=== PATIENT | male | born 1955 | race Caucasian/White ===

== ENCOUNTER → 2016-06-07 | Outpatient (CLI) | payer OTHER ==
[~2016-06-07] MED LIST: ADAL40KI SQ; FERR1TAB23 PO; MELO7.5T6 PO; POTA10CA28 PO
[2016-06-07 13:50] LABS: HEMATOCRIT 17.3 % (42-52); MEAN CELL VOLUME 77.9 fL (80-100); MEAN CORPUSCULAR HEMOGLOBIN 23.9 pg (25-34); MEAN CORPUSCULAR HGB CONC 30.6 g/dl (32-36); MEAN PLATELET VOLUME 9.2 fL (7.4-10.4); PLATELET COUNT 78 K/uL (130-400); RED BLOOD COUNT 2.22 M/uL (4.7-6.1); WHITE BLOOD COUNT 3.04 K/uL (4.8-10.8)
[2016-06-07 14:15] LABS: BASO % 0.7 %; BASO ABS # 0.02 K/uL (0-0.2); COMPLETE YES; EOS % 4.3 %; GIANT PLATELETS 1+; HYPOCHROMIA PRESENT; LARGE PLATELETS 2+; LYMPH % 31.3 %; LYMPH ABS # 0.95 K/uL (1.2-3.4); MONO % 19.4 %; NEUT % 44.3 %; PLT ESTIMATE DECREASED; POLYCHROMASIA 1+; TOXIC GRANULATION 1+
== END | disposition home or self-care (01) ==
LOC: C.LABPBG 08:55
PROVIDERS: ATTEND Urology
DX: D64.9 Anemia, unspecified (principal); N20.0 Calculus of kidney; N35.9 Urethral stricture, unspecified; R33.9 Retention of urine, unspecified

== ENCOUNTER → 2016-08-02 | Day surgery (SDC) | payer OTHER ==
[2016-07-26 12:36] VITALS: Ht 175.3 cm; Wt 125.0 kg
[~2016-08-02] VITALS: Ht 175.3 cm; Wt 125.0 kg
[~2016-08-02] MED LIST changes: +ACETAMINOPHEN 325 MG TAB PO PRN; +AMVISC PLUS 0.8ML SYRINGE INT OCU ONE; +ATROPINE SULFATE 0.1 MG/ML 5ML SYR IV PRN; +BSS FLUSH ONE; +EpHEDrine SULFATE INJ 50 MG/ML AMP IV PRN; +EpINEphrine INJ 1MG/ML AMP 1 MG/ML AMP ONE; +LACTATED RINGER'S 1000ML 500 ML IV SCH; +LIDOCAINE 3.5% OPH GEL PER APPLICATION CHARGE ONE; +LIDOCAINE HCL 1% MPF 2 ML VIAL ONE; +MIDAZOLAM HCL 1 MG/ML 2ML VIAL ONE; +PHENYLEPHRINE HCL 10% OP SOLN PER DROP CHARGE OPL SCH; +POVIDONE-IODINE OP SOLN 30 ML BTL ONE; +PROPARACAINE 0.5% OP SOLN PER DROP CHARGE OPL SCH; +TOBRAMYCIN/DEXAMETHASONE OPH OINT PER APPLN CHARGE ONE
[2016-08-02] MEDS: CYCLOPENTOLATE HCL 1% OP SOLN PER DROP CHARGE OPL SCH ×2 (07:20→07:36)
[2016-08-02] MEDS: KETOROLAC 0.5% OP SOLN PER DROP CHARGE OPL SCH ×2 (07:20→07:38)
[2016-08-02] MEDS: GATIFLOXACIN OP SOLN PER DROP CHARGE OPL SCH ×2 (07:20→07:30)
[2016-08-02] MEDS: TROPICAMIDE 1% OP SOLN PER DROP CHARGE OPL SCH ×2 (07:20→07:36)
[2016-08-02] MEDS: PHENYLEPHRINE HCL 2.5% OP SOLN PER DROP CHARGE OPL SCH ×2 (07:20→07:36)
--- NOTE | 2016-08-02 07:44 | History & Physical Bridge - [place] ---
H&P Re-Evaluation Bridge Note: I have examined the patient, reviewed the History & Physical and in the interval since the performance of the History & Physical I have noted the following changes of clinical significance: No changes noted
--- NOTE | 2016-08-02 08:08 | Discharge Instructions-SurgCtr ---
Discharge Instructions Date of Service Aug 02, 2016. Visit Reason for Visit: Left Cataract Discharge Discharge Diagnosis / Problem: cataract Discharge Goals Goal(s): Improve function Activity Recommendations Activity Limitations: per Instructions/Follow-up section Anesthesia . Post Anesthesia Instructions: If you have had General Anesthesia or IV Sedation: * Do not drive today. * Resume driving when surgeon permits. * Do not make important decisions or sign legal documents today. * Call surgeon for: 1. Temperature elevations greater than 101 degrees F. 2. Uncontrollable pain. 3. Excessive bleeding. 4. Persistent nausea and vomiting. 5. Medication intolerance (nausea, vomiting or rash). * For nausea and vomiting use only clear liquids such as: tea, soda, bouillon until nausea subsides, then gradually increase diet as tolerated. * If you have any concerns or questions, call your surgeon's office. If physician is unavailable and it is an emergency, call 911 or go to the nearest emergency room. . Instructions / Follow-Up Instructions / Follow-Up ACTIVITY RECOMMENDATIONS: * No strenuous lifting, jogging or running for 4 days * No swimming or yard work for 1 week. * Limited bending is permitted, such as putting on shoes. RETURN TO SCHOOL/WORK: No work until seen by physician in office. MEDICATIONS: Resume previous medications unless instructed otherwise by your surgeon. This includes eye drops for glaucoma. Zymaxid/Gatifloxacin (de luna cap) - one drop every 2 hours until bedtime Nevanac/Ilevro/Prolensa/Ketorolac (goldberg cap) - one drop every 4 hours until bedtime Prednisolone (white/pink cap, SHAKE WELL) - one drop every 2 hours until bedtime Starting tomorrow - all 3 drops every 4 hours until seen in the office Optive drops - as needed for discomfort SPECIAL CARE INSTRUCTIONS: * Wear eyeshield when sleeping, for four nights. * You may wear your own glasses or sunglasses while awake. * You may read or watch TV * You may shower and wash your face, but be gentle around the eye and pat dry. * Blurry vision and mild irritation are normal. * Call office if pain is more severe or vision becomes dark at . FOLLOW UP VISIT: Follow-up with Dr Guevara tomorrow. Diet Recommendations Home Diet: resume previous diet Procedures Procedures Performed: Left Cataract Phacoemulsification With Intraocular Lens Implant Pending Studies Studies pending at discharge: no Medical Emergencies . Who to Call and When: Medical Emergencies: If at any time you feel your situation is an emergency, please call 911 immediately. . Non-Emergent Contact Non-Emergency issues call your: Graduation Coach . . "Provider Documentation" section prepared by Dirk Guevara. .
--- NOTE | 2016-08-02 08:09 | [facility] Operative Report ---
Operative Report Date of Service Aug 02, 2016. Operative Report 1. PREOPERATIVE DIAGNOSIS: Cataract of the left eye. 2. POSTOPERATIVE DIAGNOSIS: Same. 3. PROCEDURE: Phacoemulsification with intraocular lens implantation of the left eye. SURGEON: Dr. Dirk Guevara. ANESTHESIA: Topical Lidocaine gel, 1% Non- Preserved intracameral Lidocaine, and monitored intravenous sedation. INDICATIONS FOR THE PROCEDURE: The patient is a 61 - year-old male with a history of cataract of the left eye causing significant visual impairment. The details of the proposed procedure were explained to the patient who asked appropriate questions and following discussion of all risks, benefits and alternatives agreed to have the procedure done. 4. OPERATION AND FINDINGS: DESCRIPTION OF PROCEDURE: After informed consent was obtained, the patient was brought to the Operating Room at the [facility]. The patient was placed in a supine position and then the left eye was prepped and draped in the usual sterile fashion for intraocular surgery. A drop of topical Lidocaine gel was placed in the operative eye. A wire lid speculum was then placed in the fornices. A corneal paracentesis was then created temporally. The Non-Preserved Lidocaine was then instilled into the anterior chamber. The anterior chamber was then pressurized with viscoelastic. A 2.0 mm clear corneal incision was then created temporally. A cystotome was inserted into the anterior chamber and used to create a tear in the anterior lens capsule. This capsular tear was then used to create a small flap and the flap was dragged in a counterclockwise direction in order to create a continuous curvilinear capsulorrhexis. Hydrodissection was accomplished with balanced salt solution. Phacoemulsification of the lens nucleus was then performed in a standard [id number] technique. The phaco time was 14 seconds with an average power of 9 %. The remaining cortical material was removed using irrigation aspiration. The capsular bag was then filled with viscoelastic. A Bausch & Lomb MI60L +22.0 diopters lens was then loaded into the injector and injected into the capsular bag. The remaining viscoelastic was removed with the irrigation aspiration handpiece. The wound was hydrated and then checked and found to be watertight. The intraocular pressure was checked and found to be adequate. The wire lid speculum was removed and the patient's face was cleaned and dried. TobraDex ointment was placed in the inferior fornix. The patient was discharged to the Recovery Room having tolerated the procedure well. There were no complications. The patient will be seen tomorrow in the office for follow-up. I attest to the content of the Intraoperative Record and any orders documented therein. Any exceptions are noted below.
[2016-08-02 08:43] VITALS: BP 157/82; PULSE 65; TEMP 36.7; O2SAT 98
--- NOTE | 2016-08-02 09:15 | Anesthesia Progress Nt - [facility] ---
Anesthesia Post Op Note Date & Time Aug 02, 2016 at 09:15 Vital Signs Pain Intensity: 0 Vital Signs Past 12 Hours Date Time Temp Pulse Resp B/P (MAP) Pulse Ox O2 Delivery O2 Flow Rate FiO2 08/02/16 08:43 36.7 65 16 157/82 (107) 98 Room Air 08/02/16 08:12 36.7 75 14 146/79 (101) 99 Room Air 08/02/16 07:02 36.9 79 16 159/92 (114) 98 Room Air Notes Mental Status: alert / awake / arousable, participated in evaluation Pt Amnestic to Procedure: Yes Nausea / Vomiting: adequately controlled Pain: adequately controlled Airway Patency, RR, SpO2: stable & adequate BP & HR: stable & adequate Hydration State: stable & adequate Anesthetic Complications: no major complications apparent
== END | disposition home or self-care (01) ==
LOC: X.SURG 06:31
PROVIDERS: ATTEND Ophthalmology
DX: H26.9 Unspecified cataract (principal); K74.60 Unspecified cirrhosis of liver; M06.9 Rheumatoid arthritis, unspecified; K21.9 Gastro-esophageal reflux disease without esophagitis; D64.9 Anemia, unspecified; M19.90 Unspecified osteoarthritis, unspecified site; Z79.899 Other long term (current) drug therapy

== ENCOUNTER → 2016-08-13 | Outpatient (CLI) | payer OTHER ==
--- NOTE | 2016-08-02 08:12 | Anesthesia Progress Nt - [facility] ---
Anesthesia Post Op Note Date & Time Aug 02, 2016 at 08:12 Notes Mental Status: alert / awake / arousable, participated in evaluation Pt Amnestic to Procedure: Yes Nausea / Vomiting: adequately controlled Pain: adequately controlled Airway Patency, RR, SpO2: stable & adequate BP & HR: stable & adequate Hydration State: stable & adequate Anesthetic Complications: no major complications apparent
[~2016-08-13] MED LIST changes: -ACETAMINOPHEN 325 MG TAB PO PRN; -AMVISC PLUS 0.8ML SYRINGE INT OCU ONE; -ATROPINE SULFATE 0.1 MG/ML 5ML SYR IV PRN; -BSS FLUSH ONE; -EpHEDrine SULFATE INJ 50 MG/ML AMP IV PRN; -EpINEphrine INJ 1MG/ML AMP 1 MG/ML AMP ONE; -LACTATED RINGER'S 1000ML 500 ML IV SCH; -LIDOCAINE 3.5% OPH GEL PER APPLICATION CHARGE ONE; -LIDOCAINE HCL 1% MPF 2 ML VIAL ONE; -MIDAZOLAM HCL 1 MG/ML 2ML VIAL ONE; -PHENYLEPHRINE HCL 10% OP SOLN PER DROP CHARGE OPL SCH; -POVIDONE-IODINE OP SOLN 30 ML BTL ONE; -PROPARACAINE 0.5% OP SOLN PER DROP CHARGE OPL SCH; -TOBRAMYCIN/DEXAMETHASONE OPH OINT PER APPLN CHARGE ONE
--- NOTE | 2016-08-13 14:01 | DIAGNOSTIC IMAGING REPORT ---
VOIDING CYSTOURETHROGRAM CLINICAL HISTORY: R33.9ureteral stricture COMPARISON STUDY: None FLUOROSCOPY TIME: 0.2 minutes. FINDINGS: Patient by history has had prior reconstructive surgery and/or prior urethrograms at outside institution. These are not available for comparison. Study is performed via the patient's suprapubic catheter. There is mild reflux of the right to lesser extent left ureter. The proximal and prosthetic portion of the ureter is unremarkable. The findings of mild irregularity of the bulbous portion of the urethra possibly with a diverticulum as juncture with the patient now component of the regional. The urethral contrast column is small which may be secondary to a low flow state and/or post structural change. IMPRESSION: 1. Small caliber urethra possibly secondary to a mid urethral and/or immediate post bulbar stricture. 2. Possible small diverticulum of the distal bulbar urethra. 3. Mild irregularity of the contrast column of the bulbous portion of the of the urethra. 4. Mild vesicoureteral reflux on the right and to a lesser extent left. Electronically signed by: Rob Hummel M.D. 08/13/2016 1:59 PM Dictated Date/Time: 08/13/2016 1:51 PM
== END | disposition home or self-care (01) ==
LOC: C.RAD 12:21
PROVIDERS: ATTEND Urology
DX: R33.9 Retention of urine, unspecified (principal); N35.9 Urethral stricture, unspecified; N39.0 Urinary tract infection, site not specified

== ENCOUNTER → 2016-09-11 | Day surgery (SDC) | payer OTHER ==
[2016-08-15 11:03] VITALS: Ht 175.3 cm; Wt 125.0 kg
[~2016-09-11] VITALS: Ht 175.3 cm; Wt 125.0 kg
[~2016-09-11] MED LIST changes: +500ML BSS 0.3ML EPI 1:1000PF IRRIG ONE; +ACETAMINOPHEN 325 MG TAB PO PRN; +AMVISC PLUS 0.8ML SYRINGE INT OCU ONE; +ATROPINE SULFATE 0.1 MG/ML 5ML SYR IV PRN; +BSS FLUSH ONE; +EpHEDrine SULFATE INJ 50 MG/ML AMP IV PRN; +EpINEphrine INJ 1MG/ML AMP 1 MG/ML AMP ONE; +LACTATED RINGER'S 1000ML 500 ML IV SCH; +LIDOCAINE 3.5% OPH GEL PER APPLICATION CHARGE ONE; +LIDOCAINE HCL 1% MPF 2 ML VIAL ONE; +MIDAZOLAM HCL 1 MG/ML 2ML VIAL ONE; +MIX: 4ML BSS 1ML EPI 1:1000 PF INSTIL ONE; +OCUCOAT 1 ML SOLN IO ONE; +ONDANSETRON INJ 2 MG/ML 2 ML VIAL IV PRN; +PHENYLEPHRINE HCL 10% OP SOLN PER DROP CHARGE OPR SCH; +POVIDONE-IODINE OP SOLN 30 ML BTL ONE; +PROPARACAINE 0.5% OP SOLN PER DROP CHARGE OPR SCH; +TOBRAMYCIN/DEXAMETHASONE OPH OINT PER APPLN CHARGE ONE
[2016-09-11] MEDS: PHENYLEPHRINE HCL 2.5% OP SOLN PER DROP CHARGE OPR SCH ×2 (12:02→12:08)
[2016-09-11] MEDS: TROPICAMIDE 1% OP SOLN PER DROP CHARGE OPR SCH ×2 (12:03→12:09)
[2016-09-11] MEDS: CYCLOPENTOLATE HCL 1% OP SOLN PER DROP CHARGE OPR SCH ×2 (12:04→12:10)
[2016-09-11] MEDS: KETOROLAC 0.5% OP SOLN PER DROP CHARGE OPR SCH ×2 (12:05→12:11)
[2016-09-11] MEDS: GATIFLOXACIN OP SOLN PER DROP CHARGE OPR SCH ×2 (12:06→12:18)
--- NOTE | 2016-09-11 13:23 | Discharge Instructions-SurgCtr ---
Discharge Instructions Date of Service Sep 11, 2016. Visit Reason for Visit: Cataract Right Eye Discharge Discharge Diagnosis / Problem: cataract Discharge Goals Goal(s): Improve function Activity Recommendations Activity Limitations: per Instructions/Follow-up section Anesthesia . Post Anesthesia Instructions: If you have had General Anesthesia or IV Sedation: * Do not drive today. * Resume driving when surgeon permits. * Do not make important decisions or sign legal documents today. * Call surgeon for: 1. Temperature elevations greater than 101 degrees F. 2. Uncontrollable pain. 3. Excessive bleeding. 4. Persistent nausea and vomiting. 5. Medication intolerance (nausea, vomiting or rash). * For nausea and vomiting use only clear liquids such as: tea, soda, bouillon until nausea subsides, then gradually increase diet as tolerated. * If you have any concerns or questions, call your surgeon's office. If physician is unavailable and it is an emergency, call 911 or go to the nearest emergency room. . Instructions / Follow-Up Instructions / Follow-Up ACTIVITY RECOMMENDATIONS: * No strenuous lifting, jogging or running for 4 days * No swimming or yard work for 1 week. * Limited bending is permitted, such as putting on shoes. RETURN TO SCHOOL/WORK: No work until seen by physician in office. MEDICATIONS: Resume previous medications unless instructed otherwise by your surgeon. This includes eye drops for glaucoma. Zymaxid/Gatifloxacin (de luna cap) - one drop every 2 hours until bedtime Nevanac/Ilevro/Prolensa/Ketorolac (goldberg cap) - one drop every 4 hours until bedtime Prednisolone/Durezol (white/pink cap, SHAKE WELL) - one drop every 2 hours until bedtime Starting tomorrow - all 3 drops every 4 hours until seen in the office Optive drops - as needed for discomfort SPECIAL CARE INSTRUCTIONS: * Wear eyeshield when sleeping, for four nights. * You may wear your own glasses or sunglasses while awake. * You may read or watch TV * You may shower and wash your face, but be gentle around the eye and pat dry. * Blurry vision and mild irritation are normal. * Call office if pain is more severe or vision becomes dark at . FOLLOW UP VISIT: Follow-up with Dr Guevara tomorrow. Diet Recommendations Home Diet: resume previous diet Procedures Procedures Performed: Right Cataract Phacoemulsification With Intraocular Lens Implant Pending Studies Studies pending at discharge: no Medical Emergencies . Who to Call and When: Medical Emergencies: If at any time you feel your situation is an emergency, please call 911 immediately. . Non-Emergent Contact Non-Emergency issues call your: Rack Loader . . "Provider Documentation" section prepared by Dirk Guevara. .
--- NOTE | 2016-09-11 13:24 | [facility] Operative Report ---
Operative Report Date of Service Sep 11, 2016. Operative Report 1. PREOPERATIVE DIAGNOSIS: Cataract of the right eye. 2. POSTOPERATIVE DIAGNOSIS: Same. 3. PROCEDURE: Phacoemulsification with intraocular lens implantation of the right eye. SURGEON: Dr. Dirk Guevara. ANESTHESIA: Topical Lidocaine gel, 1% Non- Preserved intracameral Lidocaine, and monitored intravenous sedation. INDICATIONS FOR THE PROCEDURE: The patient is a 61 - year-old male with a history of cataract of the right eye causing significant visual impairment. The details of the proposed procedure were explained to the patient who asked appropriate questions and following discussion of all risks, benefits and alternatives agreed to have the procedure done. 4. OPERATION AND FINDINGS: DESCRIPTION OF PROCEDURE: After informed consent was obtained, the patient was brought to the Operating Room at the [facility]. The patient was placed in a supine position and then the right eye was prepped and draped in the usual sterile fashion for intraocular surgery. A drop of topical Lidocaine gel was placed in the operative eye. A wire lid speculum was then placed in the fornices. A corneal paracentesis was then created temporally. The Non-Preserved Lidocaine was then instilled into the anterior chamber. The anterior chamber was then pressurized with viscoelastic. A 2.0 mm clear corneal incision was then created temporally. A cystotome was inserted into the anterior chamber and used to create a tear in the anterior lens capsule. This capsular tear was then used to create a small flap and the flap was dragged in a counterclockwise direction in order to create a continuous curvilinear capsulorrhexis. Hydrodissection was accomplished with balanced salt solution. Phacoemulsification of the lens nucleus was then performed in a standard [id number] technique. The phaco time was 13 seconds with an average power of 11 %. The remaining cortical material was removed using irrigation aspiration. The capsular bag was then filled with viscoelastic. A Bausch & Lomb MI60L +22.5 diopters lens was then loaded into the injector and injected into the capsular bag. The remaining viscoelastic was removed with the irrigation aspiration handpiece. The wound was hydrated and then checked and found to be watertight. The intraocular pressure was checked and found to be adequate. The wire lid speculum was removed and the patient's face was cleaned and dried. TobraDex ointment was placed in the inferior fornix. The patient was discharged to the Recovery Room having tolerated the procedure well. There were no complications. The patient will be seen tomorrow in the office for follow-up. I attest to the content of the Intraoperative Record and any orders documented therein. Any exceptions are noted below.
[2016-09-11 13:25] VITALS: TEMP 36.9
--- NOTE | 2016-09-11 13:32 | Anesthesia Progress Nt - [facility] ---
Anesthesia Post Op Note Date & Time Sep 11, 2016 at 13:31 Vital Signs Pain Intensity: 0 Vital Signs Past 12 Hours Date Time Temp Pulse Resp B/P (MAP) Pulse Ox O2 Delivery O2 Flow Rate FiO2 09/11/16 11:56 36.7 70 22 107/63 (78) 97 Room Air Notes Mental Status: alert / awake / arousable, participated in evaluation Pt Amnestic to Procedure: Yes Nausea / Vomiting: adequately controlled Pain: adequately controlled Airway Patency, RR, SpO2: stable & adequate BP & HR: stable & adequate Hydration State: stable & adequate Anesthetic Complications: no major complications apparent
[2016-09-11 13:48] VITALS: BP 127/80; PULSE 65; O2SAT 98
== END | disposition home or self-care (01) ==
LOC: X.SURG 10:33
PROVIDERS: ATTEND Ophthalmology
DX: H26.9 Unspecified cataract (principal); I10 Essential (primary) hypertension; M48.00 Spinal stenosis, site unspecified; Z87.442 Personal history of urinary calculi

== ENCOUNTER → 2016-09-13 | Outpatient (CLI) | payer OTHER ==
[~2016-09-13] MED LIST changes: -500ML BSS 0.3ML EPI 1:1000PF IRRIG ONE; -ACETAMINOPHEN 325 MG TAB PO PRN; -AMVISC PLUS 0.8ML SYRINGE INT OCU ONE; -ATROPINE SULFATE 0.1 MG/ML 5ML SYR IV PRN; -BSS FLUSH ONE; -EpHEDrine SULFATE INJ 50 MG/ML AMP IV PRN; -EpINEphrine INJ 1MG/ML AMP 1 MG/ML AMP ONE; -LACTATED RINGER'S 1000ML 500 ML IV SCH; -LIDOCAINE 3.5% OPH GEL PER APPLICATION CHARGE ONE; -LIDOCAINE HCL 1% MPF 2 ML VIAL ONE; -MIDAZOLAM HCL 1 MG/ML 2ML VIAL ONE; -MIX: 4ML BSS 1ML EPI 1:1000 PF INSTIL ONE; -OCUCOAT 1 ML SOLN IO ONE; -ONDANSETRON INJ 2 MG/ML 2 ML VIAL IV PRN; -PHENYLEPHRINE HCL 10% OP SOLN PER DROP CHARGE OPR SCH; -POVIDONE-IODINE OP SOLN 30 ML BTL ONE; -PROPARACAINE 0.5% OP SOLN PER DROP CHARGE OPR SCH; -TOBRAMYCIN/DEXAMETHASONE OPH OINT PER APPLN CHARGE ONE
== END | disposition home or self-care (01) ==
LOC: C.LABSPEC 14:29
PROVIDERS: ATTEND Urology
DX: N39.0 Urinary tract infection, site not specified (principal)

== ENCOUNTER 2017-03-17 22:44 | Emergency (ER) | payer OTHER ==
[~2017-03-17] VITALS: Ht 172.7 cm; Wt 106.1 kg
[~2017-03-17 22:44] MED LIST changes: +CHLO0.122 PO; +SULF800T23 PO
[2017-03-17 22:48] VITALS: TEMP 36.7; Ht 172.7 cm; Wt 106.1 kg
[2017-03-17] MEDS ORDERED: SODIUM CHLORIDE 0.9% 500ML 500 ML IV STA (23:09)
[2017-03-17] MEDS ORDERED: SENN-65 PO (23:10)
[2017-03-17] MEDS ORDERED: OXYC1TAB3 PO (23:11)
[2017-03-17] MEDS ORDERED: CALC-51 PO (23:13)
[2017-03-17] MEDS ORDERED: ADAL20KI INJ (23:14)
[2017-03-17] MEDS ORDERED: PRLSR20 PO (23:14)
[2017-03-17] MEDS ORDERED: MELO15TA4 PO (23:15)
[2017-03-17] MEDS ORDERED: FRS/40 PO (23:15)
[2017-03-17] MEDS ORDERED: LISI-729 PO (23:15)
[2017-03-17] MEDS ORDERED: TRAM-10 PO (23:16)
[2017-03-17] MEDS ORDERED: POTA10CA28 PO (23:23)
--- NOTE | 2017-03-17 23:46 | EMERGENCY ROOM VISIT NOTE ---
History Report prepared by Kylie: Mary Del Toro Under the Supervision of: Dr. Lili Cruz M.D. First contact with patient: 22:51 Chief Complaint: CATHETER REPLACEMENT Stated Complaint: S/P SURGERY, CATHETER IS BLOCKED History of Present Illness The patient is a 61 year old male who presents to the Emergency Room with complaints of episodic catheter obstruction for seven hours. The patient recently had a urethroplasty March 06, 2017. He had the surgery because he was having difficulty urinating. He stated his urethra was obstructed by scar tissue and needed reconstruction. He has a suprapubic tube and a Madrigal catheter in place and states that he is unable to fully void. He states that it was draining normally 7 hours ago and has not been draining well since then. He feels pressure building up from his catheter. He notes mild abdominal pain. He currently rates his discomfort a 3/10 in severity. He notes that he is expected to have the tubes removed March 27, 2017. He denies any fevers. Source of History: patient Onset: seven hours Position: other (global ) Symptom Intensity: 3/10 Quality: other (catheter obstruction) Timing: other (episodic ) Associated Symptoms: + abdominal pain (mild), No fevers Note: He notes pressure build up due to the catheter. Review of Systems See HPI for pertinent positives & negatives. A total of 10 systems reviewed and were otherwise negative. Past Medical & Surgical Medical Problems: (1) urethroplasty Family History Family history was reviewed; no changes noted. Social History Smoking Status: Current Every Day Smoker Smokeless Tobacco Use: Yes Alcohol Use: occasionally Marital Status: Housing Status: lives with significant other Occupation Status: unemployed Current/Historical Medications Scheduled Adalimumab (Humira), INJ twice monthly Chlorhexidine Gluconate (Mouth (Periogard), 15 ML PO Q4 Ferrous Sulfate (Iron), 1 TAB PO DAILY Furosemide (Lasix), 40 MG PO DAILY Lisinopril (Prinivil), 5 MG PO DAILY Meloxicam (Mobic), 15 MG PO DAILY Omeprazole (Prilosec), 20 MG PO DAILY Potassium Chloride (Micro-K Ext Rel), 10 MEQ PO DAILY Senna/Docusate Sod (Senokot S), 1 TAB PO DAILY Sulfa/Trimethoprim (Bactrim Ds 800MG/160MG), 1 TAB PO DAILY Allergies Coded Allergies: Tamsulosin (Verified Allergy, Mild, HIVES, 03/17/17) Physical Exam Vital Signs Date Time Temp Pulse Resp B/P (MAP) Pulse Ox O2 Delivery O2 Flow Rate FiO2 03/18/17 00:51 85 16 112/59 100 03/17/17 22:48 36.7 112 16 103/70 100 Room Air Physical Exam Vital signs reviewed. General: Elderly-appearing, in no significant distress. Obese. HEENT: No scleral icterus, PERRLA, neck supple. Atraumatic. Cardiovascular: Regular rate and rhythm, no extra sounds. Pulmonary: Clear to auscultation bilaterally, normal work of breathing. Abdomen: Soft, nontender, nondistended, positive bowel sounds. Suprapubic catheter in pannicular fold. Musculoskeletal: Atraumatic, no peripheral edema. Neurologic: Patient awake alert and oriented x 3. Skin: Warm, dry, no rash : Normal external male genitalia. Circumcised. No discharge or lesions appreciated. Testes palpated bilaterally and nontender. No swelling to the scrotum appreciated. Madrigal catheter in place, which is clamped. Medical Decision & Procedures Laboratory Results 03/17/17 23:26 Red Blood Count 2.93, Mean Corpuscular Volume 96.6, Mean Corpuscular Hemoglobin 32.8, Mean Corpuscular Hemoglobin Concent 33.9, Mean Platelet Volume 9.0, Neutrophils (%) (Auto) 51.6, Lymphocytes (%) (Auto) 30.3, Monocytes (%) (Auto) 12.2, Eosinophils (%) (Auto) 5.3, Basophils (%) (Auto) 0.4, Neutrophils # (Auto ) 2.31, Lymphocytes # (Auto) 1.36, Monocytes # (Auto) 0.55, Eosinophils # (Auto ) 0.24, Basophils # (Auto) 0.02 03/17/17 23:26 Test 03/17/17 23:26 03/17/17 23:45 White Blood Count 4.49 K/uL (4.8-10.8) Red Blood Count 2.93 M/uL (4.7-6.1) Hemoglobin 9.6 g/dL (14.0-18.0) Hematocrit 28.3 % (42-52) Mean Corpuscular Volume 96.6 fL (80-100) Mean Corpuscular Hemoglobin 32.8 pg (25-34) Mean Corpuscular Hemoglobin Concent 33.9 g/dl (32-36) Platelet Count 87 K/uL (130-400) Mean Platelet Volume 9.0 fL (7.4-10.4) Neutrophils (%) (Auto) 51.6 % Lymphocytes (%) (Auto) 30.3 % Monocytes (%) (Auto) 12.2 % Eosinophils (%) (Auto) 5.3 % Basophils (%) (Auto) 0.4 % Neutrophils # (Auto) 2.31 K/uL (1.4-6.5) Lymphocytes # (Auto) 1.36 K/uL (1.2-3.4) Monocytes # (Auto) 0.55 K/uL (0.11-0.59) Eosinophils # (Auto) 0.24 K/uL (0-0.5) Basophils # (Auto) 0.02 K/uL (0-0.2) RDW Standard Deviation 51.2 fL (36.4-46.3) RDW Coefficient of Variation 14.4 % (11.5-14.5) Immature Granulocyte % (Auto) 0.2 % Immature Granulocyte # (Auto) 0.01 K/uL (0.00-0.02) Platelet Estimate DECREASED Anion Gap 8.0 mmol/L (3-11) Est Creatinine Clear Calc Drug Dose 54.8 ml/min Estimated GFR () 50.8 Estimated GFR (Non- 43.8 BUN/Creatinine Ratio 11.6 (10-20) Calcium Level 8.9 mg/dl (8.5-10.1) Total Bilirubin 0.5 mg/dl (0.2-1) Direct Bilirubin 0.2 mg/dl (0-0.2) Aspartate Amino Transf (AST/SGOT) 32 U/L (15-37) Alanine Aminotransferase (ALT/SGPT) 31 U/L (12-78) Alkaline Phosphatase 100 U/L (45-117) Total Protein 6.5 gm/dl (6.4-8.2) Albumin 2.5 gm/dl (3.4-5.0) Urine Color DK YELLOW Urine Appearance CLOUDY (CLEAR) Urine pH 6.0 (4.5-7.5) Urine Specific [place] 1.024 (1.000-1.030) Urine Protein TRACE (NEG) Urine Glucose (UA) NEG (NEG) Urine Ketones TRACE (NEG) Urine Occult Blood 1+ (NEG) Urine Nitrite NEG (NEG) Urine Bilirubin NEG (NEG) Urine Urobilinogen NEG (NEG) Urine Leukocyte Esterase LARGE (NEG) Urine WBC (Auto) >30 /hpf (0-5) Urine RBC (Auto) 0-4 /hpf (0-4) Urine Hyaline Casts (Auto) 1-5 /lpf (0-5) Urine Epithelial Cells (Auto) 10-20 /lpf (0-5) Urine Bacteria (Auto) NEG (NEG) Urine Yeast (Auto) BUD W/ HYPHAE (NONE PRSENT) Laboratory results per my review. Medications Administered Medications (Trade) Dose Ordered Sig/Min Route Start Time Stop Time Status Last Admin Dose Admin Sodium Chloride 500 ml @ 999 mls/hr Q31M STAT IV 03/17/17 23:09 03/17/17 23:39 DC 03/17/17 23:39 999 MLS/HR ED Course 2253: Past medical records reviewed. The patient was evaluated in room C8. A complete history and physical examination was performed. 2309: Ordered 500 ml @ 999 mls/hr IV 0025: I reassessed the patient at this time. He is was able to void urine without issue. He is feeling better and resting comfortably. I discussed the results and treatment plan with the patient. I answered all pertaining questions that he had. He expressed understanding and verbalized agreement. The patient will be discharged home. Medical Decision The patient is a 61 year old male who presents to the ED with complaints of catheter obstruction. Differentials include UTI, dehydration, dysfunctional catheter, and renal failure This patient was evaluated and appeared to be in no significant distress. IV access was obtained and laboratory work was drawn. A bladder scan was performed without significant bladder distention. Patient's suprapubic catheter was irrigated and according to nursing staff this was accomplished without difficulty. Laboratory work reveals an acute on chronic renal insufficiency. Patient's medication list reveals a new prescription for Bactrim which she has been taking prophylactically since surgery as well as mobic and Lasix. I suspect the combination of the 3 medications has been hard on his renal function. The patient was advised to stop the mobic. The patient' s UA is questionable for infection. There are greater than 30 WBCs however this is from a suprapubic catheter that has been in for better than 3 years. The patient is afebrile and has a normal white blood cell count. He was hydrated with 500 mL of normal saline solution. As he has been on the Bactrim for 2 weeks, the UA will be sent for culture prior to any change in antibiotic regimen. The patient felt comfortable with this plan. He was feeling somewhat better at the time my reevaluation. He describes a "squishy" sensation near the suprapubic catheter, but this has been ongoing for some time. He does not feel that this is new today. I do not feel that imaging is warranted this evening. He will be discharged to care of his and will continue with catheter care. He will follow-up with urology by phone this week and return to the ER for worsening of symptoms or any medical concerns. Medication Reconcilliation Current Medication List: was personally reviewed by me Blood Pressure Screening Patient's blood pressure: Normal blood pressure Impression Primary Impression: Renal insufficiency Additional Impression: Complication of catheter Scribe Attestation The scribe's documentation has been prepared under my direction and personally reviewed by me in its entirety. I confirm that the note above accurately reflects all work, treatment, procedures, and medical decision making performed by me. Departure Information Dispostion Home / Self-Care Referrals Norris Truong PA-C (PCP) Forms HOME CARE DOCUMENTATION FORM, IMPORTANT VISIT INFORMATION Patient Instructions My [facility] Additional Instructions Diagnosis: Renal insufficiency, catheter complication Please drink plenty of clear fluids. Discontinue Mobic, at least short-term. Continue your medications otherwise as prescribed. Follow-up with urology this week for reevaluation. Return to the ER for worsening of symptoms or any medical concerns. Problem Qualifiers
[2017-03-18] LABS: ALBUMIN 2.5 gm/dl (3.4-5.0); CALCIUM 8.9 mg/dl (8.5-10.1); CREATININE 1.65 mg/dl (0.60-1.40); POTASSIUM 4.4 mmol/L (3.5-5.1)
[2017-03-18 00:03] LABS: TOTAL PROTEIN 6.5 gm/dl (6.4-8.2)
[2017-03-18 00:05] LABS: HEMATOCRIT 28.3 % (42-52); HEMOGLOBIN 9.6 g/dL (14.0-18.0); MEAN CELL VOLUME 96.6 fL (80-100); MEAN CORPUSCULAR HEMOGLOBIN 32.8 pg (25-34); MEAN CORPUSCULAR HGB CONC 33.9 g/dl (32-36); PLATELET COUNT 87 K/uL (130-400); RED CELL DISTRIBUTION WIDTH CV 14.4 % (11.5-14.5); RED CELL DISTRIBUTION WIDTH SD 51.2 fL (36.4-46.3); WHITE BLOOD COUNT 4.49 K/uL (4.8-10.8)
[2017-03-18 00:06] LABS: BASO % 0.4 %; BASO ABS # 0.02 K/uL (0-0.2); EOS % 5.3 %; EOS ABS # 0.24 K/uL (0-0.5); IG# 0.01 K/uL (0.00-0.02); LYMPH % 30.3 %; LYMPH ABS # 1.36 K/uL (1.2-3.4); MONO % 12.2 %; MONO ABS # 0.55 K/uL (0.11-0.59); NEUT % 51.6 %; NEUT ABS # 2.31 K/uL (1.4-6.5)
[2017-03-18 00:51] VITALS: BP 112/59; PULSE 85; O2SAT 100
== END 2017-03-18 01:07 | disposition home or self-care (01) ==
LOC: C.EDB 22:45 → C.EDC 03-18 01:07
DX: N28.9 Disorder of kidney and ureter, unspecified (principal); Z96.0 Presence of urogenital implants; Z79.899 Other long term (current) drug therapy; F17.200 Nicotine dependence, unspecified, uncomplicated

== ENCOUNTER 2017-04-04 15:55 | Inpatient (IN) | payer OTHER ==
[~2017-04-04] VITALS: Ht 172.7 cm; Wt 143.3 kg
[~2017-04-04 15:55] MED LIST changes: +ADAL20KI INJ; -ADAL40KI SQ; +FRS/40 PO; +LISI-729 PO; +MELO-84 PO; -MELO7.5T6 PO; +PRLSR20 PO; +SENN-65 PO
[2017-04-04] MEDS ORDERED: SODIUM CHLORIDE 0.9% 1000ML 1,000 ML IV ONE (16:08)
[2017-04-04] MEDS ORDERED: VANCOMYCIN INJ 2,000 MG in SODIUM CHLORIDE 0.9% 500ML 500 ML IV STA (16:20)
[2017-04-04] MEDS ORDERED: LEVAQUIN 750MG / 150ML D5W IV STA (16:20)
--- NOTE | 2017-04-04 16:24 | EMERGENCY ROOM VISIT NOTE ---
History Report prepared by Kylie: Nico Ham Under the Supervision of: Dr. Dc Foley D.O. First contact with patient: 16:05 Chief Complaint: FEVER Stated Complaint: FEVER AND SICK History of Present Illness The patient is a 61 year old male who presents to the Emergency Room with complaints of constant weakness that began two days ago. He rates his discomfort as an 8/10 in severity. The patient states that two days ago, he started to experience weakness and chest pain. He reports that over the last couple of days he started to develop a fever and experienced diarrhea. The patient states that he has also been experiencing a mild cough. He denies nausea , vomiting, rhinorrhea, leg swelling, and taking blood thinners. The patient states that he has a history of urinary difficulties, which he had reconstructive surgery of the urethra and a bladder stent placement for. He states that he is currently taking Bactrim from his recent surgery. The patient states that he has a suprapubic catheter. Source of History: patient Onset: two days ago Position: other (global) Symptom Intensity: 8/10 Timing: constant Associated Symptoms: + fevers, + cough, + chest pain, + diarrhea, No nausea , No vomiting Review of Systems See HPI for pertinent positives & negatives. A total of 10 systems reviewed and were otherwise negative. Past Medical & Surgical Medical Problems: (1) Sepsis (2) urethroplasty Family History Cancer Diabetes mellitus Heart disease Hypertension Kidney disease Kidney stones Lung disease Social History Smoking Status: Never Smoker Alcohol Use: occasionally Marital Status: Housing Status: lives with significant other Occupation Status: unemployed Current/Historical Medications Scheduled Adalimumab (Humira), 20 MG INJ twice monthly Chlorhexidine Gluconate (Mouth (Periogard), 15 ML PO Q4 Ferrous Sulfate (Iron), 1 TAB PO QAM Furosemide (Lasix), 40 MG PO QAM Lisinopril (Prinivil), 5 MG PO QAM Meloxicam (Mobic), 15 MG PO DAILY Omeprazole (Prilosec), 20 MG PO QAM Potassium Chloride (Micro-K Ext Rel), 10 MEQ PO HS Sulfa/Trimethoprim (Bactrim Ds 800MG/160MG), 1 TAB PO QAM Scheduled PRN Senna/Docusate Sod (Senokot S), 1 TAB PO DAILY PRN for Constipation Allergies Coded Allergies: Tamsulosin (Verified Allergy, Mild, HIVES, 2/8/18) Physical Exam Vital Signs Date Time Temp Pulse Resp B/P (MAP) Pulse Ox O2 Delivery O2 Flow Rate FiO2 04/04/17 18:48 38.2 123 20 74/35 94 Room Air 04/04/17 17:55 129 22 85/40 94 Room Air 04/04/17 17:40 135 22 104/38 93 Room Air 04/04/17 17:25 139 22 92/49 94 Room Air 04/04/17 17:21 104/47 04/04/17 17:10 38.1 140 22 104/47 95 Room Air 04/04/17 16:53 132 20 111/50 04/04/17 16:41 94 Room Air 04/04/17 16:40 131 22 97/45 96 Room Air 04/04/17 16:39 92/39 04/04/17 16:28 120 04/04/17 16:19 96/39 04/04/17 15:59 38.0 124 24 61/33 91 Room Air Physical Exam GENERAL: Patient is awake, alert, and in no acute distress. Patient is resting comfortably and showing no signs of anxiety EYES: The conjunctivae are clear. The pupils are round and reactive. EARS, NOSE, MOUTH AND THROAT: The nose is without any evidence of any deformity. Mucous membranes are moist tongue is midline NECK: The neck is nontender and supple. RESPIRATORY: Normal respiratory effort is noted there is no evidence of wheezing rhonchi or rales CARDIOVASCULAR: Regular rate and rhythm noted there no murmurs rubs or gallops normal S1 normal S2 GASTROINTESTINAL: The abdomen is soft. Bowel sounds are present in all quadrants. Abdomen is nontender PELVIS: The Pelvis is stable. No tenderness to palpation is noted. BACK: No midline tenderness or or step-off noted range of motion in flexion extension as well as rotation no signs of muscle spasm noted MUSCULOSKELETAL/EXTREMITIES: There is no evidence of gross deformity full range of motion is noted in the hips and shoulders SKIN: There is no obvious evidence of any rash. There are no petechiae, pallor or cyanosis noted. NEUROLOGIC: Patient is awake alert and oriented x3 strength is symmetric patellar reflexes are 2+ bilaterally Medical Decision & Procedures ER Provider Diagnostic Interpretation: Radiology results as stated below per my review and radiologist interpretation: CHEST ONE VIEW PORTABLE CLINICAL HISTORY: 61 years-old Male presenting with Sepsis. TECHNIQUE: Portable supine AP view of the chest was obtained. COMPARISON: None. FINDINGS: Atherosclerosis of aortic arch. Cardiac silhouette enlarged. Low lung volumes. Minimal bandlike opacities at the left lung base. Few nodular opacities at the right lung base. Pulmonary vascular prominence. Bronchial wall thickening. No large effusion or pneumothorax. Degenerative changes of the thoracic spine. Cholecystectomy clips noted. IMPRESSION: 1. Mildly low lung volumes with hypoventilatory changes. 2. Findings suggestive of volume overload and congestive change. No santino pulmonary edema. 3. No focal infiltrate to suggest pneumonia. Electronically signed by: Thaddeus Saavedra M.D. 04/04/2017 4:27 PM Dictated Date/Time: 04/04/2017 4:[address] SCAN OF THE ABDOMEN AND PELVIS WITHOUT IV CONTRAST CLINICAL HISTORY: Reported history of recent stents. Fever. COMPARISON STUDY: No priors. TECHNIQUE: CT scan of the abdomen and pelvis is performed from the lung bases to the proximal femora. Images are reviewed in the axial, sagittal, and coronal planes. IV contrast was not administered for this examination as per the referring clinician. Note that the examination was performed in suboptimal fashion without oral and IV contrast. A dose lowering technique was utilized adhering to the principles of ALARA. The examination is compromised by motion artifact. CT DOSE: 1919.98 mGy.cm FINDINGS: Lung bases: The heart is top normal in size and without pericardial effusion. There are trace pleural effusions with dependent atelectasis. There is a tiny hiatal hernia. Liver: The unenhanced liver appears mildly atrophic and heterogeneous in attenuation. Nodularity service contour is questioned. There is no intrahepatic biliary ductal dilatation. Gallbladder: Surgically absent noting clips in the gallbladder fossa. Spleen: The spleen is enlarged, measuring 17 cm in length. 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 Pancreas: The unenhanced pancreas is atrophic and grossly unremarkable. Adrenal glands: Unremarkable. Kidneys: The unenhanced kidneys demonstrate cortical atrophy. There is fullness of the renal collecting system bilaterally without clear evidence of hydronephrosis. There are no renal calculi identified. There is no evidence of contour deforming renal mass lesion. Nonspecific bilateral perinephric stranding is observed. Abdominal vasculature: The abdominal aorta is normal in course and caliber noting mild atherosclerotic calcification. Bowel: The small bowel and colon are normal in course and caliber. The appendix is not identified. Peritoneum: Nonspecific stranding is seen in the paracolic gutters bilaterally. Trace fluid is noted. No intraperitoneal free air is seen. Lymphadenopathy: None. Pelvic viscera: A suprapubic catheter is present within the bladder. The bladder wall is markedly thickened and there is significant pericystic inflammation. The prostate and seminal vesicles are normal as imaged. Skeletal structures: The skeletal structures are osteopenic. Mild to moderate lumbosacral spondylosis is observed. No lytic or blastic lesions are seen. IMPRESSION: 1. A suprapubic bladder catheter is in place. The bladder wall is thickened and there is significant pericystic inflammatory stranding. Correlate clinically and with urinalysis for evidence of cystitis. 2. There is mild fullness of the renal collecting system bilaterally without hydronephrosis. Bilateral perinephric stranding is nonspecific. Correlate clinically and with urinalysis for evidence of pyelonephritis. 3. The appearance of the liver suggests cirrhosis. 4. The spleen is enlarged. 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 5. Trace pleural effusions. 6. Additional findings as above. Electronically signed by: Edward Foreman M.D. 04/04/2017 5:16 PM Dictated Date/Time: 04/04/2017 5:09 PM Laboratory Results Test 04/04/17 16:15 04/04/17 16:38 04/04/17 16:39 04/04/17 18:22 Immature Granulocyte % (Auto) 2.3 % White Blood Count 16.86 K/uL (4.8-10.8) Red Blood Count 3.24 M/uL (4.7-6.1) Hemoglobin 10.3 g/dL (14.0-18.0) Hematocrit 30.5 % (42-52) Mean Corpuscular Volume 94.1 fL (80-100) Mean Corpuscular Hemoglobin 31.8 pg (25-34) Mean Corpuscular Hemoglobin Concent 33.8 g/dl (32-36) Platelet Count 62 K/uL (130-400) Mean Platelet Volume 9.6 fL (7.4-10.4) Neutrophils (%) (Auto) 90.0 % Lymphocytes (%) (Auto) 3.5 % Monocytes (%) (Auto) 4.1 % Eosinophils (%) (Auto) 0.0 % Basophils (%) (Auto) 0.1 % Neutrophils # (Auto) 15.18 K/uL (1.4-6.5) Lymphocytes # (Auto) 0.59 K/uL (1.2-3.4) Monocytes # (Auto) 0.69 K/uL (0.11-0.59) Eosinophils # (Auto) 0.00 K/uL (0-0.5) Basophils # (Auto) 0.02 K/uL (0-0.2) Immature Granulocyte # (Auto) 0.38 K/uL (0.00-0.02) Hyposegmented Neutrophils 1+ Toxic Granulation 1+ Dohle Bodies 1+ Erythrocyte Sedimentation Rate 42 mm/hr (0-14) Activated Partial Thromboplast Time 33.6 SECONDS (21.0-31.0) Partial Thromboplastin Ratio 1.3 Total Creatine Kinase 92 U/L (39-308) Creatine Kinase MB 1.8 ng/ml (0.5-3.6) Creatine Kinase MB Ratio 2.0 (0-3.0) C-Reactive Protein 12.40 mg/dl (0-0.29) Pro-B-Type Natriuretic Peptide 4759 pg/ml (0-900) Venous Blood pH 7.30 (7.36-7.41) Venous Blood Partial Pressure CO2 34 mmHg (38.0-50.0) Venous Blood Partial Pressure O2 32 mmHg Venous Blood HCO3 16 mmol/L Venous Blood Oxygen Saturation < 60.0 % Venous Blood Base Excess -9.4 mEq/L Influenza Type A Antigen Neg for Influ A (NEG) Influenza Type B Antigen Neg for Influ B (NEG) Urine Color DK YELLOW Urine Appearance TURBID (CLEAR) Urine pH 5.0 (4.5-7.5) Urine Specific [place] 1.018 (1.000-1.030) Urine Protein 2+ (NEG) Urine Glucose (UA) NEG (NEG) Urine Ketones NEG (NEG) Urine Occult Blood 3+ (NEG) Urine Nitrite NEG (NEG) Urine Bilirubin NEG (NEG) Urine Urobilinogen NEG (NEG) Urine Leukocyte Esterase LARGE (NEG) Urine WBC (Auto) >30 /hpf (0-5) Urine RBC (Auto) 10-30 /hpf (0-4) Urine Hyaline Casts (Auto) 5-10 /lpf (0-5) Urine Epithelial Cells (Auto) >30 /lpf (0-5) Urine Bacteria (Auto) 3+ (NEG) Urine Yeast (Auto) BUD W/ HYPHAE (NONE PRSENT) Date/Time Source Procedure Growth Status 04/04/17 00:00 Nasal MRSA DNA Surveillance Screen - Final Specimen Negative for MRSA by DNA Probe Complete Laboratory results per my review. Medications Administered Medications (Trade) Dose Ordered Sig/Min Route Start Time Stop Time Status Last Admin Dose Admin Sodium Chloride 1,000 ml @ 999 mls/hr Q1H1M ONCE IV 04/04/17 16:08 04/04/17 17:08 DC 04/04/17 16:08 999 MLS/HR Levofloxacin (Levaquin / D5W) 750 mg NOW STAT IV 04/04/17 16:20 04/04/17 16:21 DC 04/04/17 18:14 750 MG Vancomycin HCl 2000 mg/Sodium Chloride 540 ml @ 200 mls/hr ONE STAT IV 04/04/17 16:20 04/04/17 19:01 DC 04/04/17 16:53 200 MLS/HR Sodium Chloride 1,000 ml @ 999 mls/hr Q1H1M STAT IV 04/04/17 18:08 04/04/17 19:08 DC 04/04/17 18:08 999 MLS/HR Ketorolac Tromethamine (Toradol Inj) 30 mg NOW STAT IV 04/04/17 18:24 04/04/17 18:25 DC 04/04/17 18:29 30 MG Magnesium Sulfate (Magnesium Sulfate) 2 gm NOW STAT IV 04/04/17 18:51 04/04/17 18:52 DC 04/04/17 19:05 2 GM Norepinephrine Bitartrate 8 mg/ Dextrose 508 ml @ 0 mls/hr Q0M STAT IV 04/04/17 18:53 04/05/17 18:50 DC 04/04/17 19:14 10 MLS/HR Procedure Femoral Central Venous Catheter Indication: Sepsis Catheter Type: Triple Lumen Location: Right femoral vein Verbal consent was obtained after the risks and benefits were explained, including but not limited to intra-abdominal injury, vessel injury, bleeding, scarring, infection, pain, and bone/joint/nerve damage. At this time, the risks of the procedure are less than the risks of NOT performing the procedure. A time out was taken and the correct patient and site identified. The patient was placed in the supine position and the skin was prepped in the standard fashion with chlorhexidine and full sterile drapes applied. The proper landmarks were identified with ultrasound, anesthetized with 1% lidocaine without epinephrine, and the needle was inserted through the skin in the standard fashion. The needle was carefully advanced into blood vessel lumen. The guidewire was placed uneventfully. The vessel is dilated and the catheter was placed. It was sutured into position. There was good blood return from all ports. The patient tolerated the procedure well and there were no complications. ECG Indication: weakness Rate (beats per minute): 125 Rhythm: sinus tachycardia Findings: Q waves (Inferior), no ectopy, other (Low voltage throughout) Comparison ECG Date: no prior available Change: Patient's EKG was interpreted by me. ED Course 1607: The patient was evaluated in room B01. A complete history and physical examination were performed. 1608: Ordered Sodium Chloride 1000 ml @ 999 mls/hr IV. 1620: Ordered Vancomycin HCl 2000 mg/ Sodium Chloride 540 ml @ 200 mls/hr IV, Levofloxacin 750 mg IV. 1747: I performed a right femoral central line. 1808: Ordered Sodium Chloride 1000 ml @ 999 mls/hr IV. 1824: Ordered Toradol Injection 30 mg IV. 1838: I discussed the patients case with Dr. Cano, [facility] Hospitalist and Dr. Conroy, [facility] Bill Clerk. They understand the patients case and agree to accept the patient. The patient will be further evaluated. 1851: Ordered Magnesium Sulfate 2 gm IV. 1853: Ordered Norepinephrine Bitartrate 6 mg/ Dextrose 508 ml @ 9 mls/hr IV. Medical Decision Prior records/ancillary studies reviewed and summarized above. Nursing notes reviewed. Additional history obtained from family. Differential diagnosis: Etiologies such as metabolic, infection, hypo/hyperglycemia, electrolyte abnormalities, cardiac sources, intracerebral event, toxicologic, neurologic, sepsis, UTI, pneumonia, metabolic abnormalities, cardiac sources, intracerebral event, toxicologic, neurologic, as well as others were entertained. The patient is a 61-year-old male who presented to emergency department because of generalized illness. The patient had a fever as well as hypotension. He has a history of recent urologic manipulation and stenting because of bladder problems. The patient was treated with IV fluids and IV antibiotics in the emergency department. His blood pressure did not significantly improve. He was started on IV pressors. The patient was reevaluated multiple times. I discussed patient's laboratory and radiographic studies with him. I discussed his case with the on-call [facility] hospitalist group. I also discussed his case with the on-call general labor group. A call was placed to urology but no return call was received at change of shift. I reevaluated the patient and discussed his case with his significant other. The patient was feeling much better on subsequent reevaluation. Medication Reconcilliation Current Medication List: was personally reviewed by me Blood Pressure Screening Patient's blood pressure: Low blood pressure Consults Time Called: 1807 Consulting Physician[facility] Artem Daily Bill Clerk Returned Call: [phone] I discussed the patients case with Artem Murphy [facility] Hospitalist and Artem Daily Bill Clerk. They understand the patients case and agree to accept the patient. The patient will be further evaluated. Impression Primary Impression: Renal failure Additional Impressions: Sepsis Hypotension Pyelonephritis Hypomagnesemia Critical Care I have personally spent greater than 60 minutes of critical care time in the direct management of this patient. This includes bedside care, interpretation of diagnostic studies, and testing, discussion with consultants, patient, and family members, and other required patient management activities. This 60 minutes is in excess of all separately billable procedures. Scribe Attestation The scribe's documentation has been prepared under my direction and personally reviewed by me in its entirety. I confirm that the note above accurately reflects all work, treatment, procedures, and medical decision making performed by me. Departure Information Dispostion Being Evaluated By Hospitalist Referrals Norris Truong PA-C (PCP) Patient Instructions My [facility] Problem Qualifiers Primary Impression: Renal failure Renal failure chronicity: unspecified chronicity Qualified Codes: N19 - Unspecified kidney failure Additional Impressions: Sepsis Sepsis type: sepsis due to unspecified organism Qualified Codes: A41.9 - Sepsis, unspecified organism Hypotension Hypotension type: unspecified hypotension type Qualified Codes: I95.9 - Hypotension, unspecified
[2017-04-04 16:27] LABS: HEMATOCRIT 30.5 % (42-52); HEMOGLOBIN 10.3 g/dL (14.0-18.0); MEAN CELL VOLUME 94.1 fL (80-100); MEAN CORPUSCULAR HEMOGLOBIN 31.8 pg (25-34); MEAN CORPUSCULAR HGB CONC 33.8 g/dl (32-36); RED CELL DISTRIBUTION WIDTH CV 14.6 % (11.5-14.5); RED CELL DISTRIBUTION WIDTH SD 50.2 fL (36.4-46.3); WHITE BLOOD COUNT 16.86 K/uL (4.8-10.8)
--- NOTE | 2017-04-04 16:28 | DIAGNOSTIC IMAGING REPORT ---
CHEST ONE VIEW PORTABLE CLINICAL HISTORY: 61 years-old Male presenting with Sepsis. TECHNIQUE: Portable supine AP view of the chest was obtained. COMPARISON: None. FINDINGS: Atherosclerosis of aortic arch. Cardiac silhouette enlarged. Low lung volumes. Minimal bandlike opacities at the left lung base. Few nodular opacities at the right lung base. Pulmonary vascular prominence. Bronchial wall thickening. No large effusion or pneumothorax. Degenerative changes of the thoracic spine. Cholecystectomy clips noted. IMPRESSION: 1. Mildly low lung volumes with hypoventilatory changes. 2. Findings suggestive of volume overload and congestive change. No santino pulmonary edema. 3. No focal infiltrate to suggest pneumonia. Electronically signed by: Thaddeus Saavedra M.D. 04/04/2017 4:27 PM Dictated Date/Time: 04/04/2017 4:26 PM
[2017-04-04 16:29] LABS: MEAN PLATELET VOLUME 9.6 fL (7.4-10.4); PLATELET COUNT 62 K/uL (130-400)
[2017-04-04] MEDS ORDERED: VANCOMYCIN CONSULT ACTIVE PRN ×2 (16:30→19:15)
[2017-04-04 16:35] LABS: INR 1.4 (0.9-1.1); PTT PATIENT 33.6 SECONDS (21.0-31.0)
[2017-04-04 16:58] LABS: BASO % 0.1 %; BASO ABS # 0.02 K/uL (0-0.2); IG# 0.38 K/uL (0.00-0.02); LYMPH % 3.5 %; LYMPH ABS # 0.59 K/uL (1.2-3.4); MONO % 4.1 %; MONO ABS # 0.69 K/uL (0.11-0.59); NEUT ABS # 15.18 K/uL (1.4-6.5)
[2017-04-04 17:14] LABS: INFLUENZA B ANTIGEN Neg for Influ B (NEG)
--- NOTE | 2017-04-04 17:18 | DIAGNOSTIC IMAGING REPORT ---
CT SCAN OF THE ABDOMEN AND PELVIS WITHOUT IV CONTRAST CLINICAL HISTORY: Reported history of recent stents. Fever. COMPARISON STUDY: No priors. TECHNIQUE: CT scan of the abdomen and pelvis is performed from the lung bases to the proximal femora. Images are reviewed in the axial, sagittal, and coronal planes. IV contrast was not administered for this examination as per the referring clinician. Note that the examination was performed in suboptimal fashion without oral and IV contrast. A dose lowering technique was utilized adhering to the principles of ALARA. The examination is compromised by motion artifact. CT DOSE: 1919.98 mGy.cm FINDINGS: Lung bases: The heart is top normal in size and without pericardial effusion. There are trace pleural effusions with dependent atelectasis. There is a tiny hiatal hernia. Liver: The unenhanced liver appears mildly atrophic and heterogeneous in attenuation. Nodularity service contour is questioned. There is no intrahepatic biliary ductal dilatation. Gallbladder: Surgically absent noting clips in the gallbladder fossa. Spleen: The spleen is enlarged, measuring 17 cm in length. 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 Pancreas: The unenhanced pancreas is atrophic and grossly unremarkable. Adrenal glands: Unremarkable. Kidneys: The unenhanced kidneys demonstrate cortical atrophy. There is fullness of the renal collecting system bilaterally without clear evidence of hydronephrosis. There are no renal calculi identified. There is no evidence of contour deforming renal mass lesion. Nonspecific bilateral perinephric stranding is observed. Abdominal vasculature: The abdominal aorta is normal in course and caliber noting mild atherosclerotic calcification. Bowel: The small bowel and colon are normal in course and caliber. The appendix is not identified. Peritoneum: Nonspecific stranding is seen in the paracolic gutters bilaterally. Trace fluid is noted. No intraperitoneal free air is seen. Lymphadenopathy: None. Pelvic viscera: A suprapubic catheter is present within the bladder. The bladder wall is markedly thickened and there is significant pericystic inflammation. The prostate and seminal vesicles are normal as imaged. Skeletal structures: The skeletal structures are osteopenic. Mild to moderate lumbosacral spondylosis is observed. No lytic or blastic lesions are seen. IMPRESSION: 1. A suprapubic bladder catheter is in place. The bladder wall is thickened and there is significant pericystic inflammatory stranding. Correlate clinically and with urinalysis for evidence of cystitis. 2. There is mild fullness of the renal collecting system bilaterally without hydronephrosis. Bilateral perinephric stranding is nonspecific. Correlate clinically and with urinalysis for evidence of pyelonephritis. 3. The appearance of the liver suggests cirrhosis. 4. The spleen is enlarged. 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 5. Trace pleural effusions. 6. Additional findings as above. Electronically signed by: Edward Foreman M.D. 04/04/2017 5:16 PM Dictated Date/Time: 04/04/2017 5:09 PM
[2017-04-04 17:22] LABS: ALBUMIN 2.3 gm/dl (3.4-5.0); CALCIUM 8.3 mg/dl (8.5-10.1); CKMB 1.8 ng/ml (0.5-3.6); CREATININE 6.52 mg/dl (0.60-1.40); PHOSPHORUS 4.5 mg/dl (2.5-4.9); POTASSIUM 4.9 mmol/L (3.5-5.1); TOTAL PROTEIN 6.7 gm/dl (6.4-8.2)
[2017-04-04] MEDS ORDERED: SODIUM CHLORIDE 0.9% 1000ML 1,000 ML IV STA (18:08)
[2017-04-04] MEDS ORDERED: KETOROLAC TROMETHAMINE 30 MG/ML VIAL IV STA (18:24)
[2017-04-04] MEDS ORDERED: MAGNESIUM SULFATE 1GM / D5W 1 GM BAG IV STA (18:51)
[2017-04-04] MEDS ORDERED: NOREPINEPHRINE BIT INJ 8 MG in DEXTROSE 5% 500ML 500 ML IV STA (18:53)
[2017-04-04] MEDS ORDERED: SODIUM CHLORIDE 0.9% 1000ML 250 ML IV ONE ×2 (19:13)
[2017-04-04] MEDS ORDERED: SODIUM CHLORIDE 0.9% 1000ML 500 ML IV ONE ×2 (19:13)
[2017-04-04] MEDS ORDERED: ICU PROTOCOL FOR HYPERGLYCEMIA PRN (19:15)
--- NOTE | 2017-04-04 19:39 | History and Physical ---
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 -had previous meatotomy with no success,had suprapubic catheter placement ~3 yrs pt recently underwent Urethral reconstruction surgery on 03/07/17 at [facility] by Urology Dr Hernandez pt was discharge after 24 hr hospital stay with Madrigal Catheter and his chronic suprapubic catheter had uneventful post op course , [place] [facility] [place] voiding cystourethrogram shows spontaneous voiding through patent urethra with out any leakage Madrigal was d/popeye pt was schedule for next follow up visit [place] [facility] [place] for removal of suprapubic catheter past 2 days , pt was not feeling well , developed chills/rigor /fever -recorded 104 at home, associated with headache felt discomfort in lower abdomen , suprapubic catheter site Catheter has been draining urine no hematuria or clot noted pt reports of generalized weakness, poor appetite, refused to come to ER Today he felt worse , unable to walk as his legs are giving away- , very dizzy and lightheaded, Nausea /abdominal discomfort significant SHAW, continued to spike temp and Daughter contacted [facility] , due to his concerning symptom and recent urology procedure -Pt was asked to come to [place] [facility] pt and family refused to go to [place] due to distance and lack of transport ( pt does not want ambulance transport ) was advised to go to nearest ER at [facility] on arrival : pt was found have fever > 38/hypotensive /Tachycardic , Lactic acid > 4 , WBC 16 K . COLLIN with Cr > 6 significant elevation form baseline UA grossly positive for occult blood + 3 /large Leukocyte esterase , + bacteria/ Yeast Past Medical/Surgical History Medical Problems: (1) urethroplasty Status: Resolved Family History Cancer Diabetes mellitus Heart disease Hypertension Kidney disease Kidney stones Lung disease Social History Smoking Status: Never Smoker Marital Status: Occupational Status: unemployed Allergies Coded Allergies: Tamsulosin (Verified Allergy, Mild, HIVES, 04/04/17) Home Medications Scheduled Adalimumab (Humira), 20 MG INJ twice monthly Chlorhexidine Gluconate (Mouth (Periogard), 15 ML PO Q4 Ferrous Sulfate (Iron), 1 TAB PO QAM Furosemide (Lasix), 40 MG PO QAM Lisinopril (Prinivil), 5 MG PO QAM Meloxicam (Mobic), 15 MG PO DAILY Omeprazole (Prilosec), 20 MG PO QAM Potassium Chloride (Micro-K Ext Rel), 10 MEQ PO HS Sulfa/Trimethoprim (Bactrim Ds 800MG/160MG), 1 TAB PO QAM Scheduled PRN Senna/Docusate Sod (Senokot S), 1 TAB PO DAILY PRN for Constipation Physical Exam Vital Signs Date Time Temp Pulse Resp B/P (MAP) Pulse Ox O2 Delivery O2 Flow Rate FiO2 04/04/17 19:25 20 70/36 90 Room Air 04/04/17 18:48 38.2 123 20 74/35 94 Room Air 04/04/17 17:55 129 22 85/40 94 Room Air 04/04/17 17:40 135 22 104/38 93 Room Air 04/04/17 17:25 139 22 92/49 94 Room Air 04/04/17 17:21 104/47 04/04/17 17:10 38.1 140 22 104/47 95 Room Air 04/04/17 16:53 132 20 111/50 04/04/17 16:41 94 Room Air 04/04/17 16:40 131 22 97/45 96 Room Air 04/04/17 16:39 92/39 04/04/17 16:28 120 04/04/17 16:19 96/39 04/04/17 15:59 38.0 124 24 61/33 91 Room Air General Appearance: + moderate distress (diaphoretic /short of breath ) Head: normocephalic, atraumatic Eyes: normal inspection, sclerae normal Neck: no JVD, no carotid bruits, trachea midline Respiratory/Chest: chest non-tender, + decreased breath sounds Cardiovascular: no JVD, + bradycardia Abdomen/GI: + abnormal bowel sounds (diminished ), + pertinent finding ( suprapubic tenderness /suprapubic catheter present ) Extremities/Musculoskelatal: no pedal edema Neurologic/Psych: alert, oriented x 3 Diagnostics Laboratory Results Results Past 24 Hours Test 04/04/17 16:15 04/04/17 16:38 04/04/17 16:39 04/04/17 18:22 Range/Units White Blood Count 16.86 4.8-10.8 K/uL Red Blood Count 3.24 4.7-6.1 M/uL Hemoglobin 10.3 14.0-18.0 g/dL Hematocrit 30.5 42-52 % Mean Corpuscular Volume 94.1 80-100 fL Mean Corpuscular Hemoglobin 31.8 25-34 pg Mean Corpuscular Hemoglobin Concent 33.8 32-36 g/dl Platelet Count 62 130-400 K/uL Mean Platelet Volume 9.6 7.4-10.4 fL Neutrophils (%) (Auto) 90.0 % Lymphocytes (%) (Auto) 3.5 % Monocytes (%) (Auto) 4.1 % Eosinophils (%) (Auto) 0.0 % Basophils (%) (Auto) 0.1 % Neutrophils # (Auto) 15.18 1.4-6.5 K/uL Lymphocytes # (Auto) 0.59 1.2-3.4 K/uL Monocytes # (Auto) 0.69 0.11-0.59 K/uL Eosinophils # (Auto) 0.00 0-0.5 K/uL Basophils # (Auto) 0.02 0-0.2 K/uL RDW Standard Deviation 50.2 36.4-46.3 fL RDW Coefficient of Variation 14.6 11.5-14.5 % Immature Granulocyte % (Auto) 2.3 % Immature Granulocyte # (Auto) 0.38 0.00-0.02 K/uL Hyposegmented Neutrophils 1+ Toxic Granulation 1+ Dohle Bodies 1+ Erythrocyte Sedimentation Rate 42 0-14 mm/hr Prothrombin Time 14.5 9.0-12.0 SECONDS Prothromb Time International Ratio 1.4 0.9-1.1 Activated Partial Thromboplast Time 33.6 21.0-31.0 SECONDS Partial Thromboplastin Ratio 1.3 Sodium Level 134 136-145 mmol/L Potassium Level 4.9 3.5-5.1 mmol/L Chloride Level 104 98-107 mmol/L Carbon Dioxide Level 17 21-32 mmol/L Anion Gap 13.0 3-11 mmol/L Blood Urea Nitrogen 65 7-18 mg/dl Creatinine 6.52 0.60-1.40 mg/dl Est Creatinine Clear Calc Drug Dose 15.3 ml/min Estimated GFR () 9.6 Estimated GFR (Non- 8.3 BUN/Creatinine Ratio 10.0 10-20 Random Glucose 156 70-99 mg/dl Calcium Level 8.3 8.5-10.1 mg/dl Phosphorus Level 4.5 2.5-4.9 mg/dl Magnesium Level 1.6 1.8-2.4 mg/dl Total Bilirubin 0.8 0.2-1 mg/dl Aspartate Amino Transf (AST/SGOT) 41 15-37 U/L Alanine Aminotransferase (ALT/SGPT) 30 12-78 U/L Alkaline Phosphatase 38 45-117 U/L Total Creatine Kinase 92 39-308 U/L Creatine Kinase MB 1.8 0.5-3.6 ng/ml Creatine Kinase MB Ratio 2.0 0-3.0 Troponin I 0.332 0-0.045 ng/ml C-Reactive Protein 12.40 0-0.29 mg/dl Pro-B-Type Natriuretic Peptide 4759 0-900 pg/ml Total Protein 6.7 6.4-8.2 gm/dl Albumin 2.3 3.4-5.0 gm/dl Globulin 4.4 2.5-4.0 gm/dl Albumin/Globulin Ratio 0.5 0.9-2 Lipase 30 73-393 U/L Venous Blood pH 7.30 7.36-7.41 Venous Blood Partial Pressure CO2 34 38.0-50.0 mmHg Venous Blood Partial Pressure O2 32 mmHg Venous Blood HCO3 16 mmol/L Venous Blood Oxygen Saturation < 60.0 % Venous Blood Base Excess -9.4 mEq/L Influenza Type A Antigen Neg for Influ A NEG Influenza Type B Antigen Neg for Influ B NEG Urine Color DK YELLOW Urine Appearance TURBID CLEAR Urine pH 5.0 4.5-7.5 Urine Specific [place] 1.018 1.000-1.030 Urine Protein 2+ NEG Urine Glucose (UA) NEG NEG Urine Ketones NEG NEG Urine Occult Blood 3+ NEG Urine Nitrite NEG NEG Urine Bilirubin NEG NEG Urine Urobilinogen NEG NEG Urine Leukocyte Esterase LARGE NEG Urine WBC (Auto) >30 0-5 /hpf Urine RBC (Auto) 10-30 0-4 /hpf Urine Hyaline Casts (Auto) 5-10 0-5 /lpf Urine Epithelial Cells (Auto) >30 0-5 /lpf Urine Bacteria (Auto) 3+ NEG Urine Yeast (Auto) BUD W/ HYPHAE NONE PRSENT Test 04/04/17 19:13 04/04/17 19:20 Range/Units Microbiology Results 04/04/17 Blood Culture, Received Pending 04/04/17 Blood Culture, Received Pending 04/04/17 Urine Culture, Received Pending Diagnostic Radiology Diagnostic Interpretation: Radiology results as stated below per my review and radiologist interpretation: CHEST ONE VIEW PORTABLE CLINICAL HISTORY: 61 years-old Male presenting with Sepsis. TECHNIQUE: Portable supine AP view of the chest was obtained. COMPARISON: None. FINDINGS: Atherosclerosis of aortic arch. Cardiac silhouette enlarged. Low lung volumes. Minimal bandlike opacities at the left lung base. Few nodular opacities at the right lung base. Pulmonary vascular prominence. Bronchial wall thickening. No large effusion or pneumothorax. Degenerative changes of the thoracic spine. Cholecystectomy clips noted. IMPRESSION: 1. Mildly low lung volumes with hypoventilatory changes. 2. Findings suggestive of volume overload and congestive change. No santino pulmonary edema. 3. No focal infiltrate to suggest pneumonia. CT SCAN OF THE ABDOMEN AND PELVIS WITHOUT IV CONTRAST CLINICAL HISTORY: Reported history of recent stents. Fever. COMPARISON STUDY: No priors. TECHNIQUE: CT scan of the abdomen and pelvis is performed from the lung bases to the proximal femora. Images are reviewed in the axial, sagittal, and coronal planes. IV contrast was not administered for this examination as per the referring clinician. Note that the examination was performed in suboptimal fashion without oral and IV contrast. A dose lowering technique was utilized adhering to the principles of ALARA. The examination is compromised by motion artifact. CT DOSE: 1919.98 mGy.cm FINDINGS: Lung bases: The heart is top normal in size and without pericardial effusion. There are trace pleural effusions with dependent atelectasis. There is a tiny hiatal hernia. Liver: The unenhanced liver appears mildly atrophic and heterogeneous in attenuation. Nodularity service contour is questioned. There is no intrahepatic biliary ductal dilatation. Gallbladder: Surgically absent noting clips in the gallbladder fossa. Spleen: The spleen is enlarged, measuring 17 cm in length. 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 Pancreas: The unenhanced pancreas is atrophic and grossly unremarkable. Adrenal glands: Unremarkable. Kidneys: The unenhanced kidneys demonstrate cortical atrophy. There is fullness of the renal collecting system bilaterally without clear evidence of hydronephrosis. There are no renal calculi identified. There is no evidence of contour deforming renal mass lesion. Nonspecific bilateral perinephric stranding is observed. Abdominal vasculature: The abdominal aorta is normal in course and caliber noting mild atherosclerotic calcification. Bowel: The small bowel and colon are normal in course and caliber. The appendix is not identified. Peritoneum: Nonspecific stranding is seen in the paracolic gutters bilaterally. Trace fluid is noted. No intraperitoneal free air is seen. Lymphadenopathy: None. Pelvic viscera: A suprapubic catheter is present within the bladder. The bladder wall is markedly thickened and there is significant pericystic inflammation. The prostate and seminal vesicles are normal as imaged. Skeletal structures: The skeletal structures are osteopenic. Mild to moderate lumbosacral spondylosis is observed. No lytic or blastic lesions are seen. IMPRESSION: 1. A suprapubic bladder catheter is in place. The bladder wall is thickened and there is significant pericystic inflammatory stranding. Correlate clinically and with urinalysis for evidence of cystitis. 2. There is mild fullness of the renal collecting system bilaterally without hydronephrosis. Bilateral perinephric stranding is nonspecific. Correlate clinically and with urinalysis for evidence of pyelonephritis. 3. The appearance of the liver suggests cirrhosis. 4. The spleen is enlarged. 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 5. Trace pleural effusions. 6. Additional findings as above. Electronically signed by: Edward Foreman M.D. 04/04/2017 5:16 PM Dictated Date/Time: 04/04/2017 5:09 PM EKG Vent. rate 125 BPM DC interval 156 ms QRS duration 94 ms QT/QTc 292/421 ms P-R-T axes 47 72 2 Sinus tachycardia Low voltage QRS Borderline ECG No previous ECGs available Impression Assessment and Plan SEVERE SEPSIS WITH SEPTIC SHOCK meets criteria for sepsis with tissue hypoperfusion presents with Fever Temp 38 /HR 120 sinus tach /hypotension BP 61/33 Leukocytosis WBC 16 K , elevated lactic acid level > 4 /Pro Calcitonin > 20 /C- reactive protein > 12 Procalcitonin > 20 source of infection -complicated UTI ( presence of chronic suprapubic catheter , recent urological procedure -Urethral reconstructive surgery on 03/06/17 ) recent Voiding Cystourethrogram 04/02/17 : noted: vesicoureteral reflux noted R> L . Rt vesicoureteral reflux opacifies the rt collecting system CT abdomen /pelvis : 1. A suprapubic bladder catheter is in place. The bladder wall is thickened and there is significant pericystic inflammatory stranding. Correlate clinically and with urinalysis for evidence of cystitis. 2. There is mild fullness of the renal collecting system bilaterally without hydronephrosis. Bilateral perinephric stranding is nonspecific. Correlate clinically and with urinalysis for evidence of pyelonephritis. 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 all diuretics discontinued PRP monitor Q 4hrs per Sepsis protocol Nephrology consulted CHRONIC SUPRAPUBIC CATHETER/RECENT RECONSTRUCTION OF OF URETHRA : : due to urethral stricture /Bladder out let obstruction had Suprapubic catheter > 3 yrs had recent reconstruction surgery for urethra in [facility] on by Urology Dr Hernandez underwent : Single stage urethroplasty, ventral buccal mucosa graft substitution urethroplasty, harvest of buccal mucosa graft 6 cm x 2 cm , Cystoscopy pt had uneventful post op course Discharge home on 03/08/17 Had recent post surgery visit in [place] with Dr Hernandez on 04/02/17 : voiding cystourethrogram on 04/02/17 : Bladder filled normally with out intrinsic or extrinsic defect vesicoureteral reflux noted R> L . Rt vesicoureteral reflux opacifies the rt collecting system Patent Urethra during spontaneous voiding without evidence of leak. Madrigal Catheter was D/popeye was schedule to remove suprapubic catheter tomorrow 04/05/17 by Urology continue suprapubic catheter drainage in setting of COLLIN /Hypotension/severe sepsis monitor I's O's Urology consult requested, pt was seen by Dr Guzman in past CHRONIC THROMBOCYTOPENIA : Platelet 62 on presentation Prior lab work Platelet 71 ( 03/06/17 ) -> 86 ( 03/07/17 ) -89 ( 03/08/17 ) Follows with Heme onc Dr Bowman [facility] avoid antiplatelets , anticoagulation ordered for daily CBC HX OF PSORIATIC ARTHRITIS : was on Humira 20mg/0.4ml twice monthly on hold for severe sepsis HTN : presents with sepsis , vol depletion , hypotension /COLLIN Hold Lasix( was on 40 mg BID ) and ACEI -Lisinopril 5 mg daily cont IV resuscitation , pressor support ICU monitoring GERD: ordered PPI CODE STATUS : FULL CODE D/w PT DVT PROPHYLAXIS : Moderate to high risk pharmacological anticoagulation avoided - thrombocytopenia scd and teds DISPOSITION ; lives at home with independent in ADL;'s will need PT/OT eval when medically stable Social service contused for discharge planning Pt follows with Dr [facility]ong[facility] follow up with [facility] Total critical time spent for the pt ~40 mins Level of Care Critical Care Resuscitation Status FULL RESUSCITATION VTE Prophylaxis VTE Risk Assessment Done? Y/N: Yes Risk Level: Moderate Given or contraindicated: T.E.DJarod Stockings, SCD's Note Total Time: Critical Care 30 - 74 minutes
[2017-04-04 20:18] LABS: HEMATOCRIT 25.8 % (42-52); HEMOGLOBIN 8.9 g/dL (14.0-18.0)
[2017-04-04] MEDS ORDERED: CONSULT PHARMACY STA (20:27)
[2017-04-04] MEDS ORDERED: PIPERACILL/TAZOBAC CONSULT ACTIVE PRN (20:30)
[2017-04-04 20:40] VITALS: BP 68/41; PULSE 117; TEMP 37.9; O2SAT 96; BMI 45.5
[2017-04-04 20:46] LABS: CALCIUM 7.4 mg/dl (8.5-10.1); POTASSIUM 4.8 mmol/L (3.5-5.1)
[2017-04-04 20:54] VITALS: BP 89/45; PULSE 112; TEMP 37.9; O2SAT 95
--- NOTE | 2017-04-04 20:56 | Pharmacy Progress Note ---
Pharmacy Antibiotic Consult Date of Service: Apr 04, 2017. Pharmacy Dosing Scope Pharmacy is consulted by Dr. Cano to initiate Vancomycin and Zosyn IV dosing therapy for sepsis with urinary source, order appropriate labs and adjust drug dose/frequency. Subjective The patient is a 61 year old male admitted on Apr 04, 2017 at 19:09. Objective Height (Feet): 5 Height (Inches): 8.00 Weight (Kilograms): 127.000 Lab Results (24hrs): Test 04/04/17 16:15 04/04/17 16:38 04/04/17 16:39 04/04/17 18:22 White Blood Count 16.86 K/uL (4.8-10.8) Red Blood Count 3.24 M/uL (4.7-6.1) Hemoglobin 10.3 g/dL (14.0-18.0) Hematocrit 30.5 % (42-52) Mean Corpuscular Volume 94.1 fL (80-100) Mean Corpuscular Hemoglobin 31.8 pg (25-34) Mean Corpuscular Hemoglobin Concent 33.8 g/dl (32-36) Platelet Count 62 K/uL (130-400) Mean Platelet Volume 9.6 fL (7.4-10.4) Neutrophils (%) (Auto) 90.0 % Lymphocytes (%) (Auto) 3.5 % Monocytes (%) (Auto) 4.1 % Eosinophils (%) (Auto) 0.0 % Basophils (%) (Auto) 0.1 % Neutrophils # (Auto) 15.18 K/uL (1.4-6.5) Lymphocytes # (Auto) 0.59 K/uL (1.2-3.4) Monocytes # (Auto) 0.69 K/uL (0.11-0.59) Eosinophils # (Auto) 0.00 K/uL (0-0.5) Basophils # (Auto) 0.02 K/uL (0-0.2) RDW Standard Deviation 50.2 fL (36.4-46.3) RDW Coefficient of Variation 14.6 % (11.5-14.5) Immature Granulocyte % (Auto) 2.3 % Immature Granulocyte # (Auto) 0.38 K/uL (0.00-0.02) Hyposegmented Neutrophils 1+ Toxic Granulation 1+ Dohle Bodies 1+ Erythrocyte Sedimentation Rate 42 mm/hr (0-14) Prothrombin Time 14.5 SECONDS (9.0-12.0) Prothromb Time International Ratio 1.4 (0.9-1.1) Activated Partial Thromboplast Time 33.6 SECONDS (21.0-31.0) Partial Thromboplastin Ratio 1.3 Sodium Level 134 mmol/L (136-145) Potassium Level 4.9 mmol/L (3.5-5.1) Chloride Level 104 mmol/L (98-107) Carbon Dioxide Level 17 mmol/L (21-32) Anion Gap 13.0 mmol/L (3-11) Blood Urea Nitrogen 65 mg/dl (7-18) Creatinine 6.52 mg/dl (0.60-1.40) Est Creatinine Clear Calc Drug Dose 15.3 ml/min Estimated GFR () 9.6 Estimated GFR (Non- 8.3 BUN/Creatinine Ratio 10.0 (10-20) Random Glucose 156 mg/dl (70-99) Calcium Level 8.3 mg/dl (8.5-10.1) Phosphorus Level 4.5 mg/dl (2.5-4.9) Magnesium Level 1.6 mg/dl (1.8-2.4) Total Bilirubin 0.8 mg/dl (0.2-1) Aspartate Amino Transf (AST/SGOT) 41 U/L (15-37) Alanine Aminotransferase (ALT/SGPT) 30 U/L (12-78) Alkaline Phosphatase 38 U/L (45-117) Total Creatine Kinase 92 U/L (39-308) Creatine Kinase MB 1.8 ng/ml (0.5-3.6) Creatine Kinase MB Ratio 2.0 (0-3.0) Troponin I 0.332 ng/ml (0-0.045) C-Reactive Protein 12.40 mg/dl (0-0.29) Pro-B-Type Natriuretic Peptide 4759 pg/ml (0-900) Total Protein 6.7 gm/dl (6.4-8.2) Albumin 2.3 gm/dl (3.4-5.0) Globulin 4.4 gm/dl (2.5-4.0) Albumin/Globulin Ratio 0.5 (0.9-2) Lipase 30 U/L (73-393) Venous Blood pH 7.30 (7.36-7.41) Venous Blood Partial Pressure CO2 34 mmHg (38.0-50.0) Venous Blood Partial Pressure O2 32 mmHg Venous Blood HCO3 16 mmol/L Venous Blood Oxygen Saturation < 60.0 % Venous Blood Base Excess -9.4 mEq/L Influenza Type A Antigen Neg for Influ A (NEG) Influenza Type B Antigen Neg for Influ B (NEG) Urine Color DK YELLOW Urine Appearance TURBID (CLEAR) Urine pH 5.0 (4.5-7.5) Urine Specific [place] 1.018 (1.000-1.030) Urine Protein 2+ (NEG) Urine Glucose (UA) NEG (NEG) Urine Ketones NEG (NEG) Urine Occult Blood 3+ (NEG) Urine Nitrite NEG (NEG) Urine Bilirubin NEG (NEG) Urine Urobilinogen NEG (NEG) Urine Leukocyte Esterase LARGE (NEG) Urine WBC (Auto) >30 /hpf (0-5) Urine RBC (Auto) 10-30 /hpf (0-4) Urine Hyaline Casts (Auto) 5-10 /lpf (0-5) Urine Epithelial Cells (Auto) >30 /lpf (0-5) Urine Bacteria (Auto) 3+ (NEG) Urine Yeast (Auto) BUD W/ HYPHAE (NONE PRSENT) Test 04/04/17 20:10 Hemoglobin 8.9 g/dL (14.0-18.0) Hematocrit 25.8 % (42-52) Lactic Acid Level 4.7 mmol/L (0.4-2.0) Assessment & Plan Assessment Pt admitted for sepsis with urinary source. * He is febrile with leukocytosis. * History of recent urethral reconstructive surgery (date unknown at this time) . * Pt has a suprapubic catheter and is on preventative bactrim. * Baseline renal function unclear. * Urine and Blood cultures pending Plan Vancomycin * Pt received 2gm in the ER, an additional 1 gm was ordered * Pt will be dosed per level for now due to poor renal function, estimated crcl <20 * Random vanc level ordered for tomorrow am with labs * Goal trough levels for sepsis: 15-20 mcg/mL Zosyn * 4.5 gm load over 30minutes followed by 4.5 gm q 12 hours * Higher dose selected due to BMI>35 and critical status Pharmacy will continue to follow and will adjust dose/frequency as necessary. Thank you
[2017-04-04 21:00] VITALS: BP 97/46; PULSE 109; O2SAT 96
[2017-04-04] MEDS ORDERED: VANCOMYCIN INJ 1,000 MG in SODIUM CHLORIDE 0.9% 250ML 250 ML IV ONE (21:00)
[2017-04-04] MEDS ORDERED: PIPERACILL/TAZOBAC IV 4.5 GM in DEXTROSE 5% 100ML IV ONE (21:00)
[2017-04-04] MEDS: SODIUM CHLORIDE 0.9% 1000ML 1,000 ML IV SCH ×3 (21:05→23:08)
[2017-04-04 21:45] VITALS: BP 88/41; PULSE 108; O2SAT 98
--- NOTE | 2017-04-04 21:59 | Critical Care Consultation ---
Critical Care Consultation Date of Consultation: Apr 04, 2017. Attending Physician: Gio Ag M.D. Reason for Consultation: 61-year-old male with severe sepsis with septic shock from urinary source with acute renal failure requiring aggressive fluid resuscitation and vasoactive support. History of Present Illness Patient is a 61-year-old male with a long-standing history of urinary issues requiring suprapubic catheter 3 years ago for voiding. In early February, the patient underwent urethroplasty at [facility] in [place] area he had a Madrigal catheter placed immediately after the procedure. After follow-up, the patient did have Madrigal catheter removed and was voiding on his own without issues. On Saturday, the patient reports that he began having decreased urinary output. That evening, he noticed that he felt cold and achy. On Saturday, he had no urine output from his urethra. He had scant urine output from his suprapubic cath. The patient felt very weak and tired yesterday, but would not come to the emergency department per his . Today, his symptoms worsened resulting in visit to the emergency department. The patient described weakness and lightheadedness as well as dizziness with changes in position. He denied any chest pain, shortness of breath, nausea, vomiting, abdominal pain. While in the emergency department, the patient was aggressively resuscitated with IV crystalloid including 2 full liters. He received an additional 2 L in route to the ICU. He was found to have moderate leukocytosis as well as elevated ESR and CRP. He was found to be in acute renal failure with a BUN/ creatinine of 65 and 6.5 to. Addition, he had slight elevation of his troponin at 0.33 to. Lactic acid was moderately elevated at 4.7. RIGHT groin femoral line was placed by ED physician for aggressive fluids as well as vasoactive support. The patient was placed on Levophed in the ED. he received vancomycin as well as Levaquin in the emergency department. He has since been changed to Zosyn and vancomycin. Chest x-ray obtained in the emergency department did show some mild congestive changes. The patient has not required any positive airway pressure and he complains of no shortness of breath. Upon arrival to the ICU, patient is awake, alert, and oriented. He denies any discomfort at this point. He reports feeling much better than his initial presentation to the emergency department. He reports the actually was supposed to see his surgeon in [place] tomorrow, however obviously that is out of the question at this point. The patient currently denies any headaches, dizziness, nausea, vomiting, chest pain, palpitations, short of breath, or any other constitutional symptoms. He does admit to having diarrhea since Saturday. There is been no other recent sick contacts. Patient lives at home with family. He denies any significant history of alcohol or tobacco use. Past Medical/Surgical History Medical Problems: (1) Sepsis (2) urethroplasty Family History Cancer Diabetes mellitus Heart disease Hypertension Kidney disease Kidney stones Lung disease noncontributory Social History Smoking Status: Never Smoker Smokeless Tobacco Use: No Alcohol Use: none Drug Use: none Marital Status: Housing Status: lives with significant other Occupation Status: unemployed Allergies Coded Allergies: Tamsulosin (Verified Allergy, Mild, HIVES, 04/04/17) Home Medications Scheduled Adalimumab (Humira), 20 MG INJ twice monthly Chlorhexidine Gluconate (Mouth (Periogard), 15 ML PO Q4 Ferrous Sulfate (Iron), 1 TAB PO QAM Furosemide (Lasix), 40 MG PO QAM Lisinopril (Prinivil), 5 MG PO QAM Meloxicam (Mobic), 15 MG PO DAILY Omeprazole (Prilosec), 20 MG PO QAM Potassium Chloride (Micro-K Ext Rel), 10 MEQ PO HS Sulfa/Trimethoprim (Bactrim Ds 800MG/160MG), 1 TAB PO QAM Scheduled PRN Senna/Docusate Sod (Senokot S), 1 TAB PO DAILY PRN for Constipation Current Inpatient Medications Current Inpatient Medications Medications (Trade) Dose Ordered Sig/Min Route Start Time Stop Time Status Last Admin Dose Admin Piperacillin Sod/ Tazobactam Sod 4.5 gm/Dextrose 120 ml @ 30 mls/hr Q12H IV 04/05/17 04:00 04/14/17 20:59 Vancomycin HCl 1000 mg/Sodium Chloride 270 ml @ 125 mls/hr ONE ONCE IV 04/04/17 21:00 04/04/17 23:09 04/04/17 21:05 125 MLS/HR Acetaminophen (Tylenol Tab) 650 mg Q4H PRN PO 04/04/17 19:15 05/04/17 19:14 Pantoprazole Sodium 40 mg/ Syringe 10 ml @ 5 mls/min DAILY IV 04/05/17 09:00 05/05/17 08:59 Morphine Sulfate (MoRPHine SULFATE INJ) 2 mg Q2H PRN IV 04/04/17 19:15 04/18/17 19:14 Miscellaneous Information (Icu Protocol For Hyperglycemia) 1 ea PRN PRN N/A 04/04/17 19:15 04/06/17 19:14 Miscellaneous Information (Consult) 1 ea UD PRN N/A 04/04/17 19:15 05/04/17 19:14 Sodium Chloride 1,000 ml @ 999 mls/hr Q1H1M IV 04/04/17 20:15 04/05/17 00:15 04/04/17 21:05 999 MLS/HR Miscellaneous Information (Consult) 1 ea UD PRN N/A 04/04/17 20:30 05/04/17 20:29 Norepinephrine Bitartrate 8 mg/ Dextrose 508 ml @ 0 mls/hr Q0M IV 04/04/17 21:00 05/04/17 20:59 Review of Systems A complete 10-point Review of Systems was discussed with the patient, with pertinent positives and negatives listed in the History of Present Illness. All remaining Review of Systems questions can be considered negative unless otherwise specified. Physical Exam Date Time Temp Pulse Resp B/P (MAP) Pulse Ox O2 Delivery O2 Flow Rate FiO2 04/04/17 21:45 108 20 88/41 (57) 98 Room Air 04/04/17 21:00 109 20 97/46 (56) 04/04/17 21:00 109 20 97/46 (63) 96 Room Air 04/04/17 20:54 37.9 112 18 89/45 (60) 95 Room Air 04/04/17 20:40 37.9 117 24 68/41 96 Nasal Cannula 2.0 04/04/17 20:06 112 22 85/45 95 Nasal Cannula 2.0 04/04/17 19:25 20 70/36 90 Room Air 04/04/17 18:48 38.2 123 20 74/35 94 Room Air 04/04/17 17:55 129 22 85/40 94 Room Air 04/04/17 17:40 135 22 104/38 93 Room Air 04/04/17 17:25 139 22 92/49 94 Room Air 04/04/17 17:21 104/47 04/04/17 17:10 38.1 140 22 104/47 95 Room Air 04/04/17 16:53 132 20 111/50 04/04/17 16:41 94 Room Air 04/04/17 16:40 131 22 97/45 96 Room Air 04/04/17 16:39 92/39 04/04/17 16:28 120 04/04/17 16:19 96/39 04/04/17 15:59 38.0 124 24 61/33 91 Room Air VITAL SIGNS - Vital signs and nursing notes were reviewed. GENERAL - 61-year-old male appearing his stated age who is in no acute distress. Communicates well with provider and answers questions appropriately. SKIN - Without rashes. HEAD - NC/AT. EYES - PERRL with EOMI bilaterally. Sclera anicteric. Palpebral conjunctiva pink and moist with no injection noted. EARS - No deformities of external structures noted on gross examination bilaterally. NOSE - Midline and without cyanosis. MOUTH/OROPHARYNX - Without perioral cyanosis. Buccal mucosa pink and dry. NECK - Neck with FROM. Supple to palpation. No lymphadenopathy noted. No nuchal rigidity. LUNGS - Chest wall symmetric without accessory muscle use, intercostals retractions, or central cyanosis. Normal vesicular breath sounds CTA B/L. No wheezes, rales, or rhonchi appreciated. CARDIAC - RRR with S1/S2. No murmur, rubs, or gallops appreciated. ABDOMEN - Abdominal contour obese without pulsations or visible masses. BS normoactive all four quadrants. No tenderness, palpable masses, hepatosplenomegaly, or ascites noted. Suprapubic catheter present with mild surround erythema. EXTREMITIES - No clubbing or peripheral cyanosis. No pretibial edema present. +3 /5 radial dorsalis pedis pulses palpated throughout. +5/5 strength noted in UE/ LE bilaterally. NEUROLOGIC - Cranial nerves II through XII grossly intact. Sensory intact to light touch throughout. PSYCH - A&Ox3 and cooperates fully with examiner. Pt is very pleasant and interacts well with examiner. Laboratory Results Last 24 Hours Test 04/04/17 16:15 04/04/17 16:38 04/04/17 16:39 04/04/17 18:22 White Blood Count 16.86 K/uL Red Blood Count 3.24 M/uL Hemoglobin 10.3 g/dL Hematocrit 30.5 % Mean Corpuscular Volume 94.1 fL Mean Corpuscular Hemoglobin 31.8 pg Mean Corpuscular Hemoglobin Concent 33.8 g/dl Platelet Count 62 K/uL Mean Platelet Volume 9.6 fL Neutrophils (%) (Auto) 90.0 % Lymphocytes (%) (Auto) 3.5 % Monocytes (%) (Auto) 4.1 % Eosinophils (%) (Auto) 0.0 % Basophils (%) (Auto) 0.1 % Neutrophils # (Auto) 15.18 K/uL Lymphocytes # (Auto) 0.59 K/uL Monocytes # (Auto) 0.69 K/uL Eosinophils # (Auto) 0.00 K/uL Basophils # (Auto) 0.02 K/uL RDW Standard Deviation 50.2 fL RDW Coefficient of Variation 14.6 % Immature Granulocyte % (Auto) 2.3 % Immature Granulocyte # (Auto) 0.38 K/uL Hyposegmented Neutrophils 1+ Toxic Granulation 1+ Dohle Bodies 1+ Erythrocyte Sedimentation Rate 42 mm/hr Prothrombin Time 14.5 SECONDS Prothromb Time International Ratio 1.4 Activated Partial Thromboplast Time 33.6 SECONDS Partial Thromboplastin Ratio 1.3 Sodium Level 134 mmol/L Potassium Level 4.9 mmol/L Chloride Level 104 mmol/L Carbon Dioxide Level 17 mmol/L Anion Gap 13.0 mmol/L Blood Urea Nitrogen 65 mg/dl Creatinine 6.52 mg/dl Est Creatinine Clear Calc Drug Dose 15.3 ml/min Estimated GFR () 9.6 Estimated GFR (Non- 8.3 BUN/Creatinine Ratio 10.0 Random Glucose 156 mg/dl Calcium Level 8.3 mg/dl Phosphorus Level 4.5 mg/dl Magnesium Level 1.6 mg/dl Total Bilirubin 0.8 mg/dl Aspartate Amino Transf (AST/SGOT) 41 U/L Alanine Aminotransferase (ALT/SGPT) 30 U/L Alkaline Phosphatase 38 U/L Total Creatine Kinase 92 U/L Creatine Kinase MB 1.8 ng/ml Creatine Kinase MB Ratio 2.0 Troponin I 0.332 ng/ml C-Reactive Protein 12.40 mg/dl Pro-B-Type Natriuretic Peptide 4759 pg/ml Total Protein 6.7 gm/dl Albumin 2.3 gm/dl Globulin 4.4 gm/dl Albumin/Globulin Ratio 0.5 Lipase 30 U/L Procalcitonin 20.25 ng/ml Venous Blood pH 7.30 Venous Blood Partial Pressure CO2 34 mmHg Venous Blood Partial Pressure O2 32 mmHg Venous Blood HCO3 16 mmol/L Venous Blood Oxygen Saturation < 60.0 % Venous Blood Base Excess -9.4 mEq/L Influenza Type A Antigen Neg for Influ A Influenza Type B Antigen Neg for Influ B Urine Color DK YELLOW Urine Appearance TURBID Urine pH 5.0 Urine Specific Estell[place] 1.018 Urine Protein 2+ Urine Glucose (UA) NEG Urine Ketones NEG Urine Occult Blood 3+ Urine Nitrite NEG Urine Bilirubin NEG Urine Urobilinogen NEG Urine Leukocyte Esterase LARGE Urine WBC (Auto) >30 /hpf Urine RBC (Auto) 10-30 /hpf Urine Hyaline Casts (Auto) 5-10 /lpf Urine Epithelial Cells (Auto) >30 /lpf Urine Bacteria (Auto) 3+ Urine Yeast (Auto) BUD W/ HYPHAE Test 04/04/17 20:10 04/04/17 20:44 04/04/17 20:57 04/04/17 21:11 Hemoglobin 8.9 g/dL Hematocrit 25.8 % Sodium Level 136 mmol/L Potassium Level 4.8 mmol/L Chloride Level 107 mmol/L Carbon Dioxide Level 17 mmol/L Anion Gap 12.0 mmol/L Blood Urea Nitrogen 67 mg/dl Creatinine 6.00 mg/dl Est Creatinine Clear Calc Drug Dose 16.6 ml/min Estimated GFR () 10.7 Estimated GFR (Non- 9.2 BUN/Creatinine Ratio 11.1 Random Glucose 153 mg/dl Lactic Acid Level 4.7 mmol/L Calcium Level 7.4 mg/dl Magnesium Level 1.5 mg/dl Bedside Glucose 217 mg/dl Diagnostic Results Radiological imaging and reports were reviewed by myself. Radiologist's Interpretation as follows: CHEST ONE VIEW PORTABLE CLINICAL HISTORY: 61 years-old Male presenting with Sepsis. TECHNIQUE: Portable supine AP view of the chest was obtained. COMPARISON: None. FINDINGS: Atherosclerosis of aortic arch. Cardiac silhouette enlarged. Low lung volumes. Minimal bandlike opacities at the left lung base. Few nodular opacities at the right lung base. Pulmonary vascular prominence. Bronchial wall thickening. No large effusion or pneumothorax. Degenerative changes of the thoracic spine. Cholecystectomy clips noted. IMPRESSION: 1. Mildly low lung volumes with hypoventilatory changes. 2. Findings suggestive of volume overload and congestive change. No santino pulmonary edema. 3. No focal infiltrate to suggest pneumonia. CT SCAN OF THE ABDOMEN AND PELVIS WITHOUT IV CONTRAST CLINICAL HISTORY: Reported history of recent stents. Fever. COMPARISON STUDY: No priors. TECHNIQUE: CT scan of the abdomen and pelvis is performed from the lung bases to the proximal femora. Images are reviewed in the axial, sagittal, and coronal planes. IV contrast was not administered for this examination as per the referring clinician. Note that the examination was performed in suboptimal fashion without oral and IV contrast. A dose lowering technique was utilized adhering to the principles of ALARA. The examination is compromised by motion artifact. CT DOSE: 1919.98 mGy.cm FINDINGS: Lung bases: The heart is top normal in size and without pericardial effusion. There are trace pleural effusions with dependent atelectasis. There is a tiny hiatal hernia. Liver: The unenhanced liver appears mildly atrophic and heterogeneous in attenuation. Nodularity service contour is questioned. There is no intrahepatic biliary ductal dilatation. Gallbladder: Surgically absent noting clips in the gallbladder fossa. Spleen: The spleen is enlarged, measuring 17 cm in length. 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 Pancreas: The unenhanced pancreas is atrophic and grossly unremarkable. Adrenal glands: Unremarkable. Kidneys: The unenhanced kidneys demonstrate cortical atrophy. There is fullness of the renal collecting system bilaterally without clear evidence of hydronephrosis. There are no renal calculi identified. There is no evidence of contour deforming renal mass lesion. Nonspecific bilateral perinephric stranding is observed. Abdominal vasculature: The abdominal aorta is normal in course and caliber noting mild atherosclerotic calcification. Bowel: The small bowel and colon are normal in course and caliber. The appendix is not identified. Peritoneum: Nonspecific stranding is seen in the paracolic gutters bilaterally. Trace fluid is noted. No intraperitoneal free air is seen. Lymphadenopathy: None. Pelvic viscera: A suprapubic catheter is present within the bladder. The bladder wall is markedly thickened and there is significant pericystic inflammation. The prostate and seminal vesicles are normal as imaged. Skeletal structures: The skeletal structures are osteopenic. Mild to moderate lumbosacral spondylosis is observed. No lytic or blastic lesions are seen. IMPRESSION: 1. A suprapubic bladder catheter is in place. The bladder wall is thickened and there is significant pericystic inflammatory stranding. Correlate clinically and with urinalysis for evidence of cystitis. 2. There is mild fullness of the renal collecting system bilaterally without hydronephrosis. Bilateral perinephric stranding is nonspecific. Correlate clinically and with urinalysis for evidence of pyelonephritis. 3. The appearance of the liver suggests cirrhosis. 4. The spleen is enlarged. 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 5. Trace pleural effusions. 6. Additional findings as above. Assessment & Plan (1) Septic shock (2) Sepsis due to urinary tract infection (3) Cystitis (4) Elevated troponin (5) Acute renal failure Reason Critically Ill: 61-year-old male with severe sepsis with septic shock from urinary source with acute renal failure requiring aggressive fluid resuscitation and vasoactive support. Neuro - * CAM ICU: NEGATIVE Cardiac - * Elevated troponin: * Likely 2/2 demand ischemia in the setting of septic shock. * Will assess cardiac output with AM Echo. * Trend Troponins. * EKGs for CP. * Monitor on telemetry. * h/o HTN: * Will hold home Rx at this point until BP improves,. * Hypotension: * 2/2 septic shock. * Aggressive IVF resuscitation. * Levophed gtt for support. * Consider adding other pressors as needed. Respiratory - * No h/o respiratory disease. * Mild Volume overload on CXR: * Will assess from cardiac standpoint with AM echo. * At this point, patient needs volume. Will add CPAP for positive pressure if his breathing worsens. * AM CXR GI - * Prophylaxis - Protonix. * NPO at this point until off Pressors. RENAL/LYTES - * Acute Renal Failure: * BUN/Cr 65/6.52. * Likely 2/2 hypotension related to sepsis. * Received 4 L crystalloid. * IVF: NSS@100/hr * Will trend PRP. * Replace Lytes as needed. - * Sepsis from Urinary Source: * Consult * Antibiotics. * Continue with Suprapubic Cath for I&Os. * Culture urine. ENDO - * Elevated Blood Glucose: * ISS now. * No h/o Thyroid Disease. HEME - * Stable H&H * History of Thrombocytopenia: * Platelets 62k today. * Will trend. ID - * Septic Shock from Urinary Source: * Trend Lactic. * Add ProCal * Vanc, Zosyn * Blood/urine cultures. * Flu NEGATIVE * Did grow out yeast in his previous urine. Will add Diflucan dosing for coverage in the acute phase of illness. * Will add fungal blood cultures. * Diarrhea the past few days: * Will add stool cultures and c.diff. LINES/IV ACCESS - * PIVs intact. * RIGHT Femoral CVL * Suprapubic Catheter DVT PROPHYLAXIS - * Will hold on Heparin/Lovenox at this point w/ h/o Thrombocytopenia. Will trend platelets. * SCDs I have personally spent 40 minutes of critical care time in the direct management of this patient. This is a life/limb threatening event. This includes time spent evaluating patient, direct bedside care, chart review, placing orders, interpretation of diagnostic studies, discussion with consultants, patient, and family members, as well as other required patient management activities. This time is exclusive of all separately billable procedures, and teaching time and separate from and in addition to any other critical care service time. Thank you for this consultation allow us to be part of this patient's care. Please refer to my attending physician's documentation for any further recommendations.
[2017-04-04 22:00] VITALS: BP 77/40; PULSE 107; O2SAT 97
[2017-04-05] VITALS (50 sets, daily range): BP systolic 74–133; BP diastolic 35–86; PULSE 97–124; TEMP 36.7–38.4; O2SAT 70–99
[2017-04-05 00:12] LABS: HEMATOCRIT 26.8 % (42-52); HEMOGLOBIN 9.1 g/dL (14.0-18.0)
[2017-04-05] MEDS ORDERED: GLUCAGON FOR INJ 1 MG VIAL SQ PRN (00:30)
[2017-04-05] MEDS ORDERED: GLUCOSE 10 TABS/TUBE PO PRN (00:30)
[2017-04-05] MEDS ORDERED: NURSING VERBAL MED ORDER ONE (00:30)
[2017-04-05] MEDS ORDERED: GLUCOSE 40% GEL 15 GM TUBE PO PRN (00:30)
[2017-04-05] MEDS ORDERED: INSULIN GLARGINE SOLOSTAR 100 UNITS/ML 3 ML PEN SC ONE (00:30)
[2017-04-05] MEDS ORDERED: DEXTROSE 50% 50 ML SYR IV PRN (00:30)
[2017-04-05 00:44] LABS: CALCIUM 7.2 mg/dl (8.5-10.1); CREATININE 5.74 mg/dl (0.60-1.40); POTASSIUM 4.8 mmol/L (3.5-5.1)
[2017-04-05] MEDS ORDERED: INSULIN ASPART 100 UNITS/ML 3 ML PEN SC ONE (00:45)
[2017-04-05] MEDS ORDERED: INSULIN GLARGINE SOLOSTAR 100 UNITS/ML 3 ML PEN SC SCH ×2 (00:45→09:00)
[2017-04-05] MEDS: SODIUM CHLORIDE 0.9% 1000ML 1,000 ML IV SCH ×3 (01:11→20:23)
--- NOTE | 2017-04-05 01:41 | Progress Note ---
Progress Note Post Crystalloid Evaluation Date: Apr 05, 2017 Time: 01:40 Subjective pt seen in ICU 109 , awake and alert denies of any pain or discomfort Physical Exam Vital Signs: Vital Signs Date Time Temp Pulse Resp B/P (MAP) Pulse Ox O2 Delivery O2 Flow Rate FiO2 04/04/17 22:00 107 20 77/40 (49) 97 04/04/17 21:45 Room Air 04/04/17 20:54 37.9 04/04/17 20:40 2.0 Lungs: lungs clear, no respiratory distress, + decreased breath sounds Heart: + tachycardia Capillary Refill: Delayed (2 seconds or longer) Assessment & Plan Presence of: Severe Sepsis lab reviewed : Cr improved 5.7 ( improved form > 6) Hco3 -19 ( improved form 17 ) Lactic acid 4.7-> 2.8 Mg level corrected 1.8 SEVERE SEPSIS DUE to complicated UTI cont Abx Zosyn /Vancomycin till culture report available cont Aggressive IV fluid resuscitation per sepsis protocol 30 ml /kg Pressors Levophed to keep MAP > 60 as hypotension refectory to IVF bolus remains critically ill requiring ICU status case D./w ICU team
[2017-04-05] MEDS: NOREPINEPHRINE BIT INJ 8 MG in DEXTROSE 5% 500ML 500 ML IV SCH ×2 (02:22→07:44)
[2017-04-05 04:06] LABS: HEMATOCRIT 26.5 % (42-52); HEMOGLOBIN 9.2 g/dL (14.0-18.0); MEAN CELL VOLUME 93.3 fL (80-100); MEAN CORPUSCULAR HEMOGLOBIN 32.4 pg (25-34); MEAN CORPUSCULAR HGB CONC 34.7 g/dl (32-36); RED CELL DISTRIBUTION WIDTH CV 14.5 % (11.5-14.5); RED CELL DISTRIBUTION WIDTH SD 49.5 fL (36.4-46.3); WHITE BLOOD COUNT 15.69 K/uL (4.8-10.8)
[2017-04-05] MEDS: PIPERACILL/TAZOBAC IV 4.5 GM in DEXTROSE 5% 100ML 100 ML IV SCH ×2 (04:13→15:32)
[2017-04-05 04:24] LABS: INR 1.3 (0.9-1.1)
[2017-04-05 04:27] LABS: MEAN PLATELET VOLUME 9.1 fL (7.4-10.4); PLATELET COUNT 63 K/uL (130-400)
[2017-04-05 04:35] LABS: ALBUMIN 1.9 gm/dl (3.4-5.0); CREATININE 5.49 mg/dl (0.60-1.40); PHOSPHORUS 4.5 mg/dl (2.5-4.9); POTASSIUM 4.6 mmol/L (3.5-5.1); TOTAL PROTEIN 5.9 gm/dl (6.4-8.2)
[2017-04-05] MEDS ORDERED: INSULIN ASPART 100 UNITS/ML 3 ML PEN SC SCH ×2 (06:00→06:45)
[2017-04-05 06:18] LABS: HEMATOCRIT 27.2 % (42-52); HEMOGLOBIN 9.5 g/dL (14.0-18.0)
--- NOTE | 2017-04-05 06:40 | DIAGNOSTIC IMAGING REPORT ---
CHEST ONE VIEW PORTABLE CLINICAL HISTORY: sob COMPARISON STUDY: April 04, 2017 FINDINGS: The heart is enlarged. There is elevation of the interstitium. Mild pulmonary vascular congestion is suspected. There is no lobar consolidation. There are no significant pleural fusions.[ IMPRESSION: Cardiomegaly and suspected mild pulmonary vascular congestion/fluid overload. No evidence of focal pulmonary consolidation Electronically signed by: Joe Israel M.D. 04/05/2017 6:39 AM Dictated Date/Time: 04/05/2017 6:38 AM
[2017-04-05 06:53] LABS: HEMOGLOBIN A1C 5.8 % (4.5-5.6)
[2017-04-05 06:53] LABS: CALCIUM 7.2 mg/dl (8.5-10.1); CREATININE 5.42 mg/dl (0.60-1.40); POTASSIUM 4.6 mmol/L (3.5-5.1)
[2017-04-05] MEDS: MoRPHine SULFATE 2 MG/ML CARP IV PRN (07:44)
[2017-04-05] MEDS ORDERED: PERFLUTREN LIPID MICROSPHERE (DEFINITY) IV ONE (07:52)
[2017-04-05] MEDS: PANTOprazole INJ 40 MG in SYRINGE 0 ML IV SCH (08:46)
[2017-04-05] MEDS ORDERED: CALCIUM GLUCONATE 10% 1,000 MG in SODIUM CHLORIDE 0.9% 50ML 50 ML IV ONE (09:00)
[2017-04-05] MEDS ORDERED: FLUCONAZOLE / NSS 100 MG in PREMIXED NSS 50 ML IV SCH (09:00)
--- NOTE | 2017-04-05 09:16 | Urology Consultation ---
History General Date of Service: Apr 05, 2017. Chief Complaint: fever, feeling unwell Primary Care Physician: Norris Truong PA-C Pt seen a urologist before?: Yes (Dr. Sanchez-[facility]; Dr. Hernandez-[facility] [facility]) If yes, why?: urethral stricture History of Present Illness 61 yo male admitted to [facility] with sepsis and ARF. Noted to be febrile, tachycardic, and hypotensive requiring Levophed. CR >6 on admission. He has a hx of urethral stricture and chronic SPT for which he was seeing Dr. Sanchez. He is s/p buccal urethroplasty with Dr. Hernandez on 03-07-17. He reports he was doing well until 2 days ago after having a TOV with Dr. Hernandez in [place] on 04-02-17. He notes he was able to void from penis without difficulty after stratton was removed, but then developed difficulty voiding over the past 2 days. Voiding cystourethrogram ON 04-02-17 shows spontaneous voiding through patent urethra with out any leakage. Vesicoureteral reflux noted R>L. Stratton was d/popeye Pt was schedule for next follow up visit at [facility] on 04/05/17 for removal of suprapubic catheter SPT remains in place draining clear, yellow urine this morning, but he notes minimal output over the past 2 days as well. His perineal incision is without drainage or redness. CT abdomen /pelvis on admission : 1. A suprapubic bladder catheter is in place. The bladder wall is thickened and there is significant pericystic inflammatory stranding. Correlate clinically and with urinalysis for evidence of cystitis. 2. There is mild fullness of the renal collecting system bilaterally without hydronephrosis. Bilateral perinephric stranding is nonspecific. Correlate clinically and with urinalysis for evidence of pyelonephritis. Imaging Imaging: CT Laboratory Last 24 Hours Test 04/04/17 16:15 04/04/17 16:38 04/04/17 16:39 04/04/17 18:22 White Blood Count 16.86 K/uL Red Blood Count 3.24 M/uL Hemoglobin 10.3 g/dL Hematocrit 30.5 % Mean Corpuscular Volume 94.1 fL Mean Corpuscular Hemoglobin 31.8 pg Mean Corpuscular Hemoglobin Concent 33.8 g/dl Platelet Count 62 K/uL Mean Platelet Volume 9.6 fL Neutrophils (%) (Auto) 90.0 % Lymphocytes (%) (Auto) 3.5 % Monocytes (%) (Auto) 4.1 % Eosinophils (%) (Auto) 0.0 % Basophils (%) (Auto) 0.1 % Neutrophils # (Auto) 15.18 K/uL Lymphocytes # (Auto) 0.59 K/uL Monocytes # (Auto) 0.69 K/uL Eosinophils # (Auto) 0.00 K/uL Basophils # (Auto) 0.02 K/uL RDW Standard Deviation 50.2 fL RDW Coefficient of Variation 14.6 % Immature Granulocyte % (Auto) 2.3 % Immature Granulocyte # (Auto) 0.38 K/uL Hyposegmented Neutrophils 1+ Toxic Granulation 1+ Dohle Bodies 1+ Erythrocyte Sedimentation Rate 42 mm/hr Prothrombin Time 14.5 SECONDS Prothromb Time International Ratio 1.4 Activated Partial Thromboplast Time 33.6 SECONDS Partial Thromboplastin Ratio 1.3 Sodium Level 134 mmol/L Potassium Level 4.9 mmol/L Chloride Level 104 mmol/L Carbon Dioxide Level 17 mmol/L Anion Gap 13.0 mmol/L Blood Urea Nitrogen 65 mg/dl Creatinine 6.52 mg/dl Est Creatinine Clear Calc Drug Dose 15.3 ml/min Estimated GFR () 9.6 Estimated GFR (Non- 8.3 BUN/Creatinine Ratio 10.0 Random Glucose 156 mg/dl Calcium Level 8.3 mg/dl Phosphorus Level 4.5 mg/dl Magnesium Level 1.6 mg/dl Total Bilirubin 0.8 mg/dl Aspartate Amino Transf (AST/SGOT) 41 U/L Alanine Aminotransferase (ALT/SGPT) 30 U/L Alkaline Phosphatase 38 U/L Total Creatine Kinase 92 U/L Creatine Kinase MB 1.8 ng/ml Creatine Kinase MB Ratio 2.0 Troponin I 0.332 ng/ml C-Reactive Protein 12.40 mg/dl Pro-B-Type Natriuretic Peptide 4759 pg/ml Total Protein 6.7 gm/dl Albumin 2.3 gm/dl Globulin 4.4 gm/dl Albumin/Globulin Ratio 0.5 Lipase 30 U/L Procalcitonin 20.25 ng/ml Venous Blood pH 7.30 Venous Blood Partial Pressure CO2 34 mmHg Venous Blood Partial Pressure O2 32 mmHg Venous Blood HCO3 16 mmol/L Venous Blood Oxygen Saturation < 60.0 % Venous Blood Base Excess -9.4 mEq/L Influenza Type A Antigen Neg for Influ A Influenza Type B Antigen Neg for Influ B Urine Color DK YELLOW Urine Appearance TURBID Urine pH 5.0 Urine Specific Lucan 1.018 Urine Protein 2+ Urine Glucose (UA) NEG Urine Ketones NEG Urine Occult Blood 3+ Urine Nitrite NEG Urine Bilirubin NEG Urine Urobilinogen NEG Urine Leukocyte Esterase LARGE Urine WBC (Auto) >30 /hpf Urine RBC (Auto) 10-30 /hpf Urine Hyaline Casts (Auto) 5-10 /lpf Urine Epithelial Cells (Auto) >30 /lpf Urine Bacteria (Auto) 3+ Urine Yeast (Auto) BUD W/ HYPHAE Test 04/04/17 20:10 04/04/17 20:44 04/04/17 20:57 04/04/17 23:57 Hemoglobin 8.9 g/dL 9.1 g/dL Hematocrit 25.8 % 26.8 % Sodium Level 136 mmol/L 134 mmol/L Potassium Level 4.8 mmol/L 4.8 mmol/L Chloride Level 107 mmol/L 106 mmol/L Carbon Dioxide Level 17 mmol/L 19 mmol/L Anion Gap 12.0 mmol/L 9.0 mmol/L Blood Urea Nitrogen 67 mg/dl 67 mg/dl Creatinine 6.00 mg/dl 5.74 mg/dl Est Creatinine Clear Calc Drug Dose 16.6 ml/min 18.0 ml/min Estimated GFR () 10.7 11.3 Estimated GFR (Non- 9.2 9.7 BUN/Creatinine Ratio 11.1 11.4 Random Glucose 153 mg/dl 155 mg/dl Lactic Acid Level 4.7 mmol/L 2.8 mmol/L Calcium Level 7.4 mg/dl 7.2 mg/dl Magnesium Level 1.5 mg/dl 1.8 mg/dl Bedside Glucose 217 mg/dl Troponin I 0.324 ng/ml Hepatitis C Antibody Screen NEG Test 04/05/17 00:03 04/05/17 03:56 04/05/17 06:06 04/05/17 06:12 Bedside Glucose (other) 152 mg/dl 146 mg/dl White Blood Count 15.69 K/uL Red Blood Count 2.84 M/uL Hemoglobin 9.2 g/dL 9.5 g/dL Hematocrit 26.5 % 27.2 % Mean Corpuscular Volume 93.3 fL Mean Corpuscular Hemoglobin 32.4 pg Mean Corpuscular Hemoglobin Concent 34.7 g/dl RDW Standard Deviation 49.5 fL RDW Coefficient of Variation 14.5 % Platelet Count 63 K/uL Mean Platelet Volume 9.1 fL Prothrombin Time 14.0 SECONDS Prothromb Time International Ratio 1.3 Sodium Level 133 mmol/L 135 mmol/L Potassium Level 4.6 mmol/L 4.6 mmol/L Chloride Level 107 mmol/L 107 mmol/L Carbon Dioxide Level 18 mmol/L 18 mmol/L Anion Gap 8.0 mmol/L 10.0 mmol/L Blood Urea Nitrogen 67 mg/dl 66 mg/dl Creatinine 5.49 mg/dl 5.42 mg/dl Est Creatinine Clear Calc Drug Dose 18.8 ml/min 19.4 ml/min Estimated GFR () 11.9 12.1 Estimated GFR (Non- 10.2 10.4 BUN/Creatinine Ratio 12.2 12.2 Random Glucose 141 mg/dl 150 mg/dl Estimated Average Glucose 120 mg/dl Hemoglobin A1c 5.8 % Lactic Acid Level 2.2 mmol/L 2.6 mmol/L Calcium Level 7.0 mg/dl 7.2 mg/dl Phosphorus Level 4.5 mg/dl Magnesium Level 1.8 mg/dl 1.9 mg/dl Total Bilirubin 0.9 mg/dl Direct Bilirubin 0.5 mg/dl Aspartate Amino Transf (AST/SGOT) 52 U/L Alanine Aminotransferase (ALT/SGPT) 31 U/L Alkaline Phosphatase 33 U/L Troponin I 0.330 ng/ml Total Protein 5.9 gm/dl Albumin 1.9 gm/dl Globulin 4.0 gm/dl Albumin/Globulin Ratio 0.5 Lipase 22 U/L Procalcitonin 11.93 ng/ml Random Vancomycin Level 28.7 mcg/ml Problem List Medical Problems: (1) Acute renal failure Status: Acute (2) Complication of catheter Status: Acute (3) Cystitis Status: Acute (4) Elevated troponin Status: Acute (5) Hypomagnesemia Status: Acute (6) Hypotension Status: Acute (7) Pyelonephritis Status: Acute (8) Renal failure Status: Acute (9) Renal insufficiency Status: Acute (10) Sepsis due to urinary tract infection Status: Acute (11) Septic shock Status: Acute Past History other (urethral stricture, lichen sclerosis) Past Surgical History: other (buccal urethroplasty 03-07-17) Family History Cancer Diabetes mellitus Heart disease Hypertension Kidney disease Kidney stones Lung disease Social History Hx Tobacco Use In Past Year?: No Smoking: non-smoker Alcohol: occasional Marital status: Housing status: lives with family Occupation status: unemployed Allergies Coded Allergies: Tamsulosin (Verified Allergy, Mild, HIVES, 04/04/17) Medications Home Medications: Home Meds and Scripts Medications Dose Route/Sig Max Daily Dose Days Date Category Micro-K Ext Rel (Potassium Chloride) 10 Meq Capcr 10 Meq PO HS 03/17/17 Reported Lasix (Furosemide) 40 Mg Tab 40 Mg PO QAM 03/17/17 Reported Prinivil (Lisinopril) 5 Mg Tab 5 Mg PO QAM 03/17/17 Reported Mobic (Meloxicam) 15 Mg Tab 15 Mg PO DAILY 03/17/17 Reported Prilosec (Omeprazole) 20 Mg Capcr 20 Mg PO QAM 03/17/17 Reported Humira (Adalimumab) 20 Mg/0.4 Ml Kit 20 Mg INJ TWICE MONTHLY 03/17/17 Reported Periogard (Chlorhexidine Gluconate (Mouth) 0.12 % Salud 15 Ml PO Q4 03/17/17 Reported Bactrim Ds 800MG/160MG (Trimethoprim/Sulfamethoxazole) Tab 1 Tab PO QAM 03/17/17 Reported Senokot S (Senna/Docusate Sodium) 1 Tab Tab 1 Tab PO DAILY PRN 03/17/17 Reported Iron (Ferrous Sulfate) 325 Mg Tab 1 Tab PO QAM 07/26/16 Reported Inpatient Medications: Current Inpatient Medications Medications (Trade) Dose Ordered Sig/Min Route Start Time Stop Time Status Last Admin Dose Admin Piperacillin Sod/ Tazobactam Sod 4.5 gm/Dextrose 120 ml @ 30 mls/hr Q12H IV 04/05/17 04:00 04/14/17 20:59 04/05/17 04:13 30 MLS/HR Acetaminophen (Tylenol Tab) 650 mg Q4H PRN PO 04/04/17 19:15 05/04/17 19:14 Pantoprazole Sodium 40 mg/ Syringe 10 ml @ 5 mls/min DAILY IV 04/05/17 09:00 05/05/17 08:59 04/05/17 08:46 5 MLS/MIN Morphine Sulfate (MoRPHine SULFATE INJ) 2 mg Q2H PRN IV 04/04/17 19:15 04/18/17 19:14 04/05/17 07:44 2 MG Miscellaneous Information (Icu Protocol For Hyperglycemia) 1 ea PRN PRN N/A 04/04/17 19:15 04/06/17 19:14 Future Hold Miscellaneous Information (Consult) 1 ea UD PRN N/A 04/04/17 19:15 05/04/17 19:14 Miscellaneous Information (Consult) 1 ea UD PRN N/A 04/04/17 20:30 05/04/17 20:29 Norepinephrine Bitartrate 8 mg/ Dextrose 508 ml @ 0 mls/hr Q0M IV 04/04/17 21:00 05/04/17 20:59 04/05/17 07:44 101 MLS/HR Insulin Glargine (Lantus Solostar Pen) 23 units Q12 SC 04/05/17 09:00 05/05/17 08:59 Future Hold Glucose (Glucose 40% Gel) 15-30 GRAMS 15 GRAMS... UD PRN PO 04/05/17 00:30 05/05/17 00:29 Glucose (Glucose Chew Tab) 4-8 Tablets 4 Tabl... UD PRN PO 04/05/17 00:30 05/05/17 00:29 Dextrose (Dextrose 50% 50ML Syringe) 25-50ML OF 50% DW IV FOR... UD PRN IV 04/05/17 00:30 05/05/17 00:29 Glucagon (Glucagon Inj) 1 mg UD PRN SQ 04/05/17 00:30 05/05/17 00:29 Sodium Chloride 1,000 ml @ 100 mls/hr Q10H IV 04/05/17 01:00 05/05/17 00:59 04/05/17 01:11 100 MLS/HR Insulin Aspart (novoLOG ASPART) SLIDING SCALE Q6 SC 04/05/17 06:00 05/05/17 05:59 Fluconazole/ Sodium Chloride 100 mg/Prmx 50 ml @ 100 mls/hr DAILY IV 04/05/17 09:00 04/15/17 08:59 04/05/17 08:46 100 MLS/HR Albumin Human (Albumin 25%) 12.5 gm 0900,1000,2100,2200 IV 04/05/17 09:00 04/08/17 08:59 Calcium Gluconate 1000 mg/Sodium Chloride 60 ml @ 240 mls/hr NOW ONCE IV 04/05/17 09:00 04/05/17 09:14 Review of Systems Review of Systems Constitutional: No fever, No chills Eyes: No double vision Neurological: No dizzy Endocrine: No excessive thirst Gastrointestinal: No abdominal pain, No nausea, No vomiting Cardiovascular: No chest pain Respiratory: No shortness of breath Skin: No rash Musculoskeletal: No back pain Male : No blood in urine Physical Exam Vital Signs: Vital Signs Past 12 Hours Date Time Temp Pulse Resp B/P (MAP) Pulse Ox O2 Delivery O2 Flow Rate FiO2 04/05/17 08:02 110 98 30 04/05/17 06:30 112 22 115/61 (79) 99 04/05/17 06:15 108 18 124/64 (84) 04/05/17 06:05 115 98 30 04/05/17 06:00 36.7 118 37 114/63 (80) 95 BiPAP 30 04/05/17 05:45 117 04/05/17 05:30 115 33 111/51 (71) 96 04/05/17 05:15 111 23 111/56 (74) 96 04/05/17 05:00 109 26 117/61 (79) 96 04/05/17 04:45 116 30 100/58 (72) 94 Nasal Cannula 2.0 04/05/17 04:45 116 30 100/58 (72) 94 04/05/17 04:30 113 26 99/55 (70) 96 04/05/17 04:16 113 42 98/86 (90) 97 04/05/17 04:15 111 37 76 04/05/17 04:00 36.7 111 32 109/49 (69) 97 04/05/17 04:00 95 Nasal Cannula 2.0 04/05/17 03:45 112 26 115/53 (73) 96 04/05/17 03:30 112 26 96/64 (75) 95 04/05/17 03:15 110 25 94/54 (67) 96 04/05/17 03:00 111 29 101/52 (68) 97 04/05/17 02:45 108 25 104/54 (71) 96 2/9/18 02:30 108 27 89/52 (64) 96 04/05/17 02:15 107 20 104/48 (66) 04/05/17 02:12 107 23 100/50 (67) 04/05/17 02:00 36.8 113 31 98/49 (65) 93 04/05/17 01:45 117 26 108/51 (70) 96 04/05/17 01:30 108 4 100/47 (64) 96 04/05/17 01:15 110 11 94/46 (62) 96 04/05/17 01:00 111 24 98/51 (67) 95 04/05/17 00:45 109 20 97/55 (69) 97 04/05/17 00:30 113 27 106/44 (64) 97 04/05/17 00:16 112 25 106/46 (66) 97 04/05/17 00:15 112 39 95 04/05/17 00:01 37.0 113 33 86/35 (52) 97 04/05/17 00:00 98 Room Air 2.0 04/05/17 00:00 103 30 70 04/04/17 22:00 107 20 77/40 (49) 97 04/04/17 21:45 108 20 88/41 (57) 98 Room Air 04/04/17 21:00 109 20 97/46 (56) 04/04/17 21:00 109 20 97/46 (63) 96 Room Air Physical Exam: General Appearance: no apparent distress, + obese Eyes: bilateral eyes normal inspection ENT: hearing grossly normal Neck: no JVD Respiratory/Chest: no respiratory distress, no accessory muscle use Cardiovascular: no JVD Gastrointestinal: Abdomen: pertinent finding (non-tender, soft abdomen on exam with some ecchymosis of the RLQ noted likely from insulin injection ) Extremities: normal inspection Neurologic/Psychiatric: alert, normal mood/affect, oriented x 3 Skin: normal color Additional Comments: Perineal incision noted to be surrounded with a cream, but clean and dry without drainage or redness. Assessment & Plan Assessment & Plan A/P: Sepsis, ARF, urethral stricture Pt with sepsis secondary to severe cystitis and possible pyelonephritis. Continue IV abx coverage pending culture sensitivities. Recommend a minimum of 14 days of therapy. Appreciate any ID recommendations. Recommend washing perineal incision with soap and water and applying Bacitracin ointment to the area twice daily. No evidence of drainage or redness of the incision to indicate infection. Cr slightly improved to 5.42 this morning. Continue SPT for now. DO NOT REMOVE OR CHANGE SPT PER DR. SANCHEZ. Ok for SPT to remain in place for now and have changed or removed as an outpatient by Gissel in the next [address] STRATTON CATHETER. Would not want to disrupt his recent urethroplasty. No evidence for hydronephrosis on CT to require decompression. Manage ARF supportively at this time. Thanks for the consult. Will continue to follow along with primary service. Pt seen and agree with above
--- NOTE | 2017-04-05 09:34 | NEPHROLOGY CONSULTATION ---
DATE OF CONSULTATION: 04/05/2017 ATTENDING OF RECORD: Dr. Ag. REASON FOR CONSULTATION: COLLIN. HISTORY OF PRESENT ILLNESS: This is a 61-year-old male who has a history of chronic urethral stricture, follows with Dr. Hernandez of urology in [place], recently underwent a urethroplasty on 03/07/2017. Has a chronic suprapubic catheter and had chronic Madrigal catheter for over 3 years. Madrigal catheter was discontinued on 04/02/2017 and he was to see [facility] on 04/05/2017 to remove the suprapubic catheter. The patient was doing very well, urinating fine with no complaints; however, 2 days ago, the patient had high-grade fevers, headaches, chills, generalized weakness, decreased appetite. encouraged him to go to the ER 2 days ago, the patient refused. The patient though continued to worsen and was getting more weak and eventually came to the hospital. The patient was in septic shock on admission with high-grade fevers, hypotension, tachycardia, elevated lactic acid, leukocytosis, creatinine greater than 6 with UA concerning for infection. The patient was aggressively hydrated, started on broad-spectrum antibiotics, required BiPAP overnight. CT scan of the abdomen was done which showed no hydronephrosis, however, mild fullness in the renal collecting system with bilateral perinephric stranding with findings suggestive of pyelonephritis with suprapubic bladder catheter in place. The patient did receive 1 dose of Toradol while in-house. 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 The patient was taking NSAIDs and bactrim. The patient's suprapubic catheter was hooked up to a drainage bag and the patient this morning is more alert, feels much better, however, still requiring high dose of pressors, aggressive IV fluid resuscitation, continues to be tachycardic and is still on BiPAP. REVIEW OF SYSTEMS: Decreased appetite. Positive fatigue. Positive headache. No nausea or vomiting. No chest pain. Positive dark urine from suprapubic catheter. Positive generalized weakness. No rash or itching. No dysphagia. No blurry vision. All other review of systems otherwise negative. CURRENT MEDICATIONS: Protonix 40 mg IV daily, Lantus 23 units subcu q. 12, fluconazole 100 mg IV daily, Zosyn 4.5 grams IV q. 12, sliding scale insulin, normal saline at 100 mL an hour, Levophed drip. PAST MEDICAL HISTORY/PAST SURGICAL HISTORY: Chronic urethral stricture with suprapubic catheter, history of chronic Madrigal placement with recent urethroplasty 03/07/2017. HTN. FAMILY HISTORY: Significant for kidney disease. SOCIAL HISTORY: No smoking, no alcohol, no drugs. He is . HOME MEDICATIONS: Significant for Mobic 15 mg daily, lisinopril 5 mg a day, Bactrim daily, potassium 10 mEq at night. PHYSICAL EXAMINATION: VITAL SIGNS: Temperature 36.7, pulse 110, respiratory rate is 22, blood pressure is 115/61, satting 98% on 30% FiO2 with BiPAP. GENERAL: Awake, alert, oriented x3. EYES: No scleral icterus. ENT: Moist mucous membranes. NECK: Supple. PULMONARY: Clear to auscultation. CARDIAC: Tachycardia. ABDOMEN: Positive suprapubic catheter. Bowel sounds positive. Soft, nontender. EXTREMITIES: No clubbing, cyanosis or edema. NEUROLOGIC: Nonfocal. DERMATOLOGIC: No rash or ulcers noted. LABORATORY DATA: White count is 15,000, H&H 9.5 and 27.2, platelet count 63. Sodium level is 135, potassium 4.6, chloride is 107, bicarb is 18, BUN 66, creatinine is 5.42, glucose 150. Lactic acid 2.6, down from 4.7. Calcium is 7.2, mag is 1.9. Albumin is 1.9. UA concerning for infection with specific gravity 1.018, pH of 5, protein 2+, 3+ blood, large leukocyte esterase, greater than 30 WBCs, 10-30 RBCs. Flu is negative. Vancomycin level is good at 28.7. INR is 1.3. Cultures are pending. Chest x-ray shows cardiomegaly, no evidence of focal pulmonary consolidation, mild pulmonary vascular congestion. IMPRESSION AND PLAN: Acute kidney injury, nonoliguric, in the setting of presumed urinary tract infection with pyelonephritis in a patient with suprapubic catheter and a recent urethroplasty with Madrigal recently discontinued, in a patient with chronic NSAIDs as well as Bactrim. Appropriate meds have been stopped. Continue aggressive fluid resuscitation. Would add albumin to help mobilize intravascular space and continue broad-spectrum antibiotics. Urology has been consulted. Perhaps may benefit being transferred to [place] to follow with Dr. Hernandez, although in my clinical opinion, not a surgical candidate at this time. Would continue aggressive IV fluid resuscitation in attempts to hopefully eventually wean down pressors. Hopefully, lactic acidosis improves and infection eventually improves. At this point, no role for dialysis. Hopefully, creatinine continues to improve back down to baseline. So far tolerating aggressive fluid resuscitation and would continue the current fluid rate while adding albumin as well and giving a dose of calcium supplementation in the setting of sepsis to help improve pressor support and blood pressure. I appreciate consultation. KELI
[2017-04-05] MEDS ORDERED: PHARMACY GLYCEMIC MGMT CONSULT PRN (09:45)
[2017-04-05] MEDS: BACITRACIN OINT 15 GM TUBE EXT SCH ×2 (09:56→20:22)
[2017-04-05] MEDS: ALBUMIN HUMAN 25% 12.5 GM/50 ML VIAL IV SCH ×4 (09:57→21:18)
--- NOTE | 2017-04-05 10:24 | Pharmacy Progress Note ---
Pharmacy Abx Dose Short Note Date of Service Apr 05, 2017. Assessment & Plan Pharmacy has been consulted for: * Glycemic Control * Vancomycin IV * Zosyn IV Assessment/Plan Glycemic control: * 61 year old male admitted 04/04 with sepsis from a urinary source. Patient has a h/o reconstructive surgery of urethra + bladder * IV pressor support initiated yesterday and continues this AM, norepi dose being weaned * Patient does not have a prior dx of DM, A1c was in the "pre-diabetic" range however * BSGs have been well controlled so far, BSGs ranging 146-152 * Lantus 46 units SQ x 1 given last PM; this dose is consistent w/ severe stress level * Stressors may be lessening (decreased pressors, NPO) as well as poor renal fxn -- he may become more insulin sensitive over the next 24 hrs * Plan: * Continue Lantus at reduced dose starting this PM: Lantus BID: 0 units if less than 120, 15 units if 120-180; 25 units is > 180 * Novolog SQ Q 4 hrs: * Correction factor: 15mg/dL/unit * Carb ratio: 1 unit per 6 grams CHO * Goal range: 110-180mg/dL Vancomycin * COLLIN present on admission, SCr trending lower today, however U.O. still low * 2000mg x 1 @1700 and [id number] x 1 @2100 given yesterday * Random level checked w/ AM labs today: 28.7 * Estimated half-life ~30-36 hours; patient will not need redosed today * Will recheck random level w/ AM labs tomorrow Zosyn * eCrCl < 20cc/min: BMI 42.6; continue 4.5gm ext-infusion Q 12 hrs Pharmacy will continue to follow and will adjust dose/frequency as necessary. Thank you.
--- NOTE | 2017-04-05 10:39 | Progress Note ---
Progress Note Date of Service Apr 05, 2017. Progress Note ID Consult Dictated #[id number] A/P: 1. Sepsis due to source 2. Fever 3. Leukocytosis -Continue broad spectrum abx for now, will adjust based on culture results -Will follow, thank you
--- NOTE | 2017-04-05 10:55 | ECHOCARDIOGRAM REPORT ---
*NOTICE TO RECEIVING LIBERTARIAN AGENCY This information is strictly Confidential and protected under [place] law. [place] law prohibits you from making any further disclosure of this information unless further disclosure is expressly permitted by the written consent of the person to whom it pertains or is authorized by law. A general authorization for the release of medical or other information is not sufficient for this purpose. Hospital accepts no responsibility if the information is made available to any other person, INCLUDING THE PATIENT. Interpretation Summary * Name: SHMUEL KNOTT Study Date: 04/05/2017 06:58 AM BP: 115/61 mmHg * Patient Location: .MSICU\S\E109\S\1 HR: 100 * : 1955 (M/d/yyy) Gender: Male Height: 68 in * Age: 61 yrs Ethnicity: CA Weight: 279 lb * Ordering Physician: Ju Cano * Referring Physician: Self, Referred * Performed By: Melanie Mcgee RDCS * * Reason For Study: CHEST PAIN * BSA: 2.4 m2 * The study was technically difficult. * The study was technically limited. * There is no comparison study available. * -- Conclusions -- * Ejection Fraction = 55-60%. * There is mild concentric left ventricular hypertrophy. * Regional wall motion abnormalities cannot be excluded due to limited visualization. * RV enlargement noted in limited apical views with IV contrast. * The right ventricular systolic function is qualitatively normal. * There is trace tricuspid regurgitation. * Normal inferior vena cava diameter and respiratory variation suggests normal central venous pressure. * Dilated coronary sinus. Procedure Details * A contrast injection of Definity was performed to improve assessment of LV function. * Contrast was injected into an intravenous site in the right arm. * One vial of Definity ultrasound contrast was diluted in normal saline to a total volume of 10 ml. A total of '1' ml of solution was administered during imaging. * Lot # [id number] of Definity utilized for procedure. * Expiration date 1 APR 15. * The attending nurse who injected the contrast agent was KIMMIE SOTELO RN. * A complete two-dimensional transthoracic echocardiogram was performed (2D, M-mode, Doppler and color flow Doppler). Left Ventricle * The left ventricle is normal in size. * There is mild concentric left ventricular hypertrophy. * Ejection Fraction = 55-60%. * Left ventricular systolic function is normal. * Regional wall motion abnormalities cannot be excluded due to limited visualization. Right Ventricle * The right ventricle is not well visualized. * RV enlargement noted in limited apical views with IV contrast. * The right ventricular systolic function is qualitatively normal. Atria * The left atrium is not well visualized. * The left atrium is mildly dilated. * Right atrial size is normal. * There is no evidence of atrial septal defect, but resolution does not allow assessment for a patent foramen ovale. Mitral Valve * The mitral valve is normal. * There is no mitral valve stenosis. * Significant mitral regurgitation is absent. Tricuspid Valve * The tricuspid valve is not well visualized. * There is no tricuspid stenosis. * There is trace tricuspid regurgitation. Aortic Valve * The aortic valve is trileaflet. * Aortic stenosis is absent. * There is no significant aortic regurgitation. Pulmonic Valve * The pulmonary valve is not well seen, but the Doppler examination is normal without significant regurgitation or stenosis. Great Vessels * The aortic root and proximal ascending aorta are normal sized. Pericardium/Pleural * There is no pericardial effusion. Great Vessels * Dilated coronary sinus. * Normal inferior vena cava diameter and respiratory variation suggests normal central venous pressure. Left Ventricular Diastolic Function * Pulse wave TDI of the anterior and posterior mitral annulas demonstrates normal LV relaxation MMode 2D Measurements and Calculations IVSd 1.3 cm IVSs 2.1 cm LVIDd 5.5 cm LVIDs 3.7 cm LVPWd 1.4 cm LVPWs 2.0 cm IVS/LVPW 0.92 FS 33.6 % EDV(Teich) 148.5 ml ESV(Teich) 56.7 ml EF(Teich) 61.8 % EDV(cubed) 167.9 ml ESV(cubed) 49.1 ml EF(cubed) 70.8 % % IVS thick 60.0 % % LVPW thick 41.6 % LV mass(C)d 326.2 grams LV mass(C)dI 138.6 grams/m\S\2 LV mass(C)s 347.9 grams LV mass(C)sI 147.8 grams/m\S\2 SV(Teich) 91.8 ml SI(Teich) 39.0 ml/m\S\2 SV(cubed) 118.8 ml SI(cubed) 50.5 ml/m\S\2 Ao root diam 3.5 cm Ao root area 9.5 cm\S\2 LA dimension 4.4 cm LA/Ao 1.3 LVAd ap4 39.9 cm\S\2 LVLd ap4 8.7 cm EDV(MOD-sp4) 147.1 ml EDV(sp4-el) 155.4 ml LVAs ap4 25.2 cm\S\2 LVLs ap4 7.8 cm ESV(MOD-sp4) 68.0 ml ESV(sp4-el) 68.8 ml EF(MOD-sp4) 53.8 % EF(sp4-el) 55.7 % SV(MOD-sp4) 79.1 ml SI(MOD-sp4) 33.6 ml/m\S\2 SV(sp4-el) 86.6 ml SI(sp4-el) 36.8 ml/m\S\2 Doppler Measurements and Calculations MV E max guera 117.3 cm/sec MV A max guera 95.9 cm/sec MV E/A 1.2 MV dec time 0.14 sec Ao V2 max 199.5 cm/sec Ao max PG 15.9 mmHg Ao max PG (full) 6.2 mmHg Ao V2 mean 147.9 cm/sec Ao mean PG 9.4 mmHg Ao mean PG (full) 4.0 mmHg Ao V2 VTI 35.4 cm LV V1 max PG 9.7 mmHg LV V1 mean PG 5.4 mmHg LV V1 max 155.6 cm/sec LV V1 mean 109.4 cm/sec LV V1 VTI 27.7 cm SV(Ao) 336.7 ml SI(Ao) 143.0 ml/m\S\2
--- NOTE | 2017-04-05 10:56 | INFECT. DISEASE CONSULTATION ---
DATE OF CONSULTATION: 04/05/2017 HISTORY OF PRESENT ILLNESS: This is a 61-year-old gentleman who was admitted to the hospital after he had worsening fevers and chills at home. Per the H&P, he had a fever as high as 104 degrees at home. He recently had a urologic procedure at [facility] in [place] on the . He had a followup appointment on the which did show spontaneous voiding through a patent urethra without leakage. His Madrigal catheter was removed; however, his suprapubic remained in place. He was due to follow up today for removal of his suprapubic catheter; however, last evening he developed shaking chills, fevers and abdominal pain. When he spoke to his urologist at [facility], it was recommended that he come to the Emergency Room for further treatment. In the ER, he did have a CAT scan of the abdomen and pelvis which showed the suprapubic catheter in place, bladder wall thickening and bilateral perinephric stranding. There was no evidence of collection. He had an elevated CRP of 12 and elevated sed rate of 42 and elevated white blood cell count at 16.8. His creatinine was elevated at 6.5 and his urinalysis showed large leukocyte esterase, greater than 30 WBCs, +3 bacteria and budding yeast. He was placed on Zosyn, vancomycin, fluconazole and norepinephrine for hypertension. His white blood cell count has mildly improved today to 15.6; however, he states he is feeling significantly better. His T-max on arrival was 38.2 but this morning he has been afebrile and he states his shaking chills have resolved completely. He currently denies any abdominal pain. He denies any bleeding, blood clots from the suprapubic catheter but does admit to increasing sediment since his initial procedure on 03/07/2017. His creatinine has improved to 5. His lactic acid was initially 4.7 but has improved to 2.6. Blood, urine and a wound culture of the scrotal area were sent from the ER, results of that are pending. He is tolerating antibiotics well. He denies any shortness of breath, chest pain, cough, nausea, vomiting or diarrhea. His remaining review of systems is unremarkable. MEDICAL HISTORY: Significant for urethral stricture with reconstructive surgery. FAMILY HISTORY: Noncontributory. SOCIAL HISTORY: Negative for alcohol use, drug use or tobacco use. ALLERGIES: HE HAS ALLERGIES TO FLOMAX ONLY. MEDICATIONS: Include Bacitracin ointment, insulin, Protonix, fluconazole, Zosyn, norepinephrine, Tylenol, morphine and a dose of vancomycin in the ER. PHYSICAL EXAMINATION: VITAL SIGNS: He is currently afebrile, T-max is 38.2, pulse 110, respiratory rate 18, blood pressure 114/62, oxygen saturation is 98% on nasal cannula oxygen. GENERAL: He is awake, alert and oriented x3. He is in no acute distress. HEENT: Mucous membranes are moist. Extraocular muscles are intact. HEART: Regular and tachycardic. LUNGS: Clear bilaterally. ABDOMEN: Soft, nontender, nondistended. EXTREMITIES: There is no lower extremity edema. SKIN: Without rash. There is a right femoral triple lumen catheter in place, suprapubic catheter is in place. LABORATORY STUDIES: CBC today reveals white blood cell count of 15.6, hemoglobin 9.5, platelets are 63. His ESR was 42. Chemistry panel this morning reveals sodium of 135, potassium 4.6, chloride 107, bicarbonate 18, BUN 66, creatinine 5.2, glucose 146. Lactic acid this morning is 2.6. Procalcitonin is 11.3, it was 25 on admission. Again, urinalysis had large leukocyte esterase, greater than 30 WBCs, 3+ bacteria and yeast. Vancomycin level this morning is 28.7. Flu swab was negative. Hep C antibody is negative. Blood cultures, urine cultures and wound cultures are all pending. IMAGING: As above. IMPRESSION AND PLAN: Sepsis, likely secondary to urinary source. He will be continued on empiric antibiotics pending the results of cultures. Urology and nephrology are following. Laboratory markers as well as clinical picture is improving since admission to the hospital. Antibiotics will be narrowed based on additional culture results. Thank you for this consultation.
[2017-04-05] MEDS: INSULIN ASPART 100 UNITS/ML 3 ML PEN SC SCH ×4 (11:46→23:54)
--- NOTE | 2017-04-05 13:57 | Progress Note ---
Internal Med Progress Note Date of Service: Apr 05, 2017. Provider Documentation: SUBJECTIVE: The patient was seen and examined Clinically a lot better Denies any symptoms today OBJECTIVE: Vital Signs-as noted below Exam: General-no ACUTE DISTRESS Eyes-NORMAL ENT-NORMAL Neck-SUPPLE Lungs-decreased breath sound bilaterally Heart-Regular,no murmur appreciated Abdomen-Benign,mildly tender ,no guarding and or rigidity Extremities-Trace edema bilaterally Neuro-AAOx3 Generally waek Lab data as noted below. CT of the Abd&Pel:1. A suprapubic bladder catheter is in place. The bladder wall is thickened and there is significant pericystic inflammatory stranding. Correlate clinically and with urinalysis for evidence of cystitis. 2. There is mild fullness of the renal collecting system bilaterally without hydronephrosis. Bilateral perinephric stranding is nonspecific. Correlate clinically and with urinalysis for evidence of pyelonephritis. 3. The appearance of the liver suggests cirrhosis. 4. The spleen is enlarged. 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 5. Trace pleural effusions. 6. Additional findings as above. ASSESSMENT & PLAN: SEVERE SEPSIS WITH SEPTIC SHOCK Met criteria and was admitted ti ICU Presented with Fever Temp 38 /HR 120 sinus tach /hypotension BP 61/33 Leukocytosis WBC 16 K , elevated lactic acid level > 4 /Pro Calcitonin > 20 /C- reactive protein > 12 ,Procalcitonin > 20 Source of infection -complicated UTI ( presence of chronic suprapubic catheter , recent urological procedure -Urethral reconstructive surgery on 03/06/17 ) Recent Voiding Cystourethrogram 04/02/17 : noted: vesicoureteral reflux noted R> L . Rt vesicoureteral reflux opacifies the rt collecting system CT abdomen /pelvis :As Above Started on Broad spectrum ABx Zosyn and Vancomycin Blood and urine culture ordered Appreciate ID and Urology input and recommendation COLLIN /ATN : Baseline cr 1.2 on 03/08/2017 ; GFR > 60 Presents with Cr > 6 Possible due to severe sepsis /hypotension /on ACEI /Lasix ER visit on 03/17/17 for COLLIN Cr was 1.6 Received NSAIDs and Bactrim AN op pt reports of adequate drainage of urine from suprapubic catheter aggressive IV fluid resuscitation 30 ml /KG BW per sepsis protocol avoid NSAID's /Contrast . all diuretics discontinued PRP monitor Q 4hrs per Sepsis protocol Nephrology consulted -appreciate input a LITTLE BETTER CLINICALLY CHRONIC SUPRAPUBIC CATHETER/RECENT RECONSTRUCTION OF OF URETHRA : NO Hydronephrosis in CT of the Abdomen and Pelvis due to urethral stricture /Bladder out let obstruction had Suprapubic catheter > 3 yrs had recent reconstruction surgery for urethra in [facility] on by Urology Dr Hernandez underwent : Single stage urethroplasty, ventral buccal mucosa graft substitution urethroplasty, harvest of buccal mucosa graft 6 cm x 2 cm , Cystoscopy pt had uneventful post op course Discharge home on 03/08/17 Had recent post surgery visit in [place] with Dr Hernandez on 04/02/17 : voiding cystourethrogram on 04/02/17 : Bladder filled normally with out intrinsic or extrinsic defect vesicoureteral reflux noted R> L . Rt vesicoureteral reflux opacifies the rt collecting system Patent Urethra during spontaneous voiding without evidence of leak. Madrigal Catheter was D/popeye and PLEASE DO NOT TRY TO REINSERT Was schedule to remove suprapubic catheter tomorrow 04/05/17 by Urology Continue suprapubic catheter drainage in setting of COLLIN /Hypotension/severe sepsis Urology consult requested, pt was seen by Dr Guzman in past No Madrigal please CHRONIC THROMBOCYTOPENIA : Platelet 62 on presentation Prior lab work Platelet 71 ( 03/06/17 ) -> 86 ( 03/07/17 ) -89 ( 03/08/17 ) Follows with Heme onc Dr Bowman [facility] [place] avoid antiplatelets , anticoagulation ordered for daily CBC HX OF PSORIATIC ARTHRITIS : was on Humira 20mg/0.4ml twice monthly on hold for severe sepsis HTN : presents with sepsis , vol depletion , hypotension /COLLIN Hold Lasix( was on 40 mg BID ) and ACEI -Lisinopril 5 mg daily cont IV resuscitation , pressor support ICU monitoring GERD: ordered PPI CODE STATUS : FULL CODE D/w PT DVT PROPHYLAXIS : Moderate to high risk pharmacological anticoagulation avoided - thrombocytopenia scd and teds DISPOSITION ; lives at home with independent in ADL;'s will need PT/OT eval when medically stable Social service contused for discharge planning Pt follows with Dr [facility] follow up with [facility] Vital Signs: Date Time Temp Pulse Resp B/P (MAP) Pulse Ox O2 Delivery O2 Flow Rate FiO2 04/05/17 12:07 117 18 133/64 (87) 93 Room Air 04/05/17 12:00 Room Air 04/05/17 10:00 105 18 105/63 (77) 95 Room Air 04/05/17 08:02 110 98 30 04/05/17 08:00 BiPAP 30 04/05/17 08:00 37.0 105 18 114/62 (79) 98 BiPAP 30 04/05/17 08:00 BiPAP 04/05/17 06:30 112 22 115/61 (79) 99 04/05/17 06:15 108 18 124/64 (84) 04/05/17 06:05 115 98 30 04/05/17 06:00 36.7 118 37 114/63 (80) 95 BiPAP 30 04/05/17 05:45 117 04/05/17 05:30 115 33 111/51 (71) 96 04/05/17 05:15 111 23 111/56 (74) 96 04/05/17 05:00 109 26 117/61 (79) 96 04/05/17 04:45 116 30 100/58 (72) 94 Nasal Cannula 2.0 04/05/17 04:45 116 30 100/58 (72) 94 04/05/17 04:30 113 26 99/55 (70) 96 04/05/17 04:16 113 42 98/86 (90) 97 04/05/17 04:15 111 37 76 04/05/17 04:00 36.7 111 32 109/49 (69) 97 04/05/17 04:00 95 Nasal Cannula 2.0 04/05/17 03:45 112 26 115/53 (73) 96 04/05/17 03:30 112 26 96/64 (75) 95 04/05/17 03:15 110 25 94/54 (67) 96 04/05/17 03:00 111 29 101/52 (68) 97 04/05/17 02:45 108 25 104/54 (71) 96 04/05/17 02:30 108 27 89/52 (64) 96 04/05/17 02:15 107 20 104/48 (66) 04/05/17 02:12 107 23 100/50 (67) 04/05/17 02:00 36.8 113 31 98/49 (65) 93 04/05/17 01:45 117 26 108/51 (70) 96 04/05/17 01:30 108 4 100/47 (64) 96 04/05/17 01:15 110 11 94/46 (62) 96 04/05/17 01:00 111 24 98/51 (67) 95 04/05/17 00:45 109 20 97/55 (69) 97 04/05/17 00:30 113 27 106/44 (64) 97 04/05/17 00:16 112 25 106/46 (66) 97 04/05/17 00:15 112 39 95 04/05/17 00:01 37.0 113 33 86/35 (52) 97 04/05/17 00:00 98 Room Air 2.0 04/05/17 00:00 103 30 70 04/04/17 22:00 107 20 77/40 (49) 97 04/04/17 21:45 108 20 88/41 (57) 98 Room Air 04/04/17 21:00 109 20 97/46 (56) 04/04/17 21:00 109 20 97/46 (63) 96 Room Air 04/04/17 20:54 37.9 112 18 89/45 (60) 95 Room Air 04/04/17 20:40 37.9 117 24 68/41 96 Nasal Cannula 2.0 04/04/17 20:06 112 22 85/45 95 Nasal Cannula 2.0 04/04/17 19:25 20 70/36 90 Room Air 04/04/17 18:48 38.2 123 20 74/35 94 Room Air 04/04/17 17:55 129 22 85/40 94 Room Air 04/04/17 17:40 135 22 104/38 93 Room Air 04/04/17 17:25 139 22 92/49 94 Room Air 04/04/17 17:21 104/47 04/04/17 17:10 38.1 140 22 104/47 95 Room Air 04/04/17 16:53 132 20 111/50 04/04/17 16:41 94 Room Air 04/04/17 16:40 131 22 97/45 96 Room Air 04/04/17 16:39 92/39 04/04/17 16:28 120 04/04/17 16:19 96/39 04/04/17 15:59 38.0 124 24 61/33 91 Room Air Lab Results: Results Past 24 Hours Test 04/04/17 16:15 04/04/17 16:38 04/04/17 16:39 04/04/17 18:22 Range/Units White Blood Count 16.86 4.8-10.8 K/uL Red Blood Count 3.24 4.7-6.1 M/uL Hemoglobin 10.3 14.0-18.0 g/dL Hematocrit 30.5 42-52 % Mean Corpuscular Volume 94.1 80-100 fL Mean Corpuscular Hemoglobin 31.8 25-34 pg Mean Corpuscular Hemoglobin Concent 33.8 32-36 g/dl Platelet Count 62 130-400 K/uL Mean Platelet Volume 9.6 7.4-10.4 fL Neutrophils (%) (Auto) 90.0 % Lymphocytes (%) (Auto) 3.5 % Monocytes (%) (Auto) 4.1 % Eosinophils (%) (Auto) 0.0 % Basophils (%) (Auto) 0.1 % Neutrophils # (Auto) 15.18 1.4-6.5 K/uL Lymphocytes # (Auto) 0.59 1.2-3.4 K/uL Monocytes # (Auto) 0.69 0.11-0.59 K/uL Eosinophils # (Auto) 0.00 0-0.5 K/uL Basophils # (Auto) 0.02 0-0.2 K/uL RDW Standard Deviation 50.2 36.4-46.3 fL RDW Coefficient of Variation 14.6 11.5-14.5 % Immature Granulocyte % (Auto) 2.3 % Immature Granulocyte # (Auto) 0.38 0.00-0.02 K/uL Hyposegmented Neutrophils 1+ Toxic Granulation 1+ Dohle Bodies 1+ Erythrocyte Sedimentation Rate 42 0-14 mm/hr Prothrombin Time 14.5 9.0-12.0 SECONDS Prothromb Time International Ratio 1.4 0.9-1.1 Activated Partial Thromboplast Time 33.6 21.0-31.0 SECONDS Partial Thromboplastin Ratio 1.3 Sodium Level 134 136-145 mmol/L Potassium Level 4.9 3.5-5.1 mmol/L Chloride Level 104 98-107 mmol/L Carbon Dioxide Level 17 21-32 mmol/L Anion Gap 13.0 3-11 mmol/L Blood Urea Nitrogen 65 7-18 mg/dl Creatinine 6.52 0.60-1.40 mg/dl Est Creatinine Clear Calc Drug Dose 15.3 ml/min Estimated GFR () 9.6 Estimated GFR (Non- 8.3 BUN/Creatinine Ratio 10.0 10-20 Random Glucose 156 70-99 mg/dl Calcium Level 8.3 8.5-10.1 mg/dl Phosphorus Level 4.5 2.5-4.9 mg/dl Magnesium Level 1.6 1.8-2.4 mg/dl Total Bilirubin 0.8 0.2-1 mg/dl Aspartate Amino Transf (AST/SGOT) 41 15-37 U/L Alanine Aminotransferase (ALT/SGPT) 30 12-78 U/L Alkaline Phosphatase 38 45-117 U/L Total Creatine Kinase 92 39-308 U/L Creatine Kinase MB 1.8 0.5-3.6 ng/ml Creatine Kinase MB Ratio 2.0 0-3.0 Troponin I 0.332 0-0.045 ng/ml C-Reactive Protein 12.40 0-0.29 mg/dl Pro-B-Type Natriuretic Peptide 4759 0-900 pg/ml Total Protein 6.7 6.4-8.2 gm/dl Albumin 2.3 3.4-5.0 gm/dl Globulin 4.4 2.5-4.0 gm/dl Albumin/Globulin Ratio 0.5 0.9-2 Lipase 30 73-393 U/L Procalcitonin 20.25 0-0.5 ng/ml Venous Blood pH 7.30 7.36-7.41 Venous Blood Partial Pressure CO2 34 38.0-50.0 mmHg Venous Blood Partial Pressure O2 32 mmHg Venous Blood HCO3 16 mmol/L Venous Blood Oxygen Saturation < 60.0 % Venous Blood Base Excess -9.4 mEq/L Influenza Type A Antigen Neg for Influ A NEG Influenza Type B Antigen Neg for Influ B NEG Urine Color DK YELLOW Urine Appearance TURBID CLEAR Urine pH 5.0 4.5-7.5 Urine Specific [place] 1.018 1.000-1.030 Urine Protein 2+ NEG Urine Glucose (UA) NEG NEG Urine Ketones NEG NEG Urine Occult Blood 3+ NEG Urine Nitrite NEG NEG Urine Bilirubin NEG NEG Urine Urobilinogen NEG NEG Urine Leukocyte Esterase LARGE NEG Urine WBC (Auto) >30 0-5 /hpf Urine RBC (Auto) 10-30 0-4 /hpf Urine Hyaline Casts (Auto) 5-10 0-5 /lpf Urine Epithelial Cells (Auto) >30 0-5 /lpf Urine Bacteria (Auto) 3+ NEG Urine Yeast (Auto) BUD W/ HYPHAE NONE PRSENT Test 04/04/17 20:10 04/04/17 20:44 04/04/17 20:57 04/04/17 23:57 Range/Units Hemoglobin 8.9 9.1 14.0-18.0 g/dL Hematocrit 25.8 26.8 42-52 % Sodium Level 136 134 136-145 mmol/L Potassium Level 4.8 4.8 3.5-5.1 mmol/L Chloride Level 107 106 98-107 mmol/L Carbon Dioxide Level 17 19 21-32 mmol/L Anion Gap 12.0 9.0 3-11 mmol/L Blood Urea Nitrogen 67 67 7-18 mg/dl Creatinine 6.00 5.74 0.60-1.40 mg/dl Est Creatinine Clear Calc Drug Dose 16.6 18.0 ml/min Estimated GFR () 10.7 11.3 Estimated GFR (Non- 9.2 9.7 BUN/Creatinine Ratio 11.1 11.4 10-20 Random Glucose 153 155 70-99 mg/dl Lactic Acid Level 4.7 2.8 0.4-2.0 mmol/L Calcium Level 7.4 7.2 8.5-10.1 mg/dl Magnesium Level 1.5 1.8 1.8-2.4 mg/dl Bedside Glucose 217 70-99 mg/dl Troponin I 0.324 0-0.045 ng/ml Hepatitis C Antibody Screen NEG NEG Test 04/05/17 00:03 04/05/17 03:56 04/05/17 06:06 04/05/17 06:12 Range/Units Bedside Glucose (other) 152 146 70-99 mg/dl White Blood Count 15.69 4.8-10.8 K/uL Red Blood Count 2.84 4.7-6.1 M/uL Hemoglobin 9.2 9.5 14.0-18.0 g/dL Hematocrit 26.5 27.2 42-52 % Mean Corpuscular Volume 93.3 80-100 fL Mean Corpuscular Hemoglobin 32.4 25-34 pg Mean Corpuscular Hemoglobin Concent 34.7 32-36 g/dl RDW Standard Deviation 49.5 36.4-46.3 fL RDW Coefficient of Variation 14.5 11.5-14.5 % Platelet Count 63 130-400 K/uL Mean Platelet Volume 9.1 7.4-10.4 fL Prothrombin Time 14.0 9.0-12.0 SECONDS Prothromb Time International Ratio 1.3 0.9-1.1 Sodium Level 133 135 136-145 mmol/L Potassium Level 4.6 4.6 3.5-5.1 mmol/L Chloride Level 107 107 98-107 mmol/L Carbon Dioxide Level 18 18 21-32 mmol/L Anion Gap 8.0 10.0 3-11 mmol/L Blood Urea Nitrogen 67 66 7-18 mg/dl Creatinine 5.49 5.42 0.60-1.40 mg/dl Est Creatinine Clear Calc Drug Dose 18.8 19.4 ml/min Estimated GFR () 11.9 12.1 Estimated GFR (Non- 10.2 10.4 BUN/Creatinine Ratio 12.2 12.2 10-20 Random Glucose 141 150 70-99 mg/dl Estimated Average Glucose 120 mg/dl Hemoglobin A1c 5.8 4.5-5.6 % Lactic Acid Level 2.2 2.6 0.4-2.0 mmol/L Calcium Level 7.0 7.2 8.5-10.1 mg/dl Phosphorus Level 4.5 2.5-4.9 mg/dl Magnesium Level 1.8 1.9 1.8-2.4 mg/dl Total Bilirubin 0.9 0.2-1 mg/dl Direct Bilirubin 0.5 0-0.2 mg/dl Aspartate Amino Transf (AST/SGOT) 52 15-37 U/L Alanine Aminotransferase (ALT/SGPT) 31 12-78 U/L Alkaline Phosphatase 33 45-117 U/L Troponin I 0.330 0-0.045 ng/ml Total Protein 5.9 6.4-8.2 gm/dl Albumin 1.9 3.4-5.0 gm/dl Globulin 4.0 2.5-4.0 gm/dl Albumin/Globulin Ratio 0.5 0.9-2 Lipase 22 73-393 U/L Procalcitonin 11.93 0-0.5 ng/ml Random Vancomycin Level 28.7 mcg/ml Test 04/05/17 11:40 Range/Units Bedside Glucose 165 70-99 mg/dl Microbiology Results 04/05/17 Fungal Smear, Received Pending 04/05/17 Fungal Culture, Received Pending 04/04/17 Blood Culture, Received Pending 04/04/17 Blood Culture - Preliminary, Resulted Gram Positive Cocci 04/04/17 Urine Culture, Received Pending 04/05/17 Gram Stain, Received Pending 04/05/17 Wound Culture, Received Pending
--- NOTE | 2017-04-05 18:51 | Critical Care Progress Note ---
Critical Care Progress Note Date of Service Apr 05, 2017. Attending Dr. 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 June d/c the fluconazole Trend procalcitonin Platelets chronically low, at baseline Urology and ID consults noted OOB to chair DVT prophylaxis: SCDs Critical care time spent with patient, reviewing the chart, discussing with consultants, more than 30 minutes Data Medications: Current Inpatient Medications Medications (Trade) Dose Ordered Sig/Min Route Start Time Stop Time Status Last Admin Dose Admin Piperacillin Sod/ Tazobactam Sod 4.5 gm/Dextrose 120 ml @ 30 mls/hr Q12H IV 04/05/17 04:00 04/14/17 20:59 04/05/17 15:32 30 MLS/HR Acetaminophen (Tylenol Tab) 650 mg Q4H PRN PO 04/04/17 19:15 05/04/17 19:14 Pantoprazole Sodium 40 mg/ Syringe 10 ml @ 5 mls/min DAILY IV 04/05/17 09:00 05/05/17 08:59 04/05/17 08:46 5 MLS/MIN Morphine Sulfate (MoRPHine SULFATE INJ) 2 mg Q2H PRN IV 04/04/17 19:15 04/18/17 19:14 04/05/17 07:44 2 MG Miscellaneous Information (Consult) 1 ea UD PRN N/A 04/04/17 19:15 05/04/17 19:14 Miscellaneous Information (Consult) 1 ea UD PRN N/A 04/04/17 20:30 05/04/17 20:29 Norepinephrine Bitartrate 8 mg/ Dextrose 508 ml @ 0 mls/hr Q0M IV 04/04/17 21:00 05/04/17 20:59 04/05/17 07:44 101 MLS/HR Glucose (Glucose 40% Gel) 15-30 GRAMS 15 GRAMS... UD PRN PO 04/05/17 00:30 05/05/17 00:29 Glucose (Glucose Chew Tab) 4-8 Tablets 4 Tabl... UD PRN PO 04/05/17 00:30 05/05/17 00:29 Dextrose (Dextrose 50% 50ML Syringe) 25-50ML OF 50% DW IV FOR... UD PRN IV 04/05/17 00:30 05/05/17 00:29 Glucagon (Glucagon Inj) 1 mg UD PRN SQ 04/05/17 00:30 05/05/17 00:29 Sodium Chloride 1,000 ml @ 100 mls/hr Q10H IV 04/05/17 01:00 05/05/17 00:59 04/05/17 09:58 100 MLS/HR Fluconazole/ Sodium Chloride 100 mg/Prmx 50 ml @ 100 mls/hr DAILY IV 04/05/17 09:00 04/15/17 08:59 04/05/17 08:46 100 MLS/HR Albumin Human (Albumin 25%) 12.5 gm 0900,1000,2100,2200 IV 04/05/17 09:00 04/08/17 08:59 04/05/17 10:12 12.5 GM Bacitracin (Bacitracin Oint) 1 appln BID EXT 04/05/17 21:00 05/05/17 20:59 04/05/17 09:56 1 APPLN Miscellaneous Information (Consult Glycemic Management Pharmacy) 1 ea UD PRN N/A 04/05/17 09:45 05/05/17 09:44 Insulin Glargine (Lantus Solostar Pen) See protocol text Q12 SC 04/05/17 21:00 05/05/17 20:59 Insulin Aspart (novoLOG ASPART) SLIDING SCALE Q4 SC 04/05/17 12:00 05/05/17 11:59 I & O: 24-Hour Column 04/06/17 08:00 Intake Total 1950 ml Output Total 950 ml Balance 1000 ml Vital Signs: Date Time Temp Pulse Resp B/P (MAP) Pulse Ox O2 Delivery O2 Flow Rate FiO2 04/05/17 17:00 124 24 110/62 (78) 92 Room Air 04/05/17 16:02 Room Air 04/05/17 16:00 37.6 117 22 120/55 (76) 95 Room Air 04/05/17 14:07 37.1 110 18 116/53 (74) 93 Room Air 04/05/17 12:07 117 18 133/64 (87) 93 Room Air 04/05/17 12:00 Room Air 04/05/17 10:00 105 18 105/63 (77) 95 Room Air 04/05/17 08:02 110 98 30 04/05/17 08:00 BiPAP 30 04/05/17 08:00 37.0 105 18 114/62 (79) 98 BiPAP 30 04/05/17 08:00 BiPAP 04/05/17 06:30 112 22 115/61 (79) 99 04/05/17 06:15 108 18 124/64 (84) 04/05/17 06:05 115 98 30 04/05/17 06:00 36.7 118 37 114/63 (80) 95 BiPAP 30 04/05/17 05:45 117 04/05/17 05:30 115 33 111/51 (71) 96 04/05/17 05:15 111 23 111/56 (74) 96 04/05/17 05:00 109 26 117/61 (79) 96 04/05/17 04:45 116 30 100/58 (72) 94 Nasal Cannula 2.0 04/05/17 04:45 116 30 100/58 (72) 94 04/05/17 04:30 113 26 99/55 (70) 96 04/05/17 04:16 113 42 98/86 (90) 97 04/05/17 04:15 111 37 76 04/05/17 04:00 36.7 111 32 109/49 (69) 97 04/05/17 04:00 95 Nasal Cannula 2.0 04/05/17 03:45 112 26 115/53 (73) 96 04/05/17 03:30 112 26 96/64 (75) 95 04/05/17 03:15 110 25 94/54 (67) 96 04/05/17 03:00 111 29 101/52 (68) 97 04/05/17 02:45 108 25 104/54 (71) 96 04/05/17 02:30 108 27 89/52 (64) 96 04/05/17 02:15 107 20 104/48 (66) 04/05/17 02:12 107 23 100/50 (67) 04/05/17 02:00 36.8 113 31 98/49 (65) 93 04/05/17 01:45 117 26 108/51 (70) 96 04/05/17 01:30 108 4 100/47 (64) 96 04/05/17 01:15 110 11 94/46 (62) 96 04/05/17 01:00 111 24 98/51 (67) 95 04/05/17 00:45 109 20 97/55 (69) 97 04/05/17 00:30 113 27 106/44 (64) 97 04/05/17 00:16 112 25 106/46 (66) 97 04/05/17 00:15 112 39 95 04/05/17 00:01 37.0 113 33 86/35 (52) 97 04/05/17 00:00 98 Room Air 2.0 04/05/17 00:00 103 30 70 04/04/17 22:00 107 20 77/40 (49) 97 04/04/17 21:45 108 20 88/41 (57) 98 Room Air 04/04/17 21:00 109 20 97/46 (56) 04/04/17 21:00 109 20 97/46 (63) 96 Room Air 04/04/17 20:54 37.9 112 18 89/45 (60) 95 Room Air 04/04/17 20:40 37.9 117 24 68/41 96 Nasal Cannula 2.0 04/04/17 20:06 112 22 85/45 95 Nasal Cannula 2.0 04/04/17 19:25 20 70/36 90 Room Air 04/04/17 18:48 38.2 123 20 74/35 94 Room Air Laboratory Results: Last 24 Hours Test 04/04/17 20:10 04/04/17 20:44 04/04/17 20:57 04/04/17 23:57 Hemoglobin 8.9 g/dL 9.1 g/dL Hematocrit 25.8 % 26.8 % Sodium Level 136 mmol/L 134 mmol/L Potassium Level 4.8 mmol/L 4.8 mmol/L Chloride Level 107 mmol/L 106 mmol/L Carbon Dioxide Level 17 mmol/L 19 mmol/L Anion Gap 12.0 mmol/L 9.0 mmol/L Blood Urea Nitrogen 67 mg/dl 67 mg/dl Creatinine 6.00 mg/dl 5.74 mg/dl Est Creatinine Clear Calc Drug Dose 16.6 ml/min 18.0 ml/min Estimated GFR () 10.7 11.3 Estimated GFR (Non- 9.2 9.7 BUN/Creatinine Ratio 11.1 11.4 Random Glucose 153 mg/dl 155 mg/dl Lactic Acid Level 4.7 mmol/L 2.8 mmol/L Calcium Level 7.4 mg/dl 7.2 mg/dl Magnesium Level 1.5 mg/dl 1.8 mg/dl Bedside Glucose 217 mg/dl Troponin I 0.324 ng/ml Hepatitis C Antibody Screen NEG Test 04/05/17 00:03 04/05/17 03:56 04/05/17 06:06 04/05/17 06:12 Bedside Glucose (other) 152 mg/dl 146 mg/dl White Blood Count 15.69 K/uL Red Blood Count 2.84 M/uL Hemoglobin 9.2 g/dL 9.5 g/dL Hematocrit 26.5 % 27.2 % Mean Corpuscular Volume 93.3 fL Mean Corpuscular Hemoglobin 32.4 pg Mean Corpuscular Hemoglobin Concent 34.7 g/dl RDW Standard Deviation 49.5 fL RDW Coefficient of Variation 14.5 % Platelet Count 63 K/uL Mean Platelet Volume 9.1 fL Prothrombin Time 14.0 SECONDS Prothromb Time International Ratio 1.3 Sodium Level 133 mmol/L 135 mmol/L Potassium Level 4.6 mmol/L 4.6 mmol/L Chloride Level 107 mmol/L 107 mmol/L Carbon Dioxide Level 18 mmol/L 18 mmol/L Anion Gap 8.0 mmol/L 10.0 mmol/L Blood Urea Nitrogen 67 mg/dl 66 mg/dl Creatinine 5.49 mg/dl 5.42 mg/dl Est Creatinine Clear Calc Drug Dose 18.8 ml/min 19.4 ml/min Estimated GFR () 11.9 12.1 Estimated GFR (Non- 10.2 10.4 BUN/Creatinine Ratio 12.2 12.2 Random Glucose 141 mg/dl 150 mg/dl Estimated Average Glucose 120 mg/dl Hemoglobin A1c 5.8 % Lactic Acid Level 2.2 mmol/L 2.6 mmol/L Calcium Level 7.0 mg/dl 7.2 mg/dl Phosphorus Level 4.5 mg/dl Magnesium Level 1.8 mg/dl 1.9 mg/dl Total Bilirubin 0.9 mg/dl Direct Bilirubin 0.5 mg/dl Aspartate Amino Transf (AST/SGOT) 52 U/L Alanine Aminotransferase (ALT/SGPT) 31 U/L Alkaline Phosphatase 33 U/L Troponin I 0.330 ng/ml Total Protein 5.9 gm/dl Albumin 1.9 gm/dl Globulin 4.0 gm/dl Albumin/Globulin Ratio 0.5 Lipase 22 U/L Procalcitonin 11.93 ng/ml Random Vancomycin Level 28.7 mcg/ml Test 04/05/17 11:40 04/05/17 16:25 Bedside Glucose 165 mg/dl 129 mg/dl
[2017-04-05] MEDS: ACETAMINOPHEN 325 MG TAB PO PRN (18:59)
[2017-04-05] MEDS: INSULIN GLARGINE SOLOSTAR 100 UNITS/ML 3 ML PEN SC SCH (20:24)
[2017-04-05] MEDS ORDERED: NOREPINEPHRINE BIT INJ 8 MG in DEXTROSE 5% 500ML 500 ML IV PRN (22:30)
[2017-04-06] VITALS (34 sets, daily range): BP systolic 96–130; BP diastolic 53–76; PULSE 92–119; TEMP 36.8–38; O2SAT 89–98
[2017-04-06] MEDS: INSULIN ASPART 100 UNITS/ML 3 ML PEN SC SCH ×5 (04:00→20:36)
[2017-04-06] MEDS: PIPERACILL/TAZOBAC IV 4.5 GM in DEXTROSE 5% 100ML 100 ML IV SCH ×2 (05:28→16:34)
[2017-04-06] MEDS: SODIUM CHLORIDE 0.9% 1000ML 1,000 ML IV SCH ×2 (05:30→16:34)
[2017-04-06 05:52] LABS: HEMATOCRIT 23.4 % (42-52); HEMOGLOBIN 7.9 g/dL (14.0-18.0); MEAN CELL VOLUME 92.1 fL (80-100); MEAN CORPUSCULAR HEMOGLOBIN 31.1 pg (25-34); MEAN CORPUSCULAR HGB CONC 33.8 g/dl (32-36); RED CELL DISTRIBUTION WIDTH CV 14.9 % (11.5-14.5); RED CELL DISTRIBUTION WIDTH SD 50.6 fL (36.4-46.3); WHITE BLOOD COUNT 6.34 K/uL (4.8-10.8)
[2017-04-06 06:12] LABS: INR 1.3 (0.9-1.1)
[2017-04-06 06:13] LABS: MEAN PLATELET VOLUME 9.6 fL (7.4-10.4); PLATELET COUNT 34 K/uL (130-400)
[2017-04-06 06:23] LABS: ALBUMIN 2.2 gm/dl (3.4-5.0); CALCIUM 8.1 mg/dl (8.5-10.1); CREATININE 4.19 mg/dl (0.60-1.40); POTASSIUM 4.5 mmol/L (3.5-5.1)
[2017-04-06 06:31] LABS: PHOSPHORUS 3.4 mg/dl (2.5-4.9); TOTAL PROTEIN 5.6 gm/dl (6.4-8.2)
--- NOTE | 2017-04-06 07:26 | DIAGNOSTIC IMAGING REPORT ---
CHEST ONE VIEW PORTABLE CLINICAL HISTORY: 61 years-old Male presenting with SOB. TECHNIQUE: Portable upright AP view of the chest was obtained. COMPARISON: 04/05/2017. FINDINGS: Atherosclerosis of aortic arch. Cardiac silhouette enlarged. Pulmonary vascular prominence. Minimal left basilar opacity, unchanged. Mildly low lung volumes with hypoventilatory changes. Trace bilateral pleural effusions may be present. No pneumothorax. Degenerative changes of the thoracic spine. Cholecystectomy clips noted. IMPRESSION: 1. Cardiomegaly with persistent volume overload. No santino pulmonary edema. 2. Trace bilateral pleural effusions suspected. 3. No focal infiltrate to suggest pneumonia. Electronically signed by: Thaddeus Saavedra M.D. 04/06/2017 7:25 AM Dictated Date/Time: 04/06/2017 7:23 AM
[2017-04-06] MEDS: INSULIN GLARGINE SOLOSTAR 100 UNITS/ML 3 ML PEN SC SCH ×2 (08:22→20:35)
[2017-04-06] MEDS: PANTOprazole INJ 40 MG in SYRINGE 0 ML IV SCH (08:25)
[2017-04-06] MEDS: ALBUMIN HUMAN 25% 12.5 GM/50 ML VIAL IV SCH ×4 (08:26→22:08)
[2017-04-06] MEDS: BACITRACIN OINT 15 GM TUBE EXT SCH ×2 (08:27→20:34)
--- NOTE | 2017-04-06 10:27 | Pharmacy Progress Note ---
Pharmacy Glycemic Short Note 2 Date of Service Apr 06, 2017. OUTPATIENT ANTIDIABETIC REGIMEN: * N/A ASSESSMENT: * Mr Quiñonez is a 61 y/o M with a PMH of suprapubic catheter who presents with sepsis from a urinary source. He was initially started on norepinephrine but this was discontinued yesterday. He received a total of 15 units of insulin yesterday with BSGs ranging from 87-165 mg/dL. Fasting this morning is 103 mg/ dL. * For Lantus, a scale was established with 10 units of Lantus if blood sugar greater than 140 mg/dL... uncertain if stress from infection will increase blood sugars. For Novolog, since the patient was NPO yesterday, loosened slightly as only required 15 units of Lantus yesterday and 46 units of Lantus the day before (04/04/17). Most likely weight-based stress of 2 will be too aggressive. PLAN FOR INPATIENT GLYCEMIC CONTROL: * Basal insulin * Lantus 0-10 units SQ BID * Bolus insulin * NovoLog per scale ACHS or Q6hrs while NPO * Goal Range: Low 110 mg/dL - High 140 mg/dL * Correction Factor: 20 mg/dL/unit * Nutritional / Prandial insulin per carb ratio of 1 unit per 7 grams CHO consumed PLAN FOR DISCHARGE: * Patient's HbA1C indicates he is a pre-diabetic. Recommend dietary counseling and lifestyle modifications.
--- NOTE | 2017-04-06 13:12 | Progress Note ---
Internal Med Progress Note Date of Service: Apr 06, 2017. Provider Documentation: SUBJECTIVE: The patient was seen and examined Clinically a lot better Denies any symptoms today Even brighter today OBJECTIVE: Vital Signs-as noted below Exam: General-no acute distress Eyes-NORMAL ENT-NORMAL Neck-SUPPLE Lungs-decreased breath sound bilaterally Heart-Regular,no murmur appreciated Abdomen-Benign,mildly tender ,no guarding and or rigidity Extremities-Trace edema bilaterally Neuro-AAOx3 Generally weak Lab data as noted below. CT of the Abd&Pel:1. A suprapubic bladder catheter is in place. The bladder wall is thickened and there is significant pericystic inflammatory stranding. Correlate clinically and with urinalysis for evidence of cystitis. 2. There is mild fullness of the renal collecting system bilaterally without hydronephrosis. Bilateral perinephric stranding is nonspecific. Correlate clinically and with urinalysis for evidence of pyelonephritis. 3. The appearance of the liver suggests cirrhosis. 4. The spleen is enlarged. 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 5. Trace pleural effusions. 6. Additional findings as above. ASSESSMENT & PLAN: SEVERE SEPSIS WITH SEPTIC SHOCK ::Gamma Hemolytic Strepto Bacteremia-NOT ENTEROCOCCI in Urine Met criteria and was admitted ti ICU Presented with Fever Temp 38 /HR 120 sinus tach /hypotension BP 61/33 Leukocytosis WBC 16 K , elevated lactic acid level > 4 /Pro Calcitonin > 20 /C- reactive protein > 12 ,Procalcitonin > 20 Source of infection -complicated UTI ( presence of chronic suprapubic catheter , recent urological procedure -Urethral reconstructive surgery on 03/06/17 ) Recent Voiding Cystourethrogram 04/02/17 : noted: vesicoureteral reflux noted R> L . Rt vesicoureteral reflux opacifies the rt collecting system CT abdomen /pelvis :As Above Started on Broad spectrum ABx Zosyn and Vancomycin Blood and urine culture ordered -Gm Positive Streptococci-not enterococci Appreciate ID and Urology input and recommendation Clinically better Continue current antibiotics COLLIN /ATN : Baseline cr 1.2 on 03/08/2017 ; GFR > 60 Presents with Cr > 6 Possible due to severe sepsis /hypotension /on ACEI /Lasix ER visit on 03/17/17 for COLLIN Cr was 1.6 Received NSAIDs and Bactrim AN op pt reports of adequate drainage of urine from suprapubic catheter aggressive IV fluid resuscitation 30 ml /KG BW per sepsis protocol avoid NSAID's /Contrast . all diuretics discontinued PRP monitor Q 4hrs per Sepsis protocol Nephrology consulted -appreciate input Getting better CHRONIC SUPRAPUBIC CATHETER/RECENT RECONSTRUCTION OF OF URETHRA : NO Hydronephrosis in CT of the Abdomen and Pelvis due to urethral stricture /Bladder out let obstruction had Suprapubic catheter > 3 yrs had recent reconstruction surgery for urethra in [facility] on by Urology Dr Hernandez underwent : Single stage urethroplasty, ventral buccal mucosa graft substitution urethroplasty, harvest of buccal mucosa graft 6 cm x 2 cm , Cystoscopy pt had uneventful post op course Discharge home on 03/08/17 Had recent post surgery visit in [place] with Dr Hernandez on 04/02/17 : voiding cystourethrogram on 04/02/17 : Bladder filled normally with out intrinsic or extrinsic defect vesicoureteral reflux noted R> L . Rt vesicoureteral reflux opacifies the rt collecting system Patent Urethra during spontaneous voiding without evidence of leak. Madrigal Catheter was D/popeye and PLEASE DO NOT TRY TO REINSERT Draining normally Was schedule to remove suprapubic catheter tomorrow 04/05/17 by Urology Continue suprapubic catheter drainage in setting of COLLIN /Hypotension/severe sepsis Urology consult requested, pt was seen by Dr Guzman in past No Madrigal please CHRONIC THROMBOCYTOPENIA : Platelet 62 on presentation Prior lab work Platelet 71 ( 03/06/17 ) -> 86 ( 03/07/17 ) -89 ( 03/08/17 ) Plartelet 34 today 04/06/17 Follows with Heme onc Dr Bowman [facility] avoid antiplatelets , anticoagulation ordered for daily CBC HX OF PSORIATIC ARTHRITIS : was on Humira 20mg/0.4ml twice monthly on hold for severe sepsis HTN : presents with sepsis , vol depletion , hypotension /COLLIN Hold Lasix( was on 40 mg BID ) and ACEI -Lisinopril 5 mg daily cont IV resuscitation , pressor support ICU monitoring GERD: ordered PPI CODE STATUS : FULL CODE D/w PT DVT PROPHYLAXIS : Moderate to high risk pharmacological anticoagulation avoided - thrombocytopenia scd and teds DISPOSITION ; lives at home with independent in ADL;'s will need PT/OT eval when medically stable Social service contused for discharge planning Pt follows with Dr [facility] Urology follow up with [facility] Vital Signs: Date Time Temp Pulse Resp B/P (MAP) Pulse Ox O2 Delivery O2 Flow Rate FiO2 04/06/17 08:00 98 Room Air 04/06/17 08:00 37.1 110 26 114/62 (79) 98 Room Air 04/06/17 07:08 37.1 04/06/17 05:00 103 22 96/59 (71) 97 Nasal Cannula 2.0 04/06/17 04:45 109 21 110/55 (73) 97 Nasal Cannula 2.0 04/06/17 04:30 105 22 106/58 (74) 96 Nasal Cannula 2.0 04/06/17 04:15 110 23 105/58 (74) 98 Nasal Cannula 2.0 04/06/17 04:00 38.0 111 24 109/58 (75) 98 Nasal Cannula 2.0 04/06/17 04:00 Nasal Cannula 2.0 04/06/17 03:45 106 26 100/63 (75) 97 Nasal Cannula 2.0 04/06/17 03:30 109 27 100/61 (74) 98 Nasal Cannula 2.0 04/06/17 03:15 114 24 113/59 (77) 95 Nasal Cannula 2.0 04/06/17 03:00 112 25 117/58 (77) 97 Nasal Cannula 2.0 04/06/17 02:45 113 26 110/66 (81) 97 Nasal Cannula 2.0 04/06/17 02:30 106 24 121/57 (78) 97 Nasal Cannula 2.0 04/06/17 02:15 114 24 117/70 (86) 97 Nasal Cannula 2.0 04/06/17 02:00 114 22 109/53 (71) 96 Nasal Cannula 2.0 04/06/17 01:45 106 21 129/62 (84) 96 Nasal Cannula 2.0 04/06/17 01:30 105 23 105/64 (78) 97 Nasal Cannula 2.0 04/06/17 01:15 110 22 118/68 (85) 97 Nasal Cannula 2.0 04/06/17 01:00 110 26 123/60 (81) 98 Nasal Cannula 2.0 04/06/17 00:45 104 24 111/63 (79) 97 Nasal Cannula 2.0 04/06/17 00:30 100 25 116/60 (78) 98 Nasal Cannula 2.0 04/06/17 00:15 100 25 112/66 (81) 97 Nasal Cannula 2.0 04/06/17 00:01 Nasal Cannula 2.0 04/06/17 00:00 37.0 95 26 125/60 (81) 97 Nasal Cannula 2.0 04/05/17 23:45 106 18 116/60 (78) 97 Nasal Cannula 2.0 04/05/17 23:30 97 15 111/60 (77) 98 Nasal Cannula 2.0 04/05/17 23:15 98 28 97/60 (72) 99 Nasal Cannula 2.0 04/05/17 23:00 97 25 98/49 (65) 98 Nasal Cannula 2.0 04/05/17 22:28 97 23 74/37 (49) 98 Nasal Cannula 2.0 04/05/17 22:23 98 22 74/38 (50) 98 04/05/17 22:22 97 24 77/47 (57) 98 04/05/17 22:00 102 20 80/42 (55) 95 Room Air 04/05/17 21:00 106 22 83/41 (55) 95 Room Air 04/05/17 20:00 37.2 120 24 101/58 (72) 94 Room Air 04/05/17 20:00 Room Air 04/05/17 19:00 38.4 120 20 103/58 (73) 92 Room Air 04/05/17 17:00 124 24 110/62 (78) 92 Room Air 04/05/17 16:02 Room Air 04/05/17 16:00 37.6 117 22 120/55 (76) 95 Room Air 04/05/17 14:07 37.1 110 18 116/53 (74) 93 Room Air Lab Results: Results Past 24 Hours Test 04/05/17 16:25 04/05/17 20:21 04/05/17 23:50 04/06/17 05:06 Range/Units Bedside Glucose 129 124 87 70-99 mg/dl White Blood Count 6.34 4.8-10.8 K/uL Red Blood Count 2.54 4.7-6.1 M/uL Hemoglobin 7.9 14.0-18.0 g/dL Hematocrit 23.4 42-52 % Mean Corpuscular Volume 92.1 80-100 fL Mean Corpuscular Hemoglobin 31.1 25-34 pg Mean Corpuscular Hemoglobin Concent 33.8 32-36 g/dl RDW Standard Deviation 50.6 36.4-46.3 fL RDW Coefficient of Variation 14.9 11.5-14.5 % Platelet Count 34 130-400 K/uL Mean Platelet Volume 9.6 7.4-10.4 fL Prothrombin Time 13.1 9.0-12.0 SECONDS Prothromb Time International Ratio 1.3 0.9-1.1 Sodium Level 137 136-145 mmol/L Potassium Level 4.5 3.5-5.1 mmol/L Chloride Level 112 98-107 mmol/L Carbon Dioxide Level 18 21-32 mmol/L Anion Gap 7.0 3-11 mmol/L Blood Urea Nitrogen 60 7-18 mg/dl Creatinine 4.19 0.60-1.40 mg/dl Est Creatinine Clear Calc Drug Dose 25.1 ml/min Estimated GFR () 16.5 Estimated GFR (Non- 14.2 BUN/Creatinine Ratio 14.3 10-20 Random Glucose 89 70-99 mg/dl Calcium Level 8.1 8.5-10.1 mg/dl Phosphorus Level 3.4 2.5-4.9 mg/dl Magnesium Level 2.0 1.8-2.4 mg/dl Total Bilirubin 1.2 0.2-1 mg/dl Direct Bilirubin 0.7 0-0.2 mg/dl Aspartate Amino Transf (AST/SGOT) 55 15-37 U/L Alanine Aminotransferase (ALT/SGPT) 29 12-78 U/L Alkaline Phosphatase 29 45-117 U/L Total Protein 5.6 6.4-8.2 gm/dl Albumin 2.2 3.4-5.0 gm/dl Globulin 3.4 2.5-4.0 gm/dl Albumin/Globulin Ratio 0.6 0.9-2 Lipase 66 73-393 U/L Procalcitonin 5.91 0-0.5 ng/ml Random Vancomycin Level 23.4 mcg/ml Test 04/06/17 05:29 Range/Units Bedside Glucose 103 70-99 mg/dl Microbiology Results 04/06/17 C.difficile Toxin B Gene (PCR), Received Pending 04/06/17 WBC Smear, Received Pending 04/06/17 Shiga Toxin Test, Received Pending 04/06/17 Stool Culture, Received Pending
[2017-04-06] MEDS: ACETAMINOPHEN 325 MG TAB PO PRN ×2 (13:29→20:34)
--- NOTE | 2017-04-06 14:18 | Progress Note ---
Subjective Date of Service: Apr 06, 2017. Subjective Pt evaluation today including: conversation w/ patient, physical exam, chart review, lab review pt feels well off pressors sitting up Problem List Medical Problems: (1) Acute renal failure Status: Acute (2) Complication of catheter Status: Acute (3) Cystitis Status: Acute (4) Elevated troponin Status: Acute (5) Hypomagnesemia Status: Acute (6) Hypotension Status: Acute (7) Pyelonephritis Status: Acute (8) Renal failure Status: Acute (9) Renal insufficiency Status: Acute (10) Sepsis due to urinary tract infection Status: Acute (11) Septic shock Status: Acute Objective Vital Signs Date Time Temp Pulse Resp B/P (MAP) Pulse Ox O2 Delivery O2 Flow Rate FiO2 04/06/17 12:00 96 Room Air 04/06/17 08:00 98 Room Air 04/06/17 08:00 37.1 110 26 114/62 (79) 98 Room Air 04/06/17 07:08 37.1 04/06/17 05:00 103 22 96/59 (71) 97 Nasal Cannula 2.0 04/06/17 04:45 109 21 110/55 (73) 97 Nasal Cannula 2.0 04/06/17 04:30 105 22 106/58 (74) 96 Nasal Cannula 2.0 04/06/17 04:15 110 23 105/58 (74) 98 Nasal Cannula 2.0 04/06/17 04:00 38.0 111 24 109/58 (75) 98 Nasal Cannula 2.0 04/06/17 04:00 Nasal Cannula 2.0 04/06/17 03:45 106 26 100/63 (75) 97 Nasal Cannula 2.0 04/06/17 03:30 109 27 100/61 (74) 98 Nasal Cannula 2.0 04/06/17 03:15 114 24 113/59 (77) 95 Nasal Cannula 2.0 04/06/17 03:00 112 25 117/58 (77) 97 Nasal Cannula 2.0 04/06/17 02:45 113 26 110/66 (81) 97 Nasal Cannula 2.0 04/06/17 02:30 106 24 121/57 (78) 97 Nasal Cannula 2.0 04/06/17 02:15 114 24 117/70 (86) 97 Nasal Cannula 2.0 04/06/17 02:00 114 22 109/53 (71) 96 Nasal Cannula 2.0 04/06/17 01:45 106 21 129/62 (84) 96 Nasal Cannula 2.0 04/06/17 01:30 105 23 105/64 (78) 97 Nasal Cannula 2.0 04/06/17 01:15 110 22 118/68 (85) 97 Nasal Cannula 2.0 04/06/17 01:00 110 26 123/60 (81) 98 Nasal Cannula 2.0 04/06/17 00:45 104 24 111/63 (79) 97 Nasal Cannula 2.0 04/06/17 00:30 100 25 116/60 (78) 98 Nasal Cannula 2.0 04/06/17 00:15 100 25 112/66 (81) 97 Nasal Cannula 2.0 04/06/17 00:01 Nasal Cannula 2.0 04/06/17 00:00 37.0 95 26 125/60 (81) 97 Nasal Cannula 2.0 04/05/17 23:45 106 18 116/60 (78) 97 Nasal Cannula 2.0 04/05/17 23:30 97 15 111/60 (77) 98 Nasal Cannula 2.0 04/05/17 23:15 98 28 97/60 (72) 99 Nasal Cannula 2.0 04/05/17 23:00 97 25 98/49 (65) 98 Nasal Cannula 2.0 04/05/17 22:28 97 23 74/37 (49) 98 Nasal Cannula 2.0 04/05/17 22:23 98 22 74/38 (50) 98 04/05/17 22:22 97 24 77/47 (57) 98 04/05/17 22:00 102 20 80/42 (55) 95 Room Air 04/05/17 21:00 106 22 83/41 (55) 95 Room Air 04/05/17 20:00 37.2 120 24 101/58 (72) 94 Room Air 04/05/17 20:00 Room Air 04/05/17 19:00 38.4 120 20 103/58 (73) 92 Room Air 04/05/17 17:00 124 24 110/62 (78) 92 Room Air 04/05/17 16:02 Room Air 04/05/17 16:00 37.6 117 22 120/55 (76) 95 Room Air Laboratory Results Last 24 Hours Test 04/05/17 16:25 04/05/17 20:21 04/05/17 23:50 04/06/17 05:06 Bedside Glucose 129 mg/dl 124 mg/dl 87 mg/dl White Blood Count 6.34 K/uL Red Blood Count 2.54 M/uL Hemoglobin 7.9 g/dL Hematocrit 23.4 % Mean Corpuscular Volume 92.1 fL Mean Corpuscular Hemoglobin 31.1 pg Mean Corpuscular Hemoglobin Concent 33.8 g/dl RDW Standard Deviation 50.6 fL RDW Coefficient of Variation 14.9 % Platelet Count 34 K/uL Mean Platelet Volume 9.6 fL Prothrombin Time 13.1 SECONDS Prothromb Time International Ratio 1.3 Sodium Level 137 mmol/L Potassium Level 4.5 mmol/L Chloride Level 112 mmol/L Carbon Dioxide Level 18 mmol/L Anion Gap 7.0 mmol/L Blood Urea Nitrogen 60 mg/dl Creatinine 4.19 mg/dl Est Creatinine Clear Calc Drug Dose 25.1 ml/min Estimated GFR () 16.5 Estimated GFR (Non- 14.2 BUN/Creatinine Ratio 14.3 Random Glucose 89 mg/dl Calcium Level 8.1 mg/dl Phosphorus Level 3.4 mg/dl Magnesium Level 2.0 mg/dl Total Bilirubin 1.2 mg/dl Direct Bilirubin 0.7 mg/dl Aspartate Amino Transf (AST/SGOT) 55 U/L Alanine Aminotransferase (ALT/SGPT) 29 U/L Alkaline Phosphatase 29 U/L Total Protein 5.6 gm/dl Albumin 2.2 gm/dl Globulin 3.4 gm/dl Albumin/Globulin Ratio 0.6 Lipase 66 U/L Procalcitonin 5.91 ng/ml Random Vancomycin Level 23.4 mcg/ml Test 04/06/17 05:29 Bedside Glucose 103 mg/dl Assessment and Plan cont antibiotics cont s/p drainage
[2017-04-06] MEDS ORDERED: VANCOMYCIN INJ 500 MG in SODIUM CHLORIDE 0.9% 100ML 100 ML IV ONE (17:30)
--- NOTE | 2017-04-06 21:05 | Critical Care Progress Note ---
Critical Care Progress Note Date of Service Apr 06, 2017. Attending Dr. Conroy Subjective Doing better Off pressors C/o dry mouth, painful mucosa Objective General: NAD Heent: NC/AT. 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 Procalcitonin trending down Urine output much improved. Renal indices also improving Platelets chronically low, at baseline Urology and ID consults noted OOB to chair DVT prophylaxis: SCDs Critical care time spent with patient, reviewing the chart, discussing with consultants, more than 30 minutes Consults & Procedures Consultants: Urology: Dr Zavala ID: Dr Cruz Data Medications: Current Inpatient Medications Medications (Trade) Dose Ordered Sig/Min Route Start Time Stop Time Status Last Admin Dose Admin Piperacillin Sod/ Tazobactam Sod 4.5 gm/Dextrose 120 ml @ 30 mls/hr Q12H IV 04/05/17 04:00 04/14/17 20:59 04/06/17 16:34 30 MLS/HR Acetaminophen (Tylenol Tab) 650 mg Q4H PRN PO 04/04/17 19:15 05/04/17 19:14 04/06/17 20:34 650 MG Pantoprazole Sodium 40 mg/ Syringe 10 ml @ 5 mls/min DAILY IV 04/05/17 09:00 05/05/17 08:59 04/06/17 08:25 5 MLS/MIN Morphine Sulfate (MoRPHine SULFATE INJ) 2 mg Q2H PRN IV 04/04/17 19:15 04/18/17 19:14 04/05/17 07:44 2 MG Miscellaneous Information (Consult) 1 ea UD PRN N/A 04/04/17 19:15 05/04/17 19:14 Miscellaneous Information (Consult) 1 tom UD PRN N/A 04/04/17 20:30 05/04/17 20:29 Glucose (Glucose 40% Gel) 15-30 GRAMS 15 GRAMS... UD PRN PO 04/05/17 00:30 05/05/17 00:29 Glucose (Glucose Chew Tab) 4-8 Tablets 4 Tabl... UD PRN PO 04/05/17 00:30 05/05/17 00:29 Dextrose (Dextrose 50% 50ML Syringe) 25-50ML OF 50% DW IV FOR... UD PRN IV 04/05/17 00:30 05/05/17 00:29 Glucagon (Glucagon Inj) 1 mg UD PRN SQ 04/05/17 00:30 05/05/17 00:29 Sodium Chloride 1,000 ml @ 100 mls/hr Q10H IV 04/05/17 01:00 05/05/17 00:59 04/06/17 16:34 100 MLS/HR Albumin Human (Albumin 25%) 12.5 gm 0900,1000,2100,2200 IV 04/05/17 09:00 04/08/17 08:59 04/06/17 20:35 12.5 GM Bacitracin (Bacitracin Oint) 1 appln BID EXT 04/05/17 21:00 05/05/17 20:59 04/06/17 20:34 1 APPLN Miscellaneous Information (Consult Glycemic Management Pharmacy) 1 ea UD PRN N/A 04/05/17 09:45 05/05/17 09:44 Insulin Glargine (Lantus Solostar Pen) See protocol text Q12 SC 04/05/17 21:00 05/05/17 20:59 04/05/17 20:24 15 UNITS Norepinephrine Bitartrate 8 mg/ Dextrose 508 ml @ 0 mls/hr Q0M PRN IV 04/05/17 22:30 05/05/17 22:29 04/05/17 22:56 26 MLS/HR Insulin Aspart (novoLOG ASPART) SLIDING SCALE ACHS SC 04/06/17 11:00 05/06/17 10:59 I & O: 24-Hour Column 04/07/17 07:59 Intake Total 1042 ml Output Total 800 ml Balance 242 ml Vital Signs: Date Time Temp Pulse Resp B/P (MAP) Pulse Ox O2 Delivery O2 Flow Rate FiO2 04/06/17 20:00 98 Room Air 04/06/17 18:00 92 32 101/56 (71) 98 Room Air 04/06/17 16:00 36.8 94 21 104/55 (71) 95 Room Air 04/06/17 16:00 Room Air 04/06/17 14:00 104 27 103/64 (77) 95 Room Air 04/06/17 12:00 37.9 109 27 129/76 (93) 93 Room Air 04/06/17 12:00 96 Room Air 04/06/17 10:00 25 104/65 (78) Room Air 04/06/17 08:00 98 Room Air 04/06/17 08:00 37.1 110 26 114/62 (79) 98 Room Air 04/06/17 07:08 37.1 04/06/17 05:00 103 22 96/59 (71) 97 Nasal Cannula 2.0 04/06/17 04:45 109 21 110/55 (73) 97 Nasal Cannula 2.0 04/06/17 04:30 105 22 106/58 (74) 96 Nasal Cannula 2.0 04/06/17 04:15 110 23 105/58 (74) 98 Nasal Cannula 2.0 04/06/17 04:00 38.0 111 24 109/58 (75) 98 Nasal Cannula 2.0 04/06/17 04:00 Nasal Cannula 2.0 04/06/17 03:45 106 26 100/63 (75) 97 Nasal Cannula 2.0 04/06/17 03:30 109 27 100/61 (74) 98 Nasal Cannula 2.0 04/06/17 03:15 114 24 113/59 (77) 95 Nasal Cannula 2.0 04/06/17 03:00 112 25 117/58 (77) 97 Nasal Cannula 2.0 04/06/17 02:45 113 26 110/66 (81) 97 Nasal Cannula 2.0 04/06/17 02:30 106 24 121/57 (78) 97 Nasal Cannula 2.0 04/06/17 02:15 114 24 117/70 (86) 97 Nasal Cannula 2.0 04/06/17 02:00 114 22 109/53 (71) 96 Nasal Cannula 2.0 04/06/17 01:45 106 21 129/62 (84) 96 Nasal Cannula 2.0 04/06/17 01:30 105 23 105/64 (78) 97 Nasal Cannula 2.0 04/06/17 01:15 110 22 118/68 (85) 97 Nasal Cannula 2.0 04/06/17 01:00 110 26 123/60 (81) 98 Nasal Cannula 2.0 04/06/17 00:45 104 24 111/63 (79) 97 Nasal Cannula 2.0 04/06/17 00:30 100 25 116/60 (78) 98 Nasal Cannula 2.0 04/06/17 00:15 100 25 112/66 (81) 97 Nasal Cannula 2.0 04/06/17 00:01 Nasal Cannula 2.0 04/06/17 00:00 37.0 95 26 125/60 (81) 97 Nasal Cannula 2.0 04/05/17 23:45 106 18 116/60 (78) 97 Nasal Cannula 2.0 04/05/17 23:30 97 15 111/60 (77) 98 Nasal Cannula 2.0 04/05/17 23:15 98 28 97/60 (72) 99 Nasal Cannula 2.0 04/05/17 23:00 97 25 98/49 (65) 98 Nasal Cannula 2.0 04/05/17 22:28 97 23 74/37 (49) 98 Nasal Cannula 2.0 04/05/17 22:23 98 22 74/38 (50) 98 04/05/17 22:22 97 24 77/47 (57) 98 04/05/17 22:00 102 20 80/42 (55) 95 Room Air Laboratory Results: Last 24 Hours Test 04/05/17 23:50 04/06/17 05:06 04/06/17 05:29 04/06/17 13:03 Bedside Glucose 87 mg/dl 103 mg/dl 113 mg/dl White Blood Count 6.34 K/uL Red Blood Count 2.54 M/uL Hemoglobin 7.9 g/dL Hematocrit 23.4 % Mean Corpuscular Volume 92.1 fL Mean Corpuscular Hemoglobin 31.1 pg Mean Corpuscular Hemoglobin Concent 33.8 g/dl RDW Standard Deviation 50.6 fL RDW Coefficient of Variation 14.9 % Platelet Count 34 K/uL Mean Platelet Volume 9.6 fL Prothrombin Time 13.1 SECONDS Prothromb Time International Ratio 1.3 Sodium Level 137 mmol/L Potassium Level 4.5 mmol/L Chloride Level 112 mmol/L Carbon Dioxide Level 18 mmol/L Anion Gap 7.0 mmol/L Blood Urea Nitrogen 60 mg/dl Creatinine 4.19 mg/dl Est Creatinine Clear Calc Drug Dose 25.1 ml/min Estimated GFR () 16.5 Estimated GFR (Non- 14.2 BUN/Creatinine Ratio 14.3 Random Glucose 89 mg/dl Calcium Level 8.1 mg/dl Phosphorus Level 3.4 mg/dl Magnesium Level 2.0 mg/dl Total Bilirubin 1.2 mg/dl Direct Bilirubin 0.7 mg/dl Aspartate Amino Transf (AST/SGOT) 55 U/L Alanine Aminotransferase (ALT/SGPT) 29 U/L Alkaline Phosphatase 29 U/L Total Protein 5.6 gm/dl Albumin 2.2 gm/dl Globulin 3.4 gm/dl Albumin/Globulin Ratio 0.6 Lipase 66 U/L Procalcitonin 5.91 ng/ml Random Vancomycin Level 23.4 mcg/ml Test 04/06/17 16:18 04/06/17 20:31 Bedside Glucose 116 mg/dl 97 mg/dl
[2017-04-06] MEDS ORDERED: MAGIC MOUTHWASH PO PRN (21:15)
[2017-04-06] MEDS ORDERED: ZOLPIDEM TARTRATE 5 MG TAB PO PRN (21:15)
[2017-04-07] VITALS (20 sets, daily range): BP systolic 92–148; BP diastolic 51–71; PULSE 81–110; TEMP 36.9–37.8; O2SAT 93–99
[2017-04-07] MEDS: DEXAMETHASONE CONC SOLN 3.75 MG, NYSTATIN SUSP 30 ML, DiphenhydrAMINE HCL SYRUP 300 MG,... PO PRN ×5 (00:14)
[2017-04-07] MEDS: SODIUM CHLORIDE 0.9% 1000ML 1,000 ML IV SCH (04:00)
[2017-04-07] MEDS: PIPERACILL/TAZOBAC IV 4.5 GM in DEXTROSE 5% 100ML 100 ML IV SCH ×3 (04:00→19:35)
[2017-04-07 05:52] LABS: INR 1.3 (0.9-1.1)
[2017-04-07 06:00] LABS: HEMOGLOBIN 8.8 g/dL (14.0-18.0); MEAN CELL VOLUME 92.2 fL (80-100); MEAN CORPUSCULAR HEMOGLOBIN 31.2 pg (25-34); MEAN CORPUSCULAR HGB CONC 33.8 g/dl (32-36); MEAN PLATELET VOLUME 10.4 fL (7.4-10.4); PLATELET COUNT 34 K/uL (130-400); RED CELL DISTRIBUTION WIDTH CV 14.9 % (11.5-14.5); RED CELL DISTRIBUTION WIDTH SD 50.7 fL (36.4-46.3); WHITE BLOOD COUNT 6.01 K/uL (4.8-10.8)
[2017-04-07 06:14] LABS: ALBUMIN 2.7 gm/dl (3.4-5.0); CALCIUM 8.7 mg/dl (8.5-10.1); CREATININE 3.3 mg/dl (0.60-1.40); POTASSIUM 4.4 mmol/L (3.5-5.1)
[2017-04-07] MEDS: ACETAMINOPHEN 325 MG TAB PO PRN ×3 (06:15→19:36)
[2017-04-07 06:20] LABS: PHOSPHORUS 3.1 mg/dl (2.5-4.9); TOTAL PROTEIN 6.4 gm/dl (6.4-8.2)
[2017-04-07] MEDS: INSULIN ASPART 100 UNITS/ML 3 ML PEN SC SCH ×4 (06:45→20:46)
[2017-04-07] MEDS: BACITRACIN OINT 15 GM TUBE EXT SCH ×2 (08:47→19:35)
[2017-04-07] MEDS: ALBUMIN HUMAN 25% 12.5 GM/50 ML VIAL IV SCH ×2 (08:51→10:07)
[2017-04-07] MEDS: PANTOprazole INJ 40 MG in SYRINGE 0 ML IV SCH (08:52)
--- NOTE | 2017-04-07 11:49 | Progress Note ---
Internal Med Progress Note Date of Service: Apr 07, 2017. Provider Documentation: SUBJECTIVE: The patient was seen and examined Clinically a lot better but still requiring Pressors Denies any symptoms OBJECTIVE: Vital Signs-as noted below Exam: General-no acute distress Obese Eyes-NORMAL ENT-NORMAL Neck-SUPPLE Lungs-decreased breath sound bilaterally Minimal basal crackles Heart-Regular,no murmur appreciated Abdomen-Benign,mildly tender ,no guarding and or rigidity Extremities-Trace edema bilaterally Neuro-AAOx3 Generally weak Lab data as noted below. CT of the Abd&Pel:1. A suprapubic bladder catheter is in place. The bladder wall is thickened and there is significant pericystic inflammatory stranding. Correlate clinically and with urinalysis for evidence of cystitis. 2. There is mild fullness of the renal collecting system bilaterally without hydronephrosis. Bilateral perinephric stranding is nonspecific. Correlate clinically and with urinalysis for evidence of pyelonephritis. 3. The appearance of the liver suggests cirrhosis. 4. The spleen is enlarged. 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 5. Trace pleural effusions. 6. Additional findings as above. ASSESSMENT & PLAN: SEVERE SEPSIS WITH SEPTIC SHOCK ::Gamma Hemolytic Strepto Bacteremia-NOT ENTEROCOCCI in Urine Met criteria and was admitted ti ICU Presented with Fever Temp 38 /HR 120 sinus tach /hypotension BP 61/33 Leukocytosis WBC 16 K , elevated lactic acid level > 4 /Pro Calcitonin > 20 /C- reactive protein > 12 ,Procalcitonin > 20 Source of infection -complicated UTI ( presence of chronic suprapubic catheter , recent urological procedure -Urethral reconstructive surgery on 03/06/17 ) Recent Voiding Cystourethrogram 04/02/17 : noted: vesicoureteral reflux noted R> L . Rt vesicoureteral reflux opacifies the rt collecting system CT abdomen /pelvis :As Above Started on Broad spectrum ABx Zosyn and Vancomycin Blood and urine culture ordered -Gm Positive Streptococci-not enterococci Appreciate ID and Urology input and recommendation Clinically better Continue current antibiotics Still requiring pressors COLLIN /ATN : Baseline cr 1.2 on 03/08/2017 ; GFR > 60 Presents with Cr > 6 Possible due to severe sepsis /hypotension /on ACEI /Lasix ER visit on 03/17/17 for COLLIN Cr was 1.6 Received NSAIDs and Bactrim AN op pt reports of adequate drainage of urine from suprapubic catheter aggressive IV fluid resuscitation 30 ml /KG BW per sepsis protocol avoid NSAID's /Contrast . all diuretics discontinued PRP monitor Q 4hrs per Sepsis protocol Nephrology consulted -appreciate input Renal function continues to improve CHRONIC SUPRAPUBIC CATHETER/RECENT RECONSTRUCTION OF OF URETHRA : NO Hydronephrosis in CT of the Abdomen and Pelvis due to urethral stricture /Bladder out let obstruction had Suprapubic catheter > 3 yrs had recent reconstruction surgery for urethra in [facility] on by Urology Dr Hernandez underwent : Single stage urethroplasty, ventral buccal mucosa graft substitution urethroplasty, harvest of buccal mucosa graft 6 cm x 2 cm , Cystoscopy pt had uneventful post op course Discharge home on 03/08/17 Had recent post surgery visit in [place] with Dr Hernandez on 04/02/17 : voiding cystourethrogram on 04/02/17 : Bladder filled normally with out intrinsic or extrinsic defect vesicoureteral reflux noted R> L . Rt vesicoureteral reflux opacifies the rt collecting system Patent Urethra during spontaneous voiding without evidence of leak. Madrigal Catheter was D/popeye and PLEASE DO NOT TRY TO REINSERT Draining normally Was schedule to remove suprapubic catheter tomorrow 04/05/17 by Urology Continue suprapubic catheter drainage in setting of COLLIN /Hypotension/severe sepsis Urology consult requested, pt was seen by Dr Guzman in past No Madrigal please CHRONIC THROMBOCYTOPENIA : Platelet 62 on presentation Prior lab work Platelet 71 ( 03/06/17 ) -> 86 ( 03/07/17 ) -89 ( 03/08/17 ) Plartelet 34 today 04/06/17 and remains at 34 Follows with Heme onc Dr Bowman [facility] avoid antiplatelets , anticoagulation ordered for daily CBC HX OF PSORIATIC ARTHRITIS : was on Humira 20mg/0.4ml twice monthly on hold for severe sepsis HTN : presents with sepsis , vol depletion , hypotension /COLLIN Hold Lasix( was on 40 mg BID ) and ACEI -Lisinopril 5 mg daily cont IV resuscitation , pressor support ICU monitoring GERD: ordered PPI CODE STATUS : FULL CODE D/w PT DVT PROPHYLAXIS : Moderate to high risk pharmacological anticoagulation avoided - thrombocytopenia scd and teds DISPOSITION ; lives at home with independent in ADL;'s will need PT/OT eval when medically stable Social service contused for discharge planning Pt follows with Dr [facility] follow up with [facility] Vital Signs: Date Time Temp Pulse Resp B/P (MAP) Pulse Ox O2 Delivery O2 Flow Rate FiO2 04/07/17 10:05 36.9 94 22 102/51 (68) 95 Room Air 04/07/17 08:00 36.9 91 20 92/60 (71) 98 Nasal Cannula 2.0 04/07/17 08:00 98 Nasal Cannula 2.0 04/07/17 06:01 37.8 105 26 120/71 (87) 96 04/07/17 04:00 98 Nasal Cannula 2.0 04/07/17 04:00 37.2 99 34 125/69 (87) 97 04/07/17 02:00 102 29 95/60 (72) 95 Nasal Cannula 2.0 04/07/17 01:00 105 24 112/58 (76) 93 2.0 04/07/17 00:00 37.0 99 22 125/62 (83) 93 Nasal Cannula 2.0 04/06/17 23:59 98 Room Air 04/06/17 23:00 100 19 110/62 (78) 94 Room Air 04/06/17 22:00 101 27 104/61 (75) 94 Room Air 04/06/17 21:00 37.9 119 28 130/72 (91) 93 Room Air 04/06/17 20:00 36.9 102 25 117/74 (88) 89 Room Air 04/06/17 20:00 98 Room Air 04/06/17 19:00 97 29 112/67 (82) 97 Room Air 04/06/17 18:00 92 32 101/56 (71) 98 Room Air 04/06/17 16:00 36.8 94 21 104/55 (71) 95 Room Air 04/06/17 16:00 Room Air 04/06/17 14:00 104 27 103/64 (77) 95 Room Air 04/06/17 12:00 37.9 109 27 129/76 (93) 93 Room Air 04/06/17 12:00 96 Room Air Lab Results: Results Past 24 Hours Test 04/06/17 13:03 04/06/17 16:18 04/06/17 20:31 04/07/17 05:30 Range/Units Bedside Glucose 113 116 97 70-99 mg/dl White Blood Count 6.01 4.8-10.8 K/uL Red Blood Count 2.82 4.7-6.1 M/uL Hemoglobin 8.8 14.0-18.0 g/dL Hematocrit 26.0 42-52 % Mean Corpuscular Volume 92.2 80-100 fL Mean Corpuscular Hemoglobin 31.2 25-34 pg Mean Corpuscular Hemoglobin Concent 33.8 32-36 g/dl RDW Standard Deviation 50.7 36.4-46.3 fL RDW Coefficient of Variation 14.9 11.5-14.5 % Platelet Count 34 130-400 K/uL Mean Platelet Volume 10.4 7.4-10.4 fL Prothrombin Time 13.1 9.0-12.0 SECONDS Prothromb Time International Ratio 1.3 0.9-1.1 Sodium Level 140 136-145 mmol/L Potassium Level 4.4 3.5-5.1 mmol/L Chloride Level 114 98-107 mmol/L Carbon Dioxide Level 18 21-32 mmol/L Anion Gap 8.0 3-11 mmol/L Blood Urea Nitrogen 52 7-18 mg/dl Creatinine 3.30 0.60-1.40 mg/dl Est Creatinine Clear Calc Drug Dose 31.9 ml/min Estimated GFR () 22.0 Estimated GFR (Non- 19.0 BUN/Creatinine Ratio 15.8 10-20 Random Glucose 94 70-99 mg/dl Calcium Level 8.7 8.5-10.1 mg/dl Phosphorus Level 3.1 2.5-4.9 mg/dl Magnesium Level 2.3 1.8-2.4 mg/dl Total Bilirubin 1.7 0.2-1 mg/dl Direct Bilirubin 0.9 0-0.2 mg/dl Aspartate Amino Transf (AST/SGOT) 51 15-37 U/L Alanine Aminotransferase (ALT/SGPT) 30 12-78 U/L Alkaline Phosphatase 44 45-117 U/L Troponin I 0.113 0-0.045 ng/ml Total Protein 6.4 6.4-8.2 gm/dl Albumin 2.7 3.4-5.0 gm/dl Globulin 3.7 2.5-4.0 gm/dl Albumin/Globulin Ratio 0.7 0.9-2 Lipase 351 73-393 U/L Microbiology Results 04/06/17 C.difficile Toxin B Gene (PCR) - Final, Complete No C. difficile toxin B gene detected 04/06/17 WBC Smear - Final, Resulted 04/06/17 Shiga Toxin Test, Resulted Pending 04/06/17 Stool Culture, Resulted Pending
--- NOTE | 2017-04-07 12:40 | Nephrology Progress Note ---
Nephrology Progress Note Date of Service: Apr 07, 2017. Subjective c/o mouth pain (thrust); minimal dyspnea; no n/v, no other pain Objective Date Time Temp Pulse Resp B/P (MAP) Pulse Ox O2 Delivery O2 Flow Rate FiO2 04/07/17 12:03 97 Nasal Cannula 2.0 04/07/17 12:00 81 22 103/60 (74) 96 Nasal Cannula 2.0 04/07/17 10:05 36.9 94 22 102/51 (68) 95 Room Air 04/07/17 08:00 36.9 91 20 92/60 (71) 98 Nasal Cannula 2.0 04/07/17 08:00 98 Nasal Cannula 2.0 04/07/17 06:01 37.8 105 26 120/71 (87) 96 04/07/17 04:00 98 Nasal Cannula 2.0 04/07/17 04:00 37.2 99 34 125/69 (87) 97 04/07/17 02:00 102 29 95/60 (72) 95 Nasal Cannula 2.0 04/07/17 01:00 105 24 112/58 (76) 93 2.0 04/07/17 00:00 37.0 99 22 125/62 (83) 93 Nasal Cannula 2.0 04/06/17 23:59 98 Room Air 04/06/17 23:00 100 19 110/62 (78) 94 Room Air 04/06/17 22:00 101 27 104/61 (75) 94 Room Air 04/06/17 21:00 37.9 119 28 130/72 (91) 93 Room Air 04/06/17 20:00 36.9 102 25 117/74 (88) 89 Room Air 04/06/17 20:00 98 Room Air 04/06/17 19:00 97 29 112/67 (82) 97 Room Air 04/06/17 18:00 92 32 101/56 (71) 98 Room Air 04/06/17 16:00 36.8 94 21 104/55 (71) 95 Room Air 04/06/17 16:00 Room Air 04/06/17 14:00 104 27 103/64 (77) 95 Room Air Physical Exam: GENERAL: Awake, alert, oriented x3. on 02nc, dyspneic w/ speech EYES: No scleral icterus. ENT: dry mucous membranes. NECK: Supple. PULMONARY: Clear to auscultation. CARDIAC: Tachycardic in 90s, regular ABDOMEN: Positive suprapubic catheter. Bowel sounds positive. Soft, nontender. negron w/ ample urine EXTREMITIES: No clubbing, cyanosis; 2+ dependent edema. NEUROLOGIC: Nonfocal. DERMATOLOGIC: No rash or ulcers noted Current Inpatient Medications Medications (Trade) Dose Ordered Sig/Min Route Start Time Stop Time Status Last Admin Dose Admin Acetaminophen (Tylenol Tab) 650 mg Q4H PRN PO 04/04/17 19:15 05/04/17 19:14 04/07/17 06:15 650 MG Pantoprazole Sodium 40 mg/ Syringe 10 ml @ 5 mls/min DAILY IV 04/05/17 09:00 05/05/17 08:59 04/07/17 08:52 5 MLS/MIN Morphine Sulfate (MoRPHine SULFATE INJ) 2 mg Q2H PRN IV 04/04/17 19:15 04/18/17 19:14 04/05/17 07:44 2 MG Miscellaneous Information (Consult) 1 ea UD PRN N/A 04/04/17 19:15 05/04/17 19:14 Miscellaneous Information (Consult) 1 ea UD PRN N/A 04/04/17 20:30 05/04/17 20:29 Glucose (Glucose 40% Gel) 15-30 GRAMS 15 GRAMS... UD PRN PO 04/05/17 00:30 05/05/17 00:29 Glucose (Glucose Chew Tab) 4-8 Tablets 4 Tabl... UD PRN PO 04/05/17 00:30 05/05/17 00:29 Dextrose (Dextrose 50% 50ML Syringe) 25-50ML OF 50% DW IV FOR... UD PRN IV 04/05/17 00:30 05/05/17 00:29 Glucagon (Glucagon Inj) 1 mg UD PRN SQ 04/05/17 00:30 05/05/17 00:29 Bacitracin (Bacitracin Oint) 1 appln BID EXT 04/05/17 21:00 05/05/17 20:59 04/07/17 08:47 1 APPLN Miscellaneous Information (Consult Glycemic Management Pharmacy) 1 ea UD PRN N/A 04/05/17 09:45 05/05/17 09:44 Norepinephrine Bitartrate 8 mg/ Dextrose 508 ml @ 0 mls/hr Q0M PRN IV 04/05/17 22:30 05/05/17 22:29 04/05/17 22:56 26 MLS/HR Insulin Aspart (novoLOG ASPART) SLIDING SCALE ACHS SC 04/06/17 11:00 05/06/17 10:59 Zolpidem Tartrate (Ambien Tab) 5 mg HS PRN PO 04/06/17 21:15 05/06/17 21:14 04/07/17 00:01 5 MG Dexamethasone/ Nystatin/ Diphenhydramine HCl/Sucrose/ Microcrystalline Cellulose/Barcode Q12H PRN PO 04/06/17 21:15 05/06/17 21:14 04/07/17 00:14 5 ML Piperacillin Sod/ Tazobactam Sod 4.5 gm/Dextrose 120 ml @ 30 mls/hr Q8H IV 04/07/17 12:00 04/13/17 23:59 Sodium Bicarbonate 150 meq/Dextrose 1,150 ml @ 100 mls/hr [id number] IV 04/07/17 12:30 05/07/17 12:29 Last 24 Hours Test 04/06/17 13:03 04/06/17 16:18 04/06/17 20:31 04/07/17 05:30 Bedside Glucose 113 mg/dl 116 mg/dl 97 mg/dl White Blood Count 6.01 K/uL Red Blood Count 2.82 M/uL Hemoglobin 8.8 g/dL Hematocrit 26.0 % Mean Corpuscular Volume 92.2 fL Mean Corpuscular Hemoglobin 31.2 pg Mean Corpuscular Hemoglobin Concent 33.8 g/dl RDW Standard Deviation 50.7 fL RDW Coefficient of Variation 14.9 % Platelet Count 34 K/uL Mean Platelet Volume 10.4 fL Prothrombin Time 13.1 SECONDS Prothromb Time International Ratio 1.3 Sodium Level 140 mmol/L Potassium Level 4.4 mmol/L Chloride Level 114 mmol/L Carbon Dioxide Level 18 mmol/L Anion Gap 8.0 mmol/L Blood Urea Nitrogen 52 mg/dl Creatinine 3.30 mg/dl Est Creatinine Clear Calc Drug Dose 31.9 ml/min Estimated GFR () 22.0 Estimated GFR (Non- 19.0 BUN/Creatinine Ratio 15.8 Random Glucose 94 mg/dl Calcium Level 8.7 mg/dl Phosphorus Level 3.1 mg/dl Magnesium Level 2.3 mg/dl Total Bilirubin 1.7 mg/dl Direct Bilirubin 0.9 mg/dl Aspartate Amino Transf (AST/SGOT) 51 U/L Alanine Aminotransferase (ALT/SGPT) 30 U/L Alkaline Phosphatase 44 U/L Troponin I 0.113 ng/ml Total Protein 6.4 gm/dl Albumin 2.7 gm/dl Globulin 3.7 gm/dl Albumin/Globulin Ratio 0.7 Lipase 351 U/L Test 04/07/17 11:56 Date/Time Source Procedure Growth Status 04/06/17 12:40 Stool C.difficile Toxin B Gene (PCR) - Final No C. difficile toxin B gene detected Complete 04/06/17 12:40 Stool WBC Smear - Final Resulted 04/06/17 12:40 Stool Shiga Toxin Test Pending Resulted 04/06/17 12:40 Stool Stool Culture Pending Resulted Assessment & Plan 61 y/o M w/ recent urethroplasty and complex catheter dependence admitted w/ pyelonephritis and bacteremia; had been on nsaids and bactrim before admission; baseline creatinine 1.2 Prerenal nonoliguric COLLIN apart from hyperchloremic metabolic acidosis addressed below, chemistries acceptable; some thrombocytopenia stable -clinically improving -daily bmp; strict I/O SOB, hypotension w/ transient pressor dependence overnight and hyperchloremic metabolic acidosis -stopped albumin -changed NS to bicarb gtt Bacteremia -ordered repeat cxs to document clearance
--- NOTE | 2017-04-07 12:48 | Progress Note ---
Subjective Date of Service: Apr 07, 2017. Subjective Pt evaluation today including: conversation w/ patient, physical exam, conversation w/ [employer] security consultant overall better still on pressor overnight urine clear no pain Problem List Medical Problems: (1) Acute renal failure Status: Acute (2) Complication of catheter Status: Acute (3) Cystitis Status: Acute (4) Elevated troponin Status: Acute (5) Hypomagnesemia Status: Acute (6) Hypotension Status: Acute (7) Pyelonephritis Status: Acute (8) Renal failure Status: Acute (9) Renal insufficiency Status: Acute (10) Sepsis due to urinary tract infection Status: Acute (11) Septic shock Status: Acute Objective Vital Signs Date Time Temp Pulse Resp B/P (MAP) Pulse Ox O2 Delivery O2 Flow Rate FiO2 04/07/17 12:03 97 Nasal Cannula 2.0 04/07/17 12:00 81 22 103/60 (74) 96 Nasal Cannula 2.0 04/07/17 10:05 36.9 94 22 102/51 (68) 95 Room Air 04/07/17 08:00 36.9 91 20 92/60 (71) 98 Nasal Cannula 2.0 04/07/17 08:00 98 Nasal Cannula 2.0 04/07/17 06:01 37.8 105 26 120/71 (87) 96 04/07/17 04:00 98 Nasal Cannula 2.0 04/07/17 04:00 37.2 99 34 125/69 (87) 97 04/07/17 02:00 102 29 95/60 (72) 95 Nasal Cannula 2.0 04/07/17 01:00 105 24 112/58 (76) 93 2.0 04/07/17 00:00 37.0 99 22 125/62 (83) 93 Nasal Cannula 2.0 04/06/17 23:59 98 Room Air 04/06/17 23:00 100 19 110/62 (78) 94 Room Air 04/06/17 22:00 101 27 104/61 (75) 94 Room Air 04/06/17 21:00 37.9 119 28 130/72 (91) 93 Room Air 04/06/17 20:00 36.9 102 25 117/74 (88) 89 Room Air 04/06/17 20:00 98 Room Air 04/06/17 19:00 97 29 112/67 (82) 97 Room Air 04/06/17 18:00 92 32 101/56 (71) 98 Room Air 04/06/17 16:00 36.8 94 21 104/55 (71) 95 Room Air 04/06/17 16:00 Room Air 04/06/17 14:00 104 27 103/64 (77) 95 Room Air Laboratory Results Last 24 Hours Test 04/06/17 13:03 04/06/17 16:18 04/06/17 20:31 04/07/17 05:30 Bedside Glucose 113 mg/dl 116 mg/dl 97 mg/dl White Blood Count 6.01 K/uL Red Blood Count 2.82 M/uL Hemoglobin 8.8 g/dL Hematocrit 26.0 % Mean Corpuscular Volume 92.2 fL Mean Corpuscular Hemoglobin 31.2 pg Mean Corpuscular Hemoglobin Concent 33.8 g/dl RDW Standard Deviation 50.7 fL RDW Coefficient of Variation 14.9 % Platelet Count 34 K/uL Mean Platelet Volume 10.4 fL Prothrombin Time 13.1 SECONDS Prothromb Time International Ratio 1.3 Sodium Level 140 mmol/L Potassium Level 4.4 mmol/L Chloride Level 114 mmol/L Carbon Dioxide Level 18 mmol/L Anion Gap 8.0 mmol/L Blood Urea Nitrogen 52 mg/dl Creatinine 3.30 mg/dl Est Creatinine Clear Calc Drug Dose 31.9 ml/min Estimated GFR () 22.0 Estimated GFR (Non- 19.0 BUN/Creatinine Ratio 15.8 Random Glucose 94 mg/dl Calcium Level 8.7 mg/dl Phosphorus Level 3.1 mg/dl Magnesium Level 2.3 mg/dl Total Bilirubin 1.7 mg/dl Direct Bilirubin 0.9 mg/dl Aspartate Amino Transf (AST/SGOT) 51 U/L Alanine Aminotransferase (ALT/SGPT) 30 U/L Alkaline Phosphatase 44 U/L Troponin I 0.113 ng/ml Total Protein 6.4 gm/dl Albumin 2.7 gm/dl Globulin 3.7 gm/dl Albumin/Globulin Ratio 0.7 Lipase 351 U/L Test 04/07/17 11:56 Assessment and Plan cont antibiotics cont s/p drainage
[2017-04-07] MEDS: SODIUM BICARBONATE 8.4% INJ 150 MEQ in DEXTROSE 5% 1000ML 1,000 ML IV SCH ×2 (12:55→23:23)
--- NOTE | 2017-04-07 13:50 | Pharmacy Progress Note ---
Pharmacy Glycemic Short Note 2 Date of Service Apr 07, 2017. OUTPATIENT ANTIDIABETIC REGIMEN: * N/A ASSESSMENT: * Mr Quiñonez is a 61 y/o M with a PMH of suprapubic catheter who presents with sepsis from a urinary source. He was initially started on norepinephrine but this was discontinued 04/06/17. He received a total of 1 units of insulin yesterday with BSGs ranging from 89-113 mg/dL. Fasting this morning is 94 mg/dL. * For Lantus, a scale was established with 10 units of Lantus if blood sugar greater than 140 mg/dL... uncertain if stress from infection will increase blood sugars. Also now ordered dextrose with 3 amps of bicarbonate @100 mLs/hr. Will continue scale in case this increases blood sugars. For Novolog, per nurse the patient has a poor appetite. Continue current regimen as untested. This is weight-based stress of 1 which is reasonable in this patient. PLAN FOR INPATIENT GLYCEMIC CONTROL: * Basal insulin * Lantus 0-10 units SQ BID * Bolus insulin * NovoLog per scale ACHS or Q6hrs while NPO * Goal Range: Low 110 mg/dL - High 140 mg/dL * Correction Factor: 30 mg/dL/unit * Nutritional / Prandial insulin per carb ratio of 1 unit per 10 grams CHO consumed PLAN FOR DISCHARGE: * Patient's HbA1C indicates he is a pre-diabetic. Recommend dietary counseling and lifestyle modifications.
--- NOTE | 2017-04-07 14:32 | Pharmacy Progress Note ---
Pharmacy Abx Dose Short Note Date of Service Apr 07, 2017. Assessment & Plan Item Value Date Time Gram Stain - Final Resulted 04/05/17 0540 Incision Site Scrotum Urine Culture - Final Complete 04/04/17 1822 Urine,Catheterized Gamma Strep Not Enterococcus Blood Culture - Preliminary Resulted 04/04/17 1638 Blood Gamma Hemolytic Strep. Species Blood Culture - Preliminary Resulted 04/04/17 1615 Blood Gamma Hemolytic Strep. Species Blood Culture Received 04/07/17 1324 Blood Pending Blood Culture Received 04/07/17 1322 Blood Pending Random Vancomycin Level 11.7 mcg/ml 04/07/17 1156 Assessment 61 year old male receiving VANC/ZOSYN for treatment of SEPSIS--URINARY SOURCE Day # 4 of antimicrobial therapy. Plan Vancomycin * Random Vanc 23.4mcg/mL with AM labs 04/06. Gave supplemental Vanc 500mg 04/06 @ 1730 * Random Vanc @ 1200 today (04/07) = 11.7mcg/mL. Scr continues to improve. * Ordered Vanc 1500mg (~10mg/kg) IV x 1 this afternoon. Will order Random Vanc for AM labs 04/08 to continue to guide doses as indicated. ZOSYN: Increased to 4.5g IV CI every 8 hours for morbid obesity and illness severity. Pharmacy will continue to follow and will adjust dose/frequency as necessary. Thank you.
[2017-04-07] MEDS ORDERED: VANCOMYCIN INJ 1,500 MG in SODIUM CHLORIDE 0.9% 500ML 500 ML IV ONE (16:00)
--- NOTE | 2017-04-07 19:04 | Critical Care Progress Note ---
Critical Care Progress Note Date of Service Apr 07, 2017. Attending Dr. Conroy Subjective Brief pressor requirement overnight Objective General: NAD Heent: NC/AT. 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 Keep Zosyn on the profile, he has other pathogens growing in the scrotal wound and urine Procalcitonin trending down Urine output much improved. Renal indices also improving daily Platelets chronically low, at baseline Urology and ID consults noted OOB to chair DVT prophylaxis: SCDs Critical care time spent with patient, reviewing the chart, discussing with consultants, more than 25 minutes Keep in the ICU tonight, if no further pressor requirement, may transfer to floor tomorrow Consults & Procedures Consultants: Urology: Dr Zavala ID: Dr Cruz Data Medications: Current Inpatient Medications Medications (Trade) Dose Ordered Sig/Min Route Start Time Stop Time Status Last Admin Dose Admin Acetaminophen (Tylenol Tab) 650 mg Q4H PRN PO 04/04/17 19:15 05/04/17 19:14 04/07/17 14:24 650 MG Pantoprazole Sodium 40 mg/ Syringe 10 ml @ 5 mls/min DAILY IV 04/05/17 09:00 05/05/17 08:59 04/07/17 08:52 5 MLS/MIN Morphine Sulfate (MoRPHine SULFATE INJ) 2 mg Q2H PRN IV 04/04/17 19:15 04/18/17 19:14 04/05/17 07:44 2 MG Miscellaneous Information (Consult) 1 ea UD PRN N/A 04/04/17 19:15 05/04/17 19:14 Miscellaneous Information (Consult) 1 ea UD PRN N/A 04/04/17 20:30 05/04/17 20:29 Glucose (Glucose 40% Gel) 15-30 GRAMS 15 GRAMS... UD PRN PO 04/05/17 00:30 05/05/17 00:29 Glucose (Glucose Chew Tab) 4-8 Tablets 4 Tabl... UD PRN PO 04/05/17 00:30 05/05/17 00:29 Dextrose (Dextrose 50% 50ML Syringe) 25-50ML OF 50% DW IV FOR... UD PRN IV 04/05/17 00:30 05/05/17 00:29 Glucagon (Glucagon Inj) 1 mg UD PRN SQ 04/05/17 00:30 05/05/17 00:29 Bacitracin (Bacitracin Oint) 1 appln BID EXT 04/05/17 21:00 05/05/17 20:59 04/07/17 08:47 1 APPLN Miscellaneous Information (Consult Glycemic Management Pharmacy) 1 ea UD PRN N/A 04/05/17 09:45 05/05/17 09:44 Norepinephrine Bitartrate 8 mg/ Dextrose 508 ml @ 0 mls/hr Q0M PRN IV 04/05/17 22:30 05/05/17 22:29 04/05/17 22:56 26 MLS/HR Insulin Aspart (novoLOG ASPART) SLIDING SCALE ACHS SC 04/06/17 11:00 05/06/17 10:59 Zolpidem Tartrate (Ambien Tab) 5 mg HS PRN PO 04/06/17 21:15 05/06/17 21:14 04/07/17 00:01 5 MG Dexamethasone/ Nystatin/ Diphenhydramine HCl/Sucrose/ Microcrystalline Cellulose/Barcode Q12H PRN PO 04/06/17 21:15 05/06/17 21:14 04/07/17 00:14 5 ML Piperacillin Sod/ Tazobactam Sod 4.5 gm/Dextrose 120 ml @ 30 mls/hr Q8H IV 04/07/17 12:00 04/13/17 23:59 04/07/17 13:50 30 MLS/HR Sodium Bicarbonate 150 meq/Dextrose 1,150 ml @ 100 mls/hr [id number] IV 04/07/17 12:30 05/07/17 12:29 04/07/17 12:55 100 MLS/HR Insulin Glargine (Lantus Solostar Pen) SEE PROTOCOL TXT BID SC 04/07/17 21:00 05/07/17 20:59 I & O: 24-Hour Column 04/08/17 08:00 Intake Total 1339 ml Output Total 950 ml Balance 389 ml Vital Signs: Date Time Temp Pulse Resp B/P (MAP) Pulse Ox O2 Delivery O2 Flow Rate FiO2 04/07/17 16:05 98 Nasal Cannula 2.0 04/07/17 16:00 110 30 118/64 (82) 96 2.0 04/07/17 14:22 37.2 04/07/17 14:00 108 30 147/67 (93) 96 04/07/17 12:03 97 Nasal Cannula 2.0 04/07/17 12:00 81 22 103/60 (74) 96 Nasal Cannula 2.0 04/07/17 10:05 36.9 94 22 102/51 (68) 95 Room Air 04/07/17 08:00 36.9 91 20 92/60 (71) 98 Nasal Cannula 2.0 04/07/17 08:00 98 Nasal Cannula 2.0 04/07/17 06:01 37.8 105 26 120/71 (87) 96 04/07/17 04:00 98 Nasal Cannula 2.0 04/07/17 04:00 37.2 99 34 125/69 (87) 97 04/07/17 02:00 102 29 95/60 (72) 95 Nasal Cannula 2.0 04/07/17 01:00 105 24 112/58 (76) 93 2.0 04/07/17 00:00 37.0 99 22 125/62 (83) 93 Nasal Cannula 2.0 04/06/17 23:59 98 Room Air 04/06/17 23:00 100 19 110/62 (78) 94 Room Air 04/06/17 22:00 101 27 104/61 (75) 94 Room Air 04/06/17 21:00 37.9 119 28 130/72 (91) 93 Room Air 04/06/17 20:00 36.9 102 25 117/74 (88) 89 Room Air 04/06/17 20:00 98 Room Air 04/06/17 19:00 97 29 112/67 (82) 97 Room Air Laboratory Results: Last 24 Hours Test 04/06/17 20:31 04/07/17 05:30 04/07/17 11:51 04/07/17 11:56 Bedside Glucose 97 mg/dl 99 mg/dl White Blood Count 6.01 K/uL Red Blood Count 2.82 M/uL Hemoglobin 8.8 g/dL Hematocrit 26.0 % Mean Corpuscular Volume 92.2 fL Mean Corpuscular Hemoglobin 31.2 pg Mean Corpuscular Hemoglobin Concent 33.8 g/dl RDW Standard Deviation 50.7 fL RDW Coefficient of Variation 14.9 % Platelet Count 34 K/uL Mean Platelet Volume 10.4 fL Prothrombin Time 13.1 SECONDS Prothromb Time International Ratio 1.3 Sodium Level 140 mmol/L Potassium Level 4.4 mmol/L Chloride Level 114 mmol/L Carbon Dioxide Level 18 mmol/L Anion Gap 8.0 mmol/L Blood Urea Nitrogen 52 mg/dl Creatinine 3.30 mg/dl Est Creatinine Clear Calc Drug Dose 31.9 ml/min Estimated GFR () 22.0 Estimated GFR (Non- 19.0 BUN/Creatinine Ratio 15.8 Random Glucose 94 mg/dl Calcium Level 8.7 mg/dl Phosphorus Level 3.1 mg/dl Magnesium Level 2.3 mg/dl Total Bilirubin 1.7 mg/dl Direct Bilirubin 0.9 mg/dl Aspartate Amino Transf (AST/SGOT) 51 U/L Alanine Aminotransferase (ALT/SGPT) 30 U/L Alkaline Phosphatase 44 U/L Troponin I 0.113 ng/ml Total Protein 6.4 gm/dl Albumin 2.7 gm/dl Globulin 3.7 gm/dl Albumin/Globulin Ratio 0.7 Lipase 351 U/L Random Vancomycin Level 11.7 mcg/ml Test 04/07/17 16:38 Bedside Glucose 127 mg/dl
[2017-04-07] MEDS: INSULIN GLARGINE SOLOSTAR 100 UNITS/ML 3 ML PEN SC SCH (20:47)
[2017-04-08] VITALS (12 sets, daily range): BP systolic 111–140; BP diastolic 48–93; PULSE 87–107; TEMP 37–37.8; O2SAT 94–100; Ht 172.7 cm; Wt 143.3 kg
[2017-04-08] MEDS: PIPERACILL/TAZOBAC IV 4.5 GM in DEXTROSE 5% 100ML 100 ML IV SCH ×3 (03:52→12:31)
[2017-04-08] MEDS: ACETAMINOPHEN 325 MG TAB PO PRN ×3 (03:54→22:22)
[2017-04-08 05:42] LABS: HEMATOCRIT 24.1 % (42-52); HEMOGLOBIN 8.2 g/dL (14.0-18.0); MEAN CELL VOLUME 91.6 fL (80-100); MEAN CORPUSCULAR HEMOGLOBIN 31.2 pg (25-34); RED CELL DISTRIBUTION WIDTH CV 14.9 % (11.5-14.5); RED CELL DISTRIBUTION WIDTH SD 50.1 fL (36.4-46.3); WHITE BLOOD COUNT 5.03 K/uL (4.8-10.8)
[2017-04-08 05:51] LABS: MEAN PLATELET VOLUME 9.8 fL (7.4-10.4); PLATELET COUNT 32 K/uL (130-400)
[2017-04-08 05:52] LABS: INR 1.3 (0.9-1.1)
[2017-04-08 06:16] LABS: ALBUMIN 2.4 gm/dl (3.4-5.0); CALCIUM 8.6 mg/dl (8.5-10.1); CREATININE 2.73 mg/dl (0.60-1.40)
[2017-04-08 06:20] LABS: PHOSPHORUS 2.7 mg/dl (2.5-4.9); TOTAL PROTEIN 5.8 gm/dl (6.4-8.2)
[2017-04-08] MEDS: INSULIN ASPART 100 UNITS/ML 3 ML PEN SC SCH ×4 (06:45→21:00)
[2017-04-08] MEDS: INSULIN GLARGINE SOLOSTAR 100 UNITS/ML 3 ML PEN SC SCH ×2 (09:00→21:00)
[2017-04-08] MEDS: PANTOprazole INJ 40 MG in SYRINGE 0 ML IV SCH (09:22)
[2017-04-08] MEDS: BACITRACIN OINT 15 GM TUBE EXT SCH ×2 (09:22→21:04)
[2017-04-08] MEDS ORDERED: VANCOMYCIN INJ 1,500 MG in SODIUM CHLORIDE 0.9% 500ML 500 ML IV ONE (10:00)
--- NOTE | 2017-04-08 10:31 | Progress Note ---
Subjective Date of Service: Apr 08, 2017. Subjective Pt evaluation today including: conversation w/ patient, physical exam, chart review, lab review pt improved today, ate breakfast, not hungry. no n/v//abd pain, c diff negative. tolerating abx. remains on broad spectrum abx peening final cultures. Initial blood cultures with e. faecalis, repeat pending, sensitive pcn. wound with gamma strep, no enterococcus, final pending. afebrile. tolerating abx. for potential transfer out of ICU today. no f/c. overall feeling much better. denies abd pain. creat improving, wbc 5 today, vanco level 20. Echo negative for veg .all remaining ros reviewed and are negative. Problem List Medical Problems: (1) Acute renal failure Status: Acute (2) Complication of catheter Status: Acute (3) Cystitis Status: Acute (4) Elevated troponin Status: Acute (5) Hypomagnesemia Status: Acute (6) Hypotension Status: Acute (7) Pyelonephritis Status: Acute (8) Renal failure Status: Acute (9) Renal insufficiency Status: Acute (10) Sepsis due to urinary tract infection Status: Acute (11) Septic shock Status: Acute Objective Vital Signs Date Time Temp Pulse Resp B/P (MAP) Pulse Ox O2 Delivery O2 Flow Rate FiO2 04/08/17 05:01 105 27 112/71 (85) 94 04/08/17 04:00 99 Nasal Cannula 2.0 04/08/17 03:01 37.6 106 27 140/73 (95) 100 Nasal Cannula 2.0 04/08/17 02:01 99 24 133/70 (91) 98 Nasal Cannula 2.0 04/08/17 00:01 96 24 114/69 (84) 97 Nasal Cannula 2.0 04/07/17 23:59 99 Nasal Cannula 2.0 04/07/17 22:01 93 29 110/68 (82) 98 04/07/17 21:00 105 27 148/67 (94) 04/07/17 20:01 37.6 103 22 117/68 (84) 97 Nasal Cannula 2.0 04/07/17 20:00 99 Nasal Cannula 2.0 04/07/17 19:00 93 27 119/71 (87) 99 04/07/17 18:00 95 28 114/59 (77) 96 04/07/17 16:05 98 Nasal Cannula 2.0 04/07/17 16:00 110 30 118/64 (82) 96 2.0 04/07/17 14:22 37.2 04/07/17 14:00 108 30 147/67 (93) 96 04/07/17 12:03 97 Nasal Cannula 2.0 04/07/17 12:00 81 22 103/60 (74) 96 Nasal Cannula 2.0 Physical Exam General Appearance: WD/WN, no apparent distress Eyes: normal inspection, EOMI Neck: supple Respiratory/Chest: lungs clear, normal breath sounds, no respiratory distress Cardiovascular: regular rate, rhythm, no edema Abdomen: non tender, soft Extremities: non-tender Neurologic/Psychiatric: alert, oriented x 3 Skin: normal color Laboratory Results Item Value Date Time Blood Culture - Final Complete 04/04/17 1615 Blood Enterococcus Faecalis Blood Culture - Preliminary Resulted 04/04/17 1638 Blood Enterococcus Faecalis Urine Culture - Final Complete 04/04/17 1822 Urine,Catheterized Gamma Strep Not Enterococcus Gram Stain - Final Complete 04/05/17 0540 Incision Site Scrotum C.difficile Toxin B Gene (PCR) - Final Complete 04/06/17 1240 Stool No C. difficile toxin B gene detected Last 24 Hours Test 04/07/17 11:51 04/07/17 11:56 04/07/17 16:38 04/07/17 20:39 Bedside Glucose 99 mg/dl 127 mg/dl 143 mg/dl Random Vancomycin Level 11.7 mcg/ml Test 04/08/17 05:29 White Blood Count 5.03 K/uL Red Blood Count 2.63 M/uL Hemoglobin 8.2 g/dL Hematocrit 24.1 % Mean Corpuscular Volume 91.6 fL Mean Corpuscular Hemoglobin 31.2 pg Mean Corpuscular Hemoglobin Concent 34.0 g/dl Platelet Count 32 K/uL Mean Platelet Volume 9.8 fL RDW Standard Deviation 50.1 fL RDW Coefficient of Variation 14.9 % Neutrophils % (Manual) 92.1 % Lymphocytes % (Manual) 6.1 % Monocytes % (Manual) 0.9 % Eosinophils % (Manual) 0.9 % Neutrophils # (Manual) 4.63 K/uL Total Absolute Neutrophils 4.63 K/uL Lymphocytes # (Manual) 0.31 K/uL Total Absolute Lymphocytes 0.31 K/uL Monocytes # (Manual) 0.05 K/uL Eosinophils # (Manual) 0.05 K/uL Toxic Granulation 1+ Prothrombin Time 13.7 SECONDS Prothromb Time International Ratio 1.3 Sodium Level 142 mmol/L Potassium Level 4.0 mmol/L Chloride Level 113 mmol/L Carbon Dioxide Level 22 mmol/L Anion Gap 7.0 mmol/L Blood Urea Nitrogen 44 mg/dl Creatinine 2.73 mg/dl Est Creatinine Clear Calc Drug Dose 38.6 ml/min Estimated GFR () 27.6 Estimated GFR (Non- 23.8 BUN/Creatinine Ratio 16.2 Random Glucose 138 mg/dl Lactic Acid Level 1.4 mmol/L Calcium Level 8.6 mg/dl Phosphorus Level 2.7 mg/dl Magnesium Level 2.0 mg/dl Total Bilirubin 1.5 mg/dl Direct Bilirubin 0.9 mg/dl Aspartate Amino Transf (AST/SGOT) 43 U/L Alanine Aminotransferase (ALT/SGPT) 27 U/L Alkaline Phosphatase 61 U/L Total Protein 5.8 gm/dl Albumin 2.4 gm/dl Globulin 3.4 gm/dl Albumin/Globulin Ratio 0.7 Lipase 275 U/L Procalcitonin 2.29 ng/ml Random Vancomycin Level 20.8 mcg/ml Assessment and Plan (1) Septicemia due to enterococcus Assessment & Plan: continue abx for now, await final cultures. will need min 14 days from first negative culture, 04/07 pending. (2) Pyelonephritis
--- NOTE | 2017-04-08 10:53 | Progress Note ---
Internal Med Progress Note Date of Service: Apr 08, 2017. Provider Documentation: SUBJECTIVE: The patient was seen and examined Clinically a lot better but still requiring Pressors Denies any symptoms Can be transferred to Tele when Off pressor agent Clinically a lot better OBJECTIVE: Vital Signs-as noted below Exam: General-no acute distress at rest Obese Eyes-NORMAL ENT-NORMAL Neck-SUPPLE Lungs-decreased breath sound bilaterally Minimal basal crackles Heart-Regular,no murmur appreciated Abdomen-Benign,mildly tender ,no guarding and or rigidity Extremities-Trace edema bilaterally Neuro-AAOx3 Generally weak Lab data as noted below. CT of the Abd&Pel:1. A suprapubic bladder catheter is in place. The bladder wall is thickened and there is significant pericystic inflammatory stranding. Correlate clinically and with urinalysis for evidence of cystitis. 2. There is mild fullness of the renal collecting system bilaterally without hydronephrosis. Bilateral perinephric stranding is nonspecific. Correlate clinically and with urinalysis for evidence of pyelonephritis. 3. The appearance of the liver suggests cirrhosis. 4. The spleen is enlarged. 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 5. Trace pleural effusions. 6. Additional findings as above. ASSESSMENT & PLAN: SEVERE SEPSIS WITH SEPTIC SHOCK ::Gamma Hemolytic Strepto Bacteremia-Enterococci Met criteria and was admitted ti ICU Presented with Fever Temp 38 /HR 120 sinus tach /hypotension BP 61/33 Leukocytosis WBC 16 K , elevated lactic acid level > 4 /Pro Calcitonin > 20 /C- reactive protein > 12 ,Procalcitonin > 20 Source of infection -complicated UTI ( presence of chronic suprapubic catheter , recent urological procedure -Urethral reconstructive surgery on 03/06/17 ) Recent Voiding Cystourethrogram 04/02/17 : noted: vesicoureteral reflux noted R> L . Rt vesicoureteral reflux opacifies the rt collecting system CT abdomen /pelvis :As Above Started on Broad spectrum ABx Zosyn and Vancomycin Blood and urine culture ordered -Gm Positive Streptococci-Enterococci Appreciate ID and Urology input and recommendation Clinically better Continue current antibiotics Still requiring pressors-can be transferred to Tele when Off pressor Continue current antibiotics COLLIN /ATN : Baseline cr 1.2 on 03/08/2017 ; GFR > 60 Presents with Cr > 6 Possible due to severe sepsis /hypotension /on ACEI /Lasix ER visit on 03/17/17 for COLLIN Cr was 1.6 Received NSAIDs and Bactrim AN op pt reports of adequate drainage of urine from suprapubic catheter aggressive IV fluid resuscitation 30 ml /KG BW per sepsis protocol avoid NSAID's /Contrast . all diuretics discontinued PRP monitor Q 4hrs per Sepsis protocol Nephrology consulted -appreciate input Renal function continues to improve -Creatinine 2.73 today 04/08/17 CHRONIC SUPRAPUBIC CATHETER/RECENT RECONSTRUCTION OF OF URETHRA : NO Hydronephrosis in CT of the Abdomen and Pelvis due to urethral stricture /Bladder out let obstruction had Suprapubic catheter > 3 yrs had recent reconstruction surgery for urethra in [facility] on by Urology Dr Hernandez underwent : Single stage urethroplasty, ventral buccal mucosa graft substitution urethroplasty, harvest of buccal mucosa graft 6 cm x 2 cm , Cystoscopy pt had uneventful post op course Discharge home on 03/08/17 Had recent post surgery visit in [place] with Dr Hernandez on 04/02/17 : voiding cystourethrogram on 04/02/17 : Bladder filled normally with out intrinsic or extrinsic defect vesicoureteral reflux noted R> L . Rt vesicoureteral reflux opacifies the rt collecting system Patent Urethra during spontaneous voiding without evidence of leak. Madrigal Catheter was D/popeye and PLEASE DO NOT TRY TO REINSERT Draining normally Was schedule to remove suprapubic catheter tomorrow 04/05/17 by Urology Continue suprapubic catheter drainage in setting of COLLIN /Hypotension/severe sepsis Urology consult requested, pt was seen by Dr Guzman in past No Madrigal please CHRONIC THROMBOCYTOPENIA : Platelet 62 on presentation Prior lab work Platelet 71 ( 03/06/17 ) -> 86 ( 03/07/17 ) -89 ( 03/08/17 ) Plartelet 34 today 04/06/17 and remains at 34 No Pharmacologic anticoagulation Follows with Heme onc Dr Bowman [facility] [place] avoid antiplatelets , anticoagulation ordered for daily CBC HX OF PSORIATIC ARTHRITIS : was on Humira 20mg/0.4ml twice monthly on hold for severe sepsis HTN : presents with sepsis , vol depletion , hypotension /COLLIN Hold Lasix( was on 40 mg BID ) and ACEI -Lisinopril 5 mg daily cont IV resuscitation , pressor support ICU monitoring GERD: ordered PPI CODE STATUS : FULL CODE D/w PT DVT PROPHYLAXIS : Moderate to high risk pharmacological anticoagulation avoided - thrombocytopenia scd and teds DISPOSITION ; lives at home with independent in ADL;'s will need PT/OT eval when medically stable Social service contused for discharge planning Pt follows with Dr [facility] follow up with [facility] Vital Signs: Date Time Temp Pulse Resp B/P (MAP) Pulse Ox O2 Delivery O2 Flow Rate FiO2 04/08/17 05:01 105 27 112/71 (85) 94 04/08/17 04:00 99 Nasal Cannula 2.0 04/08/17 03:01 37.6 106 27 140/73 (95) 100 Nasal Cannula 2.0 04/08/17 02:01 99 24 133/70 (91) 98 Nasal Cannula 2.0 04/08/17 00:01 96 24 114/69 (84) 97 Nasal Cannula 2.0 04/07/17 23:59 99 Nasal Cannula 2.0 04/07/17 22:01 93 29 110/68 (82) 98 04/07/17 21:00 105 27 148/67 (94) 04/07/17 20:01 37.6 103 22 117/68 (84) 97 Nasal Cannula 2.0 04/07/17 20:00 99 Nasal Cannula 2.0 04/07/17 19:00 93 27 119/71 (87) 99 04/07/17 18:00 95 28 114/59 (77) 96 04/07/17 16:05 98 Nasal Cannula 2.0 04/07/17 16:00 110 30 118/64 (82) 96 2.0 04/07/17 14:22 37.2 04/07/17 14:00 108 30 147/67 (93) 96 04/07/17 12:03 97 Nasal Cannula 2.0 04/07/17 12:00 81 22 103/60 (74) 96 Nasal Cannula 2.0 Lab Results: Results Past 24 Hours Test 04/07/17 11:51 04/07/17 11:56 04/07/17 16:38 04/07/17 20:39 Range/Units Bedside Glucose 99 127 143 70-99 mg/dl Random Vancomycin Level 11.7 mcg/ml Test 04/08/17 05:29 Range/Units White Blood Count 5.03 4.8-10.8 K/uL Red Blood Count 2.63 4.7-6.1 M/uL Hemoglobin 8.2 14.0-18.0 g/dL Hematocrit 24.1 42-52 % Mean Corpuscular Volume 91.6 80-100 fL Mean Corpuscular Hemoglobin 31.2 25-34 pg Mean Corpuscular Hemoglobin Concent 34.0 32-36 g/dl Platelet Count 32 130-400 K/uL Mean Platelet Volume 9.8 7.4-10.4 fL RDW Standard Deviation 50.1 36.4-46.3 fL RDW Coefficient of Variation 14.9 11.5-14.5 % Neutrophils % (Manual) 92.1 % Lymphocytes % (Manual) 6.1 % Monocytes % (Manual) 0.9 % Eosinophils % (Manual) 0.9 % Neutrophils # (Manual) 4.63 1.4-6.5 K/uL Total Absolute Neutrophils 4.63 1.4-6.5 K/uL Lymphocytes # (Manual) 0.31 1.2-3.4 K/uL Total Absolute Lymphocytes 0.31 1.2-3.4 K/uL Monocytes # (Manual) 0.05 0.11-0.59 K/uL Eosinophils # (Manual) 0.05 0-0.5 K/uL Toxic Granulation 1+ Prothrombin Time 13.7 9.0-12.0 SECONDS Prothromb Time International Ratio 1.3 0.9-1.1 Sodium Level 142 136-145 mmol/L Potassium Level 4.0 3.5-5.1 mmol/L Chloride Level 113 98-107 mmol/L Carbon Dioxide Level 22 21-32 mmol/L Anion Gap 7.0 3-11 mmol/L Blood Urea Nitrogen 44 7-18 mg/dl Creatinine 2.73 0.60-1.40 mg/dl Est Creatinine Clear Calc Drug Dose 38.6 ml/min Estimated GFR () 27.6 Estimated GFR (Non- 23.8 BUN/Creatinine Ratio 16.2 10-20 Random Glucose 138 70-99 mg/dl Lactic Acid Level 1.4 0.4-2.0 mmol/L Calcium Level 8.6 8.5-10.1 mg/dl Phosphorus Level 2.7 2.5-4.9 mg/dl Magnesium Level 2.0 1.8-2.4 mg/dl Total Bilirubin 1.5 0.2-1 mg/dl Direct Bilirubin 0.9 0-0.2 mg/dl Aspartate Amino Transf (AST/SGOT) 43 15-37 U/L Alanine Aminotransferase (ALT/SGPT) 27 12-78 U/L Alkaline Phosphatase 61 45-117 U/L Total Protein 5.8 6.4-8.2 gm/dl Albumin 2.4 3.4-5.0 gm/dl Globulin 3.4 2.5-4.0 gm/dl Albumin/Globulin Ratio 0.7 0.9-2 Lipase 275 73-393 U/L Procalcitonin 2.29 0-0.5 ng/ml Random Vancomycin Level 20.8 mcg/ml Microbiology Results 04/07/17 Blood Culture, Received Pending 04/07/17 Blood Culture, Received Pending
--- NOTE | 2017-04-08 11:06 | Progress Note ---
Subjective Date of Service: Apr 08, 2017. Subjective Pt evaluation today including: conversation w/ patient, chart review, lab review Voiding: negron catheter in place (SPT patent, draining clear, yellow urine) SPT draining well. Pt denies pain this morning. C/o diarrhea. C-diff culture on 04-06 was negative. Blood cultures growing enterococcus. Pt remains tachycardic, but BP stable. Cr improved to 2.73 this morning. Problem List Medical Problems: (1) Acute renal failure Status: Acute (2) Complication of catheter Status: Acute (3) Cystitis Status: Acute (4) Elevated troponin Status: Acute (5) Hypomagnesemia Status: Acute (6) Hypotension Status: Acute (7) Pyelonephritis Status: Acute (8) Renal failure Status: Acute (9) Renal insufficiency Status: Acute (10) Sepsis due to urinary tract infection Status: Acute (11) Septic shock Status: Acute Review of Systems Constitutional: No fever, No chills Respiratory: No shortness of breath Cardiac: No chest pain Abdomen: + diarrhea, No pain, No nausea, No vomiting Male : No dysuria, No hematuria Heme: No abnormal bleeding/bruising Objective Vital Signs Date Time Temp Pulse Resp B/P (MAP) Pulse Ox O2 Delivery O2 Flow Rate FiO2 04/08/17 05:01 105 27 112/71 (85) 94 04/08/17 04:00 99 Nasal Cannula 2.0 04/08/17 03:01 37.6 106 27 140/73 (95) 100 Nasal Cannula 2.0 04/08/17 02:01 99 24 133/70 (91) 98 Nasal Cannula 2.0 04/08/17 00:01 96 24 114/69 (84) 97 Nasal Cannula 2.0 04/07/17 23:59 99 Nasal Cannula 2.0 04/07/17 22:01 93 29 110/68 (82) 98 04/07/17 21:00 105 27 148/67 (94) 04/07/17 20:01 37.6 103 22 117/68 (84) 97 Nasal Cannula 2.0 04/07/17 20:00 99 Nasal Cannula 2.0 04/07/17 19:00 93 27 119/71 (87) 99 04/07/17 18:00 95 28 114/59 (77) 96 04/07/17 16:05 98 Nasal Cannula 2.0 04/07/17 16:00 110 30 118/64 (82) 96 2.0 04/07/17 14:22 37.2 04/07/17 14:00 108 30 147/67 (93) 96 04/07/17 12:03 97 Nasal Cannula 2.0 04/07/17 12:00 81 22 103/60 (74) 96 Nasal Cannula 2.0 Physical Exam General Appearance: no apparent distress Eyes: normal inspection ENT: hearing grossly normal Neck: no JVD Respiratory/Chest: no respiratory distress, no accessory muscle use Cardiovascular: no JVD Extremities: normal inspection Neurologic/Psychiatric: alert, normal mood/affect, oriented x 3 Skin: normal color Laboratory Results Last 24 Hours Test 04/07/17 11:51 04/07/17 11:56 04/07/17 16:38 04/07/17 20:39 Bedside Glucose 99 mg/dl 127 mg/dl 143 mg/dl Random Vancomycin Level 11.7 mcg/ml Test 04/08/17 05:29 White Blood Count 5.03 K/uL Red Blood Count 2.63 M/uL Hemoglobin 8.2 g/dL Hematocrit 24.1 % Mean Corpuscular Volume 91.6 fL Mean Corpuscular Hemoglobin 31.2 pg Mean Corpuscular Hemoglobin Concent 34.0 g/dl Platelet Count 32 K/uL Mean Platelet Volume 9.8 fL RDW Standard Deviation 50.1 fL RDW Coefficient of Variation 14.9 % Neutrophils % (Manual) 92.1 % Lymphocytes % (Manual) 6.1 % Monocytes % (Manual) 0.9 % Eosinophils % (Manual) 0.9 % Neutrophils # (Manual) 4.63 K/uL Total Absolute Neutrophils 4.63 K/uL Lymphocytes # (Manual) 0.31 K/uL Total Absolute Lymphocytes 0.31 K/uL Monocytes # (Manual) 0.05 K/uL Eosinophils # (Manual) 0.05 K/uL Toxic Granulation 1+ Prothrombin Time 13.7 SECONDS Prothromb Time International Ratio 1.3 Sodium Level 142 mmol/L Potassium Level 4.0 mmol/L Chloride Level 113 mmol/L Carbon Dioxide Level 22 mmol/L Anion Gap 7.0 mmol/L Blood Urea Nitrogen 44 mg/dl Creatinine 2.73 mg/dl Est Creatinine Clear Calc Drug Dose 38.6 ml/min Estimated GFR () 27.6 Estimated GFR (Non- 23.8 BUN/Creatinine Ratio 16.2 Random Glucose 138 mg/dl Lactic Acid Level 1.4 mmol/L Calcium Level 8.6 mg/dl Phosphorus Level 2.7 mg/dl Magnesium Level 2.0 mg/dl Total Bilirubin 1.5 mg/dl Direct Bilirubin 0.9 mg/dl Aspartate Amino Transf (AST/SGOT) 43 U/L Alanine Aminotransferase (ALT/SGPT) 27 U/L Alkaline Phosphatase 61 U/L Total Protein 5.8 gm/dl Albumin 2.4 gm/dl Globulin 3.4 gm/dl Albumin/Globulin Ratio 0.7 Lipase 275 U/L Procalcitonin 2.29 ng/ml Random Vancomycin Level 20.8 mcg/ml Assessment and Plan A/P: Pyelonephritis s/p buccal urethroplasty, ARF Continue abx per Dr. Cruz. Will plan to leave SPT in place for now until infection has been adequately treated. Can be removed as an outpatient at [facility] by Dr. Hernandez at his discretion. Continue to avoid negron catheter. ARF improving. Continue to monitor. No further management at this time. Recall PRN issues. The pt will f/u with Dr. Hernandez at [facility] for SPT management. Will f/u with Dr. Guzman in 3-4 months as scheduled.
[2017-04-08] MEDS: SODIUM BICARBONATE 8.4% INJ 150 MEQ in DEXTROSE 5% 1000ML 1,000 ML IV SCH ×2 (11:20→22:22)
[2017-04-08] MEDS: DEXAMETHASONE CONC SOLN 3.75 MG, NYSTATIN SUSP 30 ML, DiphenhydrAMINE HCL SYRUP 300 MG,... PO PRN ×5 (12:07)
[2017-04-08] MEDS ORDERED: AMPICILLIN PHARMACY CONSULT IN PROGRESS PRN (13:45)
[2017-04-08] MEDS: AMPICILLIN IV 2,000 MG in SODIUM CHLOR 0.9% AD-VAN 100ML 100 ML IV SCH ×2 (14:18→19:19)
--- NOTE | 2017-04-08 21:07 | Critical Care Progress Note ---
Critical Care Progress Note Date of Service Apr 08, 2017. Attending Dr. Curiel Subjective No pressor requirement overnight Objective General: NAD Heent: NC/AT. No oral thrush, red tongue Lungs: clear to auscultation CVS: S1S2 regular, no murmurs Abd: Suprapubic catheter Ext: No edema CALL SPECIALIST: AAO x 3, no deficit Assessment & Plan 61 year old male presents in septic shock secondary to urinary tract infection likely stemming from a bladder infection Problems: Septic shock Enterococcus faecalis bacteremia COLLIN with oliguric ATN H/o suprapubic catheter S/p urethroplasty Thrombocytopenia Plan: Vasopressors discontinued Continue IV fluids No evidence of hydronephrosis Blood cultures growing enterococcus faecalis (VSE), repeat pending at this time De-escalate antibiotics to ampicillin Procalcitonin trending down Urine output much improved. Renal indices also improving daily Platelets chronically low, patient follows with hematology as outpatient Urology and ID consults noted OOB to chair DVT prophylaxis: SCDs Stable for downgrade out of the ICU today Consults & Procedures Consultants: Urology: Dr Zavala ID: Dr Cruz Data Medications: Current Inpatient Medications Medications (Trade) Dose Ordered Sig/Min Route Start Time Stop Time Status Last Admin Dose Admin Acetaminophen (Tylenol Tab) 650 mg Q4H PRN PO 04/04/17 19:15 05/04/17 19:14 04/08/17 14:19 650 MG Morphine Sulfate (MoRPHine SULFATE INJ) 2 mg Q2H PRN IV 04/04/17 19:15 04/18/17 19:14 04/05/17 07:44 2 MG Glucose (Glucose 40% Gel) 15-30 GRAMS 15 GRAMS... UD PRN PO 04/05/17 00:30 05/05/17 00:29 Glucose (Glucose Chew Tab) 4-8 Tablets 4 Tabl... UD PRN PO 04/05/17 00:30 05/05/17 00:29 Dextrose (Dextrose 50% 50ML Syringe) 25-50ML OF 50% DW IV FOR... UD PRN IV 04/05/17 00:30 05/05/17 00:29 Glucagon (Glucagon Inj) 1 mg UD PRN SQ 04/05/17 00:30 05/05/17 00:29 Bacitracin (Bacitracin Oint) 1 appln BID EXT 04/05/17 21:00 05/05/17 20:59 04/08/17 09:22 1 APPLN Miscellaneous Information (Consult Glycemic Management Pharmacy) 1 ea UD PRN N/A 04/05/17 09:45 05/05/17 09:44 Insulin Aspart (novoLOG ASPART) SLIDING SCALE ACHS SC 04/06/17 11:00 05/06/17 10:59 04/08/17 16:52 3 UNITS Zolpidem Tartrate (Ambien Tab) 5 mg HS PRN PO 04/06/17 21:15 05/06/17 21:14 04/07/17 00:01 5 MG Dexamethasone/ Nystatin/ Diphenhydramine HCl/Sucrose/ Microcrystalline Cellulose/Barcode Q12H PRN PO 04/06/17 21:15 05/06/17 21:14 04/08/17 12:07 5 ML Sodium Bicarbonate 150 meq/Dextrose 1,150 ml @ 100 mls/hr [id number] IV 04/07/17 12:30 05/07/17 12:29 04/08/17 11:20 100 MLS/HR Insulin Glargine (Lantus Solostar Pen) SEE PROTOCOL TXT BID SC 04/07/17 21:00 05/07/17 20:59 04/07/17 20:47 10 UNITS Ampicillin Sodium 2000 mg/Sodium Chloride 108 ml @ 216 mls/hr Q6 IV 04/08/17 13:30 04/22/17 13:29 04/08/17 19:19 216 MLS/HR Miscellaneous Information 1 ea UD PRN N/A 04/08/17 13:45 05/08/17 13:44 Pantoprazole Sodium (Protonix Tab) 40 mg QAM PO 04/09/17 09:00 05/09/17 08:59 I & O: 24-Hour Column 04/09/17 08:00 Intake Total 1878 ml Output Total 775 ml Balance 1103 ml Vital Signs: Date Time Temp Pulse Resp B/P (MAP) Pulse Ox O2 Delivery O2 Flow Rate FiO2 04/08/17 16:00 37.4 103 24 114/58 (76) 94 Nasal Cannula 2.0 04/08/17 16:00 Room Air 04/08/17 14:00 37.8 99 14 139/48 (78) 94 Room Air 04/08/17 12:00 95 Room Air 04/08/17 12:00 37.6 107 24 111/93 (99) 95 Room Air 04/08/17 10:00 87 23 117/66 (83) 99 Nasal Cannula 2.0 04/08/17 08:00 99 Nasal Cannula 2.0 04/08/17 08:00 37.0 93 24 127/65 (85) 97 Nasal Cannula 2.0 04/08/17 05:01 105 27 112/71 (85) 94 04/08/17 04:00 99 Nasal Cannula 2.0 04/08/17 03:01 37.6 106 27 140/73 (95) 100 Nasal Cannula 2.0 04/08/17 02:01 99 24 133/70 (91) 98 Nasal Cannula 2.0 04/08/17 00:01 96 24 114/69 (84) 97 Nasal Cannula 2.0 04/07/17 23:59 99 Nasal Cannula 2.0 04/07/17 22:01 93 29 110/68 (82) 98 Laboratory Results: Last 24 Hours Test 04/08/17 05:29 04/08/17 11:25 04/08/17 15:40 White Blood Count 5.03 K/uL Red Blood Count 2.63 M/uL Hemoglobin 8.2 g/dL Hematocrit 24.1 % Mean Corpuscular Volume 91.6 fL Mean Corpuscular Hemoglobin 31.2 pg Mean Corpuscular Hemoglobin Concent 34.0 g/dl Platelet Count 32 K/uL Mean Platelet Volume 9.8 fL RDW Standard Deviation 50.1 fL RDW Coefficient of Variation 14.9 % Neutrophils % (Manual) 92.1 % Lymphocytes % (Manual) 6.1 % Monocytes % (Manual) 0.9 % Eosinophils % (Manual) 0.9 % Neutrophils # (Manual) 4.63 K/uL Total Absolute Neutrophils 4.63 K/uL Lymphocytes # (Manual) 0.31 K/uL Total Absolute Lymphocytes 0.31 K/uL Monocytes # (Manual) 0.05 K/uL Eosinophils # (Manual) 0.05 K/uL Toxic Granulation 1+ Prothrombin Time 13.7 SECONDS Prothromb Time International Ratio 1.3 Sodium Level 142 mmol/L Potassium Level 4.0 mmol/L Chloride Level 113 mmol/L Carbon Dioxide Level 22 mmol/L Anion Gap 7.0 mmol/L Blood Urea Nitrogen 44 mg/dl Creatinine 2.73 mg/dl Est Creatinine Clear Calc Drug Dose 38.6 ml/min Estimated GFR () 27.6 Estimated GFR (Non- 23.8 BUN/Creatinine Ratio 16.2 Random Glucose 138 mg/dl Lactic Acid Level 1.4 mmol/L Calcium Level 8.6 mg/dl Phosphorus Level 2.7 mg/dl Magnesium Level 2.0 mg/dl Total Bilirubin 1.5 mg/dl Direct Bilirubin 0.9 mg/dl Aspartate Amino Transf (AST/SGOT) 43 U/L Alanine Aminotransferase (ALT/SGPT) 27 U/L Alkaline Phosphatase 61 U/L Total Protein 5.8 gm/dl Albumin 2.4 gm/dl Globulin 3.4 gm/dl Albumin/Globulin Ratio 0.7 Lipase 275 U/L Procalcitonin 2.29 ng/ml Random Vancomycin Level 20.8 mcg/ml Bedside Glucose 152 mg/dl 138 mg/dl
[2017-04-09] VITALS (9 sets, daily range): BP systolic 120–155; BP diastolic 59–74; PULSE 90–100; TEMP 36.9–38.3; O2SAT 93–99
[2017-04-09] MEDS: AMPICILLIN IV 2,000 MG in SODIUM CHLOR 0.9% AD-VAN 100ML 100 ML IV SCH ×4 (00:52→18:42)
[2017-04-09 05:55] LABS: INR 1.3 (0.9-1.1)
[2017-04-09 06:18] LABS: ALBUMIN 2.1 gm/dl (3.4-5.0); PHOSPHORUS 2.6 mg/dl (2.5-4.9); TOTAL PROTEIN 5.7 gm/dl (6.4-8.2)
[2017-04-09] MEDS: INSULIN ASPART 100 UNITS/ML 3 ML PEN SC SCH ×4 (06:45→21:00)
[2017-04-09] MEDS: INSULIN GLARGINE SOLOSTAR 100 UNITS/ML 3 ML PEN SC SCH ×2 (08:11→21:00)
[2017-04-09] MEDS: BACITRACIN OINT 15 GM TUBE EXT SCH ×2 (08:13→21:00)
[2017-04-09 09:00] LABS: CREATININE 2.4 mg/dl (0.60-1.40)
[2017-04-09] MEDS: SODIUM BICARBONATE 8.4% INJ 150 MEQ in DEXTROSE 5% 1000ML 1,000 ML IV SCH (09:50)
[2017-04-09] MEDS: PANTOprazole SOD 40 MG TAB PO SCH (09:50)
[2017-04-09] MEDS: ACETAMINOPHEN 325 MG TAB PO PRN ×2 (09:53→18:48)
--- NOTE | 2017-04-09 10:05 | Progress Note ---
Subjective Date of Service: Apr 09, 2017. Subjective Pt evaluation today including: conversation w/ patient, physical exam, chart review, lab review Patient is seen in follow-up evaluation. He is resting comfortably. He denies any chest pain cough for shortness of breath. He states he is having some heartburn is asking for medication for this. His antibiotics were de-escalated to ampicillin yesterday. He is tolerating well. His blood cultures from the 07 of April high remain negative. His echocardiogram was negative for vegetation. His wound culture was positive for gamma strep not Enterococcus. This is finalized. His white blood cell count is 5. His T-max was 37.8. He is currently afebrile. He denies any chest pain cough shortness of breath or abdominal pain. He does have a follow-up plans after discharge from the hospital to have his suprapubic catheter addressed. All remaining review of systems are reviewed and unremarkable. Problem List Medical Problems: (1) Acute renal failure Status: Acute (2) Complication of catheter Status: Acute (3) Cystitis Status: Acute (4) Elevated troponin Status: Acute (5) Hypomagnesemia Status: Acute (6) Hypotension Status: Acute (7) Pyelonephritis Status: Acute (8) Renal failure Status: Acute (9) Renal insufficiency Status: Acute (10) Sepsis due to urinary tract infection Status: Acute (11) Septic shock Status: Acute Objective Vital Signs Date Time Temp Pulse Resp B/P (MAP) Pulse Ox O2 Delivery O2 Flow Rate FiO2 04/09/17 04:00 Nasal Cannula 2.0 04/09/17 03:44 36.9 90 26 120/73 (89) 97 Nasal Cannula 2.0 04/08/17 23:59 Nasal Cannula 2.0 04/08/17 23:50 37.8 99 27 114/50 (71) 97 Nasal Cannula 2.0 04/08/17 21:00 37.0 96 24 124/75 (91) 97 Room Air 04/08/17 20:00 Room Air 04/08/17 16:00 37.4 103 24 114/58 (76) 94 Nasal Cannula 2.0 04/08/17 16:00 Room Air 04/08/17 14:00 37.8 99 14 139/48 (78) 94 Room Air 04/08/17 12:00 95 Room Air 04/08/17 12:00 37.6 107 24 111/93 (99) 95 Room Air Physical Exam General Appearance: WD/WN, no apparent distress Eyes: normal inspection, EOMI Neck: supple Respiratory/Chest: lungs clear, normal breath sounds, no respiratory distress Cardiovascular: regular rate, rhythm, no edema Abdomen: non tender, soft Extremities: non-tender, no pedal edema Neurologic/Psychiatric: alert, oriented x 3 Skin: normal color, no rash Laboratory Results Item Value Date Time Blood Culture - Preliminary Resulted 04/07/17 1324 Blood NO GROWTH TO DATE. Blood Culture - Preliminary Resulted 04/07/17 1322 Blood NO GROWTH TO DATE. C.difficile Toxin B Gene (PCR) - Final Complete 04/06/17 1240 Stool No C. difficile toxin B gene detected Gram Stain - Final Complete 04/05/17 0540 Incision Site Scrotum Blood Culture - Preliminary Resulted 04/04/17 1638 Blood Enterococcus Faecalis Blood Culture - Final Complete 04/04/17 1615 Blood Enterococcus Faecalis Last 24 Hours Test 04/08/17 11:25 04/08/17 15:40 04/08/17 21:01 04/09/17 05:17 Bedside Glucose 152 mg/dl 138 mg/dl 124 mg/dl Prothrombin Time 13.6 SECONDS Prothromb Time International Ratio 1.3 Creatinine 2.40 mg/dl Est Creatinine Clear Calc Drug Dose 44.2 ml/min Estimated GFR () 32.3 Estimated GFR (Non- 27.9 Phosphorus Level 2.6 mg/dl Total Bilirubin 1.2 mg/dl Direct Bilirubin 0.7 mg/dl Aspartate Amino Transf (AST/SGOT) 43 U/L Alanine Aminotransferase (ALT/SGPT) 28 U/L Alkaline Phosphatase 83 U/L Total Protein 5.7 gm/dl Albumin 2.1 gm/dl Lipase 178 U/L Test 04/09/17 06:28 Bedside Glucose 140 mg/dl Assessment and Plan (1) Septicemia due to enterococcus Assessment & Plan: I he has been narrowed to ampicillin. I am in agreement with this. He will need 14 days from his 1st negative culture. His blood cultures from the th are negative and he would be cleared for PICC line placement. He will likely be discharged home on IV ampicillin and will have urologic follow-up post discharge from the hospital. (2) Pyelonephritis
--- NOTE | 2017-04-09 12:10 | Pharmacy Progress Note ---
Pharmacy Glycemic Sign Off Nt Date of Service Apr 09, 2017. Assessment & Plan ASSESSMENT: * Patient not on any outpatient diabetes medications. HbA1c indicates pre- diabetes * Receiving low-dose Lantus BID prn BSG > 140 mg/dL and Novolog ACHS * No changes made to insulin regimen x >= 48 hours * BSG's ranging 124-152 mg/dL over the last 24 hours * Dr. Ag aware pharmacy is signing off today PLAN FOR INPATIENT GLYCEMIC CONTROL: No changes needed to current regimen. * Continue basal insulin with Lantus 0-10 units SQ BID * Continue NovoLog per scale ACHS/Q6hrs while NPO * Goal range = 110-140 mg/dl * CF = 30 mg/dl/unit * CR = 1 unit for ever 10 g CHO consumed * A1c added to discharge instructions to be communicated to PCP. * Pharmacy is signing off of glycemic consult and will no longer be making adjustments to inpatient regimen. Please feel free to re-consult if needed. Thank you. PLAN FOR DISCHARGE: * Patient's HbA1C indicates he is a pre-diabetic. Recommend dietary counseling and lifestyle modifications.
--- NOTE | 2017-04-09 15:29 | Progress Note ---
Internal Med Progress Note Date of Service: Apr 09, 2017. Provider Documentation: SUBJECTIVE: The patient was seen and examined Clinically a lot better but still requiring Pressors Denies any symptoms Clinically a lot better Denies any symptoms OBJECTIVE: Vital Signs-as noted below Exam: General-no acute distress at rest Obese Eyes-NORMAL ENT-NORMAL Neck-SUPPLE Lungs-decreased breath sound bilaterally Minimal basal crackles Heart-Regular,no murmur appreciated Abdomen-Benign,mildly tender ,no guarding and or rigidity Extremities-Trace edema bilaterally Neuro-AAOx3 Generally weak Lab data as noted below. CT of the Abd&Pel:1. A suprapubic bladder catheter is in place. The bladder wall is thickened and there is significant pericystic inflammatory stranding. Correlate clinically and with urinalysis for evidence of cystitis. 2. There is mild fullness of the renal collecting system bilaterally without hydronephrosis. Bilateral perinephric stranding is nonspecific. Correlate clinically and with urinalysis for evidence of pyelonephritis. 3. The appearance of the liver suggests cirrhosis. 4. The spleen is enlarged. 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 5. Trace pleural effusions. 6. Additional findings as above. ASSESSMENT & PLAN: SEVERE SEPSIS WITH SEPTIC SHOCK ::Gamma Hemolytic Strepto Bacteremia-Enterococci :::sensitive to Ampicillin Met criteria and was admitted ti ICU Presented with Fever Temp 38 /HR 120 sinus tach /hypotension BP 61/33 Leukocytosis WBC 16 K , elevated lactic acid level > 4 /Pro Calcitonin > 20 /C- reactive protein > 12 ,Procalcitonin > 20 Source of infection -complicated UTI ( presence of chronic suprapubic catheter , recent urological procedure -Urethral reconstructive surgery on 03/06/17 ) Recent Voiding Cystourethrogram 04/02/17 : noted: vesicoureteral reflux noted R> L . Rt vesicoureteral reflux opacifies the rt collecting system CT abdomen /pelvis :As Above Started on Broad spectrum ABx Zosyn and Vancomycin Blood and urine culture ordered -Gm Positive Streptococci-Enterococci Appreciate ID and Urology input and recommendation Clinically a lot better Antibiotic changed to Ampicillin -to continue for a total of 14 days from Negative culture COLLIN /ATN : Baseline cr 1.2 on 03/08/2017 ; GFR > 60 Presents with Cr > 6 Possible due to severe sepsis /hypotension /on ACEI /Lasix ER visit on 03/17/17 for COLLIN Cr was 1.6 Received NSAIDs and Bactrim AN op pt reports of adequate drainage of urine from suprapubic catheter aggressive IV fluid resuscitation 30 ml /KG BW per sepsis protocol avoid NSAID's /Contrast . all diuretics discontinued PRP monitor Q 4hrs per Sepsis protocol Nephrology consulted -appreciate input Renal function continues to improve -Creatinine 2.73 today 04/08/17 Kidney function is improving CHRONIC SUPRAPUBIC CATHETER/RECENT RECONSTRUCTION OF OF URETHRA : NO Hydronephrosis in CT of the Abdomen and Pelvis due to urethral stricture /Bladder out let obstruction had Suprapubic catheter > 3 yrs had recent reconstruction surgery for urethra in [facility] on by Urology Dr Hernandez underwent : Single stage urethroplasty, ventral buccal mucosa graft substitution urethroplasty, harvest of buccal mucosa graft 6 cm x 2 cm , Cystoscopy pt had uneventful post op course Discharge home on 03/08/17 Had recent post surgery visit in [place] with Dr Hernandez on 04/02/17 : voiding cystourethrogram on 04/02/17 : Bladder filled normally with out intrinsic or extrinsic defect vesicoureteral reflux noted R> L . Rt vesicoureteral reflux opacifies the rt collecting system Patent Urethra during spontaneous voiding without evidence of leak. Madrigal Catheter was D/popeye and PLEASE DO NOT TRY TO REINSERT Draining normally Was schedule to remove suprapubic catheter tomorrow 04/05/17 by Urology Continue suprapubic catheter drainage in setting of COLLIN /Hypotension/severe sepsis Urology consult requested, pt was seen by Dr Guzman in past No Madrigal please CHRONIC THROMBOCYTOPENIA : Platelet 62 on presentation Prior lab work Platelet 71 ( 03/06/17 ) -> 86 ( 03/07/17 ) -89 ( 03/08/17 ) [place] 34 today 04/06/17 and remains at 34 No Pharmacologic anticoagulation Follows with Heme onc Dr Bowman [facility] [place] avoid antiplatelets , anticoagulation ordered for daily CBC HX OF PSORIATIC ARTHRITIS : was on Humira 20mg/0.4ml twice monthly on hold for severe sepsis HTN : presents with sepsis , vol depletion , hypotension /COLLIN Hold Lasix( was on 40 mg BID ) and ACEI -Lisinopril 5 mg daily Resuscitated for low BP BP is maintained now GERD: ordered PPI CODE STATUS : FULL CODE D/w PT DVT PROPHYLAXIS : Moderate to high risk pharmacological anticoagulation avoided - thrombocytopenia scd and teds DISPOSITION ; lives at home with independent in [place]L;'s will need PT/OT eval when medically stable Social service contused for discharge planning Pt follows with Dr [facility] Urology follow up with [facility] Discussed with the Vital Signs: Date Time Temp Pulse Resp B/P (MAP) Pulse Ox O2 Delivery O2 Flow Rate FiO2 04/09/17 12:00 95 Nasal Cannula 2.0 04/09/17 12:00 37.2 90 18 154/74 (100) 95 Room Air 04/09/17 11:34 94 99 04/09/17 08:00 37.2 96 24 131/72 (91) 95 Nasal Cannula 2.0 04/09/17 08:00 95 Nasal Cannula 2.0 04/09/17 04:00 Nasal Cannula 2.0 04/09/17 03:44 36.9 90 26 120/73 (89) 97 Nasal Cannula 2.0 04/08/17 23:59 Nasal Cannula 2.0 04/08/17 23:50 37.8 99 27 114/50 (71) 97 Nasal Cannula 2.0 04/08/17 21:00 37.0 96 24 124/75 (91) 97 Room Air 04/08/17 20:00 Room Air 04/08/17 16:00 37.4 103 24 114/58 (76) 94 Nasal Cannula 2.0 04/08/17 16:00 Room Air Lab Results: Results Past 24 Hours Test 04/08/17 15:40 04/08/17 21:01 04/09/17 05:17 04/09/17 06:28 Range/Units Bedside Glucose 138 124 140 70-99 mg/dl Prothrombin Time 13.6 9.0-12.0 SECONDS Prothromb Time International Ratio 1.3 0.9-1.1 Creatinine 2.40 0.60-1.40 mg/dl Est Creatinine Clear Calc Drug Dose 44.2 ml/min Estimated GFR () 32.3 Estimated GFR (Non- 27.9 Phosphorus Level 2.6 2.5-4.9 mg/dl Total Bilirubin 1.2 0.2-1 mg/dl Direct Bilirubin 0.7 0-0.2 mg/dl Aspartate Amino Transf (AST/SGOT) 43 15-37 U/L Alanine Aminotransferase (ALT/SGPT) 28 12-78 U/L Alkaline Phosphatase 83 45-117 U/L Total Protein 5.7 6.4-8.2 gm/dl Albumin 2.1 3.4-5.0 gm/dl Lipase 178 73-393 U/L
[2017-04-09] MEDS: MoRPHine SULFATE 2 MG/ML CARP IV PRN (21:39)
[2017-04-10] MEDS: SODIUM BICARBONATE 8.4% INJ 150 MEQ in DEXTROSE 5% 1000ML 1,000 ML IV SCH ×2 (00:22→08:32)
[2017-04-10] MEDS: AMPICILLIN IV 2,000 MG in SODIUM CHLOR 0.9% AD-VAN 100ML 100 ML IV SCH ×5 (00:22→23:45)
[2017-04-10 04:12] VITALS: BP 162/73; PULSE 79; O2SAT 95
[2017-04-10 06:01] LABS: NUCLEATED RED BLOOD CELL ABS 0.03 K/uL (0-0)
[2017-04-10 06:22] LABS: HEMATOCRIT 24.5 % (42-52); HEMOGLOBIN 8.2 g/dL (14.0-18.0); MEAN CELL VOLUME 91.8 fL (80-100); MEAN CORPUSCULAR HEMOGLOBIN 30.7 pg (25-34); MEAN CORPUSCULAR HGB CONC 33.5 g/dl (32-36); MEAN PLATELET VOLUME 9.1 fL (7.4-10.4); PLATELET COUNT 60 K/uL (130-400); RED CELL DISTRIBUTION WIDTH CV 15.1 % (11.5-14.5); RED CELL DISTRIBUTION WIDTH SD 50.7 fL (36.4-46.3)
[2017-04-10 06:39] LABS: CALCIUM 8.3 mg/dl (8.5-10.1); CREATININE 2.12 mg/dl (0.60-1.40); PHOSPHORUS 2.6 mg/dl (2.5-4.9); POTASSIUM 3.9 mmol/L (3.5-5.1)
[2017-04-10] MEDS: INSULIN ASPART 100 UNITS/ML 3 ML PEN SC SCH ×4 (06:45→20:38)
[2017-04-10 08:00] VITALS: BP 147/86; PULSE 96; O2SAT 93
[2017-04-10] MEDS: PANTOprazole SOD 40 MG TAB PO SCH (08:29)
[2017-04-10] MEDS: BACITRACIN OINT 15 GM TUBE EXT SCH ×2 (08:29→20:38)
[2017-04-10] MEDS: INSULIN GLARGINE SOLOSTAR 100 UNITS/ML 3 ML PEN SC SCH ×2 (08:30→20:38)
[2017-04-10 12:00] VITALS: BP 165/83; PULSE 86; O2SAT 92
--- NOTE | 2017-04-10 14:06 | Nephrology Progress Note ---
Nephrology Progress Note Date of Service: Apr 10, 2017. Subjective 61 yo male seen for follow up of atn with creatinine that continues to trend down. pt urinating well through the suprapubic catheter. iv fluids stopped today. had picc line placed as well. continues to have nausea to hot foods. able to drink water well. in room. answered questions Objective Date Time Temp Pulse Resp B/P (MAP) Pulse Ox O2 Delivery O2 Flow Rate FiO2 04/10/17 12:00 Room Air 04/10/17 12:00 86 18 165/83 (110) 92 Room Air 04/10/17 08:00 96 18 147/86 (106) 93 Room Air 04/10/17 08:00 Room Air 04/10/17 04:12 79 23 162/73 (102) 95 Nasal Cannula 2.0 04/10/17 04:11 Room Air 04/10/17 00:33 Room Air 04/09/17 23:38 37.1 91 24 141/73 (95) 95 Room Air 04/09/17 21:01 93 22 148/59 (88) 04/09/17 20:01 38.3 100 22 155/67 (96) 04/09/17 20:00 100 27 04/09/17 20:00 93 Nasal Cannula 2.0 04/09/17 16:00 93 Nasal Cannula 2.0 Physical Exam: General-aaox3 Eyes-no scleral icterus ENT-mmm Neck-supple Lungs-cta Heart-rrr Abdomen-bs+ s/nt/+suprapubic catheter Extremities-mild edema Neuro-nonfocal Current Inpatient Medications Medications (Trade) Dose Ordered Sig/Min Route Start Time Stop Time Status Last Admin Dose Admin Acetaminophen (Tylenol Tab) 650 mg Q4H PRN PO 04/04/17 19:15 05/04/17 19:14 04/09/17 18:48 650 MG Morphine Sulfate (MoRPHine SULFATE INJ) 2 mg Q2H PRN IV 04/04/17 19:15 04/18/17 19:14 04/09/17 21:39 2 MG Glucose (Glucose 40% Gel) 15-30 GRAMS 15 GRAMS... UD PRN PO 04/05/17 00:30 05/05/17 00:29 Glucose (Glucose Chew Tab) 4-8 Tablets 4 Tabl... UD PRN PO 04/05/17 00:30 05/05/17 00:29 Dextrose (Dextrose 50% 50ML Syringe) 25-50ML OF 50% DW IV FOR... UD PRN IV 04/05/17 00:30 05/05/17 00:29 Glucagon (Glucagon Inj) 1 mg UD PRN SQ 04/05/17 00:30 05/05/17 00:29 Bacitracin (Bacitracin Oint) 1 appln BID EXT 04/05/17 21:00 05/05/17 20:59 04/10/17 08:29 1 APPLN Insulin Aspart (novoLOG ASPART) SLIDING SCALE ACHS SC 04/06/17 11:00 05/06/17 10:59 04/10/17 13:19 4 UNITS Zolpidem Tartrate (Ambien Tab) 5 mg HS PRN PO 04/06/17 21:15 05/06/17 21:14 04/07/17 00:01 5 MG Dexamethasone/ Nystatin/ Diphenhydramine HCl/Sucrose/ Microcrystalline Cellulose/Barcode Q12H PRN PO 04/06/17 21:15 05/06/17 21:14 04/08/17 12:07 5 ML Insulin Glargine (Lantus Solostar Pen) SEE PROTOCOL TXT BID SC 04/07/17 21:00 05/07/17 20:59 04/09/17 08:11 10 UNITS Ampicillin Sodium 2000 mg/Sodium Chloride 108 ml @ 216 mls/hr Q6 IV 04/08/17 13:30 04/22/17 13:29 04/10/17 13:20 216 MLS/HR Miscellaneous Information 1 ea UD PRN N/A 04/08/17 13:45 05/08/17 13:44 Pantoprazole Sodium (Protonix Tab) 40 mg QAM PO 04/09/17 09:00 05/09/17 08:59 04/10/17 08:29 40 MG Last 24 Hours Test 04/09/17 16:07 04/09/17 21:12 04/10/17 05:44 04/10/17 11:05 Bedside Glucose 125 mg/dl 139 mg/dl 144 mg/dl White Blood Count 7.00 K/uL Red Blood Count 2.67 M/uL Hemoglobin 8.2 g/dL Hematocrit 24.5 % Mean Corpuscular Volume 91.8 fL Mean Corpuscular Hemoglobin 30.7 pg Mean Corpuscular Hemoglobin Concent 33.5 g/dl RDW Standard Deviation 50.7 fL RDW Coefficient of Variation 15.1 % Platelet Count 60 K/uL Mean Platelet Volume 9.1 fL Nucleated RBC Absolute Count (auto) 0.03 K/uL Nucleated Red Blood Cells % 0.4 % Sodium Level 146 mmol/L Potassium Level 3.9 mmol/L Chloride Level 110 mmol/L Carbon Dioxide Level 30 mmol/L Anion Gap 6.0 mmol/L Blood Urea Nitrogen 33 mg/dl Creatinine 2.12 mg/dl Est Creatinine Clear Calc Drug Dose 50.3 ml/min Estimated GFR () 37.5 Estimated GFR (Non- 32.4 BUN/Creatinine Ratio 15.5 Random Glucose 131 mg/dl Calcium Level 8.3 mg/dl Phosphorus Level 2.6 mg/dl Magnesium Level 2.2 mg/dl Assessment & Plan COLLIN wiht baseline creatinine of 1.2 and creatinine improving. stopped iv fluids. encourage oral fluids. would recommend follow up with me as outpt [place]. acidosis corrected. has developed mild hypernatremia which should improve with him off iv fluids.
[2017-04-10 15:41] VITALS: BP 165/83; PULSE 86; TEMP 37.1; O2SAT 92
[2017-04-10 15:44] VITALS: BP 130/75; PULSE 79; TEMP 37.3; O2SAT 96
--- NOTE | 2017-04-10 16:02 | Progress Note ---
Internal Med Progress Note Date of Service: Apr 10, 2017. Provider Documentation: SUBJECTIVE: The patient was seen and examined Clinically a lot better Denies any symptoms Can be transferred to Medical floor OBJECTIVE: Vital Signs-as noted below Exam: General-no acute distress at rest Obese Eyes-NORMAL ENT-NORMAL Neck-SUPPLE Lungs-decreased breath sound bilaterally Minimal basal crackles Heart-Regular,no murmur appreciated Abdomen-Benign,mildly tender ,no guarding and or rigidity Extremities-Trace edema bilaterally Neuro-AAOx3 Generally weak Lab data as noted below. CT of the Abd&Pel:1. A suprapubic bladder catheter is in place. The bladder wall is thickened and there is significant pericystic inflammatory stranding. Correlate clinically and with urinalysis for evidence of cystitis. 2. There is mild fullness of the renal collecting system bilaterally without hydronephrosis. Bilateral perinephric stranding is nonspecific. Correlate clinically and with urinalysis for evidence of pyelonephritis. 3. The appearance of the liver suggests cirrhosis. 4. The spleen is enlarged. 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 5. Trace pleural effusions. 6. Additional findings as above. ASSESSMENT & PLAN: SEVERE SEPSIS WITH SEPTIC SHOCK ::Gamma Hemolytic Strepto Bacteremia-Enterococci :::sensitive to Ampicillin Met criteria and was admitted ti ICU Presented with Fever Temp 38 /HR 120 sinus tach /hypotension BP 61/33 Leukocytosis WBC 16 K , elevated lactic acid level > 4 /Pro Calcitonin > 20 /C- reactive protein > 12 ,Procalcitonin > 20 Source of infection -complicated UTI ( presence of chronic suprapubic catheter , recent urological procedure -Urethral reconstructive surgery on 03/06/17 ) Recent Voiding Cystourethrogram 04/02/17 : noted: vesicoureteral reflux noted R> L . Rt vesicoureteral reflux opacifies the rt collecting system CT abdomen /pelvis :As Above Started on Broad spectrum ABx Zosyn and Vancomycin Blood and urine culture ordered -Gm Positive Streptococci-Enterococci Appreciate ID and Urology input and recommendation Clinically a lot better Antibiotic changed to Ampicillin -to continue for a total of 14 days from Negative culture PICC placed Transferred to Medical PT evaluation and plan for Discharge COLLIN /ATN : Baseline cr 1.2 on 03/08/2017 ; GFR > 60 Presents with Cr > 6 Possible due to severe sepsis /hypotension /on ACEI /Lasix ER visit on 03/17/17 for COLLIN Cr was 1.6 Received NSAIDs and Bactrim AN op pt reports of adequate drainage of urine from suprapubic catheter aggressive IV fluid resuscitation 30 ml /KG BW per sepsis protocol avoid NSAID's /Contrast . all diuretics discontinued PRP monitor Q 4hrs per Sepsis protocol Nephrology consulted -appreciate input Renal function continues to improve -Creatinine 2.73 today 04/08/17 Kidney function is improving-creatinine 2.12 on 04/10/17 Stopped Bicarb CHRONIC SUPRAPUBIC CATHETER/RECENT RECONSTRUCTION OF OF URETHRA : NO Hydronephrosis in CT of the Abdomen and Pelvis due to urethral stricture /Bladder out let obstruction had Suprapubic catheter > 3 yrs had recent reconstruction surgery for urethra in [facility] on by Urology Dr Hernandez underwent : Single stage urethroplasty, ventral buccal mucosa graft substitution urethroplasty, harvest of buccal mucosa graft 6 cm x 2 cm , Cystoscopy pt had uneventful post op course Discharge home on 03/08/17 Had recent post surgery visit in [place] with Dr Hernandez on 04/02/17 : voiding cystourethrogram on 04/02/17 : Bladder filled normally with out intrinsic or extrinsic defect vesicoureteral reflux noted R> L . Rt vesicoureteral reflux opacifies the rt collecting system Patent Urethra during spontaneous voiding without evidence of leak. Madrigal Catheter was D/popeye and PLEASE DO NOT TRY TO REINSERT Draining normally Was schedule to remove suprapubic catheter tomorrow 04/05/17 by Urology Continue suprapubic catheter drainage in setting of COLLIN /Hypotension/severe sepsis Urology consult requested, pt was seen by Dr Guzman in past No Madrigal please CHRONIC THROMBOCYTOPENIA : Platelet 62 on presentation Prior lab work Platelet 71 ( 03/06/17 ) -> 86 ( 03/07/17 ) -89 ( 03/08/17 ) Plartelet 34 today 04/06/17 and remains at 34 No Pharmacologic anticoagulation DO NOT USE ANY PEPARIN/HEPARIN PRODUCTS Follows with Heme onc Dr Bowman [facility] [place] avoid antiplatelets , anticoagulation ordered for daily CBC HX OF PSORIATIC ARTHRITIS : was on Humira 20mg/0.4ml twice monthly on hold for severe sepsis HTN : presents with sepsis , vol depletion , hypotension /COLLIN Hold Lasix( was on 40 mg BID ) and ACEI -Lisinopril 5 mg daily Resuscitated for low BP BP is maintained now GERD: ordered PPI CODE STATUS : FULL CODE D/w PT DVT PROPHYLAXIS : Moderate to high risk pharmacological anticoagulation avoided - thrombocytopenia scd and teds DISPOSITION ; lives at home with independent in [place];'s Social service contused for discharge planning Pt follows with Dr Truong-[facility] Urology follow up with [facility] Discussed with the Vital Signs: Date Time Temp Pulse Resp B/P (MAP) Pulse Ox O2 Delivery O2 Flow Rate FiO2 04/10/17 15:44 37.3 79 18 130/75 (93) 96 Room Air 04/10/17 15:41 37.1 86 18 92 04/10/17 12:00 Room Air 04/10/17 12:00 86 18 165/83 (110) 92 Room Air 04/10/17 08:00 96 18 147/86 (106) 93 Room Air 04/10/17 08:00 Room Air 04/10/17 04:12 79 23 162/73 (102) 95 Nasal Cannula 2.0 04/10/17 04:11 Room Air 04/10/17 00:33 Room Air 04/09/17 23:38 37.1 91 24 141/73 (95) 95 Room Air 04/09/17 21:01 93 22 148/59 (88) 04/09/17 20:01 38.3 100 22 155/67 (96) 04/09/17 20:00 100 27 04/09/17 20:00 93 Nasal Cannula 2.0 04/09/17 16:00 93 Nasal Cannula 2.0 Lab Results: Results Past 24 Hours Test 04/09/17 16:07 04/09/17 21:12 04/10/17 05:44 04/10/17 11:05 Range/Units Bedside Glucose 125 139 144 70-99 mg/dl White Blood Count 7.00 4.8-10.8 K/uL Red Blood Count 2.67 4.7-6.1 M/uL Hemoglobin 8.2 14.0-18.0 g/dL Hematocrit 24.5 42-52 % Mean Corpuscular Volume 91.8 80-100 fL Mean Corpuscular Hemoglobin 30.7 25-34 pg Mean Corpuscular Hemoglobin Concent 33.5 32-36 g/dl RDW Standard Deviation 50.7 36.4-46.3 fL RDW Coefficient of Variation 15.1 11.5-14.5 % Platelet Count 60 130-400 K/uL Mean Platelet Volume 9.1 7.4-10.4 fL Nucleated RBC Absolute Count (auto) 0.03 0-0 K/uL Nucleated Red Blood Cells % 0.4 % Sodium Level 146 136-145 mmol/L Potassium Level 3.9 3.5-5.1 mmol/L Chloride Level 110 98-107 mmol/L Carbon Dioxide Level 30 21-32 mmol/L Anion Gap 6.0 3-11 mmol/L Blood Urea Nitrogen 33 7-18 mg/dl Creatinine 2.12 0.60-1.40 mg/dl Est Creatinine Clear Calc Drug Dose 50.3 ml/min Estimated GFR () 37.5 Estimated GFR (Non- 32.4 BUN/Creatinine Ratio 15.5 10-20 Random Glucose 131 70-99 mg/dl Calcium Level 8.3 8.5-10.1 mg/dl Phosphorus Level 2.6 2.5-4.9 mg/dl Magnesium Level 2.2 1.8-2.4 mg/dl
[2017-04-10] MEDS ORDERED: PROCHLORPERAZINE INJ 5 MG in SYRINGE 4 ML IV PRN (22:30)
[2017-04-10 23:29] VITALS: BP 129/72; PULSE 96; TEMP 37.4; O2SAT 95
[2017-04-11] MEDS: AMPICILLIN IV 2,000 MG in SODIUM CHLOR 0.9% AD-VAN 100ML 100 ML IV SCH ×4 (05:59→20:22)
[2017-04-11 07:12] VITALS: BP 130/76; PULSE 82; TEMP 36.6; O2SAT 92
[2017-04-11] MEDS: PANTOprazole SOD 40 MG TAB PO SCH (08:21)
[2017-04-11] MEDS: INSULIN GLARGINE SOLOSTAR 100 UNITS/ML 3 ML PEN SC SCH ×2 (08:21→20:27)
[2017-04-11] MEDS: BACITRACIN OINT 15 GM TUBE EXT SCH ×2 (08:22→20:28)
[2017-04-11] MEDS: INSULIN ASPART 100 UNITS/ML 3 ML PEN SC SCH ×4 (08:23→20:27)
[2017-04-11 08:32] LABS: HEMATOCRIT 24.8 % (42-52); HEMOGLOBIN 8.3 g/dL (14.0-18.0); MEAN CELL VOLUME 92.5 fL (80-100); MEAN CORPUSCULAR HGB CONC 33.5 g/dl (32-36); RED CELL DISTRIBUTION WIDTH CV 15.2 % (11.5-14.5); RED CELL DISTRIBUTION WIDTH SD 51.6 fL (36.4-46.3); WHITE BLOOD COUNT 7.32 K/uL (4.8-10.8)
[2017-04-11 08:37] LABS: MEAN PLATELET VOLUME 8.9 fL (7.4-10.4); PLATELET COUNT 72 K/uL (130-400)
[2017-04-11 09:03] LABS: CALCIUM 8.7 mg/dl (8.5-10.1); CREATININE 1.99 mg/dl (0.60-1.40); POTASSIUM 3.8 mmol/L (3.5-5.1)
[2017-04-11 09:06] LABS: PHOSPHORUS 3.2 mg/dl (2.5-4.9)
[2017-04-11 15:33] VITALS: BP 146/79; PULSE 81; TEMP 36.7; O2SAT 94
--- NOTE | 2017-04-11 18:59 | Progress Note ---
Internal Med Progress Note Date of Service: Apr 11, 2017. Provider Documentation: SUBJECTIVE: resting comfortably appetite slowly improving no nausea or abdominal pain no cough afebrile no chest pain or sob OBJECTIVE: Vital Signs-as noted below Exam: General-alert and oriented. Not in distress ENT-normal hearing Neck-no neck masses Lungs-cta b/l no wheezing or crackles Heart-s1 and s2 heard regular rate and rhythm no murmurs Abdomen-soft bowel sounds present non tender no distension Extremities-no edema no erythema Neuro-alert and awake moves extremities Lab data as noted below. ASSESSMENT & PLAN: SEVERE SEPSIS WITH SEPTIC SHOCK ::Gamma Hemolytic Strepto Bacteremia-Enterococci :::sensitive to Ampicillin Met criteria and was admitted ti ICU with elevated wbc lactic acid >4 and pro calcitonin >20 Source of infection -complicated UTI ( presence of chronic suprapubic catheter , recent urological procedure -Urethral reconstructive surgery on 03/06/17 ) Recent Voiding Cystourethrogram 04/02/17 : noted: vesicoureteral reflux noted R> L . Rt vesicoureteral reflux opacifies the rt collecting system CT abdomen /pelvis :As Above Initially was on ABx Zosyn and Vancomycin Blood and urine culture ordered -Gm Positive Streptococci-Enterococci seen by urology and ID and appreciate inputs ID recommends 14 days of iv ampicillin currently stable COLLIN /ATN : Baseline cr 1.2 on 03/08/2017 ; GFR > 60 Presents with Cr > 6 Possible due to severe sepsis /hypotension /on ACEI /Lasix Received NSAIDs and Bactrim AN op Nephrology consulted -appreciate input received bi carb today Cr 1.9 will f/u albs CHRONIC SUPRAPUBIC CATHETER/RECENT RECONSTRUCTION OF OF URETHRA : As per " NO Hydronephrosis in CT of the Abdomen and Pelvis due to urethral stricture /Bladder out let obstruction had Suprapubic catheter > 3 yrs had recent reconstruction surgery for urethra in [facility] on by Urology Dr Hernandez underwent : Single stage urethroplasty, ventral buccal mucosa graft substitution urethroplasty, harvest of buccal mucosa graft 6 cm x 2 cm , Cystoscopy pt had uneventful post op course Discharge home on 03/08/17 Had recent post surgery visit in [place] with Dr Hernandez on 04/02/17 : voiding cystourethrogram on 04/02/17 : Bladder filled normally with out intrinsic or extrinsic defect vesicoureteral reflux noted R> L . Rt vesicoureteral reflux opacifies the rt collecting system Patent Urethra during spontaneous voiding without evidence of leak. Madrigal Catheter was D/popeye and PLEASE DO NOT TRY TO REINSERT" Draining normally currently f/u with [facility] CHRONIC THROMBOCYTOPENIA : Platelet 62 on presentation DO NOT USE ANY PEPARIN/HEPARIN PRODUCTS Follows with Heme onc Dr Bowman [facility] [place] avoid antiplatelets , anticoagulation ordered for daily CBC HX OF PSORIATIC ARTHRITIS : was on Humira 20mg/0.4ml twice monthly on hold for severe sepsis HTN : Hold Lasix( was on 40 mg BID ) and ACEI -Lisinopril 5 mg daily Resuscitated for low BP will restart when Bp gets elevated GERD: ordered PPI CODE STATUS : FULL CODE D/w PT DVT PROPHYLAXIS : pharmacological anticoagulation avoided - thrombocytopenia scd and teds DISPOSITION ; pt/ot Social service contused for discharge planning may need placement Pt follows with Dr Truong-[facility] Urology follow up with [facility] Discussed with the Vital Signs: Date Time Temp Pulse Resp B/P (MAP) Pulse Ox O2 Delivery O2 Flow Rate FiO2 04/11/17 15:40 Room Air 04/11/17 15:33 36.7 81 18 146/79 (101) 94 Room Air 04/11/17 08:20 Room Air 04/11/17 07:12 36.6 82 20 130/76 (94) 92 Room Air 04/11/17 00:00 Room Air 04/10/17 23:29 37.4 96 20 129/72 (91) 95 Room Air Lab Results: Results Past 24 Hours Test 04/10/17 19:58 04/11/17 07:32 04/11/17 08:20 04/11/17 11:16 Range/Units Bedside Glucose 117 100 102 70-99 mg/dl White Blood Count 7.32 4.8-10.8 K/uL Red Blood Count 2.68 4.7-6.1 M/uL Hemoglobin 8.3 14.0-18.0 g/dL Hematocrit 24.8 42-52 % Mean Corpuscular Volume 92.5 80-100 fL Mean Corpuscular Hemoglobin 31.0 25-34 pg Mean Corpuscular Hemoglobin Concent 33.5 32-36 g/dl RDW Standard Deviation 51.6 36.4-46.3 fL RDW Coefficient of Variation 15.2 11.5-14.5 % Platelet Count 72 130-400 K/uL Mean Platelet Volume 8.9 7.4-10.4 fL Sodium Level 144 136-145 mmol/L Potassium Level 3.8 3.5-5.1 mmol/L Chloride Level 110 98-107 mmol/L Carbon Dioxide Level 28 21-32 mmol/L Anion Gap 7.0 3-11 mmol/L Blood Urea Nitrogen 29 7-18 mg/dl Creatinine 1.99 0.60-1.40 mg/dl Est Creatinine Clear Calc Drug Dose 53.5 ml/min Estimated GFR () 40.5 Estimated GFR (Non- 34.9 BUN/Creatinine Ratio 14.6 10-20 Random Glucose 120 70-99 mg/dl Calcium Level 8.7 8.5-10.1 mg/dl Phosphorus Level 3.2 2.5-4.9 mg/dl Magnesium Level 2.3 1.8-2.4 mg/dl Test 04/11/17 17:30 Range/Units Bedside Glucose 162 70-99 mg/dl
[2017-04-12 00:30] VITALS: BP 155/80; PULSE 79; TEMP 37; O2SAT 95
[2017-04-12] MEDS: AMPICILLIN IV 2,000 MG in SODIUM CHLOR 0.9% AD-VAN 100ML 100 ML IV SCH ×6 (00:36→19:48)
[2017-04-12] MEDS: BACITRACIN OINT 15 GM TUBE EXT SCH ×2 (07:41→19:48)
[2017-04-12] MEDS: PANTOprazole SOD 40 MG TAB PO SCH (07:41)
[2017-04-12] MEDS: INSULIN ASPART 100 UNITS/ML 3 ML PEN SC SCH ×4 (07:54→20:34)
[2017-04-12] MEDS: INSULIN GLARGINE SOLOSTAR 100 UNITS/ML 3 ML PEN SC SCH ×2 (07:55→20:33)
[2017-04-12 08:32] VITALS: BP 148/73; PULSE 77; TEMP 37.1; O2SAT 95
[2017-04-12 13:04] LABS: CALCIUM 8.3 mg/dl (8.5-10.1); CREATININE 1.91 mg/dl (0.60-1.40); POTASSIUM 3.6 mmol/L (3.5-5.1)
[2017-04-12 15:08] VITALS: BP 135/73; PULSE 78; TEMP 37.1; O2SAT 98
--- NOTE | 2017-04-12 18:53 | Progress Note ---
Internal Med Progress Note Date of Service: Apr 12, 2017. Provider Documentation: SUBJECTIVE: resting comfortably says ambulated well today and likes to go home asks to restart Lasix as his legs are getting swollen afebrile no sob OBJECTIVE: Vital Signs-as noted below Exam: General-alert and oriented. Not in distress ENT-normal hearing Neck-no neck masses Lungs-cta b/l no wheezing or crackles Heart-s1 and s2 heard regular rate and rhythm no murmurs Abdomen-soft bowel sounds present non tender no distension Extremities-lower extremity edema present no erythema Neuro-alert and awake moves extremities Lab data as noted below. ASSESSMENT & PLAN: SEVERE SEPSIS WITH SEPTIC SHOCK ::Gamma Hemolytic Strepto Bacteremia-Enterococci :::sensitive to Ampicillin Met criteria and was admitted ti ICU with elevated wbc lactic acid >4 and pro calcitonin >20 Source of infection -complicated UTI ( presence of chronic suprapubic catheter , recent urological procedure -Urethral reconstructive surgery on 03/06/17 ) Recent Voiding Cystourethrogram 04/02/17 : noted: vesicoureteral reflux noted R> L . Rt vesicoureteral reflux opacifies the rt collecting system CT abdomen /pelvis :As Above Initially was on ABx Zosyn and Vancomycin Blood and urine culture ordered -Gm Positive Streptococci-Enterococci seen by urology and ID and appreciate inputs ID recommends 14 days of iv ampicillin from negative cx currently stable plan for rehab vs home with home health COLLIN /ATN : Baseline cr 1.2 on 03/08/2017 ; GFR > 60 Presents with Cr > 6 Possible due to severe sepsis /hypotension /on ACEI /Lasix Received NSAIDs and Bactrim AN op Nephrology consulted -appreciate input received bi carb today Cr 1.9 will f/u albs CHRONIC SUPRAPUBIC CATHETER/RECENT RECONSTRUCTION OF OF URETHRA : As per " NO Hydronephrosis in CT of the Abdomen and Pelvis due to urethral stricture /Bladder out let obstruction had Suprapubic catheter > 3 yrs had recent reconstruction surgery for urethra in [facility] on by Urology Dr Hernandez underwent : Single stage urethroplasty, ventral buccal mucosa graft substitution urethroplasty, harvest of buccal mucosa graft 6 cm x 2 cm , Cystoscopy pt had uneventful post op course Discharge home on 03/08/17 Had recent post surgery visit in [place] with Dr Hernandez on 04/02/17 : voiding cystourethrogram on 04/02/17 : Bladder filled normally with out intrinsic or extrinsic defect vesicoureteral reflux noted R> L . Rt vesicoureteral reflux opacifies the rt collecting system Patent Urethra during spontaneous voiding without evidence of leak. Madrigal Catheter was D/popeye and PLEASE DO NOT TRY TO REINSERT" Draining normally currently f/u with [facility] CHRONIC THROMBOCYTOPENIA : Platelet 62 on presentation DO NOT USE ANY PEPARIN/HEPARIN PRODUCTS Follows with Heme onc Dr Bowman [facility] [place] avoid antiplatelets , anticoagulation ordered for daily CBC HX OF PSORIATIC ARTHRITIS : was on Humira 20mg/0.4ml twice monthly on hold for severe sepsis HTN : Hold Lasix( was on 40 mg BID ) and ACEI -Lisinopril 5 mg daily Resuscitated for low BP will restart when Bp gets elevated sixto restart Lasix GERD: ordered PPI CODE STATUS : FULL CODE D/w PT DVT PROPHYLAXIS : pharmacological anticoagulation avoided - thrombocytopenia scd and teds DISPOSITION ; pt/ot Social service contused for discharge planning may need placement home with home health vs rehab. Pt follows with Dr Truong-[facility] Urology follow up with [facility] Discussed with the Vital Signs: Date Time Temp Pulse Resp B/P (MAP) Pulse Ox O2 Delivery O2 Flow Rate FiO2 04/12/17 16:00 Room Air 04/12/17 15:08 37.1 78 18 135/73 (93) 98 04/12/17 08:32 37.1 77 18 148/73 (98) 95 Room Air 04/12/17 08:00 Room Air 04/12/17 00:30 37.0 79 20 155/80 (105) 95 Room Air 04/12/17 00:10 Room Air Lab Results: Results Past 24 Hours Test 04/11/17 20:10 04/12/17 07:44 04/12/17 11:10 04/12/17 12:09 Range/Units Bedside Glucose 139 125 141 70-99 mg/dl Sodium Level 144 136-145 mmol/L Potassium Level 3.6 3.5-5.1 mmol/L Chloride Level 110 98-107 mmol/L Carbon Dioxide Level 27 21-32 mmol/L Anion Gap 7.0 3-11 mmol/L Blood Urea Nitrogen 26 7-18 mg/dl Creatinine 1.91 0.60-1.40 mg/dl Est Creatinine Clear Calc Drug Dose 55.8 ml/min Estimated GFR () 42.6 Estimated GFR (Non- 36.7 BUN/Creatinine Ratio 13.6 10-20 Random Glucose 142 70-99 mg/dl Calcium Level 8.3 8.5-10.1 mg/dl Magnesium Level 2.2 1.8-2.4 mg/dl Test 04/12/17 16:20 Range/Units Bedside Glucose 96 70-99 mg/dl
[2017-04-12] MEDS ORDERED: FUROSEMIDE INJ 20 MG in SYRINGE 0 ML IV ONE (19:15)
[2017-04-12] MEDS: ACETAMINOPHEN 325 MG TAB PO PRN (19:51)
[2017-04-13 00:07] VITALS: BP 150/71; PULSE 80; TEMP 37; O2SAT 96
[2017-04-13] MEDS: AMPICILLIN IV 2,000 MG in SODIUM CHLOR 0.9% AD-VAN 100ML 100 ML IV SCH ×6 (00:19→20:55)
[2017-04-13 05:50] LABS: HEMATOCRIT 25.6 % (42-52); HEMOGLOBIN 8.3 g/dL (14.0-18.0); MEAN CELL VOLUME 93.8 fL (80-100); MEAN CORPUSCULAR HEMOGLOBIN 30.4 pg (25-34); MEAN CORPUSCULAR HGB CONC 32.4 g/dl (32-36); MEAN PLATELET VOLUME 9.6 fL (7.4-10.4); PLATELET COUNT 103 K/uL (130-400); RED CELL DISTRIBUTION WIDTH CV 15.3 % (11.5-14.5); RED CELL DISTRIBUTION WIDTH SD 51.8 fL (36.4-46.3)
[2017-04-13 06:19] LABS: BASO % 0.2 %; BASO ABS # 0.01 K/uL (0-0.2); EOS % 2.3 %; EOS ABS # 0.15 K/uL (0-0.5); IG# 0.02 K/uL (0.00-0.02); LYMPH % 14.2 %; LYMPH ABS # 0.92 K/uL (1.2-3.4); MONO % 9.7 %; MONO ABS # 0.63 K/uL (0.11-0.59); NEUT % 73.3 %; NEUT ABS # 4.77 K/uL (1.4-6.5)
[2017-04-13 06:20] LABS: CALCIUM 8.1 mg/dl (8.5-10.1); CREATININE 1.88 mg/dl (0.60-1.40); POTASSIUM 3.4 mmol/L (3.5-5.1)
[2017-04-13 07:55] VITALS: BP 139/73; PULSE 74; TEMP 36.9; O2SAT 96
[2017-04-13 08:00] VITALS: O2SAT 96
[2017-04-13] MEDS: FUROSEMIDE 40 MG TAB PO SCH (08:15)
[2017-04-13] MEDS: PANTOprazole SOD 40 MG TAB PO SCH (08:15)
[2017-04-13] MEDS: BACITRACIN OINT 15 GM TUBE EXT SCH ×2 (08:18→22:12)
[2017-04-13] MEDS: INSULIN GLARGINE SOLOSTAR 100 UNITS/ML 3 ML PEN SC SCH ×2 (08:19→21:00)
[2017-04-13] MEDS: INSULIN ASPART 100 UNITS/ML 3 ML PEN SC SCH ×4 (08:32→21:00)
[2017-04-13] MEDS ORDERED: POTASSIUM CHLORIDE 10 MEQ TABCR PO STA (13:10)
[2017-04-13 15:38] VITALS: BP 136/81; PULSE 70; TEMP 36.8; O2SAT 96
--- NOTE | 2017-04-13 18:26 | Progress Note ---
Internal Med Progress Note Date of Service: Apr 13, 2017. Provider Documentation: SUBJECTIVE: says leg swelling has come down eating fine moving bowels ok no sob afebrile awaiting discharge OBJECTIVE: Vital Signs-as noted below Exam: General-alert and oriented. Not in distress ENT-normal hearing Neck-no neck masses Lungs-cta b/l no wheezing or crackles Heart-s1 and s2 heard regular rate and rhythm no murmurs Abdomen-soft bowel sounds present non tender no distension Extremities-lower extremity edema present no erythema Neuro-alert and awake moves extremities Lab data as noted below. ASSESSMENT & PLAN: SEVERE SEPSIS WITH SEPTIC SHOCK ::Gamma Hemolytic Strepto Bacteremia-Enterococci :::sensitive to Ampicillin Met criteria and was admitted ti ICU with elevated wbc lactic acid >4 and pro calcitonin >20 Source of infection -complicated UTI ( presence of chronic suprapubic catheter , recent urological procedure -Urethral reconstructive surgery on 03/06/17 ) Recent Voiding Cystourethrogram 04/02/17 : noted: vesicoureteral reflux noted R> L . Rt vesicoureteral reflux opacifies the rt collecting system CT abdomen /pelvis :As Above Initially was on ABx Zosyn and Vancomycin Blood and urine culture ordered -Gm Positive Streptococci-Enterococci seen by urology and ID and appreciate inputs ID recommends 14 days of iv ampicillin from negative cx currently stable plan for home with home health possible on Saturday COLLIN /ATN : Baseline cr 1.2 on 03/08/2017 ; GFR > 60 Presents with Cr > 6 Possible due to severe sepsis /hypotension /on ACEI /Lasix Received NSAIDs and Bactrim AN op Nephrology consulted -appreciate input received bi carb today Cr 1.8 will f/u albs CHRONIC SUPRAPUBIC CATHETER/RECENT RECONSTRUCTION OF OF URETHRA : As per " NO Hydronephrosis in CT of the Abdomen and Pelvis due to urethral stricture /Bladder out let obstruction had Suprapubic catheter > 3 yrs had recent reconstruction surgery for urethra in [facility] on by Urology Dr Hernandez underwent : Single stage urethroplasty, ventral buccal mucosa graft substitution urethroplasty, harvest of buccal mucosa graft 6 cm x 2 cm , Cystoscopy pt had uneventful post op course Discharge home on 03/08/17 Had recent post surgery visit in [place] with Dr Hernandez on 04/02/17 : voiding cystourethrogram on 04/02/17 : Bladder filled normally with out intrinsic or extrinsic defect vesicoureteral reflux noted R> L . Rt vesicoureteral reflux opacifies the rt collecting system Patent Urethra during spontaneous voiding without evidence of leak. Madrigal Catheter was D/popeye and PLEASE DO NOT TRY TO REINSERT" Draining normally currently f/u with [facility] CHRONIC THROMBOCYTOPENIA : Platelet 62 on presentation DO NOT USE ANY PEPARIN/HEPARIN PRODUCTS Follows with Heme onc Dr Bowman [facility] avoid antiplatelets , anticoagulation ordered for daily CBC platelets 103 today HX OF PSORIATIC ARTHRITIS : was on Humira 20mg/0.4ml twice monthly on hold for severe sepsis HTN : Hold Lasix( was on 40 mg BID ) and ACEI -Lisinopril 5 mg daily Resuscitated for low BP will restart when Bp gets elevated restarted Lasix GERD: ordered PPI CODE STATUS : FULL CODE D/w PT DVT PROPHYLAXIS : pharmacological anticoagulation avoided - thrombocytopenia scd and teds DISPOSITION ; pt/ot Social service contused for discharge planning home with home health possibly on Saturday Pt follows with Dr Truong-[facility] follow up with [facility] Discussed with the Vital Signs: Date Time Temp Pulse Resp B/P (MAP) Pulse Ox O2 Delivery O2 Flow Rate FiO2 04/13/17 15:38 36.8 70 18 136/81 (99) 96 04/13/17 08:00 96 Room Air 2.0 04/13/17 07:55 36.9 74 18 139/73 (95) 96 Room Air 04/13/17 00:07 37.0 80 20 150/71 (97) 96 Room Air 04/13/17 00:00 Room Air Lab Results: Results Past 24 Hours Test 04/12/17 20:16 04/13/17 04:57 04/13/17 07:25 04/13/17 11:18 Range/Units Bedside Glucose 137 122 124 70-99 mg/dl White Blood Count 6.50 4.8-10.8 K/uL Red Blood Count 2.73 4.7-6.1 M/uL Hemoglobin 8.3 14.0-18.0 g/dL Hematocrit 25.6 42-52 % Mean Corpuscular Volume 93.8 80-100 fL Mean Corpuscular Hemoglobin 30.4 25-34 pg Mean Corpuscular Hemoglobin Concent 32.4 32-36 g/dl Platelet Count 103 130-400 K/uL Mean Platelet Volume 9.6 7.4-10.4 fL Neutrophils (%) (Auto) 73.3 % Lymphocytes (%) (Auto) 14.2 % Monocytes (%) (Auto) 9.7 % Eosinophils (%) (Auto) 2.3 % Basophils (%) (Auto) 0.2 % Neutrophils # (Auto) 4.77 1.4-6.5 K/uL Lymphocytes # (Auto) 0.92 1.2-3.4 K/uL Monocytes # (Auto) 0.63 0.11-0.59 K/uL Eosinophils # (Auto) 0.15 0-0.5 K/uL Basophils # (Auto) 0.01 0-0.2 K/uL RDW Standard Deviation 51.8 36.4-46.3 fL RDW Coefficient of Variation 15.3 11.5-14.5 % Immature Granulocyte % (Auto) 0.3 % Immature Granulocyte # (Auto) 0.02 0.00-0.02 K/uL Toxic Granulation 1+ Large Platelets 1+ Sodium Level 144 136-145 mmol/L Potassium Level 3.4 3.5-5.1 mmol/L Chloride Level 109 98-107 mmol/L Carbon Dioxide Level 29 21-32 mmol/L Anion Gap 6.0 3-11 mmol/L Blood Urea Nitrogen 23 7-18 mg/dl Creatinine 1.88 0.60-1.40 mg/dl Est Creatinine Clear Calc Drug Dose 56.7 ml/min Estimated GFR () 43.4 Estimated GFR (Non- 37.4 BUN/Creatinine Ratio 12.3 10-20 Random Glucose 120 70-99 mg/dl Calcium Level 8.1 8.5-10.1 mg/dl Magnesium Level 1.9 1.8-2.4 mg/dl Test 04/13/17 16:09 Range/Units Bedside Glucose 112 70-99 mg/dl
[2017-04-14] VITALS (15 sets, daily range): BP systolic 121–156; BP diastolic 69–86; PULSE 74–90; TEMP 36.7–37.4; O2SAT 94–97
[2017-04-14] MEDS: AMPICILLIN IV 2,000 MG in SODIUM CHLOR 0.9% AD-VAN 100ML 100 ML IV SCH ×6 (00:14→22:17)
[2017-04-14] MEDS: ACETAMINOPHEN 325 MG TAB PO PRN (00:30)
[2017-04-14 05:36] LABS: HEMATOCRIT 22.6 % (42-52); HEMOGLOBIN 7.6 g/dL (14.0-18.0); MEAN CELL VOLUME 92.6 fL (80-100); MEAN CORPUSCULAR HEMOGLOBIN 31.1 pg (25-34); MEAN CORPUSCULAR HGB CONC 33.6 g/dl (32-36); RED CELL DISTRIBUTION WIDTH CV 15.6 % (11.5-14.5); RED CELL DISTRIBUTION WIDTH SD 52.5 fL (36.4-46.3); WHITE BLOOD COUNT 5.69 K/uL (4.8-10.8)
[2017-04-14 05:39] LABS: MEAN PLATELET VOLUME 9.2 fL (7.4-10.4); PLATELET COUNT 91 K/uL (130-400)
[2017-04-14 05:59] LABS: CALCIUM 7.8 mg/dl (8.5-10.1); CREATININE 1.79 mg/dl (0.60-1.40); POTASSIUM 3.7 mmol/L (3.5-5.1)
[2017-04-14 06:36] LABS: BASO % 0.4 %; BASO ABS # 0.02 K/uL (0-0.2); EOS % 2.5 %; EOS ABS # 0.14 K/uL (0-0.5); IG# 0.02 K/uL (0.00-0.02); LYMPH % 16.9 %; LYMPH ABS # 0.96 K/uL (1.2-3.4); MONO % 8.4 %; MONO ABS # 0.48 K/uL (0.11-0.59); NEUT % 71.4 %; NEUT ABS # 4.07 K/uL (1.4-6.5)
[2017-04-14] MEDS: INSULIN GLARGINE SOLOSTAR 100 UNITS/ML 3 ML PEN SC SCH ×2 (09:00→20:52)
[2017-04-14] MEDS: FUROSEMIDE 40 MG TAB PO SCH (09:08)
[2017-04-14] MEDS: PANTOprazole SOD 40 MG TAB PO SCH (09:08)
[2017-04-14] MEDS: BACITRACIN OINT 15 GM TUBE EXT SCH ×2 (09:10→20:52)
[2017-04-14] MEDS: INSULIN ASPART 100 UNITS/ML 3 ML PEN SC SCH ×4 (09:12→20:52)
[2017-04-14] MEDS ORDERED: ACETAMINOPHEN 325 MG TAB PO SCH (14:45)
[2017-04-14] MEDS ORDERED: FUROSEMIDE INJ 40 MG in SYRINGE 0 ML IV SCH (14:45)
--- NOTE | 2017-04-14 18:08 | Progress Note ---
Internal Med Progress Note Date of Service: Apr 14, 2017. Provider Documentation: SUBJECTIVE: says leg swelling has coming down eating fine thinks there may be red streak in stools no nausea or abdominal pain no sob or chest pain OBJECTIVE: Vital Signs-as noted below Exam: General-alert and oriented. Not in distress ENT-normal hearing Neck-no neck masses Lungs-cta b/l no wheezing or crackles Heart-s1 and s2 heard regular rate and rhythm no murmurs Abdomen-soft bowel sounds present non tender no distension Extremities-lower extremity edema present no erythema Neuro-alert and awake moves extremities Lab data as noted below. ASSESSMENT & PLAN: SEVERE SEPSIS WITH SEPTIC SHOCK ::Gamma Hemolytic Strepto Bacteremia-Enterococci :::sensitive to Ampicillin Met criteria and was admitted ti ICU with elevated wbc lactic acid >4 and pro calcitonin >20 Source of infection -complicated UTI ( presence of chronic suprapubic catheter , recent urological procedure -Urethral reconstructive surgery on 03/06/17 ) Recent Voiding Cystourethrogram 04/02/17 : noted: vesicoureteral reflux noted R> L . Rt vesicoureteral reflux opacifies the rt collecting system CT abdomen /pelvis :As Above Initially was on ABx Zosyn and Vancomycin Blood and urine culture ordered -Gm Positive Streptococci-Enterococci seen by urology and ID and appreciate inputs ID recommends 14 days of iv ampicillin from negative cx-last day of abx on currently stable plan for home with home health possible on Saturday COLLIN /ATN : Baseline cr 1.2 on 03/08/2017 ; GFR > 60 Presents with Cr > 6 Possible due to severe sepsis /hypotension /on ACEI /Lasix Received NSAIDs and Bactrim AN op Nephrology consulted -appreciate input received bi carb today Cr 1.7 will f/u albs CHRONIC SUPRAPUBIC CATHETER/RECENT RECONSTRUCTION OF OF URETHRA : As per " NO Hydronephrosis in CT of the Abdomen and Pelvis due to urethral stricture /Bladder out let obstruction had Suprapubic catheter > 3 yrs had recent reconstruction surgery for urethra in [facility] on by Urology Dr Hernandez underwent : Single stage urethroplasty, ventral buccal mucosa graft substitution urethroplasty, harvest of buccal mucosa graft 6 cm x 2 cm , Cystoscopy pt had uneventful post op course Discharge home on 03/08/17 Had recent post surgery visit in [place] with Dr Hernandez on 04/02/17 : voiding cystourethrogram on 04/02/17 : Bladder filled normally with out intrinsic or extrinsic defect vesicoureteral reflux noted R> L . Rt vesicoureteral reflux opacifies the rt collecting system Patent Urethra during spontaneous voiding without evidence of leak. Madrigal Catheter was D/popeye and PLEASE DO NOT TRY TO REINSERT" Draining normally currently f/u with [facility] CHRONIC THROMBOCYTOPENIA : Platelet 62 on presentation DO NOT USE ANY PEPARIN/HEPARIN PRODUCTS Follows with Heme onc Dr Bowman [facility] avoid antiplatelets , anticoagulation ordered for daily CBC platelets 91 today Anemia from chronic disease? hb 7.6 today will follow stool for Hemoccult iron studies,vt b12 and folate levels will transfuse two units today HX OF PSORIATIC ARTHRITIS : was on Humira 20mg/0.4ml twice monthly on hold for severe sepsis HTN : Hold Lasix( was on 40 mg BID ) and ACEI -Lisinopril 5 mg daily Resuscitated for low BP will restart when Bp gets elevated restarted Lasix GERD: ordered PPI CODE STATUS : FULL CODE D/w PT DVT PROPHYLAXIS : pharmacological anticoagulation avoided - thrombocytopenia scd and teds DISPOSITION ; pt/ot Social service contused for discharge planning home with home health possibly on Saturday Pt follows with Dr Truong-[facility] follow up with [facility] Discussed with the Vital Signs: Date Time Temp Pulse Resp B/P (MAP) Pulse Ox O2 Delivery O2 Flow Rate FiO2 04/14/17 17:45 37.1 89 18 135/80 96 04/14/17 17:15 37.4 77 18 133/83 96 04/14/17 16:56 37.1 77 18 144/86 96 04/14/17 16:36 37.0 75 18 156/85 96 04/14/17 14:48 36.9 78 20 128/78 (95) 95 Room Air 04/14/17 08:00 Room Air 04/14/17 06:59 36.7 74 18 131/70 (90) 96 Room Air 04/14/17 00:39 36.7 81 20 149/75 (99) 94 Room Air 04/14/17 00:00 Room Air Lab Results: Results Past 24 Hours Test 04/13/17 20:12 04/14/17 05:03 04/14/17 07:35 04/14/17 11:31 Range/Units Bedside Glucose 100 101 102 70-99 mg/dl White Blood Count 5.69 4.8-10.8 K/uL Red Blood Count 2.44 4.7-6.1 M/uL Hemoglobin 7.6 14.0-18.0 g/dL Hematocrit 22.6 42-52 % Mean Corpuscular Volume 92.6 80-100 fL Mean Corpuscular Hemoglobin 31.1 25-34 pg Mean Corpuscular Hemoglobin Concent 33.6 32-36 g/dl Platelet Count 91 130-400 K/uL Mean Platelet Volume 9.2 7.4-10.4 fL Neutrophils (%) (Auto) 71.4 % Lymphocytes (%) (Auto) 16.9 % Monocytes (%) (Auto) 8.4 % Eosinophils (%) (Auto) 2.5 % Basophils (%) (Auto) 0.4 % Neutrophils # (Auto) 4.07 1.4-6.5 K/uL Lymphocytes # (Auto) 0.96 1.2-3.4 K/uL Monocytes # (Auto) 0.48 0.11-0.59 K/uL Eosinophils # (Auto) 0.14 0-0.5 K/uL Basophils # (Auto) 0.02 0-0.2 K/uL RDW Standard Deviation 52.5 36.4-46.3 fL RDW Coefficient of Variation 15.6 11.5-14.5 % Immature Granulocyte % (Auto) 0.4 % Immature Granulocyte # (Auto) 0.02 0.00-0.02 K/uL Toxic Granulation 1+ Poikilocytosis PRESENT Anisocytosis PRESENT Sodium Level 142 136-145 mmol/L Potassium Level 3.7 3.5-5.1 mmol/L Chloride Level 109 98-107 mmol/L Carbon Dioxide Level 27 21-32 mmol/L Anion Gap 6.0 3-11 mmol/L Blood Urea Nitrogen 22 7-18 mg/dl Creatinine 1.79 0.60-1.40 mg/dl Est Creatinine Clear Calc Drug Dose 59.5 ml/min Estimated GFR () 46.0 Estimated GFR (Non- 39.7 BUN/Creatinine Ratio 12.4 10-20 Random Glucose 96 70-99 mg/dl Calcium Level 7.8 8.5-10.1 mg/dl Magnesium Level 2.0 1.8-2.4 mg/dl Test 04/14/17 14:49 04/14/17 16:32 Range/Units Iron Level 27 35-175 mcg/dl Total Iron Binding Capacity 200 250-450 mcg/dl Transferrin 163 200-360 mg/dl Transferrin % Saturation 12 20-50 % Ferritin 142.6 8.0-388.0 ng/ml Bedside Glucose 113 70-99 mg/dl
[2017-04-14] MEDS ORDERED: PANTOprazole SOD 40 MG TAB PO ONE (23:01)
[2017-04-15] MEDS: AMPICILLIN IV 2,000 MG in SODIUM CHLOR 0.9% AD-VAN 100ML 100 ML IV SCH ×5 (00:22→15:32)
[2017-04-15] MEDS ORDERED: COUGH DROP (SUGAR FREE) LOZ 24 LOZ/1 BOX LOZ ONE (05:24)
[2017-04-15 06:16] LABS: BASO % 0.5 %; BASO ABS # 0.03 K/uL (0-0.2); EOS % 2.4 %; EOS ABS # 0.14 K/uL (0-0.5); HEMATOCRIT 27.7 % (42-52); HEMOGLOBIN 9.3 g/dL (14.0-18.0); IG# 0.01 K/uL (0.00-0.02); LYMPH % 17.9 %; LYMPH ABS # 1.05 K/uL (1.2-3.4); MEAN CELL VOLUME 91.4 fL (80-100); MEAN CORPUSCULAR HEMOGLOBIN 30.7 pg (25-34); MEAN CORPUSCULAR HGB CONC 33.6 g/dl (32-36); MEAN PLATELET VOLUME 9.8 fL (7.4-10.4); MONO % 8.9 %; MONO ABS # 0.52 K/uL (0.11-0.59); NEUT % 70.1 %; NEUT ABS # 4.12 K/uL (1.4-6.5); PLATELET COUNT 112 K/uL (130-400); RED CELL DISTRIBUTION WIDTH CV 15.4 % (11.5-14.5); RED CELL DISTRIBUTION WIDTH SD 50.3 fL (36.4-46.3); WHITE BLOOD COUNT 5.87 K/uL (4.8-10.8)
[2017-04-15] MEDS: INSULIN ASPART 100 UNITS/ML 3 ML PEN SC SCH ×2 (06:30→12:00)
[2017-04-15 06:49] LABS: CREATININE 1.91 mg/dl (0.60-1.40); POTASSIUM 3.4 mmol/L (3.5-5.1)
[2017-04-15 06:58] VITALS: BP 124/73; PULSE 79; TEMP 36.8; O2SAT 92
[2017-04-15] MEDS ORDERED: POTASSIUM CHLORIDE 20 MEQ TABCR PO STA (07:25)
[2017-04-15] MEDS: PANTOprazole SOD 40 MG TAB PO SCH (07:48)
[2017-04-15] MEDS: FUROSEMIDE 40 MG TAB PO SCH (07:49)
[2017-04-15] MEDS: BACITRACIN OINT 15 GM TUBE EXT SCH (07:58)
[2017-04-15] MEDS: INSULIN GLARGINE SOLOSTAR 100 UNITS/ML 3 ML PEN SC SCH (09:00)
[2017-04-15] MEDS ORDERED: PANTOprazole SOD 40 MG TAB PO SCH (09:00)
--- NOTE | 2017-04-15 09:19 | Gastrointestinal Consultation ---
Gastrointestinal Consultation Date of Consultation: Apr 15, 2017 Attending Physician: Dr. Mera Consulting Physician: Dr. Hyatt Reason for Consultation: Anemia, Hem positive stool . History of Present Illness Patient is a 61 year old male patient of Norris Truong PA-C with a hx of urethral stricture who underwent urethral reconstruction in [place] in 03/07/17 and was admitted here on 04/04/17 with severe UTI sepsis. GI is consulted for anemia, hem positive stool. The pt tells me that he has a hx of NAFLD cirrhosis dx'ed 6-7 yrs ago, was initially managed by Ch[facility] Page and more recently managed by gastro at [facility] ( [facility]) with Dr. Coyle in [place] doing endoscopy. The pt tells me that he never had jaundice, ascites, hepatic encephalopathy or esophageal varices. He does have lower leg edema on furosemide. His most recent EGD and colonoscopy were approx 2 yrs ago. He has been undergoing surveillance imaging of the liver, most recently an MRI through [facility] in [place]. CT was also completed here on arrival w/o IV contrast with cirrhosis, no focal lesion. Recently, his T Bili is 1.2, Na 140, INR 1.3, Cr 1.9. MELD score today is 17, but will likely improve as his renal status improves with tx of the UTI sepsis. The pt tells me that he was previously evaluated for liver transplant at [facility] and told not a candidate due to low MELD score. Regarding his anemia, 12.9 prior to the urethral surgery and 10.0 after surgery. He was admitted with a Hb 10.3 with normalcytic indices. On arrival, Hb was 10.3. During the hospitalization, it decreased to 7.9. He was given 2 units of blood and Hb is now 9.3. He has not had any gross GI bleeding, though he did has a small amt of blood in his urine on a few occasions after surgery. Past Medical/Surgical History Medical Problems: (1) Acute renal failure Status: Acute (2) Complication of catheter Status: Acute (3) Cystitis Status: Acute (4) Elevated troponin Status: Acute (5) Hypomagnesemia Status: Acute (6) Hypotension Status: Acute (7) Pyelonephritis Status: Acute (8) Renal failure Status: Acute (9) Renal insufficiency Status: Acute (10) Sepsis due to urinary tract infection Status: Acute (11) Septic shock Status: Acute Past Medical History: 1. 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 2. NAFLD cirrhosis . 3. Obesity 4. HTN 5. Psoriatic arthritis, on Humira Past Surgical History: 1. Previous meatotomy 2. Recent urethral reconstruction: buccal mucosa graft substitution urethroplasty by Dr. Margarito Hernandez on 03/06/17. 3. Distant lap cholecystectomy 4. Distant appendectomy 5. Bilat orthoscopic shoulder surgeries 6. Bilat Luna's neuroma excisions from both feet. 7. Injections for cervical and lumbar spinal stenosis by Dr. Blunt. 6. Bilat cataract surgeries, both eyes. 7. EGD, Colonoscopy about 2 yrs ago. Family History Cancer Diabetes mellitus Heart disease Hypertension Kidney disease Kidney stones Lung disease Social History Smoking Status: Never Smoker Alcohol Use: occasionally Drug Use: none Marital Status: Housing Status: lives with significant other Occupation Status: unemployed Allergies Coded Allergies: Tamsulosin (Verified Allergy, Mild, HIVES, 04/04/17) Current Medications Home Meds and Scripts Medications Dose Route/Sig Max Daily Dose Days Date Category Micro-K Ext Rel (Potassium Chloride) 10 Meq Capcr 10 Meq PO HS 03/17/17 Reported Lasix (Furosemide) 40 Mg Tab 40 Mg PO QAM 03/17/17 Reported Prinivil (Lisinopril) 5 Mg Tab 5 Mg PO QAM 03/17/17 Reported Mobic (Meloxicam) 15 Mg Tab 15 Mg PO DAILY 03/17/17 Reported Prilosec (Omeprazole) 20 Mg Capcr 20 Mg PO QAM 03/17/17 Reported Humira (Adalimumab) 20 Mg/0.4 Ml Kit 20 Mg INJ TWICE MONTHLY 03/17/17 Reported Periogard (Chlorhexidine Gluconate (Mouth) 0.12 % Salud 15 Ml PO Q4 03/17/17 Reported Bactrim Ds 800MG/160MG (Trimethoprim/Sulfamethoxazole) Tab 1 Tab PO QAM 03/17/17 Reported Senokot S (Senna/Docusate Sodium) 1 Tab Tab 1 Tab PO DAILY PRN 03/17/17 Reported Iron (Ferrous Sulfate) 325 Mg Tab 1 Tab PO QAM 07/26/16 Reported Review of Systems Constitutional: + fever, + chills, + weakness Eyes: No eye pain, No redness ENT: No hearing loss Respiratory: No cough Cardiac: No chest pain Abdomen: + see HPI, + diarrhea, No pain, No nausea, No vomiting, No constipation, No GI bleeding Male : + see HPI (negron cath), No dysuria Neuro: No memory loss Psych: No depression symptoms Heme: No abnormal bleeding/bruising Endo: + fatigue Skin: + rash (mild psoriasis, sides of abdomen, elbows, lower legs), No jaundice Physical Exam Date Time Temp Pulse Resp B/P (MAP) Pulse Ox O2 Delivery O2 Flow Rate FiO2 04/15/17 06:58 36.8 79 18 124/73 (90) 92 Room Air 04/15/17 00:00 Room Air 04/14/17 22:09 36.8 75 18 125/74 95 04/14/17 21:15 36.8 83 18 124/74 97 04/14/17 20:45 36.9 82 18 134/72 97 04/14/17 20:15 36.8 78 18 124/69 96 04/14/17 19:45 36.9 79 18 122/71 96 04/14/17 19:31 37.0 76 16 129/77 95 04/14/17 19:10 37.0 88 18 121/78 95 04/14/17 18:23 37.1 90 18 126/81 95 04/14/17 17:45 37.1 89 18 135/80 96 04/14/17 17:15 37.4 77 18 133/83 96 04/14/17 16:56 37.1 77 18 144/86 96 04/14/17 16:36 37.0 75 18 156/85 96 04/14/17 16:00 Room Air 04/14/17 14:48 36.9 78 20 128/78 (95) 95 Room Air General Appearance: no apparent distress, + obese Eyes: normal inspection, EOMI Neck: supple, no adenopathy, thyroid normal, no JVD Respiratory/Chest: chest non-tender, lungs clear, normal breath sounds, no accessory muscle use Cardiovascular: regular rate, rhythm, no JVD, no murmur Abdomen: normal bowel sounds, non tender, soft, no organomegaly Extremities: normal capillary refill, + pedal edema (1+ bilat lower leg) Neurologic/Psych: alert, normal mood/affect, oriented x 3 Skin: normal color, no jaundice, warm/dry, + pertinent finding (psoriasis on both lower legs) Laboratory Results Last 24 Hours Test 04/14/17 11:31 04/14/17 14:49 04/14/17 16:32 04/14/17 18:00 Bedside Glucose 102 mg/dl 113 mg/dl Iron Level 27 mcg/dl Total Iron Binding Capacity 200 mcg/dl Transferrin 163 mg/dl Transferrin % Saturation 12 % Ferritin 142.6 ng/ml Stool Occult Blood POSITIVE Test 04/14/17 19:54 04/15/17 05:53 04/15/17 07:27 Bedside Glucose 115 mg/dl 100 mg/dl White Blood Count 5.87 K/uL Red Blood Count 3.03 M/uL Hemoglobin 9.3 g/dL Hematocrit 27.7 % Mean Corpuscular Volume 91.4 fL Mean Corpuscular Hemoglobin 30.7 pg Mean Corpuscular Hemoglobin Concent 33.6 g/dl Platelet Count 112 K/uL Mean Platelet Volume 9.8 fL Neutrophils (%) (Auto) 70.1 % Lymphocytes (%) (Auto) 17.9 % Monocytes (%) (Auto) 8.9 % Eosinophils (%) (Auto) 2.4 % Basophils (%) (Auto) 0.5 % Neutrophils # (Auto) 4.12 K/uL Lymphocytes # (Auto) 1.05 K/uL Monocytes # (Auto) 0.52 K/uL Eosinophils # (Auto) 0.14 K/uL Basophils # (Auto) 0.03 K/uL RDW Standard Deviation 50.3 fL RDW Coefficient of Variation 15.4 % Immature Granulocyte % (Auto) 0.2 % Immature Granulocyte # (Auto) 0.01 K/uL Sodium Level 140 mmol/L Potassium Level 3.4 mmol/L Chloride Level 104 mmol/L Carbon Dioxide Level 29 mmol/L Anion Gap 7.0 mmol/L Blood Urea Nitrogen 21 mg/dl Creatinine 1.91 mg/dl Est Creatinine Clear Calc Drug Dose 55.8 ml/min Estimated GFR () 42.6 Estimated GFR (Non- 36.7 BUN/Creatinine Ratio 11.0 Random Glucose 93 mg/dl Calcium Level 8.0 mg/dl Magnesium Level 1.9 mg/dl Vitamin B12 Level > 2000 pg/mL Folate 12.69 ng/mL Impression Patient is a 61 year old male with anemia, occult positive stool with a hx of cirrhosis. He does not have any gross GI bleeding and has had fairly recent EGD , colonoscopy. His chronic anemia is consistent with that expected with NAFLD cirrhosis. Plan 1. Pt would like to change to [facility]. We will provide an OP office visit for f/u anemia and NAFLD cirrhosis. 2. No endoscopy planned during this admission. 3. Would avoid all NSAIDs. 4. Pt maintains a <2gram sodium diet; would continue this here in the hospital and again on discharge. 5. Would maintain pts OP furosemide dose on discharge if not contraindicated with UTI/acute renal failure. I performed a history and physical examination of the patient. I have discussed the patient's case, impression and plan with BRENDA Dowell. Her note reflects my findings and plan. No signs of bleeding that would require endoscopy at this point. Will obtain old records from prior care to determine out patient work up needs. Jeffery Hyatt MD
[2017-04-15] MEDS: ACETAMINOPHEN 325 MG TAB PO PRN (11:07)
[2017-04-15] MEDS ORDERED: DOCUSATE SODIUM/SENNA 50/8.6MG TAB PO PRN (11:15)
[2017-04-15] MEDS ORDERED: LCTX PO (12:29)
[2017-04-15] MEDS ORDERED: AMPICILLIN ×2 (12:29→12:40)
--- NOTE | 2017-04-15 12:33 | Discharge Instructions ---
Discharge Instructions Date of Service Apr 15, 2017. Admission Reason for Admission: Sepsis Discharge Discharge Diagnosis / Problem: sepsis, bacteremia, giuseppe Discharge Goals Goal(s): Decrease discomfort, Improve function Activity Recommendations Activity Limitations: resume your previous activity . Instructions / Follow-Up Instructions / Follow-Up FOLLOWUP WITH FAMILY DOCTOR IN ONE WEEK FOLLOWUP WITH UROLOGY AT [facility] POSSIBLE FOLLOWUP WITH TAHMINA FULLER IN 2-3 WEEKS. LAB: CBC AND BMP IN ONE WEEK AND FOLLOW RESULTS WITH FAMILY DOCTOR FOR ANEMIA AND KIDNEY FUNCTION. PREDIABETES- DIABETIC DIET AND FOLLOW UP WITH FAMILY DOCTOR. IV ANTIBIOTIC UNTIL Mar . FOLLOW UP BLOOD CULTURES WITH FAMILY DOCTOR. HOLD LASIX TOMORROW AND RESUME HOME DOSE FROM Mar. FURTHER ADJUSTMENT OF LASIX BASED ON LABS PER FAMILY DOCTOR. RESTART OF LISINOPRIL PER FAMILY DOCTOR BASED ON REPEAT LABS FOR RENAL FUNCTION. NO MELOXICAM , MORTIN, ALEVE OR IBUPROFEN THEY CAN CAUSE GI BLEED AND RENAL FAILURE. Current Hospital Diet Patient's current hospital diet: Renal Diet, AHA Diet (Heart Healthy) Discharge Diet Recommended Diet: AHA Diet (Heart Healthy), Diabetes Type 2 Diet Pending Studies Studies pending at discharge: no Laboratory Results Hemoglobin A1c Test 04/05/17 03:56 Range/Units Estimated Average Glucose 120 mg/dl Hemoglobin A1c 5.8 H 4.5-5.6 % Medical Emergencies . Who to Call and When: Medical Emergencies: If at any time you feel your situation is an emergency, please call 911 immediately. . Non-Emergent Contact Non-Emergency issues call your: Primary Care Provider . . "Provider Documentation" section prepared by Alec Mera. . VTE Core Measure Inpt VTE Proph given/why not?: Carol Spicer, SCD's
[2017-04-15 14:36] VITALS: BP 124/73; PULSE 79; TEMP 36.8; O2SAT 92
[2017-04-15 16:00] VITALS: BP 99/64; PULSE 95; TEMP 36.6; O2SAT 92; O2SAT 93
--- NOTE | 2017-04-15 18:30 | Progress Note ---
Internal Med Progress Note Date of Service: Apr 15, 2017. Provider Documentation: SUBJECTIVE: says leg swelling is coming down eating fine denies any blood in stool or black stools afebrile no sob or chest pain ok to go home today OBJECTIVE: Vital Signs-as noted below Exam: General-alert and oriented. Not in distress ENT-normal hearing Neck-no neck masses Lungs-cta b/l no wheezing or crackles Heart-s1 and s2 heard regular rate and rhythm no murmurs Abdomen-soft bowel sounds present non tender no distension Extremities-lower extremity edema present no erythema Neuro-alert and awake moves extremities Lab data as noted below. ASSESSMENT & PLAN: SEVERE SEPSIS WITH SEPTIC SHOCK ::Gamma Hemolytic Strepto Bacteremia-Enterococci :::sensitive to Ampicillin Met criteria and was admitted ti ICU with elevated wbc lactic acid >4 and pro calcitonin >20 Source of infection -complicated UTI ( presence of chronic suprapubic catheter , recent urological procedure -Urethral reconstructive surgery on 03/06/17 ) Recent Voiding Cystourethrogram 04/02/17 : noted: vesicoureteral reflux noted R> L . Rt vesicoureteral reflux opacifies the rt collecting system CT abdomen /pelvis :As Above Initially was on ABx Zosyn and Vancomycin Blood and urine culture ordered -Gm Positive Streptococci-Enterococci seen by urology and ID and appreciate inputs ID recommends 14 days of iv ampicillin from negative cx-last day of abx on currently stable plan for home with home health today COLLIN /ATN : Baseline cr 1.2 on 03/08/2017 ; GFR > 60 Presents with Cr > 6 Possible due to severe sepsis /hypotension /on ACEI /Lasix Received NSAIDs and Bactrim AN op Nephrology consulted -appreciate input received bi carb today Cr 1.9 holding lisinopril on discharge. to continue home lasix secondary to lower extremity edema f/u labs with pcp and based on labs to consider restarting lisinopril and or adjusting Lasix dose. CHRONIC SUPRAPUBIC CATHETER/RECENT RECONSTRUCTION OF OF URETHRA : As per " NO Hydronephrosis in CT of the Abdomen and Pelvis due to urethral stricture /Bladder out let obstruction had Suprapubic catheter > 3 yrs had recent reconstruction surgery for urethra in [facility] on by Urology Dr Hernandez underwent : Single stage urethroplasty, ventral buccal mucosa graft substitution urethroplasty, harvest of buccal mucosa graft 6 cm x 2 cm , Cystoscopy pt had uneventful post op course Discharge home on 03/08/17 Had recent post surgery visit in [place] with Dr Hernandez on 04/02/17 : voiding cystourethrogram on 04/02/17 : Bladder filled normally with out intrinsic or extrinsic defect vesicoureteral reflux noted R> L . Rt vesicoureteral reflux opacifies the rt collecting system Patent Urethra during spontaneous voiding without evidence of leak. Madrigal Catheter was D/popeye and PLEASE DO NOT TRY TO REINSERT" Draining normally currently f/u with [place] [facility] as soon as possible CHRONIC THROMBOCYTOPENIA : Platelet 62 on presentation DO NOT USE ANY PEPARIN/HEPARIN PRODUCTS Follows with Heme onc Dr Bowman [facility] avoid antiplatelets , anticoagulation ordered for daily CBC platelets 112 today Anemia from chronic disease? hb 7.6 04/14 17 will follow stool for Hemoccult iron studies,vt b12 and folate levels transfused two units hb 9.3 today consulted GI- as no active bleeding and has recent egd plan to f/u as out patinet f/u labs with pcp continue iron pill HX OF PSORIATIC ARTHRITIS : was on Humira 20mg/0.4ml twice monthly on hold for severe sepsis f/u with rheumatology HTN : Hold Lasix( was on 40 mg daily ) and ACEI -Lisinopril 5 mg daily Resuscitated for low BP will restart when Bp gets elevated restarted Lasix 40mg daily GERD: ordered PPI discharged home with home health Vital Signs: Date Time Temp Pulse Resp B/P (MAP) Pulse Ox O2 Delivery O2 Flow Rate FiO2 04/15/17 16:00 36.6 95 20 99/64 (76) 93 04/15/17 16:00 92 Room Air 04/15/17 14:36 36.8 79 18 92 Room Air 04/15/17 08:00 Room Air 04/15/17 06:58 36.8 79 18 124/73 (90) 92 Room Air 04/15/17 00:00 Room Air 04/14/17 22:09 36.8 75 18 125/74 95 04/14/17 21:15 36.8 83 18 124/74 97 04/14/17 20:45 36.9 82 18 134/72 97 04/14/17 20:15 36.8 78 18 124/69 96 04/14/17 19:45 36.9 79 18 122/71 96 04/14/17 19:31 37.0 76 16 129/77 95 04/14/17 19:10 37.0 88 18 121/78 95 Lab Results: Results Past 24 Hours Test 04/14/17 19:54 04/15/17 05:53 04/15/17 07:27 04/15/17 11:23 Range/Units Bedside Glucose 115 100 110 70-99 mg/dl White Blood Count 5.87 4.8-10.8 K/uL Red Blood Count 3.03 4.7-6.1 M/uL Hemoglobin 9.3 14.0-18.0 g/dL Hematocrit 27.7 42-52 % Mean Corpuscular Volume 91.4 80-100 fL Mean Corpuscular Hemoglobin 30.7 25-34 pg Mean Corpuscular Hemoglobin Concent 33.6 32-36 g/dl Platelet Count 112 130-400 K/uL Mean Platelet Volume 9.8 7.4-10.4 fL Neutrophils (%) (Auto) 70.1 % Lymphocytes (%) (Auto) 17.9 % Monocytes (%) (Auto) 8.9 % Eosinophils (%) (Auto) 2.4 % Basophils (%) (Auto) 0.5 % Neutrophils # (Auto) 4.12 1.4-6.5 K/uL Lymphocytes # (Auto) 1.05 1.2-3.4 K/uL Monocytes # (Auto) 0.52 0.11-0.59 K/uL Eosinophils # (Auto) 0.14 0-0.5 K/uL Basophils # (Auto) 0.03 0-0.2 K/uL RDW Standard Deviation 50.3 36.4-46.3 fL RDW Coefficient of Variation 15.4 11.5-14.5 % Immature Granulocyte % (Auto) 0.2 % Immature Granulocyte # (Auto) 0.01 0.00-0.02 K/uL Sodium Level 140 136-145 mmol/L Potassium Level 3.4 3.5-5.1 mmol/L Chloride Level 104 98-107 mmol/L Carbon Dioxide Level 29 21-32 mmol/L Anion Gap 7.0 3-11 mmol/L Blood Urea Nitrogen 21 7-18 mg/dl Creatinine 1.91 0.60-1.40 mg/dl Est Creatinine Clear Calc Drug Dose 55.8 ml/min Estimated GFR () 42.6 Estimated GFR (Non- 36.7 BUN/Creatinine Ratio 11.0 10-20 Random Glucose 93 70-99 mg/dl Calcium Level 8.0 8.5-10.1 mg/dl Magnesium Level 1.9 1.8-2.4 mg/dl Vitamin B12 Level > 1999 211-911 pg/mL Folate 12.69 >5.38 ng/mL Test 04/15/17 16:48 Range/Units Bedside Glucose 87 70-99 mg/dl
--- NOTE | 2017-04-15 18:57 | Discharge Summary ---
Discharge Summary Date of Service Apr 15, 2017. Discharge Summary Admission Date: Apr 04, 2017 at 19:09 Discharge Date: Apr 15, 2017 Discharge Disposition: Home with services Principal Diagnosis: SEVERE SEPSIS WITH SEPTIC SHOCK BACTEREMIA WITH ENTEROCOCCUS GIUSEPPE ANEMIA Secondary Diagnoses/Problems: hematuria psoriasis hyperlipidemia post traumatic anterior urethral stricture Procedures: ct abd/pelvis: 1. A suprapubic bladder catheter is in place. The bladder wall is thickened and there is significant pericystic inflammatory stranding. Correlate clinically and with urinalysis for evidence of cystitis. 2. There is mild fullness of the renal collecting system bilaterally without hydronephrosis. Bilateral perinephric stranding is nonspecific. Correlate clinically and with urinalysis for evidence of pyelonephritis. 3. The appearance of the liver suggests cirrhosis. 4. The spleen is enlarged. 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 5. Trace pleural effusions. cxr: 1. Cardiomegaly with persistent volume overload. No santino pulmonary edema. 2. Trace bilateral pleural effusions suspected. 3. No focal infiltrate to suggest pneumonia. ECHO: * Ejection Fraction = 55-60%. * There is mild concentric left ventricular hypertrophy. * Regional wall motion abnormalities cannot be excluded due to limited visualization. * RV enlargement noted in limited apical views with IV contrast. * The right ventricular systolic function is qualitatively normal. * There is trace tricuspid regurgitation. * Normal inferior vena cava diameter and respiratory variation suggests normal central venous pressure. * Dilated coronary sinus. Consultations: CRITICAL [facility] ID NEPHROLOGY UROLOGY GI Medication Reconciliation New Medications: Lactobacillus Acidophilus (Lactinex) Tab 2 TAB PO BID for 10 Days, TAB [ampicillin iv] () 2 GM IV Q4 for 7 Days Continued Medications: Adalimumab (Humira) 20 Mg/0.4 Ml Kit 20 MG INJ twice monthly Chlorhexidine Gluconate (Mouth (Periogard) 0.12 % Salud 15 ML PO Q4 Ferrous Sulfate (Iron) 325 Mg Tab 1 TAB PO QAM Furosemide (Lasix) 40 Mg Tab 40 MG PO QAM Omeprazole (Prilosec) 20 Mg Capcr 20 MG PO QAM Potassium Chloride (Micro-K Ext Rel) 10 Meq Capcr 10 MEQ PO HS Senna/Docusate Sod (Senokot S) 1 Tab Tab 1 TAB PO DAILY PRN for Constipation Discontinued Medications: Lisinopril (Prinivil) 5 Mg Tab 5 MG PO QAM Meloxicam (Mobic) 15 Mg Tab 15 MG PO DAILY Sulfa/Trimethoprim (Bactrim Ds 800MG/160MG) Tab 1 TAB PO QAM Admission Information HPI (per Admitting provider): This is 61 yo M with 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 -had previous meatotomy with no success,had suprapubic catheter placement ~3 yrs pt recently underwent Urethral reconstruction surgery on 03/07/17 at [facility] by Urology Dr Hernandez pt was discharge after 24 hr hospital stay with Madrigal Catheter and his chronic suprapubic catheter had uneventful post op course , last post surgical visit at [facility] on 04/02/17 - voiding cystourethrogram shows spontaneous voiding through patent urethra with out any leakage Madrigal was d/popeye pt was schedule for next follow up visit at [facility] on 04/05/17 for removal of suprapubic catheter past 2 days , pt was not feeling well , developed chills/rigor /fever -recorded 104 at home, associated with headache felt discomfort in lower abdomen , suprapubic catheter site Catheter has been draining urine no hematuria or clot noted pt reports of generalized weakness, poor appetite, refused to come to ER Today he felt worse , unable to walk as his legs are giving away- , very dizzy and lightheaded, Nausea /abdominal discomfort significant SHAW, continued to spike temp and Daughter contacted [facility] , due to his concerning symptom and recent urology procedure -Pt was asked to come to [place] [facility] pt and family refused to go to [place] due to distance and lack of transport ( pt does not want ambulance transport ) was advised to go to nearest ER at [facility] on arrival : pt was found have fever > 38/hypotensive /Tachycardic , Lactic acid > 4 , WBC 16 K . GIUSEPPE with Cr > 6 significant elevation form baseline UA grossly positive for occult blood + 3 /large Leukocyte esterase , + bacteria/ Yeast Physical Exam (per Admitting): General Appearance: + moderate distress (diaphoretic /short of breath ) Head: normocephalic, atraumatic Eyes: normal inspection, sclerae normal Neck: no JVD, no carotid bruits, trachea midline Respiratory/Chest: chest non-tender, + decreased breath sounds Cardiovascular: no JVD, + bradycardia Abdomen/GI: + abnormal bowel sounds (diminished ), + pertinent finding ( suprapubic tenderness /suprapubic catheter present ) Extremities/Musculoskelatal: no pedal edema Neurologic/Psych: alert, oriented x 3 Hospital Course SEVERE SEPSIS WITH SEPTIC SHOCK ::Gamma Hemolytic Strepto Bacteremia-Enterococci :::sensitive to Ampicillin Met criteria and was admitted ti ICU with elevated wbc lactic acid >4 and pro calcitonin >20 Source of infection -complicated UTI ( presence of chronic suprapubic catheter , recent urological procedure -Urethral reconstructive surgery on 03/06/17 ) Recent Voiding Cystourethrogram 04/02/17 : noted: vesicoureteral reflux noted R> L . Rt vesicoureteral reflux opacifies the rt collecting system CT abdomen /pelvis :As Above Initially was on ABx Zosyn and Vancomycin Blood and urine culture ordered -Gm Positive Streptococci-Enterococci seen by urology and ID and appreciate inputs ID recommends 14 days of iv ampicillin from negative cx-last day of abx on currently stable plan for home with home health today GIUSEPPE /ATN : Baseline cr 1.2 on 03/08/2017 ; GFR > 60 Presents with Cr > 6 Possible due to severe sepsis /hypotension /on ACEI /Lasix Received NSAIDs and Bactrim AN op Nephrology consulted -appreciate input received bi carb today Cr 1.9 holding lisinopril on discharge. to continue home lasix secondary to lower extremity edema f/u labs with pcp and based on labs to consider restarting lisinopril and or adjusting Lasix dose. CHRONIC SUPRAPUBIC CATHETER/RECENT RECONSTRUCTION OF OF URETHRA : As per " NO Hydronephrosis in CT of the Abdomen and Pelvis due to urethral stricture /Bladder out let obstruction had Suprapubic catheter > 3 yrs had recent reconstruction surgery for urethra in [facility] on by Urology Dr Hernandez underwent : Single stage urethroplasty, ventral buccal mucosa graft substitution urethroplasty, harvest of buccal mucosa graft 6 cm x 2 cm , Cystoscopy pt had uneventful post op course Discharge home on 03/08/17 Had recent post surgery visit in [place] with Dr Hernandez on 04/02/17 : voiding cystourethrogram on 04/02/17 : Bladder filled normally with out intrinsic or extrinsic defect vesicoureteral reflux noted R> L . Rt vesicoureteral reflux opacifies the rt collecting system Patent Urethra during spontaneous voiding without evidence of leak. Madrigal Catheter was D/popeye and PLEASE DO NOT TRY TO REINSERT" Draining normally currently f/u with [facility] as soon as possible CHRONIC THROMBOCYTOPENIA : Platelet 62 on presentation DO NOT USE ANY PEPARIN/HEPARIN PRODUCTS Follows with Heme onc Dr Bowman [facility] avoid antiplatelets , anticoagulation ordered for daily CBC platelets 112 today Anemia from chronic disease? hb 7.6 04/14 18 will follow stool for Hemoccult iron studies,vt b12 and folate levels transfused two units hb 9.3 today consulted GI- as no active bleeding and has recent egd plan to f/u as out patinet f/u labs with pcp continue iron pill HX OF PSORIATIC ARTHRITIS : was on Humira 20mg/0.4ml twice monthly on hold for severe sepsis f/u with rheumatology HTN : Hold Lasix( was on 40 mg daily ) and ACEI -Lisinopril 5 mg daily Resuscitated for low BP will restart when Bp gets elevated restarted Lasix 40mg daily GERD: ordered PPI discharged home with home health Total time spent on discharge = 40MINUTES This includes examination of the patient, discharge planning, medication reconciliation, and communication with other providers. Discharge Instructions Discharge Instructions Date of Service Apr 15, 2017. Admission Reason for Admission: Sepsis Discharge Discharge Diagnosis / Problem: sepsis, bacteremia, giuseppe Discharge Goals Goal(s): Decrease discomfort, Improve function Activity Recommendations Activity Limitations: resume your previous activity . Instructions / Follow-Up Instructions / Follow-Up FOLLOWUP WITH FAMILY DOCTOR IN ONE WEEK FOLLOWUP WITH UROLOGY AT [facility] SOON POSSIBLE FOLLOWUP WITH [facility] IN 2-3 WEEKS. LAB: CBC AND BMP IN ONE WEEK AND FOLLOW RESULTS WITH FAMILY DOCTOR FOR ANEMIA AND KIDNEY FUNCTION. PREDIABETES- DIABETIC DIET AND FOLLOW UP WITH FAMILY DOCTOR. IV ANTIBIOTIC UNTIL Mar . FOLLOW UP BLOOD CULTURES WITH FAMILY DOCTOR. HOLD LASIX TOMORROW AND RESUME HOME DOSE FROM Mar. FURTHER ADJUSTMENT OF LASIX BASED ON LABS PER FAMILY DOCTOR. RESTART OF LISINOPRIL PER FAMILY DOCTOR BASED ON REPEAT LABS FOR RENAL FUNCTION. NO MELOXICAM , MORTIN, ALEVE OR IBUPROFEN THEY CAN CAUSE GI BLEED AND RENAL FAILURE. Current Hospital Diet Patient's current hospital diet: Renal Diet, AHA Diet (Heart Healthy) Discharge Diet Recommended Diet: AHA Diet (Heart Healthy), Diabetes Type 2 Diet Pending Studies Studies pending at discharge: no Laboratory Results Hemoglobin A1c Test 04/05/17 03:56 Range/Units Estimated Average Glucose 120 mg/dl Hemoglobin A1c 5.8 H 4.5-5.6 % Medical Emergencies . Who to Call and When: Medical Emergencies: If at any time you feel your situation is an emergency, please call 911 immediately. . Non-Emergent Contact Non-Emergency issues call your: Primary Care Provider . . "Provider Documentation" section prepared by Alec Mera. . VTE Core Measure Inpt VTE Proph given/why not?: Carol Spicer, SCD's
[2017-04-15] MEDS ORDERED: POTASSIUM CHLORIDE 10 MEQ TABCR PO SCH (21:00)
[2017-04-16] MEDS ORDERED: FERROUS SULFATE 325 MG TAB PO SCH (09:00)
== END 2017-04-15 17:28 | disposition home health service (06) | DRG 871 ==
LOC: C.EDB 15:56 → C.MSICU 19:09 → ENRESERV 19:20 → C.MS2W 04-10 15:40
PROVIDERS: ADMIT Hospitalist; ATTEND Internal Medicine
PROC: 06HM33Z Insertion of Infusion Device into Right Femoral Vein, Percutaneous Approach (ICD-10-PCS; principal; 2017-04-04)
DX: A41.81 Sepsis due to Enterococcus (principal); R65.21 Severe sepsis with septic shock; N17.0 Acute kidney failure with tubular necrosis; N12 Tubulo-interstitial nephritis, not specified as acute or chronic; N30.90 Cystitis, unspecified without hematuria; D69.6 Thrombocytopenia, unspecified; I10 Essential (primary) hypertension; K21.9 Gastro-esophageal reflux disease without esophagitis; D63.8 Anemia in other chronic diseases classified elsewhere; R19.7 Diarrhea, unspecified; Z79.899 Other long term (current) drug therapy; Z98.890 Other specified postprocedural states; Z88.8 Allergy status to other drugs, medicaments and biological substances

== ENCOUNTER 2017-08-28 21:06 | Inpatient (IN) | payer OTHER ==
[~2017-08-28] VITALS: Ht 172.7 cm; Wt 134.7 kg
[~2017-08-28 21:06] MED LIST changes: -ADAL20KI INJ; +AMPICILLIN; -LISI-729 PO; -MELO-84 PO; -PRLSR20 PO; -SULF800T23 PO
--- NOTE | 2017-08-28 22:03 | EMERGENCY ROOM VISIT NOTE ---
History Report prepared by Octavioibjohana: Nico mckeon Under the Supervision of: Dr. Dc Foley D.O. First contact with patient: 21:33 Chief Complaint: SWELLING TO EXTREMITY Stated Complaint: FLUID BUILD UP IN LEGS AND FEET History of Present Illness The patient is a 62 year old male who presents to the Emergency Room with complaints of worsening lower extremity swelling that began a couple of days ago. The patient states that he was recently taken off of his diuretic and Lisinopril. He reports that since, he noticed his lower extremities have been swelling. The patient states he noticed that he has been urinating less. He notes that he has been dizzy and lightheaded with standing up. The patient states he has been short of breath with exertion. He reports that he took two pills of his diuretic today without any relief. He denies chest pain, nausea, and vomiting. Source of History: patient Onset: a couple of days ago Position: leg (bilateral) Quality: other (swelling) Timing: worsening Modifying Factors (Relieving): other (diuretic) Associated Symptoms: + SOB, + urinary symptoms, No chest pain, No nausea, No vomiting Note: Associated symptoms: dizzy, lightheaded Review of Systems See HPI for pertinent positives & negatives. A total of 10 systems reviewed and were otherwise negative. Past Medical & Surgical Medical Problems: (1) COLLIN (acute kidney injury) (2) CKD (chronic kidney disease), stage III (3) 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 (4) Sepsis (5) Septicemia due to enterococcus (6) urethroplasty Family History Cancer Diabetes mellitus Heart disease Hypertension Kidney disease Kidney stones Lung disease Social History Smoking Status: Never Smoker Alcohol Use: occasionally Drug Use: none Marital Status: Housing Status: lives with significant other Occupation Status: unemployed Current/Historical Medications Scheduled Adalimumab (Humira), 20 MG INJ Q2WEEK Ferrous Sulfate (Iron), 325 MG PO QAM Omeprazole (Prilosec), 20 MG PO QAM Allergies Coded Allergies: Tamsulosin (Verified Allergy, Mild, HIVES, 04/04/17) Physical Exam Vital Signs Date Time Temp Pulse Resp B/P (MAP) Pulse Ox O2 Delivery O2 Flow Rate FiO2 08/29/17 01:00 36.6 81 16 115/65 98 08/29/17 00:51 83 14 08/29/17 00:45 36.6 81 16 113/69 98 08/29/17 00:36 83 18 7 00:31 84 15 08/29/17 00:26 91 18 08/29/17 00:16 85 17 08/29/17 00:11 87 15 08/29/17 00:06 87 13 08/29/17 00:01 70 16 08/28/17 23:56 83 17 18 23:51 83 13 08/28/17 23:47 36.6 78 18 113/69 98 Room Air 08/28/17 23:46 84 15 08/28/17 23:41 81 12 08/28/17 23:40 113/69 08/28/17 23:36 83 13 08/28/17 23:31 85 14 08/28/17 23:21 86 18 08/28/17 23:16 85 14 08/28/17 23:11 86 17 08/28/17 23:06 93 19 08/28/17 23:01 85 13 100 08/28/17 22:56 100 27 100 08/28/17 22:51 84 13 100 08/28/17 22:46 83 10 100 08/28/17 22:41 86 11 100 08/28/17 22:36 83 14 100 08/28/17 22:26 87 13 99 08/28/17 22:23 87 08/28/17 22:21 86 14 99 08/28/17 22:16 85 14 08/28/17 21:57 98 Room Air 08/28/17 21:57 98 Room Air 08/28/17 21:12 36.7 83 18 108/69 100 Room Air Physical Exam GENERAL: Patient is awake, alert, and in no acute distress. Patient is resting comfortably and showing no signs of anxiety EYES: The conjunctivae are clear. The pupils are round and reactive. EARS, NOSE, MOUTH AND THROAT: The nose is without any evidence of any deformity. Mucous membranes are moist. Tongue is midline NECK: The neck is nontender and supple. RESPIRATORY: Normal respiratory effort is noted. There is no evidence of wheezing rhonchi or rales to auscultation. CARDIOVASCULAR: Regular rate and rhythm noted. There no murmurs rubs or gallops normal S1 normal S2 GASTROINTESTINAL: The abdomen is soft. Bowel sounds are present in all quadrants. Abdomen is nontender. MUSCULOSKELETAL/EXTREMITIES: There is no evidence of gross deformity. Full range of motion is noted in the hips and shoulders. SKIN: Cool, dry, pale, significant pedal edema noted bilaterally. NEUROLOGIC: Patient is awake alert and oriented x3. Medical Decision & Procedures ER Provider Diagnostic Interpretation: X-ray results as stated below per interpretation by me and the radiologist. CHEST ONE VIEW PORTABLE CLINICAL HISTORY: 62 years-old Male presenting with EVALUATE ALTERED MENTAL STATUS/WEAKNESS. TECHNIQUE: Portable upright AP view of the chest was obtained. COMPARISON: 04/06/2015. FINDINGS: Cardiac silhouette enlarged, unchanged. Decreased pulmonary vascular prominence in comparison to the prior exam lobe pulmonary vasculature is still relatively enlarged bronchial wall cuffing. No focal opacity. No large effusion or pneumothorax. Degenerative changes of the thoracic spine. Upper abdomen normal. IMPRESSION: 1. Cardiomegaly with mild volume overload. No santino pulmonary edema. Electronically signed by: Thaddeus Saavedra M.D. 08/28/2017 10:18 PM Dictated Date/Time: 08/28/2017 10:18 PM Laboratory Results Test 08/28/17 21:50 08/28/17 22:10 Urine Color YELLOW Urine Appearance CLEAR (CLEAR) Urine pH 5.0 (4.5-7.5) Urine Specific [place] 1.010 (1.000-1.030) Urine Protein NEG (NEG) Urine Glucose (UA) NEG (NEG) Urine Ketones NEG (NEG) Urine Occult Blood NEG (NEG) Urine Nitrite NEG (NEG) Urine Bilirubin NEG (NEG) Urine Urobilinogen NEG (NEG) Urine Leukocyte Esterase MODERATE (NEG) Urine WBC (Auto) 10-30 /hpf (0-5) Urine RBC (Auto) 0-4 /hpf (0-4) Urine Hyaline Casts (Auto) 5-10 /lpf (0-5) Urine Epithelial Cells (Auto) >30 /lpf (0-5) Urine Bacteria (Auto) NEG (NEG) Platelet Estimate DECREASED Polychromasia 1+ Prothrombin Time 11.9 SECONDS (9.0-12.0) Prothromb Time International Ratio 1.1 (0.9-1.1) Activated Partial Thromboplast Time 24.4 SECONDS (21.0-31.0) Partial Thromboplastin Ratio 0.9 Total Bilirubin 0.6 mg/dl (0.2-1) Direct Bilirubin 0.3 mg/dl (0-0.2) Aspartate Amino Transf (AST/SGOT) 33 U/L (15-37) Alanine Aminotransferase (ALT/SGPT) 20 U/L (12-78) Alkaline Phosphatase 96 U/L (45-117) Troponin I < 0.015 ng/ml (0-0.045) Pro-B-Type Natriuretic Peptide 407 pg/ml (0-900) Total Protein 6.8 gm/dl (6.4-8.2) Laboratory results per my review. ECG Per My Interpretation Indication: SOB/dyspnea Rate (beats per minute): 85 Rhythm: normal sinus Findings: no ectopy, other (No acute ST segments) Comparison ECG Date: 04/06/17 Change: no significant change ED Course 2147: The patient was evaluated in room C05. A complete history and physical examination were performed. 2: I reevaluated the patient and updated him on his results. I discussed the treatment plan, which he agrees to. The patient will be further evaluated. 2335: I discussed the [facility] the patient's condition and agrees to accept the patient. The patient will be evaluated for further management. Medical Decision Prior records reviewed and summarized above. Triage Nursing notes reviewed. Additional history obtained from the family. The patient's history was concerning for swelling and pain in the leg. Differential diagnosis: Etiologies such as DVT, musculoskeletal, infection, joint effusion, trauma, lymphedema, idiopathic, CHF, as well as others were entertained. The patient is a 62-year-old male who presented to the emergency department for an evaluation of lower extremity edema. The patient has had problems with his kidneys in the past. He had some his fluid medications stopped and he thought this was the cause of his edema. He was found to be in severe anemia. His renal function does not appear to be too far from baseline according to her previous labs. I do feel the patient could be in some degree of high output failure with the significant anemia this could explain the edema in his legs. But his vital signs overall are stable. He was crossmatched for blood. I consented the patient for blood. I [facility] They have agreed to evaluate the patient in the emergency department for further management and disposition. Medication Reconcilliation Current Medication List: was personally reviewed by me Blood Pressure Screening Patient's blood pressure: Normal blood pressure Consults Time Called: 2334 Consulting Physician: Artem Barnes Hospitalist Returned Call: [phone] I discussed the patient's case with Artem Barnes Hospitalist. He understands the patient's condition and agrees to accept the patient. The patient will be evaluated for further management. Impression Primary Impression: Anemia Additional Impressions: Renal failure Peripheral edema Scribe Attestation The scribe's documentation has been prepared under my direction and personally reviewed by me in its entirety. I confirm that the note above accurately reflects all work, treatment, procedures, and medical decision making performed by me. Departure Information Dispostion Being Evaluated By Hospitalist Referrals Norris Truong PA-C (PCP) Patient Instructions My [facility] Problem Qualifiers Primary Impression: Anemia Anemia type: unspecified type Qualified Codes: D64.9 - Anemia, unspecified Additional Impressions: Renal failure Renal failure chronicity: chronic Chronic kidney disease stage: unspecified stage Qualified Codes: N18.9 - Chronic kidney disease, unspecified
--- NOTE | 2017-08-28 22:20 | DIAGNOSTIC IMAGING REPORT ---
CHEST ONE VIEW PORTABLE CLINICAL HISTORY: 62 years-old Male presenting with EVALUATE ALTERED MENTAL STATUS/WEAKNESS. TECHNIQUE: Portable upright AP view of the chest was obtained. COMPARISON: 04/06/2015. FINDINGS: Cardiac silhouette enlarged, unchanged. Decreased pulmonary vascular prominence in comparison to the prior exam lobe pulmonary vasculature is still relatively enlarged bronchial wall cuffing. No focal opacity. No large effusion or pneumothorax. Degenerative changes of the thoracic spine. Upper abdomen normal. IMPRESSION: 1. Cardiomegaly with mild volume overload. No santino pulmonary edema. Electronically signed by: Thaddeus Saavedra M.D. 08/28/2017 10:18 PM Dictated Date/Time: 08/28/2017 10:18 PM
[2017-08-28 22:35] LABS: INR 1.1 (0.9-1.1); PTT PATIENT 24.4 SECONDS (21.0-31.0)
[2017-08-28 22:50] LABS: ALKALINE PHOSPHATASE 96 U/L (45-117); ALT/SGPT 20 U/L (12-78); AST/SGOT 33 U/L (15-37); BLOOD UREA NITROGEN 36 mg/dl (7-18); CALCIUM 8.2 mg/dl (8.5-10.1); CARBON DIOXIDE 23 mmol/L (21-32); CREATININE 2.49 mg/dl (0.60-1.40); GLUCOSE 103 mg/dl (70-99); POTASSIUM 4.1 mmol/L (3.5-5.1); SODIUM 137 mmol/L (136-145); TOTAL PROTEIN 6.8 gm/dl (6.4-8.2)
[2017-08-28 22:53] LABS: HEMATOCRIT 18.6 % (42-52); HEMOGLOBIN 6.4 g/dL (14.0-18.0); MEAN CELL VOLUME 97.9 fL (80-100); MEAN CORPUSCULAR HEMOGLOBIN 33.7 pg (25-34); MEAN CORPUSCULAR HGB CONC 34.4 g/dl (32-36); MEAN PLATELET VOLUME 9.5 fL (7.4-10.4); PLATELET COUNT 79 K/uL (130-400); RED CELL DISTRIBUTION WIDTH CV 15.2 % (11.5-14.5); RED CELL DISTRIBUTION WIDTH SD 53.9 fL (36.4-46.3)
[2017-08-28 22:56] LABS: BASO % 0.3 %; BASO ABS # 0.01 K/uL (0-0.2); EOS % 5.8 %; EOS ABS # 0.22 K/uL (0-0.5); LYMPH ABS # 1.14 K/uL (1.2-3.4); MONO % 9.2 %; MONO ABS # 0.35 K/uL (0.11-0.59); NEUT % 54.7 %; NEUT ABS # 2.08 K/uL (1.4-6.5)
[2017-08-28] MEDS ORDERED: ADAL20KI INJ (23:14)
[2017-08-28] MEDS ORDERED: PRLSR20 PO (23:14)
[2017-08-29] VITALS (23 sets, daily range): BP systolic 98–138; BP diastolic 59–75; PULSE 58–93; TEMP 36.4–36.9; O2SAT 90–100; Ht 172.7 cm; Wt 134.7 kg
[2017-08-29] MEDS ORDERED: ONDANSETRON INJ 2 MG/ML 2 ML VIAL IV PRN (01:15)
[2017-08-29] MEDS ORDERED: NITROGLYCERIN 0.4 MG SL PER TAB CHARGE SL PRN (01:15)
[2017-08-29] MEDS ORDERED: POLYETHYLENE (MIRALAX) 17 GM PACK PO PRN (01:15)
[2017-08-29] MEDS ORDERED: ACETAMINOPHEN 325 MG TAB PO PRN (01:15)
[2017-08-29] MEDS ORDERED: ALUMINUM/MAGNESIUM/SIMETH (MAALOX MAX) 30 ML UDC PO PRN (01:15)
[2017-08-29] MEDS: PANTOprazole INJ 40 MG in SYRINGE 0 ML IV SCH ×3 (03:50→20:08)
--- NOTE | 2017-08-29 06:03 | HISTORY & PHYSICAL EXAMINATION ---
DATE OF ADMISSION: 08/29/2017 CHIEF COMPLAINT: Lower extremity edema. 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 He has a prolonged hospital stay and was discharged with IV ampicillin, completed course of antibiotics, and followed with urology at [facility] and suprapubic catheter is removed. Currently, he is urinating ok from his urethra.. At that time, he was found to have liver cirrhosis mostly from SERRANO and followed with GI and supposed to get EGD in November.During last admission he also presented with a creatinine of 6 and improved with treatment of septic shock and discharge creatinine is 1.9, supposed to follow with labs with PCP. He is also following with nephrology, Dr. Finn Lopez and his last outpatient labs from April showed creatinine of 1.7. The patient presents today because of his worsening lower extremity edema. The patient states he has lower extremity edema since about a year. Over last few days, it is getting worsened . 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 His lisinopril was also stopped . The patient says as he is not making any urine for last 2 days and since lower extremity is getting worse, he took a couple of dose of Lasix but it didnot helped. He is urinating fine since he came to the ER. In the ER, he was found to have hemoglobin of 6.4. Also complains of some dizziness and some headaches. Denies any blurred vision, no earache, no runny nose, no sore throat and difficulty swallowing. No chest pain, no shortness of breath, no cough, no nausea, no abdominal pain. Otherwise, he is feeling fine. No blood in the urine. No blood in the stools. There is some black stool, but he takes iron pills. Currently, resting comfortable and hemodynamically stable. ALLERGIES: FLOMAX. PAST MEDICAL HISTORY: As mentioned above. PAST SURGICAL HISTORY: Colonoscopy with removal of lesions, cystoscopy with urethroplasty, cataract surgery, cholecystectomy, shoulder surgery. MEDICATIONS: Currently, the patient is on ferrous sulfate 325 mg p.o. daily, Humira twice monthly, Lasix 20 mg p.o. daily. FAMILY HISTORY: Significant for grandfather had lung cancer. Grandmother had diabetes. Father has cholecystectomy. Mother has no past history. Maternal grandfather has heart disorder. SOCIAL HISTORY: Never smoked. Used to snuff in . No alcohol use. No drug use. . REVIEW OF SYMPTOMS: As per HPI. Rest of review of systems negative. PHYSICAL EXAMINATION: GENERAL: The patient is obese, not in distress. VITAL SIGNS: Temperature 36.6, pulse 83, respiratory rate 14, blood pressure 113/69, oxygen saturation 98% on room air. HEENT: No pallor, no icterus. Pupils equal, round, and react to light. NECK: No JVD, no neck mass, no carotid bruit. CARDIOVASCULAR: S1, S2 heard, regular rate and rhythm, no murmur, no gallop. RESPIRATORY SYSTEM: Clear to auscultation bilaterally. No wheezing, no crackles. ABDOMEN: Soft, bowel sounds present. Nontender. No distention. CENTRAL NERVOUS SYSTEM: Cranial nerves II-XII grossly intact. Nonfocal. EXTREMITIES: Lower extremity gross edema present. No erythema seen. LABORATORIES: WBC 3.8, hemoglobin 6.4, hematocrit 18.6, platelets 79. Sodium 137, potassium 4.1, chloride 106, bicarbonate 23, BUN 36, creatinine 2.4, serum glucose 103, calcium 8.2, magnesium 1.9, total bilirubin 0.6, direct bilirubin 0.3, AST 33, ALT 20, alkaline phosphatase is 96, troponin I less than 0.015. BNP 407, albumin 3. TSH 10.3. PT 11.9, INR 1.1, APTT 24.4. Urinalysis positive for leukocyte esterase. EKG: Normal sinus rhythm with rate of 85, no acute ST changes seen. ASSESSMENT AND PLAN: This is a 62-year-old male who presents with lower extremity edema and also found to have anemia. 1. Anemia present with hemoglobin 6.4. hemoglobin at discharge last admission was 9.3. No obvious signs of bleeding. The patient has liver cirrhosis . possible from portal gastropathy or varices. Transfusion of 2 units of PRBC.Since there is no obvious signs of bleeding, we will place him on IV Protonix b.i.d. We will consult gastrointestinal for any further recommendation. His anemia could also be from his chronic kidney disease and also his psoriasis. We will check stool for Hemoccult. Follow the labs. 2. Lower extremity edema, mostly secondary to liver cirrhosis and chronic kidney disease . Echo done last admission was okay. His diuretics are at on hold because of renal failure. Consult nephrology for further recommendations. 3. Acute kidney injury. His creatinine was 1 with a GFR of greater than 60 in February but in March he presented with a septic shock with a creatinine of 6.5 and at discharge, his creatinine was 1.9. Currently follow as outpatient with nephrology outpatient and his creatinine was 1.7 in April 2017,Presented with creatinine of 2.4 today. getting PRBCs transfusions. Will follow the labs in the morning. Lasix and lisinopril on hold as outpatient .Consulted nephrology i for further recommendations. 4. History of posttraumatic urethral stricture status post surgery. He is off of suprapubic catheter now. 5. Hypertension. His lisinopril is on hold as outpatient. We will monitor blood pressure in the hospital. 6. History of psoriatic arthropathy, patient is on Humira twice monthly. 7. Deep venous thrombosis prophylaxis, sequential compression devices as patient has anemia. DISPOSITION: Admit to tele floor. Expect discharge home and follow with family doctor. Level 1 full code. MTDD
[2017-08-29 06:36] LABS: HEMATOCRIT 21.6 % (42-52); HEMOGLOBIN 7.4 g/dL (14.0-18.0); MEAN CELL VOLUME 95.2 fL (80-100); MEAN CORPUSCULAR HEMOGLOBIN 32.6 pg (25-34); MEAN CORPUSCULAR HGB CONC 34.3 g/dl (32-36); RED CELL DISTRIBUTION WIDTH CV 16.3 % (11.5-14.5); RED CELL DISTRIBUTION WIDTH SD 56.9 fL (36.4-46.3); WHITE BLOOD COUNT 2.58 K/uL (4.8-10.8)
[2017-08-29 06:53] LABS: MEAN PLATELET VOLUME 8.6 fL (7.4-10.4); PLATELET COUNT 57 K/uL (130-400)
[2017-08-29 06:55] LABS: BASO % 0.4 %; BASO ABS # 0.01 K/uL (0-0.2); EOS % 5.8 %; EOS ABS # 0.15 K/uL (0-0.5); LYMPH % 29.8 %; LYMPH ABS # 0.77 K/uL (1.2-3.4); MONO % 11.6 %; NEUT % 52.4 %; NEUT ABS # 1.35 K/uL (1.4-6.5)
[2017-08-29] MEDS ORDERED: PIPERACILL/TAZOBAC CONSULT ACTIVE PRN (07:00)
[2017-08-29 07:07] LABS: CALCIUM 7.7 mg/dl (8.5-10.1); CREATININE 2.04 mg/dl (0.60-1.40); POTASSIUM 3.7 mmol/L (3.5-5.1)
[2017-08-29] MEDS ORDERED: PIPERACILL/TAZOBAC IV 4.5 GM in DEXTROSE 5% 100ML 100 ML IV ONE (07:15)
--- NOTE | 2017-08-29 09:25 | Gastrointestinal Consultation ---
Gastrointestinal Consultation Date of Consultation: Aug 29, 2017 Attending Physician: Glen Consulting Physician: Jocelyn Reason for Consultation: anemia, cirrhosis History of Present Illness Patient is a 62 year old male w/ history of NAFLD cirrhosis who presented through the ED with lower extremity edema, weakness one week after D/C diuretics per nephrology. GI was asked to evaluate the pt for anemia. Pt was seen and evaluated, chart reviewed. He tells me he has not been evaluated by GI/ Hep in over two years and is planning for OP follow up with Dr. Hyatt. He suggests he has chronic dark stools on iron. These alternate between 1-3 times daily. Sometime coffee ground in appearance. No BRBPR. Denies abd pain, hematemesis, coffee ground emesis. No history of jaundice, ascites, HE, varices. Diagnosis: NAFLD Decompensations Kidney disease: yes Edema: yes Varices: none Ascites: none HE: none Screening HCC: UTD EGD: due Immunizations: unknown Past Medical/Surgical History Medical Problems: (1) Acute renal failure Status: Acute (2) Anemia Status: Acute (3) Complication of catheter Status: Acute (4) Cystitis Status: Acute (5) Elevated troponin Status: Acute (6) Hypomagnesemia Status: Acute (7) Hypotension Status: Acute (8) Peripheral edema Status: Acute (9) Pyelonephritis Status: Acute (10) Renal failure Status: Acute (11) Renal failure Status: Acute (12) Renal insufficiency Status: Acute (13) Sepsis due to urinary tract infection Status: Acute (14) Septic shock Status: Acute Past Medical History: 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 NAFLD cirrhosis .ObesityHTNPsoriatic arthritis, on Humira Past Surgical History: meatotomy urethral reconstruction: buccal mucosa graft substitution urethroplasty lap cholecystectomy appendectomy orthoscopic shoulder surgeries Bilat Luna's neuroma excisions from both feet. Bilat cataract surgeries, both eyes.. EGD, Colonoscopy Family History Cancer Diabetes mellitus Heart disease Hypertension Kidney disease Kidney stones Lung disease Social History Smoking Status: Never Smoker Alcohol Use: occasionally Drug Use: none Marital Status: Housing Status: lives with significant other Occupation Status: unemployed Allergies Coded Allergies: Tamsulosin (Verified Allergy, Mild, HIVES, 04/04/17) Current Medications Home Meds and Scripts Medications Dose Route/Sig Max Daily Dose Days Date Category Prilosec (Omeprazole) 20 Mg Capcr 20 Mg PO QAM 03/17/17 Reported Humira (Adalimumab) 20 Mg/0.4 Ml Kit 20 Mg INJ Q2WEEK 03/17/17 Reported Iron (Ferrous Sulfate) 325 Mg Tab 325 Mg PO QAM 07/26/16 Reported Review of Systems Constitutional: No fever, No chills, No weight loss, No weakness Respiratory: No cough, No shortness of breath Cardiac: + edema, No chest pain Abdomen: No pain, No nausea, No vomiting, No constipation, No GI bleeding, No dysphagia, No odynophagia Physical Exam Date Time Temp Pulse Resp B/P (MAP) Pulse Ox O2 Delivery O2 Flow Rate FiO2 08/29/17 06:59 36.4 58 16 98/59 (72) 100 Room Air 08/29/17 06:11 36.7 65 18 106/72 99 08/29/17 05:45 70 18 107/68 99 08/29/17 04:40 75 18 101/65 98 08/29/17 04:30 36.4 82 17 116/75 (89) 92 Room Air 08/29/17 04:15 85 16 100/64 99 08/29/17 04:00 36.6 78 16 102/66 99 08/29/17 04:00 100 Room Air 08/29/17 03:49 36.5 77 18 102/66 100 08/29/17 03:05 36.6 76 20 110/69 99 08/29/17 02:09 36.6 93 20 104/61 99 08/29/17 01:56 36.6 93 18 104/61 99 Room Air 08/29/17 01:45 36.6 81 18 120/70 100 08/29/17 01:45 36.6 81 18 120/70 100 08/29/17 01:30 82 18 138/63 97 08/29/17 01:15 85 18 125/73 98 08/29/17 01:00 36.6 81 16 115/65 98 08/29/17 00:51 83 14 08/29/17 00:45 36.6 81 16 113/69 98 08/29/17 00:36 83 18 08/29/17 00:31 84 15 08/29/17 00:26 91 18 08/29/17 00:16 85 17 08/29/17 00:11 87 15 08/29/17 00:06 87 13 08/29/17 00:01 70 16 08/28/17 23:56 83 17 08/28/17 23:51 83 13 08/28/17 23:47 36.6 78 18 113/69 98 Room Air 08/28/17 23:46 84 15 08/28/17 23:41 81 12 08/28/17 23:40 113/69 08/28/17 23:36 83 13 08/28/17 23:31 85 14 08/28/17 23:21 86 18 08/28/17 23:16 85 14 08/28/17 23:11 86 17 08/28/17 23:06 93 19 08/28/17 23:01 85 13 100 08/28/17 22:56 100 27 100 08/28/17 22:51 84 13 100 08/28/17 22:46 83 10 100 08/28/17 22:41 86 11 100 08/28/17 22:36 83 14 100 08/28/17 22:26 87 13 99 08/28/17 22:23 87 08/28/17 22:21 86 14 99 08/28/17 22:16 85 14 08/28/17 21:57 98 Room Air 08/28/17 21:57 98 Room Air 08/28/17 21:12 36.7 83 18 108/69 100 Room Air General Appearance: no apparent distress Eyes: PERRL ENT: hearing grossly normal Neck: no JVD Respiratory/Chest: lungs clear, normal breath sounds, no respiratory distress, no accessory muscle use Cardiovascular: regular rate, rhythm, no gallop, no JVD Abdomen: normal bowel sounds, non tender, soft, no organomegaly Extremities: + pedal edema Neurologic/Psych: alert, normal mood/affect, oriented x 3 Skin: normal color, no jaundice, warm/dry, no rash Laboratory Results Last 24 Hours Test 08/28/17 21:50 08/28/17 22:10 08/29/17 06:16 Urine Color YELLOW Urine Appearance CLEAR Urine pH 5.0 Urine Specific [place] 1.010 Urine Protein NEG Urine Glucose (UA) NEG Urine Ketones NEG Urine Occult Blood NEG Urine Nitrite NEG Urine Bilirubin NEG Urine Urobilinogen NEG Urine Leukocyte Esterase MODERATE Urine WBC (Auto) 10-30 /hpf Urine RBC (Auto) 0-4 /hpf Urine Hyaline Casts (Auto) 5-10 /lpf Urine Epithelial Cells (Auto) >30 /lpf Urine Bacteria (Auto) NEG White Blood Count 3.80 K/uL 2.58 K/uL Red Blood Count 1.90 M/uL 2.27 M/uL Hemoglobin 6.4 g/dL 7.4 g/dL Hematocrit 18.6 % 21.6 % Mean Corpuscular Volume 97.9 fL 95.2 fL Mean Corpuscular Hemoglobin 33.7 pg 32.6 pg Mean Corpuscular Hemoglobin Concent 34.4 g/dl 34.3 g/dl Platelet Count 79 K/uL 57 K/uL Mean Platelet Volume 9.5 fL 8.6 fL Neutrophils (%) (Auto) 54.7 % 52.4 % Lymphocytes (%) (Auto) 30.0 % 29.8 % Monocytes (%) (Auto) 9.2 % 11.6 % Eosinophils (%) (Auto) 5.8 % 5.8 % Basophils (%) (Auto) 0.3 % 0.4 % Neutrophils # (Auto) 2.08 K/uL 1.35 K/uL Lymphocytes # (Auto) 1.14 K/uL 0.77 K/uL Monocytes # (Auto) 0.35 K/uL 0.30 K/uL Eosinophils # (Auto) 0.22 K/uL 0.15 K/uL Basophils # (Auto) 0.01 K/uL 0.01 K/uL RDW Standard Deviation 53.9 fL 56.9 fL RDW Coefficient of Variation 15.2 % 16.3 % Immature Granulocyte % (Auto) 0.0 % 0.0 % Immature Granulocyte # (Auto) 0.00 K/uL 0.00 K/uL Platelet Estimate DECREASED Polychromasia 1+ Prothrombin Time 11.9 SECONDS Prothromb Time International Ratio 1.1 Activated Partial Thromboplast Time 24.4 SECONDS Partial Thromboplastin Ratio 0.9 Sodium Level 137 mmol/L 140 mmol/L Potassium Level 4.1 mmol/L 3.7 mmol/L Chloride Level 106 mmol/L 107 mmol/L Carbon Dioxide Level 23 mmol/L 28 mmol/L Anion Gap 9.0 mmol/L 5.0 mmol/L Blood Urea Nitrogen 36 mg/dl 35 mg/dl Creatinine 2.49 mg/dl 2.04 mg/dl Est Creatinine Clear Calc Drug Dose 41.4 ml/min 50.6 ml/min Estimated GFR () 30.7 39.0 Estimated GFR (Non- 26.5 33.7 BUN/Creatinine Ratio 14.4 17.0 Random Glucose 103 mg/dl 103 mg/dl Calcium Level 8.2 mg/dl 7.7 mg/dl Magnesium Level 1.9 mg/dl 2.1 mg/dl Total Bilirubin 0.6 mg/dl Direct Bilirubin 0.3 mg/dl Aspartate Amino Transf (AST/SGOT) 33 U/L Alanine Aminotransferase (ALT/SGPT) 20 U/L Alkaline Phosphatase 96 U/L Troponin I < 0.015 ng/ml Pro-B-Type Natriuretic Peptide 407 pg/ml Total Protein 6.8 gm/dl Albumin 3.0 gm/dl Thyroid Stimulating Hormone (TSH) 9.340 uIu/ml 6.130 uIu/ml Red Blood Cell Morphology Unremarkable Free Thyroxine 0.77 ng/dl Impression Patient is a 62 year old male, with anemia, occult positive stool with a hx of cirrhosis w/ previous similar presentation in April. He does not have any gross GI bleeding but does have dark stools on iron. His chronic anemia is consistent with that expected with NAFLD cirrhosis, perhaps portal hypertensive gastropathy Plan - Appreciate nephrology recommendations - No NSAIDs - Less than 2G tylenol if needed - Low NA diet, <2 gram diet - EGD, Colonoscopy timing to be determined - Please keep on clear liquids today in event of EGD/Colon tomorrow I have seen and examined the patient with BRENDA Redmond whose note reflects our findings and plan. EGD and colonoscopy tomorrow for anemia.
--- NOTE | 2017-08-29 09:35 | Nephrology Consultation ---
Nephrology Consultation Date & Providers Date of Consultation: Aug 29, 2017. Primary Care Provider: Norris Truong PA-C Referring Provider: Reason for Consultation COLLIN History of Present Illness Mr. Sebastian Quiñonez is a 62-year-old male who presented to the nephrology clinic at [facility] on August 22 for evaluation of acute on chronic renal insufficiency. Sebastian had presented to the ER at [facility] the day prior with lightheadedness and dizziness. He was hypotensive on arrival. Heart rate 70 beats per minute and regular. IV fluids were provided for suspected dehydration. Laboratory studies were notable for a creatinine of 4.5 mg/dL. Metabolic profile was otherwise within normal limits with a mildly elevated T bili (1.2) and slightly low serum albumin (3.2). The patient relates that his blood pressure had been low for 2 days prior to presentation. BP on arrival was found to be 83/37 mmHg. It was 123/53 mmHg on discharge. 2L of saline was provided during his time in the ER. Sebastian was afebrile. He did not have a leukocytosis. He has chronic stable anemia. Urine studies demonstrated possible UTI and IV ceftriaxone was given. The patient was discharged on cefdinir. CXR but no additional imaging was obtained. The CXR reported cardiomegaly but was otherwise found to be normal. Sebastian refused to stay in the ED for additional evaluation. He presented to the clinic the following day for assessment. He had not been previously evaluated in the nephrology clinic. On August 22, in the nephrology clinic, repeat laboratory studies documented a creatinine of 2.3 mg/dL. Renal profile was otherwise acceptable. Kidney ultrasound documented atrophic kidneys without evidence of obstruction. Right kidney 8.9 cm and left 11.2 cm. UA was bland with acellular microscopy. Urine sodium was 72. Diuretics were held and follow up was arranged. Unfortunately, Sebastian has been suffering from increasing lower extremity edema since his diuretics were held. He presented to [facility] yesterday for evaluation of lower extremity edema. Laboratory studies noted a creatinine of 2.49 mg/dL on arrival. UA was bland. Microscopy notable for 10-30 WBC and hyaline cast but no RBC's. CXR noted cardiomegaly and mild pulmonary edema. Hemoglobin was 6.4 with a WBC of 3800 and platelets of 80,000. The patient does have chronic anemia and thrombocytopenia. The etiology is unclear. He follows with a merchandise collector (Dr. Bowman [facility]). During hospitalization in March, platelet count had dropped to 30,000. It was 112,000 at the time of discharge. Hemoglobin was 9.4 at that time. 2 units of PRBC were transfused yesterday with an additional unit ordered for today. Medical history is also notable for cirrhosis due to SERRANO (normal LFT's at baseline; no reported history of varices, ascites or encephalopathy), psoriatic arthritis (maintained on Humira), spinal stenosis/OA/DJD including knees and shoulders, hypertension, recurrent nephrolithiasis, Lyme disease, history of urethral reconstruction. Previously, he had undergone meatotomy with no success necessitating suprapubic catheter placement. Urethral reconstruction was performed on 03/07/17 at [facility]. He was discharged with a Madrigal catheter and suprapubic catheter. On March 29 2017, Madrigal was discontinued. Sebastian was admitted to [facility] later in March with severe sepsis due to enterococcus bacteremia and UTI. He had a prolonged hospital stay and was discharged with IV ampicillin. After treatment, suprapubic catheter was removed. Currently, he is urinating from his urethra. He was admitted with a creatinine of 6 which improved to 1.9 mg/dL at the time of discharge. Appropriately 1 month ago, the patient and his report a period of unexplained confusion. He had taken some Motrin at that time but has not taken the medication since. Sebastian was recently started on furosemide for LE edema. TTE in March revealed mild LVH with normal LV size and function and no significant valvular heart disease. Past Medical/Surgical History Medical: CKD III SERRANO cirrhosis Psoriatic arthritis Chronic cytopenias (followed by Dr. Bowman [facility]) Spinal stenosis/OA/DJD including knees and shoulders Hypertension Recurrent nephrolithiasis Recurrent UTI Lyme disease History of urethral reconstruction Surgical: Meatotomy, suprapubic catheter placement, urethral reconstruction, colonoscopy with polypectomy, cholecystectomy, shoulder surgery, liver biopsy (2010) Allergies Coded Allergies: Tamsulosin (Verified Allergy, Mild, HIVES, 04/04/17) Inpatient Medications Current Inpatient Medications Medications (Trade) Dose Ordered Sig/Min Route Start Time Stop Time Status Last Admin Dose Admin Acetaminophen (Tylenol Tab) 650 mg Q4H PRN PO 08/29/17 01:15 8/4/18 01:14 Al Hydrox/Mg Hydrox/Simethicone (Maalox Max Susp) 15 ml Q4H PRN PO 08/29/17 01:15 09/28/17 01:14 Ondansetron HCl (Zofran Inj) 4 mg Q6H PRN IV 08/29/17 01:15 09/28/17 01:14 Nitroglycerin (Nitrostat Tab) 0.4 mg UD PRN SL 08/29/17 01:15 09/28/17 01:14 Polyethylene (Miralax Powder Packet) 17 gm DAILY PRN PO 08/29/17 01:15 09/28/17 01:14 Ferrous Sulfate (Feosol Tab) 325 mg QAM PO 08/29/17 09:00 09/28/17 08:59 Pantoprazole Sodium 40 mg/ Syringe 10 ml @ 5 mls/min DAILY@09,21 IV 08/29/17 02:30 09/01/17 09:01 08/29/17 07:51 5 MLS/MIN Piperacillin Sod/ Tazobactam Sod 4.5 gm/Dextrose 120 ml @ 28.75 mls/ hr Q8H IV 08/29/17 12:00 09/08/17 11:59 Miscellaneous Information (Consult) 1 ea UD PRN N/A 08/29/17 07:00 09/28/17 06:59 Family History Cancer Diabetes mellitus Heart disease Hypertension Kidney disease Kidney stones Lung disease Social History Smoking Status: Never Smoker Drug Use: none Marital Status: Housing Status: lives with family Occupation: unemployed Review of Systems A complete review of systems was performed. Pertinent positives are noted above. All other systems are negative. Physical Exam Date Time Temp Pulse Resp B/P (MAP) Pulse Ox O2 Delivery O2 Flow Rate FiO2 08/29/17 06:59 36.4 58 16 98/59 (72) 100 Room Air 08/29/17 06:11 36.7 65 18 106/72 99 08/29/17 05:45 70 18 107/68 99 08/29/17 04:40 75 18 101/65 98 08/29/17 04:30 36.4 82 17 116/75 (89) 92 Room Air 08/29/17 04:15 85 16 100/64 99 08/29/17 04:00 36.6 78 16 102/66 99 08/29/17 04:00 100 Room Air 08/29/17 03:49 36.5 77 18 102/66 100 08/29/17 03:05 36.6 76 20 110/69 99 08/29/17 02:09 36.6 93 20 104/61 99 08/29/17 01:56 36.6 93 18 104/61 99 Room Air 08/29/17 01:45 36.6 81 18 120/70 100 08/29/17 01:45 36.6 81 18 120/70 100 08/29/17 01:30 82 18 138/63 97 08/29/17 01:15 85 18 125/73 98 08/29/17 01:00 36.6 81 16 115/65 98 08/29/17 00:51 83 14 08/29/17 00:45 36.6 81 16 113/69 98 08/29/17 00:36 83 18 08/29/17 00:31 84 15 08/29/17 00:26 91 18 08/29/17 00:16 85 17 08/29/17 00:11 87 15 08/29/17 00:06 87 13 08/29/17 00:01 70 16 08/28/17 23:56 83 17 08/28/17 23:51 83 13 08/28/17 23:47 36.6 78 18 113/69 98 Room Air 08/28/17 23:46 84 15 08/28/17 23:41 81 12 08/28/17 23:40 113/69 08/28/17 23:36 83 13 08/28/17 23:31 85 14 08/28/17 23:21 86 18 08/28/17 23:16 85 14 08/28/17 23:11 86 17 08/28/17 23:06 93 19 08/28/17 23:01 85 13 100 08/28/17 22:56 100 27 100 08/28/17 22:51 84 13 100 18 22:46 83 10 100 08/28/17 22:41 86 11 100 08/28/17 22:36 83 14 100 08/28/17 22:26 87 13 99 08/28/17 22:23 87 08/28/17 22:21 86 14 99 08/28/17 22:16 85 14 7/4/18 21:57 98 Room Air 08/28/17 21:57 98 Room Air 08/28/17 21:12 36.7 83 18 108/69 100 Room Air General Appearance: WD/WN Head: normocephalic, atraumatic Eyes: normal inspection, sclerae normal ENT: normal ENT inspection, pharynx normal Neck: supple, + JVD Respiratory/Chest: lungs clear, no respiratory distress, no accessory muscle use Cardiovascular: regular rate, rhythm, no gallop, no murmur Abdomen/GI: non tender, soft Extremities/Musculoskelatal: normal inspection, + pedal edema Neurologic/Psych: alert, normal mood/affect Laboratory Results Last 24 Hours Test 08/28/17 21:50 08/28/17 22:10 08/29/17 06:16 Urine Color YELLOW Urine Appearance CLEAR Urine pH 5.0 Urine Specific [place] 1.010 Urine Protein NEG Urine Glucose (UA) NEG Urine Ketones NEG Urine Occult Blood NEG Urine Nitrite NEG Urine Bilirubin NEG Urine Urobilinogen NEG Urine Leukocyte Esterase MODERATE Urine WBC (Auto) 10-30 /hpf Urine RBC (Auto) 0-4 /hpf Urine Hyaline Casts (Auto) 5-10 /lpf Urine Epithelial Cells (Auto) >30 /lpf Urine Bacteria (Auto) NEG White Blood Count 3.80 K/uL 2.58 K/uL Red Blood Count 1.90 M/uL 2.27 M/uL Hemoglobin 6.4 g/dL 7.4 g/dL Hematocrit 18.6 % 21.6 % Mean Corpuscular Volume 97.9 fL 95.2 fL Mean Corpuscular Hemoglobin 33.7 pg 32.6 pg Mean Corpuscular Hemoglobin Concent 34.4 g/dl 34.3 g/dl Platelet Count 79 K/uL 57 K/uL Mean Platelet Volume 9.5 fL 8.6 fL Neutrophils (%) (Auto) 54.7 % 52.4 % Lymphocytes (%) (Auto) 30.0 % 29.8 % Monocytes (%) (Auto) 9.2 % 11.6 % Eosinophils (%) (Auto) 5.8 % 5.8 % Basophils (%) (Auto) 0.3 % 0.4 % Neutrophils # (Auto) 2.08 K/uL 1.35 K/uL Lymphocytes # (Auto) 1.14 K/uL 0.77 K/uL Monocytes # (Auto) 0.35 K/uL 0.30 K/uL Eosinophils # (Auto) 0.22 K/uL 0.15 K/uL Basophils # (Auto) 0.01 K/uL 0.01 K/uL RDW Standard Deviation 53.9 fL 56.9 fL RDW Coefficient of Variation 15.2 % 16.3 % Immature Granulocyte % (Auto) 0.0 % 0.0 % Immature Granulocyte # (Auto) 0.00 K/uL 0.00 K/uL Platelet Estimate DECREASED Polychromasia 1+ Prothrombin Time 11.9 SECONDS Prothromb Time International Ratio 1.1 Activated Partial Thromboplast Time 24.4 SECONDS Partial Thromboplastin Ratio 0.9 Sodium Level 137 mmol/L 140 mmol/L Potassium Level 4.1 mmol/L 3.7 mmol/L Chloride Level 106 mmol/L 107 mmol/L Carbon Dioxide Level 23 mmol/L 28 mmol/L Anion Gap 9.0 mmol/L 5.0 mmol/L Blood Urea Nitrogen 36 mg/dl 35 mg/dl Creatinine 2.49 mg/dl 2.04 mg/dl Est Creatinine Clear Calc Drug Dose 41.4 ml/min 50.6 ml/min Estimated GFR () 30.7 39.0 Estimated GFR (Non- 26.5 33.7 BUN/Creatinine Ratio 14.4 17.0 Random Glucose 103 mg/dl 103 mg/dl Calcium Level 8.2 mg/dl 7.7 mg/dl Magnesium Level 1.9 mg/dl 2.1 mg/dl Total Bilirubin 0.6 mg/dl Direct Bilirubin 0.3 mg/dl Aspartate Amino Transf (AST/SGOT) 33 U/L Alanine Aminotransferase (ALT/SGPT) 20 U/L Alkaline Phosphatase 96 U/L Troponin I < 0.015 ng/ml Pro-B-Type Natriuretic Peptide 407 pg/ml Total Protein 6.8 gm/dl Albumin 3.0 gm/dl Thyroid Stimulating Hormone (TSH) 9.340 uIu/ml 6.130 uIu/ml Red Blood Cell Morphology Unremarkable Free Thyroxine 0.77 ng/dl Impression (1) COLLIN (acute kidney injury) (2) CKD (chronic kidney disease), stage III (3) 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 (4) Anemia (5) Peripheral edema Mr. Sebastian Quiñonez is a 62-year-old male with obesity, SERRANO cirrhosis, hypertension, psoriatic arthritis, recurrent nephrolithiasis, recurrent UTI, spinal stenosis, OA/DJD, history of urethral reconstruction and CKD. Baseline creatinine reported at ~1.9 mg/dL consistent with CKD III. History includes multiple episodes of COLLIN. COLLIN in March attributed to ATN in the setting of enterococcus infection. In July, the patient had COLLIN attributed to prerenal physiology related to diuretic use for lower extremity edema. Edema now worsening after diuretics held. There is renal asymmetry suggestive of possible underlying renovascular disease as well. No evidence of obstruction was appreciated. With PRBC transfusion support there has been early improvement in kidney function. Metabolic profile is otherwise acceptable. Liver enzymes remains stable. UA is bland with a few WBC's and hyaline cast. The patient was recently treated with cefdinir for possible UTI. Blood pressure remains slightly low. There is chronic hypotension per history. Some evidence of pulmonary vascular congestion of exam and chest X-ray additional transfusion support ordered today. Recommendations -- Check urine sodium -- Peripheral smear -- Document I/O's -- Check PVR -- Furosemide 20 mg IV with PRBC transfusion today, goal to maintain slightly negative fluid balance -- Repeat metabolic profile and CBC this afternoon -- Obtain records from merchandise collector regarding cytopenia and consider hematology consult -- GI consult pending -- Check renal duplex -- Hold lisinopril
[2017-08-29] MEDS ORDERED: FUROSEMIDE INJ 20 MG in SYRINGE 0 ML IV ONE (09:45)
--- NOTE | 2017-08-29 11:08 | Progress Note ---
Internal Med Progress Note Date of Service: Aug 29, 2017. Provider Documentation: SUBJECTIVE: Seen and examined at bedside States feeling better Dizziness and SOB resolved Leg swelling improving Improved Urine output Denies chest pain, abdominal pain, dysuria Received 2 units PRBCs overnight OBJECTIVE: Vital Signs-as noted below Physical Exam: General Appearance:Obese, no apparent distress Head: normocephalic, Atraumatic Eyes: normal inspection, EOMI, PERRL Neck: supple, Trachea midline Respiratory/Chest: Normal breath sounds, CTA Cardiovascular: S1, S2, No murmur Abdomen/GI:Soft, Non tender, Bowel sounds present Extremities/Musculoskelatal:normal inspection, 1+ b/l edema Neurologic/Psych:AAOX3, grossly no focal neurological deficits Skin: normal color, warm Lab data as noted below. ASSESSMENT & PLAN: Symptomatic Anemia: Presented with Hb: 6.4 Could be multifactorial: H/O Polyps, CKD, Cirrhosis, Possible portal gastropathy or varices Has dark colored stools; on Iron supplements No obvious source of bleeding S/P 2 units PRBCs Monitor H&H, Transfuse PRBCs PRN Continue IV Protonix Likely needs EGD/Colonoscopy Appreciate GI input Avoid NSAIDs Obtain old records from his [employer] FOBT pending Lower extremity edema: mostly secondary to liver cirrhosis and CKD Last ECHO EF:55-60% His diuretics were held 2/2 renal failure prior to admission Continue Lasix PRN Nephrology on board 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: Baseline creatinine is around 1.9 Urine Sodium, Peripheral smear,PVR, renal duplex Monitor I/OS, Renal function Hold Lisinopril Lasix PRN to maintain negative balance Avoid Nephrotoxic agents as able H/O posttraumatic urethral stricture S/P surgery and currently off suprapubic catheter No voiding issues H/O cirrhosis 2/2 NAFLD Chronic Thrombocytopenia: Monitor Platelets Will obtain old records Abnormal UA: H/O UTI Continue Abx empirically Urine culture pending Elevated TSH and Low Free T4: Will repeat labs Consider starting levothyroxine based on labs Hypertension: BP stable Hold lisinopril H/O psoriatic arthropathy On Humira twice monthly DVT Px: SCDs Re: Anemia, Thrombocytopenia Code Status: Full Code Disposition: Monitor in Tele Vital Signs: Date Time Temp Pulse Resp B/P (MAP) Pulse Ox O2 Delivery O2 Flow Rate FiO2 08/29/17 08:00 100 Room Air 08/29/17 06:59 36.4 58 16 98/59 (72) 100 Room Air 08/29/17 06:11 36.7 65 18 106/72 99 08/29/17 05:45 70 18 107/68 99 08/29/17 04:40 75 18 101/65 98 08/29/17 04:30 36.4 82 17 116/75 (89) 92 Room Air 08/29/17 04:15 85 16 100/64 99 08/29/17 04:00 36.6 78 16 102/66 99 08/29/17 04:00 100 Room Air 08/29/17 03:49 36.5 77 18 102/66 100 08/29/17 03:05 36.6 76 20 110/69 99 08/29/17 02:09 36.6 93 20 104/61 99 08/29/17 01:56 36.6 93 18 104/61 99 Room Air 08/29/17 01:45 36.6 81 18 120/70 100 08/29/17 01:45 36.6 81 18 120/70 100 08/29/17 01:30 82 18 138/63 97 08/29/17 01:15 85 18 125/73 98 08/29/17 01:00 36.6 81 16 115/65 98 08/29/17 00:51 83 14 08/29/17 00:45 36.6 81 16 113/69 98 08/29/17 00:36 83 18 08/29/17 00:31 84 15 08/29/17 00:26 91 18 08/29/17 00:16 85 17 08/29/17 00:11 87 15 08/29/17 00:06 87 13 08/29/17 00:01 70 16 08/28/17 23:56 83 17 08/28/17 23:51 83 13 08/28/17 23:47 36.6 78 18 113/69 98 Room Air 08/28/17 23:46 84 15 08/28/17 23:41 81 12 18 23:40 113/69 08/28/17 23:36 83 13 08/28/17 23:31 85 14 08/28/17 23:21 86 18 08/28/17 23:16 85 14 08/28/17 23:11 86 17 08/28/17 23:06 93 19 7/4/18 23:01 85 13 100 08/28/17 22:56 100 27 100 08/28/17 22:51 84 13 100 08/28/17 22:46 83 10 100 08/28/17 22:41 86 11 100 08/28/17 22:36 83 14 100 08/28/17 22:26 87 13 99 08/28/17 22:23 87 08/28/17 22:21 86 14 99 08/28/17 22:16 85 14 08/28/17 21:57 98 Room Air 08/28/17 21:57 98 Room Air 08/28/17 21:12 36.7 83 18 108/69 100 Room Air Lab Results: Results Past 24 Hours Test 08/28/17 21:50 08/28/17 22:10 08/29/17 06:16 Range/Units Urine Color YELLOW Urine Appearance CLEAR CLEAR Urine pH 5.0 4.5-7.5 Urine Specific [place] 1.010 1.000-1.030 Urine Protein NEG NEG Urine Glucose (UA) NEG NEG Urine Ketones NEG NEG Urine Occult Blood NEG NEG Urine Nitrite NEG NEG Urine Bilirubin NEG NEG Urine Urobilinogen NEG NEG Urine Leukocyte Esterase MODERATE NEG Urine WBC (Auto) 10-30 0-5 /hpf Urine RBC (Auto) 0-4 0-4 /hpf Urine Hyaline Casts (Auto) 5-10 0-5 /lpf Urine Epithelial Cells (Auto) >30 0-5 /lpf Urine Bacteria (Auto) NEG NEG White Blood Count 3.80 2.58 4.8-10.8 K/uL Red Blood Count 1.90 2.27 4.7-6.1 M/uL Hemoglobin 6.4 7.4 14.0-18.0 g/dL Hematocrit 18.6 21.6 42-52 % Mean Corpuscular Volume 97.9 95.2 80-100 fL Mean Corpuscular Hemoglobin 33.7 32.6 25-34 pg Mean Corpuscular Hemoglobin Concent 34.4 34.3 32-36 g/dl Platelet Count 79 57 130-400 K/uL Mean Platelet Volume 9.5 8.6 7.4-10.4 fL Neutrophils (%) (Auto) 54.7 52.4 % Lymphocytes (%) (Auto) 30.0 29.8 % Monocytes (%) (Auto) 9.2 11.6 % Eosinophils (%) (Auto) 5.8 5.8 % Basophils (%) (Auto) 0.3 0.4 % Neutrophils # (Auto) 2.08 1.35 1.4-6.5 K/uL Lymphocytes # (Auto) 1.14 0.77 1.2-3.4 K/uL Monocytes # (Auto) 0.35 0.30 0.11-0.59 K/uL Eosinophils # (Auto) 0.22 0.15 0-0.5 K/uL Basophils # (Auto) 0.01 0.01 0-0.2 K/uL RDW Standard Deviation 53.9 56.9 36.4-46.3 fL RDW Coefficient of Variation 15.2 16.3 11.5-14.5 % Immature Granulocyte % (Auto) 0.0 0.0 % Immature Granulocyte # (Auto) 0.00 0.00 0.00-0.02 K/uL Platelet Estimate DECREASED Polychromasia 1+ Prothrombin Time 11.9 9.0-12.0 SECONDS Prothromb Time International Ratio 1.1 0.9-1.1 Activated Partial Thromboplast Time 24.4 21.0-31.0 SECONDS Partial Thromboplastin Ratio 0.9 Sodium Level 137 140 136-145 mmol/L Potassium Level 4.1 3.7 3.5-5.1 mmol/L Chloride Level 106 107 98-107 mmol/L Carbon Dioxide Level 23 28 21-32 mmol/L Anion Gap 9.0 5.0 3-11 mmol/L Blood Urea Nitrogen 36 35 7-18 mg/dl Creatinine 2.49 2.04 0.60-1.40 mg/dl Est Creatinine Clear Calc Drug Dose 41.4 50.6 ml/min Estimated GFR () 30.7 39.0 Estimated GFR (Non- 26.5 33.7 BUN/Creatinine Ratio 14.4 17.0 10-20 Random Glucose 103 103 70-99 mg/dl Calcium Level 8.2 7.7 8.5-10.1 mg/dl Magnesium Level 1.9 2.1 1.8-2.4 mg/dl Total Bilirubin 0.6 0.2-1 mg/dl Direct Bilirubin 0.3 0-0.2 mg/dl Aspartate Amino Transf (AST/SGOT) 33 15-37 U/L Alanine Aminotransferase (ALT/SGPT) 20 12-78 U/L Alkaline Phosphatase 96 45-117 U/L Troponin I < 0.015 0-0.045 ng/ml Pro-B-Type Natriuretic Peptide 407 0-900 pg/ml Total Protein 6.8 6.4-8.2 gm/dl Albumin 3.0 3.4-5.0 gm/dl Thyroid Stimulating Hormone (TSH) 9.340 6.130 0.300-4.500 uIu/ml Red Blood Cell Morphology Unremarkable Free Thyroxine 0.77 0.80-1.60 ng/dl
[2017-08-29] MEDS: PIPERACILL/TAZOBAC IV 4.5 GM in DEXTROSE 5% 100ML 100 ML IV SCH ×2 (11:52→19:13)
[2017-08-29] MEDS: FERROUS SULFATE 325 MG TAB PO SCH (11:52)
--- NOTE | 2017-08-29 14:11 | DIAGNOSTIC IMAGING REPORT ---
DUPLEX RENAL ARTERY CLINICAL HISTORY: 62 years-old Male presenting with COLLIN, CKD, renal asymmetry. TECHNIQUE: Real-time grayscale and color and spectral Doppler ultrasound imaging of the kidneys was performed. COMPARISON: 08/22/2017. FINDINGS: Right kidney: Grossly normal echogenicity of renal parenchyma. No hydronephrosis. Intrarenal resistive indices range from 0.56 to 0.63. Normal intrarenal arterial waveforms. Renal artery patent with peak systolic velocity 40 cm/s in the midportion and 29 cm/s distally. Renal vein patent. Left kidney: Grossly normal echogenicity of renal parenchyma. No hydronephrosis. Intrarenal resistive index 0.51. Normal intrarenal arterial waveforms within the upper pole. The interpolar region and lower pole are not well evaluated and demonstrate poor intrarenal waveforms. Renal artery poorly visualized. Poor visualization prohibits spectral Doppler interrogation of the renal artery for peak systolic velocity. Renal vein patent. Abdominal aorta: Patent. Peak systolic velocity 121 cm/s. Ratio of right renal artery PSV/aortic PSV: 0.33. Ratio of left renal artery PSV/aortic PSV: Unable to calculate due to poor visualization. Other: None. Reference ranges: Normal main renal artery peak systolic velocity less than 180 cm/s. Ratio of renal artery PSV to aortic PSV less than 3.5 equates to normal or less than 60% stenosis. Only one of the two criteria listed needs to be met for diagnosis. IMPRESSION: 1. Extremely limited exam. No gross evidence of right renal artery stenosis. The left renal artery is poorly visualized and it is difficult to confirm patency. If there is continuing clinical concern, noncontrast MRA could be considered. Electronically signed by: Thaddeus Saavedra M.D. 08/29/2017 2:10 PM Dictated Date/Time: 08/29/2017 2:05 PM
[2017-08-29 14:22] LABS: HEMATOCRIT 23.8 % (42-52)
[2017-08-29 14:44] LABS: ALBUMIN 2.8 gm/dl (3.4-5.0); CALCIUM 8.5 mg/dl (8.5-10.1); CREATININE 1.92 mg/dl (0.60-1.40); PHOSPHORUS 3.2 mg/dl (2.5-4.9); POTASSIUM 4.1 mmol/L (3.5-5.1)
[2017-08-29] MEDS ORDERED: BISACODYL 5 MG TABEC PO ONE (19:00)
[2017-08-29] MEDS ORDERED: LAVAGE SOLUTION 4000ML PO ONE (19:00)
[2017-08-29 22:13] LABS: HEMATOCRIT 24.9 % (42-52); HEMOGLOBIN 8.6 g/dL (14.0-18.0)
[2017-08-30] VITALS (9 sets, daily range): BP systolic 91–123; BP diastolic 44–78; PULSE 66–85; TEMP 36.4–37; O2SAT 95–100
[2017-08-30] MEDS: PIPERACILL/TAZOBAC IV 4.5 GM in DEXTROSE 5% 100ML 100 ML IV SCH ×3 (04:04→21:02)
[2017-08-30 06:39] LABS: HEMATOCRIT 20.8 % (42-52); HEMOGLOBIN 7.2 g/dL (14.0-18.0); MEAN CELL VOLUME 95.9 fL (80-100); MEAN CORPUSCULAR HEMOGLOBIN 33.2 pg (25-34); MEAN CORPUSCULAR HGB CONC 34.6 g/dl (32-36); MEAN PLATELET VOLUME 8.2 fL (7.4-10.4); RED CELL DISTRIBUTION WIDTH CV 16.6 % (11.5-14.5); RED CELL DISTRIBUTION WIDTH SD 56.9 fL (36.4-46.3)
[2017-08-30 06:46] LABS: PLATELET COUNT 51 K/uL (130-400)
[2017-08-30 06:47] LABS: BASO % 0.4 %; BASO ABS # 0.01 K/uL (0-0.2); EOS % 4.8 %; EOS ABS # 0.12 K/uL (0-0.5); LYMPH % 29.2 %; LYMPH ABS # 0.73 K/uL (1.2-3.4); MONO ABS # 0.35 K/uL (0.11-0.59); NEUT % 51.6 %; NEUT ABS # 1.29 K/uL (1.4-6.5)
[2017-08-30 07:12] LABS: CREATININE 1.86 mg/dl (0.60-1.40); POTASSIUM 3.8 mmol/L (3.5-5.1)
[2017-08-30] MEDS: PANTOprazole INJ 40 MG in SYRINGE 0 ML IV SCH ×2 (08:23→21:03)
[2017-08-30] MEDS: FERROUS SULFATE 325 MG TAB PO SCH (08:23)
--- NOTE | 2017-08-30 09:14 | Gastroenterology Progress Note ---
Progress Note Date of Service: Aug 30, 2017 Subjective Pt evaluation today including: conversation w/ patient, physical exam, chart review, lab review Pt seen and evaluated, chart reviewed. NPO for EGD/Colon. Completed nearly 75% of his prep. Is having liquid, clear stools. No black/blood with prep. No fever , chills, CP, SOB. Review of Systems Constitutional: No fever, No chills Respiratory: No cough, No shortness of breath Cardiac: No chest pain, No edema Abdomen: No pain, No nausea, No vomiting, No diarrhea, No GI bleeding Medications Current Inpatient Medications Medications (Trade) Dose Ordered Sig/Min Route Start Time Stop Time Status Last Admin Dose Admin Acetaminophen (Tylenol Tab) 650 mg Q4H PRN PO 08/29/17 01:15 09/28/17 01:14 Al Hydrox/Mg Hydrox/Simethicone (Maalox Max Susp) 15 ml Q4H PRN PO 08/29/17 01:15 09/28/17 01:14 Ondansetron HCl (Zofran Inj) 4 mg Q6H PRN IV 08/29/17 01:15 09/28/17 01:14 Nitroglycerin (Nitrostat Tab) 0.4 mg UD PRN SL 08/29/17 01:15 09/28/17 01:14 Polyethylene (Miralax Powder Packet) 17 gm DAILY PRN PO 08/29/17 01:15 09/28/17 01:14 Ferrous Sulfate (Feosol Tab) 325 mg QAM PO 08/29/17 09:00 09/28/17 08:59 08/29/17 11:52 325 MG Pantoprazole Sodium 40 mg/ Syringe 10 ml @ 5 mls/min DAILY@09,21 IV 08/29/17 02:30 09/01/17 09:01 08/30/17 08:23 5 MLS/MIN Piperacillin Sod/ Tazobactam Sod 4.5 gm/Dextrose 120 ml @ 28.75 mls/ hr Q8H IV 08/29/17 12:00 09/08/17 11:59 08/30/17 04:04 28.75 MLS/HR Miscellaneous Information (Consult) 1 ea UD PRN N/A 08/29/17 07:00 09/28/17 06:59 Objective Vital Signs Date Time Temp Pulse Resp B/P (MAP) Pulse Ox O2 Delivery O2 Flow Rate FiO2 08/30/17 06:48 36.9 68 18 123/69 (87) 95 Room Air 08/30/17 04:20 36.7 85 18 91/53 (66) 96 Room Air 08/30/17 04:00 100 Room Air 08/30/17 00:01 100 Room Air 08/29/17 23:16 36.6 69 17 114/70 (85) 98 Room Air 08/29/17 20:00 100 Room Air 08/29/17 19:20 36.9 80 22 129/67 (87) 100 08/29/17 16:10 36.6 78 20 122/73 (89) 90 08/29/17 16:00 Room Air 08/29/17 12:00 100 Room Air 08/29/17 11:40 36.6 79 16 110/70 (83) 99 Room Air Physical Exam General Appearance: no apparent distress Eyes: PERRL ENT: hearing grossly normal Neck: supple Respiratory/Chest: lungs clear Cardiovascular: regular rate, rhythm Abdomen: normal bowel sounds, non tender, soft Extremities: non-tender Neurologic/Psych: alert, normal mood/affect, oriented x 3 Laboratory Results Last 24 Hours Test 08/29/17 13:57 08/29/17 21:57 08/30/17 06:13 Hemoglobin 8.0 g/dL 8.6 g/dL 7.2 g/dL Hematocrit 23.8 % 24.9 % 20.8 % Sodium Level 140 mmol/L 143 mmol/L Potassium Level 4.1 mmol/L 3.8 mmol/L Chloride Level 107 mmol/L 111 mmol/L Carbon Dioxide Level 25 mmol/L 27 mmol/L Anion Gap 7.0 mmol/L 5.0 mmol/L Blood Urea Nitrogen 30 mg/dl 23 mg/dl Creatinine 1.92 mg/dl 1.86 mg/dl Est Creatinine Clear Calc Drug Dose 53.7 ml/min 54.8 ml/min Estimated GFR () 42.0 43.6 Estimated GFR (Non- 36.2 37.7 BUN/Creatinine Ratio 15.8 12.5 Random Glucose 109 mg/dl 93 mg/dl Calcium Level 8.5 mg/dl 8.0 mg/dl Phosphorus Level 3.2 mg/dl Albumin 2.8 gm/dl White Blood Count 2.50 K/uL Red Blood Count 2.17 M/uL Mean Corpuscular Volume 95.9 fL Mean Corpuscular Hemoglobin 33.2 pg Mean Corpuscular Hemoglobin Concent 34.6 g/dl Platelet Count 51 K/uL Mean Platelet Volume 8.2 fL Neutrophils (%) (Auto) 51.6 % Lymphocytes (%) (Auto) 29.2 % Monocytes (%) (Auto) 14.0 % Eosinophils (%) (Auto) 4.8 % Basophils (%) (Auto) 0.4 % Neutrophils # (Auto) 1.29 K/uL Lymphocytes # (Auto) 0.73 K/uL Monocytes # (Auto) 0.35 K/uL Eosinophils # (Auto) 0.12 K/uL Basophils # (Auto) 0.01 K/uL RDW Standard Deviation 56.9 fL RDW Coefficient of Variation 16.6 % Immature Granulocyte % (Auto) 0.0 % Immature Granulocyte # (Auto) 0.00 K/uL Platelet Estimate DECREASED Red Blood Cell Morphology Unremarkable Magnesium Level 2.0 mg/dl Thyroid Stimulating Hormone (TSH) 4.250 uIu/ml Free Thyroxine 0.77 ng/dl Assessment and Plan Patient is a 62 year old male, with anemia, occult positive stool with a hx of cirrhosis w/ previous similar presentation in April. He does not have any gross GI bleeding but does have dark stools on iron. His chronic anemia is consistent with that expected with NAFLD cirrhosis, perhaps portal hypertensive gastropathy NPO for EGD/Colon I have seen and examined the patient with BRENDA Redmond whose note reflects our findings and plan. EGD and colonoscopy today.
[2017-08-30] MEDS ORDERED: PROPOFOL IV EMULSION 10 MG/ML 20 ML VIAL ONE ×2 (09:31→10:47)
[2017-08-30] MEDS ORDERED: ONDANSETRON INJ 2 MG/ML 2 ML VIAL ONE (10:21)
[2017-08-30] MEDS ORDERED: LIDOCAINE HCL 2% 2 ML VIAL (20MG/ML) ONE (10:21)
--- NOTE | 2017-08-30 10:52 | GI REPORT ---
Patient Name: Sebastian Quiñonez Procedure Date: 08/30/2017 10:00 AM Date of : 1955 Admit Type: Inpatient Age: 62 Gender: Male Attending MD: Virgen Banks DO Procedure: Upper GI endoscopy Providers: Virgen Banks DO Referring MD: Norris Truong Indications: anemia Medicines: Propofol per Anesthesia Complications: No immediate complications. Estimated blood loss: None. Estimated Blood Loss: Estimated blood loss: none. Procedure: Pre-Anesthesia Assessment: - Prior to the procedure, a History and Physical was performed, and patient medications, allergies and sensitivities were reviewed. The patient's tolerance of previous anesthesia was reviewed. - The risks and benefits of the procedure and the sedation options and risks were discussed with the patient. All questions were answered and informed consent was obtained. - Patient identification and proposed procedure were verified prior to the procedure by the physician and the nurse. The procedure was verified in the pre-procedure area in the procedure room. - Mental Status Examination: alert and oriented. Airway Examination: normal oropharyngeal airway and neck mobility. Respiratory Examination: clear to auscultation. CV Examination: normal. Abdominal Examination: bowel sounds present, abdomen soft and non-tender, no masses or organomegaly noted. - ASA Grade Assessment: III - A patient with severe systemic disease. After obtaining informed consent, the endoscope was passed under direct vision. Throughout the procedure, the patient's blood pressure, pulse, and oxygen saturations were monitored continuously. The scope was introduced through the mouth, and advanced to the second part of duodenum. The upper GI endoscopy was accomplished without difficulty. The patient tolerated the procedure well. Findings: The esophagus was normal. Minimal inflammation characterized by erythema was found in the gastric antrum. The examined duodenum was normal. Impression: - Normal esophagus. - Mild gastritis. This is not the source of anemia. - Normal examined duodenum. - No specimens collected. Recommendation: - Perform a colonoscopy tomorrow. Virgen Banks D.O. Virgen Banks DO 08/30/2017 10:51:40 AM This report has been signed electronically. Note Initiated On: 08/30/2017 10:00 AM Number of Addenda: 0 I attest to the content of the Intraoperative Record and orders documented therein, exceptions below {[id number]}
--- NOTE | 2017-08-30 10:57 | GI REPORT ---
Patient Name: Sebastian Quiñonez Procedure Date: 08/30/2017 9:59 AM Date of : 1955 Admit Type: Inpatient Age: 62 Gender: Male Attending MD: Virgen Banks DO Procedure: Colonoscopy Providers: Virgen Banks DO Referring MD: Norris Truong Indications: anemia Medicines: Propofol per Anesthesia Complications: No immediate complications. Estimated blood loss: None. Estimated Blood Loss: Estimated blood loss: none. Procedure: Pre-Anesthesia Assessment: - Prior to the procedure, a History and Physical was performed, and patient medications, allergies and sensitivities were reviewed. The patient's tolerance of previous anesthesia was reviewed. - The risks and benefits of the procedure and the sedation options and risks were discussed with the patient. All questions were answered and informed consent was obtained. - Patient identification and proposed procedure were verified prior to the procedure by the physician and the nurse. The procedure was verified in the pre-procedure area in the procedure room. - Mental Status Examination: alert and oriented. Airway Examination: normal oropharyngeal airway and neck mobility. Respiratory Examination: clear to auscultation. CV Examination: normal. Abdominal Examination: bowel sounds present, abdomen soft and non-tender, no masses or organomegaly noted. - ASA Grade Assessment: III - A patient with severe systemic disease. After I obtained informed consent, the scope was passed under direct vision. Throughout the procedure, the patient's blood pressure, pulse, and oxygen saturations were monitored continuously. The scope was introduced through the anus and advanced to the terminal ileum. The colonoscopy was performed without difficulty. The patient tolerated the procedure well. The quality of the bowel preparation was good. Findings: The perianal and digital rectal examinations were normal. Pertinent negatives include normal sphincter tone and no palpable rectal lesions. The terminal ileum appeared normal. A few medium-sized angioectasias without bleeding were found in the transverse colon and in the ascending colon. Coagulation for tissue destruction using argon plasma was successful. Estimated blood loss: none. A few small and large-mouthed diverticula were found in the sigmoid colon. The retroflexed view of the distal rectum and anal verge was normal and showed no anal or rectal abnormalities. Impression: - The examined portion of the ileum was normal. - A few non-bleeding colonic angioectasias. Treated with argon plasma coagulation (APC). - Diverticulosis in the sigmoid colon. - The distal rectum and anal verge are normal on retroflexion view. - No specimens collected. Recommendation: - Return patient to [facility] for ongoing care. - Resume prior diet per hospitalist service. Virgen Banks D.O. Virgen Banks, 08/30/2017 10:56:41 AM This report has been signed electronically. Note Initiated On: 08/30/2017 9:59 AM Number of Addenda: 0 I attest to the content of the Intraoperative Record and orders documented therein, exceptions below {[id number]}
--- NOTE | 2017-08-30 11:19 | Anesthesiology Progress Note ---
Anesthesia Post Op Note Date & Time Aug 30, 2017 at 11:19 Vital Signs Pain Intensity: 0.0 Vital Signs Past 12 Hours Date Time Temp Pulse Resp B/P (MAP) Pulse Ox O2 Delivery O2 Flow Rate FiO2 08/30/17 11:16 67 18 109/50 (69) 100 Room Air 08/30/17 11:12 70 18 97/57 (70) 99 Room Air 08/30/17 11:02 71 18 88/65 (73) 100 Room Air 08/30/17 10:53 75 18 96/47 (63) 97 Room Air 08/30/17 09:55 36.9 67 18 120/72 (88) 98 Room Air 08/30/17 08:00 100 Room Air 08/30/17 06:48 36.9 68 18 123/69 (87) 95 Room Air 08/30/17 04:20 36.7 85 18 91/53 (66) 96 Room Air 08/30/17 04:00 100 Room Air 08/30/17 00:01 100 Room Air Notes Mental Status: alert / awake / arousable, participated in evaluation Pt Amnestic to Procedure: Yes Nausea / Vomiting: adequately controlled Pain: adequately controlled Airway Patency, RR, SpO2: stable & adequate BP & HR: stable & adequate Hydration State: stable & adequate Anesthetic Complications: no major complications apparent
--- NOTE | 2017-08-30 13:13 | Progress Note ---
Internal Med Progress Note Date of Service: Aug 30, 2017. Provider Documentation: SUBJECTIVE: Seen and examined at bedside Patient and EGD/Colonoscopy today Patient concerned that he might be developing fluid in Extremities again Denies chest pain, SOB, abdominal pain, dysuria OBJECTIVE: Vital Signs-as noted below Physical Exam: General Appearance:Obese, no apparent distress Head: normocephalic, Atraumatic Eyes: normal inspection, EOMI, PERRL Neck: supple, Trachea midline Respiratory/Chest: Normal breath sounds, CTA Cardiovascular: S1, S2, No murmur Abdomen/GI:Soft, Non tender, Bowel sounds present Extremities/Musculoskelatal:normal inspection, 1+ b/l edema Neurologic/Psych:AAOX3, grossly no focal neurological deficits Skin: normal color, warm Lab data as noted below. 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 left renal artery is poorly visualized Peripheral smear:Anemia of uncertain etiology. Possibly multifactorial due to liver and kidney disease. Monitor I/Os, Renal function Hold Lisinopril for now Lasix PRN to maintain negative balance Avoid Nephrotoxic agents as able H/O posttraumatic urethral stricture S/P surgery and currently off suprapubic catheter No voiding issues H/O cirrhosis 2/2 NAFLD Chronic Thrombocytopenia: Monitor Platelets Will obtain old records Abnormal UA: H/O UTI Continue Abx empirically Urine culture pending Elevated TSH and Low Free T4: repeat labs near normal Advise to get repeat blood work as outpatient Hypertension: stable Hold lisinopril H/O psoriatic arthropathy On Humira twice monthly DVT Px: SCDs Re: Anemia, Thrombocytopenia Code Status: Full Code Disposition: Monitor in Tele Vital Signs: Date Time Temp Pulse Resp B/P (MAP) Pulse Ox O2 Delivery O2 Flow Rate FiO2 08/30/17 11:16 67 18 109/50 (69) 100 Room Air 08/30/17 11:12 70 18 97/57 (70) 99 Room Air 08/30/17 11:02 71 18 88/65 (73) 100 Room Air 08/30/17 10:53 75 18 96/47 (63) 97 Room Air 08/30/17 09:55 36.9 67 18 120/72 (88) 98 Room Air 08/30/17 08:00 100 Room Air 08/30/17 06:48 36.9 68 18 123/69 (87) 95 Room Air 08/30/17 04:20 36.7 85 18 91/53 (66) 96 Room Air 08/30/17 04:00 100 Room Air 08/30/17 00:01 100 Room Air 08/29/17 23:16 36.6 69 17 114/70 (85) 98 Room Air 08/29/17 20:00 100 Room Air 08/29/17 19:20 36.9 80 22 129/67 (87) 100 08/29/17 16:10 36.6 78 20 122/73 (89) 90 08/29/17 16:00 Room Air Lab Results: Results Past 24 Hours Test 08/29/17 13:57 08/29/17 21:57 08/30/17 06:13 08/30/17 12:23 Range/Units Hemoglobin 8.0 8.6 7.2 14.0-18.0 g/dL Hematocrit 23.8 24.9 20.8 42-52 % Sodium Level 140 143 136-145 mmol/L Potassium Level 4.1 3.8 3.5-5.1 mmol/L Chloride Level 107 111 98-107 mmol/L Carbon Dioxide Level 25 27 21-32 mmol/L Anion Gap 7.0 5.0 3-11 mmol/L Blood Urea Nitrogen 30 23 7-18 mg/dl Creatinine 1.92 1.86 0.60-1.40 mg/dl Est Creatinine Clear Calc Drug Dose 53.7 54.8 ml/min Estimated GFR () 42.0 43.6 Estimated GFR (Non- 36.2 37.7 BUN/Creatinine Ratio 15.8 12.5 10-20 Random Glucose 109 93 70-99 mg/dl Calcium Level 8.5 8.0 8.5-10.1 mg/dl Phosphorus Level 3.2 2.5-4.9 mg/dl Albumin 2.8 3.4-5.0 gm/dl White Blood Count 2.50 4.8-10.8 K/uL Red Blood Count 2.17 4.7-6.1 M/uL Mean Corpuscular Volume 95.9 80-100 fL Mean Corpuscular Hemoglobin 33.2 25-34 pg Mean Corpuscular Hemoglobin Concent 34.6 32-36 g/dl Platelet Count 51 130-400 K/uL Mean Platelet Volume 8.2 7.4-10.4 fL Neutrophils (%) (Auto) 51.6 % Lymphocytes (%) (Auto) 29.2 % Monocytes (%) (Auto) 14.0 % Eosinophils (%) (Auto) 4.8 % Basophils (%) (Auto) 0.4 % Neutrophils # (Auto) 1.29 1.4-6.5 K/uL Lymphocytes # (Auto) 0.73 1.2-3.4 K/uL Monocytes # (Auto) 0.35 0.11-0.59 K/uL Eosinophils # (Auto) 0.12 0-0.5 K/uL Basophils # (Auto) 0.01 0-0.2 K/uL RDW Standard Deviation 56.9 36.4-46.3 fL RDW Coefficient of Variation 16.6 11.5-14.5 % Immature Granulocyte % (Auto) 0.0 % Immature Granulocyte # (Auto) 0.00 0.00-0.02 K/uL Platelet Estimate DECREASED Red Blood Cell Morphology Unremarkable Magnesium Level 2.0 1.8-2.4 mg/dl Thyroid Stimulating Hormone (TSH) 4.250 0.300-4.500 uIu/ml Free Thyroxine 0.77 0.80-1.60 ng/dl Bedside Glucose 123 70-99 mg/dl
[2017-08-30] MEDS ORDERED: FUROSEMIDE 20 MG TAB PO ONE (13:15)
--- NOTE | 2017-08-30 18:23 | Nephrology Progress Note ---
Nephrology Progress Note Date of Service Aug 30, 2017. Chief Complaint COLLIN Subjective No acute events overnight. Colonoscopy and upper endoscopy completed without complications. Sebastian feels edema is again improving after a dose of furosemide. He overall feels well. He denies any signs of bleeding. Activity tolerance is good. He hopes to be discharged home. Review of Systems A complete review of systems was performed. Pertinent positives are noted above. All other systems are negative. Vital Signs Last 8 Hrs Date Time Temp Pulse Resp B/P (MAP) Pulse Ox O2 Delivery O2 Flow Rate FiO2 08/30/17 16:09 36.4 66 18 118/78 (91) 99 08/30/17 16:00 100 Room Air 08/30/17 11:16 67 18 109/50 (69) 100 Room Air 08/30/17 11:12 70 18 97/57 (70) 99 Room Air 08/30/17 11:02 71 18 88/65 (73) 100 Room Air 08/30/17 10:53 75 18 96/47 (63) 97 Room Air I & O 24-Hour Column 08/31/17 08:00 Intake Total 426 ml Balance 426 ml Last Recorded Weight Weight (Kilograms): 135.900 Physical Exam General Appearance: no apparent distress, + obese Head: normocephalic, atraumatic Eyes: normal inspection, sclerae normal ENT: normal ENT inspection, pharynx normal Neck: supple, no JVD Respiratory/Chest: lungs clear, no respiratory distress, no accessory muscle use Cardiovascular: regular rate, rhythm, no gallop Abdomen/GI: non tender, soft Extremities/Musculoskelatal: normal inspection, + pedal edema, + pertinent finding Neurologic/Psych: alert, normal mood/affect Family History Cancer Diabetes mellitus Heart disease Hypertension Kidney disease Kidney stones Lung disease Social History Drug Use: none Marital Status: Housing Status: lives with family Occupation: unemployed Laboratory Results Past 24 Hours 08/29/17 21:57 08/30/17 06:13 Red Blood Count 2.17, Mean Corpuscular Volume 95.9, Mean Corpuscular Hemoglobin 33.2, Mean Corpuscular Hemoglobin Concent 34.6, Mean Platelet Volume 8.2, Neutrophils (%) (Auto) 51.6, Lymphocytes (%) (Auto) 29.2, Monocytes (%) (Auto) 14.0, Eosinophils (%) (Auto) 4.8, Basophils (%) (Auto) 0.4, Neutrophils # (Auto ) 1.29, Lymphocytes # (Auto) 0.73, Monocytes # (Auto) 0.35, Eosinophils # (Auto ) 0.12, Basophils # (Auto) 0.01 08/30/17 06:13 Test 08/30/17 06:13 08/30/17 12:23 White Blood Count 2.50 K/uL (4.8-10.8) Red Blood Count 2.17 M/uL (4.7-6.1) Hemoglobin 7.2 g/dL (14.0-18.0) Hematocrit 20.8 % (42-52) Mean Corpuscular Volume 95.9 fL (80-100) Mean Corpuscular Hemoglobin 33.2 pg (25-34) Mean Corpuscular Hemoglobin Concent 34.6 g/dl (32-36) Platelet Count 51 K/uL (130-400) Mean Platelet Volume 8.2 fL (7.4-10.4) Neutrophils (%) (Auto) 51.6 % Lymphocytes (%) (Auto) 29.2 % Monocytes (%) (Auto) 14.0 % Eosinophils (%) (Auto) 4.8 % Basophils (%) (Auto) 0.4 % Neutrophils # (Auto) 1.29 K/uL (1.4-6.5) Lymphocytes # (Auto) 0.73 K/uL (1.2-3.4) Monocytes # (Auto) 0.35 K/uL (0.11-0.59) Eosinophils # (Auto) 0.12 K/uL (0-0.5) Basophils # (Auto) 0.01 K/uL (0-0.2) RDW Standard Deviation 56.9 fL (36.4-46.3) RDW Coefficient of Variation 16.6 % (11.5-14.5) Immature Granulocyte % (Auto) 0.0 % Immature Granulocyte # (Auto) 0.00 K/uL (0.00-0.02) Platelet Estimate DECREASED Red Blood Cell Morphology Unremarkable Anion Gap 5.0 mmol/L (3-11) Est Creatinine Clear Calc Drug Dose 54.8 ml/min Estimated GFR () 43.6 Estimated GFR (Non- 37.7 BUN/Creatinine Ratio 12.5 (10-20) Calcium Level 8.0 mg/dl (8.5-10.1) Magnesium Level 2.0 mg/dl (1.8-2.4) Thyroid Stimulating Hormone (TSH) 4.250 uIu/ml (0.300-4.500) Free Thyroxine 0.77 ng/dl (0.80-1.60) Bedside Glucose 123 mg/dl (70-99) Allergies Coded Allergies: Tamsulosin (Verified Allergy, Mild, HIVES, 04/04/17) Medications Current Inpatient Medications Medications (Trade) Dose Ordered Sig/Min Route Start Time Stop Time Status Last Admin Dose Admin Acetaminophen (Tylenol Tab) 650 mg Q4H PRN PO 08/29/17 01:15 09/28/17 01:14 Al Hydrox/Mg Hydrox/Simethicone (Maalox Max Susp) 15 ml Q4H PRN PO 08/29/17 01:15 09/28/17 01:14 Ondansetron HCl (Zofran Inj) 4 mg Q6H PRN IV 08/29/17 01:15 09/28/17 01:14 Nitroglycerin (Nitrostat Tab) 0.4 mg UD PRN SL 08/29/17 01:15 09/28/17 01:14 Polyethylene (Miralax Powder Packet) 17 gm DAILY PRN PO 08/29/17 01:15 09/28/17 01:14 Ferrous Sulfate (Feosol Tab) 325 mg QAM PO 08/29/17 09:00 09/28/17 08:59 08/29/17 11:52 325 MG Pantoprazole Sodium 40 mg/ Syringe 10 ml @ 5 mls/min DAILY@21 IV 08/29/17 02:30 09/01/17 09:01 08/30/17 08:23 5 MLS/MIN Piperacillin Sod/ Tazobactam Sod 4.5 gm/Dextrose 120 ml @ 28.75 mls/ hr Q8H IV 08/29/17 12:00 09/08/17 11:59 08/30/17 13:32 28.75 MLS/HR Miscellaneous Information (Consult) 1 ea UD PRN N/A 08/29/17 07:00 09/28/17 06:59 Impression (1) COLLIN (acute kidney injury) (2) CKD (chronic kidney disease), stage III (3) 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 (4) Anemia (5) Peripheral edema Mr. Sebastian Quiñonez is a 62-year-old male with obesity, SERRANO cirrhosis, hypertension, psoriatic arthritis, recurrent nephrolithiasis, recurrent UTI, spinal stenosis, OA/DJD, history of urethral reconstruction and CKD. Baseline creatinine reported at ~1.9 mg/dL consistent with CKD III. History includes multiple episodes of COLLIN. COLLIN in March attributed to ATN in the setting of enterococcus infection. In July, the patient had COLLIN attributed to prerenal physiology related to diuretic use for lower extremity edema. He has been using furosemide PRN for edema since that time. Renal ultrasound documented asymmetry but there was no evidence of FORTUNATO on duplex. Kidney function has now been stable. Metabolic profile is otherwise acceptable. Liver enzymes remains stable. BP and volume status are currently appropriate. I would suggest furosemide 20 mg Q other day for edema (or PRN). Recommendations -- Continue to hold lisinopril -- Furosemide 20 mg Q other day -- Repeat metabolic profile within 1 week of discharge (results faxed to my office at [phone]) -- Hematology follow up consultation is strongly encouraged -- Nephrology will sign off now, a follow up visit in my office has been requested for 2 weeks -- Please call with any additional questions or concerns
[2017-08-30 20:15] LABS: HEMATOCRIT 22.9 % (42-52); HEMOGLOBIN 7.9 g/dL (14.0-18.0)
[2017-08-31] MEDS: PIPERACILL/TAZOBAC IV 4.5 GM in DEXTROSE 5% 100ML 100 ML IV SCH (03:42)
[2017-08-31 03:48] VITALS: BP 94/53; PULSE 71; TEMP 36.4; O2SAT 98
[2017-08-31 07:20] VITALS: BP 126/64; PULSE 71; TEMP 36.6; O2SAT 98
[2017-08-31 07:22] LABS: CALCIUM 8.3 mg/dl (8.5-10.1); CREATININE 1.9 mg/dl (0.60-1.40); POTASSIUM 3.4 mmol/L (3.5-5.1)
[2017-08-31 07:51] LABS: HEMATOCRIT 21.3 % (42-52); HEMOGLOBIN 7.2 g/dL (14.0-18.0); MEAN CELL VOLUME 96.4 fL (80-100); MEAN CORPUSCULAR HEMOGLOBIN 32.6 pg (25-34); MEAN CORPUSCULAR HGB CONC 33.8 g/dl (32-36); RED CELL DISTRIBUTION WIDTH CV 16.2 % (11.5-14.5); RED CELL DISTRIBUTION WIDTH SD 57.2 fL (36.4-46.3); WHITE BLOOD COUNT 2.55 K/uL (4.8-10.8)
[2017-08-31 07:52] LABS: MEAN PLATELET VOLUME 9.6 fL (7.4-10.4); PLATELET COUNT 54 K/uL (130-400)
[2017-08-31] MEDS: FERROUS SULFATE 325 MG TAB PO SCH (08:09)
[2017-08-31 08:29] LABS: BASO % 0.4 %; BASO ABS # 0.01 K/uL (0-0.2); EOS % 5.9 %; EOS ABS # 0.15 K/uL (0-0.5); LYMPH % 30.6 %; LYMPH ABS # 0.78 K/uL (1.2-3.4); MONO % 12.5 %; MONO ABS # 0.32 K/uL (0.11-0.59); NEUT % 50.6 %; NEUT ABS # 1.29 K/uL (1.4-6.5)
[2017-08-31] MEDS: PANTOprazole INJ 40 MG in SYRINGE 0 ML IV SCH (09:30)
--- NOTE | 2017-08-31 10:25 | Progress Note ---
Internal Med Progress Note Date of Service: Aug 31, 2017. Provider Documentation: SUBJECTIVE: Seen and examined at bedside No bleeding issues Had EGD/Colonoscopy yesterday Discussed with GI today Denies chest pain, SOB, abdominal pain, dysuria Eager to get discharged OBJECTIVE: Vital Signs-as noted below Physical Exam: General Appearance:Obese, no apparent distress Head: normocephalic, Atraumatic Eyes: normal inspection, EOMI, PERRL Neck: supple, Trachea midline Respiratory/Chest: Normal breath sounds, CTA Cardiovascular: S1, S2, No murmur Abdomen/GI:Soft, Non tender, Bowel sounds present Extremities/Musculoskelatal:normal inspection, 1+ b/l edema Neurologic/Psych:AAOX3, grossly no focal neurological deficits Skin: normal color, warm Lab data as noted below. 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 left renal artery is poorly visualized Peripheral smear:Anemia of uncertain etiology. Possibly multifactorial due to liver and kidney disease. Monitor I/Os, Renal function Hold Lisinopril upon discharge until FU with Nephrology as outpatient Avoid Nephrotoxic agents as able H/O posttraumatic urethral stricture S/P surgery and currently off suprapubic catheter No voiding issues H/O cirrhosis 2/2 NAFLD Chronic Thrombocytopenia: Monitor Platelets Will obtain old records Abnormal UA: H/O UTI DC Abx Denies Dysuria Elevated TSH and Low Free T4: repeat labs near normal Advise to get repeat blood work as outpatient Hypertension: stable Hold lisinopril H/O psoriatic arthropathy On Humira twice monthly DVT Px: SCDs Re: Anemia, Thrombocytopenia Code Status: Full Code Disposition: Plan to discharge home today Follow up with your PCP Dionne LEMA in 1 week as advised Follow up with your Cat Cracker Operator in 2 weeks Follow up with your Painting Technician in 1-2 weeks as advised Continue to hold taking Lisinopril until follow up with your Cat Cracker Operator as advised Get Blood test (Basic metabolic Panel) in 1 week and follow up with your Cat Cracker Operator and results faxed to office at [phone] Seek immediate medical attention if your symptoms reoccur or worsen Vital Signs: Date Time Temp Pulse Resp B/P (MAP) Pulse Ox O2 Delivery O2 Flow Rate FiO2 08/31/17 08:00 Room Air 08/31/17 07:20 36.6 71 20 126/64 (84) 98 Room Air 08/31/17 03:48 36.4 71 22 94/53 (67) 98 Room Air 08/30/17 23:52 37.0 67 20 101/44 (63) 98 Room Air 08/30/17 20:00 Room Air 08/30/17 19:25 36.8 70 18 98/63 (75) 95 08/30/17 16:09 36.4 66 18 118/78 (91) 99 08/30/17 16:00 100 Room Air 08/30/17 11:16 67 18 109/50 (69) 100 Room Air 08/30/17 11:12 70 18 97/57 (70) 99 Room Air 08/30/17 11:02 71 18 88/65 (73) 100 Room Air 08/30/17 10:53 75 18 96/47 (63) 97 Room Air Lab Results: Results Past 24 Hours Test 08/30/17 12:23 08/30/17 19:55 08/31/17 06:21 Range/Units Bedside Glucose 123 70-99 mg/dl Hemoglobin 7.9 7.2 14.0-18.0 g/dL Hematocrit 22.9 21.3 42-52 % White Blood Count 2.55 4.8-10.8 K/uL Red Blood Count 2.21 4.7-6.1 M/uL Mean Corpuscular Volume 96.4 80-100 fL Mean Corpuscular Hemoglobin 32.6 25-34 pg Mean Corpuscular Hemoglobin Concent 33.8 32-36 g/dl Platelet Count 54 130-400 K/uL Mean Platelet Volume 9.6 7.4-10.4 fL Neutrophils (%) (Auto) 50.6 % Lymphocytes (%) (Auto) 30.6 % Monocytes (%) (Auto) 12.5 % Eosinophils (%) (Auto) 5.9 % Basophils (%) (Auto) 0.4 % Neutrophils # (Auto) 1.29 1.4-6.5 K/uL Lymphocytes # (Auto) 0.78 1.2-3.4 K/uL Monocytes # (Auto) 0.32 0.11-0.59 K/uL Eosinophils # (Auto) 0.15 0-0.5 K/uL Basophils # (Auto) 0.01 0-0.2 K/uL RDW Standard Deviation 57.2 36.4-46.3 fL RDW Coefficient of Variation 16.2 11.5-14.5 % Immature Granulocyte % (Auto) 0.0 % Immature Granulocyte # (Auto) 0.00 0.00-0.02 K/uL Red Blood Cell Morphology Unremarkable Sodium Level 142 136-145 mmol/L Potassium Level 3.4 3.5-5.1 mmol/L Chloride Level 109 98-107 mmol/L Carbon Dioxide Level 28 21-32 mmol/L Anion Gap 5.0 3-11 mmol/L Blood Urea Nitrogen 19 7-18 mg/dl Creatinine 1.90 0.60-1.40 mg/dl Est Creatinine Clear Calc Drug Dose 53.4 ml/min Estimated GFR () 42.5 Estimated GFR (Non- 36.7 BUN/Creatinine Ratio 9.9 10-20 Random Glucose 93 70-99 mg/dl Calcium Level 8.3 8.5-10.1 mg/dl Magnesium Level 2.0 1.8-2.4 mg/dl
[2017-08-31] MEDS ORDERED: FURO-85 PO (10:30)
--- NOTE | 2017-08-31 10:33 | Discharge Summary ---
Discharge Summary Date of Service Aug 31, 2017. Discharge Summary Admission Date: Aug 29, 2017 at 01:10 Discharge Date: Aug 31, 2017 Discharge Disposition: Home Principal Diagnosis: Symptomatic Anemia, COLLIN Procedures: CXR: Cardiomegaly with mild volume overload. No santino pulmonary edema. Renal Duplex: Extremely limited exam. No gross evidence of right renal artery stenosis. The left renal artery is poorly visualized and it is difficult to confirm patency. If there is continuing clinical concern, noncontrast MRA could be considered. Consultations: GI, Nephrology Pending Studies/Follow-Up: Follow up with your PCP Dionne LEMA in 1 week as advised Follow up with your Air Conditioning Service Technician in 2 weeks Follow up with your Soaking Pit Operator in 1-2 weeks as advised Continue to hold taking Lisinopril until follow up with your Air Conditioning Service Technician as advised Get Blood test (Basic metabolic Panel) in 1 week and follow up with your Air Conditioning Service Technician and results faxed to office at [phone] Get TSH, Free T4 in 4-6 weeks and follow up with your doctor with results Seek immediate medical attention if your symptoms reoccur or worsen Medication Reconciliation New Medications: Furosemide (Lasix) 20 Mg Tab 20 MG PO Q48H for 30 Days, #30 TAB Continued Medications: Adalimumab (Humira) 20 Mg/0.4 Ml Kit 20 MG INJ Q2WEEK Ferrous Sulfate (Iron) 325 Mg Tab 325 MG PO QAM Omeprazole (Prilosec) 20 Mg Capcr 20 MG PO QAM Admission Information HPI (per Admitting provider): CHIEF COMPLAINT: Lower extremity edema. 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 -had previous meatotomy with no success,had suprapubic catheter placement for about 3 yrs and pt recently underwent Urethral reconstruction surgery on 03/07/17 at [facility] by Urology Dr Hernandez and patient was discharged with the Madrigal catheter and suprapubic catheter and postsurgical visit on mar 29 2017, his Madrigal was discontinued and he was supposed to follow again for removal of suprapubic catheter, but he presented to the [facility] on apr 04 with high fevers and chills with lower abdominal pain and found to be in septic shock from UTI with enterococci. He has a prolonged hospital stay and was discharged with IV ampicillin, completed course of antibiotics, and followed with urology at [facility] and suprapubic catheter is removed. Currently, he is urinating ok from his urethra.. At that time, he was found to have liver cirrhosis mostly from SERRANO and followed with GI and supposed to get EGD in November.During last admission he also presented with a creatinine of 6 and improved with treatment of septic shock and discharge creatinine is 1.9, supposed to follow with labs with PCP. He is also following with nephrology, Dr. Finn Lopez and his last outpatient labs from April showed creatinine of 1.7. The patient presents today because of his worsening lower extremity edema. The patient states he has lower extremity edema since about a year. Over last few days, it is getting worsened . As kidney functions are getting worsened and his director global sales advised not to take any Lasix. His lisinopril was also stopped . The patient says as he is not making any urine for last 2 days and since lower extremity is getting worse, he took a couple of dose of Lasix but it didnot helped. He is urinating fine since he came to the ER. In the ER, he was found to have hemoglobin of 6.4. Also complains of some dizziness and some headaches. Denies any blurred vision, no earache, no runny nose, no sore throat and difficulty swallowing. No chest pain, no shortness of breath, no cough, no nausea, no abdominal pain. Otherwise, he is feeling fine. No blood in the urine. No blood in the stools. There is some black stool, but he takes iron pills. Currently, resting comfortable and hemodynamically stable. Physical Exam (per Admitting): PHYSICAL EXAMINATION: GENERAL: The patient is obese, not in distress. VITAL SIGNS: Temperature 36.6, pulse 83, respiratory rate 14, blood pressure 113/69, oxygen saturation 98% on room air. HEENT: No pallor, no icterus. Pupils equal, round, and react to light. NECK: No JVD, no neck mass, no carotid bruit. CARDIOVASCULAR: S1, S2 heard, regular rate and rhythm, no murmur, no gallop. RESPIRATORY SYSTEM: Clear to auscultation bilaterally. No wheezing, no crackles. ABDOMEN: Soft, bowel sounds present. Nontender. No distention. CENTRAL NERVOUS SYSTEM: Cranial nerves II-XII grossly intact. Nonfocal. EXTREMITIES: Lower extremity gross edema present. No erythema seen. Hospital Course Symptomatic Anemia: Presented with Hb: 6.4 Has dark colored stools; on Iron supplements S/P 2 units PRBCs Monitor H&H, Transfuse PRBCs PRN Continue IV Protonix>>>>PO Protonix 40mg daily Colonoscopy:Non bleeding colonic angiectasias (treated), Sigmoid Diverticulosis EGD: Mild gastritis Appreciate GI input Avoid NSAIDs Obtain old records from his Soaking Pit Operator Lower extremity edema: mostly secondary to liver cirrhosis and CKD Last ECHO EF:55-60% His diuretics were held 2/2 renal failure prior to admission Continue Lasix every other day Nephrology on board 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:Resolved Baseline creatinine is around 1.9 Renal Duplex: No gross evidence of right renal artery stenosis. left renal artery is poorly visualized Peripheral smear:Anemia of uncertain etiology. Possibly multifactorial due to liver and kidney disease. Monitor I/Os, Renal function Hold Lisinopril upon discharge until FU with Nephrology as outpatient Avoid Nephrotoxic agents as able H/O posttraumatic urethral stricture S/P surgery and currently off suprapubic catheter No voiding issues H/O cirrhosis 2/2 NAFLD Chronic Thrombocytopenia: Monitor Platelets Will obtain old records Abnormal UA: H/O UTI DC Abx Denies Dysuria Elevated TSH and Low Free T4: repeat labs near normal Advise to get repeat blood work as outpatient Hypertension: stable Hold lisinopril H/O psoriatic arthropathy On Humira twice monthly DVT Px: SCDs Re: Anemia, Thrombocytopenia Code Status: Full Code Disposition: Plan to discharge home today Follow up with your PCP Dionne LEMA in 1 week as advised Follow up with your Air Conditioning Service Technician in 2 weeks Follow up with your Soaking Pit Operator in 1-2 weeks as advised Continue to hold taking Lisinopril until follow up with your Air Conditioning Service Technician as advised Get Blood test (Basic metabolic Panel) in 1 week and follow up with your Air Conditioning Service Technician and results faxed to office at [phone] Seek immediate medical attention if your symptoms reoccur or worsen Total time spent on discharge = 34 minutes This includes examination of the patient, discharge planning, medication reconciliation, and communication with other providers. Discharge Instructions Discharge Instructions Date of Service Aug 31, 2017. Admission Reason for Admission: Anemia, Peripheral Edema Discharge Discharge Diagnosis / Problem: Symptomatic Anemia, COLLIN Discharge Goals Goal(s): Decrease discomfort, Improve function Activity Recommendations Activity Limitations: resume your previous activity Exercise/Sports Limitations: as tolerated . Instructions / Follow-Up Instructions / Follow-Up Follow up with your PCP Dionne LEMA in 1 week as advised Follow up with your Air Conditioning Service Technician in 2 weeks Follow up with your Soaking Pit Operator in 1-2 weeks as advised Continue to hold taking Lisinopril until follow up with your Air Conditioning Service Technician as advised Get Blood test (Basic metabolic Panel) in 1 week and follow up with your Air Conditioning Service Technician and results faxed to office at [phone] Get TSH, Free T4 in 4-6 weeks and follow up with your doctor with results Seek immediate medical attention if your symptoms reoccur or worsen Current Hospital Diet Patient's current hospital diet: Clear Liquid Diet, Low Sodium Diet (2gm Na) Discharge Diet Recommended Diet: Renal Diet Procedures Procedures Performed: EGD/COLONOSCOPY Pending Studies Studies pending at discharge: no Medical Emergencies . Who to Call and When: Medical Emergencies: If at any time you feel your situation is an emergency, please call 911 immediately. . Non-Emergent Contact Non-Emergency issues call your: Primary Care Provider, Air Conditioning Service Technician Call Non-Emergent contact if: you have a fever, your pain is not controlled, your pain is worsening, your pain is unusual for you, your pain is concerning you, you have any medication questions Seek immediate medical attention if your symptoms reoccur or worsen . . "Provider Documentation" section prepared by Mart Carroll. .
[2017-08-31 10:34] VITALS: BP 126/64; PULSE 71; TEMP 36.6; O2SAT 98
== END 2017-08-31 10:43 | disposition home or self-care (01) | DRG 683 ==
LOC: C.EDB 21:07 → C.2T 08-29 01:10 → ENRESERV 08-29 01:31 → C.2T 08-29 17:58
PROVIDERS: ADMIT Internal Medicine; ATTEND Internal Medicine
PROC: 0DJ08ZZ Inspection of Upper Intestinal Tract, Via Natural or Artificial Opening Endoscopic (ICD-10-PCS; principal; 2017-08-30 10:15)
PROC: 0W3P8ZZ Control Bleeding in Gastrointestinal Tract, Via Natural or Artificial Opening Endoscopic (ICD-10-PCS; 2017-08-30 10:15)
DX: N17.9 Acute kidney failure, unspecified (principal); Z68.42 Body mass index [BMI] 45.0-49.9, adult; D64.9 Anemia, unspecified; E78.5 Hyperlipidemia, unspecified; L40.59 Other psoriatic arthropathy; N18.3 Chronic kidney disease, stage 3 (moderate); K75.81 Nonalcoholic steatohepatitis (NASH); K74.60 Unspecified cirrhosis of liver; Z88.8 Allergy status to other drugs, medicaments and biological substances; Z87.891 Personal history of nicotine dependence; R60.0 Localized edema; I10 Essential (primary) hypertension; E66.9 Obesity, unspecified

== ENCOUNTER → 2017-09-05 | Outpatient (CLI) | payer OTHER ==
[~2017-09-05] MED LIST changes: +ADAL20KI INJ; -AMPICILLIN; -CHLO0.122 PO; -FRS/40 PO; +FURO-85 PO; -POTA10CA28 PO; +PRLSR20 PO; -SENN-65 PO
[2017-09-05 13:33] LABS: BLOOD UREA NITROGEN 14 mg/dl (7-18); CALCIUM 8.5 mg/dl (8.5-10.1); CARBON DIOXIDE 30 mmol/L (21-32); CREATININE 1.57 mg/dl (0.60-1.40); GLUCOSE 110 mg/dl (70-99); POTASSIUM 3.6 mmol/L (3.5-5.1); SODIUM 138 mmol/L (136-145)
--- NOTE | 2017-09-13 11:20 | CODING QUERY NO DIAGNOSIS ---
TREATMENT RENDERED WITHOUT A DIAGNOSIS To promote full compliance with coding requirements relating to patient care, physician participation is requested in all cases of fashion show director uncertainty. Please assist us with providing a diagnosis/symptom for the test(s) below: A diagnosis/symptom was not documented on your Order. A valid diagnosis/symptom is required to bill all insurances. Please remember that we are unable to code a diagnosis of rule out, probable, possible, questionable, or suspected. Tests that require a diagnosis: DOS: 09/05/17 * PARTIAL RENAL PROFILE DIAGNOSIS: Provider Signature: Date: Thank you Kellen Weathers [employer] Information Management Once completed, please kindly fax back to [phone] For questions please call [phone]
== END | disposition home or self-care (01) ==
LOC: C.LABPBG 09:02
PROVIDERS: ATTEND Internal Medicine
DX: Z01.89 Encounter for other specified special examinations (principal)

== ENCOUNTER 2018-11-06 14:02 | Inpatient (IN) ==
[2018-11-06] MEDS ORDERED: SODIUM CHLORIDE 0.9% 1000ML 1,000 ML IV STA (14:06)
[2018-11-06] MEDS ORDERED: ONDANSETRON INJ 2 MG/ML 2 ML VIAL IV STA (14:08)
[2018-11-06] MEDS ORDERED: HYDROmorphone INJ 0.5 MG/0.5 ML SYR IV PRN (14:08)
[2018-11-06] MEDS ORDERED: ACETAMINOPHEN 500 MG TAB PO STA (14:08)
[2018-11-06] MEDS ORDERED: PIPERACILL/TAZOBAC CONSULT ACTIVE PRN ×2 (14:10→19:57)
[2018-11-06] MEDS ORDERED: PIPERACILLIN/TAZOBACTAM 4.5 GM/120 ML BAG IV ONE (14:10)
[2018-11-06] MEDS ORDERED: DAPTOmycin 500 MG in SYRINGE 0 ML IV STA (14:10)
[2018-11-06] MEDS ORDERED: SODIUM CHLORIDE 0.9% 500 ML IV SCH (14:15)
--- NOTE | 2018-11-06 14:30 | XRay Report ---
XR chest 1V portable CLINICAL HISTORY: fever COMPARISON STUDY: 08/28/2017 FINDINGS: The heart is at the upper limits of normal in size. There is no failure. There is no focal pulmonary consolidation. There are no pleural effusions.[ IMPRESSION: No active disease in the chest. Electronically signed by: Joe Israel M.D. 11/06/2018 2:28 PM
[2018-11-06 14:37] LABS: Hemoglobin 12.1 g/dL (14.0-18.0); Mean Corpuscular Hgb Conc 34.6 g/dL (32-36); Mean Corpuscular Volume 99.4 fL (80-100); Mean Platelet Volume 9.3 fL (7.4-10.4); Platelet Count 45 K/uL (130-400); RDW Coefficient of Variation 16.2 % (11.5-14.5); RDW Standard Deviation 58.5 fL (36.4-46.3); Red Blood Count 3.52 M/uL (4.7-6.1); White Blood Count 1.65 K/uL (4.8-10.8)
[2018-11-06 14:38] LABS: Alanine Aminotransferase 26 U/L (12-78); Albumin Level 2.8 gm/dl (3.4-5.0); Aspartate Aminotransferase 58 U/L (15-37); BUN Creatinine Ratio 9.4 (10-20); Blood Urea Nitrogen 13 mg/dl (7-18); Carbon Dioxide 25 mmol/L (21-32); Chloride 109 mmol/L (98-107); Creatinine Clr Calc Pharmacy 71.6 ml/min; Est GFR (African American) 62.2; Est GFR (Non-African American) 53.6; Glucose 123 mg/dl (70-99); Potassium 3.8 mmol/L (3.5-5.1); Sodium 141 mmol/L (136-145)
[2018-11-06 14:39] LABS: Basophils # (auto) 0.01 K/uL (0-0.2); Basophils % (auto) 0.6 %; Eosinophils # (auto) 0.05 K/uL (0-0.5); Lymphocytes % (auto) 12.1 %; Monocytes # (auto) 0.01 K/uL (0.11-0.59); Monocytes % (auto) 0.6 %; Neutrophils # (auto) 1.38 K/uL (1.4-6.5); Neutrophils % (auto) 83.7 %; Platelet Estimate Decreased (Normal)
[2018-11-06 14:43] LABS: Albumin Globulin Ratio 0.6 (0.9-2); Alkaline Phosphatase 130 U/L (45-117); Globulin 4.8 gm/dl (2.5-4.0); Total Protein 7.6 gm/dl (6.4-8.2); Troponin I < 0.015 ng/ml (0-0.045)
[2018-11-06 15:09] LABS: Appearance Urine Cloudy (Clear); Bacteria Urine Automated 1+ (Negative); Bilirubin Urine Negative (Negative); Blood Urine 3+ (Negative); Color Urine Orange; Epithelial Cell Urine Auto >30 /lpf (0-5); Glucose Urine UA Negative (Negative); Ketones Urine Negative (Negative); Leukocyte Esterase Urine 1+ (Negative); Nitrite Urine Positive (Negative); RBC Urine Automated >30 /hpf (0-4); Specific Gravity Urine 1.014 (1.000-1.030); Urobilinogen Urine Negative (Negative); pH Urine 7.5 (4.5-7.5)
[2018-11-06 15:15] LABS: Protein Urine 1+ (Negative)
[2018-11-06] MEDS ORDERED: SODIUM CHLORIDE 0.9% 1000ML 1,000 ML IV ONE (16:06)
--- NOTE | 2018-11-06 16:07 | CT Scan Report ---
CT SCAN OF THE ABDOMEN AND PELVIS WITHOUT IV CONTRAST CLINICAL HISTORY: Sepsis. COMPARISON STUDY: Abdominal CT dated 04/04/2017. TECHNIQUE: CT scan of the abdomen and pelvis is performed from the lung bases to the proximal femora. Images are reviewed in the axial, sagittal, and coronal planes. IV contrast was not administered for this examination as per the referring clinician. Note that the examination was performed in suboptim al fashion without IV contrast. A dose lowering technique was utilized adhering to the principles of ALARA. CT DOSE: 1581.72 mGy.cm FINDINGS: Lung bases: The heart is normal in size and without pericardial effusion. The lung bases are clear no ting mild bibasilar atelectasis. Liver: The unenhanced liver is cirrhotic in morphology and heterogeneous in attenuation. There is nod ularity of the hepatic surface contour, as well as hypertrophy of the left lobe and caudate. There is no intrahepatic biliary ductal dilatation. Gallbladder: Surgically absent noting clips in the gallbladder fossa. Spleen: The spleen is enlarged, measuring 17 cm in length. Pancreas: The unenhanced pancreas is atrophic and grossly unremarkable. Adrenal glands: Unremarkable. Kidneys: The unenhanced kidneys demonstrate cortical atrophy and are without hydronephrosis. There ar e least 2 small nonobstructing left renal calculi which measure up to 2 mm. There is no evidence of c ontour deforming renal mass lesion. Abdominal vasculature: The abdominal aorta is normal in course and caliber noting mild atheroscleroti c calcification. Bowel: The small bowel and colon are normal in course and caliber. The appendix is not identified an d reported surgically absent. Peritoneum: There is no intraperitoneal free air. Trace free fluid is noted around the liver and in t he pelvis. Lymphadenopathy: None. Pelvic viscera: The bladder wall appears mildly thickened and there is pericystic inflammation. The p rostate gland is diminutive and heterogeneous. Skeletal structures: The skeletal structures are osteopenic. Mild lumbosacral spondylosis is observed . No lytic or blastic lesions are seen. IMPRESSION: 1. Question cystitis. Correlation with clinical findings and urinalysis will be required. 2. Cirrhotic liver morphology. 3. Splenomegaly and trace abdominopelvic ascites indicate portal hypertension. 4. Left-sided nephrolithiasis. 5. Additional findings as above. Electronically signed by: Edward Foreman M.D. 11/06/2018 4:05 PM
--- NOTE | 2018-11-06 17:24 | History & Physical Report ---
Date of Service November 06, 2018 Assessment & Plan (1) Sepsis: (2) UTI (urinary tract infection): Pt is 63 y/o M with PMH Urethral stricture, h/o reconstructive surgery, CKD, liver cirrhosis secondary to Heaton, psoriatic arthritis, HTN, chronic anemia presented to ER with complaint of fever. Patient states yesterday started with chills and this morning noticed fever. States yesterday noticed dark and foul- smelling urine. Patient with history urinary sepsis 03/2017 requiring ICU admiss ion. Patient with history of reconstructive urethral surgery in 02/2017 at [facility]. Has not had suprapubic catheter since. Patient states since surgery has not had any UTIs and is able to urinate on his own. Follows with Dr Guzman urology. In ER T: 39.6, P: 119, R: 30, BP: 179/76, 97% on RA. WBC: 1.6 (was 3.4 in 04/2018), POC lactic acid: 2.3, UA: +nitrite, 1+ leuk esterase, 10-30 WBC, >30 RBC, 1+bacteria, >30 epithelial Meets SIRS criteria. -In ER given Tylenol 1000mg po, Zofran, Zosyn, Daptomycin, total 1500ml NSS -Blood cultures, urine culture pending -Trend lactate -IVF -Zosyn, Daptomycin -ID consult -Check CK -Consider urology consult if no improvement -Monitor CBC, BMP (3) Pancytopenia: WBC: 1.6 (was 3.4 in 04/2018), H/H: 12/35 (hgb 8.4 in 04/2018), Plt: 45 (was 94) Hx chronic anemia, Pt reports hx IV iron infusion at [facility] - Dr Alas, last being approx 5 months ago. -Monitor CBC (4) CKD (chronic kidney disease), stage III: Follows with Dr Martinez - nephrology Cr: 1.38 (Cr: 1.32 in 04/2018) -Avoid nephrotoxic agents when possible -Monitor renal functions (5) Hypertension: Off BP meds for approx one year -Monitor BP (6) 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: -Monitor LFTs (7) Psoriatic arthritis: Off Humira since 2018 DVT Prophylaxis -SCDs secondary to thrombocytopenia Full Code as per discussion with pt Follows with Todd Truong PA-C in [place] for routine care family contacts [phone] son Renny [phone] daughter Kianna [phone] Pt was seen and care coordinated with Dr Ribeiro. See addendum History of Present Illness Chief Complaint: Fever Primary Care Provider: Norris Truong Pt is 63 y/o M with PMH Urethral stricture, h/o reconstructive surgery, CKD, liver cirrhosis secondary to He[place], psoriatic arthritis, HTN, chronic anemia presented to ER with complaint of fever. Patient states yesterday started with chills and this morning noticed fever. States yesterday noticed dark and foul- smelling urine. Patient with history urinary sepsis 03/2017 requiring ICU admis edilberto. Patient with history of reconstructive urethral surgery in 02/2017 at [facility] [place]. Has not had suprapubic catheter since. Patient states since surgery has not had any UTIs and is able to urinate on his own. States sometimes urine stream is not very strong however is still able to urinate. Patient reports chronic low back pain greater to the left side in past has had injections to back, has not had any for several months. Denies any increased back pain. Also reports chronic intermittent lower abdominal pain occurs with movement x several years. Denies hematuria, urinary retention. Denies diaphoresis, N/V/D/C, HOOK, dizziness, syncope, vision changes, neck pain, CP, SOB, orthopnea, palpitations, cough, sore throat, choking, otalgia, rhinorrhea, paresthesias, weakness, extremity weakness, extremity edema, rashes. Allergies Allergy/AdvReac Type Severity Reaction Status Date / Time tamsulosin Allergy Intermediate HIVES Verified 11/06/18 14:46 Home Medications Home Medications Medication Instructions Recorded Confirmed Type acetaminophen 500 mg tablet 1,000 mg PO DIRECTED PRN tab 10/16/18 11/06/18 History furosemide 20 mg tablet 20 mg PO DIRECTED PRN #30 tab 10/16/18 11/06/18 History Past Med/Surg History Medical History Hypertension (Chronic) HX History of blood clots (Chronic) "BLOOD CLOT GOING INTO LIVER" Hypothyroidism (Chronic) GERD (gastroesophageal reflux disease) (Chronic) Fatty liver (Chronic) Kidney stones (Chronic) Psoriatic arthritis (Chronic) Spinal stenosis (Chronic) EPIDURAL INJECTIONS IN PAST FOR PAIN RELIEF Herniated disc (Chronic) LUMBAR AREA Anemia (Chronic) COLLIN (acute kidney injury) (Resolved) CKD (chronic kidney disease), stage III (Chronic) 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 (Chronic) Septicemia due to enterococcus (Resolved) Surgical History History of cataract surgery (Chronic) RT/LEFT History of tooth extraction (Chronic) History of appendectomy (Chronic) History of cholecystectomy (Chronic) History of herniorrhaphy (Chronic) History of colonoscopy (Chronic) History of esophagogastroduodenoscopy (EGD) (Chronic) History of liver biopsy (Chronic) Suprapubic catheter (Resolved) AND REMOVAL History of lithotripsy (Chronic) Nausea and vomiting after administration of anesthetic agent (Resolved) History of arthroscopy (Chronic) RT KNEE History of repair of rotator cuff (Chronic) RT/LEFT Neuroma (Chronic) REMOVED FROM RT/LEFT FOOT Family History Grandmother (Maternal) Family history of diabetes mellitus Social History Preferred Language: Colombian Communication Ability: Effective Recruiter Required: No Beliefs That Will Affect Care: None Current Living Situation: Spouse Feels Safe at Home: Yes Smoking Status: Never smoker Second Hand Exposure: No ; Hx Alcohol Use: No Hx Substance Use: No Review of Systems Review of Systems: All systems reviewed & are unremarkable except as noted in HPI & below Physical Exam Physical Exam: General: no acute distress, non-toxic appearance, obese Head: normocephalic, atraumatic Eyes: PERRL, EOM's intact, conjunctiva non-injected, anicteric ENT: normal inspection external ears, nose, mucous membranes dry Neck: supple, trachea midline Lungs: clear, no respiratory distress, no wheezing/rhonchi/rales CV: RRR, no murmur, no JVD, no pretibial edema Abd: normal BS, soft, non-tender; no CVA tenderness to percussion Ext: no cyanosis, no calf tenderness Neuro: A&O x 3, no focal deficits noted, normal affect Skin: warm, dry Results & Data Vital Signs (Past 12 Hours) Vital Signs Temp Pulse Resp BP Pulse Ox 11/06/18 16:43 118 H 20 106/57 L 97 11/06/18 16:39 117 H 36 H 99/75 L 96 11/06/18 16:30 116 H 28 H 99/59 L 95 11/06/18 16:00 126 H 31 H 100/71 95 11/06/18 15:36 39.1 C H 11/06/18 15:30 116 H 23 145/75 H 95 11/06/18 14:08 117 H 36 H 179/76 H 95 11/06/18 14:02 39.6 C H 119 H 30 H 179/76 H 97 Laboratory Results Short CBC 11/06/18 Range/Units 13:35 WBC 1.65 L (4.8-10.8) K/uL Hgb 12.1 L (14.0-18.0) g/dL Hct 35.0 L (42-52) % Plt Count 45 L (130-400) K/uL BMP 11/06/18 13:35 Sodium 141 Potassium 3.8 Chloride 109 H Carbon Dioxide 25 BUN 13 Creatinine 1.38 Glucose 123 H Calcium 9.0 Cardiac Enzymes 11/06/18 Range/Units 13:35 Troponin I < 0.015 (0-0.045) ng/ml Liver Function 11/06/18 Range/Units 13:35 Total Bilirubin 2.0 H (0.2-1) mg/dl AST 58 H (15-37) U/L ALT 26 (12-78) U/L Alkaline Phosphatase 130 H (45-117) U/L Albumin 2.8 L (3.4-5.0) gm/dl Urine 11/06/18 Range/Units 14:48 Urine Color [place] Urine Appearance Cloudy A (Clear) Urine pH 7.5 (4.5-7.5) Ur Specific [place] 1.014 (1.000-1.030) Urine Protein 1+ H (Negative) Urine Glucose (UA) Negative (Negative) Diagnostic Findings CT ABD/PELVIS: IMPRESSION: 1. Question cystitis. Correlation with clinical findings and urinalysis will be required. 2. Cirrhotic liver morphology. 3. Splenomegaly and trace abdominopelvic ascites indicate portal hypertension. 4. Left-sided nephrolithiasis. 5. Additional findings as above. CXR: IMPRESSION: No active disease in the chest. Code Status & VTE Plan VTE Prophylaxis Plan VTE Prophylaxis will be ordered: Yes Supervising Physician Co-Signing Physician Notes I have been following the patient in the emergency room with physician social work assistant and agree with the assessment and plan as above and would like to comment that Patient is currently being treated for sepsis. Heart rates were initially as high as 120s. After IV fluids and IV antibiotics, heart rates have trended down to low 100s. patient looking well in appearance despite heart rates and has been mentating at baseline. Lactic acid did trend up from 2.3 to 3.5. When patient moved up to medical [place], will continue with IV antibiotics and IV fluids. Patient is a very large male with weight of 128.1 kg and BMI of 41.7 (OBESITY WITH BMI 47.1 IN AN ADULT) so fluid resuscitation should not be based on total body weight. Given history of liver cirrhosis, will be adjusting IV fluids based on clinical exam to avoid pulmonary edema. otherwise agree with assessment and plan as per documented by physician social work assistant On exam general: no acute distress Lungs: clear to auscultation bilaterally at this time Cardiac: tachycardia to low 100s at this time Abdomen: truncal obesity, abdomen is soft, bowel sounds present Extremities: no gross edema currently On the day of admission, patient admitted by I, Dr. Ribeiro, and then will be further monitored overnight by night time medical Dr. Ling and starting on 11/07/18 will be followed by hospitalist Dr. Fu (1) UTI (urinary tract infection) Hematuria presence: with hematuria Urinary tract infection type: site unspecified Qualified Code(s): N39.0 - Urinary tract infection, site not specified; R31.9 - Hematuria, unspecified (2) Sepsis Sepsis acute organ dysfunction status: unspecified Sepsis type: sepsis due to unspecified organism Qualified Code(s): A41.9 - Sepsis, unspecified organism
[2018-11-06] MEDS ORDERED: SODIUM CHLORIDE 0.9% 1000ML 500 ML IV ONE (18:30)
[2018-11-06] MEDS ORDERED: CONSULT PHARMACY STA (19:40)
[2018-11-06] MEDS ORDERED: ACETAMINOPHEN 325 MG TAB PO PRN ×2 (19:40→20:01)
[2018-11-06] MEDS ORDERED: SODIUM CHLORIDE 0.9% 1000ML 1,000 ML IV SCH ×2 (19:40→22:30)
[2018-11-06] MEDS ORDERED: ONDANSETRON INJ 2 MG/ML 2 ML VIAL IV PRN (19:40)
[2018-11-06] MEDS ORDERED: DAPTOMYCIN CONSULT ACTIVE PRN (19:57)
[2018-11-06] MEDS: PIPERACILLIN/TAZOBACTAM 3.375 GM in DEXTROSE 5% 100 ML IV SCH (21:14)
[2018-11-06] MEDS: PANTOprazole 40 MG TAB PO SCH (23:02)
--- NOTE | 2018-11-06 23:07 | Emergency Department Note ---
Entered by Khari Ferrari acting as a scribe for Bao Evans MD ED Provider Note CHIEF COMPLAINT: Lower back pain HISTORY OF PRESENT ILLNESS: The patient is a 63 year old male who presents to the Emergency Room with complaints of lower back pain and a fever that began last night. The last time the patient was septic was a couple of years ago. The patient does not have a catheter; however, he previosuly had a catheter for three years. He has no urinary symptoms. The patient also complains of lower back pain, he states the pain is similar to his urinary infections in the past. The patient states he took two Tylenol pills 6 hours ago. Per the patient, he has been having some trouble breathing which has since resolved. The patient has spinal stenosis. The patient rates his pain as an 8 out of 10 in severity. Per EMS, his temperature was 103. The patient has not been out of the country in the last 30 days. Pt denies LOC, diaphoresis, visual changes, neck pain, chest pain, vomiting, melena, hematochezia, urinary symptoms, numbness, lymphadenopathy, rash, or other complaints. REVIEW OF SYSTEMS: See HPI for pertinent positives and negatives. A total of ten systems were reviewed and were otherwise negative. PMHx/PSHx: Anemia, COLLIN, CKD, sepsis SOCIAL HISTORY: Patient lives at home. PHYSICAL EXAM: GENERAL: Awake, alert, uncomfortable appearing, in no distress HENT: Normocephalic, atraumatic. Oropharynx unremarkable. EYES: PERRL. Normal conjunctiva. Sclera non-icteric. NECK: Inspection normal. Non-tender. Supple. No nuchal rigidity. FROM. No masses. RESPIRATORY: Clear to auscultation. No wheezes. No rales. Normal respiratory effort. CARDIAC: Tachycardic rate. Normal rhythm. No murmurs. No rubs. Extremities warm and well perfused. Pulses equal. No JVD. GI: Soft, non-distended. No tenderness to palpation. No rebound or guarding. No masses. RECTAL: Deferred. MUSCULOSKELETAL: Atraumatic. Chest examination reveals no tenderness. The back is symmetrical on inspection without obvious abnormality. CVA tenderness to palpation bilaterally. No joint edema. LOWER EXTREMITIES: Calves are equal size bilaterally and non-tender. 1+ edema bilaterally. No discoloration. NEURO: Normal sensorium. No sensory or motor deficits noted. SKIN: No rash or jaundice noted. EMERGENCY DEPARTMENT COURSE: 1403: Past medical records reviewed. The patient was evaluated in room B11B, and a complete history and physical examination were performed. 1550: I updated the patient on his test results as well as the treatment plan. 1407: I spoke to Artem Heller PA-C under Dr. Ribeiro, about the patients case who agreed to accept the patient for further evaluation. 1425: The patient was admitted. MEDICAL DECISION MAKING: B11 Prior records/ancillary studies reviewed. The patient was admitted for sepsis in March of last year. Triage Nursing notes reviewed and agree them. Additional history obtained from the family. The patient's history was concerning for possible infection. Differential diagnosis: Etiologies such as sepsis, UTI, pneumonia, electrolyte abnormalities, cardiac sources, intracerebral event, toxicologic, neurologic, as well as others were entertained. Physical examination: As above. No hypotension. The patient was tachycardic. He had CVA tenderness. ER treatment provided: IV fluid resuscitation 1 l normal saline and 125 mL an hour IV Blood and urine cultures Antibiotics: Zosyn and daptomycin On reassessment the patient felt improved.. Diagnostics interpretation by me: ECG: Sinus tachycardia The labs revealed pancytopenia on CBC. Chemistry panel unremarkable except a renal insufficiency. The patient had a urinalysis very concerning for infection. Blood and urine cultures pending. The patient's lactate was mildly elevated. Imaging studies: CT scan of pelvis was concerning for cystitis. No hydronephrosis noted. Patient is exhibiting signs of sepsis from urinary source. Antibiotics were administered aggressively. The patient was hydrated. He was not hypotensive. No shock present. He will need admission to the hospital. Consultation: A consultation was placed with the hospitalist. The case was discussed and diagnostics were reviewed. The patient was evaluated in the ER for further treatment. IMPRESSION: Sepsis, UTI PLAN: Further management by hospitalist The scribe's documentation has been prepared under my direction and personally reviewed by me in its entirety. I confirm that the note above accurately reflects all work, treatment, procedures, and medical decision making performed by me. CRITICAL CARE: I have personally spent greater than 30 minutes of critical care time in the direct management of this patient. This includes bedside care, interpretation of diagnostic studies, and testing, discussion with consultants, patient, and family members, and other required patient management activities. This 30 minutes is in excess of all separately billable procedures. Impression & Plan Sepsis, UTI (urinary tract infection) Past Med/Surg History Medical History Hypertension (Chronic) HX History of blood clots (Chronic) "BLOOD CLOT GOING INTO LIVER" Hypothyroidism (Chronic) GERD (gastroesophageal reflux disease) (Chronic) Fatty liver (Chronic) Kidney stones (Chronic) Psoriatic arthritis (Chronic) Spinal stenosis (Chronic) EPIDURAL INJECTIONS IN PAST FOR PAIN RELIEF Herniated disc (Chronic) LUMBAR AREA Anemia (Chronic) COLLIN (acute kidney injury) (Resolved) CKD (chronic kidney disease), stage III (Chronic) 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 (Chronic) Septicemia due to enterococcus (Resolved) Surgical History History of cataract surgery (Chronic) RT/LEFT History of tooth extraction (Chronic) History of appendectomy (Chronic) History of cholecystectomy (Chronic) History of herniorrhaphy (Chronic) History of colonoscopy (Chronic) History of esophagogastroduodenoscopy (EGD) (Chronic) History of liver biopsy (Chronic) Suprapubic catheter (Resolved) AND REMOVAL History of lithotripsy (Chronic) Nausea and vomiting after administration of anesthetic agent (Resolved) History of arthroscopy (Chronic) RT KNEE History of repair of rotator cuff (Chronic) RT/LEFT Neuroma (Chronic) REMOVED FROM RT/LEFT FOOT Family History Grandmother (Maternal) Family history of diabetes mellitus Social History Preferred Language: Ukrainian Communication Ability: Effective Instrument Engineer Required: No Beliefs That Will Affect Care: None Current Living Situation: Spouse Other Information That Helps Us Care for You: No Feels Safe at Home: Yes Safety Concerns: Feels Safe At This Time Smoking Status: Never smoker Do You Dip or Chew Tobacco: No (quit 35 years ago) ; Second Hand Exposure: No ; Hx Alcohol Use: No Hx Substance Use: No Results & Data Vital Signs Vital Signs - 24 hr 11/06/18 14:02 11/06/18 14:08 11/06/18 15:30 Temperature 39.6 C H Temperature Source Oral Sepsis Recent Fever Within 48 Hours Yes Sepsis New/Unexplained Change in Mental Status No Sepsis Action Taken by Nursing Physician Notified Pulse Rate 119 H 117 H 116 H Pulse Rate from SpO2 Sensor 117 H 116 H Pulse Rhythm Regular Respiratory Rate 30 H 36 H 23 Respiratory Effort / Characteristics Non-Labored Respiratory Depth Normal Respiratory Pattern Regular Blood Pressure 179/76 H 179/76 H 145/75 H Blood Pressure Mean 110 110 98 Pulse Oximetry 97 95 95 Oxygen Delivery Method Room Air Room Air Room Air 11/06/18 15:36 11/06/18 16:00 11/06/18 16:30 Temperature 39.1 C H Temperature Source Oral Sepsis Recent Fever Within 48 Hours Sepsis New/Unexplained Change in Mental Status Sepsis Action Taken by Nursing Pulse Rate 126 H 116 H Pulse Rate from SpO2 Sensor 126 H 116 H Pulse Rhythm Respiratory Rate 31 H 28 H Respiratory Effort / Characteristics Respiratory Depth Respiratory Pattern Blood Pressure 100/71 99/59 L Blood Pressure Mean 80 72 Pulse Oximetry 95 95 Oxygen Delivery Method Room Air Room Air 11/06/18 16:39 11/06/18 16:43 11/06/18 17:00 Temperature Temperature Source Sepsis Recent Fever Within 48 Hours Sepsis New/Unexplained Change in Mental Status Sepsis Action Taken by Nursing Pulse Rate 117 H 118 H 124 H Pulse Rate from SpO2 Sensor 118 H 118 H 124 H Pulse Rhythm Respiratory Rate 36 H 20 24 Respiratory Effort / Characteristics Respiratory Depth Respiratory Pattern Blood Pressure 99/75 L 106/57 L 107/53 L Blood Pressure Mean 83 73 71 Pulse Oximetry 96 97 96 Oxygen Delivery Method Room Air Room Air Room Air Home Medications Current Medication List: was personally reviewed by nc Laboratory Data Attestation: I reviewed the patient's lab results. Result diagrams: 11/06/18 13:35 11/06/18 13:35 Lab Results 11/06/18 11/06/18 11/06/18 Range/Units 13:35 13:35 13:35 WBC 1.65 L (4.8-10.8) K/uL RBC 3.52 L (4.7-6.1) M/uL Hgb 12.1 L (14.0-18.0) g/dL Hct 35.0 L (42-52) % MCV 99.4 (80-100) fL MCH 34.4 H (25-34) pg MCHC 34.6 (32-36) g/dL RDW Std Deviation 58.5 H (36.4-46.3) fL RDW Coeff of Miguel 16.2 H (11.5-14.5) % Plt Count 45 L (130-400) K/uL MPV 9.3 (7.4-10.4) fL Immature Gran % (Auto) 0.0 % Neut % (Auto) 83.7 % Lymph % (Auto) 12.1 % Alcorn % (Auto) 0.6 % Eos % (Auto) 3.0 % Baso % (Auto) 0.6 % Immature Gran # (Auto) 0.00 (0.00-0.02) K/uL Neut # (Auto) 1.38 L (1.4-6.5) K/uL Lymph # (Auto) 0.20 L (1.2-3.4) K/uL Alcorn # (Auto) 0.01 L (0.11-0.59) K/uL Eos # (Auto) 0.05 (0-0.5) K/uL Baso # (Auto) 0.01 (0-0.2) K/uL Platelet Estimate Decreased L (Normal) ESR 61 H (0-14) mm/hr Sodium 141 (136-145) mmol/L Potassium 3.8 (3.5-5.1) mmol/L Chloride 109 H (98-107) mmol/L Carbon Dioxide 25 (21-32) mmol/L Anion Gap 7.0 (3-11) BUN 13 (7-18) mg/dl Creatinine 1.38 (0.6-1.4) mg/dl Est Cr Clr Drug Dosing 71.6 ml/min Est GFR ( Amer) 62.2 Est GFR (Non-Af Amer) 53.6 BUN/Creatinine Ratio 9.4 L (10-20) Glucose 123 H (70-99) mg/dl POC Lactic Acid Salas (0.90-1.70) mmol/L Calcium 9.0 (8.5-10.1) mg/dl Total Bilirubin 2.0 H (0.2-1) mg/dl AST 58 H (15-37) U/L ALT 26 (12-78) U/L Alkaline Phosphatase 130 H (45-117) U/L Total Creatine Kinase (39-308) U/L Troponin I < 0.015 (0-0.045) ng/ml Total Protein 7.6 (6.4-8.2) gm/dl Albumin 2.8 L (3.4-5.0) gm/dl Globulin 4.8 H (2.5-4.0) gm/dl Albumin/Globulin Ratio 0.6 L (0.9-2) Lipase 95 (73-393) U/L Urine Color Urine Appearance (Clear) Urine pH (4.5-7.5) Ur Specific [place] (1.000-1.030) Urine Protein (Negative) Urine Glucose (UA) (Negative) Urine Ketones (Negative) Urine Blood (Negative) Urine Nitrite (Negative) Urine Bilirubin (Negative) Urine Urobilinogen (Negative) Ur Leukocyte Esterase (Negative) Urine WBC (Auto) (0-5) /hpf Urine RBC (Auto) (0-4) /hpf U Hyaline Cast (Auto) (0-5) /lpf U Epithel Cells (Auto) (0-5) /lpf Urine Bacteria (Auto) (Negative) 11/06/18 11/06/18 11/06/18 Range/Units 13:35 14:38 14:48 WBC (4.8-10.8) K/uL RBC (4.7-6.1) M/uL Hgb (14.0-18.0) g/dL Hct (42-52) % MCV (80-100) fL MCH (25-34) pg MCHC (32-36) g/dL RDW Std Deviation (36.4-46.3) fL RDW Coeff of Miguel (11.5-14.5) % Plt Count (130-400) K/uL MPV (7.4-10.4) fL Immature Gran % (Auto) % Neut % (Auto) % Lymph % (Auto) % Alcorn % (Auto) % Eos % (Auto) % Baso % (Auto) % Immature Gran # (Auto) (0.00-0.02) K/uL Neut # (Auto) (1.4-6.5) K/uL Lymph # (Auto) (1.2-3.4) K/uL Alcorn # (Auto) (0.11-0.59) K/uL Eos # (Auto) (0-0.5) K/uL Baso # (Auto) (0-0.2) K/uL Platelet Estimate (Normal) ESR (0-14) mm/hr Sodium (136-145) mmol/L Potassium (3.5-5.1) mmol/L Chloride (98-107) mmol/L Carbon Dioxide (21-32) mmol/L Anion Gap (3-11) BUN (7-18) mg/dl Creatinine (0.6-1.4) mg/dl Est Cr Clr Drug Dosing ml/min Est GFR ( Amer) Est GFR (Non-Af Amer) BUN/Creatinine Ratio (10-20) Glucose (70-99) mg/dl POC Lactic Acid Salas 2.31 H (0.90-1.70) mmol/L Calcium (8.5-10.1) mg/dl Total Bilirubin (0.2-1) mg/dl AST (15-37) U/L ALT (12-78) U/L Alkaline Phosphatase (45-117) U/L Total Creatine Kinase 67 (39-308) U/L Troponin I (0-0.045) ng/ml Total Protein (6.4-8.2) gm/dl Albumin (3.4-5.0) gm/dl Globulin (2.5-4.0) gm/dl Albumin/Globulin Ratio (0.9-2) Lipase (73-393) U/L Urine Color [place] Urine Appearance Cloudy A (Clear) Urine pH 7.5 (4.5-7.5) Ur Specific [place] 1.014 (1.000-1.030) Urine Protein 1+ H (Negative) Urine Glucose (UA) Negative (Negative) Urine Ketones Negative (Negative) Urine Blood 3+ H (Negative) Urine Nitrite Positive A (Negative) Urine Bilirubin Negative (Negative) Urine Urobilinogen Negative (Negative) Ur Leukocyte Esterase 1+ H (Negative) Urine WBC (Auto) 10-30 H (0-5) /hpf Urine RBC (Auto) >30 H (0-4) /hpf U Hyaline Cast (Auto) 1-5 (0-5) /lpf U Epithel Cells (Auto) >30 H (0-5) /lpf Urine Bacteria (Auto) 1+ H (Negative) Administered Medications Acetaminophen (Tylenol) 325 mg PO Q6H PRN PRN Reason: Pain or Fever Stop: 12/06/18 19:39 Last Admin: 11/06/18 22:33 Dose: 325 mg Documented by: [id number] Piperacillin Sod/Tazobactam (Sod 3.375 gm/ Dextrose) 115 mls @ 28.75 mls/hr IV Q8H LUZ; Protocol Stop: 11/16/18 20:59 Last Admin: 11/06/18 21:14 Dose: 28.8 mls/hr Documented by: [id number] Sodium Chloride (Nss 1000ml) 1,000 mls @ 125 mls/hr IV .Q8H LUZ Stop: 11/07/18 10:00 Last Admin: 11/06/18 22:36 Dose: 125 mls/hr Documented by: [id number] Pantoprazole Sodium (Protonix) 40 mg PO QAM LUZ Stop: 12/06/18 19:44 Last Admin: 11/06/18 23:02 Dose: Not Given Documented by: [id number] Discontinued Medications Acetaminophen (Tylenol) 1,000 mg PO NOW STA Stop: 11/06/18 14:09 Last Admin: 11/06/18 14:37 Dose: 1,000 mg Documented by: [id number] Hydromorphone HCl (Dilaudid) 0.5 mg IV Q15M PRN PRN Reason: Pain Stop: 11/20/18 14:07 Last Admin: 11/06/18 14:38 Dose: 0.5 mg Documented by: [id number] Sodium Chloride (Nss 1000ml) 1,000 mls @ 125 mls/hr IV .Q8H STA Stop: 11/06/18 22:05 Last Infusion: 11/06/18 20:01 Dose: 0 mls/hr Documented by: [id number] Admin: 11/06/18 15:28 Dose: 125 mls/hr Documented by: [id number] Sodium Chloride (Nss) 500 mls @ 999 mls/hr IV .Q31M LUZ Stop: 11/06/18 14:45 Last Infusion: 11/06/18 15:27 Dose: 0 mls/hr Documented by: [id number] Admin: 11/06/18 14:38 Dose: 999 mls/hr Documented by: [id number] Piperacillin Sod/Tazobactam Sod (Zosyn) 4.5 gm in 120 mls @ 240 mls/hr IV NOW ONE Stop: 11/06/18 14:39 Last Infusion: 11/06/18 16:07 Dose: 0 mls/hr Documented by: [id number] Admin: 11/06/18 15:33 Dose: 240 mls/hr Documented by: [id number] Daptomycin 500 mg/ Syringe 10 mls @ 5 mls/min IV NOW STA; Protocol Stop: 11/06/18 14:11 Last Admin: 11/06/18 15:28 Dose: 5 mls/min Documented by: [id number] Sodium Chloride (Nss 1000ml) 1,000 mls @ 999 mls/hr IV .Q1H1M ONE Stop: 11/06/18 17:06 Last Infusion: 11/06/18 17:53 Dose: 0 mls/hr Documented by: [id number] Admin: 11/06/18 16:50 Dose: 999 mls/hr Documented by: [id number] Sodium Chloride (Nss 1000ml) 500 mls @ 999 mls/hr IV .Q31M ONE Stop: 11/06/18 19:00 Last Admin: 11/06/18 19:42 Dose: Not Given Documented by: [id number] Sodium Chloride (Nss 1000ml) 1,000 mls @ 125 mls/hr IV .Q8H LUZ Stop: 12/06/18 19:39 Last Infusion: 11/06/18 22:40 Dose: 0 mls/hr Documented by: [id number] Admin: 11/06/18 20:09 Dose: 100 mls/hr Documented by: [id number] Ondansetron HCl (Zofran) 4 mg IV NOW STA Stop: 11/06/18 14:09 Last Admin: 11/06/18 14:38 Dose: 4 mg Documented by: [id number] Imaging Data Radiologist's Impression: Radiology results as stated below per my review and the radiologist's interpretation: XR chest 1V portable CLINICAL HISTORY: fever COMPARISON STUDY: 08/28/2017 FINDINGS: The heart is at the upper limits of normal in size. There is no failure. There is no focal pulmonary consolidation. There are no pleural effusions.[ IMPRESSION: No active disease in the chest. Electronically signed by: Joe Israel M.D. 11/06/2018 2:28 PM Dictated: 11/06/18 1423 Transcribed: 11/06/[address] SCAN OF THE ABDOMEN AND PELVIS WITHOUT IV CONTRAST CLINICAL HISTORY: Sepsis. COMPARISON STUDY: Abdominal CT dated 04/04/2017. TECHNIQUE: CT scan of the abdomen and pelvis is performed from the lung bases to the proximal femora. Images are reviewed in the axial, sagittal, and coronal planes. IV contrast was not administered for this examination as per the referring clinician. Note that the examination was performed in suboptimal fashion without IV contrast. A dose lowering technique was utilized adhering to the principles of ALARA. CT DOSE: 1581.72 mGy.cm FINDINGS: Lung bases: The heart is normal in size and without pericardial effusion. The lung bases are clear noting mild bibasilar atelectasis. Liver: The unenhanced liver is cirrhotic in morphology and heterogeneous in attenuation. There is nodularity of the hepatic surface contour, as well as hypertrophy of the left lobe and caudate. There is no intrahepatic biliary ductal dilatation. Gallbladder: Surgically absent noting clips in the gallbladder fossa. Spleen: The spleen is enlarged, measuring 17 cm in length. Pancreas: The unenhanced pancreas is atrophic and grossly unremarkable. Adrenal glands: Unremarkable. Kidneys: The unenhanced kidneys demonstrate cortical atrophy and are without hydronephrosis. There are least 2 small nonobstructing left renal calculi which measure up to 2 mm. There is no evidence of contour deforming renal mass lesion. Abdominal vasculature: The abdominal aorta is normal in course and caliber noting mild atherosclerotic calcification. Bowel: The small bowel and colon are normal in course and caliber. The appendix is not identified and reported surgically absent. Peritoneum: There is no intraperitoneal free air. Trace free fluid is noted around the liver and in the pelvis. Lymphadenopathy: None. Pelvic viscera: The bladder wall appears mildly thickened and there is pericystic inflammation. The prostate gland is diminutive and heterogeneous. Skeletal structures: The skeletal structures are osteopenic. Mild lumbosacral spondylosis is observed. No lytic or blastic lesions are seen. IMPRESSION: 1. Question cystitis. Correlation with clinical findings and urinalysis will be required. 2. Cirrhotic liver morphology. 3. Splenomegaly and trace abdominopelvic ascites indicate portal hypertension. 4. Left-sided nephrolithiasis. 5. Additional findings as above. Electronically signed by: Edward Foreman M.D. 11/06/2018 4:05 PM ECG Data Attestation: I personally reviewed and interpreted this ECG as follows: Indication: weakness Rate (beats per minute): 124 Findings: + other (poor r wave progression) and + RBBB (incomplete); no PVC and no ST elevation Blood Pressure Blood Pressure Findings: Normal blood pressure Discharge Plan Visit Data *Final* Discharge Date/Time: 11/06/18 18:43 Chief Complaint: Illness ED Provider: Bao Evans Discharge Problem: Sepsis, UTI (urinary tract infection) Patient Disposition: Admitted As Inpatient Discharge Instructions Interventions: ED Discharge Assessment Last Done: 11/06/18 18:43 Discharge Problem: Sepsis Qualifiers: Sepsis type: sepsis due to unspecified organism Sepsis acute organ dysfunction status: unspecified Qualified Code(s): A41.9 - Sepsis, unspecified organism UTI (urinary tract infection) Qualifiers: Urinary tract infection type: site unspecified Hematuria presence: with hematuria Qualified Code(s): N39.0 - Urinary tract infection, site not specified The scribe's documentation has been prepared under my direction and personally reviewed by me in its entirety. I confirm that the note above accurately r eflects all work, treatment, procedures, and medical decision making performed by me.
[2018-11-06] MEDS ORDERED: LACTATED RINGER'S 1,000 ML IV ONE (23:25)
[2018-11-06] MEDS ORDERED: POTASSIUM CHLORIDE 20 MEQ TABCR PO STA (23:29)
[2018-11-06 23:43] LABS: Magnesium 1.7 mg/dl (1.8-2.4)
[2018-11-07] MEDS ORDERED: LACTATED RINGER'S 1,000 ML IV SCH (01:30)
[2018-11-07 02:13] LABS: Hematocrit (blood only) 30.5 % (42-52); Hemoglobin 10.4 g/dL (14.0-18.0); Mean Corpuscular Hgb Conc 34.1 g/dL (32-36); Mean Corpuscular Volume 100.3 fL (80-100); RDW Coefficient of Variation 16.7 % (11.5-14.5); RDW Standard Deviation 61.6 fL (36.4-46.3); Red Blood Count 3.04 M/uL (4.7-6.1); White Blood Count 6.46 K/uL (4.8-10.8)
[2018-11-07 02:25] LABS: Mean Platelet Volume 9.3 fL (7.4-10.4); Platelet Count 33 K/uL (130-400)
[2018-11-07 02:29] LABS: Calcium 7.7 mg/dl (8.5-10.1); Creatinine Clr Calc Pharmacy 54.6 ml/min; Est GFR (African American) 44.8; Est GFR (Non-African American) 38.6; Potassium 3.5 mmol/L (3.5-5.1)
[2018-11-07 02:45] LABS: Basophils # (auto) 0.01 K/uL (0-0.2); Basophils % (auto) 0.2 %; Eosinophils # (auto) 0.04 K/uL (0-0.5); Eosinophils % (auto) 0.6 %; Immature Granulocytes # (auto) 0.03 K/uL (0.00-0.02); Immature Granulocytes % (auto) 0.5 %; Lymphocytes % (auto) 4.6 %; Monocytes # (auto) 0.49 K/uL (0.11-0.59); Monocytes % (auto) 7.6 %; Neutrophils # (auto) 5.59 K/uL (1.4-6.5); Neutrophils % (auto) 86.5 %; RBC Morphology Unremarkable
[2018-11-07] MEDS ORDERED: LACTATED RINGER'S 1,000 ML IV ONE (02:52)
[2018-11-07] MEDS: PIPERACILLIN/TAZOBACTAM 3.375 GM in DEXTROSE 5% 100 ML IV SCH ×3 (05:05→20:53)
[2018-11-07] MEDS: LACTATED RINGER'S 1,000 ML IV SCH ×2 (05:05→10:34)
[2018-11-07] MEDS: PANTOprazole 40 MG TAB PO SCH (10:08)
--- NOTE | 2018-11-07 10:11 | Infectious Disease Consult ---
Date of Consultation November 07, 2018 Assessment & Plan (1) Sepsis: continue abx and follow cultures, suspect gu source. (2) UTI (urinary tract infection): History of Present Illness Attending Physician: Liliana Fu DO pt admitted with f/c and dysuria at home. has h/o ureteral surgery last year. no recent uti, h/o sp cath. Feeling much better today, states min dysuria, improving. no f/c. temp 39.1 in ER and was having fevers at home as well. Placed on dapto and zosyn, ID consulted for dapto approval. ESR 61. Lactate initially 3.5, 2.5 today. UA 10-30 wbc, +[address] abd ? cystitis, cirrhosis. wbc initially 1.6, now 6.4, creat 1.8. blood and urine cultures pending. he currently denies any abd pain, no n/v/d. no cp, sob, cough, improving gu symptoms but not resolved. Allergies Allergy/AdvReac Type Severity Reaction Status Date / Time tamsulosin Allergy Intermediate HIVES Verified 11/06/18 14:46 Home Medications Home Medications Medication Instructions Recorded Confirmed Type acetaminophen 500 mg tablet 1,000 mg PO DIRECTED PRN tab 10/16/18 11/06/18 H istory furosemide 20 mg tablet 20 mg PO DIRECTED PRN #30 tab 10/16/18 11/06/18 History Patient History Medical History Hypertension (Chronic) HX History of blood clots (Chronic) "BLOOD CLOT GOING INTO LIVER" Hypothyroidism (Chronic) GERD (gastroesophageal reflux disease) (Chronic) Fatty liver (Chronic) Kidney stones (Chronic) Psoriatic arthritis (Chronic) Spinal stenosis (Chronic) EPIDURAL INJECTIONS IN PAST FOR PAIN RELIEF Herniated disc (Chronic) LUMBAR AREA Anemia (Chronic) COLLIN (acute kidney injury) (Resolved) CKD (chronic kidney disease), stage III (Chronic) 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 (Chronic) Septicemia due to enterococcus (Resolved) Surgical History History of cataract surgery (Chronic) RT/LEFT History of tooth extraction (Chronic) History of appendectomy (Chronic) History of cholecystectomy (Chronic) History of herniorrhaphy (Chronic) History of colonoscopy (Chronic) History of esophagogastroduodenoscopy (EGD) (Chronic) History of liver biopsy (Chronic) Suprapubic catheter (Resolved) AND REMOVAL History of lithotripsy (Chronic) Nausea and vomiting after administration of anesthetic agent (Resolved) History of arthroscopy (Chronic) RT KNEE History of repair of rotator cuff (Chronic) RT/LEFT Neuroma (Chronic) REMOVED FROM RT/LEFT FOOT Family History Grandmother (Maternal) Family history of diabetes mellitus Social History Preferred Language: Macedonian Communication Ability: Effective Quenching 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 Required: No Beliefs That Will Affect Care: None Current Living Situation: Spouse Other Information That Helps Us Care for You: No Feels Safe at Home: Yes Safety Concerns: Feels Safe At This Time Smoking Status: Never smoker Do You Dip or Chew Tobacco: No (quit 35 years ago) ; Second Hand Exposure: No ; Hx Alcohol Use: No Hx Substance Use: No Review of Systems Review of Systems: All systems reviewed & are unremarkable except as noted in HPI & below Physical Exam Constitutional: WD/WN, vitals as above Eyes: PERRL, conjunctivae normal, anicteric sclerae ENMT: external ear and nose normal, oropharynx normal Neck: normal visual inspection Respiratory: normal respiratory effort, lungs clear to auscultation Cardiovascular: RRR, no murmur, no edema Gastrointestinal (Abdomen): normal bowel sounds, soft, nontender, no hepatosplenomegaly Musculoskeletal: no cyanosis or clubbing, extremities motor strength 5/5 Skin: no rashes, warm and dry Psychiatric: A+Ox3, euthymic affect Results & Data Vital Signs (Past 12 Hours) Vital Signs Temp Pulse Pulse Resp BP BP Pulse Ox 11/07/18 07:23 36.9 C 89 18 124/69 96 11/07/18 03:37 37.1 C 90 18 100/60 97 11/06/18 23:50 95 H 11/06/18 23:00 36.8 C 70 18 94/58 L 95 PG Care Time/CCT Total # of Minutes Spent Total Time Spent with Patient: Total time spent is greater than 50% in coordination of care (as documented) at patient's floor/unit and/or counseling patient: (1) UTI (urinary tract infection) Hematuria presence: with hematuria Urinary tract infection type: site unspecified Qualified Code(s): N39.0 - Urinary tract infection, site not specified; R31.9 - Hematuria, unspecified (2) Sepsis Sepsis acute organ dysfunction status: unspecified Sepsis type: sepsis due to unspecified organism Qualified Code(s): A41.9 - Sepsis, unspecified organism
[2018-11-07] MEDS: DAPTOmycin 550 MG in SYRINGE 0 ML IV SCH (14:25)
[2018-11-07] MEDS ORDERED: OXYCODONE HCL IR 5 MG TAB (IMMEDIATE RELEASE) PO PRN (17:07)
--- NOTE | 2018-11-07 17:11 | Hospitalist Progress Note ---
Date of Service November 07, 2018 Assessment & Plan (1) Sepsis: Lactate still >2 but trending down. Cont IVF, repeat lactate at 6pm. Cont current abx. Blood cultures now positive for GPC in clusters. (2) UTI (urinary tract infection): Cont Dapto and Zosyn in setting of sepsis. Pt has gross hematuria now, but also has worsening thrombocytopenia in setting of sepsis. Regardless, will ask Urology to see him to ensure no cystoscopy is indicated. Added pyridium for urinary urgency. (3) Pancytopenia: Leukopenia and thrombocytopenia worse in setting of acute infection. Anemia is likely dilutional, however, he also has hematuria now. No indication for platelet or blood transfusion at this time, but if there is continued bleeding and worsening of thrombocytopenia, may consider a platelet transfusion. (4) 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: No evidence of decompensation. Pt mentioned a h/o PVT, and reported no anticoagulation was given 2/2 bleeding issues in the past when he had a suprapubic catheter in place (approx 2 years ago this was removed, and was in for 3 prior to that). No records of this are available to me, and various GI providers have seen him. Will order a hepatic duplex to screen for PVT now. (5) Acute kidney injury superimposed on CKD: Secondary to sepsis. Cont IVF resuscitation and trend BMP. (6) Hypertension: Off BP meds for approx one year. BP has been at goal. (7) Psoriatic arthritis: Off Humira since 2018 with uncontrolled disease present. Recommend rheumatologic follow-up as outpatient. (8) Acute leg pain: Denies cramp but suspect this is the situation in setting of sepsis and relative dehydration. US lower extremity to rule out DVT. (9) DVT prophylaxis: chemoprophylaxis contraindicated Full Code Dispo-cont telemetry monitoring. Liliana Fu DO [facility] Hospitalist Subjective 63 yo M with h/o psoriasis, cirrhosis and PVT not treated with anticoagulation presented with sepsis yesterday. He had fevers and chills as well as incomplete emptying of urine and urinary urgency. He still reports the urgency and some incontinence. He reports an improvement in fevers and chills and feels better since yesterday. Lactate is still >2, continues on broad spectrum abx and IVF at 150cc/hr. Tolerating PO. Denies pain including no suprapubic or flank pain. Reports a h/o humira use for psoriatic arthritis but is off this now. Uses Tylenol to treat his underlying arthritis. Feel Tramadol is unhelpful. Reports acute leg pain on the left but states is is sharp but not a cramp. Review of Systems Review of Systems: All systems reviewed & are unremarkable except as noted in HPI & below Physical Exam Physical Exam: CONSTITUTIONAL: obese, vitals as above, generally well- appearing EYES: normal conjunctivae, no scleral icterus ENT: MMM RESPIRATORY: clear to auscultation bilaterally, no crackles, rales or wheezes, normal respiratory effort CARDIOVASCULAR: regular rate and rhythm, S1 and 2 heard without murmurs, gallops or rubs, no JVD, no peripheral edema GASTROINTESTINAL: normal bowel sounds, soft, nontender, nondistended, old incision site from suprapubic catheter is present. Some erythema in between skin folds. No CVA tenderness. Madrigal is not in place. MUSCULOSKELETAL: strength 5/5 throughout, head is normocephalic and atraumatic SKIN: warm and dry, plaque lesions on arms and extensor surfaces. Multiple seborrheic keratoses. NEUROLOGIC: CN 2-12 grossly intact, no sensory deficit, normal cognition, normal speech, no gross focal deficits. PSYCHIATRIC: alert cooperative and oriented to person, place and time. Results & Data Vital Signs (Past 12 Hours) Vital Signs Temp Pulse Resp BP BP Pulse Ox 11/07/18 15:19 37.0 C 77 18 110/64 97 11/07/18 11:13 36.9 C 96 H 18 120/70 96 11/07/18 07:23 36.9 C 89 18 124/69 96 Laboratory Results Short CBC 11/07/18 Range/Units 02:06 WBC 6.46 (4.8-10.8) K/uL Hgb 10.4 L (14.0-18.0) g/dL Hct 30.5 L (42-52) % Plt Count 33 L (130-400) K/uL BMP 11/07/18 02:06 Sodium 142 Potassium 3.5 Chloride 113 H Carbon Dioxide 23 BUN 18 Creatinine 1.81 H D Glucose 144 H Calcium 7.7 L Cardiac Enzymes 11/06/18 11/07/18 Range/Units 13:35 02:06 Total Creatine Kinase 67 74 (39-308) U/L Liver Function 11/07/18 Range/Units 06:29 Albumin 2.2 L (3.4-5.0) gm/dl Diagnostic Findings CT SCAN OF THE ABDOMEN AND PELVIS WITHOUT IV CONTRAST CLINICAL HISTORY: Sepsis. COMPARISON STUDY: Abdominal CT dated 04/04/2017. TECHNIQUE: CT scan of the abdomen and pelvis is performed from the lung bases to the proximal femora. Images are reviewed in the axial, sagittal, and coronal planes. IV contrast was not administered for this examination as per the referring clinician. Note that the examination was performed in suboptimal fashion without IV contrast. A dose lowering technique was utilized adhering to the principles of ALARA. CT DOSE: 1581.72 mGy.cm FINDINGS: Lung bases: The heart is normal in size and without pericardial effusion. The lung bases are clear noting mild bibasilar atelectasis. Liver: The unenhanced liver is cirrhotic in morphology and heterogeneous in attenuation. There is nodularity of the hepatic surface contour, as well as hypertrophy of the left lobe and caudate. There is no intrahepatic biliary ductal dilatation. Gallbladder: Surgically absent noting clips in the gallbladder fossa. Spleen: The spleen is enlarged, measuring 17 cm in length. Pancreas: The unenhanced pancreas is atrophic and grossly unremarkable. Adrenal glands: Unremarkable. Kidneys: The unenhanced kidneys demonstrate cortical atrophy and are without hydronephrosis. There are least 2 small nonobstructing left renal calculi which measure up to 2 mm. There is no evidence of contour deforming renal mass lesion. Abdominal vasculature: The abdominal aorta is normal in course and caliber noting mild atherosclerotic calcification. Bowel: The small bowel and colon are normal in course and caliber. The appendix is not identified and reported surgically absent. Peritoneum: There is no intraperitoneal free air. Trace free fluid is noted around the liver and in the pelvis. Lymphadenopathy: None. Pelvic viscera: The bladder wall appears mildly thickened and there is pericystic inflammation. The prostate gland is diminutive and heterogeneous. Skeletal structures: The skeletal structures are osteopenic. Mild lumbosacral spondylosis is observed. No lytic or blastic lesions are seen. IMPRESSION: 1. Question cystitis. Correlation with clinical findings and urinalysis will be required. 2. Cirrhotic liver morphology. 3. Splenomegaly and trace abdominopelvic ascites indicate portal hypertension. 4. Left-sided nephrolithiasis. 5. Additional findings as above. XR chest 1V portable CLINICAL HISTORY: fever COMPARISON STUDY: 08/28/2017 FINDINGS: The heart is at the upper limits of normal in size. There is no fail ure. There is no focal pulmonary consolidation. There are no pleural effusions.[ IMPRESSION: No active disease in the chest. ABDOMINAL ULTRASOUND, RIGHT UPPER QUADRANT HISTORY: 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. COMPARISON: Abdomen and pelvis CT 04/04/2017. FINDINGS: Pancreas: Obscured by overlying bowel gas. Liver: Slight nodular appearance with a coarse echotexture. This suggests mild cirrhosis. Gallbladder: The gallbladder is surgically absent. CBD: 5 mm. Right kidney: No hydronephrosis. IMPRESSION: Slight nodular contour to the liver with a coarse echotexture. This is consistent with mild cirrhosis. Medications Administered Current Inpatient Medications Acetaminophen (Tylenol) 500 mg PO QID [facility] Stop: 12/07/18 20:59 Daptomycin 550 mg/ Syringe 11 mls @ 5.5 mls/min IV DAILY@1400 [facility]; Protocol Stop: 11/16/18 13:59 Last Admin: 11/07/18 14:25 Dose: 5.5 mls/min Documented by: Piperacillin Sod/Tazobactam (Sod 3.375 gm/ Dextrose) 115 mls @ 28.75 mls/hr IV Q8H [facility]; Protocol Stop: 11/16/18 20:59 Last Admin: 11/07/18 14:25 Dose: 28.8 mls/hr Documented by: Miscellaneous Information (Consult) 1 ea N/A UD PRN PRN Reason: Consult Stop: 12/06/18 19:56 Miscellaneous Information (Consult) 1 ea N/A UD PRN PRN Reason: Consult Stop: 12/06/18 19:56 Non-Formulary Medication (Omeprazole) 20 mg PO DAILY [facility] Stop: 12/08/18 08:59 Ondansetron HCl (Zofran) 4 mg IV Q6H PRN PRN Reason: Nausea Stop: 12/06/18 19:39 Oxycodone HCl (Roxicodone Immediate Rel) 5 mg PO Q6H PRN PRN Reason: Severe Pain Stop: 11/21/18 17:06 Pantoprazole Sodium (Protonix) 40 mg PO QAM [facility] Stop: 12/06/18 19:44 Last Admin: 11/07/18 10:08 Dose: 40 mg Documented by: Phenazopyridine HCl (Pyridium) 200 mg PO TID [facility] Stop: 11/09/18 14:01 (1) UTI (urinary tract infection) Hematuria presence: with hematuria Urinary tract infection type: site unspecified Qualified Code(s): N39.0 - Urinary tract infection, site not specified; R31.9 - Hematuria, unspecified (2) Sepsis Sepsis acute organ dysfunction status: unspecified Sepsis type: sepsis due to unspecified organism Qualified Code(s): A41.9 - Sepsis, unspecified organism
--- NOTE | 2018-11-07 20:32 | Ultrasound Report ---
BILATERAL LOWER EXTREMITY VENOUS DOPPLER CLINICAL HISTORY: acute leg pain with h/o DVT COMPARISON STUDY: No previous studies for comparison. TECHNIQUE: Sonography of the deep venous system of the bilateral lower extremities was performed. Co mpression and augmentation were evaluated. FINDINGS: The bilateral common femoral, superficial femoral and popliteal veins were compressible. A ugmentation was normal. Flow was shown within the deep calf vessels. IMPRESSION: No evidence of deep venous thrombus within the bilateral lower extremities. Electronically signed by: Russell Cantu M.D. 11/07/2018 8:30 PM
[2018-11-07] MEDS: PHENAZOPYRIDINE HCL 200 MG TAB PO SCH (20:51)
[2018-11-07] MEDS: ACETAMINOPHEN 500 MG TAB PO SCH (20:52)
[2018-11-08] MEDS: PIPERACILLIN/TAZOBACTAM 3.375 GM in DEXTROSE 5% 100 ML IV SCH ×3 (04:16→21:14)
[2018-11-08 07:34] LABS: Mean Corpuscular Hgb Conc 33.6 g/dL (32-36)
[2018-11-08 07:39] LABS: Platelet Count 38 K/uL (130-400)
[2018-11-08 07:43] LABS: INR 1.5 (0.9-1.1); Prothrombin Time 15.3 Seconds (9.0-12.0)
[2018-11-08] MEDS: ACETAMINOPHEN 500 MG TAB PO SCH ×4 (07:53→21:14)
[2018-11-08] MEDS: PANTOprazole 40 MG TAB PO SCH (07:53)
[2018-11-08] MEDS: PHENAZOPYRIDINE HCL 200 MG TAB PO SCH ×3 (07:53→21:15)
[2018-11-08 07:58] LABS: BUN Creatinine Ratio 13.3 (10-20); Calcium 8.7 mg/dl (8.5-10.1); Creatinine Clr Calc Pharmacy 56.7 ml/min; Est GFR (African American) 46.3; Potassium 3.9 mmol/L (3.5-5.1)
[2018-11-08 08:03] LABS: Albumin Globulin Ratio 0.5 (0.9-2); Bilirubin,Total 1.8 mg/dl (0.2-1); Globulin 3.8 gm/dl (2.5-4.0); Total Protein 5.8 gm/dl (6.4-8.2)
[2018-11-08 08:09] LABS: Hematocrit (blood only) 30.4 % (42-52); Hemoglobin 10.2 g/dL (14.0-18.0); Mean Corpuscular Volume 101.7 fL (80-100); Mean Platelet Volume 9.3 fL (7.4-10.4); RDW Coefficient of Variation 17.2 % (11.5-14.5); RDW Standard Deviation 63.7 fL (36.4-46.3); Red Blood Count 2.99 M/uL (4.7-6.1); White Blood Count 8.83 K/uL (4.8-10.8)
[2018-11-08 08:11] LABS: Basophils # (auto) 0.04 K/uL (0-0.2); Basophils % (auto) 0.5 %; Eosinophils # (auto) 0.31 K/uL (0-0.5); Eosinophils % (auto) 3.5 %; Immature Granulocytes # (auto) 0.02 K/uL (0.00-0.02); Immature Granulocytes % (auto) 0.2 %; Lymphocytes # (auto) 1.18 K/uL (1.2-3.4); Lymphocytes % (auto) 13.4 %; Monocytes # (auto) 0.83 K/uL (0.11-0.59); Monocytes % (auto) 9.4 %; Neutrophils # (auto) 6.45 K/uL (1.4-6.5)
[2018-11-08] MEDS ORDERED: NON-FORMULARY MEDICATION (Omeprazole 20 MG) PO SCH (09:00)
--- NOTE | 2018-11-08 10:31 | Ultrasound Report ---
US duplex portal hepatic veins CLINICAL HISTORY: 63 years-old Male presenting with cirrhosis and ascites, concern for portal vein th rombosis. TECHNIQUE: Real-time grayscale and color and spectral Doppler ultrasound imaging of the liver was per formed. COMPARISON: 05/12/2018. FINDINGS: Liver: Hyperechogenic parenchyma with heterogeneous echotexture, likely indicating fibrosis or steato sis. Vasculature: Portal veins: Main portal vein with normal antegrade flow and gentle undulating waveforms. Peak veloc ity 15-20 cm/s. Right and left portal veins with normal directional flow. Hepatic arteries: Proper hepatic artery with normal parenchymal arterial waveforms. Peak systolic guera ocity 41-70 cm/s. Hepatic veins: Right, middle, and left hepatic veins with grossly normal phasicity. Splenic vein: Patent. IVC: Patent. Biliary: No gross intrahepatic biliary ductal dilatation. Gallbladder: Not evaluated. Ascites: None. Other: None. IMPRESSION: 1. Patent hepatic vasculature. 2. Cirrhosis. No significant ascites. Electronically signed by: Thaddeus Saavedra M.D. 11/08/2018 10:30 AM
--- NOTE | 2018-11-08 10:59 | Urology Consultation ---
Date of Consultation November 08, 2018 Assessment & Plan (1) UTI (urinary tract infection): Steadily improving on antibiotics As long as he is emptying his bladder adequately I would avoid Madrigal catheter placement Conservative management History of Present Illness Attending Physician: Liliana Fu, DO History of Present Illness 63-year-old gentleman well-known to our service with a history of urethral stricture disease now status post urethroplasty in [place] Prior to his urethroplasty he had a long history of recurrent urinary tract infections and hematuria He has had substantial improvement since the surgery, however he had symptoms reminiscent of his prior episodes of UTI/sepsis prompting ER visit He is voiding adequately He is gradually improving subjectively He denies any substantial pain Allergies Allergy/AdvReac Type Severity Reaction Status Date / Time tamsulosin Allergy Intermediate HIVES Verified 11/06/18 14:46 Home Medications Home Medications Medication Instructions Recorded Confirmed Type acetaminophen 500 mg tablet 1,000 mg PO DIRECTED PRN tab 10/16/18 11/06/18 History furosemide 20 mg tablet 20 mg PO DIRECTED PRN #30 tab 10/16/18 11/06/18 History omeprazole 20 mg PO DAILY 11/07/18 11/07/18 History Patient History Medical History Hypertension (Chronic) HX History of blood clots (Chronic) "BLOOD CLOT GOING INTO LIVER" Hypothyroidism (Chronic) GERD (gastroesophageal reflux disease) (Chronic) Fatty liver (Chronic) Kidney stones (Chronic) Psoriatic arthritis (Chronic) Spinal stenosis (Chronic) EPIDURAL INJECTIONS IN PAST FOR PAIN RELIEF Herniated disc (Chronic) LUMBAR AREA Anemia (Chronic) COLLIN (acute kidney injury) (Resolved) CKD (chronic kidney disease), stage III (Chronic) 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 (Chronic) Septicemia due to enterococcus (Resolved) Surgical History History of cataract surgery (Chronic) RT/LEFT History of tooth extraction (Chronic) History of appendectomy (Chronic) History of cholecystectomy (Chronic) History of herniorrhaphy (Chronic) History of colonoscopy (Chronic) History of esophagogastroduodenoscopy (EGD) (Chronic) History of liver biopsy (Chronic) Suprapubic catheter (Resolved) AND REMOVAL History of lithotripsy (Chronic) Nausea and vomiting after administration of anesthetic agent (Resolved) History of arthroscopy (Chronic) RT KNEE History of repair of rotator cuff (Chronic) RT/LEFT Neuroma (Chronic) REMOVED FROM RT/LEFT FOOT Family History Grandmother (Maternal) Family history of diabetes mellitus Social History Preferred Language: Korean Communication Ability: Effective International Editorial Producer Required: No Beliefs That Will Affect Care: None marital status: Current Living Situation: Spouse Other Information That Helps Us Care for You: No Feels Safe at Home: Yes Safety Concerns: Feels Safe At This Time Smoking Status: Never smoker Do You Dip or Chew Tobacco: No (quit 35 years ago) ; Second Hand Exposure: No ; Hx Alcohol Use: No Hx Substance Use: No Review of Systems Constitutional: + fever, + chills and + fatigue Eyes: no worsening vision Ear, Nose, Mouth, Throat: no facial pain and no pain with swallowing Respiratory: no cough and no dyspnea Cardiovascular: no chest pain and no palpitations Gastrointestinal: no abdominal pain, no nausea and no vomiting Genitourinary: + dysuria, + difficulty urinating and + urinary incontinence Musculoskeletal: no back pain Integumentary: no rash and no urticaria Neurologic: no gait abnormality and no unsteadiness Psychiatric: no behavioral changes and no depression Endocrine: no fatigue Physical Exam Constitutional: well developed and well nourished Neck: neck nontender Respiratory: normal respiratory effort; no respiratory distress and does not use accessory muscles Cardiovascular: Rate/Rhythm: regular rate Vessels: radial pulses present Extremities: no edema Gastrointestinal (Abdomen): Inspection/Auscultation: abdomen normal to inspection Percussion/Palpation: abdomen soft; abdomen nontender and no guarding Musculoskeletal: Head/Neck/Chest: normocephalic and head atraumatic Extremities: extremities normal to inspection Skin: no rashes and no lesions Trauma: no evidence of skin trauma Neurologic: awake; not obtunded Speech / Cognition: normal speech Motor/Sensory: no tremor Psychiatric: Orientation: alert and oriented x 3 Genitourinary: no CVA tenderness Lymphatic: no lymphadenopathy Results & Data Vital Signs (Past 12 Hours) Vital Signs Temp Pulse Resp BP Pulse Ox 11/08/18 07:48 36.7 C 64 18 96/55 L 96 11/08/18 03:53 36.9 C 71 18 113/63 96 11/07/18 23:00 36.8 C 81 19 122/70 96 PG Care Time/CCT Total # of Minutes Spent Total Time Spent with Patient: Total time spent is greater than 50% in coordination of care (as documented) at patient's floor/unit and/or counseling patient: (1) UTI (urinary tract infection) Hematuria presence: with hematuria Urinary tract infection type: site unspecified Qualified Code(s): N39.0 - Urinary tract infection, site not specified; R31.9 - Hematuria, unspecified
[2018-11-08] MEDS ORDERED: FUROSEMIDE 20 MG in SYRINGE 0 ML IV ONE (12:45)
[2018-11-08] MEDS: DAPTOmycin 550 MG in SYRINGE 0 ML IV SCH (12:51)
--- NOTE | 2018-11-08 16:42 | Hospitalist Progress Note ---
Date of Service November 08, 2018 Assessment & Plan (1) Sepsis: resuscitated. Cont current abx. Blood cultures now positive for alpha strep species. ID following. (2) UTI (urinary tract infection): Cont Dapto and Zosyn. Some dysuria and incomplete voiding present. Pyridium has improved symptoms. Urology following for gross heamturia. No cyto at this time. (3) Gross hematuria: (4) Pancytopenia: Improved with treatment of sepsis. (5) 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: No evidence of decompensation. Pt mentioned a h/o PVT, but that was not present on hepatic doppler performed this morning. (6) Acute kidney injury superimposed on CKD: Secondary to sepsis. Lasix 20IV given for swelling. Monitor BMP in am. (7) Hypertension: Off BP meds for approx one year. BP has been at goal. (8) Psoriatic arthritis: Off Humira since 2018 with uncontrolled disease present. Recommend rheumatologic follow-up as outpatient. (9) Acute leg pain: No DVT on us. Resolved. (10) DVT prophylaxis: chemoprophylaxis contraindicated 2/2 thrombocytopenia. Full Code Dispo-cont hospitalization pending de-escalation of antibiotics per infectious disease. Liliana Fu DO [facility] Hospitalist Subjective feeling good Denies fevers chills, tolerating p.o. Some diarrhea present. Review of Systems Review of Systems: All systems reviewed & are unremarkable except as noted in HPI & below Physical Exam Physical Exam: CONSTITUTIONAL: obese, vitals as above, generally well- appearing EYES: normal conjunctivae, no scleral icterus ENT: MMM RESPIRATORY: clear to auscultation bilaterally, no crackles, rales or wheezes, normal respiratory effort CARDIOVASCULAR: regular rate and rhythm, S1 and 2 heard without murmurs, gallops or rubs, no JVD, no peripheral edema but notable swelling in hands bilaterally GASTROINTESTINAL: normal bowel sounds, soft, nontender, nondistended. No CVA tenderness. Madrigal is not in place. MUSCULOSKELETAL: strength 5/5 throughout, head is normocephalic and atraumatic SKIN: warm and dry, plaque lesions on arms and extensor surfaces. Multiple seborrheic keratoses. NEUROLOGIC: CN 2-12 grossly intact, no sensory deficit, normal cognition, normal speech, no gross focal deficits. PSYCHIATRIC: alert cooperative and oriented to person, place and time. Results & Data Vital Signs (Past 12 Hours) Vital Signs Temp Pulse Resp BP Pulse Ox 11/08/18 16:23 36.7 C 64 18 108/62 96 11/08/18 11:47 36.8 C 60 18 112/67 96 11/08/18 07:48 36.7 C 64 18 96/55 L 96 Laboratory Results Short CBC 11/08/18 Range/Units 07:19 WBC 8.83 (4.8-10.8) K/uL Hgb 10.2 L (14.0-18.0) g/dL Hct 30.4 L (42-52) % Plt Count 38 L (130-400) K/uL BMP 11/08/18 07:19 Sodium 143 Potassium 3.9 Chloride 113 H Carbon Dioxide 26 BUN 23 H Creatinine 1.76 H Glucose 84 Calcium 8.7 Liver Function 11/08/18 Range/Units 07:19 Total Bilirubin 1.8 H (0.2-1) mg/dl AST 37 (15-37) U/L ALT 20 (12-78) U/L Alkaline Phosphatase 44 L (45-117) U/L Albumin 2.0 L (3.4-5.0) gm/dl Medications Administered Current Inpatient Medications Acetaminophen (Tylenol) 500 mg PO QID [facility] Stop: 12/07/18 20:59 Last Admin: 11/08/18 16:39 Dose: 500 mg Documented by: Daptomycin 550 mg/ Syringe 11 mls @ 5.5 mls/min IV DAILY@1400 [facility]; Protocol Stop: 11/16/18 13:59 Last Admin: 11/08/18 12:51 Dose: 5.5 mls/min Documented by: Piperacillin Sod/Tazobactam (Sod 3.375 gm/ Dextrose) 115 mls @ 28.75 mls/hr IV Q8H [facility]; Protocol Stop: 11/16/18 20:59 Last Admin: 11/08/18 12:51 Dose: 28.8 mls/hr Documented by: Miscellaneous Information (Consult) 1 ea N/A UD PRN PRN Reason: Consult Stop: 12/06/18 19:56 Miscellaneous Information (Consult) 1 ea N/A UD PRN PRN Reason: Consult Stop: 12/06/18 19:56 Ondansetron HCl (Zofran) 4 mg IV Q6H PRN PRN Reason: Nausea Stop: 12/06/18 19:39 Oxycodone HCl (Roxicodone Immediate Rel) 5 mg PO Q6H PRN PRN Reason: Severe Pain Stop: 11/21/18 17:06 Last Admin: 11/07/18 23:29 Dose: 5 mg Documented by: Pantoprazole Sodium (Protonix) 40 mg PO QAM [facility] Stop: 12/06/18 19:44 Last Admin: 11/08/18 07:53 Dose: 40 mg Documented by: Phenazopyridine HCl (Pyridium) 200 mg PO TID [facility] Stop: 11/09/18 14:01 Last Admin: 11/08/18 12:51 Dose: 200 mg Documented by: (1) UTI (urinary tract infection) Hematuria presence: with hematuria Urinary tract infection type: site unspecified Qualified Code(s): N39.0 - Urinary tract infection, site not specified; R31.9 - Hematuria, unspecified (2) Sepsis Sepsis acute organ dysfunction status: unspecified Sepsis type: sepsis due to unspecified organism Qualified Code(s): A41.9 - Sepsis, unspecified organism
[2018-11-08] MEDS: SACCHAROMYCES BOULARDII 250 MG CAP PO SCH (21:14)
[2018-11-08] MEDS ORDERED: LORazepam 0.5 MG TAB PO STA (23:57)
[2018-11-09 05:43] LABS: Hematocrit (blood only) 31.1 % (42-52); Hemoglobin 10.8 g/dL (14.0-18.0); Mean Corpuscular Hgb Conc 34.7 g/dL (32-36); RDW Coefficient of Variation 16.7 % (11.5-14.5); Red Blood Count 3.11 M/uL (4.7-6.1); White Blood Count 5.78 K/uL (4.8-10.8)
[2018-11-09 05:45] LABS: Mean Platelet Volume 9.6 fL (7.4-10.4); Platelet Count 46 K/uL (130-400)
[2018-11-09] MEDS: PIPERACILLIN/TAZOBACTAM 3.375 GM in DEXTROSE 5% 100 ML IV SCH ×2 (05:48→13:16)
[2018-11-09 06:03] LABS: BUN Creatinine Ratio 12.6 (10-20); Calcium 8.8 mg/dl (8.5-10.1); Creatinine Clr Calc Pharmacy 54.2 ml/min; Est GFR (African American) 43.9; Est GFR (Non-African American) 37.9; Potassium 3.8 mmol/L (3.5-5.1)
--- NOTE | 2018-11-09 07:23 | Urology Progress Note ---
Date of Service November 09, 2018 Assessment & Plan (1) UTI (urinary tract infection): Sepsis - resolving cultures without definitive bacterial source identified clinically continues to improve no catheters complete abx as per ID/hospitalist team outpt f/u Subjective continues to steadily improve voiding adequately afebrile, normotensive now Physical Exam Constitutional: well developed and well nourished Respiratory: no respiratory distress Cardiovascular: Extremities: no pedal edema Gastrointestinal (Abdomen): Inspection/Auscultation: abdomen normal to inspection Results & Data Vital Signs (Past 12 Hours) Vital Signs Temp Pulse Resp BP Pulse Ox 11/09/18 06:51 36.5 C 72 20 127/68 95 11/08/18 23:41 36.9 C 61 20 121/62 97 PG Care Time/CCT Total # of Minutes Spent Total Time Spent with Patient: Total time spent is greater than 50% in coordination of care (as documented) at patient's floor/unit and/or counseling patient: (1) UTI (urinary tract infection) Hematuria presence: with hematuria Urinary tract infection type: site unspecified Qualified Code(s): N39.0 - Urinary tract infection, site not specified; R31.9 - Hematuria, unspecified
--- NOTE | 2018-11-09 07:28 | Infectious Disease Progress Nt ---
Date of Service November 09, 2018 Assessment & Plan (1) Sepsis: continue abx and follow cultures, suspect gu source. repeat blood cultures (2) UTI (urinary tract infection): Subjective remains on IV abx, tolerating well blood culture from 11/06 growing alpha strep and gnr, final pending, urine cultue > 3 organisms. afebrile. lactate improving urology following. no plans for procedure at this time. Results & Data Vital Signs (Past 12 Hours) Vital Signs Temp Pulse Resp BP Pulse Ox 11/09/18 06:51 36.5 C 72 20 127/68 95 11/08/18 23:41 36.9 C 61 20 121/62 97 Laboratory Results Microbiology 11/06/18 15:13 Blood Aerobic Blood Culture - Preliminary No growth in Aerobic bottle after 48 hours. 11/06/18 15:13 Blood Anaerobic Blood Culture - Preliminary Prob.maya gram negative cocci 11/06/18 14:25 Blood Aerobic Blood Culture - Preliminary No growth in Aerobic bottle after 48 hours. 11/06/18 14:25 Blood Anaerobic Blood Culture - Preliminary Alpha strep not S.pne/enteroco 11/06/18 14:48 Urine,Clean Catch Urine Culture - Final Three types of organisms present, all high counts probable skin jairon. No further identifications or sensitivities to follow. PG Care Time/CCT Total # of Minutes Spent Total Time Spent with Patient: Total time spent is greater than 50% in coordination of care (as documented) at patient's floor/unit and/or counseling patient: (1) UTI (urinary tract infection) Hematuria presence: with hematuria Urinary tract infection type: site unspecified Qualified Code(s): N39.0 - Urinary tract infection, site not specified; R31.9 - Hematuria, unspecified (2) Sepsis Sepsis acute organ dysfunction status: unspecified Sepsis type: sepsis due to unspecified organism Qualified Code(s): A41.9 - Sepsis, unspecified organism
[2018-11-09] MEDS: ACETAMINOPHEN 500 MG TAB PO SCH ×2 (08:14→13:16)
[2018-11-09] MEDS: PHENAZOPYRIDINE HCL 200 MG TAB PO SCH ×2 (08:14→13:16)
[2018-11-09] MEDS: SACCHAROMYCES BOULARDII 250 MG CAP PO SCH (08:14)
[2018-11-09] MEDS: PANTOprazole 40 MG TAB PO SCH (08:14)
--- NOTE | 2018-11-09 12:37 | Hospitalist Progress Note ---
Date of Service November 09, 2018 Assessment & Plan (1) Sepsis: Lactate still >2 but trending down. Cont IVF, repeat lactate at 6pm. Cont current abx. Blood cultures now positive for GPC in clusters. (2) UTI (urinary tract infection): Cont Dapto and Zosyn in setting of sepsis. Pt has gross hematuria now, but also has worsening thrombocytopenia in setting of sepsis. Regardless, will ask Urology to see him to ensure no cystoscopy is indicated. Added pyridium for urinary urgency. (3) Pancytopenia: Leukopenia and thrombocytopenia worse in setting of acute infection. Anemia is likely dilutional, however, he also has hematuria now. No indication for platelet or blood transfusion at this time, but if there is continued bleeding and worsening of thrombocytopenia, may consider a platelet transfusion. (4) 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: No evidence of decompensation. Pt mentioned a h/o PVT, and reported no anticoagulation was given 2/2 bleeding issues in the past when he had a suprapubic catheter in place (approx 2 years ago this was removed, and was in for 3 prior to that). No records of this are available to me, and various GI providers have seen him. Will order a hepatic duplex to screen for PVT now. (5) Acute kidney injury superimposed on CKD: Secondary to sepsis. Cont IVF resuscitation and trend BMP. (6) Hypertension: Off BP meds for approx one year. BP has been at goal. (7) Psoriatic arthritis: Off Humira since 2018 with uncontrolled disease present. Recommend rheumatologic follow-up as outpatient. (8) Acute leg pain: Denies cramp but suspect this is the situation in setting of sepsis and relative dehydration. US lower extremity to rule out DVT. (9) DVT prophylaxis: chemoprophylaxis contraindicated Full Code Dispo-cont telemetry monitoring. DO [facility] Hospital[facility] Results & Data Vital Signs (Past 12 Hours) Vital Signs Temp Pulse Resp BP Pulse Ox 11/09/18 06:51 36.5 C 72 20 127/68 95 Laboratory Results Short CBC 11/09/18 Range/Units 05:23 WBC 5.78 (4.8-10.8) K/uL Hgb 10.8 L (14.0-18.0) g/dL Hct 31.1 L (42-52) % Plt Count 46 L (130-400) K/uL BMP 11/09/18 05:23 Sodium 143 Potassium 3.8 Chloride 111 H Carbon Dioxide 29 BUN 23 H Creatinine 1.84 H Glucose 86 Calcium 8.8 Medications Administered Current Inpatient Medications Acetaminophen (Tylenol) 500 mg PO QID [facility] Stop: 12/07/18 20:59 Last Admin: 11/09/18 08:14 Dose: 500 mg Documented by: Daptomycin 550 mg/ Syringe 11 mls @ 5.5 mls/min IV DAILY@1400 LUZ; Protocol Stop: 11/16/18 13:59 Last Admin: 11/08/18 12:51 Dose: 5.5 mls/min Documented by: Piperacillin Sod/Tazobactam (Sod 3.375 gm/ Dextrose) 115 mls @ 28.75 mls/hr IV Q8H [facility]; Protocol Stop: 11/16/18 20:59 Last Infusion: 11/09/18 09:34 Dose: Infused Documented by: Miscellaneous Information (Consult) 1 ea N/A UD PRN PRN Reason: Consult Stop: 12/06/18 19:56 Miscellaneous Information (Consult) 1 ea N/A UD PRN PRN Reason: Consult Stop: 12/06/18 19:56 Ondansetron HCl (Zofran) 4 mg IV Q6H PRN PRN Reason: Nausea Stop: 12/06/18 19:39 Oxycodone HCl (Roxicodone Immediate Rel) 5 mg PO Q6H PRN PRN Reason: Severe Pain Stop: 11/21/18 17:06 Last Admin: 11/07/18 23:29 Dose: 5 mg Documented by: Pantoprazole Sodium (Protonix) 40 mg PO QAM [facility] Stop: 12/06/18 19:44 Last Admin: 11/09/18 08:14 Dose: 40 mg Documented by: Phenazopyridine HCl (Pyridium) 200 mg PO TID [facility] Stop: 11/09/18 14:01 Last Admin: 11/09/18 08:14 Dose: 200 mg Documented by: Saccharomyces Boulardii (Florastor) 250 mg PO BID [facility] Stop: 12/08/18 20:59 Last Admin: 11/09/18 08:14 Dose: 250 mg Documented by: (1) Sepsis Sepsis acute organ dysfunction status: unspecified Sepsis type: sepsis due to unspecified organism Qualified Code(s): A41.9 - Sepsis, unspecified organism (2) UTI (urinary tract infection) Hematuria presence: with hematuria Urinary tract infection type: site unspecified Qualified Code(s): N39.0 - Urinary tract infection, site not specified; R31.9 - Hematuria, unspecified
[2018-11-09] MEDS: DAPTOmycin 550 MG in SYRINGE 0 ML IV SCH (13:16)
--- NOTE | 2018-11-09 15:55 | Discharge Summary ---
Date of Service November 09, 2018 Admission HPI Per Admitting Provider Pt is 63 y/o M with PMH Urethral stricture, h/o reconstructive surgery, CKD, liver cirrhosis secondary to [place], psoriatic arthritis, HTN, chronic anemia presented to ER with complaint of fever. Patient states yesterday started with chills and this morning noticed fever. States yesterday noticed dark and foul- smelling urine. Patient with history urinary sepsis 03/2017 requiring ICU admission. Patient with history of reconstructive urethral surgery in 02/2017 at [facility] [place]. Has not had suprapubic catheter since. Patient states since surgery has not had any UTIs and is able to urinate on his own. States sometimes urine stream is not very strong however is still able to urinate. Patient reports chronic low back pain greater to the left side in past has had injections to back, has not had any for several months. Denies any increased back pain. Also reports chronic intermittent lower abdominal pain occurs with movement x several years. Denies hematuria, urinary retention. Denies diaphoresis, N/V/D/C, HOOK, di zziness, syncope, vision changes, neck pain, CP, SOB, orthopnea, palpitations, cough, sore throat, choking, otalgia, rhinorrhea, paresthesias, weakness, extremity weakness, extremity edema, rashes. Admission Exam Per Admitting Provider General: no acute distress, non-toxic appearance, obese Head: normocephalic, atraumatic Eyes: PERRL, EOM's intact, conjunctiva non-injected, anicteric ENT: normal inspection external ears, nose, mucous membranes dry Neck: supple, trachea midline Lungs: clear, no respiratory distress, no wheezing/rhonchi/rales CV: RRR, no murmur, no JVD, no pretibial edema Abd: normal BS, soft, non-tender; no CVA tenderness to percussion Ext: no cyanosis, no calf tenderness Neuro: A&O x 3, no focal deficits noted, normal affect Skin: warm, dry Principal Diagnosis Sepsis, POA, resolved Alpha strep bacteremia Acute on chronic kidney disease Cirrhosis Pancytopenia Discharge Data Allergies Allergy/AdvReac Type Severity Reaction Status Date / Time tamsulosin Allergy Intermediate HIVES Verified 11/06/18 14:46 Consultations 11/06/18 16:06 ED Decision to Admit Stat 11/06/18 19:40 Consult Case Management - Discharge Planning Routine Consult Infectious Diseases Routine 11/07/18 17:20 Consult Urology Routine Ordered Studies 11/06/18 14:09 CT abd pelvis wo con Stat 11/07/18 17:23 US venous doppler LE BI Stat 11/08/18 07:09 US duplex portal hepatic veins Urgent Hospital Course (1) Bacteremia: (2) Sepsis: (3) Pancytopenia: (4) 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: (5) Acute kidney injury superimposed on CKD: (6) Psoriatic arthritis: 63-year-old man presented to the ER with sepsis, thought secondary to a urinary source. He was admitted to the Hospitalist service and daptomycin and Zosyn were started in addition to aggressive IV fluid resuscitation. Lactate was elevated with improvement after resuscitation efforts for 24 hours. Lab work revealed pancytopenia in the setting of known cirrhosis with chronic thrombocytopenia. This was secondary to infection and was improving at the time of discharge closer to baseline. The patient subsequently developed gross hematuria. Of note, no Madrigal or urethral manipulation was performed. Urology was consulted and recommended against cystoscopy at this time. The patient has a history of a urethral reconstruction that was a significant event for him, including a suprapubic catheter for 3 years. He ultimately did not have a urinary infection, however, blood cultures revealed evidence of alpha streptococcus. Infectious Disease was consulted and broad-spectrum antibiotics were de-escalated to Levaquin for 14 days going home. Of note, regarding source of infection, the patient reports having significant gum issues with a "blood blister" that erupted in his mouth three days prior to becoming ill. He is edentulous and wears dentures but has had chronic issues with his gums outside of irritation from these. 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 He reports cutting his hands at times and has acquired the goats only recently. No skin wounds were present on examination. Pyridium was started for bladder spasms and was helpful. He also developed diarrhea associated with IV antibiotic administration which improved before any stool specimen could be collected. He was educated on the importance of seeking medical attention if this diarrhea reemerged or persisted. Probiotics were given to assist with this. At time of discharge a [id number] examination was performed revealing hemodynamically stable and afebrile patient for greater than 48 hours who is in no acute distress. He was mentating and ambulating at baseline and tolerating p.o. Physical exam revealed a euvolemic patient with slight swelling in his hands but no santino edema. Cardiac exam revealed normal S1 and S2 heard with no evidence of murmurs, gallops, rubs. Lungs were clear to auscultation. Abdomen was soft and nontender. Of note, on lab work he had evidence of an acute kidney injury with a baseline creatinine around 1.3-1.4 (CKD Stage III). Creatinine increased to 1.7 in the setting of sepsis. He was then given 20 mg of Lasix IV after aggressive fluid resuscitation to help with some peripheral swelling. His creatinine stayed approximately 1.7-1.8 the following day, however, his GFR was greater than 50. This was discussed with his [employer] foreman Dr. Martinez. He was sent home in stable condition with a basic metabolic panel recommended next week. He was given a prescription for this. Results should be sent to his primary care doctor and Dr. Martinez for review. In the meantime he was advised to avoid Lasix. Renally dosed levaquin was given for 14 days based on ID recommendations. Total Time Total Time Spent Total Time Spent (In Minutes): 60 Total Time Includes: Examination of the Patient, Discharge Planning, Medication Reconciliation and Communication With Other Providers Discharge Plan Discharge Items Patient Disposition: Home - Self-Care Reason For Visit: SEPSIS Discharge Diagnosis: Sepsis, POA, resolved Alpha strep bacteremia Acute on chronic kidney disease Cirrhosis Pancytopenia Health Concerns: Please ensure you get repeat bloodwork (nonfasting, BMP) next week some time. Results should be sent to your primary care physician and Dr. Finn Martinez with Nephrology. This is to monitor your kidney function, which was decreased slightly at time of discharge. Activity: Resume your previous activity Non-emergency contact: Primary Care Provider Call non-emergency contact if: you have any medication questions, your symptoms worsen, your pain is not controlled, your pain is worsening, your pain is unu sual for you, your pain is concerning for you and you have a fever Follow-up/Referrals: Norris Truong [Primary Care Provider] - Diet: Low Sodium (2gm) Addtl Attending Provider Instructions: Please take all medications as instructed on discharge list below. You are being put on 14 days of antibiotics to treat a blood infection. Please finish the course, and check with your doctor regarding any new symptoms you are experiencing that are of concern for you including but not limited to fevers, chills, abdominal pain, persistent or increased diarrhea. Please ensure you get repeat bloodwork (nonfasting, BMP) next week some time. Results should be sent to your primary care physician and Dr. Finn Martinez with Nephrology. This is to monitor your kidney function, which was decreased slightly at time of discharge. Please avoid furosemide (Lasix) until this bloodwork is resulted and you have gotten permission to restart it from your physician. It is recommended that you have a one week follow-up post hospital discharge with your primary care physician. Someone will contact you from our staff to set this up Saturday. As discussed please do not cut foods in your hands or let your goats lick any open wounds. It is recommended that you see a dental specialist for evaluation of your gum issues. It is recommended that you see a [employer] to discuss treatment options for your psoriatic arthritis. It was a pleasure taking care of you! Please call if you have any questions or problems. You can reach a [facility] hospitalist on duty at [facility] 24 hours a day by calling [phone]. Take care of yourself. Liliana Fu, DO [facility] Hospitalist Pending Studies at Discharge: Yes Studies:: Blood cultures, preliminarily negative Stand-Alone Forms: My [facility] Medications and DC Order Prescriptions: New Florastor 250 mg Capsule 250 mg PO BID Qty: 14 RF: 0 phenazopyridine [Pyridium] 100 mg tablet 100 mg PO Q8H PRN (Reason: bladder spasms) 7 Days Qty: 21 RF: 0 levofloxacin [Levaquin] 500 mg tablet 500 mg PO DAILY 14 Days Qty: 14 RF: 0 Continued acetaminophen 500 mg tablet 1,000 mg PO DIRECTED PRN (Reason: Pain) RF: 0 omeprazole 20 mg Capsule,Delayed Release(Dr/Ec) 20 mg PO DAILY RF: 0 Discontinued furosemide 20 mg tablet 20 mg PO DIRECTED PRN (Reason: swelling) Qty: 30 RF: 0 Discharge Orders: Discharge Order (Routine); Ordered 11/09/18 Ordered By: Liliana Fu Admission Data Admit Date/Time: 11/06/18 17:09 Attending Provider: Liliana Fu Admit Provider: Leonard Ribeiro Primary Care Provider: Norris Truong Other Providers: Leonard Ribeiro ; Kate Cruz ; Gwyn Guzman
== END 2018-11-09 16:51 | disposition home or self-care (01) | DRG 872 ==
LOC: ED 14:02 → 2W 17:09

== ENCOUNTER 2019-01-12 10:49 | Inpatient (IN) ==
[2019-01-12] MEDS ORDERED: SODIUM CHLORIDE 0.9% 1000ML 1,000 ML IV ONE ×2 (11:02→13:49)
[2019-01-12] MEDS ORDERED: ACETAMINOPHEN 1,000 MG/100 ML VIAL IV STA (11:02)
[2019-01-12 11:14] LABS: Hematocrit (blood only) 32.2 % (42-52); Hemoglobin 11.3 g/dL (14.0-18.0); Mean Corpuscular Hemoglobin 35.1 pg (25-34); Mean Corpuscular Hgb Conc 35.1 g/dL (32-36); RDW Coefficient of Variation 15.1 % (11.5-14.5); RDW Standard Deviation 55.1 fL (36.4-46.3); Red Blood Count 3.22 M/uL (4.7-6.1); White Blood Count 4.26 K/uL (4.8-10.8)
[2019-01-12 11:19] LABS: Mean Platelet Volume 9.2 fL (7.4-10.4); Platelet Count 65 K/uL (130-400)
[2019-01-12 11:30] LABS: Appearance Urine Slightly Cloudy (Clear); Bilirubin Urine Negative (Negative); Blood Urine 3+ (Negative); Color Urine Yellow; Glucose Urine UA Negative (Negative); Ketones Urine Negative (Negative); Leukocyte Esterase Urine 3+ (Negative); Nitrite Urine Positive (Negative); Protein Urine Negative (Negative); Specific Gravity Urine 1.015 (1.000-1.030); Urobilinogen Urine Negative (Negative)
--- NOTE | 2019-01-12 11:30 | XRay Report ---
SINGLE VIEW CHEST CLINICAL HISTORY: Sepsis. FINDINGS: An AP, portable, upright chest radiograph is compared to study dated 11/06/2018. The examina tion is degraded by portable technique and apical lordotic positioning. The heart is top normal for p rojection noting atherosclerotic calcification of the thoracic aorta. The pulmonary vasculature is no ncongested. There is mild bibasilar atelectasis. The lungs and pleural spaces are otherwise clear. No pneumothorax is seen. The skeletal structures appear osteopenic. The bony thorax is grossly intact. IMPRESSION: No acute cardiopulmonary abnormality. Electronically signed by: Edward Foreman M.D. 01/12/2019 11:28 AM
[2019-01-12 11:39] LABS: Albumin Level 2.8 gm/dl (3.4-5.0); BUN Creatinine Ratio 11.1 (10-20); Calcium 9.3 mg/dl (8.5-10.1); Creatinine Clr Calc Pharmacy 66.1 ml/min; Est GFR (African American) 56.7; Est GFR (Non-African American) 48.9; Magnesium 1.7 mg/dl (1.8-2.4); Potassium 3.6 mmol/L (3.5-5.1)
[2019-01-12 11:42] LABS: Albumin Globulin Ratio 0.6 (0.9-2); Bilirubin,Total 1.3 mg/dl (0.2-1); Globulin 4.8 gm/dl (2.5-4.0); Phosphorus 1.7 mg/dl (2.5-4.9); Total Protein 7.6 gm/dl (6.4-8.2)
[2019-01-12 11:43] LABS: Basophils # (auto) 0.01 K/uL (0-0.2); Basophils % (auto) 0.2 %; Eosinophils # (auto) 0.12 K/uL (0-0.5); Eosinophils % (auto) 2.8 %; Immature Granulocytes # (auto) 0.01 K/uL (0.00-0.02); Immature Granulocytes % (auto) 0.2 %; Lymphocytes # (auto) 0.39 K/uL (1.2-3.4); Lymphocytes % (auto) 9.2 %; Monocytes # (auto) 0.13 K/uL (0.11-0.59); Monocytes % (auto) 3.1 %; Neutrophils % (auto) 84.5 %
[2019-01-12 11:51] LABS: Epithelial Cell Urine >30 /lpf (0-5)
[2019-01-12 11:54] LABS: Bacteria Urine 4+ (Negative); RBC Urine >30 /hpf (0-4); WBC Urine >30 /hpf (0-5)
[2019-01-12 12:09] LABS: Base Excess VBG 2.3 mEq/L; HCO3 VBG 26 mmol/L; PCO2 VBG 36 mmHg (38-50); PO2 VBG 24 mmHg; pH VBG 7.48 (7.36-7.41)
[2019-01-12 12:10] LABS: iSTAT Creatinine 1.6 mg/dl (0.6-1.3); iSTAT Hemoglobin 9.9 g/dl (14.0-18.0); iSTAT Ionized Calcium 1.23 mmol/l (1.12-1.32); iSTAT Potassium 3.6 mEq/L (3.3-5.0)
[2019-01-12 12:11] LABS: Oxygen Saturation VBG < 60.0 %
--- NOTE | 2019-01-12 12:31 | CT Scan Report ---
CT SCAN OF THE ABDOMEN AND PELVIS WITHOUT IV CONTRAST CLINICAL HISTORY: Sepsis. COMPARISON STUDY: Abdominal CT dated 11/06/2018. TECHNIQUE: CT scan of the abdomen and pelvis is performed from the lung bases to the proximal femora. Images are reviewed in the axial, sagittal, and coronal planes. IV contrast was not administered for this examination as per the referring clinician. Note that the examination was performed in suboptim al fashion without IV contrast. A dose lowering technique was utilized adhering to the principles of ALARA. CT DOSE: 1528.13 mGy.cm FINDINGS: Lung bases: The heart is normal in size and without pericardial effusion. The lung bases are clear no ting mild bibasilar atelectasis. Liver: The unenhanced liver is cirrhotic in morphology and heterogeneous in attenuation. There is nod ularity of the hepatic surface contour, as well as hypertrophy of the left lobe and caudate. There is no intrahepatic biliary ductal dilatation. Gallbladder: Surgically absent noting clips in the gallbladder fossa. Spleen: The spleen is enlarged, measuring 18 cm in length. There are large perisplenic collaterals. Pancreas: The unenhanced pancreas is atrophic and grossly unremarkable. Adrenal glands: Unremarkable. Kidneys: The unenhanced kidneys demonstrate cortical atrophy and are without hydronephrosis. There is a punctate nonobstructing left renal calculus. There is no evidence of contour deforming renal mass lesion. Abdominal vasculature: The abdominal aorta is normal in course and caliber noting mild atheroscleroti c calcification. Bowel: The small bowel and colon are normal in course and caliber. The appendix is not identified an d reported surgically absent. Peritoneum: There is no intraperitoneal free a or abdominal ascites. Lymphadenopathy: None. Pelvic viscera: The bladder wall appears mildly thickened and there is pericystic inflammation. The p rostate gland is diminutive and heterogeneous. Skeletal structures: The skeletal structures are osteopenic. Mild lumbosacral spondylosis is observed . No lytic or blastic lesions are seen. IMPRESSION: 1. Suboptimal examination without oral and IV contrast. 2. Question cystitis. Correlation with clinical findings and urinalysis will be required. 3. Cirrhotic liver morphology. 4. Splenomegaly indicates portal hypertension. 5. Left-sided nephrolithiasis. 6. Additional findings as above. Electronically signed by: Edward Foreman M.D. 01/12/2019 12:29 PM
[2019-01-12 12:33] LABS: INR 1.2 (0.9-1.1); Partial Thromboplastin Time 27.2 Seconds (21.0-31.0); Prothrombin Time 12.3 Seconds (9.0-12.0)
[2019-01-12] MEDS ORDERED: PIPERACILLIN/TAZOBACTAM 4.5 GM/120 ML BAG IV ONE (13:09)
[2019-01-12] MEDS ORDERED: PIPERACILL/TAZOBAC CONSULT ACTIVE PRN (13:09)
[2019-01-12] MEDS ORDERED: VANCOMYCIN CONSULT ACTIVE PRN (13:09)
[2019-01-12] MEDS ORDERED: VANCOMYCIN HCL 2,500 MG in SODIUM CHLORIDE 0.9% 500 ML IV ONE (13:09)
[2019-01-12] MEDS ORDERED: MAGNESIUM SULFATE / D5W 1 GM/100 ML BAG IV STA (13:26)
[2019-01-12] MEDS ORDERED: POTASSIUM PHOS 3 MMOL/1 ML INFUSION IV STA (13:26)
[2019-01-12] MEDS ORDERED: POTASSIUM PHOSPHATE 6 MMOL in 0.9 % SODIUM CHLORIDE 100 ML IV ONE (13:45)
--- NOTE | 2019-01-12 14:36 | History & Physical Report ---
Date of Service January 12, 2019 Assessment & Plan (1) Sepsis: (2) UTI (urinary tract infection): -Admit to telemetry -Patient presenting from home with reports of chills and generally not feeling well; similar symptoms in the past when he was septic from UTI -On presentation, febrile at 39.6 and tachycardic; BP initially stable however dropped to 88/49, additional 1 L IVF bolus ordered; lactic acid 1.7 -S/P Vanco and Zosyn in the ED, will continue with -Reevaluate BP after IVF bolus -Urine and blood cultures -History of ureteral stricture S/P reconstructive surgery; check bladder scan and if retaining, will obtain urology consult (patient follows with Dr. Guzman) (3) 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: -Appears compensated -Not currently on any routine medications -Follows with Dr. Badillo (4) Pancytopenia: (5) Anemia: -Both chronic due to underlying liver disease -Hgb and platelets at baseline (6) CKD (chronic kidney disease), stage III: -Baseline creatinine mid to high 1's -Noted to be 1.4 today -Monitor renal functions, avoid nephrotoxic agents when able -Follows with Dr. Martinez (7) GERD (gastroesophageal reflux disease): -Continue PPI (8) DVT prophylaxis: -SCDs due to thrombocytopenia History of Present Illness Chief Complaint: Chills, generally not feeling well Primary Care Provider: Norris Truong 63-year-old male who presents the ED for evaluation of chills and generally not feeling well. Patient reports he has history of sepsis secondary to urinary tract infection and reports he feels very similar to how he has in the past with sepsis. Patient reports he woke up around 4:00 in the morning and had shaking chills. He did not take his temperature. Yesterday, he noted his urine to have a foul, strong odor. While in the ED, he developed some mild generalized abdominal pain. Denies nausea and vomiting. No diarrhea. Reports he otherwise has been feeling well recently. No chest pain or shortness of breath. Denies lightheadedness and dizziness. He has chronic back pain which is unchanged from baseline. In the ED, patient is found to be febrile at 39.6 and tachycardic. In itially BP was stable however during my exam, noted to be 88/49. Additional 1 L IVF bolus was ordered. UA suggests UTI. CT ABD/pelvis is negative for acute findings. Patient was given IV Tylenol, IV Zosyn, IV Vanco, IVF, and potassium and magnesium repletion. Allergies Allergy/AdvReac Type Severity Reaction Status Date / Time tamsulosin Allergy Intermediate HIVES Verified 01/12/19 12:40 Home Medications Home Medications Medication Instructions Recorded Confirmed Type omeprazole 20 mg PO DAILY 01/12/19 01/12/19 History Past Med/Surg History Medical History Anemia (Chronic) Bacteremia CKD (chronic kidney disease), stage III (Chronic) GERD (gastroesophageal reflux disease) (Chronic) Herniated disc (Chronic) LUMBAR AREA Hypertension (Chronic) HX Hypothyroidism (Chronic) Kidney stones (Chronic) 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 (Chronic) Pancytopenia Psoriatic arthritis (Chronic) PVT (portal vein thrombosis) Septicemia due to enterococcus (Resolved) Spinal stenosis (Chronic) EPIDURAL INJECTIONS IN PAST FOR PAIN RELIEF Surgical History History of appendectomy (Chronic) History of arthroscopy (Chronic) RT KNEE History of cataract surgery (Chronic) RT/LEFT History of cholecystectomy (Chronic) History of colonoscopy (Chronic) History of esophagogastroduodenoscopy (EGD) (Chronic) History of herniorrhaphy (Chronic) History of lithotripsy (Chronic) History of liver biopsy (Chronic) History of repair of rotator cuff (Chronic) RT/LEFT History of tooth extraction (Chronic) Nausea and vomiting after administration of anesthetic agent (Resolved) Neuroma (Chronic) REMOVED FROM RT/LEFT FOOT Suprapubic catheter (Resolved) AND REMOVAL Family History Grandmother (Maternal) Family history of diabetes mellitus Social History Preferred Language: Portuguese Communication Ability: Effective Medicare Biller Required: No Beliefs That Will Affect Care: None marital status: Current Living Situation: Spouse Other Information That Helps Us Care for You: No Feels Safe at Home: Yes Safety Concerns: Feels Safe At This Time Smoking Status: Never smoker Second Hand Exposure: No ; Hx Alcohol Use: No Hx Substance Use: No Review of Systems Review of Systems: ROS per HPI, all other systems reviewed and negative Physical Exam Constitutional: WD/WN, vitals as above + obese Eyes: PERRL, conjunctivae normal, anicteric sclerae ENMT: external ear and nose normal, oropharynx normal Respiratory: normal respiratory effort, lungs clear to auscultation Cardiovascular: Rate/Rhythm: regular rhythm and + tachycardic Vessels: normal peripheral pulses Extremities: + edema (+2 edema BLE) Gastrointestinal (Abdomen): Inspection/Auscultation: normal bowel sounds Percussion/Palpation: + abdomen tender (mild, generalized) and abdomen soft; no guarding and no hepatosplenomegaly Musculoskeletal: no cyanosis or clubbing, extremities motor strength 5/5 Skin: no rashes, warm and dry Neurologic: PERRL, EOMI, accommodation nl, no face palsy, no dysarthria Psychiatric: A+Ox3, euthymic affect Results & Data Vital Signs (Past 12 Hours) Vital Signs Temp Pulse Pulse Resp BP BP Pulse Ox 01/12/19 14:06 108 H 24 90/47 L 94 01/12/19 13:30 38.4 C H 115 H 24 88/49 L 94 01/12/19 11:30 118 H 20 126/63 94 01/12/19 11:00 112 H 20 115/73 94 01/12/19 10:50 39.6 C H 118 H 20 149/42 H 95 Laboratory Results Short CBC 01/12/19 Range/Units 10:30 WBC 4.26 L (4.8-10.8) K/uL Hgb 11.3 L (14.0-18.0) g/dL Hct 32.2 L (42-52) % Plt Count 65 L (130-400) K/uL BMP 01/12/19 10:30 Sodium 140 Potassium 3.6 Chloride 107 Carbon Dioxide 27 BUN 17 Creatinine 1.49 H Glucose 113 H Calcium 9.3 Liver Function 01/12/19 Range/Units 10:30 Total Bilirubin 1.3 H (0.2-1) mg/dl AST 54 H (15-37) U/L ALT 28 (12-78) U/L Alkaline Phosphatase 157 H (45-117) U/L Albumin 2.8 L (3.4-5.0) gm/dl Urine 01/12/19 Range/Units 10:58 Urine Color Yellow Urine Appearance Slightly Cloudy (Clear) Urine pH 7.0 (4.5-7.5) Ur Specific [place] 1.015 (1.000-1.030) Urine Protein Negative (Negative) Urine Glucose (UA) Negative (Negative) Diagnostic Findings CT ABD/PELVIS IMPRESSION: 1. Suboptimal examination without oral and IV contrast. 2. Question cystitis. Correlation with clinical findings and urinalysis will be required. 3. Cirrhotic liver morphology. 4. Splenomegaly indicates portal hypertension. 5. Left-sided nephrolithiasis. 6. Additional findings as above. CXR IMPRESSION: No acute cardiopulmonary abnormality. Code Status & VTE Plan Code Status Patient is a full code as per my discussion with him. VTE Prophylaxis Plan VTE Prophylaxis will be ordered: Yes Supervising Physician Co-Signing Physician Notes Attending addendum: The patient was seen and examined in emergency room Is a 63-year-old male with past medical history of urethral stricture, history of reconstructive surgery, CKD, liver cirrhosis secondary to [place], psoriatic arthritis, hypertension and chronic anemia presented to ER with complaints of fever since this morning. He noted to have dark urine and foul-smelling urine this morning Complaint to have passing less urine for the last day or 2 On examination No apparent distress at rest Febrile with temperature of 38.0 C and tachycardic with blood pressure on the lower side of systolic 98 Chest-clear to auscultate bilaterally Heart-S1-S2 regular Abdomen-benign, minimal hypogastric tenderness, bowel sounds present Extremities-trace edema bilaterally JEWELRY INSPECTOR-alert, awake and oriented x3 Admission labs and imaging studies reviewed Has UTI with sepsis Getting adequate intravenous fluid and intravenous antibiotics have been started Agree with assessment and plan as outlined above by Sondra Ag (1) UTI (urinary tract infection) Hematuria presence: with hematuria Urinary tract infection type: site unspecified Qualified Code(s): N39.0 - Urinary tract infection, site not specified; R31.9 - Hematuria, unspecified (2) Sepsis Sepsis acute organ dysfunction status: unspecified Sepsis type: sepsis due to unspecified organism Qualified Code(s): A41.9 - Sepsis, unspecified organism
[2019-01-12] MEDS ORDERED: SODIUM CHLORIDE 0.9% 1000ML 1,000 ML IV SCH (16:11)
[2019-01-12] MEDS: PIPERACILLIN/TAZOBACTAM 3.375 GM in DEXTROSE 5% 100 ML IV SCH (17:26)
[2019-01-12] MEDS: SODIUM CHLORIDE 0.9% 1000ML 1,000 ML IV SCH (17:42)
[2019-01-12] MEDS: ACETAMINOPHEN 325 MG TAB PO PRN ×2 (17:42→23:31)
--- NOTE | 2019-01-12 20:01 | Pharmacy Report ---
Pharmacy Abx Initial Consult - Date of Service January 12, 2019 - Pharmacy Dosing Scope Date of Consult: 01/12/19 Consultation requested by: Sondra Rodriguez Pharmacy is consulted to initiate Vancomycin and Zosyn IV dosing therapy, order appropriate labs and adjust drug dose/frequency. - Subjective The patient is a 63 year old M admitted on 01/12/19 13:48. - Objective Height: 5 ft 9 in Weight: 127.2 kg (BMI 41.4) Vital Signs (Past 12hrs): Vital Signs Temp Pulse Pulse Resp BP BP BP 01/12/19 19:48 37.7 C H 110 H 18 98/60 L 01/12/19 19:43 109 H 01/12/19 18:34 39.4 C H 113 H 20 114/70 01/12/19 17:39 37.7 C H 01/12/19 17:31 37.1 C 111 H 22 104/61 01/12/19 16:36 90/58 L 01/12/19 16:07 37.3 C 106 H 20 72/47 L 89/44 L 01/12/19 15:19 38.0 C H 01/12/19 15:16 102 H 20 98/47 L 01/12/19 15:00 102 H 26 H 101/53 L 01/12/19 14:31 102 H 24 133/56 L 01/12/19 14:06 108 H 24 90/47 L 01/12/19 13:30 38.4 C H 115 H 24 88/49 L 01/12/19 11:30 118 H 20 126/63 01/12/19 11:00 112 H 20 115/73 01/12/19 10:50 39.6 C H 118 H 20 149/42 H Pulse Ox 01/12/19 19:48 94 01/12/19 19:43 01/12/19 18:34 96 01/12/19 17:39 01/12/19 17:31 98 01/12/19 16:36 01/12/19 16:07 95 01/12/19 15:19 01/12/19 15:16 95 01/12/19 15:00 94 01/12/19 14:31 102 H 01/12/19 14:06 94 01/12/19 13:30 94 01/12/19 11:30 94 01/12/19 11:00 94 01/12/19 10:50 95 Lab Results (24hrs): Laboratory Tests (24 Hours) 01/12/19 01/12/19 10:30 10:30 WBC 4.26 L Neut # (Auto) 3.60 Creatinine 1.49 H Est Cr Clr Drug Dosing 66.1 Micro Results: 01/12/19 11:55 Aerobic Blood Culture - Pending Blood Anaerobic Blood Culture - Pending 01/12/19 11:52 Aerobic Blood Culture - Pending Blood Anaerobic Blood Culture - Pending 01/12/19 10:58 Urine Culture - Pending Urine,Clean Catch - Risk Factors for Resistance * Antimicrobial use within the last 90 days Levaquin(11/13) - Assessment & Plan Assessment 63 year old M presents with chills and generally not feeling well. Had similar symptoms in past when he was septic from a UTI. Pt was febrile (103) and tachycardic. Patient noted his urine to have a foul, strong odor. While in the ER he developed mild, generalized abdominal pain. He states that he has been passing less urine for the last day or two. Urinalysis positive for blood, nitrite, 3+ leukocyte esterase, and >30 WBC's. Provider wanted to continue with broad coverage until cultures resulted . Plan Vancomycin & Zosyn for treatment of Sepsis/UTI Vancomycin IV * Estimated PK Parameters: Vd 0.61 L/kg, Buck 0.059 hr-1, t1/2 11.7 hr * Loading dose: 2500 mg (~20 mg/kg) * Maintenance dose: 1500 mg IV (~12 mg/kg) every 14 hours * Goal trough level : ~ 15 mcg/mL * Trough level ordered for 01/14/19 @ 0830. * A less than traditional dose and/or extended dosing interval has/have been selected due to likelihood of drug accumulation in obese patient/patient with h/o CKD. Checking trough early due to these risk factors. Piperacillin/tazobactam * 4.5 g bolus administered over 30 minutes, then 3.375 g IV extended infusion every 8 hours for CrCl greater than 20 mL/min OR every 12 hours for CrCl 20 mL/min or less and dialysis. * Aggressive dosing selected due to critically ill status/BMI 35 or more/history of cystic fibrosis. Pharmacy will continue to follow and will adjust dose/frequency as necessary. Thank you.
[2019-01-12] MEDS ORDERED: INFLUENZA ADMINISTRATION CHARGE ONE (21:00)
[2019-01-12] MEDS ORDERED: INFLUENZA VIRUS QUAD VACCINE 0.5 ML SYR IM ONE (21:00)
--- NOTE | 2019-01-12 22:35 | Emergency Department Note ---
Entered by Ольга Muse acting as a scribe for Dusty Ghosh MD History of Present Illness General Chief complaint: Illness Time Seen by Provider: 01/12/19 11:02 Source: patient History of Present Illness Onset (ago): hour(s) 7 Location: upper extremity and lower extremity Pain Consistency: + other (episode) Maximum Pain Intensity: 6 Quality: + other (illness) Relieved By: not by medication (Tylenol) Associated symptoms: + denies other symptoms (congestion, dysuria), + fever/chills, + weakness and + other (body aches, strong smelling urine, leg swelling); no cough The patient is a 63 year old male who presents to the Emergency Room with complaints of an episode of an illness starting 7 hours ago. The patient state that he was in sitting on the couch this morning and started having chills. He states that he has also had body aches, weakness, and a fever of 103. He reports that he has noticed that he has also had a strong smelling urine, similar to the smell of medicine. He reports that he is on Pyridium that was prescribe when he left here. He notes that he feels similar to when he was here in October, but not as bad. He reports that he took 2 Tylenol 3 hours ago with no relief. The patient notes that he has also had issues with not being able to empty his bladder the whole way. He states that he had a urethral reconstruction, but it didnt help. He reports that they have talked about using a straight tube that he would have to sit to urinate, but he cannot have a catheter. The patient complains of increased leg swelling. He notes that they took him off his Lasix as his kidney function hasnt been great. The patient denies cough, congestion, dysuria, and his urine ever smelling like this before. Home Medications Home Medications Medication Instructions Recorded Confirmed Type omeprazole 20 mg PO DAILY 01/12/19 01/12/19 History Allergies Allergy/AdvReac Type Severity Reaction Status Date / Time tamsulosin Allergy Intermediate HIVES Verified 01/12/19 12:40 Past Med/Surg History Medical History Anemia (Chronic) Bacteremia CKD (chronic kidney disease), stage III (Chronic) GERD (gastroesophageal reflux disease) (Chronic) Herniated disc (Chronic) LUMBAR AREA Hypertension (Chronic) HX Hypothyroidism (Chronic) Kidney stones (Chronic) 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 (Chronic) Pancytopenia Psoriatic arthritis (Chronic) PVT (portal vein thrombosis) Septicemia due to enterococcus (Resolved) Spinal stenosis (Chronic) EPIDURAL INJECTIONS IN PAST FOR PAIN RELIEF Surgical History History of appendectomy (Chronic) History of arthroscopy (Chronic) RT KNEE History of cataract surgery (Chronic) RT/LEFT History of cholecystectomy (Chronic) History of colonoscopy (Chronic) History of esophagogastroduodenoscopy (EGD) (Chronic) History of herniorrhaphy (Chronic) History of lithotripsy (Chronic) History of liver biopsy (Chronic) History of repair of rotator cuff (Chronic) RT/LEFT History of tooth extraction (Chronic) Nausea and vomiting after administration of anesthetic agent (Resolved) Neuroma (Chronic) REMOVED FROM RT/LEFT FOOT Suprapubic catheter (Resolved) AND REMOVAL Family History Grandmother (Maternal) Family history of diabetes mellitus Social History Preferred Language: Slovak Communication Ability: Effective Integrated Specialist Required: No Beliefs That Will Affect Care: None marital status: Current Living Situation: Spouse Other Information That Helps Us Care for You: No Feels Safe at Home: Yes Safety Concerns: Feels Safe At This Time Smoking Status: Never smoker Second Hand Exposure: No ; Hx Alcohol Use: No Hx Substance Use: No Review of Systems See HPI for pertinent positives & negatives. and A total of 10 systems reviewed and were otherwise negative Physical Exam Vital Signs Vital Signs - 24 hr 01/12/19 10:50 01/12/19 11:00 01/12/19 11:30 Temperature 39.6 C H Temperature Source Oral Pulse Rate 118 H Pulse Rate [Right] 112 H 118 H Respiratory Rate 20 20 20 Respiratory Effort / Characteristics Non-Labored Non-Labored Respiratory Depth Normal Normal Blood Pressure 149/42 H Blood Pressure [Right Arm] 115/73 126/63 Blood Pressure Mean 77 Blood Pressure Mean [Right Arm] 87 84 Pulse Oximetry 95 94 94 Oxygen Delivery Method Room Air Room Air Room Air Sepsis Recent Fever Within 48 Hours No Sepsis Action Taken by Nursing No Action Required 01/12/19 13:30 Temperature 38.4 C H Temperature Source Oral Pulse Rate Pulse Rate [Right] 115 H Respiratory Rate 24 Respiratory Effort / Characteristics Non-Labored Respiratory Depth Normal Blood Pressure Blood Pressure [Right Arm] 88/49 L Blood Pressure Mean Blood Pressure Mean [Right Arm] 62 Pulse Oximetry 94 Oxygen Delivery Method Room Air Sepsis Recent Fever Within 48 Hours Sepsis Action Taken by Nursing GENERAL: Awake, alert, fatigued-appearing, in no distress HENT: Normocephalic, atraumatic. Oropharynx with dry mucous membranes and otherwise unremarkable. EYES: Normal conjunctiva. Sclera non-icteric. NECK: Supple. No nuchal rigidity. FROM. No JVD. RESPIRATORY: Clear to auscultation bilaterally. CARDIAC: Tachycardic rate, normal rhythm. Extremities warm and well perfused. Pulses equal. ABDOMEN: Soft, non-distended. Lower abdominal discomfort without discrete tenderness. No rebound or guarding. No masses. RECTAL: Deferred. MUSCULOSKELETAL: Chest examination reveals no tenderness. The back is symmetrical on inspection without obvious abnormality. There is no CVA t enderness to palpation. No joint edema. LOWER EXTREMITIES: Calves are equal size bilaterally and non-tender. 1+ lower extremity edema bilaterally. No discoloration. NEURO: Normal sensorium. No sensory or motor deficits noted. SKIN: No rash or jaundice noted. Course Course 1101: The patient was evaluated in room C3. A complete history and physical exam was performed. 1314: I discussed the patient's case with BRENDA Christianson. She will evaluate the patient for further management. Consultations Consultation #1: I discussed the patient's case with BRENDA Christianson. She will evaluate the patient for further management. Time: 13:14 Administered Medications Acetaminophen (Tylenol) 650 mg PO Q4H PRN PRN Reason: Pain or Fever Stop: 02/11/19 16:07 Last Admin: 01/12/19 17:42 Dose: 650 mg Documented by: [id number] Sodium Chloride (Nss 1000ml) 1,000 mls @ 125 mls/hr IV .Q8H LUZ Stop: 02/11/19 16:07 Last Admin: 01/12/19 17:42 Dose: 100 mls/hr Documented by: [id number] Piperacillin Sod/Tazobactam (Sod 3.375 gm/ Dextrose) 115 mls @ 28.75 mls/hr IV Q8H [facility]; Protocol Stop: 01/22/19 17:59 Last Infusion: 01/12/19 21:20 Dose: 0 mls/hr Documented by: [id number] Admin: 01/12/19 17:26 Dose: 28.8 mls/hr Documented by: [id number] Discontinued Medications Acetaminophen (Ofirmev) 1,000 mg in 100 mls @ 400 mls/hr IV NOW STA Stop: 01/12/19 11:16 Last Infusion: 01/12/19 13:43 Dose: 0 mls/hr Documented by: [id number] Admin: 01/12/19 12:14 Dose: 400 mls/hr Documented by: [id number] Sodium Chloride (Nss 1000ml) 1,000 mls @ 999 mls/hr IV .Q1H1M ONE Stop: 01/12/19 12:02 Last Infusion: 01/12/19 14:33 Dose: 0 mls/hr Documented by: [id number] Admin: 01/12/19 12:14 Dose: 999 mls/hr Documented by: [id number] Piperacillin Sod/Tazobactam Sod (Zosyn) 4.5 gm in 120 mls @ 240 mls/hr IV NOW ONE Stop: 01/12/19 13:38 Last Infusion: 01/12/19 16:09 Dose: 0 mls/hr Documented by: [id number] Admin: 01/12/19 13:36 Dose: 240 mls/hr Documented by: [id number] Vancomycin HCl 2,500 mg/ (Sodium Chloride) 550 mls @ 200 mls/hr IV NOW ONE Stop: 01/12/19 15:53 Last Infusion: 01/12/19 17:52 Dose: 0 mls/hr Documented by: [id number] Admin: 01/12/19 14:34 Dose: 200 mls/hr Documented by: [id number] Magnesium Sulfate/Dextrose (Magnesium Sulfate / D5w) 1 gm in 100 mls @ 100 mls/hr IV Q1H STA Stop: 01/12/19 14:25 Last Infusion: 01/12/19 16:09 Dose: 0 mls/hr Documented by: [id number] Admin: 01/12/19 13:43 Dose: 100 mls/hr Documented by: [id number] Potassium Phosphate 6 mmol/ (Sodium Chloride) 102 mls @ 88 mls/hr IV ONE ONE Stop: 01/12/19 14:54 Last Infusion: 01/12/19 16:09 Dose: 0 mls/hr Documented by: [id number] Admin: 01/12/19 14:43 Dose: 88 mls/hr Documented by: [id number] Sodium Chloride (Nss 1000ml) 1,000 mls @ 999 mls/hr IV .Q1H1M ONE Stop: 01/12/19 14:49 Last Infusion: 01/12/19 16:09 Dose: 0 mls/hr Documented by: [id number] Admin: 01/12/19 14:44 Dose: 999 mls/hr Documented by: [id number] Sodium Chloride (Nss 1000ml) 1,000 mls @ 999 mls/hr IV .Q1H1M LUZ Stop: 01/12/19 17:11 Last Infusion: 01/12/19 17:52 Dose: 0 mls/hr Documented by: [id number] Admin: 01/12/19 16:38 Dose: 999 mls/hr Documented by: [id number] Critical Care Time Critical Care Time: Yes Total Critical Care Time: 35 I have personally spent greater than 35 minutes of critical care time in the direct management of this patient. This includes bedside care, interpretation of diagnostic studies, and testing, discussion with consultants, patient, and family members, and other required patient management activities. This 35 minutes is in excess of all separately billable procedures. Medical Decision Making Differential Diagnosis Differential diagnosis: Etiologies such as viral syndrome, otitis, pharyngitis, pneumonia, influenza, meningitis, urinary tract infection, sepsis, bacteremia, as well as others were entertained. Medical Records Attestation: I reviewed the patient's medical records. Home Medications Current Medication List: was personally reviewed by me Laboratory Data Attestation: I reviewed the patient's lab results. Result diagrams: 01/12/19 10:30 01/12/19 10:30 Lab Results 01/12/19 01/12/19 01/12/19 Range/Units 10:30 10:30 10:58 WBC 4.26 L (4.8-10.8) K/uL RBC 3.22 L (4.7-6.1) M/uL Hgb 11.3 L (14.0-18.0) g/dL POC Hgb (14.0-18.0) g/dl Hct 32.2 L (42-52) % POC Hct (42-52) % MCV 100.0 (80-100) fL MCH 35.1 H (25-34) pg MCHC 35.1 (32-36) g/dL RDW Std Deviation 55.1 H (36.4-46.3) fL RDW Coeff of Miguel 15.1 H (11.5-14.5) % Plt Count 65 L (130-400) K/uL MPV 9.2 (7.4-10.4) fL Immature Gran % (Auto) 0.2 % Neut % (Auto) 84.5 % Lymph % (Auto) 9.2 % [place] % (Auto) 3.1 % Eos % (Auto) 2.8 % Baso % (Auto) 0.2 % Immature Gran # (Auto) 0.01 (0.00-0.02) K/uL Neut # (Auto) 3.60 (1.4-6.5) K/uL Lymph # (Auto) 0.39 L (1.2-3.4) K/uL [place] # (Auto) 0.13 (0.11-0.59) K/uL Eos # (Auto) 0.12 (0-0.5) K/uL Baso # (Auto) 0.01 (0-0.2) K/uL PT (9.0-12.0) Seconds INR (0.9-1.1) APTT (21.0-31.0) Seconds PTT Ratio VBG pH (7.36-7.41) VBG pCO2 (38-50) mmHg VBG pO2 mmHg VBG HCO3 mmol/L VBG O2 Saturation % VBG Base Excess mEq/L Barometric Pressure mm/Hg POC Sodium (135-144) mEq/L Sodium 140 (136-145) mmol/L POC Potassium (3.3-5.0) mEq/L Potassium 3.6 (3.5-5.1) mmol/L POC Chloride (101-112) mEq/L Chloride 107 (98-107) mmol/L Carbon Dioxide 27 (21-32) mmol/L POC Total CO2 (24-31) mEq/l Anion Gap 6.0 (3-11) POC Anion Gap (16-25) mmol/L POC BUN (7-18) mg/dl BUN 17 (7-18) mg/dl Creatinine 1.49 H (0.6-1.4) mg/dl POC Creatinine (0.6-1.3) mg/dl Est Cr Clr Drug Dosing 66.1 ml/min Est GFR ( Amer) 56.7 Est GFR (Non-Af Amer) 48.9 BUN/Creatinine Ratio 11.1 (10-20) Glucose 113 H (70-99) mg/dl POC Glucose (other) (70-99) mg/dl Lactate (0.4-2.0) mmol/L Calcium 9.3 (8.5-10.1) mg/dl POC Ioniz Calcium Kojo (1.12-1.32) mmol/l Phosphorus 1.7 L (2.5-4.9) mg/dl Magnesium 1.7 L (1.8-2.4) mg/dl Total Bilirubin 1.3 H (0.2-1) mg/dl AST 54 H (15-37) U/L ALT 28 (12-78) U/L Alkaline Phosphatase 157 H (45-117) U/L Total Protein 7.6 (6.4-8.2) gm/dl Albumin 2.8 L (3.4-5.0) gm/dl Globulin 4.8 H (2.5-4.0) gm/dl Albumin/Globulin Ratio 0.6 L (0.9-2) Urine Color Yellow Urine Appearance Slightly Cloudy (Clear) Urine pH 7.0 (4.5-7.5) Ur Specific [place] 1.015 (1.000-1.030) Urine Protein Negative (Negative) Urine Glucose (UA) Negative (Negative) Urine Ketones Negative (Negative) Urine Blood 3+ H (Negative) Urine Nitrite Positive A (Negative) Urine Bilirubin Negative (Negative) Urine Urobilinogen Negative (Negative) Ur Leukocyte Esterase 3+ H (Negative) Urine RBC >30 H (0-4) /hpf Urine WBC >30 H (0-5) /hpf Ur Epithelial Cells >30 H (0-5) /lpf Urine Bacteria 4+ H (Negative) 01/12/19 01/12/19 01/12/19 Range/Units 11:52 11:52 11:52 WBC (4.8-10.8) K/uL RBC (4.7-6.1) M/uL Hgb (14.0-18.0) g/dL POC Hgb (14.0-18.0) g/dl Hct (42-52) % POC Hct (42-52) % MCV (80-100) fL MCH (25-34) pg MCHC (32-36) g/dL RDW Std Deviation (36.4-46.3) fL RDW Coeff of Miguel (11.5-14.5) % Plt Count (130-400) K/uL MPV (7.4-10.4) fL Immature Gran % (Auto) % Neut % (Auto) % Lymph % (Auto) % [place] % (Auto) % Eos % (Auto) % Baso % (Auto) % Immature Gran # (Auto) (0.00-0.02) K/uL Neut # (Auto) (1.4-6.5) K/uL Lymph # (Auto) (1.2-3.4) K/uL [place] # (Auto) (0.11-0.59) K/uL Eos # (Auto) (0-0.5) K/uL Baso # (Auto) (0-0.2) K/uL PT 12.3 H (9.0-12.0) Seconds INR 1.2 H (0.9-1.1) APTT 27.2 (21.0-31.0) Seconds PTT Ratio 1.0 VBG pH 7.48 H (7.36-7.41) VBG pCO2 36 L (38-50) mmHg VBG pO2 24 mmHg VBG HCO3 26 mmol/L VBG O2 Saturation < 60.0 % VBG Base Excess 2.3 mEq/L Barometric Pressure 726.7 mm/Hg POC Sodium (135-144) mEq/L Sodium (136-145) mmol/L POC Potassium (3.3-5.0) mEq/L Potassium (3.5-5.1) mmol/L POC Chloride (101-112) mEq/L Chloride (98-107) mmol/L Carbon Dioxide (21-32) mmol/L POC Total CO2 (24-31) mEq/l Anion Gap (3-11) POC Anion Gap (16-25) mmol/L POC BUN (7-18) mg/dl BUN (7-18) mg/dl Creatinine (0.6-1.4) mg/dl POC Creatinine (0.6-1.3) mg/dl Est Cr Clr Drug Dosing ml/min Est GFR ( Amer) Est GFR (Non-Af Amer) BUN/Creatinine Ratio (10-20) Glucose (70-99) mg/dl POC Glucose (other) (70-99) mg/dl Lactate 1.7 (0.4-2.0) mmol/L Calcium (8.5-10.1) mg/dl POC Ioniz Calcium Kojo (1.12-1.32) mmol/l Phosphorus (2.5-4.9) mg/dl Magnesium (1.8-2.4) mg/dl Total Bilirubin (0.2-1) mg/dl AST (15-37) U/L ALT (12-78) U/L Alkaline Phosphatase (45-117) U/L Total Protein (6.4-8.2) gm/dl Albumin (3.4-5.0) gm/dl Globulin (2.5-4.0) gm/dl Albumin/Globulin Ratio (0.9-2) Urine Color Urine Appearance (Clear) Urine pH (4.5-7.5) Ur Specific [place] (1.000-1.030) Urine Protein (Negative) Urine Glucose (UA) (Negative) Urine Ketones (Negative) Urine Blood (Negative) Urine Nitrite (Negative) Urine Bilirubin (Negative) Urine Urobilinogen (Negative) Ur Leukocyte Esterase (Negative) Urine RBC (0-4) /hpf Urine WBC (0-5) /hpf Ur Epithelial Cells (0-5) /lpf Urine Bacteria (Negative) 01/12/19 Range/Units 11:57 WBC (4.8-10.8) K/uL RBC (4.7-6.1) M/uL Hgb (14.0-18.0) g/dL POC Hgb 9.9 L (14.0-18.0) g/dl Hct (42-52) % POC Hct 29 L (42-52) % MCV (80-100) fL MCH (25-34) pg MCHC (32-36) g/dL RDW Std Deviation (36.4-46.3) fL RDW Coeff of Miguel (11.5-14.5) % Plt Count (130-400) K/uL MPV (7.4-10.4) fL Immature Gran % (Auto) % Neut % (Auto) % Lymph % (Auto) % [place] % (Auto) % Eos % (Auto) % Baso % (Auto) % Immature Gran # (Auto) (0.00-0.02) K/uL Neut # (Auto) (1.4-6.5) K/uL Lymph # (Auto) (1.2-3.4) K/uL [place] # (Auto) (0.11-0.59) K/uL Eos # (Auto) (0-0.5) K/uL Baso # (Auto) (0-0.2) K/uL PT (9.0-12.0) Seconds INR (0.9-1.1) APTT (21.0-31.0) Seconds PTT Ratio VBG pH (7.36-7.41) VBG pCO2 (38-50) mmHg VBG pO2 mmHg VBG HCO3 mmol/L VBG O2 Saturation % VBG Base Excess mEq/L Barometric Pressure mm/Hg POC Sodium 140 (135-144) mEq/L Sodium (136-145) mmol/L POC Potassium 3.6 (3.3-5.0) mEq/L Potassium (3.5-5.1) mmol/L POC Chloride 106 (101-112) mEq/L Chloride (98-107) mmol/L Carbon Dioxide (21-32) mmol/L POC Total CO2 24 (24-31) mEq/l Anion Gap (3-11) POC Anion Gap 15.0 L (16-25) mmol/L POC BUN 16 (7-18) mg/dl BUN (7-18) mg/dl Creatinine (0.6-1.4) mg/dl POC Creatinine 1.6 H (0.6-1.3) mg/dl Est Cr Clr Drug Dosing ml/min Est GFR ( Amer) Est GFR (Non-Af Amer) BUN/Creatinine Ratio (10-20) Glucose (70-99) mg/dl POC Glucose (other) 142 H (70-99) mg/dl Lactate (0.4-2.0) mmol/L Calcium (8.5-10.1) mg/dl POC Ioniz Calcium [place]jo 1.23 (1.12-1.32) mmol/l Phosphorus (2.5-4.9) mg/dl Magnesium (1.8-2.4) mg/dl Total Bilirubin (0.2-1) mg/dl AST (15-37) U/L ALT (12-78) U/L Alkaline Phosphatase (45-117) U/L Total Protein (6.4-8.2) gm/dl Albumin (3.4-5.0) gm/dl Globulin (2.5-4.0) gm/dl Albumin/Globulin Ratio (0.9-2) Urine Color Urine Appearance (Clear) Urine pH (4.5-7.5) Ur Specific [place] (1.000-1.030) Urine Protein (Negative) Urine Glucose (UA) (Negative) Urine Ketones (Negative) Urine Blood (Negative) Urine Nitrite (Negative) Urine Bilirubin (Negative) Urine Urobilinogen (Negative) Ur Leukocyte Esterase (Negative) Urine RBC (0-4) /hpf Urine WBC (0-5) /hpf Ur Epithelial Cells (0-5) /lpf Urine Bacteria (Negative) Imaging Data Radiologist's Impression: Radiology results as stated below per my review and the radiologist's interpretation: SINGLE VIEW CHEST CLINICAL HISTORY: Sepsis. FINDINGS: An AP, portable, upright chest radiograph is compared to study dated 11/06/2018. The examination is degraded by portable technique and apical lordotic positioning. The heart is top normal for projection noting atherosclerotic calcification of the thoracic aorta. The pulmonary vasculature is noncongested. There is mild bibasilar atelectasis. The lungs and pleural spaces are otherwise clear. No pneumothorax is seen. The skeletal structures appear osteopenic. The bony thorax is grossly intact. IMPRESSION: No acute cardiopulmonary abnormality. Electronically signed by: Edward Foreman M.D. 01/12/2019 11:[address] SCAN OF THE ABDOMEN AND PELVIS WITHOUT IV CONTRAST CLINICAL HISTORY: Sepsis. COMPARISON STUDY: Abdominal CT dated 11/06/2018. TECHNIQUE: CT scan of the abdomen and pelvis is performed from the lung bases to the proximal femora. Images are reviewed in the axial, sagittal, and coronal planes. IV contrast was not administered for this examination as per the referring clinician. Note that the examination was performed in suboptimal fashion without IV contrast. A dose lowering technique was utilized adhering to the principles of ALARA. CT DOSE: 1528.13 mGy.cm FINDINGS: Lung bases: The heart is normal in size and without pericardial effusion. The lung bases are clear noting mild bibasilar atelectasis. Liver: The unenhanced liver is cirrhotic in morphology and heterogeneous in attenuation. There is nodularity of the hepatic surface contour, as well as hypertrophy of the left lobe and caudate. There is no intrahepatic biliary ductal dilatation. Gallbladder: Surgically absent noting clips in the gallbladder fossa. Spleen: The spleen is enlarged, measuring 18 cm in length. There are large perisplenic collaterals. Pancreas: The unenhanced pancreas is atrophic and grossly unremarkable. Adrenal glands: Unremarkable. Kidneys: The unenhanced kidneys demonstrate cortical atrophy and are without hydronephrosis. There is a punctate nonobstructing left renal calculus. There is no evidence of contour deforming renal mass lesion. Abdominal vasculature: The abdominal aorta is normal in course and caliber noting mild atherosclerotic calcification. Bowel: The small bowel and colon are normal in course and caliber. The appendix is not identified and reported surgically absent. Peritoneum: There is no intraperitoneal free a or abdominal ascites. Lymphadenopathy: None. Pelvic viscera: The bladder wall appears mildly thickened and there is pericyst ic inflammation. The prostate gland is diminutive and heterogeneous. Skeletal structures: The skeletal structures are osteopenic. Mild lumbosacral spondylosis is observed. No lytic or blastic lesions are seen. IMPRESSION: 1. Suboptimal examination without oral and IV contrast. 2. Question cystitis. Correlation with clinical findings and urinalysis will be required. 3. Cirrhotic liver morphology. 4. Splenomegaly indicates portal hypertension. 5. Left-sided nephrolithiasis. 6. Additional findings as above. Electronically signed by: Edward Foreman M.D. 01/12/2019 12:29 PM ECG Data Attestation: I personally reviewed and interpreted this ECG as follows: Indication: + weakness Rate (beats per minute): 114 Rhythm: + sinus tachycardia ECG [place]: + Normal ECG ST segments: no ST depression and no ST elevation ECG Findings: + Other (QT-c 454, QRS 94) Blood Pressure Blood Pressure Findings: Elevated blood pressure Blood Pressure Disposition: further management by hospitalist MAL Rosen The patient is a pleasant 63 y/o gentleman with a pmhx of Urethral stricture s/p reconstructive surgery, CKD,SERRANO liver cirrhosis, psoriatic arthritis, HTN, chronic anemia who presents to the emergency department with fatigue, fevers, c hills, and body aches since last night per HPI. On arrival the patient is uncomfortable but in NAD, febrile to 39.6, HR in 110s and otherwise stable vital signs. Patient appears clinically dry. He has mild lower abdominal discomfort without discrete ttp. WBC 4.2, nonspecific and similar to prior. H/H similar to prior. Platelets 65 similar to prior range of values. UA c/w infection with nitrites, WBC, and bacteria. Cr. 1.4 similar to prior range of values. Chemistry without acidosis. Lactate 1.7. Phosphorus and Magnesium 1.[address] abd pelvis with evidence of cystitis. Patient ordered for broad spectrum ABX with vancomycine and Zosyn. Case was discussed with Artem Christianson, who will evaluate the patient for admission. Impression & Plan UTI (urinary tract infection), Hypomagnesemia, Hypophosphatemia, Sepsis, Pancytopenia Discharge Plan Visit Data *Final* Discharge Date/Time: 01/12/19 15:31 Chief Complaint: Illness ED Provider: Dusty Ghosh Discharge Problem: UTI (urinary tract infection), Hypomagnesemia, Hypophosphatemia, Sepsis, Pancytopenia Patient Disposition: Admitted As Inpatient Discharge Instructions Interventions: ED Discharge Assessment Last Done: 01/12/19 15:31 Discharge Problem: UTI (urinary tract infection) Qualifiers: Urinary tract infection type: site unspecified Hematuria presence: with hematuria Qualified Code(s): N39.0 - Urinary tract infection, site not specified The scribe's documentation has been prepared under my direction and personally reviewed by me in its entirety. I confirm that the note above accurately reflects all work, treatment, procedures, and medical decision making performed by me.
[2019-01-13] MEDS: SODIUM CHLORIDE 0.9% 1000ML 1,000 ML IV SCH ×2 (01:42→11:35)
[2019-01-13] MEDS: PIPERACILLIN/TAZOBACTAM 3.375 GM in DEXTROSE 5% 100 ML IV SCH (01:43)
[2019-01-13] MEDS ORDERED: VANCOMYCIN HCL 1,500 MG in SODIUM CHLORIDE 0.9% 500 ML IV SCH (05:00)
[2019-01-13 07:37] LABS: Hematocrit (blood only) 29.8 % (42-52); Hemoglobin 10.2 g/dL (14.0-18.0); Mean Corpuscular Hemoglobin 34.7 pg (25-34); Mean Corpuscular Hgb Conc 34.2 g/dL (32-36); Mean Corpuscular Volume 101.4 fL (80-100); RDW Coefficient of Variation 15.7 % (11.5-14.5); RDW Standard Deviation 58.6 fL (36.4-46.3); Red Blood Count 2.94 M/uL (4.7-6.1); White Blood Count 7.52 K/uL (4.8-10.8)
[2019-01-13 07:56] LABS: Platelet Count 36 K/uL (130-400); Platelet Estimate Decreased (Normal)
[2019-01-13 08:13] LABS: BUN Creatinine Ratio 11.4 (10-20); Creatinine Clr Calc Pharmacy 52.7 ml/min; Est GFR (African American) 42.5; Est GFR (Non-African American) 36.7; Magnesium 1.7 mg/dl (1.8-2.4); Phosphorus 2.9 mg/dl (2.5-4.9); Potassium 4.2 mmol/L (3.5-5.1)
[2019-01-13] MEDS: PANTOprazole 40 MG TAB PO SCH (08:46)
[2019-01-13] MEDS: PIPERACILLIN/TAZOBACTAM 4.5 GM in DEXTROSE 5% 100 ML IV SCH ×2 (08:46→17:53)
--- NOTE | 2019-01-13 09:24 | Hospitalist Progress Note ---
Date of Service January 13, 2019 Assessment & Plan (1) Sepsis: (2) UTI (urinary tract infection): -as per HPI on 01/12/19 "63-year-old male who presents the ED for evaluation of chills and generally not feeling well. Patient reports he has history of sepsis secondary to urinary tract infection and reports he feels very similar to how he has in the past with sepsis. Patient reports he woke up around 4:00 in the morning and had shaking chills." -admission urine analysis witj bacteria -On ED presentation, patient was febrile at 39.6 and tachycardic and hypotensive when BP initially stable and declined to 88/49, additional 1 L IVF bolus ordered; lactic acid 1.7; patient was given on IV Zosyn and IV Vancomycin and given IV fluids -Continue IV Zosyn for now. would not continue Vancomycin given lack of clinical history that would support MRSA infection and also to avoid worsening chronic kidney disease, follow blood and urine cultures History of ureteral stricture S/P reconstructive surgery -patient follows with [facility] Dr. Guzman as outpatient -monitor if any urinary retention (3) CKD (chronic kidney disease), stage III: Acute kidney Injury on Chronic Kidney Disease stage III -Baseline creatinine mid to high 1's; follows as outpatient with [facility] Dr. Martinez -admission creatinine was 1.4 on 01/12/19 -patient received IV fluids but creatinine increased to 1.89 by AM of 01/13/19 labs -stop Vancomycin -because patient already has good amount of fluids, will reduce IV fluid rate Hypomagnesemia -serum magnesium 1.7, give IV and oral magnesium (4) 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: -Appears compensated -Not currently on any routine medications -Follows with Dr. Badillo (5) Anemia: -has anemia and thrombocytopenia -chronic due to underlying liver disease -Hgb remains above 10 (6) Thrombocytopenia: -platelets are chronically under 100,000 -has at times when hospital labs of platelets around 30K -platelets downtrended from 65K on admission on 01/12/19 to 36K 01/13/19, may partly may be from hemodilution because of IV fluids, but these numbers should be watched closely (7) GERD (gastroesophageal reflux disease): -Continue PPI (8) DVT prophylaxis: -SCDs due to thrombocytopenia and anemia Subjective Patient is seen and examined after he ambulated on his own power from bathroom. he reports diarrhea and that stool has been loose since recently started on IV antibiotics on 01/12/19. Patient denies dysuria. He reports since coming to the hospital with treatment (IV fluids, IV antibiotics) that he is feeling better. denies chest pain. denies shortness of breath. breathing on room air. denies abdominal pain. no current dizziness or lightheadedness Review of Systems Review of Systems: All systems reviewed & are unremarkable except as noted in HPI & below Physical Exam Constitutional: comfortable Eyes: PERRL, conjunctivae normal, anicteric sclerae EOM intact bilaterally ENMT: external ear and nose normal, oropharynx normal Neck: normal visual inspection Respiratory: normal respiratory effort, lungs clear to auscultation Cardiovascular: Rate/Rhythm: regular rate Gastrointestinal (Abdomen): normal bowel sounds, soft, nontender, no hepatosplenomegaly Musculoskeletal: Head/Neck/Chest: normocephalic and head atraumatic Neurologic: PERRL, EOMI, accommodation nl, no face palsy, no dysarthria C N's II-XI intact bilaterally Psychiatric: A+Ox3, euthymic affect Results & Data Vital Signs (Past 12 Hours) Vital Signs Temp Pulse Pulse Resp BP Pulse Ox 01/13/19 07:58 36.4 C L 70 19 95/56 L 98 01/13/19 03:41 36.3 C L 63 18 94/57 L 97 01/13/19 00:55 73 01/12/19 23:08 36.5 C 84 19 96/58 L 95 (1) Sepsis Sepsis acute organ dysfunction status: unspecified Sepsis type: sepsis due to unspecified organism Qualified Code(s): A41.9 - Sepsis, unspecified organism (2) UTI (urinary tract infection) Hematuria presence: with hematuria Urinary tract infection type: site unspecified Qualified Code(s): N39.0 - Urinary tract infection, site not specified; R31.9 - Hematuria, unspecified
[2019-01-13] MEDS ORDERED: MAGNESIUM OXIDE 400 MG TAB PO STA (09:38)
--- NOTE | 2019-01-13 10:40 | Urology Consultation ---
Date of Consultation January 13, 2019 Assessment & Plan (1) Sepsis: urosepsis cultures pending cont broad spectrum abx now overall, he is in good spirits and non-ill appearing today ultimately, we will need to plan for intervention to prevent recurrence of symptoms - he has asked about conversion to perineal urethrostomy this is reasonable - but he also may be a candidate for simple dilation at his previous urethroplasty site we will arrange for appropriate w/u and treatment as an outpt after recovery from his current episode History of Present Illness Attending Physician: Leonard Ribeiro MD History of Present Illness 63y/o male well known to service secondary to long standing, severe urethral stricture disease s/p buccal onlay urethroplasty has noticed a gradual decline in strength of stream developed chills and fevers yesterday morning no other symptoms improved now - after 18hrs of abx afebrile slightly hypotensive CT: moderately full bladder low WBC count not severely anemic (has been an issue in the past) Allergies Allergy/AdvReac Type Severity Reaction Status Date / Time tamsulosin Allergy Intermediate HIVES Verified 01/12/19 12:40 Home Medications Home Medications Medication Instructions Recorded Confirmed Type omeprazole 20 mg PO DAILY 01/12/19 01/12/19 History Patient History Medical History Anemia (Chronic) Bacteremia CKD (chronic kidney disease), stage III (Chronic) GERD (gastroesophageal reflux disease) (Chronic) Herniated disc (Chronic) LUMBAR AREA Hypertension (Chronic) HX Hypothyroidism (Chronic) Kidney stones (Chronic) 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 (Chronic) Pancytopenia Psoriatic arthritis (Chronic) PVT (portal vein thrombosis) Septicemia due to enterococcus (Resolved) Spinal stenosis (Chronic) EPIDURAL INJECTIONS IN PAST FOR PAIN RELIEF Surgical History History of appendectomy (Chronic) History of arthroscopy (Chronic) RT KNEE History of cataract surgery (Chronic) RT/LEFT History of cholecystectomy (Chronic) History of colonoscopy (Chronic) History of esophagogastroduodenoscopy (EGD) (Chronic) History of herniorrhaphy (Chronic) History of lithotripsy (Chronic) History of liver biopsy (Chronic) History of repair of rotator cuff (Chronic) RT/LEFT History of tooth extraction (Chronic) Nausea and vomiting after administration of anesthetic agent (Resolved) Neuroma (Chronic) REMOVED FROM RT/LEFT FOOT Suprapubic catheter (Resolved) AND REMOVAL Family History Grandmother (Maternal) Family history of diabetes mellitus Social History Preferred Language: Spanish Communication Ability: Effective Whirley Operator Required: No Beliefs That Will Affect Care: None marital status: Current Living Situation: Spouse Other Information That Helps Us Care for You: No Feels Safe at Home: Yes Safety Concerns: Feels Safe At This Time Smoking Status: Never smoker Second Hand Exposure: No ; Hx Alcohol Use: No Hx Substance Use: No Review of Systems Constitutional: + fever, + chills, + body aches and + fatigue Eyes: no worsening vision Ear, Nose, Mouth, Throat: no facial pain and no pain with swallowing Respiratory: no cough and no dyspnea Cardiovascular: no chest pain and no palpitations Gastrointestinal: no abdominal pain, no nausea and no vomiting Genitourinary: + difficulty urinating, + urinary hesitancy and + nocturia Musculoskeletal: no back pain Integumentary: no rash and no urticaria Neurologic: no gait abnormality and no unsteadiness Psychiatric: no behavioral changes and no depression Endocrine: no fatigue Physical Exam Constitutional: well developed and well nourished Neck: neck nontender Respiratory: normal respiratory effort; no respiratory distress and does not use accessory muscles Cardiovascular: Rate/Rhythm: regular rate Vessels: radial pulses present Extremities: no edema Gastrointestinal (Abdomen): Inspection/Auscultation: abdomen normal to inspection Percussion/Palpation: abdomen soft; abdomen nontender and no guarding Musculoskeletal: Head/Neck/Chest: normocephalic and head atraumatic Extremities: extremities normal to inspection Skin: no rashes and no lesions Trauma: no evidence of skin trauma Neurologic: awake; not obtunded Speech / Cognition: normal speech Mo tor/Sensory: no tremor Psychiatric: Orientation: alert and oriented x 3 Genitourinary: no CVA tenderness Lymphatic: no lymphadenopathy Results & Data Vital Signs (Past 12 Hours) Vital Signs Temp Pulse Pulse Resp BP Pulse Ox 01/13/19 07:58 36.4 C L 70 19 95/56 L 98 01/13/19 03:41 36.3 C L 63 18 94/57 L 97 01/13/19 00:55 73 01/12/19 23:08 36.5 C 84 19 96/58 L 95 PG Care Time/CCT Total # of Minutes Spent Total Time Spent with Patient: Total time spent is greater than 50% in coordination of care (as documented) at patient's floor/unit and/or counseling patient:
[2019-01-13] MEDS: ACETAMINOPHEN 325 MG TAB PO PRN ×2 (14:20→21:06)
[2019-01-13] MEDS ORDERED: DOXYCYCLINE HYCLATE 100 MG in DEXTROSE 5% 100 ML IV STA (15:03)
[2019-01-13 15:53] LABS: Albumin Level 2.3 gm/dl (3.4-5.0); BUN Creatinine Ratio 11.5 (10-20); Calcium 8.3 mg/dl (8.5-10.1); Creatinine Clr Calc Pharmacy 51.4 ml/min; Est GFR (African American) 41.2; Est GFR (Non-African American) 35.5; Magnesium 1.6 mg/dl (1.8-2.4); Potassium 3.7 mmol/L (3.5-5.1)
[2019-01-13 16:50] LABS: Albumin Globulin Ratio 0.5 (0.9-2); Bilirubin,Total 2.1 mg/dl (0.2-1); Globulin 4.3 gm/dl (2.5-4.0); Thyroid Stimulating Hormone 1.83 uIu/ml (0.300-4.500); Total Protein 6.6 gm/dl (6.4-8.2)
[2019-01-13] MEDS: MAGNESIUM SULFATE / D5W 1 GM/100 ML BAG IV SCH ×2 (17:06→17:54)
[2019-01-13] MEDS ORDERED: CALCIUM CARBONATE 500 MG CHEWABLE TAB PO PRN (20:51)
[2019-01-13] MEDS: DOXYCYCLINE HYCLATE 100 MG in DEXTROSE 5% 100 ML IV SCH (22:02)
[2019-01-14] MEDS: SODIUM CHLORIDE 0.9% 1000ML 1,000 ML IV SCH ×2 (01:39→17:12)
[2019-01-14] MEDS: PIPERACILLIN/TAZOBACTAM 4.5 GM in DEXTROSE 5% 100 ML IV SCH ×3 (02:16→18:33)
[2019-01-14] MEDS: MAGNESIUM OXIDE 400 MG TAB PO SCH (07:47)
[2019-01-14] MEDS: PANTOprazole 40 MG TAB PO SCH (07:47)
[2019-01-14] MEDS: DOXYCYCLINE HYCLATE 100 MG in DEXTROSE 5% 100 ML IV SCH ×2 (07:50→20:42)
--- NOTE | 2019-01-14 07:52 | Urology Progress Note ---
Date of Service January 14, 2019 Assessment & Plan (1) Sepsis: recovering appropriately culture growing gr neg cocci await final speciation likely outpt treatment (dilation or perineal urethrostomy) - will arrange Subjective continues to progress and recover no major subjective complaints today Physical Exam Physical Exam: AFVSS NAD Abd soft minimal edema Results & Data Vital Signs (Past 12 Hours) Vital Signs Temp Pulse Pulse Resp BP Pulse Ox 01/14/19 07:30 36.4 C L 58 L 20 111/65 98 01/14/19 04:27 36.4 C L 78 20 112/69 96 01/14/19 00:00 85 01/13/19 23:30 37.0 C 77 18 102/61 96 PG Care Time/CCT Total # of Minutes Spent Total Time Spent with Patient: Total time spent is greater than 50% in coordination of care (as documented) at patient's floor/unit and/or counseling patient:
[2019-01-14] MEDS ORDERED: VANCOMYCIN TROUGH ONE (08:30)
[2019-01-14 09:40] LABS: Hemoglobin 9.8 g/dL (14.0-18.0); Mean Corpuscular Hemoglobin 35.4 pg (25-34); Mean Corpuscular Volume 101.1 fL (80-100); RDW Standard Deviation 59.3 fL (36.4-46.3); Red Blood Count 2.77 M/uL (4.7-6.1); White Blood Count 7.79 K/uL (4.8-10.8)
--- NOTE | 2019-01-14 09:40 | Infectious Disease Consult ---
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 Most likely source is urinary tract infection. For now, Zosyn should provide adequate coverage pending final identification and sensitivities. Would be concerned about possibility of endocarditis as this organism has been associated with this, and would obtain echocardiogram, may need TAWNYA in the future. Will discuss with all involved. Will follow. (2) UTI (urinary tract infection): History of Present Illness Reason for Consultation: Gram-negative bacteremia Attending Physician: Liliana Fu, DO History of Present Illness 63-year-old male with history of hypertension, hypothyroidism,SERRANO, admitted earlier this month with sepsis and urinary tract infection. Urine culture grew corynebacterium, 1 set of blood cultures were positive for streptococcal species, another positive for Veillonella. Patient was eventually discharged on oral Augmentin, with indwelling Madrigal catheter for retention. He is now readmitted after being found confused at the intermediate, covered in feces. He was started on IV Zosyn, and blood cultures now reported positive for gram- negative cocci. Patient currently complains of mild suprapubic pain and weakness, offers no other localizing complaints. Allergies Allergies Allergy/AdvReac Type Severity Reaction Status Date / Time tamsulosin Allergy Intermediate HIVES Verified 01/12/19 12:40 Home Medications Home Medications Medication Instructions Recorded Confirmed Type omeprazole 20 mg PO DAILY 01/12/19 01/12/19 History Patient History Medical History Anemia (Chronic) Bacteremia CKD (chronic kidney disease), stage III (Chronic) GERD (gastroesophageal reflux disease) (Chronic) Herniated disc (Chronic) LUMBAR AREA Hypertension (Chronic) HX Hypothyroidism (Chronic) Kidney stones (Chronic) 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 (Chronic) Pancytopenia Psoriatic arthritis (Chronic) PVT (portal vein thrombosis) Septicemia due to enterococcus (Resolved) Spinal stenosis (Chronic) EPIDURAL INJECTIONS IN PAST FOR PAIN RELIEF Surgical History History of appendectomy (Chronic) History of arthroscopy (Chronic) RT KNEE History of cataract surgery (Chronic) RT/LEFT History of cholecystectomy (Chronic) History of colonoscopy (Chronic) History of esophagogastroduodenoscopy (EGD) (Chronic) History of herniorrhaphy (Chronic) History of lithotripsy (Chronic) History of liver biopsy (Chronic) History of repair of rotator cuff (Chronic) RT/LEFT History of tooth extraction (Chronic) Nausea and vomiting after administration of anesthetic agent (Resolved) Neuroma (Chronic) REMOVED FROM RT/LEFT FOOT Suprapubic catheter (Resolved) AND REMOVAL Family History Grandmother (Maternal) Family history of diabetes mellitus Social History Preferred Language: German Communication Ability: Effective Fire Extinguisher Tester Required: No Beliefs That Will Affect Care: None marital status: Current Living Situation: Spouse Feels Safe at Home: Yes Smoking Status: Never smoker Second Hand Exposure: No ; Hx Alcohol Use: No Hx Substance Use: No Review of Systems Review of Systems: All systems reviewed & are unremarkable except as noted in HPI & below Physical Exam Constitutional: WD/WN, vitals as above comfortable; no acute distress Eyes: PERRL, conjunctivae normal, anicteric sclerae ENMT: external ear and nose normal, oropharynx normal Neck: trachea midline, no thyromegaly neck nontender Respiratory: normal respiratory effort, lungs clear to auscultation normal percussion; does not use accessory muscles Cardiovascular: Rate/Rhythm: regular rate and regular rhythm Heart Sounds: normal S1 and normal S2; no gallop, no murmur and no cardiac rub Vessels: normal peripheral pulses; no JVD Gastrointestinal (Abdomen): normal bowel sounds, soft, nontender, no hepatosplenomegaly Musculoskeletal: no cyanosis or clubbing, extremities motor strength 5/5 Spine: thoracic spine normal to inspection and lumbar spine normal to ins pection; no cervical spinal tenderness Skin: no rashes, warm and dry normal turgor; no lesions Neurologic: patellar DTR's 2+ bilat, sensation intact no focal motor deficits Psychiatric: A+Ox3, euthymic affect Orientation: cooperative Lymphatic: no cervical or axillary lymphadenopathy no inguinal lymphadenopathy Results & Data Vital Signs (Past 12 Hours) Vital Signs Temp Pulse Pulse Resp BP Pulse Ox 01/14/19 07:30 36.4 C L 58 L 20 111/65 98 01/14/19 04:27 36.4 C L 78 20 112/69 96 01/14/19 00:00 85 01/13/19 23:30 37.0 C 77 18 102/61 96 Laboratory Results Short CBC 01/14/19 Range/Units 09:19 WBC 7.79 (4.8-10.8) K/uL Hgb 9.8 L (14.0-18.0) g/dL Hct 28.0 L (42-52) % BMP 01/13/19 15:14 Sodium 142 Potassium 3.7 Chloride 112 H Carbon Dioxide 22 BUN 22 H Creatinine 1.94 H Glucose 72 Calcium 8.3 L Liver Function 01/13/19 Range/Units 15:14 Total Bilirubin 2.1 H D (0.2-1) mg/dl AST 61 H (15-37) U/L ALT 37 (12-78) U/L Alkaline Phosphatase 73 (45-117) U/L Albumin 2.3 L (3.4-5.0) gm/dl Diagnostic Findings Microbiology 01/12/19 11:52 Blood Aerobic Blood Culture - Preliminary No growth in Aerobic bottle after 24 hours. 01/12/19 11:52 Blood Anaerobic Blood Culture - Preliminary Gram negative cocci 01/12/19 11:55 Blood Aerobic Blood Culture - Preliminary No growth in Aerobic bottle after 24 hours. 01/12/19 11:55 Blood Anaerobic Blood Culture - Preliminary Gram negative cocci 01/12/19 10:58 Urine,Clean Catch Urine Culture - Final More than three types of organisms present, all high counts mixed probable skin jairon - No further identifications or sensitivities to follow. CT SCAN OF THE ABDOMEN AND PELVIS WITHOUT IV CONTRAST CLINICAL HISTORY: Sepsis. COMPARISON STUDY: Abdominal CT dated 11/06/2018. TECHNIQUE: CT scan of the abdomen and pelvis is performed from the lung bases to the proximal femora. Images are reviewed in the axial, sagittal, and coronal planes. IV contrast was not administered for this examination as per the referring clinician. Note that the examination was performed in suboptimal fashion without IV contrast. A dose lowering technique was utilized adhering to the principles of ALARA. CT DOSE: 1528.13 mGy.cm FINDINGS: Lung bases: The heart is normal in size and without pericardial effusion. The lung bases are clear noting mild bibasilar atelectasis. Liver: The unenhanced liver is cirrhotic in morphology and heterogeneous in attenuation. There is nodularity of the hepatic surface contour, as well as hypertrophy of the left lobe and caudate. There is no intrahepatic biliary ductal dilatation. Gallbladder: Surgically absent noting clips in the gallbladder fossa. Spleen: The spleen is enlarged, measuring 18 cm in length. There are large perisplenic collaterals. Pancreas: The unenhanced pancreas is atrophic and grossly unremarkable. Adrenal glands: Unremarkable. Kidneys: The unenhanced kidneys demonstrate cortical atrophy and are without hydronephrosis. There is a punctate nonobstructing left renal calculus. There is no evidence of contour deforming renal mass lesion. Abdominal vasculature: The abdominal aorta is normal in course and caliber noting mild atherosclerotic calcification. Bowel: The small bowel and colon are normal in course and caliber. The appendix is not identified and reported surgically absent. Peritoneum: There is no intraperitoneal free a or abdominal ascites. Lymphadenopathy: None. Pelvic viscera: The bladder wall appears mildly thickened and there is pericystic inflammation. The prostate gland is diminutive and heterogeneous. Skeletal structures: The skeletal structures are osteopenic. Mild lumbosacral spondylosis is observed. No lytic or blastic lesions are seen. IMPRESSION: 1. Suboptimal examination without oral and IV contrast. 2. Question cystitis. Correlation with clinical findings and urinalysis will be required. 3. Cirrhotic liver morphology. 4. Splenomegaly indicates portal hypertension. 5. Left-sided nephrolithiasis. 6. Additional findings as above. Electronically signed by: Edward Foreman M.D. 01/12/2019 12:29 PM Dictated: 01/12/19 1223 Transcribed: 01/12/19 1223 PG Care Time/CCT Total # of Minutes Spent Total Time Spent with Patient: Total time spent is greater than 50% in coordination of care (as documented) at patient's floor/unit and/or counseling patient: (1) UTI (urinary tract infection) Hematuria presence: with hematuria Urinary tract infection type: site unspecified Qualified Code(s): N39.0 - Urinary tract infection, site not specified; R31.9 - Hematuria, unspecified
[2019-01-14 09:41] LABS: Basophils # (auto) 0.01 K/uL (0-0.2); Basophils % (auto) 0.1 %; Eosinophils # (auto) 0.23 K/uL (0-0.5); Immature Granulocytes # (auto) 0.01 K/uL (0.00-0.02); Immature Granulocytes % (auto) 0.1 %; Lymphocytes # (auto) 0.69 K/uL (1.2-3.4); Lymphocytes % (auto) 8.9 %; Mean Platelet Volume 9.5 fL (7.4-10.4); Monocytes # (auto) 1.07 K/uL (0.11-0.59); Monocytes % (auto) 13.7 %; Neutrophils # (auto) 5.78 K/uL (1.4-6.5); Neutrophils % (auto) 74.2 %; Platelet Count 35 K/uL (130-400)
[2019-01-14 10:13] LABS: BUN Creatinine Ratio 12.7 (10-20); Calcium 8.2 mg/dl (8.5-10.1); Creatinine Clr Calc Pharmacy 45.5 ml/min; Est GFR (African American) 35.6; Est GFR (Non-African American) 30.7; Potassium 4.1 mmol/L (3.5-5.1)
[2019-01-14 10:20] LABS: Albumin Globulin Ratio 0.5 (0.9-2); Bilirubin,Total 1.5 mg/dl (0.2-1)
--- NOTE | 2019-01-14 14:15 | Hospitalist Progress Note ---
Date of Service January 14, 2019 Assessment & Plan (1) Sepsis: Resuscitated. Clinically improved overall. Potential sources include urine and oral jairon. It was noted that the patient had via melena and alpha Streptococcus on last admission and the blood. He also had some issues with gi ngivitis and gum health. Via Cassi is typically an oral bacteria so would suspect a mouth infection contributing to bacteremia. When he was discharged he left on 14 days of Levaquin and his urine studies at that time were negative. Urine studies again are negative this admission. Strongly suspect oral infection that is ongoing as a source. We will discuss this further with infectious disease and pursue echo as recommended today. (2) UTI (urinary tract infection): History of urethral stricture status post reconstructive surgery. Urine culture is negative to date. Urology has been consulted and recommends outpatient follow-up for further revision of his urethra. Madriagl is contraindicated. Patient with good output and no evidence of urinary retention at this point. Continue to monitor. (3) Acute kidney injury superimposed on CKD: Likely secondary to sepsis. Patient also received combination Zosyn and vancomycin. Continue to monitor and avoid nephrotoxic substances unless necessary. Renally dose meds. (4) 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: -Appears compensated -Not currently on any routine medications -Follows with Dr. Badillo (5) Anemia: Likely related to chronic disease, stable and around baseline. No transfusion indicated at this point. Continue to monitor. 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 Continue to monitor CBC for improvement as infection clears. (7) GERD (gastroesophageal reflux disease): -Continue PPI (8) DVT prophylaxis: -SCDs, chemoprophylaxis contraindicated in setting of thrombocytopenia Full code Disposition-pending infectious disease recommendations and continued clinical improvement. PT/OT to assess patient for safety to return home Liliana [facility] Subjective 63-year-old man presented to the ER after acute onset of chills body aches weakness and a fever of 103. He had no prior onset of dysuria or other urinary symptoms but has noted strong smelling urine recently. Initial urinalysis appeared consistent with infection however this also may be a contaminated with greater than 30 epithelial cells seen per high-power field. CT scan of the abdomen revealed a mildly thickened bladder wall with pericystic inflammation and cystitis is questioned. He is unable to have a Madrigal catheter as a result of urethral cyst reconstruction performed in February of this year. He was admitted to the hospitalist service and placed on vancomycin and Zosyn empirically which was then changed to Zosyn and doxycycline the following day. There is no history of rickettsial illness but this was being considered. Blood cultures are positive for gram-negative cocci however his urine culture is negative to date. He reports no dysuria, hematuria or other UTI symptoms at this time. He denies any flank pain fevers or chills and is much improved since initial sepsis resuscitation on admission. He is tolerating p.o. and is ambulating without lightheadedness. Review of Systems Review of Systems: All systems reviewed & are unremarkable except as noted in HPI & below Physical Exam Physical Exam: CONSTITUTIONAL: obese, vitals as above, generally well- appearing EYES: normal conjunctivae, no scleral icterus ENT: MMM RESPIRATORY: clear to auscultation bilaterally, no crackles, rales or wheezes, normal respiratory effort CARDIOVASCULAR: regular rate and rhythm, 3/6 NARAYAN heard at LUSB, no gallops or rubs, no JVD, no peripheral edema GASTROINTESTINAL: normal bowel sounds, soft, nontender, nondistended, no CVA tenderness. MUSCULOSKELETAL: strength 5/5 throughout, head is normocephalic and atraumatic SKIN: warm and dry NEUROLOGIC: CN 2-12 grossly intact, no sensory deficit, normal cognition, normal speech, no tremor, no gross focal deficits. PSYCHIATRIC: alert cooperative and oriented to person, place and time. Results & Data Vital Signs (Past 12 Hours) Vital Signs Temp Pulse Resp BP Pulse Ox 01/14/19 11:06 36.6 C 65 20 131/78 97 01/14/19 07:30 36.4 C L 58 L 20 111/65 98 01/14/19 04:27 36.4 C L 78 20 112/69 96 Laboratory Results Short CBC 01/14/19 Range/Units 09:19 WBC 7.79 (4.8-10.8) K/uL Hgb 9.8 L (14.0-18.0) g/dL Hct 28.0 L (42-52) % Plt Count 35 L (130-400) K/uL BMP 01/13/19 01/14/19 15:14 09:19 Sodium 142 141 Potassium 3.7 4.1 Chloride 112 H 114 H Carbon Dioxide 22 23 BUN 22 H 28 H Creatinine 1.94 H 2.19 H Glucose 72 100 H Calcium 8.3 L 8.2 L Liver Function 01/13/19 01/14/19 Range/Units 15:14 09:19 Total Bilirubin 2.1 H D 1.5 H (0.2-1) mg/dl AST 61 H 45 H (15-37) U/L ALT 37 28 (12-78) U/L Alkaline Phosphatase 73 51 (45-117) U/L Albumin 2.3 L 2.0 L (3.4-5.0) gm/dl Medications Administered Current Inpatient Medications Acetaminophen (Tylenol) 650 mg PO Q4H PRN PRN Reason: Pain or Fever Stop: 02/11/19 16:07 Last Admin: 01/13/19 21:06 Dose: 650 mg Documented by: Calcium Carbonate (Tums) 500 mg PO TID PRN PRN Reason: Indigestion Stop: 02/12/19 20:50 Last Admin: 01/13/19 21:06 Dose: 500 mg Documented by: Piperacillin Sod/Tazobactam (Sod 4.5 gm/ Dextrose) 120 mls @ 30 mls/hr IV Q8H [facility]; Protocol Stop: 01/22/19 17:59 Last Admin: 01/14/19 11:28 Dose: 30 mls/hr Documented by: Sodium Chloride (Nss 1000ml) 1,000 mls @ 80 mls/hr IV .[id number] [facility] Stop: 02/12/19 10:59 Last Admin: 01/14/19 01:39 Dose: 80 mls/hr Documented by: Doxycycline Hyclate 100 mg/ (Dextrose) 110 mls @ 50 mls/hr IV BID [facility]; Protocol Stop: 01/27/19 20:59 Last Admin: 01/14/19 07:50 Dose: 50 mls/hr Documented by: Magnesium Oxide (Mag-Ox) 400 mg PO QAM [facility] Stop: 02/13/19 08:59 Last Admin: 01/14/19 07:47 Dose: 400 mg Documented by: Miscellaneous Information (Consult) 1 ea N/A UD PRN PRN Reason: Consult Stop: 02/11/19 13:08 Pantoprazole Sodium (Protonix) 40 mg PO DAILY [facility] Stop: 02/12/19 08:59 Last Admin: 01/14/19 07:47 Dose: 40 mg Documented by: (1) UTI (urinary tract infection) Hematuria presence: with hematuria Urinary tract infection type: site unspecified Qualified Code(s): N39.0 - Urinary tract infection, site not specified; R31.9 - Hematuria, unspecified (2) Sepsis Sepsis acute organ dysfunction status: unspecified Sepsis type: sepsis due to unspecified organism Qualified Code(s): A41.9 - Sepsis, unspecified organism
[2019-01-14] MEDS ORDERED: TRAMADOL HCL 50 MG TABLET PO PRN (17:52)
[2019-01-14] MEDS ORDERED: TRAMADOL HCL 50 MG TABLET PO ONE (17:53)
[2019-01-14] MEDS ORDERED: LIDOCAINE 2% JELLY 5 ML TUBE EXT SCH (18:00)
[2019-01-14] MEDS: ACETAMINOPHEN 325 MG TAB PO PRN (20:42)
[2019-01-15] MEDS: PIPERACILLIN/TAZOBACTAM 4.5 GM in DEXTROSE 5% 100 ML IV SCH ×3 (01:05→17:36)
[2019-01-15 07:32] LABS: Hematocrit (blood only) 28.3 % (42-52); Hemoglobin 9.9 g/dL (14.0-18.0); Mean Corpuscular Hemoglobin 35.1 pg (25-34); Mean Corpuscular Volume 100.4 fL (80-100); Red Blood Count 2.82 M/uL (4.7-6.1); White Blood Count 5.31 K/uL (4.8-10.8)
[2019-01-15 07:35] LABS: Mean Platelet Volume 9.8 fL (7.4-10.4); Platelet Count 41 K/uL (130-400)
[2019-01-15 07:52] LABS: BUN Creatinine Ratio 12.5 (10-20); Calcium 8.4 mg/dl (8.5-10.1); Creatinine Clr Calc Pharmacy 43.1 ml/min; Est GFR (African American) 33.2; Est GFR (Non-African American) 28.6; Potassium 3.6 mmol/L (3.5-5.1)
[2019-01-15] MEDS: PANTOprazole 40 MG TAB PO SCH (08:37)
[2019-01-15] MEDS: MAGNESIUM OXIDE 400 MG TAB PO SCH (08:37)
--- NOTE | 2019-01-15 09:25 | Ultrasound Report ---
US renal/blad retro comp CLINICAL HISTORY: 63 years-old Male presenting with worsening COLLIN, suspect post-obstruct etiology per hx. TECHNIQUE: Real-time grayscale and limited color Doppler ultrasound imaging of the kidneys and bladde r was performed. COMPARISON: CT from 01/12/2019 an ultrasound from 01/07/2019. FINDINGS: Sonographic penetration limited by patient body habitus. This mildly to moderately decreases diagnost ic sensitivity the exam. Right kidney: Normal echogenicity with preserved corticomedullary differentiation. Normal cortical th ickness. Right kidney measures 10.5 cm. No hydronephrosis. No convincing evidence of calculus or mass . Left kidney: Normal echogenicity with preserved corticomedullary differentiation. Normal cortical thi ckness. Left kidney measures 11.7 cm. No hydronephrosis. No convincing evidence of calculus or mass. Bladder: A tract is noted extending from the anterior wall of the bladder to the anterior abdominal w all consistent with the prior suprapubic catheter. Bladder otherwise normal. Bilateral ureteral jets not visualized. Other: Mild to moderate splenomegaly, with the spleen measuring 16.2 cm in maximal sagittal dimension IMPRESSION: Sonographic penetration limited by patient body habitus. This mildly to moderately decreases diagnost ic sensitivity the exam. 1. No hydronephrosis. 2. Splenomegaly. Electronically signed by: Thaddeus Saavedra M.D. 01/15/2019 9:24 AM
[2019-01-15] MEDS: DOXYCYCLINE HYCLATE 100 MG in DEXTROSE 5% 100 ML IV SCH (10:01)
[2019-01-15 11:31] LABS: Appearance Urine Cloudy (Clear); Bacteria Urine Automated Negative (Negative); Bilirubin Urine Negative (Negative); Blood Urine 3+ (Negative); Cast Urine Automated 0 /lpf (0-5); Color Urine Yellow; Epithelial Cell Urine Auto 20-30 /lpf (0-5); Glucose Urine UA Negative (Negative); Ketones Urine Negative (Negative); Leukocyte Esterase Urine 1+ (Negative); Nitrite Urine Negative (Negative); Protein Urine 1+ (Negative); RBC Urine Automated >30 /hpf (0-4); Specific Gravity Urine 1.015 (1.000-1.030); Urobilinogen Urine Negative (Negative); pH Urine 5.5 (4.5-7.5)
[2019-01-15 12:11] LABS: Creatinine Urine Random 50.9 mg/dl
[2019-01-15] MEDS ORDERED: LOPERAMIDE HCL 2 MG CAP PO PRN (12:13)
--- NOTE | 2019-01-15 13:28 | Hospitalist Progress Note ---
Date of Service January 15, 2019 Assessment & Plan (1) Acute kidney injury superimposed on CKD: Likely secondary to sepsis. Patient also received combination Zosyn and vancomycin. Continue to monitor and avoid nephrotoxic substances unless necessary. Renally dose meds. Consulting Nephrology for assistance. Urine studies pending. (2) Sepsis: Resuscitated. Clinically improved overall. Potential sources include urine and oral jairon. It was noted that the patient had Veionella and alpha Streptococcus on last admission in the blood. He also had some issues with gingivitis and gum health. Veionella is typically an oral bacteria so would suspect a mouth infection contributing to bacteremia. When he was discharged he left on 14 days of Levaquin and his urine studies at that time were negative. Urine studies again are negative this admission. Strongly suspect oral infection that is ongoing as a source, however, rickettsial illness also possible. TTE pending later today. Will cont doxy empirically in addition to Zosyn pending further recommendations from ID. Anaplasma screen is pending. Screen for Lyme, however, patient has already received multiple doses of doxy so may need to give empiric treatment as test might result in a false negative. Will discuss further with ID. (3) Abnormal urinalysis: History of urethral stricture status post reconstructive surgery. Urine culture is negative to date. Urology has been consulted and recommends outpatient follow-up for further revision of his urethra. Madrigal is contraindicated. Patient with good output and no evidence of santino urinary retention at this point. With worsening COLLIN, renal US was performed and no hydronephrosis was seen. (4) 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: -Appears compensated -Not currently on any routine medications -Follows with Dr. Badillo (5) Anemia: Likely related to chronic disease, stable and around baseline. No transfusion indicated at this point. Continue to monitor. 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 Improved today (7) GERD (gastroesophageal reflux disease): -Continue PPI (8) DVT prophylaxis: -SCDs, chemoprophylaxis contraindicated in setting of thrombocytopenia Full code Disposition-pending infectious disease recommendations and continued clinical improvement. PT/OT to assess patient for safety to return home Liliana Fu DO [facility] Hospitalist Subjective Patient feels improved today, however, reports 3 loose bowel movements this morning. He has had persistent diarrhea for the last couple of days, likely secondary to antibiotic use. See if was screened and was negative. We discu ssed using minimal Imodium for relief. 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 He reports having Lyme disease twice in the past. He denies any redness or rash that was notable after this time. He also reports a persistent mouth ulceration, and is edentulous. He continues to hydrate well orally and is tolerating food. He is stable for transfer to the floor. Review of Systems Review of Systems: All systems reviewed & are unremarkable except as noted in HPI & below Physical Exam Physical Exam: CONSTITUTIONAL: obese, vitals as above, generally well- appearing EYES: normal conjunctivae, no scleral icterus ENT: MMM RESPIRATORY: clear to auscultation bilaterally, no crackles, rales or wheezes, normal respiratory effort CARDIOVASCULAR: regular rate and rhythm, 3/6 NARAYAN heard at LUSB, no gallops or rubs, no JVD, no peripheral edema GASTROINTESTINAL: normal bowel sounds, soft, nontender, nondistended, no CVA tenderness. MUSCULOSKELETAL: strength 5/5 throughout, head is normocephalic and atraumatic SKIN: warm and dry, no rashes noted. NEUROLOGIC: CN 2-12 grossly intact, no sensory deficit, normal cognition, normal speech, no tremor, no gross focal deficits. PSYCHIATRIC: alert cooperative and oriented to person, place and time. Results & Data Vital Signs (Past 12 Hours) Vital Signs Temp Pulse Pulse Resp BP Pulse Ox 01/15/19 07:50 36.9 C 61 18 137/77 97 01/15/19 06:45 88 01/15/19 03:53 36.5 C 64 20 126/69 96 Laboratory Results Short CBC 01/15/19 Range/Units 07:21 WBC 5.31 (4.8-10.8) K/uL Hgb 9.9 L (14.0-18.0) g/dL Hct 28.3 L (42-52) % Plt Count 41 L (130-400) K/uL BMP 01/15/19 07:21 Sodium 142 Potassium 3.6 Chloride 116 H Carbon Dioxide 22 BUN 29 H Creatinine 2.32 H Glucose 82 Calcium 8.4 L Urine 01/15/19 Range/Units 10:55 Urine Color Yellow Urine Appearance Cloudy A (Clear) Urine pH 5.5 (4.5-7.5) Ur Specific [place] 1.015 (1.000-1.030) Urine Protein 1+ H (Negative) Urine Glucose (UA) Negative (Negative) Medications Administered Current Inpatient Medications Acetaminophen (Tylenol) 650 mg PO Q4H PRN PRN Reason: Pain or Fever Stop: 02/11/19 16:07 Last Admin: 01/14/19 20:42 Dose: 650 mg Documented by: Doxycycline Hyclate (Vibramycin) 100 mg PO BID [facility] Stop: 01/29/19 20:59 Piperacillin Sod/Tazobactam (Sod 4.5 gm/ Dextrose) 120 mls @ 30 mls/hr IV Q8H [facility]; Protocol Stop: 01/22/19 17:59 Last Admin: 01/15/19 10:00 Dose: 30 mls/hr Documented by: Loperamide HCl (Imodium) 2 mg PO UD PRN PRN Reason: Diarrhea Stop: 02/14/19 12:12 Last Admin: 01/15/19 12:20 Dose: 2 mg Documented by: Magnesium Oxide (Mag-Ox) 400 mg PO QAM [facility] Stop: 02/13/19 08:59 Last Admin: 01/15/19 08:37 Dose: 400 mg Documented by: Miscellaneous Information (Consult) 1 ea N/A UD PRN PRN Reason: Consult Stop: 02/11/19 13:08 Pantoprazole Sodium (Protonix) 40 mg PO DAILY [facility] Stop: 02/12/19 08:59 Last Admin: 01/15/19 08:37 Dose: 40 mg Documented by: (1) Sepsis Sepsis acute organ dysfunction status: unspecified Sepsis type: sepsis due to unspecified organism Qualified Code(s): A41.9 - Sepsis, unspecified organism
[2019-01-15] MEDS ORDERED: PERFLUTREN LIPID MICROSPHERE (DEFINITY) IV ONE (15:23)
--- NOTE | 2019-01-15 16:52 | Nephrology Consultation ---
Date of Consultation January 15, 2019 Assessment & Plan (1) Acute kidney injury superimposed on CKD: -- Baseline creatinine appears to be ~ 1.8 -- COLLIN likely related to sepsis/hypotension -- Await results of 01/15 urine cx. Patient may require urethral dilation by Urology -- Abdominal CT negative for hydronephrosis. Punctate L kidney stone noted -- Continue supportive care. Monitor PRP (2) Sepsis: -- Recommend pharmacy consultation to assist w/ antibiotic dosing (consider reducing Zosyn dose) History of Present Illness Reason for Consultation: COLLIN/CKD Attending Physician: Liliana Fu, History of Present Illness Mr. Quiñonez is a 63 year old white male who is seen at the request of Dr. Fu for evaluation of COLLIN/CKD. Medical records in the EMR were reviewed today and are summarized as follows: Mr. Quiñonez has stage III CKD w/ baseline Cr 1.8. His Field Producer is Dr. Martinez. PMH is significant for urethral stricture s/p reconstruction, recurrent UTI, kidney stones, cirrhosis due to SERRANO, psoriatic arthritis, spinal stenosis, HTN and Lyme disease. Mr. Quiñonez presented to the ED 01/12 for evaluation of a febrile illness. He was found to have T 103 w/ BP 88/49. He received volume resuscitation and was admitted for IV antibiotic therapy. Blood cultures revealed a gram negative cocci. Patient has been treated w IV Zosyn therapy. TTE was negative for vegetation. Creatinine has risen to 2.3. Urology has assessed the patient and will consider urethral dilation as outpatient once patient has recovered from the current infection. Allergies Allergy/AdvReac Type Severity Reaction Status Date / Time tamsulosin Allergy Intermediate HIVES Verified 01/12/19 12:40 Home Medications Home Medications Medication Instructions Recorded Confirmed Type omeprazole 20 mg PO DAILY 01/12/19 01/12/19 History Patient History Medical History Anemia (Chronic) Bacteremia CKD (chronic kidney disease), stage III (Chronic) GERD (gastroesophageal reflux disease) (Chronic) Herniated disc (Chronic) LUMBAR AREA Hypertension (Chronic) HX Hypothyroidism (Chronic) Kidney stones (Chronic) 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 (Chronic) Pancytopenia Psoriatic arthritis (Chronic) PVT (portal vein thrombosis) Septicemia due to enterococcus (Resolved) Spinal stenosis (Chronic) EPIDURAL INJECTIONS IN PAST FOR PAIN RELIEF Surgical History History of appendectomy (Chronic) History of arthroscopy (Chronic) RT KNEE History of cataract surgery (Chronic) RT/LEFT History of cholecystectomy (Chronic) History of colonoscopy (Chronic) History of esophagogastroduodenoscopy (EGD) (Chronic) History of herniorrhaphy (Chronic) History of lithotripsy (Chronic) History of liver biopsy (Chronic) History of repair of rotator cuff (Chronic) RT/LEFT History of tooth extraction (Chronic) Nausea and vomiting after administration of anesthetic agent (Resolved) Neuroma (Chronic) REMOVED FROM RT/LEFT FOOT Suprapubic catheter (Resolved) AND REMOVAL Family History Grandmother (Maternal) Family history of diabetes mellitus Social History Preferred Language: Uzbek Communication Ability: Effective Mobile Practice Lead Required: No Beliefs That Will Affect Care: None marital status: Current Living Situation: Spouse Feels Safe at Home: Yes Smoking Status: Never smoker Second Hand Exposure: No ; Hx Alcohol Use: No Hx Substance Use: No Review of Systems Constitutional: no fever Eyes: no worsening vision and no problem reported Ear, Nose, Mouth, Throat: no problem reported Respiratory: no cough and no dyspnea Cardiovascular: no chest pain and no palpitations Gastrointestinal: no abdominal pain, no nausea, no vomiting and no diarrhea/loose stools Genitourinary: + urinary hesitancy; no dysuria and no hematuria Musculoskeletal: no back pain Integumentary: no rash Neurologic: no falls, no dizziness and no confusion Physical Exam Constitutional: not in distress Eyes: PERRL, conjunctivae normal, anicteric sclerae ENMT: external ear and nose normal, oropharynx normal Neck: trachea midline, no thyromegaly Respiratory: normal respiratory effort, lungs clear to auscultation Cardiovascular: Rate/Rhythm: regular rate and regular rhythm Gastrointestinal (Abdomen): normal bowel sounds, soft, nontender, no hepatosplenomegaly Musculoskeletal: Extremities: no cyanosis Skin: no rashes, warm and dry Neurologic: awake; not confused Results & Data Vital Signs (Past 12 Hours) Vital Signs Temp Pulse Pulse Resp BP BP Pulse Ox 01/15/19 13:54 36.6 C 70 18 124/72 98 01/15/19 07:50 36.9 C 61 18 137/77 97 01/15/19 06:45 88 Laboratory Results Laboratory Results - last 24 hr 01/15/19 01/15/19 01/15/19 07:21 07:21 10:55 WBC 5.31 RBC 2.82 L Hgb 9.9 L Hct 28.3 L MCV 100.4 H MCH 35.1 H MCHC 35.0 RDW Std Deviation 59.0 H RDW Coeff of Miguel 16.0 H Plt Count 41 L MPV 9.8 Sodium 142 Potassium 3.6 Chloride 116 H Carbon Dioxide 22 Anion Gap 4.0 BUN 29 H Creatinine 2.32 H Est Cr Clr Drug Dosing 43.1 Est GFR ( Amer) 33.2 Est GFR (Non-Af Amer) 28.6 BUN/Creatinine Ratio 12.5 Glucose 82 Calcium 8.4 L Urine Color Urine Appearance Urine pH Ur Specific [place] Urine Protein Urine Glucose (UA) Urine Ketones Urine Blood Urine Nitrite Urine Bilirubin Urine Urobilinogen Ur Leukocyte Esterase Urine WBC (Auto) Urine RBC (Auto) U Hyaline Cast (Auto) U Epithel Cells (Auto) Urine Bacteria (Auto) Ur Random Creatinine 50.9 Ur Random Sodium 111 01/15/19 01/15/19 10:55 10:55 WBC RBC Hgb Hct MCV MCH MCHC RDW Std Deviation RDW Coeff of Miguel Plt Count MPV Sodium Potassium Chloride Carbon Dioxide Anion Gap BUN Creatinine Est Cr Clr Drug Dosing Est GFR ( Amer) Est GFR (Non-Af Amer) BUN/Creatinine Ratio Glucose Calcium Urine Color Yellow Urine Appearance Cloudy A Urine pH 5.5 Ur Specific [place] 1.015 Urine Protein 1+ H Urine Glucose (UA) Negative Urine Ketones Negative Urine Blood 3+ H Urine Nitrite Negative Urine Bilirubin Negative Urine Urobilinogen Negative Ur Leukocyte Esterase 1+ H Urine WBC (Auto) 10-30 H Urine RBC (Auto) >30 H U Hyaline Cast (Auto) 0 U Epithel Cells (Auto) 20-30 H Urine Bacteria (Auto) Negative Ur Random Creatinine Ur Random Sodium Cancelled PG Care Time/CCT Total # of Minutes Spent Total Time Spent with Patient: Total time spent is greater than 50% in coordination of care (as documented) at patient's floor/unit and/or counseling patient: (1) Sepsis Sepsis acute organ dysfunction status: unspecified Sepsis type: sepsis due to unspecified organism Qualified Code(s): A41.9 - Sepsis, unspecified organism
[2019-01-15] MEDS: DOXYCYCLINE HYCLATE 100 MG CAP PO SCH (20:38)
[2019-01-15] MEDS: ACETAMINOPHEN 325 MG TAB PO PRN (20:48)
[2019-01-16] MEDS: PIPERACILLIN/TAZOBACTAM 4.5 GM in DEXTROSE 5% 100 ML IV SCH ×3 (01:25→18:18)
[2019-01-16 06:51] LABS: Hematocrit (blood only) 28.3 % (42-52); Hemoglobin 9.8 g/dL (14.0-18.0); Mean Corpuscular Hemoglobin 34.9 pg (25-34); Mean Corpuscular Hgb Conc 34.6 g/dL (32-36); Mean Corpuscular Volume 100.7 fL (80-100); RDW Coefficient of Variation 15.7 % (11.5-14.5); RDW Standard Deviation 57.6 fL (36.4-46.3); Red Blood Count 2.81 M/uL (4.7-6.1); White Blood Count 3.52 K/uL (4.8-10.8)
[2019-01-16 07:01] LABS: Mean Platelet Volume 8.9 fL (7.4-10.4); Platelet Count 38 K/uL (130-400)
[2019-01-16 07:23] LABS: BUN Creatinine Ratio 11.5 (10-20); Calcium 8.6 mg/dl (8.5-10.1); Creatinine Clr Calc Pharmacy 41.8 ml/min; Est GFR (Non-African American) 27.6; Potassium 3.7 mmol/L (3.5-5.1)
[2019-01-16] MEDS: PANTOprazole 40 MG TAB PO SCH (07:43)
[2019-01-16] MEDS: MAGNESIUM OXIDE 400 MG TAB PO SCH (07:43)
[2019-01-16] MEDS: DOXYCYCLINE HYCLATE 100 MG CAP PO SCH ×2 (07:44→20:15)
--- NOTE | 2019-01-16 12:45 | Nephrology Progress Note ---
Date of Service January 16, 2019 Assessment & Plan (1) Acute kidney injury superimposed on CKD: -- Baseline creatinine appears to be ~ 1.8 -- COLLIN likely related to sepsis/hypotension -- Await results of 01/15 urine cx. Patient may require urethral dilation by Urology -- Abdominal CT negative for hydronephrosis. Punctate L kidney stone noted -- Continue supportive care. Monitor PRP (2) Sepsis: -- G+ rods anaerobic in blood -- TTE negative for vegetation -- ID consult following -- Remains on Zosyn Subjective No acute events overnight. Overall, feels well this AM. No fevers or chills. No dyspnea. Mild discomfort on inside of left cheek. This has been ongoing x several months. Denies significant urinary complaints. Review of Systems Review of Systems: All systems reviewed & are unremarkable except as noted in HPI & below Physical Exam Constitutional: well developed; no acute distress Eyes: no scleral abnormality and no corneal abnormality ENMT: Mouth: no oral mucosal abnormality and oral mucous membranes not dry Neck: normal visual inspection; + trachea not midline Respiratory: normal respiratory effort Auscultation: lungs clear to auscultation bilaterally Cardiovascular: Rate/Rhythm: regular rate Heart Sounds: normal S1 and normal S2 Extremities: no edema Musculoskeletal: Extremities: no cyanosis and no clubbing Skin: normal turgor; no lesions Neurologic: Motor/Sensory: no tremor and no asterixis Psychiatric: Orientation: alert and oriented x 3 Results & Data Vital Signs (Past 12 Hours) Vital Signs Temp Pulse Resp BP Pulse Ox 01/16/19 07:06 36.7 C 67 18 145/74 H 95 Laboratory Results Laboratory Results - last 24 hr 01/16/19 01/16/19 01/16/19 06:30 06:30 06:30 WBC 3.52 L RBC 2.81 L Hgb 9.8 L Hct 28.3 L MCV 100.7 H MCH 34.9 H MCHC 34.6 RDW Std Deviation 57.6 H RDW Coeff of Miguel 15.7 H Plt Count 38 L MPV 8.9 Sodium 142 Potassium 3.7 Chloride 114 H Carbon Dioxide 22 Anion Gap 6.0 BUN 27 H Creatinine 2.39 H Est Cr Clr Drug Dosing 41.8 Est GFR ( Amer) 32.0 Est GFR (Non-Af Amer) 27.6 BUN/Creatinine Ratio 11.5 Glucose 80 Calcium 8.6 Lyme Disease IgG Ab Pending Lyme Disease IgM Ab Pending PG Care Time/CCT Total # of Minutes Spent Total Time Spent with Patient: Total time spent is greater than 50% in coordination of care (as documented) at patient's floor/unit and/or counseling patient: (1) Sepsis Sepsis acute organ dysfunction status: unspecified Sepsis type: sepsis due to unspecified organism Qualified Code(s): A41.9 - Sepsis, unspecified organism
[2019-01-16 12:53] LABS: Lyme Ab IgG w/WB Rflx Negative (Negative); Lyme Ab IgM w/WB Rflx Negative (Negative)
--- NOTE | 2019-01-16 15:54 | Hospitalist Progress Note ---
Date of Service January 16, 2019 Assessment & Plan (1) Acute kidney injury superimposed on CKD: Likely secondary to sepsis. FeNa was 3.4%. Patient also received combination Zosyn and vancomycin. Continue to monitor and avoid nephrotoxic substances unless necessary. Renally dose meds. Nephrology following. Will trend BMP in a.m. (2) Sepsis: Resuscitated. Clinically improved overall. Potential sources include urine and oral jairon. It was noted that the patient had Veionella and alpha Streptococcus on last admission in the blood. He also had some issues with gingivitis and gum health. Veionella is typically an oral bacteria so would suspect a mouth infection contributing to bacteremia. When he was discharged he left on 14 days of Levaquin and his urine studies at that time were negative. Urine studies again are negative this admission. Strongly suspect oral infection that is ongoing as a source, however, rickettsial illness also possible. TTE is clear. Although Lyme screen was negative he was on doxycycline for several days prior to this test. We will continue 7 more days of doxy for empiric treatment with known tick bite recently. Anaplasma screen is pending. Per ID recommendations he will require not only 7 more days of p.o. doxy but also at least 7 days of IV ertapenem as long as repeat blood cultures are clear. We will plan to monitor for this and send home with a midline in place to continue treatment at home if this is negative. (3) Bacteremia: Not speciated yet, pending repeat cultures. If cleared we will plan to send home on 7 days ertapenem as above. 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 Improved today (5) Abnormal urinalysis: History of urethral stricture status post reconstructive surgery. Urine culture is negative to date. Urology has been consulted and recommends outpatient follow-up for further revision of his urethra. Madrigal is contraindicated. Patient with good output and no evidence of santino urinary retention at this point. With worsening COLLIN, renal US was performed and no hydronephrosis was seen. 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 Continue doxycycline for an additional 7 days per ID recommendations. (7) 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: -Appears compensated -Not currently on any routine medications -Follows with Dr. Badillo (8) Anemia: Likely related to chronic disease, stable and around baseline. No transfusion indicated at this point. Continue to monitor. (9) GERD (gastroesophageal reflux disease): -Continue PPI (10) DVT prophylaxis: SCDs, chemoprophylaxis contraindicated in setting of thrombocytopenia Full code Disposition-pending infectious disease recommendations and continued clinical improvement. PT/OT to assess patient for safety to return home Liliana Fu DO [facility] Hospitalist Subjective Patient is feeling well. He is concerned about his will be left alone with no one to care for her tomorrow. He is asking to be discharged as soon as possible. Discussed the case with ID who recommends 7 more days of IV antibiotics as long as the second blood cultures are cleared. Additionally, patient denies any fevers, chills or other symptoms at this time. He has been tolerating p.o. and ambulating at baseline. He is mentating at baseline and has been stable for several days. Review of Systems Review of Systems: All systems reviewed & are unremarkable except as noted in HPI & below Physical Exam Physical Exam: CONSTITUTIONAL: obese, vitals as above, generally well- appearing EYES: normal conjunctivae, no scleral icterus ENT: MMM RESPIRATORY: clear to auscultation bilaterally, no crackles, rales or wheezes, normal respiratory effort CARDIOVASCULAR: regular rate and rhythm, 3/6 NARAYAN heard at LUSB, no gallops or rubs, no JVD, no peripheral edema GASTROINTESTINAL: normal bowel sounds, soft, nontender, nondistended, no CVA tenderness. MUSCULOSKELETAL: strength 5/5 throughout, head is normocephalic and atraumatic SKIN: warm and dry, no rashes noted. NEUROLOGIC: CN 2-12 grossly intact, no sensory deficit, normal cognition, normal speech, no tremor, no gross focal deficits. PSYCHIATRIC: alert cooperative and oriented to person, place and time. Results & Data Vital Signs (Past 12 Hours) Vital Signs Temp Pulse Resp BP BP Pulse Ox 01/16/19 15:12 36.7 C 61 18 135/80 98 01/16/19 07:06 36.7 C 67 18 145/74 H 95 Laboratory Results Short CBC 01/16/19 Range/Units 06:30 WBC 3.52 L (4.8-10.8) K/uL Hgb 9.8 L (14.0-18.0) g/dL Hct 28.3 L (42-52) % Plt Count 38 L (130-400) K/uL BMP 01/16/19 06:30 Sodium 142 Potassium 3.7 Chloride 114 H Carbon Dioxide 22 BUN 27 H Creatinine 2.39 H Glucose 80 Calcium 8.6 Medications Administered Current Inpatient Medications Acetaminophen (Tylenol) 650 mg PO Q4H PRN PRN Reason: Pain or Fever Stop: 02/11/19 16:07 Last Admin: 01/15/19 20:48 Dose: 650 mg Documented by: Doxycycline Hyclate (Vibramycin) 100 mg PO BID [facility] Stop: 01/29/19 20:59 Last Admin: 01/16/19 07:44 Dose: 100 mg Documented by: Piperacillin Sod/Tazobactam (Sod 4.5 gm/ Dextrose) 120 mls @ 30 mls/hr IV Q8H [facility]; Protocol Stop: 01/22/19 17:59 Last Infusion: 01/16/19 13:57 Dose: Infused Documented by: Loperamide HCl (Imodium) 2 mg PO UD PRN PRN Reason: Diarrhea Stop: 02/14/19 12:12 Last Admin: 01/15/19 12:20 Dose: 2 mg Documented by: Magnesium Oxide (Mag-Ox) 400 mg PO QAM [facility] Stop: 02/13/19 08:59 Last Admin: 01/16/19 07:43 Dose: 400 mg Documented by: Miscellaneous Information (Consult) 1 ea N/A UD PRN PRN Reason: Consult Stop: 02/11/19 13:08 Pantoprazole Sodium (Protonix) 40 mg PO DAILY [facility] Stop: 02/12/19 08:59 Last Admin: 01/16/19 07:43 Dose: 40 mg Documented by: (1) Sepsis Sepsis acute organ dysfunction status: unspecified Sepsis type: sepsis due to unspecified organism Qualified Code(s): A41.9 - Sepsis, unspecified organism
--- NOTE | 2019-01-16 18:09 | Infectious Disease Progress Nt ---
Date of Service January 16, 2019 Assessment & Plan (1) Gram negative sepsis: 63-year-old male with recurrent gram-negative sepsis, likely with Veillonella recovered during last admission as well. Potential original source is from severe dental problems. Echocardiogram with no evidence of endocarditis, would give 7 days of IV antibiotics after negative blood cultures. Recommend ertapenem and to allow easier outpatient therapy. Discussed with hospitalist. Will follow. (2) UTI (urinary tract infection): Subjective Patient seen in follow-up for gram-negative sepsis. Isolate still not identified, but likely Veillonella that was seen in prior blood cultures. Patient feeling better, offers no new specific complaints. Cardiogram without any evidence of valvular heart disease or vegetations. Review of Systems Review of Systems: All systems reviewed & are unremarkable except as noted in HPI & below Physical Exam Constitutional: WD/WN, vitals as above comfortable; no acute distress Eyes: PERRL, conjunctivae normal, anicteric sclerae ENMT: external ear and nose normal, oropharynx normal Neck: trachea midline, no thyromegaly neck nontender Respiratory: normal respiratory effort, lungs clear to auscultation normal percussion; does not use accessory muscles Cardiovascular: Rate/Rhythm: regular rate and regular rhythm Heart Sounds: normal S1 and normal S2; no gallop, no murmur and no cardiac rub Vessels: normal peripheral pulses; no JVD Gastrointestinal (Abdomen): normal bowel sounds, soft, nontender, no hepatosplenomegaly Musculoskeletal: no cyanosis or clubbing, extremities motor strength 5/5 Spine: thoracic spine normal to inspection and lumbar spine normal to inspection; no cervical spinal tenderness Skin: no rashes, warm and dry normal turgor; no lesions Neurologic: patellar DTR's 2+ bilat, sensation intact no focal motor deficits Psychiatric: A+Ox3, euthymic affect Orientation: cooperative Lymphatic: no cervical or axillary lymphadenopathy no inguinal lymphadenopathy Results & Data Vital Signs (Past 12 Hours) Vital Signs Temp Pulse Resp BP BP Pulse Ox 01/16/19 15:12 36.7 C 61 18 135/80 98 01/16/19 07:06 36.7 C 67 18 145/74 H 95 Laboratory Results Short CBC 01/16/19 Range/Units 06:30 WBC 3.52 L (4.8-10.8) K/uL Hgb 9.8 L (14.0-18.0) g/dL Hct 28.3 L (42-52) % Plt Count 38 L (130-400) K/uL BMP 01/16/19 06:30 Sodium 142 Potassium 3.7 Chloride 114 H Carbon Dioxide 22 BUN 27 H Creatinine 2.39 H Glucose 80 Calcium 8.6 Diagnostic Findings Microbiology 01/12/19 11:52 Blood Aerobic Blood Culture - Preliminary No growth in Aerobic bottle after 48 hours. 01/12/19 11:52 Blood Anaerobic Blood Culture - Preliminary Veillonella species 01/12/19 11:55 Blood Aerobic Blood Culture - Preliminary No growth in Aerobic bottle after 48 hours. 01/12/19 11:55 Blood Anaerobic Blood Culture - Preliminary Veillonella species 01/15/19 10:55 Urine,Clean Catch Urine Culture - Preliminary No growth - Less than 1,000 colonies/mL, Final report to follow. 01/12/19 10:58 Urine,Clean Catch Urine Culture - Final More than three types of organisms present, all high counts mixed probable skin jairon - No further identifications or sensitivities to follow. PG Care Time/CCT Total # of Minutes Spent Total Time Spent with Patient: Total time spent is greater than 50% in coordination of care (as documented) at patient's floor/unit and/or counseling patient: (1) UTI (urinary tract infection) Hematuria presence: with hematuria Urinary tract infection type: site unspecified Qualified Code(s): N39.0 - Urinary tract infection, site not specified; R31.9 - Hematuria, unspecified
[2019-01-16] MEDS: ACETAMINOPHEN 325 MG TAB PO PRN (22:23)
[2019-01-17] MEDS: PIPERACILLIN/TAZOBACTAM 4.5 GM in DEXTROSE 5% 100 ML IV SCH ×2 (01:59→09:42)
[2019-01-17 06:41] LABS: Hematocrit (blood only) 27.3 % (42-52); Hemoglobin 9.6 g/dL (14.0-18.0); Mean Corpuscular Hemoglobin 34.4 pg (25-34); Mean Corpuscular Hgb Conc 35.2 g/dL (32-36); Mean Corpuscular Volume 97.8 fL (80-100); RDW Standard Deviation 53.5 fL (36.4-46.3); Red Blood Count 2.79 M/uL (4.7-6.1); White Blood Count 3.43 K/uL (4.8-10.8)
[2019-01-17 06:42] LABS: Mean Platelet Volume 9.7 fL (7.4-10.4); Platelet Count 42 K/uL (130-400)
[2019-01-17 07:12] LABS: Albumin Level 2.1 gm/dl (3.4-5.0); Calcium 8.5 mg/dl (8.5-10.1); Creatinine Clr Calc Pharmacy 42.9 ml/min; Est GFR (Non-African American) 28.5; Phosphorus 2.9 mg/dl (2.5-4.9); Potassium 3.6 mmol/L (3.5-5.1)
[2019-01-17] MEDS: PANTOprazole 40 MG TAB PO SCH (07:43)
[2019-01-17] MEDS: MAGNESIUM OXIDE 400 MG TAB PO SCH (07:43)
[2019-01-17] MEDS: DOXYCYCLINE HYCLATE 100 MG CAP PO SCH (07:43)
--- NOTE | 2019-01-17 11:22 | Nephrology Progress Note ---
Date of Service January 17, 2019 Assessment & Plan (1) Acute kidney injury superimposed on CKD: -- Baseline creatinine ~ 1.8 -- COLLIN related to sepsis/hypotension -- Creatinine stable at 2.33 mg/dL -- Outpatient urology follow up scheduled for next week -- Abdominal CT negative for hydronephrosis. Punctate L kidney stone noted -- Stable for discharge. Repeat metabolic profile Saturday or Saturday. Follow up in the nephrology clinic in 2 weeks. (2) Sepsis: -- ID suggested 7 days of IV antibiotics after negative blood cultures (3) Bacteremia: Subjective No acute events overnight. Sebastian feels well today. Plan of care reviewed with Dr. Fu. No fevers or chills. Review of Systems Review of Systems: All systems reviewed & are unremarkable except as noted in HPI & below Physical Exam Constitutional: well developed; no acute distress Eyes: no scleral abnormality and no corneal abnormality ENMT: Mouth: no oral mucosal abnormality and oral mucous membranes not dry Neck: normal visual inspection and trachea midline Respiratory: normal respiratory effort Auscultation: lungs clear to auscultation bilaterally Cardiovascular: Rate/Rhythm: regular rate Heart Sounds: normal S1 and normal S2 Extremities: no edema Musculoskeletal: Extremities: no cyanosis and no clubbing Skin: normal turgor; no lesions Neurologic: Motor/Sensory: no tremor and no asterixis Psychiatric: Orientation: alert and oriented x 3 Results & Data Vital Signs (Past 12 Hours) Vital Signs Temp Pulse Resp BP BP Pulse Ox 01/17/19 07:00 36.7 C 58 L 18 128/79 97 01/16/19 23:45 36.7 C 64 18 119/70 98 Laboratory Results Laboratory Results - last 24 hr 01/13/19 01/16/19 01/17/19 15:14 06:30 06:27 WBC RBC Hgb Hct MCV MCH MCHC RDW Std Deviation RDW Coeff of Miguel Plt Count MPV Sodium 142 Potassium 3.6 Chloride 111 H Carbon Dioxide 23 Anion Gap 7.0 BUN 26 H Creatinine 2.33 H Est Cr Clr Drug Dosing 42.9 Est GFR ( Amer) 33.0 Est GFR (Non-Af Amer) 28.5 BUN/Creatinine Ratio 11.0 Glucose 90 Calcium 8.5 Phosphorus 2.9 Albumin 2.1 L A. phagocytophilum DNA Not Detected Lyme Disease IgG Ab Negative Lyme Disease IgM Ab Negative 01/17/19 06:31 WBC 3.43 L RBC 2.79 L Hgb 9.6 L Hct 27.3 L MCV 97.8 MCH 34.4 H MCHC 35.2 RDW Std Deviation 53.5 H RDW Coeff of Miguel 15.0 H Plt Count 42 L MPV 9.7 Sodium Potassium Chloride Carbon Dioxide Anion Gap BUN Creatinine Est Cr Clr Drug Dosing Est GFR ( Amer) Est GFR (Non-Af Amer) BUN/Creatinine Ratio Glucose Calcium Phosphorus Albumin A. phagocytophilum DNA Lyme Disease IgG Ab Lyme Disease IgM Ab PG Care Time/CCT Total # of Minutes Spent Total Time Spent with Patient: Total time spent is greater than 50% in coordination of care (as documented) at patient's floor/unit and/or counseling patient: (1) Sepsis Sepsis acute organ dysfunction status: unspecified Sepsis type: sepsis due to unspecified organism Qualified Code(s): A41.9 - Sepsis, unspecified organism
[2019-01-17] MEDS ORDERED: ERTAPENEM SODIUM 1,000 MG in SODIUM CHLORIDE 0.9% 50 ML IV SCH (13:00)
--- NOTE | 2019-01-17 14:00 | Discharge Summary ---
Date of Service January 17, 2019 Admission HPI Per Admitting Provider 63-year-old male who presents the ED for evaluation of chills and generally not feeling well. Patient reports he has history of sepsis secondary to urinary tract infection and reports he feels very similar to how he has in the past with sepsis. Patient reports he woke up around 4:00 in the morning and had shaking chills. He did not take his temperature. Yesterday, he noted his urine to have a foul, strong odor. While in the ED, he developed some mild generalized abdominal pain. Denies nausea and vomiting. No diarrhea. Reports he otherwise has been feeling well recently. No chest pain or shortness of breath. Denies lightheadedness and dizziness. He has chronic back pain which is unchanged from baseline. In the ED, patient is found to be febrile at 39.6 and tachycardic. Initially BP was stable however during my exam, noted to be 88/49. Additional 1 L IVF bolus was ordered. UA suggests UTI. CT ABD/pelvis is negative for acute findings. Patient was given IV Tylenol, IV Zosyn, IV Vanco, IVF, and potassium and magnesium repletion. Admission Exam Per Admitting Provider Constitutional: WD/WN, vitals as above + obese Eyes: PERRL, conjunctivae normal, anicteric sclerae ENMT: external ear and nose normal, oropharynx normal Respiratory: normal respiratory effort, lungs clear to auscultation Cardiovascular: Rate/Rhythm: regular rhythm and + tachycardic Vessels: normal peripheral pulses Extremities: + edema (+2 edema BLE) Gastrointestinal (Abdomen): Inspection/Auscultation: normal bowel sounds Percussion/Palpation: + abdomen tender (mild, generalized) and abdomen soft; no guarding and no hepatosplenomegaly Musculoskeletal: no cyanosis or clubbing, extremities motor strength 5/5 Skin: no rashes, warm and dry Neurologic: PERRL, EOMI, accommodation nl, no face palsy, no dysarthria Psychiatric: A+Ox3, euthymic affect Principal Diagnosis Gram negative bacteremia with sepsis Acute on chronic kidney disease Discharge Exam CONSTITUTIONAL: obese, vitals as above, generally well-appearing, ambulatory EYES: normal conjunctivae, no scleral icterus ENT: MMM RESPIRATORY: clear to auscultation bilaterally, no crackles, rales or wheezes, normal respiratory effort CARDIOVASCULAR: regular rate and rhythm, 3/6 NARAAYN heard at LUSB, no gallops or rubs, no JVD, no peripheral edema GASTROINTESTINAL: normal bowel sounds, soft, nontender, nondistended, no CVA tenderness. MUSCULOSKELETAL: strength 5/5 throughout, head is normocephalic and atraumatic SKIN: warm and dry, no rashes noted. NEUROLOGIC: CN 2-12 grossly intact, no sensory deficit, normal cognition, normal speech, no tremor, no gross focal deficits. PSYCHIATRIC: alert cooperative and oriented to person, place and time. Discharge Data Allergies Allergy/AdvReac Type Severity Reaction Status Date / Time tamsulosin Allergy Intermediate HIVES Verified 01/20/19 13:26 Consultations 01/12/19 13:12 ED Decision to Admit Stat 01/12/19 16:27 Consult Urology Routine 01/14/19 08:59 Consult Infectious Diseases Routine 01/15/19 10:35 Consult Nephrology Routine Ordered Studies 01/12/19 11:07 CT abd pelvis wo con Stat 01/15/19 07:10 US renal/blad retro comp Routine Hospital Course (1) Sepsis: (2) Bacteremia: (3) Acute kidney injury superimposed on CKD: (4) Thrombocytopenia: (5) Rickettsial infection: The patient was admitted to the hospitalist service and placed on telemetry. Sepsis treatment included vancomycin and Zosyn in addition to IV fluids. Presumed source was initially a urinary tract infection, however cultures were ultimately negative. He was found to have a gram-negative bacteremia which grew out Veionella species. This is the second time in two months this species has grown in his blood. The last time he was hospitalized he was treated with 14 days of Levaquin on discharge. Infectious disease was consulted and recommended continued treatment with Zosyn and a TTE out of concern this organism was recurring and has been linked to endocarditis. A transthoracic echocardiogram was performed on 01/15 and revealed no evidence of valvular lesions within the scope of imaging modality. Left ventricular systolic function was normal with an EF of 55 to 60% and grade II diastolic dysfunction was present. Aortic valve sclerosis was also seen without significant aortic valve stenosis. Additionally, his kidney function worsened without improvement, so nephrology was consulted. His baseline creatinine was approximately 1.8 and increased with a plateau around 2.3. At the time he was considered for discharge he had been clinically stable for several days despite his continued renal decline. In lieu of continued hospitalization, a close repeat metabolic panel was recommended with a follow-up in the nephrology clinic in two weeks time with Dr. Finn Martinez. Work-up for included a renal ultrasound which was negative for hydronephrosis, a concern after known urethral reconstruction. Urology was also consulted and will see him in close follow-up as outpatient to consider further reconstructive efforts. In the setting of sepsis his thrombocytopenia became worse but then improved with treatment of his infection. Platelet level at time of discharge was 42, which is slightly lower than his baseline. No active bleeding was present and his H&H was remaining stable around his baseline. He does have an ongoing mouth infection that is been present now for several months. As Veionella is an organism that is typically seen in the oral cavity, this should be a consideration for a potential source of persistent bacteremia. The patient is edentulous but may benefit from dental or OMFS evaluation. Additionally, a follow up with an infectious disease specialist will be important to discuss the need for TAWNYA since the same organism has recurred, to completely exclude endocarditis. At time of discharge he was hemodynamically stable and afebrile and tolerating p.o. He was mentating ambulating at baseline and was stable for discharge. A long- term IV was placed and he was continued on IV Ertapenem. Out of initial concern for rickettsial disease he was also continued on an oral course of doxycycline, which had been started on admission. Ultimately Anaplasma PCR and Lyme AB results were negative, however this was not available at time discharge. The patient is frequently exposed to ticks and was recently exposed to ticks within 7 days of arrival to the hospital. He was discharged in stable condition with close primary care follow-up recommended. Total Time Total Time Spent Total Time Spent (In Minutes): 60 Total Time Includes: Examination of the Patient, Discharge Planning, Medication Reconciliation, Communication With Other Providers and Other (arrange follow-up) Discharge Plan Discharge Items Patient Disposition: Home - Home Health Services Reason For Visit: UTI, SEPSIS Discharge Diagnosis: Gram negative bacteremia with sepsis Acute on chronic kidney disease Condition on Discharge: Good Activity: Resume your previous activity Non-emergency contact: Primary Care Provider Call non-emergency contact if: you have any medication questions, your symptoms worsen, your pain is not controlled, your pain is worsening, your pain is unusual for you, your pain is concerning for you and you have a fever Follow-up/Referrals: Finn Martinez DO [Physician] - Norris Truong [Primary Care Provider] - Diet: Regular Addtl Attending Provider Instructions: Please take all medications as instructed on discharge list below. You are being given 7 more days of Doxycycline to empirically treat you for tick-born illness. You are being given 7 more days of intravenous antibiotics to treat the bacteria in your blood. You will need to follow-up with your primary care physician within one week of discharge to ensure you are feeling well, and to look at the blood culture results and determine if further antibiotics are needed. It is recommended that you have nonfasting bloodwork on Saturday with results sent to Dr. Finn Martinez. A prescription is being provided for you at discharge to get this done. He would also like to see you in the clinic within two weeks. It was a pleasure taking care of you! Please call if you have any questions or problems. You can reach a [facility] hospitalist on duty at [facility] 24 hours a day by calling [phone]. Take care of yourself. Liliana Fu DO [facility] Hospitalist Pending Studies at Discharge: Yes Studies:: Blood culture, anaplasma PCR Stand-Alone Forms: My [facility], Smoking Cessation Medications and DC Order Prescriptions: New doxycycline hyclate 100 mg Capsule 100 mg PO BID Qty: 14 RF: 0 Continued omeprazole 20 mg Tablet,Disintegrat, Delay Rel 20 mg PO QAM RF: 0 No Action ertapenem [Invanz] 1 gram recon soln 1 gm IV DAILY RF: 0 Discharge Orders: Discharge Order (Routine); Ordered 01/17/19 Ordered By: Liliana Fu Admission Data Admit Date/Time: 01/12/19 13:48 Attending Provider: Liliana Fu Admit Provider: Gio Ag Primary Care Provider: Norris Truong Other Providers: Alec Mera ; Gwyn Guzman ; Jay Moore ; Finn Martinez Other Interventions: Discharge Summary Assessment (RN) Last Done: 01/17/19 14:14 DC Date/Time DO NOT enter until pt leaves facility: 01/17/19 15:15
== END 2019-01-17 15:15 | disposition home health service (06) | DRG 872 ==
LOC: ED 10:49 → 2S 13:48 → SUATTDRO 13:48 → 2S 15:31 → 4W 01-15 13:44

== ENCOUNTER 2021-05-10 15:46 | Inpatient (IN) ==
[2021-05-10 17:23] LABS: Hematocrit (blood only) 18.9 % (42-52); Hemoglobin 6.1 g/dL (14.0-18.0); Mean Corpuscular Hemoglobin 32.1 pg (25-34); Mean Corpuscular Hgb Conc 32.3 g/dL (32-36); Mean Corpuscular Volume 99.5 fL (80-100); Mean Platelet Volume 9.7 fL (7.4-10.4); Platelet Count 94 K/uL (130-400); RDW Coefficient of Variation 15.1 % (11.5-14.5); RDW Standard Deviation 53.2 fL (36.4-46.3); White Blood Count 5.65 K/uL (4.8-10.8)
[2021-05-10 17:35] LABS: INR 1.2 (0.9-1.1); Partial Thromboplastin Time 26.8 Seconds (21.0-31.0); Prothrombin Time 12.8 Seconds (9.0-12.0)
[2021-05-10 17:38] LABS: Albumin Globulin Ratio 0.7 (0.9-2); Albumin Level 2.5 gm/dl (3.4-5.0); BUN Creatinine Ratio 11.2 (10-20); Bilirubin,Total 1.4 mg/dl (0.2-1.0); Calcium 8.1 mg/dl (8.5-10.1); Creatinine Clr Calc Pharmacy 53.9 ml/min; Est GFR (African American) 44.5 ml/min; Est GFR (Non-African American) 38.4 ml/min; Globulin 3.4 gm/dl (2.5-4.0); Potassium 3.6 mmol/L (3.5-5.1); Total Protein 5.9 gm/dl (6.0-8.3)
[2021-05-10 17:49] LABS: Platelet Estimate Decreased (Normal)
--- NOTE | 2021-05-10 18:09 | CT Scan Report ---
ABDOMEN AND PELVIS CT WITHOUT CONTRAST CT DOSE: 1586.68 mGy.cm HISTORY: Acute abdominal pain with reported nausea and anemia mid abd pain, anemia, hgb 6.5 TECHNIQUE: Multiaxial CT images of the abdomen and pelvis were performed without contrast. A dose lo wering technique was utilized adhering to the principles of ALARA. COMPARISON STUDY: CT abdomen and pelvis 01/12/2019 FINDINGS: The heart is upper limits of normal in size. Decreased attenuation of the cardiac blood pool compatib le with anemia. Clear lung bases. No pneumatosis or pneumoperitoneum. Spleen measures up to 14 cm in length. Mild generalized pancreatic atrophy. Unremarkable adrenal glands. Cholecystectomy. Cirrhotic liver. No hepatic mass identified. There are least 4 nonobstructing calculi of the left kidney measur ing up to 4 mm. 4 mm nonobstructing calculus of the superior pole right kidney. 1.3 cm cyst of the scherer perior pole right kidney. No ureteral calculi or hydronephrosis. Circumferential urinary bladder wall thickening with partial distention. Unremarkable prostate. Atherosclerosis of the aorta without aneu rysm. No adenopathy. Small volume of abdominal pelvic ascites with abdominal varices. No bowel obstruction or bowel wall thickening. There is diffuse wall thickening of the stomach which is likely secondary to partial distention. Curvilinear 2.6 cm metallic radiodensity structure is note d within the cecum. Reported appendectomy. Generalized body wall edema. Degenerative changes of the s pine, pelvis and hips. IMPRESSION: 1. No bowel obstruction or bowel wall thickening. 2. Cirrhosis with stigmata of portal venous hypertension including splenomegaly with small volume of abdominal pelvic ascites. 3. Nonobstructing bilateral nephrolithiasis. No ureteral calculi or hydronephrosis. 4. Gastric wall thickening is likely secondary to partial distention. A nonspecific gastritis could a ppear similarly. 5. Additional findings as above. ACT 112: Negative or not required by law. The above report was generated using voice recognition software. It may contain grammatical, syntax o r spelling errors. Electronically signed by: Alan Espino M.D. 05/10/2021 6:06 PM
[2021-05-10] MEDS ORDERED: PANTOprazole 80 MG in DEXTROSE 5% 100 ML IV ONE (18:35)
[2021-05-10] MEDS ORDERED: FAMOTIDINE 20MG IV PUSH 20 MG/5 ML SYR IV STA (18:35)
[2021-05-10] MEDS ORDERED: PANTOPRAZOLE BOLUS/DRIP 1 EA IV STA (18:35)
[2021-05-10] MEDS ORDERED: SODIUM CHLORIDE 0.9% 250 ML IV PRN ×2 (18:58→22:39)
--- NOTE | 2021-05-10 19:10 | Emergency Department Note ---
Impression & Plan Symptomatic anemia, Gastritis, Ascites, Edema of both lower legs ED Provider Note INFORMANT: Patient ED PROVIDER(S): Bao Evans MD CHIEF COMPLAINT: Abnormal labs, anemia PLAN: Disposition: Admitted Condition: Good Outpatient prescription management: none Referral: None MEDICAL DECISION MAKING: Patient presented to emergency department because of abnormal hemoglobin as an outpatient. He has a history of anemia. Has been followed by hematology. He also noted some epigastric and mid abdominal pain on examination. A work-up was initiated. His CBC did reveal chronic thrombocytopenia as well as significant anemia with a hemoglobin of 6.1. We did discuss transfusion and patient consented. Blood transfusion was ordered. The patient was sent for CT imaging and he was found to have findings that could support a gastritis. He denied having any significant melena or hematochezia as of late. He noted 1 episode of further questioning may be about a month ago. The patient has seen [facility] in the past. He will need further evaluation and management in the hospital. I did treat him with Protonix as well as Pepcid. Consultation was made with the [facility] service. Patient was evaluated in the ER for further management. Triage Nursing notes reviewed and agree them. Vital Signs: reviewed and remarkable for no significant abnormalities Differential diagnosis: Exacerbation of chronic anemia, renal disease, marrow failure, diverticulosis, AVM, coagulopathy, colitis, inflammatory bowel disease, malignancy, Radha- Olivo tear, esophagitis, peptic ulcer disease, variceal bleed, gastritis, as well as other pathologies. Diagnostics interpreted by me: ECG: none Cardiac Monitoring: Cardiac monitoring ordered by me: The patient was placed on continuous cardiac monitoring and observed. It revealed a normal sinus rhythm at 66 beats per minute without ectopy or evidence of dysrhythmia. Imaging studies: CT scan as noted above. Gastritis. HPI: The patient is a 66year old male who presents to the Emergency Room with complaints of anemia. This was found on outpatient labs and noted to be a hemoglobin of 6.1. Patient has a history of anemia and has been transfused in the past. He does see hematology.. The patient also notes the following ass ociated symptoms, fatigue, shortness of breath with exertion, pale, lower extremity edema, midepigastric abdominal pain. The patient has been given no medication for relieving factors. Current pain is rated as 0/10. Pt denies LOC, headache, fevers, chills, diaphoresis, visual changes, neck pain, chest pain, nausea, vomiting, back pain, melena, hematochezia, urinary symptoms, numbness, weakness, lymphadenopathy, rash, or other complaints. ROS: See above HPI for pertinent positives & negatives. A total of 10 systems reviewed and were otherwise negative. PAST MEDICAL HISTORY:See Below , anemia, tachycardia, kidney stone PAST SURGICAL HISTORY:See Below, FAMILY HISTORY:See Below SOCIAL HISTORY:See Below, non-smoker HOME MEDICATIONS:See Below ALLERGIES:See Below VITALS:See Below PHYSICAL EXAMINATION: GENERAL: Awake, alert, pale-appearing, in no distress HENT: Normocephalic, atraumatic. Oropharynx unremarkable. EYES: Pale conjunctiva. Sclera non-icteric. NECK: Inspection normal. Non-tender. Supple. No nuchal rigidity. FROM. No masses. RESPIRATORY: Clear to auscultation. No wheezes. No rales. Normal respiratory effort. CARDIAC: Normal rate. Normal rhythm. No murmurs. No rubs. Extremities warm and well perfused. Pulses equal. No JVD. GI: Soft, non-distended. No tenderness to palpation. No rebound or guarding. No masses. RECTAL: Deferred. MUSCULOSKELETAL: Atraumatic. Chest examination reveals no tenderness. The back is symmetrical on inspection without obvious abnormality. There is no CVA tenderness to palpation. No joint edema. LOWER EXTREMITIES: Calves are equal size bilaterally and non-tender. 3+ edema. No discoloration. NEURO: Normal sensorium. No sensory or motor deficits noted. SKIN: No rash or jaundice noted. CRITICAL CARE: I have personally spent greater than 35 minutes of critical care time in the direct management of this patient. This includes bedside care, interpretation of diagnostic studies, and testing, discussion with consultants, patient, and other required patient management activities. These minutes are in excess of all separately billable procedures. Bao Evans MD Past Med/Surg History Medical History CKD (chronic kidney disease), stage III GAVE (gastric antral vascular ectasia) GERD (gastroesophageal reflux disease) History of SCC (squamous cell carcinoma) of skin Hypertension Hypothyroidism 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 Oral mucositis Pancytopenia Psoriatic arthritis Spinal stenosis Urinary retention Wide-complex tachycardia Surgical History H/O foot surgery History of appendectomy History of arthroscopy History of cataract surgery History of cholecystectomy History of esophagogastroduodenoscopy (EGD) History of herniorrhaphy History of lithotripsy History of liver biopsy History of repair of rotator cuff History of tooth extraction History of urologic surgery Nausea and vomiting after administration of anesthetic agent S/P epidural steroid injection S/P orchiectomy S/P urological surgery (2018) Suprapubic catheter Family History Grandmother (Maternal) Diabetes Father Renal cancer Mother Aortic aneurysm Denies family history of Ovarian cancer Prostate cancer Myocardial infarction Breast cancer Colorectal cancer Social History Smoking Status: Never smoker Second Hand Exposure: No; Hx Alcohol Use: No Hx Substance Use: No Preferred Language: Spanish Communication Ability: Effective Visual Impairment: No Limitations Hearing Ability: Hard of Hearing Street Department Dispatcher Required: No Beliefs That Will Affect Care: None marital status: ( PASSED 02/01/2021 FROM COMPLICATIONS OF COVID) Current Living Situation: Family Current Living Situation Comment: SON LIVING WITH PT CURRENTLY current occupational status: retired How many Children do You have: 2 Feels Safe at Home: Yes caffeine: Yes during the past year weight has: increased > 10 lbs Dental Care, Regularly: No Physical Activity Frequency: Other Physical Activity Frequency Comment: currently can not excercise due to physical condition Seatbelt Use: never Sunscreen Use: No Assistive Devices: Denture - Upper and Denture - Lower Allergies Allergies Allergy/AdvReac Type Severity Reaction Status Date / Time tamsulosin Allergy Intermediate HIVES Verified 05/10/21 17:07 etanercept [From Enbrel] AdvReac Unknown Increased Verified 05/10/21 17:07 infections Home Meds Home Medications Medication Instructions Recorded Confirmed cholecalciferol (vitamin D3) 50 50 mcg PO QAM 02/22/21 05/10/21 mcg (2,000 unit) capsule potassium, sodium phosphates 280 1 packet PO QAM 02/22/21 05/10/21 mg-160 mg-250 mg oral powder packet (Phos-NaK) betamethasone dipropionate 0.05 % 1 applic TOPICAL DIRECTED 05/10/21 05/10/21 topical ointment dexamethasone 0.5 mg/5 mL oral 10 ml PO DIRECTED 05/10/21 05/10/21 elixir Previous Rx's Medication Instructions Recorded furosemide 20 mg tablet 40 mg PO BID #360 tab 06/23/20 chlorhexidine gluconate 0.12 % 15 ml BUCCAL BID #473 ml 09/28/20 mouthwash (Peridex) potassium chloride 20 mEq 40 meq PO BID #360 tab 11/10/20 tablet,extended release omeprazole 20 mg delayed 20 mg PO BID #180 tab 02/09/21 release,disintegrating tablet metoprolol succinate 25 mg 25 mg PO QAM #90 tab 03/23/21 tablet,extended release 24 hr adalimumab 40 mg/0.4 mL 40 mg SUBCUT Q14D #2 ea 04/06/21 subcutaneous pen kit (Humira(CF) Pen) Results & Data (ED) Vital Signs Vital Signs - 24 hr 05/10/21 15:53 05/10/21 17:00 05/10/21 17:22 Temperature 36.7 C Temperature Source Temporal Artery Scan Pulse Rate 91 H 80 Pulse Rate [Apical] 75 Pulse Rate from SpO2 Sensor Pulse Rhythm [Apical] Respiratory Rate 18 16 14 Respiratory Effort / Characteristics Non-Labored Non-Labored Respiratory Depth Normal Normal Blood Pressure 134/78 Blood Pressure [Left Arm] Blood Pressure Mean 96 Blood Pressure Mean [Left Arm] Blood Pressure Position [Left Arm] Pulse Oximetry 99 98 Oxygen Delivery Method Room Air Room Air Sepsis Recent Fever Within 48 Hours No Sepsis New/Unexplained Change in Mental Status No Sepsis Action Taken by Nursing No Action Required 05/10/21 17:30 05/10/21 17:45 05/10/21 17:46 Temperature Temperature Source Pulse Rate 81 68 Pulse Rate [Apical] 78 Pulse Rate from SpO2 Sensor 75 Pulse Rhythm [Apical] Regular Respiratory Rate 12 21 18 Respiratory Effort / Characteristics Respiratory Depth Normal Blood Pressure 135/72 Blood Pressure [Left Arm] 135/72 Blood Pressure Mean 93 Blood Pressure Mean [Left Arm] 93 Blood Pressure Position [Left Arm] Lying Pulse Oximetry 100 100 Oxygen Delivery Method Room Air Sepsis Recent Fever Within 48 Hours Sepsis New/Unexplained Change in Mental Status Sepsis Action Taken by Nursing 05/10/21 18:00 Temperature Temperature Source Pulse Rate 66 Pulse Rate [Apical] Pulse Rate from SpO2 Sensor 65 Pulse Rhythm [Apical] Respiratory Rate 14 Respiratory Effort / Characteristics Respiratory Depth Blood Pressure Blood Pressure [Left Arm] Blood Pressure Mean Blood Pressure Mean [Left Arm] Blood Pressure Position [Left Arm] Pulse Oximetry 100 Oxygen Delivery Method Sepsis Recent Fever Within 48 Hours Sepsis New/Unexplained Change in Mental Status Sepsis Action Taken by Nursing Laboratory Data Result diagrams: 05/10/21 17:06 05/10/21 17:06 Lab Results 05/10/21 05/10/21 05/10/21 Range/Units 17:06 17:06 17:06 WBC 5.65 (4.8-10.8) K/uL RBC 1.90 L (4.7-6.1) M/uL Hgb 6.1 L* (14.0-18.0) g/dL Hct 18.9 L* (42-52) % MCV 99.5 (80-100) fL MCH 32.1 (25-34) pg MCHC 32.3 (32-36) g/dL RDW Std Deviation 53.2 H (36.4-46.3) fL RDW Coeff of Miguel 15.1 H (11.5-14.5) % Plt Count 94 L (130-400) K/uL MPV 9.7 (7.4-10.4) fL Platelet Estimate Decreased L (Normal) PT 12.8 H (9.0-12.0) Seconds INR 1.2 H (0.9-1.1) APTT 26.8 (21.0-31.0) Seconds PTT Ratio 1.0 Sodium (136-145) mmol/L Potassium (3.5-5.1) mmol/L Chloride (98-107) mmol/L Carbon Dioxide (21-32) mmol/L Anion Gap (3-11) BUN (6-23) mg/dl Creatinine (0.6-1.4) mg/dl Est Cr Clr Drug Dosing ml/min Est GFR ( Amer) ml/min Est GFR (Non-Af Amer) ml/min BUN/Creatinine Ratio (10-20) Glucose (70-99(Fasting)) mg/dl Calcium (8.5-10.1) mg/dl Total Bilirubin (0.2-1.0) mg/dl AST (13-39) U/L ALT (7-52) U/L Alkaline Phosphatase (34-104) U/L Total Protein (6.0-8.3) gm/dl Albumin (3.4-5.0) gm/dl Globulin (2.5-4.0) gm/dl Albumin/Globulin Ratio (0.9-2) Blood Type O Positive Antibody Screen NEGATIVE Crossmatch See Detail 05/10/21 Range/Units 17:06 WBC (4.8-10.8) K/uL RBC (4.7-6.1) M/uL Hgb (14.0-18.0) g/dL Hct (42-52) % MCV (80-100) fL MCH (25-34) pg MCHC (32-36) g/dL RDW Std Deviation (36.4-46.3) fL RDW Coeff of Miguel (11.5-14.5) % Plt Count (130-400) K/uL MPV (7.4-10.4) fL Platelet Estimate (Normal) PT (9.0-12.0) Seconds INR (0.9-1.1) APTT (21.0-31.0) Seconds PTT Ratio Sodium 140 (136-145) mmol/L Potassium 3.6 (3.5-5.1) mmol/L Chloride 108 H (98-107) mmol/L Carbon Dioxide 28 (21-32) mmol/L Anion Gap 4 (3-11) BUN 20 (6-23) mg/dl Creatinine 1.79 H (0.6-1.4) mg/dl Est Cr Clr Drug Dosing 53.9 ml/min Est GFR ( Amer) 44.5 ml/min Est GFR (Non-Af Amer) 38.4 ml/min BUN/Creatinine Ratio 11.2 (10-20) Glucose 118 H (70-99(Fasting)) mg/dl Calcium 8.1 L (8.5-10.1) mg/dl Total Bilirubin 1.4 H (0.2-1.0) mg/dl AST 26 (13-39) U/L ALT 11 (7-52) U/L Alkaline Phosphatase 104 (34-104) U/L Total Protein 5.9 L (6.0-8.3) gm/dl Albumin 2.5 L (3.4-5.0) gm/dl Globulin 3.4 (2.5-4.0) gm/dl Albumin/Globulin Ratio 0.7 L (0.9-2) Blood Type Antibody Screen Crossmatch Administered Medications Discontinued Medications Famotidine (Pepcid 20mg Iv Push) 20 mg in 5 mls @ 2.5 mls/min IV NOW STA Stop: 05/10/21 18:36 Last Admin: 05/10/21 18:49 Dose: 2.5 mls/min Documented by: [id number] Imaging Data Radiologist's Impression: Abdomen/Pelvis CT 05/10/21 17:[address] WITHOUT CONTRAST CT DOSE: 1586.68 mGy.cm HISTORY: Acute abdominal pain with reported nausea and anemia mid abd pain, anemia, hgb 6.5 TECHNIQUE: Multiaxial CT images of the abdomen and pelvis were performed without contrast. A dose lowering technique was utilized adhering to the principles of ALARA. COMPARISON STUDY: CT abdomen and pelvis 01/12/2019 FINDINGS: The heart is upper limits of normal in size. Decreased attenuation of the cardiac blood pool compatible with anemia. Clear lung bases. No pneumatosis or pneumoperitoneum. Spleen measures up to 14 cm in length. Mild generalized pancreatic atrophy. Unremarkable adrenal glands. Cholecystectomy. Cirrhotic liver. No hepatic mass identified. There are least 4 nonobstructing calculi of the left kidney measuring up to 4 mm. 4 mm nonobstructing calculus of the superior pole right kidney. 1.3 cm cyst of the superior pole right kidney. No ureteral calculi or hydronephrosis. Circumferential urinary bladder wall thickening with partial distention. Unremarkable prostate. Atherosclerosis of the aorta without aneurysm. No adenopathy. Small volume of abdominal pelvic ascites with abdominal varices. No bowel obstruction or bowel wall thickening. There is diffuse wall thickening of the stomach which is likely secondary to partial distention. Curvilinear 2.6 cm metallic radiodensity structure is noted within the cecum. Reported appendectomy. Generalized body wall edema. Degenerative changes of the spine, pelvis and hips. IMPRESSION: 1. No bowel obstruction or bowel wall thickening. 2. Cirrhosis with stigmata of portal venous hypertension including splenomegaly with small volume of abdominal pelvic ascites. 3. Nonobstructing bilateral nephrolithiasis. No ureteral calculi or hydronephrosis. 4. Gastric wall thickening is likely secondary to partial distention. A nonspecific gastritis could appear similarly. 5. Additional findings as above. ACT 112: Negative or not required by law. The above report was generated using voice recognition software. It may contain grammatical, syntax or spelling errors. Electronically signed by: Alan Espino M.D. 05/10/2021 6:06 PM Discharge Plan Visit Data Chief Complaint: Abnormal Labs/Diagnostic Testing Stated Complaint: BLOOD COUNT LOW, DOC REF ED Provider: Bao Evans Discharge Problem: Symptomatic anemia, Gastritis, Ascites, Edema of both lower legs Forms Stand Alone Forms: [facility] Prescriptions Prescriptions: No Action metoprolol succinate 25 mg tablet extended release 24 hr 25 mg PO QAM Qty: 90 RF: 3 potassium chloride 20 mEq tablet extended release 40 meq PO BID Qty: 360 RF: 2 furosemide 20 mg tablet 40 mg PO BID Qty: 360 RF: 2 chlorhexidine gluconate [Peridex] 0.12 % mouthwash 15 ml buccal BID Qty: 473 RF: 2 Humira(CF) Pen 40 mg/0.4 mL pen injector kit 40 mg subcut Q14D Qty: 2 RF: 2 omeprazole 20 mg tablet,disintegrat, delay rel 20 mg PO BID Qty: 180 RF: 2 potassium, sodium phosphates [Phos-NaK] 280-160-250 mg powder in packet 1 packet PO QAM RF: 0 cholecalciferol (vitamin D3) 50 mcg (2,000 unit) capsule 50 mcg PO QAM RF: 0 dexamethasone 0.5 mg/5 mL elixir 10 ml PO DIRECTED RF: 0 betamethasone dipropionate 0.05 % ointment 1 applic topical DIRECTED RF: 0 Referrals Referrals: Fiorella Castellano DO [Primary Care Provider] -
--- NOTE | 2021-05-10 19:31 | History & Physical Report ---
Date of Service May 10, 2021 Assessment & Plan (1) Symptomatic anemia: (2) Edema of both lower legs: (3) Ascites: (4) Fatty liver: (5) Hypertension: (6) GERD (gastroesophageal reflux disease): (7) CKD (chronic kidney disease), stage III: (8) 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: Plan: Sebastian Quiñonez is a 66-year-old male with past medical history of CKD 3, nonalcoholic fatty liver disease, hypertension, hypothyroidism, GERD with gastritis, squamous cell carcinoma of skin, psoriatic arthritis, spinal stenosis who presented due to abnormal hemoglobin on outpatient labs. Found to be anemic to 6.1, requiring transfusion in the setting of likely GI bleed. Symptomatic anemia - likely GI bleed in the setting of GERD with gastritis Admit to telemetry Received Protonix and famotidine boluses in ED and started on Protonix drip Continue Protonix drip N.p.o., NSS at 125cc/h for 2 bags Bleed more likely related to uncontrolled GERD/reflux possibly causing an ulcer, less likely bleeding esophageal varices in the setting of cirrhotic liver due to SERRANO Received 1 unit PRBCs in ED, additional unit ordered on admission H&H 4 hours after transfusion Continue to monitor Consult gastroenterology GERD Per patient, seem to be uncontrolled since fall 2020, when he had been on oral steroids Protonix drip as above in the setting of likely GI bleed 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 CT abdomen/pelvis showing gastric wall thickening likely secondary to partial distention, a nonspecific gastritis could appear similarly. Also noted to have cirrhosis with stigmata of portal venous hypertension including splenomegaly with small volume of abdominal pelvic ascites. As above, suspect more likely GI bleed from uncontrolled reflux, less likely bleeding varices at this time GI consulted Monitor CMP Pancytopenia Patient follows with Dr. Scales Pancytopenia thought to be secondary to liver disease Continue to monitor CBC Most recent hemoglobin measurements had been around 11 more likely that he has acute GI bleed at this time Platelet count typically fluctuates between 70s to 80s, actually currently higher than what seems to be his baseline Monitor CBC Chronic kidney disease stage III Follows with [facility] Creatinine 1.79 in ED baseline 1.4-2.0 Continue KCl 40 mEq twice daily in the setting of loop diuretic use Continue Phos NaK due to chronic hypophosphatemia Avoid nephrotoxins Monitor CMP, Phos level Hypertension Well controlled per chart review Takes furosemide twice daily and metoprolol Somewhat hypotensive currently, will hold meds at this time Wide-complex tachycardia Had episode of wide-complex tachycardia during stress testing in November 2020 Patient did have some symptoms of palpitations at times Per swatch paster, possible that he may have RVOT tachycardia He was started on metoprolol at that time Monitor on telemetry, if developing tachycardia can restart metoprolol DVT prophylaxis: SCDs, chemoprophylaxis contraindicated in the setting of acute symptomatic anemia FEN: N.p.o., NSS at 125 cc/h for 2 bags Dispo: Admit to telemetry CODE STATUS: Full History of Present Illness Primary Care Provider: DO Sebastian Schneider Khang is a 66-year-old male with past medical history of CKD 3, nonalcoholic fatty liver disease, hypertension, hypothyroidism, GERD with gastritis, squamous cell carcinoma of skin, psoriatic arthritis, spinal stenosis who presented due to abnormal hemoglobin on outpatient labs. Patient does follow with heme-onc due to pancytopenia attributable to chronic liver disease. Today, patient reports some epigastric and mid abdominal pain. He does say he has felt dizzy as of late, about 2 to 3 weeks. Also reported an episode of dark stool about a month ago. He mentions that he has had a cough, which he feels comes about due to esophageal irritation in the setting of reflux since about fall 2020. He says at that time he was on an oral steroid treatment for a lesion on the skin of his left arm. Ever since then he felt that his stomach and esophagus have been very irritated from reflux. Currently denies chest pain, palpitations, shortness of breath, nausea, vomiting, weakness, numbness, neuro deficits, confusion, headache, fever, chills. In ED, patient had CT abdomen/pelvis showing gastric wall thickening likely secondary to partial distention, a nonspecific gastritis could appear similarly. Also noted to have cirrhosis with stigmata of portal venous hypertension including splenomegaly with small volume of abdominal pelvic ascites. Labs showing anemia with hemoglobin of 6.1, white count 5.65, thrombocytopenia with platelet at 94. Creatinine of 1.79. T bili 1.4, AST 26, ALT 11, alk phos 104. Total protein 5.9, albumin 2.5. Due to significant anemia, patient was consented for transfusion in the ED and received transfusion with 1 unit PRBC. He also received pantoprazole 80 mg bolus, followed by pantoprazole drip. Allergies Allergy/AdvReac Type Severity Reaction Status Date / Time tamsulosin Allergy Intermediate HIVES Verified 05/11/21 10:12 etanercept [From Enbrel] AdvReac Unknown Increased Verified 05/11/21 10:12 infections Home Medications Medication Instructions Recorded Confirmed Type furosemide 20 mg tablet 40 mg PO BID #360 tab 06/23/20 05/10/21 Rx chlorhexidine gluconate 0.12 % 15 ml BUCCAL BID #473 ml 09/28/20 05/10/21 Rx mouthwash (Peridex) potassium chloride 20 mEq 40 meq PO BID #360 tab 11/10/20 05/10/21 Rx tablet,extended release omeprazole 20 mg delayed 20 mg PO BID #180 tab 02/09/21 05/10/21 Rx release,disintegrating tablet cholecalciferol (vitamin D3) 50 50 mcg PO QAM 02/22/21 05/10/21 History mcg (2,000 unit) capsule potassium, sodium phosphates 280 1 packet PO QAM 02/22/21 05/10/21 History mg-160 mg-250 mg oral powder packet (Phos-NaK) metoprolol succinate 25 mg 25 mg PO QAM #90 tab 03/23/21 05/10/21 Rx tablet,extended release 24 hr adalimumab 40 mg/0.4 mL 40 mg SUBCUT Q14D #2 ea 04/06/21 05/10/21 Rx subcutaneous pen kit (Humira(CF) Pen) betamethasone dipropionate 0.05 % 1 applic TOPICAL DIRECTED 05/10/21 05/10/21 History topical ointment dexamethasone 0.5 mg/5 mL oral 10 ml PO DIRECTED 05/10/21 05/10/21 History elixir Past Med/Surg History Medical History (Updated 05/11/21 @ 21:19 by Lamine Davis) CKD (chronic kidney disease), stage III F/U [facility], last visit 02/09/2021 Gastritis GAVE (gastric antral vascular ectasia) Per records GERD (gastroesophageal reflux disease) Well controlled and stable History of SCC (squamous cell carcinoma) of skin S/p removal- follows with derm Hypertension Hypothyroidism 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 LFTs stable Oral mucositis On mouthwash daily- no recent issues Pancytopenia F/U DR SCALES Psoriatic arthritis Follows with derm PSVT (paroxysmal supraventricular tachycardia) PVT (portal vein thrombosis) denies Spinal stenosis EPIDURAL INJECTIONS IN PAST FOR PAIN RELIEF Symptomatic anemia TMJ arthralgia Urinary retention Wide-complex tachycardia ON METOPROLOL-F/U DR VANESSA Surgical History H/O foot surgery excision of neuroma b/l feet History of appendectomy History of arthroscopy RT KNEE History of cataract surgery RT/LEFT History of cholecystectomy History of esophagogastroduodenoscopy (EGD) History of herniorrhaphy right inguinal History of lithotripsy History of liver biopsy History of repair of rotator cuff RT/LEFT History of tooth extraction History of urologic surgery Urethral reconstruction 4 [place] at [facility] [place] [facility] [place] Nausea and vomiting after administration of anesthetic agent S/P epidural steroid injection S/P orchiectomy Right age 9 for UDT S/P urological surgery (2018) BM[facility] urethroplasty-[facility] [place] Suprapubic catheter AND REMOVAL Family History Grandmother (Maternal) Diabetes Father Renal cancer Mother Aortic aneurysm Denies family history of Ovarian cancer Prostate cancer Myocardial infarction Breast cancer Colorectal cancer Social History Smoking Status: Never smoker Second Hand Exposure: No; Hx Alcohol Use: No Hx Substance Use: No Preferred Language: Bulgarian Communication Ability: Effective Visual Impairment: No Limitations Hearing Ability: Hard of Hearing Fire Hydrant Mechanic Required: No Beliefs That Will Affect Care: None marital status: / Current Living Situation: Family Current Living Situation Comment: SON LIVING WITH PT CURRENTLY current occupational status: retired How many Children do You have: 1 Other Information That Helps Us Care for You: No Feels Safe at Home: Yes Safety Concerns: Feels Safe At This Time caffeine: Yes during the past year weight has: increased > 10 lbs Dental Care, Regularly: No Physical Activity Frequency: Other Physical Activity Frequency Comment: currently can not excercise due to physical condition Seatbelt Use: never Sunscreen Use: No Assistive Devices: None Review of Systems Review of Systems: All systems reviewed & are unremarkable except as noted in HPI & below Physical Exam Physical Exam: GENERAL: A&Ox3. NAD. HEENT: PERRL, EOMI. Moist mucous membranes. NECK: No JVD. No lymphadenopathy. CHEST/LUNGS: CTAB A/P. No crackles, wheezes, rales, rhonchi. HEART: RRR. No m/g/r. No carotid bruits. ABDOMEN: Mild TTP in epigastric region, nondistended, soft. BS+ x4 EXTREMITIES: No cyanosis, no clubbing, no edema SKIN: Warm and dry. No rashes or lesions. PSYCHIATRIC: Euthymic affect, no SI, no pressured speech, no hallucinations NEUROLOGIC: No FND. CN II-XII grossly intact. Results & Data Results & Data ([facility]) Vital Signs (Past 12 Hours) Vital Signs Temp Pulse Pulse Resp BP BP Pulse Ox 05/10/21 18:00 66 14 100 05/10/21 17:46 78 18 135/72 100 05/10/21 17:45 68 21 135/72 100 05/10/21 17:30 81 12 05/10/21 17:22 80 14 05/10/21 17:00 75 16 98 05/10/21 15:53 36.7 C 91 H 18 134/78 99 Supervising Physician Co-Signing Physician Notes Attending addendum: I have physically seen this patient, have supervised the medical residents activities, and agree with the H&P unless as otherwise noted. Assessment and Plan: Symptomatic anemia/history of gastritis- Hemoglobin 6.1 upon admission To receive 2 units PRBCs with follow-up H&H Continue Protonix drip NSS at 125 mils per hour x2 L H&H every 4 hours Admit to monitored bed Consult gastroenterology 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/GERD/portal hypertension/splenomegaly- No suggestion of varices on imaging, and with no overt bleeding, would not place on octreotide drip Consult gastroenterology CKD stage III- Creatinine 1.79 admission, with range 1.58-1.80 Follow with serial laboratories Remaining orders and notations as noted Resident Activity Tracking Resident Involvement: Resident Care Provided Care Provided: Adult Hospital Medicine
[2021-05-10] MEDS: PANTOprazole 40 MG in DEXTROSE 5% 100 ML IV SCH (21:37)
[2021-05-10] MEDS: SODIUM CHLORIDE 0.9% 1000ML 1,000 ML IV SCH (23:45)
[2021-05-10] MEDS: CHLORHEXIDINE GLUCONATE 0.12% 480 ML MT SCH (23:46)
[2021-05-11] MEDS: PANTOprazole 40 MG in DEXTROSE 5% 100 ML IV SCH ×5 (01:40→20:48)
[2021-05-11] MEDS: SODIUM CHLORIDE 0.9% 1000ML 1,000 ML IV SCH (07:35)
[2021-05-11] MEDS: CHLORHEXIDINE GLUCONATE 0.12% 480 ML MT SCH ×2 (07:36→20:47)
[2021-05-11] MEDS: CHOLECALCIFEROL 1,000 UNITS 25 MCG TAB PO SCH ×2 (07:37→08:02)
[2021-05-11] MEDS: POT PHOSPHATE MONOBASIC W/ SOD TAB PO SCH ×2 (07:37→08:03)
[2021-05-11 08:08] LABS: Hematocrit (blood only) 21.3 % (42-52); Mean Corpuscular Hgb Conc 32.9 g/dL (32-36); Mean Corpuscular Volume 94.2 fL (80-100); Mean Platelet Volume 9.9 fL (7.4-10.4); Platelet Count 60 K/uL (130-400); RDW Coefficient of Variation 17.1 % (11.5-14.5); RDW Standard Deviation 58.5 fL (36.4-46.3); Red Blood Count 2.26 M/uL (4.7-6.1); White Blood Count 2.87 K/uL (4.8-10.8)
[2021-05-11 08:19] LABS: Basophils # (auto) 0.01 K/uL (0-0.2); Basophils % (auto) 0.3 %; Eosinophils # (auto) 0.18 K/uL (0-0.5); Eosinophils % (auto) 6.3 %; Lymphocytes # (auto) 0.86 K/uL (1.2-3.4); Monocytes % (auto) 13.9 %; Neutrophils # (auto) 1.42 K/uL (1.4-6.5); Neutrophils % (auto) 49.5 %; Polychromasia 1+
[2021-05-11 08:38] LABS: Albumin Globulin Ratio 0.8 (0.9-2); Albumin Level 2.1 gm/dl (3.4-5.0); BUN Creatinine Ratio 10.7 (10-20); Bilirubin,Total 2.1 mg/dl (0.2-1.0); Calcium 7.9 mg/dl (8.5-10.1); Creatinine Clr Calc Pharmacy 56.8 ml/min; Est GFR (Non-African American) 41.4 ml/min; Globulin 2.7 gm/dl (2.5-4.0); Magnesium 1.9 mg/dl (1.7-2.4); Potassium 3.7 mmol/L (3.5-5.1); Total Protein 4.8 gm/dl (6.0-8.3)
--- NOTE | 2021-05-11 09:07 | Gastrointestinal Consultation ---
Date of Consultation May 11, 2021 Assessment & Plan (1) Symptomatic anemia: 66 year old male with cirrhosis, admitted with symptomatic anemia who reports black stools x 2 weeks, resolved yesterday. Denies bright red blood, coffee ground emesis, hematemesis NPO Will discuss EGD with attending Continue IV PPI as ordered Trend HGB Transfuse as needed Monitor and document GI output Needs outpatient cirrhosis follow up Thank you for allowing us to participate in the care of this patient. Please call with any acute changes, questions or concerns. Please see addendum below with additional recommendation from my supervising physician. History of Present Illness Reason for Consultation: anemia Requesting Physician: Ryan Attending Physician: Lamine Davis History of Present Illness 66 year old male with cirrhosis, DCC, hypothyroidism, SVT others below admitted through the ED with anemia, hgb 6. GI asked to evaluate. Pt was seen, chart reviewed. He notes for the last 2-3 weeks he has been having dark, black stools. Suggests these spontaneously resolved abot 24 hours ago. Denies any BRBPR. He has had intermittent abd pain, generalized. Cramping. No nausea, vomiting. Denies previous hematemesis or coffee ground emesis. No fever, chills, CP, SOB. Denies ETOH No dedicated cirrhosis care in over 2 years CTAP 2021: . No bowel obstruction or bowel wall thickening. 2. Cirrhosis with stigmata of portal venous hypertension including splenomegaly with small volume of abdominal pelvic ascites. 3. Nonobstructing bilateral nephrolithiasis. No ureteral calculi or hydronephrosis. 4. Gastric wall thickening is likely secondary to partial distention. A nonspecific gastritis could appear similarly. 5. Additional findings as above. EGD 2019: Normal esophagus. - Gastritis. - Normal examined duodenum. - No specimens collected EGD 2018: gastritis Colonoscopy 2018: angiectasias, diverticula Allergies Allergy/AdvReac Type Severity Reaction Status Date / Time tamsulosin Allergy Intermediate HIVES Verified 05/10/21 17:07 etanercept [From Enbrel] AdvReac Unknown Increased Verified 05/10/21 17:07 infections Home Medications Medication Instructions Recorded Confirmed Type furosemide 20 mg tablet 40 mg PO BID #360 tab 06/23/20 05/10/21 Rx chlorhexidine gluconate 0.12 % 15 ml BUCCAL BID #473 ml 09/28/20 05/10/21 Rx mouthwash (Peridex) potassium chloride 20 mEq 40 meq PO BID #360 tab 11/10/20 05/10/21 Rx tablet,extended release omeprazole 20 mg delayed 20 mg PO BID #180 tab 02/09/21 05/10/21 Rx release,disintegrating tablet cholecalciferol (vitamin D3) 50 50 mcg PO QAM 02/22/21 05/10/21 History mcg (2,000 unit) capsule potassium, sodium phosphates 280 1 packet PO QAM 02/22/21 05/10/21 History mg-160 mg-250 mg oral powder packet (Phos-NaK) metoprolol succinate 25 mg 25 mg PO QAM #90 tab 03/23/21 05/10/21 Rx tablet,extended release 24 hr adalimumab 40 mg/0.4 mL 40 mg SUBCUT Q14D #2 ea 04/06/21 05/10/21 Rx subcutaneous pen kit (Humira(CF) Pen) betamethasone dipropionate 0.05 % 1 applic TOPICAL DIRECTED 05/10/21 05/10/21 History topical ointment dexamethasone 0.5 mg/5 mL oral 10 ml PO DIRECTED 05/10/21 05/10/21 History elixir Patient History Medical History CKD (chronic kidney disease), stage III GAVE (gastric antral vascular ectasia) GERD (gastroesophageal reflux disease) History of SCC (squamous cell carcinoma) of skin Hypertension Hypothyroidism 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 Oral mucositis Pancytopenia Psoriatic arthritis Spinal stenosis Urinary retention Wide-complex tachycardia Surgical History H/O foot surgery History of appendectomy History of arthroscopy History of cataract surgery History of cholecystectomy History of esophagogastroduodenoscopy (EGD) History of herniorrhaphy History of lithotripsy History of liver biopsy History of repair of rotator cuff History of tooth extraction History of urologic surgery Nausea and vomiting after administration of anesthetic agent S/P epidural steroid injection S/P orchiectomy S/P urological surgery (2018) Suprapubic catheter Family History Grandmother (Maternal) Diabetes Father Renal cancer Mother Aortic aneurysm Denies family history of Ovarian cancer Prostate cancer Myocardial infarction Breast cancer Colorectal cancer Social History Smoking Status: Never smoker Second Hand Exposure: No; Hx Alcohol Use: No Hx Substance Use: No Preferred Language: Japanese Communication Ability: Effective Visual Impairment: No Limitations Hearing Ability: Hard of Hearing Commercial Parts 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 Required: No Beliefs That Will Affect Care: None marital status: ( PASSED 02/01/2021 FROM COMPLICATIONS OF COVID) Current Living Situation: Family Current Living Situation Comment: SON LIVING WITH PT CURRENTLY current occupational status: retired How many Children do You have: 2 Other Information That Helps Us Care for You: No Feels Safe at Home: Yes Safety Concerns: Feels Safe At This Time caffeine: Yes during the past year weight has: increased > 10 lbs Dental Care, Regularly: No Physical Activity Frequency: Other Physical Activity Frequency Comment: currently can not excercise due to physical condition Seatbelt Use: never Sunscreen Use: No Assistive Devices: Denture - Upper, Denture - Lower and Glasses Review of Systems Review of Systems: All systems reviewed & are unremarkable except as noted in HPI & below Physical Exam Constitutional: WD/WN, vitals as above Eyes: PERRL, conjunctivae normal, anicteric sclerae Neck: normal visual inspection and trachea midline; no tracheal deviation Respiratory: normal respiratory effort, lungs clear to auscultation Cardiovascular: Rate/Rhythm: regular rate and regular rhythm Gastrointestinal (Abdomen): normal bowel sounds, soft, nontender, no hepatosplenomegaly Skin: no rashes, warm and dry Results & Data ([facility]) Vital Signs (Past 12 Hours) Vital Signs Temp Pulse Pulse Resp BP BP Pulse Ox 05/11/21 07:53 36.5 C 74 16 124/56 L 100 05/11/21 06:08 36.6 C 60 17 109/55 L 100 05/11/21 05:45 36.6 C 76 17 110/59 L 100 05/11/21 04:45 36.6 C 66 15 103/53 L 96 05/11/21 03:45 36.6 C 82 19 125/53 L 100 05/11/21 03:15 36.6 C 64 13 113/57 L 100 05/11/21 03:10 69 05/11/21 03:00 36.6 C 68 16 97/68 L 100 05/11/21 02:45 36.7 C 74 16 115/57 L 98 05/11/21 02:39 36.7 C 74 16 115/57 L 98 05/11/21 00:00 36.6 C 78 13 108/58 L 99 05/10/21 23:25 36.6 C 63 10 L 111/59 L 99 05/10/21 23:00 36.6 C 76 12 109/43 L 98 05/10/21 22:00 36.8 C 80 20 119/68 100 Laboratory Results 05/11/21 05/11/21 05/10/21 Range/Units 07:22 07:22 18:54 WBC 2.87 L (4.8-10.8) K/uL RBC 2.26 L (4.7-6.1) M/uL Hgb 7.0 L (14.0-18.0) g/dL Hct 21.3 L (42-52) % MCV 94.2 D (80-100) fL MCH 31.0 (25-34) pg MCHC 32.9 (32-36) g/dL RDW Std Deviation 58.5 H (36.4-46.3) fL RDW Coeff of Miguel 17.1 H (11.5-14.5) % Plt Count 60 L (130-400) K/uL MPV 9.9 (7.4-10.4) fL Immature Gran % (Auto) 0.0 % Neut % (Auto) 49.5 % Lymph % (Auto) 30.0 % Letcher % (Auto) 13.9 % Eos % (Auto) 6.3 % Baso % (Auto) 0.3 % Neut # (Auto) 1.42 (1.4-6.5) K/uL Lymph # (Auto) 0.86 L (1.2-3.4) K/uL Letcher # (Auto) 0.40 (0.11-0.59) K/uL Eos # (Auto) 0.18 (0-0.5) K/uL Baso # (Auto) 0.01 (0-0.2) K/uL Immature Gran # (Auto) 0.00 (0.00-0.02) K/uL Platelet Estimate (Normal) Polychromasia 1+ PT (9.0-12.0) Seconds INR (0.9-1.1) APTT (21.0-31.0) Seconds PTT Ratio Sodium 141 (136-145) mmol/L Potassium 3.7 (3.5-5.1) mmol/L Chloride 110 H (98-107) mmol/L Carbon Dioxide 28 (21-32) mmol/L Anion Gap 3 (3-11) BUN 18 (6-23) mg/dl Creatinine 1.68 H (0.6-1.4) mg/dl Est Cr Clr Drug Dosing 56.8 ml/min Est GFR ( Amer) 48.0 ml/min Est GFR (Non-Af Amer) 41.4 ml/min BUN/Creatinine Ratio 10.7 (10-20) Glucose 104 H (70-99(Fasting)) mg/dl Calcium 7.9 L (8.5-10.1) mg/dl Phosphorus 3.0 (2.5-4.9) mg/dl Magnesium 1.9 (1.7-2.4) mg/dl Total Bilirubin 2.1 H (0.2-1.0) mg/dl AST 22 (13-39) U/L ALT 9 (7-52) U/L Alkaline Phosphatase 79 (34-104) U/L Total Protein 4.8 L D (6.0-8.3) gm/dl Albumin 2.1 L (3.4-5.0) gm/dl Globulin 2.7 (2.5-4.0) gm/dl Albumin/Globulin Ratio 0.8 L (0.9-2) SARS-CoV-2, RNA, NAAT NEGATIVE (NEGATIVE) Blood Type Antibody Screen Crossmatch 05/10/21 05/10/21 05/10/21 Range/Units 17:06 17:06 17:06 WBC 5.65 (4.8-10.8) K/uL RBC 1.90 L (4.7-6.1) M/uL Hgb 6.1 L* (14.0-18.0) g/dL Hct 18.9 L* (42-52) % MCV 99.5 (80-100) fL MCH 32.1 (25-34) pg MCHC 32.3 (32-36) g/dL RDW Std Deviation 53.2 H (36.4-46.3) fL RDW Coeff of Miguel 15.1 H (11.5-14.5) % Plt Count 94 L (130-400) K/uL MPV 9.7 (7.4-10.4) fL Immature Gran % (Auto) % Neut % (Auto) % Lymph % (Auto) % Letcher % (Auto) % Eos % (Auto) % Baso % (Auto) % Neut # (Auto) (1.4-6.5) K/uL Lymph # (Auto) (1.2-3.4) K/uL Letcher # (Auto) (0.11-0.59) K/uL Eos # (Auto) (0-0.5) K/uL Baso # (Auto) (0-0.2) K/uL Immature Gran # (Auto) (0.00-0.02) K/uL Platelet Estimate Decreased L (Normal) Polychromasia PT 12.8 H (9.0-12.0) Seconds INR 1.2 H (0.9-1.1) APTT 26.8 (21.0-31.0) Seconds PTT Ratio 1.0 Sodium 140 (136-145) mmol/L Potassium 3.6 (3.5-5.1) mmol/L Chloride 108 H (98-107) mmol/L Carbon Dioxide 28 (21-32) mmol/L Anion Gap 4 (3-11) BUN 20 (6-23) mg/dl Creatinine 1.79 H (0.6-1.4) mg/dl Est Cr Clr Drug Dosing 53.9 ml/min Est GFR ( Amer) 44.5 ml/min Est GFR (Non-Af Amer) 38.4 ml/min BUN/Creatinine Ratio 11.2 (10-20) Glucose 118 H (70-99(Fasting)) mg/dl Calcium 8.1 L (8.5-10.1) mg/dl Phosphorus (2.5-4.9) mg/dl Magnesium (1.7-2.4) mg/dl Total Bilirubin 1.4 H (0.2-1.0) mg/dl AST 26 (13-39) U/L ALT 11 (7-52) U/L Alkaline Phosphatase 104 (34-104) U/L Total Protein 5.9 L (6.0-8.3) gm/dl Albumin 2.5 L (3.4-5.0) gm/dl Globulin 3.4 (2.5-4.0) gm/dl Albumin/Globulin Ratio 0.7 L (0.9-2) SARS-CoV-2, RNA, NAAT (NEGATIVE) Blood Type Antibody Screen Crossmatch 05/10/21 Range/Units 17:06 WBC (4.8-10.8) K/uL RBC (4.7-6.1) M/uL Hgb (14.0-18.0) g/dL Hct (42-52) % MCV (80-100) fL MCH (25-34) pg MCHC (32-36) g/dL RDW Std Deviation (36.4-46.3) fL RDW Coeff of Miguel (11.5-14.5) % Plt Count (130-400) K/uL MPV (7.4-10.4) fL Immature Gran % (Auto) % Neut % (Auto) % Lymph % (Auto) % Letcher % (Auto) % Eos % (Auto) % Baso % (Auto) % Neut # (Auto) (1.4-6.5) K/uL Lymph # (Auto) (1.2-3.4) K/uL Letcher # (Auto) (0.11-0.59) K/uL Eos # (Auto) (0-0.5) K/uL Baso # (Auto) (0-0.2) K/uL Immature Gran # (Auto) (0.00-0.02) K/uL Platelet Estimate (Normal) Polychromasia PT (9.0-12.0) Seconds INR (0.9-1.1) APTT (21.0-31.0) Seconds PTT Ratio Sodium (136-145) mmol/L Potassium (3.5-5.1) mmol/L Chloride (98-107) mmol/L Carbon Dioxide (21-32) mmol/L Anion Gap (3-11) BUN (6-23) mg/dl Creatinine (0.6-1.4) mg/dl Est Cr Clr Drug Dosing ml/min Est GFR ( Amer) ml/min Est GFR (Non-Af Amer) ml/min BUN/Creatinine Ratio (10-20) Glucose (70-99(Fasting)) mg/dl Calcium (8.5-10.1) mg/dl Phosphorus (2.5-4.9) mg/dl Magnesium (1.7-2.4) mg/dl Total Bilirubin (0.2-1.0) mg/dl AST (13-39) U/L ALT (7-52) U/L Alkaline Phosphatase (34-104) U/L Total Protein (6.0-8.3) gm/dl Albumin (3.4-5.0) gm/dl Globulin (2.5-4.0) gm/dl Albumin/Globulin Ratio (0.9-2) SARS-CoV-2, RNA, NAAT (NEGATIVE) Blood Type O Positive Antibody Screen NEGATIVE Crossmatch See Detail
--- NOTE | 2021-05-11 10:12 | History & Physical Bridge Note ---
Date of Service May 11, 2021 History & Physical Bridge Note I have examined the patient, reviewed the History & Physical and in the interval since the performance of the History & Physical I have noted the following changes of clinical significance: no changes noted
--- NOTE | 2021-05-11 10:19 | Anesthesiology Consultation ---
Date of Service May 11, 2021 Assessment & Plan (1) Encounter for pre-operative examination: History Surgery Operation Date: 05/11/21 16:30 Proposed Procedures p Esophagogastroduodenoscopy Dr. Jim Fernandez MD Height/Weight Height: 5 ft 9 in Weight: 129.274 kg Allergies Allergy/AdvReac Type Severity Reaction Status Date / Time tamsulosin Allergy Intermediate HIVES Verified 05/11/21 10:12 etanercept [From Enbrel] AdvReac Unknown Increased Verified 05/11/21 10:12 infections Medications Home Medications Medication Instructions Recorded Confirmed Last Taken furosemide 20 mg tablet 40 mg PO BID #360 tab 06/23/20 05/10/21 05/10/21 08:00 chlorhexidine gluconate 0.12 % 15 ml BUCCAL BID #473 ml 09/28/20 05/10/21 05/10/21 08:00 mouthwash (Peridex) potassium chloride 20 mEq 40 meq PO BID #360 tab 11/10/20 05/10/21 05/10/21 08:00 tablet,extended release omeprazole 20 mg delayed 20 mg PO BID #180 tab 02/09/21 05/10/21 05/10/21 release,disintegrating tablet cholecalciferol (vitamin D3) 50 50 mcg PO QAM 02/22/21 05/10/21 05/10/21 mcg (2,000 unit) capsule potassium, sodium phosphates 280 1 packet PO QAM 02/22/21 05/10/21 05/10/21 mg-160 mg-250 mg oral powder packet (Phos-NaK) metoprolol succinate 25 mg 25 mg PO QAM #90 tab 03/23/21 05/10/21 05/10/21 tablet,extended release 24 hr adalimumab 40 mg/0.4 mL 40 mg SUBCUT Q14D #2 ea 04/06/21 05/10/21 05/03/21 subcutaneous pen kit (Humira(CF) Pen) betamethasone dipropionate 0.05 % 1 applic TOPICAL DIRECTED 05/10/21 05/10/21 Unknown topical ointment dexamethasone 0.5 mg/5 mL oral 10 ml PO DIRECTED 05/10/21 05/10/21 Unknown elixir Active Medications Generic Name Dose Route Start Last Admin Trade Name Freq PRN Reason Stop Dose Admin Chlorhexidine Gluconate 15 ml 05/10/21 22:39 05/11/21 07:36 Chlorhexidine Gluconate 0.12% 480 Ml MT 06/09/21 22:38 Not Given BID LUZ Pantoprazole Sodium 40 mg/ 100 mls @ 20 mls/hr 05/10/21 19:00 05/11/21 07:35 Dextrose IV 06/09/21 18:59 8 mg/hr Q5H LUZ 20 mls/hr Administration 8 MG/HR Sodium Chloride 1,000 mls @ 125 mls/hr 05/10/21 22:39 05/11/21 07:35 Nss 1000ml IV 05/11/21 14:38 125 mls/hr .Q8H LUZ Administration Potassium Phosphate 1 tab 05/11/21 09:00 05/11/21 08:03 Pot Phosphate Monobasic W/ Sod Tab PO 06/10/21 08:59 Not Given QAM LUZ Vitamin D 2,000 units 05/11/21 09:00 05/11/21 08:02 Cholecalciferol 1,000 Units 25 Mcg Tab PO 06/10/21 08:59 Not Given QAM LUZ Past Medical History Medical History (Updated 05/11/21 @ 10:19 by Pat Patricio MD) CKD (chronic kidney disease), stage III F/U [facility] nephrology, last visit 02/09/2021 Gastritis GAVE (gastric antral vascular ectasia) Per records GERD (gastroesophageal reflux disease) Well controlled and stable History of SCC (squamous cell carcinoma) of skin S/p removal- follows with derm Hypertension Hypothyroidism 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 LFTs stable Oral mucositis On mouthwash daily- no recent issues Pancytopenia F/U DR LIMON Psoriatic arthritis Follows with derm PSVT (paroxysmal supraventricular tachycardia) PVT (portal vein thrombosis) denies Spinal stenosis EPIDURAL INJECTIONS IN PAST FOR PAIN RELIEF Symptomatic anemia TMJ arthralgia Urinary retention Wide-complex tachycardia ON METOPROLOL-F/U DR VANESSA Past Family History Family History Grandmother (Maternal) Diabetes Father Renal cancer Mother Aortic aneurysm Denies family history of Ovarian cancer Prostate cancer Myocardial infarction Breast cancer Colorectal cancer Past Surgical History Surgical History H/O foot surgery excision of neuroma b/l feet History of appendectomy History of arthroscopy RT KNEE History of cataract surgery RT/LEFT History of cholecystectomy History of esophagogastroduodenoscopy (EGD) History of herniorrhaphy right inguinal History of lithotripsy History of liver biopsy History of repair of rotator cuff RT/LEFT History of tooth extraction History of urologic surgery [place] [facility] [place]a and vomiting after administration of anesthetic agent S/P epidural steroid injection S/P orchiectomy Right age 9 for UDT S/P urological surgery (2018) BMG urethro[place] [place] Suprapubic catheter AND REMOVAL Social History Smoking Status: Never smoker Hx Alcohol Use: No Hx Substance Use: No substance use type: does not use Physical Exam Vital Signs Last Vital Signs Temp 36.5 C 05/11/21 07:53 Pulse 74 05/11/21 10:12 Resp 20 05/11/21 10:12 BP 118/54 L 05/11/21 10:12 Pulse Ox 100 05/11/21 10:12 Testing Laboratory Results 05/11/21 07:22 05/11/21 07:22 PT 12.8 Seconds (9.0-12.0) H 05/10/21 17:06 INR 1.2 (0.9-1.1) H 05/10/21 17:06 APTT 26.8 Seconds (21.0-31.0) 05/10/21 17:06 Blood Type O Positive 05/10/21 17:06 Antibody Screen NEGATIVE 05/10/21 17:06
[2021-05-11] MEDS ORDERED: SODIUM CHLORIDE 0.9% 250 ML IV PRN ×2 (10:24→12:16)
[2021-05-11] MEDS ORDERED: PROPOFOL IV EMULSION 10 MG/ML 20 ML VIAL IV ONE (10:49)
[2021-05-11] MEDS ORDERED: LIDOCAINE 2% 2 ML VIAL/AMP(20MG/ML) INFIL ONE (10:49)
--- NOTE | 2021-05-11 11:09 | GI REPORT ---
Patient Name: Sebastian Quiñonez Procedure Date: 05/11/2021 10:50 AM Date of : 1955 Admit Type: Inpatient Age: 66 Gender: Male Attending MD: Harriet Fernandez M.d. Procedure: Upper GI endoscopy Providers: Harriet Fernandez M.d. Referring MD: Lamine Davis M.d. Indications: Iron deficiency anemia Medicines: See anesthesia record Complications: No immediate complications. Estimated Blood Loss: Estimated blood loss: none. Procedure: Pre-Anesthesia Assessment: - Patient identification and proposed procedure were verified prior to the procedure by the physician, the nurse and the anesthesiologist. The procedure was verified in the pre-procedure area. - Prior to the procedure, a History and Physical was performed, and patient medications, allergies and sensitivities were reviewed. The patient's tolerance of previous anesthesia was reviewed. - The risks and benefits of the procedure and the sedation options and risks were discussed with the patient. All questions were answered and informed consent was obtained. After obtaining informed consent, the endoscope was passed under direct vision. Throughout the procedure, the patient's blood pressure, pulse, and oxygen saturations were monitored continuously. The Endoscope was introduced through the mouth, and advanced to the second part of duodenum. The upper GI endoscopy was accomplished without difficulty. The patient tolerated the procedure well. Findings: The examined esophagus appeared normal without evidence of esophgeal varices. The Z-line regular. The examined stomach appeared normal without evidence of gastric varices. Mild portal hypertensive gastropathy was found in the gastric body. Severe portal hypertensive gastropathy was found in the gastric antrum with one small area that appeared to be oozing. For hemostasis, one hemostatic clip was successfully placed (MR conditional). There was no bleeding at the end of the procedure. The duodenal bulb and second portion of the duodenum appeared normal. Impression: - Normal esophagus. - Z-line regular. - Mild proximal body portal hypertensive gastropathy - Severe antral portal hypertensive gastropathy. One clip (MR conditional) was placed on an oozing area within the area noted to have severe antral portal hypertensive gastropathy. - Normal duodenal bulb and second portion of the duodenum. Recommendation: - Return to the floor. - Suspect anemia is from portal hypertensive gastropathy. - Given cirrhosis- baseline hgb should be between 7-8. - Would give an IV PPI for 24 hours and octreotide for 24 hours to help reduce portal pressure. - Thereafter, he should be on a daily beta chinedu or coreg to help reduce portal htn pressures. Harriet Fernandez M.D. Harriet Fernandez M.d. 05/11/2021 11:09:15 AM This report has been signed electronically. Note Initiated On: 05/11/2021 10:50 AM Number of Addenda: 0 I attest to the content of the Intraoperative Record and orders documented therein, exceptions below {[id number]}
--- NOTE | 2021-05-11 11:10 | Communication Note ---
Date of Service: May 11, 2021 EGD complete. No evidence of esophageal varices. He does have severe portal hypertensive gastropathy with oozing, clipped. Continue IV PPI for 24 hours IV Octreotide bolus, drip for 24 hours Can start PO PPI tomorrow Needs to re-establish as OP with GI for liver related care and consideration of beta chinedu GI to sign off. Recall as needed. Thank you for allowing us to participate in the care of this patient. Please call with any acute changes, questions or concerns.
[2021-05-11] MEDS ORDERED: OCTREOTIDE ACETATE 100 MCG in SYRINGE 9 ML IV STA (11:14)
[2021-05-11] MEDS: OCTREOTIDE ACETATE 500 MCG in DEXTROSE 5% 100 ML IV SCH ×2 (11:51→20:47)
--- NOTE | 2021-05-11 12:39 | Anesthesiology Progress Note ---
Date of Service May 11, 2021 Anesthesia Post Procedure Vital Signs Vital Signs: Temp Pulse Pulse Resp BP BP Pulse Ox 05/11/21 11:39 78 18 128/65 99 05/11/21 11:24 67 18 101/41 L 100 05/11/21 11:09 74 16 98/48 L 97 05/11/21 10:12 74 20 118/54 L 100 05/11/21 08:00 64 05/11/21 07:53 36.5 C 74 16 124/56 L 100 05/11/21 06:08 36.6 C 60 17 109/55 L 100 05/11/21 05:45 36.6 C 76 17 110/59 L 100 05/11/21 04:45 36.6 C 66 15 103/53 L 96 05/11/21 03:45 36.6 C 82 19 125/53 L 100 05/11/21 03:15 36.6 C 64 13 113/57 L 100 05/11/21 03:10 69 05/11/21 03:00 36.6 C 68 16 97/68 L 100 05/11/21 02:45 36.7 C 74 16 115/57 L 98 05/11/21 02:39 36.7 C 74 16 115/57 L 98 05/11/21 00:00 36.6 C 78 13 108/58 L 99 05/10/21 23:25 36.6 C 63 10 L 111/59 L 99 05/10/21 23:00 36.6 C 76 12 109/43 L 98 05/10/21 22:00 36.8 C 80 20 119/68 100 05/10/21 20:50 36.4 C L 67 18 111/77 100 05/10/21 20:20 36.5 C 80 18 112/57 L 100 05/10/21 20:05 36.5 C 79 18 106/57 L 100 05/10/21 19:49 36.7 C 100 H 16 135/72 96 05/10/21 18:00 66 14 100 05/10/21 17:46 78 18 135/72 100 05/10/21 17:45 68 21 135/72 100 05/10/21 17:30 81 12 05/10/21 17:22 80 14 05/10/21 17:00 75 16 98 05/10/21 15:53 36.7 C 91 H 18 134/78 99 Transfer of Care Handoff Completed per policy Notes Mental Status: alert / awake / arousable and participated in evaluation Patient Amnestic to Procedure: Yes Nausea / Vomiting: adequately controlled Pain: adequately controlled Airway Patency, RR, SpO2: stable & adequate BP & HR: stable & adequate Hydration State: stable & adequate Anesthetic Complications: no major complications apparent and Pt Satisfied with anesthetic care
--- NOTE | 2021-05-11 20:09 | Hospitalist Progress Note ---
Date of Service May 11, 2021 Assessment & Plan (1) Symptomatic anemia: Plan: ikely GI bleed in the setting of GERD with gastritis Admit to telemetry Received Protonix and famotidine boluses in ED and started on Protonix drip On Protonix drip N.p.o., -S/P EGD:Severe antral portal hypertensive gastropathy. One clip (MR conditional) was placed on an oozing area within the area noted to have severe antral portal hypertensive gastropathy OrderedS/P 3 PRBC H&H 7.0 at time of EGD, will received a third unit after this result. Continue to monitor Consult gastroenterology: Recommendation: - Return to the floor. - Suspect anemia is from portal hypertensive gastropathy. - Given cirrhosis- baseline hgb should be between 7-8. - Would give an IV PPI for 24 hours and octreotide for 24 hours to help reduce portal pressure. - Thereafter, he should be on a daily beta chinedu or coreg to help reduce portal htn pressures. (2) Ascites: Plan: mild amount. noted on imaging. Patient is asymptomatic. (3) Wide-complex tachycardia: Plan: Had episode of wide-complex tachycardia during stress testing in November 2020 Patient did have some symptoms of palpitations at times Per drug safety associate, possible that he may have RVOT tachycardia He was started on metoprolol at that time Monitor on telemetry, if developing tachycardia can restart metoprolol (4) Hypertension: Plan: Well controlled per chart review Takes furosemide twice daily and metoprolol Somewhat hypotensive currently, will hold meds at this time (5) GERD (gastroesophageal reflux disease): Plan: GERD Per patient, seem to be uncontrolled since fall 2020, when he had been on oral steroids Protonix drip as above in the setting of likely GI bleed (6) CKD (chronic kidney disease), stage III: Plan: Follows with [facility] nephrology Creatinine 1.79 in ED baseline 1.4-2.0 Continue KCl 40 mEq twice daily in the setting of loop diuretic use Continue Phos NaK due to chronic hypophosphatemia Avoid nephrotoxins Monitor CMP, Phos level (7) 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: Plan: CT abdomen/pelvis showing gastric wall thickening likely secondary to partial distention, a nonspecific gastritis could appear similarly. Also noted to have cirrhosis with stigmata of portal venous hypertension including splenomegaly with small volume of abdominal pelvic ascites. As above, suspect more likely GI bleed from uncontrolled reflux, less likely bleeding varices at this time GI consulted Monitor CMP (8) Pancytopenia: Plan: Patient follows with Dr. Scales Pancytopenia thought to be secondary to liver disease Continue to monitor CBC Most recent hemoglobin measurements had been around 11 more likely that he has acute GI bleed at this time Platelet count typically fluctuates between 70s to 80s, actually currently higher than what seems to be his baseline Monitor CBC DVT prophylaxis: SCDs, chemoprophylaxis contraindicated in the setting of acute symptomatic anemia FEN: N.p.o., NSS at 125 cc/h for 2 bags Dispo: Admit to telemetry CODE STATUS: Full Admission and Anticipated Discharge Date Admission Date: May 10, 2021 Subjective Patient reports feeling better. He s not feeling fatigued, nor has he noticed any lood in his stools, or abdominal pain today. Review of Systems Review of Systems: All systems reviewed & are unremarkable except as noted in HPI & below Physical Exam Physical Exam: GENERAL: A&Ox3. NAD. HEENT: PERRL, EOMI. Moist mucous membranes. NECK: No JVD. No lymphadenopathy. CHEST/LUNGS: CTAB A/P. No crackles, wheezes, rales, rhonchi. HEART: RRR. No m/g/r. No carotid bruits. ABDOMEN: Mild TTP in epigastric region, nondistended, soft. BS+ x4 EXTREMITIES: No cyanosis, no clubbing, no edema SKIN: Warm and dry. No rashes or lesions. PSYCHIATRIC: Euthymic affect, no SI, no pressured speech, no hallucinations NEUROLOGIC: No FND. CN II-XII grossly intact. Results & Data Results & Data ([facility]) Vital Signs (Past 12 Hours) Vital Signs Temp Pulse Pulse Resp BP BP Pulse Ox 05/11/21 19:17 36.8 C 65 16 102/47 L 97 05/11/21 16:00 71 05/11/21 15:28 36.5 C 73 20 126/69 100 05/11/21 14:56 36.4 C L 90 20 136/74 99 05/11/21 13:56 36.6 C 49 L 20 113/58 L 97 05/11/21 13:26 36.6 C 64 20 111/54 L 99 05/11/21 13:11 36.6 C 57 L 20 124/64 100 05/11/21 12:55 36.7 C 60 20 99/43 L 97 05/11/21 11:39 78 18 128/65 99 05/11/21 11:24 67 18 101/41 L 100 05/11/21 11:09 74 16 98/48 L 97 05/11/21 10:12 74 20 118/54 L 100 PG Care Time/CCT Total # of Minutes Spent Total Time Spent with Patient: Total time spent is greater than 50% in coordination of care (as documented) at patient's floor/unit and/or counseling patient: Coding Level of Care Code 94964 Subseq Hosp Care Lvl 3 Diagnoses Symptomatic anemia D64.9 Ascites R18.8 Wide-complex tachycardia I47.2 Hypertension I10 GERD (gastroesophageal reflux disease) K21.9 CKD (chronic kidney disease), stage III N18.3 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 K75.81; K74.60 Pancytopenia D61.818 Time Spent (min) 35
[2021-05-11 21:48] LABS: Hematocrit (blood only) 24.6 % (42-52)
[2021-05-12] MEDS: PANTOprazole 40 MG in DEXTROSE 5% 100 ML IV SCH ×5 (02:03→21:30)
--- NOTE | 2021-05-12 02:03 | Billing Data ---
Date of Service May 12, 2021 Coding Level of Care Code 55292 Initial Inpt Care Lvl 3
[2021-05-12] MEDS: OCTREOTIDE ACETATE 500 MCG in DEXTROSE 5% 100 ML IV SCH (05:02)
[2021-05-12 06:49] LABS: Hematocrit (blood only) 24.7 % (42-52); Hemoglobin 8.1 g/dL (14.0-18.0); Mean Corpuscular Hemoglobin 31.2 pg (25-34); Mean Corpuscular Hgb Conc 32.8 g/dL (32-36); RDW Coefficient of Variation 17.5 % (11.5-14.5); RDW Standard Deviation 60.1 fL (36.4-46.3); White Blood Count 3.12 K/uL (4.8-10.8)
[2021-05-12 06:51] LABS: Mean Platelet Volume 9.9 fL (7.4-10.4); Platelet Count 57 K/uL (130-400)
[2021-05-12 07:20] LABS: Basophils # (auto) 0.02 K/uL (0-0.2); Basophils % (auto) 0.6 %; Eosinophils # (auto) 0.24 K/uL (0-0.5); Eosinophils % (auto) 7.7 %; Lymphocytes # (auto) 0.92 K/uL (1.2-3.4); Lymphocytes % (auto) 29.5 %; Monocytes # (auto) 0.39 K/uL (0.11-0.59); Monocytes % (auto) 12.5 %; Neutrophils # (auto) 1.55 K/uL (1.4-6.5); Neutrophils % (auto) 49.7 %
[2021-05-12 07:27] LABS: Albumin Globulin Ratio 0.7 (0.9-2); BUN Creatinine Ratio 9.2 (10-20); Bilirubin,Total 2.7 mg/dl (0.2-1.0); Calcium 7.9 mg/dl (8.5-10.1); Creatinine Clr Calc Pharmacy 55.5 ml/min; Est GFR (Non-African American) 39.7 ml/min; Globulin 2.8 gm/dl (2.5-4.0); Phosphorus 3.3 mg/dl (2.5-4.9); Potassium 3.9 mmol/L (3.5-5.1); Total Protein 4.8 gm/dl (6.0-8.3)
[2021-05-12] MEDS: POT PHOSPHATE MONOBASIC W/ SOD TAB PO SCH (08:53)
[2021-05-12] MEDS: CHOLECALCIFEROL 1,000 UNITS 25 MCG TAB PO SCH (08:53)
[2021-05-12] MEDS: CHLORHEXIDINE GLUCONATE 0.12% 480 ML MT SCH ×2 (08:54→21:05)
[2021-05-12] MEDS: METOPROLOL SUCC 25MG EXT REL TAB PO SCH (09:46)
--- NOTE | 2021-05-12 10:20 | Hospitalist Progress Note ---
Date of Service May 12, 2021 Assessment & Plan (1) Symptomatic anemia: Plan: Severe portal hypertensive gastropathy with one small oozing area - Aim Hgb 7-8 per GI recommendations - Stop octreotide today after 24 hours - Will continue pantoprazole IV drip until 9pm and switch to PO 40mg PO BID - advance diet is tolerated - s/p EGD: Severe antral portal hypertensive gastropathy. One clip (MR conditional) was placed on an oozing area within the area noted to have severe antral portal hypertensive gastropathy Hgb stable 8.1 s/p 3 units PRBCs Restart on his usual metoprolol succinate 25mg PO daily (2) Ascites: Plan: mild amount. noted on imaging. Patient is asymptomatic. (3) Wide-complex tachycardia: Plan: Had episode of wide-complex tachycardia during stress testing in November 2020 Patient did have some symptoms of palpitations at times Per bunghole borer, possible that he may have RVOT tachycardia He was started on metoprolol at that time Monitor on telemetry, if developing tachycardia can restart metoprolol (4) Hypertension: Plan: Well controlled per chart review Restart on metoprolol succinate 25mg PO Restart Lasix 40mg IV BID today as appears to be hypervolemic with holding this and blood transfusions (5) GERD (gastroesophageal reflux disease): Plan: Per patient, seem to be uncontrolled since fall 2020, when he had been on oral steroids Protonix as above (6) CKD (chronic kidney disease), stage III: Plan: Follows with [facility] Creatinine 1.79 in ED baseline 1.4-2.0 Continue KCl 40 mEq twice daily in the setting of loop diuretic use Continue Phos NaK due to chronic hypophosphatemia Avoid nephrotoxins Monitor CMP, Phos level (7) 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: Plan: CT abdomen/pelvis showing gastric wall thickening likely secondary to partial distention, a nonspecific gastritis could appear similarly. Also noted to have cirrhosis with stigmata of portal venous hypertension including splenomegaly with small volume of abdominal pelvic ascites. As above, suspect more likely GI bleed from uncontrolled reflux, less likely bleeding varices at this time GI consulted Monitor CMP (8) Pancytopenia: Plan: Patient follows with Dr. Scales Pancytopenia thought to be secondary to liver disease Continue to monitor CBC Most recent hemoglobin measurements had been around 11 more likely that he has acute GI bleed at this time Platelet count typically fluctuates between 70s to 80s, actually currently higher than what seems to be his baseline Monitor CBC Plan: DVT prophylaxis: SCDs, chemoprophylaxis contraindicated in the setting of acute symptomatic anemia FEN: Advance diet as tolerated Dispo: stable for transfer to med/tele CODE STATUS: Full Admission and Anticipated Discharge Date Admission Date: May 10, 2021 Subjective Patient feels mostly back to his baseline although has noticed his hands and feet getting swollen while being off his usual Lasix. Had a dark bowel movement today but much less in quantity and much less black than yesterday. No nausea or vomiting. Review of Systems Review of Systems: All systems reviewed & are unremarkable except as noted in Subjective Physical Exam Constitutional: WD/WN, vitals as above Eyes: + anicteric sclerae; normal pupil size ENMT: external ear and nose normal, oropharynx normal Respiratory: normal respiratory effort, lungs clear to auscultation Cardiovascular: Rate/Rhythm: regular rate and regular rhythm Extremities: + edema (1+ pitting in hands, 2+ in b/l LE equal) Gastrointestinal (Abdomen): Inspection/Auscultation: normal bowel sounds; abdomen not distended Percussion/Palpation: abdomen soft; abdomen nontender, no guarding and abdomen not rigid Psychiatric: A+Ox3, euthymic affect Results & Data Results & Data ([facility]) Vital Signs (Past 12 Hours) Vital Signs Temp Pulse Pulse Resp BP Pulse Ox 05/12/21 07:45 36.5 C 87 16 134/78 96 05/12/21 06:20 66 05/12/21 03:42 36.9 C 78 18 103/49 L 97 05/11/21 23:39 59 L 05/11/21 23:17 36.7 C 94 H 18 110/45 L 97 PG Care Time/CCT Total # of Minutes Spent Total Time Spent with Patient: Total time spent is greater than 50% in coordination of care (as documented) at patient's floor/unit and/or counseling patient: Coding Level of Care Code 85968 Subseq Hosp Care Lvl 2 Diagnoses Symptomatic anemia D64.9 Ascites R18.8 Wide-complex tachycardia I47.2 Hypertension I10 GERD (gastroesophageal reflux disease) K21.9 CKD (chronic kidney disease), stage III N18.3 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 K75.81; K74.60 Pancytopenia D61.818
[2021-05-12] MEDS ORDERED: [UNRECOGNIZED DRUG - REMARK] ONE (11:29)
[2021-05-12] MEDS ORDERED: FUROSEMIDE 40 MG/4 ML VIAL IV ONE ×2 (14:24→18:45)
[2021-05-12] MEDS ORDERED: [UNRECOGNIZED DRUG - REMARK] ONE (21:00)
[2021-05-12] MEDS: PANTOprazole 40 MG TAB PO SCH (21:05)
[2021-05-13 06:34] LABS: Hematocrit (blood only) 24.3 % (42-52); Hemoglobin 7.9 g/dL (14.0-18.0); Mean Corpuscular Hemoglobin 30.5 pg (25-34); Mean Corpuscular Hgb Conc 32.5 g/dL (32-36); Mean Corpuscular Volume 93.8 fL (80-100); RDW Coefficient of Variation 16.8 % (11.5-14.5); RDW Standard Deviation 57.4 fL (36.4-46.3); Red Blood Count 2.59 M/uL (4.7-6.1)
[2021-05-13 06:40] LABS: Mean Platelet Volume 9.6 fL (7.4-10.4); Platelet Count 62 K/uL (130-400)
[2021-05-13 06:55] LABS: Albumin Globulin Ratio 0.7 (0.9-2); Albumin Level 2.1 gm/dl (3.4-5.0); BUN Creatinine Ratio 8.5 (10-20); Bilirubin,Total 1.8 mg/dl (0.2-1.0); Calcium 7.9 mg/dl (8.5-10.1); Creatinine Clr Calc Pharmacy 50.5 ml/min; Est GFR (African American) 41.6 ml/min; Est GFR (Non-African American) 35.9 ml/min; Globulin 3.1 gm/dl (2.5-4.0); Magnesium 1.9 mg/dl (1.7-2.4); Phosphorus 3.7 mg/dl (2.5-4.9); Potassium 3.6 mmol/L (3.5-5.1); Total Protein 5.2 gm/dl (6.0-8.3)
[2021-05-13 07:06] LABS: Basophils # (auto) 0.02 K/uL (0-0.2); Basophils % (auto) 0.6 %; Eosinophils # (auto) 0.25 K/uL (0-0.5); Eosinophils % (auto) 7.6 %; Immature Granulocytes # (auto) 0.01 K/uL (0.00-0.02); Immature Granulocytes % (auto) 0.3 %; Lymphocytes # (auto) 0.97 K/uL (1.2-3.4); Lymphocytes % (auto) 29.4 %; Monocytes % (auto) 9.1 %; Neutrophils # (auto) 1.75 K/uL (1.4-6.5); Polychromasia 1+
[2021-05-13] MEDS: CHLORHEXIDINE GLUCONATE 0.12% 480 ML MT SCH (07:54)
[2021-05-13] MEDS: CHOLECALCIFEROL 1,000 UNITS 25 MCG TAB PO SCH (07:54)
[2021-05-13] MEDS: METOPROLOL SUCC 25MG EXT REL TAB PO SCH (07:54)
[2021-05-13] MEDS: PANTOprazole 40 MG TAB PO SCH (07:55)
[2021-05-13] MEDS: POT PHOSPHATE MONOBASIC W/ SOD TAB PO SCH (07:55)
[2021-05-13] MEDS ORDERED: FUROSEMIDE 40 MG/4 ML VIAL IV SCH (09:00)
--- NOTE | 2021-05-13 11:17 | Discharge Summary ---
Date of Service May 13, 2021 Admission HPI Per Admitting Provider Sebastian Quiñonez is a 66-year-old male with past medical history of CKD 3, nonalcoholic fatty liver disease, hypertension, hypothyroidism, GERD with gastritis, squamous cell carcinoma of skin, psoriatic arthritis, spinal stenosis who presented due to abnormal hemoglobin on outpatient labs. Patient does follow with heme-onc due to pancytopenia attributable to chronic liver disease. Today, patient reports some epigastric and mid abdominal pain. He does say he has felt dizzy as of late, about 2 to 3 weeks. Also reported an episode of dark stool about a month ago. He mentions that he has had a cough, which he feels comes about due to esophageal irritation in the setting of reflux since about fall 2020. He says at that time he was on an oral steroid treatment for a lesion on the skin of his left arm. Ever since then he felt that his stomach and esophagus have been very irritated from reflux. Currently denies chest pain, palpitations, shortness of breath, nausea, vomiting, weakness, numbness, neuro deficits, confusion, headache, fever, chills. In ED, patient had CT abdomen/pelvis showing gastric wall thickening likely secondary to partial distention, a nonspecific gastritis could appear similarly. Also noted to have cirrhosis with stigmata of portal venous hypertension including splenomegaly with small volume of abdominal pelvic ascites. Labs showing anemia with hemoglobin of 6.1, white count 5.65, thrombocytopenia with platelet at 94. Creatinine of 1.79. T bili 1.4, AST 26, ALT 11, alk phos 104. Total protein 5.9, albumin 2.5. Due to significant anemia, patient was consented for transfusion in the ED and received transfusion with 1 unit PRBC. He also received pantoprazole 80 mg bolus, followed by pantoprazole drip. Principal Diagnosis Severe portal hypertensive gastropathy with oozing, clipped. Acute gastrointestinal bleed Discharge Exam Constitutional WD/WN, vitals as above Eyes + anicteric sclerae; normal pupil size ENMT external ear and nose normal, oropharynx normal Respiratory normal respiratory effort, lungs clear to auscultation Cardiovascular Rate/Rhythm: regular rate and regular rhythm Extremities: + edema (1+ pitting in left hand, 1+ in b/l LE equal) Gastrointestinal (Abdomen) Inspection/Auscultation: normal bowel sounds; abdomen not distended Percussion/Palpation: abdomen soft; abdomen nontender, no guarding and abdomen not rigid Psychiatric A+Ox3, euthymic affect Discharge Data Allergies Allergy/AdvReac Type Severity Reaction Status Date / Time tamsulosin Allergy Intermediate HIVES Verified 05/11/21 10:12 etanercept [From Enbrel] AdvReac Unknown Increased Verified 05/11/21 10:12 infections Consultations 05/10/21 19:01 ED Decision to Admit Stat 05/10/21 22:39 Consult Gastroenterology Routine Procedures Performed Operation Date: 05/11/21 16:30 Actual Procedures p EGD Hemostasis - Harriet Fernandez MD Ordered Studies 05/10/21 17:18 CT abd pelvis wo con Stat IMPRESSION: 1. No bowel obstruction or bowel wall thickening. 2. Cirrhosis with stigmata of portal venous hypertension including splenomegaly with small volume of abdominal pelvic ascites. 3. Nonobstructing bilateral nephrolithiasis. No ureteral calculi or hydronephrosis. 4. Gastric wall thickening is likely secondary to partial distention. A nonspecific gastritis could appear similarly. 5. Additional findings as above. Hospital Course (1) Symptomatic anemia: Sebastian Quiñonez is a 66 year old male admitted to [facility] from May 10 - 2021 due to low hemoglobin (6.5 g/dL) on outpatient labs. He was diagnosed with acute upper gastrointestinal bleed which was treated with intravenous octreotide and pantoprazole. He underwent upper endoscopy on May [address] Fernandez which showed severe antral portal hypertensive gastropathy with one area of oozing which required clip. He required a total of 3 units packed red blood cells. Hemoglobin on discharge 7.9 g/dL. He should follow up with his primary care physician for repeat hemoglobin in approximately 1 week (Nb: will defer to PCP to order this). Please also repeat BMP in 1 week as his potassium has been discontinued as he has not required this as an inpatient. However this may be because his Lasix was initially held (restarted intravenously 05/12) and he may need to be restarted as he takes his oral Lasix again. He was restarted on his metoprolol as a beta chinedu to reduce his portal hypertension however his heart rate did not allow for up titration of this. Could consider switching to propranolol as an outpatient if ok from cardiology stand point. He was transitioned to pantoprazole 40mg PO BID, instead of his usual omeprazole. He should follow up with gastroenterology in 4-6 weeks. (2) Ascites: (3) Wide-complex tachycardia: (4) Hypertension: (5) GERD (gastroesophageal reflux disease): (6) CKD (chronic kidney disease), stage III: (7) 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: (8) Pancytopenia: Total Time Total Time Spent Total Time Spent (In Minutes): 35 Discharge Plan Discharge Items Patient Disposition: Home - Self-Care Reason For Visit: ANEMIA Discharge Diagnosis: Severe portal hypertensive gastropathy with oozing, clipped. Acute gastrointestinal bleed Activity: Resume your previous activity Non-emergency contact: Primary Care Provider and Winder Contort Operator Call non-emergency contact if: you have any medication questions and your symptoms worsen Follow-up/Referrals: Fiorella Castellano DO [Primary Care Provider] - (1 week follow up) Harriet Fernandez MD [Hospitalist] - (Follow up GI bleed 4-6 weeks) Diet: Low Sodium (2gm) Addtl Attending Provider Instructions: You were admitted to [facility] from May 10 0 2021 due to low hemoglobin on outpatient labs. You were diagnosed with acute upper gastrointestinal bleed which was treated with intravenous octreotide and pantoprazole. You underwent upper endoscopy on May [address] Fernandez which showed severe antral portal hypertensive gastropathy with one area of oozing which required clip. You required 3 units packed red blood cells. Hemoglobin on discharge 7.9g/dL. Please follow up with your primary care physician for repeat hemoglobin in approximately 1 week. You were started on pantoprazole 40mg PO BID, this is instead of your usual omeprazole. Please follow up with gastroenterology in 4-6 weeks. Kind regards, Dr Jonny Lares Pending Studies at Discharge: No Stand-Alone Forms: My [facility] [employer], Smoking Cessation Medications and DC Order Prescriptions: New pantoprazole 40 mg Tablet,Delayed Release (Dr/Ec) 40 mg PO BID Qty: 60 RF: 0 Continued metoprolol succinate 25 mg tablet extended release 24 hr 25 mg PO QAM Qty: 90 RF: 3 furosemide 20 mg tablet 40 mg PO BID Qty: 360 RF: 2 chlorhexidine gluconate [Peridex] 0.12 % mouthwash 15 ml buccal BID Qty: 473 RF: 2 Humira(CF) Pen 40 mg/0.4 mL pen injector kit 40 mg subcut Q14D Qty: 2 RF: 2 potassium, sodium phosphates [Phos-NaK] 280-160-250 mg powder in packet 1 packet PO QAM RF: 0 cholecalciferol (vitamin D3) 50 mcg (2,000 unit) capsule 50 mcg PO QAM RF: 0 dexamethasone 0.5 mg/5 mL elixir 10 ml PO DIRECTED RF: 0 betamethasone dipropionate 0.05 % ointment 1 applic topical DIRECTED RF: 0 Discontinued potassium chloride 20 mEq tablet extended release 40 meq PO BID Qty: 360 RF: 2 omeprazole 20 mg tablet,disintegrat, delay rel 20 mg PO BID Qty: 180 RF: 2 Discharge Orders: Discharge Order (Routine); Ordered 05/13/21 Ordered By: Jonny Lares Admission Data Admit Date/Time: 05/10/21 19:53 Attending Provider: Jonny Lares Admit Provider: Praveen Lee Primary Care Provider: Fiorella Castellano Other Providers: Gio Bello ; Elvin Carreno Other Interventions: *Hourly Rounding Last Done: 05/13/21 12:00 Discharge Summary Assessment (RN) Last Done: 05/13/21 11:52 Coding Level of Care Code D/C DAY MANAGEMENT >30 MINS Diagnoses Symptomatic anemia D64.9 Ascites R18.8 Wide-complex tachycardia I47.2 Hypertension I10 GERD (gastroesophageal reflux disease) K21.9 CKD (chronic kidney disease), stage III N18.3 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 K75.81; K74.60 Pancytopenia D61.818
== END 2021-05-13 12:54 | disposition home or self-care (01) | DRG 392 ==
LOC: ED 15:46 → SUATTDRO 19:53 → 2E 19:53 → 2N 05-12 17:40

== ENCOUNTER 2021-06-20 15:52 | Inpatient (IN) ==
[2021-06-20 16:37] LABS: Hematocrit (blood only) 18.2 % (42-52); Hemoglobin 5.8 g/dL (14.0-18.0); Mean Corpuscular Hemoglobin 29.6 pg (25-34); Mean Corpuscular Hgb Conc 31.9 g/dL (32-36); Mean Corpuscular Volume 92.9 fL (80-100); Mean Platelet Volume 9.5 fL (7.4-10.4); Platelet Count 86 K/uL (130-400); RDW Standard Deviation 64.7 fL (36.4-46.3); Red Blood Count 1.96 M/uL (4.7-6.1); White Blood Count 4.83 K/uL (4.8-10.8)
[2021-06-20] MEDS ORDERED: SODIUM CHLORIDE 0.9% 250 ML IV PRN ×2 (16:41→18:51)
[2021-06-20] MEDS ORDERED: PANTOPRAZOLE BOLUS/DRIP 1 EA IV STA (16:41)
[2021-06-20] MEDS ORDERED: PANTOprazole 80 MG in DEXTROSE 5% 100 ML IV ONE (16:41)
[2021-06-20 16:48] LABS: INR 1.2 (0.9-1.1); Partial Thromboplastin Ratio 0.8; Partial Thromboplastin Time 22.5 Seconds (21.0-31.0); Prothrombin Time 13.1 Seconds (9.0-12.0)
[2021-06-20 17:01] LABS: Albumin Globulin Ratio 0.7 (0.9-2); Albumin Level 2.4 gm/dl (3.4-5.0); BUN Creatinine Ratio 10.8 (10-20); Bilirubin,Total 1.5 mg/dl (0.2-1.0); Calcium 8.1 mg/dl (8.5-10.1); Creatinine Clr Calc Pharmacy 49.6 ml/min; Est GFR (African American) 40.1 ml/min; Est GFR (Non-African American) 34.6 ml/min; Globulin 3.6 gm/dl (2.5-4.0); Potassium 2.9 mmol/L (3.5-5.1)
--- NOTE | 2021-06-20 17:31 | History & Physical Report ---
Date of Service June 20, 2021 Assessment & Plan (1) Symptomatic anemia: Plan: - VS stable, wnl. Hgb 5.8, no obvious bleeding denies hematemesis/melena/hematochezia. Stool guaiac + in ED. - Very likely due to GI bleed, suspect upper given his history of poorly control led GERD with portal hypertensive gastropathy, gastritis. Also has cirrhosis with portal htn. - Protonix bolus with drip started in ED. - NPO with LRs @ 125 cc/hr. - 1 unit pRBCs started in ED, 2 more ordered for transfusion with 2 units ready if needed. - H/H 4 hour s/p transfusion. - CT A[facility]. [facility], appreciate their recommendations. - CBC in AM. - EGD on 05/11: Severe antral portal hypertensive gastropathy. One clip (MR conditional) was placed on an oozing area within the area noted to have severe antral portal hypertensive gastropathy (2) 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: Plan: - CT A/P on 05/11 noted cirrhosis with stigmata of portal venous hypertension including splenomegaly with small volume of abdominal pelvic ascites. - D/c'd with lactulose BID however stopped taking it after several days as he was already having 3-4 BMs/day before starting it, felt he should not take it. - Had 1 week of waxing/waning confusion after discharge last month, presented to ED on 06/01 for this at that time his ammonia level was wnl. CT without acute findings. Today ammonia is 89, he is AAOx4, no episodes of confusion in weeks. - Was started on metoprolol ER 25mg upon d/c for portal hypertension. Cannot tolerate higher dose. - Lasix 40 mg twice daily with KCl 20 mEq twice daily. - Has gained ~15 lbs despite Lasix and decreased appetite, will start empiric coverage for SBP with Rocephin 1g q12h given ascites and known cirrhosis. - GI consulted. Will need GI/hepatology f/u upon discharge. - CMP daily. (3) GERD (gastroesophageal reflux disease): Plan: - Poorly controlled since 2020 when he was on PO steroids. - Has been on Protonix twice daily since discharge last month. Protonix drip w/ bolus started in ED, will continue unless recommended otherwise by GI. (4) Hypokalemia: Plan: - 2.9, replete with K riders overnnight and recheck in AM. (5) Pancytopenia: Plan: - Secondary to liver disease, he follows with Hematology routinely. - WBC 4.83, RBC 1.96 Hgb 5.8 (~7.9 on d/c 1 months ago), PLT 86 (baseline 70- 80s) - Monitor CBC. (6) CKD (chronic kidney disease), stage III: Plan: - Follows with [facility] nephrology - Creatinine 1.95 in ED baseline 1.5-1.9 - NPO for now, when taking PO intake, can continue KCl 40 mEq twice daily in the setting of loop diuretic use - Replete K with K riders overnight as above. - Continue Phos NaK due to chronic hypophosphatemia - Avoid nephrotoxins, renally dose medications as able. - Monitor CMP, phosphorus level (7) Hypertension: Plan: - Normotensive on admission, takes metoprolol ER 25mg daily for portal htn, cannot tolerate a higher dose due to fatigue, dizziness. - Continue to monitor. (8) Psoriatic arthritis: Plan: - Adalimumab injection every 2 weeks. (9) Hypothyroidism: Plan: - Not currently taking medication for this. (10) Spinal stenosis: Plan: - Chronic, has cervicalgia, with ongoing left arm numbness/tingling for 1-2 months. - No acute needs. (11) Vitamin D deficiency: Plan: - Can continue Vit D supplementation when pt taking PO intake. Plan: - PCU. - SCDs, chemopxx contraindicated in setting of acute bleed. - DNR/DNI. I did discuss this with patient and his son who is at bedside, patient specified he does not wan CPR, standard ACLS protocol, defibrillation, or intubation in the event that he were to cardiac arrest. History of Present Illness Chief Complaint: Hgb 5.8 on outpatient labs Primary Care Provider: DO Sebastian Schneidery is a 66-year-old male with past medical history of CKD3, liver 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, hypertension, hypothyroidism, GERD with gastritis, psoriatic arthritis, spinal stenosis, pancytopenia who presented due to abnormal hemoglobin on outpatient labs. Patient was seen and admitted to the hospital just over a month ago for hemoglobin of 6.1. At that time he was diagnosed with an acute upper GI bleed and was treated with IV octreotide and pantoprazole, underwent upper endoscopy which showed severe antral portal hypertensive gastropathy with 1 area of oozing which required a clip. He required total 3 units RBCs at that time. Hgb discharge 7.9. Today, he has a hemoglobin of 5.8 from outpatient labs ordered by his PCP. He states that after discharge, he had a week of intermittent confusion, occurring about once every other day but completely resolved within a week, evaluated for this once in ED with no acute findings, normal ammonia level and ead CT at that time. He has also had nausea since then, but no vomiting, hematemesis, diarrhea, constipation, melena or hematochezia. He has had ongoing dizziness, shortness of breath with exertion, palpitations with exertion, and fatigue all likely related to his low hemoglobin. He also notes he has gained approximately 20 pounds since last admission despite taking 80 mg of Lasix daily and a very minimal appetite. In ED, he is slightly tachycardic with heart rate of 94, all other vital signs within normal limits and stable. Labs significant for WBC 4.83, RBC 1.96, Hgb 5.8, platelet 86 (known pancytopenia). Potassium 2.9. Cr 1.95, about baseline. Calcium 8.1, T bili 1.5 (baseline). Ammonia level on outpatient labs was 89 earlier today. Albumin 2.4. In ED, patient was started on Protonix bolus with drip, 1 unit PRBCs transfusion begun, as well as LR's at 125 cc/hour. Hospitalist service was consulted for further evaluation and admission. Allergies Allergy/AdvReac Type Severity Reaction Status Date / Time tamsulosin Allergy Intermediate HIVES Verified 06/20/21 17:09 etanercept [From Enbrel] AdvReac Unknown Increased Verified 06/20/21 17:09 infections Home Medications Medication Instructions Recorded Confirmed Type furosemide 20 mg tablet 40 mg PO BID #360 tab 06/23/20 06/20/21 Rx chlorhexidine gluconate 0.12 % 15 ml BUCCAL BID #473 ml 09/28/20 06/20/21 Rx mouthwash (Peridex) metoprolol succinate 25 mg 25 mg PO QAM #90 tab 03/23/21 06/20/21 Rx tablet,extended release 24 hr adalimumab 40 mg/0.4 mL 40 mg SUBCUT Q14D #2 ea 04/06/21 06/20/21 Rx subcutaneous pen kit (Humira(CF) Pen) betamethasone dipropionate 0.05 % 1 applic TOPICAL DIRECTED PRN 05/10/21 06/20/21 History topical ointment pantoprazole 40 mg tablet,delayed 40 mg PO BID #60 tab 05/13/21 06/20/21 Rx release cholecalciferol (vitamin D3) 50 50 mcg PO QAM #90 cap 05/15/21 06/20/21 Rx mcg (2,000 unit) capsule potassium chloride 20 mEq 20 meq PO BID #60 tab 05/30/21 06/20/21 Rx tablet,extended release darbepoetin coretta in polysorbat 60 60 mcg SUBCUT .COMPLEX syr 06/20/21 06/20/21 History mcg/0.3 mL in polysorbate injection syringe (Aranesp) Past Med/Surg History Medical History CKD (chronic kidney disease), stage III Gastritis GAVE (gastric antral vascular ectasia) Per records GERD (gastroesophageal reflux disease) History of SCC (squamous cell carcinoma) of skin S/p removal- follows with derm Hypertension Hypothyroidism 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 Oral mucositis On mouthwash daily- no recent issues Pancytopenia Psoriasis Psoriatic arthritis PSVT (paroxysmal supraventricular tachycardia) PVT (portal vein thrombosis) denies Spinal stenosis EPIDURAL INJECTIONS IN PAST FOR PAIN RELIEF TMJ arthralgia Urinary retention Vitamin D deficiency Wide-complex tachycardia ON METOPROLOL-F/U DR VANESSA Surgical History H/O foot surgery excision of neuroma b/l feet History of appendectomy History of arthroscopy RT KNEE History of cataract surgery RT/LEFT History of cholecystectomy History of esophagogastroduodenoscopy (EGD) History of herniorrhaphy right inguinal History of lithotripsy History of liver biopsy History of repair of rotator cuff RT/LEFT History of tooth extraction History of urologic surgery Urethral reconstruction 4 years ago at [facility] Nausea and vomiting after administration of anesthetic agent S/P epidural steroid injection S/P orchiectomy Right age 9 for UDT S/P urological surgery (2018) [place] [place]rapubic catheter AND REMOVAL Family History Grandmother (Maternal) Diabetes Father Renal cancer Mother Aortic aneurysm Denies family history of Ovarian cancer Prostate cancer Myocardial infarction Breast cancer Colorectal cancer Social History Smoking Status: Unknown if ever smoked Second Hand Exposure: No; Do You Dip or Chew Tobacco: No; Tobacco Cessation Education Requested by Patient: No Hx Alcohol Use: No Hx Substance Use: No Preferred Language: Andorran Communication Ability: Effective Visual Impairment: No Limitations Hearing Ability: Hard of Hearing Membership Sales Advisor Required: No Beliefs That Will Affect Care: None marital status: / Current Living Situation: Spouse Current Living Situation Comment: SON LIVING WITH PT CURRENTLY current occupational status: retired How many Children do You have: 1 Other Information That Helps Us Care for You: No Feels Safe at Home: Yes Safety Concerns: Feels Safe At This Time caffeine: Yes during the past year weight has: increased > 10 lbs Dental Care, Regularly: No Physical Activity Frequency: Other Physical Activity Frequency Comment: currently can not excercise due to physical condition Seatbelt Use: never Sunscreen Use: No Assistive Devices: None Review of Systems Review of Systems: Constitutional: Reports ongoing generalized weakness, dizziness, fatigue, lack of appetite over the past month; no fever/chills, myalgias, night sweats Eyes: No diplopia, no worsening or blurred vision ENT: normal hearing, no trouble swallowing Respiratory: Reports mild dyspnea upon exertion over the past month no cough, sputum, dyspnea at rest Cardiovascular: Reports palpitations associated with activity; no chest pain/tightness/pressure Abdomen: Reports frequent nausea without vomiting, hematemesis; no abdominal pain, vomiting, diarrhea or constipation : Denies dysuria, hematuria, increased urgency/frequency, urinary retention Musculoskeletal: No joint pain, calf pain, swelling Neurologic: No focal weakness/numbness/tingling, or balance problems Psychiatric: No anxiety or depression Skin: No rash or itch Physical Exam Physical Exam: General: awake, alert, no apparent distress Head: Normocephalic, atraumatic ENT: PERRL, EOMI, no pharyngeal exudate, mucous membranes moist Chest: Clear to auscultation, on room air, no adventitious breath sounds Cardiac: Regular rate and rhythm, no murmur, no JVD, normal peripheral pulses, good capillary refill Abdominal: NABS x 4 quadrants, soft, nontender to palpation, no rebound, guarding or tenderness Extremities: Normal inspection, no peripheral edema or erythema, calfs nontender to palpation Psych: Normal mood and affect Neuro: AAO x 3, strength intact bilaterally and rated 5/5, no motor deficits, speech is clear, no peripheral sensory deficits Skin: with pallor; no rash or erythema Results & Data Results & Data ([facility]) Vital Signs (Past 12 Hours) Vital Signs Temp Pulse Resp BP Pulse Ox 06/20/21 16:20 100 06/20/21 15:54 36.7 C 94 H 18 121/72 100 Laboratory Results Abnormal lab results 06/20/21 06/20/21 06/20/21 Range/Units 16:10 16:10 16:10 RBC 1.96 L (4.7-6.1) M/uL Hgb 5.8 L* (14.0-18.0) g/dL Hct 18.2 L* (42-52) % MCHC 31.9 L (32-36) g/dL RDW Std Deviation 64.7 H (36.4-46.3) fL RDW Coeff of Miguel 19.0 H (11.5-14.5) % Plt Count 86 L (130-400) K/uL PT 13.1 H (9.0-12.0) Seconds INR 1.2 H (0.9-1.1) Potassium 2.9 L (3.5-5.1) mmol/L Creatinine 1.95 H (0.6-1.4) mg/dl Glucose 138 H (70-99(Fasting)) mg/dl Calcium 8.1 L (8.5-10.1) mg/dl Total Bilirubin 1.5 H (0.2-1.0) mg/dl Alkaline Phosphatase 106 H (34-104) U/L Albumin 2.4 L (3.4-5.0) gm/dl Albumin/Globulin Ratio 0.7 L (0.9-2) Crossmatch 06/20/21 Range/Units 16:21 RBC (4.7-6.1) M/uL Hgb (14.0-18.0) g/dL Hct (42-52) % MCHC (32-36) g/dL RDW Std Deviation (36.4-46.3) fL RDW Coeff of Miguel (11.5-14.5) % Plt Count (130-400) K/uL PT (9.0-12.0) Seconds INR (0.9-1.1) Potassium (3.5-5.1) mmol/L Creatinine (0.6-1.4) mg/dl Glucose (70-99(Fasting)) mg/dl Calcium (8.5-10.1) mg/dl Total Bilirubin (0.2-1.0) mg/dl Alkaline Phosphatase (34-104) U/L Albumin (3.4-5.0) gm/dl Albumin/Globulin Ratio (0.9-2) Crossmatch See Detail ECG Additional Comments: Normal sinus rhythm Prolonged QT Abnormal ECG When compared with ECG of 01-JUN-2021 19:06, Incomplete right bundle branch block is no longer Present T wave inversion no longer evident in Anterior leads. Upon my review, NSR without St segment or T wave changes. Code Status & VTE Plan Code Status DNR/DNI. Supervising Physician Co-Signing Physician Notes I supervised Bella Emery PA-C on the care of this patient. I interviewed and examined the patient independently of her. The plan is as written in her note except for any following changes/exceptions: None Pleasant 66yo M w/ hx of SERRANO cirrhosis who presents with recurrent likely UGIB. Patient was in the hospital with EGD about 1 month ago requiring clip; now with recurrent hgb down to 5.8 as outpatient with symptoms. Starting transfusion, SBP ppx, GI consulted. PG Care Time/CCT Total # of Minutes Spent Total Time Spent with Patient: Total time spent is greater than 50% in coordination of care (as documented) at patient's floor/unit and/or counseling patient: Coding Level of Care Code 54749 Initial Inpt Care Lvl 3 Diagnoses Symptomatic anemia D64.9 Hypothyroidism E03.9 Pancytopenia D61.818 GERD (gastroesophageal reflux disease) K21.9 Hypertension I10 Psoriatic arthritis L40.50 CKD (chronic kidney disease), stage III N18.3 Spinal stenosis M48.00 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 K75.81; K74.60 Vitamin D deficiency E55.9 Hypokalemia E87.6
[2021-06-20] MEDS: LACTATED RINGER'S 1,000 ML IV SCH (17:59)
--- NOTE | 2021-06-20 18:13 | Emergency Department Note ---
History of Present Illness General Chief Complaint: Weakness Stated Complaint: DR VELÁSQUEZ, LIGHT HEADED, WEAK Time Seen by Provider: 06/20/21 16:30 History of Present Illness Provider Complaint: + abnormal lab Initial visit (ago): day(s) (1) Description of abnormal result: Low hemoglobin Context: + called for abnormal lab result Associated symptoms: + shortness of breath and + other (Ms.); no chills or no chest pain HPI narrative: No melena hematochezia hematuria or hemoptysis. No abdominal pain. Home Medications Medication Instructions Recorded Confirmed Type furosemide 20 mg tablet 40 mg PO BID #360 tab 06/23/20 06/20/21 Rx chlorhexidine gluconate 0.12 % 15 ml BUCCAL BID #473 ml 09/28/20 06/20/21 Rx mouthwash (Peridex) metoprolol succinate 25 mg 25 mg PO QAM #90 tab 03/23/21 06/20/21 Rx tablet,extended release 24 hr adalimumab 40 mg/0.4 mL 40 mg SUBCUT Q14D #2 ea 04/06/21 06/20/21 Rx subcutaneous pen kit (Humira(CF) Pen) betamethasone dipropionate 0.05 % 1 applic TOPICAL DIRECTED PRN 05/10/21 06/20/21 History topical ointment pantoprazole 40 mg tablet,delayed 40 mg PO BID #60 tab 05/13/21 06/20/21 Rx release cholecalciferol (vitamin D3) 50 50 mcg PO QAM #90 cap 05/15/21 06/20/21 Rx mcg (2,000 unit) capsule potassium chloride 20 mEq 20 meq PO BID #60 tab 05/30/21 06/20/21 Rx tablet,extended release darbepoetin coretta in polysorbat 60 60 mcg SUBCUT .COMPLEX syr 06/20/21 06/20/21 History mcg/0.3 mL in polysorbate injection syringe (Aranesp) Allergies Allergy/AdvReac Type Severity Reaction Status Date / Time tamsulosin Allergy Intermediate HIVES Verified 06/20/21 17:09 etanercept [From Enbrel] AdvReac Unknown Increased Verified 06/20/21 17:09 infections Past Med/Surg History Medical History CKD (chronic kidney disease), stage III Gastritis GAVE (gastric antral vascular ectasia) Per records GERD (gastroesophageal reflux disease) History of SCC (squamous cell carcinoma) of skin S/p removal- follows with derm Hypertension Hypothyroidism 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 Oral mucositis On mouthwash daily- no recent issues Pancytopenia Psoriasis Psoriatic arthritis PSVT (paroxysmal supraventricular tachycardia) PVT (portal vein thrombosis) denies Spinal stenosis EPIDURAL INJECTIONS IN PAST FOR PAIN RELIEF TMJ arthralgia Urinary retention Vitamin D deficiency Wide-complex tachycardia ON METOPROLOL-F/U DR VANESSA Surgical History H/O foot surgery excision of neuroma b/l feet History of appendectomy History of arthroscopy RT KNEE History of cataract surgery RT/LEFT History of cholecystectomy History of esophagogastroduodenoscopy (EGD) History of herniorrhaphy right inguinal History of lithotripsy History of liver biopsy History of repair of rotator cuff RT/LEFT History of tooth extraction History of urologic surgery Urethral reconstruction 4 [place] ago [place] [facility] [place] Nausea and vomiting after administration of anesthetic agent S/P epidural steroid injection S/P orchiectomy Right age 9 for UDT S/P urological surgery (2018) [place] [place] Suprapubic catheter AND REMOVAL Family History Grandmother (Maternal) Diabetes Father Renal cancer Mother Aortic aneurysm Denies family history of Ovarian cancer Prostate cancer Myocardial infarction Breast cancer Colorectal cancer Social History Smoking Status: Never smoker Second Hand Exposure: No; Hx Alcohol Use: No Hx Substance Use: No Preferred Language: French Communication Ability: Effective Visual Impairment: No Limitations Hearing Ability: Hard of Hearing 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 Required: No Beliefs That Will Affect Care: None marital status: / Current Living Situation: Family Current Living Situation Comment: SON LIVING WITH PT CURRENTLY current occupational status: retired How many Children do You have: 1 Feels Safe at Home: Yes caffeine: Yes during the past year weight has: increased > 10 lbs Dental Care, Regularly: No Physical Activity Frequency: Other Physical Activity Frequency Comment: currently can not excercise due to physical condition Seatbelt Use: never Sunscreen Use: No Assistive Devices: None Review of Systems A total of 10 systems reviewed and were otherwise negative Physical Exam Vital Signs: Vital Signs - 24 hr 06/20/21 15:54 06/20/21 16:20 06/20/21 18:10 Temperature 36.7 C 36.9 C Temperature Source Temporal Artery Sc an Oral Pulse Rate 94 H 86 Pulse Rhythm Regular Pulse Strength Normal Respiratory Rate 18 20 Blood Pressure 121/72 129/71 Blood Pressure Chrystal n 88 90 Blood Pressure Pos ition Sitting Lying Pulse Oximetry 100 100 100 Oxygen Delivery Me thod Room Air Room Air Sepsis New/Unexpla ined Change in Men eliel Status No Sepsis Action Take n by Nursing No Action Required 06/20/21 18:12 Temperature 36.9 C Temperature Source Oral Pulse Rate 86 Pulse Rhythm Pulse Strength Respiratory Rate 18 Blood Pressure 116/68 Blood Pressure Chrystal n Blood Pressure Pos ition Pulse Oximetry 100 Oxygen Delivery Me thod Room Air Sepsis New/Unexpla ined Change in Men eliel Status Sepsis Action Take n by Nursing Physical Exam: Physical Exam GENERAL: He is oriented to person, place, and time. He appears well-developed and well-nourished. He does not appear distressed. HENT: Exam performed. - Head: Normocephalic and atraumatic. - Right Ear: External ear normal. No mastoid tenderness. - Left Ear: External ear normal. No mastoid tenderness. - Mouth/Throat: The oropharynx is clear and moist. No trismus in the jaw. No dental abscesses or uvula swelling. No oropharyngeal exudate or tonsillar abscesses. EYES: Conjunctivae and EOM are normal. Pupils are equal, round, and reactive to light. Right eye exhibits no discharge. Left eye exhibits no discharge. No scleral icterus. NECK: Normal range of motion. Neck supple. No JVD present. No spinous process tenderness present. No carotid bruit present. No rigidity. No tracheal deviation and normal range of motion present. No Brudzinski's sign and no Kernig's sign noted. CV: Normal rate, regular rhythm, normal heart sounds and intact distal pulses. There is no peripheral edema. Palpable radial pulses bue. PULM/CHEST: Effort normal and breath sounds normal. No respiratory distress. No stridor. He has no wheezes. He has no rales. - Chest Wall: He exhibits no tenderness. ABD: The abdomen is soft. Bowel sounds are normal. He has no distension. No mass is present. There is no tenderness. There is no rebound, no guarding, no Wiggins's sign and no tenderness at McBurney's point. Rovsig negative. Rectal: Hemoccult positive. MUSC/SKEL: Normal range of motion. There is no peripheral edema, tenderness or deformity. LYMPH: No cervical adenopathy. NEURO: He is alert and oriented to person, place, and time. He has normal strength. No cranial nerve deficit or sensory deficit. Coordination and gait normal. GCS eye subscore is 4. GCS verbal subscore is 5. GCS motor subscore is 6. Cerebellar tests wnl. SKIN: Pale PSYCH: He has a normal mood and affect. Behavior is normal. Judgment and thought content normal. Course Course 1630: The patient was evaluated in room A2. A complete history and physical exam was performed Cardiac monitoring: An order was placed for continuous cardiac monitoring. The monitor shows a rate of 80 with sinus rhythm Patient was seen during a time of extreme volume and extreme acuity during the COVID-19 pandemic. Nursing triage protocols were initiated and labs were drawn by protocol in the triage area. EMR reviewed. Patient's hemoglobin was found to be 5.7 earlier today. We will plan on transfusing patient's PURBC and start the patient on Protonix bolus and drip and [facility]. Administered Medications Lactated Ringer's (Lr) 1,000 mls @ 125 mls/hr IV .Q8H LUZ Stop: 07/20/21 17:44 Last Admin: 06/20/21 17:59 Dose: 125 mls/hr Documented by: [id number] Discontinued Medications Pantoprazole Sodium 80 mg/ (Dextrose) 120 mls @ 400 mls/hr IV NOW ONE Stop: 06/20/21 16:58 Last Admin: 06/20/21 17:58 Dose: 400 mls/hr Documented by: [id number] Medical Decision Making Laboratory Data Result diagrams: 06/20/21 16:10 06/20/21 16:10 Lab Results 06/20/21 06/20/21 06/20/21 Range/Units 16:10 16:10 16:10 WBC 4.83 (4.8-10.8) K/uL RBC 1.96 L (4.7-6.1) M/uL Hgb 5.8 L* (14.0-18.0) g/dL Hct 18.2 L* (42-52) % MCV 92.9 (80-100) fL MCH 29.6 (25-34) pg MCHC 31.9 L (32-36) g/dL RDW Std Deviation 64.7 H (36.4-46.3) fL RDW Coeff of Miguel 19.0 H (11.5-14.5) % Plt Count 86 L (130-400) K/uL MPV 9.5 (7.4-10.4) fL PT 13.1 H (9.0-12.0) Seconds INR 1.2 H (0.9-1.1) APTT 22.5 (21.0-31.0) Seconds PTT Ratio 0.8 Sodium 139 (136-145) mmol/L Potassium 2.9 L (3.5-5.1) mmol/L Chloride 105 (98-107) mmol/L Carbon Dioxide 28 (21-32) mmol/L Anion Gap 6 (3-11) BUN 21 (6-23) mg/dl Creatinine 1.95 H (0.6-1.4) mg/dl Est Cr Clr Drug Dosing 49.6 ml/min Est GFR ( Amer) 40.1 ml/min Est GFR (Non-Af Amer) 34.6 ml/min BUN/Creatinine Ratio 10.8 (10-20) Glucose 138 H (70-99(Fasting)) mg/dl Calcium 8.1 L (8.5-10.1) mg/dl Total Bilirubin 1.5 H (0.2-1.0) mg/dl AST 26 (13-39) U/L ALT 12 (7-52) U/L Alkaline Phosphatase 106 H (34-104) U/L Total Protein 6.0 (6.0-8.3) gm/dl Albumin 2.4 L (3.4-5.0) gm/dl Globulin 3.6 (2.5-4.0) gm/dl Albumin/Globulin Ratio 0.7 L (0.9-2) SARS-CoV-2, RNA, NAAT (NEGATIVE) Blood Type Antibody Screen Crossmatch 06/20/21 06/20/21 Range/Units 16:16 16:21 WBC (4.8-10.8) K/uL RBC (4.7-6.1) M/uL Hgb (14.0-18.0) g/dL Hct (42-52) % MCV (80-100) fL MCH (25-34) pg MCHC (32-36) g/dL RDW Std Deviation (36.4-46.3) fL RDW Coeff of Miguel (11.5-14.5) % Plt Count (130-400) K/uL MPV (7.4-10.4) fL PT (9.0-12.0) Seconds INR (0.9-1.1) APTT (21.0-31.0) Seconds PTT Ratio Sodium (136-145) mmol/L Potassium (3.5-5.1) mmol/L Chloride (98-107) mmol/L Carbon Dioxide (21-32) mmol/L Anion Gap (3-11) BUN (6-23) mg/dl Creatinine (0.6-1.4) mg/dl Est Cr Clr Drug Dosing ml/min Est GFR ( Amer) ml/min Est GFR (Non-Af Amer) ml/min BUN/Creatinine Ratio (10-20) Glucose (70-99(Fasting)) mg/dl Calcium (8.5-10.1) mg/dl Total Bilirubin (0.2-1.0) mg/dl AST (13-39) U/L ALT (7-52) U/L Alkaline Phosphatase (34-104) U/L Total Protein (6.0-8.3) gm/dl Albumin (3.4-5.0) gm/dl Globulin (2.5-4.0) gm/dl Albumin/Globulin Ratio (0.9-2) SARS-CoV-2, RNA, NAAT NEGATIVE (NEGATIVE) Blood Type O Positive Antibody Screen NEGATIVE Crossmatch See Detail ECG Data Indication: weakness Rate (beats per minute): 90 Rhythm: normal sinus Findings: + prolonged QT; no ST depression or no ST elevation MDM Narrative Patient was seen during a time of extreme volume and extreme acuity during the COVID-19 pandemic. Nursing triage protocols were initiated and labs were drawn by protocol in the triage area. EMR reviewed. Patient's hemoglobin was found to be 5.7 earlier today. We will plan on transfusing patient's PURBC and start the patient on Protonix bolus and drip and [facility]. Impression & Plan Prolonged QT interval, GI bleed Critical Care Time Critical Care Time: Yes Total Critical Care Time: 43 I have personally spent greater than 43 minutes of critical care time in the direct management of this patient. This includes bedside care, interpretation of diagnostic studies, and testing, discussion with consultants, patient, and family members, and other required patient management activities. This 43 minutes is in excess of all separately billable procedures. Discharge Plan Visit Data Chief Complaint: Weakness Stated Complaint: DR VELÁSQUEZ, LIGHT HEADED, WEAK ED Provider: Parker Cruz Forms Stand Alone Forms: My [facility] Prescriptions Prescriptions: No Action metoprolol succinate 25 mg tablet extended release 24 hr 25 mg PO QAM Qty: 90 RF: 3 cholecalciferol (vitamin D3) 50 mcg (2,000 unit) capsule 50 mcg PO QAM Qty: 90 RF: 3 potassium chloride 20 mEq tablet extended release 20 meq PO BID Qty: 60 RF: 2 furosemide 20 mg tablet 40 mg PO BID Qty: 360 RF: 2 chlorhexidine gluconate [Peridex] 0.12 % mouthwash 15 ml buccal BID Qty: 473 RF: 2 Humira(CF) Pen 40 mg/0.4 mL pen injector kit 40 mg subcut Q14D Qty: 2 RF: 2 Aranesp (in polysorbate) 60 mcg/0.3 mL syringe 60 mcg subcut .COMPLEX RF: 0 betamethasone dipropionate 0.05 % ointment 1 applic topical DIRECTED PRN (Reason: Skin Irritation) RF: 0 pantoprazole 40 mg Tablet,Delayed Release (Dr/Ec) 40 mg PO BID Qty: 60 RF: 0
[2021-06-20] MEDS: PANTOprazole 40 MG in DEXTROSE 5% 100 ML IV SCH ×2 (18:30→22:12)
[2021-06-20] MEDS ORDERED: ONDANSETRON INJ 2 MG/ML 2 ML VIAL IV PRN (18:51)
[2021-06-20] MEDS ORDERED: PROMETHAZINE HCL 12.5 MG in SODIUM CHLORIDE 0.9% 50 ML IV PRN (20:19)
[2021-06-20] MEDS ORDERED: cefTRIAXone SODIUM 2,000 MG in DEXTROSE 5% 50 ML IV SCH (21:00)
[2021-06-20] MEDS: POTASSIUM CHLORIDE / WTR 10 MEQ/100 ML PLCT IV SCH ×2 (22:52→23:55)
[2021-06-20] MEDS: cefTRIAXone SODIUM 2,000 MG in DEXTROSE 5% 50 ML IV SCH (22:52)
[2021-06-20 23:48] LABS: Hematocrit (blood only) 21.3 % (42-52); Hemoglobin 6.7 g/dL (14.0-18.0)
[2021-06-21] MEDS ORDERED: SODIUM CHLORIDE 0.9% 250 ML IV PRN (00:03)
[2021-06-21] MEDS: POTASSIUM CHLORIDE / WTR 10 MEQ/100 ML PLCT IV SCH ×7 (01:00→11:30)
--- NOTE | 2021-06-21 02:11 | Communication Note ---
Date of Service: June 21, 2021 Repeat H&H returned at 6.7. Informed by patient's RN that vitals have remained stable - BP 126/65, HR 75, SpO2 98% on RA. Denying dizziness, SOB even when transferred to wheel chair. Reviewed his chart. Received 2U to date. Transfuse 1U pRBC now. Informed blood bank that it is possible further transfusions may be required. Repeat H&H around 0500. Resident Activity Tracking Resident Involvement: Resident Care Provided Care Provided: Adult Hospital Medicine
[2021-06-21] MEDS: PANTOprazole 40 MG in DEXTROSE 5% 100 ML IV SCH ×5 (03:00→22:06)
[2021-06-21] MEDS: LACTATED RINGER'S 1,000 ML IV SCH ×2 (05:00→11:30)
[2021-06-21 06:50] LABS: Albumin Globulin Ratio 0.7 (0.9-2); Albumin Level 2.1 gm/dl (3.4-5.0); BUN Creatinine Ratio 10.7 (10-20); Bilirubin,Total 2.4 mg/dl (0.2-1.0); Calcium 7.8 mg/dl (8.5-10.1); Est GFR (African American) 47.7 ml/min; Est GFR (Non-African American) 41.1 ml/min; Globulin 3.1 gm/dl (2.5-4.0); Magnesium 1.7 mg/dl (1.7-2.4); Phosphorus 2.6 mg/dl (2.5-4.9); Potassium 3.1 mmol/L (3.5-5.1); Total Protein 5.2 gm/dl (6.0-8.3)
--- NOTE | 2021-06-21 08:11 | CT Scan Report ---
CT abd pelvis wo con CLINICAL HISTORY: nause, LLW pain with Hgb 5.8 TECHNIQUE: Helical axial images of the abdomen and pelvis were obtained. Automated dose lowering tech niques and/or adjustment according to patient size were utilized for this exam. This exam was perfor med without intravenous contrast. CT DOSE: 1755.87 mGy.cm COMPARISON: Comparison is made to CT abdomen pelvis 05/10/2021 FINDINGS: Lower chest: Bibasilar atelectasis versus scarring is seen. Liver: Nodular contour of the liver is seen compatible with cirrhosis. Gallbladder and biliary tree: Patient is status post cholecystectomy. No intra- or extrahepatic bilia ry ductal dilation. Pancreas: Unremarkable, no focal lesions. Spleen: Unremarkable. Adrenals: Unremarkable. Kidneys and ureters: Nonobstructive nephrolithiasis is seen. Bladder: Limited evaluation due to underdistention. Reproductive organs: Unremarkable. Bowel: The stomach is underdistended, apparent wall thickening is likely artifactual. Lymph nodes Retroperitoneal: Subcentimeter lymph nodes are noted. Mesenteric: Subcentimeter lymph nodes are noted. Pelvic: Unremarkable. Peritoneum: A trace amount of ascites is seen. Vessels: Collaterals are seen about the stomach and spleen. There is recanalization of the umbilical artery. Abdominal wall: Mild anasarca is seen. Bones: Degenerative changes in the visualized spine. IMPRESSION: Findings of cirrhosis and portal hypertension are noted. No evidence of acute abnormality is seen. ACT 112: Negative or not required by law. Electronically signed by: Otto Chilel M.D. 06/21/2021 8:10 AM
[2021-06-21] MEDS ORDERED: POTASSIUM CHLORIDE CRTAB 20 MEQ TABCR PO STA (08:39)
[2021-06-21 08:51] LABS: Hematocrit (blood only) 22.4 % (42-52); Hemoglobin 7.2 g/dL (14.0-18.0); Mean Corpuscular Hemoglobin 28.9 pg (25-34); Mean Corpuscular Hgb Conc 32.1 g/dL (32-36); Nucleated RBC # (auto) 0.02 K/uL (0-0); Nucleated RBC % (auto) 0.7 %; RDW Coefficient of Variation 18.4 % (11.5-14.5); RDW Standard Deviation 59.9 fL (36.4-46.3); Red Blood Count 2.49 M/uL (4.7-6.1); White Blood Count 3.12 K/uL (4.8-10.8)
[2021-06-21 09:14] LABS: Basophils # (auto) 0.02 K/uL (0-0.2); Basophils % (auto) 0.6 %; Eosinophils # (auto) 0.17 K/uL (0-0.5); Eosinophils % (auto) 5.4 %; Immature Granulocytes # (auto) 0.01 K/uL (0.00-0.02); Immature Granulocytes % (auto) 0.3 %; Lymphocytes # (auto) 0.88 K/uL (1.2-3.4); Lymphocytes % (auto) 28.2 %; Mean Platelet Volume 9.7 fL (7.4-10.4); Monocytes # (auto) 0.44 K/uL (0.11-0.59); Monocytes % (auto) 14.1 %; Neutrophils % (auto) 51.4 %; Platelet Count 62 K/uL (130-400)
[2021-06-21 09:25] LABS: Platelet Estimate Decreased (Normal); Polychromasia 1+
--- NOTE | 2021-06-21 10:02 | Gastrointestinal Consultation ---
Date of Consultation June 21, 2021 Assessment & Plan (1) Liver cirrhosis secondary to HO: (2) Symptomatic anemia: Pt is a 66 yo male admitted w symptomatic anemia, improved blood ct after 3U PRBC transfusion. Hx of HO cirrhosis (MELD 16), severe portal hypertensive gastropathy found during EGD last month (clip placed on antral oozing area), hx of colonic angioectasia s/p APC treatment in 2018. He denies santino signs of hematemesis, melena though stool was heme positive when checked in ED. - CL diet today - NPO after midnight for EGD eval tomorrow - Continue PPI gtt and Ceftriaxone IV for SBP prophylaxis in setting of GI bleeding. - After his last admission, he was started on Metoprolol. Would recommend switching to non selective beta chinedu (Nadolol, Propranolol, Carvedilol) instead for GI bleeding prevention 2/2 portal HTN - Monitor blood ct and transfuse prn Supervising Physician Co-Signing Physician Notes 66 yo male with a history of ho cirrhosis, meld currently 16, admitted with reports of weakness found to have a drop in hgb, recent egda little over a month ago with severe phg with an oozing area s/p clip, was placed on a beta chinedu post that admission, now admitted as stated. Hgb has improved after blood tranfusion, hgb is over 7 today No overt bleeding noted since admission - no hematemesis, no hematochezia PE - elderly bald male in no acute distress, HEENT - perrla, Resp- normal, abd: obese no palpable ascites CT/labs reviewed Agree with change to a nonselective beta chinedu and EGD tomorrow, continueIV ppi and ceftriaxone for sbp prophylaxis. History of Present Illness Reason for Consultation: Anemia, history of cirrhosis anemia, history of cirrhosis Requesting Physician: Dr. Lamine Davis Attending Physician: Dr. Harriet Fernandez History of Present Illness Pt is a 66 yo male who was referred to the ER yesterday for outpatient hemoglobin of 5. He had symptoms of intermittent confusion, weakness, dizziness and shortness of breath with exertion. History of Ho cirrhosis, was just admitted last month with anemia. At that time EGD was performed. It revealed portal hypertensive gastropathy, 1 clip was placed and oozing area in the antral part of the stomach. Normal exam of the duodenal areas. 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 Work-up during admission showed hemoglobin of 5.8, hematocrit 22. He was given 3 units of PRBC transfusion, with good response on his blood count. Platelet was 62, INR 1.2. BUN normal at 18, creatinine 1.6. LFTs: T bili was 2.4, AST, ALT 24, 9 respectively, alkaline phosphatase 76. Calculated meld score 16. Ammonia level 89. Patient reports that today he feels so much better, not as tired. He denies any chest pain or shortness of breath, abdominal pain, nausea or vomiting. His last bowel movement was yesterday which was brown in color however was heme positive when checked in the ER. CT abd/pelvis wo contrast: Findings of cirrhosis and portal hypertension are noted. No evidence of acute abnormality is seen. Allergies Allergy/AdvReac Type Severity Reaction Status Date / Time tamsulosin Allergy Intermediate HIVES Verified 06/20/21 17:09 etanercept [From Enbrel] AdvReac Unknown Increased Verified 06/20/21 17:09 infections Home Medications Medication Instructions Recorded Confirmed Type furosemide 20 mg tablet 40 mg PO BID #360 tab 06/23/20 06/20/21 Rx chlorhexidine gluconate 0.12 % 15 ml BUCCAL BID #473 ml 09/28/20 06/20/21 Rx mouthwash (Peridex) metoprolol succinate 25 mg 25 mg PO QAM #90 tab 03/23/21 06/20/21 Rx tablet,extended release 24 hr adalimumab 40 mg/0.4 mL 40 mg SUBCUT Q14D #2 ea 04/06/21 06/20/21 Rx subcutaneous pen kit (Humira(CF) Pen) betamethasone dipropionate 0.05 % 1 applic TOPICAL DIRECTED PRN 05/10/21 06/20/21 History topical ointment pantoprazole 40 mg tablet,delayed 40 mg PO BID #60 tab 05/13/21 06/20/21 Rx release cholecalciferol (vitamin D3) 50 50 mcg PO QAM #90 cap 05/15/21 06/20/21 Rx mcg (2,000 unit) capsule potassium chloride 20 mEq 20 meq PO BID #60 tab 05/30/21 06/20/21 Rx tablet,extended release darbepoetin coretta in polysorbat 60 60 mcg SUBCUT .COMPLEX syr 04/26/22 04/26/22 History mcg/0.3 mL in polysorbate injection syringe (Aranesp) Patient History Medical History CKD (chronic kidney disease), stage III Gastritis GAVE (gastric antral vascular ectasia) Per records GERD (gastroesophageal reflux disease) History of SCC (squamous cell carcinoma) of skin S/p removal- follows with derm Hypertension Hypothyroidism Liver cirrhosis secondary to HO Oral mucositis On mouthwash daily- no recent issues Pancytopenia Psoriasis Psoriatic arthritis PSVT (paroxysmal supraventricular tachycardia) PVT (portal vein thrombosis) denies Spinal stenosis EPIDURAL INJECTIONS IN PAST FOR PAIN RELIEF TMJ arthralgia Urinary retention Vitamin D deficiency Wide-complex tachycardia ON METOPROLOL-F/U DR VANESSA Surgical History H/O foot surgery excision of neuroma b/l feet History of appendectomy History of arthroscopy RT KNEE History of cataract surgery RT/LEFT History of cholecystectomy History of esophagogastroduodenoscopy (EGD) History of herniorrhaphy right inguinal History of lithotripsy History of liver biopsy History of repair of rotator cuff RT/LEFT History of tooth extraction History of urologic surgery [place] [facility] [place]a and vomiting after administration of anesthetic agent S/P epidural steroid injection S/P orchiectomy Right age 9 for UDT S/P urological surgery (2018) BMG [facility]throplasty[place] [place] Suprapubic catheter AND REMOVAL Family History Grandmother (Maternal) Diabetes Father Renal cancer Mother Aortic aneurysm Denies family history of Ovarian cancer Prostate cancer Myocardial infarction Breast cancer Colorectal cancer Social History Smoking Status: Unknown if ever smoked Second Hand Exposure: No; Do You Dip or Chew Tobacco: No; Tobacco Cessation Education Requested by Patient: No Hx Alcohol Use: No Hx Substance Use: No Preferred Language: Vietnamese Communication Ability: Effective Visual Impairment: No Limitations Hearing Ability: Hard of Hearing 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 Beliefs That Will Affect Care: None marital status: / Current Living Situation: Spouse Current Living Situation Comment: SON LIVING WITH PT CURRENTLY current occupational status: retired How many Children do You have: 1 Other Information That Helps Us Care for You: No Feels Safe at Home: Yes Safety Concerns: Feels Safe At This Time caffeine: Yes during the past year weight has: increased > 10 lbs Dental Care, Regularly: No Physical Activity Frequency: Other Physical Activity Frequency Comment: currently can not excercise due to physical condition Seatbelt Use: never Sunscreen Use: No Assistive Devices: None Review of Systems Review of Systems: All systems reviewed & are unremarkable except as noted in HPI & below Physical Exam Constitutional: WD/WN, vitals as above well groomed, cooperative and comfortable Eyes: PERRL, conjunctivae normal, anicteric sclerae ENMT: external ear and nose normal, oropharynx normal Respiratory: normal respiratory effort, lungs clear to auscultation Cardiovascular: RRR, no murmur, no edema Gastrointestinal (Abdomen): normal bowel sounds, soft, nontender, no hepatosplenomegaly Skin: no rashes, warm and dry no jaundice Psychiatric: A+Ox3, euthymic affect Lymphatic: no lymphedema Results & Data ([facility]) Vital Signs (Past 12 Hours) Vital Signs Temp Pulse Pulse Resp BP BP Pulse Ox 06/21/21 08:00 63 06/21/21 07:00 37.2 C 74 20 106/62 99 06/21/21 03:07 36.8 C 63 16 124/66 96 06/21/21 02:22 36.6 C 74 16 131/72 98 06/21/21 01:22 36.6 C 75 14 136/57 L 98 06/21/21 00:52 36.7 C 75 16 134/61 99 06/21/21 00:37 36.6 C 75 16 128/67 100 06/21/21 00:20 36.6 C 70 14 134/65 100 06/20/21 22:18 36.6 C 78 18 121/59 L 99
--- NOTE | 2021-06-21 10:12 | Electrocardiogram Report ---
Test Reason : Blood Pressure : / mmHG Vent. Rate : 090 BPM Atrial Rate : 090 BPM P-R Int : 170 ms QRS Dur : 108 ms QT Int : 414 ms P-R-T Axes : 017 -11 021 degrees QTc Int : 506 ms Normal sinus rhythm Low voltage QRS Prolonged QT Abnormal ECG When compared with ECG of 01-JUN-2021 19:06, T wave inversion no longer evident in Anterior leads Confirmed by Dc Phillips ([id number]) on 06/21/2021 10:11:56 AM Referred By: Fiorella Castellano Confirmed By:Dc Phillips
--- NOTE | 2021-06-21 15:22 | XRay Report ---
XR chest 1V portable CLINICAL HISTORY: shortness of breath. TECHNIQUE: Single frontal radiograph of the chest was obtained. Comparison: Comparison is made to chest one view 06/01/2028 2 FINDINGS: No lines and tubes are seen. The cardiomediastinal silhouette is normal. The lungs are clear. No evid ence of pleural effusion or pneumothorax. IMPRESSION: No acute chest disease. ACT 112: Negative or not required by law. Electronically signed by: Otto Chilel M.D. 06/21/2021 3:21 PM
[2021-06-21] MEDS ORDERED: FUROSEMIDE 40 MG/4 ML VIAL IV STA (16:51)
[2021-06-21] MEDS: cefTRIAXone SODIUM 2,000 MG in DEXTROSE 5% 50 ML IV SCH (20:14)
--- NOTE | 2021-06-21 21:45 | Hospitalist Progress Note ---
Date of Service June 21, 2021 Assessment & Plan (1) Symptomatic anemia: Plan: - VS stable, wnl. Hgb 5.8, no obvious bleeding denies hematemesis/melena/hematochezia. Stool guaiac + in ED. - Very likely due to GI bleed, suspect upper given his history of poorly control led GERD with portal hypertensive gastropathy, gastritis. Also has cirrhosis with portal htn. - Protonix bolus with drip started in ED. -IVF stopped given patient has ascitires and is fluid retaining. -will order 40 mg of IV lasix. unsure why patient no longer on spironolactone. -hemoglonbin did improve to 7.2 -plan for scope tomorrow, NPO. -S/P 3 units - CT A/P ordered. - [facility] consulted, appreciate their recommendations. - CBC in AM. - EGD on 05/11: Severe antral portal hypertensive gastropathy. One clip (MR conditional) was placed on an oozing area within the area noted to have severe antral portal hypertensive gastropathy (2) 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: Plan: - CT A/P on 05/11 noted cirrhosis with stigmata of portal venous hypertension including splenomegaly with small volume of abdominal pelvic ascites. - D/c'd with lactulose BID however stopped taking it after several days as he was already having 3-4 BMs/day before starting it, felt he should not take it. - Had 1 week of waxing/waning confusion after discharge last month, presented to ED on 06/01 for this at that time his ammonia level was wnl. CT without acute findings. Today ammonia is 89, he is AAOx4, no episodes of confusion in weeks. - Was started on metoprolol ER 25mg upon d/c for portal hypertension. Cannot tolerate higher dose. - Lasix 40 mg twice daily with KCl 20 mEq twice daily. - Has gained ~15 lbs despite Lasix and decreased appetite, will start empiric coverage for SBP with Rocephin 1g q12h given ascites and known cirrhosis. - GI consulted. Will need GI/hepatology f/u upon discharge. - CMP daily. Possible spontaneous bacterial peritonitis Patient being treated empirically. Started in ED. will continue and complete course of rocephin. (3) GERD (gastroesophageal reflux disease): Plan: - Poorly controlled since 2020 when he was on PO steroids. - Has been on Protonix twice daily since discharge last month. Protonix drip w/ bolus started in ED, will continue unless recommended otherwise by GI. (4) Hypokalemia: Plan: - replenished. will repeat in AM (5) Pancytopenia: Plan: - Secondary to liver disease, he follows with Hematology routinely. - repleated with PRBC. will recheck in AM. (6) CKD (chronic kidney disease), stage III: Plan: - Follows with [facility] nephrology - Creatinine 1.95 in ED baseline 1.5-1.9 - NPO for now, when taking PO intake, can continue KCl 40 mEq twice daily in the setting of loop diuretic use - repleted and will monitor K - Continue Phos NaK due to chronic hypophosphatemia - Avoid nephrotoxins, renally dose medications as able. - Monitor CMP, phosphorus level (7) Hypertension: Plan: - Normotensive on admission, takes metoprolol ER 25mg daily for portal htn, cannot tolerate a higher dose due to fatigue, dizziness. - Continue to monitor. (8) Psoriatic arthritis: Plan: - Adalimumab injection every 2 weeks. (9) Hypothyroidism: Plan: - Not currently taking medication for this. (10) Spinal stenosis: Plan: - Chronic, has cervicalgia, with ongoing left arm numbness/tingling for 1-2 months. - No acute needs. (11) Vitamin D deficiency: Plan: - Can continue Vit D supplementation when pt taking PO intake. Plan: - PCU. - SCDs, chemopxx contraindicated in setting of acute bleed. - DNR/DNI. I did discuss this with patient and his son who is at bedside, patient specified he does not wan CPR, standard ACLS protocol, defibrillation, or intubation in the event that he were to cardiac arrest. Admission and Anticipated Discharge Date Admission Date: June 20, 2021 Subjective 66 yo male reports feeling better. However he is complaining of fluid retaining, with his hands and feet having significant edema. Review of Systems Review of Systems: All systems reviewed & are unremarkable except as noted in HPI & below Physical Exam Physical Exam: General: awake, alert, no apparent distress Head: Normocephalic, atraumatic ENT: PERRL, EOMI, no pharyngeal exudate, mucous membranes moist Chest: wheezing, on room air, Cardiac: Regular rate and rhythm, no murmur, no JVD, normal peripheral pulses, good capillary refill Abdominal: NABS x 4 quadrants, soft, nontender to palpation, no rebound, guarding or tenderness Extremities: Normal inspection, no peripheral edema or erythema, calfs nontender to palpation Psych: Normal mood and affect Neuro: AAO x 3, strength intact bilaterally and rated 5/5, no motor deficits, speech is clear, no peripheral sensory deficits Skin: with pallor; no rash or erythema Results & Data Results & Data ([facility]) Vital Signs (Past 12 Hours) Vital Signs Temp Pulse Pulse Resp BP Pulse Ox 06/21/21 19:00 36.6 C 75 16 132/70 100 06/21/21 16:00 63 06/21/21 15:00 36.6 C 70 20 123/66 98 06/21/21 11:00 36.4 C L 80 20 109/59 L 98 PG Care Time/CCT Total # of Minutes Spent Total Time Spent with Patient: Total time spent is greater than 50% in coordination of care (as documented) at patient's floor/unit and/or counseling patient: Coding Level of Care Code 32413 Subseq Hosp Care Lvl 3 Diagnoses Symptomatic anemia D64.9 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 K75.81; K74.60 GERD (gastroesophageal reflux disease) K21.9 Hypokalemia E87.6 Pancytopenia D61.818 CKD (chronic kidney disease), stage III N18.3 Hypertension I10 Psoriatic arthritis L40.50 Hypothyroidism E03.9 Spinal stenosis M48.00 Vitamin D deficiency E55.9
[2021-06-22] MEDS: PANTOprazole 40 MG in DEXTROSE 5% 100 ML IV SCH ×3 (03:24→14:27)
[2021-06-22 08:04] LABS: Hematocrit (blood only) 22.7 % (42-52); Hemoglobin 7.6 g/dL (14.0-18.0); Mean Corpuscular Hemoglobin 30.3 pg (25-34); Mean Corpuscular Volume 90.4 fL (80-100); RDW Coefficient of Variation 18.5 % (11.5-14.5); RDW Standard Deviation 60.4 fL (36.4-46.3); Red Blood Count 2.51 M/uL (4.7-6.1); White Blood Count 2.96 K/uL (4.8-10.8)
[2021-06-22 08:06] LABS: Mean Corpuscular Hgb Conc 33.5 g/dL (32-36); Platelet Count 64 K/uL (130-400)
[2021-06-22 08:27] LABS: Calcium 8.1 mg/dl (8.5-10.1); Creatinine Clr Calc Pharmacy 60.2 ml/min; Est GFR (African American) 50.9 ml/min; Est GFR (Non-African American) 43.9 ml/min
[2021-06-22 08:35] LABS: Potassium 3.1 mmol/L (3.5-5.1)
--- NOTE | 2021-06-22 08:50 | Gastroenterology Progress Note ---
Date of Service June 22, 2021 Assessment & Plan (1) 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: (2) Symptomatic anemia: Plan: Pt is a 66 yo male admitted w symptomatic anemia, improved blood ct after 3U PRBC transfusion. Hx of SERRANO cirrhosis (MELD 16), severe portal hypertensive gastropathy found during EGD last month (clip placed on antral oozing area), hx of colonic angioectasia s/p APC treatment in 2018. He denies santino signs of hematemesis, melena though stool was heme positive when checked in ED. NPO since midnight for planned EGD today. Black stools overnight but no abd pain, n/v. Blood ct this AM 09/15. - Keep NPO for EGD eval today - Continue PPI gtt and Ceftriaxone IV for SBP prophylaxis in setting of GI bleeding. - After his last admission, he was started on Metoprolol. Would recommend switching to non selective beta chinedu (Nadolol, Propranolol, Carvedilol) instead for GI bleeding prevention 2/2 portal HTN - Monitor blood ct and transfuse prn Admission and Anticipated Discharge Date Admission Date: June 20, 2021 Subjective Pt reports 1 BM last night, black stools. Denies CP, SOB, abd pain, n/v. He is having swelling on his extremities, given Lasix. Review of Systems Review of Systems: All systems reviewed & are unremarkable except as noted in HPI & below Physical Exam Constitutional: WD/WN, vitals as above well groomed, cooperative and comfortable Eyes: PERRL, conjunctivae normal, anicteric sclerae ENMT: external ear and nose normal, oropharynx normal Respiratory: normal respiratory effort, lungs clear to auscultation Cardiovascular: HRR, no murmurs/gallops, + edema on bilateral upper and lower extremities Gastrointestinal (Abdomen): normal bowel sounds, soft, nontender, no hepatosplenomegaly Skin: no rashes, warm and dry no jaundice Psychiatric: A+Ox3, euthymic affect Results & Data ([facility]) Vital Signs (Past 12 Hours) Vital Signs Temp Pulse Pulse Resp BP Pulse Ox 06/22/21 03:00 36.6 C 88 16 112/60 96 06/22/21 00:00 85 06/21/21 23:00 36.7 C 89 16 112/53 L 97
--- NOTE | 2021-06-22 10:40 | Anesthesiology Consultation ---
Date of Service June 22, 2021 Assessment & Plan (1) Encounter for pre-operative examination: Chart Review Chart Review: Acceptable Risk for Surgery, Patient NOT seen in Pre Admission Testing and clerk entry level initiated Consults Requested none ASA ASA3 Proposed Anesthesia Anesthesia Type: MAC Risk / Benefits Reviewed With: PT / POA / Parent / Guardian, Accepts Plan and Informed Consent Obtained History Surgery Operation Date: 06/22/21 16:30 Proposed Procedures p Esophagogastroduodenoscopy Dr. Jim Fernandez MD Height/Weight Height: 5 ft 9 in Weight: 131.3 kg Allergies Allergy/AdvReac Type Severity Reaction Status Date / Time tamsulosin Allergy Intermediate HIVES Verified 06/20/21 17:09 etanercept [From Enbrel] AdvReac Unknown Increased Verified 06/20/21 17:09 infections Medications Home Medications Medication Instructions Recorded Confirmed Last Taken furosemide 20 mg tablet 40 mg PO BID #360 tab 06/23/20 06/20/21 06/20/21 chlorhexidine gluconate 0.12 % 15 ml BUCCAL BID #473 ml 09/28/20 06/20/21 06/20/21 mouthwash (Peridex) metoprolol succinate 25 mg 25 mg PO QAM #90 tab 03/23/21 06/20/21 06/20/21 tablet,extended release 24 hr adalimumab 40 mg/0.4 mL 40 mg SUBCUT Q14D #2 ea 04/06/21 06/20/21 06/08/21 subcutaneous pen kit (Humira(CF) Pen) betamethasone dipropionate 0.05 % 1 applic TOPICAL DIRECTED PRN 05/10/21 06/20/21 Unknown topical ointment pantoprazole 40 mg tablet,delayed 40 mg PO BID #60 tab 05/13/21 06/20/21 06/20/21 release cholecalciferol (vitamin D3) 50 50 mcg PO QAM #90 cap 05/15/21 06/20/21 06/20/21 mcg (2,000 unit) capsule potassium chloride 20 mEq 20 meq PO BID #60 tab 05/30/21 06/20/21 06/20/21 tablet,extended release darbepoetin coretta in polysorbat 60 60 mcg SUBCUT .COMPLEX syr 06/20/21 06/20/21 Unknown mcg/0.3 mL in polysorbate injection syringe (Aranesp) Active Medications Generic Name Dose Route Start Last Admin Trade Name Freq PRN Reason Stop Dose Admin Pantoprazole Sodium 40 mg/ 100 mls @ 20 mls/hr 06/20/21 17:00 06/22/21 07:57 Dextrose IV 07/20/21 16:59 8 mg/hr Q5H LUZ 20 mls/hr Administration 8 MG/HR Ceftriaxone Sodium 2,000 mg/ 70 mls @ 100 mls/hr 06/20/21 20:30 06/21/21 21:33 Dextrose IV 06/30/21 20:29 Infused Q24H LUZ Infusion Protocol NPO Date Last Intake of Fluids: 06/20/21 Date Last Intake of Solids: 06/20/21 Past Medical History Medical History (Updated 06/22/21 @ 10:42 by Gwyn Greco MD) CKD (chronic kidney disease), stage III Encounter for pre-operative examination Gastritis GAVE (gastric antral vascular ectasia) Per records GERD (gastroesophageal reflux disease) History of SCC (squamous cell carcinoma) of skin S/p removal- follows with derm Hypertension Hypothyroidism 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 Oral mucositis On mouthwash daily- no recent issues Pancytopenia Psoriasis Psoriatic arthritis PSVT (paroxysmal supraventricular tachycardia) PVT (portal vein thrombosis) denies Spinal stenosis EPIDURAL INJECTIONS IN PAST FOR PAIN RELIEF TMJ arthralgia Urinary retention Vitamin D deficiency Wide-complex tachycardia ON METOPROLOL-F/U DR VANESSA Past Family History Family History Grandmother (Maternal) Diabetes Father Renal cancer Mother Aortic aneurysm Denies family history of Ovarian cancer Prostate cancer Myocardial infarction Breast cancer Colorectal cancer Past Surgical History Surgical History H/O foot surgery excision of neuroma b/l feet History of appendectomy History of arthroscopy RT KNEE History of cataract surgery RT/LEFT History of cholecystectomy History of esophagogastroduodenoscopy (EGD) History of herniorrhaphy right inguinal History of lithotripsy History of liver biopsy History of repair of rotator cuff RT/LEFT History of tooth extraction History of urologic surgery Urethral reconstruction [place] [facility] Nausea and vomiting after administration of anesthetic agent S/P epidural steroid injection S/P orchiectomy Right age 9 for UDT S/P urological surgery (2018) BMG urethroplasty-[facility] Suprapubic catheter AND REMOVAL Social History Smoking Status: Unknown if ever smoked Do You Dip or Chew Tobacco: No Hx Alcohol Use: No Hx Substance Use: No substance use type: does not use Physical Exam Vital Signs Last Vital Signs Temp 37 C 06/22/21 09:00 Pulse 70 06/22/21 09:00 Resp 18 06/22/21 09:00 BP 131/77 06/22/21 09:00 Pulse Ox 94 06/22/21 09:00 Testing Laboratory Results 06/22/21 07:52 06/22/21 07:17 PT 13.1 Seconds (9.0-12.0) H 06/20/21 16:10 INR 1.2 (0.9-1.1) H 06/20/21 16:10 APTT 22.5 Seconds (21.0-31.0) 06/20/21 16:10 Blood Type O Positive 06/20/21 16:21 Antibody Screen NEGATIVE 06/20/21 16:21 Electrocardiogram Date: 06/20/21 Test Reason : Blood Pressure : / mmHG Vent. Rate : 090 BPM Atrial Rate : 090 BPM P-R Int : 170 ms QRS Dur : 108 ms QT Int : 414 ms P-R-T Axes : 017 -11 021 degrees QTc Int : 506 ms Normal sinus rhythm Low voltage QRS Prolonged QT Abnormal ECG When compared with ECG of 01-JUN-2021 19:06, T wave inversion no longer evident in Anterior leads Confirmed by Dc Phillips ([id number]) on 06/21/2021 10:11:56 AM Chest X-Ray Date: 06/21/21 CLINICAL HISTORY: shortness of breath. TECHNIQUE: Single frontal radiograph of the chest was obtained. Comparison: Comparison is made to chest one view 06/01/2028 2 FINDINGS: No lines and tubes are seen. The cardiomediastinal silhouette is normal. The lungs are clear. No evidence of pleural effusion or pneumothorax. IMPRESSION: No acute chest disease.
[2021-06-22] MEDS ORDERED: KETAMINE 50 MG/5 ML SYRINGE ONE (10:59)
--- NOTE | 2021-06-22 11:03 | History & Physical Bridge Note ---
Date of Service June 22, 2021 History & Physical Bridge Note I have examined the patient, reviewed the History & Physical and in the interval since the performance of the History & Physical I have noted the following changes of clinical significance: no changes noted
--- NOTE | 2021-06-22 11:25 | GI REPORT ---
Patient Name: Sebastian Quiñonez Procedure Date: 06/22/2021 10:48 AM Date of : 1955 Admit Type: Inpatient Age: 66 Gender: Male Attending MD: Harriet Fernandez M.d. Procedure: Upper GI endoscopy Providers: Harriet Fernandez M.d. Referring MD: Fiorella Castellano Indications: Anemia Medicines: See anesthesia record Complications: No immediate complications. Estimated Blood Loss: Estimated blood loss: none. Procedure: Pre-Anesthesia Assessment: - Patient identification and proposed procedure were verified prior to the procedure by the physician, the nurse and the anesthesiologist. The procedure was verified in the pre-procedure area. - Prior to the procedure, a History and Physical was performed, and patient medications, allergies and sensitivities were reviewed. The patient's tolerance of previous anesthesia was reviewed. - The risks and benefits of the procedure and the sedation options and risks were discussed with the patient. All questions were answered and informed consent was obtained. After obtaining informed consent, the endoscope was passed under direct vision. Throughout the procedure, the patient's blood pressure, pulse, and oxygen saturations were monitored continuously. The Endoscope was introduced through the mouth, and advanced to the second part of duodenum. The upper GI endoscopy was accomplished without difficulty. The patient tolerated the procedure well. Findings: The examined esophagus appeared normal. No evidence of esophageal varcies was noted. The Z-line appeared regular. Mild portal hypertensive gastropathy was found in the gastric body. Severe portal hypertensive gastropathy was found in the gastric antrum with mild oozing noted with passage of the endoscope into the stomach but no active bleeding was noted at the end of the procedure. No evidence of gastric varices was noted on today's examination. The duodenal bulb and second portion of the duodenum appeared normal - bile was present. Impression: - Normal esophagus. - Regular Z-line. - Mild portal hypertensive gastropathy in the proximal body of the stomach - Antral portal hypertensive gastropathy - severe. - Normal duodenal bulb and second portion of the duodenum. Recommendation: - No evidence of active gi bleeding. - He may have mild oozing contributing to intermitttent anemia from severe antral phg - this is best treated with a non-selective beta chinedu Tova Fitzgerald M.d. 06/22/2021 11:25:03 AM This report has been signed electronically. Note Initiated On: 06/22/2021 10:48 AM Number of Addenda: 0 I attest to the content of the Intraoperative Record and orders documented therein, exceptions below {[id number]}
[2021-06-22] MEDS ORDERED: LIDOCAINE 2% 2 ML VIAL/AMP(20MG/ML) INFIL ONE (11:35)
[2021-06-22] MEDS ORDERED: PROPOFOL IV EMULSION 10 MG/ML 20 ML VIAL IV ONE (11:35)
--- NOTE | 2021-06-22 13:02 | Anesthesiology Progress Note ---
Date of Service June 22, 2021 Anesthesia Post Procedure Vital Signs Vital Signs: Temp Pulse Pulse Resp BP Pulse Ox Pulse Ox 06/22/21 11:57 79 18 128/56 L 99 06/22/21 11:42 82 18 132/60 99 06/22/21 11:27 86 16 110/59 L 98 06/22/21 10:36 36.9 C 82 18 138/70 98 06/22/21 09:00 37 C 70 18 131/77 94 06/22/21 03:00 36.6 C 88 16 112/60 96 06/22/21 00:00 85 06/21/21 23:00 36.7 C 89 16 112/53 L 97 06/21/21 20:00 74 06/21/21 19:00 36.6 C 75 16 132/70 100 100 06/21/21 16:00 63 06/21/21 15:00 36.6 C 70 20 123/66 98 Transfer of Care Handoff Completed per policy Notes Mental Status: alert / awake / arousable and participated in evaluation Patient Amnestic to Procedure: Yes Nausea / Vomiting: adequately controlled Pain: adequately controlled Airway Patency, RR, SpO2: stable & adequate BP & HR: stable & adequate Hydration State: stable & adequate Anesthetic Complications: no major complications apparent and Pt Satisfied with anesthetic care
[2021-06-22] MEDS: carvediloL 3.125 MG TAB PO SCH ×2 (14:27→20:03)
[2021-06-22] MEDS ORDERED: EPOETIN ALFA 20,000 UNITS/ML VIAL SQ ONE (18:38)
--- NOTE | 2021-06-22 18:48 | Hospitalist Progress Note ---
Date of Service June 22, 2021 Assessment & Plan (1) Symptomatic anemia: Plan: - Slow oozing, but no ulcers or variceal bleeds. Switch beta-chinedu to Coregtitrate up as tolerated. Continue PPI. Continue ceftriaxone. Erythropoietin as he was due as an outpatient. No current indication for transfusion. We will definitely need close and ongoing follow-up with hemoglobin as an outpatient. (2) 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: Plan: - See above as it relates to GI bleeding. Given that there was no clear reason for him to have had spironolactone stoppedresuming it tomorrow and follow cl osely. Work his way back to his home dose of Lasix. Carvedilol as above. Possible spontaneous bacterial peritonitis Patient being treated empirically. Started in ED. will continue and complete course of rocephin. Very unlikely to be able to get paracentesis given his trace ascites on imaginghas already been on antibiotics for several days likely adulterated the resultbut also making it not urgent to try to get it done todaywe will ask radiology tomorrow to review if they feel there might be enough ascites to tap. (3) GERD (gastroesophageal reflux disease): Plan: - Resume Protonix twice daily (4) Hypokalemia: Plan: - Resuming spironolactone should help (5) Pancytopenia: Plan: - Follow CBC periodically (6) CKD (chronic kidney disease), stage III: Plan: - [facility]s [facility]rology - Creatinine 1.95 in ED baseline 1.5-1.9 -Creatinine at baseline range (7) Hypertension: Plan: - Switching from metoprolol to carvedilol per GI recommendationtitrate as tolerated (8) Psoriatic arthritis: Plan: - Adalimumab injection every 2 weeks. (9) Hypothyroidism: Plan: - Not currently taking medication for this. Outpatient follow-up (10) Spinal stenosis: Plan: - Chronic, has cervicalgia, with ongoing left arm numbness/tingling for 1-2 months. - No acute needs. (11) Vitamin D deficiency: Plan: - Chronic supplementation Plan: - Stable for transfer to medical, increase activity. PT/OT eval and treatgoal of going home - DNR/DNI. I did discuss this with patient and his son who is at bedside, patient specified he does not wan CPR, standard ACLS protocol, defibrillation, or intubation in the event that he were to cardiac arrest. Admission and Anticipated Discharge Date Admission Date: June 20, 2021 Subjective Feeling better. EGD noted. No new complaints. Does not feel weak. Feels hungry. Notes that he was on spironolactone beforewas stopped about a year agohe really does not remember why, does not remember any adverse reactionsjust is not sure how much it was or was not helping. Also notes that he gets a shot for bone marrow stimulationerythropoietin type of medicinethat he was actually due for today with Dr. Martinez. Otherwise no new complaints. Nursing notes he is doing well 2. Review of Systems Review of Systems: All systems reviewed & are unremarkable except as noted in HPI & below Physical Exam Physical Exam: In general he is awake and alert pleasant no distress. HEENT normocephalic atraumatic mucous membranes moist. Breathing unlabored no accessory muscle use good effort. Skin shows no rashes no pallor or icterus. Neuro without focal deficits. Results & Data Results & Data ([facility]) Vital Signs (Past 12 Hours) Vital Signs Temp Pulse Resp BP Pulse Ox 06/22/21 15:00 97.9 F 77 16 129/64 98 06/22/21 11:57 79 18 128/56 L 99 06/22/21 11:42 82 18 132/60 99 06/22/21 11:27 86 16 110/59 L 98 06/22/21 10:36 98.4 F 82 18 138/70 98 06/22/21 09:00 98.6 F 70 18 131/77 94 PG Care Time/CCT Total # of Minutes Spent Total Time Spent with Patient: Total time spent is greater than 50% in coordination of care (as documented) at patient's floor/unit and/or counseling patient: Coding Level of Care Code 59199 Subseq Hosp Care Lvl 3 Diagnoses Symptomatic anemia D64.9 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 K75.81; K74.60 GERD (gastroesophageal reflux disease) K21.9 Hypokalemia E87.6 Pancytopenia D61.818 CKD (chronic kidney disease), stage III N18.3 Hypertension I10 Psoriatic arthritis L40.50 Hypothyroidism E03.9 Spinal stenosis M48.00 Vitamin D deficiency E55.9
[2021-06-22] MEDS: PANTOprazole 40 MG TAB PO SCH (20:03)
[2021-06-22] MEDS: cefTRIAXone SODIUM 2,000 MG in DEXTROSE 5% 50 ML IV SCH (20:03)
[2021-06-22] MEDS: POTASSIUM CHLORIDE CRTAB 20 MEQ TABCR PO SCH (21:13)
[2021-06-23 06:49] LABS: Hematocrit (blood only) 25.9 % (42-52); Hemoglobin 8.1 g/dL (14.0-18.0); Mean Corpuscular Hemoglobin 29.2 pg (25-34); Mean Corpuscular Hgb Conc 31.3 g/dL (32-36); Mean Corpuscular Volume 93.5 fL (80-100); RDW Standard Deviation 61.1 fL (36.4-46.3); Red Blood Count 2.77 M/uL (4.7-6.1); White Blood Count 3.48 K/uL (4.8-10.8)
[2021-06-23 06:50] LABS: Mean Platelet Volume 10.1 fL (7.4-10.4); Platelet Count 78 K/uL (130-400)
[2021-06-23 07:13] LABS: Basophils # (auto) 0.03 K/uL (0-0.2); Basophils % (auto) 0.9 %; Eosinophils # (auto) 0.29 K/uL (0-0.5); Eosinophils % (auto) 8.3 %; Lymphocytes # (auto) 0.88 K/uL (1.2-3.4); Lymphocytes % (auto) 25.3 %; Monocytes # (auto) 0.42 K/uL (0.11-0.59); Monocytes % (auto) 12.1 %; Neutrophils # (auto) 1.86 K/uL (1.4-6.5); Neutrophils % (auto) 53.4 %
[2021-06-23 07:17] LABS: Calcium 8.3 mg/dl (8.5-10.1); Creatinine Clr Calc Pharmacy 59.9 ml/min; Est GFR (African American) 50.2 ml/min; Est GFR (Non-African American) 43.3 ml/min; Potassium 3.2 mmol/L (3.5-5.1)
[2021-06-23] MEDS: CHOLECALCIFEROL 1,000 UNITS 25 MCG TAB PO SCH (08:54)
[2021-06-23] MEDS: PANTOprazole 40 MG TAB PO SCH ×2 (08:54→20:30)
[2021-06-23] MEDS: carvediloL 3.125 MG TAB PO SCH (08:54)
[2021-06-23] MEDS: POTASSIUM CHLORIDE CRTAB 20 MEQ TABCR PO SCH ×2 (08:55→20:31)
[2021-06-23] MEDS: SPIRONOLACTONE 25 MG TAB PO SCH (08:56)
[2021-06-23] MEDS ORDERED: FUROSEMIDE 40 MG TAB PO ONE (09:30)
[2021-06-23] MEDS: FUROSEMIDE 40 MG TAB PO SCH (16:21)
--- NOTE | 2021-06-23 17:53 | Hospitalist Progress Note ---
Date of Service June 23, 2021 Assessment & Plan (1) Symptomatic anemia: Plan: 66-year-old male with past medical history of CKD3, liver 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, hypertension, hypothyroidism, GERD with gastritis, psoriatic arthritis, spinal stenosis, pancytopenia who presented due to abnormal hemoglobin on outpatient labs. #Symptomatic anemia: - Slow oozing, but no ulcers or variceal bleeds. - cont. Coregtitrate up as tolerated. Continue PPI. Continue ceftriaxone for ppx. Erythropoietin as he was due as an outpatient. No current indication for transfusion.We will definitely need close and ongoing follow-up with hemoglobin as an outpatient. #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: - See above as it relates to GI bleeding. Given that there was no clear reason for him to have had spironolactone stoppedresuming it and follow closely. Work his way back to his home dose of Lasix. Carvedilol as above. - Some concern for SBP, however, paracentesis unlikely since trace ascites on imaging and has already been on abx for several days. No clinical signs of ascites progression. Being treated with rocephin already for variceal bleed ppx which will continue for 7 days. Will avoid treating for SBP since low liklihood and would mean chronic lifelong abx ppx. -started rifaximin for hepatic encephalopathy ppx -GI following #GERD (gastroesophageal reflux disease): - Resume Protonix twice daily #Hypokalemia: - cont. spironolactone #Pancytopenia: - Follow CBC periodically #CKD (chronic kidney disease), stage III: - Follows with [facility] nephrology - Creatinine 1.95 in ED baseline 1.5-1.9 - Creatinine at baseline range #Hypertension: - Switched from metoprolol to carvedilol per GI recommendationtitrate as tolerated #Psoriatic arthritis: - Adalimumab injection every 2 weeks. #Hypothyroidism: - Not currently taking medication for this. Outpatient follow-up #Spinal stenosis: - Chronic, has cervicalgia, with ongoing left arm numbness/tingling for 1-2 months. - No acute needs. #Vitamin D deficiency: - Chronic supplementation DVT ppx: SCDs FEN/GI: low sodium Code Status: DNI/DNR Dispo: med/surg, PT/OT eval and treatgoal of going home Admission and Anticipated Discharge Date Admission Date: June 20, 2021 Supervising Physician Co-Signing Physician Notes I personally examined the patient and verified all [place] points of history and exam, discussed case, and agree with decision making with Dr Ndiaye feeling better eating well notes that PT/OT felt he did not need more service. vitals noted nad heent nc at mmm breathing unlabored no accessory muscles good effort skin no rashes no pallor or icterus diffuse edema noted portal hypertensive UGI bleed with acute blood loss anemia requiring transfusion of 3 units PRBCs -- now appearing stable. on beta chinedu. Hgb appearing stable. eating well. on rocephin. if Hgb stable tomorrow then hopefully home tomorrow. would finish 7 days abx w cipro. to be clear - SBP proph given portal hypertensive UGI bleed - do not suspect he has SBP SERRANO cirrhosis - lasix, spironolactone, ongoing close f/u as outpt - since newly elevated but no AMS - can consider treatment vs close f/u - particuarlly of mental status. current ammonia with no delirium to show with it is the first and only elevation i can find on record for him --> so possibly treat with low amounts of lactulose vs watchful waiting - will d/w pt hopefully home tomorrow if Hgb remains stable Subjective In good spirits. Feeling good with no pain. Says hands are a little more swollen. Ambulating well to and from bathroom. Review of Systems Review of Systems: All systems reviewed & are unremarkable except as noted in Subjective Physical Exam Physical Exam: Constitutional: awake, alert, in no acute distress, Vitals as above. HEENT: Moist mucous membranes.NCAT. Neck: Supple, Trachea midline. Lungs: Clear to auscultation bilaterally with good effort. Cardiac: Regular rate and rhythm. Abdomen: Soft, nontender, and nondistended. MSK: No cyanosis or clubbing. Extremities motor strength 5/5. UE and LE swelling bilaterally without erythema. Skin: No rashes, warm, dry. Neurologic: without deficit Results & Data Results & Data ([facility]) Vital Signs (Past 12 Hours) Vital Signs Temp Pulse Pulse Resp BP Pulse Ox 06/23/21 16:00 36.9 C 79 18 121/76 98 06/23/21 07:30 36.6 C 77 18 111/68 98 06/23/21 06:46 36.6 C 71 20 126/68 97 Laboratory Results 06/23/21 06/23/21 Range/Units 06:16 06:16 WBC 3.48 L (4.8-10.8) K/uL RBC 2.77 L (4.7-6.1) M/uL Hgb 8.1 L (14.0-18.0) g/dL Hct 25.9 L (42-52) % MCV 93.5 (80-100) fL MCH 29.2 (25-34) pg MCHC 31.3 L (32-36) g/dL RDW Std Deviation 61.1 H (36.4-46.3) fL RDW Coeff of Miguel 18.0 H (11.5-14.5) % Plt Count 78 L (130-400) K/uL MPV 10.1 (7.4-10.4) fL Immature Gran % (Auto) 0.0 % Neut % (Auto) 53.4 % Lymph % (Auto) 25.3 % Bradford % (Auto) 12.1 % Eos % (Auto) 8.3 % Baso % (Auto) 0.9 % Neut # (Auto) 1.86 (1.4-6.5) K/uL Lymph # (Auto) 0.88 L (1.2-3.4) K/uL Bradford # (Auto) 0.42 (0.11-0.59) K/uL Eos # (Auto) 0.29 (0-0.5) K/uL Baso # (Auto) 0.03 (0-0.2) K/uL Immature Gran # (Auto) 0.00 (0.00-0.02) K/uL Sodium 139 (136-145) mmol/L Potassium 3.2 L (3.5-5.1) mmol/L Chloride 108 H (98-107) mmol/L Carbon Dioxide 26 (21-32) mmol/L Anion Gap 5 (3-11) BUN 13 (6-23) mg/dl Creatinine 1.62 H (0.6-1.4) mg/dl Est Cr Clr Drug Dosing 59.9 ml/min Est GFR ( Amer) 50.2 ml/min Est GFR (Non-Af Amer) 43.3 ml/min BUN/Creatinine Ratio 8.0 L (10-20) Glucose 107 H (70-99(Fasting)) mg/dl Calcium 8.3 L (8.5-10.1) mg/dl Resident Activity Tracking Resident Involvement: Resident Care Provided Care Provided: Adult [facility]
--- NOTE | 2021-06-23 18:29 | Billing Data ---
Date of Service June 23, 2021 Coding Level of Care Code 31360 Subseq Hosp Care Lvl 3
[2021-06-23] MEDS: rifAXIMin 550 MG TABLET PO SCH (20:38)
[2021-06-23] MEDS: carvediloL 6.25 MG TAB PO SCH (20:39)
[2021-06-23] MEDS: cefTRIAXone SODIUM 2,000 MG in DEXTROSE 5% 50 ML IV SCH (20:39)
--- NOTE | 2021-06-24 06:59 | Hospitalist Progress Note ---
Date of Service June 24, 2021 Assessment & Plan (1) Symptomatic anemia: Plan: 66-year-old male with past medical history of CKD3, liver 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, hypertension, hypothyroidism, GERD with gastritis, psoriatic arthritis, spinal stenosis, pancytopenia who presented due to abnormal hemoglobin on outpatient labs. #Symptomatic anemia: - Slow oozing, but no ulcers or variceal bleeds. - cont. Coregtitrate up as tolerated. Continue PPI. Continue ceftriaxone for ppx. Erythropoietin as he was due as an outpatient. No current indication for transfusion.We will definitely need close and ongoing follow-up with hemoglobin as an outpatient. #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: - See above as it relates to GI bleeding. Given that there was no clear reason for him to have had spironolactone stoppedresuming it and follow closely. Work his way back to his home dose of Lasix. Carvedilol as above. - Some concern for SBP, however, paracentesis unlikely since trace ascites on imaging and has already been on abx for several days. No clinical signs of ascites progression. Being treated with rocephin already for variceal bleed ppx which will continue for 7 days. Will avoid treating for SBP since low liklihood and would mean chronic lifelong abx ppx. -started rifaximin for hepatic encephalopathy ppx -GI following #GERD (gastroesophageal reflux disease): - Resume Protonix twice daily #Hypokalemia: - cont. spironolactone #Pancytopenia: - Follow CBC periodically #CKD (chronic kidney disease), stage III: - Follows with [facility] nephrology - Creatinine 1.95 in ED baseline 1.5-1.9 - Creatinine at baseline range #Hypertension: - Switched from metoprolol to carvedilol per GI recommendationtitrate as tolerated #Psoriatic arthritis: - Adalimumab injection every 2 weeks. #Hypothyroidism: - Not currently taking medication for this. Outpatient follow-up #Spinal stenosis: - Chronic, has cervicalgia, with ongoing left arm numbness/tingling for 1-2 months. - No acute needs. #Vitamin D deficiency: - Chronic supplementation DVT ppx: SCDs FEN/GI: low sodium Code Status: DNI/DNR Dispo: med/surg, PT/OT eval and treatgoal of going home Admission and Anticipated Discharge Date Admission Date: June 20, 2021 Subjective In good spirits. Feeling good with no pain. Says hands are a little more swollen. Ambulating well to and from bathroom. Review of Systems Review of Systems: All systems reviewed & are unremarkable except as noted in Subjective Physical Exam Physical Exam: Constitutional: awake, alert, in no acute distress, Vitals as above. HEENT: Moist mucous membranes.NCAT. Neck: Supple, Trachea midline. Lungs: Clear to auscultation bilaterally with good effort. Cardiac: Regular rate and rhythm. Abdomen: Soft, nontender, and nondistended. MSK: No cyanosis or clubbing. Extremities motor strength 5/5. UE and LE swelling bilaterally without erythema. Skin: No rashes, warm, dry. Neurologic: without deficit Results & Data Results & Data ([facility]) Vital Signs (Past 12 Hours) Vital Signs Temp Pulse Resp BP Pulse Ox 06/23/21 20:34 36.6 C 80 20 113/78 98
[2021-06-24 07:48] LABS: Hematocrit (blood only) 23.1 % (42-52); Hemoglobin 7.2 g/dL (14.0-18.0); Mean Corpuscular Hemoglobin 28.9 pg (25-34); Mean Corpuscular Hgb Conc 31.2 g/dL (32-36); Mean Corpuscular Volume 92.8 fL (80-100); RDW Coefficient of Variation 17.9 % (11.5-14.5); RDW Standard Deviation 59.7 fL (36.4-46.3); Red Blood Count 2.49 M/uL (4.7-6.1); White Blood Count 2.68 K/uL (4.8-10.8)
[2021-06-24 08:08] LABS: Anisocytosis Present; Basophils # (auto) 0.02 K/uL (0-0.2); Basophils % (auto) 0.7 %; Eosinophils # (auto) 0.21 K/uL (0-0.5); Eosinophils % (auto) 7.8 %; Lymphocytes # (auto) 0.78 K/uL (1.2-3.4); Lymphocytes % (auto) 29.1 %; Mean Platelet Volume 9.6 fL (7.4-10.4); Monocytes # (auto) 0.39 K/uL (0.11-0.59); Monocytes % (auto) 14.6 %; Neutrophils # (auto) 1.28 K/uL (1.4-6.5); Neutrophils % (auto) 47.8 %; Platelet Count 57 K/uL (130-400); Platelet Estimate Decreased (Normal); Polychromasia 1+
[2021-06-24 08:41] LABS: Albumin Globulin Ratio 0.7 (0.9-2); BUN Creatinine Ratio 8.2 (10-20); Calcium 7.9 mg/dl (8.5-10.1); Est GFR (African American) 43.6 ml/min; Est GFR (Non-African American) 37.6 ml/min; Potassium 3.2 mmol/L (3.5-5.1)
[2021-06-24] MEDS: FUROSEMIDE 40 MG TAB PO SCH ×2 (09:00→17:13)
[2021-06-24] MEDS: rifAXIMin 550 MG TABLET PO SCH (09:01)
[2021-06-24] MEDS: POTASSIUM CHLORIDE CRTAB 20 MEQ TABCR PO SCH (09:01)
[2021-06-24] MEDS: carvediloL 6.25 MG TAB PO SCH (09:01)
[2021-06-24] MEDS: CHOLECALCIFEROL 1,000 UNITS 25 MCG TAB PO SCH (09:01)
[2021-06-24] MEDS: SPIRONOLACTONE 25 MG TAB PO SCH (09:02)
[2021-06-24] MEDS: PANTOprazole 40 MG TAB PO SCH (09:02)
[2021-06-24 13:15] LABS: Hematocrit (blood only) 24.9 % (42-52); Hemoglobin 8.1 g/dL (14.0-18.0)
[2021-06-24] MEDS ORDERED: POTASSIUM CHLORIDE CRTAB 20 MEQ TABCR PO ONE (14:00)
[2021-06-24] MEDS ORDERED: cefTRIAXone SODIUM 2,000 MG in DEXTROSE 5% 50 ML IV STA (15:08)
--- NOTE | 2021-06-24 15:28 | Discharge Summary ---
Date of Service June 24, 2021 Admission HPI Per Admitting Provider Sebastian Quiñonez is a 66-year-old male with past medical history of CKD3, liver 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, hypertension, hypothyroidism, GERD with gastritis, psoriatic arthritis, spinal stenosis, pancytopenia who presented due to abnormal hemoglobin on outpatient labs. Patient was seen and admitted to the hospital just over a month ago for hemoglobin of 6.1. At that time he was diagnosed with an acute upper GI bleed and was treated with IV octreotide and pantoprazole, underwent upper endoscopy which showed severe antral portal hypertensive gastropathy with 1 area of oozing which required a clip. He required total 3 units RBCs at that time. Hgb discharge 7.9. Today, he has a hemoglobin of 5.8 from outpatient labs ordered by his PCP. He states that after discharge, he had a week of intermittent confusion, occurring about once every other day but completely resolved within a week, evaluated for this once in ED with no acute findings, normal ammonia level and ead CT at that time. He has also had nausea since then, but no vomiting, hematemesis, diarrhea, constipation, melena or hematochezia. He has had ongoing dizziness, shortness of breath with exertion, palpitations with exertion, and fatigue all likely related to his low hemoglobin. He also notes he has gained approximately 20 pounds since last admission despite taking 80 mg of Lasix daily and a very minimal appetite. In ED, he is slightly tachycardic with heart rate of 94, all other vital signs within normal limits and stable. Labs significant for WBC 4.83, RBC 1.96, Hgb 5.8, platelet 86 (known pancytopenia). Potassium 2.9. Cr 1.95, about baseline. Calcium 8.1, T bili 1.5 (baseline). Ammonia level on outpatient labs was 89 earlier today. Albumin 2.4. In ED, patient was started on Protonix bolus with drip, 1 unit PRBCs transfusion begun, as well as LR's at 125 cc/hour. Hospitalist service was consulted for further evaluation and admission. Principal Diagnosis anemia secondary to upper GI bleed Discharge Exam Constitutional: awake, alert, in no acute distress, Vitals as above. HEENT: Moist mucous membranes.NCAT. Neck: Supple, Trachea midline. Lungs: Clear to auscultation bilaterally with good effort. Cardiac: Regular rate and rhythm. Abdomen: Soft, nontender, and nondistended. MSK: No cyanosis or clubbing. Extremities motor strength 5/5. UE and LE swelling bilaterally without erythema. Skin: No rashes, warm, dry. Neurologic: without deficit, AOx3 Discharge Data Allergies Allergy/AdvReac Type Severity Reaction Status Date / Time tamsulosin Allergy Intermediate HIVES Verified 06/20/21 17:09 etanercept [From Enbrel] AdvReac Unknown Increased Verified 06/20/21 17:09 infections Consultations 06/20/21 16:42 ED Decision to Admit Stat 06/20/21 18:15 Consult Gastroenterology Routine Procedures Performed Operation Date: 06/22/21 16:30 Actual Procedures p Esophagogastroduodenoscopy - Harriet Fernandez MD Ordered Studies Laboratory Results WBC 2.68 K/uL (4.8-10.8) L 06/24/21 07:25 RBC 2.49 M/uL (4.7-6.1) L 06/24/21 07:25 Hgb 8.1 g/dL (14.0-18.0) L 06/24/21 12:56 Hct 24.9 % (42-52) L 06/24/21 12:56 MCV 92.8 fL (80-100) 06/24/21 07:25 MCH 28.9 pg (25-34) 06/24/21 07:25 MCHC 31.2 g/dL (32-36) L 06/24/21 07:25 RDW Std Deviation 59.7 fL (36.4-46.3) H 06/24/21 07:25 RDW Coeff of Miguel 17.9 % (11.5-14.5) H 06/24/21 07:25 Plt Count 57 K/uL (130-400) L 06/24/21 07:25 MPV 9.6 fL (7.4-10.4) 06/24/21 07:25 Immature Gran % (Auto) 0.0 % 06/24/21 07:25 Neut % (Auto) 47.8 % 06/24/21 07:25 Lymph % (Auto) 29.1 % 06/24/21 07:25 [place] % (Auto) 14.6 % 06/24/21 07:25 Eos % (Auto) 7.8 % 06/24/21 07:25 Baso % (Auto) 0.7 % 06/24/21 07:25 Neut # (Auto) 1.28 K/uL (1.4-6.5) L 06/24/21 07:25 Lymph # (Auto) 0.78 K/uL (1.2-3.4) L 06/24/21 07:25 [place] # (Auto) 0.39 K/uL (0.11-0.59) 06/24/21 07:25 Eos # (Auto) 0.21 K/uL (0-0.5) 06/24/21 07:25 Baso # (Auto) 0.02 K/uL (0-0.2) 06/24/21 07:25 Immature Gran # (Auto) 0.00 K/uL (0.00-0.02) 06/24/21 07:25 Absolute Nucleated RBC Cancelled 06/22/21 07:17 Nucleated RBC % (auto) Cancelled 06/22/21 07:17 Platelet Estimate Decreased (Normal) L 06/24/21 07:25 Polychromasia 1+ 06/24/21 07:25 Anisocytosis Present 06/24/21 07:25 PT 13.1 Seconds (9.0-12.0) H 06/20/21 16:10 INR 1.2 (0.9-1.1) H 06/20/21 16:10 APTT 22.5 Seconds (21.0-31.0) 06/20/21 16:10 PTT Ratio 0.8 06/20/21 16:10 Sodium 138 mmol/L (136-145) 06/24/21 07:25 Potassium 3.2 mmol/L (3.5-5.1) L 06/24/21 07:25 Chloride 107 mmol/L (98-107) 06/24/21 07:25 Carbon Dioxide 27 mmol/L (21-32) 06/24/21 07:25 Anion Gap 4 (3-11) 06/24/21 07:25 BUN 15 mg/dl (6-23) 06/24/21 07:25 Creatinine 1.82 mg/dl (0.6-1.4) H 06/24/21 07:25 Est Cr Clr Drug Dosing 53.0 ml/min 06/24/21 07:25 Est GFR ( Amer) 43.6 ml/min 06/24/21 07:25 Est GFR (Non-Af Amer) 37.6 ml/min 06/24/21 07:25 BUN/Creatinine Ratio 8.2 (10-20) L 06/24/21 07:25 Glucose 117 mg/dl (70-99(Fasting)) H 06/24/21 07:25 Calcium 7.9 mg/dl (8.5-10.1) L 06/24/21 07:25 Phosphorus 2.6 mg/dl (2.5-4.9) 06/21/21 05:38 Magnesium 1.7 mg/dl (1.7-2.4) 06/21/21 05:38 Total Bilirubin 1.0 mg/dl (0.2-1.0) 06/24/21 07:25 AST 23 U/L (13-39) 06/24/21 07:25 ALT 8 U/L (7-52) 06/24/21 07:25 Alkaline Phosphatase 78 U/L (34-104) 06/24/21 07:25 Total Protein 5.0 gm/dl (6.0-8.3) L 06/24/21 07:25 Albumin 2.0 gm/dl (3.4-5.0) L 06/24/21 07:25 Globulin 3.0 gm/dl (2.5-4.0) 06/24/21 07:25 Albumin/Globulin Ratio 0.7 (0.9-2) L 06/24/21 07:25 SARS-CoV-2, RNA, NAAT NEGATIVE (NEGATIVE) 06/20/21 16:16 Blood Type O Positive 06/20/21 16:21 Antibody Screen NEGATIVE 06/20/21 16:21 Crossmatch See Detail 06/20/21 16:21 Impressions Abdomen/Pelvis CT 06/20/21 19:20 CT abd pelvis wo con CLINICAL HISTORY: nause, LLW pain with Hgb 5.8 TECHNIQUE: Helical axial images of the abdomen and pelvis were obtained. Automated dose lowering techniques and/or adjustment according to patient size were utilized for this exam. This exam was performed without intravenous contrast. CT DOSE: 1755.87 mGy.cm COMPARISON: Comparison is made to CT abdomen pelvis 05/10/2021 FINDINGS: Lower chest: Bibasilar atelectasis versus scarring is seen. Liver: Nodular contour of the liver is seen compatible with cirrhosis. Gallbladder and biliary tree: Patient is status post cholecystectomy. No intra- or extrahepatic biliary ductal dilation. Pancreas: Unremarkable, no focal lesions. Spleen: Unremarkable. Adrenals: Unremarkable. Kidneys and ureters: Nonobstructive nephrolithiasis is seen. Bladder: Limited evaluation due to underdistention. Reproductive organs: Unremarkable. Bowel: The stomach is underdistended, apparent wall thickening is likely artifactual. Lymph nodes Retroperitoneal: Subcentimeter lymph nodes are noted. Mesenteric: Subcentimeter lymph nodes are noted. Pelvic: Unremarkable. Peritoneum: A trace amount of ascites is seen. Vessels: Collaterals are seen about the stomach and spleen. There is recanalization of the umbilical artery. Abdominal wall: Mild anasarca is seen. Bones: Degenerative changes in the visualized spine. IMPRESSION: Findings of cirrhosis and portal hypertension are noted. No evidence of acute abnormality is seen. ACT 112: Negative or not required by law. Electronically signed by: Otto Chilel M.D. 06/21/2021 8:10 AM Chest X-Ray 06/21/21 15:04 XR chest 1V portable CLINICAL HISTORY: shortness of breath. TECHNIQUE: Single frontal radiograph of the chest was obtained. Comparison: Comparison is made to chest one view 06/01/2028 2 FINDINGS: No lines and tubes are seen. The cardiomediastinal silhouette is normal. The lungs are clear. No evidence of pleural effusion or pneumothorax. IMPRESSION: No acute chest disease. ACT 112: Negative or not required by law. Electronically signed by: Otto Chilel M.D. 06/21/2021 3:21 PM Hospital Course (1) Symptomatic anemia: 66-year-old male with past medical history of CKD3, liver 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, hypertension, hypothyroidism, GERD with gastritis, psoriatic arthritis, spinal stenosis, pancytopenia who presented due to abnormal hemoglobin on outpatient labs. #Symptomatic anemia: - Slow oozing likely secondary to portal hypertension. Hgb now stable following multiple transfusions. - EGD: severe portal hypertension gastropathy with mild oozing, no active bleeding, no signs of varices. - GI consult appreciated - cont. home PPI - discontinue home metoprolol. Continue coreg 6.25mg BID. - treated with 5 days ceftriaxone for infection ppx. Will need to continue oral abx with cipro 500mg BID x2 days. Total 7 days abx. - Continue. erythropoietin as he was as an outpatient. - He will need very close follow up early next week. Repeat CBC, BMP, ammonia levels at that time. These levels should then be checked on a weekly basis until further instructed by healthcare provider. #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: - See above as it relates to GI bleeding. - cont. carvedilol, spironolactone, home dose lasix 40mg bid. - there was some concern for SBP, however, paracentesis unlikely since trace ascites on imaging and has already been on abx for several days. No clinical signs of ascites progression. Being treated with rocephin already for variceal bleed ppx, total abx treatment of 7 days. Will avoid treating for SBP since low liklihood and would mean chronic lifelong abx ppx. -started rifaximin for hepatic encephalopathy ppx, continue #GERD (gastroesophageal reflux disease): - Resume Protonix twice daily #Hypokalemia: - cont. spironolactone - cont. potassium 20meq bid #Pancytopenia: - Follow CBC periodically #CKD (chronic kidney disease), stage III: - Follows with [facility] nephrology - Creatinine 1.95 in ED baseline 1.5-1.9 - Creatinine at baseline range #Hypertension: - Switched from metoprolol to carvedilol per GI recommendation -cont carvedilol 6.25mg bid #Psoriatic arthritis: - Adalimumab injection every 2 weeks. #Hypothyroidism: - Not currently taking medication for this. Outpatient follow-up #Spinal stenosis: - Chronic, has cervicalgia, with ongoing left arm numbness/tingling for 1-2 months. - No acute needs. #Vitamin D deficiency: - Chronic supplementation Total Time Total Time Spent Total Time Spent (In Minutes): <30 Discharge Plan Discharge Items Patient Disposition: Home - Self-Care Reason For Visit: HGB 5.8 Discharge Diagnosis: anemia secondary to upper GI bleed Activity: Per Instructions section Non-emergency contact: Primary Care Provider and Livestock Inspector Call non-emergency contact if: you have any medication questions and your symptoms worsen Follow-up/Referrals: Fiorella Castellano DO [Primary Care Provider] - Harriet Fernandez MD [Hospitalist] - Diet: Low Sodium (2gm) Thanh Attending Provider Instructions: You were admitted to the hospital due to having a low hemoglobin which was likely due to to an upper gastrointestinal bleed secondary to your history of portal hypertension. He received few transfusions to elevate your blood counts. You were also placed on antibiotics to prevent infection. We also changed some your medications for benefit of your current condition. Listed below will be the changes we have made and that he should continue to follow. Following discharge you will need to be followed up closely with your primary care provider as well as your accessibility lift technician. 1. Continue your home dose of Lasix of 40 mg 2 times a day. 2. We started the medication spironolactone 25 mg once a day which you should continue to take daily. 3. You should no longer take your metoprolol. Instead we have prescribed you a medication similar called carvedilol. You will take this medication carvedilol 6.25 mg 2 times a day. 4. You will begin taking rifaximin 550 mg 2 times a day for prevention of hepatic encephalopathy. 5. You have been on antibiotics during your stay here for prevention of bacterial infection. You will need 2 more days of antibiotics starting on Saturday, June 25. The medication is ciprofloxacin 500 mg twice a day. 6. You should schedule a follow-up primary care appointment no later than this upcoming Saturday or Saturday. At this visit they should repeat a CBC to check for blood count, a BMP to monitor your creatinine, and ammonium level. These levels should then be followed on a weekly basis for a while until further instructed by her healthcare providers. Thanh Athletic Coordinator Provider Instructions: Dr. Duncan's office should be in touch with you to get your surgery rescheduled. If you do not hear from their office, please call [phone] to follow up. Pending Studies at Discharge: No Stand-Alone Forms: My [employer], Smoking Cessation Medications and DC Order Prescriptions: New Xifaxan 550 mg Tablet 550 mg PO BID Qty: 60 RF: 0 carvedilol 6.25 mg Tablet 6.25 mg PO BID Qty: 60 RF: 0 spironolactone 25 mg Tablet 25 mg PO QAM Qty: 30 RF: 0 ciprofloxacin HCl [Cipro] 500 mg tablet 500 mg PO BID Qty: 4 RF: 0 Continued cholecalciferol (vitamin D3) 50 mcg (2,000 unit) capsule 50 mcg PO QAM Qty: 90 RF: 3 potassium chloride 20 mEq tablet extended release 20 meq PO BID Qty: 60 RF: 2 furosemide 20 mg tablet 40 mg PO BID Qty: 360 RF: 2 chlorhexidine gluconate [Peridex] 0.12 % mouthwash 15 ml buccal BID Qty: 473 RF: 2 Humira(CF) Pen 40 mg/0.4 mL pen injector kit 40 mg subcut Q14D Qty: 2 RF: 2 Aranesp (in polysorbate) 60 mcg/0.3 mL syringe 60 mcg subcut .COMPLEX RF: 0 betamethasone dipropionate 0.05 % ointment 1 applic topical DIRECTED PRN (Reason: Skin Irritation) RF: 0 pantoprazole 40 mg Tablet,Delayed Release (Dr/Ec) 40 mg PO BID Qty: 60 RF: 0 Discontinued metoprolol succinate 25 mg tablet extended release 24 hr 25 mg PO QAM Qty: 90 RF: 3 Discharge Orders: Discharge Order (Routine); Ordered 06/24/21 Ordered By: Niraj Villarreal/Other Patient Handouts: GI Bleeding Causes and Tests, ED Ascites Admission Data Admit Date/Time: 06/20/21 17:37 Attending Provider: Margarito Zamudio Admit Provider: Joo Deluna Primary Care Provider: Fiorella Castellano Other Providers: Lamine Davis ; Joo Deluna ; Tobi Doty ; Kellen Storey ; Cary Og ; Stephanie Simon ; Rivas Titus ; Sara Cloud ; Kindra Fair ; Jeffery Hyatt ; Chio Murillo ; Virgen Banks ; Trinidad Alcocer ; Harriet Fernandez ; Elvin Santiago Other Interventions: Discharge Summary Assessment (RN) Last Done: 06/24/21 16:45 Supervising Physician Co-Signing Physician Notes I personally examined the patient and verified all [place] points of history and exam, discussed case, and agree with decision making with Dr Ndiaye feels good and up to going home vitals noted nad heent nc at mmm breathing unlabored no accessory muscles good effort skin no rashes no pallor or icterus portal hypertensive UGI bleed with acute blood loss anemia requiring transfusion of 3 units PRBCs -- now appearing stable. on beta chinedu. Hgb stable. eating well. on rocephin. Recheck hemoglobin this afternoon to ensure stabilitywas stablestable for home. Discussed with patient quite frankly that his situation really needs to be viewed more as a chronic potential GI bleed rather than an acute episode totally resolvedhence ongoing close outpatient follow-up and serial CBC. Finish course of antibiotics for 7 daysswitching from ceftriaxone to Cipro for p.o. SERRANO cirrhosis - lasix, spironolactone, ongoing close f/u as outpt.. Rifaximin for elevated ammoniashe may be had some questionable periods of altered mental status in the past, but no clear-cut hepatic encephalopathyalthough likely will need to be on lactulose daily in the near future as well. Stable for home, weekly CBC, BMP, ammonia for the near future. Resident Activity Tracking Resident Involvement: Resident Care Provided Care Provided: Adult Hospital Medicine
--- NOTE | 2021-06-24 18:28 | Billing Data ---
Date of Service June 24, 2021 Coding Level of Care Code D/C DAY MANAGEMENT <30 MINS
== END 2021-06-24 17:32 | disposition home or self-care (01) | DRG 441 ==
LOC: ED 15:52 → SUATTDRO 17:37 → 1E 17:37 → 3W 06-22 20:42

== ENCOUNTER 2021-07-06 20:31 | Inpatient (IN) ==
--- NOTE | 2021-07-06 21:16 | Emergency Department Note ---
History of Present Illness General Chief complaint: Weakness Stated complaint: SOB, WEAK, DIZZY, IRON LEVELS LOW, STOMACH PAIN Time Seen by Provider: 07/06/21 20:46 History of Present Illness Provider complaint: Weakness shortness of breath Onset (ago): day(s) 2 Maximum Pain Intensity: 3 Current Pain Intensity: 0 Associated symptoms: + shortness of breath and + weakness; no chest pain, no cough, no fever/chills, no headaches or no nausea/vomiting 66-year-old male presents emergency department with weakness and shortness of breath. Patient reports symptoms began 2 days ago. Patient reports that he has been having darker stools but he is also on iron supplements. Patient reports history of GI bleeds requiring transfusions. Patient states he was recently admitted to the hospital for anemia and GI bleed. No chest pain. Home Medications Medication Instructions Recorded Confirmed Type furosemide 20 mg tablet 40 mg PO BID #360 tab 06/23/20 07/06/21 Rx chlorhexidine gluconate 0.12 % 15 ml BUCCAL BID #473 ml 09/28/20 07/06/21 Rx mouthwash (Peridex) betamethasone dipropionate 0.05 % 1 applic TOPICAL DIRECTED PRN 05/10/21 07/06/21 History topical ointment cholecalciferol (vitamin D3) 50 50 mcg PO QAM #90 cap 05/15/21 07/06/21 Rx mcg (2,000 unit) capsule potassium chloride 20 mEq 20 meq PO BID #60 tab 05/30/21 07/06/21 Rx tablet,extended release darbepoetin coretta in polysorbat 60 60 mcg SUBCUT .COMPLEX syr 06/20/21 07/06/21 History mcg/0.3 mL in polysorbate injection syringe (Aranesp) carvedilol 6.25 mg tablet 6.25 mg PO BID #60 tab 06/24/21 07/06/21 Rx pantoprazole 40 mg tablet,delayed 40 mg PO BID #60 tab 06/28/21 07/06/21 Rx release rifaximin 550 mg tablet (Xifaxan) 550 mg PO BID #60 tab 06/28/21 07/06/21 Rx spironolactone 100 mg tablet 100 mg PO QAM #90 tab 06/28/21 07/06/21 Rx adalimumab 40 mg/0.4 mL 40 mg SUBCUT Q14D #2 ea 06/29/21 07/06/21 Rx subcutaneous pen kit (Humira(CF) Pen) Allergies Allergy/AdvReac Type Severity Reaction Status Date / Time tamsulosin Allergy Intermediate HIVES Verified 07/06/21 11:55 etanercept [From Enbrel] AdvReac Unknown Increased Verified 07/06/21 11:55 infections Past Med/Surg History Medical History CKD (chronic kidney disease), stage III Encounter for pre-operative examination Gastritis GAVE (gastric antral vascular ectasia) Per records GERD (gastroesophageal reflux disease) History of SCC (squamous cell carcinoma) of skin S/p removal- follows with derm Hypertension Hypothyroidism 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 Oral mucositis On mouthwash daily- no recent issues Pancytopenia Psoriasis Psoriatic arthritis PSVT (paroxysmal supraventricular tachycardia) PVT (portal vein thrombosis) denies Spinal stenosis EPIDURAL INJECTIONS IN PAST FOR PAIN RELIEF TMJ arthralgia Urinary retention Vitamin D deficiency Wide-complex tachycardia ON METOPROLOL-F/U DR VANESSA Surgical History H/O foot surgery excision of neuroma b/l feet History of appendectomy History of arthroscopy RT KNEE History of cataract surgery RT/LEFT History of cholecystectomy History of esophagogastroduodenoscopy (EGD) History of herniorrhaphy right inguinal History of lithotripsy History of liver biopsy History of repair of rotator cuff RT/LEFT History of tooth extraction History of urologic surgery Urethral reconstruction 4 [place] [facility] [place]a and vomiting after administration of anesthetic agent S/P epidural steroid injection S/P orchiectomy Right age 9 for UDT S/P urological surgery (2018) BMG urethroplasty-[facility] [place] Suprapubic catheter AND REMOVAL Family History Grandmother (Maternal) Diabetes Father Renal cancer Mother Aortic aneurysm Denies family history of Ovarian cancer Prostate cancer Myocardial infarction Breast cancer Colorectal cancer Social History Smoking Status: Never smoker Second Hand Exposure: No; Hx Alcohol Use: No Hx Substance Use: No Preferred Language: Romansh Communication Ability: Effective Visual Impairment: No Limitations Hearing Ability: Hard of Hearing 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 Beliefs That Will Affect Care: None marital status: / Current Living Situation: Spouse Current Living Situation Comment: SON LIVING WITH PT CURRENTLY current occupational status: retired How many Children do You have: 1 Feels Safe at Home: Yes caffeine: Yes during the past year weight has: increased > 10 lbs Dental Care, Regularly: No Physical Activity Frequency: Other Physical Activity Frequency Comment: currently can not excercise due to physical condition Seatbelt Use: never Sunscreen Use: No Assistive Devices: None Review of Systems A total of 10 systems reviewed and were otherwise negative Physical Exam Vital Signs Vital Signs - 24 hr 07/06/21 20:34 07/06/21 21:01 07/06/21 21:02 Temperature 36.7 C Temperature Source Temporal Artery Scan Pulse Rate 79 Pulse Rate [Apical] 89 Pulse Rhythm Regular Pulse Rhythm [Apical] Regular Pulse Strength Normal Pulse Strength [Apical] Normal Respiratory Rate 16 16 Respiratory Effort / Characteristics Non-Labored Non-Labored Spontaneous Respiratory Depth Normal Normal Respiratory Pattern Regular Regular Blood Pressure 94/56 L Blood Pressure [Right Arm] 110/58 L Blood Pressure Mean 68 Blood Pressure Mean [Right Arm] 75 Blood Pressure Position Sitting Blood Pressure Position [Right Arm] Semi-fowlers Pulse Oximetry 98 99 99 Oxygen Delivery Method Room Air Room Air Room Air Oxygen Flow Rate 0 Sepsis Recent Fever Within 48 Hours No Sepsis New/Unexplained Change in Mental Status N/A Sepsis Action Taken by Nursing No Action Required 07/06/21 21:03 07/06/21 23:00 07/06/21 23:57 Temperature 36.9 C Temperature Source Oral Pulse Rate 85 83 Pulse Rate [Apical] 73 Pulse Rhythm Regular Regular Pulse Rhythm [Apical] Regular Pulse Strength Normal Pulse Strength [Apical] Normal Respiratory Rate 18 18 18 Respiratory Effort / Characteristics Non-Labored Spontaneous Respiratory Depth Normal Respiratory Pattern Regular Blood Pressure 127/58 L Blood Pressure [Right Arm] 127/58 L Blood Pressure Mean 81 Blood Pressure Mean [Right Arm] 81 Blood Pressure Position Semi-fowlers Blood Pressure Position [Right Arm] Semi-fowlers Pulse Oximetry 99 98 98 Oxygen Delivery Method Room Air Room Air Oxygen Flow Rate Sepsis Recent Fever Within 48 Hours Sepsis New/Unexplained Change in Mental Status Sepsis Action Taken by Nursing Physical Exam GENERAL: He is oriented to person, place, and time. He appears well-developed and well-nourished. He does not appear distressed. HENT: Exam performed. - Head: Normocephalic and atraumatic. - Right Ear: External ear normal. No mastoid tenderness. - Left Ear: External ear normal. No mastoid tenderness. - Mouth/Throat: The oropharynx is clear and moist. No trismus in the jaw. No dental abscesses or uvula swelling. No oropharyngeal exudate or tonsillar abscesses. EYES: Conjunctivae and EOM are normal. Pupils are equal, round, and reactive to light. Right eye exhibits no discharge. Left eye exhibits no discharge. No scleral icterus. NECK: Normal range of motion. Neck supple. No JVD present. No spinous process tenderness present. No carotid bruit present. No rigidity. No tracheal deviation and normal range of motion present. No Brudzinski's sign and no Kernig's sign noted. CV: Normal rate, regular rhythm, normal heart sounds and intact distal pulses. There is no peripheral edema. Palpable radial pulses bue. PULM/CHEST: Effort normal and breath sounds normal. No respiratory distress. No stridor. He has no wheezes. He has no rales. - Chest Wall: He exhibits no tenderness. ABD: The abdomen is soft. Bowel sounds are normal. He has no distension. No mass is present. There is no tenderness. There is no rebound, no guarding, no Wiggins's sign and no tenderness at McBurney's point. Rovsig negative. Rectal: Bright red blood per rectum. MUSC/SKEL: Normal range of motion. There is no peripheral edema, tenderness or deformity. LYMPH: No cervical adenopathy. NEURO: He is alert and oriented to person, place, and time. He has normal strength. No cranial nerve deficit or sensory deficit. Coordination and gait normal. GCS eye subscore is 4. GCS verbal subscore is 5. GCS motor subscore is 6. Cerebellar tests wnl. SKIN: Pale. PSYCH: He has a normal mood and affect. Behavior is normal. Judgment and thought content normal. Course Course 2045: The patient was evaluated in room A2. A complete history and physical exam was performed Cardiac monitoring: An order was placed for continuous cardiac monitoring. The monitor shows a rate of 80 with sinus rhythm 2335: Vital signs stable. Labs show hemoglobin of 6.1. Patient will be transfused 1 blood cells. Patient be admitted to the [facility] hospitalist team Dr. Borges notified. Administered Medications Sodium Chloride (Nss 1000ml) 1,000 mls @ 80 mls/hr IV .[id number] LUZ Stop: 08/05/21 20:59 Last Admin: 07/06/21 21:36 Dose: 80 mls/hr Documented by: [id number] Critical Care Time Critical Care Time: Yes Total Critical Care Time: 67 I have personally spent greater than 67 minutes of critical care time in the direct management of this patient. This includes bedside care, interpretation of diagnostic studies, and testing, discussion with consultants, patient, and family members, and other required patient management activities. This 67 minutes is in excess of all separately billable procedures. Medical Decision Making Laboratory Data Result diagrams: 07/06/21 22:07 07/06/21 22:07 Lab Results 07/06/21 07/06/21 07/06/21 Range/Units 20:55 21:24 21:59 WBC RBC Hgb Hct MCV MCH MCHC RDW Std Deviation RDW Coeff of Miguel Plt Count MPV Immature Gran % (Auto) Neut % (Auto) Lymph % (Auto) Lamb % (Auto) Eos % (Auto) Baso % (Auto) Neut # (Auto) Lymph # (Auto) Lamb # (Auto) Eos # (Auto) Baso # (Auto) Immature Gran # (Auto) Absolute Nucleated RBC Nucleated RBC % (auto) Neutrophils % (Manual) Band Neutrophils % Lymphocytes % (Manual) Prolymphocyte % Reactive Lymphs % (Man) Monocytes % (Manual) Eosinophils % (Manual) Basophils % (Manual) Metamyelocytes % (Man) Myelocytes % (Man) Promyelocytes % (Man) Blast Cells % (Manual) Plasma Cell % (Manual) Other Cells % Nucleated RBC % Neutrophils # (Manual) Band Neutrophils # Total Absolute Neuts Lymphocytes # (Manual) Prolymphocyte # Reactive Lymphs # Total Abs Lymphocytes Monocytes # (Manual) Eosinophils # (Manual) Basophils # (Manual) Metamyelocytes # (Man) Myelocytes # (Manual) Promyelocytes # (Man) Blast Cells # (Man) Plasma Cell # (Manual) Other Cells # Nucleated RBCs # (Man) Hypersegmented Neuts Hyposegmented Neuts Hypogranular Neuts Large Granular Lymphs # Lrg Granular Lymphs Hairy Cells Smudge Cells Toxic Granulation Toxic Vacuolation Dohle Bodies Analia Rods Platelet Estimate Hypogranular Platelets Clumped Platelets Giant Platelets Platelet Satelliting RBC Morphology Polychromasia Hypochromasia Poikilocytosis Basophilic Stippling Anisocytosis Microcytosis Macrocytosis Spherocytes Pappenheimer Bodies Sickle Cells Target Cells Tear Drop Cells Ovalocytes Stomatocytes [place] Bodies Echinocytes Acanthocytes (Spur) Rouleaux RBC Agglutinates Schistocytes RBC Morph Comment Sezary Cell PT 14.1 H (9.0-12.0) Seconds INR 1.3 H (0.9-1.1) APTT 37.1 H (21.0-31.0) Seconds PTT Ratio 1.3 Sodium (136-145) mmol/L Potassium (3.5-5.1) mmol/L Chloride (98-107) mmol/L Carbon Dioxide (21-32) mmol/L Anion Gap (3-11) BUN (6-23) mg/dl Creatinine (0.6-1.4) mg/dl Est Cr Clr Drug Dosing ml/min Est GFR ( Amer) ml/min Est GFR (Non-Af Amer) ml/min BUN/Creatinine Ratio (10-20) Glucose (70-99(Fasting)) mg/dl Calcium (8.5-10.1) mg/dl Magnesium (1.7-2.4) mg/dl Total Bilirubin (0.2-1.0) mg/dl Direct Bilirubin (0-0.2) mg/dl AST (13-39) U/L ALT (7-52) U/L Alkaline Phosphatase (34-104) U/L Troponin I High Sens (0-20) pg/ml Total Protein (6.0-8.3) gm/dl Albumin (3.4-5.0) gm/dl Lipase (11-82) U/L SARS-CoV-2, RNA, NAAT NEGATIVE (NEGATIVE) Blood Type O Positive Antibody Screen NEGATIVE Crossmatch See Detail 07/06/21 07/06/21 07/06/21 Range/Units 22:07 22:07 22:07 WBC Cancelled 5.72 RBC Cancelled 2.16 L Hgb Cancelled 6.4 L* Hct Cancelled 20.7 L* MCV Cancelled 95.8 MCH Cancelled 29.6 MCHC Cancelled 30.9 L RDW Std Deviation Cancelled 65.0 H RDW Coeff of Miguel Cancelled 22.6 H Plt Count Cancelled 79 L MPV Cancelled 10.1 Immature Gran % (Auto) Cancelled Neut % (Auto) Cancelled Lymph % (Auto) Cancelled Lamb % (Auto) Cancelled Eos % (Auto) Cancelled Baso % (Auto) Cancelled Neut # (Auto) Cancelled Lymph # (Auto) Cancelled Lamb # (Auto) Cancelled Eos # (Auto) Cancelled Baso # (Auto) Cancelled Immature Gran # (Auto) Cancelled Absolute Nucleated RBC Cancelled 0.05 H Nucleated RBC % (auto) Cancelled 1.0 Neutrophils % (Manual) Cancelled Band Neutrophils % Cancelled Lymphocytes % (Manual) Cancelled Prolymphocyte % Cancelled Reactive Lymphs % (Man) Cancelled Monocytes % (Manual) Cancelled Eosinophils % (Manual) Cancelled Basophils % (Manual) Cancelled Metamyelocytes % (Man) Cancelled Myelocytes % (Man) Cancelled Promyelocytes % (Man) Cancelled Blast Cells % (Manual) Cancelled Plasma Cell % (Manual) Cancelled Other Cells % Cancelled Nucleated RBC % Cancelled Neutrophils # (Manual) Cancelled Band Neutrophils # Cancelled Total Absolute Neuts Cancelled Lymphocytes # (Manual) Cancelled Prolymphocyte # Cancelled Reactive Lymphs # Cancelled Total Abs Lymphocytes Cancelled Monocytes # (Manual) Cancelled Eosinophils # (Manual) Cancelled Basophils # (Manual) Cancelled Metamyelocytes # (Man) Cancelled Myelocytes # (Manual) Cancelled Promyelocytes # (Man) Cancelled Blast Cells # (Man) Cancelled Plasma Cell # (Manual) Cancelled Other Cells # Cancelled Nucleated RBCs # (Man) Cancelled Hypersegmented Neuts Cancelled Hyposegmented Neuts Cancelled Hypogranular Neuts Cancelled Large Granular Lymphs Cancelled # Lrg Granular Lymphs Cancelled Hairy Cells Cancelled Smudge Cells Cancelled Toxic Granulation Cancelled Toxic Vacuolation Cancelled Dohle Bodies Cancelled Analia Rods Cancelled Platelet Estimate Cancelled Hypogranular Platelets Cancelled Clumped Platelets Cancelled Giant Platelets Cancelled Platelet Satelliting Cancelled RBC Morphology Cancelled Polychromasia Cancelled Hypochromasia Cancelled Poikilocytosis Cancelled Basophilic Stippling Cancelled Anisocytosis Cancelled Microcytosis Cancelled Macrocytosis Cancelled Spherocytes Cancelled Pappenheimer Bodies Cancelled Sickle Cells Cancelled Target Cells Cancelled Tear Drop Cells Cancelled Ovalocytes Cancelled Stomatocytes Cancelled [place] Bodies Cancelled Echinocytes Cancelled Acanthocytes (Spur) Cancelled Rouleaux Cancelled RBC Agglutinates Cancelled Schistocytes Cancelled RBC Morph Comment Cancelled Sezary Cell Cancelled PT (9.0-12.0) Seconds INR (0.9-1.1) APTT (21.0-31.0) Seconds PTT Ratio Sodium 138 (136-145) mmol/L Potassium 3.6 (3.5-5.1) mmol/L Chloride 104 (98-107) mmol/L Carbon Dioxide 27 (21-32) mmol/L Anion Gap 7 (3-11) BUN 22 (6-23) mg/dl Creatinine 2.13 H (0.6-1.4) mg/dl Est Cr Clr Drug Dosing 45.0 ml/min Est GFR ( Amer) 36.0 ml/min Est GFR (Non-Af Amer) 31.1 ml/min BUN/Creatinine Ratio 10.3 (10-20) Glucose 177 H (70-99(Fasting)) mg/dl Calcium 8.6 (8.5-10.1) mg/dl Magnesium 1.8 (1.7-2.4) mg/dl Total Bilirubin 1.3 H (0.2-1.0) mg/dl Direct Bilirubin 0.3 H (0-0.2) mg/dl AST 30 (13-39) U/L ALT 13 (7-52) U/L Alkaline Phosphatase 93 (34-104) U/L Troponin I High Sens 5.5 (0-20) pg/ml Total Protein 5.6 L (6.0-8.3) gm/dl Albumin 2.3 L (3.4-5.0) gm/dl Lipase 23 (11-82) U/L SARS-CoV-2, RNA, NAAT (NEGATIVE) Blood Type Antibody Screen Crossmatch Imaging Data My Impression: Chest x-ray negative. Airway clear. No pneumothorax. No consolidation. No cardiomegaly or cephalization.. No free air under the diaphragm. No fractures of the skeletal structures. ECG Data Indication: + weakness Rate (beats per minute): 74 Rhythm: + normal sinus ECG Intervals/blocks: + Normal QRS, + Normal AK and + Normal QT-c ECG ST segments: + Normal ST segments MDM Narrative Vital signs stable. Labs show hemoglobin of 6.1. Patient will be transfused 1 blood cells. Patient be admitted to the [facility] any hospitalist team Dr. Borges notified. Impression & Plan GI bleed Discharge Plan Visit Data Chief Complaint: Weakness Stated Complaint: SOB, WEAK, DIZZY, IRON LEVELS LOW, STOMACH PAIN ED Provider: Parker Cruz Discharge Problem: GI bleed Patient Disposition: Admitted As Inpatient Forms Stand Alone Forms: [facility] Prescriptions Prescriptions: No Action cholecalciferol (vitamin D3) 50 mcg (2,000 unit) capsule 50 mcg PO QAM Qty: 90 RF: 3 potassium chloride 20 mEq tablet extended release 20 meq PO BID Qty: 60 RF: 2 pantoprazole 40 mg tablet,delayed release (DR/EC) 40 mg PO BID Qty: 60 RF: 5 Xifaxan 550 mg tablet 550 mg PO BID Qty: 60 RF: 5 Humira(CF) Pen 40 mg/0.4 mL pen injector kit 40 mg subcut Q14D Qty: 2 RF: 5 furosemide 20 mg tablet 40 mg PO BID Qty: 360 RF: 2 chlorhexidine gluconate [Peridex] 0.12 % mouthwash 15 ml buccal BID Qty: 473 RF: 2 spironolactone 100 mg tablet 100 mg PO QAM Qty: 90 RF: 2 Aranesp (in polysorbate) 60 mcg/0.3 mL syringe 60 mcg subcut .COMPLEX RF: 0 betamethasone dipropionate 0.05 % ointment 1 applic topical DIRECTED PRN (Reason: Skin Irritation) RF: 0 carvedilol 6.25 mg Tablet 6.25 mg PO BID Qty: 60 RF: 0 Referrals Referrals: Fiorella Castellano DO [Primary Care Provider] -
[2021-07-06] MEDS: SODIUM CHLORIDE 0.9% 1000ML 1,000 ML IV SCH (21:36)
[2021-07-06 22:50] LABS: INR 1.3 (0.9-1.1); Partial Thromboplastin Ratio 1.3; Partial Thromboplastin Time 37.1 Seconds (21.0-31.0); Prothrombin Time 14.1 Seconds (9.0-12.0)
[2021-07-06 23:20] LABS: Albumin Level 2.3 gm/dl (3.4-5.0); BUN Creatinine Ratio 10.3 (10-20); Bilirubin Direct 0.3 mg/dl (0-0.2); Bilirubin,Total 1.3 mg/dl (0.2-1.0); Calcium 8.6 mg/dl (8.5-10.1); Est GFR (Non-African American) 31.1 ml/min; Magnesium 1.8 mg/dl (1.7-2.4); Potassium 3.6 mmol/L (3.5-5.1); Total Protein 5.6 gm/dl (6.0-8.3); Troponin I High Sensitivity 5.5 pg/ml (0-20)
[2021-07-06 23:31] LABS: Hematocrit (blood only) 20.7 % (42-52); Hemoglobin 6.4 g/dL (14.0-18.0); Mean Corpuscular Hemoglobin 29.6 pg (25-34); Mean Corpuscular Hgb Conc 30.9 g/dL (32-36); Mean Corpuscular Volume 95.8 fL (80-100); Mean Platelet Volume 10.1 fL (7.4-10.4); Nucleated RBC # (auto) 0.05 K/uL (0-0); Platelet Count 79 K/uL (130-400); RDW Coefficient of Variation 22.6 % (11.5-14.5); Red Blood Count 2.16 M/uL (4.7-6.1); White Blood Count 5.72 K/uL (4.8-10.8)
[2021-07-06] MEDS ORDERED: SODIUM CHLORIDE 0.9% 250 ML IV PRN (23:34)
[2021-07-07 00:12] LABS: Anisocytosis Present; Basophils # (auto) 0.04 K/uL (0-0.2); Basophils % (auto) 0.7 %; Eosinophils # (auto) 0.34 K/uL (0-0.5); Eosinophils % (auto) 5.9 %; Immature Granulocytes # (auto) 0.04 K/uL (0.00-0.02); Immature Granulocytes % (auto) 0.7 %; Lymphocytes # (auto) 1.15 K/uL (1.2-3.4); Lymphocytes % (auto) 20.1 %; Monocytes # (auto) 0.85 K/uL (0.11-0.59); Monocytes % (auto) 14.9 %; Neutrophils % (auto) 57.7 %; Polychromasia 1+
--- NOTE | 2021-07-07 00:50 | History & Physical Report ---
Date of Service July 07, 2021 Assessment & Plan (1) GI bleed: Plan: GI bleed/symptomatic anemia/portal hypertensive gastropathy/bright red blood per rectum- Hemoglobin 6.4 upon admission 2 units PRBCs written from the ED NPO H&H every 6 hours Protonix 40 mg IV twice daily Previous bleeds have been primarily upper, however, symptoms this time sound there is at least some involvement in lower area as well Consult gastroenterology (2) Portal hypertensive gastropathy: Plan: See above (3) Symptomatic anemia: Plan: See above (4) Hypertension: Plan: Hold oral antihypertensives: Carvedilol, furosemide, spironolactone. (5) CKD (chronic kidney disease), stage III: Plan: Creatinine 2.13 upon admission, with range 1.60-1.97 Will likely improve with transfusion and IV fluids Follow serially (6) 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: (7) Psoriatic arthritis: (8) Psoriasis: History of Present Illness Chief Complaint: The patient presents to the emergency department with progressive weakness, dizziness, shortness of breath, and bright red blood per rectum over the past 24 hours \ Primary Care Provider: Fiorella Castellano DO The patient is a 66-year-old male with a past medical history including PSVT, psoriasis, ascites, fatty liver, wide-complex tachycardia, squamous cell carcinoma of skin, hypothyroidism, hypertension, GERD, psoriatic arthritis, spinal stenosis, CKD, liver 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, and severe portal hypertensive gastropathy causing GI bleed history. Patient had gotten IV iron yesterday, and had noted his stools being dark as usually happens with the IV iron. However, he noted in the commode there was bright red blood and a large blood clot, which is new for him. He also notes lower abdominal and pelvic discomfort, which is new for him as well. He had an EGD done on 05/11, which showed severe portal hypertensive gastropathy that was managed with a single clip. His last colonoscopy was more than 10 years ago, and reports 5 polyps being removed Allergies Allergy/AdvReac Type Severity Reaction Status Date / Time tamsulosin Allergy Intermediate HIVES Verified 07/06/21 11:55 etanercept [From Enbrel] AdvReac Unknown Increased Verified 07/06/21 11:55 infections Home Medications Medication Instructions Recorded Confirmed Type furosemide 20 mg tablet 40 mg PO BID #360 tab 06/23/20 07/06/21 Rx chlorhexidine gluconate 0.12 % 15 ml BUCCAL BID #473 ml 09/28/20 07/06/21 Rx mouthwash (Peridex) betamethasone dipropionate 0.05 % 1 applic TOPICAL DIRECTED PRN 05/10/21 07/06/21 History topical ointment cholecalciferol (vitamin D3) 50 50 mcg PO QAM #90 cap 05/15/21 07/06/21 Rx mcg (2,000 unit) capsule potassium chloride 20 mEq 20 meq PO BID #60 tab 05/30/21 07/06/21 Rx tablet,extended release darbepoetin coretta in polysorbat 60 60 mcg SUBCUT .COMPLEX syr 06/20/21 07/06/21 History mcg/0.3 mL in polysorbate injection syringe (Aranesp) carvedilol 6.25 mg tablet 6.25 mg PO BID #60 tab 06/24/21 07/06/21 Rx pantoprazole 40 mg tablet,delayed 40 mg PO BID #60 tab 06/28/21 07/06/21 Rx release rifaximin 550 mg tablet (Xifaxan) 550 mg PO BID #60 tab 06/28/21 07/06/21 Rx spironolactone 100 mg tablet 100 mg PO QAM #90 tab 06/28/21 07/06/21 Rx adalimumab 40 mg/0.4 mL 40 mg SUBCUT Q14D #2 ea 06/29/21 07/06/21 Rx subcutaneous pen kit (Humira(CF) Pen) Past Med/Surg History Medical History (Updated 07/07/21 @ 02:33 by Gio Bello MD) CKD (chronic kidney disease), stage III Encounter for pre-operative examination Gastritis GAVE (gastric antral vascular ectasia) Per records GERD (gastroesophageal reflux disease) History of SCC (squamous cell carcinoma) of skin S/p removal- follows with derm Hypertension Hypothyroidism 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 Oral mucositis On mouthwash daily- no recent issues Pancytopenia Portal hypertensive gastropathy Psoriasis Psoriatic arthritis PSVT (paroxysmal supraventricular tachycardia) PVT (portal vein thrombosis) denies Spinal stenosis EPIDURAL INJECTIONS IN PAST FOR PAIN RELIEF TMJ arthralgia Urinary retention Vitamin D deficiency Wide-complex tachycardia ON METOPROLOL-F/U DR OTF Surgical History H/O foot surgery excision of neuroma b/l feet History of appendectomy History of arthroscopy RT KNEE History of cataract surgery RT/LEFT History of cholecystectomy History of esophagogastroduodenoscopy (EGD) History of herniorrhaphy right inguinal History of lithotripsy History of liver biopsy History of repair of rotator cuff RT/LEFT History of tooth extraction History of urologic surgery Urethral [place] 4 [place] [facility] [place] Nausea and vomiting after administration of anesthetic agent S/P epidural steroid injection S/P orchiectomy Right age 9 for UDT S/P urological surgery (2018) [facility] urethroplasty-C Suprapubic catheter AND REMOVAL Family History Grandmother (Maternal) Diabetes Father Renal cancer Mother Aortic aneurysm Denies family history of Ovarian cancer Prostate cancer Myocardial infarction Breast cancer Colorectal cancer Social History Smoking Status: Never smoker Second Hand Exposure: No; Hx Alcohol Use: No Hx Substance Use: No Preferred Language: Micronesian Communication Ability: Effective Visual Impairment: No Limitations Hearing Ability: Hard of Hearing Ve Teacher Required: No Beliefs That Will Affect Care: None marital status: / Current Living Situation: Spouse Current Living Situation Comment: SON LIVING WITH PT CURRENTLY current occupational status: retired How many Children do You have: 1 Feels Safe at Home: Yes caffeine: Yes during the past year weight has: increased > 10 lbs Dental Care, Regularly: No Physical Activity Frequency: Other Physical Activity Frequency Comment: currently can not excercise due to physical condition Seatbelt Use: never Sunscreen Use: No Assistive Devices: None Review of Systems Review of Systems: The patient denies chest pain, palpitations, cough, lower extremity swelling, sore throat, fevers, chills, sweats, nausea, vomiting, diarrhea , constipation, blood in urine or stool, dysuria, urinary frequency or urgency, lightheadedness, dizziness, headache, memory loss, loss of consciousness, rash, abnormal bruising or bleeding, imbalance, focal weakness, numbness or tingling in arms or legs, generalized arthralgias or myalgias, back or neck pain, or night sweats. The review of systems is otherwise negative other than for that already noted above, and at least 10 systems have been reviewed. Physical Exam Physical Exam: The patient is awake, alert and oriented 3, well developed and well nourished, normocephalic and atraumatic, lying in bed and in no acute distress. HEENT--PERRL, EOMI, mucous membranes and oropharynx normal. Neck--supple. No JVD. No bruits. Thyroid normal, trachea midline, no adenopathy. Heart--normal S1 and S2. No murmurs, rubs or gallops. Lungs--clear bilaterally, no respiratory distress, no accessory muscle use. Abdomen--normal bowel sounds and soft. Mild left lower quadrant pain on palpation. Nondistended Extremities--no cyanosis or clubbing. No edema. Dermatologic--normal skin turgor, normal color, no abnormal lymph nodes, no rash. Neurologic--cranial nerves II through XII grossly intact. Rheumatologic--normal range of motion. Psychiatric--normal affect. Results & Data Results & Data ([facility]) Vital Signs (Past 12 Hours) Vital Signs Temp Pulse Pulse Resp BP BP Pulse Ox 07/07/21 00:29 36.9 C 72 16 107/47 L 97 07/07/21 00:14 37.0 C 81 16 98/37 L 97 07/06/21 23:57 36.9 C 83 18 127/58 L 98 07/06/21 23:00 73 18 127/58 L 98 07/06/21 21:03 85 18 99 07/06/21 21:02 89 16 110/58 L 99 07/06/21 21:01 99 07/06/21 20:34 36.7 C 79 16 94/56 L 98 Laboratory Results Laboratory Results WBC 5.72 K/uL (4.8-10.8) 07/06/21 22:07 WBC Cancelled 07/06/21 22:07 RBC 2.16 M/uL (4.7-6.1) L 07/06/21 22:07 RBC Cancelled 07/06/21 22:07 Hgb 6.4 g/dL (14.0-18.0) L* 07/06/21 22:07 Hgb Cancelled 07/06/21 22:07 Hct 20.7 % (42-52) L* 07/06/21 22:07 Hct Cancelled 07/06/21 22:07 MCV 95.8 fL (80-100) 07/06/21 22:07 MCV Cancelled 07/06/21 22:07 MCH 29.6 pg (25-34) 07/06/21 22:07 MCH Cancelled 07/06/21 22:07 MCHC 30.9 g/dL (32-36) L 07/06/21 22:07 MCHC Cancelled 07/06/21 22:07 RDW Std Deviation 65.0 fL (36.4-46.3) H 07/06/21 22:07 RDW Std Deviation Cancelled 07/06/21 22:07 RDW Coeff of Miguel 22.6 % (11.5-14.5) H 07/06/21 22:07 RDW Coeff of Miguel Cancelled 07/06/21 22:07 Plt Count 79 K/uL (130-400) L 07/06/21 22:07 Plt Count Cancelled 07/06/21 22:07 MPV 10.1 fL (7.4-10.4) 07/06/21 22:07 MPV Cancelled 07/06/21 22:07 Immature Gran % (Auto) 0.7 % 07/06/21 22:07 Immature Gran % (Auto) Cancelled 07/06/21 22:07 Neut % (Auto) 57.7 % 07/06/21 22:07 Neut % (Auto) Cancelled 07/06/21 22:07 Lymph % (Auto) 20.1 % 07/06/21 22:07 Lymph % (Auto) Cancelled 07/06/21 22:07 [place] % (Auto) 14.9 % 07/06/21 22:07 [place] % (Auto) Cancelled 07/06/21 22:07 Eos % (Auto) 5.9 % 07/06/21 22:07 Eos % (Auto) Cancelled 07/06/21 22:07 Baso % (Auto) 0.7 % 07/06/21 22:07 Baso % (Auto) Cancelled 07/06/21 22:07 Neut # (Auto) 3.30 K/uL (1.4-6.5) 07/06/21 22:07 Neut # (Auto) Cancelled 07/06/21 22:07 Lymph # (Auto) 1.15 K/uL (1.2-3.4) L 07/06/21 22:07 Lymph # (Auto) Cancelled 07/06/21 22:07 [place] # (Auto) 0.85 K/uL (0.11-0.59) H 07/06/21 22:07 [place] # (Auto) Cancelled 07/06/21 22:07 Eos # (Auto) 0.34 K/uL (0-0.5) 07/06/21 22:07 Eos # (Auto) Cancelled 07/06/21 22:07 Baso # (Auto) 0.04 K/uL (0-0.2) 07/06/21 22:07 Baso # (Auto) Cancelled 07/06/21 22:07 Immature Gran # (Auto) 0.04 K/uL (0.00-0.02) H 07/06/21 22:07 Immature Gran # (Auto) Cancelled 07/06/21 22:07 Absolute Nucleated RBC 0.05 K/uL (0-0) H 07/06/21 22:07 Absolute Nucleated RBC Cancelled 07/06/21 22:07 Nucleated RBC % (auto) 1.0 % 07/06/21 22:07 Nucleated RBC % (auto) Cancelled 07/06/21 22:07 Neutrophils % (Manual) Cancelled 07/06/21 22:07 Band Neutrophils % Cancelled 07/06/21 22:07 Lymphocytes % (Manual) Cancelled 07/06/21 22:07 Prolymphocyte % Cancelled 07/06/21 22:07 Reactive Lymphs % (Man) Cancelled 07/06/21 22:07 Monocytes % (Manual) Cancelled 07/06/21 22:07 Eosinophils % (Manual) Cancelled 07/06/21 22:07 Basophils % (Manual) Cancelled 07/06/21 22:07 Metamyelocytes % (Man) Cancelled 07/06/21 22:07 Myelocytes % (Man) Cancelled 07/06/21 22:07 Promyelocytes % (Man) Cancelled 07/06/21 22:07 Blast Cells % (Manual) Cancelled 07/06/21 22:07 Plasma Cell % (Manual) Cancelled 07/06/21 22:07 Other Cells % Cancelled 07/06/21 22:07 Nucleated RBC % Cancelled 07/06/21 22:07 Neutrophils # (Manual) Cancelled 07/06/21 22:07 Band Neutrophils # Cancelled 07/06/21 22:07 Total Absolute Neuts Cancelled 07/06/21 22:07 Lymphocytes # (Manual) Cancelled 07/06/21 22:07 Prolymphocyte # Cancelled 07/06/21 22:07 Reactive Lymphs # Cancelled 07/06/21 22:07 Total Abs Lymphocytes Cancelled 07/06/21 22:07 Monocytes # (Manual) Cancelled 07/06/21 22:07 Eosinophils # (Manual) Cancelled 07/06/21 22:07 Basophils # (Manual) Cancelled 07/06/21 22:07 Metamyelocytes # (Man) Cancelled 07/06/21 22:07 Myelocytes # (Manual) Cancelled 07/06/21 22:07 Promyelocytes # (Man) Cancelled 07/06/21 22:07 Blast Cells # (Man) Cancelled 07/06/21 22:07 Plasma Cell # (Manual) Cancelled 07/06/21 22:07 Other Cells # Cancelled 07/06/21 22:07 Nucleated RBCs # (Man) Cancelled 07/06/21 22:07 Hypersegmented Neuts Cancelled 07/06/21 22:07 Hyposegmented Neuts Cancelled 07/06/21 22:07 Hypogranular Neuts Cancelled 07/06/21 22:07 Large Granular Lymphs Cancelled 07/06/21 22:07 # Lrg Granular Lymphs Cancelled 07/06/21 22:07 Hairy Cells Cancelled 07/06/21 22:07 Smudge Cells Cancelled 07/06/21 22:07 Toxic Granulation Cancelled 07/06/21 22:07 Toxic Vacuolation Cancelled 07/06/21 22:07 Dohle Bodies Cancelled 07/06/21 22:07 Analia Rods Cancelled 07/06/21 22:07 Platelet Estimate Cancelled 07/06/21 22:07 Hypogranular Platelets Cancelled 07/06/21 22:07 Clumped Platelets Cancelled 07/06/21 22:07 Giant Platelets Cancelled 07/06/21 22:07 Platelet Satelliting Cancelled 07/06/21 22:07 RBC Morphology Cancelled 07/06/21 22:07 Polychromasia 1+ 07/06/21 22:07 Polychromasia Cancelled 07/06/21 22:07 Hypochromasia Cancelled 07/06/21 22:07 Poikilocytosis Cancelled 07/06/21 22:07 Basophilic Stippling Cancelled 07/06/21 22:07 Anisocytosis Cancelled 07/06/21 22:07 Anisocytosis Present 07/06/21 22:07 Microcytosis Cancelled 07/06/21 22:07 Macrocytosis Cancelled 07/06/21 22:07 Spherocytes Cancelled 07/06/21 22:07 Pappenheimer Bodies Cancelled 07/06/21 22:07 Sickle Cells Cancelled 07/06/21 22:07 Target Cells Cancelled 07/06/21 22:07 Tear Drop Cells Cancelled 07/06/21 22:07 Ovalocytes Cancelled 07/06/21 22:07 Stomatocytes Cancelled 07/06/21 22:07 [place] Bodies Cancelled 07/06/21 22:07 Echinocytes Cancelled 07/06/21 22:07 Acanthocytes (Spur) Cancelled 07/06/21 22:07 Rouleaux Cancelled 07/06/21 22:07 RBC Agglutinates Cancelled 07/06/21 22:07 Schistocytes Cancelled 07/06/21 22:07 RBC Morph Comment Cancelled 07/06/21 22:07 Sezary Cell Cancelled 07/06/21 22:07 PT 14.1 Seconds (9.0-12.0) H 07/06/21 21:59 INR 1.3 (0.9-1.1) H 07/06/21 21:59 APTT 37.1 Seconds (21.0-31.0) H 07/06/21 21:59 PTT Ratio 1.3 07/06/21 21:59 Sodium 138 mmol/L (136-145) 07/06/21 22:07 Potassium 3.6 mmol/L (3.5-5.1) 07/06/21 22:07 Chloride 104 mmol/L (98-107) 07/06/21 22:07 Carbon Dioxide 27 mmol/L (21-32) 07/06/21 22:07 Anion Gap 7 (3-11) 07/06/21 22:07 BUN 22 mg/dl (6-23) 07/06/21 22:07 Creatinine 2.13 mg/dl (0.6-1.4) H 07/06/21 22:07 Est Cr Clr Drug Dosing 45.0 ml/min 07/06/21 22:07 Est GFR ( Amer) 36.0 ml/min 07/06/21 22:07 Est GFR (Non-Af Amer) 31.1 ml/min 07/06/21 22:07 BUN/Creatinine Ratio 10.3 (10-20) 07/06/21 22:07 Glucose 177 mg/dl (70-99(Fasting)) H 07/06/21 22:07 Calcium 8.6 mg/dl (8.5-10.1) 07/06/21 22:07 Magnesium 1.8 mg/dl (1.7-2.4) 07/06/21 22:07 Total Bilirubin 1.3 mg/dl (0.2-1.0) H 07/06/21 22:07 Direct Bilirubin 0.3 mg/dl (0-0.2) H 07/06/21 22:07 AST 30 U/L (13-39) 07/06/21 22:07 ALT 13 U/L (7-52) 07/06/21 22:07 Alkaline Phosphatase 93 U/L (34-104) 07/06/21 22:07 Troponin I High Sens 5.5 pg/ml (0-20) 07/06/21 22:07 Total Protein 5.6 gm/dl (6.0-8.3) L 07/06/21 22:07 Albumin 2.3 gm/dl (3.4-5.0) L 07/06/21 22:07 Lipase 23 U/L (11-82) 07/06/21 22:07 SARS-CoV-2, RNA, NAAT NEGATIVE (NEGATIVE) 07/06/21 21:24 Blood Type O Positive 07/06/21 20:55 Antibody Screen NEGATIVE 07/06/21 20:55 Crossmatch See Detail 07/06/21 20:55 Code Status & VTE Plan Code Status Full code VTE Prophylaxis Plan VTE Prophylaxis will be ordered: Yes PG Care Time/CCT Total # of Minutes Spent Total Time Spent with Patient: Total time spent is greater than 50% in coordination of care (as documented) at patient's floor/unit and/or counseling patient: Coding Level of Care Code 00817 Initial Inpt Care Lvl 3 Diagnoses Portal hypertensive gastropathy K76.6; K31.89 GI bleed K92.2 GI bleed type/associated pathology: unspecified gastrointestinal hemorr raj type Psoriasis L40.9 Symptomatic anemia D64.9 Hypertension I10 Psoriatic arthritis L40.50 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 K75.81; K74.60 CKD (chronic kidney disease), stage III N18.3 (1) GI bleed GI bleed type/associated pathology: unspecified gastrointestinal hemorrhage type Qualified Code(s): K92.2 - Gastrointestinal hemorrhage, unspecified
[2021-07-07] MEDS ORDERED: ONDANSETRON INJ 2 MG/ML 2 ML VIAL IV PRN (02:31)
[2021-07-07] MEDS ORDERED: diphenhydrAMINE 50 MG/ML VIAL IV ONE (03:01)
[2021-07-07] MEDS: cefTRIAXone SODIUM 2,000 MG in DEXTROSE 5% 50 ML IV SCH (05:30)
--- NOTE | 2021-07-07 07:06 | XRay Report ---
XR chest 1V portable CLINICAL HISTORY: Shortness of breath. COMPARISON STUDY: Chest radiograph June 21, 2021. FINDINGS: Lung volumes are normal. Lungs are clear. There is no pneumothorax or pleural effusion. Car diac size is stable. Mediastinal contours are normal. There is no evidence for pulmonary edema. IMPRESSION: No acute cardiopulmonary findings. ACT 112: Negative or not required by law. Electronically signed by: Russell Cantu M.D. 07/07/2021 7:05 AM
[2021-07-07 07:21] LABS: Hematocrit (blood only) 21.3 % (42-52); Hemoglobin 6.6 g/dL (14.0-18.0)
[2021-07-07] MEDS ORDERED: SODIUM CHLORIDE 0.9% 250 ML IV PRN (07:24)
[2021-07-07] MEDS: PANTOprazole 40 MG in SYRINGE 0 ML IV SCH ×2 (08:17→20:13)
--- NOTE | 2021-07-07 08:57 | Nephrology Consultation ---
Date of Consultation July 07, 2021 History of Present Illness Attending Physician: Margarito Zamudio, History of Present Illness Creatinine fluctuates at baseline appears to be approximately 1.4-2.0 mg/dL. Medical history is notable for cirrhosis due to SERRANO (normal LFT's at baseline; no reported history of varices, ascites or encephalopathy), psoriatic arthritis (maintained on Humira), spinal stenosis/OA/DJD including knees and shoulders, hypertension, recurrent nephrolithiasis, Lyme disease, [place] [facility] [place] Sebastian was admitted to [facility] in March 2017 with severe sepsis with shock due to enterococcus bacteremia and UTI. Allergies Allergy/AdvReac Type Severity Reaction Status Date / Time tamsulosin Allergy Intermediate HIVES Verified 07/06/21 11:55 etanercept [From Enbrel] AdvReac Unknown Increased Verified 07/06/21 11:55 infections Home Medications Medication Instructions Recorded Confirmed Type furosemide 20 mg tablet 40 mg PO BID #360 tab 06/23/20 07/06/21 Rx chlorhexidine gluconate 0.12 % 15 ml BUCCAL BID #473 ml 09/28/20 07/06/21 Rx mouthwash (Peridex) betamethasone dipropionate 0.05 % 1 applic TOPICAL DIRECTED PRN 05/10/21 07/06/21 History topical ointment cholecalciferol (vitamin D3) 50 50 mcg PO QAM #90 cap 05/15/21 07/06/21 Rx mcg (2,000 unit) capsule potassium chloride 20 mEq 20 meq PO BID #60 tab 05/30/21 07/06/21 Rx tablet,extended release darbepoetin coretta in polysorbat 60 60 mcg SUBCUT .COMPLEX syr 06/20/21 07/06/21 History mcg/0.3 mL in polysorbate injection syringe (Aranesp) carvedilol 6.25 mg tablet 6.25 mg PO BID #60 tab 06/24/21 07/06/21 Rx pantoprazole 40 mg tablet,delayed 40 mg PO BID #60 tab 06/28/21 07/06/21 Rx release rifaximin 550 mg tablet (Xifaxan) 550 mg PO BID #60 tab 06/28/21 07/06/21 Rx spironolactone 100 mg tablet 100 mg PO QAM #90 tab 06/28/21 07/06/21 Rx adalimumab 40 mg/0.4 mL 40 mg SUBCUT Q14D #2 ea 06/29/21 07/06/21 Rx subcutaneous pen kit (Humira(CF) Pen) Patient History Medical History (Updated 07/07/21 @ 02:33 by Gio Bello MD) CKD (chronic kidney disease), stage III Encounter for pre-operative examination Gastritis GAVE (gastric antral vascular ectasia) Per records GERD (gastroesophageal reflux disease) History of SCC (squamous cell carcinoma) of skin S/p removal- follows with derm Hypertension Hypothyroidism 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 Oral mucositis On mouthwash daily- no recent issues Pancytopenia Portal hypertensive gastropathy Psoriasis Psoriatic arthritis PSVT (paroxysmal supraventricular tachycardia) PVT (portal vein thrombosis) denies Spinal stenosis EPIDURAL INJECTIONS IN PAST FOR PAIN RELIEF TMJ arthralgia Urinary retention Vitamin D deficiency Wide-complex tachycardia ON METOPROLOL-F/U DR VANESSA Surgical History H/O foot surgery excision of neuroma b/l feet History of appendectomy History of arthroscopy RT KNEE History of cataract surgery RT/LEFT History of cholecystectomy History of esophagogastroduodenoscopy (EGD) History of herniorrhaphy right inguinal History of lithotripsy History of liver biopsy History of repair of rotator cuff RT/LEFT History of tooth extraction History of urologic surgery [place]ral [place] [facility] [place] Nausea and vomiting after administration of anesthetic agent S/P epidural steroid injection S/P orchiectomy Right age 9 for UDT S/P urological surgery (2018) [facility] [place] [place] Suprapubic catheter AND REMOVAL Family History Grandmother (Maternal) Diabetes Father Renal cancer Mother Aortic aneurysm Denies family history of Ovarian cancer Prostate cancer Myocardial infarction Breast cancer Colorectal cancer Social History Smoking Status: Never smoker Second Hand Exposure: No; Hx Alcohol Use: No Hx Substance Use: No Preferred Language: Moldovan Communication Ability: Effective Visual Impairment: No Limitations Hearing Ability: Hard of Hearing Battery Mechanic Required: No Beliefs That Will Affect Care: None marital status: / Current Living Situation: Spouse Current Living Situation Comment: SON LIVING WITH PT CURRENTLY current occupational status: retired How many Children do You have: 1 Feels Safe at Home: Yes caffeine: Yes during the past year weight has: increased > 10 lbs Dental Care, Regularly: No Physical Activity Frequency: Other Physical Activity Frequency Comment: currently can not excercise due to physical condition Seatbelt Use: never Sunscreen Use: No Assistive Devices: None Results & Data ([facility]) Vital Signs (Past 12 Hours) Vital Signs Temp Pulse Pulse Resp BP BP Pulse Ox 07/07/21 07:30 36.7 C 62 18 102/61 96 07/07/21 03:01 71 07/07/21 02:31 36.7 C 71 18 119/69 100 07/07/21 02:05 72 16 114/52 L 97 07/07/21 01:51 36.8 C 73 16 119/50 L 98 07/07/21 01:49 36.8 C 73 16 110/49 L 97 07/07/21 01:00 36.9 C 71 16 110/49 L 96 07/07/21 00:59 36.9 C 74 16 103/44 L 97 07/07/21 00:29 36.9 C 72 16 107/47 L 97 07/07/21 00:14 37.0 C 81 16 98/37 L 97 07/06/21 23:57 36.9 C 83 18 127/58 L 98 07/06/21 23:00 73 18 127/58 L 98 07/06/21 21:03 85 18 99 07/06/21 21:02 89 16 110/58 L 99 07/06/21 21:01 99 Laboratory Results Laboratory Tests 07/06/21 07/07/21 22:07 06:28 Hgb 6.6 L* Hct 21.3 L Sodium 138 Potassium 3.6 Chloride 104 Carbon Dioxide 27 BUN 22 Creatinine 2.13 H Calcium 8.6 Magnesium 1.8 AST 30 ALT 13 Troponin I High Sens 5.5 PG Care Time/CCT Total # of Minutes Spent Total Time Spent with Patient: Total time spent is greater than 50% in coordination of care (as documented) at patient's floor/unit and/or counseling patient: Coding
[2021-07-07] MEDS: SODIUM CHLORIDE 0.9% 1000ML 1,000 ML IV SCH (11:56)
--- NOTE | 2021-07-07 13:25 | Hospitalist Progress Note ---
Date of Service July 07, 2021 Assessment & Plan (1) GI bleed: Plan: -GI bleed/symptomatic anemia/portal hypertensive gastropathy/bright red blood per rectum- -Hemoglobin 6.4 upon admission, 6.6 after 1 unit of blood from the ED. -NPO changed to heart healthy diet as GI did not want to scope at this time -H&H every 6 hours, CBC daily -Protonix 40 mg IV twice daily -Previous bleeds have been primarily upper, however, symptoms this time sound there is at least some involvement in lower area as well, GI ordered CT abdomen pelvis to evaluate for diverticulitis -Patient would benefit with a discussion about goals of care as patient is having frequent readmissions to the hospital for GI bleeds due to chronic medical conditions. (2) Portal hypertensive gastropathy: Plan: See above (3) Symptomatic anemia: Plan: See above (4) Hypertension: Plan: -Hold oral antihypertensives: Carvedilol, furosemide, spironolactone. -Restart carvedilol tomorrow after completion of transfusion and appropriate response from repletion. (5) CKD (chronic kidney disease), stage III: Plan: -Creatinine 2.13 upon admission, with range 1.60-1.97 -Will likely improve with transfusion and IV fluids -Follow serially CODE STATUS: Full code Disposition: MedSurg DVT prophylaxis: SCDs Diet: Heart healthy (6) 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: (7) Psoriatic arthritis: (8) Psoriasis: Admission and Anticipated Discharge Date Admission Date: July 07, 2021 Supervising Physician Co-Signing Physician Notes I personally examined the patient and verified all [place] points of history and exam, discussed case, and agree with decision making with Dr Oh feeling ok. seen at same time as GI vitals noted nad heent nc at mmm breathing unlabored no accessory muscles good effort anemia/GI bleed - again likely portal hypertensive gastropathy - transfuse, follow. GI input appreciated. rocephin otherwise as above Subjective Patient seen at bedside this morning. No acute events reported overnight. Patient has a frequent history of recent hospitalizations due to GI bleeds resulting in transfusions. Patient reports he is feeling well as of now but earlier in the night he was feeling weak and a little dizzy. Seems to be doing well now that he is lying in bed. Reports no bowel movement since being placed on n.p.o. No further complaints at this time. Review of Systems Review of Systems: All systems reviewed & are unremarkable except as noted in HPI & below Physical Exam Constitutional: WD/WN, vitals as above Eyes: PERRL, conjunctivae normal, anicteric sclerae Respiratory: normal respiratory effort, lungs clear to auscultation Cardiovascular: RRR, no murmur, no edema Gastrointestinal (Abdomen): Inspection/Auscultation: abdomen normal to inspection; abdomen not distended and + abnormal bowel sounds Percussion/Palpation: + abdomen tender (LLQ) and abdomen soft Skin: no rashes, warm and dry Psychiatric: A+Ox3, euthymic affect Results & Data Results & Data ([facility]) Vital Signs (Past 12 Hours) Vital Signs Temp Pulse Pulse Resp BP BP Pulse Ox 07/07/21 13:05 36.3 C L 65 18 120/78 100 07/07/21 11:55 36.5 C 61 18 99/62 L 99 07/07/21 11:12 36.7 C 62 18 101/60 97 07/07/21 11:08 36.6 C 59 L 20 109/61 97 07/07/21 10:12 36.5 C 68 18 111/45 L 98 07/07/21 09:42 36.6 C 61 18 96/56 L 96 07/07/21 09:27 36.6 C 63 20 98/56 L 96 07/07/21 09:07 36.6 C 62 20 100/61 96 07/07/21 07:30 36.7 C 62 18 102/61 96 07/07/21 03:01 71 07/07/21 02:31 36.7 C 71 18 119/69 100 07/07/21 02:05 72 16 114/52 L 97 07/07/21 01:51 36.8 C 73 16 119/50 L 98 07/07/21 01:49 36.8 C 73 16 110/49 L 97 (1) GI bleed GI bleed type/associated pathology: unspecified gastrointestinal hemorrhage type Qualified Code(s): K92.2 - Gastrointestinal hemorrhage, unspecified
--- NOTE | 2021-07-07 14:54 | Gastrointestinal Consultation ---
Date of Consultation July 07, 2021 Assessment & Plan (1) Portal hypertensive gastropathy: (2) GI bleed: (3) 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: This is a 66 y/o male w/ SERRANO cirrhosis, with repeated admission for anemia, GIB, severe PHG w/ oozing, PHTN, now admitted for SOB/weakness, anemia, and report of bloody stool. HGB 6.4 (was 7-8). He is being transfused 2 units pRBC. He has intermittent dark stools on iron. He complains of LLQ abd pain, and change in stool caliber. He has h/o colonic AVM. On exam, soft ABD. Given his history wonder about the following diff dx: Infectious/ischemic/diverticular/AVM/malignant etiology for bloody stool. We know he has chronic oozing from PHG. He is appropriately on BB and PPI for this. - Would recommend CTAP to evaluate his lower abd pain, r/o diverticulitis, ischemia - Check stool studies for infectious etiology - Trend HGB, transfuse PRN - Continue carvedilol and PPI for h/o UGIB, severe PHG w/ oozing - Monitor and document GI output - Will arrange OP colonoscopy once his acute issues improve to evaluate his change in stool caliber, abd discomfort, h/o rectal bleeding - F/u with GI/hepatology as OP for his cirrhosis Thank you for allowing us to participate in the care of this patient. Please call with any acute changes, questions or concerns. Please see addendum below with additional recommendation from my supervising physician. Supervising Physician Co-Signing Physician Notes I have personally seen and examined the patient with Kellen Storey PA-C. Her note reflects my exam and findings. I agree with her impression and plan. I do not think the patient would benefit from repeat EGD (had one 06/22 showing portal gastropathy) Follow H/H. Check stools. Jeffery Hyatt M.D. History of Present Illness Reason for Consultation: GI bleed Requesting Physician: Dr. Oh Attending Physician: Margarito Zamudio DO History of Present Illness Pt is a 66 yo male with PMhx including PSVT, liver 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, and severe portal hypertensive gastropathy causing GI bleed history, ascites, SCC, HTN, GERD, psoriatic arthritis, spinal stenosis, CKD, and others with recent EGD x 2 (April and May 2021) with severe PHG with oozing, who presented to the ER yesterday with weakness and shortness of breath starting 2 days prior. He is on IV iron; notes at times has darker stools. On arrival HGB 6.6, ( HGB 7-8), also has COLLIN. BUN is WNL. MELD is 17. INR 1.3. Last BM was yesterday; had 1 episode of large bloody stool w/ clot. Is getting transfused 2 units PRBC right now. Repeat HGB pending. INR at baseline. He complains of several weeks of intermittent sharp LLQ abd pain, comes and goes for several minutes. Typically improve after BM. He notes his stool is narrowed more than it had been. His appetite has been decreased; has some postprandial nausea. He's unsure if he's had weight loss. Typically BMs are 2-3 x a day, [id number]. No melena, no hematemesis, n/v, no fever, chills. At times is SOB, no CP. We are asked to see him for GIB. No AC, NSAIDs, tobacco or ETOH use. EGD x 2 recently as below during previous admissions. No h/o varices. He remains on spironolactone, Lasix, and Carvedilol, PPI. 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 EGD 06/22/21: Impression: - Normal esophagus. - Regular Z-line. - Mild portal hypertensive gastropathy in the proximal body of the stomach - Antral portal hypertensive gastropathy - severe. - Normal duodenal bulb and second portion of the duodenum. Recommendation: - No evidence of active gi bleeding. - He may have mild oozing contributing to intermitttent anemia from severe antral phg - this is best treated with a non-selective beta chinedu EGD 05/16: Impression: - Normal esophagus. - Z-line regular. - Mild proximal body portal hypertensive gastropathy - Severe antral portal hypertensive gastropathy. One clip (MR conditional) was placed on an oozing area within the area noted to have severe antral portal hypertensive gastropathy. - Normal duodenal bulb and second portion of the duodenum. Recommendation: - Return to the floor. - Suspect anemia is from portal hypertensive gastropathy. - Given cirrhosis- baseline hgb should be between 7-8. - Would give an IV PPI for 24 hours and octreotide for 24 hours to help reduce portal pressure. - Thereafter, he should be on a daily beta chinedu or coreg to help reduce portal htn pressures. Allergies Allergy/AdvReac Type Severity Reaction Status Date / Time tamsulosin Allergy Intermediate HIVES Verified 07/06/21 11:55 etanercept [From Enbrel] AdvReac Unknown Increased Verified 07/06/21 11:55 infections Home Medications Medication Instructions Recorded Confirmed Type furosemide 20 mg tablet 40 mg PO BID #360 tab 06/23/20 07/06/21 Rx chlorhexidine gluconate 0.12 % 15 ml BUCCAL BID #473 ml 09/28/20 07/06/21 Rx mouthwash (Peridex) betamethasone dipropionate 0.05 % 1 applic TOPICAL DIRECTED PRN 05/10/21 07/06/21 History topical ointment cholecalciferol (vitamin D3) 50 50 mcg PO QAM #90 cap 05/15/21 07/06/21 Rx mcg (2,000 unit) capsule potassium chloride 20 mEq 20 meq PO BID #60 tab 05/30/21 07/06/21 Rx tablet,extended release darbepoetin coretta in polysorbat 60 60 mcg SUBCUT .COMPLEX syr 06/20/21 07/06/21 History mcg/0.3 mL in polysorbate injection syringe (Aranesp) carvedilol 6.25 mg tablet 6.25 mg PO BID #60 tab 06/24/21 07/06/21 Rx pantoprazole 40 mg tablet,delayed 40 mg PO BID #60 tab 06/28/21 07/06/21 Rx release rifaximin 550 mg tablet (Xifaxan) 550 mg PO BID #60 tab 06/28/21 07/06/21 Rx spironolactone 100 mg tablet 100 mg PO QAM #90 tab 06/28/21 07/06/21 Rx adalimumab 40 mg/0.4 mL 40 mg SUBCUT Q14D #2 ea 06/29/21 07/06/21 Rx subcutaneous pen kit (Humira(CF) Pen) Patient History Medical History (Updated 07/07/21 @ 15:14 by Kellen Storey PA-C) CKD (chronic kidney disease), stage III Encounter for pre-operative examination Gastritis GAVE (gastric antral vascular ectasia) Per records GERD (gastroesophageal reflux disease) History of SCC (squamous cell carcinoma) of skin S/p removal- follows with derm Hypertension Hypothyroidism 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 Oral mucositis On mouthwash daily- no recent issues Pancytopenia Portal hypertensive gastropathy Psoriasis Psoriatic arthritis PSVT (paroxysmal supraventricular tachycardia) PVT (portal vein thrombosis) denies Spinal stenosis EPIDURAL INJECTIONS IN PAST FOR PAIN RELIEF TMJ arthralgia Urinary retention Vitamin D deficiency Wide-complex tachycardia ON METOPROLOL-F/U DR VANESSA Surgical History H/O foot surgery excision of neuroma b/l feet History of appendectomy History of arthroscopy RT KNEE History of cataract surgery RT/LEFT History of cholecystectomy History of esophagogastroduodenoscopy (EGD) History of herniorrhaphy right inguinal History of lithotripsy History of liver biopsy History of repair of rotator cuff RT/LEFT History of tooth extraction History of urologic surgery Urethral reconstruction 4 years ago at [facility] [place] Nausea and vomiting after administration of anesthetic agent S/P epidural steroid injection S/P orchiectomy Right age 9 for UDT S/P urological surgery (2018) BMG urethroplasty-[facility] [place] Suprapubic catheter AND REMOVAL Family History Grandmother (Maternal) Diabetes Father Renal cancer Mother Aortic aneurysm Denies family history of Ovarian cancer Prostate cancer Myocardial infarction Breast cancer Colorectal cancer Social History Smoking Status: Never smoker Second Hand Exposure: No; Hx Alcohol Use: No Hx Substance Use: No Preferred Language: Micronesian Communication Ability: Effective Visual Impairment: No Limitations Hearing Ability: Hard of Hearing Multifocal Button Grinder Required: No Beliefs That Will Affect Care: None marital status: / Current Living Situation: Spouse Current Living Situation Comment: SON LIVING WITH PT CURRENTLY current occupational status: retired How many Children do You have: 1 Feels Safe at Home: Yes caffeine: Yes during the past year weight has: increased > 10 lbs Dental Care, Regularly: No Physical Activity Frequency: Other Physical Activity Frequency Comment: currently can not excercise due to physical condition Seatbelt Use: never Sunscreen Use: No Assistive Devices: Review of Systems Review of Systems: All systems reviewed & are unremarkable except as noted in HPI & below Physical Exam Constitutional: WD/WN, vitals as above Chronically ill, somewhat pale Eyes: PERRL, conjunctivae normal, anicteric sclerae Respiratory: normal respiratory effort, lungs clear to auscultation Cardiovascular: RRR, no murmur, no edema Gastrointestinal (Abdomen): Inspection/Auscultation: abdomen normal to inspection; abdomen not distended and + abnormal bowel sounds Percussion/Palpation: abdomen soft and normal to percussion; no guarding and abdomen not rigid mild LLQ tenderness w/o rebound Skin: no rashes, warm and dry Psychiatric: A+Ox3, euthymic affect Results & Data ([facility]) Vital Signs (Past 12 Hours) Vital Signs Temp Pulse Pulse Resp BP BP Pulse Ox 07/07/21 14:05 36.5 C 62 18 111/66 99 07/07/21 13:35 36.5 C 65 18 99/61 L 97 07/07/21 13:20 36.4 C L 69 18 101/55 L 95 07/07/21 13:05 36.3 C L 65 18 120/78 100 07/07/21 11:55 36.5 C 61 18 99/62 L 99 07/07/21 11:12 36.7 C 62 18 101/60 97 07/07/21 11:08 36.6 C 59 L 20 109/61 97 07/07/21 10:12 36.5 C 68 18 111/45 L 98 07/07/21 09:42 36.6 C 61 18 96/56 L 96 07/07/21 09:27 36.6 C 63 20 98/56 L 96 07/07/21 09:07 36.6 C 62 20 100/61 96 07/07/21 07:30 36.7 C 62 18 102/61 96 07/07/21 03:01 71 Laboratory Results 07/07/21 07/06/21 07/06/21 Range/Units 06:28 22:07 22:07 WBC 5.72 RBC 2.16 L Hgb 6.6 L* 6.4 L* Hct 21.3 L 20.7 L* MCV 95.8 MCH 29.6 MCHC 30.9 L RDW Std Deviation 65.0 H RDW Coeff of Miguel 22.6 H Plt Count 79 L MPV 10.1 Immature Gran % (Auto) 0.7 Neut % (Auto) 57.7 Lymph % (Auto) 20.1 Kane % (Auto) 14.9 Eos % (Auto) 5.9 Baso % (Auto) 0.7 Neut # (Auto) 3.30 Lymph # (Auto) 1.15 L Kane # (Auto) 0.85 H Eos # (Auto) 0.34 Baso # (Auto) 0.04 Immature Gran # (Auto) 0.04 H Absolute Nucleated RBC 0.05 H Nucleated RBC % (auto) 1.0 Neutrophils % (Manual) Band Neutrophils % Lymphocytes % (Manual) Prolymphocyte % Reactive Lymphs % (Man) Monocytes % (Manual) Eosinophils % (Manual) Basophils % (Manual) Metamyelocytes % (Man) Myelocytes % (Man) Promyelocytes % (Man) Blast Cells % (Manual) Plasma Cell % (Manual) Other Cells % Nucleated RBC % Neutrophils # (Manual) Band Neutrophils # Total Absolute Neuts Lymphocytes # (Manual) Prolymphocyte # Reactive Lymphs # Total Abs Lymphocytes Monocytes # (Manual) Eosinophils # (Manual) Basophils # (Manual) Metamyelocytes # (Man) Myelocytes # (Manual) Promyelocytes # (Man) Blast Cells # (Man) Plasma Cell # (Manual) Other Cells # Nucleated RBCs # (Man) Hypersegmented Neuts Hyposegmented Neuts Hypogranular Neuts Large Granular Lymphs # Lrg Granular Lymphs Hairy Cells Smudge Cells Toxic Granulation Toxic Vacuolation Dohle Bodies Analia Rods Platelet Estimate Hypogranular Platelets Clumped Platelets Giant Platelets Platelet Satelliting RBC Morphology Polychromasia 1+ Hypochromasia Poikilocytosis Basophilic Stippling Anisocytosis Present Microcytosis Macrocytosis Spherocytes Pappenheimer Bodies Sickle Cells Target Cells Tear Drop Cells Ovalocytes Stomatocytes [place] Bodies Echinocytes Acanthocytes (Spur) Rouleaux RBC Agglutinates Schistocytes RBC Morph Comment Sezary Cell PT (9.0-12.0) Seconds INR (0.9-1.1) APTT (21.0-31.0) Seconds PTT Ratio Sodium 138 (136-145) mmol/L Potassium 3.6 (3.5-5.1) mmol/L Chloride 104 (98-107) mmol/L Carbon Dioxide 27 (21-32) mmol/L Anion Gap 7 (3-11) BUN 22 (6-23) mg/dl Creatinine 2.13 H (0.6-1.4) mg/dl Est Cr Clr Drug Dosing 45.0 ml/min Est GFR ( Amer) 36.0 ml/min Est GFR (Non-Af Amer) 31.1 ml/min BUN/Creatinine Ratio 10.3 (10-20) Glucose 177 H (70-99(Fasting)) mg/dl Calcium 8.6 (8.5-10.1) mg/dl Magnesium 1.8 (1.7-2.4) mg/dl Total Bilirubin 1.3 H (0.2-1.0) mg/dl Direct Bilirubin 0.3 H (0-0.2) mg/dl AST 30 (13-39) U/L ALT 13 (7-52) U/L Alkaline Phosphatase 93 (34-104) U/L Troponin I High Sens 5.5 (0-20) pg/ml Total Protein 5.6 L (6.0-8.3) gm/dl Albumin 2.3 L (3.4-5.0) gm/dl Lipase 23 (11-82) U/L SARS-CoV-2, RNA, NAAT (NEGATIVE) Blood Type Antibody Screen Crossmatch 07/06/21 07/06/21 07/06/21 Range/Units 22:07 21:59 21:24 WBC Cancelled RBC Cancelled Hgb Cancelled Hct Cancelled MCV Cancelled MCH Cancelled MCHC Cancelled RDW Std Deviation Cancelled RDW Coeff of Miguel Cancelled Plt Count Cancelled MPV Cancelled Immature Gran % (Auto) Cancelled Neut % (Auto) Cancelled Lymph % (Auto) Cancelled Kane % (Auto) Cancelled Eos % (Auto) Cancelled Baso % (Auto) Cancelled Neut # (Auto) Cancelled Lymph # (Auto) Cancelled Kane # (Auto) Cancelled Eos # (Auto) Cancelled Baso # (Auto) Cancelled Immature Gran # (Auto) Cancelled Absolute Nucleated RBC Cancelled Nucleated RBC % (auto) Cancelled Neutrophils % (Manual) Cancelled Band Neutrophils % Cancelled Lymphocytes % (Manual) Cancelled Prolymphocyte % Cancelled Reactive Lymphs % (Man) Cancelled Monocytes % (Manual) Cancelled Eosinophils % (Manual) Cancelled Basophils % (Manual) Cancelled Metamyelocytes % (Man) Cancelled Myelocytes % (Man) Cancelled Promyelocytes % (Man) Cancelled Blast Cells % (Manual) Cancelled Plasma Cell % (Manual) Cancelled Other Cells % Cancelled Nucleated RBC % Cancelled Neutrophils # (Manual) Cancelled Band Neutrophils # Cancelled Total Absolute Neuts Cancelled Lymphocytes # (Manual) Cancelled Prolymphocyte # Cancelled Reactive Lymphs # Cancelled Total Abs Lymphocytes Cancelled Monocytes # (Manual) Cancelled Eosinophils # (Manual) Cancelled Basophils # (Manual) Cancelled Metamyelocytes # (Man) Cancelled Myelocytes # (Manual) Cancelled Promyelocytes # (Man) Cancelled Blast Cells # (Man) Cancelled Plasma Cell # (Manual) Cancelled Other Cells # Cancelled Nucleated RBCs # (Man) Cancelled Hypersegmented Neuts Cancelled Hyposegmented Neuts Cancelled Hypogranular Neuts Cancelled Large Granular Lymphs Cancelled # Lrg Granular Lymphs Cancelled Hairy Cells Cancelled Smudge Cells Cancelled Toxic Granulation Cancelled Toxic Vacuolation Cancelled Dohle Bodies Cancelled Analia Rods Cancelled Platelet Estimate Cancelled Hypogranular Platelets Cancelled Clumped Platelets Cancelled Giant Platelets Cancelled Platelet Satelliting Cancelled RBC Morphology Cancelled Polychromasia Cancelled Hypochromasia Cancelled Poikilocytosis Cancelled Basophilic Stippling Cancelled Anisocytosis Cancelled Microcytosis Cancelled Macrocytosis Cancelled Spherocytes Cancelled Pappenheimer Bodies Cancelled Sickle Cells Cancelled Target Cells Cancelled Tear Drop Cells Cancelled Ovalocytes Cancelled Stomatocytes Cancelled [place] Bodies Cancelled Echinocytes Cancelled Acanthocytes (Spur) Cancelled Rouleaux Cancelled RBC Agglutinates Cancelled Schistocytes Cancelled RBC Morph Comment Cancelled Sezary Cell Cancelled PT 14.1 H (9.0-12.0) Seconds INR 1.3 H (0.9-1.1) APTT 37.1 H (21.0-31.0) Seconds PTT Ratio 1.3 Sodium (136-145) mmol/L Potassium (3.5-5.1) mmol/L Chloride (98-107) mmol/L Carbon Dioxide (21-32) mmol/L Anion Gap (3-11) BUN (6-23) mg/dl Creatinine (0.6-1.4) mg/dl Est Cr Clr Drug Dosing ml/min Est GFR ( Amer) ml/min Est GFR (Non-Af Amer) ml/min BUN/Creatinine Ratio (10-20) Glucose (70-99(Fasting)) mg/dl Calcium (8.5-10.1) mg/dl Magnesium (1.7-2.4) mg/dl Total Bilirubin (0.2-1.0) mg/dl Direct Bilirubin (0-0.2) mg/dl AST (13-39) U/L ALT (7-52) U/L Alkaline Phosphatase (34-104) U/L Troponin I High Sens (0-20) pg/ml Total Protein (6.0-8.3) gm/dl Albumin (3.4-5.0) gm/dl Lipase (11-82) U/L SARS-CoV-2, RNA, NAAT NEGATIVE (NEGATIVE) Blood Type Antibody Screen Crossmatch 07/06/21 Range/Units 20:55 WBC RBC Hgb Hct MCV MCH MCHC RDW Std Deviation RDW Coeff of Miguel Plt Count MPV Immature Gran % (Auto) Neut % (Auto) Lymph % (Auto) Kane % (Auto) Eos % (Auto) Baso % (Auto) Neut # (Auto) Lymph # (Auto) Kane # (Auto) Eos # (Auto) Baso # (Auto) Immature Gran # (Auto) Absolute Nucleated RBC Nucleated RBC % (auto) Neutrophils % (Manual) Band Neutrophils % Lymphocytes % (Manual) Prolymphocyte % Reactive Lymphs % (Man) Monocytes % (Manual) Eosinophils % (Manual) Basophils % (Manual) Metamyelocytes % (Man) Myelocytes % (Man) Promyelocytes % (Man) Blast Cells % (Manual) Plasma Cell % (Manual) Other Cells % Nucleated RBC % Neutrophils # (Manual) Band Neutrophils # Total Absolute Neuts Lymphocytes # (Manual) Prolymphocyte # Reactive Lymphs # Total Abs Lymphocytes Monocytes # (Manual) Eosinophils # (Manual) Basophils # (Manual) Metamyelocytes # (Man) Myelocytes # (Manual) Promyelocytes # (Man) Blast Cells # (Man) Plasma Cell # (Manual) Other Cells # Nucleated RBCs # (Man) Hypersegmented Neuts Hyposegmented Neuts Hypogranular Neuts Large Granular Lymphs # Lrg Granular Lymphs Hairy Cells Smudge Cells Toxic Granulation Toxic Vacuolation Dohle Bodies Analia Rods Platelet Estimate Hypogranular Platelets Clumped Platelets Giant Platelets Platelet Satelliting RBC Morphology Polychromasia Hypochromasia Poikilocytosis Basophilic Stippling Anisocytosis Microcytosis Macrocytosis Spherocytes Pappenheimer Bodies Sickle Cells Target Cells Tear Drop Cells Ovalocytes Stomatocytes [place] Bodies Echinocytes Acanthocytes (Spur) Rouleaux RBC Agglutinates Schistocytes RBC Morph Comment Sezary Cell PT (9.0-12.0) Seconds INR (0.9-1.1) APTT (21.0-31.0) Seconds PTT Ratio Sodium (136-145) mmol/L Potassium (3.5-5.1) mmol/L Chloride (98-107) mmol/L Carbon Dioxide (21-32) mmol/L Anion Gap (3-11) BUN (6-23) mg/dl Creatinine (0.6-1.4) mg/dl Est Cr Clr Drug Dosing ml/min Est GFR ( Amer) ml/min Est GFR (Non-Af Amer) ml/min BUN/Creatinine Ratio (10-20) Glucose (70-99(Fasting)) mg/dl Calcium (8.5-10.1) mg/dl Magnesium (1.7-2.4) mg/dl Total Bilirubin (0.2-1.0) mg/dl Direct Bilirubin (0-0.2) mg/dl AST (13-39) U/L ALT (7-52) U/L Alkaline Phosphatase (34-104) U/L Troponin I High Sens (0-20) pg/ml Total Protein (6.0-8.3) gm/dl Albumin (3.4-5.0) gm/dl Lipase (11-82) U/L SARS-CoV-2, RNA, NAAT (NEGATIVE) Blood Type O Positive Antibody Screen NEGATIVE Crossmatch See Detail (1) GI bleed GI bleed type/associated pathology: unspecified gastrointestinal hemorrhage type Qualified Code(s): K92.2 - Gastrointestinal hemorrhage, unspecified
--- NOTE | 2021-07-07 16:46 | CT Scan Report ---
ABDOMEN AND PELVIS CT WITHOUT CONTRAST CT DOSE: 1502.73 mGy.cm HISTORY: Left lower quadrant pain. TECHNIQUE: Multiaxial CT images of the abdomen and pelvis were performed without contrast. A dose lo wering technique was utilized adhering to the principles of ALARA. COMPARISON STUDY: Abdomen and pelvis CT 06/20/2021. FINDINGS: Trace bilateral pleural effusions. There are mild dependent changes seen within the lung ba ses. No pneumoperitoneum. No pneumatosis. No fractures within the visualized osseous structures. The heart remains mildly enlarged. Mild/moderate body wall edema again noted. Prior cholecystectomy. Nodu lar and atrophic liver consistent with cirrhosis. The spleen remains mildly enlarged measuring 14 cm in length. Normal left adrenal gland. Subcentimeter bilateral pulmonary nodules remain stable. Modera te bilateral cortical renal scarring, unchanged. Bilateral nephrolithiasis. Left splenorenal varicosi ties again noted. No ureteral stones. No hydronephrosis. Normal caliber abdominal aorta. No retroperi toneal lymphadenopathy. There is moderate bladder wall thickening with adjacent fat stranding. This i s similar to the prior study. Trace ascites. Mild thickening of the ascending colon with adjacent per icolonic edema/fat stranding. This could be due to a portal colopathy from the patient's cirrhosis or a nonspecific colitis. No perforation or abscess identified. The appendix is not identified and repo rtedly surgically absent. Questionable thickening within the descending colon is likely due to underd istention. A low-grade colitis could also have a similar appearance. No evidence for bowel obstructio n. Mild gastric wall thickening, unchanged. This could be chronic. Questionable mild peripancreatic e rain is likely due to mesenteric edema from the patient's diffuse edematous state. IMPRESSION: 1. Cirrhotic liver with splenomegaly and trace ascites. 2. Mild gastric wall thickening, unchanged. This could represent a mild chronic gastritis. 3. Moderate bladder wall thickening is also similar to the prior study. This could be chronic or repr esent a cystitis. Recommend correlation with urinalysis. 4. Mild thickening of the ascending colon with adjacent pericolonic edema/fat stranding. This could b e due to a portal colopathy from the patient's cirrhosis or a nonspecific colitis. 5. Questionable thickening within the descending colon is likely due to underdistention. A low-grade colitis could also have a similar appearance. 6. Bilateral nephrolithiasis. No ureteral stones. No hydronephrosis. 7. Additional findings as described above. ACT 112: Negative or not required by law. Electronically signed by: Joaquín Bolden M.D. 07/07/2021 4:43 PM
--- NOTE | 2021-07-07 17:20 | Billing Data ---
Date of Service July 07, 2021 Coding Level of Care Code 67557 Subseq Hosp Care Lvl 3
[2021-07-07 19:38] LABS: Hematocrit (blood only) 29.2 % (42-52); Hemoglobin 9.3 g/dL (14.0-18.0)
--- NOTE | 2021-07-07 21:53 | Electrocardiogram Report ---
Test Reason : Blood Pressure : / mmHG Vent. Rate : 074 BPM Atrial Rate : 074 BPM P-R Int : 160 ms QRS Dur : 096 ms QT Int : 414 ms P-R-T Axes : 008 -11 011 degrees QTc Int : 459 ms Normal sinus rhythm Low voltage QRS Incomplete right bundle branch block Cannot rule out Anterior infarct , age undetermined Abnormal ECG When compared with ECG of 20-JUN-2021 16:22, QT has shortened Confirmed by Pepe Clarke ([id number]) on 07/07/2021 9:53:10 PM Referred By: REFERRED SELF Confirmed By:Pepe Clarke
[2021-07-08 00:33] LABS: Hematocrit (blood only) 26.7 % (42-52); Hemoglobin 8.6 g/dL (14.0-18.0)
[2021-07-08] MEDS: SODIUM CHLORIDE 0.9% 1000ML 1,000 ML IV SCH (02:53)
[2021-07-08] MEDS: cefTRIAXone SODIUM 2,000 MG in DEXTROSE 5% 50 ML IV SCH (05:38)
[2021-07-08 06:29] LABS: Hematocrit (blood only) 27.2 % (42-52); Hemoglobin 8.6 g/dL (14.0-18.0); Mean Corpuscular Hemoglobin 30.4 pg (25-34); Mean Corpuscular Hgb Conc 31.6 g/dL (32-36); Mean Corpuscular Volume 96.1 fL (80-100); RDW Coefficient of Variation 22.6 % (11.5-14.5); RDW Standard Deviation 62.5 fL (36.4-46.3); Red Blood Count 2.83 M/uL (4.7-6.1); White Blood Count 4.26 K/uL (4.8-10.8)
[2021-07-08 06:32] LABS: Mean Platelet Volume 10.1 fL (7.4-10.4); Platelet Count 67 K/uL (130-400)
[2021-07-08 06:47] LABS: BUN Creatinine Ratio 11.6 (10-20); Calcium 8.2 mg/dl (8.5-10.1); Est GFR (African American) 43.9 ml/min; Est GFR (Non-African American) 37.8 ml/min; Magnesium 1.8 mg/dl (1.7-2.4); Phosphorus 2.8 mg/dl (2.5-4.9); Potassium 4.2 mmol/L (3.5-5.1)
[2021-07-08 07:36] LABS: Anisocytosis Present; Basophils # (auto) 0.02 K/uL (0-0.2); Basophils % (auto) 0.5 %; Eosinophils # (auto) 0.26 K/uL (0-0.5); Eosinophils % (auto) 6.1 %; Immature Granulocytes # (auto) 0.02 K/uL (0.00-0.02); Immature Granulocytes % (auto) 0.5 %; Lymphocytes # (auto) 0.96 K/uL (1.2-3.4); Lymphocytes % (auto) 22.5 %; Monocytes # (auto) 0.44 K/uL (0.11-0.59); Monocytes % (auto) 10.3 %; Neutrophils # (auto) 2.56 K/uL (1.4-6.5); Neutrophils % (auto) 60.1 %; Polychromasia 1+
[2021-07-08] MEDS: PANTOprazole 40 MG in SYRINGE 0 ML IV SCH (08:45)
--- NOTE | 2021-07-08 13:17 | Discharge Summary ---
Date of Service July 08, 2021 Admission HPI Per Admitting Provider The patient is a 66-year-old male with a past medical history including PSVT, psoriasis, ascites, fatty liver, wide-complex tachycardia, squamous cell carcinoma of skin, hypothyroidism, hypertension, GERD, psoriatic arthritis, spinal stenosis, CKD, liver 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, and severe portal hypertensive gastropathy causing GI bleed history. Patient had gotten IV iron yesterday, and had noted his stools being dark as usually happens with the IV iron. However, he noted in the commode there was bright red blood and a large blood clot, which is new for him. He also notes lower abdominal and pelvic discomfort, which is new for him as well. He had an EGD done on 05/11, which showed severe portal hypertensive gastropathy that was managed with a single clip. His last colonoscopy was more than 10 years ago, and reports 5 polyps being removed Principal Diagnosis Anemia 2/2 GI Bleed Discharge Exam Constitutional WD/WN, vitals as above Eyes PERRL, conjunctivae normal, anicteric sclerae Respiratory normal respiratory effort, lungs clear to auscultation Cardiovascular Rate/Rhythm: regular rate and regular rhythm Extremities: + edema Gastrointestinal (Abdomen) Inspection/Auscultation: abdomen normal to inspection; abdomen not distended and + abnormal bowel sounds Percussion/Palpation: + abdomen tender (LLQ) and abdomen soft Musculoskeletal Head/Neck/Chest: normocephalic and head atraumatic Skin no rashes, warm and dry Psychiatric A+Ox3, euthymic affect Discharge Data Allergies Allergy/AdvReac Type Severity Reaction Status Date / Time tamsulosin Allergy Intermediate HIVES Verified 07/06/21 11:55 etanercept [From Enbrel] AdvReac Unknown Increased Verified 07/06/21 11:55 infections Consultations 07/06/21 23:36 ED Decision to Admit Stat 07/07/21 10:00 Consult Gastroenterology Routine Ordered Studies 07/07/21 14:22 CT abd pelvis wo con Urgent Hospital Course (1) GI bleed: -GI bleed/symptomatic anemia/portal hypertensive gastropathy/bright red blood per rectum- -Hemoglobin 6.4 upon admission, stabilized at 8.6 after 3 units total -GI recommends outpatien colonoscopy -Protonix 40 mg d/c'd -Previous bleeds have been primarily upper, however, symptoms this time sound there is at least some involvement in lower area as well, CT found no evidence of diverticulitis, but did show evidence of chronic conditions -Patient would benefit with a discussion about goals of care as patient is having frequent readmissions to the hospital for GI bleeds due to chronic medical conditions. (2) Portal hypertensive gastropathy: See above (3) Symptomatic anemia: See above (4) Hypertension: -Restart antihypertensives -Restart carvedilol tomorrow after completion of transfusion and appropriate response from repletion. (5) CKD (chronic kidney disease), stage III: -Creatinine 2.13 upon admission, improved to baseline at 1.8 today CODE STATUS: Conditional Code, DNI Disposition: Home self care Diet: Heart healthy (6) 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: (7) Psoriatic arthritis: (8) Psoriasis: Total Time Total Time Spent Total Time Spent (In Minutes): <30 Discharge Plan Discharge Items Patient Disposition: Home - Self-Care Reason For Visit: GI BLEED, ANEMIA Discharge Diagnosis: Anemia secondary to GI bleed Activity: Per Instructions section Non-emergency contact: Primary Care Provider and Strap Buckler Call non-emergency contact if: you have any medication questions Follow-up/Referrals: Fiorella Castellano DO [Primary Care Provider] - Jeffery Hyatt MD [Physician] - Diet: Low Sodium (2gm) Addtl Attending Provider Instructions: You are seen in the hospital for the concern of weakness and defecating blood clots. While you are here it was found you had a significant anemia secondary to a gastrointestinal bleed. 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 Because of this anemia you were given 3 units of blood total for which you responded appropriately. Your blood levels were monitored overnight and her hemoglobin has maintained stability at what is a chronic normal level for you. Because of UGI bleed, gastroenterology was consulted who recommended having a colonoscopy performed outpatient. I have put Dr. Hyatt on as a follow-up, so an appointment should be set up with him after your discharge to have a routine colonoscopy done. Otherwise follow-up with your primary care provider within 1 week of discharge. Has been a pleasure to be a part of your care and we wish you the best in both your health and your recovery. Pending Studies at Discharge: No Stand-Alone Forms: My [facility], Smoking Cessation Medications and DC Order Prescriptions: Continued cholecalciferol (vitamin D3) 50 mcg (2,000 unit) capsule 50 mcg PO QAM Qty: 90 RF: 3 potassium chloride 20 mEq tablet extended release 20 meq PO BID Qty: 60 RF: 2 pantoprazole 40 mg tablet,delayed release (DR/EC) 40 mg PO BID Qty: 60 RF: 5 Xifaxan 550 mg tablet 550 mg PO BID Qty: 60 RF: 5 Humira(CF) Pen 40 mg/0.4 mL pen injector kit 40 mg subcut Q14D Qty: 2 RF: 5 furosemide 20 mg tablet 40 mg PO BID Qty: 360 RF: 2 chlorhexidine gluconate [Peridex] 0.12 % mouthwash 15 ml buccal BID Qty: 473 RF: 2 spironolactone 100 mg tablet 100 mg PO QAM Qty: 90 RF: 2 Aranesp (in polysorbate) 60 mcg/0.3 mL syringe 60 mcg subcut .COMPLEX RF: 0 betamethasone dipropionate 0.05 % ointment 1 applic topical DIRECTED PRN (Reason: Skin Irritation) RF: 0 carvedilol 6.25 mg Tablet 6.25 mg PO BID Qty: 60 RF: 0 Discharge Orders: Discharge Order (Routine); Ordered 07/08/21 Ordered By: Leonard Oh Admission Data Admit Date/Time: 07/07/21 00:49 Attending Provider: Margarito Zamudio Admit Provider: Gio Bello Primary Care Provider: Fiorella Castellano Other Providers: Gio Bello ; Jeffery Hyatt Other Interventions: Discharge Summary Assessment (RN) Last Done: 07/08/21 14:42 Supervising Physician Co-Signing Physician Notes I personally examined the patient and verified all [place] points of history and exam, discussed case, and agree with decision making with Dr Oh feeling ok. some mild dark stool but no other problems no abdominal pain vitals noted nad heent nc at mmm breathing unlabored no accessory muscles good effort anemia/GI bleed - again likely portal hypertensive gastropathy - transfused, improved. GI input appreciated. rocephin --> cipro. discussed palliative thought process given his recent decline/bleed-rebleed and need for frequent transfusions - but also discussed right now problems have been able to be temporized. he enjoys life -- fornow continue current plan of care/temporizing situations otherwise as above
--- NOTE | 2021-07-08 17:13 | Billing Data ---
Date of Service July 08, 2021 Coding Level of Care Code D/C DAY MANAGEMENT <30 MINS
== END 2021-07-08 15:12 | disposition home or self-care (01) | DRG 378 ==
LOC: ED 20:31 → SUATTDRO 07-07 00:49 → 2S 07-07 00:49 → 3W 07-07 16:10

== ENCOUNTER 2021-11-26 09:29 | Inpatient (IN) ==
--- NOTE | 2021-11-26 09:53 | Emergency Department Note ---
Impression & Plan Acute hepatic encephalopathy, Urinary tract infection, Acute alteration in mental status, Thrombocytopenia ED Provider Note NAME: SHMUEL KNOTT AGE: 66 SEX: M : 1955 ARRIVES VIA: Ambulance INFORMANT: Patient, EMS ED PROVIDER(S): Dc Foley DO CHIEF COMPLAINT: Altered mental status HPI: The patient is a 66-year-old male who presented to the emergency department for an evaluation of altered mental status. The patient's family called 911 this morning. Apparently he was last in his normal neurologic baseline yester day. It is unclear exactly what time. The patient has had no trauma according to the EMS personnel. The patient himself offers no complaints. The family called 911 this morning because his symptoms continued. It sounds that he may have had similar symptoms in the past. He does have a history of cirrhosis secondary to [place]. There is been no reported black or bloody bowel movements. The patient has had no fever. He has had some decreased p.o. intake. He denies having any chest pain or difficulty breathing. The patient presented to the emergency department covered in stool and smelling of urine. No fever was reported. ROS: See above HPI for pertinent positives & negatives. A total of 10 systems reviewed and were otherwise negative. PAST MEDICAL HISTORY: See Below PAST SURGICAL HISTORY: See Below FAMILY HISTORY: See Below SOCIAL HISTORY: See Below HOME MEDICATIONS: See Below ALLERGIES: See Below VITALS: See Below PHYSICAL EXAMINATION: GENERAL: The patient is awake and looking around the room. The patient answers questions slowly. EYES: The conjunctivae are clear. The pupils are round and reactive. EARS, NOSE, MOUTH AND THROAT: The nose is without any evidence of any deformity. Mucous membranes are dry. NECK: The neck is nontender and supple. RESPIRATORY: Shallow respiratory effort was noted. There is no rales rhonchi or wheezing appreciated. CARDIOVASCULAR: Regular rate and rhythm noted there no murmurs rubs or gallops normal S1 normal S2. GASTROINTESTINAL: The abdomen was soft and nondistended. There is no tenderness guarding rigidity. Rectal exam revealed brown stool which was heme positive. MUSCULOSKELETAL/EXTREMITIES: There is no evidence of gross deformity full range of motion is noted in the hips and shoulders. SKIN: Skin is cool and dry. Trace pedal edema was noted bilaterally. NEUROLOGIC: Patient is awake to verbal commands. The patient is oriented to person but not place time or situation. Strength was symmetric but diminished. MEDICAL DECISION MAKING: [Provider summary] Triage Nursing notes reviewed. [Prior medical records reviewed] Vital Signs: reviewed and remarkable for [no significant abnormalities] Differential diagnosis: Infection, hypoglycemia, electrolyte abnormalities, overdose, toxicologic, cardiac sources, intracerebral event, neurologic, trauma, as well as other pathologies. ER treatment provided: See below Diagnostics interpreted by me: ECG: EKG was obtained in the emergency department. My interpretation is normal sinus rhythm at 93 bpm. Low voltage was noted. Poor R wave progression was noted. This was compared to a tracing from July 06, 2021. No changes were noted. Cardiac Monitoring: An order was placed for continuous cardiac monitoring. The monitor shows a rate of [] with [] rhythm. Laboratory studies: [As stated above and show below.] Imaging studies: [See below] Consultation(s): [none] ED COURSE: [] Procedures: [none] [PDMP:reviewed and no issues] [Critical Care:] [None] Past Med/Surg History Medical History Anemia 3 BLOOD TRANSFUSIONS SINCE APRIL- UNSURE WHERE BLOOD LOSS IS COMING FROM [facility] Cervical disc disease CKD (chronic kidney disease), stage III Depression GAVE (gastric antral vascular ectasia) Per records GERD (gastroesophageal reflux disease) History of herniated intervertebral disc lumbar area History of SCC (squamous cell carcinoma) of skin S/p removal- follows with derm Hx of blood clots 06/2021 @ [facility]- pt reports blood clot in left arm around IV site after being discharged from hospital- no meds due to current blood loss issue- warm compresses to site per pt- 2 ultrasounds done - no current issues Hypertension Hypothyroidism 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 Lumbar disc disease Oral mucositis On mouthwash daily- no recent issues Portal hypertensive gastropathy Psoriasis Psoriatic arthritis PVT (portal vein thrombosis) denies Spinal stenosis EPIDURAL INJECTIONS IN PAST FOR PAIN RELIEF TMJ arthralgia Urinary retention Wide-complex tachycardia ON CARDVEDILOL-F/U DR VANESSA LAST VISIT<1 YR AGO Surgical History H/O foot surgery excision of neuroma b/l feet History of appendectomy History of arthroscopy RT KNEE History of cataract surgery RT/LEFT History of cholecystectomy History of esophagogastroduodenoscopy (EGD) History of herniorrhaphy right inguinal History of lithotripsy History of liver biopsy History of repair of rotator cuff RT/LEFT History of tooth extraction History of urologic surgery Urethral reconstruction 4 years ago at [facility] Nausea and vomiting after administration of anesthetic agent S/P colonoscopy S/P epidural steroid injection S/P orchiectomy Right age 9 for UDT S/P urological surgery (2018) BMG urethroplasty-[facility] Suprapubic catheter AND REMOVAL Family History Grandmother (Maternal) Diabetes Father Renal cancer Mother Aortic aneurysm Denies family history of Ovarian cancer Prostate cancer Myocardial infarction Breast cancer Colorectal cancer Social History Smoking Status: Never smoker Second Hand Exposure: No; Hx Alcohol Use: No Hx Substance Use: No Preferred Language: Japanese Communication Ability: Effective Visual Impairment: No Limitations Hearing Ability: Hard of Hearing Surgical Dressing Maker Required: No Beliefs That Will Affect Care: None marital status: / Current Living Situation: Spouse Current Living Situation Comment: SON LIVING WITH PT CURRENTLY current occupational status: retired How many Children do You have: 1 Feels Safe at Home: Yes Diet Comment: regular caffeine: Yes during the past year weight has: decreased > 10 lbs Dental Care, Regularly: No Physical Activity Frequency: Other Physical Activity Frequency Comment: does all housework/outside work and cuts wood Seatbelt Use: never Sunscreen Use: No Assistive Devices: Glasses and Other Allergies Allergies Allergy/AdvReac Type Severity Reaction Status Date / Time tamsulosin Allergy Intermediate HIVES Verified 10/25/21 13:14 etanercept [From Enbrel] AdvReac Unknown Increased Verified 10/25/21 13:14 infections Home Meds Home Medications Medication Instructions Recorded Confirmed betamethasone dipropionate 0.05 % 1 applic topical DIRECTED PRN 05/10/21 10/27/21 topical ointment Skin Irritation vitamin B complex 1 tab PO DAILY 10/23/21 10/27/21 Previous Rx's Medication Instructions Recorded furosemide 20 mg tablet 40 mg PO BID #360 tabs 06/23/20 cholecalciferol (vitamin D3) 50 50 mcg PO QAM #90 caps 05/15/21 mcg (2,000 unit) capsule pantoprazole 40 mg tablet,delayed 40 mg PO BID #60 tabs 06/28/21 release rifaximin 550 mg tablet (Xifaxan) 550 mg PO BID #60 tabs 06/28/21 spironolactone 100 mg tablet 100 mg PO QAM #90 tabs 06/28/21 adalimumab 40 mg/0.4 mL 40 mg (0.4 mL) subcut Q14D #2 ea 06/29/21 subcutaneous pen kit (Humira(CF) Pen) sertraline 25 mg tablet 25 mg PO DAILY #30 tabs 08/23/21 lactulose 10 gram/15 mL oral 20 g (30 mL) PO BID #946 mL 09/19/21 solution darbepoetin coretta in polysorbat 60 60 mcg (0.3 mL) subcut .COMPLEX #2 09/27/21 mcg/0.3 mL in polysorbate SYRINGES injection syringe (Aranesp) carvedilol 6.25 mg tablet 6.25 mg PO BID #180 tabs 10/25/21 potassium chloride 20 mEq 20 meq PO DAILY #90 tabs 10/25/21 tablet,extended release Results & Data (ED) Vital Signs Vital Signs - 24 hr 11/26/21 09:53 11/26/21 09:53 11/26/21 10:00 Temperature 36.7 C Temperature Source Oral Pulse Rate 68 80 Pulse Rate from SpO2 Sensor 75 Respiratory Rate 16 19 Blood Pressure 144/80 H Blood Pressure Mean 101 Pulse Oximetry 100 99 Oxygen Delivery Method Room Air Room Air Room Air Sepsis New/Unexplained Change in Mental Status Yes Sepsis Action Taken by Nursing Physician Notified 11/26/21 10:01 11/26/21 10:01 11/26/21 10:15 Temperature Temperature Source Pulse Rate 103 H 107 H Pulse Rate from SpO2 Sensor 91 H 88 Respiratory Rate 17 15 Blood Pressure 129/77 Blood Pressure Mean 94 Pulse Oximetry 100 99 Oxygen Delivery Method Room Air Room Air Sepsis New/Unexplained Change in Mental Status Sepsis Action Taken by Nursing 11/26/21 10:30 11/26/21 10:30 11/26/21 10:45 Temperature Temperature Source Pulse Rate 110 H 80 Pulse Rate from SpO2 Sensor 88 77 Respiratory Rate 17 19 Blood Pressure 131/76 Blood Pressure Mean 94 Pulse Oximetry 99 99 Oxygen Delivery Method Room Air Room Air Sepsis New/Unexplained Change in Mental Status Sepsis Action Taken by Nursing 11/26/21 11:30 11/26/21 11:30 Temperature Temperature Source Pulse Rate 72 Pulse Rate from SpO2 Sensor 80 Respiratory Rate 16 Blood Pressure 123/64 Blood Pressure Mean 83 Pulse Oximetry 99 Oxygen Delivery Method Room Air Sepsis New/Unexplained Change in Mental Status Sepsis Action Taken by [facility] Medications Current Medication List: was personally reviewed by me Laboratory Data Attestation: I reviewed the patient's lab results. Result diagrams: 11/26/21 09:50 11/26/21 09:50 Lab Results 11/26/21 11/26/21 11/26/21 Range/Units 09:50 09:50 09:50 WBC 5.30 (4.8-10.8) K/ul RBC 3.05 L (4.63-6.08) M/uL Hgb 10.6 L (14.0-18.0) g/dl Hct 31.7 L (40.1-51.0) % MCV 103.9 H (80.0-100.0) fL MCH 34.8 H (25.0-34.0) pg MCHC 33.4 (32.0-36.0) g/dL RDW Std Deviation 68.8 H (36.4-46.3) fL RDW Coeff of Miguel 17.7 H (11.5-14.5) % Plt Count 98 L (130-400) K/uL MPV 9.7 (9.4-12.4) fL Immature Gran % (Auto) 0.2 % Neut % (Auto) 66.7 % Lymph % (Auto) 15.3 % Door % (Auto) 12.6 % Eos % (Auto) 4.3 % Baso % (Auto) 0.9 % Neut # (Auto) 3.53 (1.4-6.5) K/uL Lymph # (Auto) 0.81 L (1.2-3.4) K/uL Door # (Auto) 0.67 (0.24-0.82) K/uL Eos # (Auto) 0.23 (0-0.50) K/uL Baso # (Auto) 0.05 (0-0.2) K/uL Immature Gran # (Auto) 0.01 (0.00-0.02) K/uL PT 12.6 H (9.0-12.0) Seconds INR 1.2 H (0.9-1.1) APTT 27.6 (21.0-31.0) Seconds PTT Ratio 1.0 VBG pH (7.36-7.41) VBG pCO2 (38-50) mmHg VBG pO2 mmHg VBG HCO3 mmol/L VBG O2 Saturation % VBG Base Excess mEq/L Sodium 138 (136-145) mmol/L Potassium 5.0 (3.5-5.1) mmol/L Chloride 110 H (98-107) mmol/L Carbon Dioxide 22 (21-32) mmol/L Anion Gap 6 (3-11) BUN 25 H (6-23) mg/dl Creatinine 1.75 H (0.6-1.4) mg/dl Est Cr Clr Drug Dosing Not Reportable Est GFR ( Amer) 45.7 ml/min Est GFR (Non-Af Amer) 39.4 ml/min BUN/Creatinine Ratio 14.3 (10-20) Glucose 134 H (70-99(Fasting)) mg/dl Lactate (0.4-2.0) mmol/L Calcium 9.9 (8.5-10.1) mg/dl Magnesium 1.8 (1.7-2.4) mg/dl Total Bilirubin 2.7 H (0.2-1.0) mg/dl Direct Bilirubin 0.6 H (0-0.2) mg/dl AST 42 H (13-39) U/L ALT 22 (7-52) U/L Alkaline Phosphatase 106 H (34-104) U/L Ammonia (18-72) umol/L Troponin I High Sens 7.0 (0-20) pg/ml Total Protein 6.0 (6.0-8.3) gm/dl Albumin 2.8 L (3.4-5.0) gm/dl Procalcitonin (0-0.5) ng/ml Urine Color Urine Appearance (Clear) Urine pH (4.5-7.5) Ur Specific [place] (1.000-1.030) Urine Protein (Negative) Urine Glucose (UA) (Negative) Urine Ketones (Negative) Urine Blood (Negative) Urine Nitrite (Negative) Urine Bilirubin (Negative) Urine Urobilinogen (Negative) Ur Leukocyte Esterase (Negative) Urine WBC (Auto) (0-5) /hpf Urine RBC (Auto) (0-4) /hpf U Hyaline Cast (Auto) (0-5) /lpf U Epithel Cells (Auto) (0-5) /lpf Urine Bacteria (Auto) (Negative) SARS-CoV-2, RNA, NAAT (NEGATIVE) 11/26/21 11/26/21 11/26/21 Range/Units 09:50 09:50 09:55 WBC (4.8-10.8) K/ul RBC (4.63-6.08) M/uL Hgb (14.0-18.0) g/dl Hct (40.1-51.0) % MCV (80.0-100.0) fL MCH (25.0-34.0) pg MCHC (32.0-36.0) g/dL RDW Std Deviation (36.4-46.3) fL RDW Coeff of Miguel (11.5-14.5) % Plt Count (130-400) K/uL MPV (9.4-12.4) fL Immature Gran % (Auto) % Neut % (Auto) % Lymph % (Auto) % Door % (Auto) % Eos % (Auto) % Baso % (Auto) % Neut # (Auto) (1.4-6.5) K/uL Lymph # (Auto) (1.2-3.4) K/uL Door # (Auto) (0.24-0.82) K/uL Eos # (Auto) (0-0.50) K/uL Baso # (Auto) (0-0.2) K/uL Immature Gran # (Auto) (0.00-0.02) K/uL PT (9.0-12.0) Seconds INR (0.9-1.1) APTT (21.0-31.0) Seconds PTT Ratio VBG pH (7.36-7.41) VBG pCO2 (38-50) mmHg VBG pO2 mmHg VBG HCO3 mmol/L VBG O2 Saturation % VBG Base Excess mEq/L Sodium (136-145) mmol/L Potassium (3.5-5.1) mmol/L Chloride (98-107) mmol/L Carbon Dioxide (21-32) mmol/L Anion Gap (3-11) BUN (6-23) mg/dl Creatinine (0.6-1.4) mg/dl Est Cr Clr Drug Dosing Est GFR ( Amer) ml/min Est GFR (Non-Af Amer) ml/min BUN/Creatinine Ratio (10-20) Glucose (70-99(Fasting)) mg/dl Lactate 1.7 (0.4-2.0) mmol/L Calcium (8.5-10.1) mg/dl Magnesium (1.7-2.4) mg/dl Total Bilirubin (0.2-1.0) mg/dl Direct Bilirubin (0-0.2) mg/dl AST (13-39) U/L ALT (7-52) U/L Alkaline Phosphatase (34-104) U/L Ammonia (18-72) umol/L Troponin I High Sens (0-20) pg/ml Total Protein (6.0-8.3) gm/dl Albumin (3.4-5.0) gm/dl Procalcitonin < 0.05 (0-0.5) ng/ml Urine Color Urine Appearance (Clear) Urine pH (4.5-7.5) Ur Specific [place] (1.000-1.030) Urine Protein (Negative) Urine Glucose (UA) (Negative) Urine Ketones (Negative) Urine Blood (Negative) Urine Nitrite (Negative) Urine Bilirubin (Negative) Urine Urobilinogen (Negative) Ur Leukocyte Esterase (Negative) Urine WBC (Auto) (0-5) /hpf Urine RBC (Auto) (0-4) /hpf U Hyaline Cast (Auto) (0-5) /lpf U Epithel Cells (Auto) (0-5) /lpf Urine Bacteria (Auto) (Negative) SARS-CoV-2, RNA, NAAT NEGATIVE (NEGATIVE) 11/26/21 11/26/21 11/26/21 Range/Units 10:08 10:11 10:40 WBC (4.8-10.8) K/ul RBC (4.63-6.08) M/uL Hgb (14.0-18.0) g/dl Hct (40.1-51.0) % MCV (80.0-100.0) fL MCH (25.0-34.0) pg MCHC (32.0-36.0) g/dL RDW Std Deviation (36.4-46.3) fL RDW Coeff of Miguel (11.5-14.5) % Plt Count (130-400) K/uL MPV (9.4-12.4) fL Immature Gran % (Auto) % Neut % (Auto) % Lymph % (Auto) % Door % (Auto) % Eos % (Auto) % Baso % (Auto) % Neut # (Auto) (1.4-6.5) K/uL Lymph # (Auto) (1.2-3.4) K/uL Door # (Auto) (0.24-0.82) K/uL Eos # (Auto) (0-0.50) K/uL Baso # (Auto) (0-0.2) K/uL Immature Gran # (Auto) (0.00-0.02) K/uL PT (9.0-12.0) Seconds INR (0.9-1.1) APTT (21.0-31.0) Seconds PTT Ratio VBG pH 7.37 (7.36-7.41) VBG pCO2 39 (38-50) mmHg VBG pO2 28 mmHg VBG HCO3 23 mmol/L VBG O2 Saturation < 60.0 % VBG Base Excess -2.5 mEq/L Sodium (136-145) mmol/L Potassium (3.5-5.1) mmol/L Chloride (98-107) mmol/L Carbon Dioxide (21-32) mmol/L Anion Gap (3-11) BUN (6-23) mg/dl Creatinine (0.6-1.4) mg/dl Est Cr Clr Drug Dosing Est GFR ( Amer) ml/min Est GFR (Non-Af Amer) ml/min BUN/Creatinine Ratio (10-20) Glucose (70-99(Fasting)) mg/dl Lactate (0.4-2.0) mmol/L Calcium (8.5-10.1) mg/dl Magnesium (1.7-2.4) mg/dl Total Bilirubin (0.2-1.0) mg/dl Direct Bilirubin (0-0.2) mg/dl AST (13-39) U/L ALT (7-52) U/L Alkaline Phosphatase (34-104) U/L Ammonia 86.0 H (18-72) umol/L Troponin I High Sens (0-20) pg/ml Total Protein (6.0-8.3) gm/dl Albumin (3.4-5.0) gm/dl Procalcitonin (0-0.5) ng/ml Urine Color Dark Yellow Urine Appearance Cloudy A (Clear) Urine pH 6.5 (4.5-7.5) Ur Specific [place] 1.019 (1.000-1.030) Urine Protein Trace H (Negative) Urine Glucose (UA) Negative (Negative) Urine Ketones Negative (Negative) Urine Blood 3+ H (Negative) Urine Nitrite Negative (Negative) Urine Bilirubin Negative (Negative) Urine Urobilinogen Negative (Negative) Ur Leukocyte Esterase 2+ H (Negative) Urine WBC (Auto) >30 H (0-5) /hpf Urine RBC (Auto) >30 H (0-4) /hpf U Hyaline Cast (Auto) 0 (0-5) /lpf U Epithel Cells (Auto) 20-30 H (0-5) /lpf Urine Bacteria (Auto) 4+ H (Negative) SARS-CoV-2, RNA, NAAT (NEGATIVE) Administered Medications Ceftriaxone Sodium (Rocephin) 2,000 mg in 70 mls @ 140 mls/hr IV NOW STA Stop: 11/26/21 11:52 Last Admin: 11/26/21 11:36 Dose: 140 mls/hr Documented By: EVERT Imaging Data Radiologist's Impression: Chest X-Ray 11/26/21 09:40 XR chest 1V portable HISTORY: 66 years-old Male Sepsis acute sepsis COMPARISON: Chest radiograph 08/15/2021 TECHNIQUE: Portable AP view of the chest FINDINGS: Cardiac silhouette is enlarged. No pneumothorax, pleural effusion, airspace consolidation or overt pulmonary edema. Degenerative changes of the shoulders and spine. Cholecystectomy. IMPRESSION: No acute process. ACT 112: Negative or not required by law. The above report was generated using voice recognition software. It may contain grammatical, syntax or spelling errors. Electronically signed by: Alan Espino M.D. 11/26/2021 10:[address] 11/26/21 09:40 CT head/brain wo con CLINICAL HISTORY: 66 years-old Male with AMS. Acutely altered mental status TECHNIQUE: Multiple axial CT images of the head were obtained without contrast. A dose lowering technique was utilized adhering to the principles of ALARA. COMPARISON: Head CT 06/01/2021 FINDINGS: No acute intracranial hemorrhage, midline shift, intracranial mass, hydrocephalus, territorial ischemia or abnormal extra-axial collection. Mildly motion degraded exam. White matter hypodensities suggest probable chronic hypervascular ischemic disease. The calvarium is intact. Prior bilateral lens repair. The paranasal sinuses, mastoid air cells, and middle ear cavities are clear. IMPRESSION: No acute intracranial abnormality. ACT 112: Negative or not required by law. The above report was generated using voice recognition software. It may contain grammatical, syntax or spelling errors. Electronically signed by: Alan Espino M.D. 11/26/2021 11:20 AM Abdomen/Pelvis CT 11/26/21 10:[address] WITHOUT CONTRAST CT DOSE: 2455.32 mGy.cm HISTORY: Acute lower abdominal pain loer pain TECHNIQUE: Multiaxial CT images of the abdomen and pelvis were performed without contrast. A dose lowering technique was utilized adhering to the principles of ALARA. COMPARISON STUDY: CT abdomen and pelvis 07/07/2021 FINDINGS: Cardiomegaly with coronary artery calcifications. Decreased attenuation of the cardiac blood pool suggests anemia. The lung bases are generally clear. No pneumatosis or pneumoperitoneum. The unenhanced spleen is mildly enlarged, 14 cm. Unremarkable pancreas and adrenal glands. Cholecystec tangela. Cirrhotic atrophic liver. No hepatic mass identified. Trace ascites. Upper to mid abdominal varicosities. Cortical thinning of the kidneys. There are two nonobstructing calculi of the superior pole right kidney measuring up to 4 mm. There are a few punctate calcified left kidney with a 4 mm nonobstructing calculus inferior pole. No ureteral calculi or hydronephrosis. Mild nonspecific urinary bladder wall thickening. Atherosclerosis of the aorta without aneurysm. No lymphadenopathy. Wall thickening of the stomach with partial distention. No bowel obstruction. Mild wall thickening of the cecum and ascending colon has improved from the p rior study. Appendectomy. Unremarkable soft tissues with gynecomastia. Degenerative changes of the spine, pelvis and hips. IMPRESSION: 1. Cirrhosis with stigmata of portal venous hypertension including splenomegaly with abdominal varicosities and trace ascites. 2. Mild wall thickening of the cecum and ascending colon suggestive of portal colopathy. A mild nonspecific colitis considered less likely. 3. No bowel obstruction or pneumoperitoneum. 4. Nonobstructing bilateral nephrolithiasis. 5. Additional findings as above. ACT 112: Negative or not required by law. The above report was generated using voice recognition software. It may contain grammatical, syntax or spelling errors. Electronically signed by: Alan Espino M.D. 11/26/2021 11:39 AM Discharge Plan Visit Data Chief Complaint: Illness Stated Complaint: AMS ED Provider: Dc Foley Discharge Problem: Acute hepatic encephalopathy, Urinary tract infection, Acute alteration in mental status, Thrombocytopenia Patient Disposition: Being Evaluated by Hospitalist Forms Stand Alone Forms: My [facility] Prescriptions Prescriptions: No Action cholecalciferol (vitamin D3) 50 mcg (2,000 unit) capsule 50 mcg PO QAM Qty: 90 3RF pantoprazole 40 mg tablet,delayed release (DR/EC) 40 mg PO BID Qty: 60 5RF Xifaxan 550 mg tablet 550 mg PO BID Qty: 60 5RF Humira(CF) Pen 40 mg/0.4 mL pen injector kit 40 mg subcut Q14D Qty: 2 5RF Rx Instructions: DUE ON 07/11/21 lactulose 10 gram/15 mL solution 20 g PO BID Qty: 946 3RF Aranesp (in polysorbate) 60 mcg/0.3 mL syringe 60 mcg subcut .COMPLEX Qty: 2 3RF Rx Instructions: Q weekly until Hgb >9. Then resume, Q other week. Hold for Hgb >10. potassium chloride 20 mEq tablet extended release 20 meq PO DAILY Qty: 90 3RF carvedilol 6.25 mg tablet 6.25 mg PO BID Qty: 180 5RF furosemide 20 mg tablet 40 mg PO BID Qty: 360 2RF spironolactone 100 mg tablet 100 mg PO QAM Qty: 90 2RF sertraline 25 mg tablet 25 mg PO DAILY Qty: 30 2RF vitamin B complex Tablet 1 tab PO DAILY betamethasone dipropionate 0.05 % ointment 1 applic topical DIRECTED PRN (Reason: Skin Irritation) Rx Instructions: Apply to areas of the trunk and extremities twice daily x 2 weeks as directed. Referrals Referrals: Fiorella Castellano DO [Primary Care Provider] -
[2021-11-26 09:59] LABS: Basophils # (auto) 0.05 K/uL (0-0.2); Basophils % (auto) 0.9 %; Eosinophils # (auto) 0.23 K/uL (0-0.50); Eosinophils % (auto) 4.3 %; Hematocrit (blood only) 31.7 % (40.1-51.0); Hemoglobin 10.6 g/dl (14.0-18.0); Immature Granulocytes # (auto) 0.01 K/uL (0.00-0.02); Immature Granulocytes % (auto) 0.2 %; Lymphocytes # (auto) 0.81 K/uL (1.2-3.4); Lymphocytes % (auto) 15.3 %; Mean Corpuscular Hemoglobin 34.8 pg (25.0-34.0); Mean Corpuscular Hgb Conc 33.4 g/dL (32.0-36.0); Mean Corpuscular Volume 103.9 fL (80.0-100.0); Mean Platelet Volume 9.7 fL (9.4-12.4); Monocytes # (auto) 0.67 K/uL (0.24-0.82); Monocytes % (auto) 12.6 %; Neutrophils # (auto) 3.53 K/uL (1.4-6.5); Neutrophils % (auto) 66.7 %; Platelet Count 98 K/uL (130-400); RDW Coefficient of Variation 17.7 % (11.5-14.5); RDW Standard Deviation 68.8 fL (36.4-46.3); Red Blood Count 3.05 M/uL (4.63-6.08)
--- NOTE | 2021-11-26 10:11 | XRay Report ---
XR chest 1V portable HISTORY: 66 years-old Male Sepsis acute sepsis COMPARISON: Chest radiograph 08/15/2021 TECHNIQUE: Portable AP view of the chest FINDINGS: Cardiac silhouette is enlarged. No pneumothorax, pleural effusion, airspace consolidation or overt pu lmonary edema. Degenerative changes of the shoulders and spine. Cholecystectomy. IMPRESSION: No acute process. ACT 112: Negative or not required by law. The above report was generated using voice recognition software. It may contain grammatical, syntax o r spelling errors. Electronically signed by: Alan Espino M.D. 11/26/2021 10:08 AM
[2021-11-26 10:17] LABS: INR 1.2 (0.9-1.1); Partial Thromboplastin Time 27.6 Seconds (21.0-31.0); Prothrombin Time 12.6 Seconds (9.0-12.0)
[2021-11-26 10:19] LABS: Alanine Aminotransferase 22 U/L (7-52); Albumin Level 2.8 gm/dl (3.4-5.0); Alkaline Phosphatase 106 U/L (34-104); Anion Gap 6 (3-11); Aspartate Aminotransferase 42 U/L (13-39); BUN Creatinine Ratio 14.3 (10-20); Bilirubin Direct 0.6 mg/dl (0-0.2); Bilirubin,Total 2.7 mg/dl (0.2-1.0); Blood Urea Nitrogen 25 mg/dl (6-23); Calcium 9.9 mg/dl (8.5-10.1); Carbon Dioxide 22 mmol/L (21-32); Chloride 110 mmol/L (98-107); Est GFR (African American) 45.7 ml/min; Est GFR (Non-African American) 39.4 ml/min; Glucose 134 mg/dl (70-99(Fasting)); Magnesium 1.8 mg/dl (1.7-2.4); Sodium 138 mmol/L (136-145)
[2021-11-26 10:22] LABS: Base Excess VBG -2.5 mEq/L; HCO3 VBG 23 mmol/L; Oxygen Saturation VBG < 60.0 %; PCO2 VBG 39 mmHg (38-50); PO2 VBG 28 mmHg; pH VBG 7.37 (7.36-7.41)
[2021-11-26 11:09] LABS: Appearance Urine Cloudy (Clear); Bacteria Urine Automated 4+ (Negative); Bilirubin Urine Negative (Negative); Blood Urine 3+ (Negative); Cast Urine Automated 0 /lpf (0-5); Color Urine Dark Yellow; Epithelial Cell Urine Auto 20-30 /lpf (0-5); Glucose Urine UA Negative (Negative); Ketones Urine Negative (Negative); Leukocyte Esterase Urine 2+ (Negative); Nitrite Urine Negative (Negative); Protein Urine Trace (Negative); RBC Urine Automated >30 /hpf (0-4); Specific Gravity Urine 1.019 (1.000-1.030); Urobilinogen Urine Negative (Negative); WBC Urine Automated >30 /hpf (0-5); pH Urine 6.5 (4.5-7.5)
[2021-11-26] MEDS ORDERED: cefTRIAXone SODIUM 2,000 MG/70 ML BAG IV STA (11:23)
--- NOTE | 2021-11-26 11:23 | CT Scan Report ---
CT head/brain wo con CLINICAL HISTORY: 66 years-old Male with AMS. Acutely altered mental status TECHNIQUE: Multiple axial CT images of the head were obtained without contrast. A dose lowering tech nique was utilized adhering to the principles of ALARA. COMPARISON: Head CT 06/01/2021 FINDINGS: No acute intracranial hemorrhage, midline shift, intracranial mass, hydrocephalus, territorial ischem ia or abnormal extra-axial collection. Mildly motion degraded exam. White matter hypodensities sugges t probable chronic hypervascular ischemic disease. The calvarium is intact. Prior bilateral lens repair. The paranasal sinuses, mastoid air cells, and m iddle ear cavities are clear. IMPRESSION: No acute intracranial abnormality. ACT 112: Negative or not required by law. The above report was generated using voice recognition software. It may contain grammatical, syntax o r spelling errors. Electronically signed by: Alan Espino M.D. 11/26/2021 11:20 AM
--- NOTE | 2021-11-26 11:41 | CT Scan Report ---
ABDOMEN AND PELVIS CT WITHOUT CONTRAST CT DOSE: 2455.32 mGy.cm HISTORY: Acute lower abdominal pain loer pain TECHNIQUE: Multiaxial CT images of the abdomen and pelvis were performed without contrast. A dose lo wering technique was utilized adhering to the principles of ALARA. COMPARISON STUDY: CT abdomen and pelvis 07/07/2021 FINDINGS: Cardiomegaly with coronary artery calcifications. Decreased attenuation of the cardiac bloo d pool suggests anemia. The lung bases are generally clear. No pneumatosis or pneumoperitoneum. The u nenhanced spleen is mildly enlarged, 14 cm. Unremarkable pancreas and adrenal glands. Cholecystectomy . Cirrhotic atrophic liver. No hepatic mass identified. Trace ascites. Upper to mid abdominal varicos ities. Cortical thinning of the kidneys. There are two nonobstructing calculi of the superior pole right kid tere measuring up to 4 mm. There are a few punctate calcified left kidney with a 4 mm nonobstructing c alculus inferior pole. No ureteral calculi or hydronephrosis. Mild nonspecific urinary bladder wall t hickening. Atherosclerosis of the aorta without aneurysm. No lymphadenopathy. Wall thickening of the stomach with partial distention. No bowel obstruction. Mild wall thickening of the cecum and ascending colon has improved from the prior study. Appendectomy. Unremarkable soft tis sues with gynecomastia. Degenerative changes of the spine, pelvis and hips. IMPRESSION: 1. Cirrhosis with stigmata of portal venous hypertension including splenomegaly with abdominal varico sities and trace ascites. 2. Mild wall thickening of the cecum and ascending colon suggestive of portal colopathy. A mild nonsp ecific colitis considered less likely. 3. No bowel obstruction or pneumoperitoneum. 4. Nonobstructing bilateral nephrolithiasis. 5. Additional findings as above. ACT 112: Negative or not required by law. The above report was generated using voice recognition software. It may contain grammatical, syntax o r spelling errors. Electronically signed by: Alan Espino M.D. 11/26/2021 11:39 AM
[2021-11-26] MEDS ORDERED: LACTULOSE SYRUP 30 GM/45 ML UDP PO STA (11:51)
[2021-11-26] MEDS ORDERED: LACTULOSE SYRUP 20 GM/30 ML UDC ONE (12:10)
--- NOTE | 2021-11-26 12:40 | Electrocardiogram Report ---
Test Reason : Blood Pressure : / mmHG Vent. Rate : 093 BPM Atrial Rate : 093 BPM P-R Int : 172 ms QRS Dur : 084 ms QT Int : 386 ms P-R-T Axes : 052 -25 022 degrees QTc Int : 479 ms Poor data quality, interpretation may be adversely affected Sinus rhythm Low voltage QRS Borderline ECG Confirmed by Franklyn Hartman ([id number]) on 11/26/2021 12:40:41 PM Referred By: REFERRED SELF Confirmed By:Juan Hartman
--- NOTE | 2021-11-26 12:56 | History & Physical Report ---
Date of Service November 26, 2021 Assessment & Plan (1) Urinary tract infection: Plan: Sebastian Quiñonez is a 66-year-old male with a past medical history of psoriasis, fatty liver disease, squamous cell carcinoma of the skin, hypertension, hypothyroidism, GERD, CKD, liver cirrhosis 2/2 HEATON with severe portal hypertensive gastropathy and recurrent GI bleeding, and PSVT who presents to the emergency department with altered mental status by EMS. Last known normal was day before admission. Altered mental status, suspect metabolic encephalopathy 2/2 UTI +/- multifactorial with elevated ammonia Patient endorses dysuria day of and day prior to presentation. UA contami nated versus grossly infected appearing on admission. UC pending. BC pending. No fever, chills, sweats. No signs of Vinny/hydro on imaging Troponin is normal CThead without acute findings Pro-Nahum negative Patient with pneumonia fluctuating historical values from approximately 40 up to 120. 86 on arrival. Has been taking rifaximin and lactulose and having 4 bowel movements per patient although potassium is high-normal for pt ? Reliability. Rocephin daily for UTI, narrow based on culture as above. No signs of SBP, blood is on Hemoccult in ER so this will cover for prophylaxis as well Patient is with history of SVT and wide-complex tachycardia. We will follow on telemetry for 24 hours given acute presentation/AMS, and downgrade if stable and doing well VBG 7.3 / Sodium, potassium normal. Creatinine at/slightly below normal baseline on admission. Admitting creatinine 1.75. Glucose 134 Chronically elevated mild transaminitis and alk phos in setting of history of cholecystectomy and cirrhosis/HETAON as noted Heaton Continue rifaximin twice daily Continue lactulose, titrate to 34 bowel movements daily Continue carvedilol No acute decompensation at this time Continue PPI Continue Spiriva/Lasix Hemoglobin actually best it has been in some time, 10.6 on admission Occult positive stool in ER, no melena/bright red blood per rectum Last GI 09/13/2021. Colonoscopy 09/07/2021 which showed 2 polyps in the ascending colon, normal rectum/anal Sam. Every 3 year surveillance. Pancytopenia with splenic sequestration, HEATON, anemia of chronic disease As noted w/ Heaton. Follows with hematology oncology as outpatient. No indication for acute management at this time, continue IV iron as outpatient, Procrit as indicated as outpatient, and every 4 month follow-up as outpatient Hypertension Continue carvedilol, Lasix, Spyro CKD Baseline creatinine 1.61.97 Creatinine 1.75 on admission Renally dose medications, avoid nephrotoxins DVT prophylaxis: SCDs, heparin deferred with Hemoccult positive BM and gastropathy CODE STATUS: DNR/DNI Disposition: Medical telemetry, follow for 24 hours for arrhythmia Diet: Heart healthy (2) Acute alteration in mental status: (3) Thrombocytopenia: (4) PSVT (paroxysmal supraventricular tachycardia): (5) GI bleed: (6) Wide-complex tachycardia: (7) History of SCC (squamous cell carcinoma) of skin: (8) GERD (gastroesophageal reflux disease): (9) CKD (chronic kidney disease), stage III: (10) 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: History of Present Illness Primary Care Provider: DO Rhett Schneiderxiomara Quiñonez is a 66-year-old male with a past medical history of psoriasis, fatty liver disease, squamous cell carcinoma of the skin, hypertension, hypothyroidism, GERD, CKD, liver cirrhosis 2/2 HEATON with severe portal hypertensive gastropathy and recurrent GI bleeding, and PSVT who presents to the emergency department with altered mental status by EMS. Last known normal was day before admission. Per report no black or bloody bowel movements, no fever, no trauma. Incontinent of stool/urine. ER metabolic assessment: No leukocytosis, hemoglobin 10.6 from last 9.5, MCV 103.9. VBG normal (7.3 7/39//), sodium normal, potassium 5.0, creatinine baseline 1.82.3, 1.7 on admission. T bili intermittently elevated to baseline, 2.7 on admission. Direct bili 0.6, AST 42, ALT normal, alk phos 106 last 162. per son improving, but still off. Ammonia is acutely elevated to 86. Albumin low at 2.8. Procalcitonin is negative. UA is contaminated appearing with epithelial cells, but 4+ bacteria and leukocyte esterase and blood. COVID-negative. CTA/P: Cirrhosis with stigmata of portal venous hypertension, splenomegaly/abdominal varicosities/trace ascites. Mild wall thickening of the cecum and ascending colon suggestive of portal colopathy. Mild nonspecific colitis cannot be ruled out but considered less likely. No evidence of bowel obstruction or free air. Nonobstructing bilateral nephrolithiasis. CThead: No acute findings Given rocephin for UTI, covers for SBP No fever. Per EMS slightly hypotension. Per patient: +dysuria. Poor memory. Seen with son at bedside. Per son working with PT and had trouble with balance. No fevers, chills, night sweats. No BRBPR, No melena. Has chronically positive Hemoccult positive stools with portal gastropathy, but is actually doing well and had a his outpatient dose of EPO held as his blood levels were greater than 10. Took no medicines today. Prior to today has been taking all medications as directed Patient is a somewhat poor historian but endorses burning with urination today, and thinks in the last day or so. Otherwise 10 point review of systems negative. No fluid retention, feels his legs are actually doing well and better than normal baseline. No chest pain, chest pressure, lightheaded, dizziness, presyncope, syncope Medical History: Reviewed Medications: Reviewed Surgical History: Reviewed Allergies: Reviewed Social History: Reviewed, no recent tobacco/alcohol use Code Status: Renny Quiñonez (son) [phone] surrogate DM. DNR/DNI. Allergies Allergy/AdvReac Type Severity Reaction Status Date / Time tamsulosin Allergy Intermediate HIVES Verified 10/25/21 13:14 etanercept [From Enbrel] AdvReac Unknown Increased Verified 10/25/21 13:14 infections Home Medications Medication Instructions Recorded Confirmed Type furosemide 20 mg tablet 40 mg PO BID #360 tabs 06/23/20 10/27/21 Rx betamethasone dipropionate 0.05 % 1 applic topical DIRECTED PRN 05/10/21 10/27/21 History topical ointment Skin Irritation cholecalciferol (vitamin D3) 50 50 mcg PO QAM #90 caps 05/15/21 10/27/21 Rx mcg (2,000 unit) capsule pantoprazole 40 mg tablet,delayed 40 mg PO BID #60 tabs 06/28/21 10/27/21 Rx release rifaximin 550 mg tablet (Xifaxan) 550 mg PO BID #60 tabs 06/28/21 10/27/21 Rx spironolactone 100 mg tablet 100 mg PO QAM #90 tabs 06/28/21 10/27/21 Rx adalimumab 40 mg/0.4 mL 40 mg (0.4 mL) subcut Q14D #2 ea 06/29/21 10/27/21 Rx subcutaneous pen kit (Humira(CF) Pen) sertraline 25 mg tablet 25 mg PO DAILY #30 tabs 08/23/21 10/27/21 Rx lactulose 10 gram/15 mL oral 20 g (30 mL) PO BID #946 mL 09/19/21 10/27/21 Rx solution darbepoetin coretta in polysorbat 60 60 mcg (0.3 mL) subcut .COMPLEX #2 09/27/21 10/27/21 Rx mcg/0.3 mL in polysorbate SYRINGES injection syringe (Aranesp) vitamin B complex 1 tab PO DAILY 10/23/21 10/27/21 History carvedilol 6.25 mg tablet 6.25 mg PO BID #180 tabs 10/25/21 10/27/21 Rx potassium chloride 20 mEq 20 meq PO DAILY #90 tabs 10/25/21 10/27/21 Rx tablet,extended release Past Med/Surg History Medical History Anemia 3 BLOOD TRANSFUSIONS SINCE APRIL- UNSURE WHERE BLOOD LOSS IS COMING FROM Ascites Cervical disc disease CKD (chronic kidney disease), stage III Depression GAVE (gastric antral vascular ectasia) Per records GERD (gastroesophageal reflux disease) History of herniated intervertebral disc lumbar area History of SCC (squamous cell carcinoma) of skin S/p removal- follows with derm Hx of blood clots 06/2021 @ [facility]- pt reports blood clot in left arm around IV site after being discharged from hospital- no meds due to current blood loss issue- warm compresses to site per pt- 2 ultrasounds done - no current issues Hypertension Hypothyroidism 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 Lumbar disc disease Oral mucositis On mouthwash daily- no recent issues Portal hypertensive gastropathy Psoriasis Psoriatic arthritis PVT (portal vein thrombosis) denies Spinal stenosis EPIDURAL INJECTIONS IN PAST FOR PAIN RELIEF TMJ arthralgia Urinary retention Wide-complex tachycardia ON CARDVEDILOL-F/U DR VANESSA LAST VISIT<1 YR AGO Surgical History H/O foot surgery excision of neuroma b/l feet History of appendectomy History of arthroscopy RT KNEE History of cataract surgery RT/LEFT History of cholecystectomy History of esophagogastroduodenoscopy (EGD) History of herniorrhaphy right inguinal History of lithotripsy History of liver biopsy History of repair of rotator cuff RT/LEFT History of tooth extraction History of urologic surgery Urethral reconstruction [address] [facility] Nausea and vomiting after administration of anesthetic agent S/P colonoscopy S/P epidural steroid injection S/P orchiectomy Right age 9 for UDT S/P urological surgery (2018) BMG urethroplasty-[facility] Suprapubic catheter AND REMOVAL Family History Grandmother (Maternal) Diabetes Father Renal cancer Mother Aortic aneurysm Denies family history of Ovarian cancer Prostate cancer Myocardial infarction Breast cancer Colorectal cancer Social History Smoking Status: Never smoker Second Hand Exposure: No; Hx Alcohol Use: No Hx Substance Use: No Preferred Language: Hong Konger Communication Ability: Effective Visual Impairment: No Limitations Hearing Ability: Hard of Hearing Doors Prefitter Required: No Beliefs That Will Affect Care: None marital status: / Current Living Situation: Spouse Current Living Situation Comment: SON LIVING WITH PT CURRENTLY current occupational status: retired How many Children do You have: 1 Feels Safe at Home: Yes Diet Comment: regular caffeine: Yes during the past year weight has: decreased > 10 lbs Dental Care, Regularly: No Physical Activity Frequency: Other Physical Activity Frequency Comment: does all housework/outside work and cuts wood Seatbelt Use: never Sunscreen Use: No Assistive Devices: Glasses and Other Review of Systems Review of Systems: Unobtainable due to cognitive status (limited by AMS) Physical Exam Physical Exam: General: Oriented to name and building. Not oriented to city or year. Pleasant, cooperative, answers questions mostly appropriately although with poor memory and follows 1 and two-step commands HEENT: Atraumatic, normocephalic. Pupils equal and reactive to light. Skin: No jaundice or scleral icterus. Scattered telangiectasias of the upper chest. No erythema/warmth Pulm: CTAB A&P. -wheezes, -rales, -rhonchi. Symmetrical chest rise. No increase in work of breathing. No respiratory distress. Cardiac: RRR, -mrg. Radial pulses intact and symmetrical. Abdominal: Mildly tender in the infraumbilical region, no focal tenderness or rebound. Abdomen is soft, without rigidity/guarding Extremities: Warm, dry. Moving upper extremities equally with full derrick helper strength/elbow flexion/extension which are symmetrical. Somewhat weak in lower extremities but is able to lift hips off the bed against resistance bilaterally. Pitting edema in the lower extremities bilaterally, better than the normal baseline per patient. Results & Data Results & Data ([facility]) Vital Signs (Past 12 Hours) Vital Signs Temp Pulse Resp BP Pulse Ox O2 Del Method 11/26/21 11:30 72 16 99 Room Air 11/26/21 11:30 123/64 11/26/21 10:45 80 19 99 Room Air 11/26/21 10:30 110 H 17 99 Room Air 11/26/21 10:30 131/76 11/26/21 10:15 107 H 15 99 Room Air 11/26/21 10:01 129/77 11/26/21 10:01 103 H 17 100 Room Air 11/26/21 10:00 80 19 99 Room Air 11/26/21 09:53 Room Air 11/26/21 09:53 36.7 C 68 16 144/80 H 100 Room Air PG Care Time/CCT Total # of Minutes Spent Total Time Spent with Patient: Total time spent is greater than 50% in coordination of care (as documented) at patient's floor/unit and/or counseling patient: Coding Level of Care Code 60070 Initial Inpt Care Lvl 2 Diagnoses Urinary tract infection N39.0; R31.9 Hematuria presence: with hematuria Urinary tract infection type: site unspecified Acute alteration in mental status R41.82 Thrombocytopenia D69.6 PSVT (paroxysmal supraventricular tachycardia) I47.1 GI bleed K92.2 GI bleed type/associated pathology: unspecified gastrointestinal hemorrhage type Wide-complex tachycardia I47.2 History of SCC (squamous cell carcinoma) of skin Z85.828 GERD (gastroesophageal reflux disease) K21.9 CKD (chronic kidney disease), stage III N18.3 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 K75.81; K74.60 (1) Urinary tract infection Hematuria presence: with hematuria Urinary tract infection type: site unspecified Qualified Code(s): N39.0 - Urinary tract infection, site not specified; R31.9 - Hematuria, unspecified (2) GI bleed GI bleed type/associated pathology: unspecified gastrointestinal hemorrhage type Qualified Code(s): K92.2 - Gastrointestinal hemorrhage, unspecified
[2021-11-26] MEDS ORDERED: ACETAMINOPHEN 325 MG TAB PO PRN (17:04)
[2021-11-26] MEDS ORDERED: SODIUM CHLORIDE 0.9% 1000ML 500 ML IV ONE (17:46)
[2021-11-26] MEDS: rifAXIMin 550 MG TABLET PO SCH (20:58)
[2021-11-26] MEDS: LACTULOSE SYRUP 30 GM/45 ML UDP PO SCH ×2 (20:58→22:37)
[2021-11-26] MEDS: PANTOprazole 40 MG TAB PO SCH (20:59)
[2021-11-26] MEDS: carvediloL 6.25 MG TAB PO SCH (20:59)
[2021-11-26] MEDS: FUROSEMIDE 40 MG TAB PO SCH (20:59)
[2021-11-27 08:17] LABS: Anion Gap 6 (3-11); BUN Creatinine Ratio 16.4 (10-20); Blood Urea Nitrogen 28 mg/dl (6-23); Calcium 9.4 mg/dl (8.5-10.1); Carbon Dioxide 21 mmol/L (21-32); Chloride 109 mmol/L (98-107); Creatinine Clr Calc Pharmacy 54.5 ml/min; Est GFR (Non-African American) 40.5 ml/min; Glucose 131 mg/dl (70-99(Fasting)); Magnesium 1.6 mg/dl (1.7-2.4); Sodium 136 mmol/L (136-145)
[2021-11-27] MEDS: PANTOprazole 40 MG TAB PO SCH ×2 (08:56→19:43)
[2021-11-27] MEDS: CHOLECALCIFEROL 1,000 UNITS 25 MCG TAB PO SCH (08:57)
[2021-11-27] MEDS: rifAXIMin 550 MG TABLET PO SCH ×2 (08:57→19:43)
[2021-11-27] MEDS: carvediloL 6.25 MG TAB PO SCH ×2 (08:57→19:43)
[2021-11-27] MEDS: SPIRONOLACTONE 100 MG TAB PO SCH (08:58)
[2021-11-27] MEDS: SERTRALINE HCL 50 MG TABLET PO SCH (08:58)
[2021-11-27] MEDS: LACTULOSE SYRUP 30 GM/45 ML UDP PO SCH ×3 (08:59→19:43)
[2021-11-27 09:03] LABS: Basophils # (auto) 0.06 K/uL (0-0.2); Basophils % (auto) 1.2 %; Eosinophils # (auto) 0.29 K/uL (0-0.50); Eosinophils % (auto) 5.8 %; Hematocrit (blood only) 29.4 % (40.1-51.0); Hemoglobin 9.8 g/dl (14.0-18.0); Immature Granulocytes # (auto) 0.02 K/uL (0.00-0.02); Immature Granulocytes % (auto) 0.4 %; Lymphocytes # (auto) 0.84 K/uL (1.2-3.4); Lymphocytes % (auto) 16.9 %; Mean Platelet Volume 8.3 fL (9.4-12.4); Monocytes # (auto) 0.77 K/uL (0.24-0.82); Monocytes % (auto) 15.5 %; Neutrophils # (auto) 2.99 K/uL (1.4-6.5); Neutrophils % (auto) 60.2 %; Platelet Count 71 K/uL (130-400); White Blood Count 4.97 K/ul (4.8-10.8)
[2021-11-27 09:58] LABS: Mean Corpuscular Hemoglobin 34.9 pg (25.0-34.0); Mean Corpuscular Hgb Conc 33.3 g/dL (32.0-36.0); Mean Corpuscular Volume 104.6 fL (80.0-100.0); Ovalocytes 1+; Polychromasia 1+; RDW Coefficient of Variation 17.5 % (11.5-14.5); RDW Standard Deviation 68.1 fL (36.4-46.3); Red Blood Count 2.81 M/uL (4.63-6.08); Tear Drop Cells 1+
[2021-11-27] MEDS: cefTRIAXone SODIUM 2,000 MG in DEXTROSE 5% 50 ML IV SCH (12:11)
[2021-11-27] MEDS: MAGNESIUM SULFATE / D5W 1 GM/100 ML BAG IV SCH ×2 (18:43→20:52)
--- NOTE | 2021-11-27 20:09 | Hospitalist Progress Note ---
Date of Service November 27, 2021 Assessment & Plan (1) Acute hepatic encephalopathy: Plan: Given rapid resolution in mentation suspect this was responsible mostly for his altered mental state, although his ongoing weakness is more concerning. Continue lactulose and rifaximin - ammonia and cognition improving (2) Urinary tract infection: Plan: Reportedly dysuria presents day prior to presentation - resolved today. Pin point growth on urine culture - follow this up Continue ceftriaxone 1g IV daily PSA, ESR and CRP with am labs to assess for prostatitis (3) Acute alteration in mental status: Plan: Suspect secondary to UTI and hepatic encephalopathy Appears mostly resolved per son and patient however may need rehab on discharge pending PT/OT evals Some generalized abdominal pain on exam but with resolution of symptoms, alternative explanation and only trace ascites on CT A/P suspicion for SBP is low (4) GI bleed: Plan: Continue pantoprazole 40mg PO BID FOB pending Consider GI referral if hemoglobin continues to drop Avoid chemical VTE prophylaxis currently (5) Thrombocytopenia: (6) PSVT (paroxysmal supraventricular tachycardia): (7) Wide-complex tachycardia: (8) History of SCC (squamous cell carcinoma) of skin: (9) GERD (gastroesophageal reflux disease): (10) CKD (chronic kidney disease), stage III: Plan: Baseline creatinine 1.61.97 Creatinine 1.75 on admission Renally dose medications, avoid nephrotoxins (11) 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: Plan: Pancytopenia with splenic sequestration, SERRANO, anemia of chronic disease As noted w/ Serrano. Follows with hematology oncology as outpatient. No indication for acute management at this time, continue IV iron as outpatient, Procrit as indicated as outpatient, and every 4 month follow-up as outpatient Continue rifaximin twice daily Continue lactulose, titrate to 34 bowel movements daily Continue carvedilol No acute decompensation at this time Continue PPI Continue Spiriva/Lasix Hemoglobin actually best it has been in some time, 10.6 on admission Occult positive stool in ER, patient having black stool Last GI 09/13/2021. Colonoscopy 09/07/2021 which showed 2 polyps in the ascending colon, normal rectum/anal Sam. Every 3 year surveillance. (12) Hypertension: Plan: Continue carvedilol, Lasix, spironolactone Plan DVT prophylaxis: SCDs, heparin deferred with Hemoccult positive BM and gastrop athy CODE STATUS: DNR/DNI Disposition: Medical telemetry Diet: Heart healthy, low Na Admission and Anticipated Discharge Date Admission Date: November 26, 2021 Subjective Patient reports cognitively feeling better today but still feeling significantly weak. He denies any specific urinary symptoms. No pain except on palpation but unable to tell me whether this is unusual for his. He reports his leg swelling may be a little worse than normal. Reportedly having black stool throughout today. Discussed with son who was in earlier to see his father an he reports he is much improved but his generalized weakness remains Review of Systems Review of Systems: All systems reviewed & are unremarkable except as noted in Subjective Physical Exam Constitutional: well developed; + not well nourished and no acute distress Eyes: + anicteric sclerae; normal pupil size ENMT: external ear and nose normal, oropharynx normal Neck: trachea midline, no thyromegaly Respiratory: normal respiratory effort, lungs clear to auscultation Cardiovascular: Rate/Rhythm: regular rate and regular rhythm Heart Sounds: no murmur Extremities: normal capillary refill, + calf tenderness (b/l, but also having pain everywhere on palpation) and + pedal edema (2+ pitting edema to mid thighs equal b/l) Gastrointestinal (Abdomen): Inspection/Auscultation: abdomen normal to inspection and normal bowel sounds; abdomen not distended Percussion/Palpation: + abdomen tender (generalized on palpation only) and abdomen soft; no guarding and abdomen not rigid Musculoskeletal: no cyanosis or clubbing, extremities motor strength 5/5 Skin: no rashes, warm and dry Neurologic: moves all extremities and awake; not confused Psychiatric: A+Ox3, euthymic affect Results & Data Results & Data ([facility]) Vital Signs (Past 12 Hours) Vital Signs Temp Pulse Pulse Resp BP Pulse Ox O2 Del Method 11/27/21 19:40 36.4 C L 66 18 110/66 98 Room Air 11/27/21 15:40 36.7 C 84 16 104/66 96 Room Air 11/27/21 14:18 86 11/27/21 12:00 36.6 C 83 20 119/72 98 Room Air PG Care Time/CCT Total # of Minutes Spent Total Time Spent with Patient: Total time spent is greater than 50% in coordination of care (as documented) at patient's floor/unit and/or counseling patient: Coding Level of Care Code 77659 Subseq Hosp Care Lvl 3 Diagnoses Acute hepatic encephalopathy K76.82 Urinary tract infection N39.0; R31.9 Hematuria presence: with hematuria Urinary tract infection type: site unspecified Acute alteration in mental status R41.82 GI bleed K92.2 GI bleed type/associated pathology: unspecified gastrointestinal hemorrhage type Thrombocytopenia D69.6 PSVT (paroxysmal supraventricular tachycardia) I47.1 Wide-complex tachycardia I47.2 History of SCC (squamous cell carcinoma) of skin Z85.828 GERD (gastroesophageal reflux disease) K21.9 CKD (chronic kidney disease), stage III N18.3 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 K75.81; K74.60 Hypertension I10 (1) Urinary tract infection Hematuria presence: with hematuria Urinary tract infection type: site unspecified Qualified Code(s): N39.0 - Urinary tract infection, site not specified; R31.9 - Hematuria, unspecified (2) GI bleed GI bleed type/associated pathology: unspecified gastrointestinal hemorrhage type Qualified Code(s): K92.2 - Gastrointestinal hemorrhage, unspecified
[2021-11-27] MEDS: FUROSEMIDE 40 MG TAB PO SCH (23:19)
[2021-11-28 06:35] LABS: Basophils # (auto) 0.04 K/uL (0-0.2); Eosinophils # (auto) 0.34 K/uL (0-0.50); Eosinophils % (auto) 8.4 %; Hematocrit (blood only) 28.1 % (40.1-51.0); Hemoglobin 9.3 g/dl (14.0-18.0); Immature Granulocytes # (auto) 0.01 K/uL (0.00-0.02); Immature Granulocytes % (auto) 0.2 %; Lymphocytes # (auto) 0.87 K/uL (1.2-3.4); Lymphocytes % (auto) 21.4 %; Mean Platelet Volume 9.4 fL (9.4-12.4); Monocytes # (auto) 0.68 K/uL (0.24-0.82); Monocytes % (auto) 16.7 %; Neutrophils # (auto) 2.13 K/uL (1.4-6.5); Neutrophils % (auto) 52.3 %; Platelet Count 75 K/uL (130-400); White Blood Count 4.07 K/ul (4.8-10.8)
[2021-11-28 06:55] LABS: Albumin Level 2.6 gm/dl (3.4-5.0); BUN Creatinine Ratio 14.9 (10-20); Bilirubin,Total 1.4 mg/dl (0.2-1.0); C Reactive Protein 0.89 mg/dl (0-0.5); Calcium 9.6 mg/dl (8.5-10.1); Creatinine Clr Calc Pharmacy 44.6 ml/min; Est GFR (African American) 38.4 ml/min; Est GFR (Non-African American) 33.1 ml/min; Globulin 2.7 gm/dl (2.5-4.0); Potassium 3.9 mmol/L (3.5-5.1); Total Protein 5.3 gm/dl (6.0-8.3)
[2021-11-28 06:59] LABS: Mean Corpuscular Hemoglobin 34.4 pg (25.0-34.0); Mean Corpuscular Hgb Conc 33.1 g/dL (32.0-36.0); Mean Corpuscular Volume 104.1 fL (80.0-100.0); Polychromasia 1+; RDW Standard Deviation 64.6 fL (36.4-46.3); Tear Drop Cells 1+
[2021-11-28] MEDS: FUROSEMIDE 40 MG TAB PO SCH (08:13)
[2021-11-28] MEDS: LACTULOSE SYRUP 30 GM/45 ML UDP PO SCH ×3 (08:14→21:47)
[2021-11-28] MEDS: PANTOprazole 40 MG TAB PO SCH (08:15)
[2021-11-28] MEDS: SERTRALINE HCL 50 MG TABLET PO SCH (08:15)
[2021-11-28] MEDS: rifAXIMin 550 MG TABLET PO SCH ×2 (08:15→21:48)
[2021-11-28] MEDS: CHOLECALCIFEROL 1,000 UNITS 25 MCG TAB PO SCH (08:16)
[2021-11-28] MEDS: SPIRONOLACTONE 100 MG TAB PO SCH (08:16)
[2021-11-28] MEDS: POTASSIUM CHLORIDE CRTAB 20 MEQ TABCR PO SCH (08:19)
[2021-11-28] MEDS: carvediloL 6.25 MG TAB PO SCH ×2 (08:34→21:46)
[2021-11-28] MEDS ORDERED: SODIUM CHLORIDE 0.9% 1000ML 500 ML IV ONE (08:39)
--- NOTE | 2021-11-28 08:41 | Hospitalist Progress Note ---
Date of Service November 28, 2021 Assessment & Plan (1) Acute hepatic encephalopathy: Plan: Presented with acute altered mental status, and reports that he does not remember being transported by EMS to this location. Ammonia level elevated from baseline on admission, since downtrended. Given rapid resolution in mentation. Continue lactulose and rifaximin - ammonia and cognition back to baseline. (2) Urinary tract infection: Plan: Reportedly dysuria present in the days prior to presentation - resolved today. Pin point growth on urine culture - continue to follow. Continue ceftriaxone 1g IV daily. (3) Acute alteration in mental status: Plan: Suspect secondary to UTI and hepatic encephalopathy. Appears mostly resolved per son and patient. Some generalized abdominal pain on exam but with resolution of symptoms, alternative explanation and only trace ascites on CT A/P, therefore suspicion for SBP is low. PT and OT recommend home health services for patient. (4) GI bleed: Plan: Several days of dark / black stools before admission, with hx GIB. GI consulted and appreciate recommendations: No indication for urgent scope at present. Liquid diet x1 day, and PPI IV BID x2 days. H/H stable, will check in AM as well. (5) Thrombocytopenia: Plan: History of, chronic, secondary to SERRANO cirrhosis. Daily cbc. (6) PSVT (paroxysmal supraventricular tachycardia): Plan: Continue carvedilol; hold if BP soft. (7) GERD (gastroesophageal reflux disease): Plan: Continue PPI. (8) CKD (chronic kidney disease), stage III: Plan: Baseline creatinine 1.61.97. Creatinine 1.75 on admission. Renally dose medications, avoid nephrotoxins. (9) 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: Plan: - Sequelae including pancytopenia with splenic sequestration, SERRANO, anemia of chronic disease. Continue rifaximin twice daily. Continue lactulose, titrate to 34 bowel movements daily. Continue carvedilol. Continue PPI. Continue Lasix as able based on BPs as well as spironolactone. Hemoglobin stable at 10.7. Occult positive stool in ER, patient having black stool a few days ago but has since resolved. Last GI 09/13/2021. Colonoscopy 09/07/2021 which showed 2 polyps in the ascending colon, normal rectum/anal Sam. Every 3 year surveillance. (10) Hypertension: Plan: Continue carvedilol, Lasix, spironolactone. - BP hypotensive this AM with some lightheadedness so did hold Lasix and carvedilol. Plan DVT prophylaxis: SCDs; heparin deferred with Hemoccult positive BM and gastropathy CODE STATUS: DNR/DNI Disposition: Medical telemetry Diet: Heart healthy, low Na liquid diet Admission and Anticipated Discharge Date Admission Date: November 26, 2021 Subjective Overnight patient reports that he had no melanotic stools, and instead his stools were brown. No bright red blood in stools. He does endorse some dizziness this morning when getting up to go to the bathroom. Lasix was held due to soft BPs in the low 100s. His carvedilol was also held due to this. He denies any chest pain, shortness of breath, nausea, vomiting, diarrhea today. Review of Systems Review of Systems: All systems reviewed & are unremarkable except as noted in Subjective Physical Exam Constitutional: WD/WN, vitals as above Neck: trachea midline, no thyromegaly Respiratory: normal respiratory effort, lungs clear to auscultation Cardiovascular: Rate/Rhythm: regular rate and regular rhythm Gastrointestinal (Abdomen): normal bowel sounds, soft, nontender, no hepatosplenomegaly Skin: no rashes, warm and dry Psychiatric: Patient is alert and oriented x3, euthymic affect Results & Data Results & Data ([facility]) Vital Signs (Past 12 Hours) Vital Signs Temp Pulse Pulse Resp BP Pulse Ox O2 Del Method 11/28/21 08:19 60 104/67 11/28/21 06:25 57 L 11/28/21 03:24 36.5 C 61 18 107/65 97 Room Air 11/27/21 23:02 36.8 C 71 20 112/70 97 Room Air 11/27/21 22:18 68 PG Care Time/CCT Total # of Minutes Spent Total Time Spent with Patient: Total time spent is greater than 50% in coordination of care (as documented) at patient's floor/unit and/or counseling patient: Coding Level of Care Code 02958 Subseq Hosp Care Lvl 3 Diagnoses Acute hepatic encephalopathy K76.82 Urinary tract infection N39.0; R31.9 Hematuria presence: with hematuria Urinary tract infection type: site unspecified Acute alteration in mental status R41.82 GI bleed K92.2 GI bleed type/associated pathology: unspecified gastrointestinal hemorrhage type Thrombocytopenia D69.6 PSVT (paroxysmal supraventricular tachycardia) I47.1 GERD (gastroesophageal reflux disease) K21.9 CKD (chronic kidney disease), stage III N18.3 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 K75.81; K74.60 Hypertension I10 (1) Urinary tract infection Hematuria presence: with hematuria Urinary tract infection type: site unspecified Qualified Code(s): N39.0 - Urinary tract infection, site not specified; R31.9 - Hematuria, unspecified (2) GI bleed GI bleed type/associated pathology: unspecified gastrointestinal hemorrhage type Qualified Code(s): K92.2 - Gastrointestinal hemorrhage, unspecified
--- NOTE | 2021-11-28 09:14 | Gastrointestinal Consultation ---
Date of Consultation November 28, 2021 Assessment & Plan (1) Urinary tract infection: 66 year old male w/ SERRANO cirrhosis, with repeated admission for anemia, GIB, severe PHG w/ oozing, PHTN, now admitted w/ UTI, GI asked to evaluate for AMS which has since resolved, and intermittent dark stools which resolved and he notes brown stools this AM - No acute indication for EGD evaluation - Clear liquid diet x 1 day - Would recommend IV PPI BID x 48 hours - Trend HGB, transfuse PRN - Continue carvedilol and PPI for h/o UGIB, severe PHG w/ oozing - Monitor and document GI output - Would continue Lactulose as ordered - Would continue Xifaxan as ordered - F/u with GI/hepatology as OP for his cirrhosis - Will follow. Thank you for allowing us to participate in the care of this patient. Please call with any acute changes, questions or concerns. Please see addendum below with additional recommendation from my supervising physician. (2) Acute hepatic encephalopathy: Supervising Physician Co-Signing Physician Notes I have personally seen and examined the patient with BRENDA Redmond. Her note reflects my exam and findings. I agree with her impression and plan. Follow H/H. No current benefit from endoscopic eval. Jeffery Hyatt M.D. History of Present Illness Reason for Consultation: GI bleed Requesting Physician: Dc Attending Physician: Meg Lopez, DO History of Present Illness 66 year old male with history of PSVT, liver 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, and severe portal hypertensive gastropathy causing GI bleed history, ascites, SCC, HTN, GERD, psoriatic arthritis, spinal stenosis, CKD, and others with recent EGD x 2 (April and May 2021) with severe PHG with oozing admitted w/ UTI and altered mental status. GI asked to evaluate this AM for GIB and AMS. Pt was seen and evaluated, chart reviewd. He is awake, alert and oriented x 3. Able to provide accurate medical history. He notes that yesterday he had some dark stools but this has since resolved this AM. Brown stools reported by patient and nurse. No BRBPR. He has had some mild nausea. Novomiting. Tolerating PO intake well. No fever, chills, CP, SOB. HGB at his baseline BUN and APPLICATION LEAD both elevated INR 1.2 Ammonia yesterday elevated at 86. This AM returned to normal at 58 Allergies Allergy/AdvReac Type Severity Reaction Status Date / Time tamsulosin Allergy Intermediate HIVES Verified 11/26/21 16:05 etanercept [From Enbrel] AdvReac Unknown Increased Verified 11/26/21 16:05 infections Home Medications Medication Instructions Recorded Confirmed Type furosemide 20 mg tablet 40 mg PO BID #360 tabs 06/23/20 11/26/21 Rx betamethasone dipropionate 0.05 % 1 applic topical DIRECTED PRN 05/10/21 11/26/21 History topical ointment Skin Irritation cholecalciferol (vitamin D3) 50 50 mcg PO QAM #90 caps 05/15/21 11/26/21 Rx mcg (2,000 unit) capsule pantoprazole 40 mg tablet,delayed 40 mg PO BID #60 tabs 06/28/21 11/26/21 Rx release rifaximin 550 mg tablet (Xifaxan) 550 mg PO BID #60 tabs 06/28/21 11/26/21 Rx spironolactone 100 mg tablet 100 mg PO QAM #90 tabs 06/28/21 11/26/21 Rx adalimumab 40 mg/0.4 mL 40 mg (0.4 mL) subcut Q14D #2 ea 06/29/21 11/26/21 Rx subcutaneous pen kit (Humira(CF) Pen) sertraline 25 mg tablet 25 mg PO DAILY #30 tabs 08/23/21 11/26/21 Rx lactulose 10 gram/15 mL oral 20 g (30 mL) PO BID #946 mL 09/19/21 11/26/21 Rx solution darbepoetin coretta in polysorbat 60 60 mcg (0.3 mL) subcut .COMPLEX #2 09/27/21 11/26/21 Rx mcg/0.3 mL in polysorbate SYRINGES injection syringe (Aranesp) vitamin B complex 1 tab PO DAILY 10/23/21 11/26/21 History carvedilol 6.25 mg tablet 6.25 mg PO BID #180 tabs 10/25/21 11/26/21 Rx potassium chloride 20 mEq 20 meq PO DAILY #90 tabs 10/25/21 11/26/21 Rx tablet,extended release Patient History Medical History Anemia 3 BLOOD TRANSFUSIONS SINCE APRIL- UNSURE WHERE BLOOD LOSS IS COMING FROM Ascites Cervical disc disease CKD (chronic kidney disease), stage III Depression GAVE (gastric antral vascular ectasia) Per records GERD (gastroesophageal reflux disease) History of herniated intervertebral disc lumbar area History of SCC (squamous cell carcinoma) of skin S/p removal- follows with derm Hx of blood clots 06/2021 @ [facility]- pt reports blood clot in left arm around IV site after being discharged from hospital- no meds due to current blood loss issue- warm compresses to site per pt- 2 ultrasounds done - no current issues Hypertension Hypothyroidism 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 Lumbar disc disease Oral mucositis On mouthwash daily- no recent issues Portal hypertensive gastropathy Psoriasis Psoriatic arthritis PVT (portal vein thrombosis) denies Spinal stenosis EPIDURAL INJECTIONS IN PAST FOR PAIN RELIEF TMJ arthralgia Urinary retention Wide-complex tachycardia ON CARDVEDILOL-F/U DR VANESSA LAST VISIT<1 YR AGO Surgical History H/O foot surgery excision of neuroma b/l feet History of appendectomy History of arthroscopy RT KNEE History of cataract surgery RT/LEFT History of cholecystectomy History of esophagogastroduodenoscopy (EGD) History of herniorrhaphy right inguinal History of lithotripsy History of liver biopsy History of repair of rotator cuff RT/LEFT History of tooth extraction History of urologic surgery Urethral reconstruction 4 years ago at [facility] Nausea and vomiting after administration of anesthetic agent S/P colonoscopy S/P epidural steroid injection S/P orchiectomy Right age 9 for UDT S/P urological surgery (2018) [facility] urethroplasty-[facility] Suprapubic catheter AND REMOVAL Family History Grandmother (Maternal) Diabetes Father Renal cancer Mother Aortic aneurysm Denies family history of Ovarian cancer Prostate cancer Myocardial infarction Breast cancer Colorectal cancer Social History Smoking Status: Never smoker Second Hand Exposure: No; Hx Alcohol Use: No Hx Substance Use: No Preferred Language: Yakut Communication Ability: Effective Visual Impairment: No Limitations Hearing Ability: Hard of Hearing Heating Worker Required: No Beliefs That Will Affect Care: None marital status: / Current Living Situation: Family Current Living Situation Comment: Lives with son current occupational status: retired How many Children do You have: 1 Feels Safe at Home: Yes Safety Concerns: Feels Safe At This Time Diet Comment: regular caffeine: Yes during the past year weight has: decreased > 10 lbs Dental Care, Regularly: No Physical Activity Frequency: Other Physical Activity Frequency Comment: does all housework/outside work and cuts wood Seatbelt Use: never Sunscreen Use: No Assistive Devices: Glasses Assistive Devices Comment: walking stick Review of Systems Review of Systems: All systems reviewed & are unremarkable except as noted in HPI & below Physical Exam Constitutional: WD/WN, vitals as above Neck: trachea midline, no thyromegaly Respiratory: normal respiratory effort, lungs clear to auscultation Cardiovascular: Rate/Rhythm: regular rate and regular rhythm Gastrointestinal (Abdomen): normal bowel sounds, soft, nontender, no hepatosplenomegaly Skin: no rashes, warm and dry Results & Data ([facility]) Vital Signs (Past 12 Hours) Vital Signs Temp Pulse Pulse Resp BP Pulse Ox O2 Del Method 11/28/21 08:19 60 104/67 11/28/21 06:25 57 L 11/28/21 03:24 36.5 C 61 18 107/65 97 Room Air 11/27/21 23:02 36.8 C 71 20 112/70 97 Room Air 11/27/21 22:18 68 Laboratory Results 11/28/21 11/28/21 11/28/21 Range/Units 06:03 05:54 05:54 WBC (4.8-10.8) K/ul RBC (4.63-6.08) M/uL Hgb (14.0-18.0) g/dl Hct (40.1-51.0) % MCV (80.0-100.0) fL MCH (25.0-34.0) pg MCHC (32.0-36.0) g/dL RDW Std Deviation (36.4-46.3) fL RDW Coeff of Miguel (11.5-14.5) % Plt Count (130-400) K/uL MPV (9.4-12.4) fL Immature Gran % (Auto) % Neut % (Auto) % Lymph % (Auto) % [place] % (Auto) % Eos % (Auto) % Baso % (Auto) % Neut # (Auto) (1.4-6.5) K/uL Lymph # (Auto) (1.2-3.4) K/uL [place] # (Auto) (0.24-0.82) K/uL Eos # (Auto) (0-0.50) K/uL Baso # (Auto) (0-0.2) K/uL Immature Gran # (Auto) (0.00-0.02) K/uL Polychromasia Tear Drop Cells Ovalocytes ESR 19 (0-20) mm/hr Sodium 136 (136-145) mmol/L Potassium 3.9 (3.5-5.1) mmol/L Chloride 106 (98-107) mmol/L Carbon Dioxide 25 (21-32) mmol/L Anion Gap 5 (3-11) BUN 30 H (6-23) mg/dl Creatinine 2.02 H D (0.6-1.4) mg/dl Est Cr Clr Drug Dosing 44.6 ml/min Est GFR ( Amer) 38.4 ml/min Est GFR (Non-Af Amer) 33.1 ml/min BUN/Creatinine Ratio 14.9 (10-20) Glucose 201 H (70-99(Fasting)) mg/dl Calcium 9.6 (8.5-10.1) mg/dl Total Bilirubin 1.4 H (0.2-1.0) mg/dl AST 44 H (13-39) U/L ALT 21 (7-52) U/L Alkaline Phosphatase 83 (34-104) U/L Ammonia (18-72) umol/L C-Reactive Protein 0.89 H (0-0.5) mg/dl Total Protein 5.3 L (6.0-8.3) gm/dl Albumin 2.6 L (3.4-5.0) gm/dl Globulin 2.7 (2.5-4.0) gm/dl Albumin/Globulin Ratio 1.0 (0.9-2) Prostate Specific Ag 0.095 (0-4) ng/ml Stool Occult Bld Scrn (Negative) 10/04/22 10/03/22 10/03/22 Range/Units 05:54 22:43 08:39 WBC 4.07 L (4.8-10.8) K/ul RBC 2.70 L (4.63-6.08) M/uL Hgb 9.3 L (14.0-18.0) g/dl Hct 28.1 L (40.1-51.0) % MCV 104.1 H (80.0-100.0) fL MCH 34.4 H (25.0-34.0) pg MCHC 33.1 (32.0-36.0) g/dL RDW Std Deviation 64.6 H (36.4-46.3) fL RDW Coeff of Miguel 17.0 H (11.5-14.5) % Plt Count 75 L (130-400) K/uL MPV 9.4 (9.4-12.4) fL Immature Gran % (Auto) 0.2 % Neut % (Auto) 52.3 % Lymph % (Auto) 21.4 % [place] % (Auto) 16.7 % Eos % (Auto) 8.4 % Baso % (Auto) 1.0 % Neut # (Auto) 2.13 (1.4-6.5) K/uL Lymph # (Auto) 0.87 L (1.2-3.4) K/uL [place] # (Auto) 0.68 (0.24-0.82) K/uL Eos # (Auto) 0.34 (0-0.50) K/uL Baso # (Auto) 0.04 (0-0.2) K/uL Immature Gran # (Auto) 0.01 (0.00-0.02) K/uL Polychromasia 1+ Tear Drop Cells 1+ Ovalocytes ESR (0-20) mm/hr Sodium (136-145) mmol/L Potassium (3.5-5.1) mmol/L Chloride (98-107) mmol/L Carbon Dioxide (21-32) mmol/L Anion Gap (3-11) BUN (6-23) mg/dl Creatinine (0.6-1.4) mg/dl Est Cr Clr Drug Dosing ml/min Est GFR ( Amer) ml/min Est GFR (Non-Af Amer) ml/min BUN/Creatinine Ratio (10-20) Glucose (70-99(Fasting)) mg/dl Calcium (8.5-10.1) mg/dl Total Bilirubin (0.2-1.0) mg/dl AST (13-39) U/L ALT (7-52) U/L Alkaline Phosphatase (34-104) U/L Ammonia 58.0 (18-72) umol/L C-Reactive Protein (0-0.5) mg/dl Total Protein (6.0-8.3) gm/dl Albumin (3.4-5.0) gm/dl Globulin (2.5-4.0) gm/dl Albumin/Globulin Ratio (0.9-2) Prostate Specific Ag (0-4) ng/ml Stool Occult Bld Scrn Positive A (Negative) 11/27/21 11/27/21 Range/Units 08:39 08:39 WBC (4.8-10.8) K/ul RBC 2.81 L (4.63-6.08) M/uL Hgb (14.0-18.0) g/dl Hct (40.1-51.0) % MCV 104.6 H (80.0-100.0) fL MCH 34.9 H (25.0-34.0) pg MCHC 33.3 (32.0-36.0) g/dL RDW Std Deviation 68.1 H (36.4-46.3) fL RDW Coeff of Miguel 17.5 H (11.5-14.5) % Plt Count (130-400) K/uL MPV (9.4-12.4) fL Immature Gran % (Auto) % Neut % (Auto) % Lymph % (Auto) % [place] % (Auto) % Eos % (Auto) % Baso % (Auto) % Neut # (Auto) (1.4-6.5) K/uL Lymph # (Auto) (1.2-3.4) K/uL [place] # (Auto) (0.24-0.82) K/uL Eos # (Auto) (0-0.50) K/uL Baso # (Auto) (0-0.2) K/uL Immature Gran # (Auto) (0.00-0.02) K/uL Polychromasia 1+ Tear Drop Cells 1+ Ovalocytes 1+ ESR (0-20) mm/hr Sodium (136-145) mmol/L Potassium 4.3 (3.5-5.1) mmol/L Chloride (98-107) mmol/L Carbon Dioxide (21-32) mmol/L Anion Gap (3-11) BUN (6-23) mg/dl Creatinine (0.6-1.4) mg/dl Est Cr Clr Drug Dosing ml/min Est GFR ( Amer) ml/min Est GFR (Non-Af Amer) ml/min BUN/Creatinine Ratio (10-20) Glucose (70-99(Fasting)) mg/dl Calcium (8.5-10.1) mg/dl Total Bilirubin (0.2-1.0) mg/dl AST (13-39) U/L ALT (7-52) U/L Alkaline Phosphatase (34-104) U/L Ammonia (18-72) umol/L C-Reactive Protein (0-0.5) mg/dl Total Protein (6.0-8.3) gm/dl Albumin (3.4-5.0) gm/dl Globulin (2.5-4.0) gm/dl Albumin/Globulin Ratio (0.9-2) Prostate Specific Ag (0-4) ng/ml Stool Occult Bld Scrn (Negative) (1) Urinary tract infection Hematuria presence: with hematuria Urinary tract infection type: site unspecified Qualified Code(s): N39.0 - Urinary tract infection, site not specified; R31.9 - Hematuria, unspecified
[2021-11-28] MEDS: cefTRIAXone SODIUM 2,000 MG in DEXTROSE 5% 50 ML IV SCH (10:59)
[2021-11-28 13:27] LABS: Estimated Average Glucose 103 mg/dl; Hemoglobin A1C 5.2 % (4.5-5.6)
[2021-11-28 14:35] LABS: Hematocrit (blood only) 31.7 % (40.1-51.0); Hemoglobin 10.7 g/dl (14.0-18.0)
[2021-11-28] MEDS: PANTOprazole 40 MG in SYRINGE 0 ML IV SCH (21:47)
--- NOTE | 2021-11-29 06:13 | Gastroenterology Progress Note ---
Date of Service November 29, 2021 Assessment & Plan (1) Urinary tract infection: Plan: 66 year old male w/ SERRANO cirrhosis, with repeated admission for anemia, GIB, severe PHG w/ oozing, PHTN, now admitted w/ UTI, GI asked to evaluate for AMS which has since resolved, and intermittent dark stools which resolved and he notes brown stools this AM His vitals and HGB have remained stable overnight, he continues to have brown stools on 11/29 - No acute indication for EGD evaluation - Can advance diet as tolerated - Would recommend IV PPI BID x 48 hours - Trend HGB, transfuse PRN - Continue carvedilol and PPI for h/o UGIB, severe PHG w/ oozing - Monitor and document GI output - Would continue Lactulose as ordered - Would continue Xifaxan as ordered - F/u with GI/hepatology as OP for his cirrhosis - Repeat kidney function, if elevated, evaluate for HRS and nephrology consultation - Please recall as needed. Thank you for allowing us to participate in the care of this patient. Please call with any acute changes, questions or concerns. Please see addendum below with additional recommendation from my supervising physician. (2) Acute hepatic encephalopathy: Admission and Anticipated Discharge Date Admission Date: November 26, 2021 Supervising Physician Co-Signing Physician Notes I have personally seen and examined the patient with BRENDA Redmond. Her note reflects my exam and findings. I agree with her impression and plan. H/H stable. No signs of active GI bleeding. Jeffery Hyatt M.D. Subjective Pt was seen and evaluated, chart reviewed. Feeling well this AM. Denies abd pain, nausea, vomiting. Is hungry, requesting breakfast. Moved his stool this morning, loose/semi-formed, brown. No black or bloody stools. Memory clear, notes he is feeling better. Review of Systems Review of Systems: All systems reviewed & are unremarkable except as noted in HPI & below Physical Exam Constitutional: WD/WN, vitals as above Neck: trachea midline, no thyromegaly Respiratory: normal respiratory effort, lungs clear to auscultation Cardiovascular: Rate/Rhythm: regular rate and regular rhythm Gastrointestinal (Abdomen): normal bowel sounds, soft, nontender, no hepatosplenomegaly Skin: no rashes, warm and dry Results & Data ([facility]) Vital Signs (Past 12 Hours) Vital Signs Temp Pulse Resp BP Pulse Ox O2 Del Method 11/29/21 03:08 36.5 C 64 18 97/61 L 98 Room Air 11/28/21 22:55 36.6 C 71 18 105/67 98 Room Air 11/28/21 19:24 36.6 C 60 18 125/76 99 Room Air Laboratory Results 11/28/21 11/28/21 11/28/21 Range/Units 12:52 06:03 05:54 WBC (4.8-10.8) K/ul RBC (4.63-6.08) M/uL Hgb 10.7 L (14.0-18.0) g/dl Hct 31.7 L (40.1-51.0) % MCV (80.0-100.0) fL MCH (25.0-34.0) pg MCHC (32.0-36.0) g/dL RDW Std Deviation (36.4-46.3) fL RDW Coeff of Miguel (11.5-14.5) % Plt Count (130-400) K/uL MPV (9.4-12.4) fL Immature Gran % (Auto) % Neut % (Auto) % Lymph % (Auto) % [place] % (Auto) % Eos % (Auto) % Baso % (Auto) % Neut # (Auto) (1.4-6.5) K/uL Lymph # (Auto) (1.2-3.4) K/uL [place] # (Auto) (0.24-0.82) K/uL Eos # (Auto) (0-0.50) K/uL Baso # (Auto) (0-0.2) K/uL Immature Gran # (Auto) (0.00-0.02) K/uL Polychromasia Tear Drop Cells ESR (0-20) mm/hr Sodium (136-145) mmol/L Potassium (3.5-5.1) mmol/L Chloride (98-107) mmol/L Carbon Dioxide (21-32) mmol/L Anion Gap (3-11) BUN (6-23) mg/dl Creatinine (0.6-1.4) mg/dl Est Cr Clr Drug Dosing ml/min Est GFR ( Amer) ml/min Est GFR (Non-Af Amer) ml/min BUN/Creatinine Ratio (10-20) Glucose (70-99(Fasting)) mg/dl Estimat Average Glucose 103 mg/dl Hemoglobin A1c 5.2 (4.5-5.6) % Calcium (8.5-10.1) mg/dl Total Bilirubin (0.2-1.0) mg/dl AST (13-39) U/L ALT (7-52) U/L Alkaline Phosphatase (34-104) U/L C-Reactive Protein (0-0.5) mg/dl Total Protein (6.0-8.3) gm/dl Albumin (3.4-5.0) gm/dl Globulin (2.5-4.0) gm/dl Albumin/Globulin Ratio (0.9-2) Prostate Specific Ag 0.095 (0-4) ng/ml 11/28/21 11/28/21 11/28/21 Range/Units 05:54 05:54 05:54 WBC 4.07 L (4.8-10.8) K/ul RBC 2.70 L (4.63-6.08) M/uL Hgb 9.3 L (14.0-18.0) g/dl Hct 28.1 L (40.1-51.0) % MCV 104.1 H (80.0-100.0) fL MCH 34.4 H (25.0-34.0) pg MCHC 33.1 (32.0-36.0) g/dL RDW Std Deviation 64.6 H (36.4-46.3) fL RDW Coeff of Miguel 17.0 H (11.5-14.5) % Plt Count 75 L (130-400) K/uL MPV 9.4 (9.4-12.4) fL Immature Gran % (Auto) 0.2 % Neut % (Auto) 52.3 % Lymph % (Auto) 21.4 % [place] % (Auto) 16.7 % Eos % (Auto) 8.4 % Baso % (Auto) 1.0 % Neut # (Auto) 2.13 (1.4-6.5) K/uL Lymph # (Auto) 0.87 L (1.2-3.4) K/uL [place] # (Auto) 0.68 (0.24-0.82) K/uL Eos # (Auto) 0.34 (0-0.50) K/uL Baso # (Auto) 0.04 (0-0.2) K/uL Immature Gran # (Auto) 0.01 (0.00-0.02) K/uL Polychromasia 1+ Tear Drop Cells 1+ ESR 19 (0-20) mm/hr Sodium 136 (136-145) mmol/L Potassium 3.9 (3.5-5.1) mmol/L Chloride 106 (98-107) mmol/L Carbon Dioxide 25 (21-32) mmol/L Anion Gap 5 (3-11) BUN 30 H (6-23) mg/dl Creatinine 2.02 H D (0.6-1.4) mg/dl Est Cr Clr Drug Dosing 44.6 ml/min Est GFR ( Amer) 38.4 ml/min Est GFR (Non-Af Amer) 33.1 ml/min BUN/Creatinine Ratio 14.9 (10-20) Glucose 201 H (70-99(Fasting)) mg/dl Estimat Average Glucose mg/dl Hemoglobin A1c (4.5-5.6) % Calcium 9.6 (8.5-10.1) mg/dl Total Bilirubin 1.4 H (0.2-1.0) mg/dl AST 44 H (13-39) U/L ALT 21 (7-52) U/L Alkaline Phosphatase 83 (34-104) U/L C-Reactive Protein 0.89 H (0-0.5) mg/dl Total Protein 5.3 L (6.0-8.3) gm/dl Albumin 2.6 L (3.4-5.0) gm/dl Globulin 2.7 (2.5-4.0) gm/dl Albumin/Globulin Ratio 1.0 (0.9-2) Prostate Specific Ag (0-4) ng/ml (1) Urinary tract infection Hematuria presence: with hematuria Urinary tract infection type: site unspecified Qualified Code(s): N39.0 - Urinary tract infection, site not specified; R31.9 - Hematuria, unspecified
[2021-11-29 07:14] LABS: Hematocrit (blood only) 29.3 % (40.1-51.0); Hemoglobin 10.1 g/dl (14.0-18.0); Mean Corpuscular Hemoglobin 34.4 pg (25.0-34.0); Mean Corpuscular Hgb Conc 34.5 g/dL (32.0-36.0); Mean Corpuscular Volume 99.7 fL (80.0-100.0); Mean Platelet Volume 9.6 fL (9.4-12.4); Platelet Count 82 K/uL (130-400); RDW Coefficient of Variation 16.6 % (11.5-14.5); RDW Standard Deviation 60.6 fL (36.4-46.3); Red Blood Count 2.94 M/uL (4.63-6.08); White Blood Count 5.29 K/ul (4.8-10.8)
[2021-11-29 07:25] LABS: Albumin Globulin Ratio 0.9 (0.9-2); Albumin Level 2.6 gm/dl (3.4-5.0); BUN Creatinine Ratio 15.8 (10-20); Bilirubin,Total 1.7 mg/dl (0.2-1.0); Calcium 9.4 mg/dl (8.5-10.1); Creatinine Clr Calc Pharmacy 43.2 ml/min; Est GFR (African American) 36.9 ml/min; Est GFR (Non-African American) 31.8 ml/min; Globulin 2.8 gm/dl (2.5-4.0); Potassium 4.6 mmol/L (3.5-5.1); Total Protein 5.4 gm/dl (6.0-8.3)
[2021-11-29] MEDS: LACTULOSE SYRUP 30 GM/45 ML UDP PO SCH ×3 (07:47→20:29)
[2021-11-29] MEDS: rifAXIMin 550 MG TABLET PO SCH ×2 (07:48→20:30)
[2021-11-29] MEDS: SPIRONOLACTONE 100 MG TAB PO SCH (07:48)
[2021-11-29] MEDS: SERTRALINE HCL 50 MG TABLET PO SCH (07:48)
[2021-11-29] MEDS: PANTOprazole 40 MG in SYRINGE 0 ML IV SCH ×2 (07:48→20:29)
[2021-11-29] MEDS: CHOLECALCIFEROL 1,000 UNITS 25 MCG TAB PO SCH (07:48)
[2021-11-29] MEDS: POTASSIUM CHLORIDE CRTAB 20 MEQ TABCR PO SCH (07:49)
--- NOTE | 2021-11-29 09:06 | Discharge Summary ---
Discharge Summary Date of Service November 29, 2021 Admission HPI Per Admitting Provider Sebastian Quiñonez is a 66-year-old male with a past medical history of psoriasis, fatty liver disease, squamous cell carcinoma of the skin, hypertension, hypothyroidism, GERD, CKD, liver cirrhosis 2/2 SERRANO with severe portal hypertensive gastropathy and recurrent GI bleeding, and PSVT who presents to the emergency department with altered mental status by EMS. Last known normal was day before admission. Per report no black or bloody bowel movements, no fever, no trauma. Incontinent of stool/urine. ER metabolic assessment: No leukocytosis, hemoglobin 10.6 from last 9.5, MCV 103.9. VBG normal (7.3 ///), sodium normal, potassium 5.0, creatinine baseline 1.82.3, 1.7 on admission. T bili intermittently elevated to baseline, 2.7 on admission. Direct bili 0.6, AST 42, ALT normal, alk phos 106 last 162. per son improving, but still off. Ammonia is acutely elevated to 86. Albumin low at 2.8. Procalcitonin is negative. UA is contaminated appearing with epithelial cells, but 4+ bacteria and leukocyte esterase and blood. COVID-negative. CTA/P: Cirrhosis with stigmata of portal venous hypertension, splenomegaly/abdominal varicosities/trace ascites. Mild wall thickening of the cecum and ascending colon suggestive of portal colopathy. Mild nonspecific colitis cannot be ruled out but considered less likely. No evidence of bowel obstruction or free air. Nonobstructing bilateral nephrolithiasis. CThead: No acute findings Given rocephin for UTI, covers for SBP No fever. Per EMS slightly hypotension. Per patient: +dysuria. Poor memory. Seen with son at bedside. Per son working with PT and had trouble with balance. No fevers, chills, night sweats. No BRBPR, No melena. Has chronically positive Hemoccult positive stools with portal gastropathy, but is actually doing well and had a his outpatient dose of EPO held as his blood levels were greater than 10. Took no medicines today. Prior to today has been taking all medications as dire cted Patient is a somewhat poor historian but endorses burning with urination today, and thinks in the last day or so. Otherwise 10 point review of systems negative. No fluid retention, feels his legs are actually doing well and better than normal baseline. No chest pain, chest pressure, lightheaded, dizziness, presyncope, syncope Medical History: Reviewed Medications: Reviewed Surgical History: Reviewed Allergies: Reviewed Social History: Reviewed, no recent tobacco/alcohol use Code Status: Renny Quiñonez (son) [phone] surrogate DM. DNR/DNI. Principal Dx & Hospital Course #1 = Principal Diagnosis (1) Acute hepatic encephalopathy: Presented with acute altered mental status, and reports that he does not r emember being transported by EMS to this location. Ammonia level elevated from baseline on admission, since downtrended. Given rapid resolution in mentation. Continue lactulose and rifaximin - ammonia and cognition back to baseline. (2) Urinary tract infection: Reportedly dysuria present in the days prior to presentation - resolved today. Pin point growth on urine culture - continue to follow. Continue ceftriaxone 1g IV daily. (3) Acute alteration in mental status: Suspect secondary to UTI and hepatic encephalopathy. Appears mostly resolved per son and patient. Some generalized abdominal pain on exam but with resolution of symptoms, alternative explanation and only trace ascites on CT A/P, therefore suspicion for SBP is low. PT and OT recommend home health services for patient. (4) GI bleed: Several days of dark / black stools before admission, with hx GIB. GI consulted and appreciate recommendations: No indication for urgent scope at present. Liquid diet x1 day, and PPI IV BID x2 days. H/H stable, will check in AM as well. (5) Thrombocytopenia: History of, chronic, secondary to SERRANO cirrhosis. Daily cbc. (6) PSVT (paroxysmal supraventricular tachycardia): Continue carvedilol; hold if BP soft. (7) GERD (gastroesophageal reflux disease): Continue PPI. (8) CKD (chronic kidney disease), stage III: Baseline creatinine 1.61.97. Creatinine 1.75 on admission. Renally dose medications, avoid nephrotoxins. (9) 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: - Sequelae including pancytopenia with splenic sequestration, SERRANO, anemia of chronic disease. Continue rifaximin twice daily. Continue lactulose, titrate to 34 bowel movements daily. Continue carvedilol. Continue PPI. Continue Lasix as able based on BPs as well as spironolactone. Hemoglobin stable at 10.7. Occult positive stool in ER, patient having black stool a few days ago but has since resolved. Last GI 09/13/2021. Colonoscopy 09/07/2021 which showed 2 polyps in the ascending colon, normal rectum/anal Sam. Every 3 year surveillance. (10) Hypertension: Continue carvedilol, Lasix, spironolactone. - BP hypotensive this AM with some lightheadedness so did hold Lasix and ca rvedilol. Plan DVT prophylaxis: SCDs; heparin deferred with Hemoccult positive BM and gastropathy CODE STATUS: DNR/DNI Disposition: Medical telemetry Diet: Heart healthy, low Na liquid diet Updated Medication List Medication Instructions Recorded Confirmed Type furosemide 20 mg tablet 40 mg PO BID #360 tabs 06/23/20 11/26/21 Rx betamethasone dipropionate 0.05 % 1 applic topical DIRECTED PRN 05/10/21 11/26/21 History topical ointment Skin Irritation cholecalciferol (vitamin D3) 50 50 mcg PO QAM #90 caps 05/15/21 11/26/21 Rx mcg (2,000 unit) capsule pantoprazole 40 mg tablet,delayed 40 mg PO BID #60 tabs 06/28/21 11/26/21 Rx release rifaximin 550 mg tablet (Xifaxan) 550 mg PO BID #60 tabs 06/28/21 11/26/21 Rx spironolactone 100 mg tablet 100 mg PO QAM #90 tabs 06/28/21 11/26/21 Rx adalimumab 40 mg/0.4 mL 40 mg (0.4 mL) subcut Q14D #2 ea 06/29/21 11/26/21 Rx subcutaneous pen kit (Humira(CF) Pen) sertraline 25 mg tablet 25 mg PO DAILY #30 tabs 08/23/21 11/26/21 Rx lactulose 10 gram/15 mL oral 20 g (30 mL) PO BID #946 mL 09/19/21 11/26/21 Rx solution darbepoetin coretta in polysorbat 60 60 mcg (0.3 mL) subcut .COMPLEX #2 09/27/21 11/26/21 Rx mcg/0.3 mL in polysorbate SYRINGES injection syringe (Aranesp) vitamin B complex 1 tab PO DAILY 10/23/21 11/26/21 History carvedilol 6.25 mg tablet 6.25 mg PO BID #180 tabs 10/25/21 11/26/21 Rx potassium chloride 20 mEq 20 meq PO DAILY #90 tabs 10/25/21 11/26/21 Rx tablet,extended release cephalexin 500 mg capsule 500 mg PO BID 2 days #4 caps 11/29/21 Rx Hospital Stay Data Consultations 11/26/21 13:11 ED Decision to Admit Stat 11/28/21 06:21 Consult Gastroenterology Routine Diagnostic Imagining Performed 11/26/21 09:40 CT head/brain wo con Stat 11/26/21 10:52 CT abd pelvis wo con Stat Pending Results Patient Have Any Pending Studies at Discharge: No Discharge Instructions Given to Patient (Per Discharging Provider) You were admitted to the hospital for evaluation of weakness and altered mental status. You were found to have high ammonia level. You are also found to have evidence of a UTI on your urine studies. You were given medication to help br ing that ammonia level down, as well as antibiotics for the UTI. At home, you should continue your lactulose as you were with a goal of 3-4 bowel movements daily. If you are not having that, please contact your lactulose prescriber to increase your dose. On discharge, you were prescribed cephalexin for 2 more days of antibiotic therapy. You should take this pill once every 12 hours with food and water. You should take this until it is gone even if you are not having any urinary symptoms. This was sent to [facility] pharmacy in [place]. If you have any return of your symptoms, or any chest pain, trouble breathing, or other concerning symptoms, please seek urgent medical evaluation. You should have follow-up with your primary care provider in the next 7 days or so to have a hospital follow-up appointment. You will have labwork on Saturday to check your blood count. This lab was [facility] the [facility] and can be done at any [facility] lab. Coding Diagnoses Acute hepatic encephalopathy K76.82 Urinary tract infection N39.0; R31.9 Hematuria presence: with hematuria Urinary tract infection type: site unspecified Acute alteration in mental status R41.82 GI bleed K92.2 GI bleed type/associated pathology: unspecified gastrointestinal hemor rhage type Thrombocytopenia D69.6 PSVT (paroxysmal supraventricular tachycardia) I47.1 GERD (gastroesophageal reflux disease) K21.9 CKD (chronic kidney disease), stage III N18.3 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 K75.81; K74.60 Hypertension I10
[2021-11-29] MEDS ORDERED: SODIUM CHLORIDE 0.9% 1000ML 500 ML IV ONE ×3 (10:05→19:02)
--- NOTE | 2021-11-29 10:07 | Hospitalist Progress Note ---
Date of Service November 29, 2021 Assessment & Plan (1) Acute hepatic encephalopathy: Plan: Presented with acute altered mental status, and reports that he does not remember being transported by EMS to this location. Ammonia level elevated from baseline on admission, since downtrended. Patient has had rapid improvement in his mentation and is close to his baseline per family members. Continue lactulose and rifaximin - ammonia and cognition back to baseline. Will hold next dose of lactulose because patient is already had 4 BMs today and want to avoid dehydration given his hypotension. (2) Hypotension: Plan: Since admission patient has had some soft blood pressures in the 80s to 100s systolic. Blood pressures are remaining stable in that same zone while holding Coreg and Lasix. Today orthostatics were done which showed systolic of high 60s with symptoms of dizziness per patient. As described above we will be careful with lactulose dosing as patient is having profuse amounts of bowel movements which could be contributing to dehydration. Patient's creatinine elevated mildly from the last 2 days, could suggest element of dehydration as well. NSS 500 cc bolus/reassess x3 today without decompensation in respiratory status. Will repeat orthostatic vitals tomorrow. Encourage p.o. intake of fluids and low-sodium diet. (3) Urinary tract infection: Plan: Reportedly dysuria present in the days prior to presentation - resolved today. Culture was mixed jairon, however given symptoms of dysuria and altered mental status on admission in a male patient will treat as complicated UTI. Continue ceftriaxone 1g IV daily, to complete on 12/03. (4) GI bleed: Plan: Several days of dark / black stools before admission, with hx GIB. GI consulted and appreciate recommendations: No indication for urgent scope at present. Liquid diet x1 day, and PPI IV BID x2 days. H/H stable. (5) Thrombocytopenia: Plan: History of, chronic, secondary to SERRANO cirrhosis. Platelets are at baseline and 80s. (6) PSVT (paroxysmal supraventricular tachycardia): Plan: History of, typically on carvedilol however we are holding this due to hypotension. Telemetry for cardiac monitoring. (7) GERD (gastroesophageal reflux disease): Plan: Continue PPI. (8) CKD (chronic kidney disease), stage III: Plan: Baseline creatinine 1.62.1. Creatinine 2.1 today. Renally dose medications, avoid nephrotoxins. (9) 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: Plan: Sequelae including pancytopenia with splenic sequestration, SERRANO, anemia of chronic disease. Continue rifaximin twice daily. Continue lactulose, titrate to 34 bowel movements daily. Continue carvedilol. Continue PPI. Continue Lasix as able based on BPs as well as spironolactone. Hemoglobin stable at 10.7. Occult positive stool in ER, patient having black stool a few days ago but has since resolved. Last GI 09/13/2021. Colonoscopy 09/07/2021 which showed 2 polyps in the ascending colon, normal rectum/anal Sam. Every 3 year surveillance. Plan DVT prophylaxis: SCDs; heparin deferred with Hemoccult positive BM and gastropathy CODE STATUS: DNR/DNI Disposition: Medical telemetry Diet: Heart healthy, low Na liquid diet Admission and Anticipated Discharge Date Admission Date: November 26, 2021 Subjective Patient without acute events overnight. Patient does feel much better when lying in bed, however did experience dizziness and hypotension with standing up for orthostatic vitals today. He denies chest pain or trouble breathing, shortness of breath, abdominal pain. He did have to use the bathroom several times last night after his evening dose of lactulose, and has had several bowel movements already today and is worried about becoming dehydrated. He asks to hold on lactulose for short period. He denies any more dark black stools. Review of Systems Review of Systems: All systems reviewed & are unremarkable except as noted in Subjective Physical Exam Constitutional: WD/WN, vitals as above Hypotensive on orthostatic vitals Neck: trachea midline, no thyromegaly Respiratory: normal respiratory effort, lungs clear to auscultation Cardiovascular: Rate/Rhythm: regular rate and regular rhythm Gastrointestinal (Abdomen): normal bowel sounds, soft, nontender, no hepatosplenomegaly Skin: no rashes, warm and dry Results & Data Results & Data ([facility]) Vital Signs (Past 12 Hours) Vital Signs Temp Pulse Pulse Resp BP BP Pulse Ox 11/29/21 07:41 36.3 C L 92 H 20 97/64 L 100 11/29/21 07:40 75 11/29/21 03:08 36.5 C 64 18 97/61 L 98 11/28/21 22:55 36.6 C 71 18 105/67 98 O2 Del Method 11/29/21 07:41 Room Air 11/29/21 07:40 11/29/21 03:08 Room Air 11/28/21 22:55 Room Air PG Care Time/CCT Total # of Minutes Spent Total Time Spent with Patient: Total time spent is greater than 50% in coordination of care (as documented) at patient's floor/unit and/or counseling patient: Coding Level of Care Code 69134 Subseq Hosp Care Lvl 3 Diagnoses Acute hepatic encephalopathy K76.82 Hypotension I95.9 Urinary tract infection N39.0; R31.9 Hematuria presence: with hematuria Urinary tract infection type: site unspecified GI bleed K92.2 GI bleed type/associated pathology: unspecified gastrointestinal hemorrhage type Thrombocytopenia D69.6 PSVT (paroxysmal supraventricular tachycardia) I47.1 GERD (gastroesophageal reflux disease) K21.9 CKD (chronic kidney disease), stage III N18.3 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 K75.81; K74.60 (1) Urinary tract infection Hematuria presence: with hematuria Urinary tract infection type: site unspecified Qualified Code(s): N39.0 - Urinary tract infection, site not specified; R31.9 - Hematuria, unspecified (2) GI bleed GI bleed type/associated pathology: unspecified gastrointestinal hemorrhage type Qualified Code(s): K92.2 - Gastrointestinal hemorrhage, unspecified
[2021-11-29] MEDS: cefTRIAXone SODIUM 2,000 MG in DEXTROSE 5% 50 ML IV SCH (10:55)
[2021-11-30 06:48] LABS: Mean Platelet Volume 9.5 fL (9.4-12.4); Platelet Count 74 K/uL (130-400); White Blood Count 4.54 K/ul (4.8-10.8)
[2021-11-30 07:10] LABS: Albumin Globulin Ratio 0.9 (0.9-2); Albumin Level 2.4 gm/dl (3.4-5.0); BUN Creatinine Ratio 15.4 (10-20); Bilirubin,Total 1.1 mg/dl (0.2-1.0); Calcium 8.8 mg/dl (8.5-10.1); Creatinine Clr Calc Pharmacy 50.1 ml/min; Est GFR (African American) 43.6 ml/min; Est GFR (Non-African American) 37.6 ml/min; Globulin 2.6 gm/dl (2.5-4.0); Potassium 4.2 mmol/L (3.5-5.1)
[2021-11-30 07:26] LABS: Mean Corpuscular Hemoglobin 34.2 pg (25.0-34.0); Mean Corpuscular Hgb Conc 33.3 g/dL (32.0-36.0); Mean Corpuscular Volume 102.7 fL (80.0-100.0); RDW Coefficient of Variation 16.5 % (11.5-14.5); RDW Standard Deviation 61.9 fL (36.4-46.3); Red Blood Count 2.63 M/uL (4.63-6.08)
[2021-11-30] MEDS ORDERED: SODIUM CHLORIDE 0.9% 1000ML 500 ML IV ONE (08:11)
[2021-11-30] MEDS: rifAXIMin 550 MG TABLET PO SCH (08:39)
[2021-11-30] MEDS: SPIRONOLACTONE 100 MG TAB PO SCH (08:39)
[2021-11-30] MEDS: POTASSIUM CHLORIDE CRTAB 20 MEQ TABCR PO SCH (08:39)
[2021-11-30] MEDS: CHOLECALCIFEROL 1,000 UNITS 25 MCG TAB PO SCH (08:39)
[2021-11-30] MEDS: SERTRALINE HCL 50 MG TABLET PO SCH (08:40)
[2021-11-30] MEDS: PANTOprazole 40 MG in SYRINGE 0 ML IV SCH (08:41)
[2021-11-30] MEDS: LACTULOSE SYRUP 30 GM/45 ML UDP PO SCH (08:41)
[2021-11-30] MEDS: cefTRIAXone SODIUM 2,000 MG in DEXTROSE 5% 50 ML IV SCH (11:30)
--- NOTE | 2021-11-30 12:27 | Discharge Summary ---
Discharge Summary Date of Service November 30, 2021 Admission Exam Per Admitting Provider General: Oriented to name and building. Not oriented to city or year. Pleasant, cooperative, answers questions mostly appropriately although with poor memory and follows 1 and two-step commands HEENT: Atraumatic, normocephalic. Pupils equal and reactive to light. Skin: No jaundice or scleral icterus. Scattered telangiectasias of the upper chest. No erythema/warmth Pulm: CTAB A&P. -wheezes, -rales, -rhonchi. Symmetrical chest rise. No increase in work of breathing. No respiratory distress. Cardiac: RRR, -mrg. Radial pulses intact and symmetrical. Abdominal: Mildly tender in the infraumbilical region, no focal tenderness or rebound. Abdomen is soft, without rigidity/guarding Extremities: Warm, dry. Moving upper extremities equally with full core analysis operator stren gth/elbow flexion/extension which are symmetrical. Somewhat weak in lower extremities but is able to lift hips off the bed against resistance bilaterally. Pitting edema in the lower extremities bilaterally, better than the normal baseline per patient. Principal Dx & Hospital Course #1 = Principal Diagnosis (1) Acute hepatic encephalopathy: Presented with acute altered mental status, and reports that he does not remember being transported by EMS to this location. Ammonia level elevated from baseline on admission, since downtrended. Continue lactulose and rifaximin - ammonia and cognition back to baseline. Educated patient on titration of lactulose up and down in order to have 3-4 bowel movements daily. (2) Hypotension: Hypotensive for several days, specifically with orthostatic hypotension following treatment for hyperammonemia with lactulose causing many bowel movements. Patient was not orthostatic on day of discharge. Patient is on lactulose 20 mg twice daily and rifaximin twice daily. Continue rifaximin with adjustment of lactulose up and down as needed for 3-4 bowel move ments daily. Encourage p.o. intake of fluids and low-sodium diet. Continue to hold Lasix and Coreg on discharge. Had long discussion about risk versus benefit of holding/resuming these medications. It was decided that we would hold them in the interim until seen by his PCP. This is with the understanding that he needs to adhere very strictly to a low-sodium diet since he will not be taking his twice daily diuretic. If he feels short of breath he has been advised to take a dose of his diuretic and to call his PCP promptly. (3) Urinary tract infection: Reportedly dysuria present in the days prior to presentation - resolved today. Culture was mixed jairon, however given symptoms of dysuria and altered mental status on admission in a male patient will treat as complicated UTI. Was started on ceftriaxone during admission. Will complete antibiotics on 12/03; cephalexin twice daily sent to home pharmacy. (4) GI bleed: Several days of dark / black stools before admission, with hx GIB. GI consulted and appreciate recommendations: No indication for urgent scope at present. H/H stable at 9.0 on day of discharge. CBC ordered for early next week to ensure no further drop. Patient has not had any black stools to indicate further GI bleeding. (5) Thrombocytopenia: History of, chronic, secondary to SERRANO cirrhosis. Platelets are at baseline. (6) PSVT (paroxysmal supraventricular tachycardia): History of, typically on carvedilol however we are holding this due to hypotensive episodes. Will likely resume this following appointment with PCP. Patient was advised that as long as his blood pressure is in the 120s systolic he can take his Coreg as prescribed. (7) GERD (gastroesophageal reflux disease): Continue PPI. (8) CKD (chronic kidney disease), stage III: Baseline creatinine 1.62.1. Creatinine 1.82 today. (9) 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: Sequelae including pancytopenia with splenic sequestration, SERRANO, anemia of chronic disease. Continue rifaximin twice daily. Continue lactulose, titrate to 34 bowel movements daily. Holding carvedilol, with ultimate goal to continue once blood pressures recover. Continue PPI. Continue spironolactone. Hold Lasix for now until resumed by PCP. Hemoglobin 9.0. Occult positive stool in ER, patient having black stool a few days ago but has since resolved. Last GI 09/13/2021. Colonoscopy 09/07/2021 which showed 2 polyps in the ascending colon, normal rectum/anal Sam. Every 3 year surveillance recommended. Plan Disposition: Home with home health services. PT and OT worked with patient and felt that he was stable for home with PT several times a week. Discharge Exam Constitutional WD/WN, vitals as above Respiratory normal respiratory effort, lungs clear to auscultation Cardiovascular RRR, no murmur, no edema Gastrointestinal (Abdomen) Abdomen soft nontender nondistended Skin no rashes, warm and dry Psychiatric A+Ox3, euthymic affect Updated Medication List Medication Instructions Recorded Confirmed Type betamethasone dipropionate 0.05 % 1 applic topical DIRECTED PRN 05/10/21 11/26/21 History topical ointment Skin Irritation cholecalciferol (vitamin D3) 50 50 mcg PO QAM #90 caps 05/15/21 11/26/21 Rx mcg (2,000 unit) capsule pantoprazole 40 mg tablet,delayed 40 mg PO BID #60 tabs 06/28/21 11/26/21 Rx release rifaximin 550 mg tablet (Xifaxan) 550 mg PO BID #60 tabs 06/28/21 11/26/21 Rx spironolactone 100 mg tablet 100 mg PO QAM #90 tabs 06/28/21 11/26/21 Rx adalimumab 40 mg/0.4 mL 40 mg (0.4 mL) subcut Q14D #2 ea 06/29/21 11/26/21 Rx subcutaneous pen kit (Humira(CF) Pen) sertraline 25 mg tablet 25 mg PO DAILY #30 tabs 08/23/21 11/26/21 Rx lactulose 10 gram/15 mL oral 20 g (30 mL) PO BID #946 mL 09/19/21 11/26/21 Rx solution darbepoetin coretta in polysorbat 60 60 mcg (0.3 mL) subcut .COMPLEX #2 09/27/21 11/26/21 Rx mcg/0.3 mL in polysorbate SYRINGES injection syringe (Aranesp) vitamin B complex 1 tab PO DAILY 10/23/21 11/26/21 History potassium chloride 20 mEq 20 meq PO DAILY #90 tabs 10/25/21 11/26/21 Rx tablet,extended release cephalexin 500 mg capsule 500 mg PO BID 2 days #4 caps 11/29/21 Rx Hospital Stay Data Consultations 11/26/21 13:11 ED Decision to Admit Stat 11/28/21 06:21 Consult Gastroenterology Routine Diagnostic Imagining Performed 11/26/21 09:40 CT head/brain wo con Stat 11/26/21 10:52 CT abd pelvis wo con Stat Pending Results Patient Have Any Pending Studies at Discharge: No Discharge Instructions Given to Patient (Per Discharging Provider) You were admitted to the hospital for evaluation of weakness and altered mental status. You were found to have high ammonia level. You are also found to have evidence of a UTI on your urine studies. You were given medication to help bring that ammonia level down, as well as antibiotics for the UTI. At home, you should continue your lactulose with a goal of 3-4 bowel movements daily. If you are not having that, please contact your lactulose prescriber to increase your dose. If you are having more than 5 or 6 bowel movements a day, you should adjust her lactulose accordingly to decrease the amount of bowel movements you are having. When you were in the hospital he had some episodes of lightheadedness with standing up. This was due to the amount of fluid that he lost with the bowel movements that you had. We held your Lasix and your carvedilol for a few days and gave you a little bit of IV fluids and your blood pressures came back up to range that was safe for you to discharge home. You worked with physical and Occupational Therapy and they felt you are safe for home with home health services. I recommend that you continue to hold your Lasix for the next couple of days and to communicate with your primary care provider you should also continue to hold your Coreg unless you start to feel your heart race. If you are starting to have trouble breathing and feeling fluid overloaded please take the Lasix and call your primary care provider right away. On discharge, you were prescribed cephalexin for 2 more days of antibiotic therapy. You should take this pill once every 12 hours with food and water. You should take this until it is gone even if you are not having any urinary symptoms. This was sent to [facility] pharmacy in [place]. If you have any return of your symptoms, or any chest pain, trouble breathing, or other concerning symptoms, please seek urgent medical evaluation. You should have follow-up with your primary care provider in the next 7 days or so to have a hospital follow-up appointment. You should have lab work next week to check your blood count. This lab was ordered in the [facility] system and can be done at any [facility] lab. Total Time Total Time Spent Total Time Spent (In Minutes): 40 minutes Coding Level of Care Code D/C DAY MANAGEMENT >30 MINS Diagnoses Acute hepatic encephalopathy K76.82 Hypotension I95.9 Urinary tract infection N39.0; R31.9 Hematuria presence: with hematuria Urinary tract infection type: site unspecified GI bleed K92.2 GI bleed type/associated pathology: unspecified gastrointestinal hemorrhage type Thrombocytopenia D69.6 PSVT (paroxysmal supraventricular tachycardia) I47.1 GERD (gastroesophageal reflux disease) K21.9 CKD (chronic kidney disease), stage III N18.3 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 K75.81; K74.60
== END 2021-11-30 14:28 | disposition home health service (06) | DRG 689 ==
LOC: ED 09:29 → SUATTDRO 13:28 → EDINP 13:28 → 2N 18:51

== ENCOUNTER 2022-02-07 17:07 | Inpatient (IN) ==
[2022-02-07] MEDS ORDERED: cefTRIAXone SODIUM 2,000 MG/70 ML BAG IV STA (17:57)
[2022-02-07] MEDS ORDERED: PANTOPRAZOLE BOLUS/DRIP 1 EACH IV STA (17:57)
[2022-02-07] MEDS ORDERED: PANTOprazole 80 MG in DEXTROSE 5% 100 ML IV ONE (17:57)
--- NOTE | 2022-02-07 17:58 | Emergency Department Note ---
Impression & Plan GI bleed, 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, Symptomatic anemia, Pancytopenia ED Provider Note NAME: SHMUEL KNOTT AGE: 66 SEX: M : 1955 ARRIVES VIA: Walk-In INFORMANT: Patient ED PROVIDER(S): Margarito Winters DO CHIEF COMPLAINT: BRBPR HPI: Patient is a 66-year-old male with a past medical history of pancytopenia, portal hypertension, 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 that presents to the ER for bright red blood per rectum with clots associated with dark tarry stools which just started today. Denies any blood thinners. No headache or change in vision. He does feel weak and rundown. No chest pain or shortness of breath. He has been having right-sided abdominal pain since a fall about a month ago. No dysuria, urgency, or frequency. No other exacerbating or remitting factors. ROS: See above HPI for pertinent positives & negatives. A total of 10 systems reviewed and were otherwise negative. PAST MEDICAL HISTORY:See Below PAST SURGICAL HISTORY:See Below FAMILY HISTORY:See Below SOCIAL HISTORY:See Below HOME MEDICATIONS:See Below ALLERGIES:See Below VITALS:See Below PHYSICAL EXAMINATION: GENERAL: Sitting up in bed, alert, chronically ill-appearing, disheveled EYE EXAM: normal conjunctiva. PERRL and EOM's grossly intact. OROPHARYNX: no exudate, no erythema, lips, buccal mucosa, and tongue normal and mucous membranes are moist NECK: supple, no nuchal rigidity, no adenopathy, non-tender LUNGS: Clear to auscultation. Normal chest wall mechanics HEART: no murmurs, S1 normal and S2 normal ABDOMEN: abdomen soft, non-tender, normo-active bowel sounds, no masses, no rebound or guarding. RECTAL: Heme positive stool UPPER EXTREMITIES: upper extremities are grossly normal. LOWER EXTREMITIES: No pitting edema. NEURO EXAM: Normal sensorium, cranial nerves II-XII grossly intact, normal speech, no gross weakness of arms, no gross weakness of legs. = MEDICAL DECISION MAKING: Patient is a 66-year-old male who presents ER for dark tarry stools associated with passing blood clots per rectum. History of SERRANO with previous upper GI bleeds. IV was established blood work was obtained. He is placed on Protonix drip and bolus. Rectal heme positive. Pancytopenia with a white count of 1 and hemoglobin 7.5 down from baseline of 8.5. Platelets were low at 57 which is decreased from his baseline previously around 1. Is moderately neutropenic which is new. INR unremarkable. BMP with a creatinine of 2.1 consistent with previous. Bili 1.6. Troponin negative. CT abdomen pelvis showed no acute pathology. Patient was updated bedside. Discussed with the hospitalist admitted for further work-up to Dr. Soren Martinez. Was ordered and given 1 unit PRBCs while in the ER. Triage Nursing notes reviewed. Limited review of prior medical records performed Vital Signs: reviewed and remarkable for tachy Differential diagnosis: Differential diagnoses includes but is not limited to gastritis, peptic ulcer disease, GERD, gallbladder disease, pancreatitis, small bowel obstruction, acute coronary syndrome, pericarditis, ischemic bowel, irritable bowel disease, irritable bowel syndrome, appendicitis, diverticulitis, malignancy, hernia, urinary tract infection, torsion, perforation, trauma, infectious. ER treatment provided: See below Diagnostics interpreted by me: ECG: Sinus rhythm rate 95 Normal axis No PVCs QTC 477 Cardiac Monitoring: An order was placed for continuous cardiac monitoring. The monitor shows a rate of 92 with sinus rhythm. Laboratory studies: As stated above and show below. Imaging studies: CT abdomen pelvis shows cirrhosis. Consultation(s): D?W Dr. Salgado for further eval. Procedures: none Critical Care: I have personally spent 32 minutes of critical care time in the direct management of this patient. This includes bedside care, interpretation of diagnostic studies, and testing, discussion with consultants, patient, and family members, and other required patient management activities. This 32 minutes is in excess of all separately billable procedures. Past Med/Surg History Medical History Acute alteration in mental status Acute hepatic encephalopathy Anemia Ascites Cervical disc disease CKD (chronic kidney disease), stage III Depression GAVE (gastric antral vascular ectasia) GERD (gastroesophageal reflux disease) History of herniated intervertebral disc History of SCC (squamous cell carcinoma) of skin Hx of blood clots Hypertension Hypothyroidism 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 Lumbar disc disease Oral mucositis Portal hypertensive gastropathy Psoriasis Psoriatic arthritis PVT (portal vein thrombosis) Spinal stenosis TMJ arthralgia Urinary retention Urinary tract infection Wide-complex tachycardia Surgical History H/O foot surgery History of appendectomy History of arthroscopy History of cataract surgery History of cholecystectomy History of esophagogastroduodenoscopy (EGD) History of herniorrhaphy History of lithotripsy History of liver biopsy History of repair of rotator cuff History of tooth extraction History of urologic surgery Nausea and vomiting after administration of anesthetic agent S/P colonoscopy S/P epidural steroid injection S/P orchiectomy S/P urological surgery (2018) Suprapubic catheter Family History Grandmother (Maternal) Diabetes Father Renal cancer Mother Aortic aneurysm Denies family history of Ovarian cancer Prostate cancer Myocardial infarction Breast cancer Colorectal cancer Social History Smoking Status: Former smoker Second Hand Exposure: No; Hx Alcohol Use: No Hx Substance Use: No Preferred Language: Thai Communication Ability: Effective Visual Impairment: No Limitations Hearing Ability: Hard of Hearing Director Emergency Services Required: No Beliefs That Will Affect Care: None marital status: / Current Living Situation: Family Current Living Situation Comment: Lives with son current occupational status: retired How many Children do You have: 1 Feels Safe at Home: Yes Diet Comment: regular caffeine: Yes during the past year weight has: decreased > 10 lbs Dental Care, Regularly: No Physical Activity Frequency: Other Physical Activity Frequency Comment: does all housework/outside work and cuts wood Seatbelt Use: never Sunscreen Use: No Assistive Devices: Glasses Allergies Allergies Allergy/AdvReac Type Severity Reaction Status Date / Time tamsulosin Allergy Intermediate HIVES Verified 02/07/22 20:25 etanercept [From Enbrel] AdvReac Intermediate Increased Verified 02/07/22 20:25 infections Home Meds Home Medications Medication Instructions Recorded Confirmed betamethasone dipropionate 0.05 % 1 applic topical DIRECTED PRN 05/10/21 topical ointment Skin Irritation vitamin B complex 1 tab PO DAILY 10/23/21 02/07/22 sertraline 50 mg tablet 50 mg PO HS 02/07/22 02/07/22 Previous Rx's Medication Instructions Recorded cholecalciferol (vitamin D3) 50 50 mcg PO QAM #90 caps 05/15/21 mcg (2,000 unit) capsule lactulose 10 gram/15 mL oral 20 g (30 mL) PO BID #946 mL 09/19/21 solution furosemide 20 mg tablet 20 mg PO DAILY #360 tabs 12/29/21 adalimumab 40 mg/0.4 mL 40 mg (0.4 mL) subcut Q14D #2 ea 01/03/22 subcutaneous pen kit (Humira(CF) Pen) spironolactone 50 mg tablet 50 mg PO QAM #90 tabs 01/04/22 darbepoetin coretta in polysorbat 60 60 mcg (0.3 mL) subcut .COMPLEX #2 01/05/22 mcg/0.3 mL in polysorbate SYRINGES injection syringe (Aranesp) midodrine 5 mg tablet 5 mg PO TID #90 tabs 01/05/22 pantoprazole 40 mg tablet,delayed 40 mg PO BID #60 tabs 01/16/22 release rifaximin 550 mg tablet (Xifaxan) 550 mg PO BID #60 tabs 01/16/22 Results & Data (ED) Vital Signs Vital Signs - 24 hr 02/07/22 17:24 02/07/22 17:27 02/07/22 19:50 Temperature 36.9 C 37 C Temperature Source Temporal Artery Scan Oral Pulse Rate 102 H 83 Pulse Rate [Apical] Pulse Rhythm Regular Regular Pulse Strength Normal Normal Respiratory Rate 20 18 Respiratory Effort / Characteristics Non-Labored Spontaneous Respiratory Depth Normal Respiratory Pattern Regular Blood Pressure 132/74 137/76 Blood Pressure [Right Arm] Blood Pressure Mean 93 96 Blood Pressure Mean [Right Arm] Blood Pressure Position Sitting Pulse Oximetry 100 98 Oxygen Delivery Method Room Air Room Air Sepsis Recent Fever Within 48 Hours No Sepsis New/Unexplained Change in Mental Status N/A Sepsis Action Taken by Nursing No Action Required 02/07/22 20:00 02/07/22 20:15 02/07/22 20:30 Temperature 37 C 37 C 37.2 C Temperature Source Oral Oral Oral Pulse Rate 88 86 86 Pulse Rate [Apical] Pulse Rhythm Pulse Strength Respiratory Rate 20 20 22 Respiratory Effort / Characteristics Respiratory Depth Respiratory Pattern Blood Pressure 121/71 127/75 115/71 Blood Pressure [Right Arm] Blood Pressure Mean 87 92 85 Blood Pressure Mean [Right Arm] Blood Pressure Position Lying Pulse Oximetry 98 98 98 Oxygen Delivery Method Sepsis Recent Fever Within 48 Hours Sepsis New/Unexplained Change in Mental Status Sepsis Action Taken by Nursing 02/07/22 21:00 02/07/22 20:00 02/07/22 21:30 Temperature 38.6 C H 37.0 C Temperature Source Oral Oral Pulse Rate 90 85 Pulse Rate [Apical] 87 Pulse Rhythm Pulse Strength Respiratory Rate 18 18 20 Respiratory Effort / Characteristics Non-Labored Spontaneous Respiratory Depth Normal Respiratory Pattern Regular Blood Pressure 125/75 124/64 Blood Pressure [Right Arm] 121/71 Blood Pressure Mean 91 84 Blood Pressure Mean [Right Arm] 87 Blood Pressure Position Pulse Oximetry 97 98 98 Oxygen Delivery Method Room Air Sepsis Recent Fever Within 48 Hours Sepsis New/Unexplained Change in Mental Status Sepsis Action Taken by Nursing 02/07/22 21:00 02/07/22 22:00 02/07/22 22:38 Temperature 37.2 C 36.8 C 36.9 C Temperature Source Oral Oral Oral Pulse Rate 85 85 Pulse Rate [Apical] Pulse Rhythm Pulse Strength Respiratory Rate 18 20 Respiratory Effort / Characteristics Respiratory Depth Respiratory Pattern Blood Pressure 121/70 134/72 Blood Pressure [Right Arm] Blood Pressure Mean 87 92 Blood Pressure Mean [Right Arm] Blood Pressure Position Pulse Oximetry 97 96 Oxygen Delivery Method Sepsis Recent Fever Within 48 Hours Sepsis New/Unexplained Change in Mental Status Sepsis Action Taken by Nursing Laboratory Data Result diagrams: 02/07/22 Unknown 02/07/22 Unknown Lab Results 02/07/22 02/07/22 02/07/22 Range/Units 17:27 18:33 21:19 WBC (4.8-10.8) K/ul RBC (4.63-6.08) M/uL Hgb (14.0-18.0) g/dl Hct (40.1-51.0) % MCV (80.0-100.0) fL MCH (25.0-34.0) pg MCHC (32.0-36.0) g/dL RDW Std Deviation (36.4-46.3) fL RDW Coeff of Miguel (11.5-14.5) % Plt Count (130-400) K/uL MPV (9.4-12.4) fL Immature Gran % (Auto) % Neut % (Auto) % Lymph % (Auto) % Stanly % (Auto) % Eos % (Auto) % Baso % (Auto) % Neut # (Auto) (1.4-6.5) K/uL Lymph # (Auto) (1.2-3.4) K/uL Stanly # (Auto) (0.24-0.82) K/uL Eos # (Auto) (0-0.50) K/uL Baso # (Auto) (0-0.2) K/uL Immature Gran # (Auto) (0.00-0.02) K/uL Polychromasia Tear Drop Cells Ovalocytes PT (9.0-12.0) Seconds INR (0.9-1.1) APTT (21.0-31.0) Seconds PTT Ratio Sodium (136-145) mmol/L Potassium (3.5-5.1) mmol/L Chloride (98-107) mmol/L Carbon Dioxide (21-32) mmol/L Anion Gap (3-11) BUN (6-23) mg/dl Creatinine (0.6-1.4) mg/dl Est Cr Clr Drug Dosing ml/min Est GFR ( Amer) ml/min Est GFR (Non-Af Amer) ml/min BUN/Creatinine Ratio (10-20) Glucose (70-99(Fasting)) mg/dl Calcium (8.5-10.1) mg/dl Total Bilirubin (0.2-1.0) mg/dl AST (13-39) U/L ALT (7-52) U/L Alkaline Phosphatase (34-104) U/L Troponin I High Sens (0-20) pg/ml Total Protein (6.0-8.3) gm/dl Albumin (3.4-5.0) gm/dl Globulin (2.5-4.0) gm/dl Albumin/Globulin Ratio (0.9-2) POC Stool Occult Blood Positive A (Negative) SARS-CoV-2, RNA, NAAT NEGATIVE (NEGATIVE) Blood Type O Positive Antibody Screen NEGATIVE Crossmatch See Detail 02/07/22 02/07/22 02/07/22 Range/Units Unknown Unknown Unknown WBC 1.46 L (4.8-10.8) K/ul RBC 2.30 L (4.63-6.08) M/uL Hgb 7.5 L (14.0-18.0) g/dl Hct 23.5 L (40.1-51.0) % MCV 102.2 H (80.0-100.0) fL MCH 32.6 (25.0-34.0) pg MCHC 31.9 L (32.0-36.0) g/dL RDW Std Deviation 63.3 H (36.4-46.3) fL RDW Coeff of Miguel 16.9 H (11.5-14.5) % Plt Count 57 L (130-400) K/uL MPV 11.4 (9.4-12.4) fL Immature Gran % (Auto) 0.7 % Neut % (Auto) 34.9 % Lymph % (Auto) 22.6 % Stanly % (Auto) 32.9 % Eos % (Auto) 7.5 % Baso % (Auto) 1.4 % Neut # (Auto) 0.51 L* (1.4-6.5) K/uL Lymph # (Auto) 0.33 L (1.2-3.4) K/uL Stanly # (Auto) 0.48 (0.24-0.82) K/uL Eos # (Auto) 0.11 (0-0.50) K/uL Baso # (Auto) 0.02 (0-0.2) K/uL Immature Gran # (Auto) 0.01 (0.00-0.02) K/uL Polychromasia 1+ Tear Drop Cells 1+ Ovalocytes 1+ PT 14.9 H (9.0-12.0) Seconds INR 1.4 H (0.9-1.1) APTT 34.5 H (21.0-31.0) Seconds PTT Ratio 1.3 Sodium 136 (136-145) mmol/L Potassium 3.2 L (3.5-5.1) mmol/L Chloride 102 (98-107) mmol/L Carbon Dioxide 25 (21-32) mmol/L Anion Gap 9 (3-11) BUN 27 H (6-23) mg/dl Creatinine 2.13 H (0.6-1.4) mg/dl Est Cr Clr Drug Dosing 44.3 ml/min Est GFR ( Amer) 36.0 ml/min Est GFR (Non-Af Amer) 31.1 ml/min BUN/Creatinine Ratio 12.7 (10-20) Glucose 214 H (70-99(Fasting)) mg/dl Calcium 8.0 L (8.5-10.1) mg/dl Total Bilirubin 1.6 H (0.2-1.0) mg/dl AST 58 H (13-39) U/L ALT 21 (7-52) U/L Alkaline Phosphatase 99 (34-104) U/L Troponin I High Sens 11.8 (0-20) pg/ml Total Protein 5.6 L (6.0-8.3) gm/dl Albumin 2.2 L (3.4-5.0) gm/dl Globulin 3.4 (2.5-4.0) gm/dl Albumin/Globulin Ratio 0.6 L (0.9-2) POC Stool Occult Blood (Negative) SARS-CoV-2, RNA, NAAT (NEGATIVE) Blood Type Antibody Screen Crossmatch Administered Medications Pantoprazole Sodium 40 mg/ (Dextrose) 100 mls @ 20 mls/hr IV Q5H LUZ Stop: 03/09/22 18:14 Last Infusion: 02/07/22 20:33 Dose: 20 mg/hr, 50 mls/hr Documented By: Infusion: 02/07/22 19:52 Dose: 0 mg/hr, 0 mls/hr Documented By: Admin: 02/07/22 19:25 Dose: 8 mg/hr, 20 mls/hr Documented By: ORTIZ Discontinued Medications Ceftriaxone Sodium (Rocephin) 2,000 mg in 70 mls @ 140 mls/hr IV NOW STA Stop: 02/07/22 18:26 Last Infusion: 02/07/22 19:26 Dose: 0 mls/hr Documented By: Admin: 02/07/22 19:26 Dose: 140 mls/hr Documented By: GARLAND Pantoprazole Sodium (Protonix Bolus/Drip) 0 mls @ 1 mls/hr IV ONE STA Stop: 02/07/22 17:58 Last Admin: 02/07/22 19:27 Dose: Not Given Documented By: ORTIZ Pantoprazole Sodium 80 mg/ (Dextrose) 120 mls @ 400 mls/hr IV NOW ONE Stop: 02/07/22 18:14 Last Infusion: 02/07/22 19:26 Dose: 0 mls/hr Documented By: Admin: 02/07/22 18:36 Dose: 400 mls/hr Documented By: OL Imaging Data Radiologist's Impression: Abdomen/Pelvis CT 02/07/22 19:[address] WITHOUT CONTRAST CT DOSE: 1876.31 mGy.cm HISTORY: Rectal bleeding. Generalized abdominal pain. TECHNIQUE: Multiaxial CT images of the abdomen and pelvis were performed without contrast. A dose lowering technique was utilized adhering to the principles of ALARA. COMPARISON STUDY: Abdomen and pelvis CT 11/26/2021. FINDINGS: The lung bases are clear. No pneumoperitoneum. No pneumatosis. No fractures within the visualized osseous structures. Decreased attenuation within the blood pool consistent with an anemia. This remains unchanged. Ch olecystectomy. Cirrhotic liver with splenomegaly again noted. A small amount of ascites has developed in the interval. The unenhanced pancreas and adrenal glands are unremarkable. There are are a few punctate bilateral renal calculi. No ureteral calculi. No hydronephrosis. The main portal vein remains small in caliber and demonstrates a linear focus of calcification. This may represent chronic thrombus. Splenorenal varicosities again noted. Moderate diffuse gastric wall thickening with adjacent fat stranding. This is consistent with a nonspecific gastritis. No retroperitoneal lymphadenopathy. Normal caliber abdominal aorta. The bladder is unremarkable. No dilated loops of bowel to suggest an obstruction. Mild wall thickening of the proximal colon again noted suggestive of the portal colopathy. IMPRESSION: 1. Cirrhosis with stigmata of portal hypertension including splenomegaly, abdominal varicosities, and a small amount of ascites which has progressed in the interval. 2. Moderate gastric wall thickening with adjacent fat stranding consistent with a nonspecific gastritis. 3. Mild thickening within the proximal colon remains unchanged and favors a portal colopathy. 4. Bilateral nephrolithiasis. No hydronephrosis. 5. Additional findings as described above. ACT 112: Negative or not required by law. Electronically signed by: Joaquín Bolden M.D. 02/07/2022 8:33 PM Discharge Plan Visit Data Chief Complaint: Rectal Bleed Stated Complaint: BLOOD IN STOOL, BLOATED ABD ED Provider: Margarito Winters Discharge Problem: GI bleed, 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, Symptomatic anemia, Pancytopenia Forms Stand Alone Forms: [employer] Prescriptions Prescriptions: No Action cholecalciferol (vitamin D3) 50 mcg (2,000 unit) capsule 50 mcg PO QAM Qty: 90 3RF lactulose 10 gram/15 mL solution 20 g PO BID Qty: 946 3RF Rx Instructions: ON HOLD DUE TO LOOSE STOOLS Humira(CF) Pen 40 mg/0.4 mL pen injector kit 40 mg subcut Q14D Qty: 2 5RF Rx Instructions: "DUE 02/07/22, ON HOLD DUE TO ISSUES" PER PT. pantoprazole 40 mg tablet,delayed release (DR/EC) 40 mg PO BID Qty: 60 5RF Xifaxan 550 mg tablet 550 mg PO BID Qty: 60 5RF vitamin B complex Tablet 1 tab PO DAILY furosemide 20 mg tablet 20 mg PO DAILY Qty: 360 2RF Hold Instructions: Home Medication placed on hold at Doctor's office Aranesp (in polysorbate) 60 mcg/0.3 mL syringe 60 mcg subcut .COMPLEX Qty: 2 3RF Rx Instructions: Q weekly until Hgb >9. Then resume, Q other week. Hold for Hgb >10. spironolactone 50 mg tablet 50 mg PO QAM Qty: 90 2RF Hold Instructions: Home Medication placed on hold at Doctor's office midodrine 5 mg tablet 5 mg PO TID Qty: 90 0RF Rx Instructions: do not give last dose of day after 8M or within 4 hrs of bedtime betamethasone dipropionate 0.05 % ointment 1 applic topical DIRECTED PRN (Reason: Skin Irritation) Rx Instructions: Apply to areas of the trunk and extremities twice daily x 2 weeks as directed. sertraline 50 mg tablet 50 mg PO HS Referrals Referrals: Fiorella Castellano DO [Primary Care Provider] -
[2022-02-07] MEDS ORDERED: SODIUM CHLORIDE 0.9% 250 ML IV PRN (17:59)
[2022-02-07 18:19] LABS: Hematocrit (blood only) 23.5 % (40.1-51.0); Hemoglobin 7.5 g/dl (14.0-18.0); Mean Platelet Volume 11.4 fL (9.4-12.4); Platelet Count 57 K/uL (130-400); White Blood Count 1.46 K/ul (4.8-10.8)
[2022-02-07 18:45] LABS: INR 1.4 (0.9-1.1); Partial Thromboplastin Ratio 1.3; Partial Thromboplastin Time 34.5 Seconds (21.0-31.0); Prothrombin Time 14.9 Seconds (9.0-12.0)
[2022-02-07 18:50] LABS: Troponin I High Sensitivity 11.8 pg/ml (0-20)
[2022-02-07 18:51] LABS: Albumin Globulin Ratio 0.6 (0.9-2); Albumin Level 2.2 gm/dl (3.4-5.0); BUN Creatinine Ratio 12.7 (10-20); Bilirubin,Total 1.6 mg/dl (0.2-1.0); Creatinine Clr Calc Pharmacy 44.3 ml/min; Est GFR (Non-African American) 31.1 ml/min; Globulin 3.4 gm/dl (2.5-4.0); Potassium 3.2 mmol/L (3.5-5.1); Total Protein 5.6 gm/dl (6.0-8.3)
[2022-02-07] MEDS: PANTOprazole 40 MG in DEXTROSE 5% 100 ML IV SCH ×2 (19:25→23:47)
[2022-02-07 19:38] LABS: Mean Corpuscular Hemoglobin 32.6 pg (25.0-34.0); Mean Corpuscular Hgb Conc 31.9 g/dL (32.0-36.0); Mean Corpuscular Volume 102.2 fL (80.0-100.0); Ovalocytes 1+; Polychromasia 1+; RDW Coefficient of Variation 16.9 % (11.5-14.5); RDW Standard Deviation 63.3 fL (36.4-46.3); Tear Drop Cells 1+
[2022-02-07 19:44] LABS: Basophils # (auto) 0.02 K/uL (0-0.2); Basophils % (auto) 1.4 %; Eosinophils # (auto) 0.11 K/uL (0-0.50); Eosinophils % (auto) 7.5 %; Immature Granulocytes # (auto) 0.01 K/uL (0.00-0.02); Immature Granulocytes % (auto) 0.7 %; Lymphocytes # (auto) 0.33 K/uL (1.2-3.4); Lymphocytes % (auto) 22.6 %; Monocytes # (auto) 0.48 K/uL (0.24-0.82); Monocytes % (auto) 32.9 %; Neutrophils # (auto) 0.51 K/uL (1.4-6.5); Neutrophils % (auto) 34.9 %
--- NOTE | 2022-02-07 20:35 | CT Scan Report ---
ABDOMEN AND PELVIS CT WITHOUT CONTRAST CT DOSE: 1876.31 mGy.cm HISTORY: Rectal bleeding. Generalized abdominal pain. TECHNIQUE: Multiaxial CT images of the abdomen and pelvis were performed without contrast. A dose lo wering technique was utilized adhering to the principles of ALARA. COMPARISON STUDY: Abdomen and pelvis CT 11/26/2021. FINDINGS: The lung bases are clear. No pneumoperitoneum. No pneumatosis. No fractures within the visu alized osseous structures. Decreased attenuation within the blood pool consistent with an anemia. Thi s remains unchanged. Cholecystectomy. Cirrhotic liver with splenomegaly again noted. A small amount o f ascites has developed in the interval. The unenhanced pancreas and adrenal glands are unremarkable. There are are a few punctate bilateral renal calculi. No ureteral calculi. No hydronephrosis. The ma in portal vein remains small in caliber and demonstrates a linear focus of calcification. This may re present chronic thrombus. Splenorenal varicosities again noted. Moderate diffuse gastric wall thicken ing with adjacent fat stranding. This is consistent with a nonspecific gastritis. No retroperitoneal lymphadenopathy. Normal caliber abdominal aorta. The bladder is unremarkable. No dilated loops of bow el to suggest an obstruction. Mild wall thickening of the proximal colon again noted suggestive of th e portal colopathy. IMPRESSION: 1. Cirrhosis with stigmata of portal hypertension including splenomegaly, abdominal varicosities, and a small amount of ascites which has progressed in the interval. 2. Moderate gastric wall thickening with adjacent fat stranding consistent with a nonspecific gastrit is. 3. Mild thickening within the proximal colon remains unchanged and favors a portal colopathy. 4. Bilateral nephrolithiasis. No hydronephrosis. 5. Additional findings as described above. ACT 112: Negative or not required by law. Electronically signed by: Joaquín Bolden M.D. 02/07/2022 8:33 PM
--- NOTE | 2022-02-07 21:48 | History & Physical Report ---
Date of Service February 07, 2022 Assessment & Plan (1) Anemia: Plan: Patient is more appropriately pancytopenic in the past his pancytopenia has been attributed to his chronic liver disease per hematology consult December 2021 [facility] on darbepoetin and has received iron infusions Patient states he is having melena and clots in his bowel movements. Patient has stigmata of portal hypertension including a history of anemia, abdominal varicosities comments on CT scan and portal colopathy. patient patient received 1 unit packed red blood cells in the emergency department with a fever around that time. He had blood cultures obtained and started on Zosyn therapy in case fevers from a GI mucosal breach Last colonoscopy was August 2021 with removal of 2 polyps, last EGD was May 2021 with no signs of esophageal varices or stigmata of bleeding in the stomach Has been on Protonix bolus kept n.p.o. gastroenterology consultation will be undertaken, patient typically follows with [facility] last seen November 29, 2021 in the hospital with a very similar admission with recommendations as follows from that November note Would recommend IV PPI BID x 48 hours - Trend HGB, transfuse PRN -Recommendations for beta-chinedu seems to have to be discontinued due to low blood pressure patient currently on midodrine - Monitor and document GI output - Would continue Lactulose as ordered - Would continue Xifaxan as ordered - F/u with GI/hepatology as OP for his cirrhosis - Repeat kidney function, if elevated, evaluate for HRS and nephrology consultation (2) 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 Desir seems like his carvedilol needed to be discontinued for low blood pressures and currently on midodrine Had a event recorder November 16 last record of loop recorder showed brief episodes of SVT only lasting a few beats with rare ventricular ectopy however most episodes seem consistent with SVT (4) CKD (chronic kidney disease), stage III: Plan: Patient typically follows with Dr. Finn Rodney remains on Lasix and spironolactone for his liver disease with surveillance of his renal function Creatinine admission is slightly higher than his typical baseline but not COLLIN at this point (5) Psoriasis with arthropathy: Plan: Patient sees Dr. Catherine and also documented bullous pemphigoid. Patient is on Humira injections every 2 weeks with fever and pancytopenia we will hold until we can reach Dr. Catherine for further discussion (6) Depression: Plan: Patient remains on sertraline History of Present Illness Primary Care Provider: Fiorella Castellano, 66-year-old male with a past medical history of pancytopenia, portal hypertension, cirrhosis secondary to [place] and presents the ER for bright red blood per rectum with clots associated with dark tarry stools which just started today. Denies any blood thinners. No headache or change in vision. He does feel weak and rundown. No chest pain or shortness of breath. He has been having right-sided abdominal pain since a fall about a month ago. No dysuria urgency or frequency. No other exacerbating or remitting factors. Allergies Allergy/AdvReac Type Severity Reaction Status Date / Time tamsulosin Allergy Intermediate HIVES Verified 02/07/22 20:25 etanercept [From Enbrel] AdvReac Intermediate Increased Verified 02/07/22 20:25 infections Home Medications Medication Instructions Recorded Confirmed Type betamethasone dipropionate 0.05 % 1 applic topical DIRECTED PRN 05/10/21 02/07/22 History topical ointment Skin Irritation cholecalciferol (vitamin D3) 50 50 mcg PO QAM #90 caps 05/15/21 02/07/22 Rx mcg (2,000 unit) capsule lactulose 10 gram/15 mL oral 20 g (30 mL) PO BID #946 mL 09/19/21 02/07/22 Rx solution vitamin B complex 1 tab PO DAILY 10/23/21 02/07/22 History furosemide 20 mg tablet 20 mg PO DAILY #360 tabs 12/29/21 02/07/22 Rx adalimumab 40 mg/0.4 mL 40 mg (0.4 mL) subcut Q14D #2 ea 01/03/22 02/07/22 Rx subcutaneous pen kit (Humira(CF) Pen) spironolactone 50 mg tablet 50 mg PO QAM #90 tabs 01/04/22 02/07/22 Rx darbepoetin coretta in polysorbat 60 60 mcg (0.3 mL) subcut .COMPLEX #2 01/05/22 02/07/22 Rx mcg/0.3 mL in polysorbate SYRINGES injection syringe (Aranesp) midodrine 5 mg tablet 5 mg PO TID #90 tabs 01/05/22 02/07/22 Rx pantoprazole 40 mg tablet,delayed 40 mg PO BID #60 tabs 01/16/22 02/07/22 Rx release rifaximin 550 mg tablet (Xifaxan) 550 mg PO BID #60 tabs 01/16/22 02/07/22 Rx sertraline 50 mg tablet 50 mg PO HS 02/07/22 02/07/22 History Past Med/Surg History Medical History Acute alteration in mental status Acute hepatic encephalopathy Anemia Ascites Cervical disc disease CKD (chronic kidney disease), stage III Depression GAVE (gastric antral vascular ectasia) GERD (gastroesophageal reflux disease) History of herniated intervertebral disc History of SCC (squamous cell carcinoma) of skin Hx of blood clots Hypertension Hypothyroidism 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 Lumbar disc disease Oral mucositis Portal hypertensive gastropathy Psoriasis Psoriatic arthritis PVT (portal vein thrombosis) Spinal stenosis TMJ arthralgia Urinary retention Urinary tract infection Wide-complex tachycardia Surgical History H/O foot surgery History of appendectomy History of arthroscopy History of cataract surgery History of cholecystectomy History of esophagogastroduodenoscopy (EGD) History of herniorrhaphy History of lithotripsy History of liver biopsy History of repair of rotator cuff History of tooth extraction History of urologic surgery Nausea and vomiting after administration of anesthetic agent S/P colonoscopy S/P epidural steroid injection S/P orchiectomy S/P urological surgery (2018) Suprapubic catheter Family History Grandmother (Maternal) Diabetes Father Renal cancer Mother Aortic aneurysm Denies family history of Ovarian cancer Prostate cancer Myocardial infarction Breast cancer Colorectal cancer Social History Smoking Status: Former smoker Second Hand Exposure: No; Hx Alcohol Use: No Hx Substance Use: No Preferred Language: Tajik Communication Ability: Effective Visual Impairment: No Limitations Hearing Ability: Hard of Hearing Relay Associate Required: No Beliefs That Will Affect Care: None marital status: / Current Living Situation: Family Current Living Situation Comment: Lives with son current occupational status: retired How many Children do You have: 1 Feels Safe at Home: Yes Diet Comment: regular caffeine: Yes during the past year weight has: decreased > 10 lbs Dental Care, Regularly: No Physical Activity Frequency: Other Physical Activity Frequency Comment: does all housework/outside work and cuts wood Seatbelt Use: never Sunscreen Use: No Assistive Devices: Glasses Review of Systems Review of Systems: Mild distress and fatigue no headache, no visual changes no speech or swallowing issues no chest pain, pressure or palpitations no shortness of breath, cough or wheezes no abdominal pain, nausea or vomiting, diarrhea or constipation no dysuria, hematuria or frequency no focal joint pain or swelling no back pain, CVA tenderness or radicular pain no bruising, bleeding or rashes no focal signs of weakness or numbness or altered sensation no complaints of anxiety or depression.. Physical Exam Physical Exam: The patient appeared well nourished and normally developed. Vital signs as documented. Head exam is normocephalic atraumatic Neck is without JVD, thyromegaly, or carotid bruits. Lungs are clear to auscultation, no focal loss of breath sounds Cardiac exam, Rhythm is regular.. No murmurs, rubs or gallops. Abdominal exam reveals normal bowel sounds, soft non tender, no masses Extremities are nonedematous and both pedal pulses are present Neurologic exam is alert and oriented, no focal loss of strength or sensation Skin is without bruises or rashes Psychologically is without concerns for anxiety or depression.. Results & Data Results & Data ([facility]) Vital Signs (Past 12 Hours) Vital Signs Temp Pulse Pulse Resp BP BP Pulse Ox 02/07/22 20:00 87 18 121/71 98 02/07/22 21:00 101.5 F H 90 18 125/75 97 02/07/22 20:30 99.0 F 86 22 115/71 98 02/07/22 20:15 98.6 F 86 20 127/75 98 02/07/22 20:00 98.6 F 88 20 121/71 98 02/07/22 19:50 98.6 F 83 18 137/76 98 02/07/22 17:27 02/07/22 17:24 98.4 F 102 H 20 132/74 100 O2 Del Method 02/07/22 20:00 Room Air 02/07/22 21:00 02/07/22 20:30 02/07/22 20:15 02/07/22 20:00 02/07/22 19:50 02/07/22 17:27 Room Air 02/07/22 17:24 Room Air Diagnostic Findings Abdomen/Pelvis CT 02/07/22 19:[address] WITHOUT CONTRAST CT DOSE: 1876.31 mGy.cm HISTORY: Rectal bleeding. Generalized abdominal pain. TECHNIQUE: Multiaxial CT images of the abdomen and pelvis were performed without contrast. A dose lowering technique was utilized adhering to the principles of ALARA. COMPARISON STUDY: Abdomen and pelvis CT 11/26/2021. FINDINGS: The lung bases are clear. No pneumoperitoneum. No pneumatosis. No fractures within the visualized osseous structures. Decreased attenuation within the blood pool consistent with an anemia. This remains unchanged. Cholecystectomy. Cirrhotic liver with splenomegaly again noted. A small amount of ascites has developed in the interval. The unenhanced pancreas and adrenal glands are unremarkable. There are are a few punctate bilateral renal calculi. No ureteral calculi. No hydronephrosis. The main portal vein remains small in caliber and demonstrates a linear focus of calcification. This may represent chronic thrombus. Splenorenal varicosities again noted. Moderate diffuse gastric wall thickening with adjacent fat stranding. This is consistent with a nonspecific gastritis. No retroperitoneal lymphadenopathy. Normal caliber abdominal aorta. The bladder is unremarkable. No dilated loops of bowel to suggest an obstruction. Mild wall thickening of the proximal colon again noted suggestive of the portal colopathy. IMPRESSION: 1. Cirrhosis with stigmata of portal hypertension including splenomegaly, a bdominal varicosities, and a small amount of ascites which has progressed in the interval. 2. Moderate gastric wall thickening with adjacent fat stranding consistent with a nonspecific gastritis. 3. Mild thickening within the proximal colon remains unchanged and favors a portal colopathy. 4. Bilateral nephrolithiasis. No hydronephrosis. 5. Additional findings as described above. ACT 112: Negative or not required by law. Electronically signed by: Joaquín Bolden M.D. 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
[2022-02-08] MEDS ORDERED: MAGNESIUM SULFATE / D5W 1 GM/100 ML BAG IV ONE (01:46)
[2022-02-08] MEDS ORDERED: ALUMINUM/MAGNESIUM SUSP 30 ML UDC PO PRN (01:46)
[2022-02-08] MEDS ORDERED: BETAMETHASONE DIPROPIONATE 0.05% TOP PRN (01:46)
[2022-02-08] MEDS ORDERED: ONDANSETRON INJ 2 MG/ML 2 ML VIAL IV PRN (01:46)
[2022-02-08] MEDS ORDERED: PIPERACILLIN/TAZOBACTAM 4.5 GM/120 ML BAG IV STA (01:59)
[2022-02-08] MEDS ORDERED: PIPERACILLIN/TAZOBACTAM 3.375 GM in DEXTROSE 5% 100 ML IV ONE (02:00)
[2022-02-08] MEDS: POTASSIUM CHLORIDE CRTAB 20 MEQ TABCR PO SCH ×3 (03:08→21:52)
[2022-02-08 06:59] LABS: Hematocrit (blood only) 24.4 % (40.1-51.0); Mean Platelet Volume 9.9 fL (9.4-12.4); Platelet Count 43 K/uL (130-400); White Blood Count 1.19 K/ul (4.8-10.8)
[2022-02-08 07:22] LABS: Mean Corpuscular Hgb Conc 32.8 g/dL (32.0-36.0); Mean Corpuscular Volume 97.6 fL (80.0-100.0); RDW Coefficient of Variation 19.6 % (11.5-14.5); RDW Standard Deviation 69.8 fL (36.4-46.3)
[2022-02-08 07:30] LABS: Albumin Globulin Ratio 0.7 (0.9-2); Albumin Level 2.1 gm/dl (3.4-5.0); BUN Creatinine Ratio 13.5 (10-20); Bilirubin,Total 1.5 mg/dl (0.2-1.0); Creatinine Clr Calc Pharmacy 49.2 ml/min; Est GFR (African American) 40.8 ml/min; Est GFR (Non-African American) 35.2 ml/min; Globulin 3.2 gm/dl (2.5-4.0); Potassium 3.1 mmol/L (3.5-5.1); Total Protein 5.3 gm/dl (6.0-8.3)
[2022-02-08] MEDS ORDERED: POTASSIUM CHLORIDE CRTAB 20 MEQ TABCR PO STA (07:59)
[2022-02-08] MEDS ORDERED: PIPERACILLIN/TAZOBACTAM 4.5 GM in DEXTROSE 5% 100 ML IV SCH (08:00)
--- NOTE | 2022-02-08 08:01 | Hospitalist Progress Note ---
Date of Service February 08, 2022 Assessment & Plan (1) Anemia: Plan: Pancytopenia 2nd to cirrhosis, but presented with melena/bright clots in bowel movements at home. Hx GAVE (admit April for ABLA due to GAVE, CAROLANN w/ clipping and APC completed, 3uPRBC) Follows with Hematology at [facility] on darbepoetin monthly and has received iron infusions in the past CTAP on admit: Cirrhosis with stigmata of portal hypertension including splenomegaly, abdominal varicosities, and a small amount of ascites which has progressed in the interval. Moderate gastric wall thickening with adjacent fat stranding consistent with a nonspecific gastritis. Mild thickening within the proximal colon remains unchanged and favors a portal colopathy. Given 1u PRBC on admission with a fever at that time (T38.6C) for hgb 7.5. Repeat hgb 8.0 on AM labs Blood cultures pending Placed on Zosyn IV in case fever from mucosal breach (d/c given EGD findings) Protonix bolus in ER, I ordered IV BID following GI on consult -- follows with [facility] GI s/p EGD this morning with grade I varices with no bleeding or stigmata of recent bleeding. - Severe portal HTN gastropathy was found in entire examined stomach. Diffuse nature of stomach, no focal area identified to be able to be treated with APC. - Recs for protonix 20mg daily at discharge (ok by GI for 40mg PO while inpatient), carafate 1gm BID. Stop SSRI (on zoloft 50mg daily). Avoid NSAIDs (patient does not take, Dr Martinez told him not to take many years ago) Ordered clear liquid diet --> advance as tolerated. Tolerated clears and to get AHA/low salt diet for dinner Discussed with GI LYNDON, arranging for hepatology follow up for consideration for TIPS as outpatient Monitoring overnight/no ride due to weather, if stable, planning for discharge tomorrow (2) 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: Plan: Patient on lactulose and xifaxan, ammonia last stay was normal, mental status is clear Outpatient hepatology f/u for TIPS eval as above, given portal gastropathy (3) PSVT (paroxysmal supraventricular tachycardia): Plan: Hx SVT, had been on carvedilol 6.125mg BID previously, held at d/c last admis edilberto in November for low BPs. PCP notes to take if SBP 120s. Follows with Dr Hartman, has event recorder, 11/16 showed brief episode SVT only lasting few beats w/ rate ventricular ectopy Had seen Dr Martinez December 21, had rec'd to cut patient lasix back to 20mg daily Has been SR in the 80s on monitor (4) CKD (chronic kidney disease), stage III: Plan: Follows with Dr Martinez, baseline Cr ~2 Continues on midodrine 5mg TID for BP support, lasix reduced to 20mg most recently. Has NOT been on spironolactone for several months per patient. Will adjust med rec Cr 2.13 on admit, 1u PRBC as above Cr 1.92 on AM labs Renal dose meds/avoid nephrotoxins as able (5) Psoriasis with arthropathy: Plan: Follows with Dr Catherine, also w/ hx bullous pemphigoid, on Humira [id number] Initially discussed with Dr Stephenson this morning given concerns for infection/Zosyn/mucosal breach, ok'd to hold as no flare/psoraisis and seen recently Given EGD as above, Zosyn discontinued Can continue Humira outpatient (6) Depression: Plan: Patient remains on sertraline -- discontinuing medication per GI recs/cirrhosis. Of note, patient on 25mg daily, med rec lists 25mg (7) Symptomatic anemia: Plan: as above, patient reports feeling improved (8) Acute blood loss anemia: (9) COLLIN (acute kidney injury): Plan: not quite to level of COLLIN, but elevated compared to baseline slightly Cr at baseline on repeat (10) Leg swelling: Plan: baseline swelling, likely from third spacing/low albumin 2.1 from his cirrhosis reports not as bad as it is at times, but reported calf tenderness bilaterally, hx upper arm DVT (in setting of line) check venous doppler for completeness, although not candidate for AC therapy --. NEGATIVE Diuretics w/ Lasix 20mg daily (Aldactone stopped many months ago per patient) Plan continued inpatient stay, hoping for d/c in AM. advance diet as tolerated GI Hepatology outpatient for eval for TIPS Admission and Anticipated Discharge Date Admission Date: February 07, 2022 Supervising Physician Co-Signing Physician Notes PA Supervision Note: I did not personally see or examine the patient today, but I verified all [place] points of SOFI Betancourt's assessment and plan with the following exceptions/additions: None Subjective eval this afternoon after EGD, resting in bed. Denies further abdominal pain, discussed EGD findings and will work with GI to arrange for outpatient follow up for consideration for TIPS. No further bloody bowel movements. Chronic anemia and gets injections monthly as outpatient. Based on EGD findings, discussed with patient to continue Protonix 20mg daily at d/c, ok by GI for 40mg daily while inpatient. Switched from IV Protonix to PO once daily to start tomorrow. Clear liquid diet ordered, advancing as tolerated. Avoidance of NSAIDs, he states Dr Martinez told him not to take any of those a while ago. He does have hx DVT in his left arm, did have an IV in that site. Does have LE edema, states can get worse than that at time, does have calf tenderness. Will check US for completeness. No fever/chills, chest pain. Does get occasional shortness of breath, worse with exertion but none currently at rest. No nausea/vomiting. Questions/concerns addressed at this time. Review of Systems Review of Systems: All systems reviewed & are unremarkable except as noted in HPI & below Physical Exam Physical Exam: General: chronically ill appearing male sitting up in bed resting after EGD, NAD, general pallor HEENT: head normocephalic, atraumatic, mmm, trachea midline Resp: CTAB, no w/c/r, diminished in bases, 96% on RA CV: RRR, no m/r/g, chronic LE edema (reported less than usual), pulses palpable, cap refill wnl GI: +BS, soft/NT : no negron MSK/Neuro: no focal deficit, no slurred speech/facial droop Psych: AOx3, cooperative Results & Data Results & Data ([facility]) Vital Signs (Past 12 Hours) Vital Signs Temp Pulse Pulse Pulse Resp BP BP 02/08/22 03:00 82 02/08/22 03:00 36.7 C 89 18 124/75 02/08/22 02:41 36.7 C 89 18 124/75 02/08/22 01:00 74 18 02/07/22 23:00 83 18 02/07/22 22:38 36.9 C 85 20 134/72 02/07/22 22:00 36.8 C 85 18 121/70 02/07/22 21:00 37.2 C 02/07/22 21:30 37.0 C 85 20 124/64 02/07/22 21:00 38.6 C H 90 18 125/75 02/07/22 20:30 37.2 C 86 22 115/71 02/07/22 20:15 37 C 86 20 127/75 BP Pulse Ox O2 Del Method 02/08/22 03:00 02/08/22 03:00 100 Room Air 02/08/22 02:41 100 Room Air 02/08/22 01:00 118/67 95 Room Air 02/07/22 23:00 129/70 96 Room Air 02/07/22 22:38 96 02/07/22 22:00 97 02/07/22 21:00 02/07/22 21:30 98 02/07/22 21:00 97 02/07/22 20:30 98 02/07/22 20:15 98 Laboratory Results 02/08/22 02/08/22 02/07/22 Range/Units 06:23 06:23 Unknown WBC 1.19 L (4.8-10.8) K/ul RBC 2.50 L (4.63-6.08) M/uL Hgb 8.0 L (14.0-18.0) g/dl Hct 24.4 L (40.1-51.0) % MCV 97.6 (80.0-100.0) fL MCH 32.0 (25.0-34.0) pg MCHC 32.8 (32.0-36.0) g/dL RDW Std Deviation 69.8 H (36.4-46.3) fL RDW Coeff of Miguel 19.6 H (11.5-14.5) % Plt Count 43 L (130-400) K/uL MPV 9.9 (9.4-12.4) fL Immature Gran % (Auto) % Neut % (Auto) % Lymph % (Auto) % Mcculloch % (Auto) % Eos % (Auto) % Baso % (Auto) % Neut # (Auto) (1.4-6.5) K/uL Lymph # (Auto) (1.2-3.4) K/uL Mcculloch # (Auto) (0.24-0.82) K/uL Eos # (Auto) (0-0.50) K/uL Baso # (Auto) (0-0.2) K/uL Immature Gran # (Auto) (0.00-0.02) K/uL Polychromasia Tear Drop Cells Ovalocytes PT (9.0-12.0) Seconds INR (0.9-1.1) APTT (21.0-31.0) Seconds PTT Ratio Sodium 137 136 (136-145) mmol/L Potassium 3.1 L 3.2 L (3.5-5.1) mmol/L Chloride 103 102 (98-107) mmol/L Carbon Dioxide 31 25 (21-32) mmol/L Anion Gap 3 9 (3-11) BUN 26 H 27 H (6-23) mg/dl Creatinine 1.92 H 2.13 H (0.6-1.4) mg/dl Est Cr Clr Drug Dosing 49.2 44.3 ml/min Est GFR ( Amer) 40.8 36.0 ml/min Est GFR (Non-Af Amer) 35.2 31.1 ml/min BUN/Creatinine Ratio 13.5 12.7 (10-20) Glucose 119 H 214 H (70-99(Fasting)) mg/dl Calcium 8.0 L 8.0 L (8.5-10.1) mg/dl Magnesium 2.0 (1.7-2.4) mg/dl Total Bilirubin 1.5 H 1.6 H (0.2-1.0) mg/dl AST 50 H 58 H (13-39) U/L ALT 19 21 (7-52) U/L Alkaline Phosphatase 89 99 (34-104) U/L Troponin I High Sens 11.8 (0-20) pg/ml Total Protein 5.3 L 5.6 L (6.0-8.3) gm/dl Albumin 2.1 L 2.2 L (3.4-5.0) gm/dl Globulin 3.2 3.4 (2.5-4.0) gm/dl Albumin/Globulin Ratio 0.7 L 0.6 L (0.9-2) POC Stool Occult Blood (Negative) SARS-CoV-2, RNA, NAAT (NEGATIVE) Blood Type Antibody Screen Crossmatch 02/07/22 02/07/22 02/07/22 Range/Units Unknown Unknown 21:19 WBC 1.46 L (4.8-10.8) K/ul RBC 2.30 L (4.63-6.08) M/uL Hgb 7.5 L (14.0-18.0) g/dl Hct 23.5 L (40.1-51.0) % MCV 102.2 H (80.0-100.0) fL MCH 32.6 (25.0-34.0) pg MCHC 31.9 L (32.0-36.0) g/dL RDW Std Deviation 63.3 H (36.4-46.3) fL RDW Coeff of Miguel 16.9 H (11.5-14.5) % Plt Count 57 L (130-400) K/uL MPV 11.4 (9.4-12.4) fL Immature Gran % (Auto) 0.7 % Neut % (Auto) 34.9 % Lymph % (Auto) 22.6 % Mcculloch % (Auto) 32.9 % Eos % (Auto) 7.5 % Baso % (Auto) 1.4 % Neut # (Auto) 0.51 L* (1.4-6.5) K/uL Lymph # (Auto) 0.33 L (1.2-3.4) K/uL Mcculloch # (Auto) 0.48 (0.24-0.82) K/uL Eos # (Auto) 0.11 (0-0.50) K/uL Baso # (Auto) 0.02 (0-0.2) K/uL Immature Gran # (Auto) 0.01 (0.00-0.02) K/uL Polychromasia 1+ Tear Drop Cells 1+ Ovalocytes 1+ PT 14.9 H (9.0-12.0) Seconds INR 1.4 H (0.9-1.1) APTT 34.5 H (21.0-31.0) Seconds PTT Ratio 1.3 Sodium (136-145) mmol/L Potassium (3.5-5.1) mmol/L Chloride (98-107) mmol/L Carbon Dioxide (21-32) mmol/L Anion Gap (3-11) BUN (6-23) mg/dl Creatinine (0.6-1.4) mg/dl Est Cr Clr Drug Dosing ml/min Est GFR ( Amer) ml/min Est GFR (Non-Af Amer) ml/min BUN/Creatinine Ratio (10-20) Glucose (70-99(Fasting)) mg/dl Calcium (8.5-10.1) mg/dl Magnesium (1.7-2.4) mg/dl Total Bilirubin (0.2-1.0) mg/dl AST (13-39) U/L ALT (7-52) U/L Alkaline Phosphatase (34-104) U/L Troponin I High Sens (0-20) pg/ml Total Protein (6.0-8.3) gm/dl Albumin (3.4-5.0) gm/dl Globulin (2.5-4.0) gm/dl Albumin/Globulin Ratio (0.9-2) POC Stool Occult Blood (Negative) SARS-CoV-2, RNA, NAAT NEGATIVE (NEGATIVE) Blood Type Antibody Screen Crossmatch 02/07/22 02/07/22 Range/Units 18:33 17:27 WBC (4.8-10.8) K/ul RBC (4.63-6.08) M/uL Hgb (14.0-18.0) g/dl Hct (40.1-51.0) % MCV (80.0-100.0) fL MCH (25.0-34.0) pg MCHC (32.0-36.0) g/dL RDW Std Deviation (36.4-46.3) fL RDW Coeff of Miguel (11.5-14.5) % Plt Count (130-400) K/uL MPV (9.4-12.4) fL Immature Gran % (Auto) % Neut % (Auto) % Lymph % (Auto) % M[place]ulloch % (Auto) % Eos % (Auto) % Baso % (Auto) % Neut # (Auto) (1.4-6.5) K/uL Lymph # (Auto) (1.2-3.4) K/uL [place]ulloch # (Auto) (0.24-0.82) K/uL Eos # (Auto) (0-0.50) K/uL Baso # (Auto) (0-0.2) K/uL Immature Gran # (Auto) (0.00-0.02) K/uL Polychromasia Tear Drop Cells Ovalocytes PT (9.0-12.0) Seconds INR (0.9-1.1) APTT (21.0-31.0) Seconds PTT Ratio Sodium (136-145) mmol/L Potassium (3.5-5.1) mmol/L Chloride (98-107) mmol/L Carbon Dioxide (21-32) mmol/L Anion Gap (3-11) BUN (6-23) mg/dl Creatinine (0.6-1.4) mg/dl Est Cr Clr Drug Dosing ml/min Est GFR ( Amer) ml/min Est GFR (Non-Af Amer) ml/min BUN/Creatinine Ratio (10-20) Glucose (70-99(Fasting)) mg/dl Calcium (8.5-10.1) mg/dl Magnesium (1.7-2.4) mg/dl Total Bilirubin (0.2-1.0) mg/dl AST (13-39) U/L ALT (7-52) U/L Alkaline Phosphatase (34-104) U/L Troponin I High Sens (0-20) pg/ml Total Protein (6.0-8.3) gm/dl Albumin (3.4-5.0) gm/dl Globulin (2.5-4.0) gm/dl Albumin/Globulin Ratio (0.9-2) POC Stool Occult Blood Positive A (Negative) SARS-CoV-2, RNA, NAAT (NEGATIVE) Blood Type O Positive Antibody Screen NEGATIVE Crossmatch See Detail Diagnostic Findings Abdomen/Pelvis CT 02/07/22 19:[address] WITHOUT CONTRAST CT DOSE: 1876.31 mGy.cm HISTORY: Rectal bleeding. Generalized abdominal pain. TECHNIQUE: Multiaxial CT images of the abdomen and pelvis were performed without contrast. A dose lowering technique was utilized adhering to the principles of ALARA. COMPARISON STUDY: Abdomen and pelvis CT 11/26/2021. FINDINGS: The lung bases are clear. No pneumoperitoneum. No pneumatosis. No fractures within the visualized osseous structures. Decreased attenuation within the blood pool consistent with an anemia. This remains unchanged. Cholecystectomy. Cirrhotic liver with splenomegaly again noted. A small amount of ascites has developed in the interval. The unenhanced pancreas and adrenal glands are unremarkable. There are are a few punctate bilateral renal calculi. No ureteral calculi. No hydronephrosis. The main portal vein remains small in caliber and demonstrates a linear focus of calcification. This may represent chronic thrombus. Splenorenal varicosities again noted. Moderate diffuse gastric wall thickening with adjacent fat stranding. This is consistent with a nonspecific gastritis. No retroperitoneal lymphadenopathy. Normal caliber abdominal aorta. The bladder is unremarkable. No dilated loops of bowel to suggest an obstruction. Mild wall thickening of the proximal colon again noted suggestive of the portal colopathy. IMPRESSION: 1. Cirrhosis with stigmata of portal hypertension including splenomegaly, abdominal varicosities, and a small amount of ascites which has progressed in the interval. 2. Moderate gastric wall thickening with adjacent fat stranding consistent with a nonspecific gastritis. 3. Mild thickening within the proximal colon remains unchanged and favors a portal colopathy. 4. Bilateral nephrolithiasis. No hydronephrosis. 5. Additional findings as described above. ACT 112: Negative or not required by law. Electronically signed by: Joaquín Bolden M.D. 02/07/2022 8:33 PM Venous Doppler Study 02/08/22 13:15 ULTRASOUND BILATERAL LOWER EXTREMITY VENOUS CLINICAL HISTORY: Lower extremity edema. COMPARISON STUDY: Bilateral lower extremity venous ultrasound dated 11/07/2018 TECHNIQUE: Real-time, grayscale, and color Doppler sonography of the deep veins of the right and left lower extremity was performed from the inguinal crease to the calf. Compression and augmentation were utilized. FINDINGS: There is no sonographic evidence of deep venous thrombosis identified in the right or left lower extremity. The common femoral, superficial femoral, and popliteal veins are patent and normally compressible bilaterally. The greater saphenous vein and the profunda femoris vein at the junction with the common femoral vein are clear in both legs. The visualized calf veins are patent bilaterally. IMPRESSION: There is no sonographic evidence of deep venous thrombosis identified in the right or left lower extremity. ACT 112: Negative or not required by law. Electronically signed by: Edward Foreman M.D. 02/08/2022 4:18 PM PG Care Time/CCT Total # of Minutes Spent Total Time Spent with Patient: Total time spent is greater than 50% in coordination of care (as documented) at patient's floor/unit and/or counseling patient: Coding Level of Care Code 85349 Subseq Hosp Care Lvl 3 Diagnoses Anemia D64.9 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 K75.81; K74.60 PSVT (paroxysmal supraventricular tachycardia) I47.1 CKD (chronic kidney disease), stage III N18.3 Psoriasis with arthropathy L40.50 Depression F32.A Symptomatic anemia D64.9 Acute blood loss anemia D62 COLLIN (acute kidney injury) N17.9 Leg swelling M79.89
[2022-02-08] MEDS: LACTULOSE SYRUP 20 GM/30 ML UDC PO SCH ×2 (08:11→21:53)
[2022-02-08] MEDS: MIDODRINE HCL 2.5 MG TAB PO SCH ×3 (08:12→21:52)
[2022-02-08] MEDS: FUROSEMIDE 20 MG TAB PO SCH (08:12)
[2022-02-08] MEDS: SPIRONOLACTONE 25 MG TAB PO SCH ×2 (08:12→09:14)
[2022-02-08] MEDS: rifAXIMin 550 MG TABLET PO SCH ×3 (08:13→21:52)
--- NOTE | 2022-02-08 08:57 | Gastrointestinal Consultation ---
Date of Consultation February 08, 2022 Assessment & Plan (1) Symptomatic anemia: 66 year old male w/ SERRANO cirrhosis, with repeated admission for anemia, GIB, severe PHG w/ oozing, PHTN, now admitted w/ melena (at least 3 episodes yesterday) - NPO for EGD evaluation - Would recommend IV PPI BID x 48 hours - Trend HGB, transfuse PRN - Continue carvedilol and PPI for h/o UGIB, severe PHG w/ oozing - Monitor and document GI output - Would continue Lactulose as ordered - Would continue Xifaxan as ordered - F/u with GI/hepatology as OP for his cirrhosis - Trend kidney function, if elevated, evaluate for HRS and nephrology consultation Thank you for allowing us to participate in the care of this patient. Please call with any acute changes, questions or concerns. Please see addendum below with additional recommendation from my supervising physician. Supervising Physician Co-Signing Physician Notes I saw and evaluated the patient. We were asked to evaluate him with a history of intermittent dark stool in the past. The patient does have a history of liver disease and portal gastropathy. The patient denies having coffee-ground emesis hematemesis or bright red blood per rectum. Did have a prior upper endoscopy performed earlier this year which showed severe portal gastropathy. Physical examination No obvious distress no scleral icterus and no abdominal tenderness Impression patient with a history of portal gastropathy, this is likely the cause of his intermittent dark stool" we can certainly do an upper endoscopy to look for more worrisome pathology such as esophageal varices. Given the patient's stable hemoglobin and hematocrit he likely has chronic blood losses and not likely need an endoscopic intervention today. We discussed risks and benefits of upper endoscopy to include bleeding infection perforation pain. I would recommend further evaluation by nephrology given the patient's worsening renal function. History of Present Illness Reason for Consultation: melena Requesting Physician: Magalis Attending Physician: Alexus Blancas MD History of Present Illness 66 year old male w/ history of liver 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, and severe portal hypertensive gastropathy causing GI bleed history, ascites, SCC, HTN, GERD, psoriatic arthritis, spinal stenosis, CKD, and others with recent EGD x 2 (April and May 2021) with severe PHG with oozing admitted w/ melena and BRBPR. GI asked to evaluate. pt was seen, chart reviewed. Suggests yesterday he felt bloated, followed by large volume BM which was dark and tarry. Suggests he had 1-2 additional BMs which were dark/tarry followed by BRB with clots. Notes that his last BM occurred last evening and no furter movements this AM. Some persistent bloating. No nausea, vomiting. Denies any coffee ground emesis or hematemesis prior to these episodes. CTAP 2021: . Cirrhosis with stigmata of portal hypertension including splenomegaly, abdominal varicosities, and a small amount of ascites which has progressed in the interval.. Moderate gastric wall thickening with adjacent fat stranding consistent with a nonspecific gastritis. Mild thickening within the proximal colon remains unchanged and favors a portal colopathy.Bilateral nephrolithiasis. No hydronephrosis.. Additional findings as described above. EGD 05/2021: - Normal esophagus. - Regular Z-line. - Mild portal hypertensive gastropathy in the proximal body of the stomach - Antral portal hypertensive gastropathy - severe. - Normal duodenal bulb and second portion of the duodenum. Colon 08/2021: Two 4 to 7 mm polyps in the descending colon, removed with a cold snare. Resected and retrieved. - The distal rectum and anal verge are normal on retroflexion view. Allergies Allergy/AdvReac Type Severity Reaction Status Date / Time tamsulosin Allergy Intermediate HIVES Verified 02/07/22 20:25 etanercept [From Enbrel] AdvReac Intermediate Increased Verified 02/07/22 20:25 infections Home Medications Medication Instructions Recorded Confirmed Type betamethasone dipropionate 0.05 % 1 applic topical DIRECTED PRN 05/10/21 02/07/22 History topical ointment Skin Irritation cholecalciferol (vitamin D3) 50 50 mcg PO QAM #90 caps 05/15/21 02/07/22 Rx mcg (2,000 unit) capsule lactulose 10 gram/15 mL oral 20 g (30 mL) PO BID #946 mL 09/19/21 02/07/22 Rx solution vitamin B complex 1 tab PO DAILY 10/23/21 02/07/22 History furosemide 20 mg tablet 20 mg PO DAILY #360 tabs 12/29/21 02/07/22 Rx adalimumab 40 mg/0.4 mL 40 mg (0.4 mL) subcut Q14D #2 ea 01/03/22 02/07/22 Rx subcutaneous pen kit (Humira(CF) Pen) spironolactone 50 mg tablet 50 mg PO QAM #90 tabs 01/04/22 02/07/22 Rx darbepoetin coretta in polysorbat 60 60 mcg (0.3 mL) subcut .COMPLEX #2 01/05/22 02/07/22 Rx mcg/0.3 mL in polysorbate SYRINGES injection syringe (Aranesp) midodrine 5 mg tablet 5 mg PO TID #90 tabs 01/05/22 02/07/22 Rx pantoprazole 40 mg tablet,delayed 40 mg PO BID #60 tabs 01/16/22 02/07/22 Rx release rifaximin 550 mg tablet (Xifaxan) 550 mg PO BID #60 tabs 01/16/22 02/07/22 Rx sertraline 50 mg tablet 50 mg PO HS 02/07/22 02/07/22 History Patient History Medical History Acute alteration in mental status Acute hepatic encephalopathy Anemia Ascites Cervical disc disease CKD (chronic kidney disease), stage III Depression GAVE (gastric antral vascular ectasia) GERD (gastroesophageal reflux disease) History of herniated intervertebral disc History of SCC (squamous cell carcinoma) of skin Hx of blood clots Hypertension Hypothyroidism 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 Lumbar disc disease Oral mucositis Portal hypertensive gastropathy Psoriasis Psoriatic arthritis PVT (portal vein thrombosis) Spinal stenosis TMJ arthralgia Urinary retention Urinary tract infection Wide-complex tachycardia Surgical History H/O foot surgery History of appendectomy History of arthroscopy History of cataract surgery History of cholecystectomy History of esophagogastroduodenoscopy (EGD) History of herniorrhaphy History of lithotripsy History of liver biopsy History of repair of rotator cuff History of tooth extraction History of urologic surgery Nausea and vomiting after administration of anesthetic agent S/P colonoscopy S/P epidural steroid injection S/P orchiectomy S/P urological surgery (2018) Suprapubic catheter Family History Grandmother (Maternal) Diabetes Father Renal cancer Mother Aortic aneurysm Denies family history of Ovarian cancer Prostate cancer Myocardial infarction Breast cancer Colorectal cancer Social History Smoking Status: Never smoker Second Hand Exposure: No; Do You Dip or Chew Tobacco: No; Hx Alcohol Use: No Hx Substance Use: No Preferred Language: Armenian Communication Ability: Effective Visual Impairment: No Limitations Hearing Ability: Hard of Hearing Comprehensive Ophthalmologist Required: No Beliefs That Will Affect Care: None marital status: / Current Living Situation: Family Current Living Situation Comment: Lives with son current occupational status: retired How many Children do You have: 1 Other Information That Helps Us Care for You: No Feels Safe at Home: Yes Safety Concerns: Feels Safe At This Time Diet Comment: regular caffeine: Yes during the past year weight has: decreased > 10 lbs Dental Care, Regularly: No Physical Activity Frequency: Other Physical Activity Frequency Comment: does all housework/outside work and cuts wood Seatbelt Use: never Sunscreen Use: No Assistive Devices: Cane, Glasses and Walker Review of Systems Review of Systems: All systems reviewed & are unremarkable except as noted in HPI & below Physical Exam Constitutional: WD/WN, vitals as above Neck: trachea midline, no thyromegaly Respiratory: normal respiratory effort, lungs clear to auscultation Cardiovascular: RRR, no murmur, no edema Gastrointestinal (Abdomen): normal bowel sounds, soft, nontender, no hepatosplenomegaly Skin: no rashes, warm and dry Results & Data ([facility]) Vital Signs (Past 12 Hours) Vital Signs Temp Pulse Pulse Pulse Resp BP BP 02/08/22 07:56 36.7 C 72 19 90/51 L 02/08/22 03:00 82 02/08/22 03:00 36.7 C 89 18 124/75 02/08/22 02:41 36.7 C 89 18 124/75 02/08/22 01:00 74 18 02/07/22 23:00 83 18 02/07/22 22:38 36.9 C 85 20 134/72 02/07/22 22:00 36.8 C 85 18 121/70 02/07/22 21:00 37.2 C 02/07/22 21:30 37.0 C 85 20 124/64 12/14/22 21:00 38.6 C H 90 18 125/75 BP Pulse Ox O2 Del Method 02/08/22 07:56 96 Room Air 02/08/22 03:00 02/08/22 03:00 100 Room Air 02/08/22 02:41 100 Room Air 02/08/22 01:00 118/67 95 Room Air 02/07/22 23:00 129/70 96 Room Air 02/07/22 22:38 96 02/07/22 22:00 97 02/07/22 21:00 02/07/22 21:30 98 02/07/22 21:00 97 Laboratory Results 02/08/22 02/08/22 02/07/22 Range/Units 06:23 06:23 Unknown WBC 1.19 L (4.8-10.8) K/ul RBC 2.50 L (4.63-6.08) M/uL Hgb 8.0 L (14.0-18.0) g/dl Hct 24.4 L (40.1-51.0) % MCV 97.6 (80.0-100.0) fL MCH 32.0 (25.0-34.0) pg MCHC 32.8 (32.0-36.0) g/dL RDW Std Deviation 69.8 H (36.4-46.3) fL RDW Coeff of Miguel 19.6 H (11.5-14.5) % Plt Count 43 L (130-400) K/uL MPV 9.9 (9.4-12.4) fL Immature Gran % (Auto) % Neut % (Auto) % Lymph % (Auto) % Hawkins % (Auto) % Eos % (Auto) % Baso % (Auto) % Neut # (Auto) (1.4-6.5) K/uL Lymph # (Auto) (1.2-3.4) K/uL Hawkins # (Auto) (0.24-0.82) K/uL Eos # (Auto) (0-0.50) K/uL Baso # (Auto) (0-0.2) K/uL Immature Gran # (Auto) (0.00-0.02) K/uL Polychromasia Tear Drop Cells Ovalocytes PT (9.0-12.0) Seconds INR (0.9-1.1) APTT (21.0-31.0) Seconds PTT Ratio Sodium 137 136 (136-145) mmol/L Potassium 3.1 L 3.2 L (3.5-5.1) mmol/L Chloride 103 102 (98-107) mmol/L Carbon Dioxide 31 25 (21-32) mmol/L Anion Gap 3 9 (3-11) BUN 26 H 27 H (6-23) mg/dl Creatinine 1.92 H 2.13 H (0.6-1.4) mg/dl Est Cr Clr Drug Dosing 49.2 44.3 ml/min Est GFR ( Amer) 40.8 36.0 ml/min Est GFR (Non-Af Amer) 35.2 31.1 ml/min BUN/Creatinine Ratio 13.5 12.7 (10-20) Glucose 119 H 214 H (70-99(Fasting)) mg/dl Calcium 8.0 L 8.0 L (8.5-10.1) mg/dl Magnesium 2.0 (1.7-2.4) mg/dl Total Bilirubin 1.5 H 1.6 H (0.2-1.0) mg/dl AST 50 H 58 H (13-39) U/L ALT 19 21 (7-52) U/L Alkaline Phosphatase 89 99 (34-104) U/L Troponin I High Sens 11.8 (0-20) pg/ml Total Protein 5.3 L 5.6 L (6.0-8.3) gm/dl Albumin 2.1 L 2.2 L (3.4-5.0) gm/dl Globulin 3.2 3.4 (2.5-4.0) gm/dl Albumin/Globulin Ratio 0.7 L 0.6 L (0.9-2) POC Stool Occult Blood (Negative) SARS-CoV-2, RNA, NAAT (NEGATIVE) Blood Type Antibody Screen Crossmatch 02/07/22 02/07/22 02/07/22 Range/Units Unknown Unknown 21:19 WBC 1.46 L (4.8-10.8) K/ul RBC 2.30 L (4.63-6.08) M/uL Hgb 7.5 L (14.0-18.0) g/dl Hct 23.5 L (40.1-51.0) % MCV 102.2 H (80.0-100.0) fL MCH 32.6 (25.0-34.0) pg MCHC 31.9 L (32.0-36.0) g/dL RDW Std Deviation 63.3 H (36.4-46.3) fL RDW Coeff of Miguel 16.9 H (11.5-14.5) % Plt Count 57 L (130-400) K/uL MPV 11.4 (9.4-12.4) fL Immature Gran % (Auto) 0.7 % Neut % (Auto) 34.9 % Lymph % (Auto) 22.6 % Hawkins % (Auto) 32.9 % Eos % (Auto) 7.5 % Baso % (Auto) 1.4 % Neut # (Auto) 0.51 L* (1.4-6.5) K/uL Lymph # (Auto) 0.33 L (1.2-3.4) K/uL Hawkins # (Auto) 0.48 (0.24-0.82) K/uL Eos # (Auto) 0.11 (0-0.50) K/uL Baso # (Auto) 0.02 (0-0.2) K/uL Immature Gran # (Auto) 0.01 (0.00-0.02) K/uL Polychromasia 1+ Tear Drop Cells 1+ Ovalocytes 1+ PT 14.9 H (9.0-12.0) Seconds INR 1.4 H (0.9-1.1) APTT 34.5 H (21.0-31.0) Seconds PTT Ratio 1.3 Sodium (136-145) mmol/L Potassium (3.5-5.1) mmol/L Chloride (98-107) mmol/L Carbon Dioxide (21-32) mmol/L Anion Gap (3-11) BUN (6-23) mg/dl Creatinine (0.6-1.4) mg/dl Est Cr Clr Drug Dosing ml/min Est GFR ( Amer) ml/min Est GFR (Non-Af Amer) ml/min BUN/Creatinine Ratio (10-20) Glucose (70-99(Fasting)) mg/dl Calcium (8.5-10.1) mg/dl Magnesium (1.7-2.4) mg/dl Total Bilirubin (0.2-1.0) mg/dl AST (13-39) U/L ALT (7-52) U/L Alkaline Phosphatase (34-104) U/L Troponin I High Sens (0-20) pg/ml Total Protein (6.0-8.3) gm/dl Albumin (3.4-5.0) gm/dl Globulin (2.5-4.0) gm/dl Albumin/Globulin Ratio (0.9-2) POC Stool Occult Blood (Negative) SARS-CoV-2, RNA, NAAT NEGATIVE (NEGATIVE) Blood Type Antibody Screen Crossmatch 02/07/22 02/07/22 Range/Units 18:33 17:27 WBC (4.8-10.8) K/ul RBC (4.63-6.08) M/uL Hgb (14.0-18.0) g/dl Hct (40.1-51.0) % MCV (80.0-100.0) fL MCH (25.0-34.0) pg MCHC (32.0-36.0) g/dL RDW Std Deviation (36.4-46.3) fL RDW Coeff of Miguel (11.5-14.5) % Plt Count (130-400) K/uL MPV (9.4-12.4) fL Immature Gran % (Auto) % Neut % (Auto) % Lymph % (Auto) % Hawkins % (Auto) % Eos % (Auto) % Baso % (Auto) % Neut # (Auto) (1.4-6.5) K/uL Lymph # (Auto) (1.2-3.4) K/uL Hawkins # (Auto) (0.24-0.82) K/uL Eos # (Auto) (0-0.50) K/uL Baso # (Auto) (0-0.2) K/uL Immature Gran # (Auto) (0.00-0.02) K/uL Polychromasia Tear Drop Cells Ovalocytes PT (9.0-12.0) Seconds INR (0.9-1.1) APTT (21.0-31.0) Seconds PTT Ratio Sodium (136-145) mmol/L Potassium (3.5-5.1) mmol/L Chloride (98-107) mmol/L Carbon Dioxide (21-32) mmol/L Anion Gap (3-11) BUN (6-23) mg/dl Creatinine (0.6-1.4) mg/dl Est Cr Clr Drug Dosing ml/min Est GFR ( Amer) ml/min Est GFR (Non-Af Amer) ml/min BUN/Creatinine Ratio (10-20) Glucose (70-99(Fasting)) mg/dl Calcium (8.5-10.1) mg/dl Magnesium (1.7-2.4) mg/dl Total Bilirubin (0.2-1.0) mg/dl AST (13-39) U/L ALT (7-52) U/L Alkaline Phosphatase (34-104) U/L Troponin I High Sens (0-20) pg/ml Total Protein (6.0-8.3) gm/dl Albumin (3.4-5.0) gm/dl Globulin (2.5-4.0) gm/dl Albumin/Globulin Ratio (0.9-2) POC Stool Occult Blood Positive A (Negative) SARS-CoV-2, RNA, NAAT (NEGATIVE) Blood Type O Positive Antibody Screen NEGATIVE Crossmatch See Detail
[2022-02-08] MEDS ORDERED: PANTOprazole 40 MG in SYRINGE 0 ML IV SCH (09:00)
--- NOTE | 2022-02-08 10:04 | Anesthesiology Consultation ---
Date of Service February 08, 2022 Assessment & Plan Chart Review Chart Review: Acceptable Risk for Surgery and Patient NOT seen in Pre Admission Testing Consults Requested none ASA ASA4 Proposed Anesthesia Anesthesia Type: MAC Risk / Benefits Reviewed With: PT / POA / Parent / Guardian, Accepts Plan and Informed Consent Obtained History Surgery Operation Date: 02/08/22 16:45 Proposed Procedures p Esophagogastroduodenoscopy Dr Pedro Luis Cloud, DO Height/Weight Height: 5 ft 9 in Weight: 126.7 kg Allergies Allergy/AdvReac Type Severity Reaction Status Date / Time tamsulosin Allergy Intermediate HIVES Verified 02/07/22 20:25 etanercept [From Enbrel] AdvReac Intermediate Increased Verified 02/07/22 20:25 infections Medications Home Medications Medication Instructions Recorded Confirmed Last Taken betamethasone dipropionate 0.05 % 1 applic topical DIRECTED PRN 05/10/21 02/07/22 Unknown topical ointment Skin Irritation cholecalciferol (vitamin D3) 50 50 mcg PO QAM #90 caps 05/15/21 02/07/22 02/07/22 mcg (2,000 unit) capsule lactulose 10 gram/15 mL oral 20 g (30 mL) PO BID #946 mL 09/19/21 02/07/22 Unknown solution vitamin B complex 1 tab PO DAILY 10/23/21 02/07/22 02/07/22 furosemide 20 mg tablet 20 mg PO DAILY #360 tabs 12/29/21 02/07/22 02/07/22 adalimumab 40 mg/0.4 mL 40 mg (0.4 mL) subcut Q14D #2 ea 01/03/22 02/07/22 01/24/22 subcutaneous pen kit (Humira(CF) Pen) spironolactone 50 mg tablet 50 mg PO QAM #90 tabs 01/04/22 02/07/22 02/07/22 darbepoetin coretta in polysorbat 60 60 mcg (0.3 mL) subcut .COMPLEX #2 01/05/22 02/07/22 Unknown mcg/0.3 mL in polysorbate SYRINGES injection syringe (Aranesp) midodrine 5 mg tablet 5 mg PO TID #90 tabs 01/05/22 02/07/22 02/07/22 14:00 pantoprazole 40 mg tablet,delayed 40 mg PO BID #60 tabs 01/16/22 02/07/22 08:00 release rifaximin 550 mg tablet (Xifaxan) 550 mg PO BID #60 tabs 01/16/22 02/07/22 02/07/22 08:00 sertraline 50 mg tablet 50 mg PO HS 02/07/22 02/07/22 02/06/22 Active Medications Generic Name Dose Route Start Last Admin Trade Name Freq PRN Reason Stop Dose Admin Furosemide 20 mg 02/08/22 09:00 02/08/22 08:12 Furosemide 20 Mg Tab PO 03/10/22 08:59 20 mg DAILY LUZ Administration Pantoprazole Sodium 40 mg/ 10 mls @ 5 mls/min 02/08/22 09:00 02/08/22 08:40 Syringe IV 03/10/22 08:59 5 mls/min BID LUZ Administration Lactulose 20 gm 02/08/22 09:00 02/08/22 08:11 Lactulose Syrup 20 Gm/30 Ml Udc PO 03/10/22 08:59 20 gm BID LUZ Administration Midodrine 5 mg 02/08/22 09:00 02/08/22 08:12 Midodrine Hcl 2.5 Mg Tab PO 03/10/22 08:59 5 mg TID LUZ Administration Ondansetron HCl 4 mg 02/08/22 01:46 02/08/22 08:40 Ondansetron Inj 2 Mg/Ml 2 Ml Vial IV 03/10/22 01:45 4 mg Q6H PRN Administration Nausea Potassium Chloride 20 meq 02/08/22 02:00 02/08/22 08:40 Potassium Chloride Crtab 20 Meq Tabcr PO 02/08/22 21:01 20 meq BID LUZ Administration Rifaximin 550 mg 02/08/22 09:00 02/08/22 08:42 Rifaximin 550 Mg Tablet PO 03/10/22 08:59 Not Given BID LUZ Spironolactone 50 mg 02/08/22 09:00 02/08/22 09:14 Spironolactone 25 Mg Tab PO 03/10/22 08:59 Not Given QAM LUZ NPO Date Last Intake of Fluids: 02/08/22 Time Last Intake of Fluids: 08:00 Last Intake of Fluids Comment: sip with meds Date Last Intake of Solids: 02/07/22 Time Last Intake of Solids: 12:00 Past Medical History Medical History Acute alteration in mental status Acute hepatic encephalopathy Anemia Ascites Cervical disc disease CKD (chronic kidney disease), stage III Depression GAVE (gastric antral vascular ectasia) GERD (gastroesophageal reflux disease) History of herniated intervertebral disc History of SCC (squamous cell carcinoma) of skin Hx of blood clots Hypertension Hypothyroidism 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 Lumbar disc disease Oral mucositis Portal hypertensive gastropathy Psoriasis Psoriatic arthritis PVT (portal vein thrombosis) Spinal stenosis TMJ arthralgia Urinary retention Urinary tract infection Wide-complex tachycardia Exercise / Class Metabolic Activity II 4-5 Yardwork/Stairs/Walk up hill Past Family History Family History Grandmother (Maternal) Diabetes Father Renal cancer Mother Aortic aneurysm Denies family history of Ovarian cancer Prostate cancer Myocardial infarction Breast cancer Colorectal cancer Past Surgical History Surgical History H/O foot surgery History of appendectomy History of arthroscopy History of cataract surgery History of cholecystectomy History of esophagogastroduodenoscopy (EGD) History of herniorrhaphy History of lithotripsy History of liver biopsy History of repair of rotator cuff History of tooth extraction History of urologic surgery Nausea and vomiting after administration of anesthetic agent S/P colonoscopy S/P epidural steroid injection S/P orchiectomy S/P urological surgery (2018) Suprapubic catheter Past Anesthesia History No Hx of Anesthesia Complications and No Family Hx of Anesthesia Complications History of PONV No Hx of PONV and No Hx of Motion Sickness Social History Smoking Status: Never smoker Do You Dip or Chew Tobacco: No Hx Alcohol Use: No Hx Substance Use: No substance use type: does not use Physical Exam Vital Signs Last Vital Signs Temp 36.2 C L 02/08/22 09:48 Pulse 82 02/08/22 09:48 Resp 16 02/08/22 09:48 BP 122/54 L 02/08/22 09:48 Pulse Ox 97 02/08/22 09:48 O2 Del Method 02/08/22 09:48 Constitutional + morbidly obese ENMT Mouth: no dentition abnormality Thyromental Distance: > or= 3.5 Finger Breadths Mallampati Class: II Neck normal visual inspection Respiratory normal respiratory effort Auscultation: lungs clear to auscultation bilaterally Cardiovascular Rate/Rhythm: regular rate and regular rhythm Psychiatric Orientation: alert Testing Laboratory Results 02/08/22 06:23 02/08/22 06:23 PT 14.9 Seconds (9.0-12.0) H 02/07/22 Unknown INR 1.4 (0.9-1.1) H 02/07/22 Unknown APTT 34.5 Seconds (21.0-31.0) H 02/07/22 Unknown Blood Type O Positive 02/07/22 18:33 Antibody Screen NEGATIVE 02/07/22 18:33
--- NOTE | 2022-02-08 10:16 | Communication Note ---
Date of Service: February 08, 2022 The patient underwent this morning. We found diffuse portal hypertensive gastropathy which is the likely cause of his chronic blood loss anemia. Unfor tunately we have hospital followed by his hepatology provider as an outpatient to determine if a referral for TIPS would be of benefit to him. Recommendations Advance diet as tolerated consider addition of Carafate 1 g twice daily Consider stopping the patient's SSRI Avoid use of nonsteroidals
--- NOTE | 2022-02-08 10:20 | GI REPORT ---
Patient Name: Sebastian Quiñonez Procedure Date: 02/08/2022 10:04 AM Date of : 1955 Admit Type: Inpatient Age: 66 Gender: Male Attending MD: Sara Cloud DO, Procedure: Upper GI endoscopy Providers: Sara Cloud DO Referring MD: Alexus Blancas Md Indications: Iron deficiency anemia secondary to chronic blood loss Medicines: Monitored Anesthesia Care Complications: No immediate complications. Estimated blood loss: Minimal. Estimated Blood Loss: Estimated blood loss was minimal. Procedure: Pre-Anesthesia Assessment: - Prior to the procedure, a History and Physical was performed, and patient medications, allergies and sensitivities were reviewed. The patient's tolerance of previous anesthesia was reviewed. - The risks and benefits of the procedure and the sedation options and risks were discussed with the patient. All questions were answered and informed consent was obtained. - Patient identification and proposed procedure were verified prior to the procedure by the physician, the nurse and the mental health case manager. The procedure was verified in the procedure room. - Pre-procedure physical examination revealed no contraindications to sedation. - ASA Grade Assessment: IV - A patient with severe systemic disease that is a constant threat to life. - After reviewing the risks and benefits, the patient was deemed in satisfactory condition to undergo the procedure. - The anesthesia plan was to use monitored anesthesia care (MAC). - Immediately prior to administration of medications, the patient was re-assessed for adequacy to receive sedatives. - The heart rate, respiratory rate, oxygen saturations, blood pressure, adequacy of pulmonary ventilation, and response to care were monitored throughout the procedure. - The physical status of the patient was re-assessed after the procedure. After obtaining informed consent, the endoscope was passed under direct vision. Throughout the procedure, the patient's blood pressure, pulse, and oxygen saturations were monitored continuously. The Endoscope was introduced through the mouth, and advanced to the third part of duodenum. The upper GI endoscopy was accomplished without difficulty. The patient tolerated the procedure well. Findings: Three columns of grade I varices with no bleeding and no stigmata of recent bleeding were found in the lower third of the esophagus, 30 to 35 cm from the incisors. They were 4 mm in largest diameter. No red cyril signs were present. Severe portal hypertensive gastropathy was found in the entire examined stomach. There is a diffuse nature of the stomach, no focal area was identified that could be treated with APC The examined duodenum was normal. Impression: - Grade I esophageal varices with no bleeding and no stigmata of recent bleeding. - Portal hypertensive gastropathy. - Normal examined duodenum. - No specimens collected. Recommendation: - Return patient to hospital [facility] for ongoing care. - Use Protonix (pantoprazole) 20 mg PO daily. - Use sucralfate tablets 1 gram PO BID. - Consider stopping the SSRI - Repeat upper endoscopy in 1 year for surveillance. Sara Cloud D.O. Sara Cloud, DO 02/08/2022 10:20:03 AM This report has been signed electronically. Note Initiated On: 02/08/2022 10:04 AM Number of Addenda: 0 I attest to the content of the Intraoperative Record and orders documented therein, exceptions below {[id number]}
[2022-02-08] MEDS ORDERED: PROPOFOL IV EMULSION 10 MG/ML 20 ML VIAL IV ONE ×2 (10:23→11:14)
[2022-02-08] MEDS ORDERED: LIDOCAINE 2% MPF LOCAL 5 ML VIAL INFIL ONE (10:23)
[2022-02-08] MEDS ORDERED: PHENYLEPHRINE 100MCG/ML 5ML SYR ONE (11:14)
[2022-02-08] MEDS ORDERED: Nursing to Pharmacy Communication SCH (12:00)
--- NOTE | 2022-02-08 14:59 | Anesthesiology Progress Note ---
Date of Service February 08, 2022 Anesthesia Post Procedure Vital Signs Vital Signs: Temp Pulse Pulse Pulse Resp BP BP 02/08/22 12:54 02/08/22 11:45 36.7 C 90 19 114/65 02/08/22 10:46 75 16 145/85 H 02/08/22 10:34 76 16 144/79 H 02/08/22 10:19 92 H 15 122/78 02/08/22 10:05 75 02/08/22 09:48 36.2 C L 82 16 02/08/22 07:56 36.7 C 72 19 90/51 L 02/08/22 03:00 82 02/08/22 03:00 36.7 C 89 18 124/75 02/08/22 02:41 36.7 C 89 18 124/75 02/08/22 01:00 74 18 02/07/22 23:00 83 18 02/07/22 22:38 36.9 C 85 20 134/72 02/07/22 22:00 36.8 C 85 18 121/70 02/07/22 21:00 37.2 C 02/07/22 21:30 37.0 C 85 20 124/64 02/07/22 20:00 87 18 02/07/22 21:00 38.6 C H 90 18 125/75 02/07/22 20:30 37.2 C 86 22 115/71 02/07/22 20:15 37 C 86 20 127/75 02/07/22 20:00 37 C 88 20 121/71 02/07/22 19:50 37 C 83 18 137/76 02/07/22 17:27 02/07/22 17:24 36.9 C 102 H 20 132/74 BP Pulse Ox O2 Del Method 02/08/22 12:54 Room Air 02/08/22 11:45 97 Room Air 02/08/22 10:46 98 Room Air 02/08/22 10:34 96 Room Air 02/08/22 10:19 96 Room Air 02/08/22 10:05 02/08/22 09:48 122/54 L 97 Room Air 02/08/22 07:56 96 Room Air 02/08/22 03:00 02/08/22 03:00 100 Room Air 02/08/22 02:41 100 Room Air 02/08/22 01:00 118/67 95 Room Air 02/07/22 23:00 129/70 96 Room Air 02/07/22 22:38 96 02/07/22 22:00 97 02/07/22 21:00 02/07/22 21:30 98 02/07/22 20:00 121/71 98 Room Air 02/07/22 21:00 97 02/07/22 20:30 98 02/07/22 20:15 98 02/07/22 20:00 98 02/07/22 19:50 98 02/07/22 17:27 Room Air 02/07/22 17:24 100 Room Air Pain Intensity Abdomen: Pain Intensity: 4 Transfer of Care Handoff Completed per policy Notes Mental Status: alert / awake / arousable Patient Amnestic to Procedure: Yes Nausea / Vomiting: adequately controlled Pain: adequately controlled Airway Patency, RR, SpO2: stable & adequate BP & HR: stable & adequate Hydration State: stable & adequate Anesthetic Complications: no major complications apparent
--- NOTE | 2022-02-08 15:07 | Electrocardiogram Report ---
Test Reason : Blood Pressure : / mmHG Vent. Rate : 095 BPM Atrial Rate : 095 BPM P-R Int : 176 ms QRS Dur : 094 ms QT Int : 380 ms P-R-T Axes : 034 -23 018 degrees QTc Int : 477 ms Normal sinus rhythm Incomplete right bundle branch block Poor R wave progression, consider anterior [place] vs. lead placement vs. LVH Abnormal ECG When compared with ECG of 02-JAN-2022 17:06, Incomplete right bundle branch block is now Present Confirmed by Steven Cao ([id number]) on 02/08/2022 3:07:18 PM Referred By: REFERRED SELF Confirmed By:Steven Cao
--- NOTE | 2022-02-08 16:20 | Ultrasound Report ---
ULTRASOUND BILATERAL LOWER EXTREMITY VENOUS CLINICAL HISTORY: Lower extremity edema. COMPARISON STUDY: Bilateral lower extremity venous ultrasound dated 11/07/2018 TECHNIQUE: Real-time, grayscale, and color Doppler sonography of the deep veins of the right and left lower extremity was performed from the inguinal crease to the calf. Compression and augmentation wer e utilized. FINDINGS: There is no sonographic evidence of deep venous thrombosis identified in the right or left lower extremity. The common femoral, superficial femoral, and popliteal veins are patent and normally compressible bilaterally. The greater saphenous vein and the profunda femoris vein at the junction w ith the common femoral vein are clear in both legs. The visualized calf veins are patent bilaterally. IMPRESSION: There is no sonographic evidence of deep venous thrombosis identified in the right or lef t lower extremity. ACT 112: Negative or not required by law. Electronically signed by: Edward Foreman M.D. 02/08/2022 4:18 PM
[2022-02-08] MEDS ORDERED: SERTRALINE HCL 50 MG TABLET PO SCH (21:00)
[2022-02-08] MEDS: SUCRALFATE 1 GM/10 ML UDC PO SCH (21:52)
[2022-02-09] MEDS ORDERED: ACETAMINOPHEN 325 MG TAB PO PRN (02:42)
[2022-02-09 07:12] LABS: Hematocrit (blood only) 24.2 % (40.1-51.0); Hemoglobin 7.8 g/dl (14.0-18.0); Mean Platelet Volume 9.6 fL (9.4-12.4); Platelet Count 43 K/uL (130-400); White Blood Count 1.54 K/ul (4.8-10.8)
[2022-02-09 07:36] LABS: Mean Corpuscular Hemoglobin 31.5 pg (25.0-34.0); Mean Corpuscular Hgb Conc 32.2 g/dL (32.0-36.0); Mean Corpuscular Volume 97.6 fL (80.0-100.0); RDW Coefficient of Variation 19.7 % (11.5-14.5); Red Blood Count 2.48 M/uL (4.63-6.08)
[2022-02-09 07:45] LABS: Albumin Globulin Ratio 0.7 (0.9-2); BUN Creatinine Ratio 12.4 (10-20); Bilirubin,Total 1.2 mg/dl (0.2-1.0); Calcium 7.5 mg/dl (8.5-10.1); Creatinine Clr Calc Pharmacy 51.5 ml/min; Est GFR (African American) 42.7 ml/min; Est GFR (Non-African American) 36.9 ml/min; Globulin 2.9 gm/dl (2.5-4.0); Magnesium 1.8 mg/dl (1.7-2.4); Potassium 3.3 mmol/L (3.5-5.1); Total Protein 4.9 gm/dl (6.0-8.3)
[2022-02-09] MEDS: LACTULOSE SYRUP 20 GM/30 ML UDC PO SCH (07:45)
[2022-02-09] MEDS: SUCRALFATE 1 GM/10 ML UDC PO SCH (07:45)
[2022-02-09] MEDS: MIDODRINE HCL 2.5 MG TAB PO SCH ×2 (07:46→13:49)
[2022-02-09] MEDS: SPIRONOLACTONE 25 MG TAB PO SCH (07:46)
[2022-02-09] MEDS: rifAXIMin 550 MG TABLET PO SCH (07:46)
[2022-02-09] MEDS: FUROSEMIDE 20 MG TAB PO SCH (07:46)
[2022-02-09] MEDS ORDERED: POTASSIUM CHLORIDE CRTAB 20 MEQ TABCR PO STA ×2 (07:56→07:59)
--- NOTE | 2022-02-09 07:59 | Hospitalist Progress Note ---
Date of Service February 09, 2022 Assessment & Plan (1) Anemia: Plan: Pancytopenia 2nd to cirrhosis, but presented with melena/bright clots in bowel movements at home. Hx GAVE (admit April for ABLA due to GAVE, CAROLANN w/ clipping and APC completed, 3uPRBC) Follows with Hematology at [facility] on darbepoetin monthly and has received iron infusions in the past CTAP on admit: Cirrhosis with stigmata of portal hypertension including splenomegaly, abdominal varicosities, and a small amount of ascites which has progressed in the interval. Moderate gastric wall thickening with adjacent fat stranding consistent with a nonspecific gastritis. Mild thickening within the proximal colon remains unchanged and favors a portal colopathy. Given 1u PRBC on admission with a fever at that time (T38.6C) for hgb 7.5. Repeat hgb 8.0 on AM labs Blood cultures pending Placed on Zosyn IV in case fever from mucosal breach (d/c given EGD findings) Protonix bolus in ER, I ordered IV BID following GI on consult -- follows with [facility] GI s/p EGD this morning with grade I varices with no bleeding or stigmata of recent bleeding. - Severe portal HTN gastropathy was found in entire examined stomach. Diffuse nature of stomach, no focal area identified to be able to be treated with APC. - Recs for protonix 20mg daily at discharge (ok by GI for 40mg PO while inpatient), carafate 1gm BID. Stop SSRI (on zoloft 50mg daily). Avoid NSAIDs (patient does not take, Dr Martinez told him not to take many years ago) Ordered clear liquid diet --> advance as tolerated. Tolerated clears and to get AHA/low salt diet for dinner Discussed with GI LYNDON, arranging for hepatology follow up for consideration for TIPS as outpatient Monitoring overnight/no ride due to weather, if stable, planning for discharge tomorrow (2) 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: Plan: Patient on lactulose and xifaxan, ammonia last stay was normal, mental status is clear Outpatient hepatology f/u for TIPS eval as above, given portal gastropathy (3) PSVT (paroxysmal supraventricular tachycardia): Plan: Hx SVT, had been on carvedilol 6.125mg BID previously, held at d/c last admis edilberto in November for low BPs. PCP notes to take if SBP 120s. Follows with Dr Hartman, has event recorder, 11/16 showed brief episode SVT only lasting few beats w/ rate ventricular ectopy Had seen Dr Martinez December 21, had rec'd to cut patient lasix back to 20mg daily Has been SR in the 80s on monitor (4) CKD (chronic kidney disease), stage III: Plan: Follows with Dr Martinez, baseline Cr ~2 Continues on midodrine 5mg TID for BP support, lasix reduced to 20mg most recently. Has NOT been on spironolactone for several months per patient. Will adjust med rec Cr 2.13 on admit, 1u PRBC as above Cr 1.92 on AM labs Renal dose meds/avoid nephrotoxins as able (5) Psoriasis with arthropathy: Plan: Follows with Dr Catherine, also w/ hx bullous pemphigoid, on Humira [id number] Initially discussed with Dr Stephenson this morning given concerns for infection/Zosyn/mucosal breach, ok'd to hold as no flare/psoraisis and seen recently Given EGD as above, Zosyn discontinued Can continue Humira outpatient (6) Depression: Plan: Patient remains on sertraline -- discontinuing medication per GI recs/cirrhosis. Of note, patient on 25mg daily, med rec lists 25mg (7) Symptomatic anemia: Plan: as above, patient reports feeling improved (8) Acute blood loss anemia: (9) COLLIN (acute kidney injury): Plan: not quite to level of COLLIN, but elevated compared to baseline slightly Cr at baseline on repeat (10) Leg swelling: Plan: baseline swelling, likely from third spacing/low albumin 2.1 from his cirrhosis reports not as bad as it is at times, but reported calf tenderness bilaterally, hx upper arm DVT (in setting of line) check venous doppler for completeness, although not candidate for AC therapy --. NEGATIVE Diuretics w/ Lasix 20mg daily (Aldactone stopped many months ago per patient) Plan continued inpatient stay, hoping for d/c in AM. advance diet as tolerated GI Hepatology outpatient for eval for TIPS Admission and Anticipated Discharge Date Admission Date: February 07, 2022 Results & Data Results & Data ([facility]) Vital Signs (Past 12 Hours) Vital Signs Temp Pulse Pulse Resp BP Pulse Ox O2 Del Method 02/09/22 07:08 74 02/09/22 02:41 36.8 C 78 20 110/58 L 95 Room Air 02/08/22 23:26 77 02/08/22 22:47 36.8 C 80 18 104/64 95 Room Air 02/08/22 21:59 Room Air Laboratory Results 02/09/22 02/09/22 Range/Units 06:28 06:28 WBC 1.54 L (4.8-10.8) K/ul RBC 2.48 L (4.63-6.08) M/uL Hgb 7.8 L (14.0-18.0) g/dl Hct 24.2 L (40.1-51.0) % MCV 97.6 (80.0-100.0) fL MCH 31.5 (25.0-34.0) pg MCHC 32.2 (32.0-36.0) g/dL RDW Std Deviation 70.0 H (36.4-46.3) fL RDW Coeff of Miguel 19.7 H (11.5-14.5) % Plt Count 43 L (130-400) K/uL MPV 9.6 (9.4-12.4) fL Sodium 138 (136-145) mmol/L Potassium 3.3 L (3.5-5.1) mmol/L Chloride 106 (98-107) mmol/L Carbon Dioxide 29 (21-32) mmol/L Anion Gap 3 (3-11) BUN 23 (6-23) mg/dl Creatinine 1.85 H (0.6-1.4) mg/dl Est Cr Clr Drug Dosing 51.5 ml/min Est GFR ( Amer) 42.7 ml/min Est GFR (Non-Af Amer) 36.9 ml/min BUN/Creatinine Ratio 12.4 (10-20) Glucose 94 (70-99(Fasting)) mg/dl Calcium 7.5 L (8.5-10.1) mg/dl Magnesium 1.8 (1.7-2.4) mg/dl Total Bilirubin 1.2 H (0.2-1.0) mg/dl AST 44 H (13-39) U/L ALT 17 (7-52) U/L Alkaline Phosphatase 80 (34-104) U/L Total Protein 4.9 L (6.0-8.3) gm/dl Albumin 2.0 L (3.4-5.0) gm/dl Globulin 2.9 (2.5-4.0) gm/dl Albumin/Globulin Ratio 0.7 L (0.9-2) PG Care Time/CCT Total # of Minutes Spent Total Time Spent with Patient: Total time spent is greater than 50% in coordination of care (as documented) at patient's floor/unit and/or counseling patient: Coding Diagnoses Anemia D64.9 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 K75.81; K74.60 PSVT (paroxysmal supraventricular tachycardia) I47.1 CKD (chronic kidney disease), stage III N18.3 Psoriasis with arthropathy L40.50 Depression F32.A Symptomatic anemia D64.9 Acute blood loss anemia D62 COLLIN (acute kidney injury) N17.9 Leg swelling M79.89
[2022-02-09] MEDS ORDERED: ALBUMIN 25% 12.5 GM/50 ML VIAL IV ONE (09:00)
[2022-02-09] MEDS ORDERED: SPIRONOLACTONE 25 MG TAB PO SCH (09:00)
[2022-02-09] MEDS ORDERED: SPIRONOLACTONE 25 MG TAB PO ONE (09:00)
[2022-02-09] MEDS ORDERED: PANTOprazole 40 MG TAB PO SCH (09:00)
[2022-02-09] MEDS ORDERED: IRON SUCROSE 300 MG in SODIUM CHLORIDE 0.9% 250 ML IV ONE (13:30)
--- NOTE | 2022-02-09 14:33 | Discharge Summary ---
Date of Service February 09, 2022 Admission HPI Per Admitting Provider 66-year-old male with a past medical history of pancytopenia, portal hypertension, cirrhosis secondary to [place] and presents the ER for bright red blood per rectum with clots associated with dark tarry stools which just started today. Denies any blood thinners. No headache or change in vision. He does feel weak and rundown. No chest pain or shortness of breath. He has been having right-sided abdominal pain since a fall about a month ago. No dysuria urgency or frequency. No other exacerbating or remitting factors. Admission Exam Per Admitting Provider The patient appeared well nourished and normally developed. Vital signs as documented. Head exam is normocephalic atraumatic Neck is without JVD, thyromegaly, or carotid bruits. Lungs are clear to auscultation, no focal loss of breath sounds Cardiac exam, Rhythm is regular.. No murmurs, rubs or gallops. Abdominal exam reveals normal bowel sounds, soft non tender, no masses Extremities are nonedematous and both pedal pulses are present Neurologic exam is alert and oriented, no focal loss of strength or sensation Skin is without bruises or rashes Psychologically is without concerns for anxiety or depression.. Principal Diagnosis Anemia, Melena Discharge Exam General: chronically ill appearing male resting comfortably in bed, NAD, general pallor, family at bedside HEENT: head normocephalic, atraumatic, mmm, trachea midline, slightly hard of hearing Resp: CTAB, no w/c/r, diminished in bases, 94% on RA CV: RRR, no m/r/g, chronic LE edema (reported less than usual), pulses palpable, cap refill wnl GI: +BS, soft/NT : no negron MSK/Neuro: no focal deficit, no slurred speech/facial droop Psych: AOx3, cooperative Discharge Data Allergies Allergy/AdvReac Type Severity Reaction Status Date / Time tamsulosin Allergy Intermediate HIVES Verified 02/07/22 20:25 etanercept [From Enbrel] AdvReac Intermediate Increased Verified 02/07/22 20:25 infections Consultations 02/07/22 20:47 ED Decision to Admit Stat 02/08/22 01:46 Consult Gastroenterology Routine Procedures Performed Operation Date: 02/08/22 16:45 Actual Procedures p Esophagogastroduodenoscopy - Sara Cloud DO Ordered Studies Abdomen/Pelvis CT 02/07/22 19:[address] WITHOUT CONTRAST CT DOSE: 1876.31 mGy.cm HISTORY: Rectal bleeding. Generalized abdominal pain. TECHNIQUE: Multiaxial CT images of the abdomen and pelvis were performed without contrast. A dose lowering technique was utilized adhering to the principles of ALARA. COMPARISON STUDY: Abdomen and pelvis CT 11/26/2021. FINDINGS: The lung bases are clear. No pneumoperitoneum. No pneumatosis. No fractures within the visualized osseous structures. Decreased attenuation within the blood pool consistent with an anemia. This remains unchanged. Cholecystectomy. Cirrhotic liver with splenomegaly again noted. A small amount of ascites has developed in the interval. The unenhanced pancreas and adrenal glands are unremarkable. There are are a few punctate bilateral renal calculi. No ureteral calculi. No hydronephrosis. The main portal vein remains small in caliber and demonstrates a linear focus of calcification. This may represent chronic thrombus. Splenorenal varicosities again noted. Moderate diffuse gastric wall thickening with adjacent fat stranding. This is consistent with a nonspecific gastritis. No retroperitoneal lymphadenopathy. Normal caliber abdominal aorta. The bladder is unremarkable. No dilated loops of bowel to suggest an obstruction. Mild wall thickening of the proximal colon again noted suggestive of the portal colopathy. IMPRESSION: 1. Cirrhosis with stigmata of portal hypertension including splenomegaly, abdominal varicosities, and a small amount of ascites which has progressed in the interval. 2. Moderate gastric wall thickening with adjacent fat stranding consistent with a nonspecific gastritis. 3. Mild thickening within the proximal colon remains unchanged and favors a portal colopathy. 4. Bilateral nephrolithiasis. No hydronephrosis. 5. Additional findings as described above. ACT 112: Negative or not required by law. Electronically signed by: Joaquín Bolden M.D. 02/07/2022 8:33 PM Venous Doppler Study 02/08/22 13:15 ULTRASOUND BILATERAL LOWER EXTREMITY VENOUS CLINICAL HISTORY: Lower extremity edema. COMPARISON STUDY: Bilateral lower extremity venous ultrasound dated 11/07/2018 TECHNIQUE: Real-time, grayscale, and color Doppler sonography of the deep veins of the right and left lower extremity was performed from the inguinal crease to the calf. Compression and augmentation were utilized. FINDINGS: There is no sonographic evidence of deep venous thrombosis identified in the right or left lower extremity. The common femoral, superficial femoral, and popliteal veins are patent and normally compressible bilaterally. The greater saphenous vein and the profunda femoris vein at the junction with the common femoral vein are clear in both legs. The visualized calf veins are patent bilaterally. IMPRESSION: There is no sonographic evidence of deep venous thrombosis identified in the right or left lower extremity. ACT 112: Negative or not required by law. Electronically signed by: Edward Foreman M.D. 02/08/2022 4:18 PM Hospital Course (1) Anemia: Pancytopenia 2nd to cirrhosis, but presented with melena/bright clots in bowel movements at home. Hx GAVE (admit April for ABLA due to GAVE, CAROLANN w/ clipping and APC completed, 3uPRBC) Follows with Hematology at [facility] on darbepoetin monthly and has received iron infusions in the past CTAP on admit: Cirrhosis with stigmata of portal hypertension including splenomegaly, abdominal varicosities, and a small amount of ascites which has progressed in the interval. Moderate gastric wall thickening with adjacent fat stranding consistent with a nonspecific gastritis. Mild thickening within the proximal colon remains unchanged and favors a portal colopathy. Given 1u PRBC on admission for hgb 7.5 Blood cultures pending -- ngtd 48 hours, no further fevers (had one on admission) but fever wasn't true as it resolved within a few minutes without intervention Placed on Zosyn IV in case fever from mucosal breach empirically -- d/c given EGD findings Protonix gtt, IV BID ordered GI consulted, follows with [facility] s/p EGD with grade I varices with no bleeding or stigmata of recent bleeding with Dr Cloud - Severe portal HTN gastropathy was found in entire examined stomach. Diffuse nature of stomach, no focal area identified to be able to be treated with APC. - Recs for protonix 20mg daily at discharge, carafate 1gm BID. Stop SSRI (on zoloft 50mg daily). Avoid NSAIDs (patient does not take, Dr Martinez told him not to take many years ago) Diet advanced, hgb stable on repeat at 7.8. Did report some darkened blood, ?if from old blood. No further bright red blood noted. Hgb baseline Had missed his venofer infusion on Wednesday and was to get his darbepoetin coretta AM of discharge at [facility] but was at 10. Calls made and patient given dose IV Venofer prior to d/c and to go to [facility] after discharge and able to get his injection today before family takes him home (2) 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: Patient on lactulose and xifaxan, ammonia normal, mental status is clear Outpatient hepatology f/u for TIPS eval as above, given portal gastropathy Also discussed with patient about resuming his Aldactone at 25mg, as was to be up to 100mg daily. Tolerated 25mg and continued at discharge for volume management w/ cirrhosis. Did also give a dose of albumin for low albumin/third spacing/prior hypotension Lengthy discussion about low salt diet/third spacing/etc with patient and family at bedside prior to discharge. They do cook for him, but occasional meals on wheels/frozen meals and encouraged really watching this to prevent fluid/weight gain GI Hepatology f/u appt for 2/3 to discuss TIPS procedure in future (3) PSVT (paroxysmal supraventricular tachycardia): Hx SVT, had been on carvedilol 6.125mg BID previously, held at d/c last admission in November for low BPs. PCP notes to take if SBP 120s. Follows with Dr Hartman, has event recorder, 11/16 showed brief episode SVT only lasting few beats w/ rate ventricular ectopy Had seen Dr Martinez December 21, had rec'd to cut patient lasix back to 20mg daily and use lasix 20mg prn weight gain Has been SR in the 80s on monitor (4) CKD (chronic kidney disease), stage III: Follows with Dr Martinez, baseline Cr ~2 Continues on midodrine 5mg TID for BP support, lasix reduced to 20mg most recently. Has NOT been on spironolactone for several months per patient. Will adjust med rec Cr 2.13 on admit, 1u PRBC as above --> Cr 1.85 prior to discharge Resumed low dose Aldactone 25mg daily, as K low several times on low dose lasix and to prevent hypokalemia F/u Dr Martinez outpatient (5) Psoriasis with arthropathy: Follows with Dr Stephenson, also w/ hx bullous pemphigoid, on Humira [id number] Initially discussed with Dr Stephenson this morning given concerns for infection/Zosyn/mucosal breach, ok'd to hold as no flare/psoriasis and seen recently Given EGD as above, Zosyn discontinued Can continue Humira outpatient (6) Depression: Patient remains on sertraline -- discontinuing medication per GI recs/cirrhosis, GI bleeding. Of note, patient on 50mg daily with recent increase due to depressive symptoms Advised to f/u with PCP and restart Zoloft if depressive symptoms worsen (7) Symptomatic anemia: as above, patient reports feeling improved (8) Acute blood loss anemia: hgb not significantly worse than prior values, did miss his venofer and was to have his darbepoetin as above -- to get day of discharge as an outpt (9) COLLIN (acute kidney injury): not quite to level of COLLIN, but elevated compared to baseline slightly Cr at baseline on repeat (10) Leg swelling: baseline swelling, likely from third spacing/low albumin 2.1 from his cirrhosis reports not as bad as it is at times, but reported calf tenderness bilaterally, hx upper arm DVT (in setting of line) Venous Doppler checked for completeness - NEGATIVE Diuretics w/ Lasix 20mg daily (Aldactone stopped many months ago per patient) Discussed and placed on Aldactone 25mg daily Plan Discharged home on usual lasix, resumed aldactone 25mg daily Total Time Total Time Spent Total Time Spent (In Minutes): 60 Discharge Plan Discharge Items Patient Disposition: Home - Home Health Services Reason For Visit: ANEMIA, PANCYTOPENIA, HEATON AND CH LIVER DISEASE Discharge Diagnosis: Anemia, diffuse portal hypertensive gastropathy Goals: You have been hospitalized for an acute medical problem. During your stay at [facility], we have made an effort to correct the problem that brought you to the hospital while keeping you as comfortable as possible. Medications were used to bring your condition under control and your discharge instructions will include directions for any medications you should take after leaving the hospital. Please make sure you see your Primary Care Provider as part of your follow up plan. Activity: Resume your previous activity Non-emergency contact: Primary Care Provider, Specialist, [employer] and [employer] Call non-emergency contact if: you have any medication questions, your symptoms worsen and you have a fever Follow-up/Referrals: Fiorella Castellano, [Primary Care Provider] - 02/27/22 9:20 am Finn Martinez DO [Physician] - Harriet Fernandez MD [Hospitalist] - Diet: Heart Healthy and Low Sodium (2gm) Addtl Attending Provider Instructions: You have been hospitalized for blood in your stool/anemia. GI was consulted, you received blood transfusion. You underwent EGD which showed diffuse portal hypertensive gastropathy, from elevated blood pressures due to your underlying cirrhosis. GI has made a referral to your leg man to consider a TIPS procedure to prevent this from happening in the future. This appointment is 03/30/22 and 10:10am arrival time. You should continue Protonix, but this has been decreased to once daily 20mg. You have been sent prescription for Carafate to take 1gm four times a day to help coat the lining of your stomach. As discussed, you should AVOID NSAIDs (ibuprofen/Aleve/etc) as these increase bleeding. Had discussed with GI and notes from your leg man and we have given you spironolactone 25mg daily and you should continue this daily and if not having any orthostatic hypotension, would recommend you continuing this at discharge and increasing in follow up with GI to prevent fluid accumulation from your cirrhosis. Please try and limit your sodium intake. We have STOPPED your sertraline (Zoloft) given cirrhosis and this can make this worse. We have given you a dose of Venofer given your missed dose this week, and you have called office to arrange for your darbepoetin which can be given if you get to the office before 5. You should follow up with primary care provider in the next week to monitor your status after discharge. Please follow up with GI/nephrology to monitor your status/kidney function. Please continue iron injections for your anemia. Please return to the ER with any repeat bleeding, abdominal pain, fever, or for any other symptoms concerning for you. It has been a pleasure being a part of the medical team providing for you while you have been in the hospital. Take care! Pending Studies at Discharge: Yes Studies:: Blood cultures -- no growth to date Stand-Alone Forms: My [employer], Smoking Cessation Medications and DC Order Prescriptions: New sucralfate 100 mg/mL Suspension 1 g PO BID 14 Days Qty: 280 0RF pantoprazole [Protonix] 20 mg tablet,delayed release (DR/EC) 20 mg PO DAILY Qty: 30 0RF Continued cholecalciferol (vitamin D3) 50 mcg (2,000 unit) capsule 50 mcg PO QAM Qty: 90 3RF lactulose 10 gram/15 mL solution 20 g PO BID Qty: 946 3RF Rx Instructions: ON HOLD DUE TO LOOSE STOOLS Humira(CF) Pen 40 mg/0.4 mL pen injector kit 40 mg subcut Q14D Qty: 2 5RF Rx Instructions: "DUE 02/07/22, ON HOLD DUE TO ISSUES" PER PT. Xifaxan 550 mg tablet 550 mg PO BID Qty: 60 5RF vitamin B complex Tablet 1 tab PO DAILY furosemide 20 mg tablet 20 mg PO DAILY Qty: 360 2RF Hold Instructions: Home Medication placed on hold at Doctor's office Aranesp (in polysorbate) 60 mcg/0.3 mL syringe 60 mcg subcut .COMPLEX Qty: 2 3RF Rx Instructions: Q weekly until Hgb >9. Then resume, Q other week. Hold for Hgb >10. midodrine 5 mg tablet 5 mg PO TID Qty: 90 0RF Rx Instructions: do not give last dose of day after 8M or within 4 hrs of bedtime betamethasone dipropionate 0.05 % ointment 1 applic topical DIRECTED PRN (Reason: Skin Irritation) Rx Instructions: Apply to areas of the trunk and extremities twice daily x 2 weeks as directed. Changed spironolactone 50 mg tablet 25 mg PO QAM Qty: 90 2RF Discontinued pantoprazole 40 mg tablet,delayed release (DR/EC) 40 mg PO BID Qty: 60 5RF sertraline 50 mg tablet 50 mg PO HS Discharge Orders: Discharge Order (Routine); Ordered 02/09/22 Ordered By: Sondra Betancourt Admission Data Admit Date/Time: 02/07/22 21:57 Attending Provider: Alexus Blancas Admit Provider: Soren Martinez Primary Care Provider: Fiorella Castellano Other Providers: Soren Martinez ; Elvin Carreno ; Heath Iraheta [facility] Supervising Physician Co-Signing Physician Notes PA Supervision Note: I personally saw and examined the patient. I verified all [place] points and agree with SOFI Betancourt with the following exceptions and/or additions: S-Pt feeling better, only some small amount dark stool today, then brown liquid. No SOB, CP. Legs more swollen than usual but reports he usually takes lasix 40mg alt with 20mg at home O- Vitals reviewed Gen: [AAOx3, NAD] HEENT: [anicteric sclerae, EOMI] CV: [RRR no mgr nl S1S2] Pulm: [CTAB no wcr] Abd: [+BS soft NT mild distension] Ext: [3+ pitting edema legs bilat] Skin: [no rashes, warm/dry] Neuro: [full strength throughout] A/P-66 yo male here with worsening anemia, GI bleed chronic from portal gastropathy. Transfused, had EGD. Needs f/u with hepatology continue once weekly CBC and IV iron, epo shots. Coding Level of Care Code D/C DAY MANAGEMENT >30 MINS Diagnoses Anemia D64.9 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 K75.81; K74.60 PSVT (paroxysmal supraventricular tachycardia) I47.1 CKD (chronic kidney disease), stage III N18.3 Psoriasis with arthropathy L40.50 Depression F32.A Symptomatic anemia D64.9 Acute blood loss anemia D62 COLLIN (acute kidney injury) N17.9 Leg swelling M79.89
== END 2022-02-09 16:19 | disposition home health service (06) | DRG 809 ==
LOC: ED 17:07 → EDINP 21:57 → SUATTDRO 21:57 → 2W 02-08 01:47

== ENCOUNTER 2022-03-20 12:31 | Observation (INO) ==
--- NOTE | 2022-03-20 12:38 | Emergency Department Note ---
Impression & Plan GIB (gastrointestinal bleeding), 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, Portal hypertensive gastropathy ED Provider Note NAME: SHMUEL KNOTT AGE: 66 SEX: M : 1955 ARRIVES VIA: Ambulance INFORMANT: Patient, ED PROVIDER(S): Oswald Cox MD CHIEF COMPLAINT: Dark stools, concern for GI bleeding MEDICAL DECISION MAKING: Patient presents due to concern for dark stools. Patient does have significant history of liver dysfunction. Patient did have blood work completed Hemoccult positive. Patient was ordered PPI bolus and drip as well as octreotide bolus and drip. Patient also did have a CT of the abdomen pelvis Noncon ordered. The patient was immediately consented for 2 units of PRBCs which were ordered. Patient's CT showed cirrhosis with portal hypertension and mild gastric wall thickening. Patient's initial H&H showed hemoglobin of 13. The blood was put on hold and a repeat H&H was ordered. His repeat H&H does show a hemoglobin of 8 which be more consistent with his prior hemoglobins. The patient was ordered to receive 1 unit PRBCs. I did speak with the on-call hospitalist Dr. Taylor and I also did speak with the gastroenterology service BRENDA Mcgraw and the patient would be admitted to the medicine service with a GI consultation. GI is requesting that the patient be made n.p.o. for possible future procedure. Critical Care: I have personally spent 43 minutes of critical care time in direct management of this patient. This includes bedside care, interpretation of diagnostic studies, and testing, discussion with consultants, patient, and family members, and other require inpatient management activities. This 43 minutes is in excess of all separately billable procedures. Prior /Outside records reviewed: None Differential diagnosis: Diverticulosis, AVM, coagulopathy, colitis, inflammatory bowel disease, malignancy, Radha-Olivo tear, esophagitis, peptic ulcer disease, variceal bleed, gastritis, epistaxis, fissure, hemorrhoids, as well as other pathologies. Diagnostics, as interpreted by me: ECG: Sinus tachycardia, rate of 102, normal intervals normal axis no ST brook vations, T wave inversion in lead III. Cardiac monitoring: An order was placed for continuous cardiac monitoring. The monitor shows a rate of 102 with tachycardic and regular rhythm. Patient was placed on pulse oximetry Medical decision rules: None Imaging studies: See below HPI: Patient presents via EMS due to concern for dark stools. The patient states that he noticed them this morning. The patient does complain of some lightheadedness and dizziness. Patient did notice some abdominal pain that was in the upper abdomen last evening does feel improved. Patient denies any vomiting. The patient has not drank alcohol in approximate 40 years and has not smoked cigarettes for approximately 30 years. Patient denies any chest pains or shortness of breath. No nausea. Patient states that he is compliant with his medications. He does follow with Dr. Castellano for PCP and Dr. Fernandez with [facility]. Patient relates that he has had a prior liver stent placed. PAST MEDICAL HISTORY: See Below PAST SURGICAL HISTORY: See Below SOCIAL HISTORY: See Below HOME MEDICATIONS: See Below ALLERGIES: See Below VITALS: See Below PHYSICAL EXAMINATION: GENERAL: NAD, wearing a mask, non-toxic. EYE EXAM: Normal conjunctiva. PERRL, no anisocoria and EOM's grossly intact w/o pain. NECK: Supple, no nuchal rigidity, no adenopathy, non-tender. No signs of meningismus. FROM of the neck with good chin to chest and neck extension. No stridor. LUNGS: Clear to auscultation. Normal chest wall mechanics. HEART: Tachycardic and regular, no MRG. ABDOMEN: Abdomen soft, mild upper abdominal discomfort noted, normo-active bowel sounds, no masses, no rebound or guarding. BACK: No CVA TTP. SKIN: Telangiectasias noted. Rectal exam: No bright red blood, dark stool, heme positive. UPPER EXTREMITIES: Upper extremities are grossly normal. LOWER EXTREMITIES: Grossly normal, no edema. NEURO EXAM: A&O x3, cranial nerves II-XII grossly intact, normal speech, moves all 4 extremities. Past Med/Surg History Medical History Ascites Cervical disc disease CKD (chronic kidney disease), stage III Depression GAVE (gastric antral vascular ectasia) Per records GERD (gastroesophageal reflux disease) History of herniated intervertebral disc lumbar area History of SCC (squamous cell carcinoma) of skin S/p removal- follows with derm Hx of blood clots 06/2021 @ [facility]- pt reports blood clot in left arm around IV site after being discharged from hospital- no meds due to current blood loss issue- warm compresses to site per pt- 2 ultrasounds done - no current issues Hypertension Hypothyroidism 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 Lumbar disc disease Oral mucositis On mouthwash daily- no recent issues Portal hypertensive gastropathy Psoriasis Psoriatic arthritis PVT (portal vein thrombosis) denies Spinal stenosis EPIDURAL INJECTIONS IN PAST FOR PAIN RELIEF TMJ arthralgia Urinary retention Urinary tract infection Wide-complex tachycardia ON CARDVEDILOL-F/U DR VANESSA LAST VISIT<1 YR AGO Surgical History H/O foot surgery excision of neuroma b/l feet History of appendectomy History of arthroscopy RT KNEE History of cataract surgery RT/LEFT History of cholecystectomy History of esophagogastroduodenoscopy (EGD) History of esophagogastroduodenoscopy (EGD) 02/08/22 Dr. Sara Cloud- EGD- Grade I esophageal varices, Portal hypertensive gastropathy History of herniorrhaphy right inguinal History of lithotripsy History of liver biopsy History of repair of rotator cuff RT/LEFT History of tooth extraction History of urologic surgery Urethral reconstruction 4 years ago at [facility] Nausea and vomiting after administration of anesthetic agent S/P colonoscopy S/P epidural steroid injection S/P orchiectomy Right age 9 for UDT S/P urological surgery [place]2018[place] [facility] [place] [place] Suprapubic catheter AND REMOVAL Family History Grandmother (Maternal) Diabetes Father Renal cancer Mother Aortic aneurysm Denies family history of Ovarian cancer Prostate cancer Myocardial infarction Breast cancer Colorectal cancer Social History Smoking Status: Never smoker Second Hand Exposure: No; Hx Alcohol Use: No Hx Substance Use: No Preferred Language: Armenian Communication Ability: Effective Visual Impairment: No Limitations Hearing Ability: Hard of Hearing Double Cut Sawyer Required: No Beliefs That Will Affect Care: None marital status: / Current Living Situation: Family Current Living Situation Comment: Lives with son current occupational status: retired How many Children do You have: 1 Other Information That Helps Us Care for You: No Feels Safe at Home: Yes Safety Concerns: Feels Safe At This Time Diet Comment: regular caffeine: Yes during the past year weight has: decreased > 10 lbs Dental Care, Regularly: No Physical Activity Frequency: Other Physical Activity Frequency Comment: does all housework/outside work and cuts wood Seatbelt Use: never Sunscreen Use: No Assistive Devices: Cane Allergies Allergies Allergy/AdvReac Type Severity Reaction Status Date / Time tamsulosin Allergy Intermediate HIVES Verified 03/21/22 11:40 etanercept [From Enbrel] AdvReac Intermediate Increased Verified 03/21/22 11:40 infections Home Meds Home Medications Medication Instructions Recorded Confirmed betamethasone dipropionate 0.05 % 1 applic topical DIRECTED PRN 05/10/21 03/20/22 topical ointment Skin Irritation vitamin B complex 1 tab PO DAILY 10/23/21 03/20/22 spironolactone 50 mg tablet 25 mg PO DAILY 03/20/22 03/20/22 Previous Rx's Medication Instructions Recorded cholecalciferol (vitamin D3) 50 50 mcg PO QAM #90 caps 05/15/21 mcg (2,000 unit) capsule lactulose 10 gram/15 mL oral 20 g (30 mL) PO BID #946 mL 09/19/21 solution adalimumab 40 mg/0.4 mL 40 mg (0.4 mL) subcut Q14D #2 ea 01/03/22 subcutaneous pen kit (Humira(CF) Pen) rifaximin 550 mg tablet (Xifaxan) 550 mg PO BID #60 tabs 01/16/22 midodrine 5 mg tablet 5 mg PO TID #90 tabs 02/13/22 darbepoetin coretta in polysorbat 60 60 mcg (0.3 mL) subcut .COMPLEX #4 02/22/22 mcg/0.3 mL in polysorbate SYRINGES injection syringe (Aranesp) pantoprazole 20 mg tablet,delayed 20 mg PO DAILY #90 tabs 03/08/22 release (Protonix) furosemide 20 mg tablet 40 mg PO DAILY #360 tabs 03/16/22 potassium chloride 10 mEq 10 meq PO DAILY #90 caps 03/16/22 capsule,extended release carvedilol 3.125 mg tablet 3.125 mg PO BID #60 tabs 03/22/22 pantoprazole 40 mg tablet,delayed 40 mg PO BID #60 tabs 03/22/22 release Results & Data (ED) Vital Signs Vital Signs - 24 hr 03/20/22 12:19 Temperature 36.7 C Temperature Source Oral Pulse Rate 98 H Pulse Rhythm Regular Respiratory Rate 22 Respiratory Effort / Characteristics Non-Labored Spontaneous Respiratory Depth Normal Blood Pressure 122/68 Blood Pressure Mean 86 Pulse Oximetry 97 Oxygen Delivery Method Room Air Sepsis Recent Fever Within 48 Hours No Sepsis New/Unexplained Change in Mental Status N/A Sepsis Action Taken by Nursing No Action Required Home Medications Current Medication List: was personally reviewed by me Laboratory Data Attestation: I reviewed the patient's lab results. 03/21/22 15:36 03/22/22 09:30 Lab Results 03/20/22 03/20/22 03/20/22 Range/Units 12:44 12:47 12:47 WBC 2.12 L (4.8-10.8) K/ul RBC 4.00 L (4.63-6.08) M/uL Hgb 13.8 L (14.0-18.0) g/dl Hct 40.8 (40.1-51.0) % MCV 102.0 H (80.0-100.0) fL MCH 34.5 H (25.0-34.0) pg MCHC 33.8 (32.0-36.0) g/dL RDW Std Deviation 81.8 H (36.4-46.3) fL RDW Coeff of Miguel 21.7 H (11.5-14.5) % Plt Count 54 L (130-400) K/uL MPV 8.6 L (9.4-12.4) fL Immature Gran % (Auto) 0.5 % Neut % (Auto) 70.4 % Lymph % (Auto) 12.7 % [place] % (Auto) 12.7 % Eos % (Auto) 2.8 % Baso % (Auto) 0.9 % Neut # (Auto) 1.49 (1.4-6.5) K/uL Lymph # (Auto) 0.27 L (1.2-3.4) K/uL [place] # (Auto) 0.27 (0.24-0.82) K/uL Eos # (Auto) 0.06 (0-0.50) K/uL Baso # (Auto) 0.02 (0-0.2) K/uL Immature Gran # (Auto) 0.01 (0.00-0.02) K/uL Polychromasia 2+ Anisocytosis Present PT 14.5 H (9.0-12.0) Seconds INR 1.4 H (0.9-1.1) APTT 23.7 (21.0-31.0) Seconds PTT Ratio 0.9 Sodium (136-145) mmol/L Potassium (3.5-5.1) mmol/L Chloride (98-107) mmol/L Carbon Dioxide (21-32) mmol/L Anion Gap (3-11) BUN (6-23) mg/dl Creatinine (0.6-1.4) mg/dl Est Cr Clr Drug Dosing ml/min Est GFR ( Amer) ml/min Est GFR (Non-Af Amer) ml/min BUN/Creatinine Ratio (10-20) Glucose (70-99(Fasting)) mg/dl Calcium (8.5-10.1) mg/dl Total Bilirubin (0.2-1.0) mg/dl AST (13-39) U/L ALT (7-52) U/L Alkaline Phosphatase (34-104) U/L Total Protein (6.0-8.3) gm/dl Albumin (3.4-5.0) gm/dl Globulin (2.5-4.0) gm/dl Albumin/Globulin Ratio (0.9-2) Lipase (11-82) U/L POC Stool Occult Blood (Negative) Blood Type O Positive Antibody Screen NEGATIVE Crossmatch See Detail 03/20/22 03/20/22 03/20/22 Range/Units 12:47 12:58 14:35 WBC (4.8-10.8) K/ul RBC (4.63-6.08) M/uL Hgb 8.0 L D (14.0-18.0) g/dl Hct 24.4 L (40.1-51.0) % MCV (80.0-100.0) fL MCH (25.0-34.0) pg MCHC (32.0-36.0) g/dL RDW Std Deviation (36.4-46.3) fL RDW Coeff of Miguel (11.5-14.5) % Plt Count (130-400) K/uL MPV (9.4-12.4) fL Immature Gran % (Auto) % Neut % (Auto) % Lymph % (Auto) % [place] % (Auto) % Eos % (Auto) % Baso % (Auto) % Neut # (Auto) (1.4-6.5) K/uL Lymph # (Auto) (1.2-3.4) K/uL [place] # (Auto) (0.24-0.82) K/uL Eos # (Auto) (0-0.50) K/uL Baso # (Auto) (0-0.2) K/uL Immature Gran # (Auto) (0.00-0.02) K/uL Polychromasia Anisocytosis PT (9.0-12.0) Seconds INR (0.9-1.1) APTT (21.0-31.0) Seconds PTT Ratio Sodium 135 L (136-145) mmol/L Potassium 5.0 (3.5-5.1) mmol/L Chloride 103 (98-107) mmol/L Carbon Dioxide 26 (21-32) mmol/L Anion Gap 6 (3-11) BUN 27 H (6-23) mg/dl Creatinine 1.95 H (0.6-1.4) mg/dl Est Cr Clr Drug Dosing 49.4 ml/min Est GFR ( Amer) 40.1 ml/min Est GFR (Non-Af Amer) 34.6 ml/min BUN/Creatinine Ratio 13.8 (10-20) Glucose 138 H (70-99(Fasting)) mg/dl Calcium 8.8 (8.5-10.1) mg/dl Total Bilirubin 3.0 H (0.2-1.0) mg/dl AST 30 (13-39) U/L ALT 13 (7-52) U/L Alkaline Phosphatase 119 H (34-104) U/L Total Protein 5.6 L (6.0-8.3) gm/dl Albumin 2.1 L (3.4-5.0) gm/dl Globulin 3.5 (2.5-4.0) gm/dl Albumin/Globulin Ratio 0.6 L (0.9-2) Lipase 17 (11-82) U/L POC Stool Occult Blood Positive A (Negative) Blood Type Antibody Screen Crossmatch Administered Medications Furosemide (Furosemide 40 Mg Tab) 40 mg PO DAILY LUZ Stop: 02/25/23 08:59 Last Admin: 03/22/22 08:54 Dose: 40 mg Documented By: AM Lactulose (Lactulose Syrup 20 Gm/30 Ml Udc) 20 gm PO BID LUZ Stop: 04/20/22 20:59 Last Admin: 03/22/22 10:20 Dose: Not Given Documented By: Admin: 03/21/22 19:49 Dose: Not Given Documented By: ALKristin Ondansetron HCl (Ondansetron Inj 2 Mg/Ml 2 Ml Vial) 4 mg IV Q6H PRN PRN Reason: Nausea And Vomiting Stop: 04/19/22 20:18 Last Admin: 03/21/22 05:08 Dose: 4 mg Documented By: Admin: 03/20/22 20:49 Dose: 4 mg Documented By: ANGELITA Pantoprazole Sodium (Pantoprazole 40 Mg Tab) 40 mg PO BID LUZ Stop: 04/20/22 20:59 Last Admin: 03/22/22 08:54 Dose: 40 mg Documented By: Admin: 03/21/22 19:49 Dose: 40 mg Documented By: ANGELITA Rifaximin (Rifaximin 550 Mg Tablet) 550 mg PO BID LUZ Stop: 04/20/22 20:59 Last Admin: 03/22/22 08:53 Dose: 550 mg Documented By: Admin: 03/21/22 19:49 Dose: 550 mg Documented By: ANGELITA Discontinued Medications Carvedilol (Carvedilol 3.125 Mg Tab) 3.125 mg PO NOW ONE Stop: 03/21/22 13:57 Last Admin: 03/21/22 15:29 Dose: 3.125 mg Documented By: AM Carvedilol (Carvedilol 3.125 Mg Tab) 3.125 mg PO BID LUZ Stop: 04/20/22 20:59 Last Admin: 03/22/22 08:53 Dose: 3.125 mg Documented By: Admin: 03/21/22 19:49 Dose: 3.125 mg Documented By: ANGELITA Furosemide (Furosemide 40 Mg/4 Ml Vial) 40 mg IV ONE ONE Stop: 03/21/22 12:46 Last Admin: 03/21/22 13:44 Dose: 40 mg Documented By: AM Pantoprazole Sodium 80 mg/ (Dextrose) 100 mls @ 400 mls/hr IV NOW ONE Stop: 03/20/22 13:12 Last Infusion: 03/20/22 15:00 Dose: 0 mls/hr Documented By: Admin: 03/20/22 14:43 Dose: 400 mls/hr Documented By: MEGHA Pantoprazole Sodium 40 mg/ (Dextrose) 100 mls @ 20 mls/hr IV Q5H LUZ Stop: 04/19/22 12:59 Last Infusion: 03/21/22 13:17 Dose: 0 mg/hr, 0 mls/hr Documented By: Admin: 03/21/22 07:08 Dose: 8 mg/hr, 20 mls/hr Documented By: Infusion: 03/21/22 07:08 Dose: 8 mg/hr, 20 mls/hr Documented By: [facility] Admin: 03/21/22 02:08 Dose: 8 mg/hr, 20 mls/hr Documented By: [facility] Admin: 03/21/22 02:08 Dose: Not Given Documented By: Infusion: 03/21/22 02:08 Dose: 8 mg/hr, 20 mls/hr Documented By: [facility] Admin: 03/20/22 21:25 Dose: 8 mg/hr, 20 mls/hr Documented By: Infusion: 03/20/22 21:25 Dose: 8 mg/hr, 20 mls/hr Documented By: Infusion: 03/20/22 16:49 Dose: 8 mg/hr, 20 mls/hr Documented By: [id number] Infusion: 03/20/22 14:44 Dose: 0 mg/hr, 0 mls/hr Documented By: Admin: 03/20/22 14:44 Dose: 8 mg/hr, 20 mls/hr Documented By: MEGHA Octreotide Acetate 500 mcg/ (Dextrose) 100.5 mls @ 10.05 mls/hr IV .Q10H LUZ Stop: 04/19/22 12:59 Last Infusion: 03/21/22 13:16 Dose: 0 mcg/hr, 0 mls/hr Documented By: Admin: 03/21/22 05:05 Dose: 50 mcg/hr, 10.1 mls/hr Documented By: Infusion: 03/21/22 05:05 Dose: 50 mcg/hr, 10.1 mls/hr Documented By: Admin: 03/20/22 21:25 Dose: 50 mcg/hr, 10.1 mls/hr Documented By: Infusion: 03/20/22 21:25 Dose: 50 mcg/hr, 10.1 mls/hr Documented By: [facility] Admin: 03/20/22 14:44 Dose: 50 mcg/hr, 10.1 mls/hr Documented By: MEGHA Ceftriaxone Sodium (Rocephin) 2,000 mg in 70 mls @ 140 mls/hr IV NOW STA Stop: 03/20/22 16:31 Last Infusion: 03/20/22 19:24 Dose: 0 mls/hr Documented By: Admin: 03/20/22 18:46 Dose: 140 mls/hr Documented By: WRS Lidocaine HCl (Lidocaine 2% Mpf Local 5 Ml Vial) Confirm Administered Dose 5 ml INFIL .STK-MED ONE Stop: 03/21/22 12:30 Last Admin: 03/21/22 13:36 Dose: Not Given Documented By: AM Miscellaneous (Stat Iv) 1 each N/A NOW STA Stop: 03/20/22 12:59 Last Admin: 03/20/22 15:02 Dose: Not Given Documented By: MEGHA Octreotide Acetate (Octreotide Bolus From Bag) 100 mcg IV TODAY@1300 ONE Stop: 03/20/22 13:01 Last Admin: 03/20/22 15:14 Dose: 100 mcg Documented By: MEGHA Phenylephrine HCl (Phenylephrine 100mcg/Ml 5ml Syr) Confirm Administered Dose 100 mcg .ROUTE .STK-MED ONE Stop: 03/21/22 12:30 Last Admin: 03/21/22 13:36 Dose: Not Given Documented By: AM Propofol (Propofol Iv Emulsion 10 Mg/Ml 20 Ml Vial) Confirm Administered Dose 200 mg IV .STK-MED ONE Stop: 03/21/22 12:30 Last Admin: 03/21/22 13:37 Dose: Not Given Documented By: AM Imaging Data Radiologist's Impression: Abdomen/Pelvis CT 03/20/22 12:[address] WITHOUT CONTRAST CT DOSE: 1561.93 mGy.cm HISTORY: Generalized abdominal pain. GI bleed. TECHNIQUE: Multiaxial CT images of the abdomen and pelvis were performed without contrast. A dose lowering technique was utilized adhering to the principles of ALARA. COMPARISON STUDY: Abdomen and pelvis CT 02/07/2022. FINDINGS: The lung bases are clear. No pneumoperitoneum. No pneumatosis. There are old, healed right posterior rib fractures again noted. Decreased attenuation within the blood pool consistent with anemia. This remains unchanged. Mild gastric wall thickening has improved. Prior cholecystectomy. The main portal vein is small in caliber and demonstrates a small amount of calcification suggestive of chronic thrombus. This remains unchanged. Nodular contour to the liver consistent with cirrhosis. The spleen remains mildly enlarged. The adrenal glands and pancreas unremarkable. Multiple splenorenal varices are again noted. No retroperitoneal lymphadenopathy. Bilateral nephrolithiasis. No ureteral stones. No hydronephrosis. A small to moderate amount of ascites has slightly progressed. No dilated loops of bowel to suggest an obstruction. No significant bladder wall thickening. Mild thickening of the proximal colon remains unchanged. This suggests a portal colopathy. Questionable thickening of the jejunal loops is likely due to underdistention. A low-grade enteritis is considered less likely but not entirely excluded. IMPRESSION: 1. Cirrhosis with stigmata of portal hypertension including splenomegaly, abdominal varicosities, and a small to moderate amount of ascites. This has progressed in the interval. 2. Mild gastric wall thickening which has improved. 3. Mild thickening within the proximal colon, unchanged. This favors portal colopathy. 4. Bilateral nephrolithiasis. No hydronephrosis. 5. Mild thickening within the jejunal loops is likely due to underdistention. A low-grade enteritis is considered less likely but not entirely excluded. 6. Additional findings as described above. ACT 112: Negative or not required by law. Electronically signed by: Joaquín Bolden M.D. 03/20/2022 2:09 PM Discharge Plan Visit Data Chief Complaint: GI Assessment ED Provider: Oswald Cox Discharge Problem: GIB (gastrointestinal bleeding), 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, Portal hypertensive gastropathy Patient Disposition: Admitted As Inpatient Discharge Instructions Interventions: ED Discharge Assessment Last Done: 03/20/22 17:50
[2022-03-20] MEDS ORDERED: STAT IV STA (12:58)
[2022-03-20] MEDS ORDERED: OCTREOTIDE ACETATE 100 MCG in SYRINGE 9 ML IV STA (12:58)
[2022-03-20] MEDS ORDERED: PANTOprazole 80 MG in DEXTROSE 5% 100 ML IV ONE (12:58)
[2022-03-20] MEDS ORDERED: SODIUM CHLORIDE 0.9% 250 ML IV PRN (12:59)
[2022-03-20] MEDS ORDERED: OCTREOTIDE BOLUS FROM BAG IV ONE (13:00)
[2022-03-20 13:57] LABS: Basophils # (auto) 0.02 K/uL (0-0.2); Basophils % (auto) 0.9 %; Eosinophils # (auto) 0.06 K/uL (0-0.50); Eosinophils % (auto) 2.8 %; Hematocrit (blood only) 40.8 % (40.1-51.0); Hemoglobin 13.8 g/dl (14.0-18.0); Immature Granulocytes # (auto) 0.01 K/uL (0.00-0.02); Immature Granulocytes % (auto) 0.5 %; Lymphocytes # (auto) 0.27 K/uL (1.2-3.4); Lymphocytes % (auto) 12.7 %; Mean Corpuscular Hemoglobin 34.5 pg (25.0-34.0); Mean Corpuscular Hgb Conc 33.8 g/dL (32.0-36.0); Mean Platelet Volume 8.6 fL (9.4-12.4); Monocytes # (auto) 0.27 K/uL (0.24-0.82); Monocytes % (auto) 12.7 %; Neutrophils # (auto) 1.49 K/uL (1.4-6.5); Neutrophils % (auto) 70.4 %; Platelet Count 54 K/uL (130-400); RDW Coefficient of Variation 21.7 % (11.5-14.5); RDW Standard Deviation 81.8 fL (36.4-46.3); White Blood Count 2.12 K/ul (4.8-10.8)
[2022-03-20 13:58] LABS: INR 1.4 (0.9-1.1); Partial Thromboplastin Ratio 0.9; Partial Thromboplastin Time 23.7 Seconds (21.0-31.0); Prothrombin Time 14.5 Seconds (9.0-12.0)
--- NOTE | 2022-03-20 14:10 | CT Scan Report ---
ABDOMEN AND PELVIS CT WITHOUT CONTRAST CT DOSE: 1561.93 mGy.cm HISTORY: Generalized abdominal pain. GI bleed. TECHNIQUE: Multiaxial CT images of the abdomen and pelvis were performed without contrast. A dose lo wering technique was utilized adhering to the principles of ALARA. COMPARISON STUDY: Abdomen and pelvis CT 02/07/2022. FINDINGS: The lung bases are clear. No pneumoperitoneum. No pneumatosis. There are old, healed right posterior rib fractures again noted. Decreased attenuation within the blood pool consistent with anem ia. This remains unchanged. Mild gastric wall thickening has improved. Prior cholecystectomy. The meghana n portal vein is small in caliber and demonstrates a small amount of calcification suggestive of rand butter ghada thrombus. This remains unchanged. Nodular contour to the liver consistent with cirrhosis. The spl een remains mildly enlarged. The adrenal glands and pancreas unremarkable. Multiple splenorenal varic es are again noted. No retroperitoneal lymphadenopathy. Bilateral nephrolithiasis. No ureteral stones . No hydronephrosis. A small to moderate amount of ascites has slightly progressed. No dilated loops of bowel to suggest an obstruction. No significant bladder wall thickening. Mild thickening of the pr oximal colon remains unchanged. This suggests a portal colopathy. Questionable thickening of the jeju nal loops is likely due to underdistention. A low-grade enteritis is considered less likely but not e ntirely excluded. IMPRESSION: 1. Cirrhosis with stigmata of portal hypertension including splenomegaly, abdominal varicosities, and a small to moderate amount of ascites. This has progressed in the interval. 2. Mild gastric wall thickening which has improved. 3. Mild thickening within the proximal colon, unchanged. This favors portal colopathy. 4. Bilateral nephrolithiasis. No hydronephrosis. 5. Mild thickening within the jejunal loops is likely due to underdistention. A low-grade enteritis i s considered less likely but not entirely excluded. 6. Additional findings as described above. ACT 112: Negative or not required by law. Electronically signed by: Joaquín Bolden M.D. 03/20/2022 2:09 PM
[2022-03-20 14:16] LABS: Albumin Level 2.1 gm/dl (3.4-5.0); Calcium 8.8 mg/dl (8.5-10.1)
[2022-03-20 14:20] LABS: Anisocytosis Present; Polychromasia 2+
[2022-03-20 14:23] LABS: Albumin Globulin Ratio 0.6 (0.9-2); BUN Creatinine Ratio 13.8 (10-20); Creatinine Clr Calc Pharmacy 49.4 ml/min; Est GFR (African American) 40.1 ml/min; Est GFR (Non-African American) 34.6 ml/min; Globulin 3.5 gm/dl (2.5-4.0); Total Protein 5.6 gm/dl (6.0-8.3)
[2022-03-20] MEDS: OCTREOTIDE ACETATE 500 MCG in DEXTROSE 5% 100 ML IV SCH ×2 (14:44→21:25)
[2022-03-20] MEDS: PANTOprazole 40 MG in DEXTROSE 5% 100 ML IV SCH ×2 (14:44→21:25)
[2022-03-20 14:59] LABS: Hematocrit (blood only) 24.4 % (40.1-51.0)
--- NOTE | 2022-03-20 15:33 | History & Physical Report ---
Date of Service March 20, 2022 Assessment & Plan (1) Acute blood loss anemia: Plan: Acute upper GI bleed With history of [place], portal gastropathy, varices. Patient with epigastric tenderness Hemoglobin on recheck 8 H&H every 6 hours Suspect initial hemoglobin greater than 13 was an error, baseline around 8 and recheck was 8 Patient with 1 day of melena Continue PPI gtt., octreotide gtt. GI consulted, following with medical therapy for upper GI bleed SBP prophylaxis with Rocephin 1 g daily Rifaximin, lactulose held while n.p.o. 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 Has never had therapeutic tap No tap indicated at this time GI consulted for bleed, does not appear acutely decompensated on admission History of hypertension Continue midodrine 5 mg p.o. 3 times daily, otherwise n.p.o. CKD Lasix/spironolactone held while n.p.o. Creatinine baseline 1.82.1, creatinine is 1.95 on admission Trend daily Renally adjust medications for clearance (2) CKD (chronic kidney disease), stage III: (3) GERD (gastroesophageal reflux disease): (4) Hypothyroidism: (5) Portal hypertensive gastropathy: (6) Wide-complex tachycardia: (7) Thrombocytopenia: History of Present Illness Primary Care Provider: Fiorella Castellano DO Sebastian Khang is a 66-year-old male with a past medical history of portal hypertensive gastropathy, varices, CKD, liver cirrhosis 2/2 HEATON, GERD, GI bleed, pancytopenia, SVT, and hypertension who presents with 1 day of lightheadedness and melena. Patient reports he was in his usual state of health yesterday. This morning when going to the bathroom he had a bowel movement that was black sticky and tar-like. He reports he had a similar bowel movement back in November when he was admitted for a GI bleed. Due to his lightheadedness and former experience with this being blood, he immediately presented for evaluation. Patient did have an initial hemoglobin which showed a level of 13 which was inconsistent with prior baseline and with his clinical appearance, this was suspected in error. Recheck was hemoglobin 8.0 He reports that he has not had any hematemesis or vomiting, but does have epigastric tenderness worse over the last day with nausea. He reports he has been doing decently well with outpatient management, he is followed by nephrology on Lasix/spironolactone which is helped with fluid. He has never needed a paracentesis. He denies recent increase in swelling. Patient is followed with Dr. Fernandez without [facility]. He has never had a liver stent placed, this is been discussed as outpatient but has not yet needed this and is pending further outpatient follow-up Medical History: Reviewed Medications: Reviewed Surgical History: Reviewed Allergies: Reviewed Social History: Reviewed Code Status:DNR Allergies Allergy/AdvReac Type Severity Reaction Status Date / Time tamsulosin Allergy Intermediate HIVES Verified 02/27/22 12:37 etanercept [From Enbrel] AdvReac Intermediate Increased Verified 02/27/22 12:37 infections Home Medications Medication Instructions Recorded Confirmed Type betamethasone dipropionate 0.05 % 1 applic topical DIRECTED PRN 05/10/21 02/27/22 History topical ointment Skin Irritation cholecalciferol (vitamin D3) 50 50 mcg PO QAM #90 caps 05/15/21 02/27/22 Rx mcg (2,000 unit) capsule lactulose 10 gram/15 mL oral 20 g (30 mL) PO BID #946 mL 09/19/21 02/27/22 Rx solution vitamin B complex 1 tab PO DAILY 10/23/21 02/27/22 History adalimumab 40 mg/0.4 mL 40 mg (0.4 mL) subcut Q14D #2 ea 01/03/22 02/27/22 Rx subcutaneous pen kit (Humira(CF) Pen) rifaximin 550 mg tablet (Xifaxan) 550 mg PO BID #60 tabs 01/16/22 02/27/22 Rx midodrine 5 mg tablet 5 mg PO TID #90 tabs 02/13/22 02/27/22 Rx darbepoetin coretta in polysorbat 60 60 mcg (0.3 mL) subcut .COMPLEX #4 02/22/22 02/27/22 Rx mcg/0.3 mL in polysorbate SYRINGES injection syringe (Aranesp) spironolactone 50 mg tablet 50 mg PO .COMPLEX #90 tabs 02/27/22 02/27/22 Rx pantoprazole 20 mg tablet,delayed 20 mg PO DAILY #90 tabs 03/08/22 Rx release (Protonix) furosemide 20 mg tablet 40 mg PO DAILY #360 tabs 03/16/22 Rx potassium chloride 10 mEq 10 meq PO DAILY #90 caps 03/16/22 Rx capsule,extended release Past Med/Surg History Medical History Ascites Cervical disc disease CKD (chronic kidney disease), stage III Depression GAVE (gastric antral vascular ectasia) Per records GERD (gastroesophageal reflux disease) History of herniated intervertebral disc lumbar area History of SCC (squamous cell carcinoma) of skin S/p removal- follows with derm Hx of blood clots 06/2021 @ [facility] [place]- pt reports blood clot in left arm around IV site after being discharged from hospital- no meds due to current blood loss issue- warm compresses to site per pt- 2 ultrasounds done - no current issues Hypertension Hypothyroidism 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 Lumbar disc disease Oral mucositis On mouthwash daily- no recent issues Portal hypertensive gastropathy Psoriasis Psoriatic arthritis PVT (portal vein thrombosis) denies Spinal stenosis EPIDURAL INJECTIONS IN PAST FOR PAIN RELIEF TMJ arthralgia Urinary retention Urinary tract infection Wide-complex tachycardia ON CARDVEDILOL-F/U DR VANESSA LAST VISIT<1 YR AGO Surgical History H/O foot surgery excision of neuroma b/l feet History of appendectomy History of arthroscopy RT KNEE History of cataract surgery RT/LEFT History of cholecystectomy History of esophagogastroduodenoscopy (EGD) History of esophagogastroduodenoscopy (EGD) 02/08/22 Dr. Sara Cloud- EGD- Grade I esophageal varices, Portal hypertensive gastropathy History of herniorrhaphy right inguinal History of lithotripsy History of liver biopsy History of repair of rotator cuff RT/LEFT History of tooth extraction History of urologic surgery Urethral reconstruction 4 years ago at [facility] Nausea and vomiting after administration of anesthetic agent S/P colonoscopy S/P epidural steroid injection S/P orchiectomy Right age 9 for UDT S/P urological surgery (2018) BMG urethroplasty-C Suprapubic catheter AND REMOVAL Family History Grandmother (Maternal) Diabetes Father Renal cancer Mother Aortic aneurysm Denies family history of Ovarian cancer Prostate cancer Myocardial infarction Breast cancer Colorectal cancer Social History Smoking Status: Never smoker Second Hand Exposure: No; Hx Alcohol Use: No Hx Substance Use: No Preferred Language: [place] Islander Communication Ability: Effective Visual Impairment: No Limitations Hearing Ability: Hard of Hearing Paraplanner Required: No Beliefs That Will Affect Care: None marital status: / Current Living Situation: Family Current Living Situation Comment: Lives with son current occupational status: retired How many Children do You have: 1 Feels Safe at Home: Yes Diet Comment: regular caffeine: Yes during the past year weight has: decreased > 10 lbs Dental Care, Regularly: No Physical Activity Frequency: Other Physical Activity Frequency Comment: does all housework/outside work and cuts wood Seatbelt Use: never Sunscreen Use: No Assistive Devices: Cane and Walker Review of Systems Review of Systems: All systems reviewed & are unremarkable except as noted in HPI & below Physical Exam Physical Exam: General: A&Ox3. NAD. Cooperative. HEENT: Atraumatic, normocephalic. Vision/hearing intact Pulm: CTAB A&P. -wheezes, -rales, -rhonchi. Symmetrical chest rise. No increased work of breathing. No respiratory distress. Cardiac: tachycardic, -mrg. Radial pulses intact and symmetrical. Abdominal: Distended. +ascites. +epigastric tenderness. +RUQ tenderness. Ext: Bilat LE edema. Results & Data Results & Data ([facility]) Vital Signs (Past 12 Hours) Vital Signs Temp Pulse Resp BP Pulse Ox O2 Del Method 03/20/22 12:58 Room Air 03/20/22 12:19 36.7 C 98 H 22 122/68 97 Room Air PG Care Time/CCT Total # of Minutes Spent Total Time Spent with Patient: Total time spent is greater than 50% in coordination of care (as documented) at patient's floor/unit and/or counseling patient: Coding Level of Care Code 47670 INT INP/OBS CARE 3/75MIN Diagnoses Acute blood loss anemia D62 CKD (chronic kidney disease), stage III N18.3 GERD (gastroesophageal reflux disease) K21.9 Hypothyroidism E03.9 Portal hypertensive gastropathy K76.6; K31.89 Wide-complex tachycardia I47.2 Thrombocytopenia D69.6
[2022-03-20] MEDS ORDERED: cefTRIAXone SODIUM 2,000 MG/70 ML BAG IV STA (16:02)
--- NOTE | 2022-03-20 18:29 | Electrocardiogram Report ---
Test Reason : Blood Pressure : / mmHG Vent. Rate : 102 BPM Atrial Rate : 102 BPM P-R Int : 176 ms QRS Dur : 084 ms QT Int : 360 ms P-R-T Axes : 056 -02 018 degrees QTc Int : 469 ms Sinus tachycardia with Premature ventricular complexes or Fusion complexes Low voltage QRS Abnormal ECG When compared with ECG of 07-FEB-2022 17:32, Fusion complexes are now Present Premature ventricular complexes are now Present Confirmed by Franklyn Hartman ([id number]) on 03/20/2022 6:29:23 PM Referred By: REFERRED SELF Confirmed By:Juan Hartman
[2022-03-20] MEDS: ONDANSETRON INJ 2 MG/ML 2 ML VIAL IV PRN (20:49)
[2022-03-21 01:09] LABS: Hematocrit (blood only) 25.7 % (40.1-51.0); Hemoglobin 8.6 g/dl (14.0-18.0)
[2022-03-21] MEDS: PANTOprazole 40 MG in DEXTROSE 5% 100 ML IV SCH ×3 (02:08→07:08)
[2022-03-21] MEDS: OCTREOTIDE ACETATE 500 MCG in DEXTROSE 5% 100 ML IV SCH (05:05)
[2022-03-21] MEDS: ONDANSETRON INJ 2 MG/ML 2 ML VIAL IV PRN (05:08)
[2022-03-21 06:45] LABS: Basophils # (auto) 0.04 K/uL (0-0.2); Eosinophils # (auto) 0.34 K/uL (0-0.50); Eosinophils % (auto) 8.7 %; Hematocrit (blood only) 25.3 % (40.1-51.0); Hemoglobin 8.5 g/dl (14.0-18.0); Immature Granulocytes # (auto) 0.01 K/uL (0.00-0.02); Immature Granulocytes % (auto) 0.3 %; Lymphocytes # (auto) 0.82 K/uL (1.2-3.4); Mean Corpuscular Hemoglobin 34.3 pg (25.0-34.0); Mean Corpuscular Hgb Conc 33.6 g/dL (32.0-36.0); Mean Platelet Volume 9.3 fL (9.4-12.4); Monocytes # (auto) 0.57 K/uL (0.24-0.82); Monocytes % (auto) 14.6 %; Neutrophils # (auto) 2.12 K/uL (1.4-6.5); Neutrophils % (auto) 54.4 %; Platelet Count 65 K/uL (130-400); RDW Coefficient of Variation 23.1 % (11.5-14.5); RDW Standard Deviation 84.3 fL (36.4-46.3); Red Blood Count 2.48 M/uL (4.63-6.08)
[2022-03-21 06:47] LABS: Calcium 8.9 mg/dl (8.5-10.1); Est GFR (African American) 38.9 ml/min; Est GFR (Non-African American) 33.5 ml/min
[2022-03-21 07:14] LABS: Anisocytosis Present; Polychromasia 1+; Tear Drop Cells 1+
[2022-03-21] MEDS ORDERED: LIDOCAINE 2% MPF LOCAL 5 ML VIAL INFIL ONE (12:29)
[2022-03-21] MEDS ORDERED: PHENYLEPHRINE 100MCG/ML 5ML SYR ONE (12:29)
[2022-03-21] MEDS ORDERED: PROPOFOL IV EMULSION 10 MG/ML 20 ML VIAL IV ONE (12:29)
--- NOTE | 2022-03-21 12:33 | Gastrointestinal Consultation ---
Date of Consultation March 21, 2022 Assessment & Plan (1) 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: (2) Anemia: (3) Melena: Sebastian Quiñonez is a 66-year-old male with a PMHx of SERRANO cirrhosis (MELD 22), complicated by portal hypertensive gastropathy, varices, CKD, GERD, GI bleed, pancytopenia, SVT, and hypertension who presented yesterday w symptomatic anemia and melena. Last EGD done about a month ago showing grade 1 esophageal varices without bleeding and portal hypertensive gastropathy. Suspect he may have oozing from portal hypertensive gastropathy instead of variceal bleeding. - Keep NPO - EGD eval today by Dr. Espitia - PPI gtt, Octreotide gtt, Ceftriaxone IV - Monitor blood ct and transfuse prn - F/U OP Hepatology visit already scheduled with Dr. Fernandez on 03/30/2022 Supervising Physician Co-Signing Physician Notes Sebastian Quiñonez is a 66-year-old male with a PMH of decompensated SERRANO cirrhosis c/b bleeding PHG, HE, ascites, and non-bleeding EV, CKD, GERD, pancytopenia, SVT, and anemia who presented with melena. He has had multiple admission for melena/anemia. last EGD in 01/2022 with small non-bleeding EV that did not require banding and severe PHG felt to be the source of anemia and melena. Hgb on admission 8 which is around baseline but he recieved 2 units PRBC and repeat is only 8.5 so will plan on EGD today for further evaluation. As his varices were small last month and he is hemodynamically stable I suspect he likely has bleeding/oozing PHG causing his melena so will plan for EGD today to see if there are any target lesions for APC or other source of bleeding. Continue IV PPI BID, IV octreotide gtt for now until bleeding varices are ruled out, and IV ceftriaxone for SBP prophylaxis. MELD-Na is 22 today. Obtain daily MELD labs. 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 Fernandez) on discharge. On exam today patient's abdomen is nontender without any appreciable ascites. No asterixis on exam. AAOx3. No LE edema. Luda Espitia, DO Gastroenterology and Hepatology History of Present Illness Reason for Consultation: UGI bleed Requesting Physician: Dr Soren Martinez Attending Physician: Dr Luda Espitia History of Present Illness Sebastian Quiñonez is a 66-year-old male with a PMHx of SERRANO cirrhosis, complicated by portal hypertensive gastropathy, varices, CKD, GERD, GI bleed, pancytopenia, SVT, and hypertension who presented yesterday w weakness, SHAW, light headedness, dark tarry stool x4 episodes. He denies any associated symptoms including fevers, chills, chest pain, abdominal pain, nausea or vomiting. Since has been admitted he had about 2 more tarry bowel movements. None overnight. His blood count upon evaluation was found to have a hemoglobin of 8 which is at his baseline. He was given 2 units of PRBC transfusion, blood count this morning with hemoglobin of 8.5. FOBT was positive. Patient denies taking any blood thinners, aspirin or any [id number] NSAIDs. His last EGD was done about 1 month ago which showed grade 1 varices without any bleeding, and portal hypertensive gastropathy. Last colonoscopy was done in August 2021 showing adenomatous colon polyps. Allergies Allergy/AdvReac Type Severity Reaction Status Date / Time tamsulosin Allergy Intermediate HIVES Verified 03/21/22 11:40 etanercept [From Enbrel] AdvReac Intermediate Increased Verified 03/21/22 11:40 infections Home Medications Medication Instructions Recorded Confirmed Type betamethasone dipropionate 0.05 % 1 applic topical DIRECTED PRN 05/10/21 03/20/22 History topical ointment Skin Irritation cholecalciferol (vitamin D3) 50 50 mcg PO QAM #90 caps 05/15/21 03/20/22 Rx mcg (2,000 unit) capsule lactulose 10 gram/15 mL oral 20 g (30 mL) PO BID #946 mL 09/19/21 03/20/22 Rx solution vitamin B complex 1 tab PO DAILY 10/23/21 03/20/22 History adalimumab 40 mg/0.4 mL 40 mg (0.4 mL) subcut Q14D #2 ea 01/03/22 03/20/22 Rx subcutaneous pen kit (Humira(CF) Pen) rifaximin 550 mg tablet (Xifaxan) 550 mg PO BID #60 tabs 01/16/22 03/20/22 Rx midodrine 5 mg tablet 5 mg PO TID #90 tabs 02/13/22 03/20/22 Rx darbepoetin coretta in polysorbat 60 60 mcg (0.3 mL) subcut .COMPLEX #4 02/22/22 03/20/22 Rx mcg/0.3 mL in polysorbate SYRINGES injection syringe (Aranesp) pantoprazole 20 mg tablet,delayed 20 mg PO DAILY #90 tabs 03/08/22 03/20/22 Rx release (Protonix) furosemide 20 mg tablet 40 mg PO DAILY #360 tabs 03/16/22 03/20/22 Rx potassium chloride 10 mEq 10 meq PO DAILY #90 caps 03/16/22 03/20/22 Rx capsule,extended release spironolactone 50 mg tablet 25 mg PO DAILY 03/20/22 03/20/22 History Patient History Medical History Ascites Cervical disc disease CKD (chronic kidney disease), stage III Depression GAVE (gastric antral vascular ectasia) Per records GERD (gastroesophageal reflux disease) History of herniated intervertebral disc lumbar area History of SCC (squamous cell carcinoma) of skin S/p removal- follows with derm Hx of blood clots 06/2021 @ [facility]- pt reports blood clot in left arm around IV site after being discharged from hospital- no meds due to current blood loss issue- warm compresses to site per pt- 2 ultrasounds done - no current issues Hypertension Hypothyroidism 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 Lumbar disc disease Oral mucositis On mouthwash daily- no recent issues Portal hypertensive gastropathy Psoriasis Psoriatic arthritis PVT (portal vein thrombosis) denies Spinal stenosis EPIDURAL INJECTIONS IN PAST FOR PAIN RELIEF TMJ arthralgia Urinary retention Urinary tract infection Wide-complex tachycardia ON CARDVEDILOL-F/U DR VANESSA LAST VISIT<1 YR AGO Surgical History H/O foot surgery excision of neuroma b/l feet History of appendectomy History of arthroscopy RT KNEE History of cataract surgery RT/LEFT History of cholecystectomy History of esophagogastroduodenoscopy (EGD) History of esophagogastroduodenoscopy (EGD) 02/08/22 Dr. Sara Cloud- EGD- Grade I esophageal varices, Portal hypertensive gastropathy History of herniorrhaphy right inguinal History of lithotripsy History of liver biopsy History of repair of rotator cuff RT/LEFT History of tooth extraction History of urologic surgery Urethral reconstruction 4 years ago at [facility] Nausea and vomiting after administration of anesthetic agent S/P colonoscopy S/P epidural steroid injection S/P orchiectomy Right age 9 for UDT S/P urological surgery (2018) BMG urethroplasty-[facility] Suprapubic catheter AND REMOVAL Family History Grandmother (Maternal) Diabetes Father Renal cancer Mother Aortic aneurysm Denies family history of Ovarian cancer Prostate cancer Myocardial infarction Breast cancer Colorectal cancer Social History Smoking Status: Never smoker Second Hand Exposure: No; Hx Alcohol Use: No Hx Substance Use: No Preferred Language: Chinese Communication Ability: Effective Visual Impairment: No Limitations Hearing Ability: Hard of Hearing Electrical/Instrument Technician Required: No Beliefs That Will Affect Care: None marital status: / Current Living Situation: Family Current Living Situation Comment: Lives with son current occupational status: retired How many Children do You have: 1 Other Information That Helps Us Care for You: No Feels Safe at Home: Yes Safety Concerns: Feels Safe At This Time Diet Comment: regular caffeine: Yes during the past year weight has: decreased > 10 lbs Dental Care, Regularly: No Physical Activity Frequency: Other Physical Activity Frequency Comment: does all housework/outside work and cuts wood Seatbelt Use: never Sunscreen Use: No Assistive Devices: Cane and Walker Review of Systems Review of Systems: All systems reviewed & are unremarkable except as noted in HPI & below Physical Exam Constitutional: WD/WN, vitals as above well groomed, cooperative and comfortable Eyes: PERRL, conjunctivae normal, anicteric sclerae ENMT: external ear and nose normal, oropharynx normal Respiratory: normal respiratory effort, lungs clear to auscultation Cardiovascular: RRR, no murmur, no edema Gastrointestinal (Abdomen): normal bowel sounds, soft, nontender, no hepatosplenomegaly Skin: no rashes, warm and dry no jaundice Neurologic: Motor/Sensory: no asterixis Psychiatric: A+Ox3, euthymic affect Lymphatic: no lymphedema Results & Data ([facility]) Vital Signs (Past 12 Hours) Vital Signs Temp Pulse Pulse Resp BP Pulse Ox O2 Del Method 03/21/22 08:31 84 03/21/22 08:04 36.5 C 91 H 18 98/62 L 97 Room Air 03/21/22 06:59 36.6 C 91 H 20 117/79 97 Room Air 03/21/22 03:34 36.6 C 81 18 123/64 97 Room Air
--- NOTE | 2022-03-21 12:35 | Anesthesiology Consultation ---
Date of Service March 21, 2022 Assessment & Plan (1) Encounter for pre-operative examination: Chart Review Chart Review: Acceptable Risk for Surgery and Patient NOT seen in Pre Admission Testing Consults Requested none History Surgery Operation Date: 03/21/22 17:10 Proposed Procedures p Esophagogastroduodenoscopy Nupur Espitia, Height/Weight Height: 5 ft 9 in Weight: 130.7 kg Allergies Allergy/AdvReac Type Severity Reaction Status Date / Time tamsulosin Allergy Intermediate HIVES Verified 03/20/22 15:47 etanercept [From Enbrel] AdvReac Intermediate Increased Verified 03/20/22 15:47 infections Medications Home Medications Medication Instructions Recorded Confirmed Last Taken betamethasone dipropionate 0.05 % 1 applic topical DIRECTED PRN 05/10/21 03/20/22 Unknown topical ointment Skin Irritation cholecalciferol (vitamin D3) 50 50 mcg PO QAM #90 caps 05/15/21 03/20/22 02/07/22 mcg (2,000 unit) capsule lactulose 10 gram/15 mL oral 20 g (30 mL) PO BID #946 mL 09/19/21 03/20/22 Unkno wn solution vitamin B complex 1 tab PO DAILY 10/23/21 03/20/22 02/07/22 adalimumab 40 mg/0.4 mL 40 mg (0.4 mL) subcut Q14D #2 ea 01/03/22 03/20/22 03/07/22 subcutaneous pen kit (Humira(CF) Pen) rifaximin 550 mg tablet (Xifaxan) 550 mg PO BID #60 tabs 01/16/22 03/20/22 02/07/22 08:00 midodrine 5 mg tablet 5 mg PO TID #90 tabs 02/13/22 03/20/22 Unknown darbepoetin coretta in polysorbat 60 60 mcg (0.3 mL) subcut .COMPLEX #4 02/22/22 03/20/22 Unknown mcg/0.3 mL in polysorbate SYRINGES injection syringe (Aranesp) pantoprazole 20 mg tablet,delayed 20 mg PO DAILY #90 tabs 03/08/22 03/20/22 Unknown release (Protonix) furosemide 20 mg tablet 40 mg PO DAILY #360 tabs 03/16/22 03/20/22 Unknown potassium chloride 10 mEq 10 meq PO DAILY #90 caps 03/16/22 03/20/22 Unknown capsule,extended release spironolactone 50 mg tablet 25 mg PO DAILY 03/20/22 03/20/22 Unknown Active Medications Generic Name Dose Route Start Last Admin Trade Name Freq PRN Reason Stop Dose Admin Pantoprazole Sodium 40 mg/ 100 mls @ 20 mls/hr 03/20/22 13:00 03/21/22 07:08 Dextrose IV 04/19/22 12:59 8 mg/hr Q5H LUZ 20 mls/hr Administration 8 MG/HR Octreotide Acetate 500 mcg/ 100.5 mls @ 10.05 mls/hr 03/20/22 13:00 03/21/22 05:05 Dextrose IV 04/19/22 12:59 50 mcg/hr .Q10H LUZ 10.1 mls/hr Administration 50 MCG/HR Ondansetron HCl 4 mg 03/20/22 20:19 03/21/22 05:08 Ondansetron Inj 2 Mg/Ml 2 Ml Vial IV 04/19/22 20:18 4 mg Q6H PRN Administration Nausea And Vomiting Past Medical History Medical History Ascites Cervical disc disease CKD (chronic kidney disease), stage III Depression GAVE (gastric antral vascular ectasia) Per records GERD (gastroesophageal reflux disease) History of herniated intervertebral disc lumbar area History of SCC (squamous cell carcinoma) of skin S/p removal- follows with derm Hx of blood clots 06/2021 @ [facility] [place]- pt reports blood clot in left arm around IV site after being discharged from hospital- no meds due to current blood loss issue- warm compresses to site per pt- 2 ultrasounds done - no current issues Hypertension Hypothyroidism 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 Lumbar disc disease Oral mucositis On mouthwash daily- no recent issues Portal hypertensive gastropathy Psoriasis Psoriatic arthritis PVT (portal vein thrombosis) denies Spinal stenosis EPIDURAL INJECTIONS IN PAST FOR PAIN RELIEF TMJ arthralgia Urinary retention Urinary tract infection Wide-complex tachycardia ON CARDVEDILOL-F/U DR VANESSA LAST VISIT<1 YR AGO Past Family History Family History Grandmother (Maternal) Diabetes Father Renal cancer Mother Aortic aneurysm Denies family history of Ovarian cancer Prostate cancer Myocardial infarction Breast cancer Colorectal cancer Past Surgical History Surgical History H/O foot surgery excision of neuroma b/l feet History of appendectomy History of arthroscopy RT KNEE History of cataract surgery RT/LEFT History of cholecystectomy History of esophagogastroduodenoscopy (EGD) History of esophagogastroduodenoscopy (EGD) 02/08/22 Dr. Sara Cloud- EGD- Grade I esophageal varices, Portal hypertensive gastropathy History of herniorrhaphy right inguinal History of lithotripsy History of liver biopsy History of repair of rotator cuff RT/LEFT History of tooth extraction History of urologic surgery Urethral reconstruction 4 years ago at [facility] Nausea and vomiting after administration of anesthetic agent S/P colonoscopy S/P epidural steroid injection S/P orchiectomy Right age 9 for UDT S/P urological surgery (2018) BMG urethroplasty-[facility] Suprapubic catheter AND REMOVAL Social History Smoking Status: Never smoker Hx Alcohol Use: No Hx Substance Use: No substance use type: does not use Physical Exam Vital Signs Last Vital Signs Temp 97.7 F 03/21/22 08:04 Pulse 84 03/21/22 08:31 Resp 18 03/21/22 08:04 BP 98/62 L 03/21/22 08:04 Pulse Ox 97 03/21/22 08:04 O2 Del Method 03/21/22 08:04 O2 Flow Rate 20 03/20/22 16:09 Testing Laboratory Results 03/21/22 05:52 03/21/22 05:52 PT 14.5 Seconds (9.0-12.0) H 03/20/22 12:47 INR 1.4 (0.9-1.1) H 03/20/22 12:47 APTT 23.7 Seconds (21.0-31.0) 03/20/22 12:47 Blood Type O Positive 03/20/22 12:44 Antibody Screen NEGATIVE 03/20/22 12:44 Electrocardiogram Date: 03/20/22 Findings: + NSR @ (tachy with PVCs) Echocardiogram Date: 01/15/19 EF: 55-60 LV Function: normal
--- NOTE | 2022-03-21 12:39 | Anesthesiology Consultation ---
Date of Service March 21, 2022 Assessment & Plan (1) Encounter for pre-operative examination: Chart Review Chart Review: Acceptable Risk for Surgery and Patient NOT seen in Pre Admission Testing Consults Requested none History Surgery Operation Date: 03/21/22 17:10 Proposed Procedures p Esophagogastroduodenoscopy Nupur Espitia, Height/Weight Height: 5 ft 9 in Weight: 130.7 kg Allergies Allergy/AdvReac Type Severity Reaction Status Date / Time tamsulosin Allergy Intermediate HIVES Verified 03/21/22 11:40 etanercept [From Enbrel] AdvReac Intermediate Increased Verified 03/21/22 11:40 infections Medications Home Medications Medication Instructions Recorded Confirmed Last Taken betamethasone dipropionate 0.05 % 1 applic topical DIRECTED PRN 05/10/21 03/20/22 Unknown topical ointment Skin Irritation cholecalciferol (vitamin D3) 50 50 mcg PO QAM #90 caps 05/15/21 03/20/22 02/07/22 mcg (2,000 unit) capsule lactulose 10 gram/15 mL oral 20 g (30 mL) PO BID #946 mL 09/19/21 03/20/22 Unkno wn solution vitamin B complex 1 tab PO DAILY 10/23/21 03/20/22 02/07/22 adalimumab 40 mg/0.4 mL 40 mg (0.4 mL) subcut Q14D #2 ea 01/03/22 03/20/22 03/07/22 subcutaneous pen kit (Humira(CF) Pen) rifaximin 550 mg tablet (Xifaxan) 550 mg PO BID #60 tabs 01/16/22 03/20/22 02/07/22 08:00 midodrine 5 mg tablet 5 mg PO TID #90 tabs 02/13/22 03/20/22 Unknown darbepoetin coretta in polysorbat 60 60 mcg (0.3 mL) subcut .COMPLEX #4 02/22/22 03/20/22 Unknown mcg/0.3 mL in polysorbate SYRINGES injection syringe (Aranesp) pantoprazole 20 mg tablet,delayed 20 mg PO DAILY #90 tabs 03/08/22 03/20/22 Unknown release (Protonix) furosemide 20 mg tablet 40 mg PO DAILY #360 tabs 03/16/22 03/20/22 Unknown potassium chloride 10 mEq 10 meq PO DAILY #90 caps 03/16/22 03/20/22 Unknown capsule,extended release spironolactone 50 mg tablet 25 mg PO DAILY 03/20/22 03/20/22 Unknown Active Medications Generic Name Dose Route Start Last Admin Trade Name Freq PRN Reason Stop Dose Admin Pantoprazole Sodium 40 mg/ 100 mls @ 20 mls/hr 03/20/22 13:00 03/21/22 07:08 Dextrose IV 04/19/22 12:59 8 mg/hr Q5H LUZ 20 mls/hr Administration 8 MG/HR Octreotide Acetate 500 mcg/ 100.5 mls @ 10.05 mls/hr 03/20/22 13:00 03/21/22 05:05 Dextrose IV 04/19/22 12:59 50 mcg/hr .Q10H LUZ 10.1 mls/hr Administration 50 MCG/HR Ondansetron HCl 4 mg 03/20/22 20:19 03/21/22 05:08 Ondansetron Inj 2 Mg/Ml 2 Ml Vial IV 04/19/22 20:18 4 mg Q6H PRN Administration Nausea And Vomiting Past Medical History Medical History Ascites Cervical disc disease CKD (chronic kidney disease), stage III Depression GAVE (gastric antral vascular ectasia) Per records GERD (gastroesophageal reflux disease) History of herniated intervertebral disc lumbar area History of SCC (squamous cell carcinoma) of skin S/p removal- follows with derm Hx of blood clots 06/2021 @ [facility]- pt reports blood clot in left arm around IV site after being discharged from hospital- no meds due to current blood loss issue- warm compresses to site per pt- 2 ultrasounds done - no current issues Hypertension Hypothyroidism 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 Lumbar disc disease Oral mucositis On mouthwash daily- no recent issues Portal hypertensive gastropathy Psoriasis Psoriatic arthritis PVT (portal vein thrombosis) denies Spinal stenosis EPIDURAL INJECTIONS IN PAST FOR PAIN RELIEF TMJ arthralgia Urinary retention Urinary tract infection Wide-complex tachycardia ON CARDVEDILOL-F/U DR VANESSA LAST VISIT<1 YR AGO Past Family History Family History Grandmother (Maternal) Diabetes Father Renal cancer Mother Aortic aneurysm Denies family history of Ovarian cancer Prostate cancer Myocardial infarction Breast cancer Colorectal cancer Past Surgical History Surgical History H/O foot surgery excision of neuroma b/l feet History of appendectomy History of arthroscopy RT KNEE History of cataract surgery RT/LEFT History of cholecystectomy History of esophagogastroduodenoscopy (EGD) History of esophagogastroduodenoscopy (EGD) 02/08/22 Dr. Sara Cloud- EGD- Grade I esophageal varices, Portal hypertensive gastropathy History of herniorrhaphy right inguinal History of lithotripsy History of liver biopsy History of repair of rotator cuff RT/LEFT History of tooth extraction History of urologic surgery Urethral reconstruction 4 years ago at [facility] Nausea and vomiting after administration of anesthetic agent S/P colonoscopy S/P epidural steroid injection S/P orchiectomy Right age 9 for UDT S/P urological surgery (2018) [facility] urethroplasty-[facility] Suprapubic catheter AND REMOVAL Social History Smoking Status: Never smoker Hx Alcohol Use: No Hx Substance Use: No substance use type: does not use Physical Exam Vital Signs Last Vital Signs Temp 97.7 F 03/21/22 08:04 Pulse 84 03/21/22 08:31 Resp 18 03/21/22 08:04 BP 98/62 L 03/21/22 08:04 Pulse Ox 97 03/21/22 08:04 O2 Del Method 03/21/22 08:04 O2 Flow Rate 20 03/20/22 16:09 Testing Laboratory Results 03/21/22 05:52 03/21/22 05:52 PT 14.5 Seconds (9.0-12.0) H 03/20/22 12:47 INR 1.4 (0.9-1.1) H 03/20/22 12:47 APTT 23.7 Seconds (21.0-31.0) 03/20/22 12:47 Blood Type O Positive 03/20/22 12:44 Antibody Screen NEGATIVE 03/20/22 12:44 Electrocardiogram Date: 03/20/22 Findings: + NSR @ (tachy with PVCs) Echocardiogram Date: 01/15/19 EF: 55-60 LV Function: normal
--- NOTE | 2022-03-21 12:40 | Anesthesiology Consultation ---
Date of Service March 21, 2022 Assessment & Plan (1) Encounter for pre-operative examination: Chart Review Chart Review: Acceptable Risk for Surgery and Patient NOT seen in Pre Admission Testing Consults Requested none History Surgery Operation Date: 03/21/22 17:10 Proposed Procedures p Esophagogastroduodenoscopy Nupur Espitia, Height/Weight Height: 5 ft 9 in Weight: 130.7 kg Allergies Allergy/AdvReac Type Severity Reaction Status Date / Time tamsulosin Allergy Intermediate HIVES Verified 03/21/22 11:40 etanercept [From Enbrel] AdvReac Intermediate Increased Verified 03/21/22 11:40 infections Medications Home Medications Medication Instructions Recorded Confirmed Last Taken betamethasone dipropionate 0.05 % 1 applic topical DIRECTED PRN 05/10/21 03/20/22 Unknown topical ointment Skin Irritation cholecalciferol (vitamin D3) 50 50 mcg PO QAM #90 caps 05/15/21 03/20/22 02/07/22 mcg (2,000 unit) capsule lactulose 10 gram/15 mL oral 20 g (30 mL) PO BID #946 mL 09/19/21 03/20/22 Unkno wn solution vitamin B complex 1 tab PO DAILY 10/23/21 03/20/22 02/07/22 adalimumab 40 mg/0.4 mL 40 mg (0.4 mL) subcut Q14D #2 ea 01/03/22 03/20/22 03/07/22 subcutaneous pen kit (Humira(CF) Pen) rifaximin 550 mg tablet (Xifaxan) 550 mg PO BID #60 tabs 01/16/22 03/20/22 02/07/22 08:00 midodrine 5 mg tablet 5 mg PO TID #90 tabs 02/13/22 03/20/22 Unknown darbepoetin coretta in polysorbat 60 60 mcg (0.3 mL) subcut .COMPLEX #4 02/22/22 03/20/22 Unknown mcg/0.3 mL in polysorbate SYRINGES injection syringe (Aranesp) pantoprazole 20 mg tablet,delayed 20 mg PO DAILY #90 tabs 03/08/22 03/20/22 Unknown release (Protonix) furosemide 20 mg tablet 40 mg PO DAILY #360 tabs 03/16/22 03/20/22 Unknown potassium chloride 10 mEq 10 meq PO DAILY #90 caps 03/16/22 03/20/22 Unknown capsule,extended release spironolactone 50 mg tablet 25 mg PO DAILY 03/20/22 03/20/22 Unknown Active Medications Generic Name Dose Route Start Last Admin Trade Name Freq PRN Reason Stop Dose Admin Pantoprazole Sodium 40 mg/ 100 mls @ 20 mls/hr 03/20/22 13:00 03/21/22 07:08 Dextrose IV 04/19/22 12:59 8 mg/hr Q5H LUZ 20 mls/hr Administration 8 MG/HR Octreotide Acetate 500 mcg/ 100.5 mls @ 10.05 mls/hr 03/20/22 13:00 03/21/22 05:05 Dextrose IV 04/19/22 12:59 50 mcg/hr .Q10H LUZ 10.1 mls/hr Administration 50 MCG/HR Ondansetron HCl 4 mg 03/20/22 20:19 03/21/22 05:08 Ondansetron Inj 2 Mg/Ml 2 Ml Vial IV 04/19/22 20:18 4 mg Q6H PRN Administration Nausea And Vomiting NPO Date Last Intake of Fluids: 03/20/22 Time Last Intake of Fluids: 11:00 Date Last Intake of Solids: 03/20/22 Time Last Intake of Solids: 11:00 Past Medical History Medical History Ascites Cervical disc disease CKD (chronic kidney disease), stage III Depression GAVE (gastric antral vascular ectasia) Per records GERD (gastroesophageal reflux disease) History of herniated intervertebral disc lumbar area History of SCC (squamous cell carcinoma) of skin S/p removal- follows with derm Hx of blood clots 06/2021 @ [facility]- pt reports blood clot in left arm around IV site after being discharged from hospital- no meds due to current blood loss issue- warm compresses to site per pt- 2 ultrasounds done - no current issues Hypertension Hypothyroidism 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 Lumbar disc disease Oral mucositis On mouthwash daily- no recent issues Portal hypertensive gastropathy Psoriasis Psoriatic arthritis PVT (portal vein thrombosis) denies Spinal stenosis EPIDURAL INJECTIONS IN PAST FOR PAIN RELIEF TMJ arthralgia Urinary retention Urinary tract infection Wide-complex tachycardia ON CARDVEDILOL-F/U DR VANESSA LAST VISIT<1 YR AGO Past Family History Family History Grandmother (Maternal) Diabetes Father Renal cancer Mother Aortic aneurysm Denies family history of Ovarian cancer Prostate cancer Myocardial infarction Breast cancer Colorectal cancer Past Surgical History Surgical History H/O foot surgery excision of neuroma b/l feet History of appendectomy History of arthroscopy RT KNEE History of cataract surgery RT/LEFT History of cholecystectomy History of esophagogastroduodenoscopy (EGD) History of esophagogastroduodenoscopy (EGD) 02/08/22 Dr. Sara Cloud- EGD- Grade I esophageal varices, Portal hypertensive gastropathy History of herniorrhaphy right inguinal History of lithotripsy History of liver biopsy History of repair of rotator cuff RT/LEFT History of tooth extraction History of urologic surgery Urethral reconstruction 4 years ago at [facility] Nausea and vomiting after administration of anesthetic agent S/P colonoscopy S/P epidural steroid injection S/P orchiectomy Right age 9 for UDT S/P urological surgery (2018) [facility] urethroplasty-[facility] Suprapubic catheter AND REMOVAL Social History Smoking Status: Never smoker Hx Alcohol Use: No Hx Substance Use: No substance use type: does not use Physical Exam Vital Signs Last Vital Signs Temp 97.5 F L 03/21/22 11:43 Pulse 94 H 03/21/22 11:43 Resp 16 03/21/22 11:43 BP 116/71 03/21/22 11:43 Pulse Ox 98 03/21/22 11:43 O2 Del Method 03/21/22 11:43 O2 Flow Rate 20 03/20/22 16:09 Testing Laboratory Results 03/21/22 05:52 03/21/22 05:52 PT 14.5 Seconds (9.0-12.0) H 03/20/22 12:47 INR 1.4 (0.9-1.1) H 03/20/22 12:47 APTT 23.7 Seconds (21.0-31.0) 03/20/22 12:47 Blood Type O Positive 03/20/22 12:44 Antibody Screen NEGATIVE 03/20/22 12:44 Electrocardiogram Date: 03/20/22 Findings: + NSR @ (tachy with PVCs) Echocardiogram Date: 01/15/19 EF: 55-60 LV Function: normal
--- NOTE | 2022-03-21 12:40 | GI REPORT ---
Patient Name: Sebastian Quiñonez Procedure Date: 03/21/2022 12:16 PM Date of : 1955 Admit Type: Inpatient Age: 66 Gender: Male Attending MD: Luda Espitia DO, Procedure: Upper GI endoscopy Providers: Luda Espitia DO Referring MD: Harriet Pepper M.d. Indications: Melena Patient Profile: This is a 66 year old male. Refer to note in patient chart for documentation of history and physical. Medicines: Monitored Anesthesia Care Complications: No immediate complications. Estimated Blood Loss: Estimated blood loss: none. Procedure: Pre-Anesthesia Assessment: - Prior to the procedure, a History and Physical was performed, and patient medications and allergies were reviewed. The risks and benefits of the procedure and the sedation options and risks were discussed with the patient. All questions were answered and informed consent was obtained. Patient identification and proposed procedure were verified by the physician, the nurse and the child welfare worker in the procedure room. Mental Status Examination: alert and oriented. Airway Examination: Mallampati Class II (the uvula but not tonsillar pillars visualized). Respiratory Examination: clear to auscultation. CV Examination: RRR, no murmurs, no S3 or S4. Prophylactic Antibiotics: The patient does not require prophylactic antibiotics. Prior Anticoagulants: The patient has taken no anticoagulant or antiplatelet agents. ASA Grade Assessment: III - A patient with severe systemic disease. After reviewing the risks and benefits, the patient was deemed in satisfactory condition to undergo the procedure. The anesthesia plan was to use monitored anesthesia care (MAC). Immediately prior to administration of medications, the patient was re-assessed for adequacy to receive sedatives. The physical status of the patient was re-assessed after the procedure. After obtaining informed consent, the endoscope was passed under direct vision. Throughout the procedure, the patient's blood pressure, pulse, and oxygen saturations were monitored continuously. The Scope was introduced through the mouth, and advanced to the second part of duodenum. The upper GI endoscopy was accomplished without difficulty. The patient tolerated the procedure well. Findings: The Z-line was regular and was found 39 cm from the incisors. Grade I varices with no bleeding and no stigmata of recent bleeding were found in the lower third of the esophagus. No red cyril signs were present. The exam of the esophagus was otherwise normal. Severe portal hypertensive gastropathy was found in the entire examined stomach. There is no endoscopic evidence of varices in the entire examined stomach. The duodenal bulb and second portion of the duodenum were normal. Impression: - Z-line regular, 39 cm from the incisors. - Grade I and small esophageal varices with no bleeding and no stigmata of recent bleeding. - Severe portal hypertensive gastropathy with contact bleeding. No isolated spots to treat with APC. No evidence of old or fresh blood on exam but suspect melena was related to PHG. - Normal duodenal bulb and second portion of the duodenum. - No specimens collected. Recommendation: - Return patient to hospital [facility] for ongoing care. - Resume previous diet. - Continue present medications. - Ok to stop octreotide gtt as no evidenve of variceal bleeding. - His ongoing, intermittent bleeding/melena is related to severe PHG with oozing as seen on multiple prior endoscopies. There were no isolated lesions on endoscopy today to treat with APC and no evidence of old or fresh blood on exam. If he continues to have recurrent readmissions for PHG bleeding would recommend outpatient evaluation for TIPS though certainly risk vs. benefit would need to be discussed as he has a high MELD-Na (22) and hx of HE. Will defer to his outpatient model maker scale. - Continue outpatient PPI 40 mg BID - He is already on NSBB (carvedilol) as outpatient. Would titrate to HR of 55-60 for optimization as patient tolerates which may help with PHG related bleeding. - Continue with IV iron infusions Luda Espitia, 03/21/2022 12:40:44 PM Note Initiated On: 03/21/2022 12:16 PM Number of Addenda: 0 I attest to the content of the Intraoperative Record and orders documented therein, exceptions below {[id number]}
--- NOTE | 2022-03-21 12:41 | History & Physical Report ---
Date of Service March 21, 2022 Assessment & Plan (1) Melena: Plan Will proceed with EGD today. Admission and Anticipated Discharge Date Admission Date: March 20, 2022 History of Present Illness Chief Complaint: here today for EGD for melena. Primary Care Provider: Fiorella Castellano, DO 66 y/o M with decompensated SERRANO cirrhosis c/b ascites, LE edema, PHG, non- bleeding EV, HE here today for EGD with melena. Allergies Allergy/AdvReac Type Severity Reaction Status Date / Time tamsulosin Allergy Intermediate HIVES Verified 03/21/22 11:40 etanercept [From Enbrel] AdvReac Intermediate Increased Verified 03/21/22 11:40 infections Home Medications Medication Instructions Recorded Confirmed Type betamethasone dipropionate 0.05 % 1 applic topical DIRECTED PRN 05/10/21 03/20/22 History topical ointment Skin Irritation cholecalciferol (vitamin D3) 50 50 mcg PO QAM #90 caps 05/15/21 03/20/22 Rx mcg (2,000 unit) capsule lactulose 10 gram/15 mL oral 20 g (30 mL) PO BID #946 mL 09/19/21 03/20/22 Rx solution vitamin B complex 1 tab PO DAILY 10/23/21 03/20/22 History adalimumab 40 mg/0.4 mL 40 mg (0.4 mL) subcut Q14D #2 ea 01/03/22 03/20/22 Rx subcutaneous pen kit (Humira(CF) Pen) rifaximin 550 mg tablet (Xifaxan) 550 mg PO BID #60 tabs 01/16/22 03/20/22 Rx midodrine 5 mg tablet 5 mg PO TID #90 tabs 02/13/22 03/20/22 Rx darbepoetin coretta in polysorbat 60 60 mcg (0.3 mL) subcut .COMPLEX #4 02/22/22 03/20/22 Rx mcg/0.3 mL in polysorbate SYRINGES injection syringe (Aranesp) pantoprazole 20 mg tablet,delayed 20 mg PO DAILY #90 tabs 03/08/22 03/20/22 Rx release (Protonix) furosemide 20 mg tablet 40 mg PO DAILY #360 tabs 03/16/22 03/20/22 Rx potassium chloride 10 mEq 10 meq PO DAILY #90 caps 03/16/22 03/20/22 Rx capsule,extended release spironolactone 50 mg tablet 25 mg PO DAILY 03/20/22 03/20/22 History Past Med/Surg History Medical History Ascites Cervical disc disease CKD (chronic kidney disease), stage III Depression GAVE (gastric antral vascular ectasia) Per records GERD (gastroesophageal reflux disease) History of herniated intervertebral disc lumbar area History of SCC (squamous cell carcinoma) of skin S/p removal- follows with derm Hx of blood clots 06/[address] 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 Lumbar disc disease Oral mucositis On mouthwash daily- no recent issues Portal hypertensive gastropathy Psoriasis Psoriatic arthritis PVT (portal vein thrombosis) denies Spinal stenosis EPIDURAL INJECTIONS IN PAST FOR PAIN RELIEF TMJ arthralgia Urinary retention Urinary tract infection Wide-complex tachycardia ON CARDVEDILOL-F/U DR VANESSA LAST VISIT<1 YR AGO Surgical History H/O foot surgery excision of neuroma b/l feet History of appendectomy History of arthroscopy RT KNEE History of cataract surgery RT/LEFT History of cholecystectomy History of esophagogastroduodenoscopy (EGD) History of esophagogastroduodenoscopy (EGD) 02/08/22 Dr. Sara Cloud- EGD- Grade I esophageal varices, Portal hypertensive gastropathy History of herniorrhaphy right inguinal History of lithotripsy History of liver biopsy History of repair of rotator cuff RT/LEFT History of tooth extraction History of urologic surgery Urethral reconstruction 4 years ago at [facility] Nausea and vomiting after administration of anesthetic agent S/P colonoscopy S/P epidural steroid injection S/P orchiectomy Right age 9 for UDT S/P urological surgery (2018) [facility] [place] urethroplasty-[facility] Suprapubic catheter AND REMOVAL Family History Grandmother (Maternal) Diabetes Father Renal cancer Mother Aortic aneurysm Denies family history of Ovarian cancer Prostate cancer Myocardial infarction Breast cancer Colorectal cancer Social History Smoking Status: Never smoker Second Hand Exposure: No; Hx Alcohol Use: No Hx Substance Use: No Preferred Language: Albanian Communication Ability: Effective Visual Impairment: No Limitations Hearing Ability: Hard of Hearing Dean For [employer] Required: No Beliefs That Will Affect Care: None marital status: / Current Living Situation: Family Current Living Situation Comment: Lives with son current occupational status: retired How many Children do You have: 1 Other Information That Helps Us Care for You: No Feels Safe at Home: Yes Safety Concerns: Feels Safe At This Time Diet Comment: regular caffeine: Yes during the past year weight has: decreased > 10 lbs Dental Care, Regularly: No Physical Activity Frequency: Other Physical Activity Frequency Comment: does all housework/outside work and cuts wood Seatbelt Use: never Sunscreen Use: No Assistive Devices: Cane and Walker Review of Systems All systems reviewed & are unremarkable except as noted in HPI & below Physical Exam Constitutional: WD/WN, vitals as above Eyes: PERRL, conjunctivae normal, anicteric sclerae Respiratory: normal respiratory effort, lungs clear to auscultation Cardiovascular: RRR, no murmur, no edema Gastrointestinal (Abdomen): normal bowel sounds, soft, nontender, no hepatosplenomegaly Skin: 2-3+ LE edema Results & Data ([facility]) Vital Signs (Past 12 Hours) Vital Signs Temp Pulse Pulse Pulse Resp BP Pulse Ox 03/21/22 11:43 36.4 C L 94 H 16 116/71 98 03/21/22 08:31 84 03/21/22 08:04 36.5 C 91 H 18 98/62 L 97 03/21/22 06:59 36.6 C 91 H 20 117/79 97 03/21/22 03:34 36.6 C 81 18 123/64 97 O2 Del Method 03/21/22 11:43 Room Air 03/21/22 08:31 03/21/22 08:04 Room Air 03/21/22 06:59 Room Air 03/21/22 03:34 Room Air Code Status & VTE Plan VTE Prophylaxis Plan VTE Prophylaxis will be ordered: Yes
[2022-03-21] MEDS ORDERED: FUROSEMIDE 40 MG/4 ML VIAL IV ONE (12:45)
--- NOTE | 2022-03-21 13:48 | Anesthesiology Progress Note ---
Date of Service March 21, 2022 Anesthesia Post Procedure Vital Signs Vital Signs: Temp Pulse Pulse Pulse Resp BP BP 03/21/22 13:02 84 16 121/65 03/21/22 12:47 86 16 118/70 03/21/22 12:32 92 H 16 104/63 03/21/22 11:43 97.5 F L 94 H 16 116/71 03/21/22 08:31 84 03/21/22 08:04 97.7 F 91 H 18 98/62 L 03/21/22 06:59 97.9 F 91 H 20 117/79 03/21/22 03:34 97.9 F 81 18 123/64 03/20/22 23:00 98.1 F 84 18 129/73 03/20/22 22:37 97.9 F 87 18 122/76 03/20/22 21:07 97.7 F 84 18 119/74 03/20/22 21:37 97.9 F 91 H 18 112/70 03/20/22 20:52 98.1 F 78 20 105/55 L 03/20/22 20:34 98.2 F 83 20 116/71 03/20/22 18:22 98.1 F 89 18 106/67 03/20/22 18:13 98.1 F 81 18 110/70 03/20/22 17:20 97.9 F 91 H 18 117/71 03/20/22 17:24 03/20/22 17:24 97.9 F 91 H 18 117/71 03/20/22 16:43 97.9 F 100 H 20 92/53 L 03/20/22 16:28 98.2 F 97 H 20 103/59 L 03/20/22 16:09 98.2 F 97 H 20 105/63 Pulse Ox O2 Del Method O2 Flow Rate 03/21/22 13:02 98 Room Air 03/21/22 12:47 95 Room Air 03/21/22 12:32 98 Room Air 03/21/22 11:43 98 Room Air 03/21/22 08:31 03/21/22 08:04 97 Room Air 03/21/22 06:59 97 Room Air 03/21/22 03:34 97 Room Air 03/20/22 23:00 99 03/20/22 22:37 98 03/20/22 21:07 97 03/20/22 21:37 96 03/20/22 20:52 100 03/20/22 20:34 98 03/20/22 18:22 96 03/20/22 18:13 95 03/20/22 17:20 98 03/20/22 17:24 Room Air 03/20/22 17:24 98 Room Air 03/20/22 16:43 99 03/20/22 16:28 97 03/20/22 16:09 99 20 Transfer of Care Handoff Completed per policy Notes Mental Status: alert / awake / arousable and participated in evaluation Patient Amnestic to Procedure: Yes Nausea / Vomiting: adequately controlled Pain: adequately controlled Airway Patency, RR, SpO2: stable & adequate BP & HR: stable & adequate Hydration State: stable & adequate Anesthetic Complications: no major complications apparent and Pt Satisfied with anesthetic care
[2022-03-21] MEDS ORDERED: carvediloL 3.125 MG TAB PO ONE (13:56)
--- NOTE | 2022-03-21 14:04 | Hospitalist Progress Note ---
Date of Service March 21, 2022 Assessment & Plan (1) Acute blood loss anemia: Plan: Acute upper GI bleed severe distress the patient. [place] to be secondary to chronic unstable portal gastropaty Chronic Serrano, S/p transfusion of 2 packed red blood cell units with very little change in hgb Continue PPI bid with no defined culprit lesion, octreotide stopped as no variceal bleeding starting b chinedu for portal hypertension, pt has midodrine on med recc may have had issues with low bp in past. SBP prophylaxis with Rocephin 1 g daily Rifaximin, lactulose restarted Chronic stable cirrhosis 2/2 SERRANO, history of gastropathy LFTs at baseline no score 22 Patient with ascites, nonsevere. History of hypertension chronic stable we will start carvedilol and follow not reinstituting midodrine CKD 3 chronic stable Lasix/spironolactone resume diuretics evening of 03/21 chronic thrombocytopenia, chronic and stable (2) CKD (chronic kidney disease), stage III: (3) GERD (gastroesophageal reflux disease): (4) Hypothyroidism: (5) Portal hypertensive gastropathy: (6) Wide-complex tachycardia: (7) Thrombocytopenia: Admission and Anticipated Discharge Date Admission Date: March 20, 2022 Subjective Patient was seen postprocedure he had no physical complaints. I personally discussed results of the procedure with Dr. Espitia and who has portal gastropathy of his stomach with no culprit lesion of bleeding but diffuse oozing throughout his stomach small esophageal varices were noted also not felt to be bleeding or source of blood loss Physical Exam Physical Exam: In the postanesthesia care unit patient was awake alert appropriate he understood his procedure could tell me the results His cardiac exam was regular his lungs were clear anteriorly and laterally his abdomen was NABS soft nontender nondistended he has some dullness consistent with his mild ascites and he does have hepatomegaly but there is no stigmata of portal hypertension such as caput medusa etc. Results & Data Results & Data ([facility]) Vital Signs (Past 12 Hours) Vital Signs Temp Pulse Pulse Pulse Resp BP Pulse Ox 03/21/22 13:02 84 16 121/65 98 03/21/22 12:47 86 16 118/70 95 03/21/22 12:32 92 H 16 104/63 98 03/21/22 11:43 97.5 F L 94 H 16 116/71 98 03/21/22 08:31 84 03/21/22 08:04 97.7 F 91 H 18 98/62 L 97 03/21/22 06:59 97.9 F 91 H 20 117/79 97 03/21/22 03:34 97.9 F 81 18 123/64 97 O2 Del Method 03/21/22 13:02 Room Air 03/21/22 12:47 Room Air 03/21/22 12:32 Room Air 03/21/22 11:43 Room Air 03/21/22 08:31 03/21/22 08:04 Room Air 03/21/22 06:59 Room Air 03/21/22 03:34 Room Air Diagnostic Findings Reviewed CBC hemoglobin in the 8.5 range after transfusion of 2 units MELD score calculated to 22 Chemistry also reviewed seems to be stable PG Care Time/CCT Total # of Minutes Spent Total Time Spent with Patient: Total time spent is greater than 50% in coordination of care (as documented) at patient's floor/unit and/or counseling patient: Coding Level of Care Code 54191 SUB INP/OBS CARE 3/50MIN Diagnoses Acute blood loss anemia D62 CKD (chronic kidney disease), stage III N18.3 GERD (gastroesophageal reflux disease) K21.9 Hypothyroidism E03.9 Portal hypertensive gastropathy K76.6; K31.89 Wide-complex tachycardia I47.2 Thrombocytopenia D69.6
[2022-03-21] MEDS ORDERED: cefTRIAXone SODIUM 2,000 MG in DEXTROSE 5% 50 ML IV SCH (16:00)
[2022-03-21 16:08] LABS: Hematocrit (blood only) 28.9 % (42.0-52.0); Hemoglobin 9.6 g/dl (14.0-18.0)
[2022-03-21] MEDS: LACTULOSE SYRUP 20 GM/30 ML UDC PO SCH (19:49)
[2022-03-21] MEDS: rifAXIMin 550 MG TABLET PO SCH (19:49)
[2022-03-21] MEDS: PANTOprazole 40 MG TAB PO SCH (19:49)
[2022-03-21] MEDS: carvediloL 3.125 MG TAB PO SCH (19:49)
[2022-03-22] MEDS: carvediloL 3.125 MG TAB PO SCH (08:53)
[2022-03-22] MEDS: rifAXIMin 550 MG TABLET PO SCH (08:53)
[2022-03-22] MEDS: PANTOprazole 40 MG TAB PO SCH (08:54)
[2022-03-22] MEDS ORDERED: FUROSEMIDE 40 MG TAB PO SCH (09:00)
[2022-03-22] MEDS: LACTULOSE SYRUP 20 GM/30 ML UDC PO SCH (10:20)
[2022-03-22] MEDS ORDERED: SPIRONOLACTONE 25 MG TAB PO ONE (11:35)
[2022-03-22] MEDS ORDERED: carvediloL 3.125 MG TAB PO ONE (11:45)
[2022-03-22 11:53] LABS: Albumin Globulin Ratio 0.6 (0.9-2); Albumin Level 1.8 gm/dl (3.4-5.0); BUN Creatinine Ratio 14.3 (10-20); Calcium 8.1 mg/dl (8.5-10.1); Creatinine Clr Calc Pharmacy 47.1 ml/min; Est GFR (African American) 38.2 ml/min; Est GFR (Non-African American) 32.9 ml/min; Potassium 4.5 mmol/L (3.5-5.1); Total Protein 4.8 gm/dl (6.0-8.3)
[2022-03-22 13:13] LABS: Basophils # (auto) 0.05 K/uL (0-0.2); Basophils % (auto) 1.5 %; Eosinophils # (auto) 0.28 K/uL (0-0.50); Eosinophils % (auto) 8.3 %; Hematocrit (blood only) 25.1 % (42.0-52.0); Hemoglobin 8.3 g/dl (14.0-18.0); Immature Granulocytes # (auto) 0.04 K/uL (0.01-0.20); Immature Granulocytes % (auto) 1.2 %; Lymphocytes # (auto) 0.69 K/uL (1.2-3.4); Lymphocytes % (auto) 20.5 %; Mean Corpuscular Hemoglobin 33.5 pg (25.0-34.0); Mean Corpuscular Hgb Conc 33.1 g/dL (32.0-36.0); Mean Corpuscular Volume 101.2 fL (80.0-100.0); Mean Platelet Volume 10.1 fL (9.4-12.4); Monocytes # (auto) 0.62 K/uL (0.11-0.59); Monocytes % (auto) 18.4 %; Neutrophils # (auto) 1.69 K/uL (1.40-6.50); Neutrophils % (auto) 50.1 %; Platelet Count 65 K/uL (130-400); RDW Coefficient of Variation 21.2 % (11.5-14.5); RDW Standard Deviation 78.1 fL (36.4-46.3); Red Blood Count 2.48 M/uL (4.70-6.10); White Blood Count 3.37 K/ul (4.8-10.8)
[2022-03-22 14:22] LABS: Anisocytosis Present; Polychromasia 1+; Tear Drop Cells 1+
[2022-03-22] MEDS ORDERED: carvediloL 6.25 MG TAB PO SCH (21:00)
--- NOTE | 2022-03-23 15:55 | Discharge Summary ---
Date of Service March 22, 2022 Admission HPI Per Admitting Provider 66 y/o M with decompensated HEATON cirrhosis c/b ascites, LE edema, PHG, non- bleeding EV, HE here today for EGD with melena. Principal Diagnosis acute blood loss anemia Discharge Exam atient was awake alert appropriate His cardiac exam was regularRespiratory sounds were clear anteriorly and laterally his abdomen was NABS soft nontender nondistended he has some dullness consistent with his mild ascites and he does have hepatomegaly but there is no stigmata of portal hypertension such as caput medusa etc. Discharge Data Allergies Allergy/AdvReac Type Severity Reaction Status Date / Time tamsulosin Allergy Intermediate HIVES Verified 03/21/22 11:40 etanercept [From Enbrel] AdvReac Intermediate Increased Verified 03/21/22 11:40 infections Consultations 03/20/22 15:22 ED Decision to Admit Stat 03/20/22 17:06 Consult Gastroenterology Routine Procedures Performed Operation Date: 03/21/22 17:10 Actual Procedures p Esophagogastroduodenoscopy - Luda Espitia, Ordered Studies 03/20/22 12:58 CT abd pelvis wo con Stat Hospital Course (1) Acute blood loss anemia: Acute upper GI bleed severe distress the patient. [place] to be secondary to chronic unstable portal gastropaty Chronic [place], S/p transfusion of 2 packed red blood cell units with very little change in hgb Continue PPI bid with no defined culprit lesion, octreotide stopped as no variceal bleeding starting b chinedu for portal hypertension, pt has midodrine on med recc may have had issues with low bp in past. midodrine will be held at discharge. SBP prophylaxis with Rocephin 1 g daily Rifaximin, lactulose restarted Discharge instructions as stated below. Chronic stable cirrhosis 2/2 HEATON, history of gastropathy LFTs at baseline no score 22 Patient with ascites, nonsevere. History of hypertension chronic stable we will start carvedilol and follow not reinstituting midodrine CKD 3 chronic stable Lasix/spironolactone resume diuretics evening of 03/21 chronic thrombocytopenia, chronic and stable (2) CKD (chronic kidney disease), stage III: (3) GERD (gastroesophageal reflux disease): (4) Hypothyroidism: (5) Portal hypertensive gastropathy: (6) Wide-complex tachycardia: (7) Thrombocytopenia: Total Time Total Time Spent Total Time Spent (In Minutes): 32 Discharge Plan Discharge Items Patient Disposition: Home - Self-Care Reason For Visit: UGIB Discharge Diagnosis: Upper GI bleed Activity: Resume your previous activity Non-emergency contact: Primary Care Provider Call non-emergency contact if: you have any medication questions Follow-up/Referrals: Fiorella Castellano DO [Primary Care Provider] - 03/29/22 9:20 am Diet: Low Fat and Low Sodium (2gm) Addtl Attending Provider Instructions: Recommend followup with your PCP in 1-2 weeks. Recommend followup with your liver specialist within 2 weeks. We increased your pantoprazole to 40 mg twice a day We added carvedilol. We stopped midodrine and your Blood pressure has been stable. We cut back on your lasix. If your blood pressure tolerates it, we may consider increasing your spironolactone to 50 mg. Will defer to your PCP Pending Studies at Discharge: No Stand-Alone Forms: [facility] Cess[facility] Medications and DC Order Prescriptions: New pantoprazole 40 mg Tablet,Delayed Release (Dr/Ec) 40 mg PO BID Qty: 60 0RF Continued cholecalciferol (vitamin D3) 50 mcg (2,000 unit) capsule 50 mcg PO QAM Qty: 90 3RF lactulose 10 gram/15 mL solution 20 g PO BID Qty: 946 3RF Rx Instructions: ON HOLD DUE TO LOOSE STOOLS Humira(CF) Pen 40 mg/0.4 mL pen injector kit 40 mg subcut Q14D Qty: 2 5RF Rx Instructions: 03/20/30 THIS MED ON HOLD. Xifaxan 550 mg tablet 550 mg PO BID Qty: 60 5RF potassium chloride 10 mEq capsule, extended release 10 meq PO DAILY Qty: 90 3RF Hold Instructions: Home Medication placed on hold at Doctor's office vitamin B complex Tablet 1 tab PO DAILY Aranesp (in polysorbate) 60 mcg/0.3 mL syringe 60 mcg subcut .COMPLEX Qty: 4 5RF Rx Instructions: Q weekly until Hgb >9. Then resume, Q other week. Hold for Hgb >10. betamethasone dipropionate 0.05 % ointment 1 applic topical DIRECTED PRN (Reason: Skin Irritation) Rx Instructions: Apply to areas of the trunk and extremities twice daily x 2 weeks as directed. spironolactone 50 mg tablet 25 mg PO DAILY Changed furosemide 20 mg tablet 20 mg PO DAILY Qty: 360 2RF Discontinued midodrine 5 mg tablet 5 mg PO TID Qty: 90 0RF Rx Instructions: do not give last dose of day after 8M or within 4 hrs of bedtime pantoprazole [Protonix] 20 mg tablet,delayed release (DR/EC) 20 mg PO DAILY Qty: 90 3RF No Action midodrine 5 mg tablet 5 mg PO TID Qty: 90 0RF Rx Instructions: do not give last dose of day after 8M or within 4 hrs of bedtime Discharge Orders: Discharge Order (Routine); Ordered 03/22/22 Ordered By: Lamine Davis Admission Data Admit Date/Time: 03/20/22 15:33 Attending Provider: Lamine Davis Admit Provider: Thaddeus Taylor Primary Care Provider: Fiorella Castellano Other Providers: Thaddeus Taylor ; Luda Espitia ; Heath Iraheta [facility] Other Interventions: Discharge Summary Assessment (RN) Last Done: 03/22/22 13:17 Coding Level of Care Code HOSP INP/OBS DISCH >30 MIN Diagnoses Acute blood loss anemia D62 CKD (chronic kidney disease), stage III N18.3 GERD (gastroesophageal reflux disease) K21.9 Hypothyroidism E03.9 Portal hypertensive gastropathy K76.6; K31.89 Wide-complex tachycardia I47.2 Thrombocytopenia D69.6
== END 2022-03-22 13:42 | disposition home or self-care (01) ==
LOC: ED 12:31 → 4W 15:33 → INTOOBSV 15:33 → SUATTDRO 15:33 → 4W 17:50

== ENCOUNTER 2022-05-23 11:15 | Inpatient (IN) ==
--- NOTE | 2022-05-23 12:06 | Emergency Department Note ---
History of Present Illness General Chief complaint: Weakness Stated complaint: FALL, HYPOTENSION Time Seen by Provider: 05/23/22 11:40 History of Present Illness Provider complaint: Fall Maximum Pain Intensity: 7 59-year-old male presents emergency department for fall dizziness and weakness. Patient states he was seen in the emergency department last night and he states that they wanted the patient to stay in the hospital but he refused. He states when he got home he got very dizzy and fell backwards. He states he is having pain in his neck and lower back. Patient is not on any blood thinners. Patient states he was on the ground for an extended period of time. Home Medications Medication Instructions Recorded Confirmed Type betamethasone dipropionate 0.05 % 1 applic topical DIRECTED PRN 05/10/21 05/23/22 History topical ointment Skin Irritation cholecalciferol (vitamin D3) 50 50 mcg PO QAM #90 caps 05/15/21 05/23/22 Rx mcg (2,000 unit) capsule lactulose 10 gram/15 mL oral 20 g (30 mL) PO BID #946 mL 09/19/21 05/23/22 Rx solution vitamin B complex 1 tab PO DAILY 10/23/21 05/23/22 History adalimumab 40 mg/0.4 mL 40 mg (0.4 mL) subcut Q14D #2 ea 01/03/22 05/23/22 Rx subcutaneous pen kit (Humira(CF) Pen) rifaximin 550 mg tablet (Xifaxan) 550 mg PO BID #60 tabs 01/16/22 05/23/22 Rx potassium chloride 10 mEq 10 meq PO DAILY #90 caps 03/16/22 05/23/22 Rx capsule,extended release spironolactone 50 mg tablet 25 mg PO DAILY 03/20/22 05/23/22 History furosemide 20 mg tablet 20 mg PO BID 05/03/22 05/23/22 History midodrine 5 mg tablet 5 mg PO TID #180 tabs 05/03/22 05/23/22 Rx pantoprazole 40 mg tablet,delayed 40 mg PO BID #60 tabs 05/16/22 05/23/22 Rx release darbepoetin coretta in polysorbat 100 100 mcg subcut .COMPLEX PRN 05/23/22 05/23/22 History mcg/0.5 mL in polysorbate NEEDED injection syringe Allergies Allergy/AdvReac Type Severity Reaction Status Date / Time tamsulosin Allergy Intermediate HIVES Verified 05/23/22 13:37 etanercept [From Enbrel] AdvReac Intermediate Increased Verified 05/23/22 13:37 infections Past Med/Surg History Medical History Ascites Cervical disc disease CKD (chronic kidney disease), stage III Depression GAVE (gastric antral vascular ectasia) Per records GERD (gastroesophageal reflux disease) History of herniated intervertebral disc lumbar area History of SCC (squamous cell carcinoma) of skin S/p removal- follows with derm Hx of blood clots 06/2021 @ [facility]- pt reports blood clot in left arm around IV site after being discharged from hospital- no meds due to current blood loss issue- warm compresses to site per pt- 2 ultrasounds done - no current issues Hypothyroidism 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 Lumbar disc disease Oral mucositis On mouthwash daily- no recent issues Portal hypertensive gastropathy Psoriasis Psoriatic arthritis PVT (portal vein thrombosis) denies Spinal stenosis EPIDURAL INJECTIONS IN PAST FOR PAIN RELIEF TMJ arthralgia Urinary retention Urinary tract infection Wide-complex tachycardia ON CARDVEDILOL-F/U DR VANESSA LAST VISIT<1 YR AGO Surgical History H/O foot surgery excision of neuroma b/l feet History of appendectomy History of arthroscopy RT KNEE History of cataract surgery RT/LEFT History of cholecystectomy History of esophagogastroduodenoscopy (EGD) History of esophagogastroduodenoscopy (EGD) 02/08/22 Dr. Sara Cloud- EGD- Grade I esophageal varices, Portal hypertensive gastropathy History of herniorrhaphy right inguinal History of lithotripsy History of liver biopsy History of repair of rotator cuff RT/LEFT History of tooth extraction History of urologic surgery Urethral reconstruction 4 years ago at [facility] Nausea and vomiting after administration of anesthetic agent S/P colonoscopy S/P epidural steroid injection S/P orchiectomy Right age 9 for UDT S/P urological surgery (2018) BMG urethroplasty-[facility] Suprapubic catheter AND REMOVAL Family History Grandmother (Maternal) Diabetes Father Renal cancer Mother Aortic aneurysm Denies family history of Ovarian cancer Prostate cancer Myocardial infarction Breast cancer Colorectal cancer Social History Smoking Status: Never smoker Second Hand Exposure: No; Hx Alcohol Use: No Hx Substance Use: No Preferred Language: Danish Communication Ability: Effective Visual Impairment: No Limitations Hearing Ability: Hard of Hearing Welfare Analyst Required: No Beliefs That Will Affect Care: None marital status: / Current Living Situation: Family Current Living Situation Comment: Son current occupational status: retired How many Children do You have: 1 Feels Safe at Home: Yes Diet Comment: regular caffeine: Yes during the past year weight has: decreased > 10 lbs Dental Care, Regularly: No Physical Activity Frequency: Other Physical Activity Frequency Comment: does all housework/outside work and cuts wood Seatbelt Use: never Sunscreen Use: No Assistive Devices: Cane Physical Exam Vital Signs Vital Signs - 24 hr 05/23/22 11:20 05/23/22 11:27 05/23/22 11:27 Temperature 37.3 C Temperature Source Oral Pulse Rate 110 H Pulse Rate [Apical] 112 H Pulse Rhythm [Apical] Regular Pulse Strength [Apical] Normal Respiratory Rate 18 18 Respiratory Effort / Characteristics Non-Labored Non-Labored Respiratory Depth Normal Normal Respiratory Pattern Regular Blood Pressure 142/83 H Blood Pressure [Right Arm] 142/83 H Blood Pressure Mean 102 Blood Pressure Mean [Right Arm] 102 Pulse Oximetry 98 98 Oxygen Delivery Method Room Air Room Air Room Air Sepsis Recent Fever Within 48 Hours Yes Sepsis New/Unexplained Change in Mental Status No Sepsis Action Taken by Nursing No Action Required 05/23/22 11:44 05/23/22 12:17 05/23/22 12:41 Temperature Temperature Source Pulse Rate 109 H Pulse Rate [Apical] 109 H Pulse Rhythm [Apical] Pulse Strength [Apical] Respiratory Rate 18 Respiratory Effort / Characteristics Non-Labored Respiratory Depth Normal Respiratory Pattern Blood Pressure Blood Pressure [Right Arm] 156/84 H Blood Pressure Mean Blood Pressure Mean [Right Arm] 108 Pulse Oximetry 98 97 Oxygen Delivery Method Room Air Room Air Sepsis Recent Fever Within 48 Hours Sepsis New/Unexplained Change in Mental Status Sepsis Action Taken by Nursing 05/23/22 14:12 05/23/22 16:13 Temperature Temperature Source Pulse Rate 102 H Pulse Rate [Apical] 102 H Pulse Rhythm [Apical] Pulse Strength [Apical] Respiratory Rate 18 Respiratory Effort / Characteristics Non-Labored Respiratory Depth Normal Respiratory Pattern Regular Blood Pressure Blood Pressure [Right Arm] 110/79 Blood Pressure Mean Blood Pressure Mean [Right Arm] 89 Pulse Oximetry 97 Oxygen Delivery Method Sepsis Recent Fever Within 48 Hours Sepsis New/Unexplained Change in Mental Status Sepsis Action Taken by Nursing Physical Exam GENERAL: He is oriented to person, place, and time. He appears well-developed and well-nourished. HENT: Exam performed. - Head: Normocephalic and atraumatic. - Right Ear: External ear normal. No mastoid erythema - Left Ear: External ear normal. No mastoid erythema - Mouth/Throat: The oropharynx is clear and moist. No trismus in the jaw. No dental abscesses or uvula swelling. No oropharyngeal exudate or tonsillar abscesses. EYES: Conjunctivae and EOM are normal. Pupils are equal, round, and reactive to light. Right eye exhibits no discharge. Left eye exhibits no discharge. No scleral icterus. NECK: Patient in c-collar. Pain on palpation C-spine. CV: Tachycardic rate, regular rhythm, normal heart sounds and intact distal pulses. Palpable radial pulses bue. PULM/CHEST: Effort normal and breath sounds normal. No respiratory distress. No stridor. He has no wheezes. He has no rales. - Chest Wall: He exhibits no tenderness. ABD: The abdomen is soft. Bowel sounds are normal. He has no distension. No mass is present. There is no tenderness. There is no rebound, no guarding, no Wiggins's sign and no tenderness at McBurney's point. Rovsig negative. No fluid wave. MUSC/SKEL: Pelvis stable. Pain on palpation of the lumbar spine. 1+ pitting edema of the bilateral lower extremities. NEURO: He is alert and oriented to person, place, and time. He has normal strength. No cranial nerve deficit or sensory deficit. GCS eye subscore is 4. GCS verbal subscore is 5. GCS motor subscore is 6. Cerebellar tests wnl. No ast erixis. SKIN: Skin is warm and dry. He is not diaphoretic. PSYCH: He has a normal mood and affect. Behavior is normal. Judgment and thought content normal. Course Course 1140: The patient was evaluated in room C2. A complete history and physical exam was performed Cardiac monitoring: An order was placed for continuous cardiac monitoring. The monitor shows a rate of 100 with sinus rhythm interpreted by vt 1552: Vital signs stable. Labs today show white blood cell count 7.03 hemoglobin 8.3. Coagulation studies within normal limits. Creatinine 2.21 magnesium 1.6 total bilirubin 2.4 direct bilirubin 1. Lactic acid 2.5. Urinalysis does appear to have infected urine. Rocephin ordered for the patient. Discussed with [facility] [address] hospitalist Dr. Taylor about potential admission and he will have resident team evaluate the patient. He he states to give 500 cc bolus normal saline and repeat lactic acid. Administered Medications Discontinued Medications Sodium Chloride (Nss 1000ml) 500 mls @ 999 mls/hr IV .Q31M ONE Stop: 05/23/22 16:21 Last Infusion: 05/23/22 16:47 Dose: 0 mls/hr Documented By: Admin: 05/23/22 16:13 Dose: 999 mls/hr Documented By: CRISTIANA Ceftriaxone Sodium 1,000 mg/ (Dextrose) 50 mls @ 100 mls/hr IV NOW STA Stop: 05/23/22 16:28 Last Infusion: 05/23/22 16:47 Dose: 0 mls/hr Documented By: Admin: 05/23/22 16:13 Dose: 100 mls/hr Documented By: CRISTIANA Sodium Chloride (Nss 1000ml) 500 mls @ 999 mls/hr IV .Q31M STA Stop: 05/23/22 16:49 Last Admin: 05/23/22 16:47 Dose: Not Given Documented By: CRISTIANA Medical Decision Making Medical Records Attestation: I reviewed the patient's medical records. External medical records were reviewed. Patient was seen in the emergency d epartment yesterday. Labs yesterday showed a white blood cell count of 7.1. Hemoglobin 8.7. Platelet count 55. Coagulation studies are within normal limits. Ammonia was within normal limits. Creatinine was mildly elevated 2.24 up from patient's baseline of approximately 1.8. Total bilirubin level is mildly elevated 2.9 up from the patient's baseline of approximately 2.5. Procalcitonin is mildly elevated 0.52. The patient's urine was concerning for infection and the patient was started on cefdinir in the emergency department. Patient was COVID-negative. Yesterday the patient had a CT of the head which was negative. CT of the abdomen pelvis was also read as showing cirrhosis with some splenomegaly and moderate abdominal/pelvic ascites with anasarca. The patient's chest x-ray was read by radiology this morning as showing a faint small density in the right midlung zone which could represent a developing pneumonia. Laboratory Data 05/23/22 11:33 05/23/22 11:33 Lab Results 05/23/22 05/23/22 05/23/22 Range/Units 11:33 11:33 11:33 WBC 7.03 (4.8-10.8) K/ul RBC 2.53 L (4.70-6.10) M/uL Hgb 8.3 L (14.0-18.0) g/dl Hct 25.3 L (42.0-52.0) % MCV 100.0 (80.0-100.0) fL MCH 32.8 (25.0-34.0) pg MCHC 32.8 (32.0-36.0) g/dL RDW Std Deviation 80.7 H (36.4-46.3) fL RDW Coeff of Miguel 21.8 H (11.5-14.5) % Plt Count 56 L (130-400) K/uL MPV 10.5 (9.4-12.4) fL Immature Gran % (Auto) 0.7 % Neut % (Auto) 81.6 % Lymph % (Auto) 4.7 % Garvin % (Auto) 12.9 % Eos % (Auto) 0.0 % Baso % (Auto) 0.1 % Neut # (Auto) 5.73 (1.40-6.50) K/uL Lymph # (Auto) 0.33 L (1.2-3.4) K/uL Garvin # (Auto) 0.91 H (0.11-0.59) K/uL Eos # (Auto) 0.00 (0-0.50) K/uL Baso # (Auto) 0.01 (0-0.2) K/uL Immature Gran # (Auto) 0.05 (0.01-0.20) K/uL Polychromasia 1+ Anisocytosis Present PT 18.8 H (9.0-12.0) Seconds INR 1.8 H (0.9-1.1) APTT 44.4 H (21.0-31.0) Seconds PTT Ratio 1.6 Sodium 131 L (136-145) mmol/L Potassium 3.6 (3.5-5.1) mmol/L Chloride 100 (98-107) mmol/L Carbon Dioxide 23 (21-32) mmol/L Anion Gap 8 (3-11) BUN 22 (6-23) mg/dl Creatinine 2.21 H (0.6-1.4) mg/dl Est Cr Clr Drug Dosing Not Reportable Est GFR ( Amer) 34.2 ml/min Est GFR (Non-Af Amer) 29.5 ml/min BUN/Creatinine Ratio 10.0 (10-20) Glucose 131 H (70-99(Fasting)) mg/dl Lactate (0.4-2.0) mmol/L Calcium 9.3 (8.6-10.3) mg/dl Magnesium 1.6 L (1.7-2.4) mg/dl Total Bilirubin 2.4 H (0.2-1.0) mg/dl Direct Bilirubin 1.0 H (0-0.2) mg/dl AST 39 (13-39) U/L ALT 14 (7-52) U/L Alkaline Phosphatase 81 (34-104) U/L Total Creatine Kinase 151 (30-223) U/L Total Protein 6.0 (6.0-8.3) gm/dl Albumin 2.0 L (3.4-5.0) gm/dl Lipase 13 (11-82) U/L Urine Color Urine Appearance (Clear) Urine pH (4.5-7.5) Ur Specific Ailey (1.000-1.030) Urine Protein (Negative) Urine Glucose (UA) (Negative) Urine Ketones (Negative) Urine Blood (Negative) Urine Nitrite (Negative) Urine Bilirubin (Negative) Urine Urobilinogen (Negative) Ur Leukocyte Esterase (Negative) Urine WBC (Auto) (0-5) /hpf Urine RBC (Auto) (0-4) /hpf U Hyaline Cast (Auto) (0-5) /lpf U Epithel Cells (Auto) (0-5) /lpf Urine Bacteria (Auto) (Negative) 05/23/22 05/23/22 05/23/22 Range/Units 14:27 15:13 16:33 WBC (4.8-10.8) K/ul RBC (4.70-6.10) M/uL Hgb (14.0-18.0) g/dl Hct (42.0-52.0) % MCV (80.0-100.0) fL MCH (25.0-34.0) pg MCHC (32.0-36.0) g/dL RDW Std Deviation (36.4-46.3) fL RDW Coeff of Miguel (11.5-14.5) % Plt Count (130-400) K/uL MPV (9.4-12.4) fL Immature Gran % (Auto) % Neut % (Auto) % Lymph % (Auto) % Garvin % (Auto) % Eos % (Auto) % Baso % (Auto) % Neut # (Auto) (1.40-6.50) K/uL Lymph # (Auto) (1.2-3.4) K/uL Garvin # (Auto) (0.11-0.59) K/uL Eos # (Auto) (0-0.50) K/uL Baso # (Auto) (0-0.2) K/uL Immature Gran # (Auto) (0.01-0.20) K/uL Polychromasia Anisocytosis PT (9.0-12.0) Seconds INR (0.9-1.1) APTT (21.0-31.0) Seconds PTT Ratio Sodium (136-145) mmol/L Potassium (3.5-5.1) mmol/L Chloride (98-107) mmol/L Carbon Dioxide (21-32) mmol/L Anion Gap (3-11) BUN (6-23) mg/dl Creatinine (0.6-1.4) mg/dl Est Cr Clr Drug Dosing Est GFR ( Amer) ml/min Est GFR (Non-Af Amer) ml/min BUN/Creatinine Ratio (10-20) Glucose (70-99(Fasting)) mg/dl Lactate 2.5 H* 2.0 (0.4-2.0) mmol/L Calcium (8.6-10.3) mg/dl Magnesium (1.7-2.4) mg/dl Total Bilirubin (0.2-1.0) mg/dl Direct Bilirubin (0-0.2) mg/dl AST (13-39) U/L ALT (7-52) U/L Alkaline Phosphatase (34-104) U/L Total Creatine Kinase (30-223) U/L Total Protein (6.0-8.3) gm/dl Albumin (3.4-5.0) gm/dl Lipase (11-82) U/L Urine Color Dark Yellow Urine Appearance Cloudy A (Clear) Urine pH 5.5 (4.5-7.5) Ur Specific Ailey 1.017 (1.000-1.030) Urine Protein Trace H (Negative) Urine Glucose (UA) Negative (Negative) Urine Ketones Negative (Negative) Urine Blood 1+ H (Negative) Urine Nitrite Negative (Negative) Urine Bilirubin Negative (Negative) Urine Urobilinogen Negative (Negative) Ur Leukocyte Esterase 2+ H (Negative) Urine WBC (Auto) >30 H (0-5) /hpf Urine RBC (Auto) 5-10 H (0-4) /hpf U Hyaline Cast (Auto) 0 (0-5) /lpf U Epithel Cells (Auto) 0-5 (0-5) /lpf Urine Bacteria (Auto) 1+ H (Negative) Imaging Data Radiologist's Impression: Cervical Spine CT 05/23/22 11:55 CT cervical spine wo con CT DOSE: 1091.21 mGy.cm CLINICAL HISTORY: 67 years-old Male with fall chi neck pain. Acute head and neck pain status post fall COMPARISON: Head CT of same day TECHNIQUE: Multiple axial CT images of the cervical spine were obtained without contrast. A dose lowering technique was utilized adhering to the principles of ALARA. FINDINGS: Straightening of the normal cervical lordosis. Moderate multilevel spondylitic spurring with posterior annular disc bulging. Posterior disc osteophyte complex formations are noted at the C5-C6 and C6-C7 levels. Nuchal ligament calcifications. Mild to moderate facet arthrosis. The cervical soft tissues appear unremarkable. The visualized lung apices appear clear. IMPRESSION: No acute cervical spine fracture or subluxation. ACT 112: Negative or not required by law. The above report was generated using voice recognition software. It may contain grammatical, syntax or spelling errors. Electronically signed by: Alan Espino M.D. 05/23/2022 12:33 PM Chest X-Ray 03/29/23 11:55 XR chest 1V portable HISTORY: Weakness. Follow-up abnormal chest x-ray. polytrauma COMPARISON: Chest 05/22/2022. FINDINGS: No pneumothorax. No pleural effusions. There are surgical clips within the right upper quadrant. The cardiac silhouette is mildly enlarged. This remains unchanged. No focal lung consolidations to suggest a pneumonia. No evidence for pulmonary edema. Specifically, the right midlung zone density seen on the prior study is no longer present and may have been due to overlying artifact. IMPRESSION: Stable mild cardiomegaly. Otherwise, no acute process within the chest. ACT 112: Negative or not required by law. Electronically signed by: Joaquín Bolden M.D. 05/23/2022 1:[address] 05/23/22 11:55 CT SCAN OF THE BRAIN WITHOUT IV CONTRAST CLINICAL HISTORY: Fall. COMPARISON STUDY: CT of the brain dated 05/22/2022. TECHNIQUE: Unenhanced axial CT scan of the brain is performed from the vertex to the skull base. A dose lowering technique was utilized adhering to the principles of ALARA. FINDINGS: Brain parenchyma: There is age-related involutional change noting mild subcortical and periventricular microangiopathic disease. There is no hemorrhage, mass effect, or evidence of acute territorial ischemia by CT criteria. Yarbrough-white matter differentiation is preserved. No extra-axial fluid collection is seen. Ventricles, sulci, cisterns: Prominent secondary to involutional change. Intracranial vasculature: There is atherosclerotic calcification of the cavernous carotid arteries. Calvarium: There is no depressed calvarial fracture. Sinuses and mastoids: The visualized paranasal sinuses are clear. The mastoid air cells are well pneumatized. Orbits: The bony orbits are grossly intact. There are bilateral ocular lens implants. IMPRESSION: There is no hemorrhage, mass effect, or evidence of acute territorial ischemia by CT criteria. No significant change from yesterday. ACT 112: Negative or not required by law. Electronically signed by: Edward Foreman M.D. 05/23/2022 12:29 PM Lumbar Spine X-Ray 05/23/22 11:55 XR lumbar spine min 4V routine HISTORY: 67 years-old Male polytrauma acute low back pain status post trauma COMPARISON: CT pelvis of same day, CT abdomen and pelvis 05/22/2022 TECHNIQUE: 5 views of the lumbar spine FINDINGS: Mild multilevel intervertebral disc space narrowing spondylitic spurring with moderate to severe facet arthrosis. No acute fracture, subluxation, endplate erosion or suspicious bone lesion identified. Atherosclerosis of the aorta. Un changed mild cortical irregularity of the inferior sacrum. Bilateral nephrolithiasis redemonstrated. Air-filled loops of small bowel measuring up to 2.9 cm favored to be physiologic. IMPRESSION: 1. No acute fracture or subluxation. 2. Bilateral nephrolithiasis redemonstrated. ACT 112: Negative or not required by law. The above report was generated using voice recognition software. It may contain grammatical, syntax or spelling errors. Electronically signed by: Alan Espino M.D. 05/23/2022 1:35 PM Pelvis X-Ray 05/23/22 11:55 XR pelvis 1-2V routine CLINICAL HISTORY: polytrauma. Fall. Pelvic pain. COMPARISON STUDY: Left hip 07/27/2020. FINDINGS: No fracture or dislocation within the pelvis or hips. The sacrum is intact. No radiopaque foreign bodies. IMPRESSION: No fracture or dislocation within the pelvis or hips. ACT 112: Negative or not required by law. Electronically signed by: Joaquín Bolden M.D. 05/23/2022 1:59 PM [facility] Narrative 1140: The patient was evaluated in room C2. A complete history and physical exam was performed Cardiac monitoring: An order was placed for continuous cardiac monitoring. The monitor shows a rate of 100 with sinus rhythm interpreted by vt 1552: Vital signs stable. Labs today show white blood cell count 7.03 hemoglobin 8.3. Coagulation studies within normal limits. Creatinine 2.21 magnesium 1.6 total bilirubin 2.4 direct bilirubin 1. Lactic acid 2.5. Urinalysis does appear to have infected urine. Rocephin ordered for the patient. Discussed with [facility] [address] hospitalist Dr. Taylor about potential admission and he will have resident team evaluate the patient. He he states to give 500 cc bolus normal saline and repeat lactic acid. Impression & Plan Acute UTI, 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, Fall Discharge Plan Visit Data Chief Complaint: Weakness Stated Complaint: FALL, HYPOTENSION ED Provider: Parker Cruz Discharge Problem: Acute UTI, 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, Fall Patient Disposition: Being Evaluated by Hospitalist Forms Stand Alone Forms: My [facility] Prescriptions Prescriptions: No Action cholecalciferol (vitamin D3) 50 mcg (2,000 unit) capsule 50 mcg PO QAM Qty: 90 3RF lactulose 10 gram/15 mL solution 20 g PO BID Qty: 946 3RF Rx Instructions: ON HOLD DUE TO LOOSE STOOLS Humira(CF) Pen 40 mg/0.4 mL pen injector kit 40 mg subcut Q14D Qty: 2 5RF Rx Instructions: 03/20/30 THIS MED ON HOLD. Xifaxan 550 mg tablet 550 mg PO BID Qty: 60 5RF potassium chloride 10 mEq capsule, extended release 10 meq PO DAILY Qty: 90 3RF Hold Instructions: Home Medication placed on hold at Doctor's office pantoprazole 40 mg tablet,delayed release (DR/EC) 40 mg PO BID Qty: 60 0RF vitamin B complex Tablet 1 tab PO DAILY furosemide 20 mg tablet 20 mg PO BID midodrine 5 mg tablet 5 mg PO TID Qty: 180 3RF Rx Instructions: do not give last dose of day after 8M or within 4 hrs of bedtime betamethasone dipropionate 0.05 % ointment 1 applic topical DIRECTED PRN (Reason: Skin Irritation) Rx Instructions: Apply to areas of the trunk and extremities twice daily x 2 weeks as directed. darbepoetin coretta in polysorbat 100 mcg/0.5 mL syringe 100 mcg subcut .COMPLEX PRN (Reason: NEEDED) Rx Instructions: 100 mcg subcutaneously Q weekly until Hgb >9. Then resume, Q other week. Hold for Hgb >10.; spironolactone 50 mg tablet 25 mg PO DAILY Referrals Referrals: Fiorella Castellano DO [Primary Care Provider] -
[2022-05-23 12:30] LABS: INR 1.8 (0.9-1.1); Partial Thromboplastin Ratio 1.6; Partial Thromboplastin Time 44.4 Seconds (21.0-31.0); Prothrombin Time 18.8 Seconds (9.0-12.0)
--- NOTE | 2022-05-23 12:30 | CT Scan Report ---
CT SCAN OF THE BRAIN WITHOUT IV CONTRAST CLINICAL HISTORY: Fall. COMPARISON STUDY: CT of the brain dated 05/22/2022. TECHNIQUE: Unenhanced axial CT scan of the brain is performed from the vertex to the skull base. A do se lowering technique was utilized adhering to the principles of ALARA. FINDINGS: Brain parenchyma: There is age-related involutional change noting mild subcortical and periventricula r microangiopathic disease. There is no hemorrhage, mass effect, or evidence of acute territorial isc hemia by CT criteria. Yarbrough-white matter differentiation is preserved. No extra-axial fluid collection is seen. Ventricles, sulci, cisterns: Prominent secondary to involutional change. Intracranial vasculature: There is atherosclerotic calcification of the cavernous carotid arteries. Calvarium: There is no depressed calvarial fracture. Sinuses and mastoids: The visualized paranasal sinuses are clear. The mastoid air cells are well pneu matized. Orbits: The bony orbits are grossly intact. There are bilateral ocular lens implants. IMPRESSION: There is no hemorrhage, mass effect, or evidence of acute territorial ischemia by CT lida freeman. No significant change from yesterday. ACT 112: Negative or not required by law. Electronically signed by: Edward Foreman M.D. 05/23/2022 12:29 PM
--- NOTE | 2022-05-23 12:34 | CT Scan Report ---
CT cervical spine wo con CT DOSE: 1091.21 mGy.cm CLINICAL HISTORY: 67 years-old Male with fall chi neck pain. Acute head and neck pain status post fa ll COMPARISON: Head CT of same day TECHNIQUE: Multiple axial CT images of the cervical spine were obtained without contrast. A dose low ering technique was utilized adhering to the principles of ALARA. FINDINGS: Straightening of the normal cervical lordosis. Moderate multilevel spondylitic spurring wit h posterior annular disc bulging. Posterior disc osteophyte complex formations are noted at the C5-C6 and C6-C7 levels. Nuchal ligament calcifications. Mild to moderate facet arthrosis. The cervical soft tissues appear unremarkable. The visualized lung apices appear clear. IMPRESSION: No acute cervical spine fracture or subluxation. ACT 112: Negative or not required by law. The above report was generated using voice recognition software. It may contain grammatical, syntax o r spelling errors. Electronically signed by: Alan Espino M.D. 05/23/2022 12:33 PM
--- NOTE | 2022-05-23 13:36 | XRay Report ---
XR lumbar spine min 4V routine HISTORY: 67 years-old Male polytrauma acute low back pain status post trauma COMPARISON: CT pelvis of same day, CT abdomen and pelvis 05/22/2022 TECHNIQUE: 5 views of the lumbar spine FINDINGS: Mild multilevel intervertebral disc space narrowing spondylitic spurring with moderate to severe face t arthrosis. No acute fracture, subluxation, endplate erosion or suspicious bone lesion identified. A therosclerosis of the aorta. Unchanged mild cortical irregularity of the inferior sacrum. Bilateral n ephrolithiasis redemonstrated. Air-filled loops of small bowel measuring up to 2.9 cm favored to be p hysiologic. IMPRESSION: 1. No acute fracture or subluxation. 2. Bilateral nephrolithiasis redemonstrated. ACT 112: Negative or not required by law. The above report was generated using voice recognition software. It may contain grammatical, syntax o r spelling errors. Electronically signed by: Alan Espino M.D. 05/23/2022 1:35 PM
[2022-05-23 13:37] LABS: Basophils # (auto) 0.01 K/uL (0-0.2); Basophils % (auto) 0.1 %; Hematocrit (blood only) 25.3 % (42.0-52.0); Hemoglobin 8.3 g/dl (14.0-18.0); Immature Granulocytes # (auto) 0.05 K/uL (0.01-0.20); Immature Granulocytes % (auto) 0.7 %; Lymphocytes # (auto) 0.33 K/uL (1.2-3.4); Lymphocytes % (auto) 4.7 %; Mean Corpuscular Hemoglobin 32.8 pg (25.0-34.0); Mean Corpuscular Hgb Conc 32.8 g/dL (32.0-36.0); Mean Platelet Volume 10.5 fL (9.4-12.4); Monocytes # (auto) 0.91 K/uL (0.11-0.59); Monocytes % (auto) 12.9 %; Neutrophils # (auto) 5.73 K/uL (1.40-6.50); Neutrophils % (auto) 81.6 %; Platelet Count 56 K/uL (130-400); RDW Coefficient of Variation 21.8 % (11.5-14.5); RDW Standard Deviation 80.7 fL (36.4-46.3); Red Blood Count 2.53 M/uL (4.70-6.10); White Blood Count 7.03 K/ul (4.8-10.8)
[2022-05-23 13:47] LABS: Anion Gap 8 (3-11); Bilirubin,Total 2.4 mg/dl (0.2-1.0); Calcium 9.3 mg/dl (8.6-10.3); Carbon Dioxide 23 mmol/L (21-32); Chloride 100 mmol/L (98-107); Magnesium 1.6 mg/dl (1.7-2.4); Potassium 3.6 mmol/L (3.5-5.1); Sodium 131 mmol/L (136-145)
--- NOTE | 2022-05-23 13:51 | Electrocardiogram Report ---
Test Reason : Blood Pressure : / mmHG Vent. Rate : 109 BPM Atrial Rate : 109 BPM P-R Int : 176 ms QRS Dur : 084 ms QT Int : 330 ms P-R-T Axes : 030 -21 024 degrees QTc Int : 444 ms Sinus tachycardia Low voltage QRS Borderline ECG When compared with ECG of 22-MAY-2022 20:04, (unconfirmed) Criteria for Anterior infarct are no longer Present Criteria for Anterolateral infarct are no longer Present Confirmed by Dc Phillips ([id number]) on 05/23/2022 1:51:14 PM Referred By: ED Confirmed By:Dc Phillips
[2022-05-23 13:53] LABS: Alanine Aminotransferase 14 U/L (7-52); Alkaline Phosphatase 81 U/L (34-104); Aspartate Aminotransferase 39 U/L (13-39); Blood Urea Nitrogen 22 mg/dl (6-23); Creatine Kinase 151 U/L (30-223); Est GFR (African American) 34.2 ml/min; Est GFR (Non-African American) 29.5 ml/min; Glucose 131 mg/dl (70-99(Fasting)); Lipase 13 U/L (11-82)
--- NOTE | 2022-05-23 13:59 | XRay Report ---
XR chest 1V portable HISTORY: Weakness. Follow-up abnormal chest x-ray. polytrauma COMPARISON: Chest 05/22/2022. FINDINGS: No pneumothorax. No pleural effusions. There are surgical clips within the right upper quad rant. The cardiac silhouette is mildly enlarged. This remains unchanged. No focal lung consolidations to suggest a pneumonia. No evidence for pulmonary edema. Specifically, the right midlung zone densit y seen on the prior study is no longer present and may have been due to overlying artifact. IMPRESSION: Stable mild cardiomegaly. Otherwise, no acute process within the chest. ACT 112: Negative or not required by law. Electronically signed by: Joaquín Bolden M.D. 05/23/2022 1:57 PM
--- NOTE | 2022-05-23 14:01 | XRay Report ---
XR pelvis 1-2V routine CLINICAL HISTORY: polytrauma. Fall. Pelvic pain. COMPARISON STUDY: Left hip 07/27/2020. FINDINGS: No fracture or dislocation within the pelvis or hips. The sacrum is intact. No radiopaque f oreign bodies. IMPRESSION: No fracture or dislocation within the pelvis or hips. ACT 112: Negative or not required by law. Electronically signed by: Joaquín Bolden M.D. 05/23/2022 1:59 PM
[2022-05-23 14:10] LABS: Anisocytosis Present; Polychromasia 1+
[2022-05-23 15:29] LABS: Appearance Urine Cloudy (Clear); Bilirubin Urine Negative (Negative); Blood Urine 1+ (Negative); Color Urine Dark Yellow; Glucose Urine UA Negative (Negative); Ketones Urine Negative (Negative); Leukocyte Esterase Urine 2+ (Negative); Nitrite Urine Negative (Negative); Protein Urine Trace (Negative); Specific Gravity Urine 1.017 (1.000-1.030); Urobilinogen Urine Negative (Negative); pH Urine 5.5 (4.5-7.5)
--- NOTE | 2022-05-23 15:45 | History & Physical Report ---
Date of Service May 23, 2022 Assessment & Plan (1) Lower extremity weakness: Plan: 67yo male with a history of HEATON (currently trying to get on transplant list) with resultant pancytopenia, history of hepatic encephalopathy, CKD3, spinal stenosis, GERD, nephrolithiasis, and UTI (diagnosed yesterday) presents with acute-onset LE weakness after falling at home yesterday. Acute-onset bilateral lower extremity weakness, fall, history of spinal stenosis Symptoms most concerning for worsening spinal stenosis given the acuity of weakness onset, 4/5 LE strength on exam, and known history of spinal stenosis; luckily patient is without numbness, tingling, saddle anesthesia, or bowel/bladder incontinence Differential also includes acute-onset weakness secondary to known UTI, CVA (though imaging was negative), others Imaging noted in HPI but is without evidence of fracture or other acute process Lactate elevated on admission to 2.5, repeat fell to 2.0 No sign of active bleeding (elevated INR noted) PT/OT ordered Fall precautions HEATON, ascites, hyponatremia, thrombocytopenia, elevated INR Patient has a known history of HEATON with associated thrombocytopenia and hyponatremia; patient is currently trying to get on the transplant list Thrombocytopenia and hyponatremia are equivocal to recent prior values No sign of active bleeding MELD 3.0 score: 28 Low sodium diet; will hold off on ordering fluid restriction unless sodium falls below 131 Continue spironolactone, lactulose, rifaximin, midodrine Will hold today's evening dose of lasix (20mg PO bid) but will order this to restart in the AM Trend CMP Urinary tract infection Diagnosed one day prior to admission; patient received ceftriaxone in ED but had not picked up cefdinir upon discharge Continue ceftriaxone for now Elevated creatinine, history of CKD3, bilateral nephrolithiasis Creatinine on admission elevated to 2.2 (baseline 1.7-2.0), elevation suspecte d secondary to recent poor PO intake in the setting of known CKD3 Bilateral nephrolithiasis is present but without hydronephrosis IVF, avoid nephrotoxins, encourage PO intake GERD: home regimen Psoriatic arthritis: holding home humira FEN: low sodium diet, no scheduled IVF for now Code status: DNI (compressions OK, defibrillation OK) DVT ppx: SCDs PT/OT: ordered Dispo: PCU given frailty/multiple comorbidities (2) Acute UTI: (3) CKD (chronic kidney disease), stage III: (4) GERD (gastroesophageal reflux disease): (5) Hypothyroidism: (6) Lumbar disc disease: (7) Thrombocytopenia: (8) Hyponatremia: History of Present Illness Primary Care Provider: Fiorella Castellano DO 67yo male with a history of HEATON (currently trying to get on transplant list) with resultant pancytopenia, history of hepatic encephalopathy, CKD3, spinal stenosis, GERD, nephrolithiasis, and UTI (diagnosed yesterday) presents with acute-onset LE weakness after falling at home yesterday. Of note, patient was seen in the [facility] ER yesterday (05/22) with headache, abdominal pain, and reduced PO intake; CT head was negative for intracranial bleed; CT abdomen/pelvis showed cirrhosis, splenomegaly, perisplenic varices, and anasarca. Patient was offered admission yesterday but declined. Patient reports that after he returned home yesterday, he bent forward to get laundry out of the dryer when his legs "gave out from under him"; patient denies head trauma or LOC. Patient was unable to get off the ground due to weakness, and was on the floor for approximately four hours before being discovered on the floor by his son. Patient complains of pain in his lower back and in his legs. Patient denies lightheadedness, dizziness, numbness, tingling, saddle anesthesia, or bowel/bladder incontinence. Patient additionally denies fever, chills, vision changes, CP, SOB, abdominal pain, nausea, vomiting, hematochezia, and melena. Patient does report mild burning with urination over the past few days but denies flank tenderness. Denies recent travel. Vitals on arrival were notable for tachycardia (110s), mildly elevated BP (140- 150s/80s); no tachypnea, patient afebrile, oxygen saturation adequate on room air. Initial labs were notable for anemia (Hgb 8.3, down from 8.7 yesterday), thrombocytopenia (56, equivocal to yesterday), hyponatremia (131), elevated creatinine (2.21), elevated lactate (2.5), elevated INR (1.8, not on anticoagulants), elevated Tbili (2.4), and low albumin (2.0). Urinalysis grossly infected. No leukocytosis, no other electrolyte abnormalities, transaminases not elevated, CK not elevated, lipase note elevated. EKG: sinus tachycardia, no overt ischemic change. In the ED, patient received a total of 1L fluid and a dose of ceftriaxone. Imaging results: CXR: stable mild cardiomegaly, no other acute process CT head: no acute process CT c-spine: no acute spinal fracture or subluxation XR lumbar spine: no acute fracture or subluxation; bilateral nephrolithiasis present XR pelvis: no fracture or dislocation within pelvis or hips Surrogate decision-maker in case of an emergency: meri Lawson (cell: ) Allergies Allergy/AdvReac Type Severity Reaction Status Date / Time tamsulosin Allergy Intermediate HIVES Verified 05/23/22 13:37 etanercept [From Enbrel] AdvReac Intermediate Increased Verified 05/23/22 13:37 infections Home Medications Medication Instructions Recorded Confirmed Type betamethasone dipropionate 0.05 % 1 applic topical DIRECTED PRN 05/10/21 05/23/22 History topical ointment Skin Irritation cholecalciferol (vitamin D3) 50 50 mcg PO QAM #90 caps 05/15/21 05/23/22 Rx mcg (2,000 unit) capsule lactulose 10 gram/15 mL oral 20 g (30 mL) PO BID #946 mL 09/19/21 05/23/22 Rx solution vitamin B complex 1 tab PO DAILY 10/23/21 05/23/22 History adalimumab 40 mg/0.4 mL 40 mg (0.4 mL) subcut Q14D #2 ea 01/03/22 05/23/22 Rx subcutaneous pen kit (Humira(CF) Pen) rifaximin 550 mg tablet (Xifaxan) 550 mg PO BID #60 tabs 01/16/22 05/23/22 Rx potassium chloride 10 mEq 10 meq PO DAILY #90 caps 03/16/22 05/23/22 Rx capsule,extended release spironolactone 50 mg tablet 25 mg PO DAILY 03/20/22 05/23/22 History furosemide 20 mg tablet 20 mg PO BID 05/03/22 05/23/22 History midodrine 5 mg tablet 5 mg PO TID #180 tabs 05/03/22 05/23/22 Rx pantoprazole 40 mg tablet,delayed 40 mg PO BID #60 tabs 05/16/22 05/23/22 Rx release darbepoetin coretta in polysorbat 100 100 mcg subcut .COMPLEX PRN 05/23/22 05/23/22 History mcg/0.5 mL in polysorbate NEEDED injection syringe Past Med/Surg History Medical History Ascites Cervical disc disease CKD (chronic kidney disease), stage III Depression GAVE (gastric antral vascular ectasia) Per records GERD (gastroesophageal reflux disease) History of herniated intervertebral disc lumbar area History of SCC (squamous cell carcinoma) of skin S/p removal- follows with derm Hx of blood clots 06/2021 @ [facility]- pt reports blood clot in left arm around IV site after being discharged from hospital- no meds due to current blood loss issue- warm compresses to site per pt- 2 ultrasounds done - no current issues Hypothyroidism 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 Lumbar disc disease Oral mucositis On mouthwash daily- no recent issues Portal hypertensive gastropathy Psoriasis Psoriatic arthritis PVT (portal vein thrombosis) denies Spinal stenosis EPIDURAL INJECTIONS IN PAST FOR PAIN RELIEF TMJ arthralgia Urinary retention Urinary tract infection Wide-complex tachycardia ON CARDVEDILOL-F/U DR VANESSA LAST VISIT<1 YR AGO Surgical History H/O foot surgery excision of neuroma b/l feet History of appendectomy History of arthroscopy RT KNEE History of cataract surgery RT/LEFT History of cholecystectomy History of esophagogastroduodenoscopy (EGD) History of esophagogastroduodenoscopy (EGD) 02/08/22 Dr. Sara Cloud- EGD- Grade I esophageal varices, Portal hypertensive gastropathy History of herniorrhaphy right inguinal History of lithotripsy History of liver biopsy History of repair of rotator cuff RT/LEFT History of tooth extraction History of urologic surgery Urethral reconstruction 4 years ago at [facility] Nausea and vomiting after administration of anesthetic agent S/P colonoscopy S/P epidural steroid injection S/P orchiectomy Right age 9 for UDT S/P urological surgery (2018) BMG urethroplasty-C Suprapubic catheter AND REMOVAL Family History Grandmother (Maternal) Diabetes Father Renal cancer Mother Aortic aneurysm Denies family history of Ovarian cancer Prostate cancer Myocardial infarction Breast cancer Colorectal cancer Social History Smoking Status: Never smoker Second Hand Exposure: No; Hx Alcohol Use: No Hx Substance Use: No Preferred Language: Spanish Communication Ability: Effective Visual Impairment: No Limitations Hearing Ability: Hard of Hearing Aviation Program Manager Required: No Beliefs That Will Affect Care: None marital status: / Current Living Situation: Family Current Living Situation Comment: Son current occupational status: retired How many Children do You have: 1 Feels Safe at Home: Yes Diet Comment: regular caffeine: Yes during the past year weight has: decreased > 10 lbs Dental Care, Regularly: No Physical Activity Frequency: Other Physical Activity Frequency Comment: does all housework/outside work and cuts wood Seatbelt Use: never Sunscreen Use: No Assistive Devices: Cane Review of Systems Review of Systems: See HPI Physical Exam Physical Exam: Constitutional: tired-appearing, no acute distress HEENT: atraumatic, no neck stiffness or tenderness CV: tachycardic, regular rhythm, no murmur appreciated, extremities well- perfused, 2+ LE edema to abdomen Resp: CTABL, no wheezes/rales/rhonchi appreciated, no increased work of breat brionna GI: soft, nondistended, mild tenderness of RUQ > LUQ, minimal lower quadrant tenderness bilaterally, ascites noted MSK: lower extremity strength 4/5 bilaterally with hip flexion, knee flexion, and foot dorsi/plantarflexion; no upper extremity weakness noted; no flank tenderness Neuro: alert, oriented, CN2-12 grossly intact, coordination intact Results & Data Results & Data Vital Signs (Past 12 Hours) Vital Signs Temp Pulse Pulse Resp BP BP Pulse Ox 05/23/22 14:12 102 H 18 110/79 97 05/23/22 12:41 109 H 18 156/84 H 97 05/23/22 12:17 109 H 05/23/22 11:44 98 05/23/22 11:27 112 H 18 142/83 H 98 05/23/22 11:27 05/23/22 11:20 37.3 C 110 H 18 142/83 H 98 O2 Del Method 05/23/22 14:12 05/23/22 12:41 Room Air 05/23/22 12:17 05/23/22 11:44 Room Air 03/29/23 11:27 Room Air 05/23/22 11:27 Room Air 05/23/22 11:20 Room Air Supervising Physician Co-Signing Physician Notes Patient seen and examined, chart reviewed, case discussed with Oswald Le MD and I agree with the assessment and plan as above except as otherwise noted Labs and images reviewed Sebastian is a pleasant 67-year-old male with a past medical history of Heaton, CKD 3, SVT, spinal stenosis, GERD, nephrolithiasis, UTI who presents with sudden onset lower extremity weakness and a fall, and generalized malaise. He reports he was bending over doing laundry yesterday when his strength suddenly gave out in his legs causing him to fall to the floor and he was unable to get back up off the ground due to weakness. He has not had urinary retention or numbness/tingling, does have diminished hip flexion bilaterally laying in bed with 4+/5 ankle dorsiflexion/plantarflexion bilaterally. Sensation is intact to soft touch in the legs bilaterally without asymmetry, and saddle anesthesia is not present. At bedside exam he is not having abdominal tenderness, although abdomen is distended with ascites. Bilateral lower extremity edema is present given reported history of spinal stenosis, and sudden onset of weakness when bending over and diminished strength on physical exam agree with obtaining a lumbar spine MRI. DDx does include UTI with global weakness and deconditioning in the setting of chronic liver disease. Agree with UTI treatment as above with Rocephin, patient clinically improved and lactate normalized with fluids and while he is overall hypervolemic may be intravascularly depleted in the setting of infection.. Will defer dose of Lasix and reassess for fluids versus Lasix based on clinical progression in the morning. Continue spironolactone. Resident Activity Tracking Resident Involvement: Resident Care Provided Care Provided: Adult Hospital Medicine
[2022-05-23 15:50] LABS: Cast Urine Automated 0 /lpf (0-5); Epithelial Cell Urine Auto 0-5 /lpf (0-5); WBC Urine Automated >30 /hpf (0-5)
[2022-05-23 15:51] LABS: Bacteria Urine Automated 1+ (Negative)
[2022-05-23] MEDS ORDERED: SODIUM CHLORIDE 0.9% 1000ML 500 ML IV ONE (15:51)
[2022-05-23] MEDS ORDERED: cefTRIAXone SODIUM 1,000 MG in DEXTROSE 5% AD-VAN 50 ML IV STA (15:59)
[2022-05-23] MEDS ORDERED: SODIUM CHLORIDE 0.9% 1000ML 500 ML IV STA (16:19)
[2022-05-23] MEDS ORDERED: ONDANSETRON INJ 2 MG/ML 2 ML VIAL IV PRN (19:54)
--- NOTE | 2022-05-23 21:02 | Magnetic Resonance Report ---
MR lumbar spine wo con CLINICAL HISTORY: 67 years-old Male with new-onset bilateral leg weakness. Acute low back pain with lower extremity weakness COMPARISON: Lumbar spine radiographs of same day, CT abdomen and pelvis 05/22/2022 TECHNIQUE: Multiplanar, multi sequence MRI of the lumbar spine was performed without intravenous cont rast. FINDINGS: Motion degraded exam. Intra-abdominal structures are better seen on the comparison CT examination. Ab dominal pelvic ascites redemonstrated. Distended urinary bladder. No acute fracture, subluxation or b one marrow replacing process or significant marrow edema identified. Heterogeneous appearance of the bone marrow is visualized terminating at the T12-L1 level. Signal within the imaged thoracic spinal c ord is within normal limits. There is only mild multilevel intervertebral disc space narrowing with s pondylitic spurring. Ligamentum flavum thickening with moderate multilevel facet arthrosis. There is severe facet arthrosis at L4-L5 and L5-S1. T12-L1: No central canal or neural foraminal stenosis. L1-L2: No central canal or neural foraminal stenosis. L2-L3: Tiny posterior annular disc bulge. Ligamentum flavum thickening with moderate facet arthrosis . Flattening of the ventral thecal sac without significant central canal or neural foraminal narrowin g. L3-L4: Tiny posterior annular disc bulge. Ligamentum flavum thickening with moderate facet arthrosis . The central canal is patent. Mild right with mild to moderate left neural foraminal narrowing. L4-L5: Small circumferential annular disc bulge. Mild spondylitic spurring with ligament and thicken ing and severe facet arthrosis. Possible right neural foraminal annular fissure. Central canal is pat ent. Moderate right with mild to moderate left neural foraminal narrowing. L5-S1: Spondylitic spurring with small posterior annular disc bulge and annular fissure. Segmental 7 thickening with severe facet arthrosis. The central canal is patent. Mild bilateral neural foraminal narrowing, left greater than right. IMPRESSION: 1. Motion degraded exam. 2. No high-grade central canal or neural foraminal narrowing. 3. Moderate right-sided neural foraminal stenosis at L4-L5. 4. Ascites. ACT 112: Negative or not required by law. The above report was generated using voice recognition software. It may contain grammatical, syntax o r spelling errors. Electronically signed by: Alan Espino M.D. 05/23/2022 9:00 PM
[2022-05-23] MEDS: SPIRONOLACTONE 25 MG TAB PO SCH (21:11)
[2022-05-23] MEDS: PANTOprazole 40 MG TAB PO SCH (21:11)
[2022-05-23] MEDS: rifAXIMin 550 MG TABLET PO SCH (21:12)
[2022-05-23] MEDS: LACTULOSE SYRUP 20 GM/30 ML UDC PO SCH (21:12)
[2022-05-24] MEDS: MIDODRINE HCL 2.5 MG TAB PO SCH ×3 (05:10→17:46)
[2022-05-24 06:35] LABS: Hematocrit (blood only) 25.3 % (42.0-52.0); Mean Corpuscular Hemoglobin 32.4 pg (25.0-34.0); Mean Corpuscular Hgb Conc 31.6 g/dL (32.0-36.0); Mean Corpuscular Volume 102.4 fL (80.0-100.0); Mean Platelet Volume 9.3 fL (9.4-12.4); Nucleated RBC # (auto) 0.02 K/uL (0-0.12); Nucleated RBC % (auto) 0.4 %; Platelet Count 47 K/uL (130-400); RDW Coefficient of Variation 22.7 % (11.5-14.5); RDW Standard Deviation 85.9 fL (36.4-46.3); Red Blood Count 2.47 M/uL (4.70-6.10); White Blood Count 4.63 K/ul (4.8-10.8)
[2022-05-24 07:01] LABS: Albumin Globulin Ratio 0.5 (0.9-2); Albumin Level 1.8 gm/dl (3.4-5.0); BUN Creatinine Ratio 12.4 (10-20); Calcium 9.2 mg/dl (8.6-10.3); Creatinine Clr Calc Pharmacy 47.1 ml/min; Est GFR (African American) 42.4 ml/min; Est GFR (Non-African American) 36.6 ml/min; Globulin 3.6 gm/dl (2.5-4.0); Magnesium 1.7 mg/dl (1.7-2.4); Potassium 3.9 mmol/L (3.5-5.1); Total Protein 5.4 gm/dl (6.0-8.3)
[2022-05-24 07:03] LABS: INR 1.7 (0.9-1.1)
--- NOTE | 2022-05-24 08:01 | Hospitalist Progress Note ---
Date of Service May 24, 2022 Assessment & Plan (1) Lower extremity weakness: Plan: 67 y/o male with a history of SERRANO (currently trying to get on transplant list) with resultant pancytopenia, history of hepatic encephalopathy, CKD3, spinal stenosis, GERD, nephrolithiasis, and UTI (diagnosed yesterday) presents with acute-onset LE weakness causing him to fall to the ground now s/p negative workup for worsening spinal stenosis and stable. #Acute-onset bilateral lower extremity weakness, fall, history of spinal stenosis Symptoms most concerning for worsening spinal stenosis given the acuity of weakness onset, 4/5 LE strength on exam, and known history of spinal stenosis; luckily patient is without numbness, tingling, saddle anesthesia, or bowel/bladder incontinence. Differential also includes acute-onset weakness secondary to known UTI, CVA (though imaging was negative), others. Imaging without evidence of fracture or other acute process. Likely deconditioning. Patient did not do well with PT today. Would recommend inpatient rehab. [] Lactate elevated on admission to 2.5, repeat fell to 2.0 [] No sign of active bleeding (elevated INR noted) [] PT/OT ordered [] Fall precautions #SERRANO, ascites, hyponatremia, thrombocytopenia, elevated INR Know hx of SERRANO - working to be listed on transplant list. May end up listed for a liver and kidney. Expected lab derangements noted with thrombocytopenia, hyponatremia, bilirubinemia, elevated INR, etc. Meld 28. [] low sodium diet, could fluid restrict if sodium <131 [] MELD labs [] continue midodrine, spironolactone, lactulose, rifaximin, lasix [] CM CMP Urinary tract infection Diagnosed one day prior to admission; patient received ceftriaxone in ED but had not picked up cefdinir upon discharge [] Continue ceftriaxone for now Elevated creatinine, history of CKD3, bilateral nephrolithiasis Creatinine on admission elevated to 2.2 (baseline 1.7-2.0), elevation suspected secondary to recent poor PO intake in the setting of known CKD3. Bilateral nephrolithiasis is present but without hydronephrosis [] IVF, avoid nephrotoxins, encourage PO intake GERD: home regimen Psoriatic arthritis: holding home Humira FEN: low sodium diet, no scheduled IVF for now Code status: DNI (compressions OK, defibrillation OK) DVT ppx: SCDs PT/OT: ordered Dispo: PCU given frailty/multiple comorbidities, may need inpatient rehab (2) Acute UTI: (3) CKD (chronic kidney disease), stage III: (4) GERD (gastroesophageal reflux disease): (5) Hypothyroidism: (6) Lumbar disc disease: (7) Thrombocytopenia: (8) Hyponatremia: Admission and Anticipated Discharge Date Admission Date: May 23, 2022 Supervising Physician Co-Signing Physician Notes I personally examined the patient and verified all [place] points of history and exam, discussed case, and agree with decision making with Dr Frausto Feeling weak. Notes that his legs just do not really have much powerwas folding laundry and they gave out. Also notes that he has a hard time getting his legs back into the bed whenever he sitting up. Vitals noted, in general he is awake and alert pleasant no distress. HEENT normocephalic atraumatic mucous membranes moist. Skin with diffuse edema, as is his prior. Neuro without focal deficits. Weaknesssuspect most of this is deconditioning due to chronic illness and general declinePT/OT eval and treat, rehab placement. Given that his legs are worse than anywhere else, and he does have spinal stenosiswe discussed that it is possible that the spinal stenosis is driving leg weakness more than just the deconditioning, but given that interventions for this would likely be rather significant, we agreed that it made more sense to start with seeing how well he can progress with therapy, and then considering interventions for his spinal stenosis if he is hitting a wall and not able to make progress. (Even then, I would look at nonsurgical interventions first to see if we can get him improvement with traction/decompression, as well as possibly steroid injections). Cirrhosisoverall stableworking to be on transplant list Subjective Patient notes continued weakness and pain in his back and legs. No CP or SOB. No fevers or chills. Patient was folding laundry when his legs felt weak and as if they might give out so he went to the floor. He was unable to get up off the floor on his own at that time. Review of Systems Review of Systems: See HPI Physical Exam Physical Exam: Constitutional: tired-appearing, no acute distress HEENT: atraumatic, no neck stiffness or tenderness CV: tachycardic, regular rhythm, no murmur appreciated, extremities well- perfused, 2+ LE edema to abdomen Resp: CTABL, no wheezes/rales/rhonchi appreciated, no increased work of breathing GI: soft, nondistended, non-tender, ascites noted MSK: no gross deformities Neuro: alert, oriented, CN2-12 grossly intact, coordination intact Results & Data Results & Data Vital Signs (Past 12 Hours) Vital Signs Temp Pulse Resp BP Pulse Ox O2 Del Method 05/24/22 03:23 37.3 C 107 H 18 119/67 97 Room Air 05/23/22 23:22 37.2 C 108 H 18 117/67 96 Room Air Laboratory Results 05/24/22 05/24/22 05/24/22 Range/Units 05:31 05:31 05:30 WBC 4.63 L (4.8-10.8) K/ul RBC 2.47 L (4.70-6.10) M/uL Hgb 8.0 L (14.0-18.0) g/dl Hct 25.3 L (42.0-52.0) % MCV 102.4 H (80.0-100.0) fL MCH 32.4 (25.0-34.0) pg MCHC 31.6 L (32.0-36.0) g/dL RDW Std Deviation 85.9 H (36.4-46.3) fL RDW Coeff of Miguel 22.7 H (11.5-14.5) % Plt Count 47 L (130-400) K/uL MPV 9.3 L (9.4-12.4) fL Immature Gran % (Auto) % Neut % (Auto) % Lymph % (Auto) % Levy % (Auto) % Eos % (Auto) % Baso % (Auto) % Neut # (Auto) (1.40-6.50) K/uL Lymph # (Auto) (1.2-3.4) K/uL Levy # (Auto) (0.11-0.59) K/uL Eos # (Auto) (0-0.50) K/uL Baso # (Auto) (0-0.2) K/uL Immature Gran # (Auto) (0.01-0.20) K/uL Absolute Nucleated RBC 0.02 (0-0.12) K/uL Nucleated RBC % (auto) 0.4 % Polychromasia Anisocytosis PT 18.0 H (9.0-12.0) Seconds INR 1.7 H (0.9-1.1) Sodium 131 L (136-145) mmol/L Potassium 3.9 (3.5-5.1) mmol/L Chloride 102 (98-107) mmol/L Carbon Dioxide 26 (21-32) mmol/L Anion Gap 3 (3-11) BUN 23 (6-23) mg/dl Creatinine 1.85 H D (0.6-1.4) mg/dl Est Cr Clr Drug Dosing 47.1 Est GFR ( Amer) 42.4 ml/min Est GFR (Non-Af Amer) 36.6 ml/min BUN/Creatinine Ratio 12.4 (10-20) Glucose 75 (70-99(Fasting)) mg/dl Lactate (0.4-2.0) mmol/L Calcium 9.2 (8.6-10.3) mg/dl Magnesium 1.7 (1.7-2.4) mg/dl Total Bilirubin 2.0 H (0.2-1.0) mg/dl Direct Bilirubin (0-0.2) mg/dl AST 51 H (13-39) U/L ALT 14 (7-52) U/L Alkaline Phosphatase 70 (34-104) U/L Total Creatine Kinase (30-223) U/L Total Protein 5.4 L (6.0-8.3) gm/dl Albumin 1.8 L (3.4-5.0) gm/dl Globulin 3.6 (2.5-4.0) gm/dl Albumin/Globulin Ratio 0.5 L (0.9-2) Lipase (11-82) U/L Urine Color Urine Appearance (Clear) Urine pH (4.5-7.5) Ur Specific [place] (1.000-1.030) Urine Protein (Negative) Urine Glucose (UA) (Negative) Urine Ketones (Negative) Urine Blood (Negative) Urine Nitrite (Negative) Urine Bilirubin (Negative) Urine Urobilinogen (Negative) Ur Leukocyte Esterase (Negative) Urine WBC (Auto) (0-5) /hpf Urine RBC (Auto) (0-4) /hpf U Hyaline Cast (Auto) (0-5) /lpf U Epithel Cells (Auto) (0-5) /lpf Urine Bacteria (Auto) (Negative) 05/23/22 05/23/22 05/23/22 Range/Units 16:33 15:13 14:27 WBC (4.8-10.8) K/ul RBC (4.70-6.10) M/uL Hgb (14.0-18.0) g/dl Hct (42.0-52.0) % MCV (80.0-100.0) fL MCH (25.0-34.0) pg MCHC (32.0-36.0) g/dL RDW Std Deviation (36.4-46.3) fL RDW Coeff of Miguel (11.5-14.5) % Plt Count (130-400) K/uL MPV (9.4-12.4) fL Immature Gran % (Auto) % Neut % (Auto) % Lymph % (Auto) % Levy % (Auto) % Eos % (Auto) % Baso % (Auto) % Neut # (Auto) (1.40-6.50) K/uL Lymph # (Auto) (1.2-3.4) K/uL Levy # (Auto) (0.11-0.59) K/uL Eos # (Auto) (0-0.50) K/uL Baso # (Auto) (0-0.2) K/uL Immature Gran # (Auto) (0.01-0.20) K/uL Absolute Nucleated RBC (0-0.12) K/uL Nucleated RBC % (auto) % Polychromasia Anisocytosis PT (9.0-12.0) Seconds INR (0.9-1.1) Sodium (136-145) mmol/L Potassium (3.5-5.1) mmol/L Chloride (98-107) mmol/L Carbon Dioxide (21-32) mmol/L Anion Gap (3-11) BUN (6-23) mg/dl Creatinine (0.6-1.4) mg/dl Est Cr Clr Drug Dosing Est GFR ( Amer) ml/min Est GFR (Non-Af Amer) ml/min BUN/Creatinine Ratio (10-20) Glucose (70-99(Fasting)) mg/dl Lactate 2.0 2.5 H* (0.4-2.0) mmol/L Calcium (8.6-10.3) mg/dl Magnesium (1.7-2.4) mg/dl Total Bilirubin (0.2-1.0) mg/dl Direct Bilirubin (0-0.2) mg/dl AST (13-39) U/L ALT (7-52) U/L Alkaline Phosphatase (34-104) U/L Total Creatine Kinase (30-223) U/L Total Protein (6.0-8.3) gm/dl Albumin (3.4-5.0) gm/dl Globulin (2.5-4.0) gm/dl Albumin/Globulin Ratio (0.9-2) Lipase (11-82) U/L Urine Color Dark Yellow Urine Appearance Cloudy A (Clear) Urine pH 5.5 (4.5-7.5) Ur Specific [place] 1.017 (1.000-1.030) Urine Protein Trace H (Negative) Urine Glucose (UA) Negative (Negative) Urine Ketones Negative (Negative) Urine Blood 1+ H (Negative) Urine Nitrite Negative (Negative) Urine Bilirubin Negative (Negative) Urine Urobilinogen Negative (Negative) Ur Leukocyte Esterase 2+ H (Negative) Urine WBC (Auto) >30 H (0-5) /hpf Urine RBC (Auto) 5-10 H (0-4) /hpf U Hyaline Cast (Auto) 0 (0-5) /lpf U Epithel Cells (Auto) 0-5 (0-5) /lpf Urine Bacteria (Auto) 1+ H (Negative) 05/23/22 05/23/22 Range/Units 11:33 11:33 WBC 7.03 (4.8-10.8) K/ul RBC 2.53 L (4.70-6.10) M/uL Hgb 8.3 L (14.0-18.0) g/dl Hct 25.3 L (42.0-52.0) % MCV 100.0 (80.0-100.0) fL MCH 32.8 (25.0-34.0) pg MCHC 32.8 (32.0-36.0) g/dL RDW Std Deviation 80.7 H (36.4-46.3) fL RDW Coeff of Miguel 21.8 H (11.5-14.5) % Plt Count 56 L (130-400) K/uL MPV 10.5 (9.4-12.4) fL Immature Gran % (Auto) 0.7 % Neut % (Auto) 81.6 % Lymph % (Auto) 4.7 % Levy % (Auto) 12.9 % Eos % (Auto) 0.0 % Baso % (Auto) 0.1 % Neut # (Auto) 5.73 (1.40-6.50) K/uL Lymph # (Auto) 0.33 L (1.2-3.4) K/uL Levy # (Auto) 0.91 H (0.11-0.59) K/uL Eos # (Auto) 0.00 (0-0.50) K/uL Baso # (Auto) 0.01 (0-0.2) K/uL Immature Gran # (Auto) 0.05 (0.01-0.20) K/uL Absolute Nucleated RBC (0-0.12) K/uL Nucleated RBC % (auto) % Polychromasia 1+ Anisocytosis Present PT (9.0-12.0) Seconds INR (0.9-1.1) Sodium 131 L (136-145) mmol/L Potassium 3.6 (3.5-5.1) mmol/L Chloride 100 (98-107) mmol/L Carbon Dioxide 23 (21-32) mmol/L Anion Gap 8 (3-11) BUN 22 (6-23) mg/dl Creatinine 2.21 H (0.6-1.4) mg/dl Est Cr Clr Drug Dosing Not Reportable Est GFR ( Amer) 34.2 ml/min Est GFR (Non-Af Amer) 29.5 ml/min BUN/Creatinine Ratio 10.0 (10-20) Glucose 131 H (70-99(Fasting)) mg/dl Lactate (0.4-2.0) mmol/L Calcium 9.3 (8.6-10.3) mg/dl Magnesium 1.6 L (1.7-2.4) mg/dl Total Bilirubin 2.4 H (0.2-1.0) mg/dl Direct Bilirubin 1.0 H (0-0.2) mg/dl AST 39 (13-39) U/L ALT 14 (7-52) U/L Alkaline Phosphatase 81 (34-104) U/L Total Creatine Kinase 151 (30-223) U/L Total Protein 6.0 (6.0-8.3) gm/dl Albumin 2.0 L (3.4-5.0) gm/dl Globulin (2.5-4.0) gm/dl Albumin/Globulin Ratio (0.9-2) Lipase 13 (11-82) U/L Urine Color Urine Appearance (Clear) Urine pH (4.5-7.5) Ur Specific [place] (1.000-1.030) Urine Protein (Negative) Urine Glucose (UA) (Negative) Urine Ketones (Negative) Urine Blood (Negative) Urine Nitrite (Negative) Urine Bilirubin (Negative) Urine Urobilinogen (Negative) Ur Leukocyte Esterase (Negative) Urine WBC (Auto) (0-5) /hpf Urine RBC (Auto) (0-4) /hpf U Hyaline Cast (Auto) (0-5) /lpf U Epithel Cells (Auto) (0-5) /lpf Urine Bacteria (Auto) (Negative) Diagnostic Findings Chest X-Ray 05/23/22 11:55 XR chest 1V portable HISTORY: Weakness. Follow-up abnormal chest x-ray. polytrauma COMPARISON: Chest 05/22/2022. FINDINGS: No pneumothorax. No pleural effusions. There are surgical clips within the right upper quadrant. The cardiac silhouette is mildly enlarged. This remains unchanged. No focal lung consolidations to suggest a pneumonia. No evidence for pulmonary edema. Specifically, the right midlung zone density seen on the prior study is no longer present and may have been due to overlying artifact. IMPRESSION: Stable mild cardiomegaly. Otherwise, no acute process within the chest. Lumbar Spine X-Ray 05/23/22 11:55 XR lumbar spine min 4V routine HISTORY: 67 years-old Male polytrauma acute low back pain status post trauma COMPARISON: CT pelvis of same day, CT abdomen and pelvis 05/22/2022 TECHNIQUE: 5 views of the lumbar spine FINDINGS: Mild multilevel intervertebral disc space narrowing spondylitic spurring with moderate to severe facet arthrosis. No acute fracture, subluxation, endplate ero edilberto or suspicious bone lesion identified. Atherosclerosis of the aorta. Unchanged mild cortical irregularity of the inferior sacrum. Bilateral nephrolithiasis redemonstrated. Air-filled loops of small bowel measuring up to 2.9 cm favored to be physiologic. IMPRESSION: 1. No acute fracture or subluxation. 2. Bilateral nephrolithiasis redemonstrated. Pelvis X-Ray 05/23/22 11:55 XR pelvis 1-2V routine CLINICAL HISTORY: polytrauma. Fall. Pelvic pain. COMPARISON STUDY: Left hip 07/27/2020. FINDINGS: No fracture or dislocation within the pelvis or hips. The sacrum is intact. No radiopaque foreign bodies. IMPRESSION: No fracture or dislocation within the pelvis or hips. Lumbar Spine MRI 05/23/22 16:10 MR lumbar spine wo con CLINICAL HISTORY: 67 years-old Male with new-onset bilateral leg weakness. Acute low back pain with lower extremity weakness COMPARISON: Lumbar spine radiographs of same day, CT abdomen and pelvis TECHNIQUE: Multiplanar, multi sequence MRI of the lumbar spine was performed without intravenous contrast. FINDINGS: Motion degraded exam. Intra-abdominal structures are better seen on the comparison CT examination. Abdominal pelvic ascites redemonstrated. Distended urinary bladder. No acute fracture, subluxation or bone marrow replacing process or significant marrow edema identified. Heterogeneous appearance of the bone marrow is visualized terminating at the T12-L1 level. Signal within the imaged thoracic spinal cord is within normal limits. There is only mild multilevel int ervertebral disc space narrowing with spondylitic spurring. Ligamentum flavum thickening with moderate multilevel facet arthrosis. There is severe facet arthrosis at L4-L5 and L5-S1. T12-L1: No central canal or neural foraminal stenosis. L1-L2: No central canal or neural foraminal stenosis. L2-L3: Tiny posterior annular disc bulge. Ligamentum flavum thickening with moderate facet arthrosis. Flattening of the ventral thecal sac without significant central canal or neural foraminal narrowing. L3-L4: Tiny posterior annular disc bulge. Ligamentum flavum thickening with moderate facet arthrosis. The central canal is patent. Mild right with mild to moderate left neural foraminal narrowing. L4-L5: Small circumferential annular disc bulge. Mild spondylitic spurring with ligament and thickening and severe facet arthrosis. Possible right neural foraminal annular fissure. Central canal is patent. Moderate right with mild to moderate left neural foraminal narrowing. L5-S1: Spondylitic spurring with small posterior annular disc bulge and annular fissure. Segmental 7 thickening with severe facet arthrosis. The central canal is patent. Mild bilateral neural foraminal narrowing, left greater than right. IMPRESSION: 1. Motion degraded exam. 2. No high-grade central canal or neural foraminal narrowing. 3. Moderate right-sided neural foraminal stenosis at L4-L5. 4. Ascites. Resident Activity Tracking Resident Involvement: Resident Care Provided Care Provided: Adult [facility]
[2022-05-24] MEDS: SPIRONOLACTONE 25 MG TAB PO SCH (08:34)
[2022-05-24] MEDS: rifAXIMin 550 MG TABLET PO SCH ×2 (08:34→20:54)
[2022-05-24] MEDS: FUROSEMIDE 20 MG TAB PO SCH ×2 (08:34→20:53)
[2022-05-24] MEDS: LACTULOSE SYRUP 20 GM/30 ML UDC PO SCH ×3 (08:35→20:56)
[2022-05-24] MEDS: POTASSIUM CHLORIDE 10 MEQ TABCR PO SCH (08:37)
[2022-05-24] MEDS: PANTOprazole 40 MG TAB PO SCH ×2 (10:32→20:53)
[2022-05-24] MEDS: cefTRIAXone SODIUM 2,000 MG in DEXTROSE 5% 50 ML IV SCH (17:46)
--- NOTE | 2022-05-24 18:44 | Billing Data ---
Date of Service May 24, 2022 Coding Level of Care Code 39879 SUB INP/OBS CARE MIN
[2022-05-24] MEDS ORDERED: HYDROmorphone INJ 0.5 MG/0.5 ML SYR IV STA (23:09)
[2022-05-25 04:58] LABS: Hematocrit (blood only) 23.6 % (42.0-52.0); Hemoglobin 7.7 g/dl (14.0-18.0); Mean Corpuscular Hemoglobin 33.2 pg (25.0-34.0); Mean Corpuscular Hgb Conc 32.6 g/dL (32.0-36.0); Mean Corpuscular Volume 101.7 fL (80.0-100.0); Mean Platelet Volume 10.4 fL (9.4-12.4); Platelet Count 44 K/uL (130-400); RDW Coefficient of Variation 22.2 % (11.5-14.5); RDW Standard Deviation 82.2 fL (36.4-46.3); Red Blood Count 2.32 M/uL (4.70-6.10); White Blood Count 3.98 K/ul (4.8-10.8)
[2022-05-25 05:14] LABS: Albumin Globulin Ratio 0.5 (0.9-2); Albumin Level 1.6 gm/dl (3.4-5.0); BUN Creatinine Ratio 12.4 (10-20); Bilirubin,Total 1.5 mg/dl (0.2-1.0); Calcium 8.7 mg/dl (8.6-10.3); Creatinine Clr Calc Pharmacy 44.9 ml/min; Est GFR (Non-African American) 34.6 ml/min; Globulin 3.4 gm/dl (2.5-4.0); Potassium 3.6 mmol/L (3.5-5.1)
[2022-05-25] MEDS: MIDODRINE HCL 2.5 MG TAB PO SCH ×3 (05:32→18:46)
[2022-05-25 05:34] LABS: INR 1.6 (0.9-1.1); Prothrombin Time 16.9 Seconds (9.0-12.0)
--- NOTE | 2022-05-25 07:47 | Hospitalist Progress Note ---
Date of Service May 25, 2022 Assessment & Plan (1) Lower extremity weakness: Plan: 67 y/o male with a history of SERRANO (currently trying to get on transplant list) with resultant pancytopenia, history of hepatic encephalopathy, CKD3, spinal stenosis, GERD, nephrolithiasis, and UTI (diagnosed yesterday) presents with acute-onset LE weakness causing him to fall to the ground now s/p negative workup for worsening spinal stenosis and stable. #Acute-onset bilateral lower extremity weakness, fall, history of spinal stenosis Symptoms most concerning for worsening spinal stenosis given the acuity of weakness onset, 4/5 LE strength on exam, and known history of spinal stenosis; luckily patient is without numbness, tingling, saddle anesthesia, or bowel/bladder incontinence. Differential also includes acute-onset weakness secondary to known UTI, CVA (though imaging was negative), others. Imaging without evidence of fracture or other acute process. Likely deconditioning. Patient did not do well with PT today. Would recommend inpatient rehab. [] Lactate elevated on admission to 2.5, repeat fell to 2.0 [] No sign of active bleeding (elevated INR noted) [] PT/OT ordered [] Fall precautions #SERRANO, ascites, hyponatremia, thrombocytopenia, elevated INR Know hx of SERRANO - working to be listed on transplant list. May end up listed for a liver and kidney. Expected lab derangements noted with thrombocytopenia, hyponatremia, bilirubinemia, elevated INR, etc. Meld 28. [] low sodium diet, could fluid restrict if sodium <131 [] MELD labs [] continue midodrine, spironolactone, lactulose, rifaximin, lasix [] CM CMP Urinary tract infection Diagnosed one day prior to admission; patient received ceftriaxone in ED but had not picked up cefdinir upon discharge [] Continue ceftriaxone for now Elevated creatinine, history of CKD3, bilateral nephrolithiasis Creatinine on admission elevated to 2.2 (baseline 1.7-2.0), elevation suspected secondary to recent poor PO intake in the setting of known CKD3. Bilateral nephrolithiasis is present but without hydronephrosis [] IVF, avoid nephrotoxins, encourage PO intake GERD: home regimen Psoriatic arthritis: holding home Humira FEN: low sodium diet, no scheduled IVF for now Code status: DNI (compressions OK, defibrillation OK) DVT ppx: SCDs PT/OT: ordered Dispo: PCU given frailty/multiple comorbidities, needs inpatient rehab (2) Acute UTI: (3) CKD (chronic kidney disease), stage III: (4) GERD (gastroesophageal reflux disease): (5) Hypothyroidism: (6) Lumbar disc disease: (7) Thrombocytopenia: (8) Hyponatremia: Admission and Anticipated Discharge Date Admission Date: May 23, 2022 Supervising Physician Co-Signing Physician Notes I personally examined the patient and verified all [place] points of history and exam, discussed case, and agree with decision making with Dr Frausto went to see multiple times, sleeping every time i went to see him. pending placement. Vitals noted, in general he is awake and alert pleasant no distress. HEENT nor mocephalic atraumatic mucous membranes moist. Skin with diffuse edema, as is his prior. Neuro without focal deficits. Weaknesssuspect most of this is deconditioning due to chronic illness and gene ral declinePT/OT eval and treat, rehab placement. Given that his legs are worse than anywhere else, and he does have spinal stenosiswe discussed that it is possible that the spinal stenosis is driving leg weakness more than just the deconditioning, but given that interventions for this would likely be rather significant, we agreed that it made more sense to start with seeing how well he can progress with therapy, and then considering interventions for his spinal stenosis if he is hitting a wall and not able to make progress. (Even then, I would look at nonsurgical interventions first to see if we can get him improvement with traction/decompression, as well as possibly steroid injections) . stable for rehab when approved///when bed available Cirrhosisoverall stableworking to be on transplant list Subjective Patient notes no new symptoms today. No fevers or chills. Review of Systems Review of Systems: See HPI Physical Exam Physical Exam: Constitutional: tired-appearing, no acute distress HEENT: atraumatic, no neck stiffness or tenderness CV: tachycardic, regular rhythm, no murmur appreciated, extremities well- perfused, 2+ LE edema to abdomen Resp: CTABL, no wheezes/rales/rhonchi appreciated, no increased work of breathing GI: soft, nondistended, non-tender, ascites noted MSK: no gross deformities Neuro: alert, oriented, Results & Data Results & Data Vital Signs (Past 12 Hours) Vital Signs Temp Pulse Pulse Resp BP Pulse Ox O2 Del Method 05/25/22 03:00 36.5 C 97 H 20 104/57 L 95 Room Air 05/25/22 01:37 96 H 05/24/22 22:25 37.5 C 96 H 16 112/58 L 95 Room Air 05/24/22 20:30 Room Air Laboratory Results 05/25/22 04:37 05/25/22 04:37 MELD 24 Resident Activity Tracking Resident Involvement: Resident Care Provided Care Provided: Adult Hospital Medicine
[2022-05-25] MEDS: rifAXIMin 550 MG TABLET PO SCH ×2 (09:44→20:33)
[2022-05-25] MEDS: PANTOprazole 40 MG TAB PO SCH ×2 (09:44→20:34)
[2022-05-25] MEDS: FUROSEMIDE 20 MG TAB PO SCH ×2 (09:44→20:33)
[2022-05-25] MEDS: SPIRONOLACTONE 25 MG TAB PO SCH (09:44)
[2022-05-25] MEDS: LACTULOSE SYRUP 20 GM/30 ML UDC PO SCH ×2 (09:44→20:34)
[2022-05-25] MEDS: POTASSIUM CHLORIDE 10 MEQ TABCR PO SCH (09:47)
[2022-05-25] MEDS: cefTRIAXone SODIUM 2,000 MG in DEXTROSE 5% 50 ML IV SCH (16:46)
--- NOTE | 2022-05-25 18:09 | Billing Data ---
Date of Service May 25, 2022 Coding Level of Care Code 07294 SUB INP/OBS CARE
[2022-05-25] MEDS ORDERED: HYDROmorphone INJ 0.5 MG/0.5 ML SYR IV PRN (22:23)
[2022-05-25] MEDS: MELATONIN 3 MG TAB PO PRN (22:42)
--- NOTE | 2022-05-26 04:11 | Communication Note ---
Date of Service: May 26, 2022 Discussed with nursing, patient has med/tele ordered since admit, currently tolerating well, per case management notes looking into inpatient rehab at this time. It is ok for patient to continue with med/tele level of care at this time, he does not require upgrading care to PCU level.
[2022-05-26 05:06] LABS: Hematocrit (blood only) 23.9 % (42.0-52.0); Hemoglobin 7.8 g/dl (14.0-18.0); Mean Corpuscular Hemoglobin 32.6 pg (25.0-34.0); Mean Corpuscular Hgb Conc 32.6 g/dL (32.0-36.0); Mean Platelet Volume 9.3 fL (9.4-12.4); Platelet Count 46 K/uL (130-400); RDW Coefficient of Variation 21.9 % (11.5-14.5); RDW Standard Deviation 80.5 fL (36.4-46.3); Red Blood Count 2.39 M/uL (4.70-6.10); White Blood Count 4.12 K/ul (4.8-10.8)
[2022-05-26] MEDS: MIDODRINE HCL 2.5 MG TAB PO SCH ×3 (05:07→17:13)
[2022-05-26 05:20] LABS: Albumin Globulin Ratio 0.5 (0.9-2); Albumin Level 1.7 gm/dl (3.4-5.0); BUN Creatinine Ratio 12.2 (10-20); Bilirubin,Total 1.5 mg/dl (0.2-1.0); Calcium 8.6 mg/dl (8.6-10.3); Creatinine Clr Calc Pharmacy 46.1 ml/min; Est GFR (African American) 41.6 ml/min; Est GFR (Non-African American) 35.9 ml/min; Globulin 3.5 gm/dl (2.5-4.0); Potassium 3.1 mmol/L (3.5-5.1); Total Protein 5.2 gm/dl (6.0-8.3)
[2022-05-26 06:01] LABS: INR 1.5 (0.9-1.1); Prothrombin Time 15.3 Seconds (9.0-12.0)
--- NOTE | 2022-05-26 07:16 | Hospitalist Progress Note ---
Date of Service May 26, 2022 Assessment & Plan (1) Lower extremity weakness: Plan: 67 y/o male with a history of SERRANO (currently trying to get on transplant list) with resultant pancytopenia, history of hepatic encephalopathy, CKD3, spinal stenosis, GERD, nephrolithiasis, and UTI (diagnosed yesterday) presents with acute-onset LE weakness causing him to fall to the ground now s/p negative workup for worsening spinal stenosis and stable. Acute-onset bilateral lower extremity weakness, fall, history of spinal stenosis -Lactate elevated on admission to 2.5, repeat fell to 2.0. No sign of active bleeding (elevated INR noted). -Symptoms most concerning for worsening spinal stenosis given the acuity of weakness onset, 4/5 LE strength on exam, and known history of spinal stenosis; luckily patient is without numbness, tingling, saddle anesthesia, or bowel/bladder incontinence. -Differential also includes acute-onset weakness secondary to known UTI, CVA (though imaging was negative), others. -Imaging without evidence of fracture or other acute process. Likely deconditioning. -Patient did not do well with PT today. * Awaiting placement to inpatient rehab. * Fall precautions SERRANO, ascites, hyponatremia, thrombocytopenia, elevated INR -Known hx of SERRANO working to be listed on transplant list. Possibly for liver and kidney. -Expected lab derangements noted with thrombocytopenia, hyponatremia, biliru binemia, elevated INR, etc. MELD score 28. * Low sodium diet. Fluid restrict if sodium <131 * Continue midodrine, spironolactone, lactulose, rifaximin, lasix * Trend CMP, MELD labs Hypokalemia -K+ of 3.1. Repleted with IV potassium chloride per protocol. * Trend CMP. Urinary tract infection -Diagnosed one day prior to admission; patient received ceftriaxone in ED but had not picked up cefdinir upon discharge * Continue ceftriaxone Elevated creatinine, history of CKD3, bilateral nephrolithiasisresolved Creatinine on admission elevated to 2.2 (baseline 1.7-2.0), elevation suspected secondary to recent poor PO intake in the setting of known CKD3. -Bilateral nephrolithiasis is present but without hydronephrosis. * Avoid nephrotoxins, encourage PO intake GERD: Continue home regimen Psoriatic arthritis: holding home Humira FEN: low sodium diet Code status: DNI (compressions OK, defibrillation OK) DVT ppx: SCDs PT/OT: ordered Dispo: MedSurg telemetry (2) Acute UTI: (3) CKD (chronic kidney disease), stage III: (4) GERD (gastroesophageal reflux disease): (5) Hypothyroidism: (6) Lumbar disc disease: (7) Thrombocytopenia: (8) Hyponatremia: Admission and Anticipated Discharge Date Admission Date: May 23, 2022 Supervising Physician Co-Signing Physician Notes I personally examined the patient and verified all [place] points of history and exam, discussed case, and agree with decision making with Dr Lantigua Sleeping first time I went to see him. Awake later. No acute complaints. Mostly frustrated with the insurance companyhe feels okay just weak. Would like to be at rehab. Vitals noted, in general he is awake and alert pleasant no distress. HEENT normocephalic atraumatic mucous membranes moist. Skin with diffuse edema, as is his prior. Neuro without focal deficits. Weaknesssuspect most of this is deconditioning due to chronic illness and general declinePT/OT eval and treat, rehab placement. Given that his legs are worse than anywhere else, and he does have spinal stenosiswe discussed that it is possible that the spinal stenosis is driving leg weakness more than just the deconditioning, but given that interventions for this would likely be rather significant, we agreed that it made more sense to start with seeing how well he can progress with therapy, and then considering interventions for his spinal stenosis if he is hitting a wall and not able to make progress. (Even then, I would look at nonsurgical interventions first to see if we can get him improvement with traction/decompression, as well as possibly steroid injections). stable for rehab when approved///when bed available just awaiting insurance approvalunfortunately not able to be done over the weekend, in spite of the fact that patients are in hospitals 7 days a week. Cirrhosisoverall stableworking to be on transplant list Subjective Patient resting comfortably in bed this morning. He reports improved pain, which he rates currently about 5/10. He reports having a bowel movement and has urinated without difficulty. He has no acute concerns at this time. Review of Systems Review of Systems: All systems reviewed & are unremarkable except as noted in HPI & below Physical Exam Physical Exam: General: No acute distress HEENT: PERRLA. Normal conjunctiva, anicteric sclera. Oropharynx normal. Respiratory: Normal respiratory effort, CTABL. Cardiovascular: RRR without murmurs, gallops, or rubs. No edema. GI: Soft abdomen with normal bowel sounds heard on auscultation. LUQ tenderness to palpation + guarding but no rebound. Neuro: Alert and oriented x3. Results & Data Results & Data Vital Signs (Past 12 Hours) Vital Signs Temp Pulse Pulse Pulse Resp BP Pulse Ox 05/26/22 05:32 36.7 C 96 H 18 104/63 95 05/26/22 05:31 97 H 05/26/22 05:47 05/25/22 22:03 90 05/26/22 03:51 36.8 C 95 H 18 106/62 97 05/25/22 22:45 36.9 C 98 H 18 107/64 94 05/25/22 19:42 36.7 C 89 18 102/62 96 O2 Del Method 05/26/22 05:32 Room Air 05/26/22 05:31 05/26/22 05:47 Room Air 05/25/22 22:03 05/26/22 03:51 Room Air 05/25/22 22:45 Room Air 05/25/22 19:42 Room Air Resident Activity Tracking Resident Involvement: Resident Care Provided Care Provided: Adult Hospital Medicine
[2022-05-26] MEDS: LACTULOSE SYRUP 20 GM/30 ML UDC PO SCH ×2 (09:15→20:17)
[2022-05-26] MEDS: rifAXIMin 550 MG TABLET PO SCH ×2 (09:16→20:12)
[2022-05-26] MEDS: PANTOprazole 40 MG TAB PO SCH ×2 (09:16→20:12)
[2022-05-26] MEDS: FUROSEMIDE 20 MG TAB PO SCH ×2 (09:17→20:24)
[2022-05-26] MEDS: SPIRONOLACTONE 25 MG TAB PO SCH (09:17)
[2022-05-26] MEDS: POTASSIUM CHLORIDE 10 MEQ TABCR PO SCH (09:25)
[2022-05-26] MEDS: POTASSIUM CHLORIDE / WTR 10 MEQ/100 ML PLCT IV SCH ×4 (09:32→12:36)
[2022-05-26] MEDS: cefTRIAXone SODIUM 2,000 MG in DEXTROSE 5% 50 ML IV SCH (16:16)
--- NOTE | 2022-05-26 16:49 | Billing Data ---
Date of Service May 26, 2022 Coding Level of Care Code 45497 SUB INP/OBS CARE
[2022-05-27] MEDS: MIDODRINE HCL 2.5 MG TAB PO SCH ×3 (05:49→17:21)
[2022-05-27] MEDS: FUROSEMIDE 20 MG TAB PO SCH ×2 (07:04→20:26)
[2022-05-27] MEDS: SPIRONOLACTONE 25 MG TAB PO SCH (07:04)
[2022-05-27] MEDS: rifAXIMin 550 MG TABLET PO SCH ×2 (07:04→20:25)
--- NOTE | 2022-05-27 07:04 | Hospitalist Progress Note ---
Date of Service May 27, 2022 Assessment & Plan (1) Lower extremity weakness: Plan: 67 y/o male with a history of SERRANO (currently trying to get on transplant list) with resultant pancytopenia, history of hepatic encephalopathy, CKD3, spinal stenosis, GERD, nephrolithiasis, and UTI (diagnosed yesterday) presents with acute-onset LE weakness causing him to fall to the ground now s/p negative workup for worsening spinal stenosis and stable. Acute-onset bilateral lower extremity weakness, fall, history of spinal stenosis -Lactate elevated on admission to 2.5, repeat fell to 2.0. No sign of active bleeding (elevated INR noted). -Symptoms most concerning for worsening spinal stenosis given the acuity of weakness onset, 4/5 LE strength on exam, and known history of spinal stenosis. -Patient without numbness, tingling, saddle anesthesia, or bowel/bladder incontinence. -Imaging without evidence of fracture or other acute process. Likely deconditioning. -PT evaluation: Recommended rehab (3 hours combined therapy daily). * Awaiting placement to inpatient rehab. * Fall precautions SERRANO, ascites, hyponatremia, thrombocytopenia, elevated INR -Known hx of SERRANO working to be listed on transplant list. Possibly for liver and kidney. -Expected lab derangements noted with thrombocytopenia, hyponatremia, bilirubinemia, elevated INR, etc. MELD score 28. * Low sodium diet. Fluid restrict if sodium <131 * Continue midodrine, spironolactone, lactulose, rifaximin, Lasix * Trend CMP, MELD labs Hypokalemia resolved -K+ of 3.1 on admission. Repleted with IV potassium chloride per protocol. * Trend daily labs. Replete as needed Urinary tract infection -Diagnosed one day prior to admission; patient received ceftriaxone in ED but had not picked up cefdinir upon discharge * Continue ceftriaxone x10 days ending 06/03/2022. Elevated creatinine, history of CKD3, bilateral nephrolithiasisresolved Creatinine on admission elevated to 2.2 (baseline 1.7-2.0), elevation suspected secondary to recent poor PO intake in the setting of known CKD3. -Bilateral nephrolithiasis is present but without hydronephrosis. * Avoid nephrotoxins, encourage PO intake GERD: Continue home regimen Psoriatic arthritis: holding home Humira FEN: low sodium diet Code status: DNI (compressions OK, defibrillation OK) DVT ppx: SCDs PT/OT: ordered Dispo: MedSurg telemetry (2) Acute UTI: (3) CKD (chronic kidney disease), stage III: (4) GERD (gastroesophageal reflux disease): (5) Hypothyroidism: (6) Lumbar disc disease: (7) Thrombocytopenia: (8) Hyponatremia: Admission and Anticipated Discharge Date Admission Date: May 23, 2022 Supervising Physician Co-Signing Physician Notes I personally examined the patient and verified all [place] points of history and exam, discussed case, and agree with decision making with Dr Lantigua No acute complaints. still waiting on placement. Vitals noted, in general he is awake and alert pleasant no distress. HEENT normocephalic atraumatic mucous membranes moist. no pallor or icterus. Neuro without focal deficits. Weaknesssuspect most of this is deconditioning due to chronic illness and general declinePT/OT eval and treat, rehab placement. Given that his legs are worse than anywhere else, and he does have spinal stenosiswe discussed that it is possible that the spinal stenosis is driving leg weakness more than just the deconditioning, but given that interventions for this would likely be rather significant, we agreed that it made more sense to start with seeing how well he can progress with therapy, and then considering interventions for his spinal stenosis if he is hitting a wall and not able to make progress. (Even then, I would look at nonsurgical interventions first to see if we can get him improvement with traction/decompression, as well as possibly steroid injections). no new issues today, stable for rehab when approved///when bed available just awaiting insurance approvalunfortunately not able to be done over the weekend, in spite of the fact that patients are in hospitals 7 days a week. Cirrhosisoverall stableworking to be on transplant list Physical Exam Physical Exam: General: No acute distress HEENT: PERRLA. Normal conjunctiva, anicteric sclera. Oropharynx normal. Respiratory: Normal respiratory effort, CTABL. Cardiovascular: RRR without murmurs, gallops, or rubs. No edema. GI: Soft abdomen with normal bowel sounds heard on auscultation. LUQ tenderness to palpation + guarding but no rebound. Neuro: Alert and oriented x3. Moderate, bilateral touch tenderness at the lower extremity. Results & Data Results & Data Vital Signs (Past 12 Hours) Vital Signs Temp Pulse Resp BP Pulse Ox O2 Del Method 05/27/22 03:42 36.6 C 88 18 102/63 96 Room Air 05/26/22 23:29 36.6 C 89 18 98/61 L 97 Room Air 05/26/22 19:51 36.6 C 86 18 112/73 95 Room Air Resident Activity Tracking Resident Involvement: Resident Care Provided Care Provided: Adult Hospital Medicine
[2022-05-27] MEDS: PANTOprazole 40 MG TAB PO SCH ×2 (07:06→20:25)
[2022-05-27] MEDS: POTASSIUM CHLORIDE 10 MEQ TABCR PO SCH (07:14)
[2022-05-27 07:37] LABS: Albumin Globulin Ratio 0.5 (0.9-2); Albumin Level 1.7 gm/dl (3.4-5.0); BUN Creatinine Ratio 12.3 (10-20); Bilirubin,Total 1.6 mg/dl (0.2-1.0); Calcium 8.5 mg/dl (8.6-10.3); Creatinine Clr Calc Pharmacy 58.7 ml/min; Est GFR (African American) 52.5 ml/min; Est GFR (Non-African American) 45.3 ml/min; Globulin 3.5 gm/dl (2.5-4.0); Potassium 3.6 mmol/L (3.5-5.1); Total Protein 5.2 gm/dl (6.0-8.3)
[2022-05-27 07:42] LABS: Hematocrit (blood only) 24.9 % (42.0-52.0); Mean Corpuscular Hemoglobin 32.8 pg (25.0-34.0); Mean Corpuscular Hgb Conc 32.1 g/dL (32.0-36.0); Mean Platelet Volume 11.1 fL (9.4-12.4); Platelet Count 61 K/uL (130-400); RDW Coefficient of Variation 22.2 % (11.5-14.5); RDW Standard Deviation 81.6 fL (36.4-46.3); Red Blood Count 2.44 M/uL (4.70-6.10); White Blood Count 4.12 K/ul (4.8-10.8)
[2022-05-27 07:46] LABS: INR 1.4 (0.9-1.1); Prothrombin Time 15.1 Seconds (9.0-12.0)
[2022-05-27] MEDS: LACTULOSE SYRUP 20 GM/30 ML UDC PO SCH ×2 (08:15→20:25)
--- NOTE | 2022-05-27 14:55 | Billing Data ---
Date of Service May 27, 2022 Coding Level of Care Code 25152 SUB INP/OBS CARE
[2022-05-27] MEDS: cefTRIAXone SODIUM 2,000 MG in DEXTROSE 5% 50 ML IV SCH (15:46)
[2022-05-28] MEDS: MIDODRINE HCL 2.5 MG TAB PO SCH ×3 (05:20→16:46)
--- NOTE | 2022-05-28 06:31 | Hospitalist Progress Note ---
Date of Service May 28, 2022 Assessment & Plan (1) Lower extremity weakness: Plan: 67 y/o male with a history of SERRANO (currently trying to get on transplant list) with resultant pancytopenia, history of hepatic encephalopathy, CKD3, spinal stenosis, GERD, nephrolithiasis, and UTI presents with acute-onset LE weakness causing him to fall to the ground now s/p negative workup for worsening spinal stenosis and stable. Acute-onset bilateral lower extremity weakness, fall, history of spinal stenosis -Symptoms most concerning for worsening spinal stenosis, 4/5 LE strength on exam, and known history of spinal stenosis. -Patient without numbness, tingling, saddle anesthesia, or bowel/bladder incontinence. -Imaging without evidence of fracture or other acute process. -Deconditioning likely also contributing. -PT evaluation: Recommended rehab (3 hours combined therapy daily). -Awaiting placement to inpatient rehab. -Fall precautions on. -Considering cirrhosis, orthostasis could be contributing. Will check orthostatic vital signs on 05/28. Already on midodrine. SERRANO cirrhosis, ascites, hyponatremia, thrombocytopenia, elevated INR -working to be listed on transplant list. Possibly for liver and kidney. -Expected lab derangements noted with thrombocytopenia, hyponatremia, bilirubinemia, elevated INR, etc. MELD score 28. -Low sodium diet. Fluid restrict if sodium <131 -Continue midodrine, spironolactone, lactulose, rifaximin, Lasix -Trend CMP, MELD labs. MELD score of 19 on 05/28. Urinary tract infection -Diagnosed one day prior to admission; patient received ceftriaxone in ED but had not picked up cefdinir upon discharge -Received 4 doses of ceftriaxone 2000 mg. Last dose given on 05/27. Will d/c now. COLLIN on CKD3, chronic bilateral nephrolithiasis -COLLIN likely from poor PO intake. Now resolved. GERD -Continue home regimen Psoriatic arthritis -holding home Humira FEN: low sodium diet Code status: DNI (compressions OK, defibrillation OK) DVT ppx: SCDs PT/OT: ordered Dispo: MedSurg telemetry (2) Acute UTI: (3) CKD (chronic kidney disease), stage III: (4) GERD (gastroesophageal reflux disease): (5) Hypothyroidism: (6) Lumbar disc disease: (7) Thrombocytopenia: (8) Hyponatremia: Admission and Anticipated Discharge Date Admission Date: May 23, 2022 Supervising Physician Co-Signing Physician Notes Resident Physician Supervision Note: I independently interviewed and examined the patient and verified the [place] history and physical, reviewed labs and image studies and agree with resident findings and care plan. Subjective Patient was seen bedside this morning. States that he is doing good today but has still has some back and leg pain, though much improved from previously. Review of Systems Review of Systems: All systems reviewed & are unremarkable except as noted in Subjective Physical Exam Constitutional: well developed; no acute distress Eyes: PERRL, conjunctivae normal, anicteric sclerae ENMT: external ear and nose normal, oropharynx normal Respiratory: normal respiratory effort, lungs clear to auscultation Cardiovascular: RRR, no murmur, no edema Gastrointestinal (Abdomen): normal bowel sounds, soft, nontender, no hepatosplenomegaly Skin: no rashes, warm and dry Psychiatric: A+Ox3, euthymic affect Results & Data Results & Data Vital Signs (Past 12 Hours) Vital Signs Temp Pulse Pulse Resp BP Pulse Ox Pulse Ox 05/28/22 02:27 36.5 C 88 18 107/71 96 05/27/22 23:00 36.5 C 91 H 18 104/64 98 05/27/22 22:59 83 05/27/22 20:13 36.5 C 87 18 97/63 L 96 05/27/22 19:00 97 O2 Del Method O2 Del Method 05/28/22 02:27 Room Air 05/27/22 23:00 Room Air 05/27/22 22:59 05/27/22 20:13 Room Air 05/27/22 19:00 Room Air Resident Activity Tracking Resident Involvement: Resident Care Provided Care Provided: Adult Hospital Medicine
[2022-05-28] MEDS: LACTULOSE SYRUP 20 GM/30 ML UDC PO SCH ×2 (07:33→20:35)
[2022-05-28] MEDS: FUROSEMIDE 20 MG TAB PO SCH ×2 (07:33→20:36)
[2022-05-28] MEDS: rifAXIMin 550 MG TABLET PO SCH ×2 (07:33→20:36)
[2022-05-28] MEDS: PANTOprazole 40 MG TAB PO SCH ×2 (07:33→20:35)
[2022-05-28] MEDS: POTASSIUM CHLORIDE 10 MEQ TABCR PO SCH (07:36)
[2022-05-28 07:54] LABS: Hematocrit (blood only) 26.5 % (42.0-52.0); Hemoglobin 8.6 g/dl (14.0-18.0); Mean Corpuscular Hemoglobin 32.6 pg (25.0-34.0); Mean Corpuscular Hgb Conc 32.5 g/dL (32.0-36.0); Mean Corpuscular Volume 100.4 fL (80.0-100.0); Mean Platelet Volume 9.4 fL (9.4-12.4); Platelet Count 71 K/uL (130-400); RDW Coefficient of Variation 22.8 % (11.5-14.5); RDW Standard Deviation 81.8 fL (36.4-46.3); Red Blood Count 2.64 M/uL (4.70-6.10); White Blood Count 4.31 K/ul (4.8-10.8)
[2022-05-28] MEDS: SPIRONOLACTONE 25 MG TAB PO SCH (08:30)
[2022-05-28 09:42] LABS: Albumin Level 1.8 gm/dl (3.4-5.0); Bilirubin,Total 1.7 mg/dl (0.2-1.0); Calcium 9.1 mg/dl (8.6-10.3); Potassium 3.9 mmol/L (3.5-5.1)
[2022-05-28 09:48] LABS: Albumin Globulin Ratio 0.5 (0.9-2); BUN Creatinine Ratio 11.5 (10-20); Creatinine Clr Calc Pharmacy 53.8 ml/min; Est GFR (African American) 48.7 ml/min; Globulin 3.7 gm/dl (2.5-4.0); Total Protein 5.5 gm/dl (6.0-8.3)
[2022-05-28] MEDS: MELATONIN 3 MG TAB PO PRN (20:41)
[2022-05-29] MEDS: MIDODRINE HCL 2.5 MG TAB PO SCH ×2 (05:34→12:05)
--- NOTE | 2022-05-29 06:40 | Hospitalist Progress Note ---
Date of Service May 29, 2022 Assessment & Plan (1) Lower extremity weakness: Plan: 67 y/o male with a history of SERRANO (currently trying to get on transplant list) with resultant pancytopenia, history of hepatic encephalopathy, CKD3, spinal stenosis, GERD, nephrolithiasis, and UTI presents with acute-onset LE weakness causing him to fall to the ground now s/p negative workup for worsening spinal stenosis and stable. Acute-onset bilateral lower extremity weakness, fall, history of spinal stenosis -Symptoms most concerning for worsening spinal stenosis, 4/5 LE strength on exam, and known history of spinal stenosis. -Patient without numbness, tingling, saddle anesthesia, or bowel/bladder incontinence. -Imaging without evidence of fracture or other acute process. -Deconditioning likely also contributing. -PT evaluation: Recommended rehab (3 hours combined therapy daily). -Awaiting placement to inpatient rehab. -Fall precautions on. -Considering cirrhosis, orthostasis could be contributing. Will check orthostatic vital signs on 05/28. Already on midodrine. SERRANO cirrhosis, ascites, hyponatremia, thrombocytopenia, elevated INR -working to be listed on transplant list. Possibly for liver and kidney. -Expected lab derangements noted with thrombocytopenia, hyponatremia, bilirubinemia, elevated INR, etc. MELD score 28. -Low sodium diet. Fluid restrict if sodium <131 -Continue midodrine, spironolactone, lactulose, rifaximin, Lasix -Trend CMP, MELD labs. MELD score of 19 on 05/28. Urinary tract infection -Diagnosed one day prior to admission; patient received ceftriaxone in ED but had not picked up cefdinir upon discharge -Received 4 doses of ceftriaxone 2000 mg. Last dose given on 05/27. Will d/c now. COLLIN on CKD3, chronic bilateral nephrolithiasis -COLLIN likely from poor PO intake. Now resolved. GERD -Continue home regimen Psoriatic arthritis -holding home Humira FEN: low sodium diet Code status: DNI (compressions OK, defibrillation OK) DVT ppx: SCDs PT/OT: ordered Dispo: MedSurg telemetry (2) Acute UTI: (3) CKD (chronic kidney disease), stage III: (4) GERD (gastroesophageal reflux disease): (5) Hypothyroidism: (6) Lumbar disc disease: (7) Thrombocytopenia: (8) Hyponatremia: Admission and Anticipated Discharge Date Admission Date: May 23, 2022 Results & Data Results & Data Vital Signs (Past 12 Hours) Vital Signs Temp Pulse Pulse Resp BP Pulse Ox O2 Del Method 05/28/22 21:59 81 05/29/22 00:03 36.6 C 90 20 112/71 94 Room Air 05/28/22 20:33 85 96/57 L 05/28/22 19:45 36.6 C 86 20 93/57 L 95 Room Air
[2022-05-29 07:19] LABS: Basophils # (auto) 0.04 K/uL (0-0.2); Basophils % (auto) 1.1 %; Eosinophils # (auto) 0.39 K/uL (0-0.50); Eosinophils % (auto) 10.8 %; Hematocrit (blood only) 26.6 % (42.0-52.0); Hemoglobin 8.5 g/dl (14.0-18.0); Immature Granulocytes # (auto) 0.03 K/uL (0.01-0.20); Immature Granulocytes % (auto) 0.8 %; Lymphocytes # (auto) 0.77 K/uL (1.2-3.4); Lymphocytes % (auto) 21.4 %; Mean Corpuscular Hemoglobin 32.8 pg (25.0-34.0); Mean Corpuscular Volume 102.7 fL (80.0-100.0); Mean Platelet Volume 9.4 fL (9.4-12.4); Monocytes # (auto) 0.58 K/uL (0.11-0.59); Monocytes % (auto) 16.1 %; Neutrophils # (auto) 1.79 K/uL (1.40-6.50); Neutrophils % (auto) 49.8 %; Platelet Count 74 K/uL (130-400); RDW Standard Deviation 86.3 fL (36.4-46.3); Red Blood Count 2.59 M/uL (4.70-6.10)
[2022-05-29] MEDS: rifAXIMin 550 MG TABLET PO SCH (07:24)
[2022-05-29] MEDS: SPIRONOLACTONE 25 MG TAB PO SCH (07:24)
[2022-05-29] MEDS: FUROSEMIDE 20 MG TAB PO SCH (07:24)
[2022-05-29] MEDS: PANTOprazole 40 MG TAB PO SCH (07:24)
[2022-05-29] MEDS: LACTULOSE SYRUP 20 GM/30 ML UDC PO SCH (07:25)
[2022-05-29] MEDS: POTASSIUM CHLORIDE 10 MEQ TABCR PO SCH (07:27)
[2022-05-29 07:39] LABS: Anisocytosis Present; Polychromasia 1+
[2022-05-29 07:44] LABS: Albumin Globulin Ratio 0.5 (0.9-2); Albumin Level 1.8 gm/dl (3.4-5.0); BUN Creatinine Ratio 10.7 (10-20); Bilirubin,Total 1.7 mg/dl (0.2-1.0); Calcium 8.8 mg/dl (8.6-10.3); Creatinine Clr Calc Pharmacy 52.2 ml/min; Est GFR (African American) 47.3 ml/min; Est GFR (Non-African American) 40.8 ml/min; Globulin 3.8 gm/dl (2.5-4.0); Potassium 3.7 mmol/L (3.5-5.1); Total Protein 5.6 gm/dl (6.0-8.3)
[2022-05-29 07:53] LABS: INR 1.5 (0.9-1.1); Prothrombin Time 15.2 Seconds (9.0-12.0)
--- NOTE | 2022-05-29 11:12 | Discharge Summary ---
Date of Service May 29, 2022 Admission HPI Per Admitting Provider 67yo male with a history of SERRANO (currently trying to get on transplant list) with resultant pancytopenia, history of hepatic encephalopathy, CKD3, spinal stenosis, GERD, nephrolithiasis, and UTI (diagnosed yesterday) presents with acute-onset LE weakness after falling at home yesterday. Of note, patient was seen in the [facility] ER yesterday (05/22) with headache, abdominal pain, and reduced PO intake; CT head was negative for intracranial bleed; CT abdomen/pelvis showed cirrhosis, splenomegaly, perisplenic varices, and anasarca. Patient was offered admission yesterday but declined. Patient reports that after he returned home yesterday, he bent forward to get laundry out of the dryer when his legs "gave out from under him"; patient denies head trauma or LOC. Patient was unable to get off the ground due to weakness, and was on the floor for approximately four hours before being discovered on the floor by his son. Patient complains of pain in his lower back and in his legs. Patient denies lightheadedness, dizziness, numbness, tingling, saddle anesthesia, or bowel/bladder incontinence. Patient additionally denies fever, chills, vision changes, CP, SOB, abdominal pain, nausea, vomiting, hematochezia, and melena. Patient does report mild burning with urination over the past few days but denies flank tenderness. Denies recent travel. Vitals on arrival were notable for tachycardia (110s), mildly elevated BP (140- 150s/80s); no tachypnea, patient afebrile, oxygen saturation adequate on room air. Initial labs were notable for anemia (Hgb 8.3, down from 8.7 yesterday), thrombocytopenia (56, equivocal to yesterday), hyponatremia (131), elevated creatinine (2.21), elevated lactate (2.5), elevated INR (1.8, not on anticoagulants), elevated Tbili (2.4), and low albumin (2.0). Urinalysis grossly infected. No leukocytosis, no other electrolyte abnormalities, transaminases not elevated, CK not elevated, lipase note elevated. EKG: sinus tachycardia, no overt ischemic change. In the ED, patient received a total of 1L fluid and a dose of ceftriaxone. Imaging results: CXR: stable mild cardiomegaly, no other acute process CT head: no acute process CT c-spine: no acute spinal fracture or subluxation XR lumbar spine: no acute fracture or subluxation; bilateral nephrolithiasis present XR pelvis: no fracture or dislocation within pelvis or hips Surrogate decision-maker in case of an emergency: meri Lawson (cell: ) Admission Exam Per Admitting Provider Constitutional: tired-appearing, no acute distress HEENT: atraumatic, no neck stiffness or tenderness CV: tachycardic, regular rhythm, no murmur appreciated, extremities well- perfused, 2+ LE edema to abdomen Resp: CTABL, no wheezes/rales/rhonchi appreciated, no increased work of breathing GI: soft, nondistended, mild tenderness of RUQ > LUQ, minimal lower quadrant tenderness bilaterally, ascites noted MSK: lower extremity strength 4/5 bilaterally with hip flexion, knee flexion, and foot dorsi/plantarflexion; no upper extremity weakness noted; no flank tenderness Neuro: alert, oriented, CN2-12 grossly intact, coordination intact Principal Diagnosis Acute onset bilateral lower extremity weakness with fall Discharge Exam Constitutional: well developed; no acute distress Eyes: PERRL, conjunctivae normal, anicteric sclerae ENMT: external ear and nose normal, oropharynx normal Respiratory: normal respiratory effort, lungs clear to auscultation Cardiovascular: RRR, no murmur, no edema Gastrointestinal (Abdomen): normal bowel sounds, soft, nontender, no hepatosplenomegaly Skin: no rashes, warm and dry Psychiatric: A+Ox3, euthymic affect Discharge Data Allergies Allergy/AdvReac Type Severity Reaction Status Date / Time tamsulosin Allergy Intermediate HIVES Verified 05/23/22 13:37 etanercept [From Enbrel] AdvReac Intermediate Increased Verified 05/23/22 13:37 infections Ordered Studies 05/23/22 11:55 CT cervical spine wo con Stat CT head/brain wo con Stat 05/23/22 16:10 MRI Lumbar Spine [MR lumbar spine wo con] Stat Cervical Spine CT 05/23/22 11:55 CT cervical spine wo con CT DOSE: 1091.21 mGy.cm CLINICAL HISTORY: 67 years-old Male with fall chi neck pain. Acute head and neck pain status post fall COMPARISON: Head CT of same day TECHNIQUE: Multiple axial CT images of the cervical spine were obtained without contrast. A dose lowering technique was utilized adhering to the principles of ALARA. FINDINGS: Straightening of the normal cervical lordosis. Moderate multilevel spondylitic spurring with posterior annular disc bulging. Posterior disc osteophyte complex formations are noted at the C5-C6 and C6-C7 levels. Nuchal ligament calcifications. Mild to moderate facet arthrosis. The cervical soft tissues appear unremarkable. The visualized lung apices appear clear. IMPRESSION: No acute cervical spine fracture or subluxation. ACT 112: Negative or not required by law. The above report was generated using voice recognition software. It may contain grammatical, syntax or spelling errors. Electronically signed by: Alan Espino M.D. 05/23/2022 12:33 PM Chest X-Ray 05/23/22 11:55 XR chest 1V portable HISTORY: Weakness. Follow-up abnormal chest x-ray. polytrauma COMPARISON: Chest 05/22/2022. FINDINGS: No pneumothorax. No pleural effusions. There are surgical clips within the right upper quadrant. The cardiac silhouette is mildly enlarged. This remains unchanged. No focal lung consolidations to suggest a pneumonia. No evidence for pulmonary edema. Specifically, the right midlung zone density seen on the prior study is no longer present and may have been due to overlying artifact. IMPRESSION: Stable mild cardiomegaly. Otherwise, no acute process within the chest. ACT 112: Negative or not required by law. Electronically signed by: Joaquín Bolden M.D. 05/23/2022 1:[address] 05/23/22 11:55 CT SCAN OF THE BRAIN WITHOUT IV CONTRAST CLINICAL HISTORY: Fall. COMPARISON STUDY: CT of the brain dated 05/22/2022. TECHNIQUE: Unenhanced axial CT scan of the brain is performed from the vertex to the skull base. A dose lowering technique was utilized adhering to the principles of ALARA. FINDINGS: Brain parenchyma: There is age-related involutional change noting mild subcortical and periventricular microangiopathic disease. There is no hemorrhage, mass effect, or evidence of acute territorial ischemia by CT criteria. Yarbrough-white matter differentiation is preserved. No extra-axial fluid collection is seen. Ventricles, sulci, cisterns: Prominent secondary to involutional change. Intracranial vasculature: There is atherosclerotic calcification of the cavernous carotid arteries. Calvarium: There is no depressed calvarial fracture. Sinuses and mastoids: The visualized paranasal sinuses are clear. The mastoid air cells are well pneumatized. Orbits: The bony orbits are grossly intact. There are bilateral ocular lens implants. IMPRESSION: There is no hemorrhage, mass effect, or evidence of acute territorial ischemia by CT criteria. No significant change from yesterday. ACT 112: Negative or not required by law. Electronically signed by: Edward Foreman M.D. 05/23/2022 12:29 PM Lumbar Spine X-Ray 05/23/22 11:55 XR lumbar spine min 4V routine HISTORY: 67 years-old Male polytrauma acute low back pain status post trauma COMPARISON: CT pelvis of same day, CT abdomen and pelvis 05/22/2022 TECHNIQUE: 5 views of the lumbar spine FINDINGS: Mild multilevel intervertebral disc space narrowing spondylitic spurring with moderate to severe facet arthrosis. No acute fracture, subluxation, endplate erosion or suspicious bone lesion identified. Atherosclerosis of the aorta. Unchanged mild cortical irregularity of the inferior sacrum. Bilateral nephrolithiasis redemonstrated. Air-filled loops of small bowel measuring up to 2.9 cm favored to be physiologic. IMPRESSION: 1. No acute fracture or subluxation. 2. Bilateral nephrolithiasis redemonstrated. ACT 112: Negative or not required by law. The above report was generated using voice recognition software. It may contain grammatical, syntax or spelling errors. Electronically signed by: Alan Espino M.D. 05/23/2022 1:35 PM Pelvis X-Ray 05/23/22 11:55 XR pelvis 1-2V routine CLINICAL HISTORY: polytrauma. Fall. Pelvic pain. COMPARISON STUDY: Left hip 07/27/2020. FINDINGS: No fracture or dislocation within the pelvis or hips. The sacrum is intact. No radiopaque foreign bodies. IMPRESSION: No fracture or dislocation within the pelvis or hips. ACT 112: Negative or not required by law. Electronically signed by: Joaquín Bolden M.D. 05/23/2022 1:59 PM Lumbar Spine MRI 05/23/22 16:10 MR lumbar spine wo con CLINICAL HISTORY: 67 years-old Male with new-onset bilateral leg weakness. Acute low back pain with lower extremity weakness COMPARISON: Lumbar spine radiographs of same day, CT abdomen and pelvis 05/22/2022 TECHNIQUE: Multiplanar, multi sequence MRI of the lumbar spine was performed without intravenous contrast. FINDINGS: Motion degraded exam. Intra-abdominal structures are better seen on the comparison CT examination. Abdominal pelvic ascites redemonstrated. Distended urinary bladder. No acute fracture, subluxation or bone marrow replacing process or significant marrow edema identified. Heterogeneous appearance of the bone marrow is visualized terminating at the T12-L1 level. Signal within the imaged thoracic spinal cord is within normal limits. There is only mild multilevel intervertebral disc space narrowing with spondylitic spurring. Ligamentum flavum thickening with moderate multilevel facet arthrosis. There is severe facet arthrosis at L4-L5 and L5-S1. T12-L1: No central canal or neural foraminal stenosis. L1-L2: No central canal or neural foraminal stenosis. L2-L3: Tiny posterior annular disc bulge. Ligamentum flavum thickening with moderate facet arthrosis. Flattening of the ventral thecal sac without significant central canal or neural foraminal narrowing. L3-L4: Tiny posterior annular disc bulge. Ligamentum flavum thickening with moderate facet arthrosis. The central canal is patent. Mild right with mild to moderate left neural foraminal narrowing. L4-L5: Small circumferential annular disc bulge. Mild spondylitic spurring with ligament and thickening and severe facet arthrosis. Possible right neural foraminal annular fissure. Central canal is patent. Moderate right with mild to moderate left neural foraminal narrowing. L5-S1: Spondylitic spurring with small posterior annular disc bulge and annular fissure. Segmental 7 thickening with severe facet arthrosis. The central canal is patent. Mild bilateral neural foraminal narrowing, left greater than right. IMPRESSION: 1. Motion degraded exam. 2. No high-grade central canal or neural foraminal narrowing. 3. Moderate right-sided neural foraminal stenosis at L4-L5. 4. Ascites. ACT 112: Negative or not required by law. The above report was generated using voice recognition software. It may contain grammatical, syntax or spelling errors. Electronically signed by: Alan Espino M.D. 05/23/2022 9:00 PM Abnormal lab results 05/29/22 05/29/22 05/29/22 Range/Units 06:52 06:52 06:52 WBC 3.60 L (4.8-10.8) K/ul RBC 2.59 L (4.70-6.10) M/uL Hgb 8.5 L (14.0-18.0) g/dl Hct 26.6 L (42.0-52.0) % MCV 102.7 H (80.0-100.0) fL RDW Std Deviation 86.3 H (36.4-46.3) fL RDW Coeff of Miguel 23.0 H (11.5-14.5) % Plt Count 74 L (130-400) K/uL Lymph # (Auto) 0.77 L (1.2-3.4) K/uL PT 15.2 H (9.0-12.0) Seconds INR 1.5 H (0.9-1.1) Carbon Dioxide 35 H (21-32) mmol/L Anion Gap 0 L (3-11) Creatinine 1.69 H (0.6-1.4) mg/dl Glucose 103 H (70-99(Fasting)) mg/dl Total Bilirubin 1.7 H (0.2-1.0) mg/dl Total Protein 5.6 L (6.0-8.3) gm/dl Albumin 1.8 L (3.4-5.0) gm/dl Albumin/Globulin Ratio 0.5 L (0.9-2) Hospital Course (1) Lower extremity weakness: (2) Acute UTI: (3) CKD (chronic kidney disease), stage III: (4) GERD (gastroesophageal reflux disease): (5) Hypothyroidism: (6) Lumbar disc disease: (7) Thrombocytopenia: (8) Hyponatremia: Plan Acute-onset bilateral lower extremity weakness, fall, history of spinal stenosis -Symptoms most concerning for worsening spinal stenosis, 4/5 LE strength on exam, and known history of spinal stenosis. -Patient without numbness, tingling, saddle anesthesia, or bowel/bladder incontinence. -Imaging without evidence of fracture or other acute process. -Deconditioning likely also contributing. -PT evaluation: Recommended rehab (3 hours combined therapy daily). -Placement to [facility] accepted. -Orthostasis negative on 05/28. Already on midodrine. SERRANO cirrhosis, ascites, hyponatremia, thrombocytopenia, elevated INR -working to be listed on transplant list. Possibly for liver and kidney. -Expected lab derangements noted with thrombocytopenia, hyponatremia, bilirubinemia, elevated INR, etc. MELD score 28 at time of admission. -Continued midodrine, spironolactone, lactulose, rifaximin, Lasix Urinary tract infection -Diagnosed one day prior to admission; patient received ceftriaxone in ED but had not picked up cefdinir upon discharge -Received 4 doses of ceftriaxone 2000 mg. Last dose given on 05/27. Does not need any further abx at this time. COLLIN on CKD3, chronic bilateral nephrolithiasis -COLLIN likely from poor PO intake. Now resolved. GERD -Continue home regimen Psoriatic arthritis -Can continue home Humira at time of discharge. Total Time Total Time Spent Total Time Spent (In Minutes): 20 Discharge Plan Discharge Items Patient Disposition: Transfer [facility] Reason For Visit: ACUTE LE WEAKNESS, FALL, COMPLICATED UTI Discharge Diagnosis: Acute-onset bilateral lower extremity weakness, fall, history of spinal stenosis Activity: Per Instructions section Non-emergency contact: Primary Care Provider Call non-emergency contact if: your pain is worsening, your pain is unusual for you and your temperature is above 101.5 Follow-up/Referrals: Fiorella Castellano DO [Primary Care Provider] - Diet: Low Sodium (2gm) Addtl Attending Provider Instructions: 67 y/o male with a history of SERRANO (currently trying to get on transplant list) with resultant pancytopenia, history of hepatic encephalopathy, CKD3, spinal stenosis, GERD, nephrolithiasis, and UTI presents with acute-onset LE weakness causing him to fall to the ground now s/p negative workup for worsening spinal stenosis and stable. Acute-onset bilateral lower extremity weakness, fall, history of spinal stenosis -Symptoms most concerning for worsening spinal stenosis, 4/5 LE strength on exam, and known history of spinal stenosis. -Patient without numbness, tingling, saddle anesthesia, or bowel/bladder incontinence. -Imaging without evidence of fracture or other acute process. -Deconditioning likely also contributing. -PT evaluation: Recommended rehab (3 hours combined therapy daily). -Placement to [facility] accepted. -Fall precautions on. -Considering cirrhosis, orthostasis could be contributing, othostasis negative on 05/28. Already on midodrine. SERRANO cirrhosis, ascites, hyponatremia, thrombocytopenia, elevated INR -working to be listed on transplant list. Possibly for liver and kidney. -Expected lab derangements noted with thrombocytopenia, hyponatremia, bilirubinemia, elevated INR, etc. MELD score 28 at time of admission. -Low sodium diet. Fluid restrict if sodium <131 -Continue midodrine, spironolactone, lactulose, rifaximin, Lasix -Trend CMP, MELD labs. MELD score of 20 on 05/28. Urinary tract infection -Diagnosed one day prior to admission; patient received ceftriaxone in ED but had not picked up cefdinir upon discharge -Received 4 doses of ceftriaxone 2000 mg. Last dose given on 05/27. Does not need any further abx at this time. COLLIN on CKD3, chronic bilateral nephrolithiasis -COLLIN likely from poor PO intake. Now resolved. GERD -Continue home regimen Psoriatic arthritis -Can continue home Humira at time of discharge. Pending Studies at Discharge: No Stand-Alone Forms: My [facility] [employer] Skilled Items Patient informed of condition?: Yes DNR: No Discharge Level of Care: Skilled Communicable Disease: No Discharge Prognosis: Improving Lines: None Urinary Catheter: No Medications and DC Order Prescriptions: Continued cholecalciferol (vitamin D3) 50 mcg (2,000 unit) capsule 50 mcg PO QAM Qty: 90 3RF lactulose 10 gram/15 mL solution 20 g PO BID Qty: 946 3RF Rx Instructions: ON HOLD DUE TO LOOSE STOOLS Humira(CF) Pen 40 mg/0.4 mL pen injector kit 40 mg subcut Q14D Qty: 2 5RF Rx Instructions: 03/20/30 THIS MED ON HOLD. Xifaxan 550 mg tablet 550 mg PO BID Qty: 60 5RF potassium chloride 10 mEq capsule, extended release 10 meq PO DAILY Qty: 90 3RF Hold Instructions: Home Medication placed on hold at Doctor's office pantoprazole 40 mg tablet,delayed release (DR/EC) 40 mg PO BID Qty: 60 0RF vitamin B complex Tablet 1 tab PO DAILY furosemide 20 mg tablet 20 mg PO BID midodrine 5 mg tablet 5 mg PO TID Qty: 180 3RF Rx Instructions: do not give last dose of day after 8M or within 4 hrs of bedtime betamethasone dipropionate 0.05 % ointment 1 applic topical DIRECTED PRN (Reason: Skin Irritation) Rx Instructions: Apply to areas of the trunk and extremities twice daily x 2 weeks as directed. darbepoetin coretta in polysorbat 100 mcg/0.5 mL syringe 100 mcg subcut .COMPLEX PRN (Reason: NEEDED) Rx Instructions: 100 mcg subcutaneously Q weekly until Hgb >9. Then resume, Q other week. Hold for Hgb >10.; spironolactone 50 mg tablet 25 mg PO DAILY Discharge Orders: Discharge Order (Routine); Ordered 05/29/22 Ordered By: Edward Luna Admission Data Admit Date/Time: 05/23/22 16:25 Attending Provider: Selena Tuttle Admit Provider: Oswald Le Primary Care Provider: Fiorella Castellano Other Providers: [facility] ; [facility] ; Margarito Zamudio Other Interventions: Discharge Summary Assessment (RN) Last Done: 05/29/22 11:22 Supervising Physician Co-Signing Physician Notes Resident Physician Supervision Note: I independently interviewed and examined the patient and verified the [place] history and physical, reviewed labs and image studies and agree with resident findings and care plan. Resident Activity Tracking Resident Involvement: Resident Care Provided Care Provided: Adult Hospital Medicine
[2022-05-29] MEDS ORDERED: EPOETIN ALFA 40,000 UNITS/ML VIAL SQ ONE (12:30)
== END 2022-05-29 13:01 | DRG 552 ==
LOC: ED 11:15 → SUATTDRO 16:25 → 4W 16:25 → 2N 05-26 05:28

== ENCOUNTER 2022-06-07 18:31 | Inpatient (IN) ==
--- NOTE | 2022-06-07 18:58 | Emergency Department Note ---
Impression & Plan Acute GI bleeding, Complaint of melena, Acute kidney injury superimposed on chronic kidney disease ED Provider Note HISTORY OF PRESENT ILLNESS: Patient is a 67-year-old male presenting with melanotic stool. Patient reports that earlier today he had multiple episodes of dark, tarry stool. He denies any anticoagulation use. His stool was reportedly Hemoccult positive at the [facility]. Patient reports some generalized abdominal pain for the last few days. Reports feeling dizzy with standing. Denies any chest pain or shortness of breath. He received an iron transfusion last month. Denies any dysuria or hematuria. Denies any fevers ROS: as above PHYSICAL EXAM: Constitutional: Patient appears in no acute distress. HENT: Head: Normocephalic and atraumatic. Eyes: EOMI, PERRL Mouth/Throat: Mucous membranes moist. Neck: Trachea midline. Neck supple. Cardiovascular: RRR, No murmurs, rubs or gallops. Intact distal pulses. Pulmonary/Chest: No respiratory distress. Breath sounds clear and equal bilaterally. No wheezes or rales. Abdominal: BS +. Abdomen soft, no tenderness, rebound or guarding. Musculoskeletal: No edema, tenderness or deformity noted. Skin: Warm and dry. No rash, erythema, pallor or cyanosis Psychiatric: Appropriate mood and affect for situation. Neurological: Alert and keenly responsive. CN II-XII grossly intact, moving all extremities equally and fully. MDM: - Vitals signs showed tachycardia. - History obtained via patient. Patient presents with dark and tarry stools. Patient reports stool became dark this afternoon. It was Hemoccult tested at his facility and was positive. He is not on any anticoagulation. - Chronic conditions affecting care: CKD; GAVE; GERD; hypothyroidism; SERRANO - Differential diagnoses include, but are not limited to: variceal bleeding; bleeding gastric ulcer - Order placed for continuous cardiac monitoring. At this time, monitor showed rate of 101 bpm with normal sinus rhythm, per my interpretation. - External medical records reviewed. Patient had EGD performed on March 21, 2022 which showed grade 1 varices with no bleeding. Also noted to have severe portal hypertensive gastropathy. - Laboratory workup interpreted by myself showed slight leukopenia (WBC 4.2); chronic anemia (Hgb 8.5); thrombocytopenia (plt 71); elevated INR (1.5); slight hyponatremia (Na 133); COLLIN on CKD (Cr 2.26); elevated bilirubin (3.3); normal liver function tests; normal lipase - Type and cross ordered. - Considered CT abdomen/pelvis, but patient's bleed is likely upper GI in nature and he has no reproducible abdominal pain. - IV octreotide ordered. - Patient is not on any anticoagulation for reversal and he is hemodynamically stable at this point - Discussion was had with social services designee about patient's case and need for admission. - Hospitalist, Dr. Bello, consulted for admission - Patient admitted to [facility] Hospitalist service for further evaluation and management. I provided 36 minutes of critical care time to this patient's care outside of billable procedures. ASSESSMENT AND PLAN: Diagnosis: melanotic stool; GI bleed; COLLIN on CKD Plan: admit Past Med/Surg History Medical History Ascites Cervical disc disease CKD (chronic kidney disease), stage III Depression GAVE (gastric antral vascular ectasia) Per records GERD (gastroesophageal reflux disease) History of herniated intervertebral disc lumbar area History of SCC (squamous cell carcinoma) of skin S/p removal- follows with derm Hx of blood clots 06/2021 @ [facility]- pt reports blood clot in left arm around IV site after being discharged from hospital- no meds due to current blood loss issue- warm compresses to site per pt- 2 ultrasounds done - no current issues Hypothyroidism 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 Lumbar disc disease Oral mucositis On mouthwash daily- no recent issues Portal hypertensive gastropathy Psoriasis Psoriatic arthritis PVT (portal vein thrombosis) denies Spinal stenosis EPIDURAL INJECTIONS IN PAST FOR PAIN RELIEF TMJ arthralgia Urinary retention Urinary tract infection Wide-complex tachycardia ON CARDVEDILOL-F/U DR VANESSA LAST VISIT<1 YR AGO Surgical History H/O foot surgery excision of neuroma b/l feet History of appendectomy History of arthroscopy RT KNEE History of cataract surgery RT/LEFT History of cholecystectomy History of esophagogastroduodenoscopy (EGD) History of esophagogastroduodenoscopy (EGD) 02/08/22 Dr. Sara Cloud- EGD- Grade I esophageal varices, Portal hypertensive gastropathy History of herniorrhaphy right inguinal History of lithotripsy History of liver biopsy History of repair of rotator cuff RT/LEFT History of tooth extraction History of urologic surgery Urethral reconstruction 4 years ago at [facility] Nausea and vomiting after administration of anesthetic agent S/P colonoscopy S/P epidural steroid injection S/P orchiectomy Right age 9 for UDT S/P urological surgery (2018) BMG urethroplasty-[facility] Suprapubic catheter AND REMOVAL Family History Grandmother (Maternal) Diabetes Father Renal cancer Mother Aortic aneurysm Denies family history of Ovarian cancer Prostate cancer Myocardial infarction Breast cancer Colorectal cancer Social History Smoking Status: Never smoker Second Hand Exposure: No; Hx Alcohol Use: No Hx Substance Use: No Preferred Language: [place]ib[place]ian Communication Ability: Effective Visual Impairment: No Limitations Hearing Ability: Hard of Hearing Huller Operator Required: No Beliefs That Will Affect Care: None marital status: / Current Living Situation: Family Current Living Situation Comment: Son current occupational status: retired How many Children do You have: 1 Feels Safe at Home: Yes Diet Comment: regular caffeine: Yes during the past year weight has: decreased > 10 lbs Dental Care, Regularly: No Physical Activity Frequency: Other Physical Activity Frequency Comment: does all housework/outside work and cuts wood Seatbelt Use: never Sunscreen Use: No Assistive Devices: Cane Allergies Allergies Allergy/AdvReac Type Severity Reaction Status Date / Time tamsulosin Allergy Intermediate HIVES Verified 06/07/22 21:14 etanercept [From Enbrel] AdvReac Intermediate Increased Verified 06/07/22 21:14 infections Home Meds Home Medications Medication Instructions Recorded Confirmed vitamin B complex 1 tab PO DAILY 10/23/21 06/07/22 furosemide 20 mg tablet 20 mg PO BID 05/03/22 06/07/22 darbepoetin coretta in polysorbat 100 100 mcg subcut .COMPLEX PRN 05/23/22 06/07/22 mcg/0.5 mL in polysorbate NEEDED injection syringe acetaminophen 325 mg tablet 650 mg PO Q6 PRN pain or fever >100 06/07/22 06/07/22 diphenhydramine HCl 25 mg tablet 25 mg PO Q8 PRN Itching 06/07/22 06/07/22 (Benadryl Allergy) ondansetron HCl 4 mg tablet 4 mg PO UD PRN Nausea And Vomiting 06/07/22 06/07/22 potassium chloride 10 mEq 10 meq PO QAM 06/07/22 06/07/22 capsule,extended release spironolactone 25 mg tablet 25 mg PO QAM 06/07/22 06/07/22 Previous Rx's Medication Instructions Recorded cholecalciferol (vitamin D3) 50 50 mcg PO QAM #90 caps 05/15/21 mcg (2,000 unit) capsule lactulose 10 gram/15 mL oral 20 g (30 mL) PO BID #946 mL 09/19/21 solution adalimumab 40 mg/0.4 mL 40 mg (0.4 mL) subcut Q14D #2 ea 01/03/22 subcutaneous pen kit (Humira(CF) Pen) rifaximin 550 mg tablet (Xifaxan) 550 mg PO BID #60 tabs 01/16/22 midodrine 5 mg tablet 5 mg PO TID #180 tabs 05/03/22 pantoprazole 40 mg tablet,delayed 40 mg PO BID #60 tabs 05/16/22 release Results & Data (ED) Vital Signs Vital Signs - 24 hr 06/07/22 18:38 06/07/22 18:38 06/07/22 18:38 Temperature 36.8 C 36.8 C Temperature Source Oral Pulse Rate 107 H 108 H Pulse Rhythm Regular Pulse Strength Normal Respiratory Rate 18 18 18 Respiratory Effort / Characteristics Non-Labored Spontaneous Non-Labored Spontaneous Respiratory Depth Normal Normal Respiratory Pattern Regular Regular Blood Pressure 126/57 L 126/57 L Blood Pressure Mean 80 80 Pulse Oximetry 100 100 99 Oxygen Delivery Method Room Air Room Air Room Air Sepsis Recent Fever Within 48 Hours No Sepsis New/Unexplained Change in Mental Status No Sepsis Action Taken by Nursing No Action Required 06/07/22 18:48 06/07/22 19:29 06/07/22 19:00 Temperature Temperature Source Pulse Rate 107 H 106 H Pulse Rhythm Pulse Strength Respiratory Rate 17 Respiratory Effort / Characteristics Respiratory Depth Respiratory Pattern Blood Pressure 107/61 Blood Pressure Mean 76 Pulse Oximetry 100 100 Oxygen Delivery Method Room Air Room Air Sepsis Recent Fever Within 48 Hours Sepsis New/Unexplained Change in Mental Status Sepsis Action Taken by Nursing 06/07/22 19:43 06/07/22 21:36 Temperature Temperature Source Pulse Rate 105 H 107 H Pulse Rhythm Pulse Strength Respiratory Rate 20 19 Respiratory Effort / Characteristics Respiratory Depth Respiratory Pattern Blood Pressure 119/85 125/55 L Blood Pressure Mean 96 78 Pulse Oximetry 100 99 Oxygen Delivery Method Room Air Room Air Sepsis Recent Fever Within 48 Hours Sepsis New/Unexplained Change in Mental Status Sepsis Action Taken by Nursing Laboratory Data 06/07/22 19:07 06/07/22 19:07 Lab Results 06/07/22 06/07/22 06/07/22 Range/Units 19:07 19:07 19:07 WBC 4.20 L (4.8-10.8) K/ul RBC 2.46 L (4.70-6.10) M/uL Hgb 8.5 L (14.0-18.0) g/dl Hct 25.7 L (42.0-52.0) % MCV 104.5 H (80.0-100.0) fL MCH 34.6 H (25.0-34.0) pg MCHC 33.1 (32.0-36.0) g/dL RDW Std Deviation 91.7 H (36.4-46.3) fL RDW Coeff of Miguel 23.9 H (11.5-14.5) % Plt Count 71 L (130-400) K/uL MPV 10.3 (9.4-12.4) fL Immature Gran % (Auto) 0.2 % Neut % (Auto) 66.7 % Lymph % (Auto) 13.8 % [place] % (Auto) 15.2 % Eos % (Auto) 3.1 % Baso % (Auto) 1.0 % Neut # (Auto) 2.80 (1.40-6.50) K/uL Lymph # (Auto) 0.58 L (1.2-3.4) K/uL [place] # (Auto) 0.64 H (0.11-0.59) K/uL Eos # (Auto) 0.13 (0-0.50) K/uL Baso # (Auto) 0.04 (0-0.2) K/uL Immature Gran # (Auto) 0.01 (0.01-0.20) K/uL Polychromasia 1+ Anisocytosis Present Tear Drop Cells 1+ PT 15.9 H (9.0-12.0) Seconds INR 1.5 H (0.9-1.1) APTT 32.7 H (21.0-31.0) Seconds PTT Ratio 1.2 Sodium 133 L (136-145) mmol/L Potassium 4.2 (3.5-5.1) mmol/L Chloride 99 (98-107) mmol/L Carbon Dioxide 27 (21-32) mmol/L Anion Gap 7 (3-11) BUN 30 H (6-23) mg/dl Creatinine 2.26 H (0.6-1.4) mg/dl Est Cr Clr Drug Dosing 39.8 ml/min Est GFR ( Amer) 33.3 ml/min Est GFR (Non-Af Amer) 28.7 ml/min BUN/Creatinine Ratio 13.3 (10-20) Glucose 166 H (70-99(Fasting)) mg/dl Calcium 9.1 (8.6-10.3) mg/dl Total Bilirubin 3.3 H (0.2-1.0) mg/dl AST 37 (13-39) U/L ALT 18 (7-52) U/L Alkaline Phosphatase 121 H (34-104) U/L Total Protein 5.7 L (6.0-8.3) gm/dl Albumin 2.0 L (3.4-5.0) gm/dl Globulin 3.7 (2.5-4.0) gm/dl Albumin/Globulin Ratio 0.5 L (0.9-2) Lipase 24 (11-82) U/L SARS-CoV-2, RNA, NAAT (NEGATIVE) Blood Type Antibody Screen 06/07/22 06/07/22 Range/Units 19:16 19:39 WBC (4.8-10.8) K/ul RBC (4.70-6.10) M/uL Hgb (14.0-18.0) g/dl Hct (42.0-52.0) % MCV (80.0-100.0) fL MCH (25.0-34.0) pg MCHC (32.0-36.0) g/dL RDW Std Deviation (36.4-46.3) fL RDW Coeff of Miguel (11.5-14.5) % Plt Count (130-400) K/uL MPV (9.4-12.4) fL Immature Gran % (Auto) % Neut % (Auto) % Lymph % (Auto) % [place] % (Auto) % Eos % (Auto) % Baso % (Auto) % Neut # (Auto) (1.40-6.50) K/uL Lymph # (Auto) (1.2-3.4) K/uL [place] # (Auto) (0.11-0.59) K/uL Eos # (Auto) (0-0.50) K/uL Baso # (Auto) (0-0.2) K/uL Immature Gran # (Auto) (0.01-0.20) K/uL Polychromasia Anisocytosis Tear Drop Cells PT (9.0-12.0) Seconds INR (0.9-1.1) APTT (21.0-31.0) Seconds PTT Ratio Sodium (136-145) mmol/L Potassium (3.5-5.1) mmol/L Chloride (98-107) mmol/L Carbon Dioxide (21-32) mmol/L Anion Gap (3-11) BUN (6-23) mg/dl Creatinine (0.6-1.4) mg/dl Est Cr Clr Drug Dosing ml/min Est GFR ( Amer) ml/min Est GFR (Non-Af Amer) ml/min BUN/Creatinine Ratio (10-20) Glucose (70-99(Fasting)) mg/dl Calcium (8.6-10.3) mg/dl Total Bilirubin (0.2-1.0) mg/dl AST (13-39) U/L ALT (7-52) U/L Alkaline Phosphatase (34-104) U/L Total Protein (6.0-8.3) gm/dl Albumin (3.4-5.0) gm/dl Globulin (2.5-4.0) gm/dl Albumin/Globulin Ratio (0.9-2) Lipase (11-82) U/L SARS-CoV-2, RNA, NAAT NEGATIVE (NEGATIVE) Blood Type O Positive Antibody Screen NEGATIVE Discharge Plan Visit Data Chief Complaint: Abdominal Pain Stated Complaint: ABDOMINAL PAIN, TARRY STOOLS ED Provider: Anne Marie Arnett Discharge Problem: Acute GI bleeding, Complaint of melena, Acute kidney injury superimposed on chronic kidney disease Forms Stand Alone Forms: My [facility] Prescriptions Prescriptions: No Action cholecalciferol (vitamin D3) 50 mcg (2,000 unit) capsule 50 mcg PO QAM Qty: 90 3RF lactulose 10 gram/15 mL solution 20 g PO BID Qty: 946 3RF Humira(CF) Pen 40 mg/0.4 mL pen injector kit 40 mg subcut Q14D Qty: 2 5RF Rx Instructions: take in the morning every 14 days Xifaxan 550 mg tablet 550 mg PO BID Qty: 60 5RF pantoprazole 40 mg tablet,delayed release (DR/EC) 40 mg PO BID Qty: 60 0RF vitamin B complex Tablet 1 tab PO DAILY furosemide 20 mg tablet 20 mg PO BID midodrine 5 mg tablet 5 mg PO TID Qty: 180 3RF Rx Instructions: do not give last dose of day after 8M or within 4 hrs of bedtime darbepoetin coretta in polysorbat 100 mcg/0.5 mL syringe 100 mcg subcut .COMPLEX PRN (Reason: NEEDED) Rx Instructions: 100 mcg subcutaneously Q weekly until Hgb >9. Then resume, Q other week. Hold for Hgb >10.; ondansetron HCl 4 mg tablet 4 mg PO UD PRN (Reason: Nausea And Vomiting) acetaminophen 325 mg Tablet 650 mg PO Q6 PRN (Reason: pain or fever >100) potassium chloride 10 mEq capsule, extended release 10 meq PO QAM spironolactone 25 mg tablet 25 mg PO QAM diphenhydramine HCl [Benadryl Allergy] 25 mg Tablet 25 mg PO Q8 PRN (Reason: Itching) Rx Instructions: start 06/01/22 take for 2 weeks Referrals Referrals: Fiorella Castellano DO [Primary Care Provider] -
[2022-06-07 19:40] LABS: Basophils # (auto) 0.04 K/uL (0-0.2); Eosinophils # (auto) 0.13 K/uL (0-0.50); Eosinophils % (auto) 3.1 %; Hematocrit (blood only) 25.7 % (42.0-52.0); Hemoglobin 8.5 g/dl (14.0-18.0); Immature Granulocytes # (auto) 0.01 K/uL (0.01-0.20); Immature Granulocytes % (auto) 0.2 %; Lymphocytes # (auto) 0.58 K/uL (1.2-3.4); Lymphocytes % (auto) 13.8 %; Mean Corpuscular Hemoglobin 34.6 pg (25.0-34.0); Mean Corpuscular Hgb Conc 33.1 g/dL (32.0-36.0); Mean Corpuscular Volume 104.5 fL (80.0-100.0); Mean Platelet Volume 10.3 fL (9.4-12.4); Monocytes # (auto) 0.64 K/uL (0.11-0.59); Monocytes % (auto) 15.2 %; Neutrophils % (auto) 66.7 %; Platelet Count 71 K/uL (130-400); RDW Coefficient of Variation 23.9 % (11.5-14.5); RDW Standard Deviation 91.7 fL (36.4-46.3); Red Blood Count 2.46 M/uL (4.70-6.10)
[2022-06-07 19:56] LABS: Albumin Globulin Ratio 0.5 (0.9-2); BUN Creatinine Ratio 13.3 (10-20); Bilirubin,Total 3.3 mg/dl (0.2-1.0); Calcium 9.1 mg/dl (8.6-10.3); Creatinine Clr Calc Pharmacy 39.8 ml/min; Est GFR (African American) 33.3 ml/min; Est GFR (Non-African American) 28.7 ml/min; Globulin 3.7 gm/dl (2.5-4.0); Potassium 4.2 mmol/L (3.5-5.1); Total Protein 5.7 gm/dl (6.0-8.3)
[2022-06-07 19:58] LABS: Anisocytosis Present; Polychromasia 1+; Tear Drop Cells 1+
[2022-06-07 20:11] LABS: INR 1.5 (0.9-1.1); Partial Thromboplastin Ratio 1.2; Partial Thromboplastin Time 32.7 Seconds (21.0-31.0); Prothrombin Time 15.9 Seconds (9.0-12.0)
[2022-06-07] MEDS ORDERED: OCTREOTIDE ACETATE 50 MCG in SYRINGE 9.5 ML IV STA (22:08)
[2022-06-07] MEDS ORDERED: STAT IV STA (22:08)
[2022-06-08] MEDS ORDERED: ONDANSETRON INJ 2 MG/ML 2 ML VIAL IV PRN (00:55)
[2022-06-08] MEDS ORDERED: STAT IV STA (00:55)
[2022-06-08] MEDS: SODIUM CHLORIDE 0.9% 1000ML 1,000 ML IV SCH ×2 (01:00→18:49)
[2022-06-08] MEDS: PANTOprazole 40 MG in SYRINGE 0 ML IV SCH ×3 (01:27→21:01)
[2022-06-08 01:28] LABS: Hematocrit (blood only) 25.7 % (42.0-52.0); Hemoglobin 8.6 g/dl (14.0-18.0)
[2022-06-08] MEDS ORDERED: HYDROmorphone INJ 0.5 MG/0.5 ML SYR IV STA (01:42)
--- NOTE | 2022-06-08 01:43 | Communication Note ---
Date of Service: June 08, 2022 Was notified about patient's severe abdominal pain. Patient has history of CKD 3, SERRANO, and with strict NPO. Give 0.25 mg IV Dilaudid. Resident Activity Tracking Resident Involvement: Corporate Representative Coverage Note Care Provided: Adult Hospital Medicine
--- NOTE | 2022-06-08 05:23 | History & Physical Report ---
Date of Service June 08, 2022 The patient was seen and examined on June 07, 2022 Assessment & Plan (1) CKD (chronic kidney disease), stage III: (2) 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: (3) Hypothyroidism: (4) GERD (gastroesophageal reflux disease): (5) Psoriatic arthritis: (6) Spinal stenosis: (7) Lumbar disc disease: (8) PSVT (paroxysmal supraventricular tachycardia): (9) Portal hypertensive gastropathy: (10) Depression: (11) GAVE (gastric antral vascular ectasia): (12) Esophageal varices determined by endoscopy: Plan Upper GI bleed/GAVE/severe portal hypertensive gastropathy/grade 1 esophageal varices/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- NPO Pantoprazole 40 mg IV every 12 hours Octreotide 50 mcg IV push daily IV fluids H&H every 6 hours Serial CBC with differential, chemistry profile and magnesium levels Bleeding in the past has been thought due to the severe portal hypertensive gastropathy, as it was noted during EGD on 03/21/2022 that there was bleeding by contact Until able to take p.o., hold spironolactone, rifaximin, potassium chloride, lactulose, furosemide Consult gastroenterology, follows with Dr. Espitia, performed last EGD on 03/21/2022 Anemia- Hemoglobin 8.5 on admission with range 7.7-8.7 Follow serially above is noted Patient will accept transfusion if indicated CKD stage III- Creatinine 2.26, with range 1.55-2.24 Follow daily after hydration and/or transfusion Thrombocytopenia- Platelets 71 admission with range 44-85 Follow serially Admission and Anticipated Discharge Date Admission Date: June 07, 2022 History of Present Illness Chief Complaint: The patient presents to the emergency department with complaint of dark tarry stools, similar to episodes of GI bleed in the past. Primary Care Provider: Fiorella Castellano DO The patient is a 67-year-old male with past medical history including CKD stage III, liver 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, hypothyroidism, GERD, psoriatic arthritis, spinal stenosis, pancytopenia, psoriasis, squamous cell carcinoma of the skin, PSVT, wide-complex tachycardia, portal hypertensive gastropathy, grade 1 esophageal varices, thrombocytopenia, SNHL bilaterally, balance disorder, GI bleed, anxiety, hyponatremia and COLLIN on CKD. The patient presents to the emergency department with dark tarry stools, similar to previous symptoms of GI bleeding. Laboratories on admission: Hemoglobin 8.5, with range 7.7-8.7, thrombocytopenia with platelets 71, with range 44-85, creatinine 2.26, with range 1.55-2.24, and glucose 166 Allergies Allergy/AdvReac Type Severity Reaction Status Date / Time tamsulosin Allergy Intermediate HIVES Verified 06/07/22 21:14 etanercept [From Enbrel] AdvReac Intermediate Increased Verified 06/07/22 21:14 infections Home Medications Medication Instructions Recorded Confirmed Type cholecalciferol (vitamin D3) 50 50 mcg PO QAM #90 caps 05/15/21 06/07/22 Rx mcg (2,000 unit) capsule lactulose 10 gram/15 mL oral 20 g (30 mL) PO BID #946 mL 09/19/21 06/07/22 Rx solution vitamin B complex 1 tab PO DAILY 10/23/21 06/07/22 History adalimumab 40 mg/0.4 mL 40 mg (0.4 mL) subcut Q14D #2 ea 01/03/22 06/07/22 Rx subcutaneous pen kit (Humira(CF) Pen) rifaximin 550 mg tablet (Xifaxan) 550 mg PO BID #60 tabs 01/16/22 06/07/22 Rx furosemide 20 mg tablet 20 mg PO BID 05/03/22 06/07/22 History midodrine 5 mg tablet 5 mg PO TID #180 tabs 05/03/22 06/07/22 Rx pantoprazole 40 mg tablet,delayed 40 mg PO BID #60 tabs 05/16/22 06/07/22 Rx release darbepoetin coretta in polysorbat 100 100 mcg subcut .COMPLEX PRN 05/23/22 06/07/22 History mcg/0.5 mL in polysorbate NEEDED injection syringe acetaminophen 325 mg tablet 650 mg PO Q6 PRN pain or fever >100 06/07/22 06/07/22 History diphenhydramine HCl 25 mg tablet 25 mg PO Q8 PRN Itching 06/07/22 06/07/22 History (Benadryl Allergy) ondansetron HCl 4 mg tablet 4 mg PO UD PRN Nausea And Vomiting 06/07/22 06/07/22 History potassium chloride 10 mEq 10 meq PO QAM 06/07/22 06/07/22 History capsule,extended release spironolactone 25 mg tablet 25 mg PO QAM 06/07/22 06/07/22 History Past Med/Surg History Medical History (Updated 06/08/22 @ 05:19 by Gio Bello MD) Ascites Cervical disc disease CKD (chronic kidney disease), stage III Depression Esophageal varices determined by endoscopy GAVE (gastric antral vascular ectasia) Per records GERD (gastroesophageal reflux disease) History of herniated intervertebral disc lumbar area History of SCC (squamous cell carcinoma) of skin S/p removal- follows with derm Hx of blood clots 06/2021 @ [facility]- pt reports blood clot in left arm around IV site after being discharged from hospital- no meds due to current blood loss issue- warm compresses to site per pt- 2 ultrasounds done - no current issues Hypothyroidism 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 Lumbar disc disease Oral mucositis On mouthwash daily- no recent issues Portal hypertensive gastropathy Psoriasis Psoriatic arthritis PVT (portal vein thrombosis) denies Spinal stenosis EPIDURAL INJECTIONS IN PAST FOR PAIN RELIEF TMJ arthralgia Urinary retention Urinary tract infection Wide-complex tachycardia ON CARDVEDILOL-F/U DR VANESSA LAST VISIT<1 YR AGO Surgical History H/O foot surgery excision of neuroma b/l feet History of appendectomy History of arthroscopy RT KNEE History of cataract surgery RT/LEFT History of cholecystectomy History of esophagogastroduodenoscopy (EGD) History of esophagogastroduodenoscopy (EGD) 02/08/22 Dr. Sara Cloud- EGD- Grade I esophageal varices, Portal hypertensive gastropathy History of herniorrhaphy right inguinal History of lithotripsy History of liver biopsy History of repair of rotator cuff RT/LEFT History of tooth extraction History of urologic surgery Urethral reconstruction 4 years ago at [facility] Nausea and vomiting after administration of anesthetic agent S/P colonoscopy S/P epidural steroid injection S/P orchiectomy Right age 9 for UDT S/P urological surgery (2018) [facility] urethroplasty[place] [place] Suprapubic catheter AND REMOVAL Family History Grandmother (Maternal) Diabetes Father Renal cancer Mother Aortic aneurysm Denies family history of Ovarian cancer Prostate cancer Myocardial infarction Breast cancer Colorectal cancer Social History Smoking Status: Never smoker Second Hand Exposure: No; Hx Alcohol Use: No Hx Substance Use: No Preferred Language: Korean Communication Ability: Effective Visual Impairment: No Limitations Hearing Ability: Hard of Hearing Mortgage Processing Clerk Required: No Beliefs That Will Affect Care: None marital status: / Current Living Situation: Detention Current Living Situation Comment: Son current occupational status: retired How many Children do You have: 1 Other Information That Helps Us Care for You: No Feels Safe at Home: Yes Safety Concerns: Feels Safe At This Time Diet Comment: regular caffeine: Yes during the past year weight has: decreased > 10 lbs Dental Care, Regularly: No Physical Activity Frequency: Other Physical Activity Frequency Comment: does all housework/outside work and cuts wood Seatbelt Use: never Sunscreen Use: No Assistive Devices: Cane and Walker Review of Systems Review of Systems: The patient denies chest pain, palpitations, shortness of breath, dyspnea on exertion, cough, lower extremity swelling, sore throat, fevers, chills, sweats, weight change, fatigue, nausea, vomiting, blood in urine, dysuria, urinary frequency or urgency, lightheadedness, dizziness, headache, memory loss, loss of consciousness, imbalance, focal or generalized weakness, numbness or tingling in arms or legs, generalized arthralgias or myalgias, back or neck pain, or night sweats. The review of systems is otherwise negative other than for that already noted above, and at least 10 systems have been reviewed. Physical Exam Physical Exam: The patient is awake, alert and oriented 3, well developed and well nourished, normocephalic and atraumatic, lying in bed and in no acute distress. HEENT--PERRL, EOMI, mucous membranes and oropharynx dry. Neck--supple. No JVD. No bruits. Thyroid normal, trachea midline, no adenopathy. Heart--normal S1 and S2. No murmurs, rubs or gallops. Lungs--clear bilaterally, no respiratory distress, no accessory muscle use. Abdomen--normal bowel sounds and soft. Nontender. Nondistended, no hernias or masses, no organomegaly. Extremities--no cyanosis or clubbing. No edema. Dermatologic--normal skin turgor, normal color, no abnormal lymph nodes, no rash. Neurologic--cranial nerves II through XII grossly intact. Rheumatologic--normal range of motion. Psychiatric--normal affect. Results & Data Results & Data Vital Signs (Past 12 Hours) Vital Signs Temp Pulse Pulse Resp BP BP Pulse Ox 06/08/22 04:07 36.4 C L 95 H 16 118/77 98 06/08/22 00:51 36.6 C 100 H 22 124/70 100 06/08/22 00:30 104 H 16 95 06/08/22 00:30 99/60 L 06/08/22 00:00 103 H 17 96 06/08/22 00:00 97/59 L 06/07/22 23:30 96 H 13 98 06/07/22 23:30 104/62 06/07/22 23:00 106 H 06/07/22 21:36 107 H 19 125/55 L 99 06/07/22 19:43 105 H 20 119/85 100 06/07/22 19:00 106 H 17 107/61 100 06/07/22 19:29 100 06/07/22 18:48 107 H 06/07/22 18:38 18 99 06/07/22 18:38 36.8 C 108 H 18 126/57 L 100 06/07/22 18:38 36.8 C 107 H 18 126/57 L 100 O2 Del Method 06/08/22 04:07 Room Air 06/08/22 00:51 Room Air 06/08/22 00:30 06/08/22 00:30 06/08/22 00:00 06/08/22 00:00 06/07/22 23:30 06/07/22 23:30 06/07/22 23:00 06/07/22 21:36 Room Air 06/07/22 19:43 Room Air 06/07/22 19:00 Room Air 06/07/22 19:29 Room Air 06/07/22 18:48 06/07/22 18:38 Room Air 06/07/22 18:38 Room Air 06/07/22 18:38 Room Air Laboratory Results Laboratory Results WBC 4.20 K/ul (4.8-10.8) L 06/07/22 19:07 RBC 2.46 M/uL (4.70-6.10) L 06/07/22 19:07 Hgb 8.6 g/dl (14.0-18.0) L 06/08/22 01:10 Hct 25.7 % (42.0-52.0) L 06/08/22 01:10 MCV 104.5 fL (80.0-100.0) H 06/07/22 19:07 MCH 34.6 pg (25.0-34.0) H 06/07/22 19:07 MCHC 33.1 g/dL (32.0-36.0) 06/07/22 19:07 RDW Std Deviation 91.7 fL (36.4-46.3) H 06/07/22 19:07 RDW Coeff of Miguel 23.9 % (11.5-14.5) H 06/07/22 19:07 Plt Count 71 K/uL (130-400) L 06/07/22 19:07 MPV 10.3 fL (9.4-12.4) 06/07/22 19:07 Immature Gran % (Auto) 0.2 % 06/07/22 19:07 Neut % (Auto) 66.7 % 06/07/22 19:07 Lymph % (Auto) 13.8 % 06/07/22 19:07 [place] % (Auto) 15.2 % 06/07/22 19:07 Eos % (Auto) 3.1 % 06/07/22 19:07 Baso % (Auto) 1.0 % 06/07/22 19:07 Neut # (Auto) 2.80 K/uL (1.40-6.50) 06/07/22 19:07 Lymph # (Auto) 0.58 K/uL (1.2-3.4) L 06/07/22 19:07 [place] # (Auto) 0.64 K/uL (0.11-0.59) H 06/07/22 19:07 Eos # (Auto) 0.13 K/uL (0-0.50) 06/07/22 19:07 Baso # (Auto) 0.04 K/uL (0-0.2) 06/07/22 19:07 Immature Gran # (Auto) 0.01 K/uL (0.01-0.20) 06/07/22 19:07 Polychromasia 1+ 06/07/22 19:07 Anisocytosis Present 06/07/22 19:07 Tear Drop Cells 1+ 06/07/22 19:07 PT 15.9 Seconds (9.0-12.0) H 06/07/22 19:07 INR 1.5 (0.9-1.1) H 06/07/22 19:07 APTT 32.7 Seconds (21.0-31.0) H 06/07/22 19:07 PTT Ratio 1.2 06/07/22 19:07 Sodium 133 mmol/L (136-145) L 06/07/22 19:07 Potassium 4.2 mmol/L (3.5-5.1) 06/07/22 19:07 Chloride 99 mmol/L (98-107) 06/07/22 19:07 Carbon Dioxide 27 mmol/L (21-32) 06/07/22 19:07 Anion Gap 7 (3-11) 06/07/22 19:07 BUN 30 mg/dl (6-23) H 06/07/22 19:07 Creatinine 2.26 mg/dl (0.6-1.4) H 06/07/22 19:07 Est Cr Clr Drug Dosing 39.8 ml/min 06/07/22 19:07 Est GFR ( Amer) 33.3 ml/min 06/07/22 19:07 Est GFR (Non-Af Amer) 28.7 ml/min 06/07/22 19:07 BUN/Creatinine Ratio 13.3 (10-20) 06/07/22 19:07 Glucose 166 mg/dl (70-99(Fasting)) H 06/07/22 19:07 Calcium 9.1 mg/dl (8.6-10.3) 06/07/22 19:07 Total Bilirubin 3.3 mg/dl (0.2-1.0) H 06/07/22 19:07 AST 37 U/L (13-39) 06/07/22 19:07 ALT 18 U/L (7-52) 06/07/22 19:07 Alkaline Phosphatase 121 U/L (34-104) H 06/07/22 19:07 Total Protein 5.7 gm/dl (6.0-8.3) L 06/07/22 19:07 Albumin 2.0 gm/dl (3.4-5.0) L 06/07/22 19:07 Globulin 3.7 gm/dl (2.5-4.0) 06/07/22 19:07 Albumin/Globulin Ratio 0.5 (0.9-2) L 06/07/22 19:07 Lipase 24 U/L (11-82) 06/07/22 19:07 SARS-CoV-2, RNA, NAAT NEGATIVE (NEGATIVE) 06/07/22 19:39 Blood Type O Positive 06/07/22 19:16 Antibody Screen NEGATIVE 06/07/22 19:16 Code Status & VTE Plan Code Status Full code VTE Prophylaxis Plan VTE Prophylaxis will be ordered: Yes PG Care Time/CCT Total # of Minutes Spent Total Time Spent with Patient: Total time spent is greater than 50% in coordination of care (as documented) at patient's floor/unit and/or counseling patient: Coding Level of Care Code 40688 INT INP/OBS CARE 3/75MIN Diagnoses CKD (chronic kidney disease), stage III N18.3 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 K75.81; K74.60 Hypothyroidism E03.9 GERD (gastroesophageal reflux disease) K21.9 Psoriatic arthritis L40.50 Spinal stenosis M48.00 Lumbar disc disease M51.9 PSVT (paroxysmal supraventricular tachycardia) I47.1 Portal hypertensive gastropathy K76.6; K31.89 Depression F32.A GAVE (gastric antral vascular ectasia) K31.819 Esophageal varices determined by endoscopy I85.00
[2022-06-08 06:41] LABS: Basophils # (auto) 0.05 K/uL (0-0.2); Basophils % (auto) 1.4 %; Eosinophils # (auto) 0.22 K/uL (0-0.50); Eosinophils % (auto) 6.1 %; Hematocrit (blood only) 23.7 % (42.0-52.0); Hemoglobin 7.8 g/dl (14.0-18.0); Immature Granulocytes # (auto) 0.01 K/uL (0.01-0.20); Immature Granulocytes % (auto) 0.3 %; Lymphocytes # (auto) 0.83 K/uL (1.2-3.4); Lymphocytes % (auto) 22.9 %; Mean Corpuscular Hemoglobin 34.1 pg (25.0-34.0); Mean Corpuscular Hgb Conc 32.9 g/dL (32.0-36.0); Mean Corpuscular Volume 103.5 fL (80.0-100.0); Mean Platelet Volume 10.3 fL (9.4-12.4); Monocytes # (auto) 0.51 K/uL (0.11-0.59); Monocytes % (auto) 14.1 %; Neutrophils % (auto) 55.2 %; Platelet Count 59 K/uL (130-400); RDW Coefficient of Variation 24.5 % (11.5-14.5); RDW Standard Deviation 91.8 fL (36.4-46.3); Red Blood Count 2.29 M/uL (4.70-6.10); White Blood Count 3.62 K/ul (4.8-10.8)
[2022-06-08 07:01] LABS: Albumin Globulin Ratio 0.6 (0.9-2); Albumin Level 1.9 gm/dl (3.4-5.0); BUN Creatinine Ratio 14.8 (10-20); Calcium 9.1 mg/dl (8.6-10.3); Creatinine Clr Calc Pharmacy 41.8 ml/min; Est GFR (African American) 36.4 ml/min; Est GFR (Non-African American) 31.4 ml/min; Globulin 3.3 gm/dl (2.5-4.0); Magnesium 1.9 mg/dl (1.7-2.4); Potassium 4.8 mmol/L (3.5-5.1); Total Protein 5.2 gm/dl (6.0-8.3)
[2022-06-08 07:10] LABS: INR 1.5 (0.9-1.1); Partial Thromboplastin Ratio 1.2; Partial Thromboplastin Time 32.2 Seconds (21.0-31.0); Prothrombin Time 15.8 Seconds (9.0-12.0)
[2022-06-08 07:42] LABS: Anisocytosis Present; Polychromasia 1+; Tear Drop Cells 1+
[2022-06-08] MEDS: OCTREOTIDE ACETATE 50 MCG in SYRINGE 9.5 ML IV SCH (07:52)
[2022-06-08] MEDS ORDERED: SODIUM CHLORIDE 0.9% 250 ML IV PRN ×2 (08:50→12:22)
[2022-06-08 13:01] LABS: Hematocrit (blood only) 23.8 % (42.0-52.0); Hemoglobin 7.9 g/dl (14.0-18.0)
--- NOTE | 2022-06-08 18:11 | Communication Note ---
Date of Service: June 08, 2022 Seen in follow-up from early a.m. admission. He is feeling remarkably okay. Is not lightheaded whenever I see himalthough he has not really been up much. Later in discussion with nursing, whenever he stood up he became quite orthostatic. His stomach also hurtsepigastric pain that radiates down periumbilically. Vitals noted, in general he is surprisingly in no distress and actually looks better overall just at the bedside than whenever I was taking care of him a few weeks ago simply for deconditioning. Normocephalic atraumatic mucous membranes moist. Abdomen is soft but he does have epigastric tenderness more than but along with diffuse abdominal tenderness, no guarding rebound or rigidity. Acute blood loss anemia with borderline hemorrhagic shock/soft blood pressuresin the context of what appears to be upper GI bleeding related most likely to GAVE, less likely varicealresulting in acute kidney failure superimposed on CKD3. Anemia worse, but pancytopenia in the context of his He[place] cirrhosis. Acute blood loss anemia with blood pressures being low and orthostatics markedly positivetransfuse 1 unit, 2 more on hold, 2 IVs. Await GI input, anticipate EGD. Continue Protonix and octreotide. Continue close monitoring and serial hemoglobins. Blood still on hold. Weakness/deconditioningfortunately was progressing at rehab prior to this bleed. DVT prophylaxispharmacologic contraindicated due to GI bleeding/acute blood loss anemia. Does have SCDs ordered
[2022-06-08 19:42] LABS: Hematocrit (blood only) 28.2 % (42.0-52.0); Hemoglobin 9.4 g/dl (14.0-18.0)
--- NOTE | 2022-06-09 05:25 | Electrocardiogram Report ---
Test Reason : Blood Pressure : / mmHG Vent. Rate : 111 BPM Atrial Rate : 111 BPM P-R Int : 180 ms QRS Dur : 080 ms QT Int : 332 ms P-R-T Axes : 036 -22 007 degrees QTc Int : 451 ms Sinus tachycardia Anterior infarct , age undetermined Abnormal ECG When compared with ECG of 23-MAY-2022 11:21, No significant change was found Confirmed by Pepe Clarke ([id number]) on 06/09/2022 5:25:24 AM Referred By: REFERRED SELF Confirmed By:Pepe Clarke
--- NOTE | 2022-06-09 05:46 | Electrocardiogram Report ---
Test Reason : Blood Pressure : / mmHG Vent. Rate : 082 BPM Atrial Rate : 082 BPM P-R Int : 170 ms QRS Dur : 092 ms QT Int : 382 ms P-R-T Axes : 030 -13 025 degrees QTc Int : 446 ms Poor data quality, interpretation may be adversely affected Sinus rhythm with Premature atrial complexes Low voltage QRS Borderline ECG When compared with ECG of 07-JUN-2022 19:36, Premature atrial complexes are now Present Criteria for Anterior infarct are no longer Present Confirmed by Pepe Clarke ([id number]) on 06/09/2022 5:46:33 AM Referred By: REFERRED SELF Confirmed By:Pepe Clarke
[2022-06-09 06:40] LABS: Basophils # (auto) 0.05 K/uL (0-0.2); Basophils % (auto) 1.5 %; Eosinophils # (auto) 0.15 K/uL (0-0.50); Eosinophils % (auto) 4.5 %; Hematocrit (blood only) 25.5 % (42.0-52.0); Hemoglobin 8.5 g/dl (14.0-18.0); Immature Granulocytes # (auto) 0.02 K/uL (0.01-0.20); Immature Granulocytes % (auto) 0.6 %; Lymphocytes # (auto) 0.65 K/uL (1.2-3.4); Lymphocytes % (auto) 19.3 %; Mean Corpuscular Hemoglobin 34.1 pg (25.0-34.0); Mean Corpuscular Hgb Conc 33.3 g/dL (32.0-36.0); Mean Corpuscular Volume 102.4 fL (80.0-100.0); Mean Platelet Volume 8.6 fL (9.4-12.4); Monocytes # (auto) 0.44 K/uL (0.11-0.59); Monocytes % (auto) 13.1 %; Neutrophils # (auto) 2.06 K/uL (1.40-6.50); Platelet Count 49 K/uL (130-400); RDW Coefficient of Variation 24.5 % (11.5-14.5); RDW Standard Deviation 90.5 fL (36.4-46.3); Red Blood Count 2.49 M/uL (4.70-6.10); White Blood Count 3.37 K/ul (4.8-10.8)
[2022-06-09 07:03] LABS: Anisocytosis Present
[2022-06-09 07:12] LABS: Albumin Globulin Ratio 0.5 (0.9-2); Albumin Level 1.8 gm/dl (3.4-5.0); Bilirubin,Total 5.7 mg/dl (0.2-1.0); Calcium 8.9 mg/dl (8.6-10.3); Creatinine Clr Calc Pharmacy 45.4 ml/min; Est GFR (Non-African American) 34.6 ml/min; Globulin 3.5 gm/dl (2.5-4.0); Magnesium 1.8 mg/dl (1.7-2.4); Potassium 4.2 mmol/L (3.5-5.1); Total Protein 5.3 gm/dl (6.0-8.3)
[2022-06-09 07:29] LABS: INR 1.5 (0.9-1.1); Partial Thromboplastin Ratio 1.2; Partial Thromboplastin Time 33.9 Seconds (21.0-31.0); Prothrombin Time 15.8 Seconds (9.0-12.0)
[2022-06-09] MEDS: PANTOprazole 40 MG in SYRINGE 0 ML IV SCH ×2 (08:13→21:49)
[2022-06-09] MEDS: OCTREOTIDE ACETATE 50 MCG in SYRINGE 9.5 ML IV SCH (08:14)
[2022-06-09] MEDS: SODIUM CHLORIDE 0.9% 1000ML 1,000 ML IV SCH (11:15)
--- NOTE | 2022-06-09 13:47 | Hospitalist Progress Note ---
Date of Service June 09, 2022 Assessment & Plan (1) GIB (gastrointestinal bleeding): Plan: Acute blood loss anemia secondary to likely GI bleed - Borderline hemorrhagic shock/soft blood pressures on admission - Appears to have been upper GI bleed, most likely related to GAVE - On admission, Hgb 8.5 (baseline range 7.7-8.7). He did receive 1 unit PRBC transfusion on 06/08 due to symptomatic anemia. Hgb today, 06/09, stable at 8.5 - Patient has been type and screened. Blood products on hold - Continue protonix and octreotide - Zofran prn nausea - Continue gentle hydration with IVF NSS at 60 cc/hr - Recheck CBC in AM COLLIN on CKD Stage 3 - Cr on admission 2.26 (baseline range 1.55-2.24) - Improving after hydration and transfusion. - Continue to trend Thrombocytopenia - Platelets 71 on admission (baseline range 44-85) - Continue to trend Weakness/Deconditioning - Fortunately was progressing at rehab prior to this bleed - Patient attempting to stay active w/ ad yobani activity as tolerated FENGI: clear liquid diet DVT ppx: pharmacologic dvt ppx contraindicated due to GI bleed/acute blood loss anemia; SCDs ordered Dispo: continue admission on PCU, anticipate discharge when stable/hopeful for discharge tomorrow Code status: FULL CODE (2) Acute blood loss anemia: (3) Thrombocytopenia: (4) Dizziness: (5) CKD (chronic kidney disease), stage III: (6) GERD (gastroesophageal reflux disease): (7) Depression: (8) GAVE (gastric antral vascular ectasia): Admission and Anticipated Discharge Date Admission Date: June 07, 2022 Supervising Physician Co-Signing Physician Notes I personally examined the patient and verified all [place] points of history and exam, discussed case, and agree with decision making with Dr Oglesby Feeling much better. Walking the halls. Apparently still somewhat tachycardic with exertion but not really feeling it. Still black stools, but much more formed. Eating and abdominal pain has resolved. After discussion with gastroenterologyEGD would be of no benefitgiven that he is not an extremis, it is obviously not variceal bleeding. APC apparently does not really play much of any meaningful role in portal hypertensive gastropathy, and the discussion of TIPS procedure really only becomes risk/benefit relevant if he is essentially crashing from hemorrhage. Vitals noted, in general he is awake and alert pleasant no distress. HEENT normocephalic atraumatic mucous membranes moist. Breathing unlabored no accessory muscle use good effort. Skin shows no rashes no pallor or icterus. CBC and basic metabolic panel noted. Acute blood loss anemia with borderline hemorrhagic shock/soft blood pressuresin the context of what appears to be upper GI bleeding related most likely to GAVE, less likely varicealresulting in acute kidney failure superimposed on CKD3. Anemia worse, but pancytopenia in the context of his [place] cirrhosis. Acute blood loss anemia with blood pressures previously being low and orthostatics markedly positivetransfused 1 unit, 2 more on hold, but appears that he will not need further. Bleeding appears to be stopping. Advance diet. Stop octreotide. Weakness/deconditioningfortunately was progressing at rehab prior to this b ezio. DVT prophylaxispharmacologic contraindicated due to GI bleeding/acute blood loss anemia. Does have SCDs ordered Subjective Patient seen and evaluated at bedside this morning. No acute events reported overnight. States that he overall "feels much better." Had a bowel movement this morning which he reports was still black but not tarry and more formed. Patient has been ambulating through the unit without dizziness or lightheadedness; nursing does note that he becomes tachycardic (up to HR 140s) with ambulation. Patient denies palpitations. No lightheadedness or dizziness at rest or with exertion. No SOB or CP at rest or with exertion. Has tolerated clear liquid diet this AM w/o nausea. Review of Systems Review of Systems: See HPI Physical Exam Physical Exam: GENERAL: Sitting in bed in no acute distress. Pleasant. WD/WN. Vital signs reviewed as above. EYES: EOMI. + scleral icterus. HENT: Moist mucous membranes. RESPIRATORY: Clear to auscultation bilaterally. No wheezing, rales, or rhonchi. CARDIOVASCULAR: Regular rate and rhythm. ABDOMEN: Soft. No specific tenderness to palpation. Normal bowel sounds. EXTREMITIES: No gross deformities. Non-tender. SKIN: Warm, dry. NEUROLOGIC: A/O x3. Normal speech. No focal neurological deficits. PSYCHIATRIC: Cooperative. Appropriate mood and affect. Results & Data Results & Data Vital Signs (Past 12 Hours) Vital Signs Temp Pulse Pulse Resp BP Pulse Ox O2 Del Method 06/09/22 11:19 36.7 C 102 H 17 105/67 100 Room Air 06/09/22 11:19 105 H 06/09/22 07:45 36.7 C 108 H 18 97/54 L 97 Room Air 06/09/22 03:41 36.8 C 111 H 17 92/57 L 97 Room Air Laboratory Results 06/09/22 06/09/22 06/09/22 Range/Units 06:03 06:03 06:03 WBC 3.37 L (4.8-10.8) K/ul RBC 2.49 L (4.70-6.10) M/uL Hgb 8.5 L (14.0-18.0) g/dl Hct 25.5 L (42.0-52.0) % MCV 102.4 H (80.0-100.0) fL MCH 34.1 H (25.0-34.0) pg MCHC 33.3 (32.0-36.0) g/dL RDW Std Deviation 90.5 H (36.4-46.3) fL RDW Coeff of Miguel 24.5 H (11.5-14.5) % Plt Count 49 L (130-400) K/uL MPV 8.6 L (9.4-12.4) fL Immature Gran % (Auto) 0.6 % Neut % (Auto) 61.0 % Lymph % (Auto) 19.3 % [place] % (Auto) 13.1 % Eos % (Auto) 4.5 % Baso % (Auto) 1.5 % Neut # (Auto) 2.06 (1.40-6.50) K/uL Lymph # (Auto) 0.65 L (1.2-3.4) K/uL [place] # (Auto) 0.44 (0.11-0.59) K/uL Eos # (Auto) 0.15 (0-0.50) K/uL Baso # (Auto) 0.05 (0-0.2) K/uL Immature Gran # (Auto) 0.02 (0.01-0.20) K/uL Anisocytosis Present PT 15.8 H (9.0-12.0) Seconds INR 1.5 H (0.9-1.1) APTT 33.9 H (21.0-31.0) Seconds PTT Ratio 1.2 Sodium 138 (136-145) mmol/L Potassium 4.2 (3.5-5.1) mmol/L Chloride 106 (98-107) mmol/L Carbon Dioxide 27 (21-32) mmol/L Anion Gap 5 (3-11) BUN 35 H (6-23) mg/dl Creatinine 1.94 H (0.6-1.4) mg/dl Est Cr Clr Drug Dosing 45.4 ml/min Est GFR ( Amer) 40.0 ml/min Est GFR (Non-Af Amer) 34.6 ml/min BUN/Creatinine Ratio 18.0 (10-20) Glucose 91 (70-99(Fasting)) mg/dl Calcium 8.9 (8.6-10.3) mg/dl Magnesium 1.8 (1.7-2.4) mg/dl Total Bilirubin 5.7 H (0.2-1.0) mg/dl AST 36 (13-39) U/L ALT 16 (7-52) U/L Alkaline Phosphatase 76 (34-104) U/L Total Protein 5.3 L (6.0-8.3) gm/dl Albumin 1.8 L (3.4-5.0) gm/dl Globulin 3.5 (2.5-4.0) gm/dl Albumin/Globulin Ratio 0.5 L (0.9-2) 06/08/22 Range/Units 19:08 WBC (4.8-10.8) K/ul RBC (4.70-6.10) M/uL Hgb 9.4 L (14.0-18.0) g/dl Hct 28.2 L (42.0-52.0) % MCV (80.0-100.0) fL MCH (25.0-34.0) pg MCHC (32.0-36.0) g/dL RDW Std Deviation (36.4-46.3) fL RDW Coeff of Miguel (11.5-14.5) % Plt Count (130-400) K/uL MPV (9.4-12.4) fL Immature Gran % (Auto) % Neut % (Auto) % Lymph % (Auto) % [place] % (Auto) % Eos % (Auto) % Baso % (Auto) % Neut # (Auto) (1.40-6.50) K/uL Lymph # (Auto) (1.2-3.4) K/uL [place] # (Auto) (0.11-0.59) K/uL Eos # (Auto) (0-0.50) K/uL Baso # (Auto) (0-0.2) K/uL Immature Gran # (Auto) (0.01-0.20) K/uL Anisocytosis PT (9.0-12.0) Seconds INR (0.9-1.1) APTT (21.0-31.0) Seconds PTT Ratio Sodium (136-145) mmol/L Potassium (3.5-5.1) mmol/L Chloride (98-107) mmol/L Carbon Dioxide (21-32) mmol/L Anion Gap (3-11) BUN (6-23) mg/dl Creatinine (0.6-1.4) mg/dl Est Cr Clr Drug Dosing ml/min Est GFR ( Amer) ml/min Est GFR (Non-Af Amer) ml/min BUN/Creatinine Ratio (10-20) Glucose (70-99(Fasting)) mg/dl Calcium (8.6-10.3) mg/dl Magnesium (1.7-2.4) mg/dl Total Bilirubin (0.2-1.0) mg/dl AST (13-39) U/L ALT (7-52) U/L Alkaline Phosphatase (34-104) U/L Total Protein (6.0-8.3) gm/dl Albumin (3.4-5.0) gm/dl Globulin (2.5-4.0) gm/dl Albumin/Globulin Ratio (0.9-2) Resident Activity Tracking Resident Involvement: Resident Care Provided Care Provided: Adult Hospital Medicine (1) GIB (gastrointestinal bleeding) GI bleed type/associated pathology: melena Qualified Code(s): K92.1 - Melena
--- NOTE | 2022-06-09 19:15 | Billing Data ---
Date of Service June 09, 2022 Coding Level of Care Code 97617 SUB INP/OBS CARE MIN
[2022-06-10] MEDS: SODIUM CHLORIDE 0.9% 1000ML 1,000 ML IV SCH (02:50)
[2022-06-10 06:28] LABS: Basophils # (auto) 0.03 K/uL (0-0.2); Eosinophils # (auto) 0.25 K/uL (0-0.50); Eosinophils % (auto) 8.4 %; Hematocrit (blood only) 23.3 % (42.0-52.0); Hemoglobin 7.6 g/dl (14.0-18.0); Immature Granulocytes # (auto) 0.01 K/uL (0.01-0.20); Immature Granulocytes % (auto) 0.3 %; Lymphocytes # (auto) 0.65 K/uL (1.2-3.4); Lymphocytes % (auto) 21.7 %; Mean Corpuscular Hemoglobin 34.1 pg (25.0-34.0); Mean Corpuscular Hgb Conc 32.6 g/dL (32.0-36.0); Mean Corpuscular Volume 104.5 fL (80.0-100.0); Mean Platelet Volume 10.4 fL (9.4-12.4); Monocytes # (auto) 0.43 K/uL (0.11-0.59); Monocytes % (auto) 14.4 %; Neutrophils # (auto) 1.62 K/uL (1.40-6.50); Neutrophils % (auto) 54.2 %; Platelet Count 47 K/uL (130-400); RDW Coefficient of Variation 23.9 % (11.5-14.5); RDW Standard Deviation 90.8 fL (36.4-46.3); Red Blood Count 2.23 M/uL (4.70-6.10); White Blood Count 2.99 K/ul (4.8-10.8)
[2022-06-10 06:49] LABS: Albumin Globulin Ratio 0.5 (0.9-2); Albumin Level 1.8 gm/dl (3.4-5.0); BUN Creatinine Ratio 17.3 (10-20); Bilirubin,Total 3.2 mg/dl (0.2-1.0); Calcium 8.7 mg/dl (8.6-10.3); Creatinine Clr Calc Pharmacy 50.1 ml/min; Est GFR (African American) 44.1 ml/min; Est GFR (Non-African American) 38.1 ml/min; Globulin 3.4 gm/dl (2.5-4.0); Magnesium 1.8 mg/dl (1.7-2.4); Potassium 4.1 mmol/L (3.5-5.1); Total Protein 5.2 gm/dl (6.0-8.3)
[2022-06-10 07:09] LABS: INR 1.5 (0.9-1.1); Partial Thromboplastin Ratio 1.2; Partial Thromboplastin Time 33.4 Seconds (21.0-31.0); Prothrombin Time 15.7 Seconds (9.0-12.0)
[2022-06-10 07:12] LABS: Anisocytosis Present; Echinocytes 2+
[2022-06-10] MEDS: PANTOprazole 40 MG in SYRINGE 0 ML IV SCH (08:20)
[2022-06-10 13:08] LABS: Hematocrit (blood only) 24.5 % (42.0-52.0); Hemoglobin 8.1 g/dl (14.0-18.0)
--- NOTE | 2022-06-10 14:03 | Discharge Summary ---
Date of Service June 10, 2022 Admission HPI Per Admitting Provider The patient is a 67-year-old male with past medical history including CKD stage III, liver 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, hypothyroidism, GERD, psoriatic arthritis, spinal stenosis, pancytopenia, psoriasis, squamous cell carcinoma of the skin, PSVT, wide-complex tachycardia, portal hypertensive gastropathy, grade 1 esophageal varices, thrombocytopenia, SNHL bilaterally, balance disorder, GI bleed, anxiety, hyponatremia and COLLIN on CKD. The patient presents to the emergency department with dark tarry stools, similar to previous symptoms of GI bleeding. Laboratories on admission: Hemoglobin 8.5, with range 7.7-8.7, thrombocytopenia with platelets 71, with range 44-85, creatinine 2.26, with range 1.55-2.24, and glucose 166 Admission Exam Per Admitting Provider The patient is awake, alert and oriented 3, well developed and well nourished, normocephalic and atraumatic, lying in bed and in no acute distress. HEENT--PERRL, EOMI, mucous membranes and oropharynx dry. Neck--supple. No JVD. No bruits. Thyroid normal, trachea midline, no adenopathy. Heart--normal S1 and S2. No murmurs, rubs or gallops. Lungs--clear bilaterally, no respiratory distress, no accessory muscle use. Abdomen--normal bowel sounds and soft. Nontender. Nondistended, no hernias or masses, no organomegaly. Extremities--no cyanosis or clubbing. No edema. Dermatologic--normal skin turgor, normal color, no abnormal lymph nodes, no rash. Neurologic--cranial nerves II through XII grossly intact. Rheumatologic--normal range of motion. Psychiatric--normal affect. Principal Diagnosis acute blood loss anemia secondary to likely upper GI bleed Discharge Exam GENERAL: Sitting in bed in no acute distress. Pleasant. WD/WN. Vital signs reviewed as above. EYES: EOMI. + scleral icterus. HENT: Moist mucous membranes. RESPIRATORY: Clear to auscultation bilaterally. No wheezing, rales, or rhonchi. CARDIOVASCULAR: Regular rate and rhythm. ABDOMEN: Soft. Non-tender to palpation. Normal bowel sounds. EXTREMITIES: No gross deformities. Non-tender. BLE non-pitting edema. SKIN: Warm, dry. NEUROLOGIC: A/O x3. Normal speech. No focal neurological deficits. PSYCHIATRIC: Cooperative. Appropriate mood and affect. Discharge Data Allergies Allergy/AdvReac Type Severity Reaction Status Date / Time tamsulosin Allergy Intermediate HIVES Verified 06/08/22 09:08 etanercept [From Enbrel] AdvReac Intermediate Increased Verified 06/08/22 09:08 infections Consultations 06/07/22 20:37 ED Decision to Admit Stat Ordered Studies Labs 06/07/22 06/07/22 06/07/22 19:07 19:07 19:07 WBC 4.20 L RBC 2.46 L Hgb 8.5 L Hct 25.7 L MCV 104.5 H MCH 34.6 H MCHC 33.1 RDW Std Deviation 91.7 H RDW Coeff of Miguel 23.9 H Plt Count 71 L MPV 10.3 Immature Gran % (Auto) 0.2 Neut % (Auto) 66.7 Lymph % (Auto) 13.8 Russell % (Auto) 15.2 Eos % (Auto) 3.1 Baso % (Auto) 1.0 Neut # (Auto) 2.80 Lymph # (Auto) 0.58 L Russell # (Auto) 0.64 H Eos # (Auto) 0.13 Baso # (Auto) 0.04 Immature Gran # (Auto) 0.01 Polychromasia 1+ Anisocytosis Present Tear Drop Cells 1+ Echinocytes PT 15.9 H INR 1.5 H APTT 32.7 H PTT Ratio 1.2 Sodium 133 L Potassium 4.2 Chloride 99 Carbon Dioxide 27 Anion Gap 7 BUN 30 H Creatinine 2.26 H Est Cr Clr Drug Dosing 39.8 Est GFR ( Amer) 33.3 Est GFR (Non-Af Amer) 28.7 BUN/Creatinine Ratio 13.3 Glucose 166 H Calcium 9.1 Magnesium Total Bilirubin 3.3 H AST 37 ALT 18 Alkaline Phosphatase 121 H Total Protein 5.7 L Albumin 2.0 L Globulin 3.7 Albumin/Globulin Ratio 0.5 L Lipase 24 SARS-CoV-2, RNA, NAAT Blood Type Antibody Screen Crossmatch 06/07/22 06/07/22 06/08/22 19:16 19:39 01:10 WBC RBC Hgb 8.6 L Hct 25.7 L MCV MCH MCHC RDW Std Deviation RDW Coeff of Miguel Plt Count MPV Immature Gran % (Auto) Neut % (Auto) Lymph % (Auto) Russell % (Auto) Eos % (Auto) Baso % (Auto) Neut # (Auto) Lymph # (Auto) Russell # (Auto) Eos # (Auto) Baso # (Auto) Immature Gran # (Auto) Polychromasia Anisocytosis Tear Drop Cells Echinocytes PT INR APTT PTT Ratio Sodium Potassium Chloride Carbon Dioxide Anion Gap BUN Creatinine Est Cr Clr Drug Dosing Est GFR ( Amer) Est GFR (Non-Af Amer) BUN/Creatinine Ratio Glucose Calcium Magnesium Total Bilirubin AST ALT Alkaline Phosphatase Total Protein Albumin Globulin Albumin/Globulin Ratio Lipase SARS-CoV-2, RNA, NAAT NEGATIVE Blood Type O Positive Antibody Screen NEGATIVE Crossmatch See Detail 06/08/22 06/08/22 06/08/22 05:42 05:42 05:42 WBC 3.62 L RBC 2.29 L Hgb 7.8 L Hct 23.7 L MCV 103.5 H MCH 34.1 H MCHC 32.9 RDW Std Deviation 91.8 H RDW Coeff of Miguel 24.5 H Plt Count 59 L MPV 10.3 Immature Gran % (Auto) 0.3 Neut % (Auto) 55.2 Lymph % (Auto) 22.9 Russell % (Auto) 14.1 Eos % (Auto) 6.1 Baso % (Auto) 1.4 Neut # (Auto) 2.00 Lymph # (Auto) 0.83 L Russell # (Auto) 0.51 Eos # (Auto) 0.22 Baso # (Auto) 0.05 Immature Gran # (Auto) 0.01 Polychromasia 1+ Anisocytosis Present Tear Drop Cells 1+ Echinocytes PT 15.8 H INR 1.5 H APTT 32.2 H PTT Ratio 1.2 Sodium 136 Potassium 4.8 Chloride 103 Carbon Dioxide 30 Anion Gap 3 BUN 31 H Creatinine 2.10 H Est Cr Clr Drug Dosing 41.8 Est GFR ( Amer) 36.4 Est GFR (Non-Af Amer) 31.4 BUN/Creatinine Ratio 14.8 Glucose 110 H Calcium 9.1 Magnesium 1.9 Total Bilirubin 4.0 H AST 31 ALT 17 Alkaline Phosphatase 101 Total Protein 5.2 L Albumin 1.9 L Globulin 3.3 Albumin/Globulin Ratio 0.6 L Lipase SARS-CoV-2, RNA, NAAT Blood Type Antibody Screen Crossmatch 06/08/22 06/08/22 06/09/22 12:38 19:08 06:03 WBC 3.37 L RBC 2.49 L Hgb 7.9 L 9.4 L 8.5 L Hct 23.8 L 28.2 L 25.5 L MCV 102.4 H MCH 34.1 H MCHC 33.3 RDW Std Deviation 90.5 H RDW Coeff of Miguel 24.5 H Plt Count 49 L MPV 8.6 L Immature Gran % (Auto) 0.6 Neut % (Auto) 61.0 Lymph % (Auto) 19.3 Russell % (Auto) 13.1 Eos % (Auto) 4.5 Baso % (Auto) 1.5 Neut # (Auto) 2.06 Lymph # (Auto) 0.65 L Russell # (Auto) 0.44 Eos # (Auto) 0.15 Baso # (Auto) 0.05 Immature Gran # (Auto) 0.02 Polychromasia Anisocytosis Present Tear Drop Cells Echinocytes PT INR APTT PTT Ratio Sodium Potassium Chloride Carbon Dioxide Anion Gap BUN Creatinine Est Cr Clr Drug Dosing Est GFR ( Amer) Est GFR (Non-Af Amer) BUN/Creatinine Ratio Glucose Calcium Magnesium Total Bilirubin AST ALT Alkaline Phosphatase Total Protein Albumin Globulin Albumin/Globulin Ratio Lipase SARS-CoV-2, RNA, NAAT Blood Type Antibody Screen Crossmatch 06/09/22 06/09/22 06/10/22 06:03 06:03 05:25 WBC 2.99 L RBC 2.23 L Hgb 7.6 L Hct 23.3 L MCV 104.5 H MCH 34.1 H MCHC 32.6 RDW Std Deviation 90.8 H RDW Coeff of Miguel 23.9 H Plt Count 47 L MPV 10.4 Immature Gran % (Auto) 0.3 Neut % (Auto) 54.2 Lymph % (Auto) 21.7 Russell % (Auto) 14.4 Eos % (Auto) 8.4 Baso % (Auto) 1.0 Neut # (Auto) 1.62 Lymph # (Auto) 0.65 L Russell # (Auto) 0.43 Eos # (Auto) 0.25 Baso # (Auto) 0.03 Immature Gran # (Auto) 0.01 Polychromasia Anisocytosis Present Tear Drop Cells Echinocytes 2+ PT 15.8 H INR 1.5 H APTT 33.9 H PTT Ratio 1.2 Sodium 138 Potassium 4.2 Chloride 106 Carbon Dioxide 27 Anion Gap 5 BUN 35 H Creatinine 1.94 H Est Cr Clr Drug Dosing 45.4 Est GFR ( Amer) 40.0 Est GFR (Non-Af Amer) 34.6 BUN/Creatinine Ratio 18.0 Glucose 91 Calcium 8.9 Magnesium 1.8 Total Bilirubin 5.7 H AST 36 ALT 16 Alkaline Phosphatase 76 Total Protein 5.3 L Albumin 1.8 L Globulin 3.5 Albumin/Globulin Ratio 0.5 L Lipase SARS-CoV-2, RNA, NAAT Blood Type Antibody Screen Crossmatch 06/10/22 06/10/22 06/10/22 05:25 05:25 12:55 WBC RBC Hgb 8.1 L Hct 24.5 L MCV MCH MCHC RDW Std Deviation RDW Coeff of Miguel Plt Count MPV Immature Gran % (Auto) Neut % (Auto) Lymph % (Auto) Russell % (Auto) Eos % (Auto) Baso % (Auto) Neut # (Auto) Lymph # (Auto) Russell # (Auto) Eos # (Auto) Baso # (Auto) Immature Gran # (Auto) Polychromasia Anisocytosis Tear Drop Cells Echinocytes PT 15.7 H INR 1.5 H APTT 33.4 H PTT Ratio 1.2 Sodium 134 L Potassium 4.1 Chloride 104 Carbon Dioxide 27 Anion Gap 3 BUN 31 H Creatinine 1.79 H Est Cr Clr Drug Dosing 50.1 Est GFR ( Amer) 44.1 Est GFR (Non-Af Amer) 38.1 BUN/Creatinine Ratio 17.3 Glucose 107 H Calcium 8.7 Magnesium 1.8 Total Bilirubin 3.2 H AST 36 ALT 16 Alkaline Phosphatase 76 Total Protein 5.2 L Albumin 1.8 L Globulin 3.4 Albumin/Globulin Ratio 0.5 L Lipase SARS-CoV-2, RNA, NAAT Blood Type Antibody Screen Crossmatch Hospital Course (1) GIB (gastrointestinal bleeding): Acute blood loss anemia secondary to likely GI bleed - Borderline hemorrhagic shock/soft blood pressures on admission - Appears to have been upper GI bleed, most likely related to GAVE - On admission, Hgb 8.5 (baseline range 7.7-8.7). He did receive 1 unit PRBC transfusion on 06/08 due to symptomatic anemia. Hgb on day of discharge is stable at 8.1 - Patient to continue protonix 40mg po BID for a total of 14 days, then return to baseline regimen with protonix 40mg po daily - Rx given for Zofran prn nausea COLLIN on CKD Stage 3 - Cr on admission 2.26 (baseline range 1.55-2.24) - Improved after hydration and transfusion. Thrombocytopenia - Platelets 71,000 on admission (baseline range 44-85); 47,000 on discharge Weakness/Deconditioning - Fortunately was progressing at rehab prior to this bleed - Patient plans to engage in home health / PT on discharge (2) Acute blood loss anemia: (3) Thrombocytopenia: (4) Dizziness: (5) CKD (chronic kidney disease), stage III: (6) GERD (gastroesophageal reflux disease): (7) Depression: (8) GAVE (gastric antral vascular ectasia): Total Time Total Time Spent Total Time Spent (In Minutes): < 30 min Discharge Plan Discharge Items Patient Disposition: Home - Self-Care Reason For Visit: UGI BLEED Discharge Diagnosis: UGI Bleed Activity: Per Instructions section Non-emergency contact: Primary Care Provider Call non-emergency contact if: you have any medication questions and your symptoms worsen Follow-up/Referrals: Fiorella Castellano DO [Primary Care Provider] - Diet: Low Sodium (2gm) Addtl Attending Provider Instructions: It was our pleasure to care for you at [facility] from 06/08/22 to 06/10/22. You initially presented to the emergency room with dark tarry stools, with what appears to have been an upper GI bleed. Thankfully, you were fairly asymptomatic and did not have any significant lightheadedness, dizziness, or SOB. You did receive 1 unit of blood via transfusion due to acute worsening of your anemia due to the GI bleed. You have done well and at this time we feel that it is safe for you to be discharged home.You should follow up with home health as previously recommended/scheduled. A discharge summary will be sent to your primary care physician to ensure continuity of care. Please bring this discharge summary with you to your next office appointment so that your provider can review it at that time. Follow-up appointments: Make a follow-up appointment with your PCP within the next week. It is very important that you follow up with them shortly after discharge from the hospital. Keep all your follow-up appointments as already scheduled. If you cannot make an appointment, notify your provider. Medications: Your medication list has been reviewed and reconciled upon discharge to ensure accuracy and continuity of care. An updated list of all your medications is included with your hospital discharge paperwork. Please review this list closel y, and make note of any changes. You should take your pantoprazole 40mg tablet TWICE a day until 06/22 (for a total of 2 weeks) and then return to your normal dose of pa ntoprazole 40mg once daily thereafter. You should follow up with your primary care doctor within the next week. If you have any issues filling these prescriptions, please call [phone] and ask to leave a message for Dr. Oglesby. Take your medications as instructed; do not skip a dose of your medicines. Make sure all of your doctors know every medicine you are taking (including [id number] medicines, vitamins, and supplements). Call your primary care provider before taking any new medicines (including over- the- counter medicines, vitamins, and supplements), because some of these may interact with your current medications, or may make your symptoms worse. Tell your primary care provider if you cannot afford your medications. CONTACT YOUR PRIMARY CARE PROVIDER if you experience any of the following: Worsening of symptoms Fever, chills, or fatigue Difficulty following your treatment plan, or difficulty taking medications CALL 911 OR GO TO THE EMERGENCY DEPARTMENT if you experience any of the following: Sudden, severe abdominal pain or nausea/vomiting Severe chest pain, or chest pain that radiates (moves) to your jaw or arm Sudden, severe shortness of breath or difficulty breathing Thank you for allowing us to participate in your care. Pending Studies at Discharge: No Stand-Alone Forms: My [facility] [employer], Smoking Cessation Medications and DC Order Prescriptions: Continued cholecalciferol (vitamin D3) 50 mcg (2,000 unit) capsule 50 mcg PO QAM Qty: 90 3RF lactulose 10 gram/15 mL solution 20 g PO BID Qty: 946 3RF Humira(CF) Pen 40 mg/0.4 mL pen injector kit 40 mg subcut Q14D Qty: 2 5RF Rx Instructions: take in the morning every 14 days Xifaxan 550 mg tablet 550 mg PO BID Qty: 60 5RF pantoprazole 40 mg tablet,delayed release (DR/EC) 40 mg PO BID Qty: 60 0RF vitamin B complex Tablet 1 tab PO DAILY furosemide 20 mg tablet 20 mg PO BID midodrine 5 mg tablet 5 mg PO TID Qty: 180 3RF Rx Instructions: do not give last dose of day after 8M or within 4 hrs of bedtime darbepoetin coretta in polysorbat 100 mcg/0.5 mL syringe 100 mcg subcut .COMPLEX PRN (Reason: NEEDED) Rx Instructions: 100 mcg subcutaneously Q weekly until Hgb >9. Then resume, Q other week. Hold for Hgb >10.; ondansetron HCl 4 mg tablet 4 mg PO UD PRN (Reason: Nausea And Vomiting) acetaminophen 325 mg Tablet 650 mg PO Q6 PRN (Reason: pain or fever >100) potassium chloride 10 mEq capsule, extended release 10 meq PO QAM spironolactone 25 mg tablet 25 mg PO QAM diphenhydramine HCl [Benadryl Allergy] 25 mg Tablet 25 mg PO Q8 PRN (Reason: Itching) Rx Instructions: start 06/01/22 take for 2 weeks Discharge Orders: Discharge Order (Routine); Ordered 06/10/22 Ordered By: Lucila Oglesby Admission Data Admit Date/Time: 06/07/22 22:27 Attending Provider: Margarito Zamudio Admit Provider: Gio Bello Primary Care Provider: Fiorella Castellano Other Providers: [place],[facility] ; Gio Bello ; [facility] Other Interventions: Discharge Summary Assessment (RN) Last Done: 06/10/22 15:37 Supervising Physician Co-Signing Physician Notes I personally examined the patient and verified all [place] points of history and exam, discussed case, and agree with decision making with Dr Oglesby feeling better feels up to going home walking the halls. Vitals noted, in general he is awake and alert pleasant no distress. HEENT normocephalic atraumatic mucous membranes moist. Breathing unlabored no accessory muscle use good effort. Skin shows no rashes no pallor or icterus. CBC and basic metabolic panel noted. f/u Hgb noted Acute blood loss anemia with borderline hemorrhagic shock/soft blood pressuresin the context of what appears to be upper GI bleeding related most likely to GAVE, less likely varicealresulting in acute kidney failure superimposed on CKD3.was transfused 1 unit PRBC. now has been stable. safe for home (discussed back to rehab vs home - he notes he was probably walking 3.5miles a day at rehab and was ready to go home) Weakness/deconditioningfortunately was progressing at rehab prior to this bleed. see above DVT prophylaxispharmacologic contraindicated due to GI bleeding/acute blood loss anemia. Did have SCDs ordered Resident Activity Tracking Resident Involvement: Resident Care Provided Care Provided: Adult Hospital Medicine
--- NOTE | 2022-06-10 17:19 | Billing Data ---
Date of Service June 10, 2022 Coding Level of Care Code 94998 IN/OBS DISCH 30 MIN/LESS
== END 2022-06-10 16:51 | disposition home health service (06) | DRG 377 ==
LOC: ED 18:31 → 2E 22:27 → SUATTDRO 22:27 → 2E 06-08 00:33
DX: K75.81 Nonalcoholic steatohepatitis (NASH); Z20.822 Contact with and (suspected) exposure to COVID-19; K74.60 Unspecified cirrhosis of liver; K31.89 Other diseases of stomach and duodenum; N18.30 Chronic kidney disease, stage 3 unspecified; K21.9 Gastro-esophageal reflux disease without esophagitis; N17.9 Acute kidney failure, unspecified; Z88.8 Allergy status to other drugs, medicaments and biological substances; F41.9 Anxiety disorder, unspecified; Z86.718 Personal history of other venous thrombosis and embolism; Z79.899 Other long term (current) drug therapy; K76.6 Portal hypertension; Z79.620 Long term (current) use of immunosuppressive biologic; I85.11 Secondary esophageal varices with bleeding; R53.81 Other malaise; R57.8 Other shock; D61.818 Other pancytopenia; D69.6 Thrombocytopenia, unspecified; I95.1 Orthostatic hypotension; D62 Acute posthemorrhagic anemia; K31.811 Angiodysplasia of stomach and duodenum with bleeding

== ENCOUNTER 2022-07-13 10:30 | Inpatient (IN) ==
--- NOTE | 2022-07-13 11:35 | Emergency Department Note ---
Impression & Plan [facility] ED Provider Note INFORMANT: Patient ED PROVIDER(S): Finn Naylor DO CHIEF COMPLAINT: Increasing edema, abdominal pain, shortness of breath PLAN: Disposition: Admission Outpatient prescription management: none Discussion with: I spoke with the hospitalist, who will see the patient for a dmission/observation and further evaluation and consultation. MEDICAL DECISION MAKING: This is a 67-year-old male who has a history of [place] and CKD presents to the ED with a chief complaint of increasing edema over the past 5 days. He also reports increased shortness of breath over the past 5 days. He is currently on Lasix 80 mg daily as well as spironolactone and he states this is not helping. He states that his leg edema has been present for the past 3 weeks off-and-on but worse the last week. He reports edema everywhere over the past week. No fevers. A little nausea but no vomiting. Saw Dr. Martini yesterday and was sent here for fluid retention. He was supposed to come last night but could not, so he came this day. Physical exam reveals pitting edema in the legs as well as abdomen and back. Mildly dyspneic but in no distress. Lungs revealed minimal basilar crackles otherwise clear. Heart is regular rate and rhythm. Abdomen is soft and mildly tender diffusely. No rebound. Vital signs are stable. Afebrile. Sats are 99% on room air. Twelve-lead EKG shows A-fib at a rate of 93. No ST elevation. Chest x-ray: No acute disease. No pneumonia. Hemoglobin is 8.8. This is slightly lower than his baseline and 9.3. The BUN and creatinine are around baseline with a creatinine of 2.3. Total bilirubin is 2.3. Again at baseline. Procalcitonin was negative. Doubt SBP. The lipase was negative for pancreatitis. Troponin is negative for myocardial infarction. The patient was treated with Lasix 80 mg IV. He will be seen by the hospitalist for further inpatient evaluation and care. Triage Nursing notes reviewed. Vital Signs: reviewed Prior /Outside records reviewed: none Differential diagnosis: Differential includes acute coronary syndrome, myocardial infarction, anemia, infection, pneumonia, UTI, pyelonephritis, poor nutrition, dehydration, electrolyte disturbance,hypoglycemia. Diagnostics, as interpreted by me: 12 lead ECG: Atrial fibrillation rate 93. No ST elevation. No PVCs. Normal QTc. Cardiac Monitoring ordered: A-fib in the 80s and 90s Medical decision rules: [none] Imaging studies: Chest x-ray: No acute disease. No pneumonia. Procedures: none. Critical care: none. HPI: See MDM above. PAST MEDICAL HISTORY: See Below PAST SURGICAL HISTORY: See Below SOCIAL HISTORY: See Below HOME MEDICATIONS:See Below ALLERGIES: See Below VITALS: See Below PHYSICAL EXAMINATION: See MDM for positive findings otherwise unremarkable. CONSTITUTIONAL/VITAL SIGNS: Reviewed GENERAL:done as appropriate INTEGUMENTARY: done as appropriate HEAD: done as appropriate EYES: done as appropriate RESPIRATORY: done as appropriate CARDIOVASCULAR:done as appropriate GI/ABDOMEN:done as appropriate EXTREMITIES: done as appropriate NEUROLOGICAL: done as appropriate PSYCHIATRIC:done as appropriate MUSCULOSKELETAL:done as appropriate TRIAGE NURSING DOCUMENTATION REVIEWED. Past Med/Surg History Medical History Anemia Ascites Cervical disc disease CKD (chronic kidney disease), stage III Depression Esophageal varices determined by endoscopy GAVE (gastric antral vascular ectasia) Per records GERD (gastroesophageal reflux disease) History of GI bleed discharged from [facility] 06/10/22: borderline hemorrhagic shock-upper GI bleed suspected to be d/t GAVE-received 1 unit of PRBC History of herniated intervertebral disc lumbar area History of SCC (squamous cell carcinoma) of skin S/p removal- follows with derm Hx of blood clots 06/2021 @ [facility]- pt reports blood clot in left arm around IV site after being discharged from hospital- no meds due to current blood loss issue- warm compresses to site per pt- 2 ultrasounds done - no current issues Hx of upper gastrointestinal hemorrhage recent hospitalization at [facility] 06/07/2022 Hypothyroidism 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 current work-up for planned liver transplant per [facility] transplant clinic records Lumbar disc disease Oral mucositis On mouthwash daily- no recent issues Pancytopenia Portal hypertensive gastropathy Post-traumatic urethral stricture Psoriasis Psoriatic arthritis PVT (portal vein thrombosis) denies Spinal stenosis EPIDURAL INJECTIONS IN PAST FOR PAIN RELIEF TMJ arthralgia Urinary retention Urinary tract infection Wide-complex tachycardia ON CARDVEDILOL-F/U DR VANESSA LAST VISIT<1 YR AGO Surgical History H/O foot surgery excision of neuroma b/l feet History of appendectomy History of arthroscopy RT KNEE History of cataract surgery RT/LEFT History of cholecystectomy History of esophagogastroduodenoscopy (EGD) last 03/21/22 @ [facility] 02/08/22 Dr. Sara Cloud- EGD- Grade I esophageal varices, Portal hypertensive gastropathy History of herniorrhaphy right inguinal History of lithotripsy History of liver biopsy History of repair of rotator cuff RT/LEFT History of tooth extraction History of urologic surgery Urethral reconstruction 4 years ago at [facility] Nausea and vomiting after administration of anesthetic agent S/P colonoscopy S/P epidural steroid injection S/P orchiectomy Right age 9 for UDT S/P urological surgery (2018) [facility] urethroplasty-[facility] Suprapubic catheter AND REMOVAL Family History Grandmother (Maternal) Diabetes Father Renal cancer Mother Aortic aneurysm Denies family history of Ovarian cancer Prostate cancer Myocardial infarction Breast cancer Colorectal cancer Social History Smoking Status: Never smoker Second Hand Exposure: No; Do You Dip or Chew Tobacco: No; Hx Alcohol Use: No Hx Substance Use: No Preferred Language: Latvian Communication Ability: Effective Visual Impairment: No Limitations Hearing Ability: Hard of Hearing Kitchen Lead Required: No Beliefs That Will Affect Care: None marital status: / Current Living Situation: Care Home Current Living Situation Comment: Son current occupational status: retired How many Children do You have: 1 Feels Safe at Home: Yes Diet: regular Diet Comment: regular caffeine: Yes during the past year weight has: decreased > 10 lbs Dental Care, Regularly: No Physical Activity Frequency: Other Physical Activity Frequency Comment: does all housework/outside work and cuts wood Seatbelt Use: never Sunscreen Use: No Assistive Devices: Glasses Allergies Allergies Allergy/AdvReac Type Severity Reaction Status Date / Time tamsulosin Allergy Intermediate HIVES Verified 07/12/22 10:29 etanercept [From Enbrel] AdvReac Intermediate Increased Verified 07/12/22 10:29 infections Home Meds Home Medications Medication Instructions Recorded Confirmed vitamin B complex 1 tab PO DAILY 10/23/21 07/12/22 darbepoetin coretta in polysorbat 100 100 mcg subcut .COMPLEX PRN 05/23/22 07/12/22 mcg/0.5 mL in polysorbate NEEDED injection syringe acetaminophen 325 mg tablet 650 mg PO Q6 PRN pain or fever >100 06/07/22 07/12/22 paroxetine HCl 10 mg tablet 10 mg PO QPM 06/21/22 07/12/22 Previous Rx's Medication Instructions Recorded cholecalciferol (vitamin D3) 50 50 mcg PO QAM #90 caps 05/15/21 mcg (2,000 unit) capsule lactulose 10 gram/15 mL oral 20 g (30 mL) PO BID #946 mL 09/19/21 solution adalimumab 40 mg/0.4 mL 40 mg (0.4 mL) subcut Q14D #2 ea 01/03/22 subcutaneous pen kit (Humira(CF) Pen) rifaximin 550 mg tablet (Xifaxan) 550 mg PO BID #60 tabs 01/16/22 midodrine 5 mg tablet 5 mg PO TID #180 tabs 05/03/22 pantoprazole 40 mg tablet,delayed 40 mg PO BID #60 tabs 05/16/22 release ondansetron HCl 4 mg tablet 4 mg PO Q8H PRN Nausea And 06/21/22 Vomiting #30 tabs furosemide 40 mg tablet 40 mg PO BID #180 tabs 07/02/22 spironolactone 25 mg tablet 50 mg PO QAM #180 tabs 07/02/22 Results & Data (ED) Vital Signs Vital Signs - 24 hr 07/13/22 10:46 07/13/22 11:58 07/13/22 11:58 Temperature 36.9 C Temperature Source Temporal Artery Scan Pulse Rate 100 H Pulse Rate [Apical] 96 H Pulse Rhythm Regular Pulse Strength Normal Respiratory Rate 20 20 Respiratory Effort / Characteristics Non-Labored Spontaneous Non-Labored Spontaneous Respiratory Depth Normal Normal Respiratory Pattern Regular Blood Pressure 111/66 Blood Pressure [Left Arm] 121/72 Blood Pressure Mean 81 Blood Pressure Mean [Left Arm] 88 Blood Pressure Position Sitting Pulse Oximetry 99 100 100 Oxygen Delivery Method Room Air Room Air Room Air Sepsis Recent Fever Within 48 Hours No Sepsis New/Unexplained Change in Mental Status No Sepsis Action Taken by Nursing No Action Required Laboratory Data 07/13/22 11:26 07/13/22 11:26 Lab Results 07/13/22 07/13/22 07/13/22 Range/Units 11:15 11:26 11:26 WBC 5.81 (4.8-10.8) K/ul RBC 2.48 L (4.70-6.10) M/uL Hgb 8.8 L (14.0-18.0) g/dl Hct 26.9 L (42.0-52.0) % MCV 108.5 H (80.0-100.0) fL MCH 35.5 H (25.0-34.0) pg MCHC 32.7 (32.0-36.0) g/dL RDW Std Deviation 78.7 H (36.4-46.3) fL RDW Coeff of Miguel 19.8 H (11.5-14.5) % Plt Count 94 L (130-400) K/uL MPV 9.6 (9.4-12.4) fL Immature Gran % (Auto) 1.4 % Neut % (Auto) 69.3 % Lymph % (Auto) 12.6 % Person % (Auto) 12.9 % Eos % (Auto) 2.9 % Baso % (Auto) 0.9 % Neut # (Auto) 4.03 (1.40-6.50) K/uL Lymph # (Auto) 0.73 L (1.2-3.4) K/uL Person # (Auto) 0.75 H (0.11-0.59) K/uL Eos # (Auto) 0.17 (0-0.50) K/uL Baso # (Auto) 0.05 (0-0.2) K/uL Immature Gran # (Auto) 0.08 (0.01-0.20) K/uL PT (9.0-12.0) Seconds INR (0.9-1.1) APTT (21.0-31.0) Seconds PTT Ratio Sodium 133 L (136-145) mmol/L Potassium 3.4 L (3.5-5.1) mmol/L Chloride 100 (98-107) mmol/L Carbon Dioxide 29 (21-32) mmol/L Anion Gap 4 (3-11) BUN 25 H (6-23) mg/dl Creatinine 2.38 H (0.6-1.4) mg/dl Est Cr Clr Drug Dosing 38.6 ml/min Est GFR ( Amer) 31.3 ml/min Est GFR (Non-Af Amer) 27.0 ml/min BUN/Creatinine Ratio 10.5 (10-20) Glucose 142 H (70-99(Fasting)) mg/dl Calcium 9.0 (8.6-10.3) mg/dl Total Bilirubin 2.3 H (0.2-1.0) mg/dl AST 30 (13-39) U/L ALT 13 (7-52) U/L Alkaline Phosphatase 146 H (34-104) U/L Troponin I High Sens 8.2 (0-20) pg/ml Total Protein 6.0 (6.0-8.3) gm/dl Albumin 2.0 L (3.4-5.0) gm/dl Globulin 4.0 (2.5-4.0) gm/dl Albumin/Globulin Ratio 0.5 L (0.9-2) Lipase 19 (11-82) U/L Procalcitonin (0-0.5) ng/ml SARS-CoV-2, RNA, NAAT NEGATIVE (NEGATIVE) 07/13/22 07/13/22 Range/Units 11:26 11:26 WBC (4.8-10.8) K/ul RBC (4.70-6.10) M/uL Hgb (14.0-18.0) g/dl Hct (42.0-52.0) % MCV (80.0-100.0) fL MCH (25.0-34.0) pg MCHC (32.0-36.0) g/dL RDW Std Deviation (36.4-46.3) fL RDW Coeff of Miguel (11.5-14.5) % Plt Count (130-400) K/uL MPV (9.4-12.4) fL Immature Gran % (Auto) % Neut % (Auto) % Lymph % (Auto) % Person % (Auto) % Eos % (Auto) % Baso % (Auto) % Neut # (Auto) (1.40-6.50) K/uL Lymph # (Auto) (1.2-3.4) K/uL Person # (Auto) (0.11-0.59) K/uL Eos # (Auto) (0-0.50) K/uL Baso # (Auto) (0-0.2) K/uL Immature Gran # (Auto) (0.01-0.20) K/uL PT 14.8 H (9.0-12.0) Seconds INR 1.4 H (0.9-1.1) APTT 31.6 H (21.0-31.0) Seconds PTT Ratio 1.1 Sodium (136-145) mmol/L Potassium (3.5-5.1) mmol/L Chloride (98-107) mmol/L Carbon Dioxide (21-32) mmol/L Anion Gap (3-11) BUN (6-23) mg/dl Creatinine (0.6-1.4) mg/dl Est Cr Clr Drug Dosing ml/min Est GFR ( Amer) ml/min Est GFR (Non-Af Amer) ml/min BUN/Creatinine Ratio (10-20) Glucose (70-99(Fasting)) mg/dl Calcium (8.6-10.3) mg/dl Total Bilirubin (0.2-1.0) mg/dl AST (13-39) U/L ALT (7-52) U/L Alkaline Phosphatase (34-104) U/L Troponin I High Sens (0-20) pg/ml Total Protein (6.0-8.3) gm/dl Albumin (3.4-5.0) gm/dl Globulin (2.5-4.0) gm/dl Albumin/Globulin Ratio (0.9-2) Lipase (11-82) U/L Procalcitonin 0.20 (0-0.5) ng/ml SARS-CoV-2, RNA, NAAT (NEGATIVE) Administered Medications Discontinued Medications Furosemide (Furosemide 40 Mg/4 Ml Vial) 80 mg IV ONE ONE Stop: 07/13/22 13:05 Last Admin: 07/13/22 13:12 Dose: 80 mg Documented By: MNE Imaging Data Radiologist's Impression: Abdomen/Pelvis CT 07/13/22 11:[address] WITHOUT CONTRAST CT DOSE: 1141.25 mGy.cm HISTORY: Acute generalized abdominal pain abd pain TECHNIQUE: Multiaxial CT images of the abdomen and pelvis were performed without contrast. A dose lowering technique was utilized adhering to the principles of ALARA. COMPARISON STUDY: 05/22/2022 FINDINGS: Cardia mainly with coronary artery calcifications. Mild subsegmental bibasilar atelectasis. No pneumatosis or pneumoperitoneum. The unenhanced spleen is mildly enlarged, 13.5 cm. Moderately atrophic pancreas. Adrenal glands are within normal limits. Cholecystectomy. Cirrhotic atrophic liver. No hepatic mass identified. Moderate abdominal pelvic ascites. Abdominal varicosities again noted. There are a few punctate nonobstructing calculi noted within the bilateral kidneys. 6 no immediate or nonobstructing calculus of the inferior pole left kidney. 4 mm calculus in the inferior pole right kidney. Cortical thinning of the kidneys. Urinary bladder wall thickening with partial distention and perivesicular stranding. Atherosclerosis of the aorta. No lymphadenopathy. Wall thickening of the stomach with partial distention. No bowel obstruction. No skin thickening bowel wall thickening. Mild anasarca. Degenerative changes of the spine, pelvis and hips. IMPRESSION: 1. Cirrhosis with stigmata of portal venous hypertension including splenomegaly with abdominal varicosities and abdominal pelvic ascites. 2. No bowel obstruction or pneumoperitoneum. 3. Nonobstructing bilateral nephrolithiasis. 4. Urinary bladder wall thickening with partial distention. Correlate with urinalysis to exclude cystitis. 5. Additional findings as above. ACT 112: Negative or not required by law. The above report was generated using voice recognition software. It may contain grammatical, syntax or spelling errors. Electronically signed by: Alan Espino M.D. 07/13/2022 11:57 AM Chest X-Ray 07/13/22 11:05 XR chest 1V portable HISTORY: 67 years-old Male abd pain acute chest and abdominal pain COMPARISON: CT abdomen and pelvis of same day, Chest radiograph 05/23/2022 TECHNIQUE: AP view the chest FINDINGS: Cardiomediastinal and hilar silhouettes are within normal limits. Atherosclerosis of the aorta. No pneumothorax, pleural effusion, airspace consolidation or overt pulmonary edema. Degenerative changes of the shoulders and spine. IMPRESSION: No acute process. ACT 112: Negative or not required by law. The above report was generated using voice recognition software. It may contain grammatical, syntax or spelling errors. Electronically signed by: Alan Espino M.D. 07/13/2022 11:41 AM Discharge Plan Visit Data Chief Complaint: Abdominal Pain Stated Complaint: FLUID IN ABDOMEN ED Provider: Finn Naylor Discharge Problem: Anasarca Patient Disposition: Being Evaluated by Hospitalist Forms Stand Alone Forms: My [facility] Prescriptions Prescriptions: No Action cholecalciferol (vitamin D3) 50 mcg (2,000 unit) capsule 50 mcg PO QAM Qty: 90 3RF lactulose 10 gram/15 mL solution 20 g PO BID Qty: 946 3RF Humira(CF) Pen 40 mg/0.4 mL pen injector kit 40 mg subcut Q14D Qty: 2 5RF Rx Instructions: take in the morning every 14 days Xifaxan 550 mg tablet 550 mg PO BID Qty: 60 5RF pantoprazole 40 mg tablet,delayed release (DR/EC) 40 mg PO BID Qty: 60 0RF spironolactone 25 mg tablet 50 mg PO QAM Qty: 180 3RF furosemide 40 mg tablet 40 mg PO BID Qty: 180 3RF vitamin B complex Tablet 1 tab PO DAILY midodrine 5 mg tablet 5 mg PO TID Qty: 180 3RF Rx Instructions: do not give last dose of day after 8M or within 4 hrs of bedtime paroxetine HCl 10 mg tablet 10 mg PO QPM ondansetron HCl 4 mg tablet 4 mg PO Q8H PRN (Reason: Nausea And Vomiting) Qty: 30 1RF darbepoetin coretta in polysorbat 100 mcg/0.5 mL syringe 100 mcg subcut .COMPLEX PRN (Reason: NEEDED) Rx Instructions: 100 mcg subcutaneously Q weekly until Hgb >9. Then resume, Q other week. Hold for Hgb >10.; acetaminophen 325 mg Tablet 650 mg PO Q6 PRN (Reason: pain or fever >100) Referrals Referrals: Fiorella Castellano DO [Primary Care Provider] -
--- NOTE | 2022-07-13 11:42 | XRay Report ---
XR chest 1V portable HISTORY: 67 years-old Male abd pain acute chest and abdominal pain COMPARISON: CT abdomen and pelvis of same day, Chest radiograph 05/23/2022 TECHNIQUE: AP view the chest FINDINGS: Cardiomediastinal and hilar silhouettes are within normal limits. Atherosclerosis of the aorta. No pn eumothorax, pleural effusion, airspace consolidation or overt pulmonary edema. Degenerative changes o f the shoulders and spine. IMPRESSION: No acute process. ACT 112: Negative or not required by law. The above report was generated using voice recognition software. It may contain grammatical, syntax o r spelling errors. Electronically signed by: Alan Espino M.D. 07/13/2022 11:41 AM
--- NOTE | 2022-07-13 11:59 | CT Scan Report ---
ABDOMEN AND PELVIS CT WITHOUT CONTRAST CT DOSE: 1141.25 mGy.cm HISTORY: Acute generalized abdominal pain abd pain TECHNIQUE: Multiaxial CT images of the abdomen and pelvis were performed without contrast. A dose lo wering technique was utilized adhering to the principles of ALARA. COMPARISON STUDY: 05/22/2022 FINDINGS: Cardia mainly with coronary artery calcifications. Mild subsegmental bibasilar atelectasis. No pneumatosis or pneumoperitoneum. The unenhanced spleen is mildly enlarged, 13.5 cm. Moderately at rophic pancreas. Adrenal glands are within normal limits. Cholecystectomy. Cirrhotic atrophic liver. No hepatic mass identified. Moderate abdominal pelvic ascites. Abdominal varicosities again noted. There are a few punctate nonobstructing calculi noted within the bilateral kidneys. 6 no immediate or nonobstructing calculus of the inferior pole left kidney. 4 mm calculus in the inferior pole right k [place]ney. Cortical thinning of the kidneys. Urinary bladder wall thickening with partial distention and perivesicular stranding. Atherosclerosis of the aorta. No lymphadenopathy. Wall thickening of the stomach with partial distention. No bowel obstruction. No skin thickening terrance l wall thickening. Mild anasarca. Degenerative changes of the spine, pelvis and hips. IMPRESSION: 1. Cirrhosis with stigmata of portal venous hypertension including splenomegaly with abdominal varico sities and abdominal pelvic ascites. 2. No bowel obstruction or pneumoperitoneum. 3. Nonobstructing bilateral nephrolithiasis. 4. Urinary bladder wall thickening with partial distention. Correlate with urinalysis to exclude cyst itis. 5. Additional findings as above. ACT 112: Negative or not required by law. The above report was generated using voice recognition software. It may contain grammatical, syntax o r spelling errors. Electronically signed by: Alan Espino M.D. 07/13/2022 11:57 AM
[2022-07-13 12:01] LABS: Basophils # (auto) 0.05 K/uL (0-0.2); Basophils % (auto) 0.9 %; Eosinophils # (auto) 0.17 K/uL (0-0.50); Eosinophils % (auto) 2.9 %; Hematocrit (blood only) 26.9 % (42.0-52.0); Hemoglobin 8.8 g/dl (14.0-18.0); Immature Granulocytes # (auto) 0.08 K/uL (0.01-0.20); Immature Granulocytes % (auto) 1.4 %; Lymphocytes # (auto) 0.73 K/uL (1.2-3.4); Lymphocytes % (auto) 12.6 %; Mean Corpuscular Hemoglobin 35.5 pg (25.0-34.0); Mean Corpuscular Hgb Conc 32.7 g/dL (32.0-36.0); Mean Corpuscular Volume 108.5 fL (80.0-100.0); Mean Platelet Volume 9.6 fL (9.4-12.4); Monocytes # (auto) 0.75 K/uL (0.11-0.59); Monocytes % (auto) 12.9 %; Neutrophils # (auto) 4.03 K/uL (1.40-6.50); Neutrophils % (auto) 69.3 %; Platelet Count 94 K/uL (130-400); RDW Coefficient of Variation 19.8 % (11.5-14.5); RDW Standard Deviation 78.7 fL (36.4-46.3); Red Blood Count 2.48 M/uL (4.70-6.10); White Blood Count 5.81 K/ul (4.8-10.8)
[2022-07-13 12:06] LABS: Albumin Globulin Ratio 0.5 (0.9-2); BUN Creatinine Ratio 10.5 (10-20); Bilirubin,Total 2.3 mg/dl (0.2-1.0); Creatinine Clr Calc Pharmacy 38.6 ml/min; Est GFR (African American) 31.3 ml/min; Potassium 3.4 mmol/L (3.5-5.1)
[2022-07-13 12:13] LABS: Troponin I High Sensitivity 8.2 pg/ml (0-20)
[2022-07-13 12:36] LABS: INR 1.4 (0.9-1.1); Partial Thromboplastin Ratio 1.1; Partial Thromboplastin Time 31.6 Seconds (21.0-31.0); Prothrombin Time 14.8 Seconds (9.0-12.0)
[2022-07-13] MEDS ORDERED: FUROSEMIDE 40 MG/4 ML VIAL IV ONE (13:04)
--- NOTE | 2022-07-13 13:43 | History & Physical Report ---
Date of Service July 13, 2022 Assessment & Plan (1) Anasarca: Plan: -Admit to med/tele -Currently stable -Patient has significant abdominal ascites and LE edema, likely a combination of his SERRANO cirrhosis and CKD -Albumin is 2.0 today, he is likely continuing to 3rd space due to low intravascular oncotic pressure -Will consult [facility] as he see's Dr. Espitia and will consult Dr. Martinez as he follows him outpatient -MELD-Na score today is 25, giving him a 14-15% 90-day mortality risk -Will give 50 mg 25% albumin on admission now -S/P 80 mg IV lasix in the ED, will hold additional lasix and spironolactone for now and will repeat another CMP tonight to monitor for improvement -Will have to consult EVELINA Drew PA-C for diagnostic/therapeutic paracentesis, unfortunately he is off until Saturday, will need to manage medically for now -BL SCD's for DVT PPX, hold chemical PPX for now with thrombocytopenia and COLLIN -AM CBC, CMP, Mag, PT/INR (2) Abdominal pain: Plan: -Patient has been having progressive generalized abd pain over the past week -The pain is sharp/constant with intermittent exacerbations -Differential is broad at this time including SBP, UTI/cystitis, gastro enteritis, musculoskeletal pain -CT of the abd/pelvis today shows portal venous hypertension, splenomegaly, abd varicosities, and abdominal pelvic ascites, as well as a distended and partially thickened bladder -Has been having non-bloody, foul-smelling, and watery diarrhea, 5-6 episodes daily even while off lactulose since Saturday -Will start empiric 2gm ceftriaxone daily to cover SBP, UTI, and will add q8h flagyl for now to cover anaerobes -Will consult EVELINA davis for therapeutic paracentesis on Saturday, GI and Nephrology -Will continue to monitor closely -Will obtain STAT blood cultures (3) Acute kidney injury superimposed on chronic kidney disease: Plan: -Cr at 2.38 today, baseline appears to be close to 1.9-2.0 -Likely due to being intravascularly depleted with recent increased in diuretic dosing and low albumin, could also be a component of obstruction with his hx of ureteral stricture and possible acute UTI -Giving 50 mg IV albumin on admission, hold additional diuretics for now and will monitor evening CMP to see how he responds -Dr. Martinez consulted, agrees with albumin today, he will follow, appreciate his help -Continue to monitor renal function and electrolytes closely -Avoid nephrotoxic agents (4) Hypokalemia: Plan: -Noted to be 3.4 today -Likely due to increased lasix dosing and decreased oral intake this week -Will give one dose of 40 meq PO KCL now as he had 80 mg IV lasix in the ED -Continue to monitor daily electrolytes -Will obtain mag level on admission (5) 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: Plan: -See anasarca -Continue to hold Lactulose for now with diarrhea, no signs of encephalopathy -Continue rifaximin -[facility] consulted (6) Hyponatremia: Plan: -Noted to be 133 today -Likely due to his liver and kidney disease -Continue to monitor for now (7) PSVT (paroxysmal supraventricular tachycardia): Plan: -Currently rate controlled -Continue to monitor on tele (8) Hypothyroidism: Plan: -Continue levothyroxine (9) GERD (gastroesophageal reflux disease): Plan: -Continue protonix and carafate (10) Pancytopenia: Plan: -Currently stable (11) Depression: Plan: -Continue paroxetine Plan The patient was discussed with Dr. Taylor at the time of the admission History of Present Illness Chief Complaint: Abdominal distention/discomfort Primary Care Provider: DO Sebastian Schneider (Spike) is a 67 year old male with a PMH significant for CKD stage III, liver 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, hypothyroidism, GERD, psoriatic arthritis (on Humira), pancytopenia, PSVT, wide-complex tachycardia, portal hypertensive ga stropathy, grade 1 esophageal varices, GI bleed, anxiety who presented to the [facility] ED on 07/13/22 for ongoing abdominal distention/discomfort and LE swelling. In the Ed he was noted to be tachycardic at 110 but otherwise stable. Labs were significant for a stable pancytopenia with Hgb of 8.8 and platelets of 94, INR of 1.4, cr of 2.38 (baseline appears near 1.9-2.0), potassium of 3.4, sodium of 133, stable total bili of 2.3, and covid 19 negative. Chest xray was read as "No acute process.". CT of the abd/pelvis wo con was read as "1. Cirrhosis with stigmata of portal venous hypertension including splenomegaly with abdominal varicosities and abdominal pelvic ascites. 2. No bowel obstruction or pneumoperitoneum. v3. Nonobstructing bilateral nephrolithiasis. 4. Urinary bladder wall thickening with partial distention. Correlate with urinalysis to exclude cystitis. 5. Additional findings as above.". Prior to admission the patient was given 40 80 mg IV lasix. At the time of the exam the patient was lying in bed in no acute distress. He states that over the past week he has developed progressive abdominal and LE swelling, as well as generalized abdominal pain. He denies recent fever or c hills, chest pain, cough, vomiting, dysuria, hematuria, melena, and recent trauma. He has felt SOB as he is unable to take deep breaths due to his abdominal distention. He has been having the sensation of become full quickly over the past week. He has been having multiple episodes of watery diarrhea daily, up to 6-7. This has continued since stopping his lactulose on Saturday. He denies any bloody stool or melena. He recently had his doses of lasix and spironolactone increased but is still having swelling despite this. He has not recently been treated with antibiotics. We discussed code status, he wishes to be a conditional code with no CPR or defibrillation in the event of cardiac arrest but would want a short trial of intubation in the setting of acute respiratory failure. Please refer to Dr. Taylor's attestation for any changes to the treatment plan Allergies Allergy/AdvReac Type Severity Reaction Status Date / Time tamsulosin Allergy Intermediate HIVES Verified 07/12/22 10:29 etanercept [From Enbrel] AdvReac Intermediate Increased Verified 07/12/22 10:29 infections Home Medications Medication Instructions Recorded Confirmed Type cholecalciferol (vitamin D3) 50 50 mcg PO QAM #90 caps 05/15/21 07/13/22 Rx mcg (2,000 unit) capsule lactulose 10 gram/15 mL oral 20 g (30 mL) PO BID #946 mL 09/19/21 07/13/22 Rx solution vitamin B complex 1 tab PO DAILY 10/23/21 07/13/22 History adalimumab 40 mg/0.4 mL 40 mg (0.4 mL) subcut Q14D #2 ea 01/03/22 07/13/22 Rx subcutaneous pen kit (Humira(CF) Pen) rifaximin 550 mg tablet (Xifaxan) 550 mg PO BID #60 tabs 01/16/22 07/13/22 Rx midodrine 5 mg tablet 5 mg PO TID #180 tabs 05/03/22 07/13/22 Rx pantoprazole 40 mg tablet,delayed 40 mg PO BID #60 tabs 05/16/22 07/13/22 Rx release darbepoetin coretta in polysorbat 100 100 mcg subcut .COMPLEX PRN 05/23/22 07/13/22 History mcg/0.5 mL in polysorbate NEEDED injection syringe ondansetron HCl 4 mg tablet 4 mg PO Q8H PRN Nausea And 06/21/22 07/13/22 Rx Vomiting #30 tabs paroxetine HCl 10 mg tablet 10 mg PO QPM 06/21/22 07/13/22 History furosemide 40 mg tablet 40 mg PO BID #180 tabs 07/02/22 07/13/22 Rx spironolactone 25 mg tablet 50 mg PO QAM #180 tabs 07/02/22 07/13/22 Rx sucralfate 100 mg/mL oral 10 ml PO BID 07/13/22 07/13/22 History suspension Past Med/Surg History Medical History Anemia Ascites Cervical disc disease CKD (chronic kidney disease), stage III Depression Esophageal varices determined by endoscopy GAVE (gastric antral vascular ectasia) Per records GERD (gastroesophageal reflux disease) History of GI bleed discharged from [facility] 06/10/22: borderline hemorrhagic shock-upper GI bleed suspected to be d/t GAVE-received 1 unit of PRBC History of herniated intervertebral disc lumbar area History of SCC (squamous cell carcinoma) of skin S/p removal- follows with derm Hx of blood clots 06/2021 @ [facility]- pt reports blood clot in left arm around IV site after being discharged from hospital- no meds due to current blood loss issue- warm compresses to site per pt- 2 ultrasounds done - no current issues Hx of upper gastrointestinal hemorrhage recent hospitalization at [facility] 06/07/2022 Hypothyroidism 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 current work-up for planned liver transplant per [facility] transplant clinic records Lumbar disc disease Oral mucositis On mouthwash daily- no recent issues Pancytopenia Portal hypertensive gastropathy Post-traumatic urethral stricture Psoriasis Psoriatic arthritis PVT (portal vein thrombosis) denies Spinal stenosis EPIDURAL INJECTIONS IN PAST FOR PAIN RELIEF TMJ arthralgia Urinary retention Urinary tract infection Wide-complex tachycardia ON CARDVEDILOL-F/U DR VANESSA LAST VISIT<1 YR AGO Surgical History H/O foot surgery excision of neuroma b/l feet History of appendectomy History of arthroscopy RT KNEE History of cataract surgery RT/LEFT History of cholecystectomy History of esophagogastroduodenoscopy (EGD) last 03/21/22 @ [facility] 02/08/22 Dr. Sara Cloud- EGD- Grade I esophageal varices, Portal hypertensive gastropathy History of herniorrhaphy right inguinal History of lithotripsy History of liver biopsy History of repair of rotator cuff RT/LEFT History of tooth extraction History of urologic surgery Urethral reconstruction 4 years ago at [facility] Nausea and vomiting after administration of anesthetic agent S/P colonoscopy S/P epidural steroid injection S/P orchiectomy Right age 9 for UDT S/P urological surgery (2018) [facility] [place]thro[place] Suprapubic catheter AND REMOVAL Family History Grandmother (Maternal) Diabetes Father Renal cancer Mother Aortic aneurysm Denies family history of Ovarian cancer Prostate cancer Myocardial infarction Breast cancer Colorectal cancer Social History Smoking Status: Never smoker Second Hand Exposure: No; Do You Dip or Chew Tobacco: No; Hx Alcohol Use: No Hx Substance Use: No Preferred Language: Amharic Communication Ability: Effective Visual Impairment: No Limitations Hearing Ability: Hard of Hearing Gravel Hauler Required: No Beliefs That Will Affect Care: None marital status: / Current Living Situation: Family Current Living Situation Comment: lives home with son and daughter in law current occupational status: retired How many Children do You have: 1 Other Information That Helps Us Care for You: No Feels Safe at Home: Yes Safety Concerns: Feels Safe At This Time Diet: regular Diet Comment: regular caffeine: Yes during the past year weight has: decreased > 10 lbs Dental Care, Regularly: No Physical Activity Frequency: Other Physical Activity Frequency Comment: does all housework/outside work and cuts wood Seatbelt Use: never Sunscreen Use: No Assistive Devices: Cane Physical Exam Physical Exam: Physical Exam: General: In no acute distress, stated age, chronically ill appearing but non- toxic HEENT: Normocephalic, atraumatic, no scleral icterus, pupils around round, symmetrical, and reactive to light, moist mucus membranes, trachea midline, no thyromegaly Chest/Pulm: No respiratory distress, symmetrical chest expansion, clear breath sounds throughout Cardiac: RRR, no murmurs noted Abdomen: Significant abdominal ascites noted, normoactive bowel sounds, soft but tender to palpation throughout with peritoneal pain Musculoskeletal: Symmetrical and without signs of acute trauma, upper and lower extremities with full ROM, no atrophy, spasticity, or flaccidity Extremities: Radial, dorsalis pedis, and posterior tibial pulses are intact and symmetrical, 3+ edema noted in the BL LE's Skin: Warm, dry, no rashes , lesions, or scars noted Neuro: Alert and oriented to person, place, month, year, and president, no focal defects, CN II-XII tested and intact, finger to nose test negative, no tremors noted Psych: No acute distress, calm and cooperative during the exam Results & Data Results & Data Vital Signs (Past 12 Hours) Vital Signs Temp Pulse Pulse Resp BP BP Pulse Ox 07/13/22 13:28 100 H 20 111/79 96 07/13/22 11:58 100 07/13/22 11:58 96 H 20 121/72 100 07/13/22 10:46 36.9 C 100 H 20 111/66 99 O2 Del Method 07/13/22 13:28 Room Air 07/13/22 11:58 Room Air 07/13/22 11:58 Room Air 07/13/22 10:46 Room Air Laboratory Results Abnormal lab results 07/13/22 07/13/22 07/13/22 Range/Units 11:26 11:26 11:26 RBC 2.48 L (4.70-6.10) M/uL Hgb 8.8 L (14.0-18.0) g/dl Hct 26.9 L (42.0-52.0) % MCV 108.5 H (80.0-100.0) fL MCH 35.5 H (25.0-34.0) pg RDW Std Deviation 78.7 H (36.4-46.3) fL RDW Coeff of Miguel 19.8 H (11.5-14.5) % Plt Count 94 L (130-400) K/uL Lymph # (Auto) 0.73 L (1.2-3.4) K/uL Republic # (Auto) 0.75 H (0.11-0.59) K/uL PT 14.8 H (9.0-12.0) Seconds INR 1.4 H (0.9-1.1) APTT 31.6 H (21.0-31.0) Seconds Sodium 133 L (136-145) mmol/L Potassium 3.4 L (3.5-5.1) mmol/L BUN 25 H (6-23) mg/dl Creatinine 2.38 H (0.6-1.4) mg/dl Glucose 142 H (70-99(Fasting)) mg/dl Total Bilirubin 2.3 H (0.2-1.0) mg/dl Alkaline Phosphatase 146 H (34-104) U/L Albumin 2.0 L (3.4-5.0) gm/dl Albumin/Globulin Ratio 0.5 L (0.9-2) Urine Appearance (Clear) Urine Blood (Negative) Ur Leukocyte Esterase (Negative) Urine WBC (Auto) (0-5) /hpf Urine RBC (Auto) (0-4) /hpf U Epithel Cells (Auto) (0-5) /lpf 07/13/22 Range/Units 13:34 RBC (4.70-6.10) M/uL Hgb (14.0-18.0) g/dl Hct (42.0-52.0) % MCV (80.0-100.0) fL MCH (25.0-34.0) pg RDW Std Deviation (36.4-46.3) fL RDW Coeff of Miguel (11.5-14.5) % Plt Count (130-400) K/uL Lymph # (Auto) (1.2-3.4) K/uL Republic # (Auto) (0.11-0.59) K/uL PT (9.0-12.0) Seconds INR (0.9-1.1) APTT (21.0-31.0) Seconds Sodium (136-145) mmol/L Potassium (3.5-5.1) mmol/L BUN (6-23) mg/dl Creatinine (0.6-1.4) mg/dl Glucose (70-99(Fasting)) mg/dl Total Bilirubin (0.2-1.0) mg/dl Alkaline Phosphatase (34-104) U/L Albumin (3.4-5.0) gm/dl Albumin/Globulin Ratio (0.9-2) Urine Appearance Cloudy A (Clear) Urine Blood 2+ H (Negative) Ur Leukocyte Esterase 2+ H (Negative) Urine WBC (Auto) >30 H (0-5) /hpf Urine RBC (Auto) 10-30 H (0-4) /hpf U Epithel Cells (Auto) 10-20 H (0-5) /lpf Diagnostic Findings Abdomen/Pelvis CT 07/13/22 11:[address] WITHOUT CONTRAST CT DOSE: 1141.25 mGy.cm HISTORY: Acute generalized abdominal pain abd pain TECHNIQUE: Multiaxial CT images of the abdomen and pelvis were performed without contrast. A dose lowering technique was utilized adhering to the principles of ALARA. COMPARISON STUDY: 05/22/2022 FINDINGS: Cardia mainly with coronary artery calcifications. Mild subsegmental bibasilar atelectasis. No pneumatosis or pneumoperitoneum. The unenhanced spleen is mildly enlarged, 13.5 cm. Moderately atrophic pancreas. Adrenal glands are within normal limits. Cholecystectomy. Cirrhotic atrophic liver. No hepatic mass identified. Moderate abdominal pelvic ascites. Abdominal varicosities again noted. There are a few punctate nonobstructing calculi noted within the bilateral kidneys. 6 no immediate or nonobstructing calculus of the inferior pole left kidney. 4 mm calculus in the inferior pole right kidney. Cortical thinning of the kidneys. Urinary bladder wall thickening with partial distention and perivesicular stranding. Atherosclerosis of the aorta. No lymphadenopathy. Wall thickening of the stomach with partial distention. No bowel obstruction. No skin thickening bowel wall thickening. Mild anasarca. Degenerative changes of the spine, pelvis and hips. IMPRESSION: 1. Cirrhosis with stigmata of portal venous hypertension including splenomegaly with abdominal varicosities and abdominal pelvic ascites. 2. No bowel obstruction or pneumoperitoneum. 3. Nonobstructing bilateral nephrolithiasis. 4. Urinary bladder wall thickening with partial distention. Correlate with urinalysis to exclude cystitis. 5. Additional findings as above. ACT 112: Negative or not required by law. The above report was generated using voice recognition software. It may contain grammatical, syntax or spelling errors. Electronically signed by: Alan Espino M.D. 07/13/2022 11:57 AM Chest X-Ray 07/13/22 11:05 XR chest 1V portable HISTORY: 67 years-old Male abd pain acute chest and abdominal pain COMPARISON: CT abdomen and pelvis of same day, Chest radiograph 05/23/2022 TECHNIQUE: AP view the chest FINDINGS: Cardiomediastinal and hilar silhouettes are within normal limits. Atherosclerosis of the aorta. No pneumothorax, pleural effusion, airspace consolidation or overt pulmonary edema. Degenerative changes of the shoulders and spine. IMPRESSION: No acute process. ACT 112: Negative or not required by law. The above report was generated using voice recognition software. It may contain grammatical, syntax or spelling errors. Electronically signed by: Alan Espino M.D. 07/13/2022 11:41 AM ECG Additional Comments: Sinus rhythm with premature supraventricular complexes Code Status & VTE Plan Code Status Conditional; no cpr or defibrillation in the event of cardiac arrest, would want a trial of intubation VTE Prophylaxis Plan VTE Prophylaxis will be ordered: Yes Supervising Physician Co-Signing Physician Notes Patient seen and examined, chart reviewed, case discussed with Finn Ventura PA-C and I agree with the assessment and plan as above except as otherwise noted Labs and images reviewed "Bill "is a 67-year-old male with past medical history of CKD 3, SERRANO cirrhosis, hypothyroidism, GERD, psoriatic arthritis, portal hypertensive gastropathy, grade 1 esophageal varices, GI bleed presents with ongoing abdominal swelling and discomfort. Tachycardic and afebrile in the ER. Due to his significant tenderness on the abdomen on outpatient exam there was concern for SBP and he was recommended for hospital admission. At bedside evaluation he is overtly fluid overloaded with ascites, anasarca, and diffuse lower extremity leg swelling. He is severely hypoalbuminemic. He has received Lasix while in the ED for fluid overload, diuresis limited by poor oncotic pressure with hypoalbuminemia. Patient is continued on midodrine and given albumin with his diuresis to help facilitate fluid mobilization. Patient would benefit from therapeutic paracentesis, this cannot be done today and discussion with IR/radiology. Given abdominal tenderness on exam which remains present on prov ider reassessment we will continue empiric SBP prophylaxis with Rocephin. Lungs are grossly clear, heart rate is regular with intermittent mild tachycardia. Agree with assessment and management as above PG Care Time/CCT Total # of Minutes Spent Total Time Spent with Patient: Total time spent is greater than 50% in coordination of care (as documented) at patient's floor/unit and/or counseling patient: Coding [place] [address] INT INP/OBS CARE 3/75MIN Patient Type Established Medical Decision Making High Complexity Diagnoses Anasarca R60.1 Abdominal pain R10.9 Acute kidney injury superimposed on chronic kidney disease N17.9; N18.9 Hypokalemia E87.6 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 K75.81; K74.60 Hyponatremia E87.1 PSVT (paroxysmal supraventricular tachycardia) I47.1 Hypothyroidism E03.9 GERD (gastroesophageal reflux disease) K21.9 Pancytopenia D61.818 Depression F32.A
[2022-07-13] MEDS ORDERED: cefTRIAXone SODIUM 2,000 MG in DEXTROSE 5% AD-VAN 50 ML IV STA (14:13)
[2022-07-13] MEDS ORDERED: cefTRIAXone SODIUM 2,000 MG/70 ML BAG IV STA (14:27)
[2022-07-13 14:30] LABS: Appearance Urine Cloudy (Clear); Bacteria Urine Automated Negative (Negative); Bilirubin Urine Negative (Negative); Blood Urine 2+ (Negative); Color Urine Yellow; Glucose Urine UA Negative (Negative); Ketones Urine Negative (Negative); Leukocyte Esterase Urine 2+ (Negative); Nitrite Urine Negative (Negative); Protein Urine Negative (Negative); Specific Gravity Urine 1.011 (1.000-1.030); Urobilinogen Urine Negative (Negative); WBC Urine Automated >30 /hpf (0-5)
[2022-07-13] MEDS ORDERED: POTASSIUM CHLORIDE CRTAB 20 MEQ TABCR PO STA (15:05)
--- NOTE | 2022-07-13 15:42 | Electrocardiogram Report ---
Test Reason : Blood Pressure : / mmHG Vent. Rate : 093 BPM Atrial Rate : 000 BPM P-R Int : 000 ms QRS Dur : 088 ms QT Int : 378 ms P-R-T Axes : 000 -24 003 degrees QTc Int : 469 ms Normal sinus rhythm Poor R wave progression, consider anterior NC vs. lead placement vs. LVH Abnormal ECG When compared with ECG of 08-JUN-2022 06:25, Nonspecific T wave abnormality now evident in Anterior leads Confirmed by Franklyn Hartman ([id number]) on 07/13/2022 3:42:07 PM Referred By: REFERRED SELF Confirmed By:Juan Hartman
[2022-07-13 15:53] LABS: Magnesium 1.7 mg/dl (1.7-2.4)
[2022-07-13] MEDS: ALBUMIN 25% 25 GM/100 ML VIAL IV SCH ×2 (15:57→17:47)
--- NOTE | 2022-07-13 16:15 | Nephrology Consultation ---
Date of Consultation July 13, 2022 Assessment & Plan (1) Acute kidney injury superimposed on chronic kidney disease: Non-oliguric. Electrolytes acceptable. Hypervolemic. COLLIN likely related to intravascular volume depletion from diuretics. Urine studies pending. CT without obstruction. There is no emergent indication for dialysis. Baseline creatinine 1.5-2.0 mg/dL. Agree with IV albumin and monitored diuresis. Document strict I/Os. Repeat metabolic profile tomorrow AM. Medications are currently appropriately dosed for kidney function. (2) Abdominal pain: Etiology unclear. Stool studies have been ordered. Lactulose held due to diarrhea. Diagnostic and therapeutic paracentesis arranged. (3) Decompensated hepatic cirrhosis: MELD 24. [place] [facility] History of HE, EV, and ascites. No history of SBP. Albumin to be provided with any large volume paracentesis. (4) Anasarca: Continued diuresis with furosemide and spironolactone. Low sodium diet. PRN IV albumin. Midodrine for BP support. Document I/O's. (5) Anemia: Anemia of CKD and history of GAVE/portal gastropathy. No signs of active GI bleeding reported. Denies symptoms. Aranesp provided in clinic yesterday. Iron profile to be updated with next blood work. History of Present Illness Reason for Consultation: COLLIN on CKD, SERRANO cirrhosis, volume overload Requesting Physician: Thaddeus Taylor MD Attending Physician: Thaddeus Taylor MD History of Present Illness Spike is well known to me from the outpatient nephrology clinic. I saw Spike in the clinic yesterday for follow up regarding COLLIN and CKD. CKD IIIb-IV A1 attributed to microvascular disease and multiple episodes of ATN. Baseline creatinine ~1.5-2.0 mg/dL. Spike was referred to the ER with diffuse abdominal pain and progressive fluid retention with concern for possible SBP. He presented to the ER today and has been admitted to the hospitalist service for inpatient medical management. I reviewed the plan of care with Dr. Ventura. Medical history is notable for cirrhosis due to SERRANO (child page C with MELD 24), psoriatic arthritis (maintained on Humira), spinal stenosis/OA/DJD including knees and shoulders, hypertension, recurrent nephrolithiasis,history of urethral reconstruction (4 years ago at [facility] [place]) and recent cystoscopy with urethral dilation by Dr. Guzman on June 12. He has struggle with chronic hypotension and is maintained on midodrine. He has not been able to tolerate beta blockers due to orthostasis and presyncope. Spkie follows with Dr. Espitia in the hepatology clinic. He recently completed pretransplant evaluation for listing for liver transplant but is not yet active on the list. Complications of cirrhosis include a history of hepatic encephalopathy, esophageal varices wit hout bleed, and ascites. Spike has a notable chronic anemia requiring PRBC transfusions several times due to portal gastropathy and GAVE. He is maintained on Aranesp for anemia of CKD through my clinic and follows with Dr. Pool in the hematology clinic where IV iron is provided PRN. He had been taking furosemide 40 mg BID and spironolactone 50 mg daily. He reports good urine output. Appetite has been poor and he is not drinking an excessive amount of fluid. He denies edema. Furosemide 80 mg I was provided in the ER prior to admission. IV albumin 50 gm being provided now. Diagnostic and therapeutic paracentesis scheduled for tomorrow. Empiric ceftriaxone and metronidazole has been provided. Laboratory studies notable for a creatinine slightly elevated at 2.3 mg/dL. Allergies Allergy/AdvReac Type Severity Reaction Status Date / Time tamsulosin Allergy Intermediate HIVES Verified 07/12/22 10:29 etanercept [From Enbrel] AdvReac Intermediate Increased Verified 07/12/22 10:29 infections Home Medications Medication Instructions Recorded Confirmed Type cholecalciferol (vitamin D3) 50 50 mcg PO QAM #90 caps 05/15/21 07/13/22 Rx mcg (2,000 unit) capsule lactulose 10 gram/15 mL oral 20 g (30 mL) PO BID #946 mL 09/19/21 07/13/22 Rx solution vitamin B complex 1 tab PO DAILY 10/23/21 07/13/22 History adalimumab 40 mg/0.4 mL 40 mg (0.4 mL) subcut Q14D #2 ea 01/03/22 07/13/22 Rx subcutaneous pen kit (Humira(CF) Pen) rifaximin 550 mg tablet (Xifaxan) 550 mg PO BID #60 tabs 01/16/22 07/13/22 Rx midodrine 5 mg tablet 5 mg PO TID #180 tabs 05/03/22 07/13/22 Rx pantoprazole 40 mg tablet,delayed 40 mg PO BID #60 tabs 05/16/22 07/13/22 Rx release darbepoetin coretta in polysorbat 100 100 mcg subcut .COMPLEX PRN 05/23/22 07/13/22 History mcg/0.5 mL in polysorbate NEEDED injection syringe ondansetron HCl 4 mg tablet 4 mg PO Q8H PRN Nausea And 06/21/22 07/13/22 Rx Vomiting #30 tabs paroxetine HCl 10 mg tablet 10 mg PO QPM 06/21/22 07/13/22 History furosemide 40 mg tablet 40 mg PO BID #180 tabs 07/02/22 07/13/22 Rx spironolactone 25 mg tablet 50 mg PO QAM #180 tabs 07/02/22 07/13/22 Rx sucralfate 100 mg/mL oral 10 ml PO BID 07/13/22 07/13/22 History suspension Patient History Medical History Anemia Ascites Cervical disc disease CKD (chronic kidney disease), stage III Depression Esophageal varices determined by endoscopy GAVE (gastric antral vascular ectasia) Per records GERD (gastroesophageal reflux disease) History of GI bleed discharged from [facility] 06/10/22: borderline hemorrhagic shock-upper GI bleed suspected to be d/t GAVE-received 1 unit of PRBC History of herniated intervertebral disc lumbar area History of SCC (squamous cell carcinoma) of skin S/p removal- follows with derm Hx of blood clots 06/2021 @ [facility]- pt reports blood clot in left arm around IV site after being discharged from hospital- no meds due to current blood loss issue- warm compresses to site per pt- 2 ultrasounds done - no current issues Hx of upper gastrointestinal hemorrhage recent hospitalization at [facility] 06/07/2022 Hypothyroidism 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 current work-up for planned liver transplant per [facility] transplant clinic records Lumbar disc disease Oral mucositis On mouthwash daily- no recent issues Pancytopenia Portal hypertensive gastropathy Post-traumatic urethral stricture Psoriasis Psoriatic arthritis PVT (portal vein thrombosis) denies Spinal stenosis EPIDURAL INJECTIONS IN PAST FOR PAIN RELIEF TMJ arthralgia Urinary retention Urinary tract infection Wide-complex tachycardia ON CARDVEDILOL-F/U DR VANESSA LAST VISIT<1 YR AGO Surgical History H/O foot surgery excision of neuroma b/l feet History of appendectomy History of arthroscopy RT KNEE History of cataract surgery RT/LEFT History of cholecystectomy History of esophagogastroduodenoscopy (EGD) last 03/21/22 @ [facility] 02/08/22 Dr. Sara Cloud- EGD- Grade I esophageal varices, Portal hypertensive gastropathy History of herniorrhaphy right inguinal History of lithotripsy History of liver biopsy History of repair of rotator cuff RT/LEFT History of tooth extraction History of urologic surgery Urethral reconstruction 4 years ago at [facility] Nausea and vomiting after administration of anesthetic agent S/P colonoscopy S/P epidural steroid injection S/P orchiectomy Right age 9 for UDT S/P urological surgery (2018) [facility] [place] Suprapubic catheter AND REMOVAL Family History Grandmother (Maternal) Diabetes Father Renal cancer Mother Aortic aneurysm Denies family history of Ovarian cancer Prostate cancer Myocardial infarction Breast cancer Colorectal cancer Social History Smoking Status: Never smoker Second Hand Exposure: No; Do You Dip or Chew Tobacco: No; Hx Alcohol Use: No Hx Substance Use: No Preferred Language: Tamazight Communication Ability: Effective Visual Impairment: No Limitations Hearing Ability: Hard of Hearing Day Care Home Provider Required: No Beliefs That Will Affect Care: None marital status: / Current Living Situation: Family Current Living Situation Comment: lives home with son and daughter in law current occupational status: retired How many Children do You have: 1 Other Information That Helps Us Care for You: No Feels Safe at Home: Yes Safety Concerns: Feels Safe At This Time Diet: regular Diet Comment: regular caffeine: Yes during the past year weight has: decreased > 10 lbs Dental Care, Regularly: No Physical Activity Frequency: Other Physical Activity Frequency Comment: does all housework/outside work and cuts wood Seatbelt Use: never Sunscreen Use: No Assistive Devices: Cane Review of Systems Review of Systems: All systems reviewed & are unremarkable except as noted in HPI & below Physical Exam Constitutional: well developed, + obese and comfortable; no acute distress Eyes: + anicteric sclerae Neck: normal visual inspection and trachea midline Respiratory: normal respiratory effort Auscultation: lungs clear to auscultation bilaterally Cardiovascular: Rate/Rhythm: regular rate Heart Sounds: normal S1 and normal S2 Extremities: + edema Gastrointestinal (Abdomen): Inspection/Auscultation: + abdomen distended Percussion/Palpation: + abdomen tender, abdomen soft and + ascites; no guarding and abdomen not rigid Musculoskeletal: Extremities: no cyanosis and no clubbing Skin: normal turgor; no lesions Neurologic: Motor/Sensory: no tremor and no asterixis Psychiatric: Orientation: alert and oriented x 3 Results & Data Vital Signs (Past 12 Hours) Vital Signs Temp Pulse Pulse Resp BP BP Pulse Ox 07/13/22 16:13 94 H 07/13/22 15:39 07/13/22 15:39 36.4 C L 110 H 18 110/71 97 07/13/22 14:38 100 H 18 111/52 L 98 07/13/22 13:28 100 H 20 111/79 96 07/13/22 11:58 100 07/13/22 11:58 96 H 20 121/72 100 07/13/22 10:46 36.9 C 100 H 20 111/66 99 O2 Del Method 07/13/22 16:13 07/13/22 15:39 Room Air 07/13/22 15:39 Room Air 07/13/22 14:38 Room Air 07/13/22 13:28 Room Air 07/13/22 11:58 Room Air 07/13/22 11:58 Room Air 07/13/22 10:46 Room Air Laboratory Results Laboratory Results - last 24 hr 07/13/22 07/13/22 07/13/22 11:15 11:26 11:26 WBC 5.81 RBC 2.48 L Hgb 8.8 L Hct 26.9 L MCV 108.5 H MCH 35.5 H MCHC 32.7 RDW Std Deviation 78.7 H RDW Coeff of Miguel 19.8 H Plt Count 94 L MPV 9.6 Immature Gran % (Auto) 1.4 Neut % (Auto) 69.3 Lymph % (Auto) 12.6 [place] % (Auto) 12.9 Eos % (Auto) 2.9 Baso % (Auto) 0.9 Neut # (Auto) 4.03 Lymph # (Auto) 0.73 L [place] # (Auto) 0.75 H Eos # (Auto) 0.17 Baso # (Auto) 0.05 Immature Gran # (Auto) 0.08 PT INR APTT PTT Ratio Sodium 133 L Potassium 3.4 L Chloride 100 Carbon Dioxide 29 Anion Gap 4 BUN 25 H Creatinine 2.38 H Est Cr Clr Drug Dosing 38.6 Est GFR ( Amer) 31.3 Est GFR (Non-Af Amer) 27.0 BUN/Creatinine Ratio 10.5 Glucose 142 H Calcium 9.0 Magnesium 1.7 Total Bilirubin 2.3 H AST 30 ALT 13 Alkaline Phosphatase 146 H Troponin I High Sens 8.2 Total Protein 6.0 Albumin 2.0 L Globulin 4.0 Albumin/Globulin Ratio 0.5 L Lipase 19 Procalcitonin Urine Color Urine Appearance Urine pH Ur Specific [place] Urine Protein Urine Glucose (UA) Urine Ketones Urine Blood Urine Nitrite Urine Bilirubin Urine Urobilinogen Ur Leukocyte Esterase Urine WBC (Auto) Urine RBC (Auto) U Hyaline Cast (Auto) U Epithel Cells (Auto) Urine Bacteria (Auto) SARS-CoV-2, RNA, NAAT NEGATIVE 07/13/22 07/13/22 07/13/22 11:26 11:26 13:34 WBC RBC Hgb Hct MCV MCH MCHC RDW Std Deviation RDW Coeff of Miguel Plt Count MPV Immature Gran % (Auto) Neut % (Auto) Lymph % (Auto) [place] % (Auto) Eos % (Auto) Baso % (Auto) Neut # (Auto) Lymph # (Auto) [place] # (Auto) Eos # (Auto) Baso # (Auto) Immature Gran # (Auto) PT 14.8 H INR 1.4 H APTT 31.6 H PTT Ratio 1.1 Sodium Potassium Chloride Carbon Dioxide Anion Gap BUN Creatinine Est Cr Clr Drug Dosing Est GFR ( Amer) Est GFR (Non-Af Amer) BUN/Creatinine Ratio Glucose Calcium Magnesium Total Bilirubin AST ALT Alkaline Phosphatase Troponin I High Sens Total Protein Albumin Globulin Albumin/Globulin Ratio Lipase Procalcitonin 0.20 Urine Color Yellow Urine Appearance Cloudy A Urine pH 6.0 Ur Specific [place] 1.011 Urine Protein Negative Urine Glucose (UA) Negative Urine Ketones Negative Urine Blood 2+ H Urine Nitrite Negative Urine Bilirubin Negative Urine Urobilinogen Negative Ur Leukocyte Esterase 2+ H Urine WBC (Auto) >30 H Urine RBC (Auto) 10-30 H U Hyaline Cast (Auto) 1-5 U Epithel Cells (Auto) 10-20 H Urine Bacteria (Auto) Negative SARS-CoV-2, RNA, NAAT Diagnostic Findings ABDOMEN AND PELVIS CT WITHOUT CONTRAST FINDINGS: Cardia mainly with coronary artery calcifications. Mild subsegmental bibasilar atelectasis. No pneumatosis or pneumoperitoneum. The unenhanced spleen is mildly enlarged, 13.5 cm. Moderately atrophic pancreas. Adrenal glands are within normal limits. Cholecystectomy. Cirrhotic atrophic liver. No hepatic mass identified. Moderate abdominal pelvic ascites. Abdominal varicosities again noted. There are a few punctate nonobstructing calculi noted within the bilateral kidneys. 6 no immediate or nonobstructing calculus of the inferior pole left kidney. 4 mm calculus in the inferior pole right kidney. Cortical thinning of the kidneys. Urinary bladder wall thickening with partial distention and perivesicular stranding. Atherosclerosis of the aorta. No lymphadenopathy. Wall thickening of the stomach with partial distention. No bowel obstruction. No skin thickening bowel wall thickening. Mild anasarca. Degenerative changes of the spine, pelvis and hips. IMPRESSION: 1. Cirrhosis with stigmata of portal venous hypertension including splenomegaly with abdominal varicosities and abdominal pelvic ascites. 2. No bowel obstruction or pneumoperitoneum. 3. Nonobstructing bilateral nephrolithiasis. 4. Urinary bladder wall thickening with partial distention. Correlate with urinalysis to exclude cystitis. 5. Additional findings as above. XR chest 1V portable FINDINGS: Cardiomediastinal and hilar silhouettes are within normal limits. Atherosclerosis of the aorta. No pneumothorax, pleural effusion, airspace consolidation or overt pulmonary edema. Degenerative changes of the shoulders and spine. IMPRESSION: No acute process. PG Care Time/CCT Total # of Minutes Spent Total Time Spent with Patient: Total time spent is greater than 50% in coordination of care (as documented) at patient's floor/unit and/or counseling patient: Coding Level of Care Code 02514 IN/OBS CONSULT LVL 4,60M Diagnoses Acute kidney injury superimposed on chronic kidney disease N17.9; N18.9 Abdominal pain R10.9 Decompensated hepatic cirrhosis K72.90; K74.60 Anasarca R60.1 Anemia D64.9
[2022-07-13] MEDS: MIDODRINE HCL 2.5 MG TAB PO SCH (16:31)
[2022-07-13] MEDS: metroNIDAZOLE 500 MG/100 ML BAG IV SCH ×2 (16:34→23:59)
--- NOTE | 2022-07-13 16:43 | Electrocardiogram Report ---
Test Reason : Blood Pressure : / mmHG Vent. Rate : 097 BPM Atrial Rate : 097 BPM P-R Int : 176 ms QRS Dur : 078 ms QT Int : 344 ms P-R-T Axes : 042 -22 003 degrees QTc Int : 436 ms Sinus rhythm with Premature supraventricular complexes Low voltage QRS Possible Anterolateral infarct (cited on or before 13-JUL-2022) Abnormal ECG When compared with ECG of 13-JUL-2022 11:23, Premature supraventricular complexes are now Present Confirmed by Franklyn Hartman [id number]) on 07/13/2022 4:43:38 PM Referred By: REFERRED SELF Confirmed By:Juan Hartman
[2022-07-13 20:23] LABS: Albumin Globulin Ratio 0.8 (0.9-2); Albumin Level 2.7 gm/dl (3.4-5.0); Bilirubin,Total 2.7 mg/dl (0.2-1.0); Calcium 9.3 mg/dl (8.6-10.3); Est GFR (African American) 32.6 ml/min; Est GFR (Non-African American) 28.1 ml/min; Globulin 3.4 gm/dl (2.5-4.0); Potassium 3.9 mmol/L (3.5-5.1); Total Protein 6.1 gm/dl (6.0-8.3)
[2022-07-13] MEDS: PANTOprazole 40 MG TAB PO SCH (20:46)
[2022-07-13] MEDS: SUCRALFATE 1 GM/10 ML UDC PO SCH (20:47)
[2022-07-13] MEDS: PARoxetine HCL 10 MG TAB PO SCH (20:47)
[2022-07-13] MEDS: rifAXIMin 550 MG TABLET PO SCH (20:47)
[2022-07-14 07:37] LABS: Basophils # (auto) 0.02 K/uL (0-0.2); Basophils % (auto) 0.6 %; Eosinophils % (auto) 3.2 %; Hematocrit (blood only) 23.6 % (42.0-52.0); Hemoglobin 7.8 g/dl (14.0-18.0); Immature Granulocytes # (auto) 0.01 K/uL (0.01-0.20); Immature Granulocytes % (auto) 0.3 %; Lymphocytes # (auto) 0.44 K/uL (1.2-3.4); Lymphocytes % (auto) 14.1 %; Mean Corpuscular Hemoglobin 35.5 pg (25.0-34.0); Mean Corpuscular Hgb Conc 33.1 g/dL (32.0-36.0); Mean Corpuscular Volume 107.3 fL (80.0-100.0); Mean Platelet Volume 9.1 fL (9.4-12.4); Monocytes # (auto) 0.42 K/uL (0.11-0.59); Monocytes % (auto) 13.5 %; Neutrophils # (auto) 2.12 K/uL (1.40-6.50); Neutrophils % (auto) 68.3 %; Platelet Count 58 K/uL (130-400); RDW Coefficient of Variation 19.8 % (11.5-14.5); RDW Standard Deviation 77.8 fL (36.4-46.3); White Blood Count 3.11 K/ul (4.8-10.8)
[2022-07-14 07:57] LABS: Albumin Globulin Ratio 0.7 (0.9-2); Albumin Level 2.3 gm/dl (3.4-5.0); BUN Creatinine Ratio 11.9 (10-20); Bilirubin,Total 2.8 mg/dl (0.2-1.0); Calcium 9.4 mg/dl (8.6-10.3); Creatinine Clr Calc Pharmacy 45.5 ml/min; Est GFR (African American) 38.1 ml/min; Est GFR (Non-African American) 32.9 ml/min; Globulin 3.2 gm/dl (2.5-4.0); Magnesium 1.7 mg/dl (1.7-2.4); Potassium 4.3 mmol/L (3.5-5.1); Total Protein 5.5 gm/dl (6.0-8.3)
[2022-07-14 08:02] LABS: Anisocytosis Present
[2022-07-14 08:04] LABS: INR 1.5 (0.9-1.1)
[2022-07-14] MEDS: MIDODRINE HCL 2.5 MG TAB PO SCH ×3 (08:16→17:44)
[2022-07-14] MEDS: rifAXIMin 550 MG TABLET PO SCH ×2 (08:16→20:53)
[2022-07-14] MEDS: PANTOprazole 40 MG TAB PO SCH ×2 (08:16→20:53)
[2022-07-14] MEDS: CHOLECALCIFEROL 1,000 UNITS 25 MCG TAB PO SCH (08:16)
[2022-07-14] MEDS: SUCRALFATE 1 GM/10 ML UDC PO SCH ×2 (08:17→20:54)
[2022-07-14] MEDS: VITAMIN B COMPLEX TAB PO SCH (08:17)
[2022-07-14] MEDS: metroNIDAZOLE 500 MG/100 ML BAG IV SCH (08:20)
--- NOTE | 2022-07-14 08:43 | Nephrology Progress Note ---
Date of Service July 14, 2022 Assessment & Plan (1) Acute kidney injury superimposed on chronic kidney disease: Plan: * COLLIN due to 3rd spacing of volume and poor renal perfusion * Patient is nonoliguric. Electrolyte balance is acceptable * Net 1 L diuresis overnight * Will provide IV albumin today * Increase Spironolactone to 50 mg po BID * Will provide Furosemide 20 mg IV BID * Monitor UO, volume status and kidney function (2) CKD (chronic kidney disease), stage III: Plan: * Baseline creatinine 1.5-2.0 mg/dL (3) Anemia: Plan: * Anemia of CKD and history of GAVE/portal gastropathy. No signs of active GI bleeding reported * Aranesp provided in office 07/13/22 * Iron saturation, ferritin w/ am lab draw (4) Abdominal pain: Plan: * Etiology unclear. Stool studies have been ordered. Lactulose held due to diarrhea. Diagnostic and therapeutic paracentesis has been ordered by primary service (5) Decompensated hepatic cirrhosis: Plan: * MELD 24. Transplant evaluation has been initiated through [facility]. History of HE, EV, and ascites. No history of SBP. Admission and Anticipated Discharge Date Admission Date: July 13, 2022 Subjective Mr. Quiñonez was evaluated in his hospital room this morning. He reports continued abdominal tenderness, diarrhea and LE swelling but notes that his UO has improved Review of Systems Constitutional: no fever Eyes: no problem reported Ear, Nose, Mouth, Throat: no problem reported Respiratory: no cough and no dyspnea Cardiovascular: no chest pain Gastrointestinal: no abdominal pain, no nausea, no vomiting and no diarrhea/loose stools Genitourinary: no hematuria Physical Exam Constitutional: not in distress Eyes: PERRL, conjunctivae normal, anicteric sclerae ENMT: external ear and nose normal, oropharynx normal Neck: trachea midline, no thyromegaly Respiratory: normal respiratory effort, lungs clear to auscultation Cardiovascular: Rate/Rhythm: regular rate and regular rhythm Extremities: + edema (3+ LE swelling) Gastrointestinal (Abdomen): Inspection/Auscultation: + abdomen distended Percussion/Palpation: + abdomen tender and abdomen soft; no guarding Neurologic: Speech / Cognition: normal speech and normal cognition Results & Data Vital Signs (Past 12 Hours) Vital Signs Temp Pulse Pulse Resp BP Pulse Ox O2 Del Method 07/14/22 07:39 36.6 C 94 H 18 94/58 L 98 Room Air 07/14/22 07:39 94 H 07/14/22 03:00 36.5 C 96 H 18 95/56 L 96 Room Air 07/13/22 22:00 36.6 C 94 H 18 121/76 96 Room Air 07/13/22 22:00 96 H 07/13/22 22:22 Room Air Laboratory Results Laboratory Tests 06/13/22 07/09/22 07/13/22 11:55 13:46 13:34 WBC Hgb Hct Plt Count Sodium Potassium Chloride Carbon Dioxide BUN Creatinine Est GFR (Non-Af Amer) Glucose Calcium Magnesium Ferritin 255.7 Total Bilirubin AST ALT Alkaline Phosphatase Albumin Urine Color Yellow Urine Appearance Cloudy A Urine pH 6.0 Ur Specific [place] 1.011 Urine Protein Negative Urine Glucose (UA) Negative Urine Blood 2+ H Urine RBC (Auto) 10-30 H Microalb/Creat Ratio 24.2 07/14/22 07/14/22 07:14 07:14 WBC 3.11 L Hgb 7.8 L Hct 23.6 L Plt Count 58 L Sodium 139 Potassium 4.3 Chloride 103 Carbon Dioxide 33 H BUN 24 H Creatinine 2.02 H Est GFR (Non-Af Amer) 32.9 Glucose 100 H Calcium 9.4 Magnesium 1.7 Ferritin Total Bilirubin 2.8 H AST 27 ALT 11 Alkaline Phosphatase 93 Albumin 2.3 L Urine Color Urine Appearance Urine pH Ur Specific [place] Urine Protein Urine Glucose (UA) Urine Blood Urine RBC (Auto) Microalb/Creat Ratio Diagnostic Findings 07/13/22 CXR: Cardiomediastinal and hilar silhouettes are within normal limits. Atherosclerosis of the aorta. No pneumothorax, pleural effusion, airspace consolidation or overt pulmonary edema. Degenerative changes of the shoulders and spine. 07/13/[address]: 1. Cirrhosis with stigmata of portal venous hypertension including splenomegaly with abdominal varicosities and abdominal pelvic ascites. 2. No bowel obstruction or pneumoperitoneum. 3. Nonobstructing bilateral nephrolithiasis. 4. Urinary bladder wall thickening with partial distention. Correlate with urinalysis to exclude cystitis. 5. Additional findings as above. 07/10/22 Renal US: The right kidney measures 9.1 cm in length, and the left kidney measures 8.1 cm in length. The right kidney is normal in size, contour, cortical thickness, and echogenicity. No hydronephrosis is identified. Cysts are seen. An upper pole echogenic focus may represent a nonobstructive stone. The left kidney is normal in size, contour, cortical thickness and echogenicity. No hydronephrosis is identified. Nonobstructive stone is noted. The bladder is underdistended limiting visualization. Incidental note is made of ascites. PG Care Time/CCT Total # of Minutes Spent Total Time Spent with Patient: Total time spent is greater than 50% in coordination of care (as documented) at patient's floor/unit and/or counseling patient: Coding Level of Care Code 54512 SUB INP/OBS CARE 3/50MIN Diagnoses Acute kidney injury superimposed on chronic kidney disease N17.9; N18.9 CKD (chronic kidney disease), stage III N18.3 Anemia D64.9 Abdominal pain R10.9 Decompensated hepatic cirrhosis K72.90; K74.60
[2022-07-14] MEDS ORDERED: SPIRONOLACTONE 25 MG TAB PO SCH (09:00)
[2022-07-14 11:34] LABS: Adenovirus F 40/41 PCR Not Detected (NotDetected); Astrovirus PCR Not Detected (NotDetected); Campylobacter PCR Not Detected (NotDetected); Cryptosporidium PCR Not Detected (NotDetected); Cyclospora cayetanensis PCR Not Detected (NotDetected); Entamoeba histolytica PCR Not Detected (NotDetected); Enteroaggregative E.coli(EAEC) Not Detected (NotDetected); Enteropathogenic E.coli (EPEC) Not Detected (NotDetected); Enterotoxigenic E.coli (ETEC) Not Detected (NotDetected); Giardia lamblia PCR Not Detected (NotDetected); Norovirus GI/GII PCR Not Detected (NotDetected); Plesiomonas shigelloides PCR Not Detected (NotDetected); Rotavirus A PCR Not Detected (NotDetected); Salmonella PCR Not Detected (NotDetected); Sapovirus PCR Not Detected (NotDetected); Shiga-like Toxin E.coli (STEC) Not Detected (NotDetected); Shigella/Enteroinvasive E.coli Not Detected (NotDetected); Vibrio cholerae PCR Not Detected (NotDetected); Vibrio species PCR Not Detected (NotDetected); Yersinia enterocolitica PCR Not Detected (NotDetected)
[2022-07-14] MEDS: FUROSEMIDE INJ 20 MG/2 ML VIAL IV SCH ×2 (11:45→17:47)
[2022-07-14] MEDS: ALBUMIN 25% 25 GM/100 ML VIAL IV SCH ×2 (11:47→20:53)
[2022-07-14] MEDS: cefTRIAXone SODIUM 2,000 MG in DEXTROSE 5% 50 ML IV SCH (13:44)
--- NOTE | 2022-07-14 14:03 | Gastrointestinal Consultation ---
Date of Consultation July 14, 2022 History of Present Illness Reason for Consultation: cirrhosis Attending Physician: Alexus Blancas MD History of Present Illness 67 yo M with SERRANO cirrhosis with h/o hypervolemia + renal insuff with baseline creat 1.7 on lasix/aldactone + midodrine as outpt; maintained on lactulose/xifaxan; MARIBEL thought to be secondary to severe PHG; undergoing LT eval; now admit with worsening abd distention and pain. Fair compliance with diet, unsure of how compliant he is with meds. He denies diarrhea to me, although admit notes list this as part of presenting complaint. Admit w/u sig for stable hgb; BUN 24, Creat 2.4 from last 1.7-2; bili 3; U na 95; albumin 2 which is close to baseline; non con abd CT with mod ascites. Since admit, he has had nephro consult, recommended Lasix 20 IV BID and albumin 25 BID with diuresis of 1 liter and improved creat. He is also empirically on Rocephin/Flagyl, awaiting tap on Saturday to r/o SBP. PE: appears comfortable. His mobility is limited - requires assistance to sit up. Bp 130/72, P 93 HEENT: Bitemp wasting, mild scleral icterus, no thrush, no increased JVP or HJR Resp: Decr BS bases bilat Abd: Large pannus and moderate flank edema, mod distended although pannus makes exam difficult : minimal scrotal edema Extrem: Marked pedal edema to thigh, + jaundice, no bruising, has difficulty lifting leg when lying down Neuro/psych: no asterixis, conversant and pleasant although speech mildly slow. Labs reviewed: A/P: Cirrhosis with volume overload, renal insuff, marked hypoalbuminemia, ? SBP - Regarding vol overload, COLLIN - Nephro managing diuresis. Would consider increasing albumin infusions to 75 gms daily to assist with diuresis, but will defer to nephro. Agree with midodrine, but can hold for MAP > 65. 2 gm Na diet; although no hyponatremia, would consider gentle fluid restriction. - ? SBP - Agree with empiric Rocephin, will need empiric 7 day course . No clear indication for Flagyl, consider dc. Allergies Allergy/AdvReac Type Severity Reaction Status Date / Time tamsulosin Allergy Intermediate HIVES Verified 07/12/22 10:29 etanercept [From Enbrel] AdvReac Intermediate Increased Verified 07/12/22 10:29 infections Home Medications Medication Instructions Recorded Confirmed Type cholecalciferol (vitamin D3) 50 50 mcg PO QAM #90 caps 05/15/21 07/13/22 Rx mcg (2,000 unit) capsule lactulose 10 gram/15 mL oral 20 g (30 mL) PO BID #946 mL 09/19/21 07/13/22 Rx solution vitamin B complex 1 tab PO DAILY 10/23/21 07/13/22 History adalimumab 40 mg/0.4 mL 40 mg (0.4 mL) subcut Q14D #2 ea 01/03/22 07/13/22 Rx subcutaneous pen kit (Humira(CF) Pen) rifaximin 550 mg tablet (Xifaxan) 550 mg PO BID #60 tabs 01/16/22 07/13/22 Rx midodrine 5 mg tablet 5 mg PO TID #180 tabs 05/03/22 07/13/22 Rx pantoprazole 40 mg tablet,delayed 40 mg PO BID #60 tabs 05/16/22 07/13/22 Rx release darbepoetin coretta in polysorbat 100 100 mcg subcut .COMPLEX PRN 05/23/22 07/13/22 History mcg/0.5 mL in polysorbate NEEDED injection syringe ondansetron HCl 4 mg tablet 4 mg PO Q8H PRN Nausea And 06/21/22 07/13/22 Rx Vomiting #30 tabs paroxetine HCl 10 mg tablet 10 mg PO QPM 06/21/22 07/13/22 History furosemide 40 mg tablet 40 mg PO BID #180 tabs 07/02/22 07/13/22 Rx spironolactone 25 mg tablet 50 mg PO QAM #180 tabs 07/02/22 07/13/22 Rx sucralfate 100 mg/mL oral 10 ml PO BID 07/13/22 07/13/22 History suspension Patient History Medical History Anemia Ascites Cervical disc disease CKD (chronic kidney disease), stage III Depression Esophageal varices determined by endoscopy GAVE (gastric antral vascular ectasia) Per records GERD (gastroesophageal reflux disease) History of GI bleed discharged from [facility] 06/10/22: borderline hemorrhagic shock-upper GI bleed suspected to be d/t GAVE-received 1 unit of PRBC History of herniated intervertebral disc lumbar area History of SCC (squamous cell carcinoma) of skin S/p removal- follows with derm Hx of blood clots 06/2021 @ [facility]- pt reports blood clot in left arm around IV site after being discharged from hospital- no meds due to current blood loss issue- warm compresses to site per pt- 2 ultrasounds done - no current issues Hx of upper gastrointestinal hemorrhage recent hospitalization at [facility] 06/07/2022 Hypothyroidism 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 current work-up for planned liver transplant per [facility] transplant clinic records Lumbar disc disease Oral mucositis On mouthwash daily- no recent issues Pancytopenia Portal hypertensive gastropathy Post-traumatic urethral stricture Psoriasis Psoriatic arthritis PVT (portal vein thrombosis) denies Spinal stenosis EPIDURAL INJECTIONS IN PAST FOR PAIN RELIEF TMJ arthralgia Urinary retention Urinary tract infection Wide-complex tachycardia ON CARDVEDILOL-F/U DR VANESSA LAST VISIT<1 YR AGO Surgical History H/O foot surgery excision of neuroma b/l feet History of appendectomy History of arthroscopy RT KNEE History of cataract surgery RT/LEFT History of cholecystectomy History of esophagogastroduodenoscopy (EGD) last 03/21/22 @ [facility] 02/08/22 Dr. Sara Cloud- EGD- Grade I esophageal varices, Portal hypertensive gastropathy History of herniorrhaphy right inguinal History of lithotripsy History of liver biopsy History of repair of rotator cuff RT/LEFT History of tooth extraction History of urologic surgery Urethral reconstruction 4 years ago at [facility] Nausea and vomiting after administration of anesthetic agent S/P colonoscopy S/P epidural steroid injection S/P orchiectomy Right age 9 for UDT S/P urological surgery (2018) BMG urethroplasty-C Suprapubic catheter AND REMOVAL Family History Grandmother (Maternal) Diabetes Father Renal cancer Mother Aortic aneurysm Denies family history of Ovarian cancer Prostate cancer Myocardial infarction Breast cancer Colorectal cancer Social History Smoking Status: Never smoker Second Hand Exposure: No; Do You Dip or Chew Tobacco: No; Hx Alcohol Use: No Hx Substance Use: No Preferred Language: Ukrainian Communication Ability: Effective Visual Impairment: No Limitations Hearing Ability: Hard of Hearing Mainframe Analyst Required: No Beliefs That Will Affect Care: None marital status: / Current Living Situation: Family Current Living Situation Comment: lives home with son and daughter in law current occupational status: retired How many Children do You have: 1 Other Information That Helps Us Care for You: No Feels Safe at Home: Yes Safety Concerns: Feels Safe At This Time Diet: regular Diet Comment: regular caffeine: Yes during the past year weight has: decreased > 10 lbs Dental Care, Regularly: No Physical Activity Frequency: Other Physical Activity Frequency Comment: does all housework/outside work and cuts wood Seatbelt Use: never Sunscreen Use: No Assistive Devices: Cane Results & Data Vital Signs (Past 12 Hours) Vital Signs Temp Pulse Pulse Resp BP Pulse Ox O2 Del Method 07/14/22 11:26 36.8 C 93 H 20 129/72 97 Room Air 07/14/22 07:39 36.6 C 94 H 18 94/58 L 98 Room Air 07/14/22 07:39 94 H 07/14/22 03:00 36.5 C 96 H 18 95/56 L 96 Room Air
--- NOTE | 2022-07-14 15:00 | Hospitalist Progress Note ---
Date of Service July 14, 2022 Assessment & Plan (1) Anasarca: Plan: Secondary to decompensated liver cirrhosis -Patient has significant abdominal ascites and LE edema, likely a combination of his SERRANO cirrhosis and CKD Appreciate GI and nephrology consultations -MELD-Na score today is 25, giving him a 14-15% 90-day mortality risk -Continue IV albumin, added IV Lasix, and increased spironolactone to twice daily -Follow daily weights, strict I's and O's -Plan for paracentesis on Saturday with IR -Follow CMP, magnesium (2) Abdominal pain: Plan: -Patient has been having progressive generalized abd pain over the past week, with tenderness on examination. No fevers or leukocytosis -Treating empirically for SBP while awaiting paracentesis on Saturday -CT of the abd/pelvis shows portal venous hypertension, splenomegaly, abd varicosities, and abdominal pelvic ascites, as well as a distended and partially thickened bladder -Has been having non-bloody, foul-smelling, and watery diarrhea, 5-6 episodes daily even while off lactulose since Saturday-none since coming into the hospital- collect stool PCR and C. difficile if has further diarrhea -Continue empiric ceftriaxone daily to cover SBP, UTI, no need for Flagyl- discontinue -Will consult IR pa for therapeutic paracentesis on Saturday, GI and Nephrology -Will continue to monitor closely -Follow blood cultures and urine culture (3) 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: Plan: -See anasarca-Lasix, Aldactone, albumin -Continue to hold Lactulose for now with diarrhea, no signs of encephalopathy -Continue rifaximin -[facility] GI consulted -Continue midodrine -He is being evaluated for liver transplant at [facility] in [place], follows with hepatology locally with Dr. Espitia at [facility] GI -With portal hypertensive gastropathy and history of GAVE, esophageal varices, anemia, thrombocytopenia and leukopenia all related to liver cirrhosis MELD score 24 Follow CBC, CMP, INR in the morning (4) Acute kidney injury superimposed on chronic kidney disease: Plan: -Cr at 2.38 on admission, baseline appears to be close to 1.9-2.0 -Given albumin on admission and creatinine down to 2.0 today -Likely due to being intravascularly depleted with recent increased in diuretic dosing and low albumin, could also be a component of obstruction with his hx of ureteral stricture and possible acute UTI -Appreciate nephrology consultation-continuing with IV albumin along with Lasix and Aldactone -Continue to monitor renal function and electrolytes closely -Avoid nephrotoxic agents (5) Pancytopenia: Plan: Secondary to liver cirrhosis, platelets lower than previous likely due to some hemodilution from IV albumin, similar reduction with WBC and hemoglobin Follow CBC (6) Hyponatremia: Plan: -Noted to be 133 on admission, secondary to cirrhosis and volume overload -Improved up to 139 -Follow BMP Continued efforts at diuresis and with IV albumin infusions (7) PSVT (paroxysmal supraventricular tachycardia): Plan: -None noted on telemetry -Continue to monitor on tele -Blood pressure is too low for beta-blockers (8) Hypothyroidism: Plan: -Continue levothyroxine TSH was normal in 03/2022 (9) GERD (gastroesophageal reflux disease): Plan: -Continue protonix and carafate (10) Depression: Plan: -Continue paroxetine (11) Diarrhea: Plan: As above, seems to be if related to lactulose and has resolved with stopping lactulose Check stool studies and PCR if returns (12) Urinary tract infection: Plan: Abnormal urinalysis as above, urine culture pending Continue ceftriaxone Plan Disposition-continued stay medical floor with telemetry Admission and Anticipated Discharge Date Admission Date: July 13, 2022 Subjective Patient reports ongoing abdominal pain and early satiety, not able to eat much. He has gained a lot of fluid weight over the last couple of weeks. No diarrhea since admission. Telemetry with sinus tachycardia normal sinus rhythm with rates in the 90s to 100s. I discussed his care with gastroenterology. Physical Exam Constitutional: WD/WN, vitals as above Neck: trachea midline, no thyromegaly Respiratory: normal respiratory effort; no cough Auscultation: + diminished lung sounds (At the bases bilaterally); no crackles and no wheezes Cardiovascular: Rate/Rhythm: regular rate and regular rhythm Heart Sounds: no murmur Extremities: + edema (4+ pitting edema to the thighs bilaterally) Gastrointestinal (Abdomen): Inspection/Auscultation: + abdomen distended and normal bowel sounds Percussion/Palpation: + abdomen tender (Diffusely without guarding or rebound tenderness) and abdomen soft Neurologic: moves all extremities and awake; no focal motor deficits Psychiatric: A+Ox3, euthymic affect Results & Data Results & Data Vital Signs (Past 12 Hours) Vital Signs Temp Pulse Pulse Resp BP Pulse Ox O2 Del Method 07/14/22 11:26 36.8 C 93 H 20 129/72 97 Room Air 07/14/22 07:39 36.6 C 94 H 18 94/58 L 98 Room Air 07/14/22 07:39 94 H Laboratory Results CBC, CMP, procalcitonin, urine culture and blood cultures reviewed PG Care Time/CCT Total # of Minutes Spent Total Time Spent with Patient: Total time spent is greater than 50% in coordination of care (as documented) at patient's floor/unit and/or counseling patient: Coding Level of Care Code 38131 SUB INP/OBS CARE 3/50MIN Diagnoses Anasarca R60.1 Abdominal pain R10.9 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 K75.81; K74.60 Acute kidney injury superimposed on chronic kidney disease N17.9; N18.9 Pancytopenia D61.818 Hyponatremia E87.1 PSVT (paroxysmal supraventricular tachycardia) I47.1 Hypothyroidism E03.9 GERD (gastroesophageal reflux disease) K21.9 Depression F32.A Diarrhea R19.7 Urinary tract infection N39.0; R31.9 Hematuria presence: with hematuria Urinary tract infection type: site unspecified (12) Urinary tract infection Hematuria presence: with hematuria Urinary tract infection type: site unspecified Qualified Code(s): N39.0 - Urinary tract infection, site not specified; R31.9 - Hematuria, unspecified
[2022-07-14] MEDS: SPIRONOLACTONE 25 MG TAB PO SCH (17:43)
[2022-07-14] MEDS: PARoxetine HCL 10 MG TAB PO SCH (20:54)
[2022-07-15 07:44] LABS: Basophils # (auto) 0.02 K/uL (0-0.2); Basophils % (auto) 0.5 %; Eosinophils # (auto) 0.15 K/uL (0-0.50); Eosinophils % (auto) 3.6 %; Hematocrit (blood only) 23.3 % (42.0-52.0); Hemoglobin 7.9 g/dl (14.0-18.0); Immature Granulocytes # (auto) 0.02 K/uL (0.01-0.20); Immature Granulocytes % (auto) 0.5 %; Lymphocytes # (auto) 0.76 K/uL (1.2-3.4); Lymphocytes % (auto) 18.4 %; Mean Corpuscular Hemoglobin 36.2 pg (25.0-34.0); Mean Corpuscular Hgb Conc 33.9 g/dL (32.0-36.0); Mean Corpuscular Volume 106.9 fL (80.0-100.0); Mean Platelet Volume 9.7 fL (9.4-12.4); Monocytes # (auto) 0.56 K/uL (0.11-0.59); Monocytes % (auto) 13.6 %; Neutrophils # (auto) 2.62 K/uL (1.40-6.50); Neutrophils % (auto) 63.4 %; Platelet Count 70 K/uL (130-400); RDW Coefficient of Variation 19.9 % (11.5-14.5); Red Blood Count 2.18 M/uL (4.70-6.10); White Blood Count 4.13 K/ul (4.8-10.8)
[2022-07-15] MEDS: FUROSEMIDE INJ 20 MG/2 ML VIAL IV SCH ×2 (07:59→17:25)
[2022-07-15] MEDS: SUCRALFATE 1 GM/10 ML UDC PO SCH ×2 (07:59→21:20)
[2022-07-15] MEDS: PANTOprazole 40 MG TAB PO SCH ×2 (07:59→21:20)
[2022-07-15] MEDS: MIDODRINE HCL 2.5 MG TAB PO SCH ×3 (07:59→17:24)
[2022-07-15] MEDS: VITAMIN B COMPLEX TAB PO SCH (07:59)
[2022-07-15] MEDS: rifAXIMin 550 MG TABLET PO SCH ×2 (07:59→21:20)
[2022-07-15] MEDS: SPIRONOLACTONE 25 MG TAB PO SCH ×2 (07:59→17:24)
[2022-07-15 08:00] LABS: Albumin Globulin Ratio 0.9 (0.9-2); Albumin Level 2.6 gm/dl (3.4-5.0); BUN Creatinine Ratio 11.2 (10-20); Bilirubin,Total 1.9 mg/dl (0.2-1.0); Calcium 9.4 mg/dl (8.6-10.3); Creatinine Clr Calc Pharmacy 45.5 ml/min; Est GFR (African American) 39.3 ml/min; Est GFR (Non-African American) 33.9 ml/min; Globulin 2.9 gm/dl (2.5-4.0); Magnesium 1.7 mg/dl (1.7-2.4); Potassium 4.1 mmol/L (3.5-5.1); Total Protein 5.5 gm/dl (6.0-8.3)
[2022-07-15] MEDS: CHOLECALCIFEROL 1,000 UNITS 25 MCG TAB PO SCH (08:00)
[2022-07-15 08:05] LABS: Anisocytosis Present
[2022-07-15 08:14] LABS: INR 1.6 (0.9-1.1); Prothrombin Time 16.7 Seconds (9.0-12.0)
[2022-07-15 08:20] LABS: Ferritin 144.5 ng/ml (8-388)
--- NOTE | 2022-07-15 08:47 | Nephrology Progress Note ---
Date of Service July 15, 2022 Assessment & Plan (1) Acute kidney injury superimposed on chronic kidney disease: Plan: * COLLIN due to 3rd spacing of volume and poor renal perfusion - resolved. Renal function is back to baseline * Patient is nonoliguric. Electrolyte balance is acceptable * Net 1100 cc diuresis overnight, net -2 L since admission. Weight reportedly down 6 kg overnight? * Will increase albumin to 25g IV q8 hr as per GI recommendations * Continue Spironolactone 50 mg po BID * Continue Furosemide 20 mg IV BID * Monitor UO, volume status and kidney function (2) CKD (chronic kidney disease), stage III: Plan: * Baseline creatinine 1.5-2.0 mg/dL (3) Anemia: Plan: * Anemia of CKD and history of GAVE/portal gastropathy. No signs of active GI bleeding reported * Aranesp provided in office 07/13/22 * Iron saturation 40%, ferritin 144. No acute indication for IV iron therapy at this time (4) Abdominal pain: Plan: * Etiology unclear. Stool studies have been ordered. Lactulose held due to diarrhea. Diagnostic and therapeutic paracentesis has been ordered by primary service (5) Decompensated hepatic cirrhosis: Plan: * MELD 24. Transplant evaluation has been initiated through [facility]. History of HE, EV, and ascites. No history of SBP. Admission and Anticipated Discharge Date Admission Date: July 13, 2022 Subjective Mr. Quiñonez was evaluated in his hospital room this morning. He reports continued abdominal tenderness, diarrhea and LE swelling. Mr. Quiñonez does report brisk UO and notes that his abdominal distention is mildly improved. Review of Systems Constitutional: no fever Eyes: no problem reported Ear, Nose, Mouth, Throat: no problem reported Respiratory: no cough and no dyspnea Cardiovascular: no chest pain Gastrointestinal: no abdominal pain, no nausea, no vomiting and no diarrhea/loose stools Genitourinary: no hematuria Physical Exam Constitutional: not in distress Eyes: PERRL, conjunctivae normal, anicteric sclerae ENMT: external ear and nose normal, oropharynx normal Neck: trachea midline, no thyromegaly Respiratory: normal respiratory effort, lungs clear to auscultation Cardiovascular: Rate/Rhythm: regular rate and regular rhythm Extremities: + edema (3+ LE swelling) Gastrointestinal (Abdomen): Inspection/Auscultation: + abdomen distended Percussion/Palpation: + abdomen tender and abdomen soft; no guarding Neurologic: Speech / Cognition: normal speech and normal cognition Results & Data Vital Signs (Past 12 Hours) Vital Signs Temp Pulse Pulse Resp BP Pulse Ox O2 Del Method 07/15/22 07:46 36.9 C 96 H 20 94/58 L 97 Room Air 07/15/22 07:01 94 H 07/15/22 04:00 36.7 C 91 H 20 94/55 L 97 Room Air 07/14/22 23:49 96 Room Air 07/14/22 22:00 36.8 C 96 H 18 94/55 L 92 Room Air 07/14/22 22:00 95 H 07/14/22 21:36 Room Air Laboratory Results Laboratory Tests 07/15/22 07/15/22 07:10 07:10 WBC 4.13 L Hgb 7.9 L Hct 23.3 L Plt Count 70 L Sodium 138 Potassium 4.1 Chloride 102 Carbon Dioxide 32 BUN 22 Creatinine 1.97 H Glucose 105 H Calcium 9.4 Magnesium 1.7 Transferrin % Sat 40 Ferritin 144.5 Total Bilirubin 1.9 H AST 29 ALT 10 Alkaline Phosphatase 89 Albumin 2.6 L PG Care Time/CCT Total # of Minutes Spent Total Time Spent with Patient: Total time spent is greater than 50% in coordination of care (as documented) at patient's floor/unit and/or counseling patient: Coding Level of Care Code 83283 SUB INP/OBS CARE 3/50MIN Diagnoses Acute kidney injury superimposed on chronic kidney disease N17.9; N18.9 CKD (chronic kidney disease), stage III N18.3 Anemia D64.9 Abdominal pain R10.9 Decompensated hepatic cirrhosis K72.90; K74.60
[2022-07-15] MEDS: ALBUMIN 25% 25 GM/100 ML VIAL IV SCH ×2 (09:21→17:25)
--- NOTE | 2022-07-15 14:18 | Communication Note ---
Date of Service: July 15, 2022 Continues to diurese, with -1L fluid balance since yest. Sodium remains stable, creat improving. Albumin increased, serum albumin remains in 2s. On abx, a waiting dx tap tomorrow. Nursing notes document 1 loose stool/day No new recs -- cont current care. If diarrhea recurs, I would presume this is from portal colopathy -- can use low doses of cholestyramine if needed, but will need caution to avoid precipitating constipation and HE.
[2022-07-15] MEDS: cefTRIAXone SODIUM 2,000 MG in DEXTROSE 5% 50 ML IV SCH (14:41)
--- NOTE | 2022-07-15 14:53 | Hospitalist Progress Note ---
Date of Service July 15, 2022 Assessment & Plan (1) Anasarca: Plan: Secondary to decompensated liver cirrhosis -Patient has significant abdominal ascites and LE edema, likely a combination of his SERRANO cirrhosis and CKD Appreciate GI and nephrology consultations -MELD-Na score today is down to 21 from 25, giving him a 19.6% 30-day mortality risk -Continue IV albumin, IV Lasix, and increased spironolactone to twice daily -Follow daily weights, strict I's and O's -Plan for paracentesis on Saturday with IR-labs ordered for this -Follow CMP, magnesium, INR (2) Abdominal pain: Plan: -Patient has been having progressive generalized abd pain over the past week, with tenderness on examination. No fevers or leukocytosis -Treating empirically for SBP while awaiting paracentesis on Saturday -CT of the abd/pelvis shows portal venous hypertension, splenomegaly, abd varicosities, and abdominal pelvic ascites, as well as a distended and partially thickened bladder -Has been having non-bloody, foul-smelling, and watery diarrhea, 5-6 episodes daily even while off lactulose since Saturday-none since coming into the hospital- collect stool PCR and C. difficile if has further diarrhea -Continue empiric ceftriaxone daily to cover SBP, UTI -Will consult IR for therapeutic paracentesis on Saturday -Will continue to monitor closely -Follow blood cultures-NGTD (3) 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: Plan: -See anasarca-Lasix, Aldactone, albumin -Continue to hold Lactulose for now with diarrhea, no signs of encephalopathy -Continue rifaximin -[facility] GI consulted -Continue midodrine -He is being evaluated for liver transplant at [facility] in [place], follows with hepatology locally with Dr. Espitia at [facility] GI -With portal hypertensive gastropathy and history of GAVE, esophageal varices, anemia, thrombocytopenia and leukopenia all related to liver cirrhosis MELD score 21 Follow CBC, CMP, INR in the morning -can add cholestyramine for diarrhea which GI reports can be related to portal colopathy, but watch for constipation and HE (4) Acute kidney injury superimposed on chronic kidney disease: Plan: -Cr at 2.38 on admission, baseline appears to be close to 1.9-2.0 -Given albumin on admission and creatinine down to 1.9 -Likely due to being intravascularly depleted with recent increased in diuretic dosing and low albumin, could also be a component of obstruction with his hx of ureteral stricture and possible acute UTI -Appreciate nephrology consultation-continuing with IV albumin along with Lasix and Aldactone -Continue to monitor renal function and electrolytes closely -Avoid nephrotoxic agents (5) Pancytopenia: Plan: Secondary to liver cirrhosis, platelets lower than previous likely due to some hemodilution from IV albumin, similar reduction with WBC and hemoglobin Follow CBC (6) Hyponatremia: Plan: -Noted to be 133 on admission, secondary to cirrhosis and volume overload -Improved up to normal with diuresis -Follow BMP Continued efforts at diuresis and with IV albumin infusions (7) PSVT (paroxysmal supraventricular tachycardia): Plan: -None noted on telemetry -Continue to monitor on tele -Blood pressure is too low for beta-blockers (8) Hypothyroidism: Plan: -Continue levothyroxine TSH was normal in 03/2022 (9) GERD (gastroesophageal reflux disease): Plan: -Continue protonix and carafate (10) Depression: Plan: -Continue paroxetine (11) Diarrhea: Plan: As above, seems to be if related to lactulose but also could be portal colopathy Stool studies and C. diff negative may start cholestyramine if continues (12) Urinary tract infection: Plan: Abnormal urinalysis as above, urine culture mixed organisms Continue ceftriaxone Plan Disposition-continued stay medical floor with telemetry, PT/OT consulted Admission and Anticipated Discharge Date Admission Date: July 15, 2022 Subjective Still having abd pains, 3 loose stools so far today.Appetite is ok but has early satiety. Is ambulating in halls today. Physical Exam Constitutional: WD/WN, vitals as above Neck: trachea midline, no thyromegaly Respiratory: normal respiratory effort; no cough Auscultation: + diminished lung sounds (At the bases bilaterally); no crackles and no wheezes Cardiovascular: Rate/Rhythm: regular rate and regular rhythm Heart Sounds: no murmur Extremities: + edema (4+ pitting edema to the thighs bilaterally) Gastrointestinal (Abdomen): Inspection/Auscultation: + abdomen distended and normal bowel sounds Percussion/Palpation: + abdomen tender (Diffusely without guarding or rebound tenderness) and abdomen soft Neurologic: moves all extremities and awake; no focal motor deficits Psychiatric: A+Ox3, euthymic affect Results & Data Results & Data Vital Signs (Past 12 Hours) Vital Signs Temp Pulse Pulse Resp BP Pulse Ox O2 Del Method 07/15/22 11:31 36.8 C 90 18 118/65 94 Room Air 07/15/22 07:46 36.9 C 96 H 20 94/58 L 97 Room Air 07/15/22 07:01 94 H 07/15/22 04:00 36.7 C 91 H 20 94/55 L 97 Room Air PG Care Time/CCT Total # of Minutes Spent Total Time Spent with Patient: Total time spent is greater than 50% in coordination of care (as documented) at patient's floor/unit and/or counseling patient: Coding Level of Care Code 96459 SUB INP/OBS CARE 2/35MIN Diagnoses Anasarca R60.1 Abdominal pain R10.9 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 K75.81; K74.60 Acute kidney injury superimposed on chronic kidney disease N17.9; N18.9 Pancytopenia D61.818 Hyponatremia E87.1 PSVT (paroxysmal supraventricular tachycardia) I47.1 Hypothyroidism E03.9 GERD (gastroesophageal reflux disease) K21.9 Depression F32.A Diarrhea R19.7 Urinary tract infection N39.0; R31.9 Hematuria presence: with hematuria Urinary tract infection type: site unspecified (12) Urinary tract infection Hematuria presence: with hematuria Urinary tract infection type: site unspecified Qualified Code(s): N39.0 - Urinary tract infection, site not specified; R31.9 - Hematuria, unspecified
[2022-07-15] MEDS: PARoxetine HCL 10 MG TAB PO SCH (21:20)
[2022-07-16] MEDS: ALBUMIN 25% 25 GM/100 ML VIAL IV SCH ×3 (01:41→17:51)
[2022-07-16] MEDS ORDERED: ACETAMINOPHEN 325 MG TAB PO PRN (01:47)
[2022-07-16 07:22] LABS: INR 1.7 (0.9-1.1); Prothrombin Time 18.3 Seconds (9.0-12.0)
[2022-07-16 07:25] LABS: Hematocrit (blood only) 20.3 % (42.0-52.0); Hemoglobin 6.7 g/dl (14.0-18.0); Mean Corpuscular Hemoglobin 35.6 pg (25.0-34.0); Mean Platelet Volume 9.7 fL (9.4-12.4); Platelet Count 47 K/uL (130-400); RDW Coefficient of Variation 19.9 % (11.5-14.5); RDW Standard Deviation 78.3 fL (36.4-46.3); Red Blood Count 1.88 M/uL (4.70-6.10)
[2022-07-16 07:27] LABS: Basophils # (auto) 0.01 K/uL (0-0.2); Basophils % (auto) 0.5 %; Eosinophils % (auto) 4.5 %; Immature Granulocytes # (auto) 0.01 K/uL (0.01-0.20); Immature Granulocytes % (auto) 0.5 %; Lymphocytes # (auto) 0.44 K/uL (1.2-3.4); Macrocytosis Present; Monocytes # (auto) 0.39 K/uL (0.11-0.59); Monocytes % (auto) 17.7 %; Neutrophils # (auto) 1.25 K/uL (1.40-6.50); Neutrophils % (auto) 56.8 %; Ovalocytes 1+; Platelet Estimate Decreased (Normal); Polychromasia 1+
[2022-07-16] MEDS ORDERED: SODIUM CHLORIDE 0.9% 250 ML IV PRN (07:33)
[2022-07-16 07:42] LABS: Albumin Level 2.9 gm/dl (3.4-5.0); Bilirubin,Total 1.6 mg/dl (0.2-1.0); Calcium 9.4 mg/dl (8.6-10.3); Magnesium 1.6 mg/dl (1.7-2.4); Potassium 3.6 mmol/L (3.5-5.1)
[2022-07-16 07:48] LABS: Albumin Globulin Ratio 1.3 (0.9-2); BUN Creatinine Ratio 10.1 (10-20); Creatinine Clr Calc Pharmacy 47.8 ml/min; Est GFR (African American) 41.3 ml/min; Est GFR (Non-African American) 35.7 ml/min; Globulin 2.3 gm/dl (2.5-4.0); Total Protein 5.2 gm/dl (6.0-8.3)
--- NOTE | 2022-07-16 08:34 | Nephrology Progress Note ---
Date of Service July 16, 2022 Assessment & Plan (1) Acute kidney injury superimposed on chronic kidney disease: Plan: * COLLIN due to 3rd spacing of volume and poor renal perfusion - resolved. Renal function is back to baseline * Patient is nonoliguric. Electrolyte balance is acceptable * Net 600 cc diuresis overnight, net -2.6 L since admission * Continue albumin 25g IV q8 hr as per GI recommendations * Continue Spironolactone 50 mg po BID * Will increase Furosemide to 40 mg IV BID to promote 1-2 L diuresis/day * Monitor UO, volume status and kidney function (2) CKD (chronic kidney disease), stage III: Plan: * Baseline creatinine 1.5-2.0 mg/dL (3) Anemia: Plan: * Anemia of CKD and history of GAVE/portal gastropathy. No signs of active GI bleeding reported * Aranesp provided in office 07/13/22 * Iron saturation 40%, ferritin 144. No acute indication for IV iron therapy at this time * Hgb dropped from 7.9 to 6.7 overnight. Patient denies overt blood loss. Recommend blood transfusion to maintain Hgb ~ 8.0 (4) Abdominal pain: Plan: * Etiology unclear. Stool PCR panel is negative. Lactulose held due to diarrhea. Diagnostic and therapeutic paracentesis has been ordered by primary service (5) Decompensated hepatic cirrhosis: Plan: * MELD 24. Transplant evaluation has been initiated through [facility]. History of HE, EV, and ascites. No history of SBP. Admission and Anticipated Discharge Date Admission Date: July 15, 2022 Subjective Mr. Quiñonez was evaluated in his hospital room this morning. He reports continued abdominal tenderness and LE swelling. He denies overt blood loss. Mr. Quiñonez reports brisk UO in response to IV Furosemide therapy Review of Systems Constitutional: no fever Eyes: no problem reported Ear, Nose, Mouth, Throat: no problem reported Respiratory: no cough and no dyspnea Cardiovascular: no chest pain Gastrointestinal: no abdominal pain, no nausea, no vomiting and no diarrhea/loose stools Genitourinary: no hematuria Physical Exam Constitutional: not in distress Eyes: PERRL, conjunctivae normal, anicteric sclerae ENMT: external ear and nose normal, oropharynx normal Neck: trachea midline, no thyromegaly Respiratory: normal respiratory effort, lungs clear to auscultation Cardiovascular: Rate/Rhythm: regular rate and regular rhythm Extremities: + edema (3+ LE swelling) Gastrointestinal (Abdomen): Inspection/Auscultation: + abdomen distended Percussion/Palpation: + abdomen tender and abdomen soft; no guarding Neurologic: Speech / Cognition: normal speech and normal cognition Results & Data Vital Signs (Past 12 Hours) Vital Signs Temp Pulse Pulse Resp BP Pulse Ox O2 Del Method 07/16/22 07:00 85 07/16/22 04:14 37.1 C 86 16 102/57 L 95 Room Air 07/15/22 23:09 37.2 C 86 18 96/55 L 94 Room Air 07/15/22 22:03 90 07/15/22 22:37 Room Air Laboratory Results Laboratory Tests 07/15/22 07/16/22 07/16/22 07:10 06:30 06:30 WBC 2.20 L Hgb 6.7 L* Hct 20.3 L* Plt Count 47 L Sodium 139 Potassium 3.6 Chloride 102 Carbon Dioxide 32 BUN 19 Creatinine 1.89 H Calcium 9.4 Magnesium 1.6 L Transferrin % Sat 40 Ferritin 144.5 Total Bilirubin 1.6 H AST 24 ALT 8 Albumin 2.9 L PG Care Time/CCT Total # of Minutes Spent Total Time Spent with Patient: Total time spent is greater than 50% in coordination of care (as documented) at patient's floor/unit and/or counseling patient: Coding Level of Care Code 08765 SUB INP/OBS CARE 3/50MIN Diagnoses Acute kidney injury superimposed on chronic kidney disease N17.9; N18.9 CKD (chronic kidney disease), stage III N18.3 Anemia D64.9 Abdominal pain R10.9 Decompensated hepatic cirrhosis K72.90; K74.60
[2022-07-16] MEDS: MIDODRINE HCL 2.5 MG TAB PO SCH ×3 (09:01→17:39)
[2022-07-16] MEDS: FUROSEMIDE INJ 20 MG/2 ML VIAL IV SCH ×2 (09:01→17:40)
[2022-07-16] MEDS: SPIRONOLACTONE 25 MG TAB PO SCH ×2 (09:01→17:39)
[2022-07-16] MEDS: VITAMIN B COMPLEX TAB PO SCH (09:02)
[2022-07-16] MEDS: CHOLECALCIFEROL 1,000 UNITS 25 MCG TAB PO SCH (09:02)
[2022-07-16] MEDS: rifAXIMin 550 MG TABLET PO SCH ×2 (09:02→20:01)
[2022-07-16] MEDS: PANTOprazole 40 MG TAB PO SCH ×2 (09:02→20:00)
[2022-07-16] MEDS: SUCRALFATE 1 GM/10 ML UDC PO SCH ×2 (09:03→20:00)
--- NOTE | 2022-07-16 09:25 | Gastroenterology Progress Note ---
Date of Service July 16, 2022 Assessment & Plan (1) Decompensated hepatic cirrhosis: (2) 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: Plan: With fluid overload. (3) Anemia: Plan: Pancytopenia secondary to SERRANO cirrhosis, severe PHG. No gross GI bleeding. Had recent EGD. Plan Appreciate primary hospitalists management of blood transfusion. At this time, no indication for urgent EGD. Will continue to follow EGD, stool outputs. Will watch for paracentesis/fluid analysis results. Appreciate nephrologists management of albumin, diuretics. Admission and Anticipated Discharge Date Admission Date: July 15, 2022 Supervising Physician Co-Signing Physician Notes I performed a history and physical examination of the patient today, including specifically on physical exam - soft abdomen. I have discussed the patient's management with the advanced practitioner. Please refer to the nurse practitioner's note for the documented findings and plan of care. Awaiting Tap today. Subjective 67 yr old male, PMH CKD 3, hypothyroid, psoriatic arthritis. SERRANO cirrhosis (followed by Dr. Espitia in clinic - seen most recent a few wks ago) - admitted for fluid overload w hypotension COLLIN. Also w hx of PHG and Grade I EV, prior hepatic encephalopathy. Awaiting paracentesis this morning. Hb on arrival 8.8, 7.9 yesterday ->6.7 today. Receiving 1 u pRBCs. Most recent EGD Feb 2022 Grade I EV, Severe PHG (not treated). No gross GI bleeding, passing brown loose BMs and BUN normal at 19. Awake, alert, hemodynamically stable. Ascites/edema improved. Diuretics just increased to furosemide 40BID and Spironolactone 50 BID (managed by nephrology, spoke w Dr. Herrera this morning). MELD 20. Review of Systems Review of Systems: ROS: Gen: + weakness - improved; no fevers. No confusion. Eyes: No eye redness, or pain, no recent vision changes Resp: No SOB, no cough Cardio: No palpitations/irregular beats, no chest pain GI: Abd discomfort from fullness of ascites, otherwise no abd pain, no nausea/vomiting, denies blood in BMs. : Denies pain on urination Skin: No jaundice, itching or new rashes Ext: Bilat lower leg edema improving, less painful (fullness/pressure from edema). Physical Exam Constitutional: WD/WN, vitals as above Eyes: PERRL, conjunctivae normal, anicteric sclerae ENMT: external ear and nose normal, oropharynx normal Neck: trachea midline, no thyromegaly Respiratory: normal respiratory effort, lungs clear to auscultation Cardiovascular: Rate/Rhythm: regular rate and regular rhythm Heart Sounds: no murmur Extremities: + edema (2+ lower leg edema) Gastrointestinal (Abdomen): Inspection/Auscultation: + abdomen distended (moderate/non tense ascites, mild diffuse tenderness on palpation) Percussion/Palpation: abdomen soft Skin: slight redness of anterior lower leg skin. Neurologic: PERRL, EOMI, accommodation nl, no face palsy, no dysarthria Psychiatric: A+Ox3, euthymic affect (no asterixes) Results & Data Vital Signs (Past 12 Hours) Vital Signs Temp Pulse Pulse Resp BP Pulse Ox O2 Del Method 07/16/22 08:37 36.7 C 88 18 150/81 H 94 Room Air 07/16/22 07:00 85 07/16/22 04:14 37.1 C 86 16 102/57 L 95 Room Air 07/15/22 23:09 37.2 C 86 18 96/55 L 94 Room Air 07/15/22 22:03 90 07/15/22 22:37 Room Air Laboratory Results WBC 2.2, Hb 6.7, Hct 20.3, Plts 47, PT 18, INR 1.7, Cr 1.97 Diagnostic Findings non contrast CTAP 07/13/22: 1. Cirrhosis with stigmata of portal venous hypertension including splenomegaly with abdominal varicosities and abdominal pelvic ascites. 2. No bowel obstruction or pneumoperitoneum. 3. Nonobstructing bilateral nephrolithiasis. 4. Urinary bladder wall thickening with partial distention. Correlate with urin alysis to exclude cystitis. 5. Additional findings as above. CXR 07/13/22: No pleural effusions. No acute process.
--- NOTE | 2022-07-16 11:11 | Hospitalist Progress Note ---
Date of Service July 16, 2022 Assessment & Plan (1) Anasarca: Plan: Secondary to decompensated liver cirrhosis -Patient has significant abdominal ascites and LE edema, likely a combination of his SERRANO cirrhosis and CKD Appreciate GI and nephrology consultations -MELD-Na score now down to 21 from 25, giving him a 19.6% 30-day mortality risk -Continue IV albumin, IV Lasix, and increased spironolactone to twice daily -Follow daily weights, strict I's and O's-weight down 4kg and I/O net -2.4L thus far -Plan for paracentesis with IR-labs ordered for this--> delay till Saturday now due to need for PRBC transfusion on Saturday and risk of bleeding -Follow CBC, CMP, magnesium, INR in AM (2) Abdominal pain: Plan: -Patient has been having progressive generalized abd pain over the past week, with tenderness on examination. No fevers or leukocytosis -Treating empirically for SBP while awaiting paracentesis -now delayed till Saturday -CT of the abd/pelvis shows portal venous hypertension, splenomegaly, abd varicosities, and abdominal pelvic ascites, as well as a distended and partially thickened bladder -Has been having non-bloody, foul-smelling, and watery diarrhea, 5-6 episodes daily even while off lactulose since Saturday-none since coming into the hospital- stool PCR and C. difficile both NEGATIVE -Continue empiric ceftriaxone daily to cover SBP, UTI -consult IR for therapeutic paracentesis -now planned for Saturday -Will continue to monitor closely -Follow blood cultures-NGTD, Ur cx negative (3) 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: Plan: -See anasarca-continue Lasix, Aldactone, albumin -Continue to hold Lactulose for now with diarrhea, no signs of encephalopathy -Continue rifaximin -[facility] consulted -Continue midodrine -He is being evaluated for liver transplant at [facility] in [place], follows with hepatology locally with Dr. Espitia at [facility] -With portal hypertensive gastropathy and history of GAVE, esophageal varices, anemia, thrombocytopenia and leukopenia all related to liver cirrhosis MELD score 21 Follow CBC, CMP, INR in the morning -will now add cholestyramine 4 gm once daily for diarrhea as per GI recommendation as GI reports can be related to portal colopathy, but watch for constipation and HE if reduction in BMs (4) Acute kidney injury superimposed on chronic kidney disease: Plan: -Cr at 2.38 on admission, baseline appears to be close to 1.9-2.0 -Given albumin on admission and creatinine down to 1.8-1.9 -Likely due to being intravascularly depleted with recent increased in diuretic dosing and low albumin, could also be a component of obstruction with his hx of ureteral stricture and possible acute UTI although he is voiding without difficulty -Appreciate nephrology consultation-continuing with IV albumin along with Lasix and Aldactone -Continue to monitor renal function and electrolytes closely -Avoid nephrotoxic agents (5) Pancytopenia: Plan: Secondary to liver cirrhosis, platelets lower than previous likely due to some hemodilution from IV albumin, similar reduction with WBC and hemoglobin Anemia--> hgb worsening today down to 6.7. Transferrin sat here is normal at 40%. Recent B12 and folate normal in 05/2022 TSH normal at 4.1 in 03/2022 Likely due to ongoing slow occult GI bleeding from known GAVE and portal gastropathy -transfuse 1 unit PRBCs on 07/16-consent obtained Follow CBC (6) Hyponatremia: Plan: -Noted to be 133 on admission, secondary to cirrhosis and volume overload -Improved up to normal with diuresis -Follow BMP -Continued efforts at diuresis and with IV albumin infusions (7) PSVT (paroxysmal supraventricular tachycardia): Plan: -None noted on telemetry, having some frequent PVCs -Continue to monitor on tele -Blood pressure is too low for beta-blockers historically (8) Hypothyroidism: Plan: -Continue levothyroxine TSH was normal in 03/2022 (9) GERD (gastroesophageal reflux disease): Plan: -Continue protonix and carafate (10) Depression: Plan: no acute issues -Continue paroxetine (11) Diarrhea: Plan: As above, seems to be if related to lactulose but also could be portal colopathy Stool studies and C. diff negative - start cholestyramine once daily (12) Urinary tract infection: Plan: Abnormal urinalysis as above, urine culture mixed organisms Continue ceftriaxone empirically anyway for SBP and UTI Plan Disposition-continued stay medical floor with telemetry, PT/OT consulted. 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 No nausea but low appetite. Abd pain hurts with eating and palpation. No fevers. Tele with NSR, PVCs, rates 80s Physical Exam Constitutional: WD/WN, vitals as above Neck: trachea midline, no thyromegaly Respiratory: normal respiratory effort; no cough Auscultation: + diminished lung sounds (At the bases bilaterally); no crackles and no wheezes Cardiovascular: Rate/Rhythm: regular rate and regular rhythm Heart Sounds: no murmur Extremities: + edema (4+ pitting edema to the thighs bilaterally) Gastrointestinal (Abdomen): Inspection/Auscultation: + abdomen distended and normal bowel sounds Percussion/Palpation: + abdomen tender (Diffusely without guarding or rebound tenderness) and abdomen soft Neurologic: moves all extremities and awake; no focal motor deficits Psychiatric: A+Ox3, euthymic affect Results & Data Results & Data Vital Signs (Past 12 Hours) Vital Signs Temp Pulse Pulse Resp BP Pulse Ox O2 Del Method 07/16/22 09:18 Room Air 07/16/22 08:37 36.7 C 88 18 150/81 H 94 Room Air 07/16/22 07:00 85 07/16/22 04:14 37.1 C 86 16 102/57 L 95 Room Air Laboratory Results CBC, CMP, magnesium reviewed PG Care Time/CCT Total # of Minutes Spent Total Time Spent with Patient: Total time spent is greater than 50% in coordination of care (as documented) at patient's floor/unit and/or counseling patient: Coding Level of Care Code 45255 SUB INP/OBS CARE 3/50MIN Diagnoses Anasarca R60.1 Abdominal pain R10.9 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 K75.81; K74.60 Acute kidney injury superimposed on chronic kidney disease N17.9; N18.9 Pancytopenia D61.818 Hyponatremia E87.1 PSVT (paroxysmal supraventricular tachycardia) I47.1 Hypothyroidism E03.9 GERD (gastroesophageal reflux disease) K21.9 Depression F32.A Diarrhea R19.7 Urinary tract infection N39.0; R31.9 Hematuria presence: with hematuria Urinary tract infection type: site unspecified (12) Urinary tract infection Hematuria presence: with hematuria Urinary tract infection type: site unspecified Qualified Code(s): N39.0 - Urinary tract infection, site not spec ified; R31.9 - Hematuria, unspecified
[2022-07-16] MEDS: MAGNESIUM SULFATE / D5W 1 GM/100 ML BAG IV SCH ×2 (11:23→13:05)
[2022-07-16] MEDS: CHOLESTYRAMINE LIGHT 4 GM PKT PO SCH (12:12)
[2022-07-16] MEDS: cefTRIAXone SODIUM 2,000 MG in DEXTROSE 5% 50 ML IV SCH (15:08)
[2022-07-16 17:22] LABS: Hematocrit (blood only) 25.3 % (42.0-52.0); Hemoglobin 8.3 g/dl (14.0-18.0); Mean Corpuscular Hemoglobin 35.8 pg (25.0-34.0); Mean Corpuscular Hgb Conc 32.8 g/dL (32.0-36.0); Mean Corpuscular Volume 109.1 fL (80.0-100.0); Mean Platelet Volume 8.7 fL (9.4-12.4); Platelet Count 64 K/uL (130-400); RDW Standard Deviation 79.9 fL (36.4-46.3); Red Blood Count 2.32 M/uL (4.70-6.10); White Blood Count 3.72 K/ul (4.8-10.8)
[2022-07-16] MEDS: PARoxetine HCL 10 MG TAB PO SCH (20:01)
[2022-07-17] MEDS: ALBUMIN 25% 25 GM/100 ML VIAL IV SCH ×3 (00:43→17:11)
[2022-07-17] MEDS ORDERED: ONDANSETRON INJ 2 MG/ML 2 ML VIAL IV PRN (02:37)
[2022-07-17] MEDS ORDERED: ONDANSETRON INJ 2 MG/ML 2 ML VIAL ONE (03:12)
[2022-07-17 07:03] LABS: Hematocrit (blood only) 22.4 % (42.0-52.0); Hemoglobin 7.4 g/dl (14.0-18.0); Mean Corpuscular Hemoglobin 36.1 pg (25.0-34.0); Mean Corpuscular Volume 109.3 fL (80.0-100.0); Mean Platelet Volume 9.8 fL (9.4-12.4); Platelet Count 49 K/uL (130-400); RDW Coefficient of Variation 20.2 % (11.5-14.5); RDW Standard Deviation 81.1 fL (36.4-46.3); Red Blood Count 2.05 M/uL (4.70-6.10); White Blood Count 2.74 K/ul (4.8-10.8)
[2022-07-17 07:39] LABS: INR 1.8 (0.9-1.1); Prothrombin Time 19.2 Seconds (9.0-12.0)
[2022-07-17 07:47] LABS: Albumin Level 3.3 gm/dl (3.4-5.0); BUN Creatinine Ratio 9.9 (10-20); Bilirubin,Total 2.4 mg/dl (0.2-1.0); Calcium 9.6 mg/dl (8.6-10.3); Creatinine Clr Calc Pharmacy 48.8 ml/min; Est GFR (African American) 43.3 ml/min; Est GFR (Non-African American) 37.3 ml/min; Magnesium 1.9 mg/dl (1.7-2.4); Potassium 3.5 mmol/L (3.5-5.1); Total Protein 5.5 gm/dl (6.0-8.3)
--- NOTE | 2022-07-17 08:29 | Nephrology Progress Note ---
Date of Service July 17, 2022 Assessment & Plan (1) Acute kidney injury superimposed on chronic kidney disease: Plan: * COLLIN due to 3rd spacing of volume and poor renal perfusion - resolved. Renal function is back to baseline * Patient is nonoliguric. Electrolyte balance is acceptable * Net 413 cc diuresis overnight, net -2.6 L since admission * Continue albumin 25g IV q8 hr as per GI recommendations * Continue Spironolactone 50 mg po BID * Will increase Furosemide to 40 mg IV TID to promote 1-2 L diuresis/day * Monitor UO, volume status and kidney function (2) CKD (chronic kidney disease), stage III: Plan: * Baseline creatinine 1.5-2.0 mg/dL (3) Anemia: Plan: * Anemia of CKD and history of GAVE/portal gastropathy. No signs of active GI bleeding reported * Aranesp provided in office 07/13/22 * Iron saturation 40%, ferritin 144. No acute indication for IV iron therapy at this time * Hgb dropped from 8.3 to 7.4 overnight. Patient denies overt blood loss. Primary service has ordered 1 unit PRBC this am (4) Abdominal pain: Plan: * Etiology unclear. Stool PCR panel is negative. Lactulose held due to diarrhea * Patient reports diagnostic/therapeutic paracentesis completed this am * Peritoneal fluid culture is pending (5) Decompensated hepatic cirrhosis: Plan: * Transplant evaluation has been initiated through [facility]. History of HE, EV, and ascites. No prior history of SBP. Admission and Anticipated Discharge Date Admission Date: July 15, 2022 Subjective Mr. Quiñonez was evaluated in his hospital room this morning. He reports continued abdominal tenderness and LE swelling. He denies overt blood loss. Mr. Quiñonez reports brisk UO in response to IV Furosemide therapy Review of Systems Constitutional: no fever Eyes: no problem reported Ear, Nose, Mouth, Throat: no problem reported Respiratory: no cough and no dyspnea Cardiovascular: no chest pain Gastrointestinal: no abdominal pain, no nausea, no vomiting and no diarrhea/loose stools Genitourinary: no hematuria Physical Exam Constitutional: not in distress Eyes: PERRL, conjunctivae normal, anicteric sclerae ENMT: external ear and nose normal, oropharynx normal Neck: trachea midline, no thyromegaly Respiratory: normal respiratory effort, lungs clear to auscultation Cardiovascular: Rate/Rhythm: regular rate and regular rhythm Extremities: + edema (3+ LE swelling) Gastrointestinal (Abdomen): Inspection/Auscultation: + abdomen distended Percussion/Palpation: + abdomen tender and abdomen soft; no guarding Neurologic: Speech / Cognition: normal speech and normal cognition Results & Data Vital Signs (Past 12 Hours) Vital Signs Temp Pulse Pulse Resp BP Pulse Ox O2 Del Method 07/17/22 07:39 36.7 C 95 H 20 92/56 L 95 Room Air 07/17/22 07:00 90 07/17/22 04:26 36.6 C 90 18 92/54 L 96 Room Air 07/16/22 22:00 96 H 07/16/22 23:34 36.9 C 100 H 18 98/52 L 95 Room Air 07/16/22 21:32 Room Air Laboratory Results Laboratory Tests 07/17/22 07/17/22 05:59 05:59 WBC 2.74 L Hgb 7.4 L Hct 22.4 L Plt Count 49 L Sodium 139 Potassium 3.5 Chloride 101 Carbon Dioxide 32 BUN 18 Creatinine 1.82 H Glucose 122 H Total Bilirubin 2.4 H AST 20 ALT 7 Albumin 3.3 L PG Care Time/CCT Total # of Minutes Spent Total Time Spent with Patient: Total time spent is greater than 50% in coordination of care (as documented) at patient's floor/unit and/or counseling patient: Coding Level of Care Code 50589 SUB INP/OBS CARE 3/50MIN Diagnoses Acute kidney injury superimposed on chronic kidney disease N17.9; N18.9 CKD (chronic kidney disease), stage III N18.3 Anemia D64.9 Abdominal pain R10.9 Decompensated hepatic cirrhosis K72.90; K74.60
[2022-07-17] MEDS: SUCRALFATE 1 GM/10 ML UDC PO SCH ×3 (08:44→21:05)
[2022-07-17] MEDS: MIDODRINE HCL 2.5 MG TAB PO SCH ×3 (08:46→16:58)
[2022-07-17] MEDS: PANTOprazole 40 MG TAB PO SCH (08:47)
[2022-07-17] MEDS: SPIRONOLACTONE 25 MG TAB PO SCH ×2 (08:47→18:21)
[2022-07-17] MEDS: rifAXIMin 550 MG TABLET PO SCH ×2 (08:47→21:05)
[2022-07-17] MEDS: VITAMIN B COMPLEX TAB PO SCH (08:48)
[2022-07-17] MEDS: CHOLECALCIFEROL 1,000 UNITS 25 MCG TAB PO SCH (08:48)
[2022-07-17] MEDS: CHOLESTYRAMINE LIGHT 4 GM PKT PO SCH (08:48)
[2022-07-17] MEDS ORDERED: SODIUM CHLORIDE 0.9% 250 ML IV PRN (09:23)
[2022-07-17] MEDS: FUROSEMIDE INJ 20 MG/2 ML VIAL IV SCH ×3 (10:20→20:32)
[2022-07-17 11:13] LABS: Appearance Peritoneal Fluid Hazy; Color Peritoneal Fluid Yellow; RBC Peritoneal Fluid Auto 2000 /uL; WBC Peritoneal Fluid Auto 331 /ul (0-300)
[2022-07-17 12:05] LABS: Albumin Peritoneal Fluid < 1.5 gm/dl
[2022-07-17 12:11] LABS: Glucose Peritoneal Fluid 142 mg/dl; LDH Peritoneal Fluid 52 U/L; Total Protein Peritoneal Fluid < 3.0 gm/dl
[2022-07-17 12:27] LABS: Eosinophils, Fluid 1 %; Lymphocytes, Fluid 30 %; Mono,Macrophage,Mesothelial 63 %; Neutrophils, Fluid 6 %
--- NOTE | 2022-07-17 12:52 | Ultrasound Report ---
Ultrasound guided paracentesis INDICATION: Ascites PROCEDURE: Procedure and risks were explained. Informed consent was obtained. A final timeout was com pleted. The left lower quadrant was prepped and draped in sterile fashion. 1% buffered lidocaine was utilized for skin anesthesia. Utilizing ultrasound guidance, a 5 [place] safety centesis catheter was advanced into the pocket of jaskaran fuentes. Ultrasound images were obtained. 2700 mL of yellow fluid was removed with 1 L sent to lab for analysis. The catheter was removed and Band-Aid applied. The patient tolerated the procedure well. Vi eliel signs will be monitored postprocedure. IMPRESSION: Paracentesis as above. Performed, dictated, and signed by Jose Elias Roemro PA-C; to be co-signed by Dr. Joaquín Bolden. Electronically signed by: Joaquín Bolden M.D. 07/17/2022 2:27 PM
[2022-07-17] MEDS: cefTRIAXone SODIUM 2,000 MG in DEXTROSE 5% 50 ML IV SCH (14:31)
--- NOTE | 2022-07-17 14:49 | Hospitalist Progress Note ---
Date of Service July 17, 2022 Assessment & Plan (1) Upper GI bleeding: Plan: Suspected - he is passing melena stools. Multiple potential causes - esophagitis, varices, gastritis, portal gastropathy, PUD, etc. Cont transfusional support - give another unit of PRBCs today. [facility] have seen - plan for EGD tomorrow. Placed on PPI drip and Octreotide drip (latter in the event this is variceal). NPO after MN tonight. Serial CBCs. (2) Acute blood loss anemia: Plan: 2nd to #1. Tx 1 unit PRBCs this am for Hb <7.5. Repeat H/H this afternoon with nice response to the blood (Hb 8.5). CBC in am. (3) Anasarca: Plan: Secondary to decompensated liver cirrhosis Cirrhosis is 2nd to SERRANO He is followed by Dr Espitia - Hepatology - at [facility] in [place] Appreciate [facility] consultation here as well as [facility] [place] Nephrology assistance for diuretic management Current MELD is 22 today remains on IV albumin TID, IV lasix TID, aldactone BID paracentesis today - 2.7 liters of fluid obtained - cell counts not c/w SBP remains on midodrine if BPs remain low increase to 10mg TID see below re: bleeding, etc (4) Abdominal pain: Plan: cell counts from paracentesis today not c/w SBP his pain is mainly epigastric -- due to portal gastropathy? previous EGDs with such PUD? other? recent lipase wnl plan - * due to likely upper GI bleeding octreotide drip and PPI drip started by [facility] this afternoon * increase carafate to QID dosing * NPO after MN tonight for EGD tomorrow * serial CBCs and transfuse if needed diarrhea - stool BioFire negative (5) 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: Plan: advanced liver disease MELD 22 Decompensation/volume overload -- continue Lasix, Aldactone, albumin IV Continue to hold Lactulose 2nd diarrhea but continue rifaximin BID Fortunately no signs of hepatic encephalopathy If BPs cont to remain low or low normal increase midodrine to 10mg TID Again follows with [facility] in [place] - Dr. Espitia Previous EGDs with portal hypertensive gastropathy, esophageal varices, etc. NPO after MN tonight for EGD tomorrow (6) Acute kidney injury superimposed on chronic kidney disease: Plan: Cr at 2.38 on admission, baseline appears to be close to 1.9-2.0 CrCl at baseline 40s Cr 1.8 today appreciate nephrology assistance with diuretics, etc BMP am (7) Pancytopenia: Plan: Secondary to liver cirrhosis Acute on chronic anemia - acute component is due to blood loss, likely upper GI bleeding (see below) Follow CBC daily (8) Hyponatremia: Plan: Normal at 139 today was 133 at admission 2nd to volume overload from decompensated cirrhosis (9) PSVT (paroxysmal supraventricular tachycardia): Plan: h/o tele overnight wnl (10) Hypothyroidism: Plan: Continue levothyroxine TSH was normal in 03/2022 (11) GERD (gastroesophageal reflux disease): Plan: Continue protonix (changed to drip) and carafate (increased to QID dosing) (12) Depression: Plan: Continue paroxetine (13) Diarrhea: Plan: Stool studies and C. diff negative Started cholestyramine once daily by [facility] etiology? portal colopathy? pancreatic insufficiency? (pancreatic atrophy noted on CT) other? (14) Urinary tract infection: Plan: suspected, but urine cx negative will be on rocephin for prophylaxis in the midst of GI bleeding so urinary tract will be covered regardless Plan son updated at bedside care d/w [facility] Ms Tobi Doty appreciate their assistance complex care coordination Admission and Anticipated Discharge Date Admission Date: July 15, 2022 Subjective saw patient following his paracentesis his abd distension and breathing are improved following such he continues to have epigastric abd pain, however additionally he had dark, melena stools all day yesterday and again this am now the stools are "green" in color denies vomiting but did have nausea early in the day son at bedside updated extensively patient tolerated the PRBCs given this am denies any orthopnea or dyspnea tele overnight - wnl Review of Systems Review of Systems: gen - fatigued, appetite is poor cv - no orthopnea, no chest pain; continues with edema of legs GI - ongoing pain; no hematemesis pulm - no cough Physical Exam Physical Exam: gen - NAD, lying comfortably in bed skin - pallor, no rash mouth - MMM neck - no JVD heart - RRR, s1 s2 lungs - CTA b/l abd - soft, tender epigastric region, BS+, no hepatomegaly, likely palpable spleen; paracentesis site covered with band-aid - no leakage of ascitic fluid ext - severe edema of legs from feet to thighs, 2-3+ b/l; pulses 2+ b/l psych - a/o x 3 Results & Data Results & Data Vital Signs (Past 12 Hours) Vital Signs Temp Pulse Pulse Resp BP BP Pulse Ox 07/17/22 13:12 36.5 C 87 19 119/76 97 07/17/22 12:12 36.6 C 87 20 103/63 97 07/17/22 11:12 36.6 C 92 H 18 127/70 98 07/17/22 10:42 36.7 C 86 19 110/70 97 07/17/22 10:27 36.7 C 87 18 132/73 98 07/17/22 11:02 36.5 C 90 20 110/70 97 07/17/22 10:12 36.7 C 87 18 132/73 98 07/17/22 08:55 07/17/22 07:39 36.7 C 95 H 20 92/56 L 95 07/17/22 07:00 90 07/17/22 04:26 36.6 C 90 18 92/54 L 96 O2 Del Method 07/17/22 13:12 07/17/22 12:12 07/17/22 11:12 07/17/22 10:42 07/17/22 10:27 07/17/22 11:02 Room Air 07/17/22 10:12 07/17/22 08:55 Room Air 07/17/22 07:39 Room Air 07/17/22 07:00 07/17/22 04:26 Room Air Laboratory Results Laboratory Results - last 24 hr 07/16/22 07/17/22 07/17/22 07:56 05:59 05:59 WBC 2.74 L RBC 2.05 L Hgb 7.4 L Hct 22.4 L MCV 109.3 H MCH 36.1 H MCHC 33.0 RDW Std Deviation 81.1 H RDW Coeff of Miguel 20.2 H Plt Count 49 L MPV 9.8 PT INR Sodium 139 Potassium 3.5 Chloride 101 Carbon Dioxide 32 Anion Gap 6 BUN 18 Creatinine 1.82 H Est Cr Clr Drug Dosing 48.8 Est GFR ( Amer) 43.3 Est GFR (Non-Af Amer) 37.3 BUN/Creatinine Ratio 9.9 L Glucose 122 H Calcium 9.6 Magnesium 1.9 Total Bilirubin 2.4 H Direct Bilirubin 1.0 H AST 20 ALT 7 Alkaline Phosphatase 63 Total Protein 5.5 L Albumin 3.3 L Fluid Neutrophils % Fluid Lymphocytes % Fluid Eosinophils % Fluid Meso/Macro/Stone % Fluid Comment Peritoneal Color Peritoneal Appearance Peritoneal WBC (Auto) Peritoneal RBC (Auto) Peritoneal Tot Protein Peritoneal Albumin Peritoneal LDH Peritoneal Glucose Blood Type O Positive Antibody Screen NEGATIVE Crossmatch See Detail 07/17/22 07/17/22 07/17/22 05:59 15:12 Unknown WBC RBC Hgb 8.5 L Hct 25.6 L MCV MCH MCHC RDW Std Deviation RDW Coeff of Miguel Plt Count MPV PT 19.2 H INR 1.8 H Sodium Potassium Chloride Carbon Dioxide Anion Gap BUN Creatinine Est Cr Clr Drug Dosing Est GFR ( Amer) Est GFR (Non-Af Amer) BUN/Creatinine Ratio Glucose Calcium Magnesium Total Bilirubin Direct Bilirubin AST ALT Alkaline Phosphatase Total Protein Albumin Fluid Neutrophils % 6 Fluid Lymphocytes % 30 Fluid Eosinophils % 1 Fluid Meso/Macro/Stone % 63 Fluid Comment Peritoneal Color Yellow Peritoneal Appearance Hazy Peritoneal WBC (Auto) 331 H Peritoneal RBC (Auto) 2000 Peritoneal Tot Protein Peritoneal Albumin Peritoneal LDH Peritoneal Glucose Blood Type Antibody Screen Crossmatch 07/17/22 Unknown WBC RBC Hgb Hct MCV MCH MCHC RDW Std Deviation RDW Coeff of Miguel Plt Count MPV PT INR Sodium Potassium Chloride Carbon Dioxide Anion Gap BUN Creatinine Est Cr Clr Drug Dosing Est GFR ( Amer) Est GFR (Non-Af Amer) BUN/Creatinine Ratio Glucose Calcium Magnesium Total Bilirubin Direct Bilirubin AST ALT Alkaline Phosphatase Total Protein Albumin Fluid Neutrophils % Fluid Lymphocytes % Fluid Eosinophils % Fluid Meso/Macro/Stone % Fluid Comment Peritoneal Color Peritoneal Appearance Peritoneal WBC (Auto) Peritoneal RBC (Auto) Peritoneal Tot Protein < 3.0 Peritoneal Albumin < 1.5 Peritoneal LDH 52 Peritoneal Glucose 142 Blood Type Antibody Screen Crossmatch PG Care Time/CCT Total # of Minutes Spent Total Time Spent with Patient: Total time spent is greater than 50% in coordination of care (as documented) at patient's floor/unit and/or counseling patient: Coding Level of Care Code 93051 SUB INP/OBS CARE 3/50MIN Diagnoses Upper GI bleeding K92.2 Acute blood loss anemia D62 Anasarca R60.1 Abdominal pain R10.9 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 K75.81; K74.60 Acute kidney injury superimposed on chronic kidney disease N17.9; N18.9 Pancytopenia D61.818 Hyponatremia E87.1 PSVT (paroxysmal supraventricular tachycardia) I47.1 Hypothyroidism E03.9 GERD (gastroesophageal reflux disease) K21.9 Depression F32.A Diarrhea R19.7 Urinary tract infection N39.0; R31.9 Hematuria presence: with hematuria Urinary tract infection type: site unspecified (14) Urinary tract infection Hematuria presence: with hematuria Urinary tract infection type: site unspecified Qualified Code(s): N39.0 - Urinary tract infection, site not specified; R31.9 - Hematuria, unspecified
[2022-07-17 15:31] LABS: Hematocrit (blood only) 25.6 % (42.0-52.0); Hemoglobin 8.5 g/dl (14.0-18.0)
[2022-07-17] MEDS ORDERED: STAT IV STA (15:54)
[2022-07-17] MEDS ORDERED: OCTREOTIDE ACETATE 50 MCG in SYRINGE 9.5 ML IV STA (15:59)
[2022-07-17] MEDS ORDERED: PANTOprazole 40 MG in SYRINGE 0 ML IV ONE (16:00)
[2022-07-17] MEDS: OCTREOTIDE ACETATE 500 MCG in DEXTROSE 5% 100 ML IV SCH (16:58)
[2022-07-17] MEDS: PANTOprazole 40 MG in DEXTROSE 5% 100 ML IV SCH ×2 (17:00→22:39)
--- NOTE | 2022-07-17 19:23 | Gastroenterology Progress Note ---
Date of Service July 17, 2022 Assessment & Plan (1) Decompensated hepatic cirrhosis: (2) GAVE (gastric antral vascular ectasia): (3) 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: (4) Portal hypertensive gastropathy: (5) Anemia: (6) Melena: Plan 1. PPI and Octreotide boluses and drips. 2. Continue antibiotics. 3. Monitor outputs. 4. No evidence of SBP. 5. Plan for EGD tomorrow. Admission and Anticipated Discharge Date Admission Date: July 15, 2022 Supervising Physician Co-Signing Physician Notes I performed a history and physical examination of the patient today, including specifically on physical exam - soft abdomen. I have discussed the patient's management with the advanced practitioner. Please refer to the nurse practit judson's note for the documented findings and plan of care. EGD Patient was explained in detail regarding risks, benefits, limitations and alternatives of the above endoscopic procedure. Risks of intravenous sedation used for procedure were also explained. Risks include, but not limited to perforation, bleeding, infection, respiratory distress, cardiac arrest and . Patient is also aware about the possibility of missed lesion. Patient's questions were answered. The patient verbalized understanding the information and agreed to undergo the procedure. Subjective Black loose/liquid BMs since yesterday morning. Received a unit of RBCs yesterday and Hb responded but back down today and given another unit. Has remained otherwise hemodynamically stable. Tap today w removal of 2.7L, 331 WBCs, 2000RBC, 6% neutrophils - not suggestive of SBP. Cr 1.8 today. BUN normal at 18. Review of Systems Review of Systems: ROS: Gen: + weakness - improved; no fevers. No confusion. Eyes: No eye redness, or pain, no recent vision changes Resp: No SOB, no cough Cardio: No palpitations/irregular beats, no chest pain GI: Abd discomfort from fullness of ascites, otherwise no abd pain, no nausea/vomiting, denies blood in BMs. : Denies pain on urination Skin: + mild jaunce, No itching or new rashes Ext: Bilat lower leg edema improving, less painful (fullness/pressure from edema). Physical Exam Constitutional: WD/WN, vitals as above Eyes: PERRL, conjunctivae normal, anicteric sclerae ENMT: external ear and nose normal, oropharynx normal Neck: trachea midline, no thyromegaly Respiratory: normal respiratory effort, lungs clear to auscultation Cardiovascular: Rate/Rhythm: regular rate and regular rhythm Heart Sounds: no murmur Extremities: + edema (2+ lower leg edema) Gastrointestinal (Abdomen): Inspection/Auscultation: + abdomen distended (mild/non tense ascites, mild diffuse tenderness on palpation - improved) Percussion/Palpation: abdomen soft Neurologic: PERRL, EOMI, accommodation nl, no face palsy, no dysarthria Psychiatric: A+Ox3, euthymic affect (no asterixes) Results & Data Vital Signs (Past 12 Hours) Vital Signs Temp Pulse Pulse Resp BP BP Pulse Ox 07/17/22 14:14 93 H 07/17/22 15:18 36.7 C 88 16 121/65 97 07/17/22 13:12 36.5 C 87 19 119/76 97 07/17/22 12:12 36.6 C 87 20 103/63 97 07/17/22 11:12 36.6 C 92 H 18 127/70 98 07/17/22 10:42 36.7 C 86 19 110/70 97 07/17/22 10:27 36.7 C 87 18 132/73 98 07/17/22 11:02 36.5 C 90 20 110/70 97 07/17/22 10:12 36.7 C 87 18 132/73 98 07/17/22 08:55 07/17/22 07:39 36.7 C 95 H 20 92/56 L 95 O2 Del Method 07/17/22 14:14 07/17/22 15:18 Room Air 07/17/22 13:12 07/17/22 12:12 07/17/22 11:12 07/17/22 10:42 07/17/22 10:27 07/17/22 11:02 Room Air 07/17/22 10:12 07/17/22 08:55 Room Air 07/17/22 07:39 Room Air Laboratory Results WBC 2.72, Hb 8.5, Hct 25.6, Plts 49, PT 19, INR 1.8, Na 139, K 3.5, Cl 101, Co2 32, BUN 18, Cr 1.82, Diagnostic Findings US today: 1. Interval development of interstitial thickening and mild right lung airspace opacities. This favors pulmonary edema. An infectious process could appear similar. 2. Tip of nasogastric tube projects over the body of the stomach. The tube could be advanced before obtaining a KUB.
[2022-07-17] MEDS: PARoxetine HCL 10 MG TAB PO SCH (21:05)
[2022-07-18] MEDS: OCTREOTIDE ACETATE 500 MCG in DEXTROSE 5% 100 ML IV SCH ×2 (01:10→13:24)
[2022-07-18] MEDS: ALBUMIN 25% 25 GM/100 ML VIAL IV SCH ×3 (01:44→16:28)
[2022-07-18] MEDS: PANTOprazole 40 MG in DEXTROSE 5% 100 ML IV SCH ×2 (06:19→13:24)
[2022-07-18 08:00] LABS: Hematocrit (blood only) 24.1 % (42.0-52.0); Mean Corpuscular Hemoglobin 35.6 pg (25.0-34.0); Mean Corpuscular Hgb Conc 33.2 g/dL (32.0-36.0); Mean Corpuscular Volume 107.1 fL (80.0-100.0); Mean Platelet Volume 9.7 fL (9.4-12.4); Platelet Count 42 K/uL (130-400); RDW Coefficient of Variation 21.2 % (11.5-14.5); RDW Standard Deviation 81.9 fL (36.4-46.3); Red Blood Count 2.25 M/uL (4.70-6.10); White Blood Count 2.83 K/ul (4.8-10.8)
[2022-07-18] MEDS: SPIRONOLACTONE 25 MG TAB PO SCH ×3 (08:06→17:08)
[2022-07-18] MEDS: SUCRALFATE 1 GM/10 ML UDC PO SCH ×4 (08:07→19:41)
[2022-07-18] MEDS: FUROSEMIDE INJ 20 MG/2 ML VIAL IV SCH ×3 (08:08→19:42)
[2022-07-18] MEDS ORDERED: Nursing to Pharmacy Communication SCH (08:15)
[2022-07-18 08:22] LABS: Prothrombin Time 20.9 Seconds (9.0-12.0)
--- NOTE | 2022-07-18 08:26 | Nephrology Progress Note ---
Date of Service July 18, 2022 Assessment & Plan (1) Acute kidney injury superimposed on chronic kidney disease: Plan: * COLLIN due to 3rd spacing of volume and poor renal perfusion - resolved. Renal function is back to baseline * Patient is nonoliguric. Electrolyte balance is acceptable * Net 569 cc diuresis overnight, net -3 L since admission * s/p 2.7 L paracentesis 07/17/22 * Albumin has corrected. Will stop albumin infusions today * Continue Spironolactone 50 mg po BID * Continue Furosemide 40 mg IV TID to promote 1-2 L diuresis/day * GI has started IV Octreotide * Monitor UO, volume status and kidney function (2) CKD (chronic kidney disease), stage III: Plan: * Baseline creatinine 1.5-2.0 mg/dL (3) Anemia: Plan: * Anemia of CKD and history of GAVE/portal gastropathy. No signs of active GI bleeding reported * Aranesp provided in office 07/13/22 * Iron saturation 40%, ferritin 144. No acute indication for IV iron therapy at this time * Hgb improved to 8.5 yesterday following 1 unit PRBC (4) Abdominal pain: Plan: * Etiology unclear. Stool PCR panel is negative. Lactulose held due to diarrhea * Peritoneal fluid culture is pending * Discomfort improved following 07/17/22 paracentesis * GI plans EGD today (5) Decompensated hepatic cirrhosis: Plan: * Transplant evaluation has been initiated through [facility] [place]. History of HE, EV, and ascites. No prior history of SBP. Admission and Anticipated Discharge Date Admission Date: July 15, 2022 Subjective Mr. Quiñonez was evaluated in his hospital room this morning. He reports less abdominal distention and tenderness following his 2.7 L paracentesis yesterday. Mr. Quiñonez reports brisk UO in response to IV Furosemide therapy Review of Systems Constitutional: no fever Eyes: no problem reported Ear, Nose, Mouth, Throat: no problem reported Respiratory: no cough and no dyspnea Cardiovascular: no chest pain Gastrointestinal: no abdominal pain, no nausea, no vomiting and no diarrhea/loose stools Genitourinary: no hematuria Physical Exam Constitutional: not in distress Eyes: PERRL, conjunctivae normal, anicteric sclerae ENMT: external ear and nose normal, oropharynx normal Neck: trachea midline, no thyromegaly Respiratory: normal respiratory effort, lungs clear to auscultation Cardiovascular: Rate/Rhythm: regular rate and regular rhythm Extremities: + edema (2+ LE swelling) Gastrointestinal (Abdomen): Inspection/Auscultation: + abdomen distended Percussion/Palpation: + abdomen tender and abdomen soft; no guarding Neurologic: Speech / Cognition: normal speech and normal cognition Results & Data Vital Signs (Past 12 Hours) Vital Signs Temp Pulse Pulse Resp BP Pulse Ox O2 Del Method 07/18/22 07:49 36.5 C 89 19 100/53 L 97 Room Air 07/18/22 07:22 81 07/18/22 02:32 37 C 82 18 96/54 L 93 Room Air 07/17/22 22:02 89 07/17/22 23:16 Room Air 07/17/22 22:28 36.9 C 88 18 100/57 L 97 Room Air Laboratory Results Laboratory Tests 07/18/22 07/18/22 07:31 07:32 WBC 2.83 L Hgb 8.0 L Hct 24.1 L Plt Count 42 L Sodium 140 Potassium 3.4 L Chloride 100 Carbon Dioxide 34 H BUN 19 Creatinine 1.90 H Glucose 128 H Total Bilirubin 3.8 H D AST 19 ALT 6 L Alkaline Phosphatase 48 Albumin 3.5 PG Care Time/CCT Total # of Minutes Spent Total Time Spent with Patient: Total time spent is greater than 50% in coordination of care (as documented) at patient's floor/unit and/or counseling patient: Coding Level of Care Code 89255 SUB INP/OBS CARE 3/50MIN Diagnoses Acute kidney injury superimposed on chronic kidney disease N17.9; N18.9 CKD (chronic kidney disease), stage III N18.3 Anemia D64.9 Abdominal pain R10.9 Decompensated hepatic cirrhosis K72.90; K74.60
[2022-07-18 08:36] LABS: Albumin Level 3.5 gm/dl (3.4-5.0); Bilirubin Direct 1.3 mg/dl (0-0.2); Bilirubin,Total 3.8 mg/dl (0.2-1.0); Calcium 9.8 mg/dl (8.6-10.3); Creatinine Clr Calc Pharmacy 46.7 ml/min; Est GFR (African American) 41.1 ml/min; Est GFR (Non-African American) 35.4 ml/min; Potassium 3.4 mmol/L (3.5-5.1); Total Protein 5.6 gm/dl (6.0-8.3)
[2022-07-18] MEDS: CHOLESTYRAMINE LIGHT 4 GM PKT PO SCH (09:00)
[2022-07-18] MEDS: MIDODRINE HCL 10 MG TAB PO SCH ×3 (09:00→16:23)
[2022-07-18] MEDS: CHOLECALCIFEROL 1,000 UNITS 25 MCG TAB PO SCH (10:10)
--- NOTE | 2022-07-18 10:20 | Anesthesiology Consultation ---
Date of Service July 18, 2022 Assessment & Plan Chart Review Chart Review: Acceptable Risk for Surgery and Patient NOT seen in Pre Admission Testing History Surgery Operation Date: 07/18/22 16:30 Proposed Procedures p Esophagogastroduodenoscopy Dr Carreno - Elvin Carreno MD Height/Weight Height: 5 ft 9 in Weight: 115.9 kg Allergies Allergy/AdvReac Type Severity Reaction Status Date / Time tamsulosin Allergy Intermediate HIVES Verified 07/12/22 10:29 etanercept [From Enbrel] AdvReac Intermediate Increased Verified 07/12/22 10:29 infections Medications Home Medications Medication Instructions Recorded Confirmed Last Taken cholecalciferol (vitamin D3) 50 50 mcg PO QAM #90 caps 05/15/21 07/13/22 06/07/22 mcg (2,000 unit) capsule lactulose 10 gram/15 mL oral 20 g (30 mL) PO BID #946 mL 09/19/21 07/13/22 07/09/22 solution vitamin B complex 1 tab PO DAILY 10/23/21 07/13/22 06/07/22 am adalimumab 40 mg/0.4 mL 40 mg (0.4 mL) subcut Q14D #2 ea 01/03/22 07/13/22 06/03/22 subcutaneous pen kit (Humira(CF) Pen) rifaximin 550 mg tablet (Xifaxan) 550 mg PO BID #60 tabs 01/16/22 07/13/22 06/07/22 08:30 midodrine 5 mg tablet 5 mg PO TID #180 tabs 05/03/22 07/13/22 06/11/22 18:30 pantoprazole 40 mg tablet,delayed 40 mg PO BID #60 tabs 05/16/22 07/13/22 06/11/22 08:00 release darbepoetin coretta in polysorbat 100 100 mcg subcut .COMPLEX PRN 05/23/22 07/13/22 05/22/22 11:00 mcg/0.5 mL in polysorbate NEEDED injection syringe ondansetron HCl 4 mg tablet 4 mg PO Q8H PRN Nausea And 06/21/22 07/13/22 Unknown Vomiting #30 tabs paroxetine HCl 10 mg tablet 10 mg PO QPM 06/21/22 07/13/22 Unknown furosemide 40 mg tablet 40 mg PO BID #180 tabs 07/02/22 07/13/22 Unknown spironolactone 25 mg tablet 50 mg PO QAM #180 tabs 07/02/22 07/13/22 Unknown sucralfate 100 mg/mL oral 10 ml PO BID 07/13/22 07/13/22 Unknown suspension Active Medications Generic Name Dose Route Start Last Admin Trade Name Freq PRN Reason Stop Dose Admin Acetaminophen 650 mg 07/16/22 01:47 07/16/22 01:57 Acetaminophen 325 Mg Tab PO 08/15/22 01:46 650 mg Q6H PRN Administration pain Cholestyramine Resin 4 gm 07/16/22 11:15 07/18/22 09:00 Cholestyramine Light 4 Gm Pkt PO 08/15/22 11:14 4 gm QAM LUZ Administration Furosemide 40 mg 07/17/22 09:00 07/18/22 08:08 Furosemide Inj 20 Mg/2 Ml Vial IV 08/16/22 08:59 40 mg TID LUZ Administration Ceftriaxone Sodium 2,000 mg/ 70 mls @ 100 mls/hr 07/14/22 14:00 07/17/22 1 5:23 Dextrose IV 07/24/22 13:59 Infused Q24H LUZ Infusion Protocol Albumin Human 25 gm in 100 mls @ 50 mls/hr 07/15/22 09:00 07/18/22 10:18 Albumin 25% IV 07/19/22 02:59 Infused Q8H LUZ Infusion Pantoprazole Sodium 40 mg/ 100 mls @ 20 mls/hr 07/17/22 16:15 07/18/22 10:18 Dextrose IV 08/16/22 16:14 0 mg/hr Q5H LUZ 0 mls/hr Infusion 8 MG/HR Octreotide Acetate 500 mcg/ 100.5 mls @ 10.05 mls/hr 07/17/22 16:00 07/18/22 10:18 Dextrose IV 08/16/22 15:59 0 mcg/hr .Q10H LUZ 0 mls/hr Infusion 50 MCG/HR Midodrine 10 mg 07/18/22 08:00 07/18/22 09:00 Midodrine Hcl 10 Mg Tab PO 08/17/22 07:59 10 mg TID@0800,1200,1600 LUZ Administration Ondansetron HCl 4 mg 07/17/22 02:37 07/17/22 11:17 Ondansetron Inj 2 Mg/Ml 2 Ml Vial IV 08/16/22 02:36 4 mg Q6H PRN Administration Nausea And Vomiting Paroxetine HCl 10 mg 07/13/22 21:00 07/17/22 21:05 Paroxetine Hcl 10 Mg Tab PO 08/12/22 20:59 10 mg QPM LUZ Administration Rifaximin 550 mg 07/13/22 21:00 07/17/22 21:05 Rifaximin 550 Mg Tablet PO 08/12/22 20:59 550 mg BID LUZ Administration Spironolactone 50 mg 07/14/22 17:00 07/18/22 09:21 Spironolactone 25 Mg Tab PO 08/13/22 16:59 Not Given BID17 LUZ Sucralfate 1 gm 07/17/22 17:00 07/18/22 08:07 Sucralfate 1 Gm/10 Ml Udc PO 08/16/22 16:59 1 gm QID LUZ Administration Vitamin B Complex 1 tab 07/14/22 09:00 07/17/22 08:48 Vitamin B Complex Tab PO 08/13/22 08:59 1 tab DAILY LUZ Administration Vitamin D 2,000 units 07/14/22 09:00 07/18/22 10:10 Cholecalciferol 1,000 Units 25 Mcg Tab PO 08/13/22 08:59 2,000 units QAM LUZ Administration Past Medical History Medical History Anemia Ascites Calculus of kidney Cervical disc disease CKD (chronic kidney disease), stage III Depression Esophageal varices determined by endoscopy GAVE (gastric antral vascular ectasia) Per records GERD (gastroesophageal reflux disease) History of GI bleed discharged from [facility] 06/10/22: borderline hemorrhagic shock-upper GI bleed suspected to be d/t GAVE-received 1 unit of PRBC History of herniated intervertebral disc lumbar area History of SCC (squamous cell carcinoma) of skin S/p removal- follows with derm Hx of blood clots 06/2021 @ [facility]- pt reports blood clot in left arm around IV site after being discharged from hospital- no meds due to current blood loss issue- warm compresses to site per pt- 2 ultrasounds done - no current issues Hx of upper gastrointestinal hemorrhage recent hospitalization at [facility] 06/07/2022 Hypothyroidism 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 current work-up for planned liver transplant per [facility] transplant clinic records Lumbar disc disease Oral mucositis On mouthwash daily- no recent issues Pancytopenia Portal hypertensive gastropathy Post-traumatic urethral stricture Psoriasis Psoriatic arthritis PVT (portal vein thrombosis) denies Spinal stenosis EPIDURAL INJECTIONS IN PAST FOR PAIN RELIEF TMJ arthralgia Urinary retention Urinary tract infection Wide-complex tachycardia ON CARDVEDILOL-F/U DR HARTMAN LAST VISIT<1 YR AGO Past Family History Family History Grandmother (Maternal) Diabetes Father Renal cancer Mother Aortic aneurysm Denies family history of Ovarian cancer Prostate cancer Myocardial infarction Breast cancer Colorectal cancer Past Surgical History Surgical History H/O foot surgery excision of neuroma b/l feet History of appendectomy History of arthroscopy RT KNEE History of cataract surgery RT/LEFT History of cholecystectomy History of esophagogastroduodenoscopy (EGD) last 03/21/22 @ [facility] 02/08/22 Dr. Sara Cloud- EGD- Grade I esophageal varices, Portal hypertensive gastropathy History of herniorrhaphy right inguinal History of lithotripsy History of liver biopsy History of repair of rotator cuff RT/LEFT History of tooth extraction History of urologic surgery Urethral reconstruction 4 years ago at [facility] Nausea and vomiting after administration of anesthetic agent S/P colonoscopy S/P epidural steroid injection S/P orchiectomy Right age 9 for UDT S/P urological surgery (2018) BMG urethroplasty-[facility] [place] Suprapubic catheter AND REMOVAL Social History Smoking Status: Never smoker Do You Dip or Chew Tobacco: No Hx Alcohol Use: No Hx Substance Use: No substance use type: does not use Physical Exam Vital Signs Last Vital Signs Temp 36.5 C 07/18/22 07:49 Pulse 89 07/18/22 07:49 Resp 19 07/18/22 07:49 BP 100/53 L 07/18/22 07:49 Pulse Ox 97 07/18/22 07:49 O2 Del Method Room Air 07/18/22 08:00 Testing Laboratory Results 07/18/22 07:31 07/18/22 07:32 PT 20.9 Seconds (9.0-12.0) H 07/18/22 07:32 INR 2.0 (0.9-1.1) H 07/18/22 07:32 APTT 31.6 Seconds (21.0-31.0) H 07/13/22 11:26 Urine Color Yellow 07/13/22 13:34 Urine Appearance Cloudy (Clear) A 07/13/22 13:34 Urine pH 6.0 (4.5-7.5) 07/13/22 13:34 Ur Specific [place] 1.011 (1.000-1.030) 07/13/22 13:34 Urine Protein Negative (Negative) 07/13/22 13:34 Urine Glucose (UA) Negative (Negative) 07/13/22 13:34 Urine Ketones Negative (Negative) 07/13/22 13:34 Urine Nitrite Negative (Negative) 07/13/22 13:34 Ur Leukocyte Esterase 2+ (Negative) H 07/13/22 13:34 Urine WBC (Auto) >30 /hpf (0-5) H 07/13/22 13:34 Urine RBC (Auto) 10-30 /hpf (0-4) H 07/13/22 13:34 U Hyaline Cast (Auto) 1-5 /lpf (0-5) 07/13/22 13:34 U Epithel Cells (Auto) 10-20 /lpf (0-5) H 07/13/22 13:34 Urine Bacteria (Auto) Negative (Negative) 07/13/22 13:34 Blood Type O Positive 07/16/22 07:56 Antibody Screen NEGATIVE 07/16/22 07:56 07/17/22 Unknown Gram Stain - Final Peritoneal Fluid 07/13/22 16:43 Aerobic Blood Culture - Preliminary Blood No growth in Aerobic bottle after 48 hours. Anaerobic Blood Culture - Final 07/13/22 16:58 Aerobic Blood Culture - Preliminary Blood No growth in Aerobic bottle after 48 hours. Anaerobic Blood Culture - Preliminary No growth in Anaerobic bottle after 48 hours. 07/13/22 13:34 Urine Culture - Final Urine,Clean Catch Three types of organisms present, all high counts. Repeat collection recommended. No further identifications or sensitivities to follow. Electrocardiogram Date: 07/13/22 Sinus rhythm with Premature supraventricular complexes Low voltage QRS Possible Anterolateral infarct (cited on or before 13-JUL-2022) Abnormal ECG When compared with ECG of 13-JUL-2022 11:23, Premature supraventricular complexes are now Present Confirmed by Franklyn Hartman ([id number]) on 07/13/2022 4:43:38 PM
--- NOTE | 2022-07-18 10:41 | History & Physical Bridge Note ---
Date of Service July 18, 2022 History & Physical Bridge Note I have examined the patient, reviewed the History & Physical and in the interval since the performance of the History & Physical I have noted the following changes of clinical significance: no changes noted
[2022-07-18] MEDS ORDERED: PROPOFOL IV EMULSION 10 MG/ML 20 ML VIAL IV ONE (10:54)
[2022-07-18] MEDS ORDERED: LIDOCAINE 2% 2 ML VIAL/AMP(20MG/ML) INFIL ONE (10:54)
[2022-07-18] MEDS ORDERED: KETAMINE 50 MG/5 ML SYRINGE ONE (10:55)
--- NOTE | 2022-07-18 11:27 | GI REPORT ---
Patient Name: Sebastian Quiñonez Procedure Date: 07/18/2022 11:13 AM Date of : 1955 Admit Type: Inpatient Age: 67 Gender: Male Attending MD: Elvin Carreno MD, Procedure: Upper GI endoscopy Providers: Elvin Carreno MD Referring MD: Jonny Briscoe Indications: Melena Medicines: Propofol per Anesthesia Complications: No immediate complications. Estimated Blood Loss: Estimated blood loss: none. Procedure: Pre-Anesthesia Assessment: - Prior to the procedure, a History and Physical was performed, and patient medications, allergies and sensitivities were reviewed. The patient's tolerance of previous anesthesia was reviewed. - The risks and benefits of the procedure and the sedation options and risks were discussed with the patient. All questions were answered and informed consent was obtained. - Patient identification and proposed procedure were verified prior to the procedure by the physician and the nurse. The procedure was verified in the procedure room. - Pre-procedure physical examination revealed no contraindications to sedation. After obtaining informed consent, the endoscope was passed under direct vision. Throughout the procedure, the patient's blood pressure, pulse, and oxygen saturations were monitored continuously. The Endoscope was introduced through the mouth, and advanced to the second part of duodenum. The upper GI endoscopy was accomplished without difficulty. The patient tolerated the procedure well. Findings: Grade I varices were found in the lower third of the esophagus. Severe portal hypertensive gastropathy was found in the stomach. The duodenal bulb and second portion of the duodenum were normal. Impression: - Grade I esophageal varices. - Portal hypertensive gastropathy. - Normal duodenal bulb and second portion of the duodenum. - No specimens collected. Recommendation: - Return patient to hospital [facility] for ongoing care. - Iron supplementation therapy. - PO PPI BID. - PO Carafate. Elvin Carreno MD 07/18/2022 11:27:15 AM This report has been signed electronically. Note Initiated On: 07/18/2022 11:13 AM Number of Addenda: 0 I attest to the content of the Intraoperative Record and orders documented therein, exceptions below {[id number]}
[2022-07-18] MEDS: VITAMIN B COMPLEX TAB PO SCH (12:15)
[2022-07-18] MEDS: rifAXIMin 550 MG TABLET PO SCH ×2 (12:16→19:41)
--- NOTE | 2022-07-18 13:29 | Anesthesiology Progress Note ---
Date of Service July 18, 2022 Anesthesia Post Procedure Vital Signs Vital Signs: Temp Pulse Pulse Resp BP BP Pulse Ox 07/18/22 12:29 36.5 C 77 22 106/68 95 07/18/22 11:55 75 16 136/72 96 07/18/22 11:40 85 16 123/80 96 07/18/22 11:25 86 16 107/72 98 07/18/22 10:27 36.4 C L 80 16 106/53 L 95 07/18/22 08:00 07/18/22 07:49 36.5 C 89 19 100/53 L 97 07/18/22 07:22 81 07/18/22 02:32 37 C 82 18 96/54 L 93 07/17/22 22:02 89 07/17/22 23:16 07/17/22 22:28 36.9 C 88 18 100/57 L 97 07/17/22 19:13 36.8 C 96 H 18 99/58 L 98 07/17/22 14:14 93 H 07/17/22 15:18 36.7 C 88 16 121/65 97 O2 Del Method 07/18/22 12:29 Room Air 07/18/22 11:55 Room Air 07/18/22 11:40 Room Air 07/18/22 11:25 Room Air 07/18/22 10:27 Room Air 07/18/22 08:00 Room Air 07/18/22 07:49 Room Air 07/18/22 07:22 07/18/22 02:32 Room Air 07/17/22 22:02 07/17/22 23:16 Room Air 07/17/22 22:28 Room Air 07/17/22 19:13 Room Air 07/17/22 14:14 07/17/22 15:18 Room Air Pain Intensity Abdomen: Pain Intensity: 2 Transfer of Care Handoff Completed per policy Notes Mental Status: alert / awake / arousable and participated in evaluation Patient Amnestic to Procedure: Yes Nausea / Vomiting: adequately controlled Pain: adequately controlled Airway Patency, RR, SpO2: stable & adequate BP & HR: stable & adequate Hydration State: stable & adequate Anesthetic Complications: no major complications apparent and Pt Satisfied with anesthetic care
[2022-07-18] MEDS: cefTRIAXone SODIUM 2,000 MG in DEXTROSE 5% 50 ML IV SCH (14:04)
--- NOTE | 2022-07-18 16:25 | History & Physical Report ---
Date of Service July 18, 2022 Assessment & Plan Admission and Anticipated Discharge Date Admission Date: July 15, 2022 History of Present Illness Primary Care Provider: Fiorella Castellano DO EGD showed portal HTN gastropathy as the likely source of his anemia and intermittent black stools. Management is PPI, Carafate and Iron therapy. Follow up as OP with Hepatology clinic. Management of his diuresis per Nephrology. Recall GI if needed. Allergies Allergy/AdvReac Type Severity Reaction Status Date / Time tamsulosin Allergy Intermediate HIVES Verified 07/12/22 10:29 etanercept [From Enbrel] AdvReac Intermediate Increased Verified 07/12/22 10:29 infections Home Medications Medication Instructions Recorded Confirmed Type cholecalciferol (vitamin D3) 50 50 mcg PO QAM #90 caps 05/15/21 07/13/22 Rx mcg (2,000 unit) capsule lactulose 10 gram/15 mL oral 20 g (30 mL) PO BID #946 mL 09/19/21 07/13/22 Rx solution vitamin B complex 1 tab PO DAILY 10/23/21 07/13/22 History adalimumab 40 mg/0.4 mL 40 mg (0.4 mL) subcut Q14D #2 ea 01/03/22 07/13/22 Rx subcutaneous pen kit (Humira(CF) Pen) rifaximin 550 mg tablet (Xifaxan) 550 mg PO BID #60 tabs 01/16/22 07/13/22 Rx midodrine 5 mg tablet 5 mg PO TID #180 tabs 05/03/22 07/13/22 Rx pantoprazole 40 mg tablet,delayed 40 mg PO BID #60 tabs 05/16/22 07/13/22 Rx release darbepoetin coretta in polysorbat 100 100 mcg subcut .COMPLEX PRN 05/23/22 07/13/22 History mcg/0.5 mL in polysorbate NEEDED injection syringe ondansetron HCl 4 mg tablet 4 mg PO Q8H PRN Nausea And 06/21/22 07/13/22 Rx Vomiting #30 tabs paroxetine HCl 10 mg tablet 10 mg PO QPM 06/21/22 07/13/22 History furosemide 40 mg tablet 40 mg PO BID #180 tabs 07/02/22 07/13/22 Rx spironolactone 25 mg tablet 50 mg PO QAM #180 tabs 07/02/22 07/13/22 Rx sucralfate 100 mg/mL oral 10 ml PO BID 07/13/22 07/13/22 History suspension Past Med/Surg History Medical History Anemia Ascites Calculus of kidney Cervical disc disease CKD (chronic kidney disease), stage III Depression Esophageal varices determined by endoscopy GAVE (gastric antral vascular ectasia) Per records GERD (gastroesophageal reflux disease) History of GI bleed discharged from [facility] 06/10/22: borderline hemorrhagic shock-upper GI bleed suspected to be d/t GAVE-received 1 unit of PRBC History of herniated intervertebral disc lumbar area History of SCC (squamous cell carcinoma) of skin S/p removal- follows with derm Hx of blood clots 06/2021 @ [facility]- pt reports blood clot in left arm around IV site after being discharged from hospital- no meds due to current blood loss issue- warm compresses to site per pt- 2 ultrasounds done - no current issues Hx of upper gastrointestinal hemorrhage recent hospitalization at [facility] 06/07/2022 Hypothyroidism 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 current work-up for planned liver transplant per [facility] transplant clinic r ecords Lumbar disc disease Oral mucositis On mouthwash daily- no recent issues Pancytopenia Portal hypertensive gastropathy Post-traumatic urethral stricture Psoriasis Psoriatic arthritis PVT (portal vein thrombosis) denies Spinal stenosis EPIDURAL INJECTIONS IN PAST FOR PAIN RELIEF TMJ arthralgia Urinary retention Urinary tract infection Wide-complex tachycardia ON CARDVEDILOL-F/U DR VANESSA LAST VISIT<1 YR AGO Surgical History H/O foot surgery excision of neuroma b/l feet History of appendectomy History of arthroscopy RT KNEE History of cataract surgery RT/LEFT History of cholecystectomy History of esophagogastroduodenoscopy (EGD) last 03/21/22 @ [facility] 02/08/22 Dr. Sara Cloud- EGD- Grade I esophageal varices, Portal hypertensive gastropathy History of herniorrhaphy right inguinal History of lithotripsy History of liver biopsy History of repair of rotator cuff RT/LEFT History of tooth extraction History of urologic surgery Urethral reconstruction 4 years ago at [facility] Nausea and vomiting after administration of anesthetic agent S/P colonoscopy S/P epidural steroid injection S/P orchiectomy Right age 9 for UDT S/P urological surgery (2018) BMG urethroplasty-[facility] Suprapubic catheter AND REMOVAL Family History Grandmother (Maternal) Diabetes Father Renal cancer Mother Aortic aneurysm Denies family history of Ovarian cancer Prostate cancer Myocardial infarction Breast cancer Colorectal cancer Social History Smoking Status: Never smoker Second Hand Exposure: No; Do You Dip or Chew Tobacco: No; Hx Alcohol Use: No Hx Substance Use: No Preferred Language: Niuean Communication Ability: Effective Visual Impairment: No Limitations Hearing Ability: Hard of Hearing Finishing Room Operator Required: No Beliefs That Will Affect Care: None marital status: / Current Living Situation: Family Current Living Situation Comment: lives home with son and daughter in law current occupational status: retired How many Children do You have: 1 Other Information That Helps Us Care for You: No Feels Safe at Home: Yes Safety Concerns: Feels Safe At This Time Diet: regular Diet Comment: regular caffeine: Yes during the past year weight has: decreased > 10 lbs Dental Care, Regularly: No Physical Activity Frequency: Other Physical Activity Frequency Comment: does all housework/outside work and cuts wood Seatbelt Use: never Sunscreen Use: No Assistive Devices: Cane and Walker Results & Data Vital Signs (Past 12 Hours) Vital Signs Temp Pulse Pulse Resp BP BP Pulse Ox 07/18/22 16:10 36.6 C 74 19 96/49 L 94 07/18/22 12:29 36.5 C 77 22 106/68 95 07/18/22 11:55 75 16 136/72 96 07/18/22 11:40 85 16 123/80 96 07/18/22 11:25 86 16 107/72 98 07/18/22 10:27 36.4 C L 80 16 106/53 L 95 07/18/22 08:00 07/18/22 07:49 36.5 C 89 19 100/53 L 97 07/18/22 07:22 81 O2 Del Method 07/18/22 16:10 Room Air 07/18/22 12:29 Room Air 05/24/23 11:55 Room Air 07/18/22 11:40 Room Air 07/18/22 11:25 Room Air 07/18/22 10:27 Room Air 07/18/22 08:00 Room Air 07/18/22 07:49 Room Air 07/18/22 07:22 Code Status & VTE Plan VTE Prophylaxis Plan VTE Prophylaxis will be ordered: Yes
[2022-07-18] MEDS: PARoxetine HCL 10 MG TAB PO SCH (19:41)
--- NOTE | 2022-07-18 21:31 | Hospitalist Progress Note ---
Date of Service July 18, 2022 Assessment & Plan (1) Upper GI bleeding: Plan: s/p EGD today by [facility] - no active bleeding seen. Stable esophageal varices and stable portal gastropathy. No new areas of bleeding. Can stop PPI drip and Octreotide drip. Resume diet (liquids for now). CBC am. Resume PO PPI in am. Continue carafate. Cont IV rocephin prophylaxis. (2) Acute blood loss anemia: Plan: 2nd to #1. s/p 2 units of PRBCs this admission. Hb 8 today - repeat cbc am. (3) Anasarca: Plan: Secondary to decompensated liver cirrhosis Cirrhosis is 2nd to SERRANO He is followed by Dr Espitia - Hepatology - at [facility] in [place] Appreciate [facility] GI consultation here as well as [facility] Nephrology assistance for diuretic management remains on IV albumin TID, IV lasix TID, aldactone BID albumin to be d/c today by nephrology 07/17 -- paracentesis - 2.7 liters of fluid obtained - cell counts not c/w SBP; cultures remain negative remains on midodrine - increased such to 10mg TID due to low or low-normal BPs (4) Abdominal pain: Plan: suspect 2nd to portal gastropathy pain resolved today with IV PPI cont PPI bid cont carafate qid liquid diet as tolerated today (5) 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: Plan: advanced liver disease MELD today is 25 (zo due to additional elevations in total bili and INR this am) Decompensation/volume overload -- continue Lasix, Aldactone, albumin IV although latter being discontinued Continue to hold Lactulose 2nd diarrhea but continue rifaximin BID Fortunately no signs of hepatic encephalopathy Cont midodrine -- increased to 10mg TID Again follows with [facility] in [place] - Dr. Espitia Previous EGDs with portal hypertensive gastropathy, esophageal varices, etc. EGD today with stable esophageal varices & portal gastropathy -- no new findings (6) Acute kidney injury superimposed on chronic kidney disease: Plan: Cr at 2.38 on admission, baseline appears to be close to 1.9-2.0 CrCl at baseline 40s Cr 1.9 today appreciate nephrology assistance with diuretics, etc BMP am (7) Pancytopenia: Plan: Secondary to liver cirrhosis Acute on chronic anemia - acute component is due to blood loss, likely upper GI bleeding (see below) Follow CBC daily (8) Hyponatremia: Plan: Normal at 140 today was 133 at admission 2nd to volume overload from decompensated cirrhosis BMP AM (9) PSVT (paroxysmal supraventricular tachycardia): Plan: h/o tele overnight again wnl (10) Hypothyroidism: Plan: Continue levothyroxine TSH was normal in 03/2022 (11) GERD (gastroesophageal reflux disease): Plan: Continue protonix and carafate (12) Depression: Plan: Continue paroxetine (13) Diarrhea: Plan: Stool studies and C. diff negative Started cholestyramine once daily by [facility] Diarrhea improved (14) Urinary tract infection: Plan: suspected, but urine cx negative will be on rocephin for prophylaxis in the midst of GI bleeding so urinary tract will be covered regardless Plan son updated at bedside yesterday care d/w [facility] Ms Tobi Doty appreciate their assistance Admission and Anticipated Discharge Date Admission Date: July 15, 2022 Subjective tele stable overnight patient walking the hallways without dyspnea denies orthopnea LE edema modestly improved abd distension unchanged underwent EGD today -- no active bleeding varices stable portal gastropathy stable no interventions taken during the EGD resumed on diet - no pain with eating in fact his epigastric pain is fully resolved today I corresponded with [facility] - can stop PPI & Octreotide drips Review of Systems Review of Systems: gen - no fever; overall feels better today cv - no cp, no orthopnea pulm - no dyspnea, no cough GI - no hematemesis; no stools today; no diarrhea today Physical Exam Physical Exam: gen - NAD, lying comfortably in bed, pleasant skin - pallor, no rash; raygoza angiomas present on chest, etc mouth - MMM neck - no JVD heart - RRR, s1 s2 lungs - CTA b/l abd - soft, NT, BS+, no hepatomegaly, likely palpable spleen; paracentesis site covered with band-aid - no leakage of ascitic fluid; mild distension only ext - severe edema of legs from feet to thighs, 2+ b/l; pulses 2+ b/l psych - a/o x 3 neuro - no asterixis Results & Data Results & Data Vital Signs (Past 12 Hours) Vital Signs Temp Pulse Pulse Resp BP BP Pulse Ox 07/18/22 19:00 36.8 C 77 18 104/62 96 07/18/22 15:30 67 07/18/22 16:10 36.6 C 74 19 96/49 L 94 07/18/22 12:29 36.5 C 77 22 106/68 95 07/18/22 11:55 75 16 136/72 96 07/18/22 11:40 85 16 123/80 96 07/18/22 11:25 86 16 107/72 98 07/18/22 10:27 36.4 C L 80 16 106/53 L 95 O2 Del Method 07/18/22 19:00 Room Air 07/18/22 15:30 07/18/22 16:10 Room Air 07/18/22 12:29 Room Air 07/18/22 11:55 Room Air 07/18/22 11:40 Room Air 07/18/22 11:25 Room Air 07/18/22 10:27 Room Air Laboratory Results Laboratory Results - last 24 hr 07/18/22 07/18/22 07/18/22 07:31 07:32 07:32 WBC 2.83 L RBC 2.25 L Hgb 8.0 L Hct 24.1 L MCV 107.1 H MCH 35.6 H MCHC 33.2 RDW Std Deviation 81.9 H RDW Coeff of Miguel 21.2 H Plt Count 42 L MPV 9.7 PT 20.9 H INR 2.0 H Sodium 140 Potassium 3.4 L Chloride 100 Carbon Dioxide 34 H Anion Gap 6 BUN 19 Creatinine 1.90 H Est Cr Clr Drug Dosing 46.7 Est GFR ( Amer) 41.1 Est GFR (Non-Af Amer) 35.4 BUN/Creatinine Ratio 10.0 Glucose 128 H Calcium 9.8 Total Bilirubin 3.8 H D Direct Bilirubin 1.3 H AST 19 ALT 6 L Alkaline Phosphatase 48 Total Protein 5.6 L Albumin 3.5 PG Care Time/CCT Total # of Minutes Spent Total Time Spent with Patient: Total time spent is greater than 50% in coordination of care (as documented) at patient's floor/unit and/or counseling patient: Coding Level of Care Code 15939 SUB INP/OBS CARE 2/35MIN Diagnoses Upper GI bleeding K92.2 Acute blood loss anemia D62 Anasarca R60.1 Abdominal pain R10.9 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 K75.81; K74.60 Acute kidney injury superimposed on chronic kidney disease N17.9; N18.9 Pancytopenia D61.818 Hyponatremia E87.1 PSVT (paroxysmal supraventricular tachycardia) I47.1 Hypothyroidism E03.9 GERD (gastroesophageal reflux disease) K21.9 Depression F32.A Diarrhea R19.7 Urinary tract infection N39.0; R31.9 Hematuria presence: with hematuria Urinary tract infection type: site unspecified (14) Urinary tract infection Hematuria presence: with hematuria Urinary tract infection type: site unspecified Qualified Code(s): N39.0 - Urinary tract infection, site not specified; R31.9 - Hematuria, unspecified
[2022-07-19] MEDS: ALBUMIN 25% 25 GM/100 ML VIAL IV SCH (02:55)
[2022-07-19 06:56] LABS: Hematocrit (blood only) 23.6 % (42.0-52.0); Hemoglobin 7.9 g/dl (14.0-18.0); Mean Corpuscular Hemoglobin 35.9 pg (25.0-34.0); Mean Corpuscular Hgb Conc 33.5 g/dL (32.0-36.0); Mean Corpuscular Volume 107.3 fL (80.0-100.0); Mean Platelet Volume 9.8 fL (9.4-12.4); Platelet Count 46 K/uL (130-400); RDW Coefficient of Variation 20.4 % (11.5-14.5); RDW Standard Deviation 79.6 fL (36.4-46.3)
[2022-07-19 07:23] LABS: INR 2.1 (0.9-1.1)
[2022-07-19 07:27] LABS: Albumin Level 3.8 gm/dl (3.4-5.0); BUN Creatinine Ratio 9.9 (10-20); Calcium 9.7 mg/dl (8.6-10.3); Creatinine Clr Calc Pharmacy 48.8 ml/min; Est GFR (African American) 43.3 ml/min; Est GFR (Non-African American) 37.3 ml/min; Globulin 1.9 gm/dl (2.5-4.0); Potassium 3.3 mmol/L (3.5-5.1); Total Protein 5.7 gm/dl (6.0-8.3)
--- NOTE | 2022-07-19 08:33 | Nephrology Progress Note ---
Date of Service July 19, 2022 Assessment & Plan (1) Acute kidney injury superimposed on chronic kidney disease: Plan: * COLLIN due to 3rd spacing of volume and poor renal perfusion - resolved. Renal function is back to baseline * Patient is nonoliguric. Electrolyte balance is acceptable * Net 1907 cc diuresis overnight, net -4.6 L since admission * s/p 2.7 L paracentesis 07/17/22 * Serum albumin has corrected following SPA infusion * Continue Spironolactone 50 mg po BID * Continue Furosemide 40 mg IV TID to promote 1-2 L diuresis/day * Continue IV Octreotide as per GI * Monitor UO, volume status and kidney function (2) CKD (chronic kidney disease), stage III: Plan: * Baseline creatinine 1.5-2.0 mg/dL (3) Anemia: Plan: * Anemia of CKD and history of GAVE/portal gastropathy. No signs of active GI bleeding reported * Aranesp provided in office 07/13/22 * Iron saturation 40%, ferritin 144. No acute indication for IV iron therapy at this time * Hgb 7.9 today - continue to monitor * EGD 07/18/22 revealed congestive gastropathy. No active bleeding (4) Abdominal pain: Plan: * Etiology unclear. Stool PCR panel is negative. Lactulose held due to diarrhea * 07/17/22 Peritoneal fluid culture was negative * Discomfort improved following 07/17/22 paracentesis (5) Decompensated hepatic cirrhosis: Plan: * Transplant evaluation has been initiated through [facility]. History of HE, EV, and ascites. No prior history of SBP. Admission and Anticipated Discharge Date Admission Date: July 15, 2022 Subjective Mr. Quiñonez was evaluated in his hospital room this morning. He reports that his abdominal discomfort/distention and LE swelling are markedly improved. He has been ambulating in the hallway Review of Systems Constitutional: no fever Eyes: no problem reported Ear, Nose, Mouth, Throat: no problem reported Respiratory: no cough and no dyspnea Cardiovascular: no chest pain Gastrointestinal: no abdominal pain, no nausea, no vomiting and no diarrhea/loose stools Genitourinary: no hematuria Physical Exam Constitutional: not in distress Eyes: PERRL, conjunctivae normal, anicteric sclerae ENMT: external ear and nose normal, oropharynx normal Neck: trachea midline, no thyromegaly Respiratory: normal respiratory effort, lungs clear to auscultation Cardiovascular: Rate/Rhythm: regular rate and regular rhythm Extremities: + edema (2+ LE swelling) Gastrointestinal (Abdomen): Inspection/Auscultation: + abdomen distended Percussion/Palpation: + abdomen tender and abdomen soft; no guarding Neurologic: Speech / Cognition: normal speech and normal cognition Results & Data Vital Signs (Past 12 Hours) Vital Signs Temp Pulse Pulse Resp BP BP Pulse Ox 07/19/22 07:57 36.8 C 83 20 110/62 91 07/19/22 07:47 07/19/22 07:20 82 07/19/22 03:00 36.8 C 82 20 110/66 94 07/18/22 23:00 84 07/18/22 22:00 37 C 65 18 100/51 L 93 07/18/22 21:26 O2 Del Method 07/19/22 07:57 Room Air 07/19/22 07:47 Room Air 07/19/22 07:20 07/19/22 03:00 Room Air 07/18/22 23:00 07/18/22 22:00 Room Air 07/18/22 21:26 Room Air Laboratory Results Laboratory Tests 07/18/22 07/19/22 07/19/22 07:32 05:50 05:50 WBC 3.00 L Hgb 7.9 L Hct 23.6 L Plt Count 46 L Sodium 140 Potassium 3.3 L Chloride 99 Carbon Dioxide 35 H BUN 18 Creatinine 1.82 H Glucose 107 H Calcium 9.7 Total Bilirubin 3.0 H Albumin 3.5 PG Care Time/CCT Total # of Minutes Spent Total Time Spent with Patient: Total time spent is greater than 50% in coordination of care (as documented) at patient's floor/unit and/or counseling patient: Coding Level of Care Code 55288 SUB INP/OBS CARE 3/50MIN Diagnoses Acute kidney injury superimposed on chronic kidney disease N17.9; N18.9 CKD (chronic kidney disease), stage III N18.3 Anemia D64.9 Abdominal pain R10.9 Decompensated hepatic cirrhosis K72.90; K74.60
[2022-07-19] MEDS: SUCRALFATE 1 GM/10 ML UDC PO SCH ×4 (08:47→20:32)
[2022-07-19] MEDS: rifAXIMin 550 MG TABLET PO SCH ×2 (08:47→20:32)
[2022-07-19] MEDS: PANTOprazole 40 MG TAB PO SCH ×2 (08:47→20:32)
[2022-07-19] MEDS: CHOLECALCIFEROL 1,000 UNITS 25 MCG TAB PO SCH (08:47)
[2022-07-19] MEDS: SPIRONOLACTONE 25 MG TAB PO SCH ×2 (08:47→16:20)
[2022-07-19] MEDS: VITAMIN B COMPLEX TAB PO SCH (08:48)
[2022-07-19] MEDS: CHOLESTYRAMINE LIGHT 4 GM PKT PO SCH ×2 (08:48→09:47)
[2022-07-19] MEDS: FUROSEMIDE INJ 20 MG/2 ML VIAL IV SCH ×3 (08:48→20:39)
[2022-07-19] MEDS: MIDODRINE HCL 10 MG TAB PO SCH ×3 (08:48→16:20)
[2022-07-19] MEDS ORDERED: POTASSIUM CHLORIDE CRTAB 20 MEQ TABCR PO STA ×2 (08:52→20:43)
[2022-07-19] MEDS: cefTRIAXone SODIUM 2,000 MG in DEXTROSE 5% 50 ML IV SCH (14:01)
[2022-07-19] MEDS ORDERED: PHYTONADIONE 5 MG TAB PO STA (18:28)
--- NOTE | 2022-07-19 18:29 | Hospitalist Progress Note ---
Date of Service July 19, 2022 Assessment & Plan (1) Upper GI bleeding: Plan: s/p EGD 07/18 by [facility] GI - no active bleeding seen. Stable esophageal varices and stable portal gastropathy. No new areas of bleeding. PPI drip and Octreotide drip stopped. Tolerating full liquids; likely can resume low salt diet tomorrow. CBC am. Cont BID PPI. Continue carafate qid. Cont IV rocephin prophylaxis for now. (2) Acute blood loss anemia: Plan: 2nd to #1. s/p 2 units of PRBCs this admission. Hb about 8 again today -- cbc in am for stability. (3) Anasarca: Plan: Secondary to decompensated liver cirrhosis Cirrhosis is 2nd to SERRANO He is followed by Dr Espitia - Hepatology - at [facility] in [place] Appreciate [facility] GI consultation here as well as [facility] Nephrology assistance for diuretic management remains on IV lasix TID + aldactone BID albumin was previously d/c by nephrology 07/17 -- paracentesis - 2.7 liters of fluid obtained - cell counts not c/w SBP; cultures remain negative remains on midodrine - increased such to 10mg TID due to low or low-normal BPs BPs improved INR today 2.1 -- was 1.4 at admission likely all cirrhosis related but trial of vit K 5mg x 1 repeat INR and LFTs am (4) Abdominal pain: Plan: suspect 2nd to portal gastropathy pain resolved tolerating diet cont PPI bid cont carafate qid (5) 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: Plan: advanced liver disease MELD ranging 20 to 25 this admission Decompensation/volume overload -- continue Lasix, Aldactone Continue to hold Lactulose 2nd diarrhea but continue rifaximin BID Fortunately no signs of hepatic encephalopathy Cont midodrine 10mg TID Again follows with [facility] in [place] - Dr. Espitia Previous EGDs with portal hypertensive gastropathy, esophageal varices, etc. EGD yesterday with stable esophageal varices & portal gastropathy -- no new findings (6) Acute kidney injury superimposed on chronic kidney disease: Plan: Cr at 2.38 on admission, baseline appears to be close to 1.9-2.0 CrCl at baseline 40s Cr 1.8 today appreciate nephrology assistance with diuretics, etc BMP am (7) Pancytopenia: Plan: Secondary to liver cirrhosis Acute on chronic anemia - acute component is due to blood loss, likely upper GI bleeding (see below) Follow CBC daily (8) Hyponatremia: Plan: Normal at 140 today was 133 at admission 2nd to volume overload from decompensated cirrhosis BMP AM (9) PSVT (paroxysmal supraventricular tachycardia): Plan: h/o tele overnight again wnl (10) Hypothyroidism: Plan: Continue levothyroxine TSH was normal in 03/2022 (11) GERD (gastroesophageal reflux disease): Plan: Continue protonix and carafate (12) Depression: Plan: Continue paroxetine (13) Diarrhea: Plan: Stool studies and C. diff negative Started cholestyramine once daily by [facility] Diarrhea improved with the questran (14) Urinary tract infection: Plan: suspected, but urine cx negative will be on rocephin for prophylaxis in the midst of GI bleeding so urinary tract will be covered regardless Plan care d/w [facility] Ms Tobi Doty appreciate their assistance progressing very nicely Admission and Anticipated Discharge Date Admission Date: July 15, 2022 Subjective patient feeling well tolerating full liquids NO ABDOMINAL PAIN no N/V diarrhea resolved stool was formed today no melena walking the hallways w/o dizziness or SHAW Review of Systems Review of Systems: gen - no fevers cv - no chest pain or orthopnea pulm - no cough GI - no hematemesis, no BRBPR Physical Exam Physical Exam: gen - NAD, lying comfortably in bed, looks good skin - pallor, no rash; raygoza angiomas present on chest, etc mouth - MMM neck - no JVD heart - RRR, s1 s2 lungs - CTA b/l abd - soft, NT, BS+, no hepatomegaly; paracentesis site covered with band-aid - still no leakage of ascitic fluid; no distension ext - <1+ edema b/l - much improved; pulses 2+ b/l psych - a/o x 3 neuro - no asterixis Results & Data Results & Data Vital Signs (Past 12 Hours) Vital Signs Temp Pulse Pulse Resp BP Pulse Ox O2 Del Method 07/19/22 16:59 107 H 07/19/22 16:21 109/68 07/19/22 14:37 36.9 C 81 16 120/70 96 Room Air 07/19/22 11:58 37 C 78 20 119/65 95 Room Air 07/19/22 07:57 36.8 C 83 20 110/62 91 Room Air 07/19/22 07:47 Room Air 07/19/22 07:20 82 Laboratory Results Laboratory Results - last 24 hr 07/19/22 07/19/22 07/19/22 05:50 05:50 05:50 WBC 3.00 L RBC 2.20 L Hgb 7.9 L Hct 23.6 L MCV 107.3 H MCH 35.9 H MCHC 33.5 RDW Std Deviation 79.6 H RDW Coeff of Miguel 20.4 H Plt Count 46 L MPV 9.8 PT 22.0 H INR 2.1 H Sodium 140 Potassium 3.3 L Chloride 99 Carbon Dioxide 35 H Anion Gap 6 BUN 18 Creatinine 1.82 H Est Cr Clr Drug Dosing 48.8 Est GFR ( Amer) 43.3 Est GFR (Non-Af Amer) 37.3 BUN/Creatinine Ratio 9.9 L Glucose 107 H Calcium 9.7 Total Bilirubin 3.0 H AST 18 ALT 6 L Alkaline Phosphatase 40 Total Protein 5.7 L Albumin 3.8 Globulin 1.9 L Albumin/Globulin Ratio 2.0 PG Care Time/CCT Total # of Minutes Spent Total Time Spent with Patient: Total time spent is greater than 50% in coordination of care (as documented) at patient's floor/unit and/or counseling patient: Coding Level of Care Code 87886 SUB INP/OBS CARE 2/35MIN Diagnoses Upper GI bleeding K92.2 Acute blood loss anemia D62 Anasarca R60.1 Abdominal pain R10.9 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 K75.81; K74.60 Acute kidney injury superimposed on chronic kidney disease N17.9; N18.9 Pancytopenia D61.818 Hyponatremia E87.1 PSVT (paroxysmal supraventricular tachycardia) I47.1 Hypothyroidism E03.9 GERD (gastroesophageal reflux disease) K21.9 Depression F32.A Diarrhea R19.7 Urinary tract infection N39.0; R31.9 Hematuria presence: with hematuria Urinary tract infection type: site unspecified (14) Urinary tract infection Hematuria presence: with hematuria Urinary tract infection type: site unspecified Qualified Code(s): N39.0 - Urinary tract infection, site not specified; R31.9 - Hematuria, unspecified
[2022-07-19] MEDS: PARoxetine HCL 10 MG TAB PO SCH (20:32)
[2022-07-20 06:22] LABS: Hematocrit (blood only) 26.1 % (42.0-52.0); Hemoglobin 8.6 g/dl (14.0-18.0); Mean Corpuscular Hemoglobin 35.1 pg (25.0-34.0); Mean Corpuscular Volume 106.5 fL (80.0-100.0); Mean Platelet Volume 9.2 fL (9.4-12.4); Platelet Count 51 K/uL (130-400); RDW Coefficient of Variation 19.8 % (11.5-14.5); RDW Standard Deviation 77.3 fL (36.4-46.3); Red Blood Count 2.45 M/uL (4.70-6.10); White Blood Count 4.09 K/ul (4.8-10.8)
[2022-07-20 06:38] LABS: Albumin Globulin Ratio 1.7 (0.9-2); Albumin Level 3.7 gm/dl (3.4-5.0); BUN Creatinine Ratio 10.6 (10-20); Bilirubin,Total 3.2 mg/dl (0.2-1.0); Calcium 9.7 mg/dl (8.6-10.3); Creatinine Clr Calc Pharmacy 43.2 ml/min; Est GFR (African American) 41.3 ml/min; Est GFR (Non-African American) 35.7 ml/min; Globulin 2.2 gm/dl (2.5-4.0); Magnesium 1.6 mg/dl (1.7-2.4); Potassium 3.7 mmol/L (3.5-5.1); Total Protein 5.9 gm/dl (6.0-8.3)
[2022-07-20 06:51] LABS: INR 2.1 (0.9-1.1); Prothrombin Time 21.9 Seconds (9.0-12.0)
[2022-07-20] MEDS: MAGNESIUM SULFATE / D5W 1 GM/100 ML BAG IV SCH ×2 (07:54→09:48)
[2022-07-20] MEDS: MIDODRINE HCL 10 MG TAB PO SCH ×3 (07:55→16:10)
[2022-07-20] MEDS: VITAMIN B COMPLEX TAB PO SCH (07:55)
[2022-07-20] MEDS: SPIRONOLACTONE 25 MG TAB PO SCH ×2 (07:55→16:11)
[2022-07-20] MEDS: PANTOprazole 40 MG TAB PO SCH ×2 (07:55→20:42)
[2022-07-20] MEDS: FUROSEMIDE INJ 20 MG/2 ML VIAL IV SCH (07:55)
[2022-07-20] MEDS: rifAXIMin 550 MG TABLET PO SCH ×2 (07:55→20:42)
[2022-07-20] MEDS: CHOLECALCIFEROL 1,000 UNITS 25 MCG TAB PO SCH (07:56)
[2022-07-20] MEDS: CHOLESTYRAMINE LIGHT 4 GM PKT PO SCH (07:56)
[2022-07-20] MEDS: SUCRALFATE 1 GM/10 ML UDC PO SCH ×4 (07:56→20:42)
--- NOTE | 2022-07-20 08:41 | Nephrology Progress Note ---
Date of Service July 20, 2022 Assessment & Plan (1) Acute kidney injury superimposed on chronic kidney disease: Plan: * COLLIN due to 3rd spacing of volume and poor renal perfusion - resolved. Renal function is back to baseline * Patient is nonoliguric. Electrolyte balance is acceptable * Net -1600 cc diuresis overnight, net -6.2 L since admission * s/p 2.7 L paracentesis 07/17/22 * Serum albumin has corrected following SPA infusion * Continue Spironolactone 50 mg po BID * LE swelling has resolved * Will convert from Furosemide to Bumex 1 mg po BID * Monitor UO, volume status and kidney function (2) CKD (chronic kidney disease), stage III: Plan: * Baseline creatinine 1.5-2.0 mg/dL (3) Anemia: Plan: * Anemia of CKD and history of GAVE/portal gastropathy. No signs of active GI bleeding reported * Iron saturation 40%, ferritin 144. No acute indication for IV iron therapy at this time * Hgb 8.6 today. Will provide Epogen 10,000 units SQ x1 today * EGD 07/18/22 revealed congestive gastropathy. No active bleeding (4) Abdominal pain: Plan: * Stool PCR panel was negative * 07/17/22 Peritoneal fluid culture was negative * Discomfort improved following 07/17/22 paracentesis (5) Decompensated hepatic cirrhosis: Plan: * Transplant evaluation has been initiated through [facility] [facility]. History of HE, EV, and ascites. No prior history of SBP. Admission and Anticipated Discharge Date Admission Date: July 15, 2022 Subjective Mr. Quiñonez was evaluated in his hospital room this morning. He reports that his abdominal discomfort/distention and LE swelling are markedly improved. He has been ambulating in the hallway Review of Systems Constitutional: no fever Eyes: no problem reported Ear, Nose, Mouth, Throat: no problem reported Respiratory: no cough and no dyspnea Cardiovascular: no chest pain Gastrointestinal: no abdominal pain, no nausea, no vomiting and no diarrhea/loose stools Genitourinary: no hematuria Physical Exam Constitutional: not in distress Eyes: PERRL, conjunctivae normal, anicteric sclerae ENMT: external ear and nose normal, oropharynx normal Neck: trachea midline, no thyromegaly Respiratory: normal respiratory effort, lungs clear to auscultation Cardiovascular: Rate/Rhythm: regular rate and regular rhythm Extremities: no edema Gastrointestinal (Abdomen): Inspection/Auscultation: abdomen not distended Percussion/Palpation: abdomen soft; abdomen nontender Neurologic: Speech / Cognition: normal speech and normal cognition Results & Data Vital Signs (Past 12 Hours) Vital Signs Temp Pulse Pulse Resp BP BP Pulse Ox 07/20/22 08:20 36.5 C 79 18 118/67 96 07/20/22 03:01 36.6 C 80 18 118/66 98 07/19/22 22:18 71 07/19/22 23:12 36.6 C 78 18 104/56 L 96 O2 Del Method 07/20/22 08:20 Room Air 07/20/22 03:01 Room Air 07/19/22 22:18 07/19/22 23:12 Room Air Laboratory Results Laboratory Tests 07/20/22 07/20/22 05:42 05:42 WBC 4.09 L Hgb 8.6 L Hct 26.1 L Plt Count 51 L Sodium 139 Potassium 3.7 Chloride 99 Carbon Dioxide 35 H BUN 20 Creatinine 1.89 H Glucose 105 H Total Bilirubin 3.2 H AST 20 ALT 6 L Alkaline Phosphatase 45 Albumin 3.7 PG Care Time/CCT Total # of Minutes Spent Total Time Spent with Patient: Total time spent is greater than 50% in coordination of care (as documented) at patient's floor/unit and/or counseling patient: Coding Level of Care Code 80061 SUB INP/OBS CARE 3/50MIN Diagnoses Acute kidney injury superimposed on chronic kidney disease N17.9; N18.9 CKD (chronic kidney disease), stage III N18.3 Anemia D64.9 Abdominal pain R10.9 Decompensated hepatic cirrhosis K72.90; K74.60
[2022-07-20] MEDS ORDERED: EPOETIN ALFA 10,000 UNITS/ML VIAL SQ ONE (09:38)
[2022-07-20] MEDS: cefTRIAXone SODIUM 2,000 MG in DEXTROSE 5% 50 ML IV SCH (12:10)
[2022-07-20] MEDS: BUMETANIDE 1 MG TAB PO SCH (16:10)
--- NOTE | 2022-07-20 19:07 | Hospitalist Progress Note ---
Date of Service July 20, 2022 Assessment & Plan (1) Upper GI bleeding: Plan: resolved has not recurred H/H stable once again today s/p EGD 07/18 by [facility] - no active bleeding seen. Stable esophageal varices and stable portal gastropathy. No new areas of bleeding. resumed low salt diet today and tolerated such w/o difficulty CBC am for stability. Cont BID PPI. Continue carafate qid. Cont IV rocephin prophylaxis but stop tomorrow am. (2) Acute blood loss anemia: Plan: 2nd to #1. s/p 2 units of PRBCs this admission. Hb stable today. repeat cbc am. (3) Anasarca: Plan: MUCH IMPROVED s/p IV lasix while here. Lasix stopped --> transitioned to PO bumex 1mg BID per nephrology. Cont aldactone BID. Anasarca secondary to decompensated liver cirrhosis Cirrhosis is 2nd to SERRANO He is followed by Dr Espitia - Hepatology - at [facility] in [place] Appreciate [facility] GI consultation here as well as [facility] [place]ph[place] assistance for diuretic management 07/17/22 -- s/p paracentesis - 2.7 liters of fluid obtained - cell counts not c/w SBP; cultures negative remains on midodrine - increased such to 10mg TID due to low or low-normal BPs BPs improved INR again today 2.1 -- was 1.4 at admission; no response to vitamin K overnight repeat INR and LFTs am for stability (4) Abdominal pain: Plan: resolved suspect it was 2nd to portal gastropathy tolerating diet cont PPI bid cont carafate qid (had been BID) (5) 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: Plan: advanced liver disease MELD ranging 20 to 25 this admission Decompensation/volume overload -- continue Lasix, Aldactone Continue rifaximin BID Resume lactulose in am tomorrow Fortunately no signs of hepatic encephalopathy Cont midodrine 10mg TID Again follows with [facility] GI in [place] - Dr. Espitia Previous EGDs with portal hypertensive gastropathy, esophageal varices, etc. EGD this week with stable esophageal varices & portal gastropathy -- no new findings (6) Acute kidney injury superimposed on chronic kidney disease: Plan: Cr at 2.38 on admission, baseline appears to be close to 1.9-2.0 CrCl at baseline 40s Cr 1.89 today appreciate nephrology assistance with diuretics, etc BMP am (7) Pancytopenia: Plan: Secondary to liver cirrhosis Acute on chronic anemia - acute component was due to blood loss, likely upper GI bleeding as he had seen melena stools early in admission CBC again in am (8) Hyponatremia: Plan: Normal at 139 today was 133 at admission 2nd to volume overload from decompensated cirrhosis BMP AM (9) PSVT (paroxysmal supraventricular tachycardia): Plan: h/o tele with episodes of sinus tach only with activity; no SVT or other dysrhythmia was on coreg up until 12/2021 but d/c due to hypotension consider repeat beta chinedu but watch for now (10) Hypothyroidism: Plan: Continue levothyroxine TSH was normal in 03/2022 (11) GERD (gastroesophageal reflux disease): Plan: Continue protonix and carafate (12) Depression: Plan: Continue paroxetine (13) Diarrhea: Plan: Stool studies and C. diff negative Started cholestyramine once daily by [facility] Diarrhea improved with the questran Would not continue at discharge (14) Urinary tract infection: Plan: suspected, but urine cx negative completed course IV rocephin Plan son updated by phone this evening likely d/c home tomorrow if all labs stable Admission and Anticipated Discharge Date Admission Date: July 15, 2022 Subjective patient feels "great" he has been walking the hallways independently without limitation, dizziness, or dyspnea on monitor he has sinus tachy with HR 140-150 with walking, but the HR quickly drops to <100 with rest he has no chest pain with walking eating well no abd pain had 3 stools today -- brown, no melena, no BRBPR hoping for d/c tomorrow he is pleased with how he is doing Review of Systems Review of Systems: gen - no fevers, no chills, good appetite cv - no orthopnea; edema improved pulm - no dyspnea or SHAW or cough GI - no N/V Physical Exam Physical Exam: gen - NAD, looks great skin - pallor, no rash mouth - MMM neck - no JVD heart - RRR, s1 s2 lungs - CTA b/l abd - soft, NT, BS+, no hepatomegaly, ND; prior paracentesis site healed ext - trace edema b/l; pulses 2+ b/l psych - a/o x 3 Results & Data Results & Data Vital Signs (Past 12 Hours) Vital Signs Temp Pulse Pulse Resp BP Pulse Ox O2 Del Method 07/20/22 16:00 80 07/20/22 11:52 36.8 C 73 18 107/62 96 Room Air 07/20/22 09:16 79 07/20/22 08:20 36.5 C 79 18 118/67 96 Room Air Laboratory Results Laboratory Results - last 24 hr 07/20/22 07/20/22 07/20/22 05:42 05:42 06:04 WBC 4.09 L RBC 2.45 L Hgb 8.6 L Hct 26.1 L MCV 106.5 H MCH 35.1 H MCHC 33.0 RDW Std Deviation 77.3 H RDW Coeff of Miguel 19.8 H Plt Count 51 L MPV 9.2 L PT 21.9 H INR 2.1 H Sodium 139 Potassium 3.7 Chloride 99 Carbon Dioxide 35 H Anion Gap 5 BUN 20 Creatinine 1.89 H Est Cr Clr Drug Dosing 43.2 Est GFR ( Amer) 41.3 Est GFR (Non-Af Amer) 35.7 BUN/Creatinine Ratio 10.6 Glucose 105 H Calcium 9.7 Magnesium 1.6 L Total Bilirubin 3.2 H AST 20 ALT 6 L Alkaline Phosphatase 45 Total Protein 5.9 L Albumin 3.7 Globulin 2.2 L Albumin/Globulin Ratio 1.7 PG Care Time/CCT Total # of Minutes Spent Total Time Spent with Patient: Total time spent is greater than 50% in coordination of care (as documented) at patient's floor/unit and/or counseling patient: Coding Level of Care Code 03795 SUB INP/OBS CARE 2/35MIN Diagnoses Upper GI bleeding K92.2 Acute blood loss anemia D62 Anasarca R60.1 Abdominal pain R10.9 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 K75.81; K74.60 Acute kidney injury superimposed on chronic kidney disease N17.9; N18.9 Pancytopenia D61.818 Hyponatremia E87.1 PSVT (paroxysmal supraventricular tachycardia) I47.1 Hypothyroidism E03.9 GERD (gastroesophageal reflux disease) K21.9 Depression F32.A Diarrhea R19.7 Urinary tract infection N39.0; R31.9 Hematuria presence: with hematuria Urinary tract infection type: site unspecified (14) Urinary tract infection Hematuria presence: with hematuria Urinary tract infection type: site unspecified Qualified Code(s): N39.0 - Urinary tract infection, site not specified; R31.9 - Hematuria, unspecified
[2022-07-20] MEDS: PARoxetine HCL 10 MG TAB PO SCH (20:43)
[2022-07-21 06:17] LABS: Hematocrit (blood only) 25.5 % (42.0-52.0); Hemoglobin 8.5 g/dl (14.0-18.0); Mean Corpuscular Hemoglobin 35.7 pg (25.0-34.0); Mean Corpuscular Hgb Conc 33.3 g/dL (32.0-36.0); Mean Corpuscular Volume 107.1 fL (80.0-100.0); Mean Platelet Volume 9.5 fL (9.4-12.4); Platelet Count 52 K/uL (130-400); RDW Coefficient of Variation 19.6 % (11.5-14.5); RDW Standard Deviation 76.5 fL (36.4-46.3); Red Blood Count 2.38 M/uL (4.70-6.10)
[2022-07-21 06:34] LABS: INR 1.9 (0.9-1.1); Prothrombin Time 20.2 Seconds (9.0-12.0)
[2022-07-21 06:48] LABS: Albumin Level 3.6 gm/dl (3.4-5.0); Bilirubin,Total 2.7 mg/dl (0.2-1.0)
[2022-07-21 06:55] LABS: Albumin Globulin Ratio 1.6 (0.9-2); BUN Creatinine Ratio 12.7 (10-20); Est GFR (African American) 39.3 ml/min; Est GFR (Non-African American) 33.9 ml/min; Globulin 2.3 gm/dl (2.5-4.0); Total Protein 5.9 gm/dl (6.0-8.3)
[2022-07-21] MEDS: SPIRONOLACTONE 25 MG TAB PO SCH (07:50)
[2022-07-21] MEDS: VITAMIN B COMPLEX TAB PO SCH (07:52)
[2022-07-21] MEDS: PANTOprazole 40 MG TAB PO SCH (07:53)
[2022-07-21] MEDS: BUMETANIDE 1 MG TAB PO SCH (07:54)
[2022-07-21] MEDS: MIDODRINE HCL 10 MG TAB PO SCH ×2 (07:56→12:18)
[2022-07-21] MEDS: CHOLECALCIFEROL 1,000 UNITS 25 MCG TAB PO SCH (07:57)
[2022-07-21] MEDS: SUCRALFATE 1 GM/10 ML UDC PO SCH ×2 (07:58→12:19)
[2022-07-21] MEDS: rifAXIMin 550 MG TABLET PO SCH (07:58)
--- NOTE | 2022-07-21 11:24 | Discharge Summary ---
Date of Service July 21, 2022 Admission HPI Per Admitting Provider EGD showed portal HTN gastropathy as the likely source of his anemia and intermittent black stools. Management is PPI, Carafate and Iron therapy. Follow up as OP with Hepatology clinic. Management of his diuresis per Nephrology. Recall GI if needed. Discharge Exam gen - NAD, looks great skin - pallor, no rash mouth - MMM neck - no JVD heart - RRR, s1 s2 lungs - CTA b/l abd - soft, NT, BS+, no hepatomegaly, ND; prior paracentesis site healed ext - trace edema b/l; pulses 2+ b/l psych - a/o x 3 Discharge Data Allergies Allergy/AdvReac Type Severity Reaction Status Date / Time tamsulosin Allergy Intermediate HIVES Verified 07/12/22 10:29 etanercept [From Enbrel] AdvReac Intermediate Increased Verified 07/12/22 10:29 infections Consultations 07/13/22 13:20 ED Decision to Admit Stat 07/13/22 14:17 Consult Gastroenterology Routine 07/13/22 14:19 Consult Nephrology Routine Procedures Performed Operation Date: 07/18/22 16:30 Actual Procedures p Esophagogastroduodenoscopy - Elvin Carreno MD Ordered Studies 07/13/22 11:04 CT abd pelvis wo con Stat 07/17/22 14:53 IR paracentesis abd w/img US Routine Hospital Course (1) Upper GI bleeding: resolved has not recurred H/H stable once again today s/p EGD 07/18 by [facility] - no active bleeding seen. Stable esophageal varices and stable portal gastropathy. No new areas of bleeding. resumed low salt diet today and tolerated such w/o difficulty CBC am for stability. Cont BID PPI. Continue carafate qid. Cont IV rocephin prophylaxis but stop tomorrow am. (2) Acute blood loss anemia: 2nd to #1. s/p 2 units of PRBCs this admission. Hb stable today. repeat cbc am. (3) Anasarca: MUCH IMPROVED s/p IV lasix while here. Lasix stopped --> transitioned to PO bumex 1mg BID per nephrology. Cont aldactone BID. Anasarca secondary to decompensated liver cirrhosis Cirrhosis is 2nd to SERRANO He is followed by Dr Espitia - Hepatology - at [facility] in [place] Appreciate [facility] GI consultation here as well as [facility] Nephrology assistance for diuretic management 07/17/22 -- s/p paracentesis - 2.7 liters of fluid obtained - cell counts not c/w SBP; cultures negative remains on midodrine - increased such to 10mg TID due to low or low-normal BPs BPs improved INR again today 2.1 -- was 1.4 at admission; no response to vitamin K overnight repeat INR and LFTs am for stability (4) Abdominal pain: resolved suspect it was 2nd to portal gastropathy tolerating diet cont PPI bid cont carafate qid (had been BID) (5) 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: advanced liver disease MELD ranging 20 to 25 this admission Decompensation/volume overload -- continue Lasix, Aldactone Continue rifaximin BID Resume lactulose in am tomorrow Fortunately no signs of hepatic encephalopathy Cont midodrine 10mg TID Again follows with [facility] in [place] - Dr. Espitia Previous EGDs with portal hypertensive gastropathy, esophageal varices, etc. EGD this week with stable esophageal varices & portal gastropathy -- no new findings (6) Acute kidney injury superimposed on chronic kidney disease: Cr at 2.38 on admission, baseline appears to be close to 1.9-2.0 CrCl at baseline 40s Cr 1.89 today appreciate nephrology assistance with diuretics, etc BMP am (7) Pancytopenia: Secondary to liver cirrhosis Acute on chronic anemia - acute component was due to blood loss, likely upper GI bleeding as he had seen melena stools early in admission CBC again in am (8) Hyponatremia: Normal at 139 today was 133 at admission 2nd to volume overload from decompensated cirrhosis BMP AM (9) PSVT (paroxysmal supraventricular tachycardia): h/o tele with episodes of sinus tach only with activity; no SVT or other dysrhythmia was on coreg up until 12/2021 but d/c due to hypotension consider repeat beta chinedu but watch for now (10) Hypothyroidism: Continue levothyroxine TSH was normal in 03/2022 (11) GERD (gastroesophageal reflux disease): Continue protonix and carafate (12) Depression: Continue paroxetine (13) Diarrhea: Stool studies and C. diff negative Started cholestyramine once daily by [facility] Diarrhea improved with the questran Would not continue at discharge (14) Urinary tract infection: suspected, but urine cx negative completed course IV rocephin Plan son updated by phone this evening likely d/c home tomorrow if all labs stable Discharge Plan Discharge Items Patient Disposition: Home - Self-Care Reason For Visit: SWELLING, ABDOMINAL DISCOMFORT Discharge Diagnosis: 1. swelling/fluid overload - due to cirrhosis - MUCH improved 2. abdominal discomfort - resolved, likely due to stomach irritation from your cirrhosis 3. ascites - paracentesis performed - no evidence of infection in the abdominal fluid 4. anemia Follow-up/Referrals: Fiorella Castellano DO [Primary Care Provider] - Stand-Alone Forms: My [facility] [employer], Smoking Cessation Medications and DC Order Prescriptions: No Action cholecalciferol (vitamin D3) 50 mcg (2,000 unit) capsule 50 mcg PO QAM Qty: 90 3RF lactulose 10 gram/15 mL solution 20 g PO BID Qty: 946 3RF Humira(CF) Pen 40 mg/0.4 mL pen injector kit 40 mg subcut Q14D Qty: 2 5RF Rx Instructions: take in the morning every 14 days Xifaxan 550 mg tablet 550 mg PO BID Qty: 60 5RF pantoprazole 40 mg tablet,delayed release (DR/EC) 40 mg PO BID Qty: 60 0RF spironolactone 25 mg tablet 50 mg PO QAM Qty: 180 3RF furosemide 40 mg tablet 40 mg PO BID Qty: 180 3RF vitamin B complex Tablet 1 tab PO DAILY midodrine 5 mg tablet 5 mg PO TID Qty: 180 3RF Rx Instructions: do not give last dose of day after 8M or within 4 hrs of bedtime paroxetine HCl 10 mg tablet 10 mg PO QPM ondansetron HCl 4 mg tablet 4 mg PO Q8H PRN (Reason: Nausea And Vomiting) Qty: 30 1RF darbepoetin coretta in polysorbat 100 mcg/0.5 mL syringe 100 mcg subcut .COMPLEX PRN (Reason: NEEDED) Rx Instructions: 100 mcg subcutaneously Q weekly until Hgb >9. Then resume, Q other week. Hold for Hgb >10.; sucralfate 100 mg/mL suspension 10 ml PO BID Admission Data Admit Date/Time: 07/15/22 09:20 Attending Provider: Jonny Briscoe Admit Provider: Thaddeus Taylor Primary Care Provider: Fiorella Castellano Other Providers: Thaddeus Taylor ; Finn Martinez ; Sara Cloud ; Heath rIaheta [facility] Other Interventions: Discharge Summary Assessment (RN) Last Done: 07/18/22 11:34 Coding Diagnoses Upper GI bleeding K92.2 Acute blood loss anemia D62 Anasarca R60.1 Abdominal pain R10.9 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 K75.81; K74.60 Acute kidney injury superimposed on chronic kidney disease N17.9; N18.9 Pancytopenia D61.818 Hyponatremia E87.1 PSVT (paroxysmal supraventricular tachycardia) I47.1 Hypothyroidism E03.9 GERD (gastroesophageal reflux disease) K21.9 Depression F32.A Diarrhea R19.7 Urinary tract infection N39.0; R31.9 Hematuria presence: with hematuria Urinary tract infection type: site unspecified
--- NOTE | 2022-07-21 11:43 | Nephrology Progress Note ---
Date of Service July 21, 2022 Assessment & Plan (1) Acute kidney injury superimposed on chronic kidney disease: Plan: * COLLIN due to 3rd spacing of volume and poor renal perfusion - resolved. Renal function is back to baseline * Patient is nonoliguric. Electrolyte balance is acceptable * Weight 105.6 kg on standing scale this AM * s/p 2.7 L paracentesis 07/17/22 * Serum albumin has corrected following SPA infusion * Continue Spironolactone 50 mg po BID * Resume Furosemide 40 mg PO BID at discharge * Follow up in with me in the nephrology clinic next week as scheduled (2) CKD (chronic kidney disease), stage III: Plan: * Baseline creatinine 1.5-2.0 mg/dL (3) Anemia: Plan: * Anemia of CKD and history of GAVE/portal gastropathy. No signs of active GI bleeding reported * Iron saturation 40%, ferritin 144. No acute indication for IV iron therapy at this time * Hgb 8.6 today. Epogen 10,000 units SQ x1 provided yesterday * EGD 07/18/22 revealed congestive gastropathy. No active bleeding (4) Abdominal pain: Plan: * Stool PCR panel was negative * 07/17/22 Peritoneal fluid culture was negative * Discomfort improved following 07/17/22 paracentesis (5) Decompensated hepatic cirrhosis: Plan: * MELD 24. Transplant evaluation has been initiated through [facility]. History of HE, EV, and ascites. No prior history of SBP. * Midodrine 10 mg TID Admission and Anticipated Discharge Date Admission Date: July 15, 2022 Subjective No acute events overnight. Spike feels well this morning. Fluid retention markedly improved. Ambulating in hallways. Noted sinus tachycardia with exertion. Spike denies chest pain, palpitations, dyspnea, lightheadedness, dizziness, syncope, or presyncope. His strength has improved. He plans to return home today. I reviewed the discharge plan with Dr. Briscoe this morning. Review of Systems Review of Systems: All systems reviewed & are unremarkable except as noted in HPI & below Physical Exam Constitutional: well developed, + obese and comfortable; no acute distress Eyes: + anicteric sclerae Neck: normal visual inspection and trachea midline Respiratory: normal respiratory effort Auscultation: lungs clear to auscultation bilaterally Cardiovascular: Rate/Rhythm: regular rate Heart Sounds: normal S1 and normal S2 Extremities: + edema (markedly improved) Gastrointestinal (Abdomen): Inspection/Auscultation: + abdomen distended Percussion/Palpation: abdomen soft and + ascites; abdomen nontender, no guarding and abdomen not rigid Musculoskeletal: Extremities: no cyanosis and no clubbing Skin: normal turgor; no jaundice Neurologic: Motor/Sensory: no tremor and no asterixis Psychiatric: Orientation: alert and oriented x 3 Results & Data Vital Signs (Past 12 Hours) Vital Signs Temp Pulse Pulse Pulse Resp BP Pulse Ox 07/21/22 10:48 118 H 07/21/22 08:00 62 07/21/22 08:42 36.6 C 87 18 100/60 97 07/21/22 07:32 36.5 C 82 18 109/68 96 07/21/22 03:48 36.9 C 81 18 112/66 96 O2 Del Method 07/21/22 10:48 07/21/22 08:00 07/21/22 08:42 Room Air 07/21/22 07:32 Room Air 07/21/22 03:48 Room Air Laboratory Results Laboratory Results - last 24 hr 07/21/22 07/21/22 07/21/22 05:37 05:37 05:37 WBC 4.70 L RBC 2.38 L Hgb 8.5 L Hct 25.5 L MCV 107.1 H MCH 35.7 H MCHC 33.3 RDW Std Deviation 76.5 H RDW Coeff of Miguel 19.6 H Plt Count 52 L MPV 9.5 PT 20.2 H INR 1.9 H Sodium 137 Potassium 4.0 Chloride 98 Carbon Dioxide 34 H Anion Gap 5 BUN 25 H Creatinine 1.97 H Est Cr Clr Drug Dosing 43.0 Est GFR ( Amer) 39.3 Est GFR (Non-Af Amer) 33.9 BUN/Creatinine Ratio 12.7 Glucose 119 H Calcium 10.0 Magnesium Total Bilirubin 2.7 H AST 20 ALT 6 L Alkaline Phosphatase 45 Total Protein 5.9 L Albumin 3.6 Globulin 2.3 L Albumin/Globulin Ratio 1.6 07/21/22 05:37 WBC RBC Hgb Hct MCV MCH MCHC RDW Std Deviation RDW Coeff of Miguel Plt Count MPV PT INR Sodium Potassium Chloride Carbon Dioxide Anion Gap BUN Creatinine Est Cr Clr Drug Dosing Est GFR ( Amer) Est GFR (Non-Af Amer) BUN/Creatinine Ratio Glucose Calcium Magnesium 1.9 Total Bilirubin AST ALT Alkaline Phosphatase Total Protein Albumin Globulin Albumin/Globulin Ratio PG Care Time/CCT Total # of Minutes Spent Total Time Spent with Patient: Total time spent is greater than 50% in coordination of care (as documented) at patient's floor/unit and/or counseling patient: Coding Level of Care Code 59316 SUB INP/OBS CARE 3/50MIN Diagnoses Acute kidney injury superimposed on chronic kidney disease N17.9; N18.9 CKD (chronic kidney disease), stage III N18.3 Anemia D64.9 Abdominal pain R10.9 Decompensated hepatic cirrhosis K72.90; K74.60
== END 2022-07-21 14:00 | disposition home health service (06) | DRG 433 ==
LOC: 2N 10:30 → ED 10:30 → SUATTDRO 13:43 → 2N 15:01 → SUATTDRO 07-15 09:20

== ENCOUNTER 2022-08-13 12:08 | Inpatient (IN) ==
[2022-08-13] MEDS ORDERED: SODIUM CHLORIDE 0.9% 1000ML 500 ML IV ONE ×2 (12:36→13:55)
--- NOTE | 2022-08-13 12:40 | Emergency Department Note ---
Impression & Plan Acute UTI (urinary tract infection), Sepsis ED Provider Note Name: SHMUEL KNOTT Age: 67 Sex: M Arrives Via: Ambulance Informant: Patient, [facility] ED Provider: Anish Carreon MD Chief Complaint: Illness Impression: As per Impression Medical Decision Makin-year-old gentleman with CKD, cirrhosis, multiple other past medical history arrives for evaluation of worsening fatigue, chills and body aches. Patient does note a mild cough and some shortness of breath along with an episode of chest pain this morning. He was seen by his home health nurse who noted a mildly low blood pressure and he was given Tylenol. On examination patient is tachycardic, afebrile. He does have some mild lower back tenderness palpation as well as abdominal tenderness palpation which he states is chronic. He does not have peritonitis by examination at this time. Laboratory evaluation does reveal elevated LFTs mildly above his baseline but not overtly concerning at this time. He has chronic renal disease and creatinine is at its baseline. His initial lactic acid is mildly elevated which is consistent with his illness as well as his liver dysfunction. Urinalysis did return with bacteria and white blood cell count without any significant amount of epithelials. I think it is reasonable to treat this as UTI sepsis. He did initially been given Zosyn for empiric treatment. He was given 2 boluses of 500 mL IV fluids normal saline. We will hold off on a 30/kg bolus as he is not hypotensive his lactate is not greater than 4 and he has a history of CKD and fluid overload. Hospitalist consulted for further management. Patient has no neurologic deficits do not feel he needs emergent imaging of the low back as he makes it very clear that his low back pain is chronic and on examination it is really just tenderness palpation over the lumbar paraspinal muscles. I feel epidural abscess is unlikely given his history. Similar for his abdominal pain he has no true peritonitis and he makes it clear that his abdominal pain is chronic. In the setting of likely UTI as cause we will hold off on imaging at this time. Prior Medical Record and Triage/Nursing Notes reviewed by Me External chart reviewed by me including previous hospitalization record Differentials:Viral syndrome, covid/flu, pneumonia, intraabdominal infection, meningitis, urinary tract infection, sepsis, bacteremia, as well as other pathologies. Vital Signs: reviewed and remarkable for fever, tachy Interventions: Normal saline bolus 500 mL IV x 2, Zosyn 4.5 g IV, morphine IV, Zofran IV Patient was not given 30 mg/kg IV fluids as he has history of CKD and significant concerns for fluid overload thus was rather given a normal saline 500 mL bolus initially and on repeat evaluation tolerated that thus the second 500 mL normal saline bolus Labs:Reviewed and remarkable for mildly elevated lactic acid, low magnesium Imagin view chest x-ray as per my interpretation reveals no evidence of pneumonia, pneumothorax, effusion EKG:As per my interpretation. Indication infectious etiology. Sinus tach at 117 bpm no ectopy no ischemia. When compared to EKG of July 13, 2022 there is no significant change. Other than rate Cardiac/Tele Monitoring: Cardiac Monitoring: An Order was placed for continuous cardiac monitoring. The monitor shows a rate of 117 with a sinus tachycardic rhythm. Consults:Hospitalist Plan: Disposition:Hospitalization. Condition: Good History of Present Illness:67-year-old gentleman arrives for evaluation of illness. Patient notes that for the last 6 to 12 hours he just has not been feeling well. Associated with cough and mild shortness of breath. This morning he noted some substernal chest pressure. His home health nurse checked his blood pressure and it was 100/60 which is a bit low for him and also gave him some Tylenol. Patient notes this has been associated with exacerbation of his chronic low back pain and abdominal pains. He states that they are not specifically changed other than just a bit worse than typical. He denies any nausea, vomiting, weakness, urinary/bowel symptoms. He notes chronic swelling in his legs and issues with his albumin. No recent antibiotics. Patient is currently on a liver transplant list due to SERRANO. Past History:See Below Home Medications:See Below Allergies:Flomax and Enbrel Vitals:Blood Pressure: 115/72, Pulse 116, RR 22, T 38.1C, O2 97% on RA Physical Exam: GENERAL: Patient is unwell appearing and in mild distress. EYES: No scleral icterus, unremarkable pupils. ENT: Mucous membranes dry, no nasal congestion. NECK: No masses appreciated, nomeningismus, trachea is midline. RESPIRATORY: Moderate dyspnea with mild crackles throughout. CARDIOVASCULAR: Tachycardia.No murmurs, rubs, gallops appreciated. GASTROINTESTINAL: Abdomen soft, non-tender, no peritonitis.Bowel sounds positive.No masses appreciated. BACK: No midline tenderness, no CVA tenderness, TTP bilateral lumbar paraspinal muscles EXTREMITIES: Normal motion all extremities, no cyanosis, ++edema. NEUROLOGIC: Alert and oriented, PSYCH: Appropriate GCS: 15 ED Course: Times/Reassessments: Patient tolerated initial 500 mL bolus fluids thus a second bolus was given still a bit tachycardic. He is comfortable plan for hospitalization. He was given a small dose of IV pain medications for his chronic pain as well as some nausea medications Anish Carreon MD Past Med/Surg History Medical History Anemia Ascites Calculus of kidney Cervical disc disease CKD (chronic kidney disease), stage III Depression Esophageal varices determined by endoscopy GAVE (gastric antral vascular ectasia) Per records GERD (gastroesophageal reflux disease) History of GI bleed discharged from [facility] 06/10/22: borderline hemorrhagic shock-upper GI bleed suspected to be d/t GAVE-received 1 unit of PRBC History of herniated intervertebral disc lumbar area History of SCC (squamous cell carcinoma) of skin S/p removal- follows with derm Hx of blood clots 06/2021 @ [facility]- pt reports blood clot in left arm around IV site after being discharged from hospital- no meds due to current blood loss issue- warm compresses to site per pt- 2 ultrasounds done - no current issues Hx of upper gastrointestinal hemorrhage recent hospitalization at [facility] 06/07/2022 Hypothyroidism 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 current work-up for planned liver transplant per [facility] transplant clinic records Lumbar disc disease Oral mucositis On mouthwash daily- no recent issues Pancytopenia Portal hypertensive gastropathy Post-traumatic urethral stricture Psoriasis Psoriatic arthritis PVT (portal vein thrombosis) denies Spinal stenosis EPIDURAL INJECTIONS IN PAST FOR PAIN RELIEF TMJ arthralgia Urinary retention Urinary tract infection Wide-complex tachycardia ON CARDVEDILOL-F/U DR VANESSA LAST VISIT<1 YR AGO Surgical History H/O foot surgery excision of neuroma b/l feet History of appendectomy History of arthroscopy RT KNEE History of cataract surgery RT/LEFT History of cholecystectomy History of esophagogastroduodenoscopy (EGD) last 03/21/22 @ [facility] 02/08/22 Dr. Sara Cloud- EGD- Grade I esophageal varices, Portal hypertensive gastropathy History of herniorrhaphy right inguinal History of lithotripsy History of liver biopsy History of repair of rotator cuff RT/LEFT History of tooth extraction History of urologic surgery Urethral reconstruction 4 years ago at [facility] Nausea and vomiting after administration of anesthetic agent S/P colonoscopy S/P epidural steroid injection S/P orchiectomy Right age 9 for UDT S/P urological surgery (2018) BMG urethroplasty-[facility] Suprapubic catheter AND REMOVAL Family History Grandmother (Maternal) Diabetes Father Renal cancer Mother Aortic aneurysm Denies family history of Ovarian cancer Prostate cancer Myocardial infarction Breast cancer Colorectal cancer Social History Smoking Status: Never smoker Second Hand Exposure: No; Do You Dip or Chew Tobacco: No; Hx Alcohol Use: No Hx Substance Use: No Preferred Language: Azeri Communication Ability: Effective Visual Impairment: No Limitations Hearing Ability: Hard of Hearing Hardwood Floor Installer Required: No Beliefs That Will Affect Care: None marital status: / Current Living Situation: Family Current Living Situation Comment: Lives with son and [id number] current occupational status: retired How many Children do You have: 1 Feels Safe at Home: Yes Safety Concerns: Feels Safe At This Time Diet: low salt Diet Comment: LOW SALT caffeine: Yes during the past year weight has: remained stable Dental Care, Regularly: No Physical Activity Frequency: Other Physical Activity Frequency Comment: does all housework/outside work and cuts wood Seatbelt Use: never Sunscreen Use: No Assistive Devices: Cane and Walker Allergies Allergies Allergy/AdvReac Type Severity Reaction Status Date / Time tamsulosin Allergy Intermediate HIVES Verified 08/13/22 16:20 etanercept [From Enbrel] AdvReac Intermediate Increased Verified 08/13/22 16:20 infections Home Meds Home Medications Medication Instructions Recorded Confirmed vitamin B complex 1 tab PO DAILY 10/23/21 08/13/22 darbepoetin coretta in polysorbat 100 100 mcg subcut .COMPLEX PRN 05/23/22 08/13/22 mcg/0.5 mL in polysorbate NEEDED injection syringe paroxetine HCl 10 mg tablet 10 mg PO QPM 06/21/22 08/13/22 Previous Rx's Medication Instructions Recorded cholecalciferol (vitamin D3) 50 50 mcg PO QAM #90 caps 05/15/21 mcg (2,000 unit) capsule rifaximin 550 mg tablet (Xifaxan) 550 mg PO BID #60 tabs 01/16/22 midodrine 10 mg tablet 10 mg PO TID #90 tabs 07/21/22 spironolactone 50 mg tablet 50 mg PO BID #60 tabs 07/21/22 sucralfate 100 mg/mL oral 10 ml PO ACHS #1,000 mL 07/21/22 suspension ondansetron HCl 4 mg tablet 4 mg PO Q8H PRN Nausea And 08/08/22 Vomiting #30 tabs pantoprazole 40 mg tablet,delayed 40 mg PO BID #60 tabs 08/08/22 release lactulose 10 gram/15 mL oral 20 g (30 mL) PO DAILY #946 mL 08/10/22 solution Results & Data (ED) Vital Signs Vital Signs - 24 hr 08/13/22 12:21 08/13/22 12:57 08/13/22 13:00 Temperature 38.1 C H Temperature Source Oral Pulse Rate 116 H Pulse Rate [Apical] 127 H Pulse Rate from SpO2 Sensor Respiratory Rate 22 24 Respiratory Effort / Characteristics Non-Labored Spontaneous Respiratory Depth Normal Blood Pressure 115/72 Blood Pressure [Left Arm] 112/62 Blood Pressure Mean 86 Blood Pressure Mean [Left Arm] 78 Pulse Oximetry 97 96 96 Oxygen Delivery Method Room Air Room Air Room Air Sepsis Recent Fever Within 48 Hours No Sepsis New/Unexplained Change in Mental Status N/A Sepsis Action Taken by Nursing No Action Required 08/13/22 13:21 08/13/22 13:45 08/13/22 13:52 Temperature Temperature Source Pulse Rate 116 H 113 H 110 H Pulse Rate [Apical] Pulse Rate from SpO2 Sensor 113 H 111 H Respiratory Rate 23 22 Respiratory Effort / Characteristics Respiratory Depth Blood Pressure 111/76 Blood Pressure [Left Arm] Blood Pressure Mean 87 Blood Pressure Mean [Left Arm] Pulse Oximetry 98 93 Oxygen Delivery Method Room Air Room Air Sepsis Recent Fever Within 48 Hours Sepsis New/Unexplained Change in Mental Status Sepsis Action Taken by Nursing 08/13/22 14:07 08/13/22 13:54 08/13/22 15:09 Temperature 37.6 C H Temperature Source Oral Pulse Rate 112 H 110 H Pulse Rate [Apical] Pulse Rate from SpO2 Sensor 113 H 110 H Respiratory Rate 24 21 Respiratory Effort / Characteristics Respiratory Depth Blood Pressure 115/67 130/54 L Blood Pressure [Left Arm] Blood Pressure Mean 83 79 Blood Pressure Mean [Left Arm] Pulse Oximetry 96 97 Oxygen Delivery Method Room Air Room Air Sepsis Recent Fever Within 48 Hours Sepsis New/Unexplained Change in Mental Status Sepsis Action Taken by Nursing 08/13/22 15:31 08/13/22 15:45 08/13/22 16:00 Temperature Temperature Source Pulse Rate 116 H 118 H 118 H Pulse Rate [Apical] Pulse Rate from SpO2 Sensor Respiratory Rate 19 23 23 Respiratory Effort / Characteristics Respiratory Depth Blood Pressure 118/64 129/79 133/83 Blood Pressure [Left Arm] Blood Pressure Mean 82 95 99 Blood Pressure Mean [Left Arm] Pulse Oximetry Oxygen Delivery Method Sepsis Recent Fever Within 48 Hours Sepsis New/Unexplained Change in Mental Status Sepsis Action Taken by Nursing 08/13/22 16:15 08/13/22 16:30 08/13/22 16:45 Temperature Temperature Source Pulse Rate 123 H 124 H 128 H Pulse Rate [Apical] Pulse Rate from SpO2 Sensor Respiratory Rate 25 H 23 23 Respiratory Effort / Characteristics Respiratory Depth Blood Pressure 150/93 H 162/89 H 151/80 H Blood Pressure [Left Arm] Blood Pressure Mean 112 113 103 Blood Pressure Mean [Left Arm] Pulse Oximetry 96 Oxygen Delivery Method Room Air Sepsis Recent Fever Within 48 Hours Sepsis New/Unexplained Change in Mental Status Sepsis Action Taken by Nursing 08/13/22 17:00 Temperature Temperature Source Pulse Rate 128 H Pulse Rate [Apical] Pulse Rate from SpO2 Sensor Respiratory Rate 21 Respiratory Effort / Characteristics Respiratory Depth Blood Pressure 147/85 H Blood Pressure [Left Arm] Blood Pressure Mean 105 Blood Pressure Mean [Left Arm] Pulse Oximetry 95 Oxygen Delivery Method Room Air Sepsis Recent Fever Within 48 Hours Sepsis New/Unexplained Change in Mental Status Sepsis Action Taken by Nursing Laboratory Data 08/13/22 12:43 08/13/22 12:43 Lab Results 08/13/22 08/13/22 08/13/22 Range/Units 12:37 12:43 12:43 WBC 8.17 (4.8-10.8) K/ul RBC 2.13 L (4.70-6.10) M/uL Hgb 8.0 L (14.0-18.0) g/dl Hct 23.6 L (42.0-52.0) % MCV 110.8 H (80.0-100.0) fL MCH 37.6 H (25.0-34.0) pg MCHC 33.9 (32.0-36.0) g/dL RDW Std Deviation 78.5 H (36.4-46.3) fL RDW Coeff of Miguel 19.4 H (11.5-14.5) % Plt Count 70 L (130-400) K/uL MPV 10.2 (9.4-12.4) fL Immature Gran % (Auto) 0.7 % Neut % (Auto) 81.4 % Lymph % (Auto) 4.3 % Reynolds % (Auto) 11.5 % Eos % (Auto) 1.6 % Baso % (Auto) 0.5 % Neut # (Auto) 6.65 H (1.40-6.50) K/uL Lymph # (Auto) 0.35 L (1.2-3.4) K/uL Reynolds # (Auto) 0.94 H (0.11-0.59) K/uL Eos # (Auto) 0.13 (0-0.50) K/uL Baso # (Auto) 0.04 (0-0.2) K/uL Immature Gran # (Auto) 0.06 (0.01-0.20) K/uL Polychromasia 1+ Macrocytosis Present PT 14.7 H (9.0-12.0) Seconds INR 1.4 H (0.9-1.1) APTT 29.4 (21.0-31.0) Seconds PTT Ratio 1.0 Sodium (136-145) mmol/L Potassium (3.5-5.1) mmol/L Chloride (98-107) mmol/L Carbon Dioxide (21-32) mmol/L Anion Gap (3-11) BUN (6-23) mg/dl Creatinine (0.6-1.4) mg/dl Est Cr Clr Drug Dosing ml/min Est GFR ( Amer) ml/min Est GFR (Non-Af Amer) ml/min BUN/Creatinine Ratio (10-20) Glucose (70-99(Fasting)) mg/dl Lactate (0.4-2.0) mmol/L Calcium (8.6-10.3) mg/dl Magnesium (1.7-2.4) mg/dl Total Bilirubin (0.2-1.0) mg/dl Direct Bilirubin (0-0.2) mg/dl AST (13-39) U/L ALT (7-52) U/L Alkaline Phosphatase (34-104) U/L Ammonia (18-72) umol/L Troponin I High Sens (0-20) pg/ml Total Protein (6.0-8.3) gm/dl Albumin (3.4-5.0) gm/dl Procalcitonin (0-0.5) ng/ml Urine Color Urine Appearance (Clear) Urine pH (4.5-7.5) Ur Specific E[place] (1.000-1.030) Urine Protein (Negative) Urine Glucose (UA) (Negative) Urine Ketones (Negative) Urine Blood (Negative) Urine Nitrite (Negative) Urine Bilirubin (Negative) Urine Urobilinogen (Negative) Ur Leukocyte Esterase (Negative) Urine WBC (Auto) (0-5) /hpf Urine RBC (Auto) (0-4) /hpf U Hyaline Cast (Auto) (0-5) /lpf U Epithel Cells (Auto) (0-5) /lpf Urine Bacteria (Auto) (Negative) SARS-CoV-2 (PCR) (Negative) Enterococc faecium PCR DETECTED A (NotDetected) Influenza Type A (PCR) (Neg) Influenza Type B (PCR) (Neg) RSV (RT-PCR) (Neg) Maurice/B-Vanco Res Genes VRE DETECTED A* (NotDetected) Bld Cult ID Panel PCR See PCR Comment (NotDetected) 08/13/22 08/13/22 08/13/22 Range/Units 12:43 12:43 12:43 WBC (4.8-10.8) K/ul RBC (4.70-6.10) M/uL Hgb (14.0-18.0) g/dl Hct (42.0-52.0) % MCV (80.0-100.0) fL MCH (25.0-34.0) pg MCHC (32.0-36.0) g/dL RDW Std Deviation (36.4-46.3) fL RDW Coeff of Miguel (11.5-14.5) % Plt Count (130-400) K/uL MPV (9.4-12.4) fL Immature Gran % (Auto) % Neut % (Auto) % Lymph % (Auto) % Reynolds % (Auto) % Eos % (Auto) % Baso % (Auto) % Neut # (Auto) (1.40-6.50) K/uL Lymph # (Auto) (1.2-3.4) K/uL Reynolds # (Auto) (0.11-0.59) K/uL Eos # (Auto) (0-0.50) K/uL Baso # (Auto) (0-0.2) K/uL Immature Gran # (Auto) (0.01-0.20) K/uL Polychromasia Macrocytosis PT (9.0-12.0) Seconds INR (0.9-1.1) APTT (21.0-31.0) Seconds PTT Ratio Sodium 132 L (136-145) mmol/L Potassium 4.9 (3.5-5.1) mmol/L Chloride 103 (98-107) mmol/L Carbon Dioxide 26 (21-32) mmol/L Anion Gap 3 (3-11) BUN 27 H (6-23) mg/dl Creatinine 2.10 H (0.6-1.4) mg/dl Est Cr Clr Drug Dosing 40.2 ml/min Est GFR ( Amer) 36.4 ml/min Est GFR (Non-Af Amer) 31.4 ml/min BUN/Creatinine Ratio 12.9 (10-20) Glucose 146 H (70-99(Fasting)) mg/dl Lactate 2.2 H* (0.4-2.0) mmol/L Calcium 10.7 H (8.6-10.3) mg/dl Magnesium 1.4 L (1.7-2.4) mg/dl Total Bilirubin 3.6 H (0.2-1.0) mg/dl Direct Bilirubin 1.3 H (0-0.2) mg/dl AST 36 (13-39) U/L ALT 20 (7-52) U/L Alkaline Phosphatase 167 H (34-104) U/L Ammonia (18-72) umol/L Troponin I High Sens 7.8 (0-20) pg/ml Total Protein 6.0 (6.0-8.3) gm/dl Albumin 2.8 L (3.4-5.0) gm/dl Procalcitonin 0.12 (0-0.5) ng/ml Urine Color Urine Appearance (Clear) Urine pH (4.5-7.5) Ur Specific [place] (1.000-1.030) Urine Protein (Negative) Urine Glucose (UA) (Negative) Urine Ketones (Negative) Urine Blood (Negative) Urine Nitrite (Negative) Urine Bilirubin (Negative) Urine Urobilinogen (Negative) Ur Leukocyte Esterase (Negative) Urine WBC (Auto) (0-5) /hpf Urine RBC (Auto) (0-4) /hpf U Hyaline Cast (Auto) (0-5) /lpf U Epithel Cells (Auto) (0-5) /lpf Urine Bacteria (Auto) (Negative) SARS-CoV-2 (PCR) (Negative) Enterococc faecium PCR (NotDetected) Influenza Type A (PCR) (Neg) Influenza Type B (PCR) (Neg) RSV (RT-PCR) (Neg) Maurice/B-Vanco Res Genes (NotDetected) Bld Cult ID Panel PCR (NotDetected) 08/13/22 08/13/22 08/13/22 Range/Units 12:43 14:05 15:01 WBC (4.8-10.8) K/ul RBC (4.70-6.10) M/uL Hgb (14.0-18.0) g/dl Hct (42.0-52.0) % MCV (80.0-100.0) fL MCH (25.0-34.0) pg MCHC (32.0-36.0) g/dL RDW Std Deviation (36.4-46.3) fL RDW Coeff of Miguel (11.5-14.5) % Plt Count (130-400) K/uL MPV (9.4-12.4) fL Immature Gran % (Auto) % Neut % (Auto) % Lymph % (Auto) % Reynolds % (Auto) % Eos % (Auto) % Baso % (Auto) % Neut # (Auto) (1.40-6.50) K/uL Lymph # (Auto) (1.2-3.4) K/uL Reynolds # (Auto) (0.11-0.59) K/uL Eos # (Auto) (0-0.50) K/uL Baso # (Auto) (0-0.2) K/uL Immature Gran # (Auto) (0.01-0.20) K/uL Polychromasia Macrocytosis PT (9.0-12.0) Seconds INR (0.9-1.1) APTT (21.0-31.0) Seconds PTT Ratio Sodium (136-145) mmol/L Potassium (3.5-5.1) mmol/L Chloride (98-107) mmol/L Carbon Dioxide (21-32) mmol/L Anion Gap (3-11) BUN (6-23) mg/dl Creatinine (0.6-1.4) mg/dl Est Cr Clr Drug Dosing ml/min Est GFR ( Amer) ml/min Est GFR (Non-Af Amer) ml/min BUN/Creatinine Ratio (10-20) Glucose (70-99(Fasting)) mg/dl Lactate 2.0 (0.4-2.0) mmol/L Calcium (8.6-10.3) mg/dl Magnesium (1.7-2.4) mg/dl Total Bilirubin (0.2-1.0) mg/dl Direct Bilirubin (0-0.2) mg/dl AST (13-39) U/L ALT (7-52) U/L Alkaline Phosphatase (34-104) U/L Ammonia (18-72) umol/L Troponin I High Sens (0-20) pg/ml Total Protein (6.0-8.3) gm/dl Albumin (3.4-5.0) gm/dl Procalcitonin (0-0.5) ng/ml Urine Color Yellow Urine Appearance Clear (Clear) Urine pH 6.0 (4.5-7.5) Ur Specific [place] 1.014 (1.000-1.030) Urine Protein Negative (Negative) Urine Glucose (UA) Negative (Negative) Urine Ketones Negative (Negative) Urine Blood Negative (Negative) Urine Nitrite Negative (Negative) Urine Bilirubin Negative (Negative) Urine Urobilinogen Negative (Negative) Ur Leukocyte Esterase 1+ H (Negative) Urine WBC (Auto) >30 H (0-5) /hpf Urine RBC (Auto) 0-4 (0-4) /hpf U Hyaline Cast (Auto) 1-5 (0-5) /lpf U Epithel Cells (Auto) 10-20 H (0-5) /lpf Urine Bacteria (Auto) 2+ H (Negative) SARS-CoV-2 (PCR) NEGATIVE (Negative) Enterococc faecium PCR (NotDetected) Influenza Type A (PCR) Negative (Neg) Influenza Type B (PCR) Negative (Neg) RSV (RT-PCR) Negative (Neg) Maurice/B-Vanco Res Genes (NotDetected) Bld Cult ID Panel PCR (NotDetected) 08/13/22 Range/Units 16:11 WBC (4.8-10.8) K/ul RBC (4.70-6.10) M/uL Hgb (14.0-18.0) g/dl Hct (42.0-52.0) % MCV (80.0-100.0) fL MCH (25.0-34.0) pg MCHC (32.0-36.0) g/dL RDW Std Deviation (36.4-46.3) fL RDW Coeff of Miguel (11.5-14.5) % Plt Count (130-400) K/uL MPV (9.4-12.4) fL Immature Gran % (Auto) % Neut % (Auto) % Lymph % (Auto) % Reynolds % (Auto) % Eos % (Auto) % Baso % (Auto) % Neut # (Auto) (1.40-6.50) K/uL Lymph # (Auto) (1.2-3.4) K/uL Reynolds # (Auto) (0.11-0.59) K/uL Eos # (Auto) (0-0.50) K/uL Baso # (Auto) (0-0.2) K/uL Immature Gran # (Auto) (0.01-0.20) K/uL Polychromasia Macrocytosis PT (9.0-12.0) Seconds INR (0.9-1.1) APTT (21.0-31.0) Seconds PTT Ratio Sodium (136-145) mmol/L Potassium (3.5-5.1) mmol/L Chloride (98-107) mmol/L Carbon Dioxide (21-32) mmol/L Anion Gap (3-11) BUN (6-23) mg/dl Creatinine (0.6-1.4) mg/dl Est Cr Clr Drug Dosing ml/min Est GFR ( Amer) ml/min Est GFR (Non-Af Amer) ml/min BUN/Creatinine Ratio (10-20) Glucose (70-99(Fasting)) mg/dl Lactate (0.4-2.0) mmol/L Calcium (8.6-10.3) mg/dl Magnesium (1.7-2.4) mg/dl Total Bilirubin (0.2-1.0) mg/dl Direct Bilirubin (0-0.2) mg/dl AST (13-39) U/L ALT (7-52) U/L Alkaline Phosphatase (34-104) U/L Ammonia 36.0 (18-72) umol/L Troponin I High Sens (0-20) pg/ml Total Protein (6.0-8.3) gm/dl Albumin (3.4-5.0) gm/dl Procalcitonin (0-0.5) ng/ml Urine Color Urine Appearance (Clear) Urine pH (4.5-7.5) Ur Specific [place] (1.000-1.030) Urine Protein (Negative) Urine Glucose (UA) (Negative) Urine Ketones (Negative) Urine Blood (Negative) Urine Nitrite (Negative) Urine Bilirubin (Negative) Urine Urobilinogen (Negative) Ur Leukocyte Esterase (Negative) Urine WBC (Auto) (0-5) /hpf Urine RBC (Auto) (0-4) /hpf U Hyaline Cast (Auto) (0-5) /lpf U Epithel Cells (Auto) (0-5) /lpf Urine Bacteria (Auto) (Negative) SARS-CoV-2 (PCR) (Negative) Enterococc faecium PCR (NotDetected) Influenza Type A (PCR) (Neg) Influenza Type B (PCR) (Neg) RSV (RT-PCR) (Neg) aMurice/B-Vanco Res Genes (NotDetected) Bld Cult ID Panel PCR (NotDetected) Administered Medications Piperacillin Sod/Tazobactam (Sod 4.5 gm/ Dextrose) 120 mls @ 30 mls/hr IV Q8H LUZ; Protocol Stop: 08/15/22 19:14 Last Infusion: 08/14/22 06:04 Dose: 0 mls/hr Documented By: Admin: 08/14/22 02:30 Dose: 30 mls/hr Documented By: Infusion: 08/14/22 01:38 Dose: 0 mls/hr Documented By: Admin: 08/13/22 21:00 Dose: 30 mls/hr Documented By: NEYDA Daptomycin 500 mg/ Syringe 10 mls @ 5 mls/min IV Q24H LUZ; Protocol Stop: 08/15/22 20:59 Last Admin: 08/13/22 21:34 Dose: 5 mls/min Documented By: NEYDA Lactulose (Lactulose Syrup 20 Gm/30 Ml Udc) 20 gm PO DAILY LUZ Stop: 09/13/22 08:59 Last Admin: 08/14/22 08:08 Dose: 20 gm Documented By: FRANK Midodrine (Midodrine Hcl 10 Mg Tab) 10 mg PO TIDM LUZ Stop: 09/13/22 07:59 Last Admin: 08/14/22 12:04 Dose: 10 mg Documented By: Admin: 08/14/22 08:08 Dose: 10 mg Documented By: FRANK Pantoprazole Sodium (Pantoprazole 40 Mg Tab) 40 mg PO BID LUZ Stop: 09/12/22 20:59 Last Admin: 08/14/22 08:08 Dose: 40 mg Documented By: Admin: 08/13/22 21:34 Dose: 40 mg Documented By: NEYDA Paroxetine HCl (Paroxetine Hcl 10 Mg Tab) 10 mg PO QPM LUZ Stop: 09/12/22 20:59 Last Admin: 08/13/22 21:34 Dose: 10 mg Documented By: NEYDA Rifaximin (Rifaximin 550 Mg Tablet) 550 mg PO BID LUZ Stop: 09/12/22 20:59 Last Admin: 08/14/22 08:08 Dose: 550 mg Documented By: Admin: 08/13/22 21:35 Dose: 550 mg Documented By: NEYDA Sucralfate (Sucralfate 1 Gm/10 Ml Udc) 1 gm PO ACHS LUZ Stop: 09/12/22 20:59 Last Admin: 08/14/22 12:03 Dose: 1 gm Documented By: Admin: 08/14/22 08:08 Dose: 1 gm Documented By: Admin: 08/13/22 21:35 Dose: 1 gm Documented By: NEYDA Vitamin B Complex (Vitamin B Complex Tab) 1 tab PO DAILY LUZ Stop: 09/13/22 08:59 Last Admin: 08/14/22 08:08 Dose: 1 tab Documented By: FRANK Vitamin D (Cholecalciferol 1,000 Units 25 Mcg Tab) 2,000 units PO QAM LUZ Stop: 09/13/22 08:59 Last Admin: 08/14/22 08:08 Dose: 2,000 units Documented By: FRANK Discontinued Medications Acetaminophen (Acetaminophen 325 Mg Tab) 650 mg PO NOW STA Stop: 08/13/22 17:40 Last Admin: 08/13/22 17:49 Dose: 650 mg Documented By: NATALIE Sodium Chloride (Nss 1000ml) 500 mls @ 999 mls/hr IV .Q31M ONE Stop: 08/13/22 13:06 Last Infusion: 08/13/22 13:55 Dose: 0 mls/hr Documented By: Admin: 08/13/22 12:53 Dose: 999 mls/hr Documented By: RACHNA Piperacillin Sod/Tazobactam Sod (Zosyn) 4.5 gm in 120 mls @ 240 mls/hr IV NOW ONE Stop: 08/13/22 13:51 Last Infusion: 08/13/22 15:29 Dose: 0 mls/hr Documented By: Admin: 08/13/22 13:55 Dose: 240 mls/hr Documented By: SEKOU Sodium Chloride (Nss 1000ml) 500 mls @ 999 mls/hr IV .Q31M ONE Stop: 08/13/22 14:25 Last Infusion: 08/13/22 15:29 Dose: 0 mls/hr Documented By: Admin: 08/13/22 14:02 Dose: 999 mls/hr Documented By: SEKOU Lactated Ringer's (Lr) 1,000 mls @ 999 mls/hr IV .Q1H1M ONE Stop: 08/13/22 19:52 Last Infusion: 08/13/22 21:10 Dose: 0 mls/hr Documented By: Admin: 08/13/22 19:56 Dose: 999 mls/hr Documented By: NEYDA Magnesium Sulfate/Dextrose (Magnesium Sulfate / D5w) 1 gm in 100 mls @ 50 mls/hr IV Q2H LUZ Stop: 08/13/22 23:14 Last Infusion: 08/14/22 00:45 Dose: 0 mls/hr Documented By: Admin: 08/13/22 22:36 Dose: 50 mls/hr Documented By: Infusion: 08/13/22 22:36 Dose: 0 mls/hr Documented By: Admin: 08/13/22 20:26 Dose: 50 mls/hr Documented By: NEYDA Ioversol (Optiray 320 100ml) 85 ml IV ONCE ONE Stop: 08/13/22 19:41 Last Admin: 08/13/22 19:40 Dose: 85 ml Documented By: TIMMY Morphine Sulfate (Morphine Sulfate 4 Mg/Ml 1 Ml Carp\Vial) 4 mg IV NOW STA Stop: 08/13/22 15:05 Last Admin: 08/13/22 15:11 Dose: 4 mg Documented By: SEKOU Ondansetron HCl (Ondansetron Inj 2 Mg/Ml 2 Ml Vial) 4 mg IV NOW STA Stop: 08/13/22 15:05 Last Admin: 08/13/22 15:08 Dose: 4 mg Documented By: SEKOU Imaging Data Radiologist's Impression: Chest X-Ray 08/13/22 12:37 XR chest 1V portable HISTORY: 67 years-old Male Sepsis acute sepsis COMPARISON: 07/13/2022 TECHNIQUE: AP view of the chest FINDINGS: Cardiomediastinal and hilar silhouettes are unchanged. No pneumothorax, pleural effusion, airspace consolidation or pulmonary edema. Degenerative changes of the shoulders and spine. IMPRESSION: No acute process. ACT 112: Negative or not required by law. The above report was generated using voice recognition software. It may contain grammatical, syntax or spelling errors. Electronically signed by: Alan Espino M.D. 08/13/2022 1:24 PM Discharge Plan Visit Data Chief Complaint: Cardiac Assessment ED Provider: Anish Carreon Discharge Problem: Acute UTI (urinary tract infection), Sepsis Patient Disposition: Admitted As Inpatient Condition: Good Discharge Instructions Interventions: ED Discharge Assessment Last Done: 08/13/22 18:20 Sepsis Qualifiers: Sepsis type: sepsis due to unspecified organism Sepsis acute organ dysfunction status: without acute organ dysfunction Qualified Code(s): A41.9 - Sepsis, unspecified organism
[2022-08-13 13:12] LABS: Basophils # (auto) 0.04 K/uL (0-0.2); Basophils % (auto) 0.5 %; Eosinophils # (auto) 0.13 K/uL (0-0.50); Eosinophils % (auto) 1.6 %; Hematocrit (blood only) 23.6 % (42.0-52.0); Immature Granulocytes # (auto) 0.06 K/uL (0.01-0.20); Immature Granulocytes % (auto) 0.7 %; Lymphocytes # (auto) 0.35 K/uL (1.2-3.4); Lymphocytes % (auto) 4.3 %; Mean Corpuscular Hemoglobin 37.6 pg (25.0-34.0); Mean Corpuscular Hgb Conc 33.9 g/dL (32.0-36.0); Mean Corpuscular Volume 110.8 fL (80.0-100.0); Mean Platelet Volume 10.2 fL (9.4-12.4); Monocytes # (auto) 0.94 K/uL (0.11-0.59); Monocytes % (auto) 11.5 %; Neutrophils # (auto) 6.65 K/uL (1.40-6.50); Neutrophils % (auto) 81.4 %; Platelet Count 70 K/uL (130-400); RDW Coefficient of Variation 19.4 % (11.5-14.5); RDW Standard Deviation 78.5 fL (36.4-46.3); Red Blood Count 2.13 M/uL (4.70-6.10); White Blood Count 8.17 K/ul (4.8-10.8)
[2022-08-13] MEDS ORDERED: PIPERACILLIN/TAZOBACTAM 4.5 GM/120 ML BAG IV ONE (13:22)
--- NOTE | 2022-08-13 13:26 | XRay Report ---
XR chest 1V portable HISTORY: 67 years-old Male Sepsis acute sepsis COMPARISON: 07/13/2022 TECHNIQUE: AP view of the chest FINDINGS: Cardiomediastinal and hilar silhouettes are unchanged. No pneumothorax, pleural effusion, airspace co nsolidation or pulmonary edema. Degenerative changes of the shoulders and spine. IMPRESSION: No acute process. ACT 112: Negative or not required by law. The above report was generated using voice recognition software. It may contain grammatical, syntax o r spelling errors. Electronically signed by: Alan Espino M.D. 08/13/2022 1:24 PM
[2022-08-13 13:29] LABS: Albumin Level 2.8 gm/dl (3.4-5.0); BUN Creatinine Ratio 12.9 (10-20); Bilirubin Direct 1.3 mg/dl (0-0.2); Bilirubin,Total 3.6 mg/dl (0.2-1.0); Calcium 10.7 mg/dl (8.6-10.3); Creatinine Clr Calc Pharmacy 40.2 ml/min; Est GFR (African American) 36.4 ml/min; Est GFR (Non-African American) 31.4 ml/min; Magnesium 1.4 mg/dl (1.7-2.4); Potassium 4.9 mmol/L (3.5-5.1)
[2022-08-13 13:33] LABS: Macrocytosis Present; Polychromasia 1+
[2022-08-13 13:34] LABS: Troponin I High Sensitivity 7.8 pg/ml (0-20)
[2022-08-13 13:36] LABS: INR 1.4 (0.9-1.1); Partial Thromboplastin Time 29.4 Seconds (21.0-31.0); Prothrombin Time 14.7 Seconds (9.0-12.0)
[2022-08-13 13:45] LABS: Influenza A virus by PCR Negative (Neg); Influenza B virus by PCR Negative (Neg); RSV by PCR Negative (Neg); SARS CoV2 RNA(COVID-19) Ceph NEGATIVE (Negative)
--- NOTE | 2022-08-13 14:06 | Electrocardiogram Report ---
Test Reason : Blood Pressure : / mmHG Vent. Rate : 117 BPM Atrial Rate : 117 BPM P-R Int : 168 ms QRS Dur : 080 ms QT Int : 316 ms P-R-T Axes : 036 -24 040 degrees QTc Int : 440 ms Poor data quality, interpretation may be adversely affected Sinus tachycardia Low voltage QRS Borderline ECG When compared with ECG of 13-JUL-2022 13:54, Premature supraventricular complexes are no longer Present Borderline criteria for Anterior infarct are no longer Present Borderline criteria for Anterolateral infarct are no longer Present Nonspecific T wave abnormality, improved in Anterior leads Confirmed by Dc Phillips ([id number]) on 08/13/2022 2:06:12 PM Referred By: Confirmed By:Dc Phillips
[2022-08-13 14:45] LABS: Appearance Urine Clear (Clear); Bacteria Urine Automated 2+ (Negative); Bilirubin Urine Negative (Negative); Blood Urine Negative (Negative); Color Urine Yellow; Glucose Urine UA Negative (Negative); Ketones Urine Negative (Negative); Leukocyte Esterase Urine 1+ (Negative); Nitrite Urine Negative (Negative); Protein Urine Negative (Negative); RBC Urine Automated 0-4 /hpf (0-4); Specific Gravity Urine 1.014 (1.000-1.030); Urobilinogen Urine Negative (Negative); WBC Urine Automated >30 /hpf (0-5)
[2022-08-13] MEDS ORDERED: MoRPHine SULFATE 4 MG/ML 1 ML CARP\\VIAL IV STA (15:04)
[2022-08-13] MEDS ORDERED: ONDANSETRON INJ 2 MG/ML 2 ML VIAL IV STA (15:04)
--- NOTE | 2022-08-13 15:22 | History & Physical Report ---
Date of Service August 13, 2022 Assessment & Plan (1) Sepsis: Plan: Lactate 2.2 -> 2.0 with NSS given in the ER Unclear definitive source on admission ? UTI vs. SBP US paracentesis in AM Follow up blood and urine cultures Broad spectrum antibiotics with daptomycin and Zosyn pending results (2) Urinary tract infection: Plan: Possible diagnosis. No specific symptoms however. Follow up urine culture. (3) Anemia: Plan: At baseline. Continue to monitor. Known history of GAVE. Required 2 units of blood last admission in June. 19 units since April 2021. (4) Urethral stricture: Plan: No urine retention on CT. Monitor for worsening urine output. Urethral dilation performed June 12. (5) 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: Plan: Reportedly now on transplant list MELD 26, 85.4% 90 day survival Hold spironolactone due to hypotension and tachycardia in setting of suspected infection Continue midodrine (6) Spinal stenosis: Plan: Suspect cause of his back pain (7) Abdominal pain: Plan: Chronic. Repordly always has this - suspect from ascites but unable to rule out SBP because of this. (8) CKD (chronic kidney disease), stage III: Plan: At baseline continue to monitor (9) GAVE (gastric antral vascular ectasia): Plan: Multiple blood transfusions as above. Continue pantoprazole and carafate - possibly not taking this correctly per son as he mentioned this was discontinued. Plan VTE Prophylaxis - deferred due to repeated need for blood transfusions and GAVE Diet - low Na Disposition - admit to med/tele Admission and Anticipated Discharge Date Admission Date: August 13, 2022 History of Present Illness Chief Complaint: Midsternal chest pain Primary Care Provider: DO Sebastian Schneider (Bill) Khang is a 67 year old male who presents to the ER on advice of his home health nurse. Difficulty getting a good history from the patient as he appears confused. Initially tells me he is here for abdominal pain for the last 2 days but then when I mention he had this during his last admission he reports it has been ongoing since then. History obtained from his son over the phone. Reportedly he was complaining of chest pain to the nurse this morning. On checking his vital signs his blood pressure was low with systolic 80 and heart rate of 139 with more confusion therefore he was sent to the ER. His son saw him yesterday and with hindsight thinks he has been getting worse with dizzy spells and generalized lethargy during that time. He confirms the patient always complains of abdominal pain and this has been long standing. He reports his dad may not be taking Carafate as he was under the impression it was discontinued last admission - on review of discharge it was actually increased from BID to QID. He notes the patient is now on the transplant list with his consumer education specialist. 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 He currently denies any melena or bright red blood in stool. Allergies Allergy/AdvReac Type Severity Reaction Status Date / Time tamsulosin Allergy Intermediate HIVES Verified 08/13/22 16:20 etanercept [From Enbrel] AdvReac Intermediate Increased Verified 08/13/22 16:20 infections Home Medications Medication Instructions Recorded Confirmed Type cholecalciferol (vitamin D3) 50 50 mcg PO QAM #90 caps 05/15/21 08/13/22 Rx mcg (2,000 unit) capsule vitamin B complex 1 tab PO DAILY 10/23/21 08/13/22 History rifaximin 550 mg tablet (Xifaxan) 550 mg PO BID #60 tabs 01/16/22 08/13/22 Rx darbepoetin coretta in polysorbat 100 100 mcg subcut .COMPLEX PRN 05/23/22 08/13/22 History mcg/0.5 mL in polysorbate NEEDED injection syringe paroxetine HCl 10 mg tablet 10 mg PO QPM 06/21/22 08/13/22 History midodrine 10 mg tablet 10 mg PO TID #90 tabs 07/21/22 08/13/22 Rx spironolactone 50 mg tablet 50 mg PO BID #60 tabs 07/21/22 08/13/22 Rx sucralfate 100 mg/mL oral 10 ml PO ACHS #1,000 mL 07/21/22 08/13/22 Rx suspension ondansetron HCl 4 mg tablet 4 mg PO Q8H PRN Nausea And 08/08/22 08/13/22 Rx Vomiting #30 tabs pantoprazole 40 mg tablet,delayed 40 mg PO BID #60 tabs 08/08/22 08/13/22 Rx release lactulose 10 gram/15 mL oral 20 g (30 mL) PO DAILY #946 mL 08/10/22 08/13/22 Rx solution Past Med/Surg History Medical History Anemia Ascites Calculus of kidney Cervical disc disease CKD (chronic kidney disease), stage III Depression Esophageal varices determined by endoscopy GAVE (gastric antral vascular ectasia) GERD (gastroesophageal reflux disease) History of GI bleed History of herniated intervertebral disc History of SCC (squamous cell carcinoma) of skin Hx of blood clots Hx of upper gastrointestinal hemorrhage Hypothyroidism 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 Lumbar disc disease Oral mucositis Pancytopenia Portal hypertensive gastropathy Post-traumatic urethral stricture Psoriasis Psoriatic arthritis PVT (portal vein thrombosis) Spinal stenosis TMJ arthralgia Urinary retention Urinary tract infection Wide-complex tachycardia Surgical History H/O foot surgery History of appendectomy History of arthroscopy History of cataract surgery History of cholecystectomy History of esophagogastroduodenoscopy (EGD) History of herniorrhaphy History of lithotripsy History of liver biopsy History of repair of rotator cuff History of tooth extraction History of urologic surgery Nausea and vomiting after administration of anesthetic agent S/P colonoscopy S/P epidural steroid injection S/P orchiectomy S/P urological surgery (2018) Suprapubic catheter Family History Grandmother (Maternal) Diabetes Father Renal cancer Mother Aortic aneurysm Denies family history of Ovarian cancer Prostate cancer Myocardial infarction Breast cancer Colorectal cancer Social History Smoking Status: Never smoker Second Hand Exposure: No; Do You Dip or Chew Tobacco: No; Hx Alcohol Use: No Hx Substance Use: No Preferred Language: Maltese Communication Ability: Effective Visual Impairment: No Limitations Hearing Ability: Hard of Hearing Health Sanitarian Required: No Beliefs That Will Affect Care: None marital status: / Current Living Situation: Family Current Living Situation Comment: Lives with son and [id number] current occupational status: retired How many Children do You have: 1 Feels Safe at Home: Yes Safety Concerns: Feels Safe At This Time Diet: low salt Diet Comment: LOW SALT caffeine: Yes during the past year weight has: remained stable Dental Care, Regularly: No Physical Activity Frequency: Other Physical Activity Frequency Comment: does all housework/outside work and cuts wood Seatbelt Use: never Sunscreen Use: No Assistive Devices: Cane and Walker Review of Systems Review of Systems: All systems reviewed & are unremarkable except as noted in HPI & below Physical Exam Constitutional: well developed; + not well nourished and no acute distress Eyes: PERRL, conjunctivae normal, anicteric sclerae ENMT: Mouth: oral mucous membranes not dry Neck: trachea midline, no thyromegaly Respiratory: normal respiratory effort, lungs clear to auscultation Cardiovascular: Rate/Rhythm: regular rhythm and + tachycardic Heart Sounds: no murmur Extremities: normal capillary refill and + pedal edema (pitting 2+ to thigh equal b/l); no calf tenderness Gastrointestinal (Abdomen): Inspection/Auscultation: abdomen normal to inspection and + abdomen distended Percussion/Palpation: + abdomen tender (generalized) and abdomen soft; no guarding and abdomen not rigid Musculoskeletal: no cyanosis or clubbing, extremities motor strength 5/5 Skin: no rashes, warm and dry Neurologic: moves all extremities, awake and + confused; no focal motor deficits (no unilateral weakness) Speech / Cognition: normal speech Cranial Nerves: PERRL, EOM intact bilaterally, normal facial strength, tongue midline, able to rotate head bilaterally, able to elevate shoulders bilaterally, no nystagmus and symmetric palate elevation Psychiatric: Orientation: alert, oriented to person and oriented to place; + not oriented to time Genitourinary: no CVA tenderness Results & Data Results & Data Vital Signs (Past 12 Hours) Vital Signs Temp Pulse Pulse Resp BP BP Pulse Ox 08/13/22 13:54 112 H 24 115/67 96 08/13/22 14:07 37.6 C H 08/13/22 13:52 110 H 22 111/76 93 08/13/22 13:45 113 H 23 98 08/13/22 13:21 116 H 08/13/22 13:00 127 H 24 112/62 96 08/13/22 12:57 96 08/13/22 12:21 38.1 C H 116 H 22 115/72 97 O2 Del Method 08/13/22 13:54 Room Air 08/13/22 14:07 08/13/22 13:52 Room Air 08/13/22 13:45 Room Air 08/13/22 13:21 08/13/22 13:00 Room Air 08/13/22 12:57 Room Air 08/13/22 12:21 Room Air Laboratory Results Abnormal lab results 08/13/22 08/13/22 08/13/22 Range/Units 12:43 12:43 12:43 RBC 2.13 L (4.70-6.10) M/uL Hgb 8.0 L (14.0-18.0) g/dl Hct 23.6 L (42.0-52.0) % MCV 110.8 H (80.0-100.0) fL MCH 37.6 H (25.0-34.0) pg RDW Std Deviation 78.5 H (36.4-46.3) fL RDW Coeff of Miguel 19.4 H (11.5-14.5) % Plt Count 70 L (130-400) K/uL Neut # (Auto) 6.65 H (1.40-6.50) K/uL Lymph # (Auto) 0.35 L (1.2-3.4) K/uL [place] # (Auto) 0.94 H (0.11-0.59) K/uL PT 14.7 H (9.0-12.0) Seconds INR 1.4 H (0.9-1.1) Sodium 132 L (136-145) mmol/L BUN 27 H (6-23) mg/dl Creatinine 2.10 H (0.6-1.4) mg/dl Glucose 146 H (70-99(Fasting)) mg/dl Lactate (0.4-2.0) mmol/L Calcium 10.7 H (8.6-10.3) mg/dl Magnesium 1.4 L (1.7-2.4) mg/dl Total Bilirubin 3.6 H (0.2-1.0) mg/dl Direct Bilirubin 1.3 H (0-0.2) mg/dl Alkaline Phosphatase 167 H (34-104) U/L Albumin 2.8 L (3.4-5.0) gm/dl Ur Leukocyte Esterase (Negative) Urine WBC (Auto) (0-5) /hpf U Epithel Cells (Auto) (0-5) /lpf Urine Bacteria (Auto) (Negative) 08/13/22 08/13/22 Range/Units 12:43 14:05 RBC (4.70-6.10) M/uL Hgb (14.0-18.0) g/dl Hct (42.0-52.0) % MCV (80.0-100.0) fL MCH (25.0-34.0) pg RDW Std Deviation (36.4-46.3) fL RDW Coeff of Miguel (11.5-14.5) % Plt Count (130-400) K/uL Neut # (Auto) (1.40-6.50) K/uL Lymph # (Auto) (1.2-3.4) K/uL [place] # (Auto) (0.11-0.59) K/uL PT (9.0-12.0) Seconds INR (0.9-1.1) Sodium (136-145) mmol/L BUN (6-23) mg/dl Creatinine (0.6-1.4) mg/dl Glucose (70-99(Fasting)) mg/dl Lactate 2.2 H* (0.4-2.0) mmol/L Calcium (8.6-10.3) mg/dl Magnesium (1.7-2.4) mg/dl Total Bilirubin (0.2-1.0) mg/dl Direct Bilirubin (0-0.2) mg/dl Alkaline Phosphatase (34-104) U/L Albumin (3.4-5.0) gm/dl Ur Leukocyte Esterase 1+ H (Negative) Urine WBC (Auto) >30 H (0-5) /hpf U Epithel Cells (Auto) 10-20 H (0-5) /lpf Urine Bacteria (Auto) 2+ H (Negative) Diagnostic Findings XR chest 1V portable HISTORY: 67 years-old Male Sepsis acute sepsis COMPARISON: 07/13/2022 TECHNIQUE: AP view of the chest FINDINGS: Cardiomediastinal and hilar silhouettes are unchanged. No pneumothorax, pleural effusion, airspace consolidation or pulmonary edema. Degenerative changes of the shoulders and spine. IMPRESSION: No acute process. Medications Administered ER Medications Given: NSS 500 ml bolus Zosyn 4.5g IV NSS 500 ml bolus Morphine 4mg IV Ondansetron 4m IV ECG Rate (beats per minute): 117 Rhythm: sinus tachycardia Findings: no acute ischemic change Comparison ECG Date: from (July 13, 2022) Change: the following changes noted (premature SVTs no longer present) Code Status & VTE Plan Code Status DNR/DNI - as discussed with patient VTE Prophylaxis Plan VTE Prophylaxis will be ordered: No PG Care Time/CCT Total # of Minutes Spent Total Time Spent with Patient: Total time spent is greater than 50% in coordination of care (as documented) at patient's floor/unit and/or counseling patient: Coding Level of Care Code 23042 INT INP/OBS CARE 3/75MIN Diagnoses Sepsis A41.9 Sepsis acute organ dysfunction status: without acute organ dysfunction Sepsis type: sepsis due to unspecified organism Urinary tract infection N39.0; R31.9 Hematuria presence: with hematuria Urinary tract infection type: site unspecified Anemia D64.9 Urethral stricture N35.919 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 K75.81; K74.60 Spinal stenosis M48.00 Abdominal pain R10.9 CKD (chronic kidney disease), stage III N18.3 GAVE (gastric antral vascular ectasia) K31.819 (1) Sepsis Sepsis acute organ dysfunction status: without acute organ dysfunction Sepsis type: sepsis due to unspecified organism Qualified Code(s): A41.9 - Sepsis, unspecified organism (2) Urinary tract infection Hematuria presence: with hematuria Urinary tract infection type: site unspecified Qualified Code(s): N39.0 - Urinary tract infection, site not specified; R31.9 - Hematuria, unspecified
[2022-08-13] MEDS ORDERED: ACETAMINOPHEN 325 MG TAB PO STA (17:39)
[2022-08-13] MEDS ORDERED: LACTATED RINGER'S 1,000 ML IV ONE (18:52)
[2022-08-13] MEDS ORDERED: OPTIRAY 320 100ml IV ONE (19:40)
--- NOTE | 2022-08-13 20:18 | CT Scan Report ---
Exam(s): CT ABDOMEN + PELVIS With Contrast IV Amt: 85ml EXAM: CT Abdomen and Pelvis With Intravenous Contrast CLINICAL HISTORY: Reason for exam: abdominal pain, sepsis. TECHNIQUE: Axial computed tomography images of the abdomen and pelvis with intravenous contrast. CTDI is 27.95 mGy and DLP is 1657.57 mGy-cm. Automated exposure control was utilized for the study. A dose lowering technique was utilized adhering to the principles of ALARA. CONTRAST: Patient received 85ml of IV contrast COMPARISON: CT abdomen pelvis July 13, 2022. FINDINGS: Lung bases: Unremarkable. No mass. No consolidation. Heart: Cardiomegaly. ABDOMEN: Liver: Hepatic cirrhosis. Cholecystectomy. Mild splenomegaly. Multiple didier-splenic varices. Abdominal and pelvic ascites. Gallbladder and bile ducts: See above. Pancreas: Unremarkable. No mass. No ductal dilation. Spleen: See above. Adrenals: Unremarkable. No mass. Kidneys and ureters: Bilateral nonobstructing renal calculi, measuring up to 3 mm in the LEFT lower pole. Stomach and bowel: Unremarkable. No acute diverticulitis. No small bowel obstruction. No free air. PELVIS: Appendix: No findings to suggest acute appendicitis. Bladder: Unremarkable. No mass. Reproductive: Unremarkable as visualized. ABDOMEN and PELVIS: Intraperitoneal space: See above. Bones/joints: Degenerative changes of the spine. No acute fracture. No dislocation. Soft tissues: Mild anasarca. Vasculature: Atherosclerotic changes of the aorta. Lymph nodes: Unremarkable. No enlarged lymph nodes. IMPRESSION: 1. No acute diverticulitis. No small bowel obstruction. No free air. 2. Hepatic cirrhosis. Cholecystectomy. Mild splenomegaly. Multiple didier-splenic varices. Abdominal and pelvic ascites. 3. Bilateral nonobstructing renal calculi, measuring up to 3 mm in the LEFT lower pole. Electronically signed by: Bruce Dennis MD 08/13/22 20:17 PM
[2022-08-13] MEDS: MAGNESIUM SULFATE / D5W 1 GM/100 ML BAG IV SCH ×2 (20:26→22:36)
[2022-08-13] MEDS ORDERED: DAPTOmycin 500 MG in SYRINGE 0 ML IV SCH (21:00)
[2022-08-13] MEDS: PIPERACILLIN/TAZOBACTAM 4.5 GM in DEXTROSE 5% 100 ML IV SCH (21:00)
[2022-08-13] MEDS ORDERED: SPIRONOLACTONE 25 MG TAB PO SCH (21:00)
[2022-08-13] MEDS: PANTOprazole 40 MG TAB PO SCH (21:34)
[2022-08-13] MEDS: PARoxetine HCL 10 MG TAB PO SCH (21:34)
[2022-08-13] MEDS: rifAXIMin 550 MG TABLET PO SCH (21:35)
[2022-08-13] MEDS: SUCRALFATE 1 GM/10 ML UDC PO SCH (21:35)
[2022-08-14 00:36] LABS: Adenovirus PCR Not Detected (NotDetected); Bordetella parapertussis PCR Not Detected (NotDetected); Bordetella pertussis PCR Not Detected (NotDetected); Chlamydia pneumoniae PCR Not Detected (NotDetected); Coronavirus 229E PCR Not Detected (NotDetected); Coronavirus CoV-2 (COVID19)PCR Not Detected (NotDetected); Coronavirus HKU1 PCR Not Detected (NotDetected); Coronavirus NL63 PCR Not Detected (NotDetected); Coronavirus OC43PCR Not Detected (NotDetected); Human Metapneumovirus PCR Not Detected (NotDetected); Influenza A PCR Not Detected (NotDetected); Influenza B PCR Not Detected (NotDetected); Mycoplasma pneumoniae PCR Not Detected (NotDetected); Parainfluenza Virus 1 PCR Not Detected (NotDetected); Parainfluenza Virus 2 PCR Not Detected (NotDetected); Parainfluenza Virus 3 PCR Not Detected (NotDetected); Parainfluenza Virus 4 PCR Not Detected (NotDetected); Respiratory Syncytial VirusPCR Not Detected (NotDetected); Rhinovirus/Enterovirus PCR Not Detected (NotDetected)
[2022-08-14] MEDS: PIPERACILLIN/TAZOBACTAM 4.5 GM in DEXTROSE 5% 100 ML IV SCH ×3 (02:30→19:55)
--- NOTE | 2022-08-14 07:02 | Hospitalist Progress Note ---
Date of Service August 14, 2022 Assessment & Plan (1) Acute UTI (urinary tract infection): (2) Sepsis: (3) Upper GI bleeding: (4) Calculus of kidney: (5) Urinary tract infection: (6) Diarrhea: (7) Decompensated hepatic cirrhosis: (8) Abdominal pain: Admission and Anticipated Discharge Date Admission Date: August 13, 2022 Subjective 08/14: Review of Systems Review of Systems: As per above Results & Data Results & Data Vital Signs (Past 12 Hours) Vital Signs Temp Pulse Pulse Resp BP BP Pulse Ox 08/14/22 03:00 37.6 C H 116 H 18 103/63 97 08/14/22 00:06 113 H 08/13/22 22:15 38.2 C H 104 H 16 91/56 L 95 08/13/22 19:56 08/13/22 19:56 38.0 C H 119 H 20 101/52 L 94 O2 Del Method O2 Flow Rate 08/14/22 03:00 Room Air 1 08/14/22 00:06 08/13/22 22:15 Nasal Cannula 2 08/13/22 19:56 Room Air 08/13/22 19:56 Room Air Resident Activity Tracking Resident Involvement: Resident Care Provided Care Provided: Adult Hospital Medicine (2) Sepsis Sepsis acute organ dysfunction status: without acute organ dysfunction Sepsis type: sepsis due to unspecified organism Qualified Code(s): A41.9 - Sepsis, unspecified organism (5) Urinary tract infection Hematuria presence: with hematuria Urinary tract infection type: site unspecified Qualified Code(s): N39.0 - Urinary tract infection, site not specified; R31.9 - Hematuria, unspecified
[2022-08-14 07:21] LABS: Hematocrit (blood only) 20.5 % (42.0-52.0); Hemoglobin 6.8 g/dl (14.0-18.0); Mean Corpuscular Hemoglobin 37.8 pg (25.0-34.0); Mean Corpuscular Hgb Conc 33.2 g/dL (32.0-36.0); Mean Corpuscular Volume 113.9 fL (80.0-100.0); Mean Platelet Volume 9.9 fL (9.4-12.4); Platelet Count 45 K/uL (130-400); RDW Coefficient of Variation 19.8 % (11.5-14.5); RDW Standard Deviation 84.1 fL (36.4-46.3); White Blood Count 11.59 K/ul (4.8-10.8)
[2022-08-14 07:33] LABS: Albumin Globulin Ratio 0.8 (0.9-2); Albumin Level 2.3 gm/dl (3.4-5.0); BUN Creatinine Ratio 14.4 (10-20); Bilirubin,Total 4.1 mg/dl (0.2-1.0); Calcium 10.1 mg/dl (8.6-10.3); Creatinine Clr Calc Pharmacy 36.2 ml/min; Est GFR (African American) 31.6 ml/min; Est GFR (Non-African American) 27.3 ml/min; Globulin 2.9 gm/dl (2.5-4.0); Magnesium 1.7 mg/dl (1.7-2.4); Potassium 5.7 mmol/L (3.5-5.1); Total Protein 5.2 gm/dl (6.0-8.3)
[2022-08-14 07:40] LABS: Basophils # (auto) 0.02 K/uL (0-0.2); Basophils % (auto) 0.2 %; Immature Granulocytes # (auto) 0.18 K/uL (0.01-0.20); Immature Granulocytes % (auto) 1.6 %; Lymphocytes # (auto) 0.23 K/uL (1.2-3.4); Macrocytosis Present; Monocytes # (auto) 0.78 K/uL (0.11-0.59); Monocytes % (auto) 6.7 %; Neutrophils # (auto) 10.38 K/uL (1.40-6.50); Neutrophils % (auto) 89.5 %; Polychromasia 1+
[2022-08-14] MEDS ORDERED: SODIUM CHLORIDE 0.9% 250 ML IV PRN ×2 (07:52→08:39)
[2022-08-14 07:53] LABS: INR 1.6 (0.9-1.1); Prothrombin Time 17.1 Seconds (9.0-12.0)
[2022-08-14] MEDS: MIDODRINE HCL 10 MG TAB PO SCH ×3 (08:08→17:53)
[2022-08-14] MEDS: PANTOprazole 40 MG TAB PO SCH ×2 (08:08→19:56)
[2022-08-14] MEDS: SUCRALFATE 1 GM/10 ML UDC PO SCH ×4 (08:08→19:56)
[2022-08-14] MEDS: LACTULOSE SYRUP 20 GM/30 ML UDC PO SCH (08:08)
[2022-08-14] MEDS: rifAXIMin 550 MG TABLET PO SCH ×2 (08:08→19:57)
[2022-08-14] MEDS: CHOLECALCIFEROL 1,000 UNITS 25 MCG TAB PO SCH (08:08)
[2022-08-14] MEDS: VITAMIN B COMPLEX TAB PO SCH (08:08)
--- NOTE | 2022-08-14 10:55 | Gastrointestinal Consultation ---
Date of Consultation August 14, 2022 Assessment & Plan (1) Sepsis: Pt is a 67 yo male w hx of SERRANO cirrhosis (MELD 28), complicated by varices, phg, GAVE, CKD, chronic anemia who is currently admitted with sepsis (urosepsis vs sbp). Blood ct lower than baseline but no gross GI bleeding noted. - Protonix 40mg BID, Carafate 1g QID - PRBC transfusion for goal Hgb >7. Monitor blood ct closely - Electrolyte correction per primary team - Continue Lactulose (titrate for goal bm 3-5 a day); Xifaxan 550mg BID - US paracentesis w fluid analysis to r/o SBP - Empiric coverage w Zosyn IV - Gentle albumin Supervising Physician Co-Signing Physician Notes Attg add: I interviewed and examined pt, reviewed chart and labs. Pt with SERRANO cirrhosis, admit with sepsis, blood cx growing GPC 2/2. CT shows ascites, o/w no acute changes. Labs also show increased creat from baseline, s/p IV contrast in ER, bili 4 from baseline 3. On exam, he appears comfortable; possible fluid wave in abdomen; mild pitting edema calves, bilat asterixis but lucid and convesant. Abx coverage per primary; r/p SBP and cont empiric coverage for this until tap; gentle albumin for creat, check Urine Na, consider renal consult. Hgb mildly lower from baseline, possibly dillutional given absence of gross GIB and fall in plts/wbc - no need scope, cont PPI BID. Laculose/xifaxan, titrate lactulose for 3-5 BM's daily. History of Present Illness Reason for Consultation: Anemia, hx of GAVE Requesting Physician: Dr. Margarito Zamudio Attending Physician: Dr. Kindra Fair History of Present Illness Pt is a 67 yo male male w PMHx of UTI, SCC, PSVT, CKD, SERRANO cirrhosis w GAVE,portal hypertensive gastropathy, depression, spinal stenosis, chronic anemia, who presented to ED w confusion, generalized lethargy, associated w dizziness. He was also c/o abd pain for the last 2 days wo associated nausea, vomiting, or changes in bowel habits including no rectal bleeding or dark tarry stools. On evaluation, pt is febrile w leukocytosis. H/H 6/20 (baseline Hgb 8), INR 1.6. Na 130, K 5.7, Lactate 2.2, LFTs: Tbili 4.1, AST 32, ALT 17, Alk phos 109. UA + for leukocyte esterase, and WBC. Pt suspected to have urosepsis and was started on Zosyn IV. His infectious workup just came back positive for Enterococcuse faecium and VRE. GPC on blood ct, urine culture pending. CT abd/pelvis w contrast: 1. No acute diverticulitis. No small bowel obstruction. No free air 2. Hepatic cirrhosis. Cholecystectomy. Mild splenomegaly. Multiple didier- splenic varices. Abdominal and pelvic ascites. Pt w hx of GAVE and portal hypertensive gastropathy, needed PRBC transfusions.. Last EGD 06/2022 w grade I varices and PHG noted. Recommended PPI and Carafate for management. Allergies Allergy/AdvReac Type Severity Reaction Status Date / Time tamsulosin Allergy Intermediate HIVES Verified 08/13/22 16:20 etanercept [From Enbrel] AdvReac Intermediate Increased Verified 08/13/22 16:20 infections Home Medications Medication Instructions Recorded Confirmed Type cholecalciferol (vitamin D3) 50 50 mcg PO QAM #90 caps 05/15/21 08/13/22 Rx mcg (2,000 unit) capsule vitamin B complex 1 tab PO DAILY 10/23/21 08/13/22 History rifaximin 550 mg tablet (Xifaxan) 550 mg PO BID #60 tabs 01/16/22 08/13/22 Rx darbepoetin coretta in polysorbat 100 100 mcg subcut .COMPLEX PRN 05/23/22 08/13/22 History mcg/0.5 mL in polysorbate NEEDED injection syringe paroxetine HCl 10 mg tablet 10 mg PO QPM 06/21/22 08/13/22 History midodrine 10 mg tablet 10 mg PO TID #90 tabs 07/21/22 08/13/22 Rx spironolactone 50 mg tablet 50 mg PO BID #60 tabs 07/21/22 08/13/22 Rx sucralfate 100 mg/mL oral 10 ml PO ACHS #1,000 mL 07/21/22 08/13/22 Rx suspension ondansetron HCl 4 mg tablet 4 mg PO Q8H PRN Nausea And 08/08/22 08/13/22 Rx Vomiting #30 tabs pantoprazole 40 mg tablet,delayed 40 mg PO BID #60 tabs 08/08/22 08/13/22 Rx release lactulose 10 gram/15 mL oral 20 g (30 mL) PO DAILY #946 mL 08/10/22 08/13/22 Rx solution Patient History Medical History Anemia Ascites Calculus of kidney Cervical disc disease CKD (chronic kidney disease), stage III Depression Esophageal varices determined by endoscopy GAVE (gastric antral vascular ectasia) Per records GERD (gastroesophageal reflux disease) History of GI bleed discharged from [facility] 06/10/22: borderline hemorrhagic shock-upper GI bleed suspected to be d/t GAVE-received 1 unit of PRBC History of herniated intervertebral disc lumbar area History of SCC (squamous cell carcinoma) of skin S/p removal- follows with derm Hx of blood clots 06/2021 @ [facility]- pt reports blood clot in left arm around IV site after being discharged from hospital- no meds due to current blood loss issue- warm c ompresses to site per pt- 2 ultrasounds done - no current issues Hx of upper gastrointestinal hemorrhage recent hospitalization at [facility] 06/07/2022 Hypothyroidism 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 current work-up for planned liver transplant per [facility] transplant clinic records Lumbar disc disease Oral mucositis On mouthwash daily- no recent issues Pancytopenia Portal hypertensive gastropathy Post-traumatic urethral stricture Psoriasis Psoriatic arthritis PVT (portal vein thrombosis) denies Spinal stenosis EPIDURAL INJECTIONS IN PAST FOR PAIN RELIEF TMJ arthralgia Urinary retention Urinary tract infection Wide-complex tachycardia ON CARDVEDILOL-F/U DR VANESSA LAST VISIT<1 YR AGO Surgical History H/O foot surgery excision of neuroma b/l feet History of appendectomy History of arthroscopy RT KNEE History of cataract surgery RT/LEFT History of cholecystectomy History of esophagogastroduodenoscopy (EGD) last 03/21/22 @ [facility] 02/08/22 Dr. Sara Cloud- EGD- Grade I esophageal varices, Portal hypertensive gastropathy History of herniorrhaphy right inguinal History of lithotripsy History of liver biopsy History of repair of rotator cuff RT/LEFT History of tooth extraction History of urologic surgery Urethral reconstruction 4 years ago at [facility] Nausea and vomiting after administration of anesthetic agent S/P colonoscopy S/P epidural steroid injection S/P orchiectomy Right age 9 for UDT S/P urological surgery (2018) BMG urethroplasty-[facility] Suprapubic catheter AND REMOVAL Family History Grandmother (Maternal) Diabetes Father Renal cancer Mother Aortic aneurysm Denies family history of Ovarian cancer Prostate cancer Myocardial infarction Breast cancer Colorectal cancer Social History Smoking Status: Never smoker Second Hand Exposure: No; Do You Dip or Chew Tobacco: No; Hx Alcohol Use: No Hx Substance Use: No Preferred Language: Moldovan Communication Ability: Effective Visual Impairment: No Limitations Hearing Ability: Hard of Hearing Lead Material Handler Required: No Beliefs That Will Affect Care: None marital status: / Current Living Situation: Family Current Living Situation Comment: Lives with son and [id number] current occupational status: retired How many Children do You have: 1 Feels Safe at Home: Yes Safety Concerns: Feels Safe At This Time Diet: low salt Diet Comment: LOW SALT caffeine: Yes during the past year weight has: remained stable Dental Care, Regularly: No Physical Activity Frequency: Other Physical Activity Frequency Comment: does all housework/outside work and cuts wood Seatbelt Use: never Sunscreen Use: No Assistive Devices: Cane and Walker Review of Systems Review of Systems: All systems reviewed & are unremarkable except as noted in HPI & below Physical Exam Constitutional: WD/WN, vitals as above well groomed, cooperative and comfortable Eyes: Icteric sclera, PERRLA ENMT: external ear and nose normal, oropharynx normal Respiratory: normal respiratory effort, lungs clear to auscultation Cardiovascular: RRR, no murmur, no edema Gastrointestinal (Abdomen): Diffusely tender to palpation, soft, BS hypoactive Skin: no rashes, warm and dry + jaundice Neurologic: Motor/Sensory: + asterixis Psychiatric: A+Ox3, euthymic affect Lymphatic: + lymphedema (bilateral LE, non pitting ) Results & Data Vital Signs (Past 12 Hours) Vital Signs Temp Pulse Pulse Pulse Resp BP Pulse Ox 06/20/23 07:55 36.8 C 112 H 18 109/61 96 08/14/22 07:46 113 H 08/14/22 03:00 37.6 C H 116 H 18 103/63 97 08/14/22 00:06 113 H O2 Del Method O2 Flow Rate 08/14/22 07:55 Nasal Cannula 1 08/14/22 07:46 08/14/22 03:00 Room Air 1 08/14/22 00:06 (1) Sepsis Sepsis acute organ dysfunction status: without acute organ dysfunction Sepsis type: sepsis due to unspecified organism Qualified Code(s): A41.9 - Sepsis, unspecified organism
[2022-08-14 11:20] LABS: A calco-baum cmplx NotReported Not Detected (NotDetected); Bact fragilis Not Reported Not Detected (NotDetected); C auris Not Reported Not Detected (NotDetected); Calbicans Not Reported Not Detected (NotDetected); Candida glabrata Not Reported Not Detected (NotDetected); Candida krusei Not Reported Not Detected (NotDetected); Cneoformans/gatti Not Reported Not Detected (NotDetected); Cparapsilosis Not Reported Not Detected (NotDetected); Ctropicalis Not Reported Not Detected (NotDetected); E cloacae compx Not Reported Not Detected (NotDetected); Efaecalis Not Reported Not Detected (NotDetected); Efaecium Not Reported DETECTED (NotDetected); Enterobacterales Not Reported Not Detected (NotDetected); Escherichia coli Not Reported Not Detected (NotDetected); H influenzae Not Reported Not Detected (NotDetected); K aerogenes Not Reported Not Detected (NotDetected); Koxytoca Not Reported Not Detected (NotDetected); Kpneumoniae grp Not Reported Not Detected (NotDetected); Lmonocyt Not Reported Not Detected (NotDetected); N meningitidis Not Reported Not Detected (NotDetected); P aeruginosa Not Reported Not Detected (NotDetected); Proteus spp Not Reported Not Detected (NotDetected); Salmonella spp Not Reported Not Detected (NotDetected); Smarcescens Not Reported Not Detected (NotDetected); Staph lugdunensis Not Reported Not Detected (NotDetected); Staph spp. Not Reported Not Detected (NotDetected); Staphaureus Not Reported Not Detected (NotDetected); Staphepi Not Reported Not Detected (NotDetected); Stenmaltophilia Not Reported Not Detected (NotDetected); Strep agal(GrpB) Not Reported Not Detected (NotDetected); Strep pneum Not Reported Not Detected (NotDetected); Strep pyog (GrpA) Not Reported Not Detected (NotDetected); Strep spp Not Reported Not Detected (NotDetected); VanAB Resistant Gene VRE DETECTED (NotDetected)
[2022-08-14 11:31] LABS: Enterococcus faecium DETECTED (NotDetected)
[2022-08-14] MEDS: ALBUMIN 25% 25 GM/100 ML VIAL IV SCH ×4 (13:13→20:23)
--- NOTE | 2022-08-14 13:45 | Hospitalist Progress Note ---
Date of Service August 14, 2022 Assessment & Plan (1) Sepsis: Plan: Lactate 2.2 -> 2.0 with NSS given in the ER US paracentesis later today. Blood culture: enterococcus, bateremia likely secondary to SBP. Urine culture: asymptomatic bacteruria * Continue broad spectrum antibiotics with daptomycin and Zosyn until paracentesis results return. (2) Urinary tract infection: Plan: Asymptomatic, bacteruria. (3) Anemia: Plan: Hgb: 6.8 from 8.0 on admission Known history of GAVE. Potentially additional change secondary to dilution. * Consent for blood * 1 unit of blood (4) Urethral stricture: Plan: No urine retention on CT. Monitor for worsening urine output. Urethral dilation performed June 12. (5) 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: Plan: Questioning if he is on the transplant list MELD 26, 85.4% 90 day survival *Hold spironolactone due to hypotension and tachycardia in setting of suspected infection *Continue midodrine (6) Spinal stenosis: Plan: Suspect cause of his back pain (7) Abdominal pain: Plan: Chronic. Reportedly always has this - suspect from ascites but unable to rule out SBP because of this. (8) CKD (chronic kidney disease), stage III: Plan: Cre 2.3 At baseline, continue to monitor (9) GAVE (gastric antral vascular ectasia): Plan: Multiple blood transfusions as above. * Continue pantoprazole and carafate - possibly not taking this correctly per son as he mentioned this was discontinued. (10) Bacteremia: Plan: Blood cultures postitive for enterococcus. Plan VTE Prophylaxis - deferred due to repeated need for blood transfusions and GAVE Diet - low Na Disposition - admit to med/tele Admission and Anticipated Discharge Date Admission Date: August 13, 2022 Supervising Physician Co-Signing Physician Notes I personally examined the patient and verified all [place] points of history and exam, discussed case, and agree with decision making with Mikki Kaur MS4 and Dr. Leonard Feeling better than yesterday. No acute complaints. No fevers chills or sweats that he knows of at home. Notes that abdominal pain started about 3 to 4 days prior to admission, then whenever he came to the ER as whenever he found he was febrilehe did not feel it, would not of known if somebody had not taken his temperature. No dysuria/frequency/urgency, no other focal symptoms. No hematemesis no change in his stools. Vitals noted, in general he is fatigued somewhat pale no distress, blood is infusing as we speak. HEENT normocephalic atraumatic mucous membranes moist. Abdomen is soft mildly distended with possible fluid wave diffuse tenderness but no guarding rebound or rigidity. Extremities are without cyanosis or clubbing. Neuro without focal deficits. Sepsisblood cultures showing bacteremiaSBP also on differentialalthough after paracentesis, this seems less likely. Despite urinalysis, once he was able to give symptomsgiven that he has no urinary symptoms I do not believe he has a urinary tract infection. Continue daptomycin and Zosyn pending further sensitivities, and another day to follow for any other source of infection. AKIon CKDsuspect from dehydration/prerenal/septic physiologycannot rule out an element of ATN at this time, cannot rule out an element of poor forward flow from his anemiahopefully will respond with transfusion. Initially also was concerned about worsening liver failure/possible hepatorenal syndromebut he looks very stable. Anemiaacute on chronicprobably heavily delusional, no obvious bleeding going on at this timetransfuse, follow DVT prophylaxispharmacologic contraindicated due to GAVE syndrome, SCDs have been ordered Otherwise as above Subjective Today, Spike is conversant and attentive and reports feeling better than yesterday. He endorses pain in his belly and back. He also reports feeling tired, but not as tired as yesterday. He denies chest pain, or shortness of breath. He also did not endorse any urinary frequency, pain with urination, or urinary urgency. Daughter and in the room verified history. Review of Systems Constitutional: Denied fever, night sweats, weakness, dizziness Eyes: Denied blurry vision Respiratory: Denied cough or shortness of breath. Cardiovascular: Additional Comments: Denied chest pain, palpitations Gastrointestinal: Denied nausea, vomiting, diarrhea. Genitourinary: no dysuria, no difficulty urinating or no urinary frequency Neurologic: Denied weaknesss, numbness, or tingling. Physical Exam Constitutional: Alert and oriented x3 in hopsital bed, appears pallor Eyes: Pupils were equal, normal shape, and reactive. Neck: Respiratory: CTA, no increased work of breathing Cardiovascular: Normal rate and regular rhythmn. No heart sounds ausculated. Radial pulses equal b/l. Capillary refill less than 2 sec. Gastrointestinal (Abdomen): mildly distended, no gross ascites, tender, normoactive bowel sounds. Skin: Warm dry, no apparent rashed. Psychiatric: Appropriate mood and affect. Lymphatic: No lymphadenopathy in the neck and cervical region. Results & Data Results & Data Vital Signs (Past 12 Hours) Vital Signs Temp Pulse Pulse Pulse Resp BP Pulse Ox 08/14/22 07:55 36.8 C 112 H 18 109/61 96 08/14/22 07:46 113 H 08/14/22 03:00 37.6 C H 116 H 18 103/63 97 08/14/22 00:06 113 H 08/13/22 22:15 38.2 C H 104 H 16 91/56 L 95 O2 Del Method O2 Flow Rate 08/14/22 07:55 Nasal Cannula 1 08/14/22 07:46 08/14/22 03:00 Room Air 1 08/14/22 00:06 08/13/22 22:15 Nasal Cannula 2 (1) Sepsis Sepsis acute organ dysfunction status: without acute organ dysfunction Sepsis type: sepsis due to unspecified organism Qualified Code(s): A41.9 - Sepsis, unspecified organism (2) Urinary tract infection Hematuria presence: with hematuria Urinary tract infection type: site unspecified Qualified Code(s): N39.0 - Urinary tract infection, site not specified; R31.9 - Hematuria, unspecified
--- NOTE | 2022-08-14 15:05 | Ultrasound Report ---
ULTRASOUND-GUIDED DIAGNOSTIC PARACENTESIS CLINICAL HISTORY: Ascites fluid; evaluate for SBP PROCEDURE: Procedure and risks were explained. Informed consent was obtained. A final timeout was com pleted. The right upper quadrant was prepped and draped in sterile fashion. 1% buffered lidocaine was utilized for skin anesthesia. Utilizing ultrasound guidance, a 5 Syrian safety centesis catheter was advanced into the right upper quadrant pocket of ascites. Ultrasound images were obtained. Approximately 400 mL of yellow ascites f luid was removed and sent to lab for analysis. The catheter was removed and Band-Aid applied. The pat ient tolerated the procedure well. Vital signs will be monitored postprocedure. IMPRESSION: Paracentesis as above. Performed, dictated, and signed by Jose Elias Romero PA-C; to be co-signed by Dr. Edward Foreman. Electronically signed by: Edward Foreman M.D. 08/14/2022 3:22 PM
[2022-08-14 15:21] LABS: Albumin Peritoneal Fluid < 1.5 gm/dl
[2022-08-14 15:26] LABS: Glucose Peritoneal Fluid 156 mg/dl; Total Protein Peritoneal Fluid < 3.0 gm/dl
[2022-08-14] MEDS: ACETAMINOPHEN 325 MG TAB PO PRN ×2 (16:01→23:08)
[2022-08-14 16:28] LABS: BUN Creatinine Ratio 14.6 (10-20); Calcium 9.8 mg/dl (8.6-10.3); Creatinine Clr Calc Pharmacy 34.7 ml/min; Est GFR (African American) 30.1 ml/min; Est GFR (Non-African American) 25.9 ml/min; Hematocrit (blood only) 23.4 % (42.0-52.0); Hemoglobin 7.9 g/dl (14.0-18.0); Potassium 5.4 mmol/L (3.5-5.1)
[2022-08-14 16:36] LABS: Appearance Peritoneal Fluid Slightly Hazy; Color Peritoneal Fluid Yellow; Lymphocytes, Fluid 44 %; Mono,Macrophage,Mesothelial 29 %; Neutrophils, Fluid 27 %; RBC Peritoneal Fluid Auto < 2000 /uL; WBC Peritoneal Fluid Auto 73 /ul (0-300)
[2022-08-14 16:53] LABS: Vitamin B12 562 pg/ml (180-914)
--- NOTE | 2022-08-14 18:37 | Billing Data ---
Date of Service August 14, 2022 Coding Level of Care Code 62651 SUB INP/OBS CARE MIN
[2022-08-14] MEDS: PARoxetine HCL 10 MG TAB PO SCH (19:56)
[2022-08-14] MEDS: ONDANSETRON 4 MG OD TAB PO PRN (20:20)
[2022-08-14] MEDS: DAPTOmycin 850 MG in SYRINGE 0 ML IV SCH (21:14)
[2022-08-15 01:08] LABS: Hematocrit (blood only) 19.3 % (42.0-52.0); Hemoglobin 6.6 g/dl (14.0-18.0)
[2022-08-15 01:18] LABS: BUN Creatinine Ratio 15.5 (10-20); Calcium 9.9 mg/dl (8.6-10.3); Creatinine Clr Calc Pharmacy 33.1 ml/min; Est GFR (African American) 28.4 ml/min; Est GFR (Non-African American) 24.5 ml/min
[2022-08-15] MEDS ORDERED: SODIUM CHLORIDE 0.9% 250 ML IV PRN ×2 (01:43→15:37)
[2022-08-15] MEDS ORDERED: ALBUMIN 5% 250 ML IV SCH (01:45)
[2022-08-15] MEDS: PIPERACILLIN/TAZOBACTAM 4.5 GM in DEXTROSE 5% 100 ML IV SCH ×3 (03:23→20:21)
[2022-08-15] MEDS: ALBUMIN 25% 25 GM/100 ML VIAL IV SCH ×5 (05:50→21:00)
[2022-08-15 06:37] LABS: Basophils # (auto) 0.01 K/uL (0-0.2); Basophils % (auto) 0.1 %; Eosinophils # (auto) 0.02 K/uL (0-0.50); Eosinophils % (auto) 0.2 %; Hematocrit (blood only) 23.5 % (42.0-52.0); Hemoglobin 8.1 g/dl (14.0-18.0); Immature Granulocytes # (auto) 0.09 K/uL (0.01-0.20); Immature Granulocytes % (auto) 1.1 %; Lymphocytes # (auto) 0.31 K/uL (1.2-3.4); Lymphocytes % (auto) 3.7 %; Mean Corpuscular Hemoglobin 34.9 pg (25.0-34.0); Mean Corpuscular Hgb Conc 34.5 g/dL (32.0-36.0); Mean Corpuscular Volume 101.3 fL (80.0-100.0); Mean Platelet Volume 11.1 fL (9.4-12.4); Monocytes # (auto) 0.96 K/uL (0.11-0.59); Monocytes % (auto) 11.3 %; Neutrophils # (auto) 7.08 K/uL (1.40-6.50); Neutrophils % (auto) 83.6 %; Platelet Count 44 K/uL (130-400); Red Blood Count 2.32 M/uL (4.70-6.10); White Blood Count 8.47 K/ul (4.8-10.8)
[2022-08-15 07:09] LABS: Anisocytosis Present; Echinocytes 1+; Ovalocytes 1+; Polychromasia 1+
[2022-08-15 07:11] LABS: Albumin Globulin Ratio 1.1 (0.9-2); Albumin Level 2.7 gm/dl (3.4-5.0); BUN Creatinine Ratio 16.2 (10-20); Bilirubin,Total 6.9 mg/dl (0.2-1.0); Calcium 10.3 mg/dl (8.6-10.3); Est GFR (African American) 27.5 ml/min; Est GFR (Non-African American) 23.7 ml/min; Globulin 2.5 gm/dl (2.5-4.0); Magnesium 1.9 mg/dl (1.7-2.4); Potassium 5.8 mmol/L (3.5-5.1); Total Protein 5.2 gm/dl (6.0-8.3)
[2022-08-15] MEDS: PANTOprazole 40 MG TAB PO SCH (07:40)
[2022-08-15] MEDS: rifAXIMin 550 MG TABLET PO SCH ×2 (07:40→20:30)
[2022-08-15] MEDS: MIDODRINE HCL 10 MG TAB PO SCH (07:40)
[2022-08-15] MEDS: VITAMIN B COMPLEX TAB PO SCH (07:40)
[2022-08-15] MEDS: SUCRALFATE 1 GM/10 ML UDC PO SCH ×4 (07:41→20:29)
[2022-08-15] MEDS: LACTULOSE SYRUP 20 GM/30 ML UDC PO SCH (07:41)
[2022-08-15] MEDS: CHOLECALCIFEROL 1,000 UNITS 25 MCG TAB PO SCH (07:41)
[2022-08-15] MEDS ORDERED: PATIROMER CALCIUM SORBITEX 8.4 GM PACK PO ONE (08:39)
--- NOTE | 2022-08-15 10:29 | Nephrology Consultation ---
Date of Consultation August 15, 2022 Assessment & Plan (1) COLLIN (acute kidney injury): (2) Hyperkalemia: (3) Hyponatremia: (4) Hypotension: (5) 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: (6) Macrocytic anemia: (7) Septicemia due to enterococcus: (8) Sepsis due to urinary tract infection: Plan 67-year-old gentleman with past medical history significant for stage IIIB CKD baseline creatinine 1.5-2 0, cirrhosis with SERRANO, admitted with generalized weakness and sepsis with enterococcal UTI and bacteremia. Noted to have COLLIN and multiple electrolyte abnormality including hyponatremia as well as hyperkalemia. Creatinine on admission was 2.1 which slightly worsened over last 2 days to 2.7 with multiple electrolyte abnormality possibly secondary to hemodynamic effect from hypotension and decreased intravascular volume in the setting of cirrhosis, hypoalbuminemia. -- Already received a dose of Veltassa this morning and follow-up lab is currently pending. -- continue hemodynamic support, avoid hypotension, continue midodrine and albumin. if renal function continues to worsen, octreotide can be considered -- as weight is down would continue to hold Lasix for now, monitor intake and output, if remains significantly positive would resume Lasix Thank you for allowing me to participate in your patient's care. It was a pleasure to see Spike. History of Present Illness Reason for Consultation: COLLIN, electrolyte abnormality. Attending Physician: Margarito Zamudio DO History of Present Illness Mr. Sebastian Quiñonez is a 67 year old male Past medical history significant for stage IIIB CKD, cirrhosis with portal hypertension, GAVE, admitted to the hospital with generalized weakness, abdominal pain and found to have UTI and bacteremia. Nephrology consult was requested to manage COLLIN with advanced CKD. EMR records are reviewed in detail during patient's visit. Spike was admitted on 08/13/2028 after he presented to ER on advise of his home health nurse for generalized weakness, CP, abdominal pain for 2 days. at home his blood pressure was noted to be low with systolic blood pressure around 80s, heart rate was in 130s and was having lethargy and occasional dizzy spells. In ER he was noted to have anemia with hemoglobin of 6.6 requiring 2 units of blood transfusion and hemoglobin improved to 8.1. He usually gets some Procrit, follows with Hematology. Has a longstanding history of GAVE with 19 units of blood transfusion since April 2021. No h/o melena or bright red blood in stool. Also recently admitted from July 14- with fluid retention, ascites and abdominal discomfort and had a paracentesis with 2.7 L fluid removed. During the hospital he had ED and had 2 units of blood transfusion. since discharge from hospitalization he did have an episode of COLLIN on outpatient lab, creatinine was 3.2 and his diuretics was on hold for few days. Lab on admission showed creatinine 2.1 which worsened over last 2 days to creatinine of 2.7 this morning with multiple electrolyte abnormality including sodium 128, potassium 5.8. he was started on IV albumin and continued on midodrine as he remained hypotensive. He has been off of Lasix and spironolactone on hold but his weight is down to 106 kg from admission weight of 108.6 kg. so also found to have UTI and bacteremia with Enterococcus currently on daptomycin. Has stage IIIB CKD with quite variable creatinine around 1.5-2.0 secondary to microvascular disease. Urinalysis with no proteinuria. Renal imaging showed asymmetric kidney suggesting some component of renovascular disease. Past medical history significant for cirrhosis with SERRANO, last meld score was 28, follows with recordak operator at [facility] for liver transplant. Other comorbidities include psoriatic arthritis, spinal stenosis, DJD of knee and shoulder, hypertension, recurrent nephrolithiasis, prior history of Lyme disease, history of [place]ral [place] [facility] [place] Overall he feels well, denies any significant shortness of breath, no fever or chills. urine output is relatively low around 500 mL and net positive. blood pressure low, has been on midodrine. Allergies Allergy/AdvReac Type Severity Reaction Status Date / Time tamsulosin Allergy Intermediate HIVES Verified 08/13/22 16:20 etanercept [From Enbrel] AdvReac Intermediate Increased Verified 08/13/22 16:20 infections Home Medications Medication Instructions Recorded Confirmed Type cholecalciferol (vitamin D3) 50 50 mcg PO QAM #90 caps 05/15/21 08/13/22 Rx mcg (2,000 unit) capsule vitamin B complex 1 tab PO DAILY 10/23/21 08/13/22 History rifaximin 550 mg tablet (Xifaxan) 550 mg PO BID #60 tabs 01/16/22 08/13/22 Rx darbepoetin coretta in polysorbat 100 100 mcg subcut .COMPLEX PRN 05/23/22 08/13/22 History mcg/0.5 mL in polysorbate NEEDED injection syringe paroxetine HCl 10 mg tablet 10 mg PO QPM 06/21/22 08/13/22 History midodrine 10 mg tablet 10 mg PO TID #90 tabs 07/21/22 08/13/22 Rx spironolactone 50 mg tablet 50 mg PO BID #60 tabs 07/21/22 08/13/22 Rx sucralfate 100 mg/mL oral 10 ml PO ACHS #1,000 mL 07/21/22 08/13/22 Rx suspension ondansetron HCl 4 mg tablet 4 mg PO Q8H PRN Nausea And 08/08/22 08/13/22 Rx Vomiting #30 tabs pantoprazole 40 mg tablet,delayed 40 mg PO BID #60 tabs 08/08/22 08/13/22 Rx release lactulose 10 gram/15 mL oral 20 g (30 mL) PO DAILY #946 mL 08/10/22 08/13/22 Rx solution Patient History Medical History (Updated 08/15/22 @ 12:03 by Debra Vargas MD) Anemia Ascites Calculus of kidney Cervical disc disease CKD (chronic kidney disease), stage III Depression Esophageal varices determined by endoscopy GAVE (gastric antral vascular ectasia) Per records GERD (gastroesophageal reflux disease) History of GI bleed discharged from [facility] 06/10/22: borderline hemorrhagic shock-upper GI bleed suspected to be d/t GAVE-received 1 unit of PRBC History of herniated intervertebral disc lumbar area History of SCC (squamous cell carcinoma) of skin S/p removal- follows with derm Hx of blood clots 06/2021 @ [facility]- pt reports blood clot in left arm around IV site after being discharged from hospital- no meds due to current blood loss issue- warm compresses to site per pt- 2 ultrasounds done - no current issues Hx of upper gastrointestinal hemorrhage recent hospitalization at [facility] 06/07/2022 Hyperkalemia Hypothyroidism 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 current work-up for planned liver transplant per [facility] transplant clinic records Lumbar disc disease Oral mucositis On mouthwash daily- no recent issues Pancytopenia Portal hypertensive gastropathy Post-traumatic urethral stricture Psoriasis Psoriatic arthritis PVT (portal vein thrombosis) denies Spinal stenosis EPIDURAL INJECTIONS IN PAST FOR PAIN RELIEF TMJ arthralgia Urinary retention Urinary tract infection Wide-complex tachycardia ON CARDVEDILOL-F/U DR VANESSA LAST VISIT<1 YR AGO Surgical History H/O foot surgery excision of neuroma b/l feet History of appendectomy History of arthroscopy RT KNEE History of cataract surgery RT/LEFT History of cholecystectomy History of esophagogastroduodenoscopy (EGD) last 03/21/22 @ [facility] 02/08/22 Dr. Sara Cloud- EGD- Grade I esophageal varices, Portal hypertensive gastropathy History of herniorrhaphy right inguinal History of lithotripsy History of liver biopsy History of repair of rotator cuff RT/LEFT History of tooth extraction History of urologic surgery Urethral reconstruction 4 years ago at [facility] Nausea and vomiting after administration of anesthetic agent S/P colonoscopy S/P epidural steroid injection S/P orchiectomy Right age 9 for UDT S/P urological surgery (2018) [facility] [place] [place] Suprapubic catheter AND REMOVAL Family History Grandmother (Maternal) Diabetes Father Renal cancer Mother Aortic aneurysm Denies family history of Ovarian cancer Prostate cancer Myocardial infarction Breast cancer Colorectal cancer Social History Smoking Status: Never smoker Second Hand Exposure: No; Do You Dip or Chew Tobacco: No; Hx Alcohol Use: No Hx Substance Use: No Preferred Language: Barbadian Communication Ability: Effective Visual Impairment: No Limitations Hearing Ability: Hard of Hearing Director Athletic Required: No Beliefs That Will Affect Care: None marital status: / Current Living Situation: Family Current Living Situation Comment: Lives with son and [id number] current occupational status: retired How many Children do You have: 1 Feels Safe at Home: Yes Safety Concerns: Feels Safe At This Time Diet: low salt Diet Comment: LOW SALT caffeine: Yes during the past year weight has: remained stable Dental Care, Regularly: No Physical Activity Frequency: Other Physical Activity Frequency Comment: does all housework/outside work and cuts wood Seatbelt Use: never Sunscreen Use: No Assistive Devices: Cane Review of Systems Review of Systems: ROS was otherwise unremarkable. Physical Exam Constitutional: WD/WN, vitals as above no acute distress Eyes: + anicteric sclerae Neck: normal visual inspection Respiratory: no respiratory distress Auscultation: lungs clear to auscultation bilaterally Cardiovascular: Rate/Rhythm: regular rate and regular rhythm Heart Sounds: normal S1 and normal S2 Extremities: + edema Gastrointestinal (Abdomen): Inspection/Auscultation: abdomen normal to inspection and normal bowel sounds Percussion/Palpation: abdomen soft; abdomen nontender Musculoskeletal: Mildly edematous bilateral upper and lower extremity. Skin: Few bruises Neurologic: no focal motor deficits and not confused Motor/Sensory: + asterixis Psychiatric: Orientation: alert and oriented x 3 Affect: euthymic affect Results & Data Vital Signs (Past 12 Hours) Vital Signs Temp Pulse Pulse Resp BP BP Pulse Ox 08/15/22 07:22 36.5 C 64 18 94/58 L 97 08/15/22 04:08 36.8 C 70 16 99/63 L 96 08/15/22 03:08 37.3 C 85 18 91/54 L 95 08/15/22 02:38 37.4 C 87 20 96/60 L 95 08/15/22 02:23 37.1 C 91 H 18 98/59 L 94 08/15/22 02:07 37.9 C H 96 H 16 88/52 L 94 08/14/22 23:08 38.8 C H 125 H 20 93 08/14/22 22:30 37.5 C 109 H 22 108/63 94 O2 Del Method O2 Flow Rate 08/15/22 07:22 Room Air 08/15/22 04:08 08/15/22 03:08 08/15/22 02:38 08/15/22 02:23 08/15/22 02:07 08/14/22 23:08 Room Air 08/14/22 22:30 Nasal Cannula 2 PG Care Time/CCT Total # of Minutes Spent Total Time Spent with Patient: Total time spent is greater than 50% in coordination of care (as documented) at patient's floor/unit and/or counseling patient: Coding Level of Care Code 46031 IN/OBS CONSULT LVL 5,80M Diagnoses COLLIN (acute kidney injury) N17.9 Hyperkalemia E87.5 Hyponatremia E87.1 Hypotension I95.9 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 K75.81; K74.60 Macrocytic anemia D53.9 Septicemia due to enterococcus A41.81 Sepsis due to urinary tract infection A41.9; N39.0
--- NOTE | 2022-08-15 10:31 | Gastroenterology Progress Note ---
Date of Service August 15, 2022 Assessment & Plan (1) Sepsis: Plan: Pt is a 67 yo male w hx of SERRANO cirrhosis (MELD 32), complicated by varices, phg, GAVE, CKD, chronic anemia who is currently admitted with suspected urosepsis (blood and urine cx growing GPC; + VRE and E. faecium). Blood ct lower than baseline but no gross GI bleeding noted, improved w 2U PRBC transfusion. Diagnostic paracentesis done 08/14 wo signs of SBP. - Protonix 40mg BID, Carafate 1g QID - PRBC transfusion for goal Hgb >7. Monitor blood ct closely - Electrolyte correction per primary team - Continue Lactulose (titrate for goal bm 3-5 a day); Xifaxan 550mg BID - Empiric coverage w Zosyn IV + Daptomycin IV - Increase Midodrine to 15mg TID, add Octreotide 50mcg IV gtt - Gentle albumin 25% 25g TID ADDENDUM: During afternoon rounds, pt reports 6 BMs w black and red blood. BP 106/62. Will restart PPI gtt, continue Octreotide gtt. Obtain CBC. Will have him at diet for the rest of the day and make him NPO after MN for EGD 08/16 Admission and Anticipated Discharge Date Admission Date: August 13, 2022 Supervising Physician Co-Signing Physician Notes Attg add: Pt with hypotension, darkblack red stool, creat persistently above baseline. Suspect bleeding related to portal HTN. Plan as above. Subjective Pt has more energy. Sitting up in chair. Denies HAs but still having light headedness. Denies CP, SOB, abd pain, n/v. Low appetite. No BMs yet Review of Systems Review of Systems: All systems reviewed & are unremarkable except as noted in HPI & below Physical Exam Constitutional: WD/WN, vitals as above well groomed, cooperative and comfortable Eyes: Icteric sclera, PERRLA, EOMs intact ENMT: external ear and nose normal, oropharynx normal Respiratory: Diminished bases, no respiratory distress noted Cardiovascular: RRR, no murmur, no edema Gastrointestinal (Abdomen): normal bowel sounds, soft, nontender, no hepa tosplenomegaly Skin: no rashes, warm and dry + jaundice Neurologic: Motor/Sensory: + asterixis Psychiatric: A+Ox3, euthymic affect Lymphatic: + lymphedema (bilateral LE, non pitting ) Results & Data Vital Signs (Past 12 Hours) Vital Signs Temp Pulse Pulse Resp BP BP Pulse Ox 08/15/22 07:22 36.5 C 64 18 94/58 L 97 08/15/22 04:08 36.8 C 70 16 99/63 L 96 08/15/22 03:08 37.3 C 85 18 91/54 L 95 08/15/22 02:38 37.4 C 87 20 96/60 L 95 08/15/22 02:23 37.1 C 91 H 18 98/59 L 94 08/15/22 02:07 37.9 C H 96 H 16 88/52 L 94 08/14/22 23:08 38.8 C H 125 H 20 93 08/14/22 22:30 37.5 C 109 H 22 108/63 94 O2 Del Method O2 Flow Rate 08/15/22 07:22 Room Air 08/15/22 04:08 08/15/22 03:08 08/15/22 02:38 08/15/22 02:23 08/15/22 02:07 08/14/22 23:08 Room Air 08/14/22 22:30 Nasal Cannula 2 (1) Sepsis Sepsis acute organ dysfunction status: without acute organ dysfunction Sepsis type: sepsis due to unspecified organism Qualified Code(s): A41.9 - Sepsis, unspecified organism
--- NOTE | 2022-08-15 10:41 | Hospitalist Progress Note ---
Date of Service August 15, 2022 Assessment & Plan (1) Sepsis: Plan: Spike is a 67 yo male with a pmh of cirrhosis, GAVE, CHF who presents with bacteremia, anemia and Acute on chronic kidney disease. Today he is hemodynamically stable. #Sepsis Lactate 2.2 -> 2.0 with NSS given in the ER. Blood culture showed enterococcus. Bacteruria without urinary symptoms. Paracentesis was negative for WBC or bacteria. Hemodynamically stable * Narrowed to only Daptomycin 850 mg q24 #Hyperkalemia K: 5.8 * Patiromer ordered. #Anemia Hgb: admission: 8.0 > 6.8 > RBC given> 7.9 > 6.6 > RBC given > 8.1 today. Likely GAVE bleed. Potential additional dilutionary effect. * Given an additional unit last night. 2 so far. #Gastric Antral Vascular Ectasia Multiple blood transfusions as above. Following with GI. Likely GAVE bleed. * Pantoprazole 40 mg q5 hours IV * Octreotide 500 m * Albumin 25gm in 100mls @ q8h IV #RUQ Abdominal Pain Chronic. Reportedly always has this - suspect from ascites. #Chronic Kidney Disease, stage III, Cre 2.3 > 2.6, trending up. At baseline, continue to monitor. #Liver Cirrhosis secondary to SERRANO, chronic stable Pt is questioning if he is on the transplant list, MELD 26, 85.4% 90 day survival * Hold spironolactone due to hypotension and tachycardia in setting of suspected infection * Continue midodrine #UTI Denies urinary symptoms. Bacteruria on UA. #Urethral stricture No urine retention on CT. Monitor for worsening urine output. Urethral dilation performed June 12. #Spinal Stenosis Suspect cause of his back pain #Bacteremia See Sepsis VTE Prophylaxis - deferred due to repeated need for blood transfusions and GAVE Diet - low Na Disposition - admit to med/tele DNR/DNI (2) Urinary tract infection: Plan: Asymptomatic, bacteruria. (3) Anemia: (4) Urethral stricture: (5) 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: (6) Spinal stenosis: (7) Abdominal pain: (8) CKD (chronic kidney disease), stage III: (9) GAVE (gastric antral vascular ectasia): (10) Bacteremia: Plan: Blood cultures postitive for enterococcus. Admission and Anticipated Discharge Date Admission Date: August 13, 2022 Supervising Physician Co-Signing Physician Notes I personally examined the patient and verified all [place] points of history and exam, discussed case, and agree with decision making with Mikki Kaur MS4 and Dr. Leonard Feels weak. Stomach hurting some. Bloody bowel movements. Vitals noted, in general he is fatigued but fortunately no distress. HEENT normocephalic atraumatic mucous membranes moist. Breathing unlabored no accessory muscle use. Neuro shows cranial nerves II through XII to be grossly intact gross motor and sensory intact. Skin with diffuse bruising, he has some scleral icterus Sepsisblood cultures showing bacteremiadespite lack of urinary symptoms, his urine and blood matchprobably UTI leading to sepsis/bacteremiano need to continue Zosyn since no other infections have manifest, peritoneal fluid looked reassuring. Continue daptomycin for bacteremia/sepsis. AKIon CKDsuspect from dehydration/prerenal/septic physiologycannot rule out an element of ATN at this time, cannot rule out an element of poor forward flow from his anemiaand given that he is bleeding and newly anemic, his worsening creatinine likely is all of the above with an acute on acute pattern. Continue to follow closely. Transfuse as needed. Gave material more for hyperkalemiarepeat in the afternoon showed improvement Anemianow "acute on acute"yesterday acute on chronic seem to be dilutional given that he was not showing any bleeding, but after transfusion his hemoglobin came up, then dropped again, now he has upper GI symptoms and bloody bowel movementsagree with acid suppression, octreotide, EGD tomorrow. Has been transfused a second unit, asking blood bank to make sure that we have 2 units on hold at all times. Serial vitals, serial exams, serial hemoglobins. DVT prophylaxispharmacologic contraindicated due to GAVE syndrome, SCDs have been ordered Otherwise as above Review of Systems Constitutional: Denied fever, night sweats, dizziness Endorses fatigue, weakness, Eyes: Endorses blurry and double vision. (chronic) Respiratory: Denied cough or shortness of breath. Cardiovascular: Additional Comments: Denied chest pain, palpitations Gastrointestinal: Denied vomiting. Endorses nausea, dirrhea, dark stools, abdominal pain. Genitourinary: no dysuria, no difficulty urinating or no urinary frequency Neurologic: Denied numbness, or tingling. Endorses weaknesss, Physical Exam Constitutional: Alert and oriented x3 in hopsital bed Eyes: Pupils were equal, normal shape. Neck: Respiratory: CTA, no increased work of breathing Cardiovascular: Normal rate and regular rhythmn. Radial pulses equal b/l. Capillary refill less than 2 sec. Gastrointestinal (Abdomen): Mildly distended, tender, normoactive bowel sounds. Musculoskeletal: Upper extremity 4/5 strength Lower extremity 4/5 strength Skin: Warm dry, no apparent rashed. Psychiatric: Appropriate mood and affect. Results & Data Results & Data Vital Signs (Past 12 Hours) Vital Signs Temp Pulse Pulse Resp BP BP Pulse Ox 08/15/22 07:22 36.5 C 64 18 94/58 L 97 08/15/22 04:08 36.8 C 70 16 99/63 L 96 08/15/22 03:08 37.3 C 85 18 91/54 L 95 08/15/22 02:38 37.4 C 87 20 96/60 L 95 08/15/22 02:23 37.1 C 91 H 18 98/59 L 94 08/15/22 02:07 37.9 C H 96 H 16 88/52 L 94 08/14/22 22:01 102 H 08/14/22 23:08 38.8 C H 125 H 20 93 08/14/22 22:30 37.5 C 109 H 22 108/63 94 O2 Del Method O2 Flow Rate 08/15/22 07:22 Room Air 08/15/22 04:08 08/15/22 03:08 08/15/22 02:38 08/15/22 02:23 08/15/22 02:07 08/14/22 22:01 08/14/22 23:08 Room Air 08/14/22 22:30 Nasal Cannula 2 (1) Sepsis Sepsis acute organ dysfunction status: without acute organ dysfunction Sepsis type: sepsis due to unspecified organism Qualified Code(s): A41.9 - Sepsis, unspecified organism (2) Urinary tract infection Hematuria presence: with hematuria Urinary tract infection type: site unspecified Qualified Code(s): N39.0 - Urinary tract infection, site not specified; R31.9 - Hematuria, unspecified
[2022-08-15] MEDS ORDERED: STAT IV STA (11:58)
[2022-08-15] MEDS: MIDODRINE HCL 2.5 MG TAB PO SCH ×2 (12:16→17:18)
[2022-08-15] MEDS: OCTREOTIDE ACETATE 500 MCG in DEXTROSE 5% 100 ML IV SCH ×2 (13:01→20:42)
[2022-08-15] MEDS: PANTOprazole 40 MG in DEXTROSE 5% 100 ML IV SCH ×3 (13:02→22:30)
--- NOTE | 2022-08-15 13:10 | XCELERA ---
[id number]
[2022-08-15 13:23] LABS: Basophils # (auto) 0.01 K/uL (0-0.2); Basophils % (auto) 0.2 %; Eosinophils # (auto) 0.05 K/uL (0-0.50); Eosinophils % (auto) 0.8 %; Hematocrit (blood only) 22.4 % (42.0-52.0); Hemoglobin 7.5 g/dl (14.0-18.0); Immature Granulocytes # (auto) 0.03 K/uL (0.01-0.20); Immature Granulocytes % (auto) 0.5 %; Lymphocytes # (auto) 0.35 K/uL (1.2-3.4); Lymphocytes % (auto) 5.3 %; Mean Corpuscular Hemoglobin 34.9 pg (25.0-34.0); Mean Corpuscular Hgb Conc 33.5 g/dL (32.0-36.0); Mean Corpuscular Volume 104.2 fL (80.0-100.0); Mean Platelet Volume 9.8 fL (9.4-12.4); Monocytes # (auto) 0.66 K/uL (0.11-0.59); Neutrophils # (auto) 5.47 K/uL (1.40-6.50); Neutrophils % (auto) 83.2 %; Platelet Count 34 K/uL (130-400); RDW Coefficient of Variation 25.3 % (11.5-14.5); RDW Standard Deviation 93.7 fL (36.4-46.3); Red Blood Count 2.15 M/uL (4.70-6.10); White Blood Count 6.57 K/ul (4.8-10.8)
[2022-08-15 13:39] LABS: BUN Creatinine Ratio 16.7 (10-20); Calcium 10.6 mg/dl (8.6-10.3); Creatinine Clr Calc Pharmacy 32.3 ml/min; Est GFR (African American) 27.7 ml/min; Est GFR (Non-African American) 23.9 ml/min; Potassium 5.1 mmol/L (3.5-5.1)
[2022-08-15 13:57] LABS: Anisocytosis Present; Polychromasia 1+
[2022-08-15] MEDS ORDERED: FAMOTIDINE 20 MG in SYRINGE 3 ML IV STA (14:29)
[2022-08-15 14:52] LABS: Appearance Urine Clear (Clear); Bacteria Urine Automated Negative (Negative); Bilirubin Urine Negative (Negative); Blood Urine 2+ (Negative); Color Urine Yellow; Epithelial Cell Urine Auto >30 /lpf (0-5); Glucose Urine UA Negative (Negative); Ketones Urine Negative (Negative); Leukocyte Esterase Urine 2+ (Negative); Nitrite Urine Negative (Negative); Protein Urine Trace (Negative); Specific Gravity Urine 1.019 (1.000-1.030); Urobilinogen Urine Negative (Negative); pH Urine 5.5 (4.5-7.5)
--- NOTE | 2022-08-15 18:29 | Billing Data ---
Date of Service August 15, 2022 Coding Level of Care Code 86620 SUB INP/OBS CARE MIN
[2022-08-15] MEDS ORDERED: PIPERACILLIN/TAZOBACTAM 4.5 GM (over 30 mins) IV ONE (18:45)
[2022-08-15] MEDS: DAPTOmycin 850 MG in SYRINGE 0 ML IV SCH (19:59)
[2022-08-15 20:26] LABS: Hematocrit (blood only) 21.8 % (42.0-52.0); Hemoglobin 7.3 g/dl (14.0-18.0)
[2022-08-15] MEDS: PARoxetine HCL 10 MG TAB PO SCH (20:30)
[2022-08-16 02:31] LABS: Basophils # (auto) 0.02 K/uL (0-0.2); Basophils % (auto) 0.3 %; Eosinophils # (auto) 0.17 K/uL (0-0.50); Eosinophils % (auto) 2.9 %; Hematocrit (blood only) 21.1 % (42.0-52.0); Hemoglobin 7.2 g/dl (14.0-18.0); Immature Granulocytes # (auto) 0.02 K/uL (0.01-0.20); Immature Granulocytes % (auto) 0.3 %; Lymphocytes # (auto) 0.24 K/uL (1.2-3.4); Lymphocytes % (auto) 4.1 %; Mean Corpuscular Hemoglobin 35.1 pg (25.0-34.0); Mean Corpuscular Hgb Conc 34.1 g/dL (32.0-36.0); Mean Corpuscular Volume 102.9 fL (80.0-100.0); Mean Platelet Volume 9.8 fL (9.4-12.4); Monocytes # (auto) 0.59 K/uL (0.11-0.59); Monocytes % (auto) 10.1 %; Neutrophils # (auto) 4.83 K/uL (1.40-6.50); Neutrophils % (auto) 82.3 %; Platelet Count 35 K/uL (130-400); Red Blood Count 2.05 M/uL (4.70-6.10); White Blood Count 5.87 K/ul (4.8-10.8)
[2022-08-16 02:45] LABS: BUN Creatinine Ratio 17.3 (10-20); Calcium 10.1 mg/dl (8.6-10.3); Creatinine Clr Calc Pharmacy 33.3 ml/min; Est GFR (African American) 28.8 ml/min; Est GFR (Non-African American) 24.8 ml/min; Phosphorus 2.8 mg/dl (2.5-4.9); Potassium 5.1 mmol/L (3.5-5.1)
[2022-08-16 02:53] LABS: Echinocytes 1+; Polychromasia 1+
[2022-08-16] MEDS: PANTOprazole 40 MG in DEXTROSE 5% 100 ML IV SCH ×3 (03:54→14:09)
[2022-08-16] MEDS: PIPERACILLIN/TAZOBACTAM 4.5 GM in DEXTROSE 5% 100 ML IV SCH (03:58)
[2022-08-16] MEDS: OCTREOTIDE ACETATE 500 MCG in DEXTROSE 5% 100 ML IV SCH ×2 (06:19→17:42)
--- NOTE | 2022-08-16 07:29 | Hospitalist Progress Note ---
Date of Service August 16, 2022 Assessment & Plan (1) Sepsis: Plan: Spike is a 67 yo male with a pmh of cirrhosis, GAVE, CHF who presents with bacteremia, anemia and Acute on chronic kidney disease. Today he is hemodynamically stable. #Sepsis Lactate 2.2 -> 2.0 with NSS given in the ER. Blood culture showed enterococcus. Bacteruria without urinary symptoms. Paracentesis was negative for WBC or bacteria. Hemodynamically stable. WBC in normal range. * Continue Daptomycin 850 mg q24 * Continue Zosyn while awaiting EGD #Back Pain See HPI. Likely MSK due to tenderness with palpation, on the left side. Will continue to monitor. #Hyperkalemia K: 5.8 >> 5.1 * No additional Patiromer today. #Anemia Hgb: admission: 8.0 > 6.8 > RBC given> 7.9 > 6.6 > RBC given > 8.1 > 7.5 today. Likely GAVE bleed. Potential additional dilutionary effect. * 2 units of blood so far. #Gastric Antral Vascular Ectasia Multiple blood transfusions as above. Likely GAVE bleed. * GI following. EGD attempted today, too much food residue, will attempt tomorrow. * Pantoprazole 40 mg q5 hours IV * Octreotide 500 m * Albumin 25gm in 100mls @ q8h IV #RUQ Abdominal Pain Chronic. Reportedly always has this - suspect from ascites. #Chronic Kidney Disease, stage III, Cre 2.3 > 2.6 > 2.55. At baseline, continue to monitor. #Liver Cirrhosis secondary to SERRANO, chronic stable Pt is questioning if he is on the transplant list, MELD 26, 85.4% 90 day survival * Hold spironolactone due to hypotension and tachycardia in setting of suspected infection * Continue midodrine #UTI Denies urinary symptoms. Bacteruria on UA. #Urethral stricture No urine retention on CT. Monitor for worsening urine output. Urethral dilation performed June 12. #Spinal Stenosis Suspect cause of his back pain #Bacteremia See Sepsis VTE Prophylaxis - deferred due to repeated need for blood transfusions and GAVE Diet - low Na Disposition - admit to med/tele DNR/DNI (2) Urinary tract infection: Plan: Asymptomatic, bacteruria. (3) Anemia: (4) Urethral stricture: (5) 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: (6) Spinal stenosis: (7) Abdominal pain: (8) CKD (chronic kidney disease), stage III: (9) GAVE (gastric antral vascular ectasia): (10) Bacteremia: Plan: Blood cultures postitive for enterococcus. Admission and Anticipated Discharge Date Admission Date: August 13, 2022 Supervising Physician Co-Signing Physician Notes I personally examined the patient and verified all [place] points of history and exam, discussed case, and agree with decision making with Mikki Kaur MS4 and Dr. Leonard Seen/attempted to see multiple times today. An EGD earlier, then after EGD was sleeping, on return visit in the bathroom, and another return visit sleeping again. In discussion with medical student and resident physician, overall much more stable today, seen by multiple consultants as wellin the end allowed to rest. Vitals noted, in general resting comfortably multiple times and in no distress. HEENT normocephalic atraumatic mucous membranes moist. Breathing unlabored no accessory muscle use. Neuro shows cranial nerves II through XII to be grossly i ntact gross motor and sensory intact. Skin with diffuse bruising, he has some scleral icterus Sepsisblood cultures showing bacteremiadespite lack of urinary symptoms, his urine and blood matchprobably UTI leading to sepsis/bacteremiaecho reassuring, follow-up blood cultures negative thus farcontinue daptomycin AKIon CKDsuspect from dehydration/prerenal/septic physiologycannot rule out a n element of ATN at this time, cannot rule out an element of poor forward flow from his anemiaand given that he is bleeding and newly anemic, creatinine improved a little with further transfusions and stable hemoglobin. Continue to follow closely. Anemianow "acute on acute"previously acute on chronic seem to be dilutional given that he was not showing any bleeding, but after transfusion his hemoglobin came up, then dropped again, and subsequently developed upper GI symptoms and bloody bowel movementsappreciate GI assistancerepeat EGD tomorrow. Acid suppression and octreotide. DVT prophylaxispharmacologic contraindicated due to GAVE syndrome, SCDs have been ordered Otherwise as above Subjective Today, Spike is feeling about the same. He had 2 bowel movements with BRB last night. He does report a new back pain that stretches to the front. Describes it as "crampy". It increases in pain with palpation. He ranks it a 8/10. He denies shortness of breath, burning, pressure on chest. Review of Systems Constitutional: Denied fever, night sweats, fatigue, weakness, dizziness Eyes: Denied blurry vision Respiratory: Denied cough or shortness of breath. Cardiovascular: Additional Comments: Denied chest pain, palpitations Gastrointestinal: Denied nausea, vomiting, diarrhea Endorses abdominal pain and blood in his stool. Genitourinary: no dysuria, no difficulty urinating or no urinary frequency Physical Exam Constitutional: Alert and oriented x3 in hopsital bed, less pale than yesterday. Eyes: Pupils were equal, normal shape, and reactive. Neck: Pain on with pressure in cervical spine region. Respiratory: CTA, no increased work of breathing Cardiovascular: Normal rate and regular rhythmn. No heart sounds ausculated. Radial pulses equal b/l. Capillary refill less than 2 sec. Gastrointestinal (Abdomen): Nondistended, tender, normoactive bowel sounds. Musculoskeletal: pain on palpation approx T8 region. Skin: Warm dry, no apparent rashed. Psychiatric: Appropriate mood and affect. Lymphatic: No lymphadenopathy in the neck and cervical region. Results & Data Results & Data Vital Signs (Past 12 Hours) Vital Signs Temp Pulse Pulse Resp BP Pulse Ox O2 Del Method 08/16/22 07:22 36.8 C 79 18 96/60 L 98 Room Air 08/15/22 22:45 37.1 C 84 18 94/56 L 95 Room Air 08/16/22 04:00 36.6 C 78 18 93/60 L 96 Room Air 08/15/22 22:00 69 08/15/22 20:00 Room Air (1) Sepsis Sepsis acute organ dysfunction status: without acute organ dysfunction Sepsis type: sepsis due to unspecified organism Qualified Code(s): A41.9 - Sepsis, unspecified organism (2) Urinary tract infection Hematuria presence: with hematuria Urinary tract infection type: site unspecified Qualified Code(s): N39.0 - Urinary tract infection, site not specified; R31.9 - Hematuria, unspecified
[2022-08-16] MEDS: rifAXIMin 550 MG TABLET PO SCH ×2 (08:13→20:07)
[2022-08-16] MEDS: MIDODRINE HCL 2.5 MG TAB PO SCH ×3 (08:13→17:42)
[2022-08-16] MEDS: LACTULOSE SYRUP 20 GM/30 ML UDC PO SCH (08:14)
[2022-08-16] MEDS: SUCRALFATE 1 GM/10 ML UDC PO SCH ×4 (08:14→20:07)
[2022-08-16] MEDS: VITAMIN B COMPLEX TAB PO SCH (08:14)
[2022-08-16] MEDS: CHOLECALCIFEROL 1,000 UNITS 25 MCG TAB PO SCH (08:15)
[2022-08-16] MEDS: ACETAMINOPHEN 325 MG TAB PO PRN (08:25)
[2022-08-16 08:59] LABS: Hematocrit (blood only) 21.7 % (42.0-52.0); Hemoglobin 7.5 g/dl (14.0-18.0)
--- NOTE | 2022-08-16 09:17 | Gastroenterology Progress Note ---
Date of Service August 16, 2022 Assessment & Plan (1) Sepsis: Plan: Pt is a 67 yo male w hx of SERRANO cirrhosis (MELD 32), complicated by varices, phg, GAVE, CKD, chronic anemia who is currently admitted with suspected urosepsis (blood and urine cx growing GPC; + VRE and E. faecium). Diagnostic paracentesis done 08/14 wo signs of SBP. He started having dark red blood per rectum w coffee ground stools yesterday afternoon. BP soft but stable, renal function and electrolytes abnormalities improving, blood ct dropped <1g since yesterday. - Protonix gtt, Carafate 1g QID - PRBC transfusion for goal Hgb >7. Monitor blood ct closely - Electrolyte correction per primary team - Continue Lactulose (titrate for goal bm 3-5 a day); Xifaxan 550mg BID - Daptomycin IV - Midodrine 15mg TID, add Octreotide 50mcg IV gtt - Keep NPO, plan for EGD today. Admission and Anticipated Discharge Date Admission Date: August 13, 2022 Supervising Physician Co-Signing Physician Notes Attg add" Pt with 2 episodes of dark red blood last night, no further today. Hgb mildly downtrending, no x fusion. BP 90-100 on midodrine 15 TID. EGD shows GAVE, flex sig with portal colopathy. Afebrile. Pt with tap - PMN count 73, alhtough done after 2 days of Zosyn. Zosyn has been discontinued, on dapto. Creat stable in mid 2's, U na 38, followed by nephro, off diuretics. On exam, he is lucid, pleasant. Exam remarkable for worsening volume overload. RECS: EGD tomorrow for APC of GAVE Abx per primary Cont octreotide for hemodynamic/renal support. Can d/c PPI gtt, switch to oral BID. Consider resuming diuretics, possibly with albumin -- will defer to nephro. Subjective Pt had 2 more episodes of rectal bleeding in the evening. Currently denies CP, SOB. + nausea (chronic per his report), and still w generalized abd pain. Review of Systems Review of Systems: All systems reviewed & are unremarkable except as noted in HPI & below Physical Exam Constitutional: WD/WN, vitals as above well groomed, cooperative and comfortable Eyes: EOMs intact, PERRLA, icteric sclera ENMT: external ear and nose normal, oropharynx normal Respiratory: normal respiratory effort, lungs clear to auscultation Cardiovascular: RRR, no murmur, no edema Gastrointestinal (Abdomen): TTP generalized, BS hypoactive, soft Skin: no rashes, warm and dry + jaundice Neurologic: Motor/Sensory: + asterixis Psychiatric: A+Ox3, euthymic affect Lymphatic: + lymphedema (+1 pitting edema bilateral LE ) Results & Data Vital Signs (Past 12 Hours) Vital Signs Temp Pulse Pulse Resp BP Pulse Ox O2 Del Method 08/16/22 07:22 36.8 C 79 18 96/60 L 98 Room Air 08/15/22 22:45 37.1 C 84 18 94/56 L 95 Room Air 08/16/22 04:00 36.6 C 78 18 93/60 L 96 Room Air 08/15/22 22:00 69 (1) Sepsis Sepsis acute organ dysfunction status: without acute organ dysfunction Sepsis type: sepsis due to unspecified organism Qualified Code(s): A41.9 - Sepsis, unspecified organism
--- NOTE | 2022-08-16 11:00 | Nephrology Progress Note ---
Date of Service August 16, 2022 Assessment & Plan (1) COLLIN (acute kidney injury): (2) Hyperkalemia: (3) Bacteremia: (4) Sepsis: (5) Upper GI bleeding: (6) Urinary tract infection: Plan 67-year-old gentleman with past medical history significant for stage IIIB CKD b/l cr 1.5-2 0, cirrhosis with SERRANO, admitted with generalized weakness and sepsis with enterococcal UTI and bacteremia. Noted to have COLLIN and multiple electrolyte abnormality including hyponatremia as well as hyperkalemia. Creatinine on admission was 2.1 which slightly worsened over last 2 days to 2.7 with multiple electrolyte abnormality possibly secondary to hemodynamic effect from hypotension and decreased intravascular volume in the setting of cirrhosis, hypoalbuminemia. Creatinine staying relatively stable, electrolyte abnormality slightly improved, sodium 130 and potassium 5.1. Hemoglobin dropped again to 7.2, GI started on octreotide GTT and plan for EGD today. -- continue hemodynamic support, monitor renal function and electrolyte -- continue to hold diuretics for now Admission and Anticipated Discharge Date Admission Date: August 13, 2022 Cruzito Lala was seen and evaluated this morning. He had several bloody bowel movement yesterday and has been having some abdominal pain, hemoglobin again dropped to 7.2. Renal function staying relatively stable. Blood pressure remains low. Has decent urine output, net positive. Review of Systems Review of Systems: ROS was otherwise unremarkable. Physical Exam Constitutional: WD/WN, vitals as above + ill appearing; no acute distress Eyes: + anicteric sclerae Neck: normal visual inspection Respiratory: no respiratory distress Auscultation: lungs clear to auscultation bilaterally Cardiovascular: Rate/Rhythm: regular rate and regular rhythm Heart Sounds: normal S1 and normal S2 Extremities: + edema Musculoskeletal: Mildly edematous bilateral upper and lower extremity. Skin: Few bruises Neurologic: no focal motor deficits and not confused Motor/Sensory: + asterixis Psychiatric: Orientation: alert and oriented x 3 Affect: euthymic affect Results & Data Vital Signs (Past 12 Hours) Vital Signs Temp Pulse Resp BP Pulse Ox O2 Del Method 08/16/22 07:22 36.8 C 79 18 96/60 L 98 Room Air 08/16/22 04:00 36.6 C 78 18 93/60 L 96 Room Air PG Care Time/CCT Total # of Minutes Spent Total Time Spent with Patient: Total time spent is greater than 50% in coordination of care (as documented) at patient's floor/unit and/or counseling patient: Coding Level of Care Code 50162 SUB INP/OBS CARE 235MIN Diagnoses COLLIN (acute kidney injury) N17.9 Hyperkalemia E87.5 Bacteremia R78.81 Sepsis A41.9 Sepsis acute organ dysfunction status: without acute organ dysfunction Sepsis type: sepsis due to unspecified organism Upper GI bleeding K92.2 Urinary tract infection N39.0; R31.9 Hematuria presence: with hematuria Urinary tract infection type: site unspecified (4) Sepsis Sepsis acute organ dysfunction status: without acute organ dysfunction Sepsis type: sepsis due to unspecified organism Qualified Code(s): A41.9 - Sepsis, unspecified organism (6) Urinary tract infection Hematuria presence: with hematuria Urinary tract infection type: site unspecified Qualified Code(s): N39.0 - Urinary tract infection, site not specified; R31.9 - Hematuria, unspecified
[2022-08-16] MEDS ORDERED: ATROPINE SULFATE 0.1 MG/ML 10ML SYR IV PRN (11:24)
[2022-08-16] MEDS ORDERED: ePHEDrine sulfate 50 MG/ML AMP IV PRN (11:24)
--- NOTE | 2022-08-16 11:24 | Anesthesiology Consultation ---
Date of Service August 16, 2022 Assessment & Plan Chart Review Chart Review: Acceptable Risk for Surgery and Patient NOT seen in Pre Admission Testing Consults Requested none ASA ASA4 Proposed Anesthesia Anesthesia Type: MAC History Surgery Operation Date: 08/16/22 17:30 Proposed Procedures p Esophagogastroduodenoscopy Dr Monsivais - Kindra Fair MD Height/Weight Height: 5 ft 9 in Weight: 112.4 kg Allergies Allergy/AdvReac Type Severity Reaction Status Date / Time tamsulosin Allergy Intermediate HIVES Verified 08/13/22 16:20 etanercept [From Enbrel] AdvReac Intermediate Increased Verified 08/13/22 16:20 infections Medications Home Medications Medication Instructions Recorded Confirmed Last Taken cholecalciferol (vitamin D3) 50 50 mcg PO QAM #90 caps 05/15/21 08/13/22 06/07/22 mcg (2,000 unit) capsule vitamin B complex 1 tab PO DAILY 10/23/21 08/13/22 06/07/22 am rifaximin 550 mg tablet (Xifaxan) 550 mg PO BID #60 tabs 01/16/22 08/13/22 06/07/22 08:30 darbepoetin coretta in polysorbat 100 100 mcg subcut .COMPLEX PRN 05/23/22 08/13/22 05/22/22 11:00 mcg/0.5 mL in polysorbate NEEDED injection syringe paroxetine HCl 10 mg tablet 10 mg PO QPM 06/21/22 08/13/22 Unknown midodrine 10 mg tablet 10 mg PO TID #90 tabs 07/21/22 08/13/22 Unknown spironolactone 50 mg tablet 50 mg PO BID #60 tabs 07/21/22 08/13/22 Unknown sucralfate 100 mg/mL oral 10 ml PO ACHS #1,000 mL 07/21/22 08/13/22 Unknown suspension ondansetron HCl 4 mg tablet 4 mg PO Q8H PRN Nausea And 08/08/22 08/13/22 Unknown Vomiting #30 tabs pantoprazole 40 mg tablet,delayed 40 mg PO BID #60 tabs 08/08/22 08/13/22 Unknown release lactulose 10 gram/15 mL oral 20 g (30 mL) PO DAILY #946 mL 08/10/22 08/13/22 Unknown solution Active Medications Generic Name Dose Route Start Last Admin Trade Name Freq PRN Reason Stop Dose Admin Acetaminophen 650 mg 08/13/22 22:56 08/16/22 08:25 Acetaminophen 325 Mg Tab PO 09/12/22 22:55 650 mg Q6H PRN Administration Pain or Fever Daptomycin 850 mg/ Syringe 17 mls @ 8.5 mls/min 08/14/22 20:00 08/15/22 19:59 IV 08/28/22 19:59 8.5 mls/min Q24H LUZ Administration Protocol Octreotide Acetate 500 mcg/ 100.5 mls @ 10.05 mls/hr 08/15/22 12:00 08/16/22 06:19 Dextrose IV 09/14/22 11:59 50 mcg/hr .Q10H LUZ 10.1 mls/hr Administration 50 MCG/HR Pantoprazole Sodium 40 mg/ 100 mls @ 20 mls/hr 08/15/22 13:00 08/16/22 08:25 Dextrose IV 09/14/22 12:59 8 mg/hr Q5H LUZ 20 mls/hr Administration 8 MG/HR Lactulose 20 gm 08/14/22 09:00 08/16/22 08:14 Lactulose Syrup 20 Gm/30 Ml Udc PO 09/13/22 08:59 20 gm DAILY LUZ Administration Midodrine 15 mg 08/15/22 12:00 08/16/22 08:13 Midodrine Hcl 2.5 Mg Tab PO 09/14/22 11:59 15 mg TIDM LUZ Administration Ondansetron HCl 4 mg 08/13/22 19:00 08/14/22 20:20 Ondansetron 4 Mg Od Tab PO 09/12/22 18:59 4 mg Q8H PRN Administration Nausea And Vomiting Paroxetine HCl 10 mg 08/13/22 21:00 08/15/22 20:30 Paroxetine Hcl 10 Mg Tab PO 09/12/22 20:59 10 mg QPM LUZ Administration Rifaximin 550 mg 08/13/22 21:00 08/16/22 08:13 Rifaximin 550 Mg Tablet PO 09/12/22 20:59 550 mg BID LUZ Administration Sucralfate 1 gm 08/13/22 21:00 08/16/22 08:14 Sucralfate 1 Gm/10 Ml Udc PO 09/12/22 20:59 1 gm ACHS LUZ Administration Vitamin B Complex 1 tab 08/14/22 09:00 08/16/22 08:14 Vitamin B Complex Tab PO 09/13/22 08:59 1 tab DAILY LUZ Administration Vitamin D 2,000 units 08/14/22 09:00 08/16/22 08:15 Cholecalciferol 1,000 Units 25 Mcg Tab PO 09/13/22 08:59 2,000 units QAM LUZ Administration Past Medical History Medical History Anemia Ascites Calculus of kidney Cervical disc disease CKD (chronic kidney disease), stage III Depression Esophageal varices determined by endoscopy GAVE (gastric antral vascular ectasia) Per records GERD (gastroesophageal reflux disease) History of GI bleed discharged from [facility] 06/10/22: borderline hemorrhagic shock-upper GI bleed suspected to be d/t GAVE-received 1 unit of PRBC History of herniated intervertebral disc lumbar area History of SCC (squamous cell carcinoma) of skin S/p removal- follows with derm Hx of blood clots 06/2021 @ [facility]- pt reports blood clot in left arm around IV site after being discharged from hospital- no meds due to current blood loss issue- warm compresses to site per pt- 2 ultrasounds done - no current issues Hx of upper gastrointestinal hemorrhage recent hospitalization at [facility] 06/07/2022 Hyperkalemia Hypothyroidism 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 current work-up for planned liver transplant per [facility] transplant clinic records Lumbar disc disease Oral mucositis On mouthwash daily- no recent issues Pancytopenia Portal hypertensive gastropathy Post-traumatic urethral stricture Psoriasis Psoriatic arthritis PVT (portal vein thrombosis) denies Spinal stenosis EPIDURAL INJECTIONS IN PAST FOR PAIN RELIEF TMJ arthralgia Urinary retention Urinary tract infection Wide-complex tachycardia ON CARDVEDILOL-F/U DR VANESSA LAST VISIT<1 YR AGO Exercise / Class Metabolic Activity III < 4 Walking/Shop/Light housework Past Family History Family History Grandmother (Maternal) Diabetes Father Renal cancer Mother Aortic aneurysm Denies family history of Ovarian cancer Prostate cancer Myocardial infarction Breast cancer Colorectal cancer Past Surgical History Surgical History H/O foot surgery excision of neuroma b/l feet History of appendectomy History of arthroscopy RT KNEE History of cataract surgery RT/LEFT History of cholecystectomy History of esophagogastroduodenoscopy (EGD) last 03/21/[address] [facility] 02/08/22 Dr. Sara Cloud- EGD- Grade I esophageal varices, Portal hypertensive gastropathy History of herniorrhaphy right inguinal History of lithotripsy History of liver biopsy History of repair of rotator cuff RT/LEFT History of tooth extraction History of urologic surgery Urethral reconstruction [address] [facility] Nausea and vomiting after administration of anesthetic agent S/P colonoscopy S/P epidural steroid injection S/P orchiectomy Right age 9 for UDT S/P urological surgery (2018) BMG urethroplasty-C Suprapubic catheter AND REMOVAL Past Anesthesia History No Hx of Anesthesia Complications and No Family Hx of Anesthesia Complications History of PONV No Hx of PONV and No Hx of Motion Sickness Social History Smoking Status: Never smoker Do You Dip or Chew Tobacco: No Hx Alcohol Use: No Hx Substance Use: No substance use type: does not use Physical Exam Vital Signs Last Vital Signs Temp 36.6 C 08/16/22 11:08 Pulse 79 08/16/22 11:08 Resp 18 08/16/22 11:08 BP 97/60 L 08/16/22 11:08 Pulse Ox 97 08/16/22 11:08 O2 Del Method Room Air 08/16/22 11:08 O2 Flow Rate 2 08/14/22 22:30 Testing Laboratory Results 08/16/22 08:43 08/16/22 02:14 PT 17.1 Seconds (9.0-12.0) H 08/14/22 06:48 INR 1.6 (0.9-1.1) H 08/14/22 06:48 APTT 29.4 Seconds (21.0-31.0) 08/13/22 12:43 Urine Color Yellow 08/15/22 14:30 Urine Appearance Clear (Clear) 08/15/22 14:30 Urine pH 5.5 (4.5-7.5) 08/15/22 14:30 Ur Specific [place] 1.019 (1.000-1.030) 08/15/22 14:30 Urine Protein Trace (Negative) H 08/15/22 14:30 Urine Glucose (UA) Negative (Negative) 08/15/22 14:30 Urine Ketones Negative (Negative) 08/15/22 14:30 Urine Nitrite Negative (Negative) 08/15/22 14:30 Ur Leukocyte Esterase 2+ (Negative) H 08/15/22 14:30 Urine WBC (Auto) 10-30 /hpf (0-5) H 08/15/22 14:30 Urine RBC (Auto) 5-10 /hpf (0-4) H 08/15/22 14:30 U Hyaline Cast (Auto) 1-5 /lpf (0-5) 08/15/22 14:30 U Epithel Cells (Auto) >30 /lpf (0-5) H 08/15/22 14:30 Urine Bacteria (Auto) Negative (Negative) 08/15/22 14:30 Blood Type O Positive 08/14/22 08:25 Antibody Screen NEGATIVE 08/14/22 08:25 08/13/22 13:48 Aerobic Blood Culture - Final Blood Enterococcus faecium VRE Anaerobic Blood Culture - Final Enterococcus faecium VRE 08/13/22 12:43 Aerobic Blood Culture - Final Blood Enterococcus faecium VRE Anaerobic Blood Culture - Final Enterococcus faecium VRE 08/13/22 14:05 Urine Culture - Final Urine,Clean Catch Enterococcus faecium VRE 08/14/22 Unknown Gram Stain - Final Peritoneal Fluid Aerobic and Anaerobic Culture - Preliminary No growth to date. Electrocardiogram Date: 08/13/22 Findings: + ST @ (@ 117;low voltage QRS) Chest X-Ray Date: 08/13/22 Findings: + NAD Echocardiogram Date: 08/15/22 EF: 65% LV Function: normal RWMA: + none Other Findings: + LVH (mild) Valvular Disease: + no significant valvular disease Stress Test Date: 06/11/22 Type: nuclear Findings: + WNL
[2022-08-16] MEDS ORDERED: PROPOFOL IV EMULSION 10 MG/ML 20 ML VIAL IV ONE (12:09)
[2022-08-16] MEDS ORDERED: LIDOCAINE 2% 2 ML VIAL/AMP(20MG/ML) INFIL ONE (12:09)
--- NOTE | 2022-08-16 12:15 | Anesthesiology Progress Note ---
Date of Service August 16, 2022 Anesthesia Post Procedure Vital Signs Vital Signs: Temp Pulse Pulse Resp BP Pulse Ox O2 Del Method 08/16/22 11:39 36.6 C 83 16 95 Room Air 08/16/22 11:08 36.6 C 79 18 97/60 L 97 Room Air 08/16/22 07:22 36.8 C 79 18 96/60 L 98 Room Air 08/15/22 22:45 37.1 C 84 18 94/56 L 95 Room Air 08/16/22 04:00 36.6 C 78 18 93/60 L 96 Room Air 08/15/22 22:00 69 08/15/22 20:00 Room Air 08/15/22 19:12 36.5 C 71 18 96/58 L 97 Room Air 08/15/22 15:36 36.4 C L 56 L 18 93/54 L 97 Room Air 08/15/22 12:43 102/66 Transfer of Care Handoff Completed per policy Notes Mental Status: alert / awake / arousable Patient Amnestic to Procedure: Yes Nausea / Vomiting: adequately controlled Pain: adequately controlled Airway Patency, RR, SpO2: stable & adequate BP & HR: stable & adequate Hydration State: stable & adequate Anesthetic Complications: no major complications apparent
--- NOTE | 2022-08-16 12:26 | GI REPORT ---
Patient Name: Sebastian Quiñonez Procedure Date: 08/16/2022 11:53 AM Date of : 1955 Admit Type: Inpatient Age: 67 Gender: Male Attending MD: Kindra Fair MD, Procedure: Upper GI endoscopy Providers: Kindra Fair MD Referring MD: Margarito Zamudio Indications: Melena Medicines: See the Anesthesia note for documentation of the administered medications Complications: No immediate complications. Estimated Blood Loss: Estimated blood loss: none. Procedure: Pre-Anesthesia Assessment: - ASA Grade Assessment: IV - A patient with severe systemic disease that is a constant threat to life. After obtaining informed consent, the endoscope was passed under direct vision. Throughout the procedure, the patient's blood pressure, pulse, and oxygen saturations were monitored continuously. The Scope was introduced through the mouth, and advanced to the second part of duodenum. The upper GI endoscopy was accomplished without difficulty. The patient tolerated the procedure well. Findings: There were small esophageal varices without high risk stigmata. There were no gastric varices. There was snaksekin appearance of the body and cardia suggestive of portal gastropathy. There were stripes of erythema with mild active oozing in the antrum. Because of the location in the antrum, this is more likely related to GAVE than portal gastropathy. There was a large amount of food in the stomach, and therapy was not done. Patchy erythema in the bulb and second portion of the duodenum, suggestive of duodenal vascular ectasia. Recommendation: - Discharge patient to floor. Consider repeat exam after clear liquid fast. Kindra Fair M.D. Kindra Fair MD 08/16/2022 12:25:43 PM This report has been signed electronically. Note Initiated On: 08/16/2022 11:53 AM Number of Addenda: 0 I attest to the content of the Intraoperative Record and orders documented therein, exceptions below {[id number]}
--- NOTE | 2022-08-16 12:29 | GI REPORT ---
Patient Name: Sebastian Quiñonez Procedure Date: 08/16/2022 11:54 AM Date of : 1955 Admit Type: Inpatient Age: 67 Gender: Male Attending MD: Kindra Fair MD, Procedure: Colonoscopy Providers: Kindra Fair MD Referring MD: Margarito Zamudio Indications: Melena Medicines: See the Anesthesia note for documentation of the administered medications Complications: No immediate complications. Estimated Blood Loss: Estimated blood loss: none. Procedure: Pre-Anesthesia Assessment: - ASA Grade Assessment: IV - A patient with severe systemic disease that is a constant threat to life. - After reviewing the risks and benefits, the patient was deemed in satisfactory condition to undergo the procedure. After I obtained informed consent, the scope was passed under direct vision. Throughout the procedure, the patient's blood pressure, pulse, and oxygen saturations were monitored continuously. The Scope was introduced through the anus and advanced to the splenic flexure for evaluation. This was the intended extent. The colonoscopy was performed without difficulty. The patient tolerated the procedure well. The quality of the bowel preparation was adequate. Findings: There was no evidence of ischemic colitis. No rectal varices were seen. There was mild snakeskin appearance to mucosa of the rectum, and scant blood in the rectum. There was a mildly oozing point of bleeding that was clipped x 1 in the rectum. There were diverticula in the sigmoid colon. There was brown/green stool in the descending colon. Hemorrhoids The perianal and digital rectal examinations were normal. Impression: Portal colopathy. Recommendation: - Discharge patient to floor. Tova Hutchinson MD 08/16/2022 12:29:15 PM This report has been signed electronically. Note Initiated On: 08/16/2022 11:54 AM Number of Addenda: 0 I attest to the content of the Intraoperative Record and orders documented therein, exceptions below {[id number]}
--- NOTE | 2022-08-16 17:49 | Infectious Disease Consult ---
Date of Consultation August 16, 2022 Assessment & Plan (1) Bacteremia: (2) Sepsis: (3) Acute UTI (urinary tract infection): Plan This is a 67 year old male with pmh of CKD, SERRANO cirrhosis w GAVE, portal hypertensive gastropathy, spinal stenosis, chronic anemia who presents with lethargy, weakness, dizziness, abdominal pain with some nausea and increased back pain and body aches. He denies fever, cough, chills, vomiting, change in bowel or urine habits, dysuria, hematuria or blood in stool. He reports falling about 3 weeks ago, but did not let his home nurse of family know. Since than he has had increased back pain. Vitals on admission: Fever with T 38.1C, 115/72, Pulse 116, RR 22, O2 97% on RA. Labs noted for a WBc 8.17 -->11.59, hgb 8--> 6.5, hct 23--->20.5, plts 70--->44, Bun 36, cr 2.46.UA 1 + leuk est, > 30 WBc , 0-4 RBC, 2+ bacteria. Sars cov 2, influenza, rsv pcr panel negative. Respiratory pcr panel negative. CXR clear for acute process. CTAB showed no acute diverticulitis, + hepatic cirrhosis with perisplenic varices, abdominal and pelvic ascites. Admission BC + in 05/29 bottles for VRE. UC grew > 100,000 cfu VRE. He underwent a paracentesis w/ removal of 400 ml of yellow ascites fluid, 70 WBC, cx sterile to date. A TTE was done that showed no valvulopathy or vegetations. His course was complicated by downtrending H/H requiring PRBC transfusion. He reported red and black loose stool on lactulose . He was evaluated by GI and underwent EGD and Colonoscopy pending final report. ID consulted for bacteremia. MICRO BC 08/13 05/29 bottles VRE BC 08/13 >100,000 VRE Ascites CX 08/14 NGTD BC 08/15- NGTD ABX zosyn 08/13-08/15 Dapto 08/13-ongoing 1.VRE bacteremia 2.Sepsis on admission 3.VRE UTI 4.COLLIN on CKD 5..Anemia /Thrombocytopenia 6. Acute on chronic back pain The etiology of the VRE bacteremia is unclear. It could be urinary or GI. He r eport abdominal pain with distention, nausea. He underwent paracentesis with fluid cultures sterile far. There is no evidence of SBP. He is pending EGD and colonoscopy. He has VRE in urine cx. He denies urine changes or dysuria but has suprapubic abdominal tenderness on exam and lower back pain and tenderness. He denies prosthetics or hardware. A TTE shows no significant valvulopathy or vegetations. On exam he, has acute on chronic back pain from cervical to lumbar spine. Repeat BC on 08/15 with no growth to date. He has chronic anemia which has worsened and progressive thrombocyopenia. These are likely secondary to liver disease. He denies tick exposures recently. Recommendations -Continue Daptomycin -Cpk ordered for am -Follow up repeat BC -Follow up colonoscopy and EGD report -Consider MRI spine in setting of acute on chronic back pain and bacteremia of unclear etiology and fall 3 weeks ago - Ordered Ehrlichia, Babesia PCR in setting of thrombocytopenia,anemia, slight elev of lft although likely secondary to Liver dz - Ordered Lyme screen in setting of joint pain Thank you for this consultation. ID will continue to follow. Reji Murray MD, MPH Infectious Disease [facility], [facility] Call [phone] with questions Consultation Information Consultation was provided via telemedicine using two-way real-time interactive telecommunication between the patient and the telemedicine provider. For the duration of the visit, the provider was performing the assessment from a different facility than the patient. This includesuse of bluetooth stethoscope forauscultationperformed by the telepresenter that the telemedicine provider can hear if described in the physical exam. Maintenance Planning Clerk contact information: Please call [facility] Call Center . (Phone Number For Physician Use Only) After establishing a telemedicine visit, patient was: Patient was verified with two unique identifiers and Gave permission to continue telehealth session Time Spent with Patient: Initial => 75 min History of Present Illness Reason for Consultation: Enterococcus Bacteremia Requesting Physician: Margarito Zamudio DO Attending Physician: Margarito Zamudio DO History of Present Illness This is a 67 year old male with pmh of CKD, SERRANO cirrhosis w GAVE, portal hypertensive gastropathy, spinal stenosis, chronic anemia who presents with lethargy, weakness, dizziness, abdominal pain with some nausea and increased back pain and body aches. He denies fever, cough, chills, vomiting, change in bowel or urine habits, dysuria, hematuria or blood in stool. He reports falling about 3 weeks ago, but did not let his home nurse of family know. Since than he has had increased back pain. Vitals on admission: Fever with T 38.1C, 115/72, Pulse 116, RR 22, O2 97% on RA. Labs noted for a WBc 8.17 -->11.59, hgb 8--> 6.5, hct 23--->20.5, plts 70--->44, Bun 36, cr 2.46.UA 1 + leuk est, > 30 WBc , 0-4 RBC, 2+ bacteria. Sars cov 2, influenza, rsv pcr panel negative. Respiratory pcr panel negative. CXR clear for acute process. CTAB showed no acute diverticulitis, + hepatic cirrhosis with perisplenic varices, abdominal and pelvic ascites. Admission BC + in 4/4 bottles for VRE. UC grew > 100,000 cfu VRE. He underwent a paracentesis w/ removal of 400 ml of yellow ascites fluid, 70 WBC, cx sterile to date. A TTE was done that showed no valvulopathy or vegetations. His course was complicated by downtrending H/H requiring PRBC transfusion. He reported red and black loose stool on lactulose . He was evaluated by GI and underwent EGD and Colonoscopy pending final report. ID consulted for bacteremia. Allergies Allergy/AdvReac Type Severity Reaction Status Date / Time tamsulosin Allergy Intermediate HIVES Verified 08/13/22 16:20 etanercept [From Enbrel] AdvReac Intermediate Increased Verified 08/13/22 16:20 infections Home Medications Medication Instructions Recorded Confirmed Type cholecalciferol (vitamin D3) 50 50 mcg PO QAM #90 caps 05/15/21 08/13/22 Rx mcg (2,000 unit) capsule vitamin B complex 1 tab PO DAILY 10/23/21 08/13/22 History rifaximin 550 mg tablet (Xifaxan) 550 mg PO BID #60 tabs 01/16/22 08/13/22 Rx darbepoetin coretta in polysorbat 100 100 mcg subcut .COMPLEX PRN 05/23/22 08/13/22 History mcg/0.5 mL in polysorbate NEEDED injection syringe paroxetine HCl 10 mg tablet 10 mg PO QPM 06/21/22 08/13/22 History midodrine 10 mg tablet 10 mg PO TID #90 tabs 07/21/22 08/13/22 Rx spironolactone 50 mg tablet 50 mg PO BID #60 tabs 07/21/22 08/13/22 Rx sucralfate 100 mg/mL oral 10 ml PO ACHS #1,000 mL 07/21/22 08/13/22 Rx suspension ondansetron HCl 4 mg tablet 4 mg PO Q8H PRN Nausea And 08/08/22 08/13/22 Rx Vomiting #30 tabs pantoprazole 40 mg tablet,delayed 40 mg PO BID #60 tabs 08/08/22 08/13/22 Rx release lactulose 10 gram/15 mL oral 20 g (30 mL) PO DAILY #946 mL 08/10/22 08/13/22 Rx solution Patient History Medical History Anemia Ascites Calculus of kidney Cervical disc disease CKD (chronic kidney disease), stage III Depression Esophageal varices determined by endoscopy GAVE (gastric antral vascular ectasia) Per records GERD (gastroesophageal reflux disease) History of GI bleed discharged from [facility] 06/10/22: borderline hemorrhagic shock-upper GI bleed suspected to be d/t GAVE-received 1 unit of PRBC History of herniated intervertebral disc lumbar area History of SCC (squamous cell carcinoma) of skin S/p removal- follows with derm Hx of blood clots 06/2021 @ [facility]- pt reports blood clot in left arm around IV site after being discharged from hospital- no meds due to current blood loss issue- warm compresses to site per pt- 2 ultrasounds done - no current issues Hx of upper gastrointestinal hemorrhage recent hospitalization at [facility] 06/07/2022 Hyperkalemia Hypothyroidism 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 current work-up for planned liver transplant per [facility] transplant clinic records Lumbar disc disease Oral mucositis On mouthwash daily- no recent issues Pancytopenia Portal hypertensive gastropathy Post-traumatic urethral stricture Psoriasis Psoriatic arthritis PVT (portal vein thrombosis) denies Spinal stenosis EPIDURAL INJECTIONS IN PAST FOR PAIN RELIEF TMJ arthralgia Urinary retention Urinary tract infection Wide-complex tachycardia ON CARDVEDILOL-F/U DR VANESSA LAST VISIT<1 YR AGO Surgical History H/O foot surgery excision of neuroma b/l feet History of appendectomy History of arthroscopy RT KNEE History of cataract surgery RT/LEFT History of cholecystectomy History of esophagogastroduodenoscopy (EGD) last 03/21/22 @ [facility] 02/08/22 Dr. Sara Cloud- EGD- Grade I esophageal varices, Portal hypertensive gastropathy History of herniorrhaphy right inguinal History of lithotripsy History of liver biopsy History of repair of rotator cuff RT/LEFT History of tooth extraction History of urologic surgery Urethral reconstruction 4 years ago at [facility] Nausea and vomiting after administration of anesthetic agent S/P colonoscopy S/P epidural steroid injection S/P orchiectomy Right age 9 for UDT S/P urological surgery (2018) BMG urethroplasty-C Suprapubic catheter AND REMOVAL Family History Grandmother (Maternal) Diabetes Father Renal cancer Mother Aortic aneurysm Denies family history of Ovarian cancer Prostate cancer Myocardial infarction Breast cancer Colorectal cancer Social History Smoking Status: Never smoker Second Hand Exposure: No; Do You Dip or Chew Tobacco: No; Hx Alcohol Use: No Hx Substance Use: No Preferred Language: Swedish Communication Ability: Effective Visual Impairment: No Limitations Hearing Ability: Hard of Hearing Mid Level Practitioner Required: No Beliefs That Will Affect Care: None marital status: / Current Living Situation: Family Current Living Situation Comment: Lives with son and [id number] current occupational status: retired How many Children do You have: 1 Feels Safe at Home: Yes Diet: low salt Diet Comment: LOW SALT caffeine: Yes during the past year weight has: remained stable Dental Care, Regularly: No Physical Activity Frequency: Other Physical Activity Frequency Comment: does all housework/outside work and cuts wood Seatbelt Use: never Sunscreen Use: No Assistive Devices: Cane Review of System A 10 point ROS obtaine. Pertinent positives as per HPI Physical Exam Constitutional: Nad Eyes: Non icteric, EOMI ENMT: Dry lips Neck: Supple Respiratory: No increased work of breathing Chest (Breasts): Additional Comments: Left upper chest sore to palpation Gastrointestinal (Abdomen): Soft, distended RUQ tender, lower abdomen tender , bruising at recent paracentesis site Musculoskeletal: para spinal tenderness ( cervical--> lumbar) Skin: BL upper extremity bruising 3 PIv at LUE Neurologic: AAO*3 Psychiatric: Cooperative Genitourinary: No negron. + suprapubic tenderness Results & Data Vital Signs (Past 12 Hours) Vital Signs Temp Pulse Resp BP Pulse Ox O2 Del Method 08/16/22 15:57 36.5 C 77 18 101/64 97 Room Air 08/16/22 12:57 36.6 C 69 20 93/57 L 94 Room Air 08/16/22 11:39 103/42 L 08/16/22 12:32 71 16 89/42 L 96 Room Air 08/16/22 12:20 69 16 96/43 L 96 Room Air 08/16/22 12:05 70 16 95/41 L 96 Room Air 08/16/22 11:39 36.6 C 83 16 95 Room Air 08/16/22 11:08 36.6 C 79 18 97/60 L 97 Room Air 08/16/22 07:22 36.8 C 79 18 96/60 L 98 Room Air Laboratory Results Laboratory Results - last 48 hr 08/14/22 08/15/22 08/15/22 08:25 00:40 00:40 WBC RBC Hgb 6.6 L* Hct 19.3 L* MCV MCH MCHC RDW Std Deviation RDW Coeff of Miguel Plt Count MPV Immature Gran % (Auto) Neut % (Auto) Lymph % (Auto) [place] % (Auto) Eos % (Auto) Baso % (Auto) Neut # (Auto) Lymph # (Auto) [place] # (Auto) Eos # (Auto) Baso # (Auto) Immature Gran # (Auto) Polychromasia Anisocytosis Ovalocytes Echinocytes Sodium 127 L Potassium 5.0 Chloride 100 Carbon Dioxide 22 Anion Gap 5 BUN 40 H Creatinine 2.58 H Est Cr Clr Drug Dosing 33.1 Est GFR ( Amer) 28.4 Est GFR (Non-Af Amer) 24.5 BUN/Creatinine Ratio 15.5 Glucose 109 H Calcium 9.9 Phosphorus Magnesium Total Bilirubin AST ALT Alkaline Phosphatase Total Protein Albumin Globulin Albumin/Globulin Ratio Urine Color Urine Appearance Urine pH Ur Specific [place] Urine Protein Urine Glucose (UA) Urine Ketones Urine Blood Urine Nitrite Urine Bilirubin Urine Urobilinogen Ur Leukocyte Esterase Urine WBC (Auto) Urine RBC (Auto) U Hyaline Cast (Auto) U Epithel Cells (Auto) Urine Bacteria (Auto) Ur Random Creatinine Ur Random Sodium Stool Occult Bld Scrn Blood Type O Positive Antibody Screen NEGATIVE Crossmatch See Detail 08/15/22 08/15/22 08/15/22 06:06 06:06 08:16 WBC 8.47 RBC 2.32 L Hgb 8.1 L Hct 23.5 L MCV 101.3 H D MCH 34.9 H MCHC 34.5 RDW Std Deviation RDW Coeff of Miguel Plt Count 44 L MPV 11.1 Immature Gran % (Auto) 1.1 Neut % (Auto) 83.6 Lymph % (Auto) 3.7 [place] % (Auto) 11.3 Eos % (Auto) 0.2 Baso % (Auto) 0.1 Neut # (Auto) 7.08 H Lymph # (Auto) 0.31 L [place] # (Auto) 0.96 H Eos # (Auto) 0.02 Baso # (Auto) 0.01 Immature Gran # (Auto) 0.09 Polychromasia 1+ Anisocytosis Present Ovalocytes 1+ Echinocytes 1+ Sodium 128 L Potassium 5.8 H Chloride 100 Carbon Dioxide 24 Anion Gap 4 BUN 43 H Creatinine 2.65 H Est Cr Clr Drug Dosing 32.0 Est GFR ( Amer) 27.5 Est GFR (Non-Af Amer) 23.7 BUN/Creatinine Ratio 16.2 Glucose 116 H Calcium 10.3 Phosphorus Magnesium 1.9 Total Bilirubin 6.9 H D AST 41 H ALT 15 Alkaline Phosphatase 83 Total Protein 5.2 L Albumin 2.7 L Globulin 2.5 Albumin/Globulin Ratio 1.1 Urine Color Urine Appearance Urine pH Ur Specific [place] Urine Protein Urine Glucose (UA) Urine Ketones Urine Blood Urine Nitrite Urine Bilirubin Urine Urobilinogen Ur Leukocyte Esterase Urine WBC (Auto) Urine RBC (Auto) U Hyaline Cast (Auto) U Epithel Cells (Auto) Urine Bacteria (Auto) Ur Random Creatinine Ur Random Sodium Stool Occult Bld Scrn Positive A Blood Type Antibody Screen Crossmatch 08/15/22 08/15/22 08/15/22 13:02 13:02 14:30 WBC 6.57 RBC 2.15 L Hgb 7.5 L Hct 22.4 L MCV 104.2 H MCH 34.9 H MCHC 33.5 RDW Std Deviation 93.7 H RDW Coeff of Miguel 25.3 H Plt Count 34 L MPV 9.8 Immature Gran % (Auto) 0.5 Neut % (Auto) 83.2 Lymph % (Auto) 5.3 [place] % (Auto) 10.0 Eos % (Auto) 0.8 Baso % (Auto) 0.2 Neut # (Auto) 5.47 Lymph # (Auto) 0.35 L [place] # (Auto) 0.66 H Eos # (Auto) 0.05 Baso # (Auto) 0.01 Immature Gran # (Auto) 0.03 Polychromasia 1+ Anisocytosis Present Ovalocytes Echinocytes Sodium 129 L Potassium 5.1 Chloride 101 Carbon Dioxide 23 Anion Gap 5 BUN 44 H Creatinine 2.63 H Est Cr Clr Drug Dosing 32.3 Est GFR ( Amer) 27.7 Est GFR (Non-Af Amer) 23.9 BUN/Creatinine Ratio 16.7 Glucose 181 H Calcium 10.6 H Phosphorus Magnesium Total Bilirubin AST ALT Alkaline Phosphatase Total Protein Albumin Globulin Albumin/Globulin Ratio Urine Color Yellow Urine Appearance Clear Urine pH 5.5 Ur Specific [place] 1.019 Urine Protein Trace H Urine Glucose (UA) Negative Urine Ketones Negative Urine Blood 2+ H Urine Nitrite Negative Urine Bilirubin Negative Urine Urobilinogen Negative Ur Leukocyte Esterase 2+ H Urine WBC (Auto) 10-30 H Urine RBC (Auto) 5-10 H U Hyaline Cast (Auto) 1-5 U Epithel Cells (Auto) >30 H Urine Bacteria (Auto) Negative Ur Random Creatinine Ur Random Sodium Stool Occult Bld Scrn Blood Type Antibody Screen Crossmatch 08/15/22 08/15/22 08/16/22 14:30 20:02 02:14 WBC RBC Hgb 7.3 L Hct 21.8 L MCV MCH MCHC RDW Std Deviation RDW Coeff of Miguel Plt Count MPV Immature Gran % (Auto) Neut % (Auto) Lymph % (Auto) [place] % (Auto) Eos % (Auto) Baso % (Auto) Neut # (Auto) Lymph # (Auto) [place] # (Auto) Eos # (Auto) Baso # (Auto) Immature Gran # (Auto) Polychromasia Anisocytosis Ovalocytes Echinocytes Sodium 130 L Potassium 5.1 Chloride 102 Carbon Dioxide 23 Anion Gap 5 BUN 44 H Creatinine 2.55 H Est Cr Clr Drug Dosing 33.3 Est GFR ( Amer) 28.8 Est GFR (Non-Af Amer) 24.8 BUN/Creatinine Ratio 17.3 Glucose 126 H Calcium 10.1 Phosphorus 2.8 Magnesium Total Bilirubin AST ALT Alkaline Phosphatase Total Protein Albumin 3.0 L Globulin Albumin/Globulin Ratio Urine Color Urine Appearance Urine pH Ur Specific [place] Urine Protein Urine Glucose (UA) Urine Ketones Urine Blood Urine Nitrite Urine Bilirubin Urine Urobilinogen Ur Leukocyte Esterase Urine WBC (Auto) Urine RBC (Auto) U Hyaline Cast (Auto) U Epithel Cells (Auto) Urine Bacteria (Auto) Ur Random Creatinine 60.0 Ur Random Sodium 38 Stool Occult Bld Scrn Blood Type Antibody Screen Crossmatch 08/16/22 08/16/22 02:14 08:43 WBC 5.87 RBC 2.05 L Hgb 7.2 L 7.5 L Hct 21.1 L 21.7 L MCV 102.9 H MCH 35.1 H MCHC 34.1 RDW Std Deviation RDW Coeff of Miguel Plt Count 35 L MPV 9.8 Immature Gran % (Auto) 0.3 Neut % (Auto) 82.3 Lymph % (Auto) 4.1 [place] % (Auto) 10.1 Eos % (Auto) 2.9 Baso % (Auto) 0.3 Neut # (Auto) 4.83 Lymph # (Auto) 0.24 L [place] # (Auto) 0.59 Eos # (Auto) 0.17 Baso # (Auto) 0.02 Immature Gran # (Auto) 0.02 Polychromasia 1+ Anisocytosis Ovalocytes Echinocytes 1+ Sodium Potassium Chloride Carbon Dioxide Anion Gap BUN Creatinine Est Cr Clr Drug Dosing Est GFR ( Amer) Est GFR (Non-Af Amer) BUN/Creatinine Ratio Glucose Calcium Phosphorus Magnesium Total Bilirubin AST ALT Alkaline Phosphatase Total Protein Albumin Globulin Albumin/Globulin Ratio Urine Color Urine Appearance Urine pH Ur Specific [place] Urine Protein Urine Glucose (UA) Urine Ketones Urine Blood Urine Nitrite Urine Bilirubin Urine Urobilinogen Ur Leukocyte Esterase Urine WBC (Auto) Urine RBC (Auto) U Hyaline Cast (Auto) U Epithel Cells (Auto) Urine Bacteria (Auto) Ur Random Creatinine Ur Random Sodium Stool Occult Bld Scrn Blood Type Antibody Screen Crossmatch Diagnostic Findings Microbiology 08/15/22 10:08 Blood Aerobic Blood Culture - Preliminary No growth in Aerobic bottle after 24 hours. 08/15/22 10:08 Blood Anaerobic Blood Culture - Preliminary No growth in Anaerobic bottle after 24 hours. 08/15/22 10:24 Blood Aerobic Blood Culture - Preliminary No growth in Aerobic bottle after 24 hours. 08/15/22 10:24 Blood Anaerobic Blood Culture - Preliminary No growth in Anaerobic bottle after 24 hours. 08/13/22 13:48 Blood Aerobic Blood Culture - Final Enterococcus faecium VRE 08/13/22 13:48 Blood Anaerobic Blood Culture - Final Enterococcus faecium VRE 08/13/22 12:43 Blood Aerobic Blood Culture - Final Enterococcus faecium VRE 08/13/22 12:43 Blood Anaerobic Blood Culture - Final Enterococcus faecium VRE 08/13/22 14:05 Urine,Clean Catch Urine Culture - Final Enterococcus faecium VRE 08/14/22 Unknown Peritoneal Fluid Gram Stain - Final 08/14/22 Unknown Peritoneal Fluid Aerobic and Anaerobic Culture - Preliminary No growth to date. Abdomen/Pelvis CT 08/13/22 19:12 Exam(s): CT ABDOMEN + PELVIS With Contrast IV Amt: 85ml EXAM: CT Abdomen and Pelvis With Intravenous Contrast CLINICAL HISTORY: Reason for exam: abdominal pain, sepsis. TECHNIQUE: Axial computed tomography images of the abdomen and pelvis with intravenous contrast. CTDI is 27.95 mGy and DLP is 1657.57 mGy-cm. Automated exposure control was utilized for the study. A dose lowering technique was utilized adhering to the principles of ALARA. CONTRAST: Patient received 85ml of IV contrast COMPARISON: CT abdomen pelvis July 13, 2022. FINDINGS: Lung bases: Unremarkable. No mass. No consolidation. Heart: Cardiomegaly. ABDOMEN: Liver: Hepatic cirrhosis. Cholecystectomy. Mild splenomegaly. Multiple didier-splenic varices. Abdominal and pelvic ascites. Gallbladder and bile ducts: See above. Pancreas: Unremarkable. No mass. No ductal dilation. Spleen: See above. Adrenals: Unremarkable. No mass. Kidneys and ureters: Bilateral nonobstructing renal calculi, measuring up to 3 mm in the LEFT lower pole. Stomach and bowel: Unremarkable. No acute diverticulitis. No small bowel obstruction. No free air. PELVIS: Appendix: No findings to suggest acute appendicitis. Bladder: Unremarkable. No mass. Reproductive: Unremarkable as visualized. ABDOMEN and PELVIS: Intraperitoneal space: See above. Bones/joints: Degenerative changes of the spine. No acute fracture. No dislocation. Soft tissues: Mild anasarca. Vasculature: Atherosclerotic changes of the aorta. Lymph nodes: Unremarkable. No enlarged lymph nodes. IMPRESSION: 1. No acute diverticulitis. No small bowel obstruction. No free air. 2. Hepatic cirrhosis. Cholecystectomy. Mild splenomegaly. Multiple didier-splenic varices. Abdominal and pelvic ascites. 3. Bilateral nonobstructing renal calculi, measuring up to 3 mm in the LEFT lower pole. Electronically signed by: Bruce Dennis MD 08/13/22 20:17 PM Paracentesis Ultrasound 08/14/22 10:34 ULTRASOUND-GUIDED DIAGNOSTIC PARACENTESIS CLINICAL HISTORY: Ascites fluid; evaluate for SBP PROCEDURE: Procedure and risks were explained. Informed consent was obtained. A final timeout was completed. The right upper quadrant was prepped and draped in sterile fashion. 1% buffered lidocaine was utilized for skin anesthesia. Utilizing ultrasound guidance, a 5 [place] safety centesis catheter was advanced into the right upper quadrant pocket of ascites. Ultrasound images were obtained. Approximately 400 mL of yellow ascites fluid was removed and sent to lab for analysis. The catheter was removed and Band-Aid applied. The patient tolerated the procedure well. Vital signs will be monitored postprocedure. IMPRESSION: Paracentesis as above. Performed, dictated, and signed by Jose Elias Romero PA-C; to be co-signed by Dr. Edward Foreman. Electronically signed by: Edward Foreman M.D. 08/14/2022 3:22 PM Medications Administered Home Medications Medication Instructions Recorded Confirmed Last Taken cholecalciferol (vitamin D3) 50 50 mcg PO QAM #90 caps 05/15/21 08/13/22 06/07/22 mcg (2,000 unit) capsule vitamin B complex 1 tab PO DAILY 10/23/21 08/13/22 06/07/22 am rifaximin 550 mg tablet (Xifaxan) 550 mg PO BID #60 tabs 01/16/22 08/13/22 06/07/22 08:30 darbepoetin coretta in polysorbat 100 100 mcg subcut .COMPLEX PRN 05/23/22 08/13/22 05/22/22 11:00 mcg/0.5 mL in polysorbate NEEDED injection syringe paroxetine HCl 10 mg tablet 10 mg PO QPM 06/21/22 08/13/22 Unknown midodrine 10 mg tablet 10 mg PO TID #90 tabs 07/21/22 08/13/22 Unknown spironolactone 50 mg tablet 50 mg PO BID #60 tabs 07/21/22 08/13/22 Unknown sucralfate 100 mg/mL oral 10 ml PO ACHS #1,000 mL 07/21/22 08/13/22 Unknown suspension ondansetron HCl 4 mg tablet 4 mg PO Q8H PRN Nausea And 08/08/22 08/13/22 Unknown Vomiting #30 tabs pantoprazole 40 mg tablet,delayed 40 mg PO BID #60 tabs 08/08/22 08/13/22 Unknown release lactulose 10 gram/15 mL oral 20 g (30 mL) PO DAILY #946 mL 08/10/22 08/13/22 Unknown solution Active Medications Generic Name Dose Route Start Last Admin [facility] Reason Stop Dose Admin Acetaminophen 650 mg 08/13/22 22:56 08/16/22 08:25 Acetaminophen 325 Mg Tab PO 09/12/22 22:55 650 mg Q6H PRN Administration Pain or Fever Daptomycin 850 mg/ Syringe 17 mls @ 8.5 mls/min 08/14/22 20:00 08/15/22 19:59 IV 08/28/22 19:59 8.5 mls/min Q24H LUZ Administration Protocol Octreotide Acetate 500 mcg/ 100.5 mls @ 10.05 mls/hr 08/15/22 12:00 08/16/22 17:42 Dextrose IV 09/14/22 11:59 50 mcg/hr .Q10H LUZ 10.1 mls/hr Administration 50 MCG/HR Erythromycin Lactobionate 250 255 mls @ 250 mls/hr 08/16/22 18:00 08/16/22 17:42 mg/ Sodium Chloride IV 08/16/22 19:01 250 mls/hr ONE ONE Administration Lactulose 20 gm 08/14/22 09:00 08/16/22 08:14 Lactulose Syrup 20 Gm/30 Ml Udc PO 09/13/22 08:59 20 gm DAILY LUZ Administration Midodrine 15 mg 08/15/22 12:00 08/16/22 17:42 Midodrine Hcl 2.5 Mg Tab PO 09/14/22 11:59 15 mg TIDM LUZ Administration Ondansetron HCl 4 mg 08/13/22 19:00 08/14/22 20:20 Ondansetron 4 Mg Od Tab PO 09/12/22 18:59 4 mg Q8H PRN Administration Nausea And Vomiting Paroxetine HCl 10 mg 08/13/22 21:00 08/15/22 20:30 Paroxetine Hcl 10 Mg Tab PO 09/12/22 20:59 10 mg QPM LUZ Administration Rifaximin 550 mg 08/13/22 21:00 08/16/22 08:13 Rifaximin 550 Mg Tablet PO 09/12/22 20:59 550 mg BID LUZ Administration Sucralfate 1 gm 08/13/22 21:00 08/16/22 17:42 Sucralfate 1 Gm/10 Ml Udc PO 09/12/22 20:59 1 gm ACHS LUZ Administration Vitamin B Complex 1 tab 08/14/22 09:00 08/16/22 08:14 Vitamin B Complex Tab PO 09/13/22 08:59 1 tab DAILY LUZ Administration Vitamin D 2,000 units 08/14/22 09:00 08/16/22 08:15 Cholecalciferol 1,000 Units 25 Mcg Tab PO 09/13/22 08:59 2,000 units QAM LUZ Administration (2) Sepsis Sepsis acute organ dysfunction status: without acute organ dysfunction Sepsis type: sepsis due to unspecified organism Qualified Code(s): A41.9 - Sepsis, unspecified organism
[2022-08-16] MEDS ORDERED: ERYTHROMYCIN 250 MG in SODIUM CHLORIDE 0.9% 250 ML IV ONE (18:00)
--- NOTE | 2022-08-16 18:36 | Billing Data ---
Date of Service August 16, 2022 Coding Level of Care Code 23000 SUB INP/OBS CARE MIN
[2022-08-16] MEDS: PANTOprazole 40 MG TAB PO SCH (20:07)
[2022-08-16] MEDS: PARoxetine HCL 10 MG TAB PO SCH (20:07)
[2022-08-16] MEDS: DAPTOmycin 850 MG in SYRINGE 0 ML IV SCH (20:12)
[2022-08-17] MEDS: OCTREOTIDE ACETATE 500 MCG in DEXTROSE 5% 100 ML IV SCH ×3 (02:30→23:46)
[2022-08-17] MEDS: ONDANSETRON 4 MG OD TAB PO PRN ×2 (02:32→08:30)
[2022-08-17] MEDS: rifAXIMin 550 MG TABLET PO SCH ×2 (08:25→19:57)
[2022-08-17] MEDS: LACTULOSE SYRUP 20 GM/30 ML UDC PO SCH (08:25)
[2022-08-17] MEDS: CHOLECALCIFEROL 1,000 UNITS 25 MCG TAB PO SCH (08:26)
[2022-08-17] MEDS: MIDODRINE HCL 2.5 MG TAB PO SCH ×3 (08:26→17:22)
[2022-08-17] MEDS: VITAMIN B COMPLEX TAB PO SCH (08:26)
[2022-08-17] MEDS: PANTOprazole 40 MG TAB PO SCH ×2 (08:26→19:57)
[2022-08-17] MEDS: SUCRALFATE 1 GM/10 ML UDC PO SCH ×4 (08:26→19:56)
--- NOTE | 2022-08-17 08:37 | Gastroenterology Progress Note ---
Date of Service August 17, 2022 Assessment & Plan (1) Sepsis: Plan: Pt is a 67 yo male w hx of SERRANO cirrhosis (MELD 32), complicated by varices, phg, GAVE, CKD, chronic anemia who is currently admitted with suspected urosepsis (blood and urine cx growing GPC; + VRE and E. faecium) currently on Daptomycin. Diagnostic paracentesis done 08/14 wo signs of SBP. ID following. He's started having melena 2 days ago and now rectal bleeding. Last received 2U PRBC 08/14/2022. EGD/Sigmoidscopy 08/16 - GAVE oozing but no therapy done given food in stomach, + portal colopathy - NPO - Protonix 40mg IV BID, Carafate 1g QID - PRBC transfusion for goal Hgb >7. Monitor blood ct closely - Electrolyte correction per primary team - Continue Lactulose (titrate for goal bm 3-5 a day); Xifaxan 550mg BID - Daptomycin IV - Midodrine 15mg TID, add Octreotide 50mcg IV gtt - Repeat EGD and sigmoidscopy today Admission and Anticipated Discharge Date Admission Date: August 13, 2022 Subjective Pt passing several bouts of red blood per rectum overnight and this AM. He is having epigastric pain and also nauseated wo vomiting Review of Systems Review of Systems: All systems reviewed & are unremarkable except as noted in HPI & below Physical Exam Constitutional: + ill appearing, well groomed and cooperative Eyes: icteric sclera, PERRLA, EOMs intact ENMT: external ear and nose normal, oropharynx normal Respiratory: normal respiratory effort, lungs clear to auscultation Cardiovascular: RRR, no murmur, no edema Gastrointestinal (Abdomen): epigastric pain, BS hypoactive, soft Skin: no rashes, warm and dry + jaundice Psychiatric: A+Ox3, euthymic affect Lymphatic: + lymphedema (+1 pitting edema bilateral LE ) Results & Data Vital Signs (Past 12 Hours) Vital Signs Temp Pulse Pulse Resp BP Pulse Ox O2 Del Method 08/17/22 07:39 36.6 C 76 18 94/59 L 97 Room Air 08/17/22 04:24 36.6 C 71 18 117/64 97 Room Air 08/17/22 00:09 74 08/16/22 23:36 36.6 C 77 18 101/64 96 Room Air (1) Sepsis Sepsis acute organ dysfunction status: without acute organ dysfunction Sepsis type: sepsis due to unspecified organism Qualified Code(s): A41.9 - Sepsis, unspecified organism
[2022-08-17] MEDS ORDERED: PANTOprazole 40 MG in SYRINGE 0 ML IV SCH (09:00)
[2022-08-17 09:23] LABS: Basophils # (auto) 0.04 K/uL (0-0.2); Basophils % (auto) 0.6 %; Eosinophils # (auto) 0.31 K/uL (0-0.50); Eosinophils % (auto) 4.8 %; Hematocrit (blood only) 25.3 % (42.0-52.0); Hemoglobin 8.6 g/dl (14.0-18.0); Immature Granulocytes # (auto) 0.02 K/uL (0.01-0.20); Immature Granulocytes % (auto) 0.3 %; Lymphocytes # (auto) 0.42 K/uL (1.2-3.4); Lymphocytes % (auto) 6.5 %; Mean Corpuscular Hemoglobin 34.5 pg (25.0-34.0); Mean Corpuscular Volume 101.6 fL (80.0-100.0); Mean Platelet Volume 9.6 fL (9.4-12.4); Monocytes # (auto) 0.71 K/uL (0.11-0.59); Neutrophils # (auto) 4.93 K/uL (1.40-6.50); Neutrophils % (auto) 76.8 %; Platelet Count 45 K/uL (130-400); RDW Coefficient of Variation 23.9 % (11.5-14.5); RDW Standard Deviation 87.7 fL (36.4-46.3); Red Blood Count 2.49 M/uL (4.70-6.10); White Blood Count 6.43 K/ul (4.8-10.8)
[2022-08-17 09:28] LABS: Albumin Globulin Ratio 1.2 (0.9-2); BUN Creatinine Ratio 15.6 (10-20); Bilirubin,Total 4.5 mg/dl (0.2-1.0); Calcium 10.1 mg/dl (8.6-10.3); Est GFR (African American) 31.4 ml/min; Est GFR (Non-African American) 27.1 ml/min; Globulin 2.5 gm/dl (2.5-4.0); Total Protein 5.5 gm/dl (6.0-8.3)
[2022-08-17 09:29] LABS: Albumin Level 3.1 gm/dl (3.4-5.0); BUN Creatinine Ratio 15.8 (10-20); Calcium 10.1 mg/dl (8.6-10.3); Creatinine Clr Calc Pharmacy 35.6 ml/min; Est GFR (Non-African American) 26.7 ml/min; Phosphorus 2.2 mg/dl (2.5-4.9)
[2022-08-17 09:38] LABS: Potassium 4.3 mmol/L (3.5-5.1)
[2022-08-17 09:39] LABS: Potassium 4.3 mmol/L (3.5-5.1)
--- NOTE | 2022-08-17 09:41 | Hospitalist Progress Note ---
Date of Service August 17, 2022 Assessment & Plan (1) Sepsis: Plan: Spike is a 67 yo male with a pmh of cirrhosis, GAVE, CHF who presents with bacteremia, anemia and Acute on chronic kidney disease. Today he is hemodynamically stable. #Sepsis Lactate 2.2 -> 2.0 with NSS given in the ER. Blood culture showed enterococcus. Bacteruria without urinary symptoms. Paracentesis was negative for WBC or bacteria. Hemodynamically stable. WBC in normal range. * Continue Daptomycin 850 mg q24 * Continue Zosyn while awaiting EGD #Back Pain See HPI. Likely MSK due to tenderness with palpation. Will continue to monitor. * Lidocaine patch, 12 hr * Tylenol PRN #Hyperkalemia K: 5.8 >> 5.1 * No additional Patiromer today. #Anemia Hgb: admission: 8.0 > 6.8 > RBC given> 7.9 > 6.6 > RBC given > 8.1 > 7.5 > 8.6 today. Likely GAVE bleed. Potential additional dilutionary effect. * See GAVE * 2 units of blood so far. #Gastric Antral Vascular Ectasia Multiple blood transfusions as above. Likely GAVE bleed. * GI following. EGD scheduled for today. * Pantoprazole was put to PO and is going to be changed back to IV. * Octreotide 500 m * Albumin #RUQ Abdominal Pain Chronic. Reportedly always has this - suspect from ascites. #Chronic Kidney Disease, stage III, Cre 2.3 > 2.6 > 2.55. At baseline, continue to monitor. #Liver Cirrhosis secondary to SERRANO, chronic stable Pt is questioning if he is on the transplant list, MELD 26, 85.4% 90 day survival * Hold spironolactone due to hypotension and tachycardia in setting of suspected infection * Continue midodrine #UTI Denies urinary symptoms. Bacteruria on UA. See Sepsis #Urethral stricture No urine retention on CT. Monitor for worsening urine output. Urethral dilation performed June 12. #Spinal Stenosis Suspect cause of his back pain #Bacteremia See Sepsis VTE Prophylaxis - deferred due to repeated need for blood transfusions and GAVE Diet - low Na Disposition - admit to med/tele DNR/DNI (2) Urinary tract infection: Plan: Asymptomatic, bacteruria. (3) Anemia: (4) Urethral stricture: (5) 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: (6) Spinal stenosis: (7) Abdominal pain: (8) CKD (chronic kidney disease), stage III: (9) GAVE (gastric antral vascular ectasia): (10) Bacteremia: Plan: Blood cultures postitive for enterococcus. Admission and Anticipated Discharge Date Admission Date: August 13, 2022 Supervising Physician Co-Signing Physician Notes I personally examined the patient and verified all [place] points of history and exam, discussed case, and agree with decision making with Mikki Kaur MS4 and Dr. Leonard Ongoing back paingetting worse.. Vitals noted, in general resting comfortably but then appears in pain whenever having rollover. HEENT normocephalic atraumatic mucous membranes moist. Breathing unlabored no accessory muscle use. Neuro shows cranial nerves II through XII to be grossly intact gross motor and sensory intact. Skin with diffuse bruising, he has some scleral icterus. Bony tenderness along mid Thoracics Sepsisblood cultures showing bacteremiadespite lack of urinary symptoms, his urine and blood matchprobably UTI leading to sepsis/bacteremiaecho reassuring, follow-up blood cultures negative thus farcontinue daptomycinprobably 14 days, but await ID input for full duration AKIon CKDsuspect from dehydration/prerenal/septic physiologycannot rule out an element of ATN at this time, improving Anemiaacute on chronicand also "acute on acute"with probably delusional initially, and now upper GI bleeding from portal hypertensive gastropathytransfused 2 units of packed red cells thus far, appears to be stabilizing, input from GI appreciated DVT prophylaxispharmacologic contraindicated due to GAVE syndrome and portal hypertensive gastropathy, SCDs have been ordered Otherwise as above Subjective Had two episodes of bloody BM overnight. Today was feeling particularly nauseous and with increased back pain tender with even light touch. Denies abdominal pain, chest pain, sob. Review of Systems Constitutional: Denied fever, night sweats, fatigue, weakness, dizziness Eyes: Blurry vision (chronic) Respiratory: Denied cough or shortness of breath. Cardiovascular: Additional Comments: Denied chest pain, palpitations Gastrointestinal: Denied vomiting, diarrhea, abdominal pain. Endorsed nausea. Genitourinary: no dysuria, no difficulty urinating or no urinary frequency Musculoskeletal: Back pain generalized down the whole back. Neurologic: Denied weaknesss, numbness, or tingling. Physical Exam Constitutional: Alert and oriented x3 in hopsital bed Eyes: Pupils were equal, normal shape, and reactive. Neck: Respiratory: CTA, no increased work of breathing Cardiovascular: Normal rate and regular rhythmn. S1S2, no additional heart sounds auscultated. Radial pulses equal b/l. Capillary refill less than 2 sec. Gastrointestinal (Abdomen): Nondistended, nontender, normoactive bowel sounds. Skin: Warm dry, no apparent rashed. Psychiatric: Appropriate mood and affect. Lymphatic: No lymphadenopathy in the neck and cervical region. Results & Data Results & Data Vital Signs (Past 12 Hours) Vital Signs Temp Pulse Pulse Resp BP Pulse Ox O2 Del Method 08/17/22 07:39 36.6 C 76 18 94/59 L 97 Room Air 08/17/22 04:24 36.6 C 71 18 117/64 97 Room Air 08/17/22 00:09 74 08/16/22 23:36 36.6 C 77 18 101/64 96 Room Air Laboratory Results 08/17/22 08:38 08/17/22 08:38 (1) Sepsis Sepsis acute organ dysfunction status: without acute organ dysfunction Sepsis type: sepsis due to unspecified organism Qualified Code(s): A41.9 - Sepsis, unspecified organism (2) Urinary tract infection Hematuria presence: with hematuria Urinary tract infection type: site unspecified Qualified Code(s): N39.0 - Urinary tract infection, site not specified; R31.9 - Hematuria, unspecified
[2022-08-17] MEDS ORDERED: ACETAMINOPHEN 325 MG TAB PO SCH (09:45)
[2022-08-17 09:51] LABS: Lyme Ab IgG w/WB Rflx Negative (Negative); Lyme Ab IgM w/WB Rflx Negative (Negative)
[2022-08-17 10:00] LABS: Acanthocytes 1+; Anisocytosis Present; Echinocytes 1+
--- NOTE | 2022-08-17 11:23 | Anesthesiology Consultation ---
Date of Service August 17, 2022 Assessment & Plan Chart Review Chart Review: Acceptable Risk for Surgery and Patient NOT seen in Pre Admission Testing Consults Requested none ASA ASA4 Proposed Anesthesia Anesthesia Type: MAC Risk / Benefits Reviewed With: PT / POA / Parent / Guardian, Accepts Plan and Informed Consent Obtained History Surgery Operation Date: 08/16/22 17:30 Proposed Procedures p Esophagogastroduodenoscopy Dr Loi Fair MD Operation Date: 08/17/22 17:30 Proposed Procedures p Esophagogastroduodenoscopy Dr Loi Fair MD Height/Weight Height: 5 ft 9 in Weight: 107.5 kg Allergies Allergy/AdvReac Type Severity Reaction Status Date / Time tamsulosin Allergy Intermediate HIVES Verified 08/13/22 16:20 etanercept [From Enbrel] AdvReac Intermediate Increased Verified 08/13/22 16:20 infections Medications Home Medications Medication Instructions Recorded Confirmed Last Taken cholecalciferol (vitamin D3) 50 50 mcg PO QAM #90 caps 05/15/21 08/13/22 06/07/22 mcg (2,000 unit) capsule vitamin B complex 1 tab PO DAILY 10/23/21 08/13/22 06/07/22 am rifaximin 550 mg tablet (Xifaxan) 550 mg PO BID #60 tabs 01/16/22 08/13/22 06/07/22 08:30 darbepoetin coretta in polysorbat 100 100 mcg subcut .COMPLEX PRN 05/23/2205/22/22 11:00 mcg/0.5 mL in polysorbate NEEDED injection syringe paroxetine HCl 10 mg tablet 10 mg PO QPM 06/21/22 08/13/22 Unknown midodrine 10 mg tablet 10 mg PO TID #90 tabs 07/21/22 08/13/22 Unknown spironolactone 50 mg tablet 50 mg PO BID #60 tabs 07/21/22 08/13/22 Unknown sucralfate 100 mg/mL oral 10 ml PO ACHS #1,000 mL 07/21/22 08/13/22 Unknown suspension ondansetron HCl 4 mg tablet 4 mg PO Q8H PRN Nausea And 08/08/22 08/13/22 Unknown Vomiting #30 tabs pantoprazole 40 mg tablet,delayed 40 mg PO BID #60 tabs 08/08/22 08/13/22 Unknown release lactulose 10 gram/15 mL oral 20 g (30 mL) PO DAILY #946 mL 08/10/22 08/13/22 Unknown solution Active Medications Generic Name Dose Route Start Last Admin Trade Name Freq PRN Reason Stop Dose Admin Daptomycin 850 mg/ Syringe 17 mls @ 8.5 mls/min 08/14/22 20:00 08/16/22 20:12 IV 08/28/22 19:59 8.5 mls/min Q24H LUZ Administration Protocol Octreotide Acetate 500 mcg/ 100.5 mls @ 10.05 mls/hr 08/15/22 12:00 08/17/22 02:30 Dextrose IV 09/14/22 11:59 50 mcg/hr .Q10H LUZ 10.1 mls/hr Administration 50 MCG/HR Pantoprazole Sodium 40 mg/ 10 mls @ 5 mls/min 08/17/22 09:00 08/17/22 09:50 Syringe IV 09/16/22 08:59 5 mls/min BID LUZ Administration Lactulose 20 gm 08/14/22 09:00 08/17/22 08:25 Lactulose Syrup 20 Gm/30 Ml Udc PO 09/13/22 08:59 20 gm DAILY LUZ Administration Midodrine 15 mg 08/15/22 12:00 08/17/22 08:26 Midodrine Hcl 2.5 Mg Tab PO 09/14/22 11:59 15 mg TIDM LUZ Administration Ondansetron HCl 4 mg 08/13/22 19:00 08/17/22 08:30 Ondansetron 4 Mg Od Tab PO 09/12/22 18:59 4 mg Q8H PRN Administration Nausea And Vomiting Paroxetine HCl 10 mg 08/13/22 21:00 08/16/22 20:07 Paroxetine Hcl 10 Mg Tab PO 09/12/22 20:59 10 mg QPM LUZ Administration Rifaximin 550 mg 08/13/22 21:00 08/17/22 08:25 Rifaximin 550 Mg Tablet PO 09/12/22 20:59 550 mg BID LUZ Administration Sucralfate 1 gm 08/13/22 21:00 08/17/22 08:26 Sucralfate 1 Gm/10 Ml Udc PO 09/12/22 20:59 1 gm ACHS LUZ Administration Vitamin B Complex 1 tab 08/14/22 09:00 08/17/22 08:26 Vitamin B Complex Tab PO 09/13/22 08:59 1 tab DAILY LUZ Administration Vitamin D 2,000 units 08/14/22 09:00 08/17/22 08:26 Cholecalciferol 1,000 Units 25 Mcg Tab PO 09/13/22 08:59 2,000 units QAM LUZ Administration NPO Date Last Intake of Fluids: 08/15/22 Time Last Intake of Fluids: 18:00 Last Intake of Fluids Comment: sip with meds Date Last Intake of Solids: 08/15/22 Time Last Intake of Solids: 18:00 Past Medical History Medical History Anemia Ascites Calculus of kidney Cervical disc disease CKD (chronic kidney disease), stage III Depression Esophageal varices determined by endoscopy GAVE (gastric antral vascular ectasia) Per records GERD (gastroesophageal reflux disease) History of GI bleed discharged from [facility] 06/10/22: borderline hemorrhagic shock-upper GI bleed suspected to be d/t GAVE-received 1 unit of PRBC History of herniated intervertebral disc lumbar area History of SCC (squamous cell carcinoma) of skin S/p removal- follows with derm Hx of blood clots 06/2021 @ [facility]- pt reports blood clot in left arm around IV site after being discharged from hospital- no meds due to current blood loss issue- warm compresses to site per pt- 2 ultrasounds done - no current issues Hx of upper gastrointestinal hemorrhage recent hospitalization at [facility] 06/07/2022 Hyperkalemia Hypothyroidism 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 current work-up for planned liver transplant per [facility] transplant clinic records Lumbar disc disease Oral mucositis On mouthwash daily- no recent issues Pancytopenia Portal hypertensive gastropathy Post-traumatic urethral stricture Psoriasis Psoriatic arthritis PVT (portal vein thrombosis) denies Spinal stenosis EPIDURAL INJECTIONS IN PAST FOR PAIN RELIEF TMJ arthralgia Urinary retention Urinary tract infection Wide-complex tachycardia ON CARDVEDILOL-F/U DR VANESSA LAST VISIT<1 YR AGO Exercise / Class Metabolic Activity II 4-5 Yardwork/Stairs/Walk up hill Past Family History Family History Grandmother (Maternal) Diabetes Father Renal cancer Mother Aortic aneurysm Denies family history of Ovarian cancer Prostate cancer Myocardial infarction Breast cancer Colorectal cancer Past Surgical History Surgical History H/O foot surgery excision of neuroma b/l feet History of appendectomy History of arthroscopy RT KNEE History of cataract surgery RT/LEFT History of cholecystectomy History of esophagogastroduodenoscopy (EGD) last 03/21/22 @ [facility] 02/08/22 Dr. Sara Cloud- EGD- Grade I esophageal varices, Portal hypertensive gastropathy History of herniorrhaphy right inguinal History of lithotripsy History of liver biopsy History of repair of rotator cuff RT/LEFT History of tooth extraction History of urologic surgery Urethral reconstruction 4 years ago at [facility] Nausea and vomiting after administration of anesthetic agent S/P colonoscopy S/P epidural steroid injection S/P orchiectomy Right age 9 for UDT S/P urological surgery (2018) [facility] [place] Suprapubic catheter AND REMOVAL Past Anesthesia History No Hx of Anesthesia Complications and No Family Hx of Anesthesia Complications History of PONV No Hx of PONV and No Hx of Motion Sickness Social History Smoking Status: Never smoker Do You Dip or Chew Tobacco: No Hx Alcohol Use: No Hx Substance Use: No substance use type: does not use Physical Exam Vital Signs Last Vital Signs Temp 36.4 C L 08/17/22 10:56 Pulse 68 08/17/22 10:56 Resp 19 08/17/22 10:56 BP 104/67 08/17/22 10:56 Pulse Ox 98 08/17/22 10:56 O2 Del Method Room Air 08/17/22 10:56 O2 Flow Rate 2 08/14/22 22:30 ENMT Mouth: + edentulous Thyromental Distance: > or= 3.5 Finger Breadths Mallampati Class: II Neck normal visual inspection Respiratory normal respiratory effort Auscultation: lungs clear to auscultation bilaterally Cardiovascular Rate/Rhythm: regular rate and regular rhythm Psychiatric Orientation: alert Testing Laboratory Results 08/17/22 08:38 08/17/22 08:38 PT 17.1 Seconds (9.0-12.0) H 08/14/22 06:48 INR 1.6 (0.9-1.1) H 08/14/22 06:48 APTT 29.4 Seconds (21.0-31.0) 08/13/22 12:43 Urine Color Yellow 08/15/22 14:30 Urine Appearance Clear (Clear) 08/15/22 14:30 Urine pH 5.5 (4.5-7.5) 08/15/22 14:30 Ur Specific Cyril 1.019 (1.000-1.030) 08/15/22 14:30 Urine Protein Trace (Negative) H 08/15/22 14:30 Urine Glucose (UA) Negative (Negative) 08/15/22 14:30 Urine Ketones Negative (Negative) 08/15/22 14:30 Urine Nitrite Negative (Negative) 08/15/22 14:30 Ur Leukocyte Esterase 2+ (Negative) H 08/15/22 14:30 Urine WBC (Auto) 10-30 /hpf (0-5) H 08/15/22 14:30 Urine RBC (Auto) 5-10 /hpf (0-4) H 08/15/22 14:30 U Hyaline Cast (Auto) 1-5 /lpf (0-5) 08/15/22 14:30 U Epithel Cells (Auto) >30 /lpf (0-5) H 08/15/22 14:30 Urine Bacteria (Auto) Negative (Negative) 08/15/22 14:30 Blood Type O Positive 08/14/22 08:25 Antibody Screen NEGATIVE 08/14/22 08:25 08/15/22 10:08 Aerobic Blood Culture - Preliminary Blood No growth in Aerobic bottle after 24 hours. Anaerobic Blood Culture - Preliminary No growth in Anaerobic bottle after 24 hours. 08/15/22 10:24 Aerobic Blood Culture - Preliminary Blood No growth in Aerobic bottle after 24 hours. Anaerobic Blood Culture - Preliminary No growth in Anaerobic bottle after 24 hours. 08/13/22 13:48 Aerobic Blood Culture - Final Blood Enterococcus faecium VRE Anaerobic Blood Culture - Final Enterococcus faecium VRE 08/13/22 12:43 Aerobic Blood Culture - Final Blood Enterococcus faecium VRE Anaerobic Blood Culture - Final Enterococcus faecium VRE 08/13/22 14:05 Urine Culture - Final Urine,Clean Catch Enterococcus faecium VRE 08/14/22 Unknown Gram Stain - Final Peritoneal Fluid Aerobic and Anaerobic Culture - Preliminary No growth to date. Electrocardiogram Date: 08/13/22 Findings: + ST @ (@ 117;low voltage QRS) Chest X-Ray Date: 08/13/22 Findings: + NAD Echocardiogram Date: 08/15/22 EF: 65% LV Function: normal RWMA: + none Other Findings: + LVH (mild) Valvular Disease: + no significant valvular disease Stress Test Date: 06/11/22 Type: nuclear Findings: + WNL
[2022-08-17] MEDS: ACETAMINOPHEN 325 MG TAB PO SCH ×2 (11:26→17:22)
--- NOTE | 2022-08-17 11:27 | History & Physical Bridge Note ---
Date of Service August 17, 2022 History & Physical Bridge Note I have examined the patient, reviewed the History & Physical and in the interval since the performance of the History & Physical I have noted the following changes of clinical significance: no changes noted
--- NOTE | 2022-08-17 12:21 | Nephrology Progress Note ---
Date of Service August 17, 2022 Assessment & Plan (1) COLLIN (acute kidney injury): (2) Hyperkalemia: (3) Bacteremia: (4) Sepsis: (5) Upper GI bleeding: (6) Urinary tract infection: Plan 67-year-old gentleman with past medical history significant for stage IIIB CKD b/l cr 1.5-2 0, cirrhosis with SERRANO, admitted with generalized weakness and sepsis with enterococcal UTI and bacteremia. Noted to have COLLIN and multiple electrolyte abnormality including hyponatremia as well as hyperkalemia. Creatinine on admission was 2.1 which slightly worsened over last 2 days to 2.7 with multiple electrolyte abnormality possibly secondary to hemodynamic effect from hypotension and decreased intravascular volume in the setting of cirrhosis, hypoalbuminemia. Renal function continues to improve slowly, electrolyte reasonable. Blood pressure relatively low and continues to have ongoing GI bleeding. -- continue hemodynamic support, monitor renal function and electrolyte and hold diuretics for now Will sign off, thank you for the consult, please contact if any further assistance needed. Admission and Anticipated Discharge Date Admission Date: August 13, 2022 Cruzito Lala was seen this morning. He has not been feeling well, complaining of abdominal pain and discomfort. He has been having bloody bowel movement overnight, hemoglobin up yesterday to 7.3 which slightly improved this morning. Renal function staying relatively stable with slight improvement in creatinine. Review of Systems Review of Systems: ROS was otherwise unremarkable. Physical Exam Constitutional: WD/WN, vitals as above + ill appearing; no acute distress Eyes: + anicteric sclerae Neck: normal visual inspection Respiratory: no respiratory distress Auscultation: lungs clear to auscultation bilaterally Cardiovascular: Rate/Rhythm: regular rate and regular rhythm Heart Sounds: normal S1 and normal S2 Extremities: + edema Musculoskeletal: Mildly edematous bilateral upper and lower extremity. Skin: Few bruises Neurologic: no focal motor deficits and not confused Motor/Sensory: + asterixis Psychiatric: Orientation: alert and oriented x 3 Affect: euthymic affect Results & Data Vital Signs (Past 12 Hours) Vital Signs Temp Pulse Resp BP Pulse Ox O2 Del Method 08/17/22 12:08 65 16 101/50 L 99 Room Air 08/17/22 11:52 65 16 99/46 L 98 Room Air 08/17/22 11:11 36.5 C 64 20 110/70 95 Room Air 08/17/22 10:56 36.4 C L 68 19 104/67 98 Room Air 08/17/22 07:39 36.6 C 76 18 94/59 L 97 Room Air 08/17/22 04:24 36.6 C 71 18 117/64 97 Room Air PG Care Time/CCT Total # of Minutes Spent Total Time Spent with Patient: Total time spent is greater than 50% in coordination of care (as documented) at patient's floor/unit and/or counseling patient: Coding Level of Care Code 49101 SUB INP/OBS CARE 235MIN Diagnoses COLLIN (acute kidney injury) N17.9 Hyperkalemia E87.5 Bacteremia R78.81 Sepsis A41.9 Sepsis acute organ dysfunction status: without acute organ dysfunction Sepsis type: sepsis due to unspecified organism Upper GI bleeding K92.2 Urinary tract infection N39.0; R31.9 Hematuria presence: with hematuria Urinary tract infection type: site unspecified (4) Sepsis Sepsis acute organ dysfunction status: without acute organ dysfunction Sepsis type: sepsis due to unspecified organism Qualified Code(s): A41.9 - Sepsis, unspecified organism (6) Urinary tract infection Hematuria presence: with hematuria Urinary tract infection type: site unspecified Qualified Code(s): N39.0 - Urinary tract infection, site not specified; R31.9 - Hematuria, unspecified
--- NOTE | 2022-08-17 12:54 | Anesthesiology Progress Note ---
Date of Service August 17, 2022 Anesthesia Post Procedure Vital Signs Vital Signs: Temp Pulse Pulse Resp BP Pulse Ox O2 Del Method 08/17/22 12:23 64 20 104/50 L 100 Room Air 08/17/22 12:08 65 16 101/50 L 99 Room Air 08/17/22 11:52 65 16 99/46 L 98 Room Air 08/17/22 11:11 36.5 C 64 20 110/70 95 Room Air 08/17/22 10:56 36.4 C L 68 19 104/67 98 Room Air 08/17/22 07:39 36.6 C 76 18 94/59 L 97 Room Air 08/17/22 04:24 36.6 C 71 18 117/64 97 Room Air 08/17/22 00:09 74 08/16/22 23:36 36.6 C 77 18 101/64 96 Room Air 08/16/22 19:53 36.4 C L 70 18 104/62 97 Room Air 08/16/22 15:57 36.5 C 77 18 101/64 97 Room Air 08/16/22 12:57 36.6 C 69 20 93/57 L 94 Room Air Transfer of Care Handoff Completed per policy Notes Mental Status: alert / awake / arousable Patient Amnestic to Procedure: Yes Nausea / Vomiting: adequately controlled Pain: adequately controlled Airway Patency, RR, SpO2: stable & adequate BP & HR: stable & adequate Hydration State: stable & adequate Anesthetic Complications: no major complications apparent
--- NOTE | 2022-08-17 13:22 | GI REPORT ---
Patient Name: Sebastian Quiñonez Procedure Date: 08/17/2022 11:09 AM Date of : 1955 Admit Type: Inpatient Age: 67 Gender: Male Attending MD: Kindra Fair MD, Procedure: Upper GI endoscopy Providers: Kindra Fair MD Referring MD: Margarito Zamudio Indications: Acute post hemorrhagic anemia Medicines: See the Anesthesia note for documentation of the administered medications Complications: No immediate complications. Estimated Blood Loss: Estimated blood loss: none. Procedure: Pre-Anesthesia Assessment: - ASA Grade Assessment: III - A patient with severe systemic disease. After obtaining informed consent, the endoscope was passed under direct vision. Throughout the procedure, the patient's blood pressure, pulse, and oxygen saturations were monitored continuously. The Endoscope was introduced through the mouth, and advanced to the second part of duodenum. The upper GI endoscopy was accomplished without difficulty. The patient tolerated the procedure well. Findings: One grade 1 varix without high risk stigmata found in the distal esophagus. There was diffuse snakeskin appearance and petechiae throughout the entire stomach, involving the fundus, cardia, body, and antrum. Although yesterday the antral findings were thought to more likely to be GAVE, exam today was more consistent with severe portal gastropathy involving the entire stomach, although . There was an inflammatory polyp in the cardia that was oozing; this was treated with APC and clipped x 1. There were a few oozing spots that were treated with APC at standard settings. There was diffuse petechiae and snakeskin appearance of the duodenum, suggestive of portal enteropathy or duodenal vascular ectasia. Recommendation: - Discharge patient to floor. Kindra Fair M.D. Kindra Fair MD 08/17/2022 1:21:30 PM This report has been signed electronically. Note Initiated On: 08/17/2022 11:09 AM Number of Addenda: 0 I attest to the content of the Intraoperative Record and orders documented therein, exceptions below {[id number]}
--- NOTE | 2022-08-17 13:24 | GI REPORT ---
Patient Name: Sebastian Quiñonez Procedure Date: 08/17/2022 11:10 AM Date of : 1955 Admit Type: Inpatient Age: 67 Gender: Male Attending MD: Kindra Fair MD, Procedure: Flexible Sigmoidoscopy Providers: Kindra Fair MD Referring MD: Margarito Zamudio Indications: Rectal hemorrhage Medicines: See the Anesthesia note for documentation of the administered medications Complications: No immediate complications. Procedure: Pre-Anesthesia Assessment: - ASA Grade Assessment: III - A patient with severe systemic disease. After obtaining informed consent, the endoscope was passed under direct vision. Throughout the procedure, the patient's blood pressure, pulse, and oxygen saturations were monitored continuously. The Endoscope was introduced through the anus and advanced to the splenic flexure. The flexible sigmoidoscopy was accomplished without difficulty. The patient tolerated the procedure well. The quality of the bowel preparation was good. Findings: The perianal and digital rectal examinations were normal. There was brown stool throughout the entire examined colon. There was mild portal colopathy in the rectum. There were sigmoid diverticula. Small hemorrhoids. Otherwise unremarkable exam. Recommendation: - Discharge patient to floor. - Diet as tolerated. Kindra Fair M.D. Kindra Fair MD 08/17/2022 1:23:42 PM This report has been signed electronically. Note Initiated On: 08/17/2022 11:10 AM Number of Addenda: 0 I attest to the content of the Intraoperative Record and orders documented therein, exceptions below {[id number]}
--- NOTE | 2022-08-17 16:30 | Billing Data ---
Date of Service August 17, 2022 Coding Level of Care Code 62038 SUB INP/OBS CARE MIN
--- NOTE | 2022-08-17 16:48 | Infectious Disease Progress Nt ---
Date of Service August 17, 2022 Assessment & Plan (1) Bacteremia: (2) Sepsis: (3) Acute UTI (urinary tract infection): Plan This is a 67 year old male with pmh of CKD, SERRANO cirrhosis w GAVE, portal hypertensive gastropathy, spinal stenosis, chronic anemia who presents with lethargy, weakness, dizziness, abdominal pain with some nausea and increased back pain and body aches. He denies fever, cough, chills, vomiting, change in bowel or urine habits, dysuria, hematuria or blood in stool. He reports falling about 3 weeks ago, but did not let his home nurse of family know. Since than he has had increased back pain. Vitals on admission: Fever with T 38.1C, 115/72, Pulse 116, RR 22, O2 97% on RA. Labs noted for a WBc 8.17 -->11.59, hgb 8--> 6.5, hct 23--->20.5, plts 70--->44, Bun 36, cr 2.46.UA 1 + leuk est, > 30 WBc , 0-4 RBC, 2+ bacteria. Sars cov 2, influenza, rsv pcr panel negative. Respiratory pcr panel negative. CXR clear for acute process. CTAB showed no acute diverticulitis, + hepatic cirrhosis with perisplenic varices, abdominal and pelvic ascites. Admission BC + in 05/29 bottles for VRE. UC grew > 100,000 cfu VRE. He underwent a paracentesis w/ removal of 400 ml of yellow ascites fluid, 70 WBC, cx sterile to date. A TTE was done that showed no valvulopathy or vegetations. His course was complicated by downtrending H/H requiring PRBC transfusion. He reported red and black loose stool on lactulose . He was evaluated by GI and underwent EGD and Colonoscopy . ID consulted for bacteremia. MICRO BC 08/13 05/29 bottles VRE BC 08/13 >100,000 VRE Ascites CX 08/14 NGTD BC 08/15- NGTD ABX zosyn 08/13-08/15 Dapto 08/13-ongoing 1.VRE bacteremia 2.Sepsis on admission 3.VRE UTI 4.COLLIN on CKD 5.Anemia /Thrombocytopenia 6. Acute on chronic back pain The etiology of the VRE bacteremia is unclear. It could be urinary or GI. He report abdominal pain with distention, nausea. He underwent paracentesis with fluid cultures sterile far. There is no evidence of SBP. He as had melena these last few days with drop in H.H and underwent EGD *2 and colonoscopy and sigmoidosccopy. EGd with severe gastropathy with an oozing polyp. Sigmoidoscopy + mild portal colopathy. He has VRE in urine cx. He denies urine changes or dysuria but has suprapubic abdominal tenderness on exam and lower back pain and tenderness. He denies prosthetics or hardware. A TTE shows no significant valvulopathy or vegetations. On exam he, has acute on chronic back pain from cervical to lumbar spine. Repeat BC on 08/15 with no growth to date. He has chronic anemia which has worsened and progressive thrombocytopenia. These are likely secondary to liver disease. He denies tick exposures recently.Lyme negative. Recommendations -Continue Daptomycin 8mg/kg ( 850 mg) iv daily for vre bacteremia cr cr > 30 , CPK 22 -Consider MRI spine in setting of acute on chronic back pain and bacteremia of unclear etiology and fall 3 weeks ago - Follow up Ehrlichia, Babesia PCR in setting of thrombocytopenia,anemia, slight elev of lft although likely secondary to Liver dz Plan to treat VRE bacteremia for 14 days total from sterile cx. EOT 08/29/22 On therapy, obtain weekly cbc with diff, lft , bmp, CPK ID will continue to follow. Reji Murray MD, MPH Infectious Disease [facility], ID Division Call [phone] with questions Admission and Anticipated Discharge Date Admission Date: August 13, 2022 Subjective This patient recommendation is based on a telemedicine consult request which was completed asynchronously through chart review and information provided by the primary physician. The patient was not seen or examined today. The evaluation is consultative in nature and all patient care and treatment decisions can either be accepted or rejected by the patient's primary hospital-based treating physician using their own independent medical judgment for their patient. Time Spent Reviewing Chart: 21 - 30 minutes had many episode of BPR O/N with epigastric pain. He underwent repeat EGD and sigmoidoscopy. EGd with severe gastropathy with an oozing polyp Sigmoidoscopy + mild portal colopathy. l Results & Data Vital Signs (Past 12 Hours) Vital Signs Temp Pulse Resp BP Pulse Ox O2 Del Method 08/17/22 15:47 36.4 C L 71 18 108/65 98 Room Air 08/17/22 12:23 64 20 104/50 L 100 Room Air 08/17/22 12:08 65 16 101/50 L 99 Room Air 08/17/22 11:52 65 16 99/46 L 98 Room Air 08/17/22 11:11 36.5 C 64 20 110/70 95 Room Air 08/17/22 10:56 36.4 C L 68 19 104/67 98 Room Air 08/17/22 07:39 36.6 C 76 18 94/59 L 97 Room Air Laboratory Results Laboratory Results - last 48 hr 08/15/22 08/16/22 08/16/22 20:02 02:14 02:14 WBC 5.87 RBC 2.05 L Hgb 7.3 L 7.2 L Hct 21.8 L 21.1 L MCV 102.9 H MCH 35.1 H MCHC 34.1 RDW Std Deviation RDW Coeff of Miguel Plt Count 35 L MPV 9.8 Immature Gran % (Auto) 0.3 Neut % (Auto) 82.3 Lymph % (Auto) 4.1 Estill % (Auto) 10.1 Eos % (Auto) 2.9 Baso % (Auto) 0.3 Neut # (Auto) 4.83 Lymph # (Auto) 0.24 L Estill # (Auto) 0.59 Eos # (Auto) 0.17 Baso # (Auto) 0.02 Immature Gran # (Auto) 0.02 Absolute Nucleated RBC Nucleated RBC % (auto) Neutrophils % (Manual) Band Neutrophils % Lymphocytes % (Manual) Prolymphocyte % Reactive Lymphs % (Man) Monocytes % (Manual) Eosinophils % (Manual) Basophils % (Manual) Metamyelocytes % (Man) Myelocytes % (Man) Promyelocytes % (Man) Blast Cells % (Manual) Plasma Cell % (Manual) Other Cells % Nucleated RBC % Neutrophils # (Manual) Band Neutrophils # Total Absolute Neuts Lymphocytes # (Manual) Prolymphocyte # Reactive Lymphs # Total Abs Lymphocytes Monocytes # (Manual) Eosinophils # (Manual) Basophils # (Manual) Metamyelocytes # (Man) Myelocytes # (Manual) Promyelocytes # (Man) Blast Cells # (Man) Plasma Cell # (Manual) Other Cells # Nucleated RBCs # (Man) Hypersegmented Neuts Hyposegmented Neuts Hypogranular Neuts Large Granular Lymphs # Lrg Granular Lymphs Hairy Cells Smudge Cells Toxic Granulation Toxic Vacuolation Dohle Bodies Analia Rods Platelet Estimate Hypogranular Platelets Giant Platelets Platelet Satelliting RBC Morphology Polychromasia 1+ Hypochromasia Poikilocytosis Basophilic Stippling Anisocytosis Microcytosis Macrocytosis Spherocytes Pappenheimer Bodies Sickle Cells Target Cells Tear Drop Cells Ovalocytes Stomatocytes [place]-Dragoon Bodies Echinocytes 1+ Acanthocytes (Spur) Rouleaux RBC Agglutinates Schistocytes Sezary Cell Sodium 130 L Potassium 5.1 Chloride 102 Carbon Dioxide 23 Anion Gap 5 BUN 44 H Creatinine 2.55 H Est Cr Clr Drug Dosing 33.3 Est GFR ( Amer) 28.8 Est GFR (Non-Af Amer) 24.8 BUN/Creatinine Ratio 17.3 Glucose 126 H Calcium 10.1 Phosphorus 2.8 Total Bilirubin AST ALT Alkaline Phosphatase Total Creatine Kinase Total Protein Albumin 3.0 L Globulin Albumin/Globulin Ratio Lyme Disease IgG Ab Lyme Disease IgM Ab Blood Parasites ID 08/16/22 08/17/22 08/17/22 08:43 08:38 08:38 WBC 6.43 RBC 2.49 L Hgb 7.5 L 8.6 L Hct 21.7 L 25.3 L MCV 101.6 H MCH 34.5 H MCHC 34.0 RDW Std Deviation 87.7 H RDW Coeff of Miguel 23.9 H Plt Count 45 L MPV 9.6 Immature Gran % (Auto) 0.3 Neut % (Auto) 76.8 Lymph % (Auto) 6.5 Estill % (Auto) 11.0 Eos % (Auto) 4.8 Baso % (Auto) 0.6 Neut # (Auto) 4.93 Lymph # (Auto) 0.42 L Estill # (Auto) 0.71 H Eos # (Auto) 0.31 Baso # (Auto) 0.04 Immature Gran # (Auto) 0.02 Absolute Nucleated RBC Nucleated RBC % (auto) Neutrophils % (Manual) Band Neutrophils % Lymphocytes % (Manual) Prolymphocyte % Reactive Lymphs % (Man) Monocytes % (Manual) Eosinophils % (Manual) Basophils % (Manual) Metamyelocytes % (Man) Myelocytes % (Man) Promyelocytes % (Man) Blast Cells % (Manual) Plasma Cell % (Manual) Other Cells % Nucleated RBC % Neutrophils # (Manual) Band Neutrophils # Total Absolute Neuts Lymphocytes # (Manual) Prolymphocyte # Reactive Lymphs # Total Abs Lymphocytes Monocytes # (Manual) Eosinophils # (Manual) Basophils # (Manual) Metamyelocytes # (Man) Myelocytes # (Manual) Promyelocytes # (Man) Blast Cells # (Man) Plasma Cell # (Manual) Other Cells # Nucleated RBCs # (Man) Hypersegmented Neuts Hyposegmented Neuts Hypogranular Neuts Large Granular Lymphs # Lrg Granular Lymphs Hairy Cells Smudge Cells Toxic Granulation Toxic Vacuolation Dohle Bodies Analia Rods Platelet Estimate Hypogranular Platelets Giant Platelets Platelet Satelliting RBC Morphology Polychromasia Hypochromasia Poikilocytosis Basophilic Stippling Anisocytosis Present Microcytosis Macrocytosis Spherocytes Pappenheimer Bodies Sickle Cells Target Cells Tear Drop Cells Ovalocytes Stomatocytes [place]-Dragoon Bodies Echinocytes 1+ Acanthocytes (Spur) 1+ Rouleaux RBC Agglutinates Schistocytes Sezary Cell Sodium 134 L Potassium 4.3 Chloride 105 Carbon Dioxide 24 Anion Gap 5 BUN 38 H Creatinine 2.40 H Est Cr Clr Drug Dosing 35.6 Est GFR ( Amer) 31.0 Est GFR (Non-Af Amer) 26.7 BUN/Creatinine Ratio 15.8 Glucose 128 H Calcium 10.1 Phosphorus 2.2 L Total Bilirubin AST ALT Alkaline Phosphatase Total Creatine Kinase Total Protein Albumin 3.1 L Globulin Albumin/Globulin Ratio Lyme Disease IgG Ab Lyme Disease IgM Ab Blood Parasites ID 08/17/22 08/17/22 08/17/22 08:38 08:38 08:38 WBC Cancelled RBC Cancelled Hgb Cancelled Hct Cancelled MCV Cancelled MCH Cancelled MCHC Cancelled RDW Std Deviation Cancelled RDW Coeff of Miguel Cancelled Plt Count Cancelled MPV Cancelled Immature Gran % (Auto) Cancelled Neut % (Auto) Cancelled Lymph % (Auto) Cancelled Estill % (Auto) Cancelled Eos % (Auto) Cancelled Baso % (Auto) Cancelled Neut # (Auto) Cancelled Lymph # (Auto) Cancelled Estill # (Auto) Cancelled Eos # (Auto) Cancelled Baso # (Auto) Cancelled Immature Gran # (Auto) Cancelled Absolute Nucleated RBC Cancelled Nucleated RBC % (auto) Cancelled Neutrophils % (Manual) Cancelled Band Neutrophils % Cancelled Lymphocytes % (Manual) Cancelled Prolymphocyte % Cancelled Reactive Lymphs % (Man) Cancelled Monocytes % (Manual) Cancelled Eosinophils % (Manual) Cancelled Basophils % (Manual) Cancelled Metamyelocytes % (Man) Cancelled Myelocytes % (Man) Cancelled Promyelocytes % (Man) Cancelled Blast Cells % (Manual) Cancelled Plasma Cell % (Manual) Cancelled Other Cells % Cancelled Nucleated RBC % Cancelled Neutrophils # (Manual) Cancelled Band Neutrophils # Cancelled Total Absolute Neuts Cancelled Lymphocytes # (Manual) Cancelled Prolymphocyte # Cancelled Reactive Lymphs # Cancelled Total Abs Lymphocytes Cancelled Monocytes # (Manual) Cancelled Eosinophils # (Manual) Cancelled Basophils # (Manual) Cancelled Metamyelocytes # (Man) Cancelled Myelocytes # (Manual) Cancelled Promyelocytes # (Man) Cancelled Blast Cells # (Man) Cancelled Plasma Cell # (Manual) Cancelled Other Cells # Cancelled Nucleated RBCs # (Man) Cancelled Hypersegmented Neuts Cancelled Hyposegmented Neuts Cancelled Hypogranular Neuts Cancelled Large Granular Lymphs Cancelled # Lrg Granular Lymphs Cancelled Hairy Cells Cancelled Smudge Cells Cancelled Toxic Granulation Cancelled Toxic Vacuolation Cancelled Dohle Bodies Cancelled Analia Rods Cancelled Platelet Estimate Cancelled Hypogranular Platelets Cancelled Giant Platelets Cancelled Platelet Satelliting Cancelled RBC Morphology Cancelled Polychromasia Cancelled Hypochromasia Cancelled Poikilocytosis Cancelled Basophilic Stippling Cancelled Anisocytosis Cancelled Microcytosis Cancelled Macrocytosis Cancelled Spherocytes Cancelled Pappenheimer Bodies Cancelled Sickle Cells Cancelled Target Cells Cancelled Tear Drop Cells Cancelled Ovalocytes Cancelled Stomatocytes Cancelled [place]-Dragoon Bodies Cancelled Echinocytes Cancelled Acanthocytes (Spur) Cancelled Rouleaux Cancelled RBC Agglutinates Cancelled Schistocytes Cancelled Sezary Cell Cancelled Sodium Potassium Chloride Carbon Dioxide Anion Gap BUN Creatinine Est Cr Clr Drug Dosing Est GFR ( Amer) Est GFR (Non-Af Amer) BUN/Creatinine Ratio Glucose Calcium Phosphorus Total Bilirubin AST ALT Alkaline Phosphatase Total Creatine Kinase 22 L Total Protein Albumin Globulin Albumin/Globulin Ratio Lyme Disease IgG Ab Negative Lyme Disease IgM Ab Negative Blood Parasites ID Cancelled 08/17/22 08:38 WBC RBC Hgb Hct MCV MCH MCHC RDW Std Deviation RDW Coeff of Miguel Plt Count MPV Immature Gran % (Auto) Neut % (Auto) Lymph % (Auto) Estill % (Auto) Eos % (Auto) Baso % (Auto) Neut # (Auto) Lymph # (Auto) Estill # (Auto) Eos # (Auto) Baso # (Auto) Immature Gran # (Auto) Absolute Nucleated RBC Nucleated RBC % (auto) Neutrophils % (Manual) Band Neutrophils % Lymphocytes % (Manual) Prolymphocyte % Reactive Lymphs % (Man) Monocytes % (Manual) Eosinophils % (Manual) Basophils % (Manual) Metamyelocytes % (Man) Myelocytes % (Man) Promyelocytes % (Man) Blast Cells % (Manual) Plasma Cell % (Manual) Other Cells % Nucleated RBC % Neutrophils # (Manual) Band Neutrophils # Total Absolute Neuts Lymphocytes # (Manual) Prolymphocyte # Reactive Lymphs # Total Abs Lymphocytes Monocytes # (Manual) Eosinophils # (Manual) Basophils # (Manual) Metamyelocytes # (Man) Myelocytes # (Manual) Promyelocytes # (Man) Blast Cells # (Man) Plasma Cell # (Manual) Other Cells # Nucleated RBCs # (Man) Hypersegmented Neuts Hyposegmented Neuts Hypogranular Neuts Large Granular Lymphs # Lrg Granular Lymphs Hairy Cells Smudge Cells Toxic Granulation Toxic Vacuolation Dohle Bodies Analia Rods Platelet Estimate Hypogranular Platelets Giant Platelets Platelet Satelliting RBC Morphology Polychromasia Hypochromasia Poikilocytosis Basophilic Stippling Anisocytosis Microcytosis Macrocytosis Spherocytes Pappenheimer Bodies Sickle Cells Target Cells Tear Drop Cells Ovalocytes Stomatocytes [place]-Dragoon Bodies Echinocytes Acanthocytes (Spur) Rouleaux RBC Agglutinates Schistocytes Sezary Cell Sodium 134 L Potassium 4.3 Chloride 105 Carbon Dioxide 24 Anion Gap 5 BUN 37 H Creatinine 2.37 H Est Cr Clr Drug Dosing 36.0 Est GFR ( Amer) 31.4 Est GFR (Non-Af Amer) 27.1 BUN/Creatinine Ratio 15.6 Glucose 129 H Calcium 10.1 Phosphorus Total Bilirubin 4.5 H AST 41 H ALT 16 Alkaline Phosphatase 84 Total Creatine Kinase Total Protein 5.5 L Albumin 3.0 L Globulin 2.5 Albumin/Globulin Ratio 1.2 Lyme Disease IgG Ab Lyme Disease IgM Ab Blood Parasites ID Diagnostic Findings Microbiology 08/14/22 Unknown Peritoneal Fluid Gram Stain - Final 08/14/22 Unknown Peritoneal Fluid Aerobic and Anaerobic Culture - Preliminary No growth to date. 08/15/22 10:08 Blood Aerobic Blood Culture - Preliminary No growth in Aerobic bottle after 48 hours. 08/15/22 10:08 Blood Anaerobic Blood Culture - Preliminary No growth in Anaerobic bottle after 48 hours. 08/15/22 10:24 Blood Aerobic Blood Culture - Preliminary No growth in Aerobic bottle after 48 hours. 08/15/22 10:24 Blood Anaerobic Blood Culture - Preliminary No growth in Anaerobic bottle after 48 hours. 08/13/22 13:48 Blood Aerobic Blood Culture - Final Enterococcus faecium VRE 08/13/22 13:48 Blood Anaerobic Blood Culture - Final Enterococcus faecium VRE 08/13/22 12:43 Blood Aerobic Blood Culture - Final Enterococcus faecium VRE 08/13/22 12:43 Blood Anaerobic Blood Culture - Final Enterococcus faecium VRE 08/13/22 14:05 Urine,Clean Catch Urine Culture - Final Enterococcus faecium VRE (2) Sepsis Sepsis acute organ dysfunction status: without acute organ dysfunction Sepsis type: sepsis due to unspecified organism Qualified Code(s): A41.9 - Sepsis, unspecified organism
[2022-08-17] MEDS ORDERED: EPOETIN ALFA 40,000 UNITS/ML VIAL SQ STA (16:49)
--- NOTE | 2022-08-17 19:32 | Magnetic Resonance Report ---
MRI OF THE THORACIC SPINE WITHOUT IV CONTRAST CLINICAL HISTORY: Bacteremia. Thoracic back pain. COMPARISON STUDY: CT of the cervical spine dated 05/23/2022. Abdominal CT dated 08/13/2022. TECHNIQUE: MRI of the thoracic spine is performed utilizing various T1 and T2-weighted sequences in t he axial and sagittal planes. IV contrast was not administered for this examination. The examination is compromised by motion artifact. FINDINGS: Vertebral body height and alignment are maintained throughout the thoracic spine. Marrow si gnal intensity is heterogeneous. There is hyperkyphosis. Small anterior osteophytes are seen througho ut. The spinous processes appear intact. No destructive bony lesion or marrow changes is identified. Chronic degenerative endplate change is seen at most of the thoracic levels. Disc desiccation and los s of height is seen throughout the thoracic spine. A tiny posterior disc bulge is noted at T6-T7. The re is no large disc herniation or central canal stenosis. The thoracic spinal cord is normal in morph ology and signal intensity. The conus medullaris terminates at the level of L1. There is no evidence of epidural fluid collection on this unenhanced examination. There is no MRI evidence of high-grade n euroforaminal narrowing throughout the thoracic region. The paraspinous soft tissues are normal as vi sualized. Bilateral pleural effusions are noted. A subcentimeter cyst is incidentally noted in the ri ght kidney. IMPRESSION: 1. No acute bony abnormality is identified. 2. The thoracic cord is normal in morphology and signal intensity. 3. No central canal stenosis is seen throughout the thoracic region. 4. Small pleural effusions. Dictated: 08/17/2022 6:27 PM Transcribed: 08/17/2022 7:01 PM Evans [id number] [email or web address] Electronically signed by: Edward Foreman M.D. 08/17/2022 7:31 PM
[2022-08-17] MEDS: PARoxetine HCL 10 MG TAB PO SCH (19:56)
[2022-08-17] MEDS: DAPTOmycin 850 MG in SYRINGE 0 ML IV SCH (20:01)
[2022-08-18] MEDS: ACETAMINOPHEN 325 MG TAB PO SCH ×3 (02:15→19:18)
[2022-08-18 06:49] LABS: Basophils # (auto) 0.05 K/uL (0-0.2); Eosinophils # (auto) 0.32 K/uL (0-0.50); Eosinophils % (auto) 6.4 %; Hematocrit (blood only) 22.2 % (42.0-52.0); Hemoglobin 7.6 g/dl (14.0-18.0); Immature Granulocytes # (auto) 0.03 K/uL (0.01-0.20); Immature Granulocytes % (auto) 0.6 %; Lymphocytes # (auto) 0.61 K/uL (1.2-3.4); Lymphocytes % (auto) 12.3 %; Mean Corpuscular Hemoglobin 35.5 pg (25.0-34.0); Mean Corpuscular Hgb Conc 34.2 g/dL (32.0-36.0); Mean Corpuscular Volume 103.7 fL (80.0-100.0); Mean Platelet Volume 9.4 fL (9.4-12.4); Monocytes # (auto) 0.66 K/uL (0.11-0.59); Monocytes % (auto) 13.3 %; Neutrophils % (auto) 66.4 %; Platelet Count 41 K/uL (130-400); RDW Coefficient of Variation 23.5 % (11.5-14.5); RDW Standard Deviation 87.6 fL (36.4-46.3); Red Blood Count 2.14 M/uL (4.70-6.10); White Blood Count 4.97 K/ul (4.8-10.8)
[2022-08-18 07:15] LABS: Albumin Level 2.7 gm/dl (3.4-5.0); BUN Creatinine Ratio 16.2 (10-20); Calcium 9.9 mg/dl (8.6-10.3); Creatinine Clr Calc Pharmacy 38.4 ml/min; Est GFR (Non-African American) 29.4 ml/min; Phosphorus 2.1 mg/dl (2.5-4.9); Potassium 4.4 mmol/L (3.5-5.1)
--- NOTE | 2022-08-18 07:16 | Hospitalist Progress Note ---
Date of Service August 18, 2022 Assessment & Plan (1) Sepsis: Plan: Spike is a 67 y/o male with a PMHx of cirrhosis, GAVE, CHF who presents with bacteremia, anemia and acute on chronic kidney disease clinically improving at this time and hemodynamically stable. #Sepsis Lactate 2.2 -> 2.0 with NSS given in the ER. Blood culture showed enterococcus. Bacteruria without urinary symptoms. Paracentesis was negative for WBC or bacteria. Hemodynamically stable. WBC in normal range. * Continue Daptomycin 850 mg q24, treated with Zosyn prior to EGD #Back Pain Likely MSK in nature as patient with tenderness with palpation over the paraspinal muscles. No point tenderness over any of the spinous processes. Will order imaging to r/o malignant fracture. Pain control with lidocaine patch and scheduled tylenol. Will continue to monitor. #Hyperkalemia K: 5.8 --> 5.1 --> 4.4 * No additional Patiromer today. #Anemia Hgb: admission: 8.0 > 6.8 > RBC given> 7.9 > 6.6 > RBC given > 8.1 > 7.5 > 8.6 > 7.6. Likely GAVE bleed. Potential additional dilutional effect. * See GAVE * PM H&H * 2 units of blood so far. #Gastric Antral Vascular Ectasia Multiple blood transfusions as above. Likely GAVE bleed. * GI following. EGD scheduled for today. * Pantoprazole was put to PO and is going to be changed back to IV. * Octreotide 500 m * Albumin #RUQ Abdominal Pain Chronic. Reportedly always has this - suspect from ascites. #Chronic Kidney Disease, stage III, Near baseline range (1.5-2.0), continue to monitor. 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 Bacteruria on UA. See Sepsis #Urethral stricture No urine retention on CT. Monitor for worsening urine output. Urethral dilation performed June 12. #Spinal Stenosis Suspect cause of his back pain #Bacteremia See Sepsis VTE Prophylaxis - deferred due to repeated need for blood transfusions and GAVE Diet - low Na Disposition - med/tele Code status: DNR/DNI (2) Urinary tract infection: (3) Anemia: (4) Urethral stricture: (5) 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: (6) Spinal stenosis: (7) Abdominal pain: (8) CKD (chronic kidney disease), stage III: (9) GAVE (gastric antral vascular ectasia): (10) Bacteremia: Plan: Blood cultures postitive for enterococcus. Admission and Anticipated Discharge Date Admission Date: August 13, 2022 Supervising Physician Co-Signing Physician Notes I personally examined the patient and verified all [place] points of history and exam, discussed case, and agree with decision making with Dr Frausto MRI negative, and back pain seems to not be quite as bad. Vitals noted, in general resting comfortably but then appears in pain whenever having rollover. HEENT normocephalic atraumatic mucous membranes moist. Breathing unlabored no accessory muscle use. Neuro shows cranial nerves II through XII to be grossly intact gross motor and sensory intact. Skin with diffuse bruising, he has some scleral icterus. Sepsisblood cultures showing bacteremiadespite lack of urinary symptoms, his urine and blood matchprobably UTI leading to sepsis/bacteremiaecho reassuring, follow-up blood cultures negative thus farcontinue daptomycinprobably 14 days, but await ID input for full durationdoing well in this regard AKIon CKDsuspect from dehydration/prerenal/septic physiologycannot rule out an element of ATN at this time, showing ongoing improvement Anemiaacute on chronicand also "acute on acute"with probably delusional initially, and now upper GI bleeding from portal hypertensive gastropathytransfused 2 units of packed red cells thus far, appears to be stabilizing, input from GI appreciatedhemoglobin still a little bit lower than before, but suspect this is more baseline/"lab wobble" and ongoing blood lossbut obviously since he just bled a few days ago, close vigilance DVT prophylaxispharmacologic contraindicated due to GAVE syndrome and portal hypertensive gastropathy, SCDs have been ordered Otherwise as above Subjective No complaints this morning. No CP or SOB. No blood in stool. Hemoglobin did drop. Patient was given a unit earlier this hospital stay. Physical Exam Physical Exam: Gen: chronically ill appearing male in NAD HEENT: AT NC Resp: CTAB no increased work of breathing no wheezing CV: RRR no m/r/g clinically well perfused Abd: soft, non-tender non-distended Psych: appropriate mood and affect Neuro: alert and oriented MSK: no gross deformities Results & Data Results & Data Vital Signs (Past 12 Hours) Vital Signs Temp Pulse Pulse Resp BP Pulse Ox O2 Del Method 08/18/22 03:47 36.5 C 69 18 93/52 L 97 Room Air 08/17/22 23:36 36.4 C L 71 18 104/53 L 97 Room Air 08/17/22 23:19 66 08/17/22 19:26 36.6 C 67 18 97/61 L 98 Room Air Laboratory Results 08/18/22 06:03 08/18/22 06:03 Resident Activity Tracking Resident Involvement: Resident Care Provided Care Provided: Adult Hospital Medicine (1) Sepsis Sepsis acute organ dysfunction status: without acute organ dysfunction Sepsis type: sepsis due to unspecified organism Qualified Code(s): A41.9 - Sepsis, unspecified organism (2) Urinary tract infection Hematuria presence: with hematuria Urinary tract infection type: site u nspecified Qualified Code(s): N39.0 - Urinary tract infection, site not specified; R31.9 - Hematuria, unspecified
[2022-08-18 07:25] LABS: Anisocytosis Present; Polychromasia 1+
[2022-08-18] MEDS: SUCRALFATE 1 GM/10 ML UDC PO SCH ×4 (08:08→19:29)
[2022-08-18] MEDS: PANTOprazole 40 MG TAB PO SCH ×2 (08:09→19:30)
[2022-08-18] MEDS: CHOLECALCIFEROL 1,000 UNITS 25 MCG TAB PO SCH (08:10)
[2022-08-18] MEDS: rifAXIMin 550 MG TABLET PO SCH ×2 (08:10→19:29)
[2022-08-18] MEDS: MIDODRINE HCL 2.5 MG TAB PO SCH ×3 (08:10→16:57)
[2022-08-18] MEDS: LIDOCAINE 5% 1 PATCH TD SCH (08:11)
[2022-08-18] MEDS: VITAMIN B COMPLEX TAB PO SCH (08:11)
[2022-08-18] MEDS: LACTULOSE SYRUP 20 GM/30 ML UDC PO SCH (08:12)
[2022-08-18] MEDS: OCTREOTIDE ACETATE 500 MCG in DEXTROSE 5% 100 ML IV SCH ×2 (09:24→20:13)
--- NOTE | 2022-08-18 09:59 | Gastroenterology Progress Note ---
Date of Service August 18, 2022 Assessment & Plan (1) Upper GI bleeding: Plan: Seems to be doing okay. Hgb could still be equilabration/fluids. Will need to follow for further signs of bleeding. Admission and Anticipated Discharge Date Admission Date: August 13, 2022 Subjective He tells me he is doing well. He tells me he is not having diarrhea and his stools are "dark brown". Nurses note says diarrhea at 6am but no mention of color. Hgb down from 8.6-7.6. Physical Exam Physical Exam: Icteric but looks well otherwise Results & Data Vital Signs (Past 12 Hours) Vital Signs Temp Pulse Pulse Resp BP Pulse Ox O2 Del Method 08/18/22 07:27 36.7 C 80 20 98/59 L 97 Room Air 08/18/22 03:47 36.5 C 69 18 93/52 L 97 Room Air 08/17/22 23:36 36.4 C L 71 18 104/53 L 97 Room Air 08/17/22 23:19 66 Laboratory Results 08/18/22 08/18/22 08/17/22 Range/Units 06:03 06:03 08:38 WBC 4.97 (4.8-10.8) K/ul RBC 2.14 L (4.70-6.10) M/uL Hgb 7.6 L (14.0-18.0) g/dl Hct 22.2 L (42.0-52.0) % MCV 103.7 H (80.0-100.0) fL MCH 35.5 H (25.0-34.0) pg MCHC 34.2 (32.0-36.0) g/dL RDW Std Deviation 87.6 H (36.4-46.3) fL RDW Coeff of Miguel 23.5 H (11.5-14.5) % Plt Count 41 L (130-400) K/uL MPV 9.4 (9.4-12.4) fL Immature Gran % (Auto) 0.6 % Neut % (Auto) 66.4 % Lymph % (Auto) 12.3 % [place] % (Auto) 13.3 % Eos % (Auto) 6.4 % Baso % (Auto) 1.0 % Neut # (Auto) 3.30 (1.40-6.50) K/uL Lymph # (Auto) 0.61 L (1.2-3.4) K/uL [place] # (Auto) 0.66 H (0.11-0.59) K/uL Eos # (Auto) 0.32 (0-0.50) K/uL Baso # (Auto) 0.05 (0-0.2) K/uL Immature Gran # (Auto) 0.03 (0.01-0.20) K/uL Polychromasia 1+ Anisocytosis Present Present Echinocytes 1+ Acanthocytes (Spur) 1+ Sodium 136 (136-145) mmol/L Potassium 4.4 (3.5-5.1) mmol/L Chloride 109 H (98-107) mmol/L Carbon Dioxide 24 (21-32) mmol/L Anion Gap 3 (3-11) BUN 36 H (6-23) mg/dl Creatinine 2.22 H (0.6-1.4) mg/dl Est Cr Clr Drug Dosing 38.4 ml/min Est GFR ( Amer) 34.0 ml/min Est GFR (Non-Af Amer) 29.4 ml/min BUN/Creatinine Ratio 16.2 (10-20) Glucose 111 H (70-99(Fasting)) mg/dl Calcium 9.9 (8.6-10.3) mg/dl Phosphorus 2.1 L (2.5-4.9) mg/dl Albumin 2.7 L (3.4-5.0) gm/dl
[2022-08-18 15:29] LABS: Hematocrit (blood only) 23.2 % (42.0-52.0); Hemoglobin 7.8 g/dl (14.0-18.0); Mean Corpuscular Hgb Conc 33.6 g/dL (32.0-36.0); Mean Platelet Volume 9.6 fL (9.4-12.4); Platelet Count 47 K/uL (130-400); RDW Coefficient of Variation 23.4 % (11.5-14.5); RDW Standard Deviation 88.5 fL (36.4-46.3); Red Blood Count 2.23 M/uL (4.70-6.10); White Blood Count 5.45 K/ul (4.8-10.8)
--- NOTE | 2022-08-18 18:32 | Billing Data ---
Date of Service August 18, 2022 Coding Level of Care Code 39706 SUB INP/OBS CARE MIN
[2022-08-18] MEDS: DAPTOmycin 850 MG in SYRINGE 0 ML IV SCH (19:29)
[2022-08-18] MEDS: PARoxetine HCL 10 MG TAB PO SCH (19:30)
[2022-08-19] MEDS: ACETAMINOPHEN 325 MG TAB PO SCH ×3 (02:44→17:17)
[2022-08-19] MEDS: OCTREOTIDE ACETATE 500 MCG in DEXTROSE 5% 100 ML IV SCH ×2 (05:50→15:27)
[2022-08-19 07:38] LABS: Albumin Level 2.7 gm/dl (3.4-5.0); BUN Creatinine Ratio 14.7 (10-20); Bilirubin,Total 3.8 mg/dl (0.2-1.0); Calcium 9.7 mg/dl (8.6-10.3); Creatinine Clr Calc Pharmacy 45.1 ml/min; Est GFR (African American) 41.1 ml/min; Est GFR (Non-African American) 35.4 ml/min; Globulin 2.6 gm/dl (2.5-4.0); Magnesium 1.5 mg/dl (1.7-2.4); Phosphorus 1.9 mg/dl (2.5-4.9); Potassium 4.7 mmol/L (3.5-5.1); Total Protein 5.3 gm/dl (6.0-8.3)
[2022-08-19] MEDS: MIDODRINE HCL 2.5 MG TAB PO SCH ×3 (07:38→16:30)
[2022-08-19] MEDS: SUCRALFATE 1 GM/10 ML UDC PO SCH ×4 (07:38→19:57)
--- NOTE | 2022-08-19 07:53 | Hospitalist Progress Note ---
Date of Service August 19, 2022 Assessment & Plan (1) Sepsis: Plan: Spike is a 67 y/o male with a PMHx of cirrhosis, GAVE, CHF who presents with bacteremia, anemia and acute on chronic kidney disease clinically improving at this time and hemodynamically stable. #Sepsis Lactate 2.2 -> 2.0 with NSS given in the ER. Blood culture showed enterococcus. Bacteruria without urinary symptoms. Paracentesis was negative for WBC or bacteria. Hemodynamically stable. WBC in normal range. * Continue Daptomycin 850 mg q24, treated with Zosyn prior to EGD #Back Pain Likely MSK in nature as patient with tenderness with palpation over the paraspinal muscles. No point tenderness over any of the spinous processes. Will order imaging to r/o malignant fracture. Pain control with lidocaine patch and scheduled tylenol. Will continue to monitor. #Hyperkalemia K: 5.8 --> 5.1 --> 4.4 --> 4.7 * No additional Patiromer today. #Anemia Hgb: admission: 8.0 > 6.8 > RBC given> 7.9 > 6.6 > RBC given > 8.1 > 7.5 > 8.6 > 7.6. Likely GAVE bleed. Potential additional dilutional effect. * See GAVE * PM H&H * 2 units of blood so far. #Gastric Antral Vascular Ectasia Multiple blood transfusions as above. Likely GAVE bleed. * GI following. EGD scheduled for today. * Pantoprazole was put to PO and is going to be changed back to IV. * Octreotide 500 m * Albumin #RUQ Abdominal Pain Chronic. Reportedly always has this - suspect from ascites. #Chronic Kidney Disease, stage III, Near baseline range (1.5-2.0), continue to monitor. 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 Bacteruria on UA. See Sepsis #Urethral stricture No urine retention on CT. Monitor for worsening urine output. Urethral dilation performed June 12. #Spinal Stenosis Suspect cause of his back pain #Bacteremia See Sepsis VTE Prophylaxis - deferred due to repeated need for blood transfusions and GAVE Diet - low Na Disposition - med/tele Code status: DNR/DNI (2) Urinary tract infection: (3) Anemia: (4) Urethral stricture: (5) 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: (6) Spinal stenosis: (7) Abdominal pain: (8) CKD (chronic kidney disease), stage III: (9) GAVE (gastric antral vascular ectasia): (10) Bacteremia: Plan: Blood cultures postitive for enterococcus. Admission and Anticipated Discharge Date Admission Date: August 13, 2022 Supervising Physician Co-Signing Physician Notes I personally examined the patient and verified all [place] points of history and exam, discussed case, and agree with decision making with Dr Frausto sleeping on first two attempts to see him today; third time on the phone. no new problems noted, doing well per discussion w resident physician. Vitals noted, in general resting comfortably but then appears in pain whenever having rollover. HEENT normocephalic atraumatic mucous membranes moist. Breathing unlabored no accessory muscle use. Neuro shows cranial nerves II through XII to be grossly intact gross motor and sensory intact. Skin with diffuse bruising, he has some scleral icterus. Sepsisblood cultures showing bacteremiadespite lack of urinary symptoms, his urine and blood matchprobably UTI leading to sepsis/bacteremiaecho reassuring, follow-up blood cultures negative thus farcontinue daptomycinprobably 14 days from negative blood cultures per ID recommendations AKIon CKDsuspect from dehydration/prerenal/septic physiologycannot rule out an element of ATN at this time, showing ongoing improvement Anemiaacute on chronicand also "acute on acute"with probably delusional init ially, and now upper GI bleeding from portal hypertensive gastropathytransfused 2 units of packed red cells thus far, appears to be stabilizing, input from GI appreciatedhemoglobin still a little bit lower than before, but suspect this is more baseline/"lab wobble" and ongoing blood lossbut obviously since he just bled a few days ago, close vigilance - but overall stable DVT prophylaxispharmacologic contraindicated due to GAVE syndrome and portal hypertensive gastropathy, SCDs have been ordered Otherwise as above Subjective No complaints this morning. No CP or SOB. Awaiting placement. Physical Exam Physical Exam: Gen: chronically ill appearing male in NAD HEENT: AT NC Resp: CTAB no increased work of breathing no wheezing CV: RRR no m/r/g clinically well perfused Abd: soft, non-tender non-distended Psych: appropriate mood and affect Neuro: alert and oriented MSK: no gross deformities Results & Data Results & Data Vital Signs (Past 12 Hours) Vital Signs Temp Pulse Pulse Resp BP BP Pulse Ox 08/19/22 07:23 36.6 C 67 19 92/54 L 98 08/19/22 03:51 36.9 C 69 18 100/61 98 08/19/22 00:02 81 08/18/22 22:50 36.9 C 79 18 104/58 L 97 08/18/22 19:56 37.0 C 70 20 119/76 97 O2 Del Method 08/19/22 07:23 Room Air 08/19/22 03:51 Room Air 08/19/22 00:02 08/18/22 22:50 Room Air 08/18/22 19:56 Room Air Laboratory Results 08/19/22 06:12 08/19/22 06:12 Resident Activity Tracking Resident Involvement: Resident Care Provided Care Provided: Adult Hospital Medicine (1) Sepsis Sepsis acute organ dysfunction status: without acute organ dysfunction Sepsis type: sepsis due to unspecified organism Qualified Code(s): A41.9 - Sepsis, unspecified organism (2) Urinary tract infection Hematuria presence: with hematuria Urinary tract infection type: site unspecified Qualified Code(s): N39.0 - Urinary tract infection, site not specified; R31.9 - Hematuria, unspecified
[2022-08-19 07:56] LABS: Hematocrit (blood only) 22.6 % (42.0-52.0); Hemoglobin 7.7 g/dl (14.0-18.0); Mean Corpuscular Hemoglobin 34.8 pg (25.0-34.0); Mean Corpuscular Hgb Conc 34.1 g/dL (32.0-36.0); Mean Corpuscular Volume 102.3 fL (80.0-100.0); Mean Platelet Volume 9.9 fL (9.4-12.4); Platelet Count 51 K/uL (130-400); RDW Coefficient of Variation 22.7 % (11.5-14.5); RDW Standard Deviation 83.9 fL (36.4-46.3); Red Blood Count 2.21 M/uL (4.70-6.10); White Blood Count 5.11 K/ul (4.8-10.8)
[2022-08-19] MEDS: LIDOCAINE 5% 1 PATCH TD SCH (08:36)
[2022-08-19] MEDS: rifAXIMin 550 MG TABLET PO SCH ×2 (08:36→19:57)
[2022-08-19] MEDS: CHOLECALCIFEROL 1,000 UNITS 25 MCG TAB PO SCH (08:36)
[2022-08-19] MEDS: VITAMIN B COMPLEX TAB PO SCH (08:37)
[2022-08-19] MEDS: PANTOprazole 40 MG TAB PO SCH ×2 (08:37→19:57)
[2022-08-19] MEDS: LACTULOSE SYRUP 20 GM/30 ML UDC PO SCH (08:38)
[2022-08-19] MEDS: MAGNESIUM SULFATE / D5W 1 GM/100 ML BAG IV SCH ×2 (08:51→10:58)
--- NOTE | 2022-08-19 17:48 | Billing Data ---
Date of Service August 19, 2022 Coding Level of Care Code 66965 SUB INP/OBS CARE
[2022-08-19] MEDS: DAPTOmycin 850 MG in SYRINGE 0 ML IV SCH (19:56)
[2022-08-19] MEDS: PARoxetine HCL 10 MG TAB PO SCH (19:58)
[2022-08-20] MEDS: OCTREOTIDE ACETATE 500 MCG in DEXTROSE 5% 100 ML IV SCH ×2 (03:21→11:41)
[2022-08-20] MEDS: ACETAMINOPHEN 325 MG TAB PO SCH ×3 (03:21→18:32)
[2022-08-20 06:46] LABS: Hemoglobin 7.4 g/dl (14.0-18.0); Mean Corpuscular Hemoglobin 34.7 pg (25.0-34.0); Mean Corpuscular Hgb Conc 33.6 g/dL (32.0-36.0); Mean Corpuscular Volume 103.3 fL (80.0-100.0); Platelet Count 53 K/uL (130-400); RDW Coefficient of Variation 22.6 % (11.5-14.5); RDW Standard Deviation 84.3 fL (36.4-46.3); Red Blood Count 2.13 M/uL (4.70-6.10); White Blood Count 4.21 K/ul (4.8-10.8)
[2022-08-20 06:54] LABS: BUN Creatinine Ratio 12.6 (10-20); Calcium 9.9 mg/dl (8.6-10.3); Est GFR (African American) 38.8 ml/min; Est GFR (Non-African American) 33.5 ml/min; Potassium 5.3 mmol/L (3.5-5.1)
[2022-08-20] MEDS: MIDODRINE HCL 2.5 MG TAB PO SCH ×3 (07:43→16:35)
[2022-08-20] MEDS: SUCRALFATE 1 GM/10 ML UDC PO SCH ×4 (07:43→20:03)
[2022-08-20] MEDS: LACTULOSE SYRUP 20 GM/30 ML UDC PO SCH (07:45)
[2022-08-20] MEDS: CHOLECALCIFEROL 1,000 UNITS 25 MCG TAB PO SCH (07:45)
[2022-08-20] MEDS: PANTOprazole 40 MG TAB PO SCH ×2 (07:46→20:02)
[2022-08-20] MEDS: rifAXIMin 550 MG TABLET PO SCH ×2 (07:46→20:03)
[2022-08-20] MEDS: LIDOCAINE 5% 1 PATCH TD SCH (07:47)
[2022-08-20] MEDS: VITAMIN B COMPLEX TAB PO SCH (07:47)
--- NOTE | 2022-08-20 09:11 | Gastroenterology Progress Note ---
Date of Service August 20, 2022 Assessment & Plan (1) Bacteremia: Plan: 67 year old male w/ SERRANO cirrhosis (MELD 24), complicated by varices, phg, GAVE, CKD, chronic anemia admitted with suspected urosepsis (blood and urine cx growing GPC; + VRE and E. faecium) dark stools s/p EGD/Sigmoidscopy 08/16 and 08/17 w/ grade 1 varices, GAVE, inflammatory polyp treated w/ APC and clipped - Low NA diet as tolerated - Protonix 40mg PO BID - Carafate 1g QID x 10 days - PRBC transfusion for goal Hgb >7. Monitor blood ct closely - Electrolyte correction per primary team - Continue Lactulose (titrate for goal bm 3-5 a day) - Continue Xifaxan 550mg BID - Midodrine 15mg TID Will sign off. Actively following with Dr. Espitia and undergoing transplant evaluation. Will need hepatolgoy follow up. Thank you for allowing us to participate in the care of this patient. Please call with any acute changes, questions or concerns. Please see addendum below with additional recommendation from my supervising physician. Admission and Anticipated Discharge Date Admission Date: August 13, 2022 Supervising Physician Co-Signing Physician Notes I saw and evaluated the patient. We are following the patient after presenting for hematochezia, this is thought to be related to changes in the anorectal there appears to be no recurrent bleeding over the weekend and no further drop in his hemoglobin or hematocrit. Would recommend the patient have the octreotide discontinued, he can continue midodrine as previously prescribed by my partner and follow-up with our office again in [address] Espitia. Please call with any additional questions or concern, GI to sign off. Subjective Pt was seen and evaluated, chart reviewed. No concerns this AM, just finished breakfast. Feeling okay. No abd pain. He does report intermittent nausea post- prandially. No vomiting. No GERD. No dysphagia. Moving bowels well. Reports brown stools now. No black or bloody BMs. Review of Systems Review of Systems: All systems reviewed & are unremarkable except as noted in HPI & below Physical Exam Constitutional: WD/WN, vitals as above Respiratory: normal respiratory effort; no respiratory distress Cardiovascular: Rate/Rhythm: regular rate Gastrointestinal (Abdomen): normal bowel sounds, soft, nontender, no hepatosplenomegaly Skin: no rashes, warm and dry Results & Data Vital Signs (Past 12 Hours) Vital Signs Temp Pulse Pulse Resp BP Pulse Ox O2 Del Method 08/20/22 08:00 Room Air 08/20/22 07:14 36.6 C 77 18 103/63 97 Room Air 08/20/22 03:29 36.5 C 74 18 107/68 99 Room Air 08/19/22 23:38 67 08/19/22 23:25 36.5 C 72 18 103/64 97 Room Air Laboratory Results 08/20/22 08/20/22 Range/Units 06:06 06:06 WBC 4.21 L (4.8-10.8) K/ul RBC 2.13 L (4.70-6.10) M/uL Hgb 7.4 L (14.0-18.0) g/dl Hct 22.0 L (42.0-52.0) % MCV 103.3 H (80.0-100.0) fL MCH 34.7 H (25.0-34.0) pg MCHC 33.6 (32.0-36.0) g/dL RDW Std Deviation 84.3 H (36.4-46.3) fL RDW Coeff of Miguel 22.6 H (11.5-14.5) % Plt Count 53 L (130-400) K/uL MPV 9.0 L (9.4-12.4) fL Sodium 135 L (136-145) mmol/L Potassium 5.3 H (3.5-5.1) mmol/L Chloride 107 (98-107) mmol/L Carbon Dioxide 26 (21-32) mmol/L Anion Gap 2 L (3-11) BUN 25 H (6-23) mg/dl Creatinine 1.99 H (0.6-1.4) mg/dl Est Cr Clr Drug Dosing 43.0 ml/min Est GFR ( Amer) 38.8 ml/min Est GFR (Non-Af Amer) 33.5 ml/min BUN/Creatinine Ratio 12.6 (10-20) Glucose 134 H (70-99(Fasting)) mg/dl Calcium 9.9 (8.6-10.3) mg/dl
--- NOTE | 2022-08-20 11:44 | Infectious Disease Progress Nt ---
Date of Service August 20, 2022 Assessment & Plan (1) VRE bacteremia: (2) Sepsis: Plan 67 yo male with pmh of CKD, SERRANO cirrhosis w GAVE, portal hypertensive gastropathy,spinal stenosis, chronic anemia who presented on 08/13 with weakness, dizziness, abdominal pain, nausea, increased back pain and body aches, admitted with sepsis, VRE bacteremia and UTI. On presentation, pt was febrile to 38.1 with initial labs showing WBC 8.17, Hb 8, plt 70, Cr 2.1. UA > 30 WBCs. COVID-19/Flu/RSV negative. RVP negative. CXR without acute process. CTAP showed no acute diverticulitis, + hepatic cirrhosis with perisplenic varices, abd and pelvic ascites. Pt was started on empiric dapto and pip-tazo for sepsis of unclear source, UTI vs SBP. Repeat labs on 08/14 showed WBC 11.59, Hb drop to 6.8, downtrending plts. GI was consulted. Diagnostic paracentesis on 08/14 without signs of SBP. Pt was given blood transfusion. Underwent EGD/colonoscopy on 08/16 due to report of blood in stools, which showed GAVE oozing but no therapy done given food in stomach, and + portal colopathy. Repeat EGD on 08/17 showed some oozing spots s/p APC and clip. Admission blood cultures grew VRE in 4/4 bottles. UCx also grew VRE. TTE on 08/15 showed no vegetation. An MRI thoracic spine was performed on 08/17 to evaluate for osteomyelitis/discitis/abscess due to back pain and bacteremia, but showed no acute bony abnormalities, normal thoracic cord. Pt continues on daptomycin alone currently. The etiology of VRE bacteremia is unclearcould be GI source in the setting of GIB, vs urinary source given UCx +VRE (although bladder could have been seeded by bacteremia, rather than the other way around). Paracentesis without evidence of SBP. Pt denies urinary symptoms but has suprapubic tenderness on exam. Has back pain, but MRI thoracic spine did not show osteomyelitis/discitis/epidural abscess. Pt denies having hardware. TTE without vegetations. Reassuringly, repeat BCx from 08/15 are NGTD. Pt clinically improving and last febrile on 08/14. MICRO 08/17 Ehrlichia PCR: pending 08/17 Anaplasma PCR: pending 08/17 Babesia PCR: pending 08/17 Lyme screen: negative 08/15 BCx x2: NGTD 08/14 Peritoneal fluid: NG. GS--neg 08/13 UCx: >100K VRE (S dapto, nitrofurantoin) 08/13 BCx x2: VRE in 4/ bottles (S dapto) ABX zosyn 08/13-08/16 Dapto 08/13-ongoing Problems: 1.VRE bacteremia 2.Sepsis on admission 3.VRE UTI 4.COLLIN on CKD 5.Anemia /Thrombocytopenia 6. Acute on chronic back pain: MRI thoracic spine negative for osteom yelitis/discitis/epidural abscess Recommendations: -Continue Daptomycin 850 mg IV daily (9-10 mg/kg dosed by ABW given BMI>30) for VRE bacteremia. Check at least weekly CK to monitor for toxicity. Last CK 14 on 08/19. -Plan to treat VRE bacteremia for 14 days total from sterile cultures (08/15/). Will need PICC/midline. Check weekly CBC with diff, CMP, CK to monitor for toxicity. -Follow up Anaplasma, Ehrlichia, Babesia PCR in setting of thrombocytopenia, anemia, slight elev of lft although likely secondary to Liver dz Will sign off. Please page [facility] with further questions. Admission and Anticipated Discharge Date Admission Date: August 13, 2022 Subjective This patient recommendation is based on a telemedicine consult request which was completed asynchronously through chart review and information provided by the primary physician. The patient was not seen or examined today. The evaluation is consultative in nature and all patient care and treatment decisions can either be accepted or rejected by the patient's primary hospital-based treating physician using their own independent medical judgment for their patient. Time Spent Reviewing Chart: 31+ minutes 08/15 BCx NGTD Continues on dapto MRI thoracic spine without evidence of infection Afebrile No concerns for recurrent bleeding over the weekend Review of System pt not seen Physical Exam Physical Exam: pt not seen Results & Data Vital Signs (Past 12 Hours) Vital Signs Temp Pulse Resp BP Pulse Ox O2 Del Method 08/20/22 11:00 36.5 C 69 19 147/61 H 99 Room Air 08/20/22 08:00 Room Air 06/26/23 07:14 36.6 C 77 18 103/63 97 Room Air 08/20/22 03:29 36.5 C 74 18 107/68 99 Room Air Laboratory Results Short CBC 08/20/22 Range/Units 06:06 WBC 4.21 L (4.8-10.8) K/ul Hgb 7.4 L (14.0-18.0) g/dl Hct 22.0 L (42.0-52.0) % Plt Count 53 L (130-400) K/uL BMP 08/20/22 06:06 Sodium 135 L Potassium 5.3 H Chloride 107 Carbon Dioxide 26 BUN 25 H Creatinine 1.99 H Glucose 134 H Calcium 9.9 Diagnostic Findings Thoracic Spine MRI 08/17/22 15:00 MRI OF THE THORACIC SPINE WITHOUT IV CONTRAST CLINICAL HISTORY: Bacteremia. Thoracic back pain. COMPARISON STUDY: CT of the cervical spine dated 05/23/2022. Abdominal CT dated 08/13/2022. TECHNIQUE: MRI of the thoracic spine is performed utilizing various T1 and T2- weighted sequences in the axial and sagittal planes. IV contrast was not administered for this examination. The examination is compromised by motion artifact. FINDINGS: Vertebral body height and alignment are maintained throughout the thoracic spine. Marrow signal intensity is heterogeneous. There is hyperkyphosis. Small anterior osteophytes are seen throughout. The spinous processes appear intact. No destructive bony lesion or marrow changes is identified. Chronic degenerative endplate change is seen at most of the thoracic levels. Disc desiccation and loss of height is seen throughout the thoracic spine. A tiny posterior disc bulge is noted at T6-T7. There is no large disc herniation or central canal stenosis. The thoracic spinal cord is normal in morphology and signal intensity. The conus medullaris terminates at the level of L1. There is no evidence of epidural fluid collection on this unenhanced examination. There is no MRI evidence of high-grade neuroforaminal narrowing throughout the thoracic region. The paraspinous soft tissues are normal as visualized. Bilateral pleural effusions are noted. A subcentimeter cyst is incidentally noted in the right kidney. IMPRESSION: 1. No acute bony abnormality is identified. 2. The thoracic cord is normal in morphology and signal intensity. 3. No central canal stenosis is seen throughout the thoracic region. 4. Small pleural effusions. Dictated: 08/17/2022 6:27 PM Transcribed: 08/17/2022 7:01 PM Evans [id number] [email or web address] Electronically signed by: Edward Foreman M.D. 08/17/2022 7:31 PM Medications Administered Current Inpatient Medications Acetaminophen (Acetaminophen 325 Mg Tab) 650 mg PO Q8H [facility] Stop: 09/16/22 09:44 Last Admin: 08/20/22 11:45 Dose: 650 mg Daptomycin 850 mg/ Syringe 17 mls @ 8.5 mls/min IV Q24H [facility]; Protocol Stop: 08/28/22 19:59 Last Admin: 08/19/22 19:56 Dose: 8.5 mls/min Octreotide Acetate 500 mcg/ (Dextrose) 100.5 mls @ 10.05 mls/hr IV .Q10H [facility] Stop: 09/14/22 11:59 Last Admin: 08/20/22 11:41 Dose: 50.25 mcg/hr, 10.1 mls/hr Lactulose (Lactulose Syrup 20 Gm/30 Ml Udc) 20 gm PO DAILY [facility] Stop: 09/13/22 08:59 Last Admin: 08/20/22 07:45 Dose: Not Given Lidocaine (Lidocaine 5% 1 Patch) 1 patch TD QAM [facility] Stop: 09/17/22 08:59 Last Admin: 08/20/22 07:47 Dose: 1 patch Midodrine (Midodrine Hcl 2.5 Mg Tab) 15 mg PO TIDM [facility] Stop: 09/14/22 11:59 Last Admin: 08/20/22 11:41 Dose: 15 mg Miscellaneous (Remove Lidoderm Patch) 1 each N/A DAILY@2100 [facility] Stop: 09/17/22 20:59 Last Admin: 08/19/22 19:58 Dose: 1 each Ondansetron HCl (Ondansetron 4 Mg Od Tab) 4 mg PO Q8H PRN PRN Reason: Nausea And Vomiting Stop: 09/12/22 18:59 Last Admin: 08/17/22 08:30 Dose: 4 mg Pantoprazole Sodium (Pantoprazole 40 Mg Tab) 40 mg PO BID [facility] Stop: 09/16/22 20:59 Last Admin: 08/20/22 07:46 Dose: 40 mg Paroxetine HCl (Paroxetine Hcl 10 Mg Tab) 10 mg PO QPM [facility] Stop: 09/12/22 20:59 Last Admin: 08/19/22 19:58 Dose: 10 mg Rifaximin (Rifaximin 550 Mg Tablet) 550 mg PO BID [facility] Stop: 09/12/22 20:59 Last Admin: 08/20/22 07:46 Dose: 550 mg Sucralfate (Sucralfate 1 Gm/10 Ml Udc) 1 gm PO ACHS [facility] Stop: 09/12/22 20:59 Last Admin: 08/20/22 11:42 Dose: 1 gm Vitamin B Complex (Vitamin B Complex Tab) 1 tab PO DAILY [facility] Stop: 09/13/22 08:59 Last Admin: 08/20/22 07:47 Dose: 1 tab Vitamin D (Cholecalciferol 1,000 Units 25 Mcg Tab) 2,000 units PO QAM [facility] Stop: 09/13/22 08:59 Last Admin: 08/20/22 07:45 Dose: 2,000 units (2) Sepsis Sepsis acute organ dysfunction status: without acute organ dysfunction Sepsis type: sepsis due to unspecified organism Qualified Code(s): A41.9 - Sepsis, unspecified organism
--- NOTE | 2022-08-20 11:47 | Hospitalist Progress Note ---
Date of Service August 20, 2022 Assessment & Plan (1) Sepsis: Plan: Spike is a 67 y/o male with a PMHx of cirrhosis, GAVE, CHF who presents with bacteremia, anemia and acute on chronic kidney disease clinically improving at this time and hemodynamically stable. #Sepsis Lactate 2.2 -> 2.0 with NSS given in the ER. Blood and urine cx showed enterococcus VRE. Hemodynamically stable. WBC in normal range. * Continue Daptomycin 850 mg q24, treated with Zosyn prior to EGD * Discussed with ID, will continue IV Dapto until August 29 -Per case management, patient will not have a bed a [facility] until later this week and [facility] will not provide Dapto. Inquired with ID regarding switching to a different antibiotic but ID recommends continuing with the course of Daptomycin. Continue waiting for available bed. -Attempted to call patient's son to provide this update regarding awaiting placement, no answer. #Anemia Hgb: admission: 8.0 > 6.8 > RBC given> 7.9 > 6.6 > RBC given > 8.1 > 7.5 > 8.6 > 7.6 > 7.4 Likely GAVE bleed. Potential additional dilutional effect. * See GAVE * PM H&H * 2 units of blood so far. #Gastric Antral Vascular Ectasia Multiple blood transfusions as above. Likely GAVE bleed. * EGD completed, no active bleed. Clip placed for oozing polyp. * Pantoprazole PO BID * Per GI: Octreotide discontinued, continue home Midrodine * Albumin #Hyperkalemia K: 5.4 * Will monitor with daily BMP, consider adding additional Patiromer #Chronic RUQ Abdominal Pain Reportedly always has this - suspect from ascites. #Chronic Kidney Disease, stage III, Near baseline range (1.5-2.0), continue to monitor. #Liver Cirrhosis secondary to SERRANO, chronic stable Pt is questioning if he is on the transplant list, Highest MELD: 31, 52.6% 90 day survival * Hold spironolactone due to hypotension and tachycardia in setting of suspected infection * Continue midodrine #Urethral stricture No urine retention on CT. Monitor for worsening urine output. Urethral dilation performed June 12. #Back Pain Likely MSK in nature as patient with tenderness with palpation over the paraspinal muscles. No point tenderness over any of the spinous processes. -Had a fall at home about 3weeks ago, imaging ordered. -MR Thoracic spine without acute abnormalities/fractures. -Pain control with lidocaine patch and scheduled tylenol. #Spinal Stenosis Suspect cause of his back pain VTE Prophylaxis - deferred due to repeated need for blood transfusions and GAVE. SCDs ordered. Diet - low Na Disposition - med/tele Code status: DNR/DNI (2) Urinary tract infection: (3) Anemia: (4) Urethral stricture: (5) 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: (6) Spinal stenosis: (7) Abdominal pain: (8) CKD (chronic kidney disease), stage III: (9) GAVE (gastric antral vascular ectasia): (10) Bacteremia: Admission and Anticipated Discharge Date Admission Date: August 13, 2022 Supervising Physician Co-Signing Physician Notes Resident Physician Supervision Note: I independently interviewed and examined the patient and verified the [place] history and physical, reviewed labs and image studies and agree with resident findings and care plan. Subjective Patient seen and examined at bedside. No overnight events. Denies additional dark/bloody bowel movements. Still has some dizziness/weakness but feels it is slowly improving. Denies shortness of breath at rest or chest pain. Feels back pain has been improving. Still does not have much of an appetite. Review of Systems Review of Systems: As per above Physical Exam Constitutional: cooperative and comfortable Eyes: + anicteric sclerae ENMT: External ears and nose normal. Moist mucous membranes. Respiratory: normal respiratory effort, lungs clear to auscultation Cardiovascular: Rate/Rhythm: regular rate and regular rhythm +2 bilateral lower extremity edema Skin: no rashes, warm and dry Psychiatric: A+Ox3, euthymic affect Results & Data Results & Data Vital Signs (Past 12 Hours) Vital Signs Temp Pulse Resp BP Pulse Ox O2 Del Method 08/20/22 11:00 36.5 C 69 19 147/61 H 99 Room Air 08/20/22 08:00 Room Air 08/20/22 07:14 36.6 C 77 18 103/63 97 Room Air 08/20/22 03:29 36.5 C 74 18 107/68 99 Room Air Resident Activity Tracking Resident Involvement: Resident Care Provided Care Provided: Adult Hospital Medicine (1) Sepsis Sepsis acute organ dysfunction status: without acute organ dysfunction Sepsis type: sepsis due to unspecified organism Qualified Code(s): A41.9 - Sepsis, unspecified organism (2) Urinary tract infection Hematuria presence: with hematuria Urinary tract infection type: site unspecified Qualified Code(s): N39.0 - Urinary tract infection, site not specified; R31.9 - Hematuria, unspecified
[2022-08-20] MEDS: DAPTOmycin 850 MG in SYRINGE 0 ML IV SCH (19:58)
[2022-08-20] MEDS: PARoxetine HCL 10 MG TAB PO SCH (20:02)
[2022-08-21 00:22] LABS: Babesia microti DNA Not Detected (Not Detected)
[2022-08-21] MEDS: ACETAMINOPHEN 325 MG TAB PO SCH ×3 (01:13→17:48)
[2022-08-21 07:02] LABS: Hematocrit (blood only) 22.6 % (42.0-52.0); Hemoglobin 7.5 g/dl (14.0-18.0); Mean Corpuscular Hemoglobin 35.2 pg (25.0-34.0); Mean Corpuscular Hgb Conc 33.2 g/dL (32.0-36.0); Mean Corpuscular Volume 106.1 fL (80.0-100.0); Platelet Count 64 K/uL (130-400); RDW Coefficient of Variation 22.6 % (11.5-14.5); Red Blood Count 2.13 M/uL (4.70-6.10); White Blood Count 3.24 K/ul (4.8-10.8)
[2022-08-21 07:17] LABS: BUN Creatinine Ratio 11.2 (10-20); Calcium 9.7 mg/dl (8.6-10.3); Creatinine Clr Calc Pharmacy 46.4 ml/min; Est GFR (African American) 41.6 ml/min; Est GFR (Non-African American) 35.9 ml/min; Potassium 4.9 mmol/L (3.5-5.1)
--- NOTE | 2022-08-21 07:33 | Hospitalist Progress Note ---
Date of Service August 21, 2022 Assessment & Plan (1) Sepsis: Plan: Spike is a 67 y/o male with a PMHx of cirrhosis, GAVE, CHF who presents with bacteremia, anemia and acute on chronic kidney disease clinically improving at this time and hemodynamically stable. Sepsis Lactate 2.2 -> 2.0 with NSS given in the ER. Blood and urine cx showed enterococcus VRE. Hemodynamically stable. WBC in normal range. * Continue Daptomycin 850 mg q24, treated with Zosyn prior to EGD * Discussed with ID, will continue IV Dapto until August 29 (not a candidate for PO linezolid per ID) -Per case management, patient will not have a bed a [facility] until later this week and [facility] will not provide Dapto. Anemia Hgb: admission: 8.0 > 6.8 > RBC given> 7.9 > 6.6 > RBC given > 8.1 > 7.5 > 8.6 > 7.6 > 7.4 > 7.5 Likely GAVE bleed. Potential additional dilutional effect. * See GAVE * PM H&H * 2 units of blood so Gastric Antral Vascular Ectasia Multiple blood transfusions as above. Likely GAVE bleed. * EGD completed, no active bleed. Clip placed for oozing polyp. * Pantoprazole PO BID * Per GI: Octreotide discontinued, continue home Midrodine * Albumin Hyperkalemia K: 4.9 * Will monitor with daily BMP, consider adding additional Patiromer if level rises again. Chronic RUQ Abdominal Pain Reportedly always has this - suspect from ascites. Chronic Kidney Disease, stage III, Near baseline range (1.5-2.0), continue to monitor. Liver Cirrhosis secondary to SERRANO, chronic stable Pt is questioning if he is on the transplant list, Highest MELD: 31, 52.6% 90 day survival * Hold spironolactone due to hypotension and tachycardia in setting of suspected infection * Continue midodrine * Total Bili today 3.6, Direct Bili 1.3 Urethral stricture No urine retention on CT. Monitor for worsening urine output. Urethral dilation performed June 12. Back Pain, Known Spinal Stenosis Likely MSK in nature as patient with tenderness with palpation over the paraspinal muscles. No point tenderness over any of the spinous processes. -Had a fall at home about 3weeks ago, imaging ordered. -MR Thoracic spine without acute abnormalities/fractures. -Pain control with lidocaine patch and scheduled Tylenol. VTE Prophylaxis - deferred due to repeated need for blood transfusions and GAVE. SCDs ordered. Diet - low Na Disposition - med/tele Code status: DNR/DNI (2) Urinary tract infection: (3) Anemia: (4) Urethral stricture: (5) 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: (6) Spinal stenosis: (7) Abdominal pain: (8) CKD (chronic kidney disease), stage III: (9) GAVE (gastric antral vascular ectasia): (10) Bacteremia: Admission and Anticipated Discharge Date Admission Date: August 13, 2022 Supervising Physician Co-Signing Physician Notes Resident Physician Supervision Note: I independently interviewed and examined the patient and verified the [place] history and physical, reviewed labs and image studies and agree with resident findings and care plan. Subjective Patient seen and examined at bedside. Continues to have some lightheadedness with standing. Denies any dark color or blood in his bowel movements. No additional concerns today, is tolerating solid food without issue. Review of Systems Review of Systems: As per above Physical Exam Constitutional: cooperative and comfortable Eyes: no conjunctival abnormality ENMT: External ears and nose normal. Moist mucous membranes. Respiratory: normal respiratory effort, lungs clear to auscultation Cardiovascular: Rate/Rhythm: regular rate and regular rhythm Skin: no rashes, warm and dry Psychiatric: A+Ox3, euthymic affect Results & Data Results & Data Vital Signs (Past 12 Hours) Vital Signs Temp Pulse Pulse Resp BP Pulse Ox O2 Del Method 08/21/22 03:00 36.7 C 75 16 104/63 97 Room Air 08/21/22 02:37 71 08/20/22 23:00 36.8 C 80 19 100/56 L 97 Room Air Resident Activity Tracking Resident Involvement: Resident Care Provided Care Provided: Adult Hospital Medicine (1) Sepsis Sepsis acute organ dysfunction status: without acute organ dysfunction Sepsis type: sepsis due to unspecified organism Qualified Code(s): A41.9 - Sepsis, unspecified organism (2) Urinary tract infection Hematuria presence: with hematuria Urinary tract infection type: site unspecified Qualified Code(s): N39.0 - Urinary tract infection, site not specified; R31.9 - Hematuria, unspecified
[2022-08-21] MEDS: CHOLECALCIFEROL 1,000 UNITS 25 MCG TAB PO SCH (07:59)
[2022-08-21] MEDS: rifAXIMin 550 MG TABLET PO SCH ×2 (07:59→20:24)
[2022-08-21] MEDS: MIDODRINE HCL 2.5 MG TAB PO SCH ×3 (08:00→16:35)
[2022-08-21] MEDS: SUCRALFATE 1 GM/10 ML UDC PO SCH ×4 (08:00→20:24)
[2022-08-21] MEDS: VITAMIN B COMPLEX TAB PO SCH (08:01)
[2022-08-21] MEDS: LACTULOSE SYRUP 20 GM/30 ML UDC PO SCH (08:01)
[2022-08-21] MEDS: LIDOCAINE 5% 1 PATCH TD SCH (08:03)
[2022-08-21] MEDS: PANTOprazole 40 MG TAB PO SCH ×2 (08:18→20:24)
[2022-08-21 12:42] LABS: Bilirubin Direct 1.3 mg/dl (0-0.2); Bilirubin,Total 3.6 mg/dl (0.2-1.0)
[2022-08-21] MEDS: DAPTOmycin 850 MG in SYRINGE 0 ML IV SCH (20:24)
[2022-08-21] MEDS: PARoxetine HCL 10 MG TAB PO SCH (20:24)
[2022-08-22] MEDS: ACETAMINOPHEN 325 MG TAB PO SCH ×3 (05:42→16:51)
[2022-08-22 06:40] LABS: Hematocrit (blood only) 21.7 % (42.0-52.0); Hemoglobin 7.1 g/dl (14.0-18.0); Mean Corpuscular Hemoglobin 34.6 pg (25.0-34.0); Mean Corpuscular Hgb Conc 32.7 g/dL (32.0-36.0); Mean Corpuscular Volume 105.9 fL (80.0-100.0); Mean Platelet Volume 9.8 fL (9.4-12.4); Platelet Count 66 K/uL (130-400); RDW Coefficient of Variation 22.1 % (11.5-14.5); RDW Standard Deviation 84.6 fL (36.4-46.3); Red Blood Count 2.05 M/uL (4.70-6.10); White Blood Count 4.05 K/ul (4.8-10.8)
[2022-08-22 06:53] LABS: BUN Creatinine Ratio 10.4 (10-20); Calcium 9.5 mg/dl (8.6-10.3); Creatinine Clr Calc Pharmacy 43.2 ml/min; Est GFR (African American) 38.1 ml/min; Est GFR (Non-African American) 32.9 ml/min; Potassium 5.8 mmol/L (3.5-5.1)
--- NOTE | 2022-08-22 07:26 | Hospitalist Progress Note ---
Date of Service August 22, 2022 Assessment & Plan (1) Sepsis: Plan: Spike is a 67 y/o male with a PMHx of cirrhosis, GAVE, CHF who presents with bacteremia, anemia and acute on chronic kidney disease clinically improving at this time and hemodynamically stable. Sepsis secondary to VRE Bacteremia Lactate 2.2 -> 2.0 with NSS given in the ER. Blood and urine cx showed enterococcus VRE. Hemodynamically stable. WBC in normal range. * Continue Daptomycin 850 mg q24, treated with Zosyn (08/13-08/16) prior to EGD * Discussed with ID, will continue IV Dapto until August 29 (not a candidate for PO linezolid per ID) * Patient will be discharged home on IV Dapto. PICC/midline placement 08/22/22. Will plan for discharge home with home health support on Thursday 08/24. Appreciate CM assistance. * Per ID, check labs (CBC, CMP w/ dfif, and CK) at least weekly to monitor for toxicity. Last CK was 14 on 08/19. Anemia Hgb: admission: 8.0 > 6.8 > RBC given> 7.9 > 6.6 > RBC given > 8.1 > 7.5 > 8.6 > 7.6 > 7.4 > 7.5 Likely GAVE bleed. Potential additional dilutional effect. * See GAVE * PM H&H * 2 units of blood so Gastric Antral Vascular Ectasia Multiple blood transfusions as above. Likely GAVE bleed. * EGD completed, no active bleed. Clip placed for oozing polyp. * Pantoprazole PO BID * Per GI: Octreotide discontinued, continue home Midrodine * Albumin Hyperkalemia Potassium increased again on 08/22 to 5.8. Additional dose of Patiromer given (last dose was on 08/15). Recheck BMP in AM. * Will monitor with daily BMP, consider adding additional Patiromer if level rises again. Chronic RUQ Abdominal Pain Reportedly always has this - suspect from ascites. Chronic Kidney Disease, stage III, Near baseline range (1.5-2.0), continue to monitor. Liver Cirrhosis secondary to SERRANO, chronic stable Pt is questioning if he is on the transplant list, Highest MELD: 31, 52.6% 90 day survival * Hold spironolactone due to hypotension and tachycardia in setting of suspected infection * Continue midodrine * Total Bili today 3.6, Direct Bili 1.3 Urethral stricture No urine retention on CT. Monitor for worsening urine output. Urethral dilation performed June 12. Back Pain, Known Spinal Stenosis Likely MSK in nature as patient with tenderness with palpation over the paraspinal muscles. No point tenderness over any of the spinous processes. -Had a fall at home about 3weeks ago, imaging ordered. -MR Thoracic spine without acute abnormalities/fractures. -Pain control with lidocaine patch and scheduled Tylenol. VTE Prophylaxis - deferred due to repeated need for blood transfusions and GAVE. SCDs ordered. Diet - low Na Disposition - med/tele Code status: DNR/DNI (2) Urinary tract infection: (3) Anemia: (4) Urethral stricture: (5) 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: (6) Spinal stenosis: (7) Abdominal pain: (8) CKD (chronic kidney disease), stage III: (9) GAVE (gastric antral vascular ectasia): (10) Bacteremia: Admission and Anticipated Discharge Date Admission Date: August 13, 2022 Supervising Physician Co-Signing Physician Notes Resident Physician Supervision Note: I independently interviewed and examined the patient and verified the [place] history and physical, reviewed labs and image studies and agree with resident findings and care plan. Subjective Patient seen and evaluated at bedside. States that he overall is feeling better. Was very active this morning; walked many laps around the unit and worked with PT. No new concerns. Sleeping well and eating well. Review of Systems Review of Systems: As per above Physical Exam Physical Exam: GENERAL: No acute distress. Very pleasant male. Vital signs reviewed as above. HENT: Moist mucous membranes. RESPIRATORY: Normal respiratory effort. No conversational dyspnea. EXTREMITIES: + edema SKIN: Warm, dry. + jaundice NEUROLOGIC: Alert and oriented. Normal speech. No focal neurological deficits. PSYCHIATRIC: Cooperative. Appropriate mood and affect. Results & Data Results & Data Vital Signs (Past 12 Hours) Vital Signs Temp Pulse Pulse Resp BP Pulse Ox O2 Del Method 08/22/22 06:57 36.6 C 80 18 109/65 97 Room Air 08/22/22 02:34 36.7 C 74 16 94/58 L 99 Room Air 08/21/22 22:52 36.8 C 70 16 91/50 L 97 Room Air 08/21/22 22:45 72 Laboratory Results 08/22/22 08/22/22 08/17/22 Range/Units 05:58 05:58 08:38 WBC 4.05 L (4.8-10.8) K/ul RBC 2.05 L (4.70-6.10) M/uL Hgb 7.1 L (14.0-18.0) g/dl Hct 21.7 L (42.0-52.0) % MCV 105.9 H (80.0-100.0) fL MCH 34.6 H (25.0-34.0) pg MCHC 32.7 (32.0-36.0) g/dL RDW Std Deviation 84.6 H (36.4-46.3) fL RDW Coeff of Miguel 22.1 H (11.5-14.5) % Plt Count 66 L (130-400) K/uL MPV 9.8 (9.4-12.4) fL Sodium 136 (136-145) mmol/L Potassium 5.8 H (3.5-5.1) mmol/L Chloride 109 H (98-107) mmol/L Carbon Dioxide 24 (21-32) mmol/L Anion Gap 3 (3-11) BUN 21 (6-23) mg/dl Creatinine 2.02 H (0.6-1.4) mg/dl Est Cr Clr Drug Dosing 43.2 ml/min Est GFR ( Amer) 38.1 ml/min Est GFR (Non-Af Amer) 32.9 ml/min BUN/Creatinine Ratio 10.4 (10-20) Glucose 123 H (70-99(Fasting)) mg/dl Calcium 9.5 (8.6-10.3) mg/dl E.chaffeensis DNA (PCR) Negative (Negative) Resident Activity Tracking Resident Involvement: Resident Care Provided Care Provided: Adult Hospital Medicine (1) Sepsis Sepsis acute organ dysfunction status: without acute organ dysfunction Sepsis type: sepsis due to unspecified organism Qualified Code(s): A41.9 - Sepsis, unspecified organism (2) Urinary tract infection Hematuria presence: with hematuria Urinary tract infection type: site unspecified Qualified Code(s): N39.0 - Urinary tract infection, site not specified; R31.9 - Hematuria, unspecified
[2022-08-22] MEDS: MIDODRINE HCL 2.5 MG TAB PO SCH ×2 (07:50→11:49)
[2022-08-22] MEDS: SUCRALFATE 1 GM/10 ML UDC PO SCH ×4 (07:50→20:29)
[2022-08-22] MEDS: LIDOCAINE 5% 1 PATCH TD SCH (07:52)
[2022-08-22] MEDS: rifAXIMin 550 MG TABLET PO SCH ×2 (09:24→20:28)
[2022-08-22] MEDS: CHOLECALCIFEROL 1,000 UNITS 25 MCG TAB PO SCH (09:24)
[2022-08-22] MEDS: LACTULOSE SYRUP 20 GM/30 ML UDC PO SCH (09:24)
[2022-08-22] MEDS: PANTOprazole 40 MG TAB PO SCH ×2 (09:24→20:29)
[2022-08-22] MEDS: VITAMIN B COMPLEX TAB PO SCH (10:17)
[2022-08-22] MEDS ORDERED: PATIROMER CALCIUM SORBITEX 8.4 GM PACK PO SCH (12:00)
[2022-08-22 13:08] LABS: Ehrlichia chaff DNA Bld Negative (Negative)
[2022-08-22] MEDS: MIDODRINE HCL 10 MG TAB PO SCH (17:26)
[2022-08-22] MEDS: DAPTOmycin 850 MG in SYRINGE 0 ML IV SCH (20:28)
[2022-08-22] MEDS: PARoxetine HCL 10 MG TAB PO SCH (20:28)
[2022-08-23] MEDS: ACETAMINOPHEN 325 MG TAB PO SCH ×3 (03:34→18:17)
[2022-08-23 06:46] LABS: Hematocrit (blood only) 21.1 % (42.0-52.0); Mean Corpuscular Hemoglobin 35.7 pg (25.0-34.0); Mean Corpuscular Hgb Conc 33.2 g/dL (32.0-36.0); Mean Corpuscular Volume 107.7 fL (80.0-100.0); Platelet Count 66 K/uL (130-400); RDW Coefficient of Variation 22.8 % (11.5-14.5); Red Blood Count 1.96 M/uL (4.70-6.10); White Blood Count 4.02 K/ul (4.8-10.8)
[2022-08-23 07:12] LABS: BUN Creatinine Ratio 10.9 (10-20); Calcium 9.6 mg/dl (8.6-10.3); Creatinine Clr Calc Pharmacy 42.7 ml/min; Est GFR (African American) 38.4 ml/min; Est GFR (Non-African American) 33.1 ml/min
--- NOTE | 2022-08-23 07:53 | Hospitalist Progress Note ---
Date of Service August 23, 2022 Assessment & Plan (1) Sepsis: Plan: Spike is a 67 y/o male with a PMHx of cirrhosis, GAVE, CHF who presents with bacteremia, anemia and acute on chronic kidney disease clinically improving at this time and hemodynamically stable. Sepsis secondary to VRE Bacteremia Lactate 2.2 -> 2.0 with NSS given in the ER. Blood and urine cx showed enterococcus VRE. Hemodynamically stable. WBC in normal range. * Continue Daptomycin 850 mg q24, treated with Zosyn (08/13-08/16) prior to EGD * Discussed with ID, will continue IV Dapto until August 29 (not a candidate for PO linezolid per ID) * Patient will be discharged home on IV Dapto. Midline placed on 08/22/22. Will plan for discharge home with home health support on Thursday 08/24. Appreciate CM assistance. * Per ID, check labs (CBC, CMP w/ dfif, and CK) at least weekly to monitor for toxicity. Last CK was 14 on 08/19. Gastric Antral Vascular Ectasia Anemia Multiple blood transfusions as above. Likely GAVE bleed. * EGD completed, no active bleed. Clip placed for oozing polyp. * Pantoprazole PO BID * Per GI: Octreotide discontinued, continue home Midrodine * Albumin Hyperkalemia Potassium increased again on 08/22 to 5.8. Additional dose of Patiromer given (last dose was on 08/15).. * Will monitor with daily BMP, consider adding additional Patiromer if level rises again. Chronic RUQ Abdominal Pain Reportedly always has this - suspect from ascites. Chronic Kidney Disease, stage III, Near baseline range (1.5-2.0), continue to monitor. 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 Monitor for worsening urine output. Urethral dilation performed June 12. Back Pain, Known Spinal Stenosis Likely MSK in nature as patient with tenderness with palpation over the paraspinal muscles. No point tenderness over any of the spinous processes. -Had a fall at home about 3weeks ago, imaging ordered. -MR Thoracic spine without acute abnormalities/fractures. -Pain control with lidocaine patch and scheduled Tylenol. VTE Prophylaxis - deferred due to repeated need for blood transfusions and GAVE. SCDs ordered. Diet - low Na Disposition - med/tele Code status: DNR/DNI (2) Urinary tract infection: (3) Anemia: (4) Urethral stricture: (5) 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: (6) Spinal stenosis: (7) Abdominal pain: (8) CKD (chronic kidney disease), stage III: (9) GAVE (gastric antral vascular ectasia): (10) Bacteremia: Admission and Anticipated Discharge Date Admission Date: August 13, 2022 Supervising Physician Co-Signing Physician Notes Resident Physician Supervision Note: I independently interviewed and examined the patient and verified the [place] history and physical, reviewed labs and image studies and agree with resident findings and care plan. Subjective Patient seen and examined at bedside. No concerns overnight. Worked with PT again today. Anticipate d/c home with home health tomorrow for additional IV daptomycin. No dark or bloody bowel movements. Review of Systems Review of Systems: As per above Physical Exam 2 Constitutional: cooperative and comfortable Eyes: no conjunctival abnormality ENMT: External ears and nose normal. Moist mucous membranes. Respiratory: normal respiratory effort, lungs clear to auscultation Cardiovascular: Rate/Rhythm: regular rate and regular rhythm Skin: no rashes, warm and dry Psychiatric: A+Ox3, euthymic affect Results & Data Results & Data Vital Signs (Past 12 Hours) Vital Signs Temp Pulse Pulse Resp BP Pulse Ox O2 Del Method 08/23/22 07:12 68 08/23/22 07:06 36.7 C 76 18 99/60 L 99 Room Air 08/23/22 03:00 36.7 C 73 18 106/62 96 Room Air 08/22/22 23:00 36.7 C 67 18 119/66 98 Room Air 08/22/22 22:38 69 Resident Activity Tracking Resident Involvement: Resident Care Provided Care Provided: Adult Hospital Medicine (1) Sepsis Sepsis acute organ dysfunction status: without acute organ dysfunction Sepsis type: sepsis due to unspecified organism Qualified Code(s): A41.9 - Sepsis, unspecified organism (2) Urinary tract infection Hematuria presence: with hematuria Urinary tract infection type: site unspecified Qualified Code(s): N39.0 - Urinary tract infection, site not specified; R31.9 - Hematuria, unspecified
[2022-08-23] MEDS: SUCRALFATE 1 GM/10 ML UDC PO SCH ×4 (07:55→20:01)
[2022-08-23] MEDS: LACTULOSE SYRUP 20 GM/30 ML UDC PO SCH (07:56)
[2022-08-23] MEDS: LIDOCAINE 5% 1 PATCH TD SCH (07:56)
[2022-08-23] MEDS: rifAXIMin 550 MG TABLET PO SCH ×2 (07:59→20:01)
[2022-08-23] MEDS: VITAMIN B COMPLEX TAB PO SCH (08:00)
[2022-08-23] MEDS: CHOLECALCIFEROL 1,000 UNITS 25 MCG TAB PO SCH (08:00)
[2022-08-23] MEDS: PANTOprazole 40 MG TAB PO SCH ×2 (08:00→20:01)
[2022-08-23] MEDS: MIDODRINE HCL 10 MG TAB PO SCH ×3 (08:04→17:16)
[2022-08-23] MEDS: DAPTOmycin 850 MG in SYRINGE 0 ML IV SCH (20:00)
[2022-08-23] MEDS: PARoxetine HCL 10 MG TAB PO SCH (20:01)
[2022-08-23] MEDS: ONDANSETRON 4 MG OD TAB PO PRN (21:44)
[2022-08-24] MEDS: ACETAMINOPHEN 325 MG TAB PO SCH ×2 (03:10→10:59)
[2022-08-24 06:22] LABS: BUN Creatinine Ratio 12.3 (10-20); Calcium 9.1 mg/dl (8.6-10.3); Creatinine Clr Calc Pharmacy 39.2 ml/min; Est GFR (African American) 34.4 ml/min; Est GFR (Non-African American) 29.7 ml/min; Potassium 4.7 mmol/L (3.5-5.1)
[2022-08-24 07:16] LABS: Hematocrit (blood only) 19.9 % (42.0-52.0); Hemoglobin 6.5 g/dl (14.0-18.0); Mean Corpuscular Hemoglobin 35.3 pg (25.0-34.0); Mean Corpuscular Hgb Conc 32.7 g/dL (32.0-36.0); Mean Corpuscular Volume 108.2 fL (80.0-100.0); Mean Platelet Volume 10.2 fL (9.4-12.4); Platelet Count 66 K/uL (130-400); RDW Coefficient of Variation 23.1 % (11.5-14.5); RDW Standard Deviation 91.4 fL (36.4-46.3); Red Blood Count 1.84 M/uL (4.70-6.10); White Blood Count 4.72 K/ul (4.8-10.8)
[2022-08-24] MEDS ORDERED: SODIUM CHLORIDE 0.9% 250 ML IV PRN ×2 (07:34→09:07)
[2022-08-24] MEDS: LIDOCAINE 5% 1 PATCH TD SCH (08:19)
[2022-08-24] MEDS: SUCRALFATE 1 GM/10 ML UDC PO SCH ×2 (08:19→10:59)
[2022-08-24] MEDS: MIDODRINE HCL 10 MG TAB PO SCH ×2 (08:20→11:00)
[2022-08-24] MEDS: LACTULOSE SYRUP 20 GM/30 ML UDC PO SCH (08:20)
[2022-08-24] MEDS: rifAXIMin 550 MG TABLET PO SCH (08:20)
[2022-08-24] MEDS: VITAMIN B COMPLEX TAB PO SCH (08:20)
[2022-08-24] MEDS: PANTOprazole 40 MG TAB PO SCH (08:20)
[2022-08-24] MEDS: CHOLECALCIFEROL 1,000 UNITS 25 MCG TAB PO SCH (08:20)
--- NOTE | 2022-08-24 11:15 | Ultrasound Report ---
ULTRASOUND ABDOMEN COMPLETE CLINICAL HISTORY: Upper abdominal pain. Anemia. COMPARISON STUDY: Abdominal CT dated 08/13/2022 TECHNIQUE: Real-time, grayscale, and color flow sonography of the abdomen was performed. Images are r eviewed in the transverse and longitudinal planes. FINDINGS: Liver: The liver is cirrhotic in morphology and heterogeneous in echotexture. There is nodularity of the hepatic surface contour. There is no intrahepatic biliary ductal dilatation. The main portal vein is patent. Gallbladder: The gallbladder is surgically absent. The common bile duct was not visualized. Pancreas: Not visualized due to overlying bowel gas. Spleen: The spleen is enlarged, measuring 14.6 cm in length. Kidneys: The kidneys demonstrate cortical atrophy. Echotexture is normal. There is no hydronephrosis. The right kidney measures 8.6 cm in length and the left kidney measures 9.3 cm in length. There are bilateral renal calculi. Small bilateral renal cysts measure up to 2.8 cm. Abdominal vasculature: Visualized portions of the abdominal aorta are normal in caliber. The IVC was not visualized. Ascites: There is a small volume of perihepatic ascites. IMPRESSION: 1. No acute abnormality is identified. 2. The liver is cirrhotic in morphology and heterogeneous in echotexture. 3. Splenomegaly and a small volume of perihepatic ascites indicate portal hypertension. 4. Nonvisualization of the pancreas. 5. Status post cholecystectomy. 6. Bilateral nephrolithiasis. ACT 112: Negative or not required by law. Electronically signed by: Edward Foreman M.D. 08/24/2022 11:13 AM
--- NOTE | 2022-08-24 14:24 | Discharge Summary ---
Date of Service August 24, 2022 Admission HPI Per Admitting Provider Cortes (Bill) Khang is a 67 year old male who presents to the ER on advice of his home health nurse. Difficulty getting a good history from the patient as he appears confused. Initially tells me he is here for abdominal pain for the last 2 days but then when I mention he had this during his last admission he reports it has been ongoing since then. History obtained from his son over the phone. Reportedly he was complaining of chest pain to the nurse this morning. On checking his vital signs his blood pressure was low with systolic 80 and heart rate of 139 with more confusion therefore he was sent to the ER. His son saw him yesterday and with hindsight thinks he has been getting worse with dizzy spells and generalized lethargy during that time. He confirms the patient always complains of abdominal pain and this has been long standing. He reports his dad may not be taking Carafate as he was under the impression it was discontinued last admission - on review of discharge it was actually increased from BID to Q ID. 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 He currently denies any melena or bright red blood in stool. Admission Exam Per Admitting Provider Constitutional: well developed; + not well nourished and no acute distress Eyes: PERRL, conjunctivae normal, anicteric sclerae ENMT: Mouth: oral mucous membranes not dry Neck: trachea midline, no thyromegaly Respiratory: normal respiratory effort, lungs clear to auscultation Cardiovascular: Rate/Rhythm: regular rhythm and + tachycardic Heart Sounds: no murmur Extremities: normal capillary refill and + pedal edema (pitting 2+ to thigh equal b/l); no calf tenderness Gastrointestinal (Abdomen): Inspection/Auscultation: abdomen normal to inspection and + abdomen distended Percussion/Palpation: + abdomen tender (generalized) and abdomen soft; no guarding and abdomen not rigid Musculoskeletal: no cyanosis or clubbing, extremities motor strength 5/5 Skin: no rashes, warm and dry Neurologic: moves all extremities, awake and + confused; no focal motor deficits (no unilateral weakness) Speech / Cognition: normal speech Cranial Nerves: PERRL, EOM intact bilaterally, normal facial strength, tongue midline, able to rotate head bilaterally, able to elevate shoulders bilaterally, no nystagmus and symmetric palate elevation B Psychiatric: Orientation: alert, oriented to person and oriented to place; + not oriented to time Genitourinary: no CVA tenderness Principal Diagnosis Bacteremia Discharge Exam Constitutional + obese and comfortable; no acute distress Eyes no conjunctival abnormality ENMT External ears and nose normal. Moist mucous membranes Respiratory Good aeration, no increased work of breathing or accessory muscle use Cardiovascular Regular rate and rhythm. Symmetrical lower extremity edema bilaterally. Gastrointestinal (Abdomen) Abdomen nondistended. Skin Ecchymosis on bilateral upper extremities. No rash or jaundice. Psychiatric A+Ox3, euthymic affect Discharge Data Allergies Allergy/AdvReac Type Severity Reaction Status Date / Time tamsulosin Allergy Intermediate HIVES Verified 08/13/22 16:20 etanercept [From Enbrel] AdvReac Intermediate Increased Verified 08/13/22 16:20 infections Consultations 08/14/22 07:44 Consult Gastroenterology Routine 08/14/22 17:28 Consult Nephrology Routine 08/16/22 08:49 Consult Infectious Diseases Routine Procedures Performed Operation Date: 08/17/22 17:30 Actual Procedures p EGD Hemostasis - Kindra Fair MD s Flexible Sigmoidoscopy - Kindra Fair MD Ordered Studies 08/13/22 19:12 CT Abd and Pelvis [CT abd pelvis IV con only] Stat 08/14/22 10:34 IR paracentesis abd w/img US Routine 08/17/22 15:00 MR thoracic spine wo con Routine 08/24/22 09:59 US point of care ultrasound Urgent 08/24/22 10:25 US abdomen complete Urgent Chest X-Ray 08/13/22 12:37 XR chest 1V portable HISTORY: 67 years-old Male Sepsis acute sepsis COMPARISON: 07/13/2022 TECHNIQUE: AP view of the chest FINDINGS: Cardiomediastinal and hilar silhouettes are unchanged. No pneumothorax, pleural effusion, airspace consolidation or pulmonary edema. Degenerative changes of the shoulders and spine. IMPRESSION: No acute process. ACT 112: Negative or not required by law. The above report was generated using voice recognition software. It may contain grammatical, syntax or spelling errors. Electronically signed by: Alan Espino M.D. 08/13/2022 1:24 PM Abdomen/Pelvis CT 08/13/22 19:12 Exam(s): CT ABDOMEN + PELVIS With Contrast IV Amt: 85ml EXAM: CT Abdomen and Pelvis With Intravenous Contrast CLINICAL HISTORY: Reason for exam: abdominal pain, sepsis. TECHNIQUE: Axial computed tomography images of the abdomen and pelvis with intravenous contrast. CTDI is 27.95 mGy and DLP is 1657.57 mGy-cm. Automated exposure control was utilized for the study. A dose lowering technique was utilized adhering to the principles of ALARA. CONTRAST: Patient received 85ml of IV contrast COMPARISON: CT abdomen pelvis July 13, 2022. FINDINGS: Lung bases: Unremarkable. No mass. No consolidation. Heart: Cardiomegaly. ABDOMEN: Liver: Hepatic cirrhosis. Cholecystectomy. Mild splenomegaly. Multiple didier-splenic varices. Abdominal and pelvic ascites. Gallbladder and bile ducts: See above. Pancreas: Unremarkable. No mass. No ductal dilation. Spleen: See above. Adrenals: Unremarkable. No mass. Kidneys and ureters: Bilateral nonobstructing renal calculi, measuring up to 3 mm in the LEFT lower pole. Stomach and bowel: Unremarkable. No acute diverticulitis. No small bowel obstruction. No free air. PELVIS: Appendix: No findings to suggest acute appendicitis. Bladder: Unremarkable. No mass. Reproductive: Unremarkable as visualized. ABDOMEN and PELVIS: Intraperitoneal space: See above. Bones/joints: Degenerative changes of the spine. No acute fracture. No dislocation. Soft tissues: Mild anasarca. Vasculature: Atherosclerotic changes of the aorta. Lymph nodes: Unremarkable. No enlarged lymph nodes. IMPRESSION: 1. No acute diverticulitis. No small bowel obstruction. No free air. 2. Hepatic cirrhosis. Cholecystectomy. Mild splenomegaly. Multiple didier-splenic varices. Abdominal and pelvic ascites. 3. Bilateral nonobstructing renal calculi, measuring up to 3 mm in the LEFT lower pole. Electronically signed by: Bruce Dennis MD 08/13/22 20:17 PM Paracentesis Ultrasound 08/14/22 10:34 ULTRASOUND-GUIDED DIAGNOSTIC PARACENTESIS CLINICAL HISTORY: Ascites fluid; evaluate for SBP PROCEDURE: Procedure and risks were explained. Informed consent was obtained. A final timeout was completed. The right upper quadrant was prepped and draped in sterile fashion. 1% buffered lidocaine was utilized for skin anesthesia. Utilizing ultrasound guidance, a 5 [place] safety centesis catheter was advanced into the right upper quadrant pocket of ascites. Ultrasound images were obtained. Approximately 400 mL of yellow ascites fluid was removed and sent to lab for analysis. The catheter was removed and Band-Aid applied. The patient tolerated the procedure well. Vital signs will be monitored postprocedure. IMPRESSION: Paracentesis as above. Performed, dictated, and signed by Jose Elias Romero PA-C; to be co-signed by Dr. Edward Foreman. Electronically signed by: Edward Foreman M.D. 08/14/2022 3:22 PM Thoracic Spine MRI 08/17/22 15:00 MRI OF THE THORACIC SPINE WITHOUT IV CONTRAST CLINICAL HISTORY: Bacteremia. Thoracic back pain. COMPARISON STUDY: CT of the cervical spine dated 05/23/2022. Abdominal CT dated 08/13/2022. TECHNIQUE: MRI of the thoracic spine is performed utilizing various T1 and T2- weighted sequences in the axial and sagittal planes. IV contrast was not administered for this examination. The examination is compromised by motion artifact. FINDINGS: Vertebral body height and alignment are maintained throughout the thoracic spine. Marrow signal intensity is heterogeneous. There is hyperkyphosis. Small anterior osteophytes are seen throughout. The spinous processes appear intact. No destructive bony lesion or marrow changes is identified. Chronic degenerative endplate change is seen at most of the thoracic levels. Disc desiccation and loss of height is seen throughout the thoracic spine. A tiny posterior disc bulge is noted at T6-T7. There is no large disc herniation or central canal stenosis. The thoracic spinal cord is normal in morphology and signal intensity. The conus medullaris terminates at the level of L1. There is no evidence of epidural fluid collection on this unenhanced examination. There is no MRI evidence of high-grade neuroforaminal narrowing throughout the thoracic region. The paraspinous soft tissues are normal as visualized. Bilateral pleural effusions are noted. A subcentimeter cyst is incidentally noted in the right kidney. IMPRESSION: 1. No acute bony abnormality is identified. 2. The thoracic cord is normal in morphology and signal intensity. 3. No central canal stenosis is seen throughout the thoracic region. 4. Small pleural effusions. Dictated: 08/17/2022 6:27 PM Transcribed: 08/17/2022 7:01 PM Evans [id number] Electronically signed by: Edward Foreman M.D. 08/17/2022 7:31 PM Abdomen Ultrasound 08/24/22 10:25 ULTRASOUND ABDOMEN COMPLETE CLINICAL HISTORY: Upper abdominal pain. Anemia. COMPARISON STUDY: Abdominal CT dated 08/13/2022 TECHNIQUE: Real-time, grayscale, and color flow sonography of the abdomen was performed. Images are reviewed in the transverse and longitudinal planes. FINDINGS: Liver: The liver is cirrhotic in morphology and heterogeneous in echotexture. There is nodularity of the hepatic surface contour. There is no intrahepatic b iliary ductal dilatation. The main portal vein is patent. Gallbladder: The gallbladder is surgically absent. The common bile duct was not visualized. Pancreas: Not visualized due to overlying bowel gas. Spleen: The spleen is enlarged, measuring 14.6 cm in length. Kidneys: The kidneys demonstrate cortical atrophy. Echotexture is normal. There is no hydronephrosis. The right kidney measures 8.6 cm in length and the left kidney measures 9.3 cm in length. There are bilateral renal calculi. Small bilateral renal cysts measure up to 2.8 cm. Abdominal vasculature: Visualized portions of the abdominal aorta are normal in caliber. The IVC was not visualized. Ascites: There is a small volume of perihepatic ascites. IMPRESSION: 1. No acute abnormality is identified. 2. The liver is cirrhotic in morphology and heterogeneous in echotexture. 3. Splenomegaly and a small volume of perihepatic ascites indicate portal hypertension. 4. Nonvisualization of the pancreas. 5. Status post cholecystectomy. 6. Bilateral nephrolithiasis. ACT 112: Negative or not required by law. Electronically signed by: Edward Foreman M.D. 08/24/2022 11:13 AM Hospital Course (1) Sepsis: Spike is a 67 y/o male with a PMHx of cirrhosis, GAVE, CHF who presents with bacteremia, anemia and acute on chronic kidney disease clinically improving at this time and hemodynamically stable. Sepsis secondary to VRE Bacteremia Patient presented with confusion, chest pain, and hypotension. He was found to have a lactate of 2.2 in the ED. He was started on broad spectrum antibiotics (Zosyn, Daptomycin). Blood and urine culture grew enterococcus VRE. Echo was completed without signs of endocarditis and there were no signs of septic joints. Paracentesis completed to rule out SBP. Infectious disease consulted, advised to continue IV Daptomycin until August 29. A midline was placed and patient was discharged with home health to administer daily Daptomycin. Per ID, labs will need to be checked weekly (CBC, CMP w/ diff, CK) to monitor toxicity. Anemia Patient had a history of anemia and GAVE with approximately 20+ units transfused in the past year. On admission his hemoglobin was 8.0, but after several days his hemoglobin had dropped to 6.6 and he became more symptomatic with diz ziness/lightheadedness. He received two units of PRBCs prior to undergoing EGD for further investigation- no active bleed identified but clip placed for oozing polyp. Patient treated with octreotide, pantoprazole. Hemoglobin remained ~8 but eventually decreased to 7s and 6.5 on day of discharge. Patient had no bloody/dark bowel movements at that time, but patient received an additional 1 unit PRBCs prior to discharging. 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 Espitia was notified with updates via message. Gastric Antral Vascular Ectasia Multiple blood transfusions in the past as described above. EGD completed and sigmoidoscopy completed this admission, no active bleed. Clip placed for oozing polyp. Received Albumin and Octreotide. Continued home Midodrine. Hyperkalemia Potassium elevated intermittently on admission (reached 5.8 at maximum), patient received Patiromer and potassium level responded appropriately. Will continue to monitor wit labs as described above. Chronic RUQ Abdominal Pain Reportedly always has this - suspect from ascites. US completed on 08/24 due to some additional upper abdominal pain, no acute findings. Chronic Kidney Disease, stage III, Near baseline range (1.5-2.0), will monitor routinely while continuing Liver Cirrhosis secondary to SERRANO, chronic stable Pt is questioning if he is on the transplant list, Highest MELD: 31, 52.6% 90 day survival. Continue midodrine. Continue following with GI, hepatology after discharge. Urethral stricture No urine retention on CT. Patient had urethral dilation performed on June 12. No urinary retention noted on CT, urine output monitored during admission. Back Pain, Known Spinal Stenosis Patient noted some mid-back pain, stated that he recently had a fall about 3 weeks ago. This pain was evaluated, likely MSK in nature as patient with tenderness with palpation over the paraspinal muscles. No point tenderness over any of the spinous processes. Given recent fall, MR thoracic spine was completed without any acute abnormalities/fracture. His pain responded will to lidocaine patch and Tylenol as needed. (2) Urinary tract infection: (3) Anemia: (4) Urethral stricture: (5) 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: (6) Spinal stenosis: (7) Abdominal pain: (8) CKD (chronic kidney disease), stage III: (9) GAVE (gastric antral vascular ectasia): (10) Bacteremia: Total Time Total Time Spent Total Time Spent (In Minutes): . Discharge Plan Discharge Items Patient Disposition: Home - Home Health Services Reason For Visit: UTI SEPSIS Discharge Diagnosis: UTI Sepsis Condition on Discharge: Good Activity: Per Instructions section Non-emergency contact: Primary Care Provider and Communications Marketing Intern Call non-emergency contact if: you have any medication questions, your symptoms worsen and your temperature is above 101.5 Follow-up/Referrals: Jose Elias Colindres CRNP [Nurse Practitioner] - 09/03/22 10:20 am Diet: Heart Healthy and Low Sodium (2gm) Addtl Attending Provider Instructions: You were admitted to the hospital for UTI Sepsis. While admitted you had two EGD procedures for concern of GI bleed as well as a paracentesis. Due to dark color stools and decreased hemoglobin, you received a total of three units of blood. There were no acute bleeds identified on imaging, there is suspicion that this could be related to your cirrhosis. Due to your bacteremia, you were started on IV antibiotics which you will need to continue until August 29. Your antibiotics will be continued at home via home health services, you will also need to have blood work repeated routinely while on the antibiotics. A discharge summary will be sent to your primary care physician to ensure continuity of care. Follow-up appointments Make a follow-up appointment with your PCP within the next week. It is very important that you follow up with them shortly after discharge from the hospital. Medications Your medication list has been reviewed and reconciled upon discharge to ensure accuracy and continuity of care. An updated list of all your medications is included with your hospital discharge paperwork. Please review this list closely, and make note of any changes. CALL 911 OR GO TO THE EMERGENCY DEPARTMENT if you experience any of the following: Sudden, severe abdominal pain or nausea/vomiting Severe chest pain, or chest pain that radiates (moves) to your jaw or arm Sudden, severe shortness of breath or difficulty breathing Thank you for allowing us to participate in your care. Pending Studies at Discharge: No Stand-Alone Forms: [facility] Certus, Smoking Cessation Medications and DC Order Prescriptions: Continued cholecalciferol (vitamin D3) 50 mcg (2,000 unit) capsule 50 mcg PO QAM Qty: 90 3RF Xifaxan 550 mg tablet 550 mg PO BID Qty: 60 5RF ondansetron HCl 4 mg tablet 4 mg PO Q8H PRN (Reason: Nausea And Vomiting) Qty: 30 1RF pantoprazole 40 mg tablet,delayed release (DR/EC) 40 mg PO BID Qty: 60 0RF lactulose 10 gram/15 mL solution 20 g PO DAILY Qty: 946 3RF Rx Instructions: titrate for 2-3 bowel movements each day. vitamin B complex Tablet 1 tab PO DAILY paroxetine HCl 10 mg tablet 10 mg PO QPM darbepoetin coretta in polysorbat 100 mcg/0.5 mL syringe 100 mcg subcut .COMPLEX PRN (Reason: NEEDED) Rx Instructions: 100 mcg subcutaneously Q weekly until Hgb >9. Then resume, Q other week. Hold for Hgb >10.; sucralfate 100 mg/mL suspension 10 ml PO ACHS Qty: 1000 2RF spironolactone 50 mg tablet 50 mg PO BID Qty: 60 2RF Rx Instructions: take each morning and every afternoon midodrine 10 mg tablet 10 mg PO TID Qty: 90 1RF Rx Instructions: do not give last dose of day after 6PM or within 4 hrs of bedtime Discharge Orders: Discharge Order (Routine); Ordered 08/24/22 Ordered By: Stephany Villarreal/Other Patient Handouts: Low Salt Diet Dc Admission Data Admit Date/Time: 08/13/22 17:10 Attending Provider: Selena Tuttle Admit Provider: Jonny Lares Primary Care Provider: Fiorella Castellano Other Providers: Jeffery Hyatt ; Heath Iraheta [facility] [place] ; Debra Vargas ; Yajaira Yap ; Puneet Mckeon ; Joceline Colvin ; Simon Vazquez ; Annalise Nixon ; Nuvia Sanchez ; Yenifer Baker ; Reji Murray ; Teresita Hernandez ; [facility] ; Margarito Zamudio Other Interventions: Discharge Summary Assessment (RN) Last Done: 08/24/22 13:30 Supervising Physician Co-Signing Physician Notes Resident Physician Supervision Note: I independently interviewed and examined the patient and verified the [place] history and physical, reviewed labs and image studies and agree with resident findings and care plan.
== END 2022-08-24 16:21 | disposition home health service (06) | DRG 871 ==
LOC: ED 12:08 → 2N 17:10 → SUATTDRO 17:10 → 2N 18:20 → 2E 08-14 09:12 → 2S 08-14 09:51

== ENCOUNTER 2022-09-01 01:38 | Inpatient (IN) ==
[2022-09-01 03:00] LABS: Hematocrit (blood only) 18.8 % (42.0-52.0); Hemoglobin 6.3 g/dl (14.0-18.0); Mean Corpuscular Hemoglobin 36.6 pg (25.0-34.0); Mean Corpuscular Hgb Conc 33.5 g/dL (32.0-36.0); Mean Corpuscular Volume 109.3 fL (80.0-100.0); Mean Platelet Volume 10.5 fL (9.4-12.4); Platelet Count 54 K/uL (130-400); RDW Coefficient of Variation 23.1 % (11.5-14.5); Red Blood Count 1.72 M/uL (4.70-6.10)
[2022-09-01] MEDS ORDERED: SODIUM CHLORIDE 0.9% 250 ML IV PRN (03:05)
[2022-09-01 03:10] LABS: Alanine Aminotransferase 19 U/L (7-52); Albumin Globulin Ratio 0.9 (0.9-2); Albumin Level 2.6 gm/dl (3.4-5.0); Alkaline Phosphatase 114 U/L (34-104); Anion Gap 6 (3-11); Aspartate Aminotransferase 35 U/L (13-39); Bilirubin,Total 4.7 mg/dl (0.2-1.0); Blood Urea Nitrogen 33 mg/dl (6-23); Calcium 9.7 mg/dl (8.6-10.3); Carbon Dioxide 21 mmol/L (21-32); Chloride 108 mmol/L (98-107); Est GFR (African American) 29.1 ml/min; Est GFR (Non-African American) 25.1 ml/min; Glucose 161 mg/dl (70-99(Fasting)); Magnesium 1.5 mg/dl (1.7-2.4); Potassium 4.3 mmol/L (3.5-5.1); Sodium 135 mmol/L (136-145); Total Protein 5.6 gm/dl (6.0-8.3)
[2022-09-01 03:16] LABS: Troponin I High Sensitivity 11.1 pg/ml (0-20)
[2022-09-01 03:18] LABS: INR 1.7 (0.9-1.1); Prothrombin Time 17.6 Seconds (9.0-12.0)
[2022-09-01 03:19] LABS: Appearance Urine Cloudy (Clear); Bacteria Urine Automated 4+ (Negative); Bilirubin Urine Negative (Negative); Blood Urine 2+ (Negative); Color Urine Yellow; Epithelial Cell Urine Auto 20-30 /lpf (0-5); Glucose Urine UA Negative (Negative); Ketones Urine Negative (Negative); Leukocyte Esterase Urine 2+ (Negative); Nitrite Urine Positive (Negative); Protein Urine Trace (Negative); Specific Gravity Urine 1.016 (1.000-1.030); Urobilinogen Urine Negative (Negative); WBC Urine Automated >30 /hpf (0-5)
[2022-09-01 03:23] LABS: Thyroid Stimulating Hormone 6.452 uIu/ml (0.300-4.500)
--- NOTE | 2022-09-01 03:48 | History & Physical Report ---
Date of Service September 01, 2022 Assessment & Plan (1) Increased ammonia level: Plan: 67 M with PMH HEATON + liver cirrhosis, CKD, GAVE + esophageal varices, and depression, who presented to the emergency room with elevated serum ammonia. Admitted for supervision, with serum ammonia now back to normal. Increased ammonia level -Acute on chronic elevation in the setting of Heaton cirrhosis. Likely due to nonadherence, as patient admits on admission. -Ammonia elevated at 79 at outpatient clinic. Recheck already appears to be at goal at 47. -Patient already appears A&O x4 on admission, with good awareness/insight. Resting hand tremor noted on exam. * Admitted to Medr telemetry * Continue home lactulose, rifaximin. Trend clinically for signs of confusion/altered mental status. * Nephrology consulted. Appreciate recs. 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 -Chronic; managed on home lactulose, rifaximin. Patient self admits to poor adherence at home. -MELD score: 29 points (76.5% estimated 90-day survival). * Home lactulose, rifaximin, as above. Continue home midodrine * Paracentesis ordered. However, notified by IR US that paracentesis not usually done on weekends unless radiologist personally notified and agrees to perform/supervise procedure. * IV Rocephin 2 g already ordered, to be administered after paracentesis completed. Time of first dose tentatively scheduled to be given at 9 AMrecommend day team continue/hold at own discretion with respect to paracentesis. Macrocytic anemia -Chronic. Symptomatic. Patient has received multiple transfusions before. -Vitamin B12 level obtained last month within normal limits 562. Sharp decrease from 2 months prior 1387. -S/p packed red blood cells x1 unit. * Trend CBC * Continue home vitamin B complex Depression -Chronic; managed on paroxetine 10 mg every afternoon at home. * Continue home paroxetine. Peripheral edema -Chronic; managed on spironolactone at home. * Holding diuretic at this time due to CKD. Defer further management to nephrology. Code: DNR/DNI Dispo: Med-Surg telemetry FEN/GI: NPO. DVT Prophylaxis: PT/OT: Yes Consults: Nephrology Case Management: No (2) 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: (3) Peripheral edema: (4) Leg swelling: (5) Macrocytic anemia: History of Present Illness Primary Care Provider: Fiorella CastellanoDO Cortes is a 67-year-old man with a past medical history of GAVE with GI bleed/esophageal varices/anemia, HEATON with cirrhosis, paroxysmal SVT, thrombocytopenia, and CKD who presented to the emergency room from home after presenting to his outpatient nephrology clinic visit with altered mental status and found to have hyperammonemia of 79. Patient is unable to recall the last 24 hours but his son, who is at bedside provides corroborating information. Son noticed that was starting to sound altered over the phone on , 08/30. He called the following morning to check on his father but he had already driven himself to his nephrology clinic appointment with Dr. Martinez. According to the son, Dr. Martinez called patient personally to let him know that the patient sounded altered and that he had instructed the patient to drive himself to the emergency room he refused. Son confirms that that drove himself home instead. Son then brought dad to the ED. Patient took his lactulose today, though he admits on admission to poor adherence. In the ED, vitals were stable/within normal limits. Labs were notable for hemoglobin of 6.3, creatinine of 2.53, TSH of 6.452, and magnesium of 1.5. Repeat ammonia was significantly improved at 47. He received 1 unit of packed red blood cells and hospitalist was contacted for admission. ROS + dizziness, nausea, RUQ pain, shortness of breath, palpitations, and diarrhea (which he says he has at baseline). He denies chest pain, headache, vomiting dysuria, or vomiting. Allergies Allergy/AdvReac Type Severity Reaction Status Date / Time tamsulosin Allergy Intermediate HIVES Verified 08/13/22 16:20 etanercept [From Enbrel] AdvReac Intermediate Increased Verified 08/13/22 16:20 infections Home Medications Medication Instructions Recorded Confirmed Type cholecalciferol (vitamin D3) 50 50 mcg PO QAM #90 caps 05/15/21 08/27/22 Rx mcg (2,000 unit) capsule vitamin B complex 1 tab PO DAILY 10/23/21 08/27/22 History rifaximin 550 mg tablet (Xifaxan) 550 mg PO BID #60 tabs 01/16/22 08/27/22 Rx darbepoetin coretta in polysorbat 100 100 mcg subcut .COMPLEX PRN 05/23/22 08/27/22 History mcg/0.5 mL in polysorbate NEEDED injection syringe paroxetine HCl 10 mg tablet 10 mg PO QPM 06/21/22 08/27/22 History midodrine 10 mg tablet 10 mg PO TID #90 tabs 07/21/22 08/27/22 Rx spironolactone 50 mg tablet 50 mg PO BID #60 tabs 07/21/22 08/27/22 Rx sucralfate 100 mg/mL oral 10 ml PO ACHS #1,000 mL 07/21/22 08/27/22 Rx suspension ondansetron HCl 4 mg tablet 4 mg PO Q8H PRN Nausea And 08/08/22 08/27/22 Rx Vomiting #30 tabs pantoprazole 40 mg tablet,delayed 40 mg PO BID #60 tabs 08/08/22 08/27/22 Rx release lactulose 10 gram/15 mL oral 20 g (30 mL) PO DAILY #946 mL 08/10/22 08/27/22 Rx solution Past Med/Surg History Medical History Anemia Ascites Calculus of kidney Cervical disc disease CKD (chronic kidney disease), stage III Depression Esophageal varices determined by endoscopy GAVE (gastric antral vascular ectasia) Per records GERD (gastroesophageal reflux disease) History of GI bleed discharged from [facility] 06/10/22: borderline hemorrhagic shock-upper GI bleed suspected to be d/t GAVE-received 1 unit of PRBC History of herniated intervertebral disc lumbar area History of SCC (squamous cell carcinoma) of skin S/p removal- follows with derm Hx of blood clots 06/2021 @ [facility]- pt reports blood clot in left arm around IV site after being discharged from hospital- no meds due to current blood loss issue- warm compresses to site per pt- 2 ultrasounds done - no current issues Hx of upper gastrointestinal hemorrhage recent hospitalization at [facility] 06/07/2022 Hyperkalemia Hypothyroidism 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 current work-up for planned liver transplant per [facility] transplant clinic records Lumbar disc disease Oral mucositis On mouthwash daily- no recent issues Pancytopenia Portal hypertensive gastropathy Post-traumatic urethral stricture Psoriasis Psoriatic arthritis PVT (portal vein thrombosis) denies Spinal stenosis EPIDURAL INJECTIONS IN PAST FOR PAIN RELIEF TMJ arthralgia Urinary retention Urinary tract infection Wide-complex tachycardia ON CARDVEDILOL-F/U DR VANESSA LAST VISIT<1 YR AGO Surgical History H/O foot surgery excision of neuroma b/l feet History of appendectomy History of arthroscopy RT KNEE History of cataract surgery RT/LEFT History of cholecystectomy History of esophagogastroduodenoscopy (EGD) last 03/21/22 @ [facility] 02/08/22 Dr. Sara Cloud- EGD- Grade I esophageal varices, Portal hypertensive gastropathy History of herniorrhaphy right inguinal History of lithotripsy History of liver biopsy History of repair of rotator cuff RT/LEFT History of tooth extraction History of urologic surgery Urethral reconstruction 4 years ago at [facility] Nausea and vomiting after administration of anesthetic agent S/P colonoscopy S/P epidural steroid injection S/P orchiectomy Right age 9 for UDT S/P urological surgery (2018) BM urethroplasty-[facility] [place] Suprapubic catheter AND REMOVAL Family History Grandmother (Maternal) Diabetes Father Renal cancer Mother Aortic aneurysm Denies family history of Ovarian cancer Prostate cancer Myocardial infarction Breast cancer Colorectal cancer Social History Smoking Status: Never smoker Second Hand Exposure: No; Do You Dip or Chew Tobacco: No; Hx Alcohol Use: No Hx Substance Use: No Preferred Language: Yoruba Communication Ability: Effective Visual Impairment: No Limitations Hearing Ability: Hard of Hearing [place] Required: No Beliefs That Will Affect Care: None marital status: / Current Living Situation: Family Current Living Situation Comment: Lives with son and [id number] current occupational status: retired How many Children do You have: 1 Other Information That Helps Us Care for You: No Feels Safe at Home: Yes Safety Concerns: Feels Safe At This Time Diet: low salt Diet Comment: LOW SALT caffeine: Yes during the past year weight has: remained stable Dental Care, Regularly: No Physical Activity Frequency: Other Physical Activity Frequency Comment: does all housework/outside work and cuts wood Seatbelt Use: never Sunscreen Use: No Assistive Devices: Cane and Walker Review of Systems Review of Systems: All systems reviewed & are unremarkable except as noted in HPI & below Physical Exam Physical Exam: General: Tired-appearing but otherwise, alert, interactive man in no acute distress. HEENT: Icteric sclerae. Jaundiced face and shoulders. Telangiectatic cheeks. EOM intact. Good conjugate gaze. Nares patent. Moist mucosal membranes. Neck: Supple. No lymphadenopathy. Normal ROM. CV: Irregularly irregular rhythm. No tachycardia. No murmurs gallops or rubs. Respiratory: Normal respiratory effort. Bibasilar crackles. No rhonchi, or wheezes. Abdomen: Soft, distended abdomen with ascites. Diffuse mild tenderness to palpation (greatest at RUQ, LUQ) without guarding or rebound. Extremities: Capillary refill <2 sec. 2+ dp equal bilaterally. Bilateral 1+ pedal edema. Neuro: Alert and oriented x3. Bilateral hand tremor >>R vs L. Skin: Clean, dry, and intact. Multiple ecchymoses of UE bilaterally. Results & Data Results & Data Vital Signs (Past 12 Hours) Vital Signs Temp Pulse Resp BP Pulse Ox O2 Del Method 09/01/22 02:14 99 H 18 95 09/01/22 01:39 36.5 C 114 H 20 121/79 100 Room Air Code Status & VTE Plan VTE Prophylaxis Plan VTE Prophylaxis will be ordered: No Supervising Physician Co-Signing Physician Notes attending addendum: I have physically seen this patient, have supervised the medical residents activities, and agree with the H&P unless as otherwise noted. Assessment and Plan: Symptomatic anemia/GAVE history- 19 transfusions since 05/16 hemoglobin 6.3 on admission Transfuse 1 unit PRBCs, repeat CBC in a.m. Hyperammonemia/liver 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- noncompliance with medications lactulose and rifaximin at home. lactulose and rifaximin as directed [facility] laboratories as noted paracentesis ordered. No antibiotics at this time reports he is now on liver transplant list COLLIN on CKD- creatinine 2.53, with base 1.88-2.34 Repeat after transfusions temporarily hold spironolactone remaining orders and notations as noted Resident Activity Tracking Resident Involvement: Resident Care Provided Care Provided: Adult [facility]
[2022-09-01 04:13] LABS: Phosphorus 2.6 mg/dl (2.5-4.9)
--- NOTE | 2022-09-01 04:20 | Emergency Department Note ---
Impression & Plan Acute upper gastrointestinal bleeding, Anemia, Cirrhosis of liver ED Provider Note CHIEF COMPLAINT: Abnormal labs HISTORY OF PRESENT ILLNESS: This 67 yo male patient with history of VRE, UTI, sepsis, upper GI bleed/esophageal varices, cirrhosis of the liver, paroxysmal SVT, thrombocytopenia presents to the emergency department with complaints of abnormal laboratory work and altered mentation. Patient's son states he was quite altered earlier today. Dr. Martini of nephrology sent the patient into the emergency department for evaluation due to an elevated ammonia level at 78. Patient does take lactulose did so today. His son states during his confused state he was incontinent of stool which was black and tarry. Patient denies any recent falls, head injuries. He is not anticoagulated. Son denies any cough, fever or vomiting. REVIEW OF SYSTEMS: A review of systems was performed with positives and pertinent negatives listed in the history of present illness. 10 systems were r eviewed and are otherwise negative. ALLERGIES: see below MEDICATIONS: see below PMH: see below SOCIAL HISTORY: see below DDx: UTI, pneumonia, dehydration, hyperammonemia, hypo/hyperglycemia, electrolyte disturbance, anemia, hypoxia, dysrhythmia, intracerebral event, toxicologic, as well as other pathologies. PHYSICAL EXAM: Vital signs reviewed. General: Chronically ill-appearing 67-year-old male, in no significant distress. HEENT: No scleral icterus, PERRLA, neck supple. Pale conjunctiva Cardiovascular: Slightly tachycardic but regular, no extra sounds. Pulmonary: Clear to auscultation bilaterally, normal work of breathing. Abdomen: Soft, nontender, nondistended, positive bowel sounds. Musculoskeletal: Atraumatic, mild peripheral edema. GI: Normal rectal mucosa, guaiac positive dark brown stool. Neurologic: Patient awake alert and oriented x 3, speech is clear. Follows comm ands Skin: Warm, dry, no rash EMERGENCY DEPARTMENT COURSE/MDM: This patient was evaluated and appeared to be in no significant distress. IV access was obtained and laboratory work was drawn. The patient was placed on the monitor and storage bin tender noted to be in a normal sinus rhythm. He was hydrated with normal saline solution. Laboratory work reveals anemia, more significant than just 1 day ago with a hemoglobin of 6.3. A stool guaiac was performed and is positive with a liquidy brown stool. UA is concerning for infection will be sent for culture as it is also contaminated. Patient has remained hemodynamically stable but with his history of liver disease, esophageal varices, GI bleed and now repeat GI bleed, patient will need to be hospitalized for further management. He was typed and crossed for 2 units of PRBCs to transfuse. Patient was consented for blood transfusion and agrees with the plan for admission. His son was at the bedside. Case was discussed with the hospitalist service who will evaluate the patient for admission and further management. MONITORING: An order for cardiac monitoring was placed and the patient is noted to be in a normal sinus rhythm at 94 beats per minute. RADIOLOGY: Chest x-ray to my interpretation reveals evidence of mild cardiomegaly, otherwise clear without evidence of pulmonary infiltrate. EKG: To my interpretation reveals a sinus rhythm with premature supraventricular complex at 100 bpm. Low voltage QRS. QTc of 443. When compared to previous dated August 13, 2022, premature supraventricular complexes are new. DISPOSITION: Admission I have personally spent 40 minutes of critical care time in the direct management of this patient. This was a life/limb threatening event. This 40 minutes is in excess of all separately billable procedures. Past Med/Surg History Medical History Anemia Ascites Calculus of kidney Cervical disc disease CKD (chronic kidney disease), stage III Depression Esophageal varices determined by endoscopy GAVE (gastric antral vascular ectasia) Per records GERD (gastroesophageal reflux disease) History of GI bleed discharged from [facility] 06/10/22: borderline hemorrhagic shock-upper GI bleed suspected to be d/t GAVE-received 1 unit of PRBC History of herniated intervertebral disc lumbar area History of SCC (squamous cell carcinoma) of skin S/p removal- follows with derm Hx of blood clots 06/2021 @ [facility]- pt reports blood clot in left arm around IV site after being discharged from hospital- no meds due to current blood loss issue- warm compresses to site per pt- 2 ultrasounds done - no current issues Hx of upper gastrointestinal hemorrhage recent hospitalization at [facility] 06/07/2022 Hyperkalemia Hypothyroidism 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 current work-up for planned liver transplant per [facility] transplant clinic records Lumbar disc disease Oral mucositis On mouthwash daily- no recent issues Pancytopenia Portal hypertensive gastropathy Post-traumatic urethral stricture Psoriasis Psoriatic arthritis PVT (portal vein thrombosis) denies Spinal stenosis EPIDURAL INJECTIONS IN PAST FOR PAIN RELIEF TMJ arthralgia Urinary retention Urinary tract infection Wide-complex tachycardia ON CARDVEDILOL-F/U DR VANESSA LAST VISIT<1 YR AGO Surgical History H/O foot surgery excision of neuroma b/l feet History of appendectomy History of arthroscopy RT KNEE History of cataract surgery RT/LEFT History of cholecystectomy History of esophagogastroduodenoscopy (EGD) last 03/21/22 @ [facility] 02/08/22 Dr. Sara Cloud- EGD- Grade I esophageal varices, Portal hypertensive gastropathy History of herniorrhaphy right inguinal History of lithotripsy History of liver biopsy History of repair of rotator cuff RT/LEFT History of tooth extraction History of urologic surgery Urethral reconstruction 4 years ago at [facility] Nausea and vomiting after administration of anesthetic agent S/P colonoscopy S/P epidural steroid injection S/P orchiectomy Right age 9 for UDT S/P urological surgery (2018) BMG urethroplasty-[facility] Suprapubic catheter AND REMOVAL Family History Grandmother (Maternal) Diabetes Father Renal cancer Mother Aortic aneurysm Denies family history of Ovarian cancer Prostate cancer Myocardial infarction Breast cancer Colorectal cancer Social History Smoking Status: Never smoker Second Hand Exposure: No; Do You Dip or Chew Tobacco: No; Hx Alcohol Use: No Hx Substance Use: No Preferred Language: Mohawk Communication Ability: Effective Visual Impairment: No Limitations Hearing Ability: Hard of Hearing Director [employer] Required: No Beliefs That Will Affect Care: None marital status: / Current Living Situation: Family Current Living Situation Comment: Lives with son and [id number] current occupational status: retired How many Children do You have: 1 Other Information That Helps Us Care for You: No Feels Safe at Home: Yes Safety Concerns: Feels Safe At This Time Diet: low salt Diet Comment: LOW SALT caffeine: Yes during the past year weight has: remained stable Dental Care, Regularly: No Physical Activity Frequency: Other Physical Activity Frequency Comment: does all housework/outside work and cuts wood Seatbelt Use: never Sunscreen Use: No Assistive Devices: Cane and Walker Allergies Allergies Allergy/AdvReac Type Severity Reaction Status Date / Time tamsulosin Allergy Intermediate HIVES Verified 08/13/22 16:20 etanercept [From Enbrel] AdvReac Intermediate Increased Verified 08/13/22 16:20 infections Home Meds Home Medications Medication Instructions Recorded Confirmed vitamin B complex 1 tab PO DAILY 10/23/21 08/27/22 darbepoetin coretta in polysorbat 100 100 mcg subcut .COMPLEX PRN 05/23/22 08/27/22 mcg/0.5 mL in polysorbate NEEDED injection syringe paroxetine HCl 10 mg tablet 10 mg PO QPM 06/21/22 08/27/22 Previous Rx's Medication Instructions Recorded cholecalciferol (vitamin D3) 50 50 mcg PO QAM #90 caps 05/15/21 mcg (2,000 unit) capsule rifaximin 550 mg tablet (Xifaxan) 550 mg PO BID #60 tabs 01/16/22 midodrine 10 mg tablet 10 mg PO TID #90 tabs 07/21/22 spironolactone 50 mg tablet 50 mg PO BID #60 tabs 07/21/22 sucralfate 100 mg/mL oral 10 ml PO ACHS #1,000 mL 07/21/22 suspension ondansetron HCl 4 mg tablet 4 mg PO Q8H PRN Nausea And 08/08/22 Vomiting #30 tabs pantoprazole 40 mg tablet,delayed 40 mg PO BID #60 tabs 08/08/22 release lactulose 10 gram/15 mL oral 20 g (30 mL) PO DAILY #946 mL 08/10/22 solution Results & Data (ED) Vital Signs Vital Signs - 24 hr 09/01/22 01:39 09/01/22 02:14 09/01/22 02:35 Temperature 36.5 C Temperature Source Temporal Artery Scan Pulse Rate 114 H 99 H 96 H Respiratory Rate 20 18 Respiratory Effort / Characteristics Non-Labored Spontaneous Respiratory Depth Normal Blood Pressure 121/79 Blood Pressure Mean 93 Pulse Oximetry 100 95 Oxygen Delivery Method Room Air Sepsis Recent Fever Within 48 Hours No Sepsis New/Unexplained Change in Mental Status No Sepsis Action Taken by Nursing No Action Required Home Medications Current Medication List: was personally reviewed by me Laboratory Data Attestation: I reviewed the patient's lab results. 09/01/22 02:36 09/01/22 02:36 Lab Results 09/01/22 09/01/22 09/01/22 Range/Units 02:36 02:36 02:36 WBC (4.8-10.8) K/ul RBC (4.70-6.10) M/uL Hgb (14.0-18.0) g/dl Hct (42.0-52.0) % MCV (80.0-100.0) fL MCH (25.0-34.0) pg MCHC (32.0-36.0) g/dL RDW Std Deviation (36.4-46.3) fL RDW Coeff of Miguel (11.5-14.5) % Plt Count (130-400) K/uL MPV (9.4-12.4) fL Immature Gran % (Auto) % Neut % (Auto) % Lymph % (Auto) % [place] % (Auto) % Eos % (Auto) % Baso % (Auto) % Neut # (Auto) (1.40-6.50) K/uL Lymph # (Auto) (1.2-3.4) K/uL [place] # (Auto) (0.11-0.59) K/uL Eos # (Auto) (0-0.50) K/uL Baso # (Auto) (0-0.2) K/uL Immature Gran # (Auto) (0.01-0.20) K/uL Polychromasia Hypochromasia Anisocytosis PT 17.6 H (9.0-12.0) Seconds INR 1.7 H (0.9-1.1) Sodium 135 L (136-145) mmol/L Potassium 4.3 (3.5-5.1) mmol/L Chloride 108 H (98-107) mmol/L Carbon Dioxide 21 (21-32) mmol/L Anion Gap 6 (3-11) BUN 33 H (6-23) mg/dl Creatinine 2.53 H (0.6-1.4) mg/dl Est Cr Clr Drug Dosing Not Reportable Est GFR ( Amer) 29.1 ml/min Est GFR (Non-Af Amer) 25.1 ml/min BUN/Creatinine Ratio 13.0 (10-20) Glucose 161 H (70-99(Fasting)) mg/dl Calcium 9.7 (8.6-10.3) mg/dl Phosphorus 2.6 (2.5-4.9) mg/dl Magnesium 1.5 L (1.7-2.4) mg/dl Total Bilirubin 4.7 H (0.2-1.0) mg/dl AST 35 (13-39) U/L ALT 19 (7-52) U/L Alkaline Phosphatase 114 H (34-104) U/L Ammonia 47.0 (18-72) umol/L Troponin I High Sens 11.1 (0-20) pg/ml Total Protein 5.6 L (6.0-8.3) gm/dl Albumin 2.6 L (3.4-5.0) gm/dl Globulin 3.0 (2.5-4.0) gm/dl Albumin/Globulin Ratio 0.9 (0.9-2) TSH (0.300-4.500) uIu/ml Free T4 (0.61-1.60) ng/dl Urine Color Urine Appearance (Clear) Urine pH (4.5-7.5) Ur Specific [place] (1.000-1.030) Urine Protein (Negative) Urine Glucose (UA) (Negative) Urine Ketones (Negative) Urine Blood (Negative) Urine Nitrite (Negative) Urine Bilirubin (Negative) Urine Urobilinogen (Negative) Ur Leukocyte Esterase (Negative) Urine WBC (Auto) (0-5) /hpf Urine RBC (Auto) (0-4) /hpf U Hyaline Cast (Auto) (0-5) /lpf U Epithel Cells (Auto) (0-5) /lpf Urine Bacteria (Auto) (Negative) SARS-CoV-2, RNA, NAAT (NEGATIVE) 09/01/22 09/01/22 09/01/22 Range/Units 02:36 02:36 02:43 WBC 5.10 (4.8-10.8) K/ul RBC 1.72 L (4.70-6.10) M/uL Hgb 6.3 L* (14.0-18.0) g/dl Hct 18.8 L* (42.0-52.0) % MCV 109.3 H (80.0-100.0) fL MCH 36.6 H (25.0-34.0) pg MCHC 33.5 (32.0-36.0) g/dL RDW Std Deviation 91.0 H (36.4-46.3) fL RDW Coeff of Miguel 23.1 H (11.5-14.5) % Plt Count 54 L (130-400) K/uL MPV 10.5 (9.4-12.4) fL Immature Gran % (Auto) 0.4 % Neut % (Auto) 73.1 % Lymph % (Auto) 12.4 % Mcnairy % (Auto) 10.4 % Eos % (Auto) 3.1 % Baso % (Auto) 0.6 % Neut # (Auto) 3.73 (1.40-6.50) K/uL Lymph # (Auto) 0.63 L (1.2-3.4) K/uL [place] # (Auto) 0.53 (0.11-0.59) K/uL Eos # (Auto) 0.16 (0-0.50) K/uL Baso # (Auto) 0.03 (0-0.2) K/uL Immature Gran # (Auto) 0.02 (0.01-0.20) K/uL Polychromasia 1+ Hypochromasia Present Anisocytosis Present PT (9.0-12.0) Seconds INR (0.9-1.1) Sodium (136-145) mmol/L Potassium (3.5-5.1) mmol/L Chloride (98-107) mmol/L Carbon Dioxide (21-32) mmol/L Anion Gap (3-11) BUN (6-23) mg/dl Creatinine (0.6-1.4) mg/dl Est Cr Clr Drug Dosing Est GFR ( Amer) ml/min Est GFR (Non-Af Amer) ml/min BUN/Creatinine Ratio (10-20) Glucose (70-99(Fasting)) mg/dl Calcium (8.6-10.3) mg/dl Phosphorus (2.5-4.9) mg/dl Magnesium (1.7-2.4) mg/dl Total Bilirubin (0.2-1.0) mg/dl AST (13-39) U/L ALT (7-52) U/L Alkaline Phosphatase (34-104) U/L Ammonia (18-72) umol/L Troponin I High Sens (0-20) pg/ml Total Protein (6.0-8.3) gm/dl Albumin (3.4-5.0) gm/dl Globulin (2.5-4.0) gm/dl Albumin/Globulin Ratio (0.9-2) TSH 6.452 H (0.300-4.500) uIu/ml Free T4 0.39 L (0.61-1.60) ng/dl Urine Color Urine Appearance (Clear) Urine pH (4.5-7.5) Ur Specific [place] (1.000-1.030) Urine Protein (Negative) Urine Glucose (UA) (Negative) Urine Ketones (Negative) Urine Blood (Negative) Urine Nitrite (Negative) Urine Bilirubin (Negative) Urine Urobilinogen (Negative) Ur Leukocyte Esterase (Negative) Urine WBC (Auto) (0-5) /hpf Urine RBC (Auto) (0-4) /hpf U Hyaline Cast (Auto) (0-5) /lpf U Epithel Cells (Auto) (0-5) /lpf Urine Bacteria (Auto) (Negative) SARS-CoV-2, RNA, NAAT NEGATIVE (NEGATIVE) 09/01/22 Range/Units 03:03 WBC (4.8-10.8) K/ul RBC (4.70-6.10) M/uL Hgb (14.0-18.0) g/dl Hct (42.0-52.0) % MCV (80.0-100.0) fL MCH (25.0-34.0) pg MCHC (32.0-36.0) g/dL RDW Std Deviation (36.4-46.3) fL RDW Coeff of Miguel (11.5-14.5) % Plt Count (130-400) K/uL MPV (9.4-12.4) fL Immature Gran % (Auto) % Neut % (Auto) % Lymph % (Auto) % [place] % (Auto) % Eos % (Auto) % Baso % (Auto) % Neut # (Auto) (1.40-6.50) K/uL Lymph # (Auto) (1.2-3.4) K/uL [place] # (Auto) (0.11-0.59) K/uL Eos # (Auto) (0-0.50) K/uL Baso # (Auto) (0-0.2) K/uL Immature Gran # (Auto) (0.01-0.20) K/uL Polychromasia Hypochromasia Anisocytosis PT (9.0-12.0) Seconds INR (0.9-1.1) Sodium (136-145) mmol/L Potassium (3.5-5.1) mmol/L Chloride (98-107) mmol/L Carbon Dioxide (21-32) mmol/L Anion Gap (3-11) BUN (6-23) mg/dl Creatinine (0.6-1.4) mg/dl Est Cr Clr Drug Dosing Est GFR ( Amer) ml/min Est GFR (Non-Af Amer) ml/min BUN/Creatinine Ratio (10-20) Glucose (70-99(Fasting)) mg/dl Calcium (8.6-10.3) mg/dl Phosphorus (2.5-4.9) mg/dl Magnesium (1.7-2.4) mg/dl Total Bilirubin (0.2-1.0) mg/dl AST (13-39) U/L ALT (7-52) U/L Alkaline Phosphatase (34-104) U/L Ammonia (18-72) umol/L Troponin I High Sens (0-20) pg/ml Total Protein (6.0-8.3) gm/dl Albumin (3.4-5.0) gm/dl Globulin (2.5-4.0) gm/dl Albumin/Globulin Ratio (0.9-2) TSH (0.300-4.500) uIu/ml Free T4 (0.61-1.60) ng/dl Urine Color Yellow Urine Appearance Cloudy A (Clear) Urine pH 6.0 (4.5-7.5) Ur Specific [place] 1.016 (1.000-1.030) Urine Protein Trace H (Negative) Urine Glucose (UA) Negative (Negative) Urine Ketones Negative (Negative) Urine Blood 2+ H (Negative) Urine Nitrite Positive A (Negative) Urine Bilirubin Negative (Negative) Urine Urobilinogen Negative (Negative) Ur Leukocyte Esterase 2+ H (Negative) Urine WBC (Auto) >30 H (0-5) /hpf Urine RBC (Auto) 10-30 H (0-4) /hpf U Hyaline Cast (Auto) 1-5 (0-5) /lpf U Epithel Cells (Auto) 20-30 H (0-5) /lpf Urine Bacteria (Auto) 4+ H (Negative) SARS-CoV-2, RNA, NAAT (NEGATIVE) Administered Medications Ceftriaxone Sodium 2,000 mg/ (Dextrose) 70 mls @ 100 mls/hr IV Q24H LUZ; Protocol Stop: 09/11/22 09:29 Last Infusion: 09/01/22 13:40 Dose: 0 mls/hr Documented By: Admin: 09/01/22 12:31 Dose: 100 mls/hr Documented By: DISHA Pantoprazole Sodium 40 mg/ (Dextrose) 100 mls @ 20 mls/hr IV Q5H LUZ Stop: 10/01/22 12:29 Last Admin: 09/02/22 04:16 Dose: 8 mg/hr, 20 mls/hr Documented By: Infusion: 09/02/22 04:16 Dose: 8 mg/hr, 20 mls/hr Documented By: Admin: 09/01/22 23:20 Dose: 8 mg/hr, 20 mls/hr Documented By: Infusion: 09/01/22 23:20 Dose: 8 mg/hr, 20 mls/hr Documented By: Admin: 09/01/22 18:29 Dose: 8 mg/hr, 20 mls/hr Documented By: Infusion: 09/01/22 18:10 Dose: 0 mg/hr, 0 mls/hr Documented By: Infusion: 09/01/22 16:48 Dose: 8 mg/hr, 20 mls/hr Documented By: Admin: 09/01/22 14:00 Dose: 8 mg/hr, 20 mls/hr Documented By: DISHA Lactulose (Lactulose Syrup 20 Gm/30 Ml Udc) 20 gm PO DAILY LUZ Stop: 10/01/22 08:59 Last Admin: 09/01/22 08:57 Dose: 20 gm Documented By: DISHA Midodrine (Midodrine Hcl 10 Mg Tab) 10 mg PO TID@0800,1200,1600 LUZ Stop: 10/01/22 07:59 Last Admin: 09/01/22 17:00 Dose: 10 mg Documented By: Admin: 09/01/22 12:31 Dose: 10 mg Documented By: Admin: 09/01/22 08:58 Dose: 10 mg Documented By: DISHA Ondansetron HCl (Ondansetron Inj 2 Mg/Ml 2 Ml Vial) 4 mg IV Q6H PRN PRN Reason: Nausea And Vomiting Stop: 10/01/22 05:00 Last Admin: 09/01/22 19:49 Dose: 4 mg Documented By: Admin: 09/01/22 05:12 Dose: 4 mg Documented By: [id number] Paroxetine HCl (Paroxetine Hcl 10 Mg Tab) 10 mg PO QPM [facility] Stop: 10/01/22 20:59 Last Admin: 09/01/22 19:43 Dose: 10 mg Documented By: MELE Rifaximin (Rifaximin 550 Mg Tablet) 550 mg PO BID [facility] Stop: 10/01/22 08:59 Last Admin: 09/01/22 19:43 Dose: 550 mg Documented By: Admin: 09/01/22 08:58 Dose: 550 mg Documented By: DISHA Spironolactone (Spironolactone 25 Mg Tab) 50 mg PO BID@0900,1400 [facility] Stop: 10/01/22 08:59 Last Admin: 09/01/22 14:00 Dose: 50 mg Documented By: Admin: 09/01/22 08:58 Dose: 50 mg Documented By: DISHA Sucralfate (Sucralfate 1 Gm/10 Ml Udc) 1 gm PO ACHS [facility] Stop: 10/01/22 07:29 Last Admin: 09/01/22 19:43 Dose: 1 gm Documented By: Admin: 09/01/22 17:00 Dose: 1 gm Documented By: Admin: 09/01/22 12:32 Dose: 1 gm Documented By: Admin: 09/01/22 08:57 Dose: 1 gm Documented By: DISHA Vitamin B Complex (Vitamin B Complex Tab) 1 tab PO DAILY LUZ Stop: 10/01/22 08:59 Last Admin: 09/01/22 08:58 Dose: 1 tab Documented By: DISHA Vitamin D (Cholecalciferol 1,000 Units 25 Mcg Tab) 2,000 units PO QAM LUZ Stop: 10/01/22 08:59 Last Admin: 09/01/22 08:57 Dose: 2,000 units Documented By: DISHA Discontinued Medications Magnesium Sulfate/Dextrose (Magnesium Sulfate / D5w) 1 gm in 100 mls @ 200 mls/hr IV Q30M LUZ Stop: 09/01/22 04:28 Last Infusion: 09/01/22 11:30 Dose: 0 mls/hr Documented By: Admin: 09/01/22 10:20 Dose: 100 mls/hr Documented By: Infusion: 09/01/22 09:41 Dose: 0 mls/hr Documented By: Admin: 09/01/22 08:57 Dose: 200 mls/hr Documented By: DISHA Pantoprazole Sodium 80 mg/ (Dextrose) 120 mls @ 400 mls/hr IV NOW ONE Stop: 09/01/22 12:32 Last Infusion: 09/01/22 14:20 Dose: 0 mls/hr Documented By: Admin: 09/01/22 14:00 Dose: 400 mls/hr Documented By: DISHA Prochlorperazine 5 mg/ Syringe 5 mls @ 5 mls/min IV ONE ONE Stop: 09/01/22 22:01 Last Admin: 09/01/22 22:08 Dose: 5 mls/min Documented By: MELE Ondansetron HCl (Ondansetron Inj 2 Mg/Ml 2 Ml Vial) Confirm Administered Dose 4 mg .ROUTE .STK-MED ONE Stop: 09/01/22 05:10 Last Admin: 09/01/22 05:12 Dose: Not Given Documented By: [id number] Imaging Data Radiologist's Impression: Chest X-Ray 09/01/22 02:12 XR chest 1V portable HISTORY: 67 years-old Male weakness acute weakness COMPARISON: 08/13/2022 TECHNIQUE: AP view of the chest FINDINGS: Cardiomediastinal and hilar silhouettes are unchanged. No pneumothorax, pleural effusion, airspace consolidation or pulmonary edema. Degenerative changes of the shoulders and spine. IMPRESSION: No acute process. ACT 112: Negative or not required by law. The above report was generated using voice recognition software. It may contain grammatical, syntax or spelling errors. Electronically signed by: Alan Espino M.D. 09/01/2022 7:43 AM Discharge Plan Visit Data Chief Complaint: Abnormal Labs/Diagnostic Testing Stated Complaint: REF BY DR NORMAN, [facility] Provider: Lili Cruz Discharge Problem: Acute upper gastrointestinal bleeding, Anemia, Cirrhosis of liver Patient Disposition: Admitted As Inpatient Discharge Instructions Interventions: ED Discharge Assessment Last Done: 09/01/22 04:58
[2022-09-01 04:39] LABS: Anisocytosis Present; Basophils # (auto) 0.03 K/uL (0-0.2); Basophils % (auto) 0.6 %; Eosinophils # (auto) 0.16 K/uL (0-0.50); Eosinophils % (auto) 3.1 %; Hypochromasia Present; Immature Granulocytes # (auto) 0.02 K/uL (0.01-0.20); Immature Granulocytes % (auto) 0.4 %; Lymphocytes # (auto) 0.63 K/uL (1.2-3.4); Lymphocytes % (auto) 12.4 %; Monocytes # (auto) 0.53 K/uL (0.11-0.59); Monocytes % (auto) 10.4 %; Neutrophils # (auto) 3.73 K/uL (1.40-6.50); Neutrophils % (auto) 73.1 %; Polychromasia 1+
[2022-09-01 04:44] LABS: T4 Free Thyroxine 0.39 ng/dl (0.61-1.60)
[2022-09-01] MEDS ORDERED: ONDANSETRON INJ 2 MG/ML 2 ML VIAL ONE (05:09)
[2022-09-01] MEDS: ONDANSETRON INJ 2 MG/ML 2 ML VIAL IV PRN ×2 (05:12→19:49)
--- NOTE | 2022-09-01 07:17 | Electrocardiogram Report ---
Test Reason : Blood Pressure : / mmHG Vent. Rate : 100 BPM Atrial Rate : 100 BPM P-R Int : 164 ms QRS Dur : 084 ms QT Int : 344 ms P-R-T Axes : 036 -13 024 degrees QTc Int : 443 ms Sinus rhythm with Premature supraventricular complexes Low voltage QRS Borderline ECG When compared with ECG of 13-AUG-2022 12:14, Premature supraventricular complexes are now Present Confirmed by Franklyn Hartman ([id number]) on 09/01/2022 7:17:28 AM Referred By: Finn Martinez Confirmed By:Juan Hartman
--- NOTE | 2022-09-01 07:44 | XRay Report ---
XR chest 1V portable HISTORY: 67 years-old Male weakness acute weakness COMPARISON: 08/13/2022 TECHNIQUE: AP view of the chest FINDINGS: Cardiomediastinal and hilar silhouettes are unchanged. No pneumothorax, pleural effusion, airspace co nsolidation or pulmonary edema. Degenerative changes of the shoulders and spine. IMPRESSION: No acute process. ACT 112: Negative or not required by law. The above report was generated using voice recognition software. It may contain grammatical, syntax o r spelling errors. Electronically signed by: Alan Espino M.D. 09/01/2022 7:43 AM
[2022-09-01] MEDS: MAGNESIUM SULFATE / D5W 1 GM/100 ML BAG IV SCH ×2 (08:57→10:20)
[2022-09-01] MEDS: SUCRALFATE 1 GM/10 ML UDC PO SCH ×4 (08:57→19:43)
[2022-09-01] MEDS: LACTULOSE SYRUP 20 GM/30 ML UDC PO SCH (08:57)
[2022-09-01] MEDS: CHOLECALCIFEROL 1,000 UNITS 25 MCG TAB PO SCH (08:57)
[2022-09-01] MEDS: SPIRONOLACTONE 25 MG TAB PO SCH ×2 (08:58→14:00)
[2022-09-01] MEDS: MIDODRINE HCL 10 MG TAB PO SCH ×3 (08:58→17:00)
[2022-09-01] MEDS: rifAXIMin 550 MG TABLET PO SCH ×2 (08:58→19:43)
[2022-09-01] MEDS: VITAMIN B COMPLEX TAB PO SCH (08:58)
[2022-09-01] MEDS ORDERED: CYANOCOBALAMIN (B-12) 500 MCG TABLET PO SCH (09:00)
--- NOTE | 2022-09-01 10:54 | Nephrology Consultation ---
Date of Consultation September 01, 2022 Assessment & Plan (1) COLLIN (acute kidney injury): (2) Anemia: (3) Acute UTI (urinary tract infection): Plan 67-year-old gentleman with PMH significant for stage IIIB CKD b/l cr 1.5-2 0, cirrhosis with SERRANO, admitted with AMS,anemia, generalized weakness and UTI. initially noted to have high ammonia level which improved, continued on lactulose and rifaximin. Creatinine slightly worsened to 2.5 from 2.3 a week ago, electrolyte acceptable. Albumin 2.7. -- continue current dose of midodrine as BP has been acceptable. -- start on protein supplement. -- ok to the continue spironolactone for now. -- Check aluminum level, if aluminum level high, may need to discontinue Carafate -- dose medications for EGFR less than 30 Thank you for allowing me to participate in your patient's care. It was a pleasure to see Spike. History of Present Illness Reason for Consultation: COLLIN, AMS Attending Physician: Lamine Davis History of Present Illness Mr. Sebastian Quiñonez is a 67 year old male with Past medical history significant for stage IIIB CKD, cirrhosis with portal hypertension, GAVE, admitted to the hospital with AMS, generalized weakness, anemia and UTI. Nephrology consult was requested for further management. EMR records were reviewed in detail during patient's visit. Spike was brought to ER by his son after he was noted to have change in mental status. in ER his vital signs are stable. Labs were notable for hyperammonemia of 79.He has been on lactulose and rifaximin for history of liver cirrhosis but he admits being noncompliant with the lactulose. Initially hemoglobin was 7.3 which dropped to 6.3, creatinine of 2.5, and magnesium of 1.5. Repeat ammonia was significantly improved at 47. currently he is getting 2nd unit of packed red blood cells. Spike had more than 6 ER visit and had 5 hospitalization since March for generalized weakness, fall, anemia with history of GI bleeding and total he received 21 units of PRBC including 2 units today. urinalysis was positive for 4+ blood, urine culture pending, started on ceftriaxone empirically. Last EGD on 08/17/2022 showed GAVE and portal gastropathy and had it APC and clipped. He was continued on Protonix 40 mg twice a day and Carafate. During last hospitalization from 07/13/2022 to 07/28 he also had VRE UTI and bacteremia and continued on daptomycin until 08/28/2022 via a PICC line. Workup at that time was negative for endocarditis or diskitis. He also has history of anasarca and had paracentesis done in May for 2.7 L. Has stage IIIB CKD with quite variable creatinine around 1.5-2.0 secondary to microvascular disease. Urinalysis with no proteinuria. Renal imaging showed asymmetric kidney suggesting some component of renovascular disease. his creatinine was 2.3 on last discharge on 08/24/2022. the Past medical history significant for cirrhosis with SERRANO, last meld score was 28, follows with crop farm helper at [facility] for liver transplant. Other comorbidities include psoriatic arthritis, spinal stenosis, DJD of knee and shoulder, hypertension, recurrent nephrolithiasis, prior history of Lyme disease, history of urethral reconstruction (4 years ago at [facility]). He denies shortness of breath, CP. Denies N/V, diarrhea. Allergies Allergy/AdvReac Type Severity Reaction Status Date / Time tamsulosin Allergy Intermediate HIVES Verified 08/13/22 16:20 etanercept [From Enbrel] AdvReac Intermediate Increased Verified 08/13/22 16:20 infections Home Medications Medication Instructions Recorded Confirmed Type cholecalciferol (vitamin D3) 50 50 mcg PO QAM #90 caps 05/15/21 08/27/22 Rx mcg (2,000 unit) capsule vitamin B complex 1 tab PO DAILY 10/23/21 08/27/22 History rifaximin 550 mg tablet (Xifaxan) 550 mg PO BID #60 tabs 01/16/22 08/27/22 Rx darbepoetin coretta in polysorbat 100 100 mcg subcut .COMPLEX PRN 05/23/22 08/27/22 History mcg/0.5 mL in polysorbate NEEDED injection syringe paroxetine HCl 10 mg tablet 10 mg PO QPM 06/21/22 08/27/22 History midodrine 10 mg tablet 10 mg PO TID #90 tabs 07/21/22 08/27/22 Rx spironolactone 50 mg tablet 50 mg PO BID #60 tabs 07/21/22 08/27/22 Rx sucralfate 100 mg/mL oral 10 ml PO ACHS #1,000 mL 07/21/22 08/27/22 Rx suspension ondansetron HCl 4 mg tablet 4 mg PO Q8H PRN Nausea And 08/08/22 08/27/22 Rx Vomiting #30 tabs pantoprazole 40 mg tablet,delayed 40 mg PO BID #60 tabs 08/08/22 08/27/22 Rx release lactulose 10 gram/15 mL oral 20 g (30 mL) PO DAILY #946 mL 08/10/22 08/27/22 Rx solution Patient History Medical History Anemia Ascites Calculus of kidney Cervical disc disease CKD (chronic kidney disease), stage III Depression Esophageal varices determined by endoscopy GAVE (gastric antral vascular ectasia) Per records GERD (gastroesophageal reflux disease) History of GI bleed discharged from [facility] 06/10/22: borderline hemorrhagic shock-upper GI bleed suspected to be d/t GAVE-received 1 unit of PRBC History of herniated intervertebral disc lumbar area History of SCC (squamous cell carcinoma) of skin S/p removal- follows with derm Hx of blood clots 06/2021 @ [facility]- pt reports blood clot in left arm around IV site after being discharged from hospital- no meds due to current blood loss issue- warm compresses to site per pt- 2 ultrasounds done - no current issues Hx of upper gastrointestinal hemorrhage recent hospitalization at [facility] 06/07/2022 Hyperkalemia Hypothyroidism 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 current work-up for planned liver transplant per [facility] transplant clinic records Lumbar disc disease Oral mucositis On mouthwash daily- no recent issues Pancytopenia Portal hypertensive gastropathy Post-traumatic urethral stricture Psoriasis Psoriatic arthritis PVT (portal vein thrombosis) denies Spinal stenosis EPIDURAL INJECTIONS IN PAST FOR PAIN RELIEF TMJ arthralgia Urinary retention Urinary tract infection Wide-complex tachycardia ON CARDVEDILOL-F/U DR VANESSA LAST VISIT<1 YR AGO Surgical History H/O foot surgery excision of neuroma b/l feet History of appendectomy History of arthroscopy RT KNEE History of cataract surgery RT/LEFT History of cholecystectomy History of esophagogastroduodenoscopy (EGD) last 03/21/22 @ [facility] 02/08/22 Dr. Sara Cloud- EGD- Grade I esophageal varices, Portal hypertensive gastropathy History of herniorrhaphy right inguinal History of lithotripsy History of liver biopsy History of repair of rotator cuff RT/LEFT History of tooth extraction History of urologic surgery Urethral reconstruction 4 years ago at [facility] Nausea and vomiting after administration of anesthetic agent S/P colonoscopy S/P epidural steroid injection S/P orchiectomy Right age 9 for UDT S/P urological surgery (2018) BMG urethroplasty-[facility] Suprapubic catheter AND REMOVAL Family History Grandmother (Maternal) Diabetes Father Renal cancer Mother Aortic aneurysm Denies family history of Ovarian cancer Prostate cancer Myocardial infarction Breast cancer Colorectal cancer Social History Smoking Status: Never smoker Second Hand Exposure: No; Do You Dip or Chew Tobacco: No; Hx Alcohol Use: No Hx Substance Use: No Preferred Language: Stateless Communication Ability: Effective Visual Impairment: No Limitations Hearing Ability: Hard of Hearing Transfer Man Required: No Beliefs That Will Affect Care: None marital status: / Current Living Situation: Family Current Living Situation Comment: Lives with son and [id number] current occupational status: retired How many Children do You have: 1 Other Information That Helps Us Care for You: No Feels Safe at Home: Yes Safety Concerns: Feels Safe At This Time Diet: low salt Diet Comment: LOW SALT caffeine: Yes during the past year weight has: remained stable Dental Care, Regularly: No Physical Activity Frequency: Other Physical Activity Frequency Comment: does all housework/outside work and cuts wood Seatbelt Use: never Sunscreen Use: No Assistive Devices: Cane and Walker Review of Systems Review of Systems: Detail review of system was done and pertinent positives and negatives are mentioned above. Physical Exam Constitutional: WD/WN, vitals as above + ill appearing; no acute distress Eyes: + anicteric sclerae Neck: normal visual inspection Respiratory: no respiratory distress Auscultation: lungs clear to auscultation bilaterally Cardiovascular: Rate/Rhythm: regular rate and regular rhythm Heart Sounds: normal S1 and normal S2 Extremities: + edema Gastrointestinal (Abdomen): Inspection/Auscultation: abdomen normal to inspection and normal bowel sounds Percussion/Palpation: abdomen soft; abdomen nontender Skin: Few bruises, pale Neurologic: no focal motor deficits and not confused Motor/Sensory: + asterixis Psychiatric: Orientation: alert and oriented x 3 Affect: euthymic affect Results & Data Vital Signs (Past 12 Hours) Vital Signs Temp Pulse Pulse Resp BP BP Pulse Ox 09/01/22 10:00 36.5 C 75 16 114/67 100 09/01/22 10:15 36.4 C L 74 15 123/71 100 09/01/22 08:54 36.1 C L 90 16 119/64 96 09/01/22 07:15 36.6 C 98 H 18 121/70 98 09/01/22 06:15 36.6 C 85 18 116/68 99 09/01/22 05:45 36.5 C 76 18 111/69 100 09/01/22 05:45 100 09/01/22 05:30 36.7 C 91 H 20 119/73 100 09/01/22 05:23 86 09/01/22 05:29 36.5 C 91 H 18 121/67 95 09/01/22 05:00 36.9 C 84 18 124/79 99 09/01/22 05:09 36.0 C L 87 18 119/75 100 09/01/22 04:00 98 H 12 132/100 100 09/01/22 03:29 147/71 H 100 09/01/22 03:03 97 H 99 09/01/22 03:03 118/81 09/01/22 03:00 100 H 166/112 H 100 09/01/22 02:43 96 H 14 164/105 H 99 09/01/22 02:35 96 H 26 H 100 09/01/22 02:35 96 H 09/01/22 02:14 99 H 18 95 09/01/22 01:39 36.5 C 114 H 20 121/79 100 O2 Del Method 09/01/22 10:00 09/01/22 10:15 09/01/22 08:54 09/01/22 07:15 09/01/22 06:15 09/01/22 05:45 09/01/22 05:45 Room Air 09/01/22 05:30 09/01/22 05:23 09/01/22 05:29 09/01/22 05:00 Room Air 09/01/22 05:09 09/01/22 04:00 09/01/22 03:29 09/01/22 03:03 09/01/22 03:03 09/01/22 03:00 09/01/22 02:43 09/01/22 02:35 09/01/22 02:35 09/01/22 02:14 09/01/22 01:39 Room Air PG Care Time/CCT Total # of Minutes Spent Total Time Spent with Patient: Total time spent is greater than 50% in coordination of care (as documented) at patient's floor/unit and/or counseling patient: Coding Level of Care Code 04319 OFFICE CONSULT LVL Diagnoses COLLIN (acute kidney injury) N17.9 Anemia D64.9 Acute UTI (urinary tract infection) N39.0
[2022-09-01] MEDS ORDERED: PANTOPRAZOLE BOLUS/DRIP 1 EACH IV STA (11:52)
[2022-09-01] MEDS ORDERED: PANTOprazole 80 MG in DEXTROSE 5% 100 ML IV ONE (12:15)
[2022-09-01] MEDS: cefTRIAXone SODIUM 2,000 MG in DEXTROSE 5% 50 ML IV SCH (12:31)
[2022-09-01] MEDS: PANTOprazole 40 MG in DEXTROSE 5% 100 ML IV SCH ×3 (14:00→23:20)
--- NOTE | 2022-09-01 15:54 | Gastrointestinal Consultation ---
Date of Consultation September 01, 2022 Assessment & Plan (1) Decompensated hepatic cirrhosis: (2) Anemia: Plan worsening anemia: unclear if it's AVM or 2/2 severe PHG, schedule for push enteroscopy tomorrow morning to further evaluate cirrhosis: decompensated by HE and varices in the past, MELD-Na is 28. continue rifaximin BID, lactulose, spironolactone, and midodrine. agree with abx ceftriaxone for possible gi bleed in cirrhotic patient for sepsis ppx. Thank you for allowing me to participate in the care of this patient. History of Present Illness Attending Physician: Lamine Davis History of Present Illness 67 yo male with hx GI bleed, SERRANO cirrhosis decompensated by varices and encephalopathy, SVT, CKD here with confusion and elevated ammonia level. GI consulted also for anemia not responding to transfusion. patient reportedly received 1 unit PRBC and hgb actually dropped to 6.3, has received 2 units now total and VSS. Had EGD x2, flex sig, colonoscopy two weeks ago with [facility] with findings mostly unremarkable except for some possible mild bleeding in the stomach from severe PHG and a bleeding polyp that was tx'd with APC. Denies hematemesis at this time but notes diffuse abdominal cramping pain. was confused prior to admission but now is at baseline, A and O x 3 and no asterixis. labs reviewed. Allergies Allergy/AdvReac Type Severity Reaction Status Date / Time tamsulosin Allergy Intermediate HIVES Verified 08/13/22 16:20 etanercept [From Enbrel] AdvReac Intermediate Increased Verified 08/13/22 16:20 infections Home Medications Medication Instructions Recorded Confirmed Type cholecalciferol (vitamin D3) 50 50 mcg PO QAM #90 caps 05/15/21 08/27/22 Rx mcg (2,000 unit) capsule vitamin B complex 1 tab PO DAILY 10/23/21 08/27/22 History rifaximin 550 mg tablet (Xifaxan) 550 mg PO BID #60 tabs 01/16/22 08/27/22 Rx darbepoetin coretta in polysorbat 100 100 mcg subcut .COMPLEX PRN 05/23/22 08/27/22 History mcg/0.5 mL in polysorbate NEEDED injection syringe paroxetine HCl 10 mg tablet 10 mg PO QPM 06/21/22 08/27/22 History midodrine 10 mg tablet 10 mg PO TID #90 tabs 07/21/22 08/27/22 Rx spironolactone 50 mg tablet 50 mg PO BID #60 tabs 07/21/22 08/27/22 Rx sucralfate 100 mg/mL oral 10 ml PO ACHS #1,000 mL 07/21/22 08/27/22 Rx suspension ondansetron HCl 4 mg tablet 4 mg PO Q8H PRN Nausea And 08/08/22 08/27/22 Rx Vomiting #30 tabs pantoprazole 40 mg tablet,delayed 40 mg PO BID #60 tabs 08/08/22 08/27/22 Rx release lactulose 10 gram/15 mL oral 20 g (30 mL) PO DAILY #946 mL 08/10/22 08/27/22 Rx solution Patient History Medical History Anemia Ascites Calculus of kidney Cervical disc disease CKD (chronic kidney disease), stage III Depression Esophageal varices determined by endoscopy GAVE (gastric antral vascular ectasia) Per records GERD (gastroesophageal reflux disease) History of GI bleed discharged from [facility] 06/10/22: borderline hemorrhagic shock-upper GI bleed suspected to be d/t GAVE-received 1 unit of PRBC History of herniated intervertebral disc lumbar area History of SCC (squamous cell carcinoma) of skin S/p removal- follows with derm Hx of blood clots 06/2021 @ [facility]- pt reports blood clot in left arm around IV site after being discharged from hospital- no meds due to current blood loss issue- warm compresses to site per pt- 2 ultrasounds done - no current issues Hx of upper gastrointestinal hemorrhage recent hospitalization at [facility] 06/07/2022 Hyperkalemia Hypothyroidism 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 current work-up for planned liver transplant per [facility] transplant clinic records Lumbar disc disease Oral mucositis On mouthwash daily- no recent issues Pancytopenia Portal hypertensive gastropathy Post-traumatic urethral stricture Psoriasis Psoriatic arthritis PVT (portal vein thrombosis) denies Spinal stenosis EPIDURAL INJECTIONS IN PAST FOR PAIN RELIEF TMJ arthralgia Urinary retention Urinary tract infection Wide-complex tachycardia ON CARDVEDILOL-F/U DR VANESSA LAST VISIT<1 YR AGO Surgical History H/O foot surgery excision of neuroma b/l feet History of appendectomy History of arthroscopy RT KNEE History of cataract surgery RT/LEFT History of cholecystectomy History of esophagogastroduodenoscopy (EGD) last 03/21/22 @ [facility] 02/08/22 Dr. Sara Cloud- EGD- Grade I esophageal varices, Portal hypertensive gastropathy History of herniorrhaphy right inguinal History of lithotripsy History of liver biopsy History of repair of rotator cuff RT/LEFT History of tooth extraction History of urologic surgery Urethral reconstruction 4 years ago at [facility] Nausea and vomiting after administration of anesthetic agent S/P colonoscopy S/P epidural steroid injection S/P orchiectomy Right age 9 for UDT S/P urological surgery (2018) BM urethroplasty-[facility] Suprapubic catheter AND REMOVAL Family History Grandmother (Maternal) Diabetes Father Renal cancer Mother Aortic aneurysm Denies family history of Ovarian cancer Prostate cancer Myocardial infarction Breast cancer Colorectal cancer Social History Smoking Status: Never smoker Second Hand Exposure: No; Do You Dip or Chew Tobacco: No; Hx Alcohol Use: No Hx Substance Use: No Preferred Language: Croatian Communication Ability: Effective Visual Impairment: No Limitations Hearing Ability: Hard of Hearing Skoog Operator Required: No Beliefs That Will Affect Care: None marital status: / Current Living Situation: Family Current Living Situation Comment: Lives with son and [id number] current occupational status: retired How many Children do You have: 1 Other Information That Helps Us Care for You: No Feels Safe at Home: Yes Safety Concerns: Feels Safe At This Time Diet: low salt Diet Comment: LOW SALT caffeine: Yes during the past year weight has: remained stable Dental Care, Regularly: No Physical Activity Frequency: Other Physical Activity Frequency Comment: does all housework/outside work and cuts wood Seatbelt Use: never Sunscreen Use: No Assistive Devices: Cane and Walker Review of Systems Constitutional: no fever, no chills and no weight loss Eyes: as per Subjective / HPI Ear, Nose, Mouth, Throat: as per Subjective / HPI Respiratory: no dyspnea and no dyspnea on exertion Cardiovascular: no chest pain and no palpitations Gastrointestinal: as per Subjective / HPI Musculoskeletal: no joint pain and no swelling Integumentary: no rash and no lesions Neurologic: no numbness and no paresthesia Psychiatric: no depression and no anxiety Endocrine: no fatigue Hematologic / Lymphatic: no easy bleeding and no easy bruising Physical Exam Constitutional: WD/WN, vitals as above Eyes: EOM intact bilaterally Neck: normal visual inspection Respiratory: normal respiratory effort, lungs clear to auscultation Cardiovascular: RRR, no murmur, no edema Gastrointestinal (Abdomen): Inspection/Auscultation: normal bowel sounds; abdomen not distended Percussion/Palpation: + abdomen tender (mild diffuse tenderness) and abdomen soft; no hepatosplenomegaly Musculoskeletal: Extremities: no cyanosis Gait: normal gait Skin: no rashes, warm and dry Neurologic: moves all extremities Psychiatric: A+Ox3, euthymic affect Results & Data Vital Signs (Past 12 Hours) Vital Signs Temp Pulse Pulse Resp BP BP Pulse Ox 09/01/22 13:15 36.3 C L 65 15 118/73 100 09/01/22 11:15 36.4 C L 72 18 124/69 99 09/01/22 12:15 36.3 C L 72 19 96/56 L 100 09/01/22 11:56 36.4 C L 72 18 124/69 99 09/01/22 10:00 36.5 C 75 16 114/67 100 09/01/22 10:15 36.4 C L 74 15 123/71 100 09/01/22 08:54 36.1 C L 90 16 119/64 96 09/01/22 07:15 36.6 C 98 H 18 121/70 98 09/01/22 06:15 36.6 C 85 18 116/68 99 09/01/22 05:45 36.5 C 76 18 111/69 100 09/01/22 05:45 100 09/01/22 05:30 36.7 C 91 H 20 119/73 100 09/01/22 05:23 86 09/01/22 05:29 36.5 C 91 H 18 121/67 95 09/01/22 05:00 36.9 C 84 18 124/79 99 09/01/22 05:09 36.0 C L 87 18 119/75 100 09/01/22 04:00 98 H 12 132/100 100 O2 Del Method 09/01/22 13:15 09/01/22 11:15 09/01/22 12:15 09/01/22 11:56 Room Air 09/01/22 10:00 09/01/22 10:15 09/01/22 08:54 09/01/22 07:15 09/01/22 06:15 09/01/22 05:45 09/01/22 05:45 Room Air 09/01/22 05:30 09/01/22 05:23 09/01/22 05:29 09/01/22 05:00 Room Air 09/01/22 05:09 09/01/22 04:00 PG Care Time/CCT Total # of Minutes Spent Total Time Spent with Patient: Total time spent is greater than 50% in coordination of care (as documented) at patient's floor/unit and/or counseling patient: Coding Level of Care Code 10177 INT INP/OBS CARE 3/75MIN Diagnoses Decompensated hepatic cirrhosis K72.90; K74.60 Anemia D64.9
[2022-09-01] MEDS: PARoxetine HCL 10 MG TAB PO SCH (19:43)
--- NOTE | 2022-09-01 20:09 | Billing Data ---
Date of Service September 01, 2022 Coding Level of Care Code 20029 INT INP/OBS CARE
--- NOTE | 2022-09-01 21:49 | Hospitalist Progress Note ---
Date of Service September 01, 2022 Assessment & Plan (1) Increased ammonia level: Plan: 67 M with PMH SERRANO + liver cirrhosis, CKD, GAVE + esophageal varices, and depression, who presented to the emergency room with elevated serum ammonia. Admitted for supervision, with serum ammonia now back to normal. Increased ammonia level -Acute on chronic elevation in the setting of Serrano cirrhosis. Likely due to nonadherence, as patient admits on admission. -Ammonia elevated at 79 at outpatient clinic. Recheck already appears to be at goal at 47. -Patient already appears A&O x4 on admission, with good awareness/insight. Resting hand tremor noted on exam. * Admitted to [facility] telemetry * Continue home lactulose, rifaximin. Trend clinically for signs of confusion/altered mental status. * Nephrology consulted. Appreciate recs. 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 -Chronic; managed on home lactulose, rifaximin. Patient self admits to poor adherence at home. -MELD score: 29 points (76.5% estimated 90-day survival). * Home lactulose, rifaximin, as above. Continue home midodrine * Paracentesis ordered. However, notified by IR US that paracentesis not usually done on weekends unless radiologist personally notified and agrees to perform/supervise procedure. * IV Rocephin 2 g already ordered, to be administered after paracentesis completed. Time of first dose tentatively scheduled to be given at 9 AMrecommend day team continue/hold at own discretion with respect to paracentesis. Macrocytic anemia -Chronic. Symptomatic. Patient has received multiple transfusions before. -Vitamin B12 level obtained last month within normal limits 562. Sharp decrease from 2 months prior 1387. -S/p packed red blood cells x1 unit. * Trend CBC * Continue home vitamin B complex Depression -Chronic; managed on paroxetine 10 mg every afternoon at home. * Continue home paroxetine. Peripheral edema -Chronic; managed on spironolactone at home. * Holding diuretic at this time due to CKD. Defer further management to nephrology. Code: DNR/DNI Dispo: Med-Surg telemetry FEN/GI: NPO. DVT Prophylaxis: PT/OT: Yes Consults: Nephrology Case Management: No (2) 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: (3) Peripheral edema: (4) Leg swelling: (5) Macrocytic anemia: Admission and Anticipated Discharge Date Admission Date: September 01, 2022 Results & Data Results & Data Vital Signs (Past 12 Hours) Vital Signs Temp Pulse Pulse Resp BP BP Pulse Ox 09/01/22 19:55 36.7 C 86 20 125/72 99 09/01/22 16:20 68 09/01/22 13:15 36.3 C L 65 15 118/73 100 09/01/22 11:15 36.4 C L 72 18 124/69 99 09/01/22 12:15 36.3 C L 72 19 96/56 L 100 09/01/22 11:56 36.4 C L 72 18 124/69 99 09/01/22 10:00 36.5 C 75 16 114/67 100 09/01/22 10:15 36.4 C L 74 15 123/71 100 O2 Del Method 09/01/22 19:55 Room Air 09/01/22 16:20 09/01/22 13:15 09/01/22 11:15 09/01/22 12:15 09/01/22 11:56 Room Air 09/01/22 10:00 09/01/22 10:15 PG Care Time/CCT Total # of Minutes Spent Total Time Spent with Patient: Total time spent is greater than 50% in coordination of care (as documented) at patient's floor/unit and/or counseling patient: Coding Diagnoses Increased ammonia level R79.89 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 K75.81; K74.60 Peripheral edema R60.9 Leg swelling M79.89 Macrocytic anemia D53.9
[2022-09-01] MEDS ORDERED: PROCHLORPERAZINE 5 MG in SYRINGE 4 ML IV ONE (22:00)
[2022-09-02 00:01] LABS: Hematocrit (blood only) 23.2 % (42.0-52.0); Hemoglobin 8.2 g/dl (14.0-18.0)
[2022-09-02] MEDS: PANTOprazole 40 MG in DEXTROSE 5% 100 ML IV SCH ×4 (04:16→20:15)
[2022-09-02 06:46] LABS: Hematocrit (blood only) 23.1 % (42.0-52.0); Hemoglobin 8.1 g/dl (14.0-18.0); Mean Corpuscular Hemoglobin 35.4 pg (25.0-34.0); Mean Corpuscular Hgb Conc 35.1 g/dL (32.0-36.0); Mean Corpuscular Volume 100.9 fL (80.0-100.0); Mean Platelet Volume 9.6 fL (9.4-12.4); Platelet Count 39 K/uL (130-400); RDW Coefficient of Variation 23.9 % (11.5-14.5); RDW Standard Deviation 81.7 fL (36.4-46.3); Red Blood Count 2.29 M/uL (4.70-6.10)
[2022-09-02] MEDS ORDERED: fentaNYL citrate PF 100 MCG/2 ML VIAL ONE (07:08)
[2022-09-02 07:17] LABS: Albumin Globulin Ratio 0.9 (0.9-2); Albumin Level 2.4 gm/dl (3.4-5.0); BUN Creatinine Ratio 13.5 (10-20); Bilirubin,Total 5.4 mg/dl (0.2-1.0); Calcium 9.3 mg/dl (8.6-10.3); Creatinine Clr Calc Pharmacy 43.1 ml/min; Est GFR (African American) 40.3 ml/min; Est GFR (Non-African American) 34.8 ml/min; Globulin 2.8 gm/dl (2.5-4.0); Magnesium 1.7 mg/dl (1.7-2.4); Phosphorus 2.6 mg/dl (2.5-4.9); Potassium 4.5 mmol/L (3.5-5.1); Total Protein 5.2 gm/dl (6.0-8.3)
[2022-09-02] MEDS ORDERED: LIDOCAINE 2% 2 ML VIAL/AMP(20MG/ML) INFIL ONE (07:18)
[2022-09-02] MEDS ORDERED: PROPOFOL IV EMULSION 10 MG/ML 20 ML VIAL IV ONE (07:18)
--- NOTE | 2022-09-02 07:33 | Anesthesiology Consultation ---
Date of Service September 02, 2022 Assessment & Plan Chart Review Chart Review: Acceptable Risk for Surgery Consults Requested none History Surgery Operation Date: 09/02/22 07:30 Proposed Procedures p Esophagogastroduodenoscopy - Jonahtan Martinez MD Height/Weight Height: 5 ft 9 in Weight: 102 kg Allergies Allergy/AdvReac Type Severity Reaction Status Date / Time tamsulosin Allergy Intermediate HIVES Verified 08/13/22 16:20 etanercept [From Enbrel] AdvReac Intermediate Increased Verified 08/13/22 16:20 infections Medications Home Medications Medication Instructions Recorded Confirmed Last Taken cholecalciferol (vitamin D3) 50 50 mcg PO QAM #90 caps 05/15/21 08/27/22 06/07/22 mcg (2,000 unit) capsule vitamin B complex 1 tab PO DAILY 10/23/21 08/27/22 06/07/22 am rifaximin 550 mg tablet (Xifaxan) 550 mg PO BID #60 tabs 01/16/22 08/27/22 06/07/22 08:30 darbepoetin coretta in polysorbat 100 100 mcg subcut .COMPLEX PRN 05/23/22 08/27/22 05/22/22 11:00 mcg/0.5 mL in polysorbate NEEDED injection syringe paroxetine HCl 10 mg tablet 10 mg PO QPM 06/21/22 08/27/22 Unknown midodrine 10 mg tablet 10 mg PO TID #90 tabs 07/21/22 08/27/22 Unknown spironolactone 50 mg tablet 50 mg PO BID #60 tabs 07/21/22 08/27/22 Unknown sucralfate 100 mg/mL oral 10 ml PO ACHS #1,000 mL 07/21/22 08/27/22 Unknown suspension ondansetron HCl 4 mg tablet 4 mg PO Q8H PRN Nausea And 08/08/22 08/27/22 Unknown Vomiting #30 tabs pantoprazole 40 mg tablet,delayed 40 mg PO BID #60 tabs 08/08/22 08/27/22 Unknown release lactulose 10 gram/15 mL oral 20 g (30 mL) PO DAILY #946 mL 08/10/22 08/27/22 Unknown solution Active Medications Generic Name Dose Route Start Last Admin Trade Name Freq PRN Reason Stop Dose Admin Ceftriaxone Sodium 2,000 mg/ 70 mls @ 100 mls/hr 09/01/22 09:30 09/01/22 13:40 Dextrose IV 09/11/22 09:29 Infused Q24H LUZ Infusion Protocol Pantoprazole Sodium 40 mg/ 100 mls @ 20 mls/hr 09/01/22 12:30 09/02/22 04:16 Dextrose IV 10/01/22 12:29 8 mg/hr Q5H LUZ 20 mls/hr Administration 8 MG/HR Lactulose 20 gm 09/01/22 09:00 09/01/22 08:57 Lactulose Syrup 20 Gm/30 Ml Udc PO 10/01/22 08:59 20 gm DAILY LUZ Administration Midodrine 10 mg 09/01/22 08:00 09/01/22 17:00 Midodrine Hcl 10 Mg Tab PO 10/01/22 07:59 10 mg TID@0800,1200,1600 LUZ Administration Ondansetron HCl 4 mg 09/01/22 05:01 09/01/22 19:49 Ondansetron Inj 2 Mg/Ml 2 Ml Vial IV 10/01/22 05:00 4 mg Q6H PRN Administration Nausea And Vomiting Paroxetine HCl 10 mg 09/01/22 21:00 09/01/22 19:43 Paroxetine Hcl 10 Mg Tab PO 10/01/22 20:59 10 mg QPM LUZ Administration Rifaximin 550 mg 09/01/22 09:00 09/01/22 19:43 Rifaximin 550 Mg Tablet PO 10/01/22 08:59 550 mg BID LUZ Administration Spironolactone 50 mg 09/01/22 09:00 09/01/22 14:00 Spironolactone 25 Mg Tab PO 10/01/22 08:59 50 mg BID@0900,1400 LUZ Administration Sucralfate 1 gm 09/01/22 07:30 09/01/22 19:43 Sucralfate 1 Gm/10 Ml Udc PO 10/01/22 07:29 1 gm ACHS LUZ Administration Vitamin B Complex 1 tab 09/01/22 09:00 09/01/22 08:58 Vitamin B Complex Tab PO 10/01/22 08:59 1 tab DAILY LUZ Administration Vitamin D 2,000 units 09/01/22 09:00 09/01/22 08:57 Cholecalciferol 1,000 Units 25 Mcg Tab PO 10/01/22 08:59 2,000 units QAM LUZ Administration NPO Date Last Intake of Fluids: 09/01/22 Time Last Intake of Fluids: 12:00 Last Intake of Fluids Comment: per patient. Date Last Intake of Solids: 08/31/22 Time Last Intake of Solids: 08:00 Last Intake of Solids Comment: per patient. Past Medical History Medical History Anemia Ascites Calculus of kidney Cervical disc disease CKD (chronic kidney disease), stage III Depression Esophageal varices determined by endoscopy GAVE (gastric antral vascular ectasia) Per records GERD (gastroesophageal reflux disease) History of GI bleed discharged from [facility] 06/10/22: borderline hemorrhagic shock-upper GI bleed suspected to be d/t GAVE-received 1 unit of PRBC History of herniated intervertebral disc lumbar area History of SCC (squamous cell carcinoma) of skin S/p removal- follows with derm Hx of blood clots 06/2021 @ [facility]- pt reports blood clot in left arm around IV site after being discharged from hospital- no meds due to current blood loss issue- warm compresses to site per pt- 2 ultrasounds done - no current issues Hx of upper gastrointestinal hemorrhage recent hospitalization at [facility] 06/07/2022 Hyperkalemia Hypothyroidism 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 current work-up for planned liver transplant per [facility] transplant clinic records Lumbar disc disease Oral mucositis On mouthwash daily- no recent issues Pancytopenia Portal hypertensive gastropathy Post-traumatic urethral stricture Psoriasis Psoriatic arthritis PVT (portal vein thrombosis) denies Spinal stenosis EPIDURAL INJECTIONS IN PAST FOR PAIN RELIEF TMJ arthralgia Urinary retention Urinary tract infection Wide-complex tachycardia ON CARDVEDILOL-F/U DR VANESSA LAST VISIT<1 YR AGO Past Family History Family History Grandmother (Maternal) Diabetes Father Renal cancer Mother Aortic aneurysm Denies family history of Ovarian cancer Prostate cancer Myocardial infarction Breast cancer Colorectal cancer Past Surgical History Surgical History H/O foot surgery excision of neuroma b/l feet History of appendectomy History of arthroscopy RT KNEE History of cataract surgery RT/LEFT History of cholecystectomy History of esophagogastroduodenoscopy (EGD) last 03/21/22 @ [facility] 02/08/22 Dr. Sara Cloud- EGD- Grade I esophageal varices, Portal hypertensive gastropathy History of herniorrhaphy right inguinal History of lithotripsy History of liver biopsy History of repair of rotator cuff RT/LEFT History of tooth extraction History of urologic surgery Urethral reconstruction 4 years ago at [facility] Nausea and vomiting after administration of anesthetic agent S/P colonoscopy S/P epidural steroid injection S/P orchiectomy Right age 9 for UDT S/P urological surgery (2018) BMG urethroplasty-[facility] Suprapubic catheter AND REMOVAL Social History Smoking Status: Never smoker Do You Dip or Chew Tobacco: No Hx Alcohol Use: No Hx Substance Use: No substance use type: does not use Physical Exam Vital Signs Last Vital Signs Temp 36.4 C L 09/02/22 04:54 Pulse 92 H 09/02/22 04:54 Resp 20 09/02/22 04:54 BP 108/61 09/02/22 04:54 Pulse Ox 98 09/02/22 04:54 O2 Del Method Room Air 09/02/22 04:54 Testing Laboratory Results 09/02/22 06:11 09/02/22 06:11 PT 17.6 Seconds (9.0-12.0) H 09/01/22 02:36 INR 1.7 (0.9-1.1) H 09/01/22 02:36 Urine Color Yellow 09/01/22 03:03 Urine Appearance Cloudy (Clear) A 09/01/22 03:03 Urine pH 6.0 (4.5-7.5) 09/01/22 03:03 Ur Specific Dalton 1.016 (1.000-1.030) 09/01/22 03:03 Urine Protein Trace (Negative) H 09/01/22 03:03 Urine Glucose (UA) Negative (Negative) 09/01/22 03:03 Urine Ketones Negative (Negative) 09/01/22 03:03 Urine Nitrite Positive (Negative) A 09/01/22 03:03 Ur Leukocyte Esterase 2+ (Negative) H 09/01/22 03:03 Urine WBC (Auto) >30 /hpf (0-5) H 09/01/22 03:03 Urine RBC (Auto) 10-30 /hpf (0-4) H 09/01/22 03:03 U Hyaline Cast (Auto) 1-5 /lpf (0-5) 09/01/22 03:03 U Epithel Cells (Auto) 20-30 /lpf (0-5) H 09/01/22 03:03 Urine Bacteria (Auto) 4+ (Negative) H 09/01/22 03:03 Blood Type O Positive 09/01/22 03:35 Antibody Screen NEGATIVE 09/01/22 03:35 09/01/22 03:03 Urine Culture - Preliminary Urine,Clean Catch Gram negative bacilli
[2022-09-02] MEDS ORDERED: ATROPINE SULFATE 0.1 MG/ML 10ML SYR IV PRN (07:34)
[2022-09-02] MEDS ORDERED: ePHEDrine sulfate 50 MG/ML AMP IV PRN (07:34)
--- NOTE | 2022-09-02 07:35 | History & Physical Bridge Note ---
Date of Service September 02, 2022 History & Physical Bridge Note I have examined the patient, reviewed the History & Physical and in the interval since the performance of the History & Physical I have noted the following changes of clinical significance: no changes noted Proceed with EGD. risks/benefits and procedure discussed with patient, who agrees to proceed
[2022-09-02] MEDS ORDERED: SUCCINYLCHOLINE CHLORIDE 20 MG/ML 10 ML VIAL IV ONE (07:54)
[2022-09-02] MEDS ORDERED: PHENYLEPHRINE HCL 10 MG/ML VIAL ONE (07:54)
[2022-09-02] MEDS ORDERED: ONDANSETRON INJ 2 MG/ML 2 ML VIAL ONE (07:55)
--- NOTE | 2022-09-02 08:03 | Procedure Note ---
Procedure Note Date of Service September 02, 2022 Note GI brief procedure/post op note push enteroscopy findings: severe portal hypertensive gastropathy, small esophageal varices. No active bleeding throughout exam. duodenitis. recs: supportive care protonix 40 mg daily beta chinedu given presence of varices, start coreg 3.125 mg BID repeat EGD in 1 year rest as per primary team Jonathan Martinez MD Gastroenterology Coding
--- NOTE | 2022-09-02 08:13 | GI REPORT ---
Patient Name: Sebastian Quiñonez Procedure Date: 09/02/2022 7:09 AM Date of : 1955 Admit Type: Inpatient Age: 67 Gender: Male Attending MD: Jonathan Martinez MD, Procedure: Small bowel enteroscopy Providers: Jonathan Martinez MD Referring MD: ALEM AUSTIN Indications: Anemia Medicines: Monitored Anesthesia Care Complications: No immediate complications. Estimated blood loss: None. Estimated Blood Loss: Estimated blood loss: none. Procedure: Pre-Anesthesia Assessment: - Prior Anticoagulants: The patient has taken no anticoagulant or antiplatelet agents. - ASA Grade Assessment: III - A patient with severe systemic disease. After obtaining informed consent, the endoscope was passed under direct vision. Throughout the procedure, the patient's blood pressure, pulse, and oxygen saturations were monitored continuously. The Colonoscope was introduced through the mouth, and advanced to the fourth part of duodenum. After obtaining informed consent, the endoscope was passed under direct vision. Throughout the procedure, the patient's blood pressure, pulse, and oxygen saturations were monitored continuously.The small bowel enteroscopy was accomplished without difficulty. The patient tolerated the procedure well. Findings: Small (< 5 mm) varices were found in the distal esophagus. Estimated blood loss: none. Severe portal hypertensive gastropathy was found in the stomach. Segmental inflammation, characterized by erythema was found in the second portion of the duodenum and in the third portion of the duodenum. no active bleeding noted throughout entire exam. Impression: - Small (< 5 mm) esophageal varices. - Portal hypertensive gastropathy. - Duodenitis characterized by erythema. - No specimens collected. Recommendation: - Return patient to [facility] for ongoing care. - Advance diet as tolerated today. -supportive care -protonix 40 mg daily -beta chinedu given presence of varices, start coreg 3.125 mg BID -repeat EGD in 1 year -rest as per primary team Jonathan Martinez MD 09/02/2022 8:12:32 AM This report has been signed electronically. Note Initiated On: 09/02/2022 7:09 AM Number of Addenda: 0 I attest to the content of the Intraoperative Record and orders documented therein, exceptions below {[id number]}
--- NOTE | 2022-09-02 08:43 | Anesthesiology Progress Note ---
Date of Service September 02, 2022 Anesthesia Post Procedure Vital Signs Vital Signs: Temp Pulse Pulse Pulse Resp BP BP 09/02/22 08:25 36.4 C L 112 H 20 105/53 L 09/02/22 08:18 36.1 C L 120 H 20 119/53 L 09/02/22 04:54 36.4 C L 92 H 20 108/61 09/02/22 00:00 73 09/01/22 23:49 36.8 C 80 20 112/66 09/01/22 19:55 36.7 C 86 20 125/72 09/01/22 16:20 68 09/01/22 13:15 36.3 C L 65 15 118/73 09/01/22 11:15 36.4 C L 72 18 124/69 09/01/22 12:15 36.3 C L 72 19 96/56 L 09/01/22 11:56 36.4 C L 72 18 124/69 09/01/22 10:00 36.5 C 75 16 114/67 09/01/22 10:15 36.4 C L 74 15 123/71 09/01/22 08:54 36.1 C L 90 16 119/64 Pulse Ox O2 Del Method O2 Flow Rate 09/02/22 08:25 95 Oxymask 2 09/02/22 08:18 96 Oxymask 2 09/02/22 04:54 98 Room Air 09/02/22 00:00 09/01/22 23:49 99 Room Air 09/01/22 19:55 99 Room Air 09/01/22 16:20 09/01/22 13:15 100 09/01/22 11:15 99 09/01/22 12:15 100 09/01/22 11:56 99 Room Air 09/01/22 10:00 100 09/01/22 10:15 100 09/01/22 08:54 96 Transfer of Care Handoff Completed per policy Notes Mental Status: alert / awake / arousable and participated in evaluation Patient Amnestic to Procedure: Yes Nausea / Vomiting: adequately controlled Pain: adequately controlled Airway Patency, RR, SpO2: stable & adequate BP & HR: stable & adequate Hydration State: stable & adequate Anesthetic Complications: no major complications apparent
--- NOTE | 2022-09-02 09:59 | Hospitalist Progress Note ---
Date of Service September 02, 2022 Assessment & Plan (1) Increased ammonia level: Plan: 67 M with PMH SERRANO + liver cirrhosis, CKD, GAVE + esophageal varices, and depression, who presented to the emergency room with elevated serum ammonia. Admitted for supervision, with serum ammonia now back to normal. Increased ammonia level -Acute on chronic elevation in the setting of Serrano cirrhosis. Likely due to nonadherence, as patient admits on admission. -Ammonia elevated at 79 at outpatient clinic. Recheck already appears to be at goal at 47. -Patient already appears A&O x4 on admission, with good awareness/insight. Resting hand tremor noted on exam. * Admitted to [facility] telemetry * Continue home lactulose, rifaximin. Trend clinically for signs of confusion/altered mental status. * Nephrology consulted. Appreciate recs. * Resolved. 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 -Chronic; managed on home lactulose, rifaximin. Patient self admits to poor adherence at home. -MELD score: 29 points (76.5% estimated 90-day survival). * Home lactulose, rifaximin, as above. Continue home midodrine * Paracentesis ordered. However, notified by IR US that paracentesis not usually done on weekends unless radiologist personally notified and agrees to perform/supervise procedure. * IV Rocephin 2 g already ordered, and schedueld on Saturday by admitting team. Planned to start after paracenthesis, sadly this was not stopped prior to first dose. Patient getting paracenthesis in AM on Saturday * Plan to discharge on aldaxtone to help limit ascitites, if large fluid collection is removed on Saturday. Macrocytic anemia -Chronic. Symptomatic. Patient has received multiple transfusions before. -Concern over possibility of acute blood loss anemia. -Consulted GI. Endoscopy completed on 09/02 -findings: severe portal hypertensive gastropathy, small esophageal varices. No active bleeding throughout exam. duodenitis. recs: supportive care protonix 40 mg daily beta chinedu given presence of varices, start coreg 3.125 mg BID repeat EGD in 1 year -Though not noted in the recommendations: GI did state via tiger that an o utpatient capsule endoscopy may be helpful. -Vitamin B12 level obtained last month within normal limits 562. Sharp decrease from 2 months prior 1387. -S/p packed red blood cells x1 unit. * Trend CBC * Continue home vitamin B complex Depression -Chronic; managed on paroxetine 10 mg every afternoon at home. * Continue home paroxetine. Peripheral edema -Chronic; managed on spironolactone at home. * Holding diuretic at this time due to CKD. Defer further management to nephrology. Code: DNR/DNI Dispo: Med-Surg telemetry FEN/GI: NPO. DVT Prophylaxis: PT/OT: Yes Consults: Nephrology Case Management: No (2) 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: (3) Peripheral edema: (4) Leg swelling: (5) Macrocytic anemia: Admission and Anticipated Discharge Date Admission Date: September 01, 2022 Subjective 67 yo male reports doing well, he reports no new symptoms. He states feeling hungry. Review of Systems Review of Systems: All systems reviewed & are unremarkable except as noted in HPI & below Physical Exam Physical Exam: General: awake, alert HEENT: Icteric sclerae. Jaundiced face and shoulders. Telangiectatic cheeks. EOM intact. Good conjugate gaze. Nares patent. Moist mucosal membranes. Neck: Supple. No lymphadenopathy. Normal ROM. CV: Irregularly irregular rhythm. No tachycardia. No murmurs gallops or rubs. Respiratory: Normal respiratory effort. Bibasilar crackles. No rhonchi, or wheezes. Abdomen: Soft, distended abdomen with ascites. Diffuse mild tenderness to palpation (greatest at RUQ, LUQ) without guarding or rebound. Extremities: Capillary refill <2 sec. 2+ dp equal bilaterally. Bilateral 1+ pedal edema. Neuro: Alert and oriented x3. Bilateral hand tremor >>R vs L. Skin: Clean, dry, and intact. Multiple ecchymoses of UE bilaterally. Results & Data Results & Data Vital Signs (Past 12 Hours) Vital Signs Temp Pulse Pulse Pulse Resp BP Pulse Ox 09/02/22 08:25 36.4 C L 112 H 20 105/53 L 95 09/02/22 08:18 36.1 C L 120 H 20 119/53 L 96 09/02/22 04:54 36.4 C L 92 H 20 108/61 98 09/02/22 00:00 73 09/01/22 23:49 36.8 C 80 20 112/66 99 O2 Del Method O2 Flow Rate 09/02/22 08:25 Oxymask 2 09/02/22 08:18 Oxymask 2 09/02/22 04:54 Room Air 09/02/22 00:00 09/01/22 23:49 Room Air PG Care Time/CCT Total # of Minutes Spent Total Time Spent with Patient: Total time spent is greater than 50% in coordination of care (as documented) at patient's floor/unit and/or counseling patient: Coding Level of Care Code 37781 SUB INP/OBS CARE 2/35MIN Diagnoses Increased ammonia level R79.89 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 K75.81; K74.60 Peripheral edema R60.9 Leg swelling M79.89 Macrocytic anemia D53.9
--- NOTE | 2022-09-02 10:35 | Nephrology Progress Note ---
Date of Service September 02, 2022 Assessment & Plan (1) COLLIN (acute kidney injury): (2) Anemia: (3) Acute UTI (urinary tract infection): Plan 67-year-old gentleman with PMH significant for stage IIIB CKD b/l cr 1.5-2 0, cirrhosis with SERRANO, admitted with AMS,anemia, generalized weakness and UTI. Initially noted to have high ammonia level which improved, continued on lactulose and rifaximin. Creatinine improved to 1.9, electrolyte acceptable. Albumin 2.7. -- continue current dose of midodrine as BP has been acceptable. -- start on protein supplement when started on po, suggest boost 1 can tid. -- dose medications for EGFR less than 30 Will follow Admission and Anticipated Discharge Date Admission Date: September 01, 2022 Subjective Bill was seen and evaluated this morning. Just had EGD and push enteroscopy, no active bleeding but severe portal gastropathy and duodenitis noted, now on IV protonic BID. Hb improved >8. Cr improved to 1.9, electrolyte acceptable. BP fair. Review of Systems Review of Systems: Detail review of system was done and pertinent positives and negatives are mentioned above. Physical Exam Constitutional: WD/WN, vitals as above + ill appearing; no acute distress Eyes: + anicteric sclerae Neck: normal visual inspection Respiratory: no respiratory distress Auscultation: lungs clear to auscultation bilaterally Cardiovascular: Rate/Rhythm: regular rate and regular rhythm Heart Sounds: normal S1 and normal S2 Extremities: + edema Neurologic: no focal motor deficits and not confused Motor/Sensory: + asterixis Psychiatric: Orientation: alert and oriented x 3 Affect: euthymic affect Results & Data Vital Signs (Past 12 Hours) Vital Signs Temp Pulse Pulse Pulse Resp BP Pulse Ox 09/02/22 08:25 36.4 C L 112 H 20 105/53 L 95 09/02/22 08:18 36.1 C L 120 H 20 119/53 L 96 09/02/22 04:54 36.4 C L 92 H 20 108/61 98 09/02/22 00:00 73 09/01/22 23:49 36.8 C 80 20 112/66 99 O2 Del Method O2 Flow Rate 09/02/22 08:25 Oxymask 2 09/02/22 08:18 Oxymask 2 07/09/23 04:54 Room Air 09/02/22 00:00 09/01/22 23:49 Room Air PG Care Time/CCT Total # of Minutes Spent Total Time Spent with Patient: Total time spent is greater than 50% in coordination of care (as documented) at patient's floor/unit and/or counseling patient: Coding Level of Care Code 13519 SUB INP/OBS CARE 2/35MIN Diagnoses COLLIN (acute kidney injury) N17.9 Anemia D64.9 Acute UTI (urinary tract infection) N39.0
[2022-09-02] MEDS: cefTRIAXone SODIUM 2,000 MG in DEXTROSE 5% 50 ML IV SCH (11:45)
[2022-09-02] MEDS: SPIRONOLACTONE 25 MG TAB PO SCH ×2 (11:45→15:35)
[2022-09-02] MEDS: MIDODRINE HCL 10 MG TAB PO SCH ×3 (11:46→15:35)
[2022-09-02] MEDS: LACTULOSE SYRUP 20 GM/30 ML UDC PO SCH (11:46)
[2022-09-02] MEDS: VITAMIN B COMPLEX TAB PO SCH (11:46)
[2022-09-02] MEDS: rifAXIMin 550 MG TABLET PO SCH ×2 (11:46→20:19)
[2022-09-02] MEDS: CHOLECALCIFEROL 1,000 UNITS 25 MCG TAB PO SCH (11:46)
[2022-09-02] MEDS: SUCRALFATE 1 GM/10 ML UDC PO SCH ×4 (11:46→20:20)
[2022-09-02] MEDS: carvediloL 3.125 MG TAB PO SCH (18:35)
[2022-09-02] MEDS: PARoxetine HCL 10 MG TAB PO SCH (20:19)
[2022-09-03] MEDS: PANTOprazole 40 MG in DEXTROSE 5% 100 ML IV SCH ×3 (01:17→10:18)
[2022-09-03 06:29] LABS: Hematocrit (blood only) 22.8 % (42.0-52.0); Hemoglobin 7.7 g/dl (14.0-18.0); Mean Corpuscular Hemoglobin 35.5 pg (25.0-34.0); Mean Corpuscular Hgb Conc 33.8 g/dL (32.0-36.0); Mean Corpuscular Volume 105.1 fL (80.0-100.0); Mean Platelet Volume 10.4 fL (9.4-12.4); Platelet Count 42 K/uL (130-400); RDW Coefficient of Variation 23.3 % (11.5-14.5); RDW Standard Deviation 85.4 fL (36.4-46.3); Red Blood Count 2.17 M/uL (4.70-6.10); White Blood Count 3.55 K/ul (4.8-10.8)
[2022-09-03] MEDS ORDERED: Nursing to Pharmacy Communication SCH (06:45)
[2022-09-03 06:48] LABS: Albumin Globulin Ratio 0.8 (0.9-2); Albumin Level 2.2 gm/dl (3.4-5.0); BUN Creatinine Ratio 12.7 (10-20); Bilirubin,Total 2.9 mg/dl (0.2-1.0); Calcium 9.2 mg/dl (8.6-10.3); Creatinine Clr Calc Pharmacy 39.1 ml/min; Est GFR (African American) 35.8 ml/min; Est GFR (Non-African American) 30.9 ml/min; Globulin 2.7 gm/dl (2.5-4.0); Magnesium 1.7 mg/dl (1.7-2.4); Phosphorus 2.4 mg/dl (2.5-4.9); Potassium 4.4 mmol/L (3.5-5.1); Total Protein 4.9 gm/dl (6.0-8.3)
[2022-09-03] MEDS: SUCRALFATE 1 GM/10 ML UDC PO SCH ×3 (07:34→16:36)
[2022-09-03] MEDS ORDERED: ALBUMIN 25% 25 GM/100 ML VIAL IV SCH (08:30)
[2022-09-03] MEDS ORDERED: FUROSEMIDE 40 MG/4 ML VIAL IV ONE (09:57)
--- NOTE | 2022-09-03 09:59 | Ultrasound Report ---
ULTRASOUND ASCITES CHECK CLINICAL HISTORY: Abdominal ascites. COMPARISON STUDY: Abdominal CT dated 08/13/2022. FINDINGS: The patient presented for paracentesis. Real-time grayscale sonography of all 4 quadrants o f the abdomen was performed to assess for abdominal ascites. There is only trace perihepatic ascites. Cirrhotic liver morphology is noted. The spleen appears mildly enlarged. IMPRESSION: There was only trace perihepatic ascites identified. This was insufficient for paracentes is and the procedure was deferred. Electronically signed by: Edward Foreman M.D. 09/03/2022 9:58 AM
[2022-09-03] MEDS: rifAXIMin 550 MG TABLET PO SCH (10:08)
[2022-09-03] MEDS: MIDODRINE HCL 10 MG TAB PO SCH ×3 (10:08→15:34)
[2022-09-03] MEDS: VITAMIN B COMPLEX TAB PO SCH (10:09)
[2022-09-03] MEDS: SPIRONOLACTONE 25 MG TAB PO SCH ×2 (10:09→13:47)
[2022-09-03] MEDS: CHOLECALCIFEROL 1,000 UNITS 25 MCG TAB PO SCH (10:09)
[2022-09-03] MEDS: LACTULOSE SYRUP 20 GM/30 ML UDC PO SCH (10:12)
[2022-09-03] MEDS: cefTRIAXone SODIUM 2,000 MG in DEXTROSE 5% 50 ML IV SCH (10:38)
--- NOTE | 2022-09-03 10:39 | Gastroenterology Progress Note ---
Date of Service September 03, 2022 Assessment & Plan (1) Decompensated hepatic cirrhosis: (2) Anemia: Plan Pt is a 67 year old male w/ SERRANO cirrhosis (MELD 27), complicated by varices, phg, GAVE, CKD, chronic anemia admitted with acute on chronic anemia. Previous admission last month w suspected urosepsis (blood and urine cx growing GPC; + VRE and E. faecium). Current urine cx growing Klebsiella. He had push enteroscopy on 09/02 - no santino source of bleeding noted. He has portal hypertensive gastropathy and duodenitis, small esophageal varices Blood ct stable after 2U PRBC transfusion wo gross GI bleeding noted. - Diet as tolerated - Monitor blood ct and transfuse prn (goal Hgb >7) - PPI IV bid - Lasix 40mg IV x 1 dose today; continue Spironolactone 50mg bid - Continue Lactulose (goal BM 3-5x a day), Xifaxan 550mg bid - [place] [facility] [place]. Pt needed updated MELD labs which we can scan into [employer], for goal of him getting listed for liver transplant. Admission and Anticipated Discharge Date Admission Date: September 01, 2022 Supervising Physician Co-Signing Physician Notes I personally saw and evaluated the patient on 09/03/2022 with BRENDA Chanel and agree with her findings and plan of care. 67 y/o M with history of decompensated SERRANO cirrhosis c/b EV, ascites, anasarca, HE, and recurrent bleeding with multiple hospital admission for anemia due to PHG. On exam he is AAOx3 without asterixis, no ascites, and 2-3+ chronic LE edema. He follows with me as an outpatient. Admitted again with anemia and underwent a push enteroscopy over the weekend found to have non-bleeding PHG and small EV. He has had multiple endoscopies recently. He typically has anemia likely due to oozing PHG. He has been intolerant to beta blockers due to severe orthostatic hypotension and was taken off this by his grievance and appeals specialist. I would not attempt this again given his symptoms in the past. We discussed today that ultimately the treatment for his portal hypertension is a transplant. He has been worked up in the outpatient and after discussion with community education coordinator at [facility] they need one more set of labs to discuss him and list him. We are faxing those results to them today and hopefully he will be listed for transplant soon. MELD-Na is 27 today. On discharge we will make sure he has an appt. to see me in clinic in 1-2 weeks. Luda Espitia, Gastroenterology and Hepatology Subjective Pt has chronic abd pain, no worse than baseline. Denies n/v. Had BM this AM, denies black tarry stool or santino rectal bleeding. Review of Systems Review of Systems: All systems reviewed & are unremarkable except as noted in HPI & below Gastrointestinal: as per Subjective / HPI Results & Data Vital Signs (Past 12 Hours) Vital Signs Temp Pulse Pulse Resp BP Pulse Ox O2 Del Method 09/03/22 07:36 36.6 C 68 16 100/59 L 96 Room Air 09/03/22 05:03 36.7 C 67 18 111/65 98 Room Air 09/03/22 00:03 36.7 C 74 18 99/47 L 98 Room Air 09/03/22 00:00 74
--- NOTE | 2022-09-03 11:34 | Nephrology Progress Note ---
Date of Service September 03, 2022 Assessment & Plan (1) COLLIN (acute kidney injury): (2) Anemia: (3) Acute UTI (urinary tract infection): (4) Hyponatremia: Plan 67-year-old gentleman with PMH significant for stage IIIB CKD b/l cr 1.5-2 0, cirrhosis with SERRANO, admitted with AMS,anemia, generalized weakness and UTI. Initially noted to have high ammonia level which improved, continued on lactulose and rifaximin. MELD score is 25. No staying relatively stable with some variability in creatinine, sodium low in the setting of hypotension. albumin lower at 2.2 -- will start on some IV albumin and boost 1 can t.i.d. with meal. -- dose medications for EGFR less than 30 Will follow Admission and Anticipated Discharge Date Admission Date: September 01, 2022 Cruzito Bill was seen and evaluated this morning. Overall he is feeling well, tolerating regular diet. Hemoglobin again dropped slightly to 7.7, renal function staying relatively stable with slight variability in creatinine, sodium dropped to 130. blood pressure staying relatively low. Review of Systems Review of Systems: Detail review of system was done and pertinent positives and negatives are mentioned above. Physical Exam Constitutional: WD/WN, vitals as above + ill appearing; no acute distress Eyes: + anicteric sclerae Neck: normal visual inspection Respiratory: no respiratory distress Auscultation: lungs clear to auscultation bilaterally Cardiovascular: Rate/Rhythm: regular rate and regular rhythm Heart Sounds: normal S1 and normal S2 Extremities: + edema Neurologic: no focal motor deficits and not confused Motor/Sensory: + asterixis Psychiatric: Orientation: alert and oriented x 3 Affect: euthymic affect Results & Data Vital Signs (Past 12 Hours) Vital Signs Temp Pulse Pulse Resp BP Pulse Ox O2 Del Method 09/03/22 11:30 36.5 C 68 20 97/60 L 99 Room Air 09/03/22 06:01 60 09/03/22 07:36 36.6 C 68 16 100/59 L 96 Room Air 09/03/22 05:03 36.7 C 67 18 111/65 98 Room Air 09/03/22 00:03 36.7 C 74 18 99/47 L 98 Room Air 09/03/22 00:00 74 PG Care Time/CCT Total # of Minutes Spent Total Time Spent with Patient: Total time spent is greater than 50% in coordination of care (as documented) at patient's floor/unit and/or counseling patient: Coding Level of Care Code 22386 SUB INP/OBS CARE 235MIN Diagnoses COLLIN (acute kidney injury) N17.9 Anemia D64.9 Acute UTI (urinary tract infection) N39.0 Hyponatremia E87.1
[2022-09-03] MEDS: carvediloL 3.125 MG TAB PO SCH (11:38)
--- NOTE | 2022-09-03 12:41 | Discharge Summary ---
Date of Service September 03, 2022 Admission HPI Per Admitting Provider Sebastian is a 67-year-old man with a past medical history of GAVE with GI bleed/esophageal varices/anemia, SERRANO with cirrhosis, paroxysmal SVT, thrombocytopenia, and CKD who presented to the emergency room from home after presenting to his outpatient nephrology clinic visit with altered mental status and found to have hyperammonemia of 79. Patient is unable to recall the last 24 hours but his son, who is at bedside provides corroborating information. Son noticed that was starting to sound altered over the phone on , 08/30. He called the following morning to check on his father but he had already driven himself to his nephrology clinic appointment with Dr. Martinez. According to the son, Dr. Martinez called patient personally to let him know that the patient sounded altered and that he had instructed the patient to drive himself to the emergency room he refused. Son confirms that that drove himself home instead. Son then brought dad to the ED. Patient took his lactulose today, though he admits on admission to poor adherence. In the ED, vitals were stable/within normal limits. Labs were notable for hemoglobin of 6.3, creatinine of 2.53, TSH of 6.452, and magnesium of 1.5. Repeat ammonia was significantly improved at 47. He received 1 unit of packed red blood cells and hospitalist was contacted for admission. ROS + dizziness, nausea, RUQ pain, shortness of breath, palpitations, and diarrhea (which he says he has at baseline). He denies chest pain, headache, vomiting dysuria, or vomiting. Principal Diagnosis Hepatic encephalopathy, acute kidney injury, Klebsiella UTI, weakness Discharge Exam General-alert and oriented x3, no fevers, no chills HEENT-head atraumatic and normocephalic, pupils equal and reactive to light, extraocular muscles intact Neck-no lymphadenopathy or thyromegaly, trachea midline Chest-clear to auscultation percussion. No rales wheezing or rhonchi Cardiac-regular rate and rhythm, normal S1 and S2 Abdomen-normal bowel sounds, nontender, no hepatosplenomegaly Extremities-no cyanosis, clubbing, or edema Neuro-cranial nerves II through XII intact, motor and sensory function within normal limits, strength symmetrical , no focal deficits Psych-normal affect, normal mood Discharge Data Allergies Allergy/AdvReac Type Severity Reaction Status Date / Time tamsulosin Allergy Intermediate HIVES Verified 08/13/22 16:20 etanercept [From Enbrel] AdvReac Intermediate Increased Verified 08/13/22 16:20 infections Consultations 09/01/22 03:38 ED Decision to Admit Stat 09/01/22 05:02 Consult Nephrology Routine 09/01/22 11:48 Consult Gastroenterology Routine Procedures Performed Operation Date: 09/02/22 07:30 Actual Procedures p Esophagogastroduodenoscopy(Not Applicable) - Jonathan Martinez MD Ordered Studies 09/03/22 05:21 US abdomen ltd ascites Urgent Hospital Course (1) Increased ammonia level: Elevated on admission. Treated and now normalized. Currently on lactulose and rifaximin. Appreciate nephrology consultation and recommendations (2) 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: The patient states he already takes Aldactone at home. Continue current medication. Paracentesis is not indicated at this time (3) Peripheral edema: Due to chronic liver failure. No evidence of CHF (4) Macrocytic anemia: The patient received 1 unit of packed red blood cells this admission. No evidence of GI bleeding. Hemoglobin remains chronically low. Chronic renal failure is playing a role Plan The patient is anxious to go home. He will be discharged home today, September 03 Total Time Total Time Spent Total Time Spent (In Minutes): 40-minute Discharge Plan Discharge Items Patient Disposition: Home - Home Health Services Reason For Visit: ANEMIA Discharge Diagnosis: Hepatic encephalopathy, acute on chronic macrocytic anemia, acute kidney injury, UTI, weakness Activity: Resume your previous activity Non-emergency contact: Primary Care Provider and Membership Sales Advisor Call non-emergency contact if: you have any medication questions and your symptoms worsen Follow-up/Referrals: Fiorella Castellano DO [Primary Care Provider] - Diet: Regular and Heart Healthy Addtl Attending Provider Instructions: Take Cipro antibiotic for 3 more days. Carvedilol is a new medication Pending Studies at Discharge: No Stand-Alone Forms: [employer], Smoking Cessation Medications and DC Order Prescriptions: New carvedilol 3.125 mg Tablet 3.125 mg PO BIDM Qty: 60 0RF ciprofloxacin HCl [Cipro] 250 mg tablet 250 mg PO BID Qty: 6 0RF Continued cholecalciferol (vitamin D3) 50 mcg (2,000 unit) capsule 50 mcg PO QAM Qty: 90 3RF Xifaxan 550 mg tablet 550 mg PO BID Qty: 60 5RF ondansetron HCl 4 mg tablet 4 mg PO Q8H PRN (Reason: Nausea And Vomiting) Qty: 30 1RF pantoprazole 40 mg tablet,delayed release (DR/EC) 40 mg PO BID Qty: 60 0RF lactulose 10 gram/15 mL solution 20 g PO DAILY Qty: 946 3RF Rx Instructions: titrate for 2-3 bowel movements each day. vitamin B complex Tablet 1 tab PO DAILY paroxetine HCl 10 mg tablet 10 mg PO QPM darbepoetin coretta in polysorbat 100 mcg/0.5 mL syringe 100 mcg subcut .COMPLEX PRN (Reason: NEEDED) Rx Instructions: 100 mcg subcutaneously Q weekly until Hgb >9. Then resume, Q other week. Hold for Hgb >10.; sucralfate 100 mg/mL suspension 10 ml PO ACHS Qty: 1000 2RF spironolactone 50 mg tablet 50 mg PO BID Qty: 60 2RF Rx Instructions: take each morning and every afternoon midodrine 10 mg tablet 10 mg PO TID Qty: 90 1RF Rx Instructions: do not give last dose of day after 6PM or within 4 hrs of bedtime Discharge Orders: Discharge Order (Routine); Ordered 09/03/22 Ordered By: Renny Barrera Admission Data Admit Date/Time: 09/01/22 03:29 Attending Provider: Renny Barrera Admit Provider: Rachel Lantigua Primary Care Provider: Fiorella Castellano Other Providers: Heath Iraheta [facility] ; Gio Bello ; Gabriel Bowles ; Debra Vargas ; Finn Martinez ; Bella Mckinney ; Jonathan Martinez Coding Level of Care Code 78281 INP/OBS DISCH >30 MIN Diagnoses Increased ammonia level R79.89 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 K75.81; K74.60 Peripheral edema R60.9 Macrocytic anemia D53.9
[2022-09-03] MEDS ORDERED: PANTOprazole 40 MG in SYRINGE 0 ML IV SCH (21:00)
== END 2022-09-03 17:30 | disposition home health service (06) | DRG 442 ==
LOC: ED 01:38 → SUATTDRO 03:29 → 2W 03:29

== ENCOUNTER 2022-09-23 12:12 | Inpatient (IN) ==
[2022-09-23 13:05] LABS: Albumin Globulin Ratio 0.8 (0.9-2); Albumin Level 2.2 gm/dl (3.4-5.0); Bilirubin Direct 1.7 mg/dl (0-0.2); Calcium 10.6 mg/dl (8.6-10.3); Creatinine Clr Calc Pharmacy 33.7 ml/min; Est GFR (African American) 28.4 ml/min; Est GFR (Non-African American) 24.5 ml/min; Globulin 2.9 gm/dl (2.5-4.0); Total Protein 5.1 gm/dl (6.0-8.3)
[2022-09-23 13:11] LABS: Mean Corpuscular Hemoglobin 35.2 pg (25.0-34.0); Mean Corpuscular Hgb Conc 32.9 g/dL (32.0-36.0); Mean Corpuscular Volume 107.1 fL (80.0-100.0); Mean Platelet Volume 9.7 fL (9.4-12.4); Platelet Count 73 K/uL (130-400); RDW Coefficient of Variation 22.5 % (11.5-14.5); RDW Standard Deviation 85.1 fL (36.4-46.3); Red Blood Count 1.96 M/uL (4.70-6.10); Troponin I High Sensitivity 8.6 pg/ml (0-20); White Blood Count 5.59 K/ul (4.8-10.8)
[2022-09-23 13:17] LABS: INR 1.5 (0.9-1.1); Prothrombin Time 16.1 Seconds (9.0-12.0)
[2022-09-23 13:29] LABS: Anisocytosis Present; Basophils # (auto) 0.02 K/uL (0-0.2); Basophils % (auto) 0.4 %; Echinocytes 1+; Eosinophils # (auto) 0.09 K/uL (0-0.50); Eosinophils % (auto) 1.6 %; Hemoglobin 6.9 g/dl (14.0-18.0); Immature Granulocytes # (auto) 0.03 K/uL (0.01-0.20); Immature Granulocytes % (auto) 0.5 %; Lymphocytes # (auto) 0.45 K/uL (1.2-3.4); Lymphocytes % (auto) 8.1 %; Macrocytosis Present; Monocytes # (auto) 0.86 K/uL (0.11-0.59); Monocytes % (auto) 15.4 %; Neutrophils # (auto) 4.14 K/uL (1.40-6.50); Polychromasia 1+
--- NOTE | 2022-09-23 14:16 | XRay Report ---
XR chest 1V portable HISTORY: weakness COMPARISON: Chest 09/01/2022. FINDINGS: There is mild elevation of the right hemidiaphragm. Surgical clips are seen within the uppe r abdomen. There are low lung volumes. No focal lung consolidations to suggest a pneumonia. No eviden ce for pulmonary edema. The cardiac silhouette remains borderline enlarged. IMPRESSION: No acute process. ACT 112: Negative or not required by law. Electronically signed by: Joaquín Bolden M.D. 09/23/2022 2:14 PM
[2022-09-23] MEDS ORDERED: SODIUM CHLORIDE 0.9% 500 ML IV ONE (14:47)
[2022-09-23] MEDS ORDERED: PANTOPRAZOLE BOLUS/DRIP 1 EACH IV STA (14:47)
[2022-09-23] MEDS ORDERED: PANTOprazole 80 MG in DEXTROSE 5% 100 ML IV ONE (14:47)
[2022-09-23] MEDS ORDERED: SODIUM CHLORIDE 0.9% 250 ML IV PRN (14:47)
[2022-09-23] MEDS ORDERED: OCTREOTIDE ACETATE 50 MCG in SYRINGE 9.5 ML IV STA (14:52)
[2022-09-23] MEDS ORDERED: STAT IV STA (14:52)
[2022-09-23] MEDS ORDERED: NovoLIN-R INSULIN PER UNIT CHARGE IV STA (15:01)
[2022-09-23] MEDS ORDERED: DEXTROSE 50% 50 ML SYRINGE IV ONE (15:01)
[2022-09-23] MEDS ORDERED: PHYTONADIONE 10 MG in DEXTROSE 5% 50 ML IV STA (15:02)
[2022-09-23 15:07] LABS: Reticulocyte % 6.2 % (0.5-2.0); Reticulocytes # 0.12 10^6/uL (0.02-0.10)
[2022-09-23] MEDS: PANTOprazole 40 MG in DEXTROSE 5% 100 ML IV SCH ×2 (15:12→21:30)
--- NOTE | 2022-09-23 15:14 | Emergency Department Note ---
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 PLAN: Disposition: Admit MEDICAL DECISION MAKING: The patient is a pleasant 67-year-old gentleman with a past medical history of Heaton cirrhosis, portal hypertension, esophageal varices, CKD, history of urosepsis who presents to the emergency department via EMS for evaluation of generalized weakness and ongoing edema evolving over the past week. The patient is a poor historian and no for members are present at this time. EKG without overt acute ischemia. No QRS widening or hyperacute T waves noted. Chest x-ray negative for acute cardiopulmonary process. WBC within normal limits. H/H 6.9/21 which is down from 4 days ago but similar to a week ago. Platelets 73K similar to prior in the setting of cirrhosis. INR 1.5, mid range for the patient. Creatinine 2.5, within range of CKD prior values. Potassium 6.0 without overt EKG changes. Calcium is 10.6 with albumin of 2.2 which corrects to a calcium of 12. Total bilirubin 4.0 with direct bili 1.7, similar to prior range of values. AST and ALT are normal. Alk phos is mildly above normal at 132. Ammonia is newly elevated at 178 and likely large component of the patient's generalized weakness and confusion. High-sensitivity troponin 8.6, within normal limits. Lipase is not elevated. Given the patient's history patient was ordered for IV Protonix and drip as well as octreotide bolus and drip. Additionally cross for 2 units of PRBCs with 1 unit to transfuse now for anemia. CT of the head, chest and abdomen pelvis ordered and pending to help further characterize the patient's presentation. Given the patient's hyperkalemia of 6.0 but with no EKG changes he was given insulin for initial treatment at this time. Calcium was deferred due to hypercalcemia. Case was d/w Dr. Lares, [facility] hospitalist who will evaluate the patient for admission. CT of the head was negative for acute abnormality. CT of the chest negative for acute process. CT of abdomen pelvis demonstrates patient's known cirrhosis with portal hypertension including splenomegaly, abdominal varicosities small amount of ascites that has progressed. Gastric wall thickening is noted and has progressed and is consistent with nonspecific gastritis. Moderate circumferential thickening of ascending colon also seen that can be consistent with portal colopathy. There is unchanged atrophy of main portal vein that is partially calcified suggesting chronic partial thrombosis. Fecal retention is also seen. Of note, following CT imaging the patient did feel the need to move his bowels and did have transient vasovagal episode where his blood pressure did declined to the 70s/50s but the patient was awake and alert answering questions as he strained to move his bowels. The patient's blood transfusion was in progress at this time and blood pressure did recover to the 100s/50s. Further management per admitting team. Triage Nursing notes reviewed and agree them. Prior/outside medical records reviewed Vital Signs: reviewed Differential diagnosis: Infection, dehydration, metabolic abnormality, hypo/hyperglycemia, electrolyte disturbance, anemia, hypoxia, cardiac sources, intracerebral event, toxicologic, neurologic, as well as other pathologies. ER treatment provided: See below. Diagnostics interpreted by me: ECG: Normal sinus rhythm, 100 bpm, no ectopy, no overt ST elevation or depression, QTc 451, QRS 84. Cardiac Monitoring: An order for continuous cardiac monitoring was placed and demonstrated normal sinus rhythm 100 bpm, no ectopy. Laboratory studies: See below Imaging studies: See below Consultation(s): Case was d/w Dr. Lares, [facility] hospitalist who will evaluate the patient for admission. HPI: The patient is a pleasant 67-year-old gentleman with a past medical history of He[place] cirrhosis, portal hypertension, esophageal varices, CKD, history of urosepsis who presents to the emergency department via EMS for evaluation of generalized weakness and ongoing edema evolving over the past week. The patient is a poor historian and no for members are present at this time. ROS: See above HPI for pertinent positives & negatives. A total of 10 systems reviewed and were otherwise negative. VITALS:See Below PHYSICAL EXAMINATION: GENERAL: Awake, alert, fatigued, [id number], in no distress HENT: Normocephalic, atraumatic. Oropharynx dry mucous membranes. EYES: Normal conjunctiva. Mild icterus NECK: Supple. No nuchal rigidity. FROM. No JVD. RESPIRATORY: Clear to auscultation. CARDIAC: Tachycardic rate, normal rhythm. Extremities warm and well perfused. Pulses equal. ABDOMEN: Mild distention but soft. No tenderness to palpation. No rebound or guarding. No masses. RECTAL: Deferred. MUSCULOSKELETAL: Chest examination reveals no tenderness. The back is symmetrical on inspection without obvious abnormality. There is no CVA tenderness to palpation. No joint edema. LOWER EXTREMITIES: 1+ bilateral lower extremity pitting edema. No discoloration. NEURO: Moderate asterixis of bilateral upper extremities. No focal weakness. SKIN: Mild jaundice. Moderate pallor. No rash. ED COURSE: Critical Care: I have personally spent greater than 75 minutes of critical care time in the direct management of this patient. This includes bedside care, interpretation of diagnostic studies, and testing, discussion with consultants, patient, and family members, and other required patient management activities. This 75 minutes is in excess of all separately billable procedures. Dusty Ghosh MD Past Med/Surg History Medical History Anemia Ascites Calculus of kidney Cervical disc disease CKD (chronic kidney disease), stage III Depression Esophageal varices determined by endoscopy GAVE (gastric antral vascular ectasia) Per records GERD (gastroesophageal reflux disease) History of GI bleed discharged from [facility] 06/10/22: borderline hemorrhagic shock-upper GI bleed suspected to be d/t GAVE-received 1 unit of PRBC History of herniated intervertebral disc lumbar area History of SCC (squamous cell carcinoma) of skin S/p removal- follows with derm Hx of blood clots 06/2021 @ [facility]- pt reports blood clot in left arm around IV site after being discharged from hospital- no meds due to current blood loss issue- warm compresses to site per pt- 2 ultrasounds done - no current issues Hx of upper gastrointestinal hemorrhage recent hospitalization at [facility] 06/07/2022 Hyperkalemia Hypothyroidism 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 current work-up for planned liver transplant per [facility] transplant clinic records Lumbar disc disease Oral mucositis On mouthwash daily- no recent issues Pancytopenia Portal hypertensive gastropathy Post-traumatic urethral stricture Psoriasis Psoriatic arthritis PVT (portal vein thrombosis) denies Spinal stenosis EPIDURAL INJECTIONS IN PAST FOR PAIN RELIEF TMJ arthralgia Urinary retention Urinary tract infection Wide-complex tachycardia ON CARDVEDILOL-F/U DR VANESSA LAST VISIT<1 YR AGO Surgical History H/O foot surgery excision of neuroma b/l feet History of appendectomy History of arthroscopy RT KNEE History of cataract surgery RT/LEFT History of cholecystectomy History of esophagogastroduodenoscopy (EGD) last 03/21/22 @ [facility] 02/08/22 Dr. Sara Cloud- EGD- Grade I esophageal varices, Portal hypertensive gastropathy History of herniorrhaphy right inguinal History of lithotripsy History of liver biopsy History of repair of rotator cuff RT/LEFT History of tooth extraction History of urologic surgery Urethral reconstruction 4 years ago at [facility] Nausea and vomiting after administration of anesthetic agent S/P colonoscopy S/P epidural steroid injection S/P orchiectomy Right age 9 for UDT S/P urological surgery (2018) BMG urethroplasty-[facility] Suprapubic catheter AND REMOVAL Family History Grandmother (Maternal) Diabetes Father Renal cancer Mother Aortic aneurysm Denies family history of Ovarian cancer Prostate cancer Myocardial infarction Breast cancer Colorectal cancer Social History Smoking Status: Never smoker Second Hand Exposure: No; Do You Dip or Chew Tobacco: No; Hx Alcohol Use: No Hx Substance Use: No Preferred Language: Kyrgyz Communication Ability: Effective Visual Impairment: No Limitations Hearing Ability: Hard of Hearing Back Digger Operator Required: No Beliefs That Will Affect Care: None marital status: / Current Living Situation: Family Current Living Situation Comment: Lives with son and [id number] current occupational status: retired How many Children do You have: 1 Feels Safe at Home: Yes Diet: low salt Diet Comment: LOW SALT caffeine: Yes during the past year weight has: remained stable Dental Care, Regularly: No Physical Activity Frequency: Other Physical Activity Frequency Comment: does all housework/outside work and cuts wood Seatbelt Use: never Sunscreen Use: No Assistive Devices: Cane Allergies Allergies Allergy/AdvReac Type Severity Reaction Status Date / Time tamsulosin Allergy Intermediate HIVES Verified 09/23/22 16:01 etanercept [From Enbrel] AdvReac Intermediate Increased Verified 09/23/22 16:01 infections Home Meds Home Medications Medication Instructions Recorded Confirmed darbepoetin coretta in polysorbat 100 100 mcg subcut .COMPLEX PRN 05/23/22 09/23/22 mcg/0.5 mL in polysorbate NEEDED injection syringe darbepoetin coretta in polysorbat 200 200 mcg subcut WK 09/23/22 09/23/22 mcg/mL in polysorbate injection paroxetine HCl 10 mg tablet 10 mg PO HS 09/23/22 09/23/22 Previous Rx's Medication Instructions Recorded rifaximin 550 mg tablet (Xifaxan) 550 mg PO BID #60 tabs 01/16/22 sucralfate 100 mg/mL oral 10 ml PO ACHS #1,000 mL 07/21/22 suspension ondansetron HCl 4 mg tablet 4 mg PO Q8H PRN Nausea And 08/08/22 Vomiting #30 tabs pantoprazole 40 mg tablet,delayed 40 mg PO BID #60 tabs 08/08/22 release lactulose 10 gram/15 mL oral 20 g (30 mL) PO DAILY #946 mL 08/10/22 solution furosemide 20 mg tablet 20 mg PO DAILY PRN edema #14 tabs 09/07/22 midodrine 10 mg tablet 15 mg PO TID #135 tabs 09/14/22 Walker #1 ea 09/21/22 Results & Data (ED) Vital Signs Vital Signs - 24 hr 09/23/22 12:19 09/23/22 12:33 09/23/22 12:34 Temperature 36.5 C Temperature Source Oral Pulse Rate 98 H 100 H Pulse Rate [Right Finger] Pulse Rate from SpO2 Sensor Respiratory Rate 18 Respiratory Effort / Characteristics Respiratory Depth Blood Pressure 95/65 L Blood Pressure [Left Arm] Blood Pressure Mean 75 Blood Pressure Mean [Left Arm] Blood Pressure Position Lying Pulse Oximetry 98 Oxygen Delivery Method Room Air Room Air Oxygen Flow Rate 100 Sepsis Recent Fever Within 48 Hours No Sepsis New/Unexplained Change in Mental Status No Sepsis Action Taken by Nursing No Action Required 09/23/22 13:00 09/23/22 13:30 09/23/22 16:13 Temperature 36.5 C Temperature Source Oral Pulse Rate 100 H 101 H 101 H Pulse Rate [Right Finger] Pulse Rate from SpO2 Sensor Respiratory Rate 15 16 20 Respiratory Effort / Characteristics Respiratory Depth Blood Pressure 102/60 120/67 111/64 Blood Pressure [Left Arm] Blood Pressure Mean 74 84 79 Blood Pressure Mean [Left Arm] Blood Pressure Position Pulse Oximetry 98 99 99 Oxygen Delivery Method Room Air Room Air Oxygen Flow Rate Sepsis Recent Fever Within 48 Hours Sepsis New/Unexplained Change in Mental Status Sepsis Action Taken by Nursing 09/23/22 13:40 09/23/22 13:50 09/23/22 14:00 Temperature Temperature Source Pulse Rate 100 H 102 H Pulse Rate [Right Finger] Pulse Rate from SpO2 Sensor 100 H 102 H Respiratory Rate 16 16 Respiratory Effort / Characteristics Respiratory Depth Blood Pressure 88/66 L Blood Pressure [Left Arm] Blood Pressure Mean 80 Blood Pressure Mean [Left Arm] Blood Pressure Position Pulse Oximetry 99 99 Oxygen Delivery Method Oxygen Flow Rate Sepsis Recent Fever Within 48 Hours Sepsis New/Unexplained Change in Mental Status Sepsis Action Taken by Nursing 09/23/22 14:00 09/23/22 14:10 09/23/22 14:19 Temperature Temperature Source Pulse Rate 102 H 105 H Pulse Rate [Right Finger] Pulse Rate from SpO2 Sensor 104 H 104 H 107 H Respiratory Rate 15 17 19 Respiratory Effort / Characteristics Respiratory Depth Blood Pressure Blood Pressure [Left Arm] Blood Pressure Mean Blood Pressure Mean [Left Arm] Blood Pressure Position Pulse Oximetry 98 96 98 Oxygen Delivery Method Oxygen Flow Rate Sepsis Recent Fever Within 48 Hours Sepsis New/Unexplained Change in Mental Status Sepsis Action Taken by Nursing 09/23/22 14:19 09/23/22 14:20 09/23/22 14:30 Temperature Temperature Source Pulse Rate 101 H Pulse Rate [Right Finger] Pulse Rate from SpO2 Sensor 106 H 107 H Respiratory Rate 18 14 Respiratory Effort / Characteristics Respiratory Depth Blood Pressure 92/61 L Blood Pressure [Left Arm] Blood Pressure Mean 82 Blood Pressure Mean [Left Arm] Blood Pressure Position Pulse Oximetry 100 98 Oxygen Delivery Method Oxygen Flow Rate Sepsis Recent Fever Within 48 Hours Sepsis New/Unexplained Change in Mental Status Sepsis Action Taken by Nursing 09/23/22 14:31 09/23/22 14:31 09/23/22 14:40 Temperature Temperature Source Pulse Rate 101 H 102 H Pulse Rate [Right Finger] Pulse Rate from SpO2 Sensor 104 H 101 H Respiratory Rate 15 20 Respiratory Effort / Characteristics Respiratory Depth Blood Pressure 117/58 L Blood Pressure [Left Arm] Blood Pressure Mean 82 Blood Pressure Mean [Left Arm] Blood Pressure Position Pulse Oximetry 98 100 Oxygen Delivery Method Oxygen Flow Rate Sepsis Recent Fever Within 48 Hours Sepsis New/Unexplained Change in Mental Status Sepsis Action Taken by Nursing 09/23/22 14:50 09/23/22 15:00 09/23/22 15:04 Temperature Temperature Source Pulse Rate 108 H 103 H 125 H Pulse Rate [Right Finger] Pulse Rate from SpO2 Sensor 107 H 103 H Respiratory Rate 22 19 14 Respiratory Effort / Characteristics Respiratory Depth Blood Pressure Blood Pressure [Left Arm] Blood Pressure Mean Blood Pressure Mean [Left Arm] Blood Pressure Position Pulse Oximetry 88 L 100 Oxygen Delivery Method Oxygen Flow Rate Sepsis Recent Fever Within 48 Hours Sepsis New/Unexplained Change in Mental Status Sepsis Action Taken by Nursing 09/23/22 15:04 09/23/22 15:10 09/23/22 15:20 Temperature Temperature Source Pulse Rate 103 H 106 H Pulse Rate [Right Finger] Pulse Rate from SpO2 Sensor 103 H 107 H Respiratory Rate 26 H 20 Respiratory Effort / Characteristics Respiratory Depth Blood Pressure 112/76 Blood Pressure [Left Arm] Blood Pressure Mean 85 Blood Pressure Mean [Left Arm] Blood Pressure Position Pulse Oximetry 100 96 Oxygen Delivery Method Oxygen Flow Rate Sepsis Recent Fever Within 48 Hours Sepsis New/Unexplained Change in Mental Status Sepsis Action Taken by Nursing 09/23/22 15:30 09/23/22 15:30 09/23/22 15:40 Temperature Temperature Source Pulse Rate 97 H 99 H Pulse Rate [Right Finger] Pulse Rate from SpO2 Sensor 98 H 99 H Respiratory Rate 21 14 Respiratory Effort / Characteristics Respiratory Depth Blood Pressure 124/86 Blood Pressure [Left Arm] Blood Pressure Mean 99 Blood Pressure Mean [Left Arm] Blood Pressure Position Pulse Oximetry 98 98 Oxygen Delivery Method Oxygen Flow Rate Sepsis Recent Fever Within 48 Hours Sepsis New/Unexplained Change in Mental Status Sepsis Action Taken by Nursing 09/23/22 15:50 09/23/22 16:30 09/23/22 16:45 Temperature 36.5 C 36.5 C Temperature Source Oral Oral Pulse Rate 100 H 106 H 101 H Pulse Rate [Right Finger] Pulse Rate from SpO2 Sensor 101 H Respiratory Rate 17 16 16 Respiratory Effort / Characteristics Respiratory Depth Blood Pressure 98/75 L 94/60 L Blood Pressure [Left Arm] Blood Pressure Mean 82 71 Blood Pressure Mean [Left Arm] Blood Pressure Position Lying Pulse Oximetry 98 95 96 Oxygen Delivery Method Oxygen Flow Rate Sepsis Recent Fever Within 48 Hours Sepsis New/Unexplained Change in Mental Status Sepsis Action Taken by Nursing 09/23/22 16:30 09/23/22 17:15 09/23/22 17:25 Temperature 36.6 C Temperature Source Oral Pulse Rate 104 H 120 H Pulse Rate [Right Finger] 92 H Pulse Rate from SpO2 Sensor Respiratory Rate 21 16 Respiratory Effort / Characteristics Non-Labored Respiratory Depth Normal Blood Pressure 72/57 L Blood Pressure [Left Arm] 116/55 L Blood Pressure Mean 62 Blood Pressure Mean [Left Arm] 75 Blood Pressure Position Pulse Oximetry 100 100 Oxygen Delivery Method Room Air Oxygen Flow Rate Sepsis Recent Fever Within 48 Hours Sepsis New/Unexplained Change in Mental Status Sepsis Action Taken by Nursing 09/23/22 17:30 09/23/22 17:45 09/23/22 18:19 Temperature Temperature Source Pulse Rate 91 H Pulse Rate [Right Finger] 88 97 H Pulse Rate from SpO2 Sensor Respiratory Rate 16 20 16 Respiratory Effort / Characteristics Non-Labored Non-Labored Respiratory Depth Normal Normal Blood Pressure 116/55 L Blood Pressure [Left Arm] 104/57 L 94/73 L Blood Pressure Mean 75 Blood Pressure Mean [Left Arm] 72 80 Blood Pressure Position Pulse Oximetry 99 95 99 Oxygen Delivery Method Room Air Room Air Oxygen Flow Rate Sepsis Recent Fever Within 48 Hours Sepsis New/Unexplained Change in Mental Status Sepsis Action Taken by Nursing 09/23/22 15:54 09/23/22 15:54 09/23/22 16:00 Temperature Temperature Source Pulse Rate 102 H Pulse Rate [Right Finger] Pulse Rate from SpO2 Sensor 102 H Respiratory Rate 21 Respiratory Effort / Characteristics Respiratory Depth Blood Pressure 111/64 109/73 Blood Pressure [Left Arm] Blood Pressure Mean 72 80 Blood Pressure Mean [Left Arm] Blood Pressure Position Pulse Oximetry 97 Oxygen Delivery Method Oxygen Flow Rate Sepsis Recent Fever Within 48 Hours Sepsis New/Unexplained Change in Mental Status Sepsis Action Taken by Nursing 09/23/22 16:00 09/23/22 16:10 09/23/22 16:20 Temperature Temperature Source Pulse Rate 102 H 103 H 104 H Pulse Rate [Right Finger] Pulse Rate from SpO2 Sensor 102 H 103 H 104 H Respiratory Rate 16 12 15 Respiratory Effort / Characteristics Respiratory Depth Blood Pressure Blood Pressure [Left Arm] Blood Pressure Mean Blood Pressure Mean [Left Arm] Blood Pressure Position Pulse Oximetry 99 96 95 Oxygen Delivery Method Oxygen Flow Rate Sepsis Recent Fever Within 48 Hours Sepsis New/Unexplained Change in Mental Status Sepsis Action Taken by Nursing 09/23/22 16:30 09/23/22 16:30 09/23/22 16:40 Temperature Temperature Source Pulse Rate 106 H 101 H Pulse Rate [Right Finger] Pulse Rate from SpO2 Sensor 106 H 102 H Respiratory Rate 16 15 Respiratory Effort / Characteristics Respiratory Depth Blood Pressure 98/75 L Blood Pressure [Left Arm] Blood Pressure Mean 79 Blood Pressure Mean [Left Arm] Blood Pressure Position Pulse Oximetry 95 95 Oxygen Delivery Method Oxygen Flow Rate Sepsis Recent Fever Within 48 Hours Sepsis New/Unexplained Change in Mental Status Sepsis Action Taken by Nursing 09/23/22 16:48 09/23/22 17:08 09/23/22 17:09 Temperature Temperature Source Pulse Rate 99 H 95 H Pulse Rate [Right Finger] Pulse Rate from SpO2 Sensor 100 H 93 H Respiratory Rate 16 20 Respiratory Effort / Characteristics Respiratory Depth Blood Pressure 85/47 L Blood Pressure [Left Arm] Blood Pressure Mean 49 Blood Pressure Mean [Left Arm] Blood Pressure Position Pulse Oximetry 99 99 Oxygen Delivery Method Oxygen Flow Rate Sepsis Recent Fever Within 48 Hours Sepsis New/Unexplained Change in Mental Status Sepsis Action Taken by Nursing 09/23/22 17:10 09/23/22 17:16 09/23/22 17:16 Temperature Temperature Source Pulse Rate 95 H 110 H Pulse Rate [Right Finger] Pulse Rate from SpO2 Sensor 96 H 99 H Respiratory Rate 15 17 Respiratory Effort / Characteristics Respiratory Depth Blood Pressure 72/52 L Blood Pressure [Left Arm] Blood Pressure Mean 59 Blood Pressure Mean [Left Arm] Blood Pressure Position Pulse Oximetry 100 97 Oxygen Delivery Method Oxygen Flow Rate Sepsis Recent Fever Within 48 Hours Sepsis New/Unexplained Change in Mental Status Sepsis Action Taken by Nursing 09/23/22 17:20 09/23/22 17:25 09/23/22 17:25 Temperature Temperature Source Pulse Rate 94 H 90 Pulse Rate [Right Finger] Pulse Rate from SpO2 Sensor 95 H 91 H Respiratory Rate 17 15 Respiratory Effort / Characteristics Respiratory Depth Blood Pressure 116/55 L Blood Pressure [Left Arm] Blood Pressure Mean 78 Blood Pressure Mean [Left Arm] Blood Pressure Position Pulse Oximetry 100 100 Oxygen Delivery Method Oxygen Flow Rate Sepsis Recent Fever Within 48 Hours Sepsis New/Unexplained Change in Mental Status Sepsis Action Taken by Nursing 09/23/22 17:30 09/23/22 17:40 09/23/22 17:45 Temperature Temperature Source Pulse Rate 91 H 86 Pulse Rate [Right Finger] Pulse Rate from SpO2 Sensor 90 85 104 H Respiratory Rate 17 16 23 Respiratory Effort / Characteristics Respiratory Depth Blood Pressure Blood Pressure [Left Arm] Blood Pressure Mean Blood Pressure Mean [Left Arm] Blood Pressure Position Pulse Oximetry 99 100 97 Oxygen Delivery Method Oxygen Flow Rate Sepsis Recent Fever Within 48 Hours Sepsis New/Unexplained Change in Mental Status Sepsis Action Taken by Nursing 09/23/22 17:45 09/23/22 17:50 09/23/22 18:00 Temperature Temperature Source Pulse Rate 90 89 Pulse Rate [Right Finger] Pulse Rate from SpO2 Sensor 90 92 H Respiratory Rate 14 17 Respiratory Effort / Characteristics Respiratory Depth Blood Pressure 104/57 L Blood Pressure [Left Arm] Blood Pressure Mean 72 Blood Pressure Mean [Left Arm] Blood Pressure Position Pulse Oximetry 100 100 Oxygen Delivery Method Oxygen Flow Rate Sepsis Recent Fever Within 48 Hours Sepsis New/Unexplained Change in Mental Status Sepsis Action Taken by Nursing 09/23/22 18:01 09/23/22 18:01 09/23/22 18:10 Temperature Temperature Source Pulse Rate 93 H 94 H Pulse Rate [Right Finger] Pulse Rate from SpO2 Sensor 93 H 94 H Respiratory Rate 20 21 Respiratory Effort / Characteristics Respiratory Depth Blood Pressure 98/58 L Blood Pressure [Left Arm] Blood Pressure Mean 77 Blood Pressure Mean [Left Arm] Blood Pressure Position Pulse Oximetry 100 100 Oxygen Delivery Method Oxygen Flow Rate Sepsis Recent Fever Within 48 Hours Sepsis New/Unexplained Change in Mental Status Sepsis Action Taken by Nursing 09/23/22 18:15 09/23/22 18:15 09/23/22 18:18 Temperature Temperature Source Pulse Rate 94 H 92 H Pulse Rate [Right Finger] Pulse Rate from SpO2 Sensor 93 H 93 H Respiratory Rate 15 15 Respiratory Effort / Characteristics Respiratory Depth Blood Pressure 98/72 L Blood Pressure [Left Arm] Blood Pressure Mean 88 Blood Pressure Mean [Left Arm] Blood Pressure Position Pulse Oximetry 99 99 Oxygen Delivery Method Oxygen Flow Rate Sepsis Recent Fever Within 48 Hours Sepsis New/Unexplained Change in Mental Status Sepsis Action Taken by Nursing 09/23/22 18:18 09/23/22 18:20 09/23/22 18:30 Temperature Temperature Source Pulse Rate 96 H Pulse Rate [Right Finger] Pulse Rate from SpO2 Sensor 96 H Respiratory Rate 15 Respiratory Effort / Characteristics Respiratory Depth Blood Pressure 94/73 L 90/74 L Blood Pressure [Left Arm] Blood Pressure Mean 86 78 Blood Pressure Mean [Left Arm] Blood Pressure Position Pulse Oximetry 99 Oxygen Delivery Method Oxygen Flow Rate Sepsis Recent Fever Within 48 Hours Sepsis New/Unexplained Change in Mental Status Sepsis Action Taken by Nursing 09/23/22 18:30 09/23/22 18:40 09/23/22 18:45 Temperature Temperature Source Pulse Rate 99 H 104 H 102 H Pulse Rate [Right Finger] Pulse Rate from SpO2 Sensor 99 H 104 H 102 H Respiratory Rate 12 14 16 Respiratory Effort / Characteristics Respiratory Depth Blood Pressure Blood Pressure [Left Arm] Blood Pressure Mean Blood Pressure Mean [Left Arm] Blood Pressure Position Pulse Oximetry 98 98 99 Oxygen Delivery Method Room Air Room Air Oxygen Flow Rate Sepsis Recent Fever Within 48 Hours Sepsis New/Unexplained Change in Mental Status Sepsis Action Taken by Nursing 09/23/22 18:45 09/23/22 18:50 09/23/22 19:00 Temperature Temperature Source Pulse Rate 97 H Pulse Rate [Right Finger] Pulse Rate from SpO2 Sensor 97 H Respiratory Rate 15 Respiratory Effort / Characteristics Respiratory Depth Blood Pressure 113/62 93/71 L Blood Pressure [Left Arm] Blood Pressure Mean 80 82 Blood Pressure Mean [Left Arm] Blood Pressure Position Pulse Oximetry 99 Oxygen Delivery Method Oxygen Flow Rate Sepsis Recent Fever Within 48 Hours Sepsis New/Unexplained Change in Mental Status Sepsis Action Taken by Nursing 09/23/22 19:00 09/23/22 19:10 09/23/22 19:15 Temperature Temperature Source Pulse Rate 106 H 100 H 99 H Pulse Rate [Right Finger] Pulse Rate from SpO2 Sensor 105 H 99 H 98 H Respiratory Rate 22 21 17 Respiratory Effort / Characteristics Respiratory Depth Blood Pressure Blood Pressure [Left Arm] Blood Pressure Mean Blood Pressure Mean [Left Arm] Blood Pressure Position Pulse Oximetry 98 99 97 Oxygen Delivery Method Oxygen Flow Rate Sepsis Recent Fever Within 48 Hours Sepsis New/Unexplained Change in Mental Status Sepsis Action Taken by Nursing 09/23/22 19:15 09/23/22 19:20 Temperature Temperature Source Pulse Rate 102 H Pulse Rate [Right Finger] Pulse Rate from SpO2 Sensor 102 H Respiratory Rate 16 Respiratory Effort / Characteristics Respiratory Depth Blood Pressure 105/59 L Blood Pressure [Left Arm] Blood Pressure Mean 85 Blood Pressure Mean [Left Arm] Blood Pressure Position Pulse Oximetry 100 Oxygen Delivery Method Room Air Oxygen Flow Rate Sepsis Recent Fever Within 48 Hours Sepsis New/Unexplained Change in Mental Status Sepsis Action Taken by Nursing Laboratory Data Attestation: I reviewed the patient's lab results. 09/23/22 12:23 09/23/22 12:23 Lab Results 09/23/22 09/23/22 09/23/22 Range/Units 12:23 12:23 12:23 WBC 5.59 (4.8-10.8) K/ul RBC 1.96 L (4.70-6.10) M/uL Hgb 6.9 L* (14.0-18.0) g/dl Hct 21.0 L (42.0-52.0) % MCV 107.1 H (80.0-100.0) fL MCH 35.2 H (25.0-34.0) pg MCHC 32.9 (32.0-36.0) g/dL RDW Std Deviation 85.1 H (36.4-46.3) fL RDW Coeff of Miguel 22.5 H (11.5-14.5) % Plt Count 73 L (130-400) K/uL MPV 9.7 (9.4-12.4) fL Immature Gran % (Auto) 0.5 % Neut % (Auto) 74.0 % Lymph % (Auto) 8.1 % [place] % (Auto) 15.4 % Eos % (Auto) 1.6 % Baso % (Auto) 0.4 % Reticulocyte % (Auto) 6.2 H (0.5-2.0) % Neut # (Auto) 4.14 (1.40-6.50) K/uL Lymph # (Auto) 0.45 L (1.2-3.4) K/uL [place] # (Auto) 0.86 H (0.11-0.59) K/uL Eos # (Auto) 0.09 (0-0.50) K/uL Baso # (Auto) 0.02 (0-0.2) K/uL Reticulocyte # 0.12 H (0.02-0.10) 10^6/uL Immature Gran # (Auto) 0.03 (0.01-0.20) K/uL Polychromasia 1+ Anisocytosis Present Macrocytosis Present Echinocytes 1+ PT 16.1 H (9.0-12.0) Seconds INR 1.5 H (0.9-1.1) Sodium 132 L (136-145) mmol/L Potassium 6.0 H (3.5-5.1) mmol/L Chloride 103 (98-107) mmol/L Carbon Dioxide 23 (21-32) mmol/L Anion Gap 6 (3-11) BUN 49 H (6-23) mg/dl Creatinine 2.58 H (0.6-1.4) mg/dl Est Cr Clr Drug Dosing 33.7 ml/min Est GFR ( Amer) 28.4 ml/min Est GFR (Non-Af Amer) 24.5 ml/min BUN/Creatinine Ratio 19.0 (10-20) Glucose 156 H (70-99(Fasting)) mg/dl POC Glucose (70-99) mg/dl Calcium 10.6 H (8.6-10.3) mg/dl Ionized Calcium Phosphorus 3.0 (2.5-4.9) mg/dl Magnesium 2.0 (1.7-2.4) mg/dl Iron (35-175) mcg/dl TIBC (250-450) mcg/dl Unsaturated IBC (155-355) mcg/dl Transferrin (200-360) mg/dl Transferrin % Sat (20-50) % Ferritin (8-388) ng/ml Total Bilirubin 4.0 H (0.2-1.0) mg/dl Direct Bilirubin 1.7 H (0-0.2) mg/dl AST 35 (13-39) U/L ALT 24 (7-52) U/L Alkaline Phosphatase 132 H (34-104) U/L Ammonia (18-72) umol/L Troponin I High Sens 8.6 (0-20) pg/ml Total Protein 5.1 L (6.0-8.3) gm/dl Albumin 2.2 L (3.4-5.0) gm/dl Globulin 2.9 (2.5-4.0) gm/dl Albumin/Globulin Ratio 0.8 L (0.9-2) Lipase 13 (11-82) U/L Vitamin B12 (180-914) pg/ml Folate (>5.38) ng/ml Procalcitonin (0-0.5) ng/ml Blood Type Antibody Screen Crossmatch 09/23/22 09/23/22 09/23/22 Range/Units 12:23 12:23 12:23 WBC (4.8-10.8) K/ul RBC (4.70-6.10) M/uL Hgb (14.0-18.0) g/dl Hct (42.0-52.0) % MCV (80.0-100.0) fL MCH (25.0-34.0) pg MCHC (32.0-36.0) g/dL RDW Std Deviation (36.4-46.3) fL RDW Coeff of Miguel (11.5-14.5) % Plt Count (130-400) K/uL MPV (9.4-12.4) fL Immature Gran % (Auto) % Neut % (Auto) % Lymph % (Auto) % [place] % (Auto) % Eos % (Auto) % Baso % (Auto) % Reticulocyte % (Auto) (0.5-2.0) % Neut # (Auto) (1.40-6.50) K/uL Lymph # (Auto) (1.2-3.4) K/uL [place] # (Auto) (0.11-0.59) K/uL Eos # (Auto) (0-0.50) K/uL Baso # (Auto) (0-0.2) K/uL Reticulocyte # (0.02-0.10) 10^6/uL Immature Gran # (Auto) (0.01-0.20) K/uL Polychromasia Anisocytosis Macrocytosis Echinocytes PT (9.0-12.0) Seconds INR (0.9-1.1) Sodium (136-145) mmol/L Potassium (3.5-5.1) mmol/L Chloride (98-107) mmol/L Carbon Dioxide (21-32) mmol/L Anion Gap (3-11) BUN (6-23) mg/dl Creatinine (0.6-1.4) mg/dl Est Cr Clr Drug Dosing ml/min Est GFR ( Amer) ml/min Est GFR (Non-Af Amer) ml/min BUN/Creatinine Ratio (10-20) Glucose (70-99(Fasting)) mg/dl POC Glucose (70-99) mg/dl Calcium (8.6-10.3) mg/dl Ionized Calcium Phosphorus (2.5-4.9) mg/dl Magnesium (1.7-2.4) mg/dl Iron 104 (35-175) mcg/dl TIBC 178 L (250-450) mcg/dl Unsaturated IBC 74 L (155-355) mcg/dl Transferrin 130 L (200-360) mg/dl Transferrin % Sat 58 H (20-50) % Ferritin 86.8 (8-388) ng/ml Total Bilirubin (0.2-1.0) mg/dl Direct Bilirubin (0-0.2) mg/dl AST (13-39) U/L ALT (7-52) U/L Alkaline Phosphatase (34-104) U/L Ammonia (18-72) umol/L Troponin I High Sens (0-20) pg/ml Total Protein (6.0-8.3) gm/dl Albumin (3.4-5.0) gm/dl Globulin (2.5-4.0) gm/dl Albumin/Globulin Ratio (0.9-2) Lipase (11-82) U/L Vitamin B12 974 H (180-914) pg/ml Folate 19.71 (>5.38) ng/ml Procalcitonin 0.23 (0-0.5) ng/ml Blood Type Antibody Screen Crossmatch 09/23/22 09/23/22 09/23/22 Range/Units 12:52 14:16 15:18 WBC (4.8-10.8) K/ul RBC (4.70-6.10) M/uL Hgb (14.0-18.0) g/dl Hct (42.0-52.0) % MCV (80.0-100.0) fL MCH (25.0-34.0) pg MCHC (32.0-36.0) g/dL RDW Std Deviation (36.4-46.3) fL RDW Coeff of Miguel (11.5-14.5) % Plt Count (130-400) K/uL MPV (9.4-12.4) fL Immature Gran % (Auto) % Neut % (Auto) % Lymph % (Auto) % [place] % (Auto) % Eos % (Auto) % Baso % (Auto) % Reticulocyte % (Auto) (0.5-2.0) % Neut # (Auto) (1.40-6.50) K/uL Lymph # (Auto) (1.2-3.4) K/uL [place] # (Auto) (0.11-0.59) K/uL Eos # (Auto) (0-0.50) K/uL Baso # (Auto) (0-0.2) K/uL Reticulocyte # (0.02-0.10) 10^6/uL Immature Gran # (Auto) (0.01-0.20) K/uL Polychromasia Anisocytosis Macrocytosis Echinocytes PT (9.0-12.0) Seconds INR (0.9-1.1) Sodium (136-145) mmol/L Potassium (3.5-5.1) mmol/L Chloride (98-107) mmol/L Carbon Dioxide (21-32) mmol/L Anion Gap (3-11) BUN (6-23) mg/dl Creatinine (0.6-1.4) mg/dl Est Cr Clr Drug Dosing ml/min Est GFR ( Amer) ml/min Est GFR (Non-Af Amer) ml/min BUN/Creatinine Ratio (10-20) Glucose (70-99(Fasting)) mg/dl POC Glucose (70-99) mg/dl Calcium (8.6-10.3) mg/dl Ionized Calcium Cancelled Phosphorus (2.5-4.9) mg/dl Magnesium (1.7-2.4) mg/dl Iron (35-175) mcg/dl TIBC (250-450) mcg/dl Unsaturated IBC (155-355) mcg/dl Transferrin (200-360) mg/dl Transferrin % Sat (20-50) % Ferritin (8-388) ng/ml Total Bilirubin (0.2-1.0) mg/dl Direct Bilirubin (0-0.2) mg/dl AST (13-39) U/L ALT (7-52) U/L Alkaline Phosphatase (34-104) U/L Ammonia 178.0 H (18-72) umol/L Troponin I High Sens (0-20) pg/ml Total Protein (6.0-8.3) gm/dl Albumin (3.4-5.0) gm/dl Globulin (2.5-4.0) gm/dl Albumin/Globulin Ratio (0.9-2) Lipase (11-82) U/L Vitamin B12 (180-914) pg/ml Folate (>5.38) ng/ml Procalcitonin (0-0.5) ng/ml Blood Type O Positive Antibody Screen NEGATIVE Crossmatch See Detail 09/23/22 09/23/22 09/23/22 Range/Units 15:46 16:05 17:22 WBC (4.8-10.8) K/ul RBC (4.70-6.10) M/uL Hgb (14.0-18.0) g/dl Hct (42.0-52.0) % MCV (80.0-100.0) fL MCH (25.0-34.0) pg MCHC (32.0-36.0) g/dL RDW Std Deviation (36.4-46.3) fL RDW Coeff of Miguel (11.5-14.5) % Plt Count (130-400) K/uL MPV (9.4-12.4) fL Immature Gran % (Auto) % Neut % (Auto) % Lymph % (Auto) % [place] % (Auto) % Eos % (Auto) % Baso % (Auto) % Reticulocyte % (Auto) (0.5-2.0) % Neut # (Auto) (1.40-6.50) K/uL Lymph # (Auto) (1.2-3.4) K/uL [place] # (Auto) (0.11-0.59) K/uL Eos # (Auto) (0-0.50) K/uL Baso # (Auto) (0-0.2) K/uL Reticulocyte # (0.02-0.10) 10^6/uL Immature Gran # (Auto) (0.01-0.20) K/uL Polychromasia Anisocytosis Macrocytosis Echinocytes PT (9.0-12.0) Seconds INR (0.9-1.1) Sodium (136-145) mmol/L Potassium (3.5-5.1) mmol/L Chloride (98-107) mmol/L Carbon Dioxide (21-32) mmol/L Anion Gap (3-11) BUN (6-23) mg/dl Creatinine (0.6-1.4) mg/dl Est Cr Clr Drug Dosing ml/min Est GFR ( Amer) ml/min Est GFR (Non-Af Amer) ml/min BUN/Creatinine Ratio (10-20) Glucose (70-99(Fasting)) mg/dl POC Glucose 222 H 144 H (70-99) mg/dl Calcium (8.6-10.3) mg/dl Ionized Calcium 1.48 H Phosphorus (2.5-4.9) mg/dl Magnesium (1.7-2.4) mg/dl Iron (35-175) mcg/dl TIBC (250-450) mcg/dl Unsaturated IBC (155-355) mcg/dl Transferrin (200-360) mg/dl Transferrin % Sat (20-50) % Ferritin (8-388) ng/ml Total Bilirubin (0.2-1.0) mg/dl Direct Bilirubin (0-0.2) mg/dl AST (13-39) U/L ALT (7-52) U/L Alkaline Phosphatase (34-104) U/L Ammonia (18-72) umol/L Troponin I High Sens (0-20) pg/ml Total Protein (6.0-8.3) gm/dl Albumin (3.4-5.0) gm/dl Globulin (2.5-4.0) gm/dl Albumin/Globulin Ratio (0.9-2) Lipase (11-82) U/L Vitamin B12 (180-914) pg/ml Folate (>5.38) ng/ml Procalcitonin (0-0.5) ng/ml Blood Type Antibody Screen Crossmatch Administered Medications Pantoprazole Sodium 40 mg/ (Dextrose) 100 mls @ 20 mls/hr IV Q5H LUZ Stop: 10/23/22 15:14 Last Admin: 09/23/22 15:12 Dose: 8 mg/hr, 20 mls/hr Documented By: ANETA Octreotide Acetate 500 mcg/ (Dextrose) 100.5 mls @ 10.05 mls/hr IV .Q10H LUZ Stop: 10/23/22 14:59 Last Admin: 09/23/22 15:20 Dose: 50 mcg/hr, 10.1 mls/hr Documented By: KT Discontinued Medications Dextrose (Dextrose 50% 50 Ml Syringe) 50 ml IV NOW ONE Stop: 09/23/22 15:02 Last Admin: 09/23/22 15:11 Dose: 50 ml Documented By: ANETA Sodium Chloride (Nss) 500 mls @ 999 mls/hr IV .Q31M ONE Stop: 09/23/22 15:17 Last Admin: 09/23/22 15:27 Dose: Not Given Documented By: ANETA Pantoprazole Sodium (Protonix Bolus/Drip) 0 mls @ 1 mls/hr IV ONE STA Stop: 09/23/22 14:48 Last Admin: 09/23/22 15:13 Dose: 1 mls/hr Documented By: ANETA Pantoprazole Sodium 80 mg/ (Dextrose) 120 mls @ 400 mls/hr IV NOW ONE Stop: 09/23/22 15:04 Last Infusion: 09/23/22 15:30 Dose: 0 mls/hr Documented By: Admin: 09/23/22 15:12 Dose: 400 mls/hr Documented By: ANETA Octreotide Acetate 50 mcg/ (Syringe) 10 mls @ 3 mls/min IV ONE STA Stop: 09/23/22 14:55 Last Admin: 09/23/22 15:20 Dose: 3 mls/min Documented By: ANETA Phytonadione 10 mg/ Dextrose 51 mls @ 102 mls/hr IV ONE STA Stop: 09/23/22 15:31 Last Infusion: 09/23/22 15:57 Dose: 0 mls/hr Documented By: Admin: 09/23/22 15:27 Dose: 102 mls/hr Documented By: ANETA Insulin Human Regular (Novolin-R Insulin Per Unit Charge) 10 units IV NOW STA Stop: 09/23/22 15:02 Last Admin: 09/23/22 15:11 Dose: 10 units Documented By: ANETA Co-signed By: JOSEPH Midodrine (Midodrine Hcl 10 Mg Tab) 10 mg PO ONE STA Stop: 09/23/22 16:52 Last Admin: 09/23/22 17:32 Dose: 10 mg Documented By: JOSEPH Miscellaneous (Stat Iv) 1 each N/A NOW STA Stop: 09/23/22 14:53 Last Admin: 09/23/22 15:20 Dose: 1 each Documented By: ANETA Ondansetron HCl (Ondansetron Inj 2 Mg/Ml 2 Ml Vial) 4 mg IV NOW STA Stop: 09/23/22 15:40 Last Admin: 09/23/22 15:41 Dose: 4 mg Documented By: JOSEPH Imaging Data Radiologist's Impression: Chest X-Ray 09/23/22 12:34 XR chest 1V portable HISTORY: weakness COMPARISON: Chest 09/01/2022. FINDINGS: There is mild elevation of the right hemidiaphragm. Surgical clips are seen within the upper abdomen. There are low lung volumes. No focal lung consolidations to suggest a pneumonia. No evidence for pulmonary edema. The cardiac silhouette remains borderline enlarged. IMPRESSION: No acute process. ACT 112: Negative or not required by law. Electronically signed by: Joaquín Bolden M.D. 09/23/2022 2:14 PM Abdomen/Pelvis CT 09/23/22 15:08 CT chest diagnostic wo con, CT abd pelvis wo con CT DOSE: 3251.47 mGy.cm HISTORY: Weakness. cirrhosis, anemia, hyperK, ?UTI TECHNIQUE: Multiaxial CT images of the chest , abdomen, and pelvis were performed without contrast. A dose lowering technique was utilized adhering to the principles of ALARA. COMPARISON: Abdomen and pelvis CT 08/13/2022. FINDINGS: Chest CT: The central airways are patent. No pneumothorax. No pleural effusions. Small bibasilar linear densities favor subsegmental atelectasis are scarring. Otherwise, no focal lung consolidations to suggest a pneumonia. No evidence for pulmonary edema. No acute fractures. No suspicious lytic or blastic osseous lesions. Bilateral gynecomastia. Hypodense blood pool consistent with anemia. Mild calcified plaque within the normal caliber thoracic aorta. The heart is mildly enlarged. No pericardial effusion. Normal esophagus. No mediastinal or hilar lymphadenopathy. Moderate coronary artery calcifications are noted. Abdomen/pelvis CT: No pneumoperitoneum. No pneumatosis. No acute fractures identified. Mild body wall edema is noted. There is moderate gastric wall thickening. This has progressed in the interval. There is a vascular clip again noted within the proximal stomach. The liver remains atrophic and demonstrates a nodular contour consistent with cirrhosis. Prior cholecystectomy. The spleen is normal in size. The adrenal glands are unremarkable. Bilateral nephrolithiasis. No ureteral stones. No hydronephrosis. Fatty atrophy of the pancreas again noted. No retroperitoneal lymphadenopathy. Normal caliber abdominal aorta. A left splenorenal shunt and multiple varicosities again noted within the left side the abdomen. This is consistent with underlying portal hypertension. The main portal vein is atrophic and partially calcified. This suggests chronic thrombus. This remains unchanged. No pelvic lymphadenopathy. There is a small amount of scattered ascites. This is slightly progressed. The bladder is un remarkable. Moderate to large amount well-formed stool seen within the colon and rectum. This most pronounced within the rectum. No dilated loops of small bowel to suggest an obstruction. Moderate circumferential thickening within the ascending colon/cecum. This could represent a nonspecific colitis or portal colopathy. This has progressed in the interval. IMPRESSION: 1. No acute process within the chest. 2. Cirrhotic liver with stigmata of portal hypertension including splenomegaly, abdominal varicosities, and a small amount of ascites. The ascites has slightly progressed in the interval. 3. Mild body wall edema has progressed. 4. Moderate gastric wall thickening. This has progressed and is consistent with a nonspecific gastritis. 5. Moderate circumferential thickening of the ascending colon/cecum. This could represent a colitis versus portal colopathy. 6. The main portal vein is atrophic and partially calcified suggesting chronic partial thrombosis. This remains unchanged. 7. Bilateral nephrolithiasis. No hydronephrosis. 8. Fecal retention. 9. Additional findings as described above. ACT 112: Negative or not required by law. Electronically signed by: Joaquín Bolden M.D. 09/23/2022 6:[address] 09/23/22 15:08 CT chest diagnostic wo con, CT abd pelvis wo con CT DOSE: 3251.47 mGy.cm HISTORY: Weakness. cirrhosis, anemia, hyperK, ?UTI TECHNIQUE: Multiaxial CT images of the chest , abdomen, and pelvis were performed without contrast. A dose lowering technique was utilized adhering to the principles of ALARA. COMPARISON: Abdomen and pelvis CT 08/13/2022. FINDINGS: Chest CT: The central airways are patent. No pneumothorax. No pleural effusions. Small bibasilar linear densities favor subsegmental atelectasis are scarring. Otherwise, no focal lung consolidations to suggest a pneumonia. No evidence for pulmonary edema. No acute fractures. No suspicious lytic or blastic osseous lesions. Bilateral gynecomastia. Hypodense blood pool consistent with anemia. Mild calcified plaque within the normal caliber thoracic aorta. The heart is mildly enlarged. No pericardial effusion. Normal esophagus. No mediastinal or hilar lymphadenopathy. Moderate coronary artery calcifications are noted. Abdomen/pelvis CT: No pneumoperitoneum. No pneumatosis. No acute fractures identified. Mild body wall edema is noted. There is moderate gastric wall thickening. This has progressed in the interval. There is a vascular clip again noted within the proximal stomach. The liver remains atrophic and demonstrates a nodular contour consistent with cirrhosis. Prior cholecystectomy. The spleen is normal in size. The adrenal glands are unremarkable. Bilateral nephrolithiasis. No ureteral stones. No hydronephrosis. Fatty atrophy of the pancreas again noted. No retroperitoneal lymphadenopathy. Normal caliber abdominal aorta. A left splenorenal shunt and multiple varicosities again noted within the left side the abdomen. This is consistent with underlying portal hypertension. The main portal vein is atrophic and partially calcified. This suggests chronic thrombus. This remains unchanged. No pelvic lymphadenopathy. There is a small amount of scattered ascites. This is slightly progressed. The bladder is unremarkable. Moderate to large amount well-formed stool seen within the colon and rectum. This most pronounced within the rectum. No dilated loops of small bowel to suggest an obstruction. Moderate circumferential thickening within the ascending colon/cecum. This could represent a nonspecific colitis or portal colopathy. This has progressed in the interval. IMPRESSION: 1. No acute process within the chest. 2. Cirrhotic liver with stigmata of portal hypertension including splenomegaly, abdominal varicosities, and a small amount of ascites. The ascites has slightly progressed in the interval. 3. Mild body wall edema has progressed. 4. Moderate gastric wall thickening. This has progressed and is consistent with a nonspecific gastritis. 5. Moderate circumferential thickening of the ascending colon/cecum. This could represent a colitis versus portal colopathy. 6. The main portal vein is atrophic and partially calcified suggesting chronic partial thrombosis. This remains unchanged. 7. Bilateral nephrolithiasis. No hydronephrosis. 8. Fecal retention. 9. Additional findings as described above. ACT 112: Negative or not required by law. Electronically signed by: Joaquín Bolden M.D. 09/23/2022 6:[address] 09/23/22 15:[address] DOSE: HISTORY: cirrhosis, confusion TECHNIQUE: Multiaxial CT images of the head were performed without the use of intravenous contrast. Automated exposure control was utilized for this study. A dose lowering technique was utilized adhering to the principles of ALARA. Comparison: Head CT 05/23/2022. Findings: The paranasal sinuses and mastoid air cells are clear. The calvarium and skull base are intact. The ventricles and sulci are within normal limits. There is no mass, hematoma, midline shift, or acute infarct. Impression: No acute intracranial abnormality. ACT 112: Negative or not required by law. Electronically signed by: Joaquín Bolden M.D. 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, Hyperkalemia, Symptomatic anemia, Hypercalcemia, CKD (chronic kidney disease) Patient Disposition: Admitted As Inpatient Discharge Instructions Interventions: ED Discharge Assessment Last Done: 09/23/22 19:35 Forms Stand Alone Forms: [facility] Prescriptions Prescriptions: No Action Xifaxan 550 mg tablet 550 mg PO BID Qty: 60 5RF ondansetron HCl 4 mg tablet 4 mg PO Q8H PRN (Reason: Nausea And Vomiting) Qty: 30 1RF pantoprazole 40 mg tablet,delayed release (DR/EC) 40 mg PO BID Qty: 60 0RF lactulose 10 gram/15 mL solution 20 g PO DAILY Qty: 946 3RF Rx Instructions: titrate for 2-3 bowel movements each day. (DME) Ankit See Rx Instructions .Route .MEDSUPPLY Qty: 1 0RF Rx Instructions: As directed furosemide 20 mg tablet 20 mg PO DAILY PRN (Reason: edema) Qty: 14 1RF midodrine 10 mg tablet 15 mg PO TID Qty: 135 1RF Rx Instructions: do not give last dose of day after 6PM or within 4 hrs of bedtime darbepoetin coretta in polysorbat 100 mcg/0.5 mL syringe 100 mcg subcut .COMPLEX PRN (Reason: NEEDED) Rx Instructions: 100 mcg subcutaneously Q weekly until Hgb >9. Then resume, Q other week. Hold for Hgb >10.; sucralfate 100 mg/mL suspension 10 ml PO ACHS Qty: 1000 2RF paroxetine HCl 10 mg tablet 10 mg PO HS darbepoetin coretta in polysorbat 200 mcg/mL solution 200 mcg subcut WK Rx Instructions: START THIS DOSE 10/05/22 Referrals Referrals: Fiorella Castellano, [Primary Care Provider] -
[2022-09-23] MEDS: OCTREOTIDE ACETATE 500 MCG in DEXTROSE 5% 100 ML IV SCH ×2 (15:20→22:49)
--- NOTE | 2022-09-23 15:26 | History & Physical Report ---
Date of Service September 23, 2022 Assessment & Plan (1) Acute blood loss anemia: Plan: Concerning history of GAVE and esophageal varices Transfuse1 unit packed RBCs to aim Hgb > 7 Repeat Hgb q8h, transfuse Hgb < 7 or symptomatic Suspected GI bleed in setting of liver cirrhosis - IV pantoprazole, octreotide, ceftriaxone Consult GI given history of GAVE (2) Hyperkalemia: Plan: Pt reports supplementation started recently. Will discontinue. Dextrose 50% 50ml and insulin 10 units Repeat labs around 10pm (3) Ascites: Plan: Will tackle anemia first prior to requiring paracentesis but likely to need this admission (4) Hyperammonemia: Plan: No significant hepatic encephalopathy - unable to give PO lactulose due to GI bleed, will therefore give regular lactulose enemas (5) CKD (chronic kidney disease): Plan: At baseline, continue to monitor (6) Symptomatic anemia: (7) GAVE (gastric antral vascular ectasia): (8) 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: (9) Hypothyroidism: Plan VTE Prophylaxis - avoid chemical Diet - NPO Disposition - admit to PCU Admission and Anticipated Discharge Date Admission Date: September 23, 2022 History of Present Illness Chief Complaint: Generalized weakness and edema Primary Care Provider: DO Sebastian Schneider (Bill) Khang is a 67 year old male with liver cirrhosis, GAVE, recurrent GI bleeds and CKD who presents to the ER with generalized weakness and worsening edema over the last week. He notes his abdomen is starting to fill up again with some mild tenderness. No other complaints from the patient. He is alert and orientated. No one sided weakness, change in speech, hearing or vision. With regards to his high potassium. He reports recently seeing the liver transplant team and being told his potassium was low so to start on potassium supplementation (although no prescription of this was found on external med rec). Allergies Allergy/AdvReac Type Severity Reaction Status Date / Time tamsulosin Allergy Intermediate HIVES Verified 09/23/22 16:01 etanercept [From Enbrel] AdvReac Intermediate Increased Verified 09/23/22 16:01 infections Home Medications Medication Instructions Recorded Confirmed Type rifaximin 550 mg tablet (Xifaxan) 550 mg PO BID #60 tabs 01/16/22 09/23/22 Rx darbepoetin coretta in polysorbat 100 100 mcg subcut .COMPLEX PRN 05/23/22 09/23/22 History mcg/0.5 mL in polysorbate NEEDED injection syringe sucralfate 100 mg/mL oral 10 ml PO ACHS #1,000 mL 07/21/22 09/23/22 Rx suspension ondansetron HCl 4 mg tablet 4 mg PO Q8H PRN Nausea And 08/08/22 09/23/22 Rx Vomiting #30 tabs pantoprazole 40 mg tablet,delayed 40 mg PO BID #60 tabs 08/08/22 09/23/22 Rx release lactulose 10 gram/15 mL oral 20 g (30 mL) PO DAILY #946 mL 08/10/22 09/23/22 Rx solution furosemide 20 mg tablet 20 mg PO DAILY PRN edema #14 tabs 09/07/22 09/23/22 Rx midodrine 10 mg tablet 15 mg PO TID #135 tabs 09/14/22 09/23/22 Rx Walker #1 ea 09/21/22 Rx darbepoetin coretta in polysorbat 200 200 mcg subcut WK 09/23/22 09/23/22 History mcg/mL in polysorbate injection paroxetine HCl 10 mg tablet 10 mg PO HS 09/23/22 09/23/22 History Past Med/Surg History Medical History (Updated 09/24/22 @ 07:04 by Jonny Lares MD) Anemia Ascites Calculus of kidney Cervical disc disease CKD (chronic kidney disease), stage III Depression Esophageal varices determined by endoscopy GAVE (gastric antral vascular ectasia) Per records GERD (gastroesophageal reflux disease) History of GI bleed discharged from [facility] 06/10/22: borderline hemorrhagic shock-upper GI bleed suspected to be d/t GAVE-received 1 unit of PRBC History of herniated intervertebral disc lumbar area History of SCC (squamous cell carcinoma) of skin S/p removal- follows with derm Hx of blood clots 06/[address] [facility]- pt reports blood clot in left arm around IV site after being discharged from hospital- no meds due to current blood loss issue- warm compr esses to site per pt- 2 ultrasounds done - no current issues Hx of upper gastrointestinal hemorrhage recent hospitalization at [facility] 06/07/2022 Hyperkalemia Hypothyroidism 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 current work-up for planned liver transplant per [facility] transplant clinic records Lumbar disc disease Oral mucositis On mouthwash daily- no recent issues Pancytopenia Portal hypertensive gastropathy Post-traumatic urethral stricture Psoriasis Psoriatic arthritis PVT (portal vein thrombosis) denies Spinal stenosis EPIDURAL INJECTIONS IN PAST FOR PAIN RELIEF TMJ arthralgia Urinary retention Urinary tract infection Wide-complex tachycardia ON CARDVEDILOL-F/U DR VANESSA LAST VISIT<1 YR AGO Surgical History H/O foot surgery excision of neuroma b/l feet History of appendectomy History of arthroscopy RT KNEE History of cataract surgery RT/LEFT History of cholecystectomy History of esophagogastroduodenoscopy (EGD) last 03/21/22 @ [facility] 02/08/22 Dr. Sara Cloud- EGD- Grade I esophageal varices, Portal hypertensive gastropathy History of herniorrhaphy right inguinal History of lithotripsy History of liver biopsy History of repair of rotator cuff RT/LEFT History of tooth extraction History of urologic surgery Urethral reconstruction 4 years ago at [facility] Nausea and vomiting after administration of anesthetic agent S/P colonoscopy S/P epidural steroid injection S/P orchiectomy Right age 9 for UDT S/P urological surgery (2018) BMG urethroplasty-[facility] Suprapubic catheter AND REMOVAL Family History Grandmother (Maternal) Diabetes Father Renal cancer Mother Aortic aneurysm Denies family history of Ovarian cancer Prostate cancer Myocardial infarction Breast cancer Colorectal cancer Social History Smoking Status: Never smoker Second Hand Exposure: No; Do You Dip or Chew Tobacco: No; Hx Alcohol Use: No Hx Substance Use: No Preferred Language: Turkmen Communication Ability: Effective Visual Impairment: No Limitations Hearing Ability: Hard of Hearing Fagot Heater Required: No Beliefs That Will Affect Care: None marital status: / Current Living Situation: Family Current Living Situation Comment: Lives with son current occupational status: retired How many Children do You have: 1 Feels Safe at Home: Yes Diet: low salt Diet Comment: LOW SALT caffeine: Yes during the past year weight has: remained stable Dental Care, Regularly: No Physical Activity Frequency: Other Physical Activity Frequency Comment: does all housework/outside work and cuts wood Seatbelt Use: never Sunscreen Use: No Assistive Devices: Cane, Glasses, Walker and Wheelchair Review of Systems Review of Systems: All systems reviewed & are unremarkable except as noted in HPI & below Physical Exam Constitutional: + frail appearing; no acute distress Eyes: + anicteric sclerae ENMT: Mouth: oral mucous membranes not dry Neck: normal visual inspection and trachea midline Respiratory: normal respiratory effort Auscultation: lungs clear to auscultation bilaterally Cardiovascular: Rate/Rhythm: regular rate and regular rhythm Heart Sounds: normal S1 and normal S2 Extremities: + edema (3+ to abdomen) Gastrointestinal (Abdomen): Inspection/Auscultation: abdomen normal to inspe ction and normal bowel sounds Percussion/Palpation: + abdomen tender (mild throughout), abdomen soft and + ascites; no guarding and abdomen not rigid Musculoskeletal: no cyanosis or clubbing, extremities motor strength 5/5 Skin: normal turgor; no jaundice Neurologic: Motor/Sensory: no tremor and no asterixis Psychiatric: Orientation: alert and oriented x 3 Results & Data Results & Data Vital Signs (Past 12 Hours) Vital Signs Temp Pulse Resp BP Pulse Ox O2 Del Method O2 Flow Rate 09/23/22 13:30 101 H 16 120/67 99 Room Air 09/23/22 13:00 100 H 15 102/60 98 Room Air 09/23/22 12:34 100 H 09/23/22 12:33 Room Air 100 09/23/22 12:19 36.5 C 98 H 18 95/65 L 98 Room Air Laboratory Results Abnormal lab results 09/23/22 09/23/22 09/23/22 Range/Units 12:23 12:23 12:23 RBC 1.96 L (4.70-6.10) M/uL Hgb 6.9 L* (14.0-18.0) g/dl Hct 21.0 L (42.0-52.0) % MCV 107.1 H (80.0-100.0) fL MCH 35.2 H (25.0-34.0) pg RDW Std Deviation 85.1 H (36.4-46.3) fL RDW Coeff of Miguel 22.5 H (11.5-14.5) % Plt Count 73 L (130-400) K/uL Reticulocyte % (Auto) 6.2 H (0.5-2.0) % Lymph # (Auto) 0.45 L (1.2-3.4) K/uL [place] # (Auto) 0.86 H (0.11-0.59) K/uL Reticulocyte # 0.12 H (0.02-0.10) 10^6/uL PT 16.1 H (9.0-12.0) Seconds INR 1.5 H (0.9-1.1) Sodium 132 L (136-145) mmol/L Potassium 6.0 H (3.5-5.1) mmol/L BUN 49 H (6-23) mg/dl Creatinine 2.58 H (0.6-1.4) mg/dl Glucose 156 H (70-99(Fasting)) mg/dl Calcium 10.6 H (8.6-10.3) mg/dl TIBC (250-450) mcg/dl Unsaturated IBC (155-355) mcg/dl Transferrin (200-360) mg/dl Transferrin % Sat (20-50) % Total Bilirubin 4.0 H (0.2-1.0) mg/dl Direct Bilirubin 1.7 H (0-0.2) mg/dl Alkaline Phosphatase 132 H (34-104) U/L Ammonia (18-72) umol/L Total Protein 5.1 L (6.0-8.3) gm/dl Albumin 2.2 L (3.4-5.0) gm/dl Albumin/Globulin Ratio 0.8 L (0.9-2) 09/23/22 09/23/22 Range/Units 12:23 12:52 RBC (4.70-6.10) M/uL Hgb (14.0-18.0) g/dl Hct (42.0-52.0) % MCV (80.0-100.0) fL MCH (25.0-34.0) pg RDW Std Deviation (36.4-46.3) fL RDW Coeff of Miguel (11.5-14.5) % Plt Count (130-400) K/uL Reticulocyte % (Auto) (0.5-2.0) % Lymph # (Auto) (1.2-3.4) K/uL [place] # (Auto) (0.11-0.59) K/uL Reticulocyte # (0.02-0.10) 10^6/uL PT (9.0-12.0) Seconds INR (0.9-1.1) Sodium (136-145) mmol/L Potassium (3.5-5.1) mmol/L BUN (6-23) mg/dl Creatinine (0.6-1.4) mg/dl Glucose (70-99(Fasting)) mg/dl Calcium (8.6-10.3) mg/dl TIBC 178 L (250-450) mcg/dl Unsaturated IBC 74 L (155-355) mcg/dl Transferrin 130 L (200-360) mg/dl Transferrin % Sat 58 H (20-50) % Total Bilirubin (0.2-1.0) mg/dl Direct Bilirubin (0-0.2) mg/dl Alkaline Phosphatase (34-104) U/L Ammonia 178.0 H (18-72) umol/L Total Protein (6.0-8.3) gm/dl Albumin (3.4-5.0) gm/dl Albumin/Globulin Ratio (0.9-2) Diagnostic Findings XR chest 1V portable HISTORY: weakness COMPARISON: Chest 09/01/2022. FINDINGS: There is mild elevation of the right hemidiaphragm. Surgical clips are seen within the upper abdomen. There are low lung volumes. No focal lung consolidations to suggest a pneumonia. No evidence for pulmonary edema. The cardiac silhouette remains borderline enlarged. IMPRESSION: No acute process. Medications Administered ER Medications Given: Pantoprazole 80mg IV bolus and 8mg/hr drip Octreotide 50 mcg IV bolus then 50mcg/hr Insulin 10 units IV / Dextrose 50% 50ml ECG Rate (beats per minute): 100 Rhythm: normal sinus Findings: no acute ischemic change Comparison ECG Date: from (September 01, 2022) Change: the following changes noted (PVCs no longer present) Code Status & VTE Plan Code Status DNR/DNI VTE Prophylaxis Plan VTE Prophylaxis will be ordered: No PG Care Time/CCT Total # of Minutes Spent Total Time Spent with Patient: Total time spent is greater than 50% in coordination of care (as documented) at patient's floor/unit and/or counseling patient: Coding Level of Care Code 68052 INT INP/OBS CARE 3/75MIN Diagnoses Acute blood loss anemia D62 Hyperkalemia E87.5 Ascites R18.8 Hyperammonemia E72.20 CKD (chronic kidney disease) N18.9 Symptomatic anemia D64.9 GAVE (gastric antral vascular ectasia) K31.819 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 K75.81; K74.60 Hypothyroidism E03.9
[2022-09-23] MEDS ORDERED: ONDANSETRON INJ 2 MG/ML 2 ML VIAL IV STA (15:39)
[2022-09-23 15:41] LABS: Ferritin 86.8 ng/ml (8-388)
[2022-09-23 15:46] LABS: Folate (Folic Acid),Ser orPlas 19.71 ng/ml (>5.38)
[2022-09-23] MEDS ORDERED: MIDODRINE HCL 10 MG TAB PO STA (16:51)
--- NOTE | 2022-09-23 18:09 | CT Scan Report ---
HEAD CT NONCONTRAST CT DOSE: HISTORY: cirrhosis, confusion TECHNIQUE: Multiaxial CT images of the head were performed without the use of intravenous contrast. A utomated exposure control was utilized for this study. A dose lowering technique was utilized adheri ng to the principles of ALARA. Comparison: Head CT 05/23/2022. Findings: The paranasal sinuses and mastoid air cells are clear. The calvarium and skull base are int act. The ventricles and sulci are within normal limits. There is no mass, hematoma, midline shift, or acute infarct. Impression: No acute intracranial abnormality. ACT 112: Negative or not required by law. Electronically signed by: Joaquín Bolden M.D. 09/23/2022 6:06 PM
--- NOTE | 2022-09-23 18:24 | CT Scan Report ---
CT chest diagnostic wo con, CT abd pelvis wo con CT DOSE: 3251.47 mGy.cm HISTORY: Weakness. cirrhosis, anemia, hyperK, ?UTI TECHNIQUE: Multiaxial CT images of the chest , abdomen, and pelvis were performed without contrast. A dose lowering technique was utilized adhering to the principles of ALARA. COMPARISON: Abdomen and pelvis CT 08/13/2022. FINDINGS: Chest CT: The central airways are patent. No pneumothorax. No pleural effusions. Small bibasilar line ar densities favor subsegmental atelectasis are scarring. Otherwise, no focal lung consolidations to suggest a pneumonia. No evidence for pulmonary edema. No acute fractures. No suspicious lytic or brittney tic osseous lesions. Bilateral gynecomastia. Hypodense blood pool consistent with anemia. Mild calcif ied plaque within the normal caliber thoracic aorta. The heart is mildly enlarged. No pericardial eff usion. Normal esophagus. No mediastinal or hilar lymphadenopathy. Moderate coronary artery calcificat ions are noted. Abdomen/pelvis CT: No pneumoperitoneum. No pneumatosis. No acute fractures identified. Mild body wall edema is noted. There is moderate gastric wall thickening. This has progressed in the interval. Ther e is a vascular clip again noted within the proximal stomach. The liver remains atrophic and demonstr ates a nodular contour consistent with cirrhosis. Prior cholecystectomy. The spleen is normal in size . The adrenal glands are unremarkable. Bilateral nephrolithiasis. No ureteral stones. No hydronephros is. Fatty atrophy of the pancreas again noted. No retroperitoneal lymphadenopathy. Normal caliber abd ominal aorta. A left splenorenal shunt and multiple varicosities again noted within the left side the abdomen. This is consistent with underlying portal hypertension. The main portal vein is atrophic an d partially calcified. This suggests chronic thrombus. This remains unchanged. No pelvic lymphadenopa thy. There is a small amount of scattered ascites. This is slightly progressed. The bladder is unrema rkable. Moderate to large amount well-formed stool seen within the colon and rectum. This most pronou nced within the rectum. No dilated loops of small bowel to suggest an obstruction. Moderate circumfer ential thickening within the ascending colon/cecum. This could represent a nonspecific colitis or por eliel colopathy. This has progressed in the interval. IMPRESSION: 1. No acute process within the chest. 2. Cirrhotic liver with stigmata of portal hypertension including splenomegaly, abdominal varicositie s, and a small amount of ascites. The ascites has slightly progressed in the interval. 3. Mild body wall edema has progressed. 4. Moderate gastric wall thickening. This has progressed and is consistent with a nonspecific gastrit is. 5. Moderate circumferential thickening of the ascending colon/cecum. This could represent a colitis v ersus portal colopathy. 6. The main portal vein is atrophic and partially calcified suggesting chronic partial thrombosis. Th is remains unchanged. 7. Bilateral nephrolithiasis. No hydronephrosis. 8. Fecal retention. 9. Additional findings as described above. ACT 112: Negative or not required by law. Electronically signed by: Joaquín Bolden M.D. 09/23/2022 6:22 PM
[2022-09-23] MEDS: cefTRIAXone SODIUM 2,000 MG in DEXTROSE 5% 50 ML IV SCH (22:49)
[2022-09-23] MEDS: LACTULOSE 200GM/700ML WTR ENEMA PR SCH (22:49)
[2022-09-23] MEDS: rifAXIMin 550 MG TABLET PO SCH (22:50)
[2022-09-23] MEDS: MIDODRINE HCL 10 MG TAB PO SCH (22:50)
[2022-09-23] MEDS: PARoxetine HCL 10 MG TAB PO SCH (22:50)
[2022-09-23] MEDS: SUCRALFATE 1 GM/10 ML UDC PO SCH (22:51)
[2022-09-23 22:59] LABS: Hematocrit (blood only) 23.4 % (42.0-52.0); Hemoglobin 7.7 g/dl (14.0-18.0)
[2022-09-23 23:16] LABS: Calcium 10.5 mg/dl (8.6-10.3); Creatinine Clr Calc Pharmacy 32.3 ml/min; Est GFR (African American) 27.5 ml/min; Est GFR (Non-African American) 23.7 ml/min; Potassium 5.8 mmol/L (3.5-5.1)
[2022-09-24] MEDS ORDERED: SODIUM ZIRCONIUM CYCLOSILICATE 10 GM PACKET PO STA
[2022-09-24] MEDS ORDERED: DEXTROSE 50% 50 ML SYRINGE IV STA (00:17)
[2022-09-24] MEDS ORDERED: INSULIN HUMAN REGULAR PER UNIT 10 UNITS in SYRINGE 9.9 ML IV ONE (00:30)
[2022-09-24] MEDS: SUCRALFATE 1 GM/10 ML UDC PO SCH ×5 (00:36→20:33)
[2022-09-24] MEDS: MIDODRINE HCL 10 MG TAB PO SCH ×4 (00:36→17:59)
--- NOTE | 2022-09-24 01:37 | Communication Note ---
Date of Service: September 24, 2022 Evening chemistry labs still with hyperkalemia (5.8) despite earlier insulin/dextrose. Pt unable to tolerate PO meds. Gave an additional dose of insulin/dextrose. Monitor am labs. Resident Activity Tracking Resident Involvement: Resident Care Provided Care Provided: Adult [facility]
[2022-09-24] MEDS: PANTOprazole 40 MG in DEXTROSE 5% 100 ML IV SCH ×5 (02:13→22:48)
[2022-09-24] MEDS: LACTULOSE 200GM/700ML WTR ENEMA PR SCH ×2 (06:03→15:30)
[2022-09-24 08:47] LABS: Basophils # (auto) 0.04 K/uL (0-0.2); Basophils % (auto) 0.5 %; Eosinophils # (auto) 0.25 K/uL (0-0.50); Hematocrit (blood only) 23.7 % (42.0-52.0); Hemoglobin 7.8 g/dl (14.0-18.0); Immature Granulocytes # (auto) 0.05 K/uL (0.01-0.20); Immature Granulocytes % (auto) 0.6 %; Lymphocytes # (auto) 0.72 K/uL (1.2-3.4); Lymphocytes % (auto) 8.5 %; Mean Corpuscular Hemoglobin 34.1 pg (25.0-34.0); Mean Corpuscular Hgb Conc 32.9 g/dL (32.0-36.0); Mean Corpuscular Volume 103.5 fL (80.0-100.0); Mean Platelet Volume 9.5 fL (9.4-12.4); Monocytes # (auto) 1.07 K/uL (0.11-0.59); Monocytes % (auto) 12.7 %; Neutrophils # (auto) 6.31 K/uL (1.40-6.50); Neutrophils % (auto) 74.7 %; Nucleated RBC # (auto) 0.02 K/uL (0-0.12); Nucleated RBC % (auto) 0.2 %; Platelet Count 74 K/uL (130-400); RDW Coefficient of Variation 22.5 % (11.5-14.5); RDW Standard Deviation 81.3 fL (36.4-46.3); Red Blood Count 2.29 M/uL (4.70-6.10); White Blood Count 8.44 K/ul (4.8-10.8)
[2022-09-24] MEDS: OCTREOTIDE ACETATE 500 MCG in DEXTROSE 5% 100 ML IV SCH ×2 (09:02→20:32)
[2022-09-24] MEDS: rifAXIMin 550 MG TABLET PO SCH ×2 (09:03→20:33)
[2022-09-24 09:06] LABS: Albumin Globulin Ratio 0.7 (0.9-2); Albumin Level 2.1 gm/dl (3.4-5.0); BUN Creatinine Ratio 20.7 (10-20); Bilirubin,Total 5.4 mg/dl (0.2-1.0); Calcium 10.6 mg/dl (8.6-10.3); Creatinine Clr Calc Pharmacy 33.7 ml/min; Est GFR (African American) 28.6 ml/min; Est GFR (Non-African American) 24.7 ml/min; Globulin 2.9 gm/dl (2.5-4.0); Potassium 5.6 mmol/L (3.5-5.1)
[2022-09-24 09:13] LABS: INR 1.4 (0.9-1.1); Prothrombin Time 15.1 Seconds (9.0-12.0)
[2022-09-24 09:20] LABS: Echinocytes 1+; Polychromasia 1+
--- NOTE | 2022-09-24 10:14 | Gastrointestinal Consultation ---
Date of Consultation September 24, 2022 Assessment & Plan (1) Anemia: Mmahogany stool likely secondary to PHG which is most appropriately tx w IV octreotide, PPI. He had small varices just 3 wks ago on EGD, thus very unlikely to be a EV bleed. Also, his Hb is only slightly below his baseline and has been stable post 1unit transfusion. (2) Cirrhosis of liver: Plan Will continue to watch carefully. Would continue octreotide PPI, antibiotics for now. May have clear liquids po. No plans for endoscopy at this time - as unlikely to be significantly different findings compared to 3 wks ago. Supervising Physician Co-Signing Physician Notes Patient was seen and examined on 09/24 with BRENDA Garcia whose note reflects our findings and plan. History of Present Illness Reason for Consultation: "acute blood loss anemia" Requesting Physician: Dr. Lares Attending Physician: Maggie Cristina MD History of Present Illness Mr. Sebastian Quiñonez is a 67 yr old male pt of Dr. Castellano w a hx of decompensated SERRANO cirrhosis c/b HE, ascites, EV, PHG, GERD, hypothyroidism, psoriatic arthritis on Humira. He presented to [facility] ED on 09/13 for weakness. Hb on arrival 6.9 + 1 unit of RBCs ->7.8 most recently this morning. He was on antibiotics, Octreotide and Pantoprazole drip. CT w mild gastric wall thickening. He has been hemodynamically stable though was admitted w confusion and is awake but remains confused. He passed one moderate loose/ming mxax BM on health information coder, then this morning a loose brown BM. Most recent EGD with small bowel enteroscopy by Dr. Martinez September 02 with findings of small, nonbleeding esophageal varices, PHG. Most recent Colonoscopy08/2021- at that time 2 polyps removed. Repeat in 3 years. Allergies Allergy/AdvReac Type Severity Reaction Status Date / Time tamsulosin Allergy Intermediate HIVES Verified 09/23/22 16:01 etanercept [From Enbrel] AdvReac Intermediate Increased Verified 09/23/22 16:01 infections Home Medications Medication Instructions Recorded Confirmed Type rifaximin 550 mg tablet (Xifaxan) 550 mg PO BID #60 tabs 01/16/22 09/23/22 Rx darbepoetin coretta in polysorbat 100 100 mcg subcut .COMPLEX PRN 05/23/22 09/23/22 History mcg/0.5 mL in polysorbate NEEDED injection syringe sucralfate 100 mg/mL oral 10 ml PO ACHS #1,000 mL 07/21/22 09/23/22 Rx suspension ondansetron HCl 4 mg tablet 4 mg PO Q8H PRN Nausea And 08/08/22 09/23/22 Rx Vomiting #30 tabs pantoprazole 40 mg tablet,delayed 40 mg PO BID #60 tabs 08/08/22 09/23/22 Rx release lactulose 10 gram/15 mL oral 20 g (30 mL) PO DAILY #946 mL 08/10/22 09/23/22 Rx solution furosemide 20 mg tablet 20 mg PO DAILY PRN edema #14 tabs 09/07/22 09/23/22 Rx midodrine 10 mg tablet 15 mg PO TID #135 tabs 09/14/22 09/23/22 Rx Walker #1 ea 09/21/22 Rx darbepoetin coretta in polysorbat 200 200 mcg subcut WK 09/23/22 09/23/22 History mcg/mL in polysorbate injection paroxetine HCl 10 mg tablet 10 mg PO HS 09/23/22 09/23/22 History Patient History Medical History (Updated 09/24/22 @ 07:04 by Jonny Lares MD) Anemia Ascites Calculus of kidney Cervical disc disease CKD (chronic kidney disease), stage III Depression Esophageal varices determined by endoscopy GAVE (gastric antral vascular ectasia) Per records GERD (gastroesophageal reflux disease) History of GI bleed discharged from [facility] 06/10/22: borderline hemorrhagic shock-upper GI bleed suspected to be d/t GAVE-received 1 unit of PRBC History of herniated intervertebral disc lumbar area History of SCC (squamous cell carcinoma) of skin S/p removal- follows with derm Hx of blood clots 06/2021 @ [facility]- pt reports blood clot in left arm around IV site after being discharged from hospital- no meds due to current blood loss issue- warm compresses to site per pt- 2 ultrasounds done - no current issues Hx of upper gastrointestinal hemorrhage recent hospitalization at [facility] 06/07/2022 Hyperkalemia Hypothyroidism 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 current work-up for planned liver transplant per [facility] transplant clinic records Lumbar disc disease Oral mucositis On mouthwash daily- no recent issues Pancytopenia Portal hypertensive gastropathy Post-traumatic urethral stricture Psoriasis Psoriatic arthritis PVT (portal vein thrombosis) denies Spinal stenosis EPIDURAL INJECTIONS IN PAST FOR PAIN RELIEF TMJ arthralgia Urinary retention Urinary tract infection Wide-complex tachycardia ON CARDVEDILOL-F/U DR VANESSA LAST VISIT<1 YR AGO Surgical History H/O foot surgery excision of neuroma b/l feet History of appendectomy History of arthroscopy RT KNEE History of cataract surgery RT/LEFT History of cholecystectomy History of esophagogastroduodenoscopy (EGD) last 03/21/22 @ [facility] 02/08/22 Dr. Sara Cloud- EGD- Grade I esophageal varices, Portal hypertensive gastropathy History of herniorrhaphy right inguinal History of lithotripsy History of liver biopsy History of repair of rotator cuff RT/LEFT History of tooth extraction History of urologic surgery Urethral reconstruction 4 years ago at [facility] Nausea and vomiting after administration of anesthetic agent S/P colonoscopy S/P epidural steroid injection S/P orchiectomy Right age 9 for UDT S/P urological surgery (2018) BMG urethroplasty-[facility] [place] Suprapubic catheter AND REMOVAL Family History Grandmother (Maternal) Diabetes Father Renal cancer Mother Aortic aneurysm Denies family history of Ovarian cancer Prostate cancer Myocardial infarction Breast cancer Colorectal cancer Social History Smoking Status: Never smoker Second Hand Exposure: No; Do You Dip or Chew Tobacco: No; Hx Alcohol Use: No Hx Substance Use: No Preferred Language: Montserratian Communication Ability: Impaired Visual Impairment: No Limitations Hearing Ability: Hard of Hearing Engine Cleaner Required: No Beliefs That Will Affect Care: None marital status: / Current Living Situation: Family Current Living Situation Comment: Lives with son current occupational status: retired How many Children do You have: 1 Other Information That Helps Us Care for You: No Feels Safe at Home: Yes Safety Concerns: Feels Safe At This Time Diet: low salt Diet Comment: LOW SALT caffeine: Yes during the past year weight has: remained stable Dental Care, Regularly: No Physical Activity Frequency: Other Physical Activity Frequency Comment: does all housework/outside work and cuts wood Seatbelt Use: never Sunscreen Use: No Assistive Devices: Walker Review of Systems Review of Systems: Pt not a reliable historian, unable to obtain ROS. Physical Exam Constitutional: well developed, well nourished, + ill appearing (chronically), + obese and + edematous (mild/lower legs) ENMT: external ear and nose normal, oropharynx normal Neck: trachea midline, no thyromegaly Respiratory: normal respiratory effort, lungs clear to auscultation Cardiovascular: RRR, no murmur, no edema Gastrointestinal (Abdomen): Inspection/Auscultation: + abdomen distended (mild/moderate ascites) and + hypoactive bowel sounds Percussion/Palpation: abdomen soft; abdomen nontender Skin: no rashes, warm and dry Neurologic: Speech / Cognition: + abnormal cognition (is alert, responds to questions but unable to tell me correct answers ) Only able to tell me his name and that he is in hospital. He is unable to tell me his middle name his 's name the month or day of the year. 1+ asterix Lymphatic: no cervical or axillary lymphadenopathy Results & Data Vital Signs (Past 12 Hours) Vital Signs Temp Pulse Pulse Resp BP Pulse Ox O2 Del Method 09/24/22 08:17 36.5 C 112 H 20 109/68 100 Nasal Cannula 09/24/22 04:00 36.6 C 111 H 16 137/97 100 Nasal Cannula 09/23/22 23:48 36.4 C L 114 H 18 97/58 L 100 Nasal Cannula 09/23/22 23:00 106 H O2 Flow Rate 09/24/22 08:17 1 09/24/22 04:00 2 09/23/22 23:48 2 09/23/22 23:00 Laboratory Results WBC 2.29, Hb 7.8, HCT 23, PLT S74, PT 15, INR 1.4, NA 133, K5.6, CL 105, CO2 25, BUN 53, CR 2.56, glucose 201 T. bili 5.4, AST 32, ALT 22, alk phos 106 Diagnostic Findings non contrast CT chest/abd/pelvis 09/23/22: 1. No acute process within the chest. 2. Cirrhotic liver with stigmata of portal hypertension including splenomegaly, abdominal varicosities, and a small amount of ascites. The ascites has slightly progressed in the interval. 3. Mild body wall edema has progressed. 4. Moderate gastric wall thickening. This has progressed and is consistent with a nonspecific gastritis. 5. Moderate circumferential thickening of the ascending colon/cecum. This could represent a colitis versus portal colopathy. 6. The main portal vein is atrophic and partially calcified suggesting chronic partial thrombosis. This remains unchanged. 7. Bilateral nephrolithiasis. No hydronephrosis. 8. Fecal retention. 9. Additional findings as described above. (2) Cirrhosis of liver Ascites presence: unspecified Hepatic cirrhosis type: alcoholic cirrhosis Qualified Code(s): K70.30 - Alcoholic cirrhosis of liver without ascites
--- NOTE | 2022-09-24 15:39 | Hospitalist Progress Note ---
Date of Service September 24, 2022 Assessment & Plan (1) Acute blood loss anemia: Plan: Concerning history of GAVE and esophageal varices Admitted with marroned color stool and Hb of 6.9 s/p transfusion of 1 unit of blood Evaluated by GI, no need for repeat endoscopy Most recent was push enteroscopy on 09/02 continue octeotride and pantoprazole (2) Hyperkalemia: Plan: Pt reports supplementation started recently. Will discontinue. Dextrose 50% 50ml and insulin 10 units Repeat labs around 10pm (3) Ascites: Plan: From Liver cirrhosis Discussions regarding placement in transplant list (4) Hyperammonemia: Plan: No significant hepatic encephalopathy -now on PO lactulose (5) CKD (chronic kidney disease): Plan: At baseline, continue to monitor (6) Symptomatic anemia: Plan: s/p transfusion of 1 unit of blood (7) GAVE (gastric antral vascular ectasia): (8) 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: (9) Hypothyroidism: Plan hopefully d/c tomorrow Admission and Anticipated Discharge Date Admission Date: September 23, 2022 Subjective patient seen and examined, complained of epigastric pain Review of Systems Review of Systems: All systems reviewed are negative, apart from the ones contained in the history. Physical Exam Physical Exam: The patient is awake, alert and oriented 3, well developed and well nourished, normocephalic and atraumatic, lying in bed and in no acute distress. HEENT--PERRL, EOMI, mucous membranes and oropharynx mildly dry Neck--supple. No JVD. No bruits. Thyroid normal, trachea midline, no adenopathy. Heart--normal S1 and S2. No murmurs, rubs or gallops. Lungs--clear bilaterally, no respiratory distress, no accessory muscle use. Abdomen--epigatsric tenderness Extremities--no cyanosis or clubbing. No edema. Dermatologic--normal skin turgor, normal color, no abnormal lymph nodes, no rash. Neurologic--cranial nerves II through XII grossly intact. Rheumatologic--normal range of motion. Psychiatric--normal affect. Results & Data Results & Data Vital Signs (Past 12 Hours) Vital Signs Temp Pulse Pulse Resp BP Pulse Ox O2 Del Method 09/24/22 15:09 97.9 F 100 H 20 117/73 99 Room Air 09/24/22 14:49 105 H 07/31/23 11:24 97.9 F 110 H 15 104/68 100 Room Air 09/24/22 08:00 104 H 09/24/22 08:17 97.7 F 112 H 20 109/68 100 Nasal Cannula 09/24/22 04:00 98 F 111 H 16 137/97 100 Nasal Cannula O2 Flow Rate 09/24/22 15:09 09/24/22 14:49 09/24/22 11:24 09/24/22 08:00 09/24/22 08:17 1 09/24/22 04:00 2 PG Care Time/CCT Total # of Minutes Spent Total Time Spent with Patient: Total time spent is greater than 50% in coordination of care (as documented) at patient's floor/unit and/or counseling patient: Coding Level of Care Code 16248 SUB INP/OBS CARE 2/35MIN Diagnoses Acute blood loss anemia D62 Hyperkalemia E87.5 Ascites R18.8 Hyperammonemia E72.20 CKD (chronic kidney disease) N18.9 Symptomatic anemia D64.9 GAVE (gastric antral vascular ectasia) K31.819 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 K75.81; K74.60 Hypothyroidism E03.9 Time Spent (min) 35
[2022-09-24] MEDS: LACTULOSE SYRUP 20 GM/30 ML UDC PO SCH (17:12)
[2022-09-24] MEDS: PARoxetine HCL 10 MG TAB PO SCH (20:33)
[2022-09-24] MEDS: cefTRIAXone SODIUM 2,000 MG in DEXTROSE 5% 50 ML IV SCH (22:48)
[2022-09-25] MEDS: PANTOprazole 40 MG in DEXTROSE 5% 100 ML IV SCH ×4 (03:18→19:52)
[2022-09-25] MEDS: OCTREOTIDE ACETATE 500 MCG in DEXTROSE 5% 100 ML IV SCH ×2 (06:13→17:13)
[2022-09-25 07:14] LABS: Hematocrit (blood only) 23.7 % (42.0-52.0); Hemoglobin 7.4 g/dl (14.0-18.0); Mean Corpuscular Hemoglobin 34.3 pg (25.0-34.0); Mean Corpuscular Hgb Conc 31.2 g/dL (32.0-36.0); Mean Corpuscular Volume 109.7 fL (80.0-100.0); Mean Platelet Volume 9.5 fL (9.4-12.4); Platelet Count 80 K/uL (130-400); RDW Coefficient of Variation 23.4 % (11.5-14.5); RDW Standard Deviation 90.3 fL (36.4-46.3); Red Blood Count 2.16 M/uL (4.70-6.10); White Blood Count 6.79 K/ul (4.8-10.8)
[2022-09-25 07:29] LABS: Albumin Globulin Ratio 0.7 (0.9-2); BUN Creatinine Ratio 19.2 (10-20); Bilirubin,Total 4.8 mg/dl (0.2-1.0); Calcium 10.1 mg/dl (8.6-10.3); Creatinine Clr Calc Pharmacy 32.6 ml/min; Est GFR (African American) 27.5 ml/min; Est GFR (Non-African American) 23.7 ml/min; Globulin 2.9 gm/dl (2.5-4.0); Potassium 4.7 mmol/L (3.5-5.1); Total Protein 4.9 gm/dl (6.0-8.3)
[2022-09-25] MEDS: rifAXIMin 550 MG TABLET PO SCH ×2 (09:24→21:19)
[2022-09-25] MEDS: LACTULOSE SYRUP 20 GM/30 ML UDC PO SCH ×3 (09:24→17:13)
[2022-09-25] MEDS: SUCRALFATE 1 GM/10 ML UDC PO SCH ×4 (09:24→21:19)
[2022-09-25] MEDS: MIDODRINE HCL 10 MG TAB PO SCH ×3 (09:25→17:13)
[2022-09-25 09:43] LABS: Appearance Urine Cloudy (Clear); Bacteria Urine Automated 1+ (Negative); Bilirubin Urine Negative (Negative); Blood Urine Trace (Negative); Cast Urine Automated 0 /lpf (0-5); Color Urine Orange; Epithelial Cell Urine Auto >30 /lpf (0-5); Glucose Urine UA Negative (Negative); Ketones Urine Negative (Negative); Leukocyte Esterase Urine 3+ (Negative); Nitrite Urine Negative (Negative); Protein Urine Negative (Negative); RBC Urine Automated 0-4 /hpf (0-4); Specific Gravity Urine 1.015 (1.000-1.030); Urobilinogen Urine Negative (Negative); WBC Urine Automated >30 /hpf (0-5); pH Urine 6.5 (4.5-7.5)
--- NOTE | 2022-09-25 09:58 | Gastroenterology Progress Note ---
Date of Service September 25, 2022 Assessment & Plan (1) Anemia: Plan: Lexy stool likely secondary to PHG which is most appropriately tx w IV octreotide, PPI. He had small varices just 3 wks ago on EGD, thus very unlikely to be a EV bleed. Also, his Hb is only slightly below his baseline and has been stable post 1unit transfusion. (2) Cirrhosis of liver: Plan Would continue octreotide PPI, antibiotics for now - may discontinue tomorrow morning. Will advance diet. No plans for endoscopy at this time - as unlikely to be significantly different findings compared to 3 wks ago. Admission and Anticipated Discharge Date Admission Date: September 23, 2022 Supervising Physician Co-Signing Physician Notes Patient was seen and examined on 09/25 with BRENDA Garcia whose note reflects our findings and plan. Subjective Awake, more alert and more appropriate responses to questions, able to tell me that h'es at [facility] and that its 2022 but otherwise not able to come up with specific responses to orientation questions. Comfortable today. Passing brown loose BMs. Hb 6.9 + one unit of RBCs -> 7.8 and 7.4 today. Review of Systems Constitutional: + chills and + weakness (improving); no fever and no body aches Eyes: no problem reported Ear, Nose, Mouth, Throat: no pain with swallowing and no problem reported drinking liquid diet well Respiratory: no cough, no chest congestion and no wheezing Cardiovascular: no chest pain and no dyspnea Gastrointestinal: no abdominal pain, no nausea, no vomiting and no melena Musculoskeletal: no swelling and no problem reported Integumentary: no rash and no lesions Neurologic: + generalized weakness Psychiatric: no depression, no hopelessness and no hallucinations Endocrine: + fatigue Hematologic / Lymphatic: no easy bleeding and no easy bruising Allergy / Immunological: no cough, no dyspnea and no rash Physical Exam Constitutional: well developed, well nourished, + ill appearing (chronically), + obese and + edematous (mild/lower legs) ENMT: external ear and nose normal, oropharynx normal Neck: trachea midline, no thyromegaly Respiratory: normal respiratory effort, lungs clear to auscultation Cardiovascular: RRR, no murmur, no edema Gastrointestinal (Abdomen): Inspection/Auscultation: + abdomen distended (mild/moderate ascites) and + hypoactive bowel sounds Percussion/Palpation: abdomen soft; abdomen nontender Skin: no rashes, warm and dry + mild jaundice Neurologic: PERRL, EOMI, accommodation nl, no face palsy, no dysarthria no asterixes Psychiatric: Orientation: alert, oriented to person and oriented to place Eye Contact: good eye contact Lymphatic: no cervical or axillary lymphadenopathy Results & Data Vital Signs (Past 12 Hours) Vital Signs Temp Pulse Pulse Resp BP Pulse Ox O2 Del Method 09/25/22 07:48 36.9 C 93 H 18 127/78 97 Nasal Cannula 09/25/22 07:42 101 H 09/25/22 07:42 Nasal Cannula 09/25/22 02:59 36.8 C 95 H 20 122/75 100 Room Air 09/25/22 00:00 Nasal Cannula 09/24/22 23:00 113 H 09/24/22 22:52 36.6 C 100 H 18 151/83 H 99 Room Air O2 Flow Rate 09/25/22 07:48 2 09/25/22 07:42 09/25/22 07:42 09/25/22 02:59 09/25/22 00:00 2 09/24/22 23:00 09/24/22 22:52 Laboratory Results WBC 6.7, Hb 7.4, Hct 23, Plts 80, Na 131, K 4.7, Cl 104, CO2 222, BUN 51, Cr 2.65, glucose 119 T Bili 4.8, AST 35, ALT 21, Alk [id number] Diagnostic Findings non contrast CTAP 09/23/22; 1. No acute process within the chest. 2. Cirrhotic liver with stigmata of portal hypertension including splenomegaly, abdominal varicosities, and a small amount of ascites. The ascites has slightly progressed in the interval. 3. Mild body wall edema has progressed. 4. Moderate gastric wall thickening. This has progressed and is consistent with a nonspecific gastritis. 5. Moderate circumferential thickening of the ascending colon/cecum. This could represent a colitis versus portal colopathy. 6. The main portal vein is atrophic and partially calcified suggesting chronic partial thrombosis. This remains unchanged. 7. Bilateral nephrolithiasis. No hydronephrosis. 8. Fecal retention. 9. Additional findings as described above. (2) Cirrhosis of liver Ascites presence: unspecified Hepatic cirrhosis type: alcoholic cirrhosis Qualified Code(s): K70.30 - Alcoholic cirrhosis of liver without ascites
[2022-09-25] MEDS ORDERED: MELATONIN 3 MG TAB PO PRN (11:07)
--- NOTE | 2022-09-25 14:17 | Hospitalist Progress Note ---
Date of Service September 25, 2022 Assessment & Plan (1) Acute blood loss anemia: Plan: Concerning history of GAVE and esophageal varices Admitted with marroned color stool and Hb of 6.9 s/p transfusion of 1 unit of blood, hemoglobin currently 7.4 Evaluated by GI, no need for repeat endoscopy Most recent was push enteroscopy on 09/02 continue octeotride and pantoprazole till tomorrow 09/26/2022 (2) Hyperkalemia: Plan: Resolved (3) Ascites: Plan: From Liver cirrhosis Discussions regarding placement in transplant list (4) Hyperammonemia: Plan: No significant hepatic encephalopathy -now on PO lactulose (5) CKD (chronic kidney disease): Plan: At baseline, continue to monitor (6) Symptomatic anemia: Plan: s/p transfusion of 1 unit of blood (7) GAVE (gastric antral vascular ectasia): (8) 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: (9) Hypothyroidism: Plan hopefully d/c tomorrow Admission and Anticipated Discharge Date Admission Date: September 23, 2022 Subjective Patient seen and examined, feels overall better, still complains of mild epigastric pain Review of Systems Review of Systems: All systems reviewed are negative, apart from the ones contained in the history. Physical Exam Physical Exam: The patient is awake, alert and oriented 3, well developed and well nourished, normocephalic and atraumatic, lying in bed and in no acute distress. HEENT--PERRL, EOMI, mucous membranes and oropharynx mildly dry Neck--supple. No JVD. No bruits. Thyroid normal, trachea midline, no adenopathy. Heart--normal S1 and S2. No murmurs, rubs or gallops. Lungs--clear bilaterally, no respiratory distress, no accessory muscle use. Abdomen--epigatsric tenderness Extremities--no cyanosis or clubbing. No edema. Dermatologic--normal skin turgor, normal color, no abnormal lymph nodes, no rash. Neurologic--cranial nerves II through XII grossly intact. Rheumatologic--normal range of motion. Psychiatric--normal affect. Results & Data Results & Data Vital Signs (Past 12 Hours) Vital Signs Temp Pulse Pulse Resp BP Pulse Ox O2 Del Method 09/25/22 11:30 97.9 F 99 H 18 121/71 100 Room Air 09/25/22 07:48 98.4 F 93 H 18 127/78 97 Nasal Cannula 09/25/22 07:42 101 H 09/25/22 07:42 Nasal Cannula 09/25/22 02:59 98.2 F 95 H 20 122/75 100 Room Air O2 Flow Rate 09/25/22 11:30 09/25/22 07:48 2 09/25/22 07:42 09/25/22 07:42 09/25/22 02:59 PG Care Time/CCT Total # of Minutes Spent Total Time Spent with Patient: Total time spent is greater than 50% in coordination of care (as documented) at patient's floor/unit and/or counseling patient: Coding Level of Care Code 71800 SUB INP/OBS CARE 2/35MIN Diagnoses Acute blood loss anemia D62 Hyperkalemia E87.5 Ascites R18.8 Hyperammonemia E72.20 CKD (chronic kidney disease) N18.9 Symptomatic anemia D64.9 GAVE (gastric antral vascular ectasia) K31.819 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 K75.81; K74.60 Hypothyroidism E03.9 Time Spent (min) 35
[2022-09-25] MEDS: cefTRIAXone SODIUM 2,000 MG in DEXTROSE 5% 50 ML IV SCH (21:19)
[2022-09-25] MEDS: PARoxetine HCL 10 MG TAB PO SCH (21:19)
--- NOTE | 2022-09-25 22:38 | Electrocardiogram Report ---
Test Reason : Blood Pressure : / mmHG Vent. Rate : 100 BPM Atrial Rate : 100 BPM P-R Int : 178 ms QRS Dur : 084 ms QT Int : 350 ms P-R-T Axes : 063 -16 031 degrees QTc Int : 451 ms Normal sinus rhythm Low voltage QRS Cannot rule out Anterior infarct , age undetermined Abnormal ECG When compared with ECG of 01-SEP-2022 01:52, Premature supraventricular complexes are no longer Present Confirmed by Pepe Clarke ([id number]) on 09/25/2022 10:37:53 PM Referred By: Confirmed By:Pepe Clarke
[2022-09-26] MEDS: LACTULOSE SYRUP 20 GM/30 ML UDC PO SCH ×5 (00:19→23:46)
[2022-09-26] MEDS: PANTOprazole 40 MG in DEXTROSE 5% 100 ML IV SCH ×5 (00:51→19:49)
[2022-09-26] MEDS: OCTREOTIDE ACETATE 500 MCG in DEXTROSE 5% 100 ML IV SCH ×2 (03:01→12:42)
[2022-09-26] MEDS: ONDANSETRON 4 MG OD TAB PO PRN (06:35)
[2022-09-26] MEDS: MIDODRINE HCL 10 MG TAB PO SCH ×3 (08:23→17:00)
[2022-09-26] MEDS: rifAXIMin 550 MG TABLET PO SCH ×2 (08:23→20:52)
[2022-09-26] MEDS: SUCRALFATE 1 GM/10 ML UDC PO SCH ×4 (08:24→20:51)
--- NOTE | 2022-09-26 10:33 | Gastroenterology Progress Note ---
Date of Service September 26, 2022 Assessment & Plan (1) Anemia: Plan: Likely a PHG bleed that has stopped w octreotide and protonix. (2) Cirrhosis of liver: Plan Unsure of the etiology of his epigastric pain at this time. He underwent EGD just 3 weeks ago so hesitate to repeat that, especially now that he is mentally clear. Undergoing sedation might worsen/cause recurrence of hepatic encephalopathy. Would DC octreotide and change PPI drip to BID po. Continue Sucralfate achs. Would advance diet, help pt w sitting up in chair increase activity if possible. Admission and Anticipated Discharge Date Admission Date: September 23, 2022 Supervising Physician Co-Signing Physician Notes Patient was seen and examined on 09/26 with BRENDA Garcia whose note reflects our findings and plan. Subjective Pt is mentating well today. Able to tell me the month, year, that he is at [facility]. No gross GI bleeding since early Saturday. Taking clear liquids po w/o c/o N/V. However, today, he c/o epigastric pain and is tender in that area. Review of Systems Constitutional: + weakness (improving); no chills Eyes: no problem reported Ear, Nose, Mouth, Throat: no pain with swallowing and no problem reported drinking liquid diet well Respiratory: no cough, no chest congestion and no wheezing Cardiovascular: no chest pain and no dyspnea Gastrointestinal: + abdominal pain (c/o epigastric pain); no nausea, no vomiting and no melena Musculoskeletal: no swelling and no problem reported Neurologic: + generalized weakness Psychiatric: no depression, no hopelessness and no hallucinations Endocrine: + fatigue Hematologic / Lymphatic: no easy bleeding and no easy bruising Allergy / Immunological: + cough (mild); no dyspnea and no rash Physical Exam Constitutional: well developed, well nourished, + ill appearing (chronically), + obese and + edematous (mild/lower legs) ENMT: external ear and nose normal, oropharynx normal Neck: trachea midline, no thyromegaly Respiratory: normal respiratory effort, lungs clear to auscultation Cardiovascular: Rate/Rhythm: regular rate Heart Sounds: no murmur + 1/2 bilat pedal edema, mild bilat hand edema Gastrointestinal (Abdomen): Inspection/Auscultation: + abdomen distended (mild/moderate ascites) and + hypoactive bowel sounds Percussion/Palpation: abdomen soft; abdomen nontender Skin: pale, very mild jaundice, dressing on a few small areas but no large skin lesions or rashes. +chest spider angiomas Neurologic: PERRL, EOMI, accommodation nl, no face palsy, no dysarthria Speech / Cognition: + abnormal cognition (is alert, responds to questions but unable to tell me correct answers ) Psychiatric: Orientation: alert, oriented to person and oriented to place Eye Contact: good eye contact Lymphatic: no cervical or axillary lymphadenopathy Results & Data Vital Signs (Past 12 Hours) Vital Signs Temp Pulse Pulse Resp BP Pulse Ox O2 Del Method 09/26/22 08:06 37.2 C 111 H 18 104/64 98 Room Air 09/26/22 02:46 36.7 C 119 H 20 114/75 97 Room Air 09/25/22 23:09 36.8 C 118 H 20 142/85 H 95 Room Air 09/25/22 23:00 102 H Laboratory Results yesterday: WBC 6.7, Hb 7.4, HCT 23.7, PLT 80, NA 131, K4.7, CL 104, CO2 26, BUN 51, CR 2.65, glucose. T Bili 4 Diagnostic Findings Non contrast CT on 09/23: 1. No acute process within the chest. 2. Cirrhotic liver with stigmata of portal hypertension including splenomegaly, abdominal varicosities, and a small amount of ascites. The ascites has slightly progressed in the interval. 3. Mild body wall edema has progressed. 4. Moderate gastric wall thickening. This has progressed and is consistent with a nonspecific gastritis. 5. Moderate circumferential thickening of the ascending colon/cecum. This could represent a colitis versus portal colopathy. 6. The main portal vein is atrophic and partially calcified suggesting chronic partial thrombosis. This remains unchanged. 7. Bilateral nephrolithiasis. No hydronephrosis. 8. Fecal retention. 9. Additional findings as described above. (2) Cirrhosis of liver Ascites presence: unspecified Hepatic cirrhosis type: alcoholic cirrhosis Qualified Code(s): K70.30 - Alcoholic cirrhosis of liver without ascites
--- NOTE | 2022-09-26 13:12 | CT Scan Report ---
ABDOMEN AND PELVIS CT WITHOUT CONTRAST CT DOSE: 1514.36 mGy.cm HISTORY: Acute generalized abdominal pain. Abd pain. TECHNIQUE: Multiaxial CT images of the abdomen and pelvis were performed without contrast. A dose lo wering technique was utilized adhering to the principles of ALARA. COMPARISON STUDY: 09/23/2022. FINDINGS: Cardiomegaly with decreased attenuation of the cardiac blood pool suggestive of anemia. Cor onary artery calcifications. Trace pleural effusions. Gynecomastia. No pneumatosis or pneumoperitoneu m. Mild splenomegaly with abdominal varicosities. Cirrhosis with [id number] abdominal pelvic a scites, which is similar to mildly progressed. Cholecystectomy. Unremarkable, moderately atrophic serna creas and adrenal glands. Partially calcified atrophic portal vein is again noted. Cortical thinning of the kidneys. There are a few scattered nonobstructing calculi again noted within the bilateral kidneys measuring up to 5 mm on the left and 4 mm on the right. Probable cyst of the s uperior pole of the right kidney, 10 mm. No ureteral calculi or hydronephrosis. Prostatomegaly. Urina ry bladder wall thickening with partial distention. No abdominal aortic aneurysm. Unchanged gastric-wall thickening. No bowel obstruction. Decreased fecal retention. Nonspecific wall thickening of the ascending colon and hepatic flexure is again noted. Appendectomy. Unremarkable soft tissues. Body wall edema. No acute fracture. IMPRESSION: 1. No bowel obstruction or pneumoperitoneum. 2. Decreased fecal retention compared to the study from 09/23/2022 with otherwise generally stable fin dings. 3. Cirrhosis with stigmata of portal venous hypertension including splenomegaly with ascites, and abd ominal pelvic varicosities. 4. Bilateral nephrolithiasis. 5. Gastric wall thickening is again noted suggestive of a nonspecific gastritis. 6. Wall thickening of the ascending colon and hepatic flexure again noted which may represent a nonsp ecific colitis versus portal colopathy. 7. 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 8. Additional findings as above. ACT 112: Negative or not required by law. The above report was generated using voice recognition software. It may contain grammatical, syntax o r spelling errors. Dictated: 09/26/2022 12:15 PM Transcribed: 09/26/2022 12:37 PM Evans [id number] [email or web address] Electronically signed by: Alan Esipno M.D. 09/26/2022 1:11 PM
--- NOTE | 2022-09-26 15:12 | Hospitalist Progress Note ---
Date of Service September 26, 2022 Assessment & Plan (1) Acute blood loss anemia: Plan: Concerning history of GAVE and esophageal varices Admitted with marroned color stool and Hb of 6.9 s/p transfusion of 1 unit of blood, hemoglobin 7.4 yesterday, today's labs pending Evaluated by GI, no need for repeat endoscopy Most recent was push enteroscopy on 09/02 continue octeotride and pantoprazole Also continue IV ceftriaxone per GI. (2) Hyperkalemia: Plan: Resolved (3) Ascites: Plan: From Liver cirrhosis Discussions regarding placement in transplant list (4) Epigastric pain: Plan: CT abdomen and pelvis did not show any evidence of bowel obstruction or pneumoperitoneum but shows findings consistent with venous hypertension splenomegaly and ascites. (5) UTI (urinary tract infection): Plan: Urinalysis suggestive of UTI Urine cultures negative for now Continue empiric IV ceftriaxone. (6) Hyperammonemia: Plan: No significant hepatic encephalopathy -now on PO lactulose Repeat ammonia 38 today (7) CKD (chronic kidney disease): Plan: At baseline, continue to monitor (8) Symptomatic anemia: Plan: s/p transfusion of 1 unit of blood (9) GAVE (gastric antral vascular ectasia): (10) 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: (11) Hypothyroidism: Plan hopefully d/c tomorrow Admission and Anticipated Discharge Date Admission Date: September 23, 2022 Subjective Patient seen and examined, still complains of mild abdominal pain mostly epigastric and right upper quadrants, tolerating diet Review of Systems Review of Systems: All systems reviewed are negative, apart from the ones contained in the history. Physical Exam Physical Exam: The patient is awake, alert and oriented 3, well developed and well nourished, normocephalic and atraumatic, lying in bed and in no acute distress. HEENT--PERRL, EOMI, mucous membranes and oropharynx mildly dry Neck--supple. No JVD. No bruits. Thyroid normal, trachea midline, no adenopathy. Heart--normal S1 and S2. No murmurs, rubs or gallops. Lungs--clear bilaterally, no respiratory distress, no accessory muscle use. Abdomen--epigatsric tenderness Extremities--no cyanosis or clubbing. No edema. Dermatologic--normal skin turgor, normal color, no abnormal lymph nodes, no rash. Neurologic--cranial nerves II through XII grossly intact. Rheumatologic--normal range of motion. Psychiatric--normal affect. Results & Data Results & Data Vital Signs (Past 12 Hours) Vital Signs Temp Pulse Resp BP Pulse Ox O2 Del Method 09/26/22 11:00 96 H 09/26/22 08:06 99.0 F 111 H 18 104/64 98 Room Air PG Care Time/CCT Total # of Minutes Spent Total Time Spent with Patient: Total time spent is greater than 50% in coordination of care (as documented) at patient's floor/unit and/or counseling patient: Coding Level of Care Code 75290 SUB INP/OBS CARE 2/35MIN Diagnoses Acute blood loss anemia D62 Hyperkalemia E87.5 Ascites R18.8 Epigastric pain R10.13 UTI (urinary tract infection) N39.0 Hyperammonemia E72.20 CKD (chronic kidney disease) N18.9 Symptomatic anemia D64.9 GAVE (gastric antral vascular ectasia) K31.819 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 K75.81; K74.60 Hypothyroidism E03.9 Time Spent (min) 35
[2022-09-26] MEDS: PARoxetine HCL 10 MG TAB PO SCH (20:51)
[2022-09-26] MEDS: PANTOprazole 40 MG TAB PO SCH (20:52)
[2022-09-26] MEDS: cefTRIAXone SODIUM 2,000 MG in DEXTROSE 5% 50 ML IV SCH (22:16)
[2022-09-27] MEDS: LACTULOSE SYRUP 20 GM/30 ML UDC PO SCH ×4 (06:30→23:45)
[2022-09-27] MEDS: SUCRALFATE 1 GM/10 ML UDC PO SCH ×4 (06:30→20:06)
[2022-09-27] MEDS: ONDANSETRON 4 MG OD TAB PO PRN (06:32)
[2022-09-27 06:54] LABS: Hematocrit (blood only) 23.4 % (42.0-52.0); Hemoglobin 7.8 g/dl (14.0-18.0); Mean Corpuscular Hemoglobin 34.8 pg (25.0-34.0); Mean Corpuscular Hgb Conc 33.3 g/dL (32.0-36.0); Mean Corpuscular Volume 104.5 fL (80.0-100.0); Mean Platelet Volume 9.4 fL (9.4-12.4); Platelet Count 66 K/uL (130-400); RDW Coefficient of Variation 22.1 % (11.5-14.5); RDW Standard Deviation 79.7 fL (36.4-46.3); Red Blood Count 2.24 M/uL (4.70-6.10); White Blood Count 6.08 K/ul (4.8-10.8)
[2022-09-27 07:07] LABS: BUN Creatinine Ratio 15.8 (10-20); Calcium 9.5 mg/dl (8.6-10.3); Creatinine Clr Calc Pharmacy 34.7 ml/min; Est GFR (African American) 29.9 ml/min; Est GFR (Non-African American) 25.8 ml/min; Potassium 4.5 mmol/L (3.5-5.1)
[2022-09-27] MEDS: rifAXIMin 550 MG TABLET PO SCH ×2 (08:40→20:06)
[2022-09-27] MEDS: MIDODRINE HCL 10 MG TAB PO SCH ×3 (08:40→16:32)
[2022-09-27] MEDS: PANTOprazole 40 MG TAB PO SCH ×2 (08:40→20:06)
--- NOTE | 2022-09-27 09:55 | Gastroenterology Progress Note ---
Date of Service September 27, 2022 Assessment & Plan (1) Anemia: Plan: Likely a PHG bleed that has stopped w octreotide and protonix. (2) Cirrhosis of liver: Plan: Hepatic encephalopathy has cleared. Plan Continue low salt, regular consistency diet. Continue Pantoprazole 40mg BID, lactulose Q6 (though may hold if >3 loose BMs/day), rifaximin, midodrine,sucralfate. Continue OP hepatology f/u w Dr. Espitia. GI will sign off. Admission and Anticipated Discharge Date Admission Date: September 23, 2022 Supervising Physician Co-Signing Physician Notes Patient was seen and examined on 09/27 with BRENDA Garcia whose note reflects our findings and plan. Subjective Alert and mentating clearly today. Able to tell me where he is, the date, why emily vaughn is here. Tells me that his abdominal pain is "much better today." Was able to sit up in a chair for a while. Is on lactulose 4 times daily, passing 2-3 loose bowel movements per day. Hemoglobin is stable posttransfusion. No gross bleeding. Eating a low salt, regular consistency diet. Review of Systems Review of Systems: Pt not a reliable historian, unable to obtain ROS. Constitutional: + weakness (improving); no chills Eyes: no problem reported Ear, Nose, Mouth, Throat: no pain with swallowing and no problem reported drinking liquid diet well Respiratory: no cough, no chest congestion and no wheezing Cardiovascular: no chest pain and no dyspnea Gastrointestinal: + abdominal pain (c/o epigastric pain); no nausea, no vomiting and no melena Musculoskeletal: no swelling and no problem reported Integumentary: no rash and no lesions Neurologic: + generalized weakness Psychiatric: no depression, no hopelessness and no hallucinations Endocrine: + fatigue Hematologic / Lymphatic: no easy bleeding and no easy bruising Allergy / Immunological: + cough (mild); no dyspnea and no rash Physical Exam Constitutional: well developed, well nourished, + ill appearing (chronically), + obese and + edematous (mild/lower legs) ENMT: external ear and nose normal, oropharynx normal Neck: trachea midline, no thyromegaly Respiratory: normal respiratory effort, lungs clear to auscultation Cardiovascular: RRR, no murmur, no edema Rate/Rhythm: regular rate Heart Sounds: no murmur Gastrointestinal (Abdomen): Inspection/Auscultation: + abdomen distended (mild/moderate ascites) and normal bowel sounds Percussion/Palpation: + abdomen tender (very mild epigastric tenderness) and abdomen soft Skin: no rashes, warm and dry Neurologic: PERRL, EOMI, accommodation nl, no face palsy, no dysarthria Speech / Cognition: + abnormal cognition (is alert, responds to questions but unable to tell me correct answers ) Psychiatric: Orientation: alert, oriented to person and oriented to place Eye Contact: good eye contact Lymphatic: no cervical or axillary lymphadenopathy Results & Data Vital Signs (Past 12 Hours) Vital Signs Temp Pulse Pulse Resp BP Pulse Ox O2 Del Method 09/27/22 09:19 36.8 C 123 H 19 92/61 L 99 Room Air 09/27/22 08:00 78 09/27/22 03:22 36.6 C 100 H 22 122/79 98 Room Air 09/26/22 23:00 93 H 09/26/22 23:37 36.7 C 99 H 16 127/80 94 Room Air Laboratory Results WBC 6, Hb 7.8, HCT 23, PLT 66, NA 131, K4.5, CL 104, CO2 23, BUN 39, CR 2.49, glucose 138 Diagnostic Findings Non contrast CTAP 09/26: 1. No bowel obstruction or pneumoperitoneum. 2. Decreased fecal retention compared to the study from 09/23/2022 with otherwise generally stable findings. 3. Cirrhosis with stigmata of portal venous hypertension including splenomegaly with ascites, and abdominal pelvic varicosities. 4. Bilateral nephrolithiasis. 5. Gastric wall thickening is again noted suggestive of a nonspecific gastritis. 6. Wall thickening of the ascending colon and hepatic flexure again noted which may represent a nonspecific colitis versus portal colopathy. 7. 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 8. Additional findings as above. (2) Cirrhosis of liver Ascites presence: unspecified Hepatic cirrhosis type: alcoholic cirrhosis Qualified Code(s): K70.30 - Alcoholic cirrhosis of liver without ascites
--- NOTE | 2022-09-27 13:39 | Hospitalist Progress Note ---
Date of Service September 27, 2022 Assessment & Plan (1) Acute blood loss anemia: Plan: Concerning history of GAVE and esophageal varices Admitted with marroned color stool and Hb of 6.9 s/p transfusion of 1 unit of blood, hemoglobin stable posttransfusion. No new GI bleeds. Evaluated by GI, no need for repeat endoscopy Most recent was push enteroscopy on 09/02 Now on p.o. pantoprazole twice daily 40 mg Also continue IV ceftriaxone per GI. (2) Hyperkalemia: Plan: Resolved (3) Ascites: Plan: From Liver cirrhosis Discussions regarding placement in transplant list (4) Epigastric pain: Plan: CT abdomen and pelvis did not show any evidence of bowel obstruction or p neumoperitoneum but shows findings consistent with venous hypertension splenomegaly and ascites. (5) UTI (urinary tract infection): Plan: Urinalysis suggestive of UTI Urine cultures negative for now Continue empiric IV ceftriaxone. Transition to oral upon discharge (6) Hyperammonemia: Plan: No significant hepatic encephalopathy -now on PO lactulose Repeat ammonia 38 today (7) CKD (chronic kidney disease): Plan: At baseline, continue to monitor (8) Symptomatic anemia: Plan: s/p transfusion of 1 unit of blood (9) GAVE (gastric antral vascular ectasia): (10) 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: (11) Hypothyroidism: Plan After PT evaluation, they recommend rehab, discharge to rehab when accepted. Admission and Anticipated Discharge Date Admission Date: September 23, 2022 Subjective Patient seen and examined today, feels overall better, states abdominal pain is much better, tolerating diet, having bowel movements. Review of Systems Review of Systems: All systems reviewed are negative, apart from the ones contained in the history. Physical Exam Physical Exam: The patient is awake, alert and oriented 3, well developed and well nourished, normocephalic and atraumatic, lying in bed and in no acute distress. HEENT--PERRL, EOMI, mucous membranes and oropharynx mildly dry Neck--supple. No JVD. No bruits. Thyroid normal, trachea midline, no adenopathy. Heart--normal S1 and S2. No murmurs, rubs or gallops. Lungs--clear bilaterally, no respiratory distress, no accessory muscle use. Abdomen--epigatsric tenderness Extremities--no cyanosis or clubbing. No edema. Dermatologic--normal skin turgor, normal color, no abnormal lymph nodes, no rash. Neurologic--cranial nerves II through XII grossly intact. Rheumatologic--normal range of motion. Psychiatric--normal affect. Results & Data Results & Data Vital Signs (Past 12 Hours) Vital Signs Temp Pulse Resp BP Pulse Ox O2 Del Method 09/27/22 12:27 97.7 F 104 H 17 103/76 97 Room Air 09/27/22 09:19 98.2 F 123 H 19 92/61 L 99 Room Air 09/27/22 08:00 78 09/27/22 03:22 97.9 F 100 H 22 122/79 98 Room Air PG Care Time/CCT Total # of Minutes Spent Total Time Spent with Patient: Total time spent is greater than 50% in coordination of care (as documented) at patient's floor/unit and/or counseling patient: Coding Level of Care Code 52625 SUB INP/OBS CARE 2/35MIN Diagnoses Acute blood loss anemia D62 Hyperkalemia E87.5 Ascites R18.8 Epigastric pain R10.13 UTI (urinary tract infection) N39.0 Hyperammonemia E72.20 CKD (chronic kidney disease) N18.9 Symptomatic anemia D64.9 GAVE (gastric antral vascular ectasia) K31.819 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 K75.81; K74.60 Hypothyroidism E03.9 Time Spent (min) 35
[2022-09-27] MEDS: PARoxetine HCL 10 MG TAB PO SCH (20:06)
[2022-09-28] MEDS: LACTULOSE SYRUP 20 GM/30 ML UDC PO SCH ×4 (05:40→22:49)
[2022-09-28 06:05] LABS: Hematocrit (blood only) 22.3 % (42.0-52.0); Hemoglobin 7.4 g/dl (14.0-18.0); Mean Corpuscular Hemoglobin 35.2 pg (25.0-34.0); Mean Corpuscular Hgb Conc 33.2 g/dL (32.0-36.0); Mean Corpuscular Volume 106.2 fL (80.0-100.0); Mean Platelet Volume 9.4 fL (9.4-12.4); Platelet Count 58 K/uL (130-400); RDW Coefficient of Variation 22.1 % (11.5-14.5); RDW Standard Deviation 84.9 fL (36.4-46.3); White Blood Count 6.57 K/ul (4.8-10.8)
[2022-09-28 06:22] LABS: BUN Creatinine Ratio 16.1 (10-20); Calcium 9.2 mg/dl (8.6-10.3); Creatinine Clr Calc Pharmacy 36.4 ml/min; Est GFR (African American) 31.6 ml/min; Est GFR (Non-African American) 27.3 ml/min; Potassium 4.5 mmol/L (3.5-5.1)
[2022-09-28] MEDS: SUCRALFATE 1 GM/10 ML UDC PO SCH ×4 (07:56→20:01)
[2022-09-28] MEDS: MIDODRINE HCL 10 MG TAB PO SCH ×3 (07:56→17:07)
[2022-09-28] MEDS: PANTOprazole 40 MG TAB PO SCH ×2 (08:02→20:01)
[2022-09-28] MEDS: rifAXIMin 550 MG TABLET PO SCH ×2 (08:02→20:02)
[2022-09-28] MEDS ORDERED: SODIUM CHLORIDE 0.9% 250 ML IV PRN (11:57)
--- NOTE | 2022-09-28 14:00 | Hospitalist Progress Note ---
Date of Service September 28, 2022 Assessment & Plan (1) Acute blood loss anemia: Plan: Concerning history of GAVE and esophageal varices Admitted with maroon color stool and Hb of 6.9 s/p transfusion of 1 unit of blood, hemoglobin stable posttransfusion. No new GI bleeds. Evaluated by GI, no need for repeat endoscopy Most recent was push enteroscopy on 09/02 Now on p.o. pantoprazole twice daily 40 mg Hemoglobin 7.4 today, will transfuse another unit of blood (2) Hyperkalemia: Plan: Resolved (3) Ascites: Plan: From Liver cirrhosis Discussions regarding placement in transplant list (4) Epigastric pain: Plan: CT abdomen and pelvis did not show any evidence of bowel obstruction or pneumoperitoneum but shows findings consistent with venous hypertension splenomegaly and ascites. (5) UTI (urinary tract infection): Plan: Urinalysis suggestive of UTI Completed a course of IV ceftriaxone However urine cultures positive for E faecium, resistant to many medicines apart from nitrofurantoin Although E faecium is usually a gut commensal, I will treat him with p.o. nitrofurantoin (6) Hyperammonemia: Plan: No significant hepatic encephalopathy -now on PO lactulose Repeat ammonia 38 today (7) CKD (chronic kidney disease): Plan: At baseline, continue to monitor (8) Symptomatic anemia: Plan: s/p transfusion of 1 unit of blood (9) GAVE (gastric antral vascular ectasia): (10) 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: (11) Hypothyroidism: Plan After PT evaluation, they recommend rehab, discharge to rehab when accepted. Admission and Anticipated Discharge Date Admission Date: September 23, 2022 Subjective Patient seen and examined today, feels overall better, states abdominal pain is much better, tolerating diet, having bowel movements. Review of Systems Review of Systems: All systems reviewed are negative, apart from the ones contained in the history. Physical Exam Physical Exam: The patient is awake, alert and oriented 3, well developed and well nourished, normocephalic and atraumatic, lying in bed and in no acute distress. HEENT--PERRL, EOMI, mucous membranes and oropharynx mildly dry Neck--supple. No JVD. No bruits. Thyroid normal, trachea midline, no adenopathy. Heart--normal S1 and S2. No murmurs, rubs or gallops. Lungs--clear bilaterally, no respiratory distress, no accessory muscle use. Abdomen--epigatsric tenderness Extremities--no cyanosis or clubbing. No edema. Dermatologic--normal skin turgor, normal color, no abnormal lymph nodes, no rash. Neurologic--cranial nerves II through XII grossly intact. Rheumatologic--normal range of motion. Psychiatric--normal affect. Results & Data Results & Data Vital Signs (Past 12 Hours) Vital Signs Temp Pulse Pulse Resp BP BP Pulse Ox 09/28/22 13:34 97.7 F 100 H 16 124/77 98 09/28/22 13:33 97.7 F 100 H 16 124/77 98 09/28/22 12:14 97.9 F 122 H 20 106/72 96 09/28/22 07:10 98.6 F 119 H 18 91/64 L 96 09/28/22 06:49 100 H 09/28/22 02:48 98.2 F 106 H 18 94/55 L 99 O2 Del Method O2 Flow Rate 09/28/22 13:34 2 09/28/22 13:33 Room Air 09/28/22 12:14 Room Air 09/28/22 07:10 Room Air 09/28/22 06:49 09/28/22 02:48 Room Air PG Care Time/CCT Total # of Minutes Spent Total Time Spent with Patient: Total time spent is greater than 50% in coordination of care (as documented) at patient's floor/unit and/or counseling patient: Coding Level of Care Code 08848 SUB INP/OBS CARE 2/35MIN Diagnoses Acute blood loss anemia D62 Hyperkalemia E87.5 Ascites R18.8 Epigastric pain R10.13 UTI (urinary tract infection) N39.0 Hyperammonemia E72.20 CKD (chronic kidney disease) N18.9 Symptomatic anemia D64.9 GAVE (gastric antral vascular ectasia) K31.819 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 K75.81; K74.60 Hypothyroidism E03.9 Time Spent (min) 35
[2022-09-28] MEDS: NITROFURANTOIN MONOHYDRATE 100 MG CAP PO SCH (14:53)
[2022-09-28] MEDS: PARoxetine HCL 10 MG TAB PO SCH (20:01)
[2022-09-29] MEDS: NITROFURANTOIN MONOHYDRATE 100 MG CAP PO SCH (05:35)
[2022-09-29] MEDS: LACTULOSE SYRUP 20 GM/30 ML UDC PO SCH ×4 (05:36→23:48)
[2022-09-29 07:06] LABS: Hematocrit (blood only) 25.7 % (42.0-52.0); Hemoglobin 8.7 g/dl (14.0-18.0); Mean Corpuscular Hemoglobin 34.3 pg (25.0-34.0); Mean Corpuscular Hgb Conc 33.9 g/dL (32.0-36.0); Mean Corpuscular Volume 101.2 fL (80.0-100.0); Mean Platelet Volume 10.1 fL (9.4-12.4); Platelet Count 61 K/uL (130-400); RDW Coefficient of Variation 20.4 % (11.5-14.5); RDW Standard Deviation 72.6 fL (36.4-46.3); Red Blood Count 2.54 M/uL (4.70-6.10); White Blood Count 5.68 K/ul (4.8-10.8)
[2022-09-29 07:22] LABS: BUN Creatinine Ratio 14.9 (10-20); Calcium 9.1 mg/dl (8.6-10.3); Creatinine Clr Calc Pharmacy 36.5 ml/min; Est GFR (African American) 31.8 ml/min; Est GFR (Non-African American) 27.4 ml/min; Potassium 4.2 mmol/L (3.5-5.1)
[2022-09-29] MEDS: SUCRALFATE 1 GM/10 ML UDC PO SCH ×4 (09:00→19:44)
[2022-09-29] MEDS: MIDODRINE HCL 10 MG TAB PO SCH ×3 (09:00→17:57)
[2022-09-29] MEDS: rifAXIMin 550 MG TABLET PO SCH ×2 (09:01→19:45)
[2022-09-29] MEDS: PANTOprazole 40 MG TAB PO SCH ×2 (09:01→19:45)
[2022-09-29] MEDS ORDERED: VANCOMYCIN HCL 2,250 MG in SODIUM CHLORIDE 0.9% 500 ML IV ONE (14:21)
[2022-09-29] MEDS ORDERED: VANCOMYCIN CONSULT ACTIVE PRN (14:21)
--- NOTE | 2022-09-29 14:30 | Hospitalist Progress Note ---
Date of Service September 29, 2022 Assessment & Plan (1) Acute blood loss anemia: Plan: Concerning history of GAVE and esophageal varices Admitted with maroon color stool and Hb of 6.9 s/p transfusion of 2u prbcs total Hgb improved, will monitor Evaluated by GI, no need for repeat endoscopy Most recent was push enteroscopy on 09/02 Now on p.o. pantoprazole twice daily 40 mg (2) Ascites: Plan: From Liver cirrhosis, on liver transplant list Mild abdominal TTP - low threshold for paracentesis to assess for SBP - will hold off for now as other reasons for abodminal discomfort (3) Epigastric pain: Plan: CT abdomen and pelvis did not show any evidence of bowel obstruction or pneumoperitoneum but shows findings consistent with venous hypertension splenomegaly and ascites. (4) UTI (urinary tract infection): Plan: Urinalysis suggestive of UTI Completed a course of IV ceftriaxone Urine cultures positive for E faecium, with multi-resistant pattern - did receive nitrofurantoin (sensitive to this) initially but given CKD, changed to renally dosed vancomycin (5) Hyperammonemia: Plan: No significant hepatic encephalopathy -now on PO lactulose Recheck ammonia in am (6) CKD (chronic kidney disease): Plan: At baseline, continue to monitor (7) Symptomatic anemia: Plan: s/p transfusion of 2 units of blood (8) GAVE (gastric antral vascular ectasia): (9) 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: (10) Hypothyroidism: Plan: Last TSH 6.4 09/01/22, not currently on synthroid Recheck TSH in am Plan After PT evaluation, they recommend rehab, plan to discharge to [facility] when stable for discharge and they have availability Admission and Anticipated Discharge Date Admission Date: September 23, 2022 Subjective Feels much better todayfeels more energy and minimal lightheadedness or dizziness at this time. Denies any chest pain or shortness of breath. Does have ongoing mild abdominal discomfort. Notes that his urine has been low- volume and bright orange/red in color and foul smell. Notes coffee ground looking material in his stool. Physical Exam Physical Exam: General: Chronically ill-appearing, NAD, seen working with PT and walking well Cardiovascular: RRR Pulmonary: CTAB, no W/R/R Abdomen: Soft, mild TTP globally, no guarding Neurologic: AAOx3, no focal deficits Psychiatric: Appropriate mood/affect Results & Data Results & Data Vital Signs (Past 12 Hours) Vital Signs Temp Pulse Resp BP Pulse Ox O2 Del Method 09/29/22 11:49 36.4 C L 102 H 18 100/75 96 Room Air 09/29/22 08:00 36.7 C 91 H 18 85/69 L 97 Room Air 09/29/22 02:41 36.8 C 90 18 102/64 94 Room Air Laboratory Results Reviewed CBChemoglobin improved to 8.7, platelet stable at 61 Reviewed BMPsodium mild decreased to 129, creatinine stable at 2.35 Reviewed urine micro from nterococcus faecium sensitive to nitrofurantoin, vanc, gent PG Care Time/CCT Total # of Minutes Spent Total Time Spent with Patient: Total time spent is greater than 50% in coordination of care (as documented) at patient's floor/unit and/or counseling patient: Coding Level of Care Code 73661 SUB INP/OBS CARE 2/35MIN Diagnoses Acute blood loss anemia D62 Ascites R18.8 Epigastric pain R10.13 UTI (urinary tract infection) N39.0 Hyperammonemia E72.20 CKD (chronic kidney disease) N18.9 Symptomatic anemia D64.9 GAVE (gastric antral vascular ectasia) K31.819 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 K75.81; K74.60 Hypothyroidism E03.9
--- NOTE | 2022-09-29 15:05 | Pharmacy Report ---
Pharmacy PK ABX Note - Date of Service September 29, 2022 - Assessment and Plan Assessment * 67 year old M admitted for acute blood loss anemia receiving vancomycin for treatment of MDR E. faecium UTI. * Pertinent microbiologic data includes: * 09/23 blood cultures - no growth (finalized) * 09/25 urine culture - MDR E. faecium (sensitive only to Macrobid and vancomycin) * SCr stable, but significantly elevated. Vancomycin * Given significantly elevated SCr will dose via level to start. However, may be able to schedule vancomycin tomorrow after AM level and SCr assessment due to stable SCr * Will load with 20 mg/kg and obtain random level tomorrow AM * AUC-based monitoring may be reasonable starting tomorrow, if SCr remains stable * Goal AUC/CARROLL of 400-600 mg/L.hr Plan Vancomycin * Loading dose: 2250 mg IV x 1 * Random level ordered for 8/5 AM Pharmacy will continue to follow and will adjust dose/frequency as necessary. Thank you. Pharmacy has transitioned to AUC monitoring for vancomycin. AUC/CARROLL is the preferred PK/PD target and is associated with decreased risk of nephrotoxicity compared to traditional trough targets.
[2022-09-29] MEDS: PARoxetine HCL 10 MG TAB PO SCH (19:45)
[2022-09-30] MEDS: ONDANSETRON 4 MG OD TAB PO PRN (03:41)
[2022-09-30] MEDS: LACTULOSE SYRUP 20 GM/30 ML UDC PO SCH ×4 (05:11→23:43)
[2022-09-30 05:26] LABS: Hemoglobin 9.2 g/dl (14.0-18.0); Mean Corpuscular Hemoglobin 34.3 pg (25.0-34.0); Mean Corpuscular Hgb Conc 32.9 g/dL (32.0-36.0); Mean Corpuscular Volume 104.5 fL (80.0-100.0); Mean Platelet Volume 8.4 fL (9.4-12.4); Platelet Count 40 K/uL (130-400); RDW Coefficient of Variation 20.6 % (11.5-14.5); RDW Standard Deviation 76.9 fL (36.4-46.3); Red Blood Count 2.68 M/uL (4.70-6.10); White Blood Count 5.73 K/ul (4.8-10.8)
[2022-09-30 05:47] LABS: BUN Creatinine Ratio 15.1 (10-20); Calcium 9.1 mg/dl (8.6-10.3); Creatinine Clr Calc Pharmacy 39.3 ml/min; Est GFR (African American) 34.8 ml/min; Potassium 4.5 mmol/L (3.5-5.1)
[2022-09-30 06:01] LABS: Thyroid Stimulating Hormone 6.38 uIu/ml (0.300-4.500)
[2022-09-30 06:37] LABS: T4 Free Thyroxine 0.52 ng/dl (0.61-1.60)
--- NOTE | 2022-09-30 07:21 | Electrocardiogram Report ---
Test Reason : Blood Pressure : / mmHG Vent. Rate : 093 BPM Atrial Rate : 093 BPM P-R Int : 174 ms QRS Dur : 086 ms QT Int : 360 ms P-R-T Axes : 046 -28 015 degrees QTc Int : 447 ms Normal sinus rhythm with sinus arrhythmia Low voltage QRS Borderline ECG When compared with ECG of 28-SEP-2022 11:42, (unconfirmed) Premature atrial complexes are no longer Present Minimal criteria for Anterior infarct are no longer Present Confirmed by Franklyn Hartman ([id number]) on 09/30/2022 7:21:36 AM Referred By: REFERRED SELF Confirmed By:Juan Hartman
--- NOTE | 2022-09-30 08:18 | Hospitalist Progress Note ---
Date of Service September 30, 2022 Assessment & Plan (1) Acute blood loss anemia: Plan: Concerning history of GAVE and esophageal varices Admitted with maroon color stool and Hb of 6.9 s/p transfusion of 2u prbcs total Hgb continues to improve, will monitor Evaluated by GI, no need for repeat endoscopy Most recent was push enteroscopy on 09/02 Now on p.o. pantoprazole twice daily 40 mg (2) Ascites: Plan: From Liver cirrhosis, on liver transplant list Mild abdominal TTP but primarily in epigastric/upper abdomen. Low threshold for paracentesis to assess for SBP - will hold off for now as other reasons for abdominal discomfort (3) Epigastric pain: Plan: CT abdomen and pelvis did not show any evidence of bowel obstruction or pneum operitoneum but shows findings consistent with venous hypertension splenomegaly and ascites Low threshold for paracentesis to assess for SBP (4) UTI (urinary tract infection): Plan: Urinalysis suggestive of UTI Completed a course of IV ceftriaxone Urine cultures positive for E faecium, with multi-resistant pattern - did receive nitrofurantoin (sensitive to this) initially but given CKD, changed to renally dosed vancomycin, would recommend 7-10 days of antibiotics (including nitrofurantoin, antibiotics would be 8/4 - 8/-13) (5) Hyperammonemia: Plan: No significant hepatic encephalopathy -now on PO lactulose Ammonia normal at 24 (6) CKD (chronic kidney disease): Plan: Approximated to be at baseline, continue to monitor (7) Symptomatic anemia: Plan: s/p transfusion of 2 units of blood and improving Hgb, continue to monitor (8) GAVE (gastric antral vascular ectasia): (9) 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: Plan: Continue lactulose and rifaximin (10) Hypothyroidism: Plan: TSH mildly elevated at 6.38 with free T4 of 1.52, hold on synthroid Plan After PT evaluation, they recommend rehab, plan to discharge to [facility] when stable for discharge and they have availability Admission and Anticipated Discharge Date Admission Date: September 23, 2022 Subjective Overall doing well. States his energy goes up and down. Denies lightheadedness or dizziness, chest pain, shortness of breath. Endorses intermittent abdominal pain in the epigastric region. Has had several large bowel movements. Physical Exam Physical Exam: General: Chronically ill-appearing, NAD Cardiovascular: RRR Pulmonary: CTAB, no W/R/R Abdomen: Soft, mild TTP of upper and epigastric region of abdomen and not lower abdomen, no guarding Neurologic: AAOx3, no focal deficits Psychiatric: Appropriate mood/affect Results & Data Results & Data Vital Signs (Past 12 Hours) Vital Signs Temp Pulse Pulse Resp BP Pulse Ox O2 Del Method 09/30/22 03:00 36.7 C 89 16 109/68 99 Room Air 09/30/22 00:10 91 H 09/29/22 23:00 36.6 C 89 16 100/62 96 Room Air Laboratory Results Notable for increased hemoglobin to 9.2, sodium mildly increased and stable at 131, creatinine decreased to 2.18, ammonia 24, TSH mildly elevated at 6.38 with free T4 of 1.52 PG Care Time/CCT Total # of Minutes Spent Total Time Spent with Patient: Total time spent is greater than 50% in coordination of care (as documented) at patient's floor/unit and/or counseling patient: Coding Level of Care Code 17093 SUB INP/OBS CARE 2/35MIN Diagnoses Acute blood loss anemia D62 Ascites R18.8 Epigastric pain R10.13 UTI (urinary tract infection) N39.0 Hyperammonemia E72.20 CKD (chronic kidney disease) N18.9 Symptomatic anemia D64.9 GAVE (gastric antral vascular ectasia) K31.819 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 K75.81; K74.60 Hypothyroidism E03.9
[2022-09-30] MEDS: SUCRALFATE 1 GM/10 ML UDC PO SCH ×4 (09:13→19:57)
[2022-09-30] MEDS: rifAXIMin 550 MG TABLET PO SCH ×2 (09:13→19:57)
[2022-09-30] MEDS: PANTOprazole 40 MG TAB PO SCH ×2 (09:14→19:58)
[2022-09-30] MEDS: MIDODRINE HCL 10 MG TAB PO SCH ×3 (09:14→17:33)
[2022-09-30] MEDS: VANCOMYCIN HCL 1,250 MG in SODIUM CHLORIDE 0.9% 250 ML IV SCH (10:32)
[2022-09-30] MEDS: PARoxetine HCL 10 MG TAB PO SCH (19:58)
[2022-10-01] MEDS: LACTULOSE SYRUP 20 GM/30 ML UDC PO SCH ×3 (05:04→17:13)
[2022-10-01 06:46] LABS: Hematocrit (blood only) 26.1 % (42.0-52.0); Hemoglobin 8.5 g/dl (14.0-18.0); Mean Corpuscular Hemoglobin 34.3 pg (25.0-34.0); Mean Corpuscular Hgb Conc 32.6 g/dL (32.0-36.0); Mean Corpuscular Volume 105.2 fL (80.0-100.0); Mean Platelet Volume 9.4 fL (9.4-12.4); Platelet Count 47 K/uL (130-400); RDW Coefficient of Variation 20.7 % (11.5-14.5); RDW Standard Deviation 78.6 fL (36.4-46.3); Red Blood Count 2.48 M/uL (4.70-6.10); White Blood Count 5.92 K/ul (4.8-10.8)
[2022-10-01 07:04] LABS: BUN Creatinine Ratio 15.1 (10-20); Calcium 8.8 mg/dl (8.6-10.3); Creatinine Clr Calc Pharmacy 38.7 ml/min; Est GFR (African American) 33.5 ml/min; Est GFR (Non-African American) 28.9 ml/min; Potassium 4.4 mmol/L (3.5-5.1)
[2022-10-01] MEDS: MIDODRINE HCL 10 MG TAB PO SCH ×3 (08:16→17:12)
[2022-10-01] MEDS: SUCRALFATE 1 GM/10 ML UDC PO SCH ×4 (08:16→20:19)
[2022-10-01] MEDS: rifAXIMin 550 MG TABLET PO SCH ×2 (08:17→20:20)
[2022-10-01] MEDS: PANTOprazole 40 MG TAB PO SCH ×2 (08:17→20:19)
[2022-10-01] MEDS: VANCOMYCIN HCL 1,250 MG in SODIUM CHLORIDE 0.9% 250 ML IV SCH (09:26)
[2022-10-01] MEDS: METOPROLOL TARTRATE 25 MG TAB PO SCH ×2 (13:22→20:19)
--- NOTE | 2022-10-01 16:40 | Hospitalist Progress Note ---
Date of Service October 01, 2022 Assessment & Plan (1) Acute blood loss anemia: Plan: history of GAVE and esophageal varices. Suspect upper GI bleeding source. Continue Protonix PPI therapy. Admitted with maroon color stool and Hb of 6.9. s/p transfusion of 2u prbcs total. Hemoglobin stable at 8.5. Appreciate GI consult and recommendations. No need for repeat endoscopy. Most recent was push enteroscopy on 09/02 (2) Ascites: Plan: FromNASH liver cirrhosis. Low threshold for paracentesis to assess for SBP (3) Epigastric pain: Plan: CT abdomen and pelvis did not show any evidence of bowel obstruction or pneumoperitoneum but shows findings consistent with venous hypertension, splenomegaly, and ascites. Low threshold for paracentesis to assess for SBP (4) UTI (urinary tract infection): Plan: Enterococcus faecium isolated. Treated while hospitalized with Rocephin and vancomycin. Switched to Macrodantin at discharge (5) Hyperammonemia: Plan: No significant hepatic encephalopathy -now on PO lactulose. (6) CKD (chronic kidney disease): Plan: Monitor intake and output. Serial labs . Stage III (7) Symptomatic anemia: Plan: s/p transfusion of 2 units pRBC on admission. Hemoglobin is now stable. (8) GAVE (gastric antral vascular ectasia): Plan: Continue PPI therapy (9) 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: Plan: Continue lactulose and rifaximin (10) Hypothyroidism: Plan: Stable. Continue thyroid replacement therapy (11) Tachycardia: Plan: Resolved after addition of metoprolol Plan Hopeful discharge to [facility] tomorrOctober 02 Admission and Anticipated Discharge Date Admission Date: September 23, 2022 Subjective Alert and oriented. No complaints. Metoprolol added for better heart rate and blood pressure control. Intravenous vancomycin switched to oral Macrodantin which we will continue at discharge for the enterococcal faecium UTI. He probably will go to [facility] tomorrow, October 02 Review of Systems Review of Systems: Constitutional-no fever or chills ENT-no blurred vision, no double vision, no epistaxis, no sore throat Respiratory-no cough, no wheezing, no shortness of breath Cardiac-no palpitations, no chest pain, no syncope GI-no nausea, vomiting, diarrhea, melena, hematochezia -no urinary retention, no urinary incontinence, no dysuria, no hematuria Musculoskeletal-no joint pain, no muscle tenderness Skin-no bruising, no rashes, no pruritus Neuro-no isolated weakness, no paresthesia, no weakness Psych-no depression, no anxiety Physical Exam Physical Exam: General-alert and oriented x3, no fevers, no chills HEENT-head atraumatic and normocephalic, pupils equal and reactive to light, extraocular muscles intact Neck-no lymphadenopathy or thyromegaly, trachea midline Chest-clear to auscultation percussion. No rales wheezing or rhonchi Cardiac-tachycardic irregular rhythm. Normal S1 and S2 Abdomen-normal bowel sounds, nontender, no hepatosplenomegaly Extremities-no cyanosis, clubbing, or edema Neuro-cranial nerves II through XII intact, motor and sensory function within normal limits, strength symmetrical , no focal deficits Psych-normal affect, normal mood Results & Data Results & Data Vital Signs (Past 12 Hours) Vital Signs Temp Pulse Resp BP Pulse Ox O2 Del Method 10/01/22 15:39 36.4 C L 68 18 108/75 97 Room Air 10/01/22 13:21 102 H 100/78 10/01/22 11:43 36.8 C 126 H 19 105/74 98 Room Air 10/01/22 07:48 36.8 C 90 19 116/72 94 Room Air Laboratory Results 10/01/22 06:03 10/01/22 06:03 PG Care Time/CCT Total # of Minutes Spent Total Time Spent with Patient: Total time spent is greater than 50% in coordination of care (as documented) at patient's floor/unit and/or counseling patient: Coding Level of Care Code 06067 SUB INP/OBS CARE 3/50MIN Diagnoses Acute blood loss anemia D62 Ascites R18.8 Epigastric pain R10.13 UTI (urinary tract infection) N39.0 Hyperammonemia E72.20 CKD (chronic kidney disease) N18.9 Symptomatic anemia D64.9 GAVE (gastric antral vascular ectasia) K31.819 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 K75.81; K74.60 Hypothyroidism E03.9 Tachycardia R00.0
[2022-10-01] MEDS: PARoxetine HCL 10 MG TAB PO SCH (20:19)
[2022-10-01] MEDS: NITROFURANTOIN MONOHYDRATE 100 MG CAP PO SCH (20:20)
[2022-10-02] MEDS: LACTULOSE SYRUP 20 GM/30 ML UDC PO SCH ×5 (01:04→23:10)
[2022-10-02] MEDS: ONDANSETRON 4 MG OD TAB PO PRN ×2 (02:39→23:22)
[2022-10-02 06:11] LABS: Hematocrit (blood only) 26.2 % (42.0-52.0); Hemoglobin 8.7 g/dl (14.0-18.0); Mean Corpuscular Hemoglobin 35.1 pg (25.0-34.0); Mean Corpuscular Hgb Conc 33.2 g/dL (32.0-36.0); Mean Corpuscular Volume 105.6 fL (80.0-100.0); Mean Platelet Volume 9.8 fL (9.4-12.4); Platelet Count 56 K/uL (130-400); RDW Coefficient of Variation 20.6 % (11.5-14.5); RDW Standard Deviation 79.7 fL (36.4-46.3); Red Blood Count 2.48 M/uL (4.70-6.10); White Blood Count 4.94 K/ul (4.8-10.8)
[2022-10-02 06:28] LABS: BUN Creatinine Ratio 13.9 (10-20); Calcium 8.9 mg/dl (8.6-10.3); Creatinine Clr Calc Pharmacy 36.8 ml/min; Est GFR (African American) 31.4 ml/min; Est GFR (Non-African American) 27.1 ml/min; Potassium 4.2 mmol/L (3.5-5.1)
[2022-10-02] MEDS: PANTOprazole 40 MG TAB PO SCH ×2 (08:09→21:05)
[2022-10-02] MEDS: NITROFURANTOIN MONOHYDRATE 100 MG CAP PO SCH ×2 (08:09→21:04)
[2022-10-02] MEDS: rifAXIMin 550 MG TABLET PO SCH ×2 (08:09→21:05)
[2022-10-02] MEDS: MIDODRINE HCL 10 MG TAB PO SCH ×3 (08:10→17:01)
[2022-10-02] MEDS: SUCRALFATE 1 GM/10 ML UDC PO SCH ×4 (08:10→21:05)
[2022-10-02] MEDS: METOPROLOL TARTRATE 25 MG TAB PO SCH ×2 (08:11→21:06)
--- NOTE | 2022-10-02 15:22 | Hospitalist Progress Note ---
Date of Service October 02, 2022 Assessment & Plan (1) Acute blood loss anemia: Plan: history of GAVE and esophageal varices. Suspect upper GI bleeding source. Continue Protonix PPI therapy. Admitted with maroon color stool and Hb of 6.9. s/p transfusion of 2u prbcs total. Hemoglobin now stable. Appreciate GI consult and recommendations. No need for repeat endoscopy. Most recent was push enteroscopy on 09/02 (2) Ascites: Plan: FromNASH liver cirrhosis. Low threshold for paracentesis to assess for SBP (3) Epigastric pain: Plan: CT abdomen and pelvis did not show any evidence of bowel obstruction or pneumoperitoneum but shows findings consistent with venous hypertension, splenomegaly, and ascites. Low threshold for paracentesis to assess for SBP (4) UTI (urinary tract infection): Plan: Enterococcus faecium isolated. Treated while hospitalized with Rocephin and vancomycin. Switched to oral Macrodantin for several more days (5) Hyperammonemia: Plan: No significant hepatic encephalopathy. Now on PO lactulose. (6) CKD (chronic kidney disease): Plan: Monitor intake and output. Serial labs . Stage III (7) Symptomatic anemia: Plan: s/p transfusion of 2 units pRBC on admission. Hemoglobin is now stable. (8) GAVE (gastric antral vascular ectasia): Plan: Continue PPI therapy (9) 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: Plan: Continue lactulose and rifaximin (10) Hypothyroidism: Plan: Stable. Continue thyroid replacement therapy (11) Tachycardia: Plan: Resolved after addition of metoprolol. He is now actually mildly bradycardic. Metoprolol dosage down titrated today, October 02 Plan Hopeful discharge to [facility] tomorrow, October 03 Admission and Anticipated Discharge Date Admission Date: September 23, 2022 Subjective Alert and oriented. Metoprolol was added yesterday, October 01, and he now has mild bradycardia. Metoprolol dosage down titrated today. Systolic blood pressure is between 90 and 100 which is chronic for him. This is why he is on midodrine chronically. Hemoglobin is stable. Platelet count is low but stable. Creatinine is stable. Hopeful discharge to [facility] tomorrow, October 03 Review of Systems Review of Systems: Constitutional-no fever or chills ENT-no blurred vision, no double vision, no epistaxis, no sore throat Respiratory-no cough, no wheezing, no shortness of breath Cardiac-no palpitations, no chest pain, no syncope GI-no nausea, vomiting, diarrhea, melena, hematochezia -no urinary retention, no urinary incontinence, no dysuria, no hematuria Musculoskeletal-no joint pain, no muscle tenderness Skin-no bruising, no rashes, no pruritus Neuro-no isolated weakness, no paresthesia, no weakness Psych-no depression, no anxiety Physical Exam Physical Exam: General-alert and oriented x3, no fevers, no chills HEENT-head atraumatic and normocephalic, pupils equal and reactive to light, extraocular muscles intact Neck-no lymphadenopathy or thyromegaly, trachea midline Chest-clear to auscultation percussion. No rales wheezing or rhonchi Cardiac-bradycardic irregular rhythm. Normal S1 and S2 Abdomen-normal bowel sounds, nontender, no hepatosplenomegaly Extremities-no cyanosis, clubbing, or edema Neuro-cranial nerves II through XII intact, motor and sensory function within normal limits, strength symmetrical , no focal deficits Psych-normal affect, normal mood Results & Data Results & Data Vital Signs (Past 12 Hours) Vital Signs Temp Pulse Pulse Resp BP BP Pulse Ox 10/02/22 15:04 36.5 C 55 L 18 95/60 L 98 10/02/22 11:22 36.5 C 58 L 18 86/47 L 96 10/02/22 07:32 36.6 C 58 L 18 93/54 L 99 10/02/22 07:00 57 L O2 Del Method 10/02/22 15:04 Room Air 10/02/22 11:22 Room Air 10/02/22 07:32 Room Air 10/02/22 07:00 Laboratory Results 10/02/22 05:42 10/02/22 05:42 PG Care Time/CCT Total # of Minutes Spent Total Time Spent with Patient: Total time spent is greater than 50% in coordination of care (as documented) at patient's floor/unit and/or counseling patient: Coding Level of Care Code 09253 SUB INP/OBS CARE 3/50MIN Diagnoses Acute blood loss anemia D62 Ascites R18.8 Epigastric pain R10.13 UTI (urinary tract infection) N39.0 Hyperammonemia E72.20 CKD (chronic kidney disease) N18.9 Symptomatic anemia D64.9 GAVE (gastric antral vascular ectasia) K31.819 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 K75.81; K74.60 Hypothyroidism E03.9 Tachycardia R00.0
[2022-10-02] MEDS: PARoxetine HCL 10 MG TAB PO SCH (21:05)
[2022-10-03] MEDS: LACTULOSE SYRUP 20 GM/30 ML UDC PO SCH ×3 (05:55→18:29)
[2022-10-03] MEDS: ONDANSETRON 4 MG OD TAB PO PRN ×2 (06:00→16:26)
[2022-10-03 06:34] LABS: Mean Corpuscular Hemoglobin 34.5 pg (25.0-34.0); Mean Corpuscular Hgb Conc 33.3 g/dL (32.0-36.0); Mean Corpuscular Volume 103.4 fL (80.0-100.0); Mean Platelet Volume 9.7 fL (9.4-12.4); Platelet Count 52 K/uL (130-400); RDW Coefficient of Variation 20.2 % (11.5-14.5); Red Blood Count 2.61 M/uL (4.70-6.10); White Blood Count 5.38 K/ul (4.8-10.8)
[2022-10-03 06:47] LABS: BUN Creatinine Ratio 15.1 (10-20); Calcium 8.9 mg/dl (8.6-10.3); Creatinine Clr Calc Pharmacy 40.3 ml/min; Est GFR (African American) 34.8 ml/min; Potassium 4.2 mmol/L (3.5-5.1)
[2022-10-03] MEDS: SUCRALFATE 1 GM/10 ML UDC PO SCH ×4 (07:47→22:18)
[2022-10-03] MEDS: rifAXIMin 550 MG TABLET PO SCH ×2 (08:24→22:17)
[2022-10-03] MEDS: METOPROLOL TARTRATE 25 MG TAB PO SCH ×2 (08:24→22:09)
[2022-10-03] MEDS: PANTOprazole 40 MG TAB PO SCH ×2 (08:24→22:16)
[2022-10-03] MEDS: NITROFURANTOIN MONOHYDRATE 100 MG CAP PO SCH ×2 (08:25→22:17)
[2022-10-03] MEDS: MIDODRINE HCL 10 MG TAB PO SCH ×3 (08:25→18:29)
--- NOTE | 2022-10-03 11:15 | Discharge Summary ---
Date of Service October 03, 2022 Admission HPI Per Admitting Provider Cortes (Bill) Khang is a 67 year old male with liver cirrhosis, GAVE, recurrent GI bleeds and CKD who presents to the ER with generalized weakness and worsening edema over the last week. He notes his abdomen is starting to fill up again with some mild tenderness. No other complaints from the patient. He is alert and orientated. No one sided weakness, change in speech, hearing or vision. With regards to his high potassium. He reports recently seeing the liver transplant team and being told his potassium was low so to start on potassium supplementation (although no prescription of this was found on external med re c). Principal Diagnosis Upper GI bleed, acute blood loss anemia, tachycardia, enterobacter UTI Discharge Exam General-alert and oriented x3, no fevers, no chills HEENT-head atraumatic and normocephalic, pupils equal and reactive to light, extraocular muscles intact Neck-no lymphadenopathy or thyromegaly, trachea midline Chest-clear to auscultation percussion. No rales wheezing or rhonchi Cardiac-bradycardic irregular rhythm. Normal S1 and S2 Abdomen-normal bowel sounds, nontender, no hepatosplenomegaly Extremities-no cyanosis, clubbing, or edema Neuro-cranial nerves II through XII intact, motor and sensory function within normal limits, strength symmetrical , no focal deficits Psych-normal affect, normal mood Discharge Data Allergies Allergy/AdvReac Type Severity Reaction Status Date / Time tamsulosin Allergy Intermediate HIVES Verified 09/23/22 16:01 etanercept [From Enbrel] AdvReac Intermediate Increased Verified 09/23/22 16:01 infections Consultations 09/23/22 14:53 ED Decision to Admit Stat 09/23/22 21:13 Consult Gastroenterology Routine Ordered Studies 09/23/22 15:08 CT abd pelvis wo con Stat CT chest diagnostic wo con Stat CT head/brain wo con Stat 09/26/22 10:45 CT Abd and Pelvis [CT abd pelvis wo con] Urgent Hospital Course (1) Acute blood loss anemia: history of GAVE and esophageal varices. Suspect upper GI bleeding source. Continue Protonix PPI therapy. Admitted with maroon color stool and Hb of 6.9. s/p transfusion of 2u prbcs total. Hemoglobin now stable. Appreciate GI consult and recommendations. No need for repeat endoscopy. Most recent was push enteroscopy on 09/02 (2) Ascites: FromNASH liver cirrhosis. Low threshold for paracentesis to assess for SBP (3) Epigastric pain: CT abdomen and pelvis did not show any evidence of bowel obstruction or pneumoperitoneum but shows findings consistent with venous hypertension, splenomegaly, and ascites. Low threshold for paracentesis to assess for SBP (4) UTI (urinary tract infection): Enterococcus faecium isolated. Treated while hospitalized with Rocephin and vancomycin. Switched to oral Macrodantin for several more days (5) Hyperammonemia: No significant hepatic encephalopathy. Now on PO lactulose. (6) CKD (chronic kidney disease): Monitor intake and output. Serial labs . Stage III (7) Symptomatic anemia: s/p transfusion of 2 units pRBC on admission. Hemoglobin is now stable. (8) GAVE (gastric antral vascular ectasia): Continue PPI therapy (9) 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: Continue lactulose and rifaximin (10) Hypothyroidism: Stable. Continue thyroid replacement therapy (11) Tachycardia: Resolved after addition of metoprolol. He is now actually mildly bradycardic. Metoprolol dosage down titrated todayOctober 02 Plan Discharge to SNF todayOctober 03 Total Time Total Time Spent Total Time Spent (In Minutes): 45 minutes Discharge Plan Discharge Items Patient Disposition: Transfer [facility] Reason For Visit: anemia, hyperkalemia Discharge Diagnosis: Suspected recurrent upper GI bleeding, acute blood loss anemia, sinus tachycardia, enterococcal UTI Activity: Resume your previous activity Non-emergency contact: Primary Care Provider Call non-emergency contact if: you have any medication questions Follow-up/Referrals: Fiorella Castellano DO [Primary Care Provider] - Diet: Regular and Heart Healthy Addtl Attending Provider Instructions: Take nitrofurantoin for 3 more days. Low-dose metoprolol is for heart rate control Pending Studies at Discharge: No Stand-Alone Forms: My [facility] Skilled Items Patient informed of condition?: Yes DNR: Yes Discharge Level of Care: Skilled Communicable Disease: No Discharge Prognosis: Stable Lines: None Urinary Catheter: No Medications and DC Order Prescriptions: New nitrofurantoin monohyd/m-cryst 100 mg Capsule 100 mg PO BID Qty: 0 0RF pantoprazole 40 mg Tablet,Delayed Release (Dr/Ec) 40 mg PO BID Qty: 0 0RF metoprolol tartrate 25 mg Tablet 12.5 mg PO BID Qty: 0 0RF Continued ondansetron HCl 4 mg tablet 4 mg PO Q8H PRN (Reason: Nausea And Vomiting) Qty: 30 1RF lactulose 10 gram/15 mL solution 20 g PO DAILY Qty: 946 3RF Rx Instructions: titrate for 2-3 bowel movements each day. (DME) Ankit See Rx Instructions .Route .MEDSUPPLY Qty: 1 0RF Rx Instructions: As directed pantoprazole 40 mg tablet,delayed release (DR/EC) 40 mg PO BID Qty: 60 3RF Xifaxan 550 mg tablet 550 mg PO BID Qty: 60 5RF furosemide 20 mg tablet 20 mg PO DAILY PRN (Reason: edema) Qty: 14 1RF midodrine 10 mg tablet 15 mg PO TID Qty: 135 1RF Rx Instructions: do not give last dose of day after 6PM or within 4 hrs of bedtime darbepoetin coretta in polysorbat 100 mcg/0.5 mL syringe 100 mcg subcut .COMPLEX PRN (Reason: NEEDED) Rx Instructions: 100 mcg subcutaneously Q weekly until Hgb >9. Then resume, Q other week. Hold for Hgb >10.; sucralfate 100 mg/mL suspension 10 ml PO ACHS Qty: 1000 2RF paroxetine HCl 10 mg tablet 10 mg PO HS darbepoetin coretta in polysorbat 200 mcg/mL solution 200 mcg subcut WK Rx Instructions: START THIS DOSE 10/05/22 Discharge Orders: Discharge Order (Routine); Ordered 10/03/22 Ordered By: Renny Barrera Admission Data Admit Date/Time: 09/23/22 18:30 Attending Provider: Renny Barrera Admit Provider: Jonyn Lares Primary Care Provider: Fiorella Castellano Other Providers: Jonny Lares ; Bernadine Preston Jr ; Heath Iraheta [facility] ; Trevor,[facility] Coding Level of Care Code 25948 INP/OBS DISCH >30 MIN Diagnoses Acute blood loss anemia D62 Ascites R18.8 Epigastric pain R10.13 UTI (urinary tract infection) N39.0 Hyperammonemia E72.20 CKD (chronic kidney disease) N18.9 Symptomatic anemia D64.9 GAVE (gastric antral vascular ectasia) K31.819 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 K75.81; K74.60 Hypothyroidism E03.9 Tachycardia R00.0
--- NOTE | 2022-10-03 12:11 | Hospitalist Progress Note ---
Date of Service October 03, 2022 Assessment & Plan (1) Acute blood loss anemia: Plan: history of GAVE and esophageal varices. Suspect upper GI bleeding source. Continue Protonix PPI therapy. Admitted with maroon color stool and Hb of 6.9. s/p transfusion of 2u prbcs total. Hemoglobin now stable. Appreciate GI consult and recommendations. No need for repeat endoscopy. Most recent was push enteroscopy on 09/02 (2) Ascites: Plan: FromNASH liver cirrhosis. Low threshold for paracentesis to assess for SBP (3) Epigastric pain: Plan: CT abdomen and pelvis did not show any evidence of bowel obstruction or pneumoperitoneum but shows findings consistent with venous hypertension, splenomegaly, and ascites. Low threshold for paracentesis to assess for SBP (4) UTI (urinary tract infection): Plan: Enterococcus faecium isolated. Treated while hospitalized with Rocephin and vancomycin. Switched to oral Macrodantin for several more days (5) Hyperammonemia: Plan: No significant hepatic encephalopathy. Now on PO lactulose. (6) CKD (chronic kidney disease): Plan: Monitor intake and output. Serial labs . Stage III (7) Symptomatic anemia: Plan: s/p transfusion of 2 units pRBC on admission. Hemoglobin is now stable. (8) GAVE (gastric antral vascular ectasia): Plan: Continue PPI therapy (9) 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: Plan: Continue lactulose and rifaximin (10) Hypothyroidism: Plan: Stable. Continue thyroid replacement therapy (11) Tachycardia: Plan: Resolved after addition of metoprolol. He is now actually mildly bradycardic. Metoprolol dosage down titrated on October 02 (12) Prostatism: Plan: Chronic. Unfortunately he cannot be started on Flomax due to his low blood pressure status Plan To be determined. Probable SNF placement when arrangements are finalized Admission and Anticipated Discharge Date Admission Date: September 23, 2022 Subjective Alert and oriented. He has symptoms of prostatism which are not new but due to his low blood pressure he has not been started on Flomax. Anticipated discharge to SNF has been placed on hold until arrangements are finalized Review of Systems Review of Systems: Constitutional-no fever or chills ENT-no blurred vision, no double vision, no epistaxis, no sore throat Respiratory-no cough, no wheezing, no shortness of breath Cardiac-no palpitations, no chest pain, no syncope GI-no nausea, vomiting, diarrhea, melena, hematochezia -no urinary retention, no urinary incontinence, no dysuria, no hematuria Musculoskeletal-no joint pain, no muscle tenderness Skin-no bruising, no rashes, no pruritus Neuro-no isolated weakness, no paresthesia, no weakness Psych-no depression, no anxiety Physical Exam Physical Exam: General-alert and oriented x3, no fevers, no chills HEENT-head atraumatic and normocephalic, pupils equal and reactive to light, extraocular muscles intact Neck-no lymphadenopathy or thyromegaly, trachea midline Chest-clear to auscultation percussion. No rales wheezing or rhonchi Cardiac-bradycardic irregular rhythm. Normal S1 and S2 Abdomen-normal bowel sounds, nontender, no hepatosplenomegaly Extremities-no cyanosis, clubbing, or edema Neuro-cranial nerves II through XII intact, motor and sensory function within normal limits, strength symmetrical , no focal deficits Psych-normal affect, normal mood Results & Data Results & Data Vital Signs (Past 12 Hours) Vital Signs Temp Pulse Pulse Resp BP BP Pulse Ox 10/03/22 08:28 36.3 C L 91 H 16 88/54 L 97 10/03/22 03:31 36.5 C 61 20 94/60 L 97 10/03/22 03:21 50 L O2 Del Method 10/03/22 08:28 Room Air 10/03/22 03:31 Room Air 10/03/22 03:21 Laboratory Results 10/03/22 05:38 10/03/22 05:38 PG Care Time/CCT Total # of Minutes Spent Total Time Spent with Patient: Total time spent is greater than 50% in coordination of care (as documented) at patient's floor/unit and/or counseling patient: Coding Level of Care Code 00219 SUB INP/OBS CARE 2/35MIN Diagnoses Acute blood loss anemia D62 Ascites R18.8 Epigastric pain R10.13 UTI (urinary tract infection) N39.0 Hyperammonemia E72.20 CKD (chronic kidney disease) N18.9 Symptomatic anemia D64.9 GAVE (gastric antral vascular ectasia) K31.819 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 K75.81; K74.60 Hypothyroidism E03.9 Tachycardia R00.0 Prostatism N40.0
[2022-10-03] MEDS: PARoxetine HCL 10 MG TAB PO SCH (22:17)
[2022-10-04] MEDS: LACTULOSE SYRUP 20 GM/30 ML UDC PO SCH ×5 (00:27→23:33)
[2022-10-04] MEDS: SUCRALFATE 1 GM/10 ML UDC PO SCH ×4 (08:15→20:33)
[2022-10-04] MEDS: MIDODRINE HCL 10 MG TAB PO SCH ×3 (08:31→17:19)
[2022-10-04] MEDS: NITROFURANTOIN MONOHYDRATE 100 MG CAP PO SCH ×2 (08:31→20:32)
[2022-10-04] MEDS: PANTOprazole 40 MG TAB PO SCH ×2 (08:31→20:33)
[2022-10-04] MEDS: rifAXIMin 550 MG TABLET PO SCH ×2 (08:31→20:34)
[2022-10-04] MEDS: METOPROLOL TARTRATE 25 MG TAB PO SCH ×2 (08:32→20:30)
--- NOTE | 2022-10-04 15:20 | Hospitalist Progress Note ---
Date of Service October 04, 2022 Assessment & Plan (1) Acute blood loss anemia: Plan: history of GAVE and esophageal varices. Suspect upper GI bleeding source. Continue Protonix PPI therapy. Admitted with maroon color stool and Hb of 6.9. s/p transfusion of 2u prbcs total. Hemoglobin now stable. Appreciate GI consult and recommendations. No need for repeat endoscopy. Most recent was push enteroscopy on 09/02 (2) Ascites: Plan: From SERRANO liver cirrhosis. No current need for paracentesis. (3) Epigastric pain: Plan: CT abdomen and pelvis did not show any evidence of bowel obstruction or pneumoperitoneum but shows findings consistent with venous hypertension, splenomegaly, and ascites. Resolved (4) UTI (urinary tract infection): Plan: Enterococcus faecium isolated. Treated while hospitalized with Rocephin and vancomycin. Switched to oral Macrodantin for several more days. Will probably discontinue Macrodantin tomorrow, October 05 (5) Hyperammonemia: Plan: No significant hepatic encephalopathy. Now on PO lactulose. (6) CKD (chronic kidney disease): Plan: Monitor intake and output. Serial labs . Stage III (7) Symptomatic anemia: Plan: s/p transfusion of 2 units pRBC on admission. Hemoglobin is now stable. (8) GAVE (gastric antral vascular ectasia): Plan: Continue PPI therapy indefinitely (9) 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: Plan: Continue lactulose and rifaximin (10) Hypothyroidism: Plan: Stable. Continue thyroid replacement therapy (11) Tachycardia: Plan: Resolved after addition of metoprolol. He is now actually mildly bradycardic. Metoprolol dosage down titrated on October 02 (12) Prostatism: Plan: Chronic. Unfortunately he cannot be started on Flomax due to his low blood pressure status Plan Hopeful discharge to [place] [facility] tomorrow, October 05 Admission and Anticipated Discharge Date Admission Date: September 23, 2022 Subjective Alert and oriented. No complaints. He was able to ambulate in the hallway with physical therapy today. Will probably discontinue Macrobid tomorrow which she is taking for his UTI. Blood pressure remains low despite midodrine but heart rate is much improved on low-dose metoprolol. Overall, he is stable and ready to go to [facility] Review of Systems Review of Systems: Constitutional-no fever or chills ENT-no blurred vision, no double vision, no epistaxis, no sore throat Respiratory-no cough, no wheezing, no shortness of breath Cardiac-no palpitations, no chest pain, no syncope GI-no nausea, vomiting, diarrhea, melena, hematochezia -no urinary retention, no urinary incontinence, no dysuria, no hematuria Musculoskeletal-no joint pain, no muscle tenderness Skin-no bruising, no rashes, no pruritus Neuro-no isolated weakness, no paresthesia, no weakness Psych-no depression, no anxiety Physical Exam Physical Exam: General-alert and oriented x3, no fevers, no chills HEENT-head atraumatic and normocephalic, pupils equal and reactive to light, extraocular muscles intact Neck-no lymphadenopathy or thyromegaly, trachea midline Chest-clear to auscultation percussion. No rales wheezing or rhonchi Cardiac-bradycardic irregular rhythm. Normal S1 and S2 Abdomen-normal bowel sounds, nontender, no hepatosplenomegaly Extremities-no cyanosis, clubbing, or edema Neuro-cranial nerves II through XII intact, motor and sensory function within normal limits, strength symmetrical , no focal deficits Psych-normal affect, normal mood Results & Data Results & Data Vital Signs (Past 12 Hours) Vital Signs Temp Pulse Pulse Resp BP BP Pulse Ox 10/04/22 08:00 70 10/04/22 10:45 36.7 C 66 16 93/58 L 96 10/04/22 08:11 36.4 C L 78 16 89/53 L 97 O2 Del Method 10/04/22 08:00 10/04/22 10:45 Room Air 10/04/22 08:11 Room Air Laboratory Results 10/03/22 05:38 10/03/22 05:38 PG Care Time/CCT Total # of Minutes Spent Total Time Spent with Patient: Total time spent is greater than 50% in coordination of care (as documented) at patient's floor/unit and/or counseling patient: Coding Level of Care Code 54139 SUB INP/OBS CARE 2/35MIN Diagnoses Acute blood loss anemia D62 Ascites R18.8 Epigastric pain R10.13 UTI (urinary tract infection) N39.0 Hyperammonemia E72.20 CKD (chronic kidney disease) N18.9 Symptomatic anemia D64.9 GAVE (gastric antral vascular ectasia) K31.819 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 K75.81; K74.60 Hypothyroidism E03.9 Tachycardia R00.0 Prostatism N40.0
[2022-10-04] MEDS: PARoxetine HCL 10 MG TAB PO SCH (20:33)
[2022-10-05] MEDS: LACTULOSE SYRUP 20 GM/30 ML UDC PO SCH ×2 (06:18→11:42)
[2022-10-05 06:25] LABS: Basophils # (auto) 0.07 K/uL (0-0.2); Basophils % (auto) 1.6 %; Eosinophils # (auto) 0.24 K/uL (0-0.50); Eosinophils % (auto) 5.6 %; Hematocrit (blood only) 25.9 % (42.0-52.0); Hemoglobin 8.7 g/dl (14.0-18.0); Immature Granulocytes # (auto) 0.02 K/uL (0.01-0.20); Immature Granulocytes % (auto) 0.5 %; Lymphocytes # (auto) 0.87 K/uL (1.2-3.4); Lymphocytes % (auto) 20.3 %; Mean Corpuscular Hemoglobin 34.9 pg (25.0-34.0); Mean Corpuscular Hgb Conc 33.6 g/dL (32.0-36.0); Mean Platelet Volume 8.8 fL (9.4-12.4); Monocytes # (auto) 0.57 K/uL (0.11-0.59); Monocytes % (auto) 13.3 %; Neutrophils # (auto) 2.51 K/uL (1.40-6.50); Neutrophils % (auto) 58.7 %; Platelet Count 56 K/uL (130-400); RDW Coefficient of Variation 20.3 % (11.5-14.5); Red Blood Count 2.49 M/uL (4.70-6.10); White Blood Count 4.28 K/ul (4.8-10.8)
[2022-10-05 06:59] LABS: Anisocytosis Present
[2022-10-05 07:15] LABS: BUN Creatinine Ratio 16.4 (10-20); Calcium 9.3 mg/dl (8.6-10.3); Creatinine Clr Calc Pharmacy 40.8 ml/min; Est GFR (African American) 35.6 ml/min; Est GFR (Non-African American) 30.7 ml/min; Potassium 4.2 mmol/L (3.5-5.1)
[2022-10-05] MEDS: MIDODRINE HCL 10 MG TAB PO SCH ×2 (09:39→11:41)
[2022-10-05] MEDS: SUCRALFATE 1 GM/10 ML UDC PO SCH ×2 (09:39→11:42)
[2022-10-05] MEDS: METOPROLOL TARTRATE 25 MG TAB PO SCH (09:40)
[2022-10-05] MEDS: rifAXIMin 550 MG TABLET PO SCH (09:40)
[2022-10-05] MEDS: PANTOprazole 40 MG TAB PO SCH (09:40)
[2022-10-05] MEDS ORDERED: EPOETIN ALFA 40,000 UNITS/ML VIAL SC ONE (12:00)
--- NOTE | 2022-10-10 07:36 | Coding Query ---
CODING QUERY To promote full compliance with coding requirements relating to patient care, provider participation is requested in all cases of chief reservoir engineering uncertainty. Please assist us with the question(s) below: Coding Question(s): Pt with SERRANO/ Cirrhosis admitted with ABLA. Treated with transfusions. 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 DS states Upper GI bleed source. Pt with history of GAVE & bleeding esophageal varices. Please document, if known or suspected, the etiology of the GI bleed. Thanks for yoru help. Ganesh Roman [facility] Physician's Response(s): Principal Diagnosis: "that condition established after study, to be chiefly responsible for occasioning the admission of the patient to the hospital for care." Co-Existing Principal Diagnosis: "when two or more diagnoses equally meet the criteria for principal diagnosis as determined by the circumstances of admission, diagnostic work up, and/or therapy provided, and the Alphabetic Index, Tabular List, or another coding guideline does not provide sequencing direction, any one of the diagnoses may be sequenced first." "When the physician has documented what appears to be a current diagnosis in the body of the record, but has not included the diagnosis in the final diagnostic statement, the physician should be asked whether the diagnosis should be added." (Source [facility]oding [facility] 2 QTR90. p3-4) KELI
== END 2022-10-05 14:07 | DRG 432 ==
LOC: ED 12:12 → SUATTDRO 18:30 → 2E 18:30

== ENCOUNTER 2022-10-28 13:32 | Inpatient (IN) ==
--- NOTE | 2022-10-28 14:12 | Emergency Department Note ---
Impression & Plan SOB (shortness of breath), Ascites, Anemia, COLLIN (acute kidney injury), Elevated bilirubin, Edema ED Provider Note NAME: SHMUEL KNOTT AGE: 67 SEX: M : 1955 ARRIVES VIA: Ambulance INFORMANT: [Patient][ems] ED PROVIDER(S): [Edward Dela Cruz MD] CHIEF COMPLAINT: Illness HISTORY OF PRESENT ILLNESS: The patient is a 67-year-old male who presents to the ER for weakness, shortness of breath and swelling of his lower extremities. The patient has a history of cirrhosis. He was recently in our hospital for an upper GI bleed. [facility] and is now at home. He states that since leaving [facility], he has had increasing weakness but in the last 2 or 3 days, he has had a marked worsening of his condition. He now is very short of breath with exertion. He has lower abdominal pain. There has been some burning to urinate with some blood in his urine. He has felt very weak. He states that he actually fell today because of the weakness. He did not suffer any injury from the fall. He states his legs just gave out. Patient does not complain of a headache. There has been no increased cough. No fever. No chills. No diarrhea, no black stool. Of note, the patient was taken off of Lasix about a month ago. He wonders if this is why he has had so much edema. PMHx/PSHx: See Below SOCIAL HISTORY: See Below. PHYSICAL EXAM: GENERAL: Patient is in no acute distress. HEENT: No acute trauma, normocephalic atraumatic, mucous membranes moist, no nasal congestion. NECK: No stridor, no adenopathy, no meningismus, trachea is midline. LUNGS: Crackles at both bases, no respiratory distress, no wheeze HEART: Mildly tachycardic, regular rhythm, no murmurs. ABDOMEN: Soft, there is some abdominal distention noted. He is mildly diffusely tender. No peritonitis EXTREMITIES: No cyanosis. Moderate bilateral pedal edema. NEUROLOGIC: Oriented x 3, no acute motor or sensory deficits, no focal weakness. SKIN: No rash mild jaundice, no diaphoresis. Groin: No scrotal rash or penile erythema. DIFFERENTIAL DIAGNOSIS: Anemia, electrolyte imbalance, renal or liver failure, hyperammonemia, UTI, fluid overload, CHF, [place], among others. EMERGENCY DEPARTMENT COURSE/PROCEDURES: Prior/Outside records reviewed: Previous discharge summary. ECG per my interpretation: Indication was weakness. The ECG shows a sinus tachycardia with some PACs. The rate is 107. There is some diffuse nonspecific ST change. There is poor R wave progression and findings consistent with a potential anterior lateral infarct. There is no ST elevation. QTc is 480. Continuous Cardiac Monitoring per my interpretation: An order was placed for continuous cardiac monitoring. The monitor shows a rate of 110 with sinus tachycardia. MEDICAL DECISION MAKING: There is no leukocytosis. The patient is anemic however, he has a history of anemia and his value today is at baseline. There is a lower platelet count, this is chronic for the patient. INR was elevated at 1.6. PTT was elevated. These elevations are likely from his liver disease. The patient did have a low sodium at 131. There was some acute kidney injury with a creatinine of 3.02. Lactic acid level was elevated consistent with dehydration, possibly sepsis. The patient's bilirubin was quite high at 4.8, this is above his typical baseline. Ammonia level was not elevated. TSH was high, the T4 though was normal. BNP was not elevated making CHF less likely. ECG shows sinus tachycardia, no ischemia. Cardiac enzyme testing x1 is not consistent with acute cardiac injury. Urinalysis showed some contamination, no infection. COVID test returned negative. Chest film per my review did not show CHF, pneumonia or pneumothorax. Abdominal and pelvis CT shows ascites, there was no bowel obstruction. No urinary obstruction. No acute surgical process by CT imaging. Chronic CT findings were seen. On exam, the patient appeared fluid overloaded. He was jaundiced. Patient received IV Lasix. He has diuresed. The patient is in need of a hospital stay. He is in worsening liver failure, he has some acute kidney injury. He is quite fluid overloaded. I spoke with the patient, I spoke with case management, the on-call hospitalist was consulted. DISPOSITION: Patient's presentation and findings warrant a hospital stay. Past Med/Surg History Medical History Anemia Ascites Calculus of kidney Cervical disc disease CKD (chronic kidney disease), stage III Depression Esophageal varices determined by endoscopy GAVE (gastric antral vascular ectasia) Per records GERD (gastroesophageal reflux disease) History of GI bleed discharged from [facility] 06/10/22: borderline hemorrhagic shock-upper GI bleed suspected to be d/t GAVE-received 1 unit of PRBC History of herniated intervertebral disc lumbar area History of SCC (squamous cell carcinoma) of skin S/p removal- follows with derm Hx of blood clots 06/2021 @ [facility]- pt reports blood clot in left arm around IV site after being discharged from hospital- no meds due to current blood loss issue- warm compresses to site per pt- 2 ultrasounds done - no current issues Hx of upper gastrointestinal hemorrhage recent hospitalization at [facility] 06/07/2022 Hyperkalemia Hypothyroidism 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 current work-up for planned liver transplant per [facility] transplant clinic recor ds Lumbar disc disease Oral mucositis On mouthwash daily- no recent issues Pancytopenia Portal hypertensive gastropathy Post-traumatic urethral stricture Psoriasis Psoriatic arthritis PVT (portal vein thrombosis) denies Spinal stenosis EPIDURAL INJECTIONS IN PAST FOR PAIN RELIEF TMJ arthralgia Urinary retention Urinary tract infection Wide-complex tachycardia ON CARDVEDILOL-F/U DR VANESSA LAST VISIT<1 YR AGO Surgical History H/O foot surgery excision of neuroma b/l feet History of appendectomy History of arthroscopy RT KNEE History of cataract surgery RT/LEFT History of cholecystectomy History of esophagogastroduodenoscopy (EGD) last 03/21/22 @ [facility] 02/08/22 Dr. Sara Cloud- EGD- Grade I esophageal varices, Portal hypertensive gastropathy History of herniorrhaphy right inguinal History of lithotripsy History of liver biopsy History of repair of rotator cuff RT/LEFT History of tooth extraction History of urologic surgery Urethral reconstruction 4 years ago at [facility] Nausea and vomiting after administration of anesthetic agent S/P colonoscopy S/P epidural steroid injection S/P orchiectomy Right age 9 for UDT S/P urological surgery (2018) BM[facility] urethroplasty-[facility] [place] Suprapubic catheter AND REMOVAL Family History Grandmother (Maternal) Diabetes Father Renal cancer Mother Aortic aneurysm Denies family history of Ovarian cancer Prostate cancer Myocardial infarction Breast cancer Colorectal cancer Social History Smoking Status: Never smoker Second Hand Exposure: No; Do You Dip or Chew Tobacco: No; Hx Alcohol Use: No Hx Substance Use: No Preferred Language: Finnish Communication Ability: Effective Visual Impairment: No Limitations Hearing Ability: Hard of Hearing 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 Beliefs That Will Affect Care: None marital status: / Current Living Situation: Family Current Living Situation Comment: lives with son current occupational status: retired How many Children do You have: 1 Other Information That Helps Us Care for You: No Feels Safe at Home: Yes Safety Concerns: Feels Safe At This Time Diet: low salt Diet Comment: LOW SALT caffeine: Yes during the past year weight has: remained stable Dental Care, Regularly: No Physical Activity Frequency: Other Physical Activity Frequency Comment: does all housework/outside work and cuts wood Seatbelt Use: never Sunscreen Use: No Assistive Devices: Cane, Glasses, Walker and Wheelchair Allergies Allergies Allergy/AdvReac Type Severity Reaction Status Date / Time tamsulosin Allergy Intermediate HIVES Verified 10/28/22 17:07 etanercept [From Enbrel] AdvReac Intermediate Increased Verified 10/28/22 17:07 infections Home Meds Home Medications Medication Instructions Recorded Confirmed paroxetine HCl 10 mg tablet 10 mg PO HS 09/23/22 10/28/22 acetaminophen 325 mg tablet 650 mg PO QID PRN Fever Or Pain 10/18/22 10/28/22 (Tylenol) cholecalciferol (vitamin D3) 50 2,000 unit PO QAM 10/28/22 10/28/22 mcg (2,000 unit) capsule (Vitamin D3) fludrocortisone 0.1 mg tablet 0.1 mg PO BID 10/28/22 10/28/22 sucralfate 100 mg/mL oral 10 ml PO BID 10/28/22 10/28/22 suspension Previous Rx's Medication Instructions Recorded ondansetron HCl 4 mg tablet 4 mg PO Q8H PRN Nausea And 08/08/22 Vomiting #30 tabs lactulose 10 gram/15 mL oral 20 g (30 mL) PO DAILY #946 mL 08/10/22 solution furosemide 20 mg tablet 20 mg PO DAILY PRN edema #14 tabs 09/07/22 midodrine 10 mg tablet 15 mg PO TID #135 tabs 09/14/22 Walker #1 ea 09/21/22 pantoprazole 40 mg tablet,delayed 40 mg PO BID #60 tabs 09/27/22 release rifaximin 550 mg tablet (Xifaxan) 550 mg PO BID #60 tabs 09/27/22 metoprolol tartrate 25 mg tablet 12.5 mg PO BID #0 tabs 10/03/22 Results & Data (ED) Vital Signs Vital Signs - 24 hr 10/28/22 13:41 10/28/22 13:41 10/28/22 14:12 Temperature 36.6 C Temperature Source Oral Pulse Rate 110 H Pulse Rate from SpO2 Sensor Respiratory Rate 18 Blood Pressure 103/73 Blood Pressure Mean 83 Pulse Oximetry 97 Oxygen Delivery Method Room Air Room Air Room Air Sepsis Recent Fever Within 48 Hours No Sepsis New/Unexplained Change in Mental Status No Sepsis Action Taken by Nursing No Action Required 10/28/22 15:34 10/28/22 15:17 10/28/22 15:30 Temperature Temperature Source Pulse Rate 108 H 108 H 110 H Pulse Rate from SpO2 Sensor 108 H 110 H Respiratory Rate 16 25 H Blood Pressure Blood Pressure Mean Pulse Oximetry 97 98 Oxygen Delivery Method Sepsis Recent Fever Within 48 Hours Sepsis New/Unexplained Change in Mental Status Sepsis Action Taken by Nursing 10/28/22 16:00 Temperature Temperature Source Pulse Rate 108 H Pulse Rate from SpO2 Sensor 105 H Respiratory Rate 16 Blood Pressure Blood Pressure Mean Pulse Oximetry 99 Oxygen Delivery Method Sepsis Recent Fever Within 48 Hours Sepsis New/Unexplained Change in Mental Status Sepsis Action Taken by Shelter Medications Current Medication List: was personally reviewed by me Laboratory Data Attestation: I reviewed the patient's lab results. 10/28/22 14:28 10/28/22 14:28 Lab Results 10/28/22 10/28/22 10/28/22 Range/Units 14:28 14:28 14:28 WBC 8.95 (4.8-10.8) K/ul RBC 2.59 L (4.70-6.10) M/uL Hgb 9.1 L (14.0-18.0) g/dl Hct 27.7 L (42.0-52.0) % MCV 106.9 H (80.0-100.0) fL MCH 35.1 H (25.0-34.0) pg MCHC 32.9 (32.0-36.0) g/dL RDW Std Deviation 83.6 H (36.4-46.3) fL RDW Coeff of Miguel 21.2 H (11.5-14.5) % Plt Count 72 L (130-400) K/uL MPV 9.7 (9.4-12.4) fL Immature Gran % (Auto) 0.7 % Neut % (Auto) 78.4 % Lymph % (Auto) 7.7 % [place] % (Auto) 8.8 % Eos % (Auto) 3.6 % Baso % (Auto) 0.8 % Neut # (Auto) 7.02 H (1.40-6.50) K/uL Lymph # (Auto) 0.69 L (1.20-3.40) K/uL [place] # (Auto) 0.79 H (0.11-0.59) K/uL Eos # (Auto) 0.32 (0.00-0.50) K/uL Baso # (Auto) 0.07 (0.00-0.20) K/uL Immature Gran # (Auto) 0.06 (0.01-0.20) K/uL Polychromasia 1+ Anisocytosis Present PT 16.8 H (9.0-12.0) Seconds INR 1.6 H (0.9-1.1) APTT 35.9 H (21.0-31.0) Seconds PTT Ratio 1.3 Sodium 131 L (136-145) mmol/L Potassium 3.7 (3.5-5.1) mmol/L Chloride 105 (98-107) mmol/L Carbon Dioxide 21 (21-32) mmol/L Anion Gap 5 (3-11) BUN 32 H (6-23) mg/dl Creatinine 3.02 H (0.6-1.4) mg/dl Est Cr Clr Drug Dosing 29.8 ml/min Est GFR ( Amer) 23.5 ml/min Est GFR (Non-Af Amer) 20.2 ml/min BUN/Creatinine Ratio 10.6 (10-20) Glucose 162 H (70-99(Fasting)) mg/dl Lactate (0.4-2.0) mmol/L Calcium 9.7 (8.6-10.3) mg/dl Magnesium 1.9 (1.7-2.4) mg/dl Total Bilirubin 4.8 H (0.2-1.0) mg/dl AST 54 H (13-39) U/L ALT 35 (7-52) U/L Alkaline Phosphatase 187 H (34-104) U/L Ammonia (18-72) umol/L Troponin I High Sens 8.6 (0-20) pg/ml B-Natriuretic Peptide (0-100) pg/ml Total Protein 5.3 L (6.0-8.3) gm/dl Albumin 1.9 L (3.4-5.0) gm/dl Globulin 3.4 (2.5-4.0) gm/dl Albumin/Globulin Ratio 0.6 L (0.9-2) TSH (0.300-4.500) uIu/ml Free T4 (0.61-1.60) ng/dl SARS-CoV-2, RNA, NAAT (NEGATIVE) 10/28/22 10/28/22 10/28/22 Range/Units 14:28 14:28 14:28 WBC (4.8-10.8) K/ul RBC (4.70-6.10) M/uL Hgb (14.0-18.0) g/dl Hct (42.0-52.0) % MCV (80.0-100.0) fL MCH (25.0-34.0) pg MCHC (32.0-36.0) g/dL RDW Std Deviation (36.4-46.3) fL RDW Coeff of Miguel (11.5-14.5) % Plt Count (130-400) K/uL MPV (9.4-12.4) fL Immature Gran % (Auto) % Neut % (Auto) % Lymph % (Auto) % [place] % (Auto) % Eos % (Auto) % Baso % (Auto) % Neut # (Auto) (1.40-6.50) K/uL Lymph # (Auto) (1.20-3.40) K/uL [place] # (Auto) (0.11-0.59) K/uL Eos # (Auto) (0.00-0.50) K/uL Baso # (Auto) (0.00-0.20) K/uL Immature Gran # (Auto) (0.01-0.20) K/uL Polychromasia Anisocytosis PT (9.0-12.0) Seconds INR (0.9-1.1) APTT (21.0-31.0) Seconds PTT Ratio Sodium (136-145) mmol/L Potassium (3.5-5.1) mmol/L Chloride (98-107) mmol/L Carbon Dioxide (21-32) mmol/L Anion Gap (3-11) BUN (6-23) mg/dl Creatinine (0.6-1.4) mg/dl Est Cr Clr Drug Dosing ml/min Est GFR ( Amer) ml/min Est GFR (Non-Af Amer) ml/min BUN/Creatinine Ratio (10-20) Glucose (70-99(Fasting)) mg/dl Lactate (0.4-2.0) mmol/L Calcium (8.6-10.3) mg/dl Magnesium (1.7-2.4) mg/dl Total Bilirubin (0.2-1.0) mg/dl AST (13-39) U/L ALT (7-52) U/L Alkaline Phosphatase (34-104) U/L Ammonia 33.0 (18-72) umol/L Troponin I High Sens (0-20) pg/ml B-Natriuretic Peptide 30 (0-100) pg/ml Total Protein (6.0-8.3) gm/dl Albumin (3.4-5.0) gm/dl Globulin (2.5-4.0) gm/dl Albumin/Globulin Ratio (0.9-2) TSH 14.566 H (0.300-4.500) uIu/ml Free T4 0.76 (0.61-1.60) ng/dl SARS-CoV-2, RNA, NAAT (NEGATIVE) 10/28/22 10/28/22 10/28/22 Range/Units 14:28 14:28 14:34 WBC (4.8-10.8) K/ul RBC (4.70-6.10) M/uL Hgb (14.0-18.0) g/dl Hct (42.0-52.0) % MCV (80.0-100.0) fL MCH (25.0-34.0) pg MCHC (32.0-36.0) g/dL RDW Std Deviation (36.4-46.3) fL RDW Coeff of Miguel (11.5-14.5) % Plt Count (130-400) K/uL MPV (9.4-12.4) fL Immature Gran % (Auto) % Neut % (Auto) % Lymph % (Auto) % [place] % (Auto) % Eos % (Auto) % Baso % (Auto) % Neut # (Auto) (1.40-6.50) K/uL Lymph # (Auto) (1.20-3.40) K/uL [place] # (Auto) (0.11-0.59) K/uL Eos # (Auto) (0.00-0.50) K/uL Baso # (Auto) (0.00-0.20) K/uL Immature Gran # (Auto) (0.01-0.20) K/uL Polychromasia Anisocytosis PT (9.0-12.0) Seconds INR (0.9-1.1) APTT (21.0-31.0) Seconds PTT Ratio Sodium (136-145) mmol/L Potassium (3.5-5.1) mmol/L Chloride (98-107) mmol/L Carbon Dioxide (21-32) mmol/L Anion Gap (3-11) BUN (6-23) mg/dl Creatinine (0.6-1.4) mg/dl Est Cr Clr Drug Dosing ml/min Est GFR ( Amer) ml/min Est GFR (Non-Af Amer) ml/min BUN/Creatinine Ratio (10-20) Glucose (70-99(Fasting)) mg/dl Lactate 2.6 H* 2.4 H* (0.4-2.0) mmol/L Calcium (8.6-10.3) mg/dl Magnesium (1.7-2.4) mg/dl Total Bilirubin (0.2-1.0) mg/dl AST (13-39) U/L ALT (7-52) U/L Alkaline Phosphatase (34-104) U/L Ammonia (18-72) umol/L Troponin I High Sens (0-20) pg/ml B-Natriuretic Peptide (0-100) pg/ml Total Protein (6.0-8.3) gm/dl Albumin (3.4-5.0) gm/dl Globulin (2.5-4.0) gm/dl Albumin/Globulin Ratio (0.9-2) TSH (0.300-4.500) uIu/ml Free T4 (0.61-1.60) ng/dl SARS-CoV-2, RNA, NAAT NEGATIVE (NEGATIVE) Administered Medications Metoprolol Tartrate (Metoprolol Tartrate 25 Mg Tab) 12.5 mg PO BID LUZ Stop: 11/27/22 20:59 Last Admin: 10/28/22 21:03 Dose: 12.5 mg Documented By: SALEEM Pantoprazole Sodium (Pantoprazole 40 Mg Tab) 40 mg PO BID LUZ Stop: 11/27/22 20:59 Last Admin: 10/28/22 21:04 Dose: 40 mg Documented By: SALEEM Paroxetine HCl (Paroxetine Hcl 10 Mg Tab) 10 mg PO HS LUZ Stop: 11/27/22 20:59 Last Admin: 10/28/22 21:04 Dose: 10 mg Documented By: SALEEM Rifaximin (Rifaximin 550 Mg Tablet) 550 mg PO BID LUZ Stop: 11/27/22 20:59 Last Admin: 10/28/22 21:04 Dose: 550 mg Documented By: SALEEM Sucralfate (Sucralfate 1 Gm/10 Ml Udc) 1 gm PO BID LUZ Stop: 11/27/22 20:59 Last Admin: 10/28/22 21:02 Dose: 1 gm Documented By: SALEEM Discontinued Medications Furosemide (Furosemide 40 Mg/4 Ml Vial) 40 mg IV ONE ONE Stop: 10/28/22 15:21 Last Admin: 10/28/22 15:28 Dose: 40 mg Documented By: [facility] Imaging Data Radiologist's Impression: Chest X-Ray 10/28/22 14:05 XR chest 1V portable HISTORY: weakness COMPARISON: Chest 10/13/2022. FINDINGS: There are low lung volumes. No pneumothorax. No pleural effusions. The cardiac status mildly enlarged. There are few bibasilar linear densities consistent with subsegmental atelectasis or scarring. This is similar to the prior study. The upper lung zones are clear. No evidence for pulmonary edema. Calcified plaque within the aortic knob again noted. There are surgical clips within the upper abdomen. IMPRESSION: No significant change compared to the prior study. No acute process. ACT 112: Negative or not required by law. Electronically signed by: Joaquín Bolden M.D. 10/28/2022 3:34 PM Abdomen/Pelvis CT 10/28/22 15:[address] WITHOUT CONTRAST CT DOSE: 1525.59 mGy.cm HISTORY: Abdominal distention. TECHNIQUE: Multiaxial CT images of the abdomen and pelvis were performed without contrast. A dose lowering technique was utilized adhering to the principles of ALARA. COMPARISON STUDY: Abdomen and pelvis CT 09/26/2022. FINDINGS: Cardiomegaly with decreased attenuation of the cardiac blood pool suggestive of anemia. Coronary artery calcifications. The lung bases are clear. Gynecomastia. No pneumatosis or pneumoperitoneum. Mild splenomegaly with abdominal varicosities. Cirrhosis with moderate abdominal pelvic ascites, which is similar to mildly progressed. Cholecystectomy. Unremarkable, moderately atrophic pancreas and adrenal glands. Partially calcified atrophic portal vein is again noted. This suggests chronic thrombus. Cortical thinning of the kidneys. There are a few scattered nonobstructing calculi again noted within the bilateral kidneys measuring up to 5 mm on the left and 4 mm on the right. Probable cyst of the superior pole of the right kidney, 10 mm. No ureteral calculi or hydronephrosis. Prostatomegaly. Urinary bladder wall thickening with partial distention. No abdominal aortic aneurysm. Unchanged gastric-wall thickening. No bowel obstruction. Decreased fecal retention. Nonspecific wall thickening of the ascending colon and hepatic flexure is again noted. Appendectomy. Unremarkable soft tissues. Moderate body wall edema which has progressed. No acute fracture. IMPRESSION: 1. No bowel obstruction. 2. Moderate body wall edema with moderate ascites. This is slightly progressed in the interval. Otherwise, no significant change compared to the prior study. 3. Cirrhosis with stigmata of portal venous hypertension including splenomegaly with ascites, and abdominal pelvic varicosities. 4. Bilateral nephrolithiasis. 5. Gastric wall thickening is again noted suggestive of a nonspecific gastritis. 6. Wall thickening of the ascending colon and hepatic flexure again noted which may represent a nonspecific colitis versus portal colopathy. 7. 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 8. Additional findings as above. ACT 112: Negative or not required by law. Electronically signed by: Joaquín Bolden M.D. 10/28/2022 4:55 PM Discharge Plan Visit Data Chief Complaint: Illness Stated Complaint: EDEMA, SOB ED Provider: Edward Dela Cruz Discharge Problem: SOB (shortness of breath), Ascites, Anemia, COLLIN (acute kidney injury), Elevated bilirubin, Edema Patient Disposition: Admitted As Inpatient Condition: Fair Discharge Instructions Interventions: ED Discharge Assessment Last Done: 10/28/22 18:31
[2022-10-28 15:11] LABS: Albumin Level 1.9 gm/dl (3.4-5.0); Bilirubin,Total 4.8 mg/dl (0.2-1.0); Calcium 9.7 mg/dl (8.6-10.3); Magnesium 1.9 mg/dl (1.7-2.4); Potassium 3.7 mmol/L (3.5-5.1)
[2022-10-28 15:17] LABS: Albumin Globulin Ratio 0.6 (0.9-2); BUN Creatinine Ratio 10.6 (10-20); Creatinine Clr Calc Pharmacy 29.8 ml/min; Est GFR (African American) 23.5 ml/min; Est GFR (Non-African American) 20.2 ml/min; Globulin 3.4 gm/dl (2.5-4.0); Total Protein 5.3 gm/dl (6.0-8.3)
[2022-10-28 15:19] LABS: Troponin I High Sensitivity 8.6 pg/ml (0-20)
[2022-10-28] MEDS ORDERED: FUROSEMIDE 40 MG/4 ML VIAL IV ONE (15:20)
[2022-10-28 15:28] LABS: Thyroid Stimulating Hormone 14.566 uIu/ml (0.300-4.500)
[2022-10-28 15:31] LABS: Basophils # (auto) 0.07 K/uL (0.00-0.20); Basophils % (auto) 0.8 %; Eosinophils # (auto) 0.32 K/uL (0.00-0.50); Eosinophils % (auto) 3.6 %; Hematocrit (blood only) 27.7 % (42.0-52.0); Hemoglobin 9.1 g/dl (14.0-18.0); Immature Granulocytes # (auto) 0.06 K/uL (0.01-0.20); Immature Granulocytes % (auto) 0.7 %; Lymphocytes # (auto) 0.69 K/uL (1.20-3.40); Lymphocytes % (auto) 7.7 %; Mean Corpuscular Hemoglobin 35.1 pg (25.0-34.0); Mean Corpuscular Hgb Conc 32.9 g/dL (32.0-36.0); Mean Corpuscular Volume 106.9 fL (80.0-100.0); Mean Platelet Volume 9.7 fL (9.4-12.4); Monocytes # (auto) 0.79 K/uL (0.11-0.59); Monocytes % (auto) 8.8 %; Neutrophils # (auto) 7.02 K/uL (1.40-6.50); Neutrophils % (auto) 78.4 %; Platelet Count 72 K/uL (130-400); RDW Coefficient of Variation 21.2 % (11.5-14.5); RDW Standard Deviation 83.6 fL (36.4-46.3); Red Blood Count 2.59 M/uL (4.70-6.10); White Blood Count 8.95 K/ul (4.8-10.8)
--- NOTE | 2022-10-28 15:36 | XRay Report ---
XR chest 1V portable HISTORY: weakness COMPARISON: Chest 10/13/2022. FINDINGS: There are low lung volumes. No pneumothorax. No pleural effusions. The cardiac status mildl y enlarged. There are few bibasilar linear densities consistent with subsegmental atelectasis or scar ring. This is similar to the prior study. The upper lung zones are clear. No evidence for pulmonary e rain. Calcified plaque within the aortic knob again noted. There are surgical clips within the upper abdomen. IMPRESSION: No significant change compared to the prior study. No acute process. ACT 112: Negative or not required by law. Electronically signed by: Joaquín Bolden M.D. 10/28/2022 3:34 PM
[2022-10-28 15:53] LABS: INR 1.6 (0.9-1.1); Partial Thromboplastin Ratio 1.3; Partial Thromboplastin Time 35.9 Seconds (21.0-31.0); Prothrombin Time 16.8 Seconds (9.0-12.0)
[2022-10-28 15:56] LABS: Anisocytosis Present; Polychromasia 1+
[2022-10-28 15:59] LABS: T4 Free Thyroxine 0.76 ng/dl (0.61-1.60)
--- NOTE | 2022-10-28 16:57 | CT Scan Report ---
ABDOMEN AND PELVIS CT WITHOUT CONTRAST CT DOSE: 1525.59 mGy.cm HISTORY: Abdominal distention. TECHNIQUE: Multiaxial CT images of the abdomen and pelvis were performed without contrast. A dose lo wering technique was utilized adhering to the principles of ALARA. COMPARISON STUDY: Abdomen and pelvis CT 09/26/2022. FINDINGS: Cardiomegaly with decreased attenuation of the cardiac blood pool suggestive of anemia. Cor onary artery calcifications. The lung bases are clear. Gynecomastia. No pneumatosis or pneumoperitone um. Mild splenomegaly with abdominal varicosities. Cirrhosis with moderate abdominal pelvic ascites, which is similar to mildly progressed. Cholecystectomy. Unremarkable, moderately atrophic pancreas an d adrenal glands. Partially calcified atrophic portal vein is again noted. This suggests chronic thro mbus. Cortical thinning of the kidneys. There are a few scattered nonobstructing calculi again noted within the bilateral kidneys measuring up to 5 mm on the left and 4 mm on the right. Probable cyst of the s uperior pole of the right kidney, 10 mm. No ureteral calculi or hydronephrosis. Prostatomegaly. Urina ry bladder wall thickening with partial distention. No abdominal aortic aneurysm. Unchanged gastric-wall thickening. No bowel obstruction. Decreased fecal retention. Nonspecific wall thickening of the ascending colon and hepatic flexure is again noted. Appendectomy. Unremarkable soft tissues. Moderate body wall edema which has progressed. No acute fracture. IMPRESSION: 1. No bowel obstruction. 2. Moderate body wall edema with moderate ascites. This is slightly progressed in the interval. Other ford, no significant change compared to the prior study. 3. Cirrhosis with stigmata of portal venous hypertension including splenomegaly with ascites, and abd ominal pelvic varicosities. 4. Bilateral nephrolithiasis. 5. Gastric wall thickening is again noted suggestive of a nonspecific gastritis. 6. Wall thickening of the ascending colon and hepatic flexure again noted which may represent a nonsp ecific colitis versus portal colopathy. 7. 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 8. Additional findings as above. ACT 112: Negative or not required by law. Electronically signed by: Joaquín Bolden M.D. 10/28/2022 4:55 PM
--- NOTE | 2022-10-28 17:33 | History & Physical Report ---
Date of Service October 28, 2022 Assessment & Plan (1) Weakness: Plan: Weakness, fluid retention 2/2 cirrhosis. No evidence of acute CHF Previously on Lasix, this was discontinued with low blood pressures previously Patient pursuing transplant list placement as an outpatient No hypoxia CT-A/P: 1. No bowel obstruction.2. Moderate body wall edema with moderate ascites. This is slightly progressed in the interval. Otherwise, no significant change compared to the prior study.3. Cirrhosis with stigmata of portal venous hypertension including splenomegaly with ascites, and abdominal pelvic varicosities.4. Bilateral nephrolithiasis.5. Gastric wall thickening is again noted suggestive of a nonspecific gastritis.6. Wall thickening of the ascending colon and hepatic flexure again noted which may represent a nonspecific colitis versus portal colopathy.7. Probable chronic thrombus of the portal vein.8. Additional findings as above. CXR: No acute findings. No pulmonary edema Suspect weakness and fluid retention due to cirrhosis Resume Lasix 40 mg daily, ideally would also resume spironolactone to minimize ascites however BP will not tolerate this currently. Continue midodrine 10 mg 3 times daily Continue lactulose Continue rifaximin Ammonia 33 on admission, normal Free T4 normal on admission Lactate 2.6, downtrending to 2.4 after Lasix. Defer trend unless clinical change Creatinine baseline around 2.12.8. Acutely elevated 3.02 Albumin 1.9, with third spacing. Suspect loss of oncotic pressure and third spacing with intravascular depletion. Lasix BID with albumin 1 hr prior - PT/OT Recent GI bleed Last hospitalization with GI bleed requiring PPI, octreotide. Stabilized and was able to be discharged Hemoglobin last 8.4 on discharge, this is uptrending to 9.1 No evidence of acute bleeding on admission Trend daily Macrocytic anemia Uptrending hemoglobin, no acute bleeding. Stable, trended daily GAVE Continue PPI Hypothyroidism Free T4 normal History of paroxysmal SVT Metoprolol continued. EKG on admission is sinus tachycardia with PACs, no ST segment/T wave changes DVT prophylaxis: Pharmacal prophylaxis deferred due to history of recurrent severe GI bleeds. SCDs Diet: Low-salt Disposition: PCU due to COLLIN, volume depletion, and history of SVT CODE STATUS: DNR/DNI (2) Cirrhosis of liver: (3) CKD (chronic kidney disease), stage III: (4) GERD (gastroesophageal reflux disease): (5) Esophageal varices determined by endoscopy: (6) 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: (7) Pancytopenia: (8) Portal hypertensive gastropathy: (9) PSVT (paroxysmal supraventricular tachycardia): History of Present Illness Primary Care Provider: Fiorella Castellano DO Sebastian Quiñonez is a 67-year-old male with past medical history of liver cirrhosis requiring multiple hospital admissions,, GAVE, recurrent GI bleeds, CKD, who presented to the ER with weakness, shortness of breath, lower extremity swelling after [facility] but after 2 to 3 days of returning home continued to have increasing leg swelling and fatigue and now has difficulty ambulating due to shortness of breath. No chest pain. Had a fall today due to weakness and came to the ER for reevaluation. He was previously on Lasix which has been discontinued last month Returned from [facility] 2 days ago MIld stomach discomfort, no pain. Denies GI bleeding Increasing weakness and fatigue. LEg cramps and stomach cramps last two days. NO chest pain or chest pressure. Easy fatigue and dyspnea worsening x2 days Lets ++ edema last few days Stomach cramps but no pain Was taken off lasix and spironolactone due to renal dysfunction last month per pt Has not had a paracentesis in the last 3 months. Feels the fluid in his belly is 'starting to get tighter'. LEgs are worse Took his morning medications Medical History: Reviewed Medications: Reviewed Surgical History: Reviewed Family history: Reviewed Allergies: Reviewed Social History: Reviewed Code Status: DNR/DNI Allergies Allergy/AdvReac Type Severity Reaction Status Date / Time tamsulosin Allergy Intermediate HIVES Verified 10/28/22 17:07 etanercept [From Enbrel] AdvReac Intermediate Increased Verified 10/28/22 17:07 infections Home Medications Medication Instructions Recorded Confirmed Type ondansetron HCl 4 mg tablet 4 mg PO Q8H PRN Nausea And 08/08/22 10/28/22 Rx Vomiting #30 tabs lactulose 10 gram/15 mL oral 20 g (30 mL) PO DAILY #946 mL 08/10/22 10/28/22 Rx solution furosemide 20 mg tablet 20 mg PO DAILY PRN edema #14 tabs 09/07/22 10/28/22 Rx midodrine 10 mg tablet 15 mg PO TID #135 tabs 09/14/22 10/28/22 Rx Walker #1 ea 09/21/22 Rx paroxetine HCl 10 mg tablet 10 mg PO HS 09/23/22 10/28/22 History pantoprazole 40 mg tablet,delayed 40 mg PO BID #60 tabs 09/27/22 10/28/22 Rx release rifaximin 550 mg tablet (Xifaxan) 550 mg PO BID #60 tabs 09/27/22 10/28/22 Rx metoprolol tartrate 25 mg tablet 12.5 mg PO BID #0 tabs 10/03/22 10/28/22 Rx acetaminophen 325 mg tablet 650 mg PO QID PRN Fever Or Pain 10/18/22 10/28/22 History (Tylenol) cholecalciferol (vitamin D3) 50 2,000 unit PO QAM 10/28/22 10/28/22 History mcg (2,000 unit) capsule (Vitamin D3) fludrocortisone 0.1 mg tablet 0.1 mg PO BID 10/28/22 10/28/22 History sucralfate 100 mg/mL oral 10 ml PO BID 10/28/22 10/28/22 History suspension Past Med/Surg History Medical History (Updated 10/28/22 @ 17:30 by Thaddeus Taylor MD) Anemia Ascites Calculus of kidney Cervical disc disease CKD (chronic kidney disease), stage III Depression Esophageal varices determined by endoscopy GAVE (gastric antral vascular ectasia) Per records GERD (gastroesophageal reflux disease) History of GI bleed discharged from [facility] 06/10/22: borderline hemorrhagic shock-upper GI bleed suspected to be d/t GAVE-received 1 unit of PRBC History of herniated intervertebral disc lumbar area History of SCC (squamous cell carcinoma) of skin S/p removal- follows with derm Hx of blood clots 06/2021 @ [facility]- pt reports blood clot in left arm around IV site after being discharged from hospital- no meds due to current blood loss issue- warm compresses to site per pt- 2 ultrasounds done - no current issues Hx of upper gastrointestinal hemorrhage recent hospitalization at [facility] 06/07/2022 Hyperkalemia Hypothyroidism 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 current work-up for planned liver transplant per [facility] transplant clinic records Lumbar disc disease Oral mucositis On mouthwash daily- no recent issues Pancytopenia Portal hypertensive gastropathy Post-traumatic urethral stricture Psoriasis Psoriatic arthritis PVT (portal vein thrombosis) denies Spinal stenosis EPIDURAL INJECTIONS IN PAST FOR PAIN RELIEF TMJ arthralgia Urinary retention Urinary tract infection Wide-complex tachycardia ON CARDVEDILOL-F/U DR VANESSA LAST VISIT<1 YR AGO Surgical History H/O foot surgery excision of neuroma b/l feet History of appendectomy History of arthroscopy RT KNEE History of cataract surgery RT/LEFT History of cholecystectomy History of esophagogastroduodenoscopy (EGD) last 03/21/22 @ [facility] 02/08/22 Dr. Sara Cloud- EGD- Grade I esophageal varices, Portal hypertensive gastropathy History of herniorrhaphy right inguinal History of lithotripsy History of liver biopsy History of repair of rotator cuff RT/LEFT History of tooth extraction History of urologic surgery Urethral reconstruction 4 years ago at [facility] Nausea and vomiting after administration of anesthetic agent S/P colonoscopy S/P epidural steroid injection S/P orchiectomy Right age 9 for UDT S/P urological surgery (2018) [place] urethroplasty[place] [place] Suprapubic catheter AND REMOVAL Family History Grandmother (Maternal) Diabetes Father Renal cancer Mother Aortic aneurysm Denies family history of Ovarian cancer Prostate cancer Myocardial infarction Breast cancer Colorectal cancer Social History Smoking Status: Never smoker Second Hand Exposure: No; Do You Dip or Chew Tobacco: No; Hx Alcohol Use: No Hx Substance Use: No Preferred Language: Spanish Communication Ability: Impaired Visual Impairment: No Limitations Hearing Ability: Hard of Hearing Manager Of Development Required: No Beliefs That Will Affect Care: None marital status: / Current Living Situation: Family Current Living Situation Comment: Lives with son current occupational status: retired How many Children do You have: 1 Feels Safe at Home: Yes Diet: low salt Diet Comment: LOW SALT caffeine: Yes during the past year weight has: remained stable Dental Care, Regularly: No Physical Activity Frequency: Other Physical Activity Frequency Comment: does all housework/outside work and cuts wood Seatbelt Use: never Sunscreen Use: No Assistive Devices: Walker Review of Systems Review of Systems: All systems reviewed & are unremarkable except as noted in HPI & below Physical Exam Physical Exam: General: A&Ox3. NAD. Cooperative. HEENT: Atraumatic, normocephalic. Pulm: CTAB A&P. -wheezes, -rales, -rhonchi. Symmetrical chest rise. No increased work of breathing. No respiratory distress. Cardiac: RRR, -mrg. Radial pulses intact and symmetrical. Abdominal: +softly distended. NT Ext: Diffuse pitting edema 4+ bilaterally Results & Data Results & Data Vital Signs (Past 12 Hours) Vital Signs Temp Pulse Resp BP Pulse Ox O2 Del Method 10/28/22 16:00 108 H 16 99 10/28/22 15:30 110 H 25 H 98 10/28/22 15:17 108 H 16 97 10/28/22 15:34 108 H 10/28/22 14:12 Room Air 10/28/22 13:41 Room Air 10/28/22 13:41 36.6 C 110 H 18 103/73 97 Room Air PG Care Time/CCT Total # of Minutes Spent Total Time Spent with Patient: Total time spent is greater than 50% in coordination of care (as documented) at patient's floor/unit and/or counseling patient: Coding Level of Care Code 90877 INT INP/OBS CARE 375MIN Diagnoses Weakness R53.1 Cirrhosis of liver K70.30 Ascites presence: unspecified Hepatic cirrhosis type: alcoholic cirrhosis CKD (chronic kidney disease), stage III N18.3 GERD (gastroesophageal reflux disease) K21.9 Esophageal varices determined by endoscopy I85.00 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 K75.81; K74.60 Pancytopenia D61.818 Portal hypertensive gastropathy K76.6; K31.89 PSVT (paroxysmal supraventricular tachycardia) I47.1 (2) Cirrhosis of liver Ascites presence: unspecified Hepatic cirrhosis type: alcoholic cirrhosis Qualified Code(s): K70.30 - Alcoholic cirrhosis of liver without ascites
[2022-10-28 19:23] LABS: Appearance Urine Clear (Clear); Bacteria Urine Automated Negative (Negative); Bilirubin Urine Negative (Negative); Blood Urine Trace (Negative); Color Urine Yellow; Epithelial Cell Urine Auto 20-30 /lpf (0-5); Glucose Urine UA Negative (Negative); Ketones Urine Negative (Negative); Leukocyte Esterase Urine 2+ (Negative); Nitrite Urine Negative (Negative); Protein Urine Negative (Negative); RBC Urine Automated 0-4 /hpf (0-4); Specific Gravity Urine 1.007 (1.000-1.030); Urobilinogen Urine Negative (Negative)
[2022-10-28] MEDS ORDERED: ACETAMINOPHEN 325 MG TAB PO PRN (20:07)
[2022-10-28] MEDS ORDERED: ONDANSETRON INJ 2 MG/ML 2 ML VIAL IV PRN (20:07)
[2022-10-28] MEDS ORDERED: FUROSEMIDE 20 MG TAB PO PRN (20:07)
[2022-10-28] MEDS: SUCRALFATE 1 GM/10 ML UDC PO SCH (21:02)
[2022-10-28] MEDS: METOPROLOL TARTRATE 25 MG TAB PO SCH (21:03)
[2022-10-28] MEDS: PARoxetine HCL 10 MG TAB PO SCH (21:04)
[2022-10-28] MEDS: rifAXIMin 550 MG TABLET PO SCH (21:04)
[2022-10-28] MEDS: PANTOprazole 40 MG TAB PO SCH (21:04)
[2022-10-29] MEDS ORDERED: ALBUMIN 25% 12.5 GM/50 ML VIAL IV ONE (02:58)
[2022-10-29 07:44] LABS: Basophils # (auto) 0.05 K/uL (0.00-0.20); Basophils % (auto) 0.8 %; Eosinophils # (auto) 0.33 K/uL (0.00-0.50); Eosinophils % (auto) 5.2 %; Hematocrit (blood only) 24.4 % (42.0-52.0); Immature Granulocytes # (auto) 0.06 K/uL (0.01-0.20); Lymphocytes # (auto) 0.75 K/uL (1.20-3.40); Lymphocytes % (auto) 11.9 %; Mean Corpuscular Hemoglobin 35.1 pg (25.0-34.0); Mean Corpuscular Hgb Conc 32.8 g/dL (32.0-36.0); Mean Platelet Volume 10.2 fL (9.4-12.4); Monocytes # (auto) 0.52 K/uL (0.11-0.59); Monocytes % (auto) 8.3 %; Neutrophils # (auto) 4.59 K/uL (1.40-6.50); Neutrophils % (auto) 72.8 %; Platelet Count 52 K/uL (130-400); RDW Coefficient of Variation 21.3 % (11.5-14.5); RDW Standard Deviation 82.2 fL (36.4-46.3); Red Blood Count 2.28 M/uL (4.70-6.10)
[2022-10-29 08:01] LABS: Albumin Level 1.8 gm/dl (3.4-5.0); Bilirubin,Total 3.8 mg/dl (0.2-1.0); Calcium 9.3 mg/dl (8.6-10.3); Magnesium 1.7 mg/dl (1.7-2.4); Potassium 3.8 mmol/L (3.5-5.1)
[2022-10-29] MEDS: MIDODRINE HCL 10 MG TAB PO SCH ×3 (08:03→17:59)
[2022-10-29] MEDS: CHOLECALCIFEROL 1,000 UNITS 25 MCG TAB PO SCH (08:04)
[2022-10-29] MEDS: ALBUMIN 25% 25 GM/100 ML VIAL IV SCH ×2 (08:04→15:37)
[2022-10-29] MEDS: LACTULOSE SYRUP 20 GM/30 ML UDC PO SCH (08:05)
[2022-10-29] MEDS: rifAXIMin 550 MG TABLET PO SCH ×2 (08:05→20:39)
[2022-10-29] MEDS: FUROSEMIDE 20 MG TAB PO SCH ×3 (08:05→17:37)
[2022-10-29] MEDS: PANTOprazole 40 MG TAB PO SCH ×2 (08:05→20:38)
[2022-10-29] MEDS: SUCRALFATE 1 GM/10 ML UDC PO SCH ×2 (08:06→20:39)
[2022-10-29 08:07] LABS: Albumin Globulin Ratio 0.6 (0.9-2); BUN Creatinine Ratio 10.5 (10-20); Creatinine Clr Calc Pharmacy 30.1 ml/min; Est GFR (African American) 24.1 ml/min; Est GFR (Non-African American) 20.8 ml/min; Globulin 2.9 gm/dl (2.5-4.0); Total Protein 4.7 gm/dl (6.0-8.3)
[2022-10-29 08:12] LABS: Echinocytes 2+; Polychromasia 2+
[2022-10-29] MEDS: METOPROLOL TARTRATE 25 MG TAB PO SCH ×2 (09:40→20:37)
--- NOTE | 2022-10-29 17:13 | Hospitalist Progress Note ---
Date of Service October 29, 2022 Assessment & Plan (1) Weakness: Plan: Weakness, fluid retention 2/2 cirrhosis. No evidence of acute CHF Previously on Lasix, this was discontinued with low blood pressures previously Patient pursuing transplant list placement as an outpatient No hypoxia Suspect weakness and fluid retention due to cirrhosis we will start the patient on IV Lasix 20 mg twice daily, ideally would also resume spironolactone to minimize ascites however BP will not tolerate this currently. Continue midodrine 10 mg 3 times daily Continue lactulose Continue rifaximin Ammonia 33 on admission, normal Free T4 normal on admission Lactate 2.6, downtrending to 2.4 after Lasix. Defer trend unless clinical change Creatinine baseline around 2.12.8. on admission, creatinine was at 3, down to 2.9 today Albumin 1.9, with third spacing. Suspect loss of oncotic pressure and third spacing with intravascular depletion. Lasix 20 mg IV BID with albumin 1 hr prior - PT/OT Recent GI bleed Last hospitalization with GI bleed requiring PPI, octreotide. Stabilized and was able to be discharged Hemoglobin last 8.4 on discharge, this is uptrending to 9.1 No evidence of acute bleeding on admission Trend daily Macrocytic anemia Uptrending hemoglobin, no acute bleeding. Stable, trended daily GAVE Continue PPI Hypothyroidism Free T4 normal History of paroxysmal SVT Metoprolol continued. EKG on admission is sinus tachycardia with PACs, no ST segment/T wave changes DVT prophylaxis: Pharmacal prophylaxis deferred due to history of recurrent severe GI bleeds. SCDs Diet: Low-salt Disposition: PCU due to COLLIN, volume depletion, and history of SVT CODE STATUS: DNR/DNI (2) Cirrhosis of liver: (3) CKD (chronic kidney disease), stage III: (4) GERD (gastroesophageal reflux disease): (5) Esophageal varices determined by endoscopy: (6) 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: (7) Pancytopenia: (8) Portal hypertensive gastropathy: (9) PSVT (paroxysmal supraventricular tachycardia): Admission and Anticipated Discharge Date Admission Date: October 28, 2022 Subjective patient says that he is still fluid overloaded. His legs are quite swollen. He still has a big abdomen. Review of Systems Review of Systems: All systems reviewed & are unremarkable except as noted in Subjective Physical Exam Physical Exam: general: Awake, conversant Heart: S1, S2/regular rate and rhythm, no murmur rubs or gallops Lungs: Clear to auscultation bilaterally. Normal effort Abdomen: Soft/nontender. distended abdomen . Positive bowel sounds. Extremities: No clubbing/cyanosis. 2-3+ bilateral pitting edema Behavior: Appropriate, cooperative Results & Data Results & Data Vital Signs (Past 12 Hours) Vital Signs Temp Pulse Pulse Resp BP Pulse Ox O2 Del Method 10/29/22 14:56 77 10/29/22 15:31 36.7 C 89 18 87/53 L 98 Room Air 10/29/22 11:28 36.5 C 73 18 97/59 L 97 Room Air 10/29/22 10:27 90/53 L 10/29/22 07:18 78 10/29/22 09:14 Room Air 10/29/22 07:54 36.6 C 80 18 92/56 L 98 Room Air Laboratory Results Abnormal lab results 10/28/22 10/29/22 10/29/22 Range/Units 18:47 07:31 07:31 RBC 2.28 L (4.70-6.10) M/uL Hgb 8.0 L (14.0-18.0) g/dl Hct 24.4 L (42.0-52.0) % MCV 107.0 H (80.0-100.0) fL MCH 35.1 H (25.0-34.0) pg RDW Std Deviation 82.2 H (36.4-46.3) fL RDW Coeff of Miguel 21.3 H (11.5-14.5) % Plt Count 52 L (130-400) K/uL Lymph # (Auto) 0.75 L (1.20-3.40) K/uL Sodium 134 L (136-145) mmol/L Chloride 108 H (98-107) mmol/L BUN 31 H (6-23) mg/dl Creatinine 2.95 H (0.6-1.4) mg/dl Total Bilirubin 3.8 H (0.2-1.0) mg/dl AST 42 H (13-39) U/L Alkaline Phosphatase 146 H (34-104) U/L Total Protein 4.7 L (6.0-8.3) gm/dl Albumin 1.8 L (3.4-5.0) gm/dl Albumin/Globulin Ratio 0.6 L (0.9-2) Urine Blood Trace H (Negative) Ur Leukocyte Esterase 2+ H (Negative) Urine WBC (Auto) 10-30 H (0-5) /hpf U Epithel Cells (Auto) 20-30 H (0-5) /lpf Urine Yeast Budding A (None Prsent) PG Care Time/CCT Total # of Minutes Spent Total Time Spent with Patient: Total time spent is greater than 50% in coordination of care (as documented) at patient's floor/unit and/or counseling patient: Coding Level of Care Code 81552 SUB INP/OBS CARE 2/35MIN Diagnoses Weakness R53.1 Cirrhosis of liver K70.30 Ascites presence: unspecified Hepatic cirrhosis type: alcoholic cirrhosis CKD (chronic kidney disease), stage III N18.3 GERD (gastroesophageal reflux disease) K21.9 Esophageal varices determined by endoscopy I85.00 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 K75.81; K74.60 Pancytopenia D61.818 Portal hypertensive gastropathy K76.6; K31.89 PSVT (paroxysmal supraventricular tachycardia) I47.1 (2) Cirrhosis of liver Ascites presence: unspecified Hepatic cirrhosis type: alcoholic cirrhosis Qualified Code(s): K70.30 - Alcoholic cirrhosis of liver without ascites
[2022-10-29] MEDS: traMADol HCL 50 MG TABLET PO PRN (18:08)
[2022-10-29] MEDS: FUROSEMIDE INJ 20 MG/2 ML VIAL IV SCH (18:08)
[2022-10-29] MEDS: PARoxetine HCL 10 MG TAB PO SCH (20:38)
--- NOTE | 2022-10-29 22:59 | Electrocardiogram Report ---
Test Reason : Blood Pressure : / mmHG Vent. Rate : 107 BPM Atrial Rate : 107 BPM P-R Int : 176 ms QRS Dur : 088 ms QT Int : 360 ms P-R-T Axes : 026 -16 018 degrees QTc Int : 480 ms Sinus tachycardia with Premature atrial complexes Low voltage QRS Poor R wave progression, consider anterior DC vs. lead placement vs. LVH Nonspecific T wave abnormality Abnormal ECG When compared with ECG of 13-OCT-2022 16:05, Premature atrial complexes are now Present Confirmed by Pepe Clarke ([id number]) on 10/29/2022 10:59:04 PM Referred By: REFERRED SELF Confirmed By:Pepe Clarke
[2022-10-30 07:10] LABS: Basophils # (auto) 0.06 K/uL (0.00-0.20); Basophils % (auto) 1.2 %; Eosinophils # (auto) 0.34 K/uL (0.00-0.50); Eosinophils % (auto) 6.7 %; Hematocrit (blood only) 23.2 % (42.0-52.0); Hemoglobin 7.9 g/dl (14.0-18.0); Immature Granulocytes # (auto) 0.02 K/uL (0.01-0.20); Immature Granulocytes % (auto) 0.4 %; Lymphocytes # (auto) 0.65 K/uL (1.20-3.40); Lymphocytes % (auto) 12.8 %; Mean Corpuscular Hemoglobin 35.4 pg (25.0-34.0); Mean Corpuscular Hgb Conc 34.1 g/dL (32.0-36.0); Mean Platelet Volume 9.8 fL (9.4-12.4); Monocytes # (auto) 0.53 K/uL (0.11-0.59); Monocytes % (auto) 10.4 %; Neutrophils # (auto) 3.48 K/uL (1.40-6.50); Neutrophils % (auto) 68.5 %; Platelet Count 49 K/uL (130-400); RDW Coefficient of Variation 20.6 % (11.5-14.5); RDW Standard Deviation 77.7 fL (36.4-46.3); Red Blood Count 2.23 M/uL (4.70-6.10); White Blood Count 5.08 K/ul (4.8-10.8)
[2022-10-30 07:41] LABS: Anisocytosis Present; Echinocytes 2+
[2022-10-30] MEDS: MIDODRINE HCL 10 MG TAB PO SCH ×3 (08:00→17:29)
[2022-10-30] MEDS: ALBUMIN 25% 25 GM/100 ML VIAL IV SCH ×3 (08:02→21:51)
[2022-10-30] MEDS: LACTULOSE SYRUP 20 GM/30 ML UDC PO SCH ×3 (08:03→21:56)
[2022-10-30] MEDS: CHOLECALCIFEROL 1,000 UNITS 25 MCG TAB PO SCH (08:03)
[2022-10-30] MEDS: METOPROLOL TARTRATE 25 MG TAB PO SCH ×2 (08:03→21:11)
[2022-10-30] MEDS: rifAXIMin 550 MG TABLET PO SCH ×2 (08:04→21:56)
[2022-10-30] MEDS: SUCRALFATE 1 GM/10 ML UDC PO SCH ×2 (08:04→21:56)
[2022-10-30] MEDS: PANTOprazole 40 MG TAB PO SCH ×2 (08:04→21:55)
[2022-10-30] MEDS: FUROSEMIDE INJ 20 MG/2 ML VIAL IV SCH (10:03)
[2022-10-30 14:51] LABS: Calcium 10.1 mg/dl (8.6-10.3)
[2022-10-30 14:54] LABS: BUN Creatinine Ratio 10.6 (10-20); Creatinine Clr Calc Pharmacy 29.5 ml/min; Est GFR (African American) 23.5 ml/min; Est GFR (Non-African American) 20.3 ml/min
--- NOTE | 2022-10-30 16:32 | Hospitalist Progress Note ---
Date of Service October 30, 2022 Assessment & Plan (1) Weakness: Plan: Weakness, fluid retention 2/2 cirrhosis. No evidence of acute CHF Previously on Lasix, this was discontinued with low blood pressures previously Patient pursuing transplant list placement as an outpatient No hypoxia Suspect weakness and fluid retention due to cirrhosis He was started on IV Lasix 20 mg twice daily. Continue midodrine 10 mg 3 times daily. No Aldactone due to soft blood pressures Creatinine went up to 3 today. We will hold off on further doses of Lasix Consult nephrology Continue lactulose Continue rifaximin Ammonia 33 on admission, normal Free T4 normal on admission Lactate 2.6, downtrending to 2.4 after Lasix. Defer trend unless clinical change Creatinine baseline around 2.12.8. Albumin 1.9, with third spacing. Suspect loss of oncotic pressure and third spacing with intravascular depletion. Will hold off on further doses of Lasix - PT/OT COLLIN Creatinine trending up in response to diuretic consult nephrology Hold off on further doses of Lasix Ascites Consult IR for paracentesis Recent GI bleed Last hospitalization with GI bleed requiring PPI, octreotide. Stabilized and was able to be discharged Hemoglobin last 8.4 on discharge today 7.9 No evidence of acute bleeding on admission Trend daily Macrocytic anemia Uptrending hemoglobin, no acute bleeding. Stable, trended daily GAVE Continue PPI Hypothyroidism Free T4 normal History of paroxysmal SVT Metoprolol continued. EKG on admission is sinus tachycardia with PACs, no ST segment/T wave changes DVT prophylaxis: Pharmacal prophylaxis deferred due to history of recurrent severe GI bleeds. SCDs Diet: Low-salt Disposition: PCU due to COLILN, volume depletion, and history of SVT CODE STATUS: DNR/DNI (2) Cirrhosis of liver: (3) CKD (chronic kidney disease), stage III: (4) GERD (gastroesophageal reflux disease): (5) Esophageal varices determined by endoscopy: (6) 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: (7) Pancytopenia: (8) Portal hypertensive gastropathy: (9) PSVT (paroxysmal supraventricular tachycardia): Admission and Anticipated Discharge Date Admission Date: October 28, 2022 Subjective patient still feels bloated. he still has significant leg swelling, belly swelling. Review of Systems Review of Systems: All systems reviewed & are unremarkable except as noted in Subjective Physical Exam Physical Exam: general: Awake, conversant Heart: S1, S2/regular rate and rhythm, no murmur rubs or gallops Lungs: Clear to auscultation bilaterally. Normal effort Abdomen: Soft/nontender. distended abdomen . Positive bowel sounds. Extremities: No clubbing/cyanosis. 2-3+ bilateral pitting edema Behavior: Appropriate, cooperative Results & Data Results & Data Vital Signs (Past 12 Hours) Vital Signs Temp Pulse Pulse Resp BP Pulse Ox O2 Del Method 10/30/22 12:19 36.6 C 83 17 95/60 L 98 Room Air 10/30/22 07:08 82 10/30/22 12:04 Room Air 10/30/22 07:42 36.5 C 84 17 91/55 L 97 Room Air Laboratory Results Abnormal lab results 10/30/22 10/30/22 Range/Units 06:37 14:06 RBC 2.23 L (4.70-6.10) M/uL Hgb 7.9 L (14.0-18.0) g/dl Hct 23.2 L (42.0-52.0) % MCV 104.0 H (80.0-100.0) fL MCH 35.4 H (25.0-34.0) pg RDW Std Deviation 77.7 H (36.4-46.3) fL RDW Coeff of Miguel 20.6 H (11.5-14.5) % Plt Count 49 L (130-400) K/uL Lymph # (Auto) 0.65 L (1.20-3.40) K/uL Sodium 135 L (136-145) mmol/L Potassium 3.0 L D (3.5-5.1) mmol/L BUN 32 H (6-23) mg/dl Creatinine 3.01 H (0.6-1.4) mg/dl Glucose 139 H (70-99(Fasting)) mg/dl PG Care Time/CCT Total # of Minutes Spent Total Time Spent with Patient: Total time spent is greater than 50% in coordination of care (as documented) at patient's floor/unit and/or counseling patient: Coding Level of Care Code 71115 SUB INP/OBS CARE 2/35MIN Diagnoses Weakness R53.1 Cirrhosis of liver K70.30 Ascites presence: unspecified Hepatic cirrhosis type: alcoholic cirrhosis CKD (chronic kidney disease), stage III N18.3 GERD (gastroesophageal reflux disease) K21.9 Esophageal varices determined by endoscopy I85.00 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 K75.81; K74.60 Pancytopenia D61.818 Portal hypertensive gastropathy K76.6; K31.89 PSVT (paroxysmal supraventricular tachycardia) I47.1 (2) Cirrhosis of liver Ascites presence: unspecified Hepatic cirrhosis type: alcoholic cirrhosis Qualified Code(s): K70.30 - Alcoholic cirrhosis of liver without ascites
[2022-10-30] MEDS ORDERED: POTASSIUM CHLORIDE CRTAB 20 MEQ TABCR PO STA (16:39)
--- NOTE | 2022-10-30 16:52 | Nephrology Consultation ---
Date of Consultation October 30, 2022 Assessment & Plan (1) COLLIN (acute kidney injury): * COLLIN on CKD likely reflective of 3rd spacing of volume related to cirrhosis and hypoalbuminemia * Will change albumin to 25g IV q8 hrs * Agree w/ Midodrine therapy * Continue Furosemide 40 mg po qAM and Spironolactone 100 mg po daily to help mobilize peripheral edema * 10/28/[address] report reviewed - no hydronephrosis * If kidney function fails to stabilize w/ albumin and midodrine therapy, consider adding Octreotide * Monitor PRP, UO (2) CKD (chronic kidney disease), stage III: * Baseline Cr 2.0-2.5. Has underlying microvascular disease (3) Anemia: * Hgb 7.9 on admission * H/o GAVE with UGI bleed * Recommend transfusion to maintain Hgb > 8.0 (4) Cirrhosis of liver: * Admitted w/ hypothermia, mild abdominal discomfort. Recommend consultation w/ GI. Consider diagnostic/therapeutic paracentesis (5) Hypotension: * Midodrine and colloid therapy as outlined above History of Present Illness Reason for Consultation: COLLIN/CKD Attending Physician: Leyla Pennington MD History of Present Illness Mr. Quiñonez is a 67 year old white male who is seen at the request of the [facility] Hospitalist Service for evaluation of COLLIN/CKD. Information for the HPI is obtained by direct patient interview and review of the EMR. HPI is summarized as follows: Mr. Quiñonez has cirrhosis due to [place]ERRANO [place] [facility] GAVE w/ recurrent UGI bleed, psoriatic arthritis (Humira), spinal stenosis, OA, HTN, h/o urethral reconstruction ([facility] [place]). Mr. Quiñonez has CKD due to microvascular disease. His baseline Cr has been 2.0-2.5. His primary Packaging Engineer is Dr. Martinez. Abdominal CT 10/28/22 revealed cortical thinning, small bilateral kidney stones, no hydronephrosis. In 09/16 Mr. Quiñonez began to experience orthostasis. His loop diuretic and MRA were held. He was hospitalized 09/23/22-10/05/22 due to UGI bleed requiring 2 units PRBC. Endoscopy was not required. OP Hepatology follow up w/ Dr. Espitia was recommended. Mr. Quiñonez returned to [facility] 10/28/22 with complaints of progressive LE/abdominal swelling, weakness and difficulty ambulating. Evaluation has revealed Cr 3.0, K 3.0, albumin 1.8, T. Bili 3.8, AST 42, NH3 33, WBC 3.9, Hgb 7.9, T36.3, SBP 70- 80 mmHg. Hypotension was attributed to cirrhosis, hypoalbuminemia w/ 3rd spacing volume. Patient has been started on midodrine and IV albumin/Lasix. Allergies Allergy/AdvReac Type Severity Reaction Status Date / Time tamsulosin Allergy Intermediate HIVES Verified 10/28/22 17:07 etanercept [From Enbrel] AdvReac Intermediate Increased Verified 10/28/22 17:07 infections Home Medications Medication Instructions Recorded Confirmed Type ondansetron HCl 4 mg tablet 4 mg PO Q8H PRN Nausea And 08/08/22 10/28/22 Rx Vomiting #30 tabs lactulose 10 gram/15 mL oral 20 g (30 mL) PO DAILY #946 mL 08/10/22 10/28/22 Rx solution furosemide 20 mg tablet 20 mg PO DAILY PRN edema #14 tabs 09/07/22 10/28/22 Rx midodrine 10 mg tablet 15 mg PO TID #135 tabs 09/14/22 10/28/22 Rx Walker #1 ea 09/21/22 Rx paroxetine HCl 10 mg tablet 10 mg PO HS 09/23/22 10/28/22 History pantoprazole 40 mg tablet,delayed 40 mg PO BID #60 tabs 09/27/22 10/28/22 Rx release rifaximin 550 mg tablet (Xifaxan) 550 mg PO BID #60 tabs 09/27/22 10/28/22 Rx metoprolol tartrate 25 mg tablet 12.5 mg PO BID #0 tabs 10/03/22 10/28/22 Rx acetaminophen 325 mg tablet 650 mg PO QID PRN Fever Or Pain 10/18/22 10/28/22 History (Tylenol) cholecalciferol (vitamin D3) 50 2,000 unit PO QAM 10/28/22 10/28/22 History mcg (2,000 unit) capsule (Vitamin D3) sucralfate 100 mg/mL oral 10 ml PO BID 10/28/22 10/28/22 History suspension fludrocortisone 0.1 mg tablet 0.1 mg PO BID #180 tabs 10/30/22 Rx Patient History Medical History Anemia Ascites Calculus of kidney Cervical disc disease CKD (chronic kidney disease), stage III Depression Esophageal varices determined by endoscopy GAVE (gastric antral vascular ectasia) Per records GERD (gastroesophageal reflux disease) History of GI bleed discharged from [facility] 06/10/22: borderline hemorrhagic shock-upper GI bleed suspected to be d/t GAVE-received 1 unit of PRBC History of herniated intervertebral disc lumbar area History of SCC (squamous cell carcinoma) of skin S/p removal- follows with derm Hx of blood clots 06/2021 @ [facility]- pt reports blood clot in left arm around IV site after being discharged from hospital- no meds due to current blood loss issue- warm compresses to site per pt- 2 ultrasounds done - no current issues Hx of upper gastrointestinal hemorrhage recent hospitalization at [facility] 06/07/2022 Hyperkalemia Hypothyroidism 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 current work-up for planned liver transplant per [facility] transplant clinic records Lumbar disc disease Oral mucositis On mouthwash daily- no recent issues Pancytopenia Portal hypertensive gastropathy Post-traumatic urethral stricture Psoriasis Psoriatic arthritis PVT (portal vein thrombosis) denies Spinal stenosis EPIDURAL INJECTIONS IN PAST FOR PAIN RELIEF TMJ arthralgia Urinary retention Urinary tract infection Wide-complex tachycardia ON CARDVEDILOL-F/U DR VANESSA LAST VISIT<1 YR AGO Surgical History H/O foot surgery excision of neuroma b/l feet History of appendectomy History of arthroscopy RT KNEE History of cataract surgery RT/LEFT History of cholecystectomy History of esophagogastroduodenoscopy (EGD) last 03/21/22 @ [facility] 02/08/22 Dr. Sara Cloud- EGD- Grade I esophageal varices, Portal hypertensive gastropathy History of herniorrhaphy right inguinal History of lithotripsy History of liver biopsy History of repair of rotator cuff RT/LEFT History of tooth extraction History of urologic surgery Urethral reconstruction 4 years ago at [facility] Nausea and vomiting after administration of anesthetic agent S/P colonoscopy S/P epidural steroid injection S/P orchiectomy Right age 9 for UDT S/P urological surgery (2018) [place]rapubic catheter AND REMOVAL Family History Grandmother (Maternal) Diabetes Father Renal cancer Mother Aortic aneurysm Denies family history of Ovarian cancer Prostate cancer Myocardial infarction Breast cancer Colorectal cancer Social History Smoking Status: Never smoker Second Hand Exposure: No; Do You Dip or Chew Tobacco: No; Hx Alcohol Use: No Hx Substance Use: No Preferred Language: Luxembourger Communication Ability: Effective Visual Impairment: No Limitations Hearing Ability: Hard of Hearing Industrial Machine Assembler Required: No Beliefs That Will Affect Care: None marital status: / Current Living Situation: Family Current Living Situation Comment: lives with son current occupational status: retired How many Children do You have: 1 Other Information That Helps Us Care for You: No Feels Safe at Home: Yes Safety Concerns: Feels Safe At This Time Diet: low salt Diet Comment: LOW SALT caffeine: Yes during the past year weight has: remained stable Dental Care, Regularly: No Physical Activity Frequency: Other Physical Activity Frequency Comment: does all housework/outside work and cuts wood Seatbelt Use: never Sunscreen Use: No Assistive Devices: Cane, Walker and Other Review of Systems Constitutional: + weakness; no fever Eyes: no problem reported Ear, Nose, Mouth, Throat: no problem reported Respiratory: no cough and no dyspnea Cardiovascular: + edema; no chest pain Gastrointestinal: + abdominal pain, + nausea, + vomiting and + diarrhea/loose stools Physical Exam Constitutional: not in distress Eyes: sclerae not anicteric ENMT: external ear and nose normal, oropharynx normal Neck: trachea midline, no thyromegaly Respiratory: normal respiratory effort, lungs clear to auscultation Cardiovascular: Rate/Rhythm: regular rate and regular rhythm Extremities: + edema (2+ pretibial pitting edema) No JVD Gastrointestinal (Abdomen): Inspection/Auscultation: + abdomen distended Percussion/Palpation: + abdomen tender, abdomen soft and + fluid wave; no guarding Neurologic: Speech / Cognition: normal speech and normal cognition Results & Data Vital Signs (Past 12 Hours) Vital Signs Temp Pulse Pulse Resp BP Pulse Ox O2 Del Method 10/30/22 16:22 36.3 C L 85 18 105/60 98 Room Air 10/30/22 12:19 36.6 C 83 17 95/60 L 98 Room Air 10/30/22 07:08 82 10/30/22 12:04 Room Air 10/30/22 07:42 36.5 C 84 17 91/55 L 97 Room Air Laboratory Results Laboratory Tests 10/28/22 10/28/22 10/28/22 14:28 14:28 14:28 WBC Hgb Hct Plt Count INR 1.6 H Sodium Potassium Chloride Carbon Dioxide BUN Creatinine Glucose Calcium Total Bilirubin AST ALT Alkaline Phosphatase Ammonia 33.0 Albumin Free T4 0.76 Ur Specific Hughes Urine Protein Urine RBC (Auto) Urine Bacteria (Auto) 10/28/22 10/29/22 10/30/22 18:47 07:31 06:37 WBC 5.08 Hgb 7.9 L Hct 23.2 L Plt Count 49 L INR Sodium Potassium Chloride Carbon Dioxide BUN Creatinine Glucose Calcium Total Bilirubin 3.8 H AST 42 H ALT 26 Alkaline Phosphatase 146 H Ammonia Albumin 1.8 L Free T4 Ur Specific Hughes 1.007 Urine Protein Negative Urine RBC (Auto) 0-4 Urine Bacteria (Auto) Negative 10/30/22 14:06 WBC Hgb Hct Plt Count INR Sodium 135 L Potassium 3.0 L D Chloride 106 Carbon Dioxide 22 BUN 32 H Creatinine 3.01 H Glucose 139 H Calcium 10.1 Total Bilirubin AST ALT Alkaline Phosphatase Ammonia Albumin Free T4 Ur Specific Hughes Urine Protein Urine RBC (Auto) Urine Bacteria (Auto) PG Care Time/CCT Total # of Minutes Spent Total Time Spent with Patient: Total time spent is greater than 50% in coordination of care (as documented) at patient's floor/unit and/or counseling patient: Coding Level of Care Code 80860 IN/OBS CONSULT LVL 5,80M Diagnoses COLLIN (acute kidney injury) N17.9 CKD (chronic kidney disease), stage III N18.3 Anemia D64.9 Cirrhosis of liver K70.30 Ascites presence: unspecified Hepatic cirrhosis type: alcoholic cirrhosis Hypotension I95.9 (4) Cirrhosis of liver Ascites presence: unspecified Hepatic cirrhosis type: alcoholic cirrhosis Qualified Code(s): K70.30 - Alcoholic cirrhosis of liver without ascites
[2022-10-30] MEDS: PARoxetine HCL 10 MG TAB PO SCH (21:56)
[2022-10-31] MEDS: MIDODRINE HCL 10 MG TAB PO SCH ×3 (06:24→18:05)
[2022-10-31 07:43] LABS: Basophils # (auto) 0.04 K/uL (0.00-0.20); Basophils % (auto) 0.8 %; Eosinophils % (auto) 6.4 %; Hematocrit (blood only) 21.5 % (42.0-52.0); Hemoglobin 7.3 g/dl (14.0-18.0); Immature Granulocytes # (auto) 0.02 K/uL (0.01-0.20); Immature Granulocytes % (auto) 0.4 %; Lymphocytes # (auto) 0.62 K/uL (1.20-3.40); Lymphocytes % (auto) 13.2 %; Mean Corpuscular Hemoglobin 35.8 pg (25.0-34.0); Mean Corpuscular Volume 105.4 fL (80.0-100.0); Mean Platelet Volume 9.4 fL (9.4-12.4); Monocytes # (auto) 0.58 K/uL (0.11-0.59); Monocytes % (auto) 12.3 %; Neutrophils # (auto) 3.15 K/uL (1.40-6.50); Neutrophils % (auto) 66.9 %; Platelet Count 40 K/uL (130-400); RDW Coefficient of Variation 21.2 % (11.5-14.5); RDW Standard Deviation 80.9 fL (36.4-46.3); Red Blood Count 2.04 M/uL (4.70-6.10); White Blood Count 4.71 K/ul (4.8-10.8)
[2022-10-31 08:00] LABS: BUN Creatinine Ratio 9.7 (10-20); Calcium 10.2 mg/dl (8.6-10.3); Creatinine Clr Calc Pharmacy 28.5 ml/min; Est GFR (African American) 22.9 ml/min; Est GFR (Non-African American) 19.8 ml/min; Potassium 3.6 mmol/L (3.5-5.1)
[2022-10-31 08:08] LABS: Echinocytes 1+; Macrocytosis Present; Polychromasia 1+
[2022-10-31] MEDS: SPIRONOLACTONE 100 MG TAB PO SCH (08:19)
[2022-10-31] MEDS: METOPROLOL TARTRATE 25 MG TAB PO SCH ×2 (08:20→21:10)
[2022-10-31] MEDS: CHOLECALCIFEROL 1,000 UNITS 25 MCG TAB PO SCH (08:20)
[2022-10-31] MEDS: rifAXIMin 550 MG TABLET PO SCH ×2 (08:20→21:10)
[2022-10-31] MEDS: PANTOprazole 40 MG TAB PO SCH ×2 (08:20→21:11)
[2022-10-31] MEDS: SUCRALFATE 1 GM/10 ML UDC PO SCH ×2 (08:20→21:09)
[2022-10-31] MEDS: FUROSEMIDE 40 MG TAB PO SCH (08:24)
[2022-10-31] MEDS: LACTULOSE SYRUP 20 GM/30 ML UDC PO SCH ×3 (08:28→21:01)
[2022-10-31] MEDS: ALBUMIN 25% 25 GM/100 ML VIAL IV SCH ×3 (08:32→22:14)
--- NOTE | 2022-10-31 09:10 | Nephrology Progress Note ---
Date of Service October 31, 2022 Assessment & Plan (1) COLLIN (acute kidney injury): Plan: * COLLIN on CKD likely reflective of 3rd spacing of volume related to cirrhosis and hypoalbuminemia * Continue albumin 25g IV q8 hrs * Continue Midodrine therapy * Continue Furosemide 40 mg po qAM and Spironolactone 100 mg po daily to help mobilize peripheral edema * 10/28/[address] report reviewed - no hydronephrosis * Kidney function has been stable overnight. Hold Octreotide therapy * Monitor PRP, UO (2) CKD (chronic kidney disease), stage III: Plan: * Baseline Cr 2.0-2.5. Has underlying microvascular disease (3) Anemia: Plan: * Hgb 7.9-->7.3 * H/o GAVE with UGI bleed * Recommend transfusion to maintain Hgb > 8.0 (4) Cirrhosis of liver: Plan: * Admitted w/ hypothermia, mild abdominal discomfort. Recommend consultation w/ GI. Consider diagnostic/therapeutic paracentesis (5) Hypotension: Plan: * Midodrine and colloid therapy as outlined above Admission and Anticipated Discharge Date Admission Date: October 28, 2022 Subjective Mr. Quiñonez was evaluated in his hospital room this morning. He c/o abdominal discomfort, distention and nausea. Review of Systems Constitutional: + weakness; no fever Eyes: no problem reported Ear, Nose, Mouth, Throat: no problem reported Respiratory: no cough and no dyspnea Cardiovascular: + edema; no chest pain Gastrointestinal: + abdominal pain, + nausea, + vomiting and + diarrhea/loose stools Physical Exam Constitutional: not in distress Eyes: sclerae not anicteric ENMT: external ear and nose normal, oropharynx normal Neck: trachea midline, no thyromegaly Respiratory: normal respiratory effort, lungs clear to auscultation Cardiovascular: Rate/Rhythm: regular rate and regular rhythm Extremities: + edema (2+ pretibial pitting edema) Gastrointestinal (Abdomen): Inspection/Auscultation: + abdomen distended Percussion/Palpation: + abdomen tender, abdomen soft and + fluid wave; no guarding Neurologic: Speech / Cognition: normal speech and normal cognition Results & Data Vital Signs (Past 12 Hours) Vital Signs Temp Pulse Pulse Resp BP Pulse Ox O2 Del Method 10/31/22 07:49 Room Air 10/31/22 07:18 90 10/31/22 07:09 36.7 C 90 18 92/57 L 94 Room Air 10/31/22 02:28 36.7 C 88 16 96/57 L 97 Room Air 10/30/22 23:29 87 10/30/22 22:27 36.7 C 73 16 104/66 96 Room Air Laboratory Results Laboratory Tests 10/28/22 10/29/22 10/31/22 14:28 07:31 06:54 WBC 4.71 L Hgb 7.3 L Hct 21.5 L Plt Count 40 L INR 1.6 H Sodium Potassium Chloride Carbon Dioxide BUN Creatinine Albumin 1.8 L 10/31/22 06:54 WBC Hgb Hct Plt Count INR Sodium 140 Potassium 3.6 Chloride 108 H Carbon Dioxide 26 BUN 30 H Creatinine 3.08 H Albumin PG Care Time/CCT Total # of Minutes Spent Total Time Spent with Patient: Total time spent is greater than 50% in coordination of care (as documented) at patient's floor/unit and/or counseling patient: Coding Level of Care Code 73166 SUB INP/OBS CARE 3/50MIN Diagnoses COLLIN (acute kidney injury) N17.9 CKD (chronic kidney disease), stage III N18.3 Anemia D64.9 Cirrhosis of liver K70.30 Ascites presence: unspecified Hepatic cirrhosis type: alcoholic cirrhosis Hypotension I95.9 (4) Cirrhosis of liver Ascites presence: unspecified Hepatic cirrhosis type: alcoholic cirrhosis Qualified Code(s): K70.30 - Alcoholic cirrhosis of liver without ascites
[2022-10-31 12:34] LABS: Albumin Peritoneal Fluid < 1.5 gm/dl
[2022-10-31 12:39] LABS: Glucose Peritoneal Fluid 109 mg/dl; LDH Peritoneal Fluid 30 U/L; Total Protein Peritoneal Fluid < 3.0 gm/dl
--- NOTE | 2022-10-31 12:52 | Ultrasound Report ---
Ultrasound guided paracentesis INDICATION: Ascites PROCEDURE: Procedure and risks were explained. Informed consent was obtained. A final timeout was com pleted. The left lower quadrant was prepped and draped in sterile fashion. 1% buffered lidocaine was utilized for skin anesthesia. Utilizing ultrasound guidance, a 5 Burmese safety centesis catheter was advanced into the pocket of as gina. Ultrasound images were obtained. 1 L of yellow fluid was removed and sent to lab for analysis. The catheter was removed and Band-Aid applied. The patient tolerated the procedure well. Vital signs will be monitored postprocedure. IMPRESSION: Paracentesis as above. Performed, dictated, and signed by Jose Elias Romero PA-C; to be co-signed by Dr. Alan Espino. Electronically signed by: Alan Espino M.D. 10/31/2022 1:07 PM
[2022-10-31] MEDS ORDERED: SODIUM CHLORIDE 0.9% 250 ML IV PRN (13:07)
[2022-10-31 13:21] LABS: Appearance Peritoneal Fluid Hazy; Color Peritoneal Fluid Yellow; Lymphocytes, Fluid 11 %; Mono,Macrophage,Mesothelial 44 %; Neutrophils, Fluid 45 %; RBC Peritoneal Fluid Auto < 2000 /uL; WBC Peritoneal Fluid Auto 207 /ul (0-300)
--- NOTE | 2022-10-31 14:44 | Gastrointestinal Consultation ---
Date of Consultation October 31, 2022 Assessment & Plan (1) Cirrhosis of liver: (2) COLLIN (acute kidney injury): (3) Edema: Pt is a 67 yo male w hx of SERRANO cirrhosis, GAVE bleeding, ascites, CKD who presented w volume overload and COLLIN. MELD 28. He underwent us guided paracentesis this AM, fluid analysis pending, 1L removed - F/U ascites fluid analysis results, serjio to r/o SBP - Monitor blood ct and transfuse prn - Albumin IV support - Diuretics per Nephrology: Lasix 40mg + Spironolactone 100mg - Midodrine 20mg TID - 2g Na diet - No APAP >2g a day - F/U w Hepatology and C Transplant teams upon DC Supervising Physician Co-Signing Physician Notes I personally saw and evaluated the patient on 10/31/2022 with BRENDA Chanel and agree with her findings and plan of care. 67 y/o M with history of decompensated SERRANO cirrhosis c/b ascites, HE, varices, recurrent PHG and GAVE bleeding, and anasarca as well as CKD admitted with weakness. On admission found to have COLLIN on CKD with Cr of 3.0 from baseline of 2.2-2.5. MELD-Na is 28 on admission. Na is 140. Fluid studies from paracentesis without evidence SBP. On exam he is AAOx3 but is slower to respond to questions, no asterixis, moderate ascites, 3+ LE edema. Recommend IV albumin along with diuresis as outline by nephrology given anasarca. Continue midodrine. 2 gram sodium restricted diet. Daily MELD labs. Complete infectious work up including blood cultures, UA, CXR. Continue lactulose and rifaximin and titrate for 3-4 soft bowel movements/daily. He is being worked up for liver transplant as outpatient. Strongly recommend PT/OT working with him in hospital to prevent worsening weakness which will decrease his ability to be placed on the transplant list once his eval is complete. Luda Espitia, Gastroenterology and Hepatology History of Present Illness Reason for Consultation: Cirrhosis, ascites Requesting Physician: Dr. Leyla Pennington Attending Physician: Dr. Luda Espitia History of Present Illness Pt is a 67 yo male w hx of SERRANO cirrhosis complicated by GAVE, ascites, CKD who presented w weakness. Was at [facility] and doing well but since returning home for about 2-3 days, he progressively feels weak, dizzy and noticed that legs are getting swollen. Abd also feels more distended and uncomfortable. Denies fever, chills, n/v, though appetite is poor but trying to take nutritional supplements. Workup showed that he has volume overload w body wall edemas, ascites and COLLIN on CKD (Cr 3, baseline 2.5). MELD is 28 Allergies Allergy/AdvReac Type Severity Reaction Status Date / Time tamsulosin Allergy Intermediate HIVES Verified 10/28/22 17:07 etanercept [From Enbrel] AdvReac Intermediate Increased Verified 10/28/22 17:07 infections Home Medications Medication Instructions Recorded Confirmed Type ondansetron HCl 4 mg tablet 4 mg PO Q8H PRN Nausea And 08/08/22 10/28/22 Rx Vomiting #30 tabs lactulose 10 gram/15 mL oral 20 g (30 mL) PO DAILY #946 mL 08/10/22 10/28/22 Rx solution furosemide 20 mg tablet 20 mg PO DAILY PRN edema #14 tabs 09/07/22 10/28/22 Rx midodrine 10 mg tablet 15 mg PO TID #135 tabs 09/14/22 10/28/22 Rx Walker #1 ea 09/21/22 Rx paroxetine HCl 10 mg tablet 10 mg PO HS 09/23/22 10/28/22 History pantoprazole 40 mg tablet,delayed 40 mg PO BID #60 tabs 09/27/22 10/28/22 Rx release rifaximin 550 mg tablet (Xifaxan) 550 mg PO BID #60 tabs 09/27/22 10/28/22 Rx metoprolol tartrate 25 mg tablet 12.5 mg PO BID #0 tabs 10/03/22 10/28/22 Rx acetaminophen 325 mg tablet 650 mg PO QID PRN Fever Or Pain 10/18/22 10/28/22 History (Tylenol) cholecalciferol (vitamin D3) 50 2,000 unit PO QAM 10/28/22 10/28/22 History mcg (2,000 unit) capsule (Vitamin D3) sucralfate 100 mg/mL oral 10 ml PO BID 10/28/22 10/28/22 History suspension fludrocortisone 0.1 mg tablet 0.1 mg PO BID #180 tabs 10/30/22 Rx Patient History Medical History Anemia Ascites Calculus of kidney Cervical disc disease CKD (chronic kidney disease), stage III Depression Esophageal varices determined by endoscopy GAVE (gastric antral vascular ectasia) Per records GERD (gastroesophageal reflux disease) History of GI bleed discharged from [facility] 06/10/22: borderline hemorrhagic shock-upper GI bleed suspected to be d/t GAVE-received 1 unit of PRBC History of herniated intervertebral disc lumbar area History of SCC (squamous cell carcinoma) of skin S/p removal- follows with derm Hx of blood clots 06/2021 @ [facility]- pt reports blood clot in left arm around IV site after being discharged from hospital- no meds due to current blood loss issue- warm compresses to site per pt- 2 ultrasounds done - no current issues Hx of upper gastrointestinal hemorrhage recent hospitalization at [facility] 06/07/2022 Hyperkalemia Hypothyroidism 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 current work-up for planned liver transplant per [facility] transplant clinic records Lumbar disc disease Oral mucositis On mouthwash daily- no recent issues Pancytopenia Portal hypertensive gastropathy Post-traumatic urethral stricture Psoriasis Psoriatic arthritis PVT (portal vein thrombosis) denies Spinal stenosis EPIDURAL INJECTIONS IN PAST FOR PAIN RELIEF TMJ arthralgia Urinary retention Urinary tract infection Wide-complex tachycardia ON CARDVEDILOL-F/U DR VANESSA LAST VISIT<1 YR AGO Surgical History H/O foot surgery excision of neuroma b/l feet History of appendectomy History of arthroscopy RT KNEE History of cataract surgery RT/LEFT History of cholecystectomy History of esophagogastroduodenoscopy (EGD) last 03/21/22 @ [facility] 02/08/22 Dr. Sara Cloud- EGD- Grade I esophageal varices, Portal hypertensive gastropathy History of herniorrhaphy right inguinal History of lithotripsy History of liver biopsy History of repair of rotator cuff RT/LEFT History of tooth extraction History of urologic surgery Urethral reconstruction 4 years ago at [facility] Nausea and vomiting after administration of anesthetic agent S/P colonoscopy S/P epidural steroid injection S/P orchiectomy Right age 9 for UDT S/P urological surgery (2018) BMG urethroplasty-[facility] Suprapubic catheter AND REMOVAL Family History Grandmother (Maternal) Diabetes Father Renal cancer Mother Aortic aneurysm Denies family history of Ovarian cancer Prostate cancer Myocardial infarction Breast cancer Colorectal cancer Social History Smoking Status: Never smoker Second Hand Exposure: No; Do You Dip or Chew Tobacco: No; Hx Alcohol Use: No Hx Substance Use: No Preferred Language: Moldovan Communication Ability: Effective Visual Impairment: No Limitations Hearing Ability: Hard of Hearing Scientist Propagator Required: No Beliefs That Will Affect Care: None marital status: / Current Living Situation: Family Current Living Situation Comment: lives with son current occupational status: retired How many Children do You have: 1 Other Information That Helps Us Care for You: No Feels Safe at Home: Yes Safety Concerns: Feels Safe At This Time Diet: low salt Diet Comment: LOW SALT caffeine: Yes during the past year weight has: remained stable Dental Care, Regularly: No Physical Activity Frequency: Other Physical Activity Frequency Comment: does all housework/outside work and cuts wood Seatbelt Use: never Sunscreen Use: No Assistive Devices: Cane, Walker and Other Review of Systems Review of Systems: All systems reviewed & are unremarkable except as noted in HPI & below Physical Exam Constitutional: + frail appearing, well groomed, cooperative and comfortable Eyes: PERRL, conjunctivae normal, anicteric sclerae ENMT: external ear and nose normal, oropharynx normal Respiratory: normal respiratory effort, diminished bilateral lung bases Cardiovascular: RRR, no murmur, no edema Gastrointestinal (Abdomen): normal bowel sounds, soft, nontender, no hepatosplenomegaly Skin: no rashes, warm and dry no jaundice Neurologic: Motor/Sensory: no asterixis Psychiatric: A+Ox3, euthymic affect Lymphatic: + lymphedema (anasarca, +2 pitting edema bilateral LE ) Results & Data Vital Signs (Past 12 Hours) Vital Signs Temp Pulse Pulse Resp BP Pulse Ox O2 Del Method 10/31/22 13:12 36.7 C 80 18 99/63 L 94 Room Air 10/31/22 13:13 36.8 C 88 18 105/70 95 Room Air 10/31/22 11:49 36.9 C 96 H 18 89/54 L 93 Room Air 10/31/22 07:49 Room Air 10/31/22 07:18 90 10/31/22 07:09 36.7 C 90 18 92/57 L 94 Room Air (1) Cirrhosis of liver Ascites presence: unspecified Hepatic cirrhosis type: alcoholic cirrhosis Qualified Code(s): K70.30 - Alcoholic cirrhosis of liver without ascites (3) Edema Edema type: unspecified Qualified Code(s): R60.9 - Edema, unspecified
--- NOTE | 2022-10-31 15:18 | Hospitalist Progress Note ---
Date of Service October 31, 2022 Assessment & Plan (1) Weakness: Plan: Weakness, fluid retention 2/2 cirrhosis. No evidence of acute CHF Previously on Lasix, this was discontinued with low blood pressures previously Patient pursuing transplant list placement as an outpatient No hypoxia Suspect weakness and fluid retention due to cirrhosis patient is being treated with 40 mg of Lasix and 100 mg of Aldactone. His blood pressure is soft Increase midodrine to 20 mg 3 times daily per GI recommendation Continue lactulose, rifaximin Creatinine remained stable at 3 Nephrology and GI on board Patient had paracentesis done. Fluid analysis results are not impressive for SBP MELD score 28 COLLIN Creatinine stable at 3 today nephrology involved continue Lasix and Aldactone in 2:5 ratio Ascites status post diagnostic and therapeutic paracentesis Fluid analysis is not suggestive of SBP Recent GI bleed Last hospitalization with GI bleed requiring PPI, octreotide. Stabilized and was able to be discharged Hemoglobin last 8.4 on discharge today 7.3 Ordered transfusion No evidence of acute bleeding on admission Trend daily Macrocytic anemia Uptrending hemoglobin, no acute bleeding. Stable, trended daily GAVE Continue PPI Hypothyroidism Free T4 normal History of paroxysmal SVT Metoprolol continued. EKG on admission is sinus tachycardia with PACs, no ST segment/T wave changes DVT prophylaxis: Pharmacal prophylaxis deferred due to history of recurrent severe GI bleeds. SCDs Diet: Low-salt Disposition: PCU due to COLLIN, volume depletion, and history of SVT CODE STATUS: DNR/DNI (2) Cirrhosis of liver: (3) CKD (chronic kidney disease), stage III: (4) GERD (gastroesophageal reflux disease): (5) Esophageal varices determined by endoscopy: (6) 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: (7) Pancytopenia: (8) Portal hypertensive gastropathy: (9) PSVT (paroxysmal supraventricular tachycardia): Admission and Anticipated Discharge Date Admission Date: October 28, 2022 Subjective patient says that he feels better, now that the fluid has been removed from his belly. He says that his legs are still swollen. Review of Systems Review of Systems: All systems reviewed & are unremarkable except as noted in Subjective Physical Exam Physical Exam: general: Awake, conversant Heart: S1, S2/regular rate and rhythm, no murmur rubs or gallops Lungs: Clear to auscultation bilaterally. Normal effort Abdomen: Soft/nontender. abdomen Less distended today. Positive bowel sounds. Extremities: No clubbing/cyanosis. 2-3+ bilateral pitting edema Behavior: Appropriate, cooperative Results & Data Results & Data Vital Signs (Past 12 Hours) Vital Signs Temp Pulse Pulse Resp BP Pulse Ox O2 Del Method 10/31/22 15:10 36.7 C 81 18 102/64 94 Room Air 10/31/22 13:12 36.7 C 80 18 99/63 L 94 Room Air 10/31/22 13:13 36.8 C 88 18 105/70 95 Room Air 10/31/22 11:49 36.9 C 96 H 18 89/54 L 93 Room Air 10/31/22 07:49 Room Air 10/31/22 07:18 90 10/31/22 07:09 36.7 C 90 18 92/57 L 94 Room Air PG Care Time/CCT Total # of Minutes Spent Total Time Spent with Patient: Total time spent is greater than 50% in coordination of care (as documented) at patient's floor/unit and/or counseling patient: Coding Level of Care Code 41572 SUB INP/OBS CARE 2/35MIN Diagnoses Weakness R53.1 Cirrhosis of liver K70.30 Ascites presence: unspecified Hepatic cirrhosis type: alcoholic cirrhosis CKD (chronic kidney disease), stage III N18.3 GERD (gastroesophageal reflux disease) K21.9 Esophageal varices determined by endoscopy I85.00 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 K75.81; K74.60 Pancytopenia D61.818 Portal hypertensive gastropathy K76.6; K31.89 PSVT (paroxysmal supraventricular tachycardia) I47.1 (2) Cirrhosis of liver Ascites presence: unspecified Hepatic cirrhosis type: alcoholic cirrhosis Qualified Code(s): K70.30 - Alcoholic cirrhosis of liver without ascites
[2022-10-31] MEDS: PARoxetine HCL 10 MG TAB PO SCH (21:10)
[2022-11-01] MEDS: MIDODRINE HCL 10 MG TAB PO SCH ×3 (06:32→17:05)
[2022-11-01 07:15] LABS: Hematocrit (blood only) 22.6 % (42.0-52.0); Hemoglobin 7.7 g/dl (14.0-18.0); Mean Corpuscular Hemoglobin 35.3 pg (25.0-34.0); Mean Corpuscular Hgb Conc 34.1 g/dL (32.0-36.0); Mean Corpuscular Volume 103.7 fL (80.0-100.0); Mean Platelet Volume 8.7 fL (9.4-12.4); Platelet Count 33 K/uL (130-400); RDW Coefficient of Variation 23.3 % (11.5-14.5); RDW Standard Deviation 84.8 fL (36.4-46.3); Red Blood Count 2.18 M/uL (4.70-6.10)
[2022-11-01 07:40] LABS: BUN Creatinine Ratio 9.7 (10-20); Bilirubin Direct 1.9 mg/dl (0-0.2); Bilirubin,Total 6.2 mg/dl (0.2-1.0); Calcium 9.9 mg/dl (8.6-10.3); Creatinine Clr Calc Pharmacy 30.2 ml/min; Est GFR (African American) 24.7 ml/min; Est GFR (Non-African American) 21.3 ml/min; Potassium 3.5 mmol/L (3.5-5.1); Total Protein 4.8 gm/dl (6.0-8.3)
[2022-11-01] MEDS: ALBUMIN 25% 25 GM/100 ML VIAL IV SCH (08:11)
[2022-11-01] MEDS: METOPROLOL TARTRATE 25 MG TAB PO SCH ×2 (08:14→20:52)
[2022-11-01] MEDS: rifAXIMin 550 MG TABLET PO SCH ×2 (08:14→20:54)
[2022-11-01] MEDS: SPIRONOLACTONE 100 MG TAB PO SCH (08:14)
[2022-11-01] MEDS: FUROSEMIDE 40 MG TAB PO SCH (08:15)
[2022-11-01] MEDS: CHOLECALCIFEROL 1,000 UNITS 25 MCG TAB PO SCH (08:15)
[2022-11-01] MEDS: PANTOprazole 40 MG TAB PO SCH ×2 (08:15→20:55)
[2022-11-01] MEDS: SUCRALFATE 1 GM/10 ML UDC PO SCH ×2 (08:15→20:56)
[2022-11-01] MEDS: LACTULOSE SYRUP 20 GM/30 ML UDC PO SCH ×3 (08:16→20:52)
--- NOTE | 2022-11-01 08:30 | Nephrology Progress Note ---
Date of Service November 01, 2022 Assessment & Plan (1) COLLIN (acute kidney injury): Plan: * COLLIN on CKD likely reflective of 3rd spacing of volume related to cirrhosis and hypoalbuminemia * Cr has improved from 3.01 to 2.89 following colloid and PRBC administration * Continue Midodrine therapy * Continue Furosemide 40 mg po qAM and Spironolactone 100 mg po daily to help mobilize peripheral edema * 10/28/[address] report reviewed - no hydronephrosis * Monitor PRP, UO (2) CKD (chronic kidney disease), stage III: Plan: * Baseline Cr 2.0-2.5. Has underlying microvascular disease (3) Anemia: Plan: * Hgb improved from 7.3 to 7.7 following 1 unit PRBC 10/31/22 * H/o GAVE with UGI bleed * Recommend transfusion to maintain Hgb > 8.0 (4) Cirrhosis of liver: Plan: * Admitted w/ hypothermia, mild abdominal discomfort. Recommend consultation w/ GI. Consider diagnostic/therapeutic paracentesis (5) Hypotension: Plan: * Midodrine and colloid therapy as outlined above Admission and Anticipated Discharge Date Admission Date: October 28, 2022 Subjective Mr. Quiñonez was evaluated in his hospital room this morning. His abdominal discomfort is subjectively improved following paracentesis. He did receive one unit PRBC yesterday. Review of Systems Constitutional: + weakness; no fever Eyes: no problem reported Ear, Nose, Mouth, Throat: no problem reported Respiratory: no cough and no dyspnea Cardiovascular: + edema; no chest pain Gastrointestinal: + abdominal pain, + nausea, + vomiting and + diarrhea/loose stools Physical Exam Constitutional: not in distress Eyes: sclerae not anicteric ENMT: external ear and nose normal, oropharynx normal Neck: trachea midline, no thyromegaly Respiratory: normal respiratory effort, lungs clear to auscultation Cardiovascular: Rate/Rhythm: regular rate and regular rhythm Extremities: + edema (2+ pretibial pitting edema) Gastrointestinal (Abdomen): Inspection/Auscultation: + abdomen distended Percussion/Palpation: + abdomen tender, abdomen soft and + fluid wave; no guarding Neurologic: Speech / Cognition: normal speech and normal cognition Results & Data Vital Signs (Past 12 Hours) Vital Signs Temp Pulse Pulse Resp BP BP Pulse Ox 11/01/22 07:46 37.1 C 88 20 118/59 L 97 11/01/22 02:52 37.4 C 92 H 18 103/64 96 10/31/22 22:51 98 H 10/31/22 22:50 36.9 C 96 H 18 101/61 94 10/31/22 20:59 37.1 C 92 H 18 113/72 98 O2 Del Method O2 Flow Rate 11/01/22 07:46 Room Air 11/01/22 02:52 Room Air 10/31/22 22:51 10/31/22 22:50 Room Air 10/31/22 20:59 0 Laboratory Results Laboratory Tests 11/01/22 11/01/22 06:56 06:56 WBC 5.70 Hgb 7.7 L Hct 22.6 L Plt Count 33 L Sodium 141 Potassium 3.5 Chloride 109 H Carbon Dioxide 27 BUN 28 H Creatinine 2.89 H Glucose 100 H Laboratory Tests 11/01/22 06:56 Albumin 3.0 L PG Care Time/CCT Total # of Minutes Spent Total Time Spent with Patient: Total time spent is greater than 50% in coordination of care (as documented) at patient's floor/unit and/or counseling patient: Coding Level of Care Code 65865 SUB INP/OBS CARE 3/50MIN Diagnoses COLLIN (acute kidney injury) N17.9 CKD (chronic kidney disease), stage III N18.3 Anemia D64.9 Cirrhosis of liver K70.30 Ascites presence: unspecified Hepatic cirrhosis type: alcoholic cirrhosis Hypotension I95.9 (4) Cirrhosis of liver Ascites presence: unspecified Hepatic cirrhosis type: alcoholic cirrhosis Qualified Code(s): K70.30 - Alcoholic cirrhosis of liver without ascites
[2022-11-01 09:41] LABS: INR 2.3 (0.9-1.1); Prothrombin Time 23.5 Seconds (9.0-12.0)
--- NOTE | 2022-11-01 11:00 | Gastroenterology Progress Note ---
Date of Service November 01, 2022 Assessment & Plan (1) Cirrhosis of liver: (2) COLLIN (acute kidney injury): (3) Edema: Plan: Pt is a 67 yo male w hx of SERRANO cirrhosis, GAVE bleeding, ascites, CKD who presented w volume overload and COLLIN. MELD 33 (rise in Tbili and INR). He underwent us guided paracentesis w 1L ascites fluid removal, no signs of SBP per fluid analysis. He has cumulative -1.4L output so far. He is c/o LUQ abd pain and painful urination, felt similar to when he had kidney stones. Noted nonobstructing bilateral nephrolithiasis on CT scan. He does have history of UTIs. - Repeat UA + urine culture - CT abd/pelvis wo contrast - Vit K 10mg IV x 3 days - Monitor blood ct and transfuse prn - Diuretics per Nephrology: Lasix 40mg + Spironolactone 100mg - Midodrine 20mg TID - 2g Na diet - No APAP >2g a day - F/U w Hepatology and C Transplant teams upon DC Admission and Anticipated Discharge Date Admission Date: October 28, 2022 Supervising Physician Co-Signing Physician Notes I personally saw and evaluated the patient on 11/01/2022 with BRENDA Chanel and agree with her findings and plan of care. 67 y/o M with history of decompensated SERRANO cirrhosis c/b ascites, HE, varices, recurrent PHG and GAVE bleeding, and anasarca as well as CKD admitted with weakness. On admission found to have COLLIN on CKD with Cr of 3.0 from baseline of 2.2-2.5. MELD-Na is 28 on admission. Fluid studies from paracentesis without evidence SBP. On exam he is AAOx3 but is slower to respond to questions, no asterixis, moderate ascites, 3+ LE edema, diffuse abdominal tenderness to palpation. Today patient is complaining of worsening abdominal pain, flank pain, and dysuria. He states this abdominal pain is new for him and feels like when he has had kidney stones in the past. He is tender to even mild palpation diffusely. Infectious work up to date negative including urine culture and blood cultures. Would repeat UA and culture given dysuria. His bilirubin has jumped to 6 today and INR up to 2.3 concerning for worsening hepatic decompensation. MELD is up to 33 today. Would repeat a CT abdomen wo contrast given worsening abdominal pain. Continue midodrine. 2 gram sodium restricted diet. IV Vitamin K 10 mg x3 days. Daily MELD labs.Continue lactulose and rifaximin and titrate for 3-4 soft bowel movements/daily. He is being worked up for liver transplant as outpatient. Strongly recommend PT/OT working with him in hospital to prevent worsening weakness which will decrease his ability to be placed on the transplant list once his eval is complete. Luda Espitia, Gastroenterology and Hepatology Subjective Patient is complaining of left upper quadrant abdominal pain. This seems to be new compared to his chronic abdominal pain symptoms. He also complains of burning pain on urination. [place] similar when he had kidney stones. No nausea or vomiting but appetite is low. Denies any chest pain or shortness of breath. Review of Systems Review of Systems: All systems reviewed & are unremarkable except as noted in HPI & below Physical Exam Constitutional: + frail appearing, well groomed, cooperative and comfortable Eyes: PERRL, conjunctivae normal, anicteric sclerae ENMT: external ear and nose normal, oropharynx normal Cardiovascular: RRR, no murmur, no edema Gastrointestinal (Abdomen): normal bowel sounds, soft, nontender, no hepatosplenomegaly Skin: no rashes, warm and dry no jaundice Neurologic: Motor/Sensory: no asterixis Psychiatric: A+Ox3, euthymic affect Lymphatic: + lymphedema (anasarca, +2 pitting edema bilateral LE ) Results & Data Vital Signs (Past 12 Hours) Vital Signs Temp Pulse Pulse Resp BP Pulse Ox O2 Del Method 11/01/22 08:00 106 H 11/01/22 07:46 37.1 C 88 20 118/59 L 97 Room Air 11/01/22 02:52 37.4 C 92 H 18 103/64 96 Room Air (1) Cirrhosis of liver Ascites presence: unspecified Hepatic cirrhosis type: alcoholic cirrhosis Qualified Code(s): K70.30 - Alcoholic cirrhosis of liver without ascites (3) Edema Edema type: unspecified Qualified Code(s): R60.9 - Edema, unspecified
[2022-11-01] MEDS ORDERED: PHYTONADIONE 5 MG in DEXTROSE 5% 50 ML IV ONE (12:00)
[2022-11-01] MEDS: PHYTONADIONE 10 MG in DEXTROSE 5% 50 ML IV SCH (12:25)
[2022-11-01 13:55] LABS: Appearance Urine Clear (Clear); Bacteria Urine Automated 2+ (Negative); Bilirubin Urine Negative (Negative); Blood Urine 1+ (Negative); Cast Urine Automated 0 /lpf (0-5); Color Urine Yellow; Glucose Urine UA Negative (Negative); Ketones Urine Negative (Negative); Leukocyte Esterase Urine 1+ (Negative); Nitrite Urine Positive (Negative); Protein Urine Negative (Negative); Specific Gravity Urine 1.006 (1.000-1.030); Urobilinogen Urine Negative (Negative)
--- NOTE | 2022-11-01 14:14 | CT Scan Report ---
ABDOMEN AND PELVIS CT WITHOUT CONTRAST CT DOSE: 1863.26 mGy.cm HISTORY: abdominal pain; ro kidney stones, intraad bleed TECHNIQUE: Multiaxial CT images of the abdomen and pelvis were performed without contrast. A dose lo wering technique was utilized adhering to the principles of ALARA. COMPARISON STUDY: Abdomen and pelvis CT 10/28/2022. FINDINGS: Interval development of trace bilateral pleural effusions. No pneumoperitoneum. No pneumato sis. No acute fractures identified. Anemia again noted. Moderate to severe body wall edema which has progressed in the interval. Gastric wall thickening, unchanged. Moderate ascites is similar to the pr ior study. Cirrhotic liver with mild splenomegaly and abdominal varicosities, unchanged. Cholecystect toni. The adrenal glands are unremarkable. Bilateral renal calculi again noted. No ureteral calculi. N o hydronephrosis. 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 No retroperitoneal lymphadeno thomas. Mild bladder wall thickening, unchanged. This is likely chronic. No bowel wall thickening or o bstruction. No retroperitoneal hematoma identified. Appendectomy. Atrophic pancreas, unchanged. IMPRESSION: 1. No evidence for bowel obstruction. 2. Moderate to severe body wall edema with moderate ascites. This is slightly progressed in the inter ivone. 3. Bilateral nephrolithiasis. No hydronephrosis. 4. Gastric wall thickening, unchanged. 5. 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 6. Additional findings as described above. ACT 112: Negative or not required by law. Electronically signed by: Joaquín Bolden M.D. 11/01/2022 2:12 PM
--- NOTE | 2022-11-01 16:11 | Hospitalist Progress Note ---
Date of Service November 01, 2022 Assessment & Plan (1) Weakness: Plan: Weakness, fluid retention 2/2 cirrhosis. No evidence of acute CHF Previously on Lasix, this was discontinued with low blood pressures previously Patient pursuing transplant list placement as an outpatient No hypoxia Suspect weakness and fluid retention due to cirrhosis patient is being treated with 40 mg of Lasix and 100 mg of Aldactone. His blood pressure is Better today on midodrine 20 mg 3 times daily Continue lactulose, rifaximin. Patient says that he had 2 bowel movements already. Goal is for 3-5 bowel movements per day Creatinine slightly better at 2.8 today Nephrology and GI on board Patient had paracentesis done 10/31. Fluid analysis results are not impressive for SBP MELD score 28 COLLIN Creatinine stable at 3 today nephrology involved continue Lasix and Aldactone in 2:5 ratio Ascites status post diagnostic and therapeutic paracentesis Fluid analysis is not suggestive of SBP Recent GI bleed Last hospitalization with GI bleed requiring PPI, octreotide. Stabilized and was able to be discharged Hemoglobin last 8.4 on discharge today 7.3 Ordered transfusion No evidence of acute bleeding on admission Trend daily Macrocytic anemia Uptrending hemoglobin, no acute bleeding. Stable, trended daily GAVE Continue PPI Hypothyroidism Free T4 normal History of paroxysmal SVT Metoprolol continued. EKG on admission is sinus tachycardia with PACs, no ST segment/T wave changes DVT prophylaxis: Pharmacal prophylaxis deferred due to history of recurrent severe GI bleeds. SCDs Diet: Low-salt Disposition: PCU due to COLLIN, volume depletion, and history of SVT CODE STATUS: DNR/DNI (2) Cirrhosis of liver: (3) CKD (chronic kidney disease), stage III: (4) GERD (gastroesophageal reflux disease): (5) Esophageal varices determined by endoscopy: (6) 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: (7) Pancytopenia: (8) Portal hypertensive gastropathy: (9) PSVT (paroxysmal supraventricular tachycardia): Admission and Anticipated Discharge Date Admission Date: October 28, 2022 Subjective patient is slightly drowsy. He he says that his leg swelling is improving and his belly pain Review of Systems Review of Systems: All systems reviewed & are unremarkable except as noted in Subjective Physical Exam Physical Exam: general: Awake, conversant Heart: S1, S2/regular rate and rhythm, no murmur rubs or gallops Lungs: Clear to auscultation bilaterally. Normal effort Abdomen: Soft/nontender. abdomen Less distended today. Positive bowel sounds. Extremities: No clubbing/cyanosis. 2-3+ bilateral pitting edema Behavior: Appropriate, cooperative Results & Data Results & Data Vital Signs (Past 12 Hours) Vital Signs Temp Pulse Pulse Resp BP Pulse Ox O2 Del Method 11/01/22 08:00 106 H 11/01/22 07:46 37.1 C 88 20 118/59 L 97 Room Air Laboratory Results Abnormal lab results 10/31/22 10/31/22 11/01/22 Range/Units 15:39 16:10 06:56 RBC 2.18 L (4.70-6.10) M/uL Hgb 7.7 L (14.0-18.0) g/dl Hct 22.6 L (42.0-52.0) % MCV 103.7 H (80.0-100.0) fL MCH 35.3 H (25.0-34.0) pg RDW Std Deviation 84.8 H (36.4-46.3) fL RDW Coeff of Miguel 23.3 H (11.5-14.5) % Plt Count 33 L (130-400) K/uL MPV 8.7 L (9.4-12.4) fL PT (9.0-12.0) Seconds INR (0.9-1.1) Chloride (98-107) mmol/L BUN (6-23) mg/dl Creatinine (0.6-1.4) mg/dl BUN/Creatinine Ratio (10-20) Glucose (70-99(Fasting)) mg/dl Total Bilirubin (0.2-1.0) mg/dl Direct Bilirubin (0-0.2) mg/dl Total Protein (6.0-8.3) gm/dl Albumin 3.1 L (3.4-5.0) gm/dl Urine Blood (Negative) Urine Nitrite (Negative) Ur Leukocyte Esterase (Negative) Urine WBC (Auto) (0-5) /hpf Urine RBC (Auto) (0-4) /hpf U Epithel Cells (Auto) (0-5) /lpf Urine Bacteria (Auto) (Negative) Crossmatch See Detail 11/01/22 11/01/22 11/01/22 Range/Units 06:56 08:46 13:28 RBC (4.70-6.10) M/uL Hgb (14.0-18.0) g/dl Hct (42.0-52.0) % MCV (80.0-100.0) fL MCH (25.0-34.0) pg RDW Std Deviation (36.4-46.3) fL RDW Coeff of Miguel (11.5-14.5) % Plt Count (130-400) K/uL MPV (9.4-12.4) fL PT 23.5 H (9.0-12.0) Seconds INR 2.3 H (0.9-1.1) Chloride 109 H (98-107) mmol/L BUN 28 H (6-23) mg/dl Creatinine 2.89 H (0.6-1.4) mg/dl BUN/Creatinine Ratio 9.7 L (10-20) Glucose 100 H (70-99(Fasting)) mg/dl Total Bilirubin 6.2 H (0.2-1.0) mg/dl Direct Bilirubin 1.9 H (0-0.2) mg/dl Total Protein 4.8 L (6.0-8.3) gm/dl Albumin 3.0 L (3.4-5.0) gm/dl Urine Blood 1+ H (Negative) Urine Nitrite Positive A (Negative) Ur Leukocyte Esterase 1+ H (Negative) Urine WBC (Auto) 10-30 H (0-5) /hpf Urine RBC (Auto) 5-10 H (0-4) /hpf U Epithel Cells (Auto) 5-10 H (0-5) /lpf Urine Bacteria (Auto) 2+ H (Negative) Crossmatch Diagnostic Findings Abdomen/Pelvis CT 11/01/22 11:[address] WITHOUT CONTRAST CT DOSE: 1863.26 mGy.cm HISTORY: abdominal pain; ro kidney stones, intraad bleed TECHNIQUE: Multiaxial CT images of the abdomen and pelvis were performed without contrast. A dose lowering technique was utilized adhering to the principles of ALARA. COMPARISON STUDY: Abdomen and pelvis CT 10/28/2022. FINDINGS: Interval development of trace bilateral pleural effusions. No pneumoperitoneum. No pneumatosis. No acute fractures identified. Anemia again noted. Moderate to severe body wall edema which has progressed in the interval. Gastric wall thickening, unchanged. Moderate ascites is similar to the prior study. Cirrhotic liver with mild splenomegaly and abdominal varicosities, unchanged. Cholecystectomy. The adrenal glands are unremarkable. Bilateral renal calculi again noted. No ureteral calculi. No hydronephrosis. 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 No retroperitoneal lymphadenopathy. Mild bladder wall thickening, unchanged. This is likely chronic. No bowel wall thickening or obstruction. No retroperitoneal hematoma identified. Appendectomy. Atrophic pancreas, unchanged. IMPRESSION: 1. No evidence for bowel obstruction. 2. Moderate to severe body wall edema with moderate ascites. This is slightly progressed in the interval. 3. Bilateral nephrolithiasis. No hydronephrosis. 4. Gastric wall thickening, unchanged. 5. 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 6. Additional findings as described above. ACT 112: Negative or not required by law. Electronically signed by: Joaquín Bolden M.D. 11/01/2022 2:12 PM PG Care Time/CCT Total # of Minutes Spent Total Time Spent with Patient: Total time spent is greater than 50% in coordination of care (as documented) at patient's floor/unit and/or counseling patient: Coding Level of Care Code 37182 SUB INP/OBS CARE 2/35MIN Diagnoses Weakness R53.1 Cirrhosis of liver K70.30 Ascites presence: unspecified Hepatic cirrhosis type: alcoholic cirrhosis CKD (chronic kidney disease), stage III N18.3 GERD (gastroesophageal reflux disease) K21.9 Esophageal varices determined by endoscopy I85.00 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 K75.81; K74.60 Pancytopenia D61.818 Portal hypertensive gastropathy K76.6; K31.89 PSVT (paroxysmal supraventricular tachycardia) I47.1 (2) Cirrhosis of liver Ascites presence: unspecified Hepatic cirrhosis type: alcoholic cirrhosis Qualified Code(s): K70.30 - Alcoholic cirrhosis of liver without ascites
[2022-11-01] MEDS: PARoxetine HCL 10 MG TAB PO SCH (20:55)
[2022-11-02] MEDS: MIDODRINE HCL 10 MG TAB PO SCH ×3 (06:15→18:17)
[2022-11-02] MEDS: rifAXIMin 550 MG TABLET PO SCH ×2 (07:35→20:02)
[2022-11-02] MEDS: SUCRALFATE 1 GM/10 ML UDC PO SCH ×2 (07:35→20:03)
[2022-11-02] MEDS: PANTOprazole 40 MG TAB PO SCH ×2 (07:35→20:03)
[2022-11-02] MEDS: SPIRONOLACTONE 100 MG TAB PO SCH (07:35)
[2022-11-02] MEDS: CHOLECALCIFEROL 1,000 UNITS 25 MCG TAB PO SCH (07:36)
[2022-11-02] MEDS: LACTULOSE SYRUP 20 GM/30 ML UDC PO SCH ×3 (07:36→19:58)
[2022-11-02] MEDS: FUROSEMIDE 40 MG TAB PO SCH (07:36)
[2022-11-02] MEDS: METOPROLOL TARTRATE 25 MG TAB PO SCH ×2 (07:36→19:59)
--- NOTE | 2022-11-02 08:52 | Nephrology Progress Note ---
Date of Service November 02, 2022 Assessment & Plan (1) COLLIN (acute kidney injury): Plan: * COLLIN on CKD likely reflective of 3rd spacing of volume related to cirrhosis and hypoalbuminemia * Cr has stabilized at 2.9 (baseline 2-2.5) * Continue Furosemide 40 mg po qAM and Spironolactone 100 mg po daily to help mobilize peripheral edema * Recommend 1500 mg/day NaCl restricted diet * Target 1- 1.5L diuresis/day. Patient is net 2.7 L diuresis since admission * Continue Midodrine but consider weaning dose to maintain SBP > 90 * 11/01/[address] report reviewed - no hydronephrosis * Monitor PRP, UO (2) CKD (chronic kidney disease), stage III: Plan: * Baseline Cr 2.0-2.5. Has underlying microvascular disease (3) Anemia: Plan: * Hgb improved from 7.3 to 8.4 following 2 unit PRBC this hospitalization * H/o GAVE with UGI bleed * Recommend transfusion to maintain Hgb > 8.0 (4) Cirrhosis of liver: Plan: * Admitted w/ hypothermia, mild abdominal discomfort. 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 Quiñonez was evaluated in his hospital room this morning. His abdominal discomfort is subjectively improved. He voices no new medical concerns Review of Systems Constitutional: + weakness; no fever Eyes: no problem reported Ear, Nose, Mouth, Throat: no problem reported Respiratory: no cough and no dyspnea Cardiovascular: + edema; no chest pain Gastrointestinal: no abdominal pain Physical Exam Constitutional: not in distress Eyes: sclerae not anicteric ENMT: external ear and nose normal, oropharynx normal Neck: trachea midline, no thyromegaly Respiratory: normal respiratory effort, lungs clear to auscultation Cardiovascular: Rate/Rhythm: regular rate and regular rhythm Extremities: + edema (1+ pretibial pitting edema) Gastrointestinal (Abdomen): Inspection/Auscultation: + abdomen distended Percussion/Palpation: abdomen soft; abdomen nontender and no guarding Neurologic: Speech / Cognition: normal speech and normal cognition Results & Data Vital Signs (Past 12 Hours) Vital Signs Temp Pulse Pulse Resp BP Pulse Ox O2 Del Method 11/02/22 07:51 36.9 C 77 20 97/58 L 97 Room Air 11/02/22 03:06 36.4 C L 121 H 20 92/56 L 97 Room Air 11/02/22 00:00 83 11/01/22 23:00 36.5 C 81 20 99/67 L 97 Room Air Laboratory Results Laboratory Tests 11/02/22 11/02/22 10:24 10:31 WBC 10.13 Hgb 8.4 L Hct 25.1 L Plt Count 39 L Sodium 139 Potassium 2.8 L Chloride 106 Carbon Dioxide 25 BUN 31 H Creatinine 2.91 H Glucose 162 H Diagnostic Findings 11/01/[address]: 1. No evidence for bowel obstruction. 2. Moderate to severe body wall edema with moderate ascites. This is slightly progressed in the interval. 3. Bilateral nephrolithiasis. No hydronephrosis. 4. Gastric wall thickening, unchanged. 5. 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 PG Care Time/CCT Total # of Minutes Spent Total Time Spent with Patient: Total time spent is greater than 50% in coordination of care (as documented) at patient's floor/unit and/or counseling patient: Coding Level of Care Code 62876 SUB INP/OBS CARE 3/50MIN Diagnoses COLLIN (acute kidney injury) N17.9 CKD (chronic kidney disease), stage III N18.3 Anemia D64.9 Cirrhosis of liver K70.30 Ascites presence: unspecified Hepatic cirrhosis type: alcoholic cirrhosis (4) Cirrhosis of liver Ascites presence: unspecified Hepatic cirrhosis type: alcoholic cirrhosis Qualified Code(s): K70.30 - Alcoholic cirrhosis of liver without ascites
[2022-11-02] MEDS: PHYTONADIONE 10 MG in DEXTROSE 5% 50 ML IV SCH (10:14)
--- NOTE | 2022-11-02 10:30 | Gastroenterology Progress Note ---
Date of Service November 02, 2022 Assessment & Plan (1) Cirrhosis of liver: (2) COLLIN (acute kidney injury): (3) Edema: Plan: Pt is a 67 yo male w hx of SERRANO cirrhosis, GAVE bleeding, ascites, CKD who presented w volume overload and COLLIN. MELD 33 (rise in Tbili and INR). He underwent us guided paracentesis w 1L ascites fluid removal, no signs of SBP per fluid analysis. He has cumulative -1.4L output so far. He is c/o LUQ abd pain and painful urination, felt similar to when he had kidney stones. Noted nonobstructing bilateral nephrolithiasis on CT scan. He does have history of UTIs. -AM labs: CBC, CMP, PT/INR pending - Repeat UA with possible infection, will obtain urine culture. - Vit K 10mg IV x 2 more days - Monitor blood ct and transfuse prn - Diuretics per Nephrology: Lasix 40mg + Spironolactone 100mg - Midodrine 20mg TID - 2g Na diet - No APAP >2g a day - [place] [facility] [place] -Please recall GI over the weekend for any questions or concerns Admission and Anticipated Discharge Date Admission Date: October 28, 2022 Supervising Physician Co-Signing Physician Notes I saw and evaluated the patient with Ms. Alcocer He does have a long history of liver disease and is presently under evaluation by my partner for suitability of liver transplantation. With regard to recommendations please see the above recommendations from the specialist. Please call with any additional questions or concerns, GI to sign off. Subjective Patient reports that he has a little bit more energy today. Still having some abdominal discomfort, appetite poor, no nausea or vomiting. Review of Systems Review of Systems: All systems reviewed & are unremarkable except as noted in HPI & below Physical Exam Constitutional: + frail appearing, well groomed, cooperative and comfortable Eyes: Icteric sclera, PERRLA ENMT: external ear and nose normal, oropharynx normal Respiratory: No respiratory distress or accessory muscles use noted. Diminished bilateral bases. Cardiovascular: RRR, no murmur, no edema Gastrointestinal (Abdomen): normal bowel sounds, soft, nontender, no hepato splenomegaly Skin: no rashes, warm and dry + jaundice Neurologic: Motor/Sensory: no asterixis Psychiatric: A+Ox3, euthymic affect Lymphatic: + lymphedema (anasarca, non- pitting edema bilateral LE ) Results & Data Vital Signs (Past 12 Hours) Vital Signs Temp Pulse Pulse Resp BP Pulse Ox O2 Del Method 11/02/22 07:51 36.9 C 77 20 97/58 L 97 Room Air 11/02/22 03:06 36.4 C L 121 H 20 92/56 L 97 Room Air 11/02/22 00:00 83 11/01/22 23:00 36.5 C 81 20 99/67 L 97 Room Air (1) Cirrhosis of liver Ascites presence: unspecified Hepatic cirrhosis type: alcoholic cirrhosis Qualified Code(s): K70.30 - Alcoholic cirrhosis of liver without ascites (3) Edema Edema type: unspecified Qualified Code(s): R60.9 - Edema, unspecified
[2022-11-02 11:13] LABS: INR 2.1 (0.9-1.1); Prothrombin Time 22.2 Seconds (9.0-12.0)
[2022-11-02 11:15] LABS: Basophils # (auto) 0.06 K/uL (0.00-0.20); Basophils % (auto) 0.6 %; Eosinophils # (auto) 0.32 K/uL (0.00-0.50); Eosinophils % (auto) 3.2 %; Hematocrit (blood only) 25.1 % (42.0-52.0); Hemoglobin 8.4 g/dl (14.0-18.0); Immature Granulocytes # (auto) 0.06 K/uL (0.01-0.20); Immature Granulocytes % (auto) 0.6 %; Lymphocytes # (auto) 0.84 K/uL (1.20-3.40); Lymphocytes % (auto) 8.3 %; Mean Corpuscular Hemoglobin 35.3 pg (25.0-34.0); Mean Corpuscular Hgb Conc 33.5 g/dL (32.0-36.0); Mean Corpuscular Volume 105.5 fL (80.0-100.0); Mean Platelet Volume 9.2 fL (9.4-12.4); Monocytes # (auto) 0.89 K/uL (0.11-0.59); Monocytes % (auto) 8.8 %; Neutrophils # (auto) 7.96 K/uL (1.40-6.50); Neutrophils % (auto) 78.5 %; Platelet Count 39 K/uL (130-400); RDW Coefficient of Variation 23.2 % (11.5-14.5); RDW Standard Deviation 87.6 fL (36.4-46.3); Red Blood Count 2.38 M/uL (4.70-6.10); White Blood Count 10.13 K/ul (4.8-10.8)
[2022-11-02 11:16] LABS: Albumin Globulin Ratio 1.3 (0.9-2); Albumin Level 2.9 gm/dl (3.4-5.0); BUN Creatinine Ratio 10.7 (10-20); Bilirubin,Total 7.1 mg/dl (0.2-1.0); Calcium 9.7 mg/dl (8.6-10.3); Creatinine Clr Calc Pharmacy 29.8 ml/min; Est GFR (African American) 24.5 ml/min; Est GFR (Non-African American) 21.2 ml/min; Globulin 2.2 gm/dl (2.5-4.0); Potassium 2.8 mmol/L (3.5-5.1); Total Protein 5.1 gm/dl (6.0-8.3)
[2022-11-02 11:40] LABS: Anisocytosis Present; Echinocytes 1+; Polychromasia 1+
[2022-11-02] MEDS: POTASSIUM CHLORIDE / WTR 10 MEQ/100 ML PLCT IV SCH ×3 (13:46→16:44)
--- NOTE | 2022-11-02 15:06 | Palliative Care Consultation ---
Date of Consultation November 02, 2022 Assessment & Plan (1) Palliative care encounter: I spoke with Mr. Quiñonez at bedside. 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 He tells me that what he most enjoys is hunting, fishing and cooking. His two years ago just days after their 50th wedding anniversary. When I asked him how he was doing, he said "not very good, they tell me I'm dying". He tells me that he is not afraid to . He has been thinking about this a lot since the of his . They had multiple discussions prior to her and he feels that when is dying time comes, he's ok with that, but that he isn't ready to go today. His of cardiac arrest and was full code He is quite clear that he does not want that for himself. His hope is to in his sleep. The things that he most wants to do are hunting or fishing with his son and grandchildren. He has been collecting family recipes and writing them out to give to his family when he is gone. He does want to continue current level of care but would not want escalation of care if he were not able to do the things that are important to him. He would want his son, Renny, to be his surrogate decision maker and has talked with Renny about this. History of Present Illness Reason for Consultation: goals of care Requesting Physician: Dr. Pennington Attending Physician: Leyla Pennington MD History of Present Illness 67 yo gentleman with cirrhosis secondary to SERRANO and COLLIN who presented with volume overload. He has a MELD score of 28. This is his third hospitalization since August, including one stay in September with GAVE and GI bleeding. He had been at [facility] for rehab and was discharged home for about two days before presenting with edema, weakness and shortness of breath. He has been on furosemide and spironolactone and he has also had paracentesis for 1 L of ascites removed on 10/31. He reports feeling comfortable at this time and his main complaint is weakness. He lives at home and his son and sister take turns staying with him and taking care of him. Allergies Allergy/AdvReac Type Severity Reaction Status Date / Time tamsulosin Allergy Intermediate HIVES Verified 10/28/22 17:07 etanercept [From Enbrel] AdvReac Intermediate Increased Verified 10/28/22 17:07 infections Home Medications Medication Instructions Recorded Confirmed Type ondansetron HCl 4 mg tablet 4 mg PO Q8H PRN Nausea And 08/08/22 10/28/22 Rx Vomiting #30 tabs lactulose 10 gram/15 mL oral 20 g (30 mL) PO DAILY #946 mL 08/10/22 10/28/22 Rx solution furosemide 20 mg tablet 20 mg PO DAILY PRN edema #14 tabs 09/07/22 10/28/22 Rx midodrine 10 mg tablet 15 mg PO TID #135 tabs 09/14/22 10/28/22 Rx Walker #1 ea 09/21/22 Rx paroxetine HCl 10 mg tablet 10 mg PO HS 09/23/22 10/28/22 History pantoprazole 40 mg tablet,delayed 40 mg PO BID #60 tabs 09/27/22 10/28/22 Rx release rifaximin 550 mg tablet (Xifaxan) 550 mg PO BID #60 tabs 09/27/22 10/28/22 Rx metoprolol tartrate 25 mg tablet 12.5 mg PO BID #0 tabs 10/03/22 10/28/22 Rx acetaminophen 325 mg tablet 650 mg PO QID PRN Fever Or Pain 10/18/22 10/28/22 History (Tylenol) cholecalciferol (vitamin D3) 50 2,000 unit PO QAM 10/28/22 10/28/22 History mcg (2,000 unit) capsule (Vitamin D3) sucralfate 100 mg/mL oral 10 ml PO BID 10/28/22 10/28/22 History suspension fludrocortisone 0.1 mg tablet 0.1 mg PO BID #180 tabs 10/30/22 Rx Patient History Medical History Anemia Ascites Calculus of kidney Cervical disc disease CKD (chronic kidney disease), stage III Depression Esophageal varices determined by endoscopy GAVE (gastric antral vascular ectasia) Per records GERD (gastroesophageal reflux disease) History of GI bleed discharged from [facility] 06/10/22: borderline hemorrhagic shock-upper GI bleed suspected to be d/t GAVE-received 1 unit of PRBC History of herniated intervertebral disc lumbar area History of SCC (squamous cell carcinoma) of skin S/p removal- follows with derm Hx of blood clots 06/2021 @ [facility]- pt reports blood clot in left arm around IV site after being discharged from hospital- no meds due to current blood loss issue- warm compresses to site per pt- 2 ultrasounds done - no current issues Hx of upper gastrointestinal hemorrhage recent hospitalization at [facility] 06/07/2022 Hyperkalemia Hypothyroidism 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 current work-up for planned liver transplant per [facility] transplant clinic records Lumbar disc disease Oral mucositis On mouthwash daily- no recent issues Pancytopenia Portal hypertensive gastropathy Post-traumatic urethral stricture Psoriasis Psoriatic arthritis PVT (portal vein thrombosis) denies Spinal stenosis EPIDURAL INJECTIONS IN PAST FOR PAIN RELIEF TMJ arthralgia Urinary retention Urinary tract infection Wide-complex tachycardia ON CARDVEDILOL-F/U DR VANESSA LAST VISIT<1 YR AGO Surgical History H/O foot surgery excision of neuroma b/l feet History of appendectomy History of arthroscopy RT KNEE History of cataract surgery RT/LEFT History of cholecystectomy History of esophagogastroduodenoscopy (EGD) last 03/21/22 @ [facility] 02/08/22 Dr. Sara Cloud- EGD- Grade I esophageal varices, Portal hypertensive gastropathy History of herniorrhaphy right inguinal History of lithotripsy History of liver biopsy History of repair of rotator cuff RT/LEFT History of tooth extraction History of urologic surgery Urethral reconstruction 4 years ago at [facility] Nausea and vomiting after administration of anesthetic agent S/P colonoscopy S/P epidural steroid injection S/P orchiectomy Right age 9 for UDT S/P urological surgery [place]2018[place] [facility] [place] [place] Suprapubic catheter AND REMOVAL Family History Grandmother (Maternal) Diabetes Father Renal cancer Mother Aortic aneurysm Denies family history of Ovarian cancer Prostate cancer Myocardial infarction Breast cancer Colorectal cancer Social History Smoking Status: Never smoker Second Hand Exposure: No; Do You Dip or Chew Tobacco: No; Hx Alcohol Use: No Hx Substance Use: No Preferred Language: Indonesian Communication Ability: Effective Visual Impairment: No Limitations Hearing Ability: Hard of Hearing Stage Hand Required: No Beliefs That Will Affect Care: None marital status: / Current Living Situation: Family Current Living Situation Comment: lives with son current occupational status: retired How many Children do You have: 1 Other Information That Helps Us Care for You: No Feels Safe at Home: Yes Safety Concerns: Feels Safe At This Time Diet: low salt Diet Comment: LOW SALT caffeine: Yes during the past year weight has: remained stable Dental Care, Regularly: No Physical Activity Frequency: Other Physical Activity Frequency Comment: does all housework/outside work and cuts wood Seatbelt Use: never Sunscreen Use: No Assistive Devices: Cane, Walker and Other Review of Systems Review of Systems: ESAS Pain 0/3 Dyspnea 0/3 at rest Nausea 0/3 Drowsiness 0/3 Physical Exam Constitutional: + ill appearing Eyes: sclerae not anicteric Respiratory: normal respiratory effort; no labored breathing Cardiovascular: Rate/Rhythm: regular rate and regular rhythm Skin: + jaundice Neurologic: Speech / Cognition: normal cognition Results & Data Vital Signs (Past 12 Hours) Vital Signs Temp Pulse Pulse Resp BP Pulse Ox O2 Del Method 11/02/22 08:00 83 11/02/22 11:36 98.2 F 70 20 109/68 97 Room Air 11/02/22 10:46 96 11/02/22 07:51 98.4 F 77 20 97/58 L 97 Room Air 11/02/22 03:06 97.5 F L 121 H 20 92/56 L 97 Room Air PG Care Time/CCT Total # of Minutes Spent Total Time Spent: 70 Total Time Spent with Patient: Total time spent is greater than 50% in coordination of care (as documented) at patient's floor/unit and/or counseling patient: [id number] Goals of care, surrogate decision maker, patient education and sup port Coding Level of Care Code 83225 INT INP/OBS CARE 2/55MIN Diagnoses Palliative care encounter Z51.5
--- NOTE | 2022-11-02 15:48 | Hospitalist Progress Note ---
Date of Service November 02, 2022 Assessment & Plan (1) Weakness: Plan: Weakness, fluid retention 2/2 cirrhosis. No evidence of acute CHF Previously on Lasix, this was discontinued with low blood pressures previously Patient pursuing transplant list placement as an outpatient No hypoxia Suspect weakness and fluid retention due to cirrhosis patient is being treated with 40 mg of Lasix and 100 mg of Aldactone. His blood pressure is Better today on midodrine 20 mg 3 times daily Continue lactulose, rifaximin. Patient says that he had 3 bowel movements already. Goal is for 3-5 bowel movements per day Creatinine slightly better at 2.8 today Nephrology and GI on board Patient had paracentesis done 10/31. Fluid analysis results are not impressive for SBP MELD score 28 palliative care consulted Patient is aware that his cirrhosis is end-stage. He is willing to consider hospice if he does not get better. Hepatic encephalopathy Patient was somnolent and confused yesterday he was not taking lactulose Frequently enough asked the nurse to emphasize the importance of taking lactulose frequently to ensure 3-5 bowel movements He has been taking lactulose since Encephalopathy improving I was able to hold a conversation today probable UTI Urinalysis is suggestive Urine culture repeated ID consulted per GI recommendation COLLIN Creatinine stable at 3 today nephrology involved continue Lasix and Aldactone in 2:5 ratio Ascites status post diagnostic and therapeutic paracentesis Fluid analysis is not suggestive of SBP Recent GI bleed Last hospitalization with GI bleed requiring PPI, octreotide. Stabilized and was able to be discharged Hemoglobin last 8.4 on discharge today 8.4 received a unit of blood transfusion during this hospital stay No evidence of acute bleeding on admission Trend daily Macrocytic anemia Uptrending hemoglobin, no acute bleeding. Stable, trended daily GAVE Continue PPI Hypothyroidism Free T4 normal History of paroxysmal SVT Metoprolol continued. EKG on admission is sinus tachycardia with PACs, no ST segment/T wave changes DVT prophylaxis: Pharmacal prophylaxis deferred due to history of recurrent severe GI bleeds. SCDs Diet: Low-salt Disposition: PCU due to COLLIN, volume depletion, and history of SVT CODE STATUS: DNR/DNI (2) Cirrhosis of liver: (3) CKD (chronic kidney disease), stage III: (4) GERD (gastroesophageal reflux disease): (5) Esophageal varices determined by endoscopy: (6) 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: (7) Pancytopenia: (8) Portal hypertensive gastropathy: (9) PSVT (paroxysmal supraventricular tachycardia): Admission and Anticipated Discharge Date Admission Date: October 28, 2022 Subjective Patient is less confused today. He is more awake and alert and able to have a more meaningful conversation. He says that he is waiting to have a transplant done but understands that being in the hospital and being deconditioned makes it harder for him to get a new liver. He stated that he took his lactulose twice already and had 3 bowel movements this morning. Review of Systems Review of Systems: All systems reviewed & are unremarkable except as noted in Subjective Physical Exam Physical Exam: general: Awake, conversant Heart: S1, S2/regular rate and rhythm, no murmur rubs or gallops Lungs: Clear to auscultation bilaterally. Normal effort Abdomen: Soft/nontender. abdomen Less distended today. Positive bowel sounds. Extremities: No clubbing/cyanosis. 2-3+ bilateral pitting edema Behavior: Appropriate, cooperative Results & Data Results & Data Vital Signs (Past 12 Hours) Vital Signs Temp Pulse Pulse Resp BP Pulse Ox O2 Del Method 11/02/22 15:38 72 11/02/22 15:25 36.7 C 74 20 101/65 96 Room Air 11/02/22 08:00 83 11/02/22 11:36 36.8 C 70 20 109/68 97 Room Air 11/02/22 10:46 96 11/02/22 07:51 36.9 C 77 20 97/58 L 97 Room Air Laboratory Results Abnormal lab results 11/02/22 11/02/22 11/02/22 Range/Units 10:24 10:24 10:31 RBC 2.38 L (4.70-6.10) M/uL Hgb 8.4 L (14.0-18.0) g/dl Hct 25.1 L (42.0-52.0) % MCV 105.5 H (80.0-100.0) fL MCH 35.3 H (25.0-34.0) pg RDW Std Deviation 87.6 H (36.4-46.3) fL RDW Coeff of Miguel 23.2 H (11.5-14.5) % Plt Count 39 L (130-400) K/uL MPV 9.2 L (9.4-12.4) fL Neut # (Auto) 7.96 H (1.40-6.50) K/uL Lymph # (Auto) 0.84 L (1.20-3.40) K/uL Whitman # (Auto) 0.89 H (0.11-0.59) K/uL PT 22.2 H (9.0-12.0) Seconds INR 2.1 H (0.9-1.1) Potassium 2.8 L (3.5-5.1) mmol/L BUN 31 H (6-23) mg/dl Creatinine 2.91 H (0.6-1.4) mg/dl Glucose 162 H (70-99(Fasting)) mg/dl Total Bilirubin 7.1 H (0.2-1.0) mg/dl Total Protein 5.1 L (6.0-8.3) gm/dl Albumin 2.9 L (3.4-5.0) gm/dl Globulin 2.2 L (2.5-4.0) gm/dl PG Care Time/CCT Total # of Minutes Spent Total Time Spent with Patient: Total time spent is greater than 50% in coordination of care (as documented) at patient's floor/unit and/or counseling patient: Coding Level of Care Code 88352 SUB INP/OBS CARE 235MIN Diagnoses Weakness R53.1 Cirrhosis of liver K70.30 Ascites presence: unspecified Hepatic cirrhosis type: alcoholic cirrhosis CKD (chronic kidney disease), stage III N18.3 GERD (gastroesophageal reflux disease) K21.9 Esophageal varices determined by endoscopy I85.00 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 K75.81; K74.60 Pancytopenia D61.818 Portal hypertensive gastropathy K76.6; K31.89 PSVT (paroxysmal supraventricular tachycardia) I47.1 (2) Cirrhosis of liver Ascites presence: unspecified Hepatic cirrhosis type: alcoholic cirrhosis Qualified Code(s): K70.30 - Alcoholic cirrhosis of liver without ascites
--- NOTE | 2022-11-02 15:50 | Infectious Disease Consult ---
Date of Consultation November 02, 2022 Assessment & Plan (1) UTI (urinary tract infection): (2) Edema: (3) Ascites: (4) Epigastric pain: Plan 67 yo male with pmh of CKD, decompensated HEATON cirrhosis w GAVE bleeding, portal hypertensive gastropathy, hepatic encephalopathy, spinal stenosis, h/o VRE bacteremia and VRE UTi (07/2022) s/p14 d of Daptomycin. Since then he has positive urine cultures for E feaceium ( S Vanc, Nitro) and Klebsiella Oxytoca (R Cefaz, I amp/sul). He was recently admitted for a GI bleed. He presents with shortness of breath and BL LE edema. He admits to abdomen distention and discomfort. He denies fever chill, n/v, cough. On admission, he is HDS. CTAB shows moderate body wall edema with moderate ascites , gastric wall thickening, bl nephrolithiasis. Labs noted for a cr 3.( baseline 2.5). Tbili 3.8 ( up to 7.1 today). Admission UA with 10-30 wb c. UC with mixed jairon. He underwent U/S guided paracentesis with no evidence of SBP. He has not been on abx. He complained of dysuria on 11/01. Repeat UA shows 10-30 WBC, 5-10 RBc , + nitrite. Repeat UC obtained and pending. He has not been started on antibiotics. ID consulted for antibiotics recommendation for uti. Micro UC 10/28 More than three types of organisms present BC 10/28 NGTD UC 11/02 pending Abx none # UTI # History of + UC with Klebsiella, VRE, E faecium, gamma strep # H/O VRE bacteremia # He[place] cirrhosis with ascites He complains of worsening dysuria and suprapubic pain with pyuria on UA c/w UTI Recommendations Started ceftriaxone 1 g iv daily based on prior UC results. Started Daptomycin 4mg /kg Iv daily ( cr cl 30) based on prior UC results. IF crcl goes < 30, than change Dapto freqency to Q48 hour CPK ordered Follow up UC and adjust abx based on result Monitor cr Anticipate 7d of therapy for UTI . Thank you for this consultation. . Reji Murray MD, MPH Infectious Disease [facility], [facility] Call [phone] with questions Consultation Information Consultation was provided via telemedicine using two-way real-time interactive telecommunication between the patient and the telemedicine provider. For the duration of the visit, the provider was performing the assessment from a different facility than the patient. This includesuse of bluetooth stethoscope forauscultationperformed by the telepresenter that the telemedicine provider can hear if described in the physical exam. Rubber Curer contact information: Please call [facility] Call Center . (Phone Number For Physician Use Only) After establishing a telemedicine visit, patient was: Patient was verified with two unique identifiers and Patient/authorized rep acknowledged consent and understanding Time Spent with Patient: Initial => 55 min History of Present Illness Reason for Consultation: ABx for UTI Requesting Physician: Leyla Pennington MD Attending Physician: Leyla Pennington MD History of Present Illness 67 yo male with pmh of CKD, decompensated HEATON cirrhosis w GAVE bleeding, portal hypertensive gastropathy, hepatic encephalopathy, spinal stenosis, h/o VRE bacteremia and VRE UTi (07/2022) s/p14 d of Daptomycin. Since then he has positive urine cultures for E feaceium ( S Vanc, Nitro) and Klebsiella Oxytoca (R Cefaz, I amp/sul). He was recently admitted for a GI bleed. He presents with shortness of breath and BL LE edema. He admits to abdomen distention and discomfort. He denies fever chill, n/v, cough. On admission, he is HDS. CTAB shows moderate body wall edema with moderate ascites , gastric wall thickening, bl nephrolithiasis. Labs noted for a cr 3.( baseline 2.5). Tbili 3.8 ( up to 7.1 today). Admission UA with 10-30 wbc. UC with mixed jairon. He underwent U/S guided paracentesis with no evidence of SBP. He has not been on abx. He complained of dysuria on 11/01. Repeat UA shows 10-30 WBC, 5-10 RBc , + nitrite. Repeat UC obtained and pending. He has not been started on antibiotics. ID consulted for antibiotics recommendation for uti. Allergies Allergy/AdvReac Type Severity Reaction Status Date / Time tamsulosin Allergy Intermediate HIVES Verified 10/28/22 17:07 etanercept [From Enbrel] AdvReac Intermediate Increased Verified 10/28/22 17:07 infections Home Medications Medication Instructions Recorded Confirmed Type ondansetron HCl 4 mg tablet 4 mg PO Q8H PRN Nausea And 08/08/22 10/28/22 Rx Vomiting #30 tabs lactulose 10 gram/15 mL oral 20 g (30 mL) PO DAILY #946 mL 08/10/22 10/28/22 Rx solution furosemide 20 mg tablet 20 mg PO DAILY PRN edema #14 tabs 09/07/22 10/28/22 Rx midodrine 10 mg tablet 15 mg PO TID #135 tabs 09/14/22 10/28/22 Rx Walker #1 ea 09/21/22 Rx paroxetine HCl 10 mg tablet 10 mg PO HS 09/23/22 10/28/22 History pantoprazole 40 mg tablet,delayed 40 mg PO BID #60 tabs 09/27/22 10/28/22 Rx release rifaximin 550 mg tablet (Xifaxan) 550 mg PO BID #60 tabs 09/27/22 10/28/22 Rx metoprolol tartrate 25 mg tablet 12.5 mg PO BID #0 tabs 10/03/22 10/28/22 Rx acetaminophen 325 mg tablet 650 mg PO QID PRN Fever Or Pain 10/18/22 10/28/22 History (Tylenol) cholecalciferol (vitamin D3) 50 2,000 unit PO QAM 10/28/22 10/28/22 History mcg (2,000 unit) capsule (Vitamin D3) sucralfate 100 mg/mL oral 10 ml PO BID 10/28/22 10/28/22 History suspension fludrocortisone 0.1 mg tablet 0.1 mg PO BID #180 tabs 10/30/22 Rx Patient History Medical History Anemia Ascites Calculus of kidney Cervical disc disease CKD (chronic kidney disease), stage III Depression Esophageal varices determined by endoscopy GAVE (gastric antral vascular ectasia) Per records GERD (gastroesophageal reflux disease) History of GI bleed discharged from [facility] 06/10/22: borderline hemorrhagic shock-upper GI bleed suspected to be d/t GAVE-received 1 unit of PRBC History of herniated intervertebral disc lumbar area History of SCC (squamous cell carcinoma) of skin S/p removal- follows with derm Hx of blood clots 06/2021 @ [facility]- pt reports blood clot in left arm around IV site after being discharged from hospital- no meds due to current blood loss issue- warm compresses to site per pt- 2 ultrasounds done - no current issues Hx of upper gastrointestinal hemorrhage recent hospitalization at [facility] 06/07/2022 Hyperkalemia Hypothyroidism 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 current work-up for planned liver transplant per [facility] transplant clinic records Lumbar disc disease Oral mucositis On mouthwash daily- no recent issues Pancytopenia Portal hypertensive gastropathy Post-traumatic urethral stricture Psoriasis Psoriatic arthritis PVT (portal vein thrombosis) denies Spinal stenosis EPIDURAL INJECTIONS IN PAST FOR PAIN RELIEF TMJ arthralgia Urinary retention Urinary tract infection Wide-complex tachycardia ON CARDVEDILOL-F/U DR VANESSA LAST VISIT<1 YR AGO Surgical History H/O foot surgery excision of neuroma b/l feet History of appendectomy History of arthroscopy RT KNEE History of cataract surgery RT/LEFT History of cholecystectomy History of esophagogastroduodenoscopy (EGD) last 03/21/22 @ [facility] 02/08/22 Dr. Sara Cloud- EGD- Grade I esophageal varices, Portal hypertensive gastropathy History of herniorrhaphy right inguinal History of lithotripsy History of liver biopsy History of repair of rotator cuff RT/LEFT History of tooth extraction History of urologic surgery Urethral reconstruction 4 years ago at [facility] Nausea and vomiting after administration of anesthetic agent S/P colonoscopy S/P epidural steroid injection S/P orchiectomy Right age 9 for UDT S/P urological surgery (2018) BMG urethroplasty-[facility] Suprapubic catheter AND REMOVAL Family History Grandmother (Maternal) Diabetes Father Renal cancer Mother Aortic aneurysm Denies family history of Ovarian cancer Prostate cancer Myocardial infarction Breast cancer Colorectal cancer Social History Smoking Status: Never smoker Second Hand Exposure: No; Do You Dip or Chew Tobacco: No; Hx Alcohol Use: No Hx Substance Use: No Preferred Language: Maltese Communication Ability: Effective Visual Impairment: No Limitations Hearing Ability: Hard of Hearing Electrical Supervisor Required: No Beliefs That Will Affect Care: None marital status: / Current Living Situation: Family Current Living Situation Comment: lives with son current occupational status: retired How many Children do You have: 1 Other Information That Helps Us Care for You: No Feels Safe at Home: Yes Safety Concerns: Feels Safe At This Time Diet: low salt Diet Comment: LOW SALT caffeine: Yes during the past year weight has: remained stable Dental Care, Regularly: No Physical Activity Frequency: Other Physical Activity Frequency Comment: does all housework/outside work and cuts wood Seatbelt Use: never Sunscreen Use: No Assistive Devices: Cane, Walker and Other Review of System A 10 point ROS obtained. Pertinent positives as per Hpi Physical Exam Constitutional: NAD, AAO*3, jaundiced Respiratory: No increased work of breathing Gastrointestinal (Abdomen): Obese, soft, RUQ tenderness Musculoskeletal: BL pitting edema 2+ Neurologic: AAO*3 Genitourinary: + Suprapubic tenderness Results & Data Vital Signs (Past 12 Hours) Vital Signs Temp Pulse Pulse Resp BP Pulse Ox O2 Del Method 11/02/22 15:38 72 11/02/22 15:25 36.7 C 74 20 101/65 96 Room Air 11/02/22 08:00 83 11/02/22 11:36 36.8 C 70 20 109/68 97 Room Air 11/02/22 10:46 96 11/02/22 07:51 36.9 C 77 20 97/58 L 97 Room Air Laboratory Results Laboratory Results - last 48 hr 10/31/22 10/31/22 11/01/22 15:39 16:10 06:56 WBC 5.70 RBC 2.18 L Hgb 7.7 L Hct 22.6 L MCV 103.7 H MCH 35.3 H MCHC 34.1 RDW Std Deviation 84.8 H RDW Coeff of Miguel 23.3 H Plt Count 33 L MPV 8.7 L Immature Gran % (Auto) Neut % (Auto) Lymph % (Auto) [place] % (Auto) Eos % (Auto) Baso % (Auto) Neut # (Auto) Lymph # (Auto) [place] # (Auto) Eos # (Auto) Baso # (Auto) Immature Gran # (Auto) Polychromasia Anisocytosis Echinocytes PT INR Sodium Potassium Chloride Carbon Dioxide Anion Gap BUN Creatinine Est Cr Clr Drug Dosing Est GFR ( Amer) Est GFR (Non-Af Amer) BUN/Creatinine Ratio Glucose Calcium Total Bilirubin Direct Bilirubin AST ALT Alkaline Phosphatase Total Protein Albumin 3.1 L Globulin Albumin/Globulin Ratio Urine Color Urine Appearance Urine pH Ur Specific [place] Urine Protein Urine Glucose (UA) Urine Ketones Urine Blood Urine Nitrite Urine Bilirubin Urine Urobilinogen Ur Leukocyte Esterase Urine WBC (Auto) Urine RBC (Auto) U Hyaline Cast (Auto) U Epithel Cells (Auto) Urine Bacteria (Auto) Blood Type O Positive Antibody Screen NEGATIVE Crossmatch See Detail 11/01/22 11/01/22 11/01/22 06:56 08:46 13:28 WBC RBC Hgb Hct MCV MCH MCHC RDW Std Deviation RDW Coeff of Miguel Plt Count MPV Immature Gran % (Auto) Neut % (Auto) Lymph % (Auto) [place] % (Auto) Eos % (Auto) Baso % (Auto) Neut # (Auto) Lymph # (Auto) [place] # (Auto) Eos # (Auto) Baso # (Auto) Immature Gran # (Auto) Polychromasia Anisocytosis Echinocytes PT 23.5 H INR 2.3 H Sodium 141 Potassium 3.5 Chloride 109 H Carbon Dioxide 27 Anion Gap 5 BUN 28 H Creatinine 2.89 H Est Cr Clr Drug Dosing 30.2 Est GFR ( Amer) 24.7 Est GFR (Non-Af Amer) 21.3 BUN/Creatinine Ratio 9.7 L Glucose 100 H Calcium 9.9 Total Bilirubin 6.2 H Direct Bilirubin 1.9 H AST 23 ALT 13 Alkaline Phosphatase 81 Total Protein 4.8 L Albumin 3.0 L Globulin Albumin/Globulin Ratio Urine Color Yellow Urine Appearance Clear Urine pH 6.0 Ur Specific [place] 1.006 Urine Protein Negative Urine Glucose (UA) Negative Urine Ketones Negative Urine Blood 1+ H Urine Nitrite Positive A Urine Bilirubin Negative Urine Urobilinogen Negative Ur Leukocyte Esterase 1+ H Urine WBC (Auto) 10-30 H Urine RBC (Auto) 5-10 H U Hyaline Cast (Auto) 0 U Epithel Cells (Auto) 5-10 H Urine Bacteria (Auto) 2+ H Blood Type Antibody Screen Crossmatch 11/02/22 11/02/22 11/02/22 10:24 10:24 10:31 WBC 10.13 RBC 2.38 L Hgb 8.4 L Hct 25.1 L MCV 105.5 H MCH 35.3 H MCHC 33.5 RDW Std Deviation 87.6 H RDW Coeff of Miguel 23.2 H Plt Count 39 L MPV 9.2 L Immature Gran % (Auto) 0.6 Neut % (Auto) 78.5 Lymph % (Auto) 8.3 [place] % (Auto) 8.8 Eos % (Auto) 3.2 Baso % (Auto) 0.6 Neut # (Auto) 7.96 H Lymph # (Auto) 0.84 L [place] # (Auto) 0.89 H Eos # (Auto) 0.32 Baso # (Auto) 0.06 Immature Gran # (Auto) 0.06 Polychromasia 1+ Anisocytosis Present Echinocytes 1+ PT 22.2 H INR 2.1 H Sodium 139 Potassium 2.8 L Chloride 106 Carbon Dioxide 25 Anion Gap 8 BUN 31 H Creatinine 2.91 H Est Cr Clr Drug Dosing 29.8 Est GFR ( Amer) 24.5 Est GFR (Non-Af Amer) 21.2 BUN/Creatinine Ratio 10.7 Glucose 162 H Calcium 9.7 Total Bilirubin 7.1 H Direct Bilirubin AST 22 ALT 12 Alkaline Phosphatase 82 Total Protein 5.1 L Albumin 2.9 L Globulin 2.2 L Albumin/Globulin Ratio 1.3 Urine Color Urine Appearance Urine pH Ur Specific [place] Urine Protein Urine Glucose (UA) Urine Ketones Urine Blood Urine Nitrite Urine Bilirubin Urine Urobilinogen Ur Leukocyte Esterase Urine WBC (Auto) Urine RBC (Auto) U Hyaline Cast (Auto) U Epithel Cells (Auto) Urine Bacteria (Auto) Blood Type Antibody Screen Crossmatch Diagnostic Findings Microbiology 10/28/22 14:28 Blood Aerobic Blood Culture - Preliminary No growth in Aerobic bottle after 48 hours. 10/28/22 14:28 Blood Anaerobic Blood Culture - Preliminary No growth in Anaerobic bottle after 48 hours. 10/28/22 14:50 Blood Aerobic Blood Culture - Preliminary No growth in Aerobic bottle after 48 hours. 10/28/22 14:50 Blood Anaerobic Blood Culture - Preliminary No growth in Anaerobic bottle after 48 hours. 10/28/22 18:47 Urine,Clean Catch Urine Culture - Final More than three types of organisms present, all moderate counts mixed probable skin jairon. No further identifications or sensitivities to follow. Paracentesis Ultrasound 10/31/22 08:09 Ultrasound guided paracentesis INDICATION: Ascites PROCEDURE: Procedure and risks were explained. Informed consent was obtained. A final timeout was completed. The left lower quadrant was prepped and draped in sterile fashion. 1% buffered lidocaine was utilized for skin anesthesia. Utilizing ultrasound guidance, a 5 Malagasy safety centesis catheter was advanced into the pocket of ascites. Ultrasound images were obtained. 1 L of yellow fluid was removed and sent to lab for analysis. The catheter was removed and Band-Aid applied. The patient tolerated the procedure well. Vital signs will be monitored postprocedure. IMPRESSION: Paracentesis as above. Performed, dictated, and signed by Jose Elias Romero PA-C; to be co-signed by Dr. Alan Espino. Electronically signed by: Alan Espino M.D. 10/31/2022 1:07 PM Abdomen/Pelvis CT 11/01/22 11:[address] WITHOUT CONTRAST CT DOSE: 1863.26 mGy.cm HISTORY: abdominal pain; ro kidney stones, intraad bleed TECHNIQUE: Multiaxial CT images of the abdomen and pelvis were performed without contrast. A dose lowering technique was utilized adhering to the principles of ALARA. COMPARISON STUDY: Abdomen and pelvis CT 10/28/2022. FINDINGS: Interval development of trace bilateral pleural effusions. No pneumoperitoneum. No pneumatosis. No acute fractures identified. Anemia again noted. Moderate to severe body wall edema which has progressed in the interval. Gastric wall thickening, unchanged. Moderate ascites is similar to the prior study. Cirrhotic liver with mild splenomegaly and abdominal varicosities, unchanged. Cholecystectomy. The adrenal glands are unremarkable. Bilateral renal calculi again noted. No ureteral calculi. No hydronephrosis. 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 No retroperitoneal lymphadenopathy. Mild bladder wall thickening, unchanged. This is likely chronic. No bowel wall thickening or obstruction. No retroperitoneal hematoma identified. Appendectomy. Atrophic pancreas, unchanged. IMPRESSION: 1. No evidence for bowel obstruction. 2. Moderate to severe body wall edema with moderate ascites. This is slightly progressed in the interval. 3. Bilateral nephrolithiasis. No hydronephrosis. 4. Gastric wall thickening, unchanged. 5. 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 6. Additional findings as described above. ACT 112: Negative or not required by law. Electronically signed by: Joaquín Bolden M.D. 11/01/2022 2:12 PM Medications Administered Home Medications Medication Instructions Recorded Confirmed Last Taken ondansetron HCl 4 mg tablet 4 mg PO Q8H PRN Nausea And 08/08/22 10/28/22 Unknown Vomiting #30 tabs lactulose 10 gram/15 mL oral 20 g (30 mL) PO DAILY #946 mL 08/10/22 10/28/22 09/23/22 solution furosemide 20 mg tablet 20 mg PO DAILY PRN edema #14 tabs 09/07/22 10/28/22 Unknown midodrine 10 mg tablet 15 mg PO TID #135 tabs 09/14/22 10/28/22 09/23/22 08:00 Walker #1 ea 09/21/22 Unknown paroxetine HCl 10 mg tablet 10 mg PO HS 09/23/22 10/28/22 09/22/22 pantoprazole 40 mg tablet,delayed 40 mg PO BID #60 tabs 09/27/22 10/28/22 Unknown release rifaximin 550 mg tablet (Xifaxan) 550 mg PO BID #60 tabs 09/27/22 10/28/22 Unknown metoprolol tartrate 25 mg tablet 12.5 mg PO BID #0 tabs 10/03/22 10/28/22 Unknown acetaminophen 325 mg tablet 650 mg PO QID PRN Fever Or Pain 10/18/22 10/28/22 Unknown (Tylenol) cholecalciferol (vitamin D3) 50 2,000 unit PO QAM 10/28/22 10/28/22 Unknown mcg (2,000 unit) capsule (Vitamin D3) sucralfate 100 mg/mL oral 10 ml PO BID 10/28/22 10/28/22 Unknown suspension fludrocortisone 0.1 mg tablet 0.1 mg PO BID #180 tabs 10/30/22 Unknown Active Medications Generic Name Dose Route Start Last Admin Trade Name Freq PRN Reason Stop Dose Admin Furosemide 40 mg 10/31/22 09:00 11/02/22 07:36 Furosemide 40 Mg Tab PO 11/30/22 08:59 40 mg QAM LUZ Administration Phytonadione 10 mg/ Dextrose 51 mls @ 102 mls/hr 11/01/22 12:15 11/02/22 11:25 IV 11/03/22 12:16 Infused DAILY LUZ Infusion Lactulose 20 gm 10/30/22 14:00 11/02/22 13:46 Lactulose Syrup 20 Gm/30 Ml Udc PO 11/29/22 13:59 20 gm TID LUZ Administration Metoprolol Tartrate 12.5 mg 10/28/22 21:00 11/02/22 07:36 Metoprolol Tartrate 25 Mg Tab PO 11/27/22 20:59 12.5 mg BID LUZ Administration Midodrine 20 mg 10/31/22 18:00 11/02/22 13:46 Midodrine Hcl 10 Mg Tab PO 11/30/22 17:59 20 mg TID@0700,1200,1800 LUZ Administration Pantoprazole Sodium 40 mg 10/28/22 21:00 11/02/22 07:35 Pantoprazole 40 Mg Tab PO 11/27/22 20:59 40 mg BID LUZ Administration Paroxetine HCl 10 mg 10/28/22 21:00 11/01/22 20:55 Paroxetine Hcl 10 Mg Tab PO 11/27/22 20:59 10 mg HS LUZ Administration Rifaximin 550 mg 10/28/22 21:00 11/02/22 07:35 Rifaximin 550 Mg Tablet PO 11/27/22 20:59 550 mg BID LUZ Administration Spironolactone 100 mg 10/31/22 09:00 11/02/22 07:35 Spironolactone 100 Mg Tab PO 11/30/22 08:59 100 mg QAM LUZ Administration Sucralfate 1 gm 10/28/22 21:00 11/02/22 07:35 Sucralfate 1 Gm/10 Ml Udc PO 11/27/22 20:59 1 gm BID LUZ Administration Tramadol HCl 50 mg 10/29/22 17:05 10/29/22 18:08 Tramadol Hcl 50 Mg Tablet PO 11/28/22 17:04 50 mg Q4H PRN Administration Pain Vitamin D 2,000 units 10/29/22 09:00 11/02/22 07:36 Cholecalciferol 1,000 Units 25 Mcg Tab PO 11/28/22 08:59 2,000 units QAM LUZ Administration (2) Edema Edema type: unspecified Qualified Code(s): R60.9 - Edema, unspecified (3) Ascites Ascites type: other type Qualified Code(s): R18.8 - Other ascites
[2022-11-02] MEDS: PARoxetine HCL 10 MG TAB PO SCH (20:03)
[2022-11-02] MEDS ORDERED: cefTRIAXone SODIUM 1,000 MG in DEXTROSE 5% 50 ML IV SCH (20:30)
[2022-11-02] MEDS: DAPTOmycin 350 MG in SYRINGE 0 ML IV SCH (21:07)
[2022-11-02] MEDS: cefTRIAXone SODIUM 2,000 MG in DEXTROSE 5% 50 ML IV SCH (21:07)
[2022-11-03] MEDS: MIDODRINE HCL 10 MG TAB PO SCH ×3 (06:30→17:26)
[2022-11-03 06:39] LABS: Calcium 9.7 mg/dl (8.6-10.3); Creatinine Clr Calc Pharmacy 31.7 ml/min; Est GFR (African American) 26.2 ml/min; Est GFR (Non-African American) 22.6 ml/min; Potassium 3.3 mmol/L (3.5-5.1)
[2022-11-03 06:44] LABS: Prothrombin Time 20.7 Seconds (9.0-12.0)
[2022-11-03] MEDS ORDERED: POTASSIUM CHLORIDE CRTAB 20 MEQ TABCR PO STA (07:59)
[2022-11-03] MEDS: PANTOprazole 40 MG TAB PO SCH ×2 (09:59→20:36)
[2022-11-03] MEDS: LACTULOSE SYRUP 20 GM/30 ML UDC PO SCH ×3 (09:59→20:34)
[2022-11-03] MEDS: rifAXIMin 550 MG TABLET PO SCH ×2 (10:00→20:37)
[2022-11-03] MEDS: METOPROLOL TARTRATE 25 MG TAB PO SCH ×2 (10:00→20:33)
[2022-11-03] MEDS: FUROSEMIDE 40 MG TAB PO SCH (10:01)
[2022-11-03] MEDS: SPIRONOLACTONE 100 MG TAB PO SCH (10:02)
[2022-11-03] MEDS: CHOLECALCIFEROL 1,000 UNITS 25 MCG TAB PO SCH (10:03)
[2022-11-03] MEDS: SUCRALFATE 1 GM/10 ML UDC PO SCH ×2 (10:04→20:37)
[2022-11-03] MEDS: PHYTONADIONE 10 MG in DEXTROSE 5% 50 ML IV SCH (11:33)
--- NOTE | 2022-11-03 12:16 | Nephrology Progress Note ---
Date of Service November 03, 2022 Assessment & Plan (1) COLLIN (acute kidney injury): (2) Edema: (3) Ascites: (4) Anemia: (5) UTI (urinary tract infection): (6) Hypokalemia: Plan 67 year old male with h/o stage 3b/4 CKD, b/l cr 2.0 to 2.5, cirrhosis due to [place] ([place] [facility] GAVE w/ recurrent UGI bleed, [facility] spinal stenosis, OA, HTN, h/o urethral reconstruction [place] [place] CT A/P on 10/28/22 revealed cortical thinning, small bilateral kidney stones, no hydronephrosis. He was hospitalized 09/23/22-10/05/22 due to UGI bleed requiring 2 units PRBC.Endoscopy was not required.He was again admitted on 10/28/22 with progressive LE/abdominal swelling, weakness and difficulty ambulating.Lab on admission showed Cr 3.0, K 3.0, albumin 1.8, T. Bili 3.8, AST 42, NH3 33, WBC 3.9, Hgb 7.9, T36.3, SBP 70-80 mmHg. He was started on IV albumin and Lasix and spironolactone was resumed. Continued on midodrine 20 mg 3 times daily. Volume status somewhat improved and clinically otherwise stable although remained hypotensive. Renal function slightly improved to creatinine 2.7 this morning, potassium was 3.3. He was also found to have UTI with gram-negative bacilli with prior history of Klebsiella UTI and currently on daptomycin and Rocephin. -- Continue on Lasix and spironolactone at current dose. Although renal function slightly improved and creatinine close to baseline, he has high risk for progressive worsening of renal function and associated electrolyte abnormality. However considering underlying advanced liver disease with multiple associated complication as well as persistent hypotension despite being on high dose of midodrine, in future, if renal function worsen he would be a poor candidate for renal replacement therapy. Was seen by palliative care and seems like as of now he would like to continue the current level of care and would not consider any aggressive measures which seems reasonable. -- We will sign off, he can continue follow-up with Dr. Martinez as an outpatient as currently scheduled however, if there is any other questions or concerns, please do not hesitate to contact. Admission and Anticipated Discharge Date Admission Date: October 28, 2022 Subjective Bill was seen and evaluated this morning. Denied shortness of breath, abdominal discomfort, nausea. Blood pressure relatively low but asymptomatic. Renal function staying relatively stable, creatinine slightly improved to 2.8 not that far from his baseline, hemoglobin stable after receiving 2 PRBC during hospitalization. Potassium was 3.3 and received supplement this morning Review of Systems Review of Systems: Detailed review of system was otherwise unremarkable. Physical Exam Constitutional: WD/WN, vitals as above + ill appearing and + frail appearing; no acute distress Eyes: + anicteric sclerae Neck: normal visual inspection Respiratory: Auscultation: lungs clear to auscultation bilaterally Cardiovascular: Rate/Rhythm: regular rate and regular rhythm Extremities: + edema Skin: + turgor decreased; no rashes Neurologic: no focal motor deficits and not confused Psychiatric: Orientation: alert and oriented x 3 Results & Data Vital Signs (Past 12 Hours) Vital Signs Temp Pulse Pulse Resp BP BP Pulse Ox 11/03/22 07:59 36.9 C 80 18 97/61 L 97 11/03/22 04:19 37.1 C 75 18 92/49 L 98 11/03/22 00:52 75 O2 Del Method 11/03/22 07:59 Room Air 11/03/22 04:19 Room Air 11/03/22 00:52 PG Care Time/CCT Total # of Minutes Spent Total Time Spent with Patient: Total time spent is greater than 50% in coordination of care (as documented) at patient's floor/unit and/or counseling patient: Coding Level of Care Code 45780 SUB INP/OBS CARE 2/35MIN Diagnoses COLILN (acute kidney injury) N17.9 Edema R60.9 Edema type: unspecified Ascites R18.8 Ascites type: other type Anemia D64.9 Anemia type: unspecified type UTI (urinary tract infection) N39.0 Hypokalemia E87.6 (2) Edema Edema type: unspecified Qualified Code(s): R60.9 - Edema, unspecified (3) Ascites Ascites type: other type Qualified Code(s): R18.8 - Other ascites (4) Anemia Anemia type: unspecified type Qualified Code(s): D64.9 - Anemia, unspecified
--- NOTE | 2022-11-03 14:26 | Hospitalist Progress Note ---
Date of Service November 03, 2022 Assessment & Plan (1) Weakness: Plan: Weakness, fluid retention 2/2 cirrhosis. No evidence of acute CHF Previously on Lasix, this was discontinued with low blood pressures previously Patient pursuing transplant list placement as an outpatient Suspect weakness and fluid retention due to cirrhosis patient is being treated with 40 mg of Lasix and 100 mg of Aldactone. His blood pressure is Better today on midodrine 20 mg 3 times daily Continue lactulose, rifaximin. Continue lactulose for a goal is for 3-5 bowel movements per day Creatinine slightly better at 2.7 today Nephrology and GI on board Patient had paracentesis done 10/31. Fluid analysis results are not impressive for SBP MELD score 28 palliative care consulted Patient is aware that his cirrhosis is end-stage. He is willing to consider hospice if he does not get better. Hepatic encephalopathy Patient was somnolent and confused earlier he was not taking lactulose Frequently enough asked the nurse to emphasize the importance of taking lactulose frequently to ensure 3-5 bowel movements He has been taking lactulose since Encephalopathy improved I was able to hold a conversation today Likely UTI Urinalysis is suggestive Urine culture repeated, growing gram-negative antonio awaiting sensitivities On IV daptomycin and IV ceftriaxone for broad-spectrum coverage We will narrow down based on sensitivities. COLLIN Creatinine trending down slowly continue Lasix and Aldactone in 2:5 ratio High risk of progressive worsening renal failure. He is not a candidate for dialysis in future. Rather he would want to switch to hospice if he were to decline. Ascites status post diagnostic and therapeutic paracentesis Fluid analysis is not suggestive of SBP Recent GI bleed Last hospitalization with GI bleed requiring PPI, octreotide. Stabilized and was able to be discharged Hemoglobin last 8.4 on discharge today 8.4 received a unit of blood transfusion during this hospital stay No evidence of acute bleeding on admission Trend daily Macrocytic anemia Uptrending hemoglobin, no acute bleeding. Stable, trended daily GAVE Continue PPI Hypothyroidism Free T4 normal History of paroxysmal SVT Metoprolol continued. EKG on admission is sinus tachycardia with PACs, no ST segment/T wave changes DVT prophylaxis: Pharmacal prophylaxis deferred due to history of recurrent severe GI bleeds. SCDs Diet: Low-salt CODE STATUS: DNR/DNI (2) Cirrhosis of liver: (3) CKD (chronic kidney disease), stage III: (4) GERD (gastroesophageal reflux disease): (5) Esophageal varices determined by endoscopy: (6) 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: (7) Pancytopenia: (8) Portal hypertensive gastropathy: (9) PSVT (paroxysmal supraventricular tachycardia): Admission and Anticipated Discharge Date Admission Date: October 28, 2022 Subjective Patient is able to have a good conversation today. He had 5 bowel movements yesterday. He already had 1 bowel movement today. He has been taking lactulose. He is awake and conversant. Says that he is feeling better overall. His leg swelling and abdominal swelling are improving. Review of Systems Review of Systems: All systems reviewed & are unremarkable except as noted in Subjective Physical Exam Physical Exam: general: Awake, conversant Heart: S1, S2/regular rate and rhythm, no murmur rubs or gallops Lungs: Clear to auscultation bilaterally. Normal effort Abdomen: Soft/nontender. abdomen Less distended today. Positive bowel sounds. Extremities: No clubbing/cyanosis. 2+ bilateral pitting edema Behavior: Appropriate, cooperative Results & Data Results & Data Vital Signs (Past 12 Hours) Vital Signs Temp Pulse Resp BP BP Pulse Ox O2 Del Method 11/03/22 11:18 37.1 C 82 18 88/51 L 92 Room Air 11/03/22 07:59 36.9 C 80 18 97/61 L 97 Room Air 11/03/22 04:19 37.1 C 75 18 92/49 L 98 Room Air PG Care Time/CCT Total # of Minutes Spent Total Time Spent with Patient: Total time spent is greater than 50% in coordination of care (as documented) at patient's floor/unit and/or counseling patient: Coding Level of Care Code 56267 SUB INP/OBS CARE 2/35MIN Diagnoses Weakness R53.1 Cirrhosis of liver K70.30 Ascites presence: unspecified Hepatic cirrhosis type: alcoholic cirrhosis CKD (chronic kidney disease), stage III N18.3 GERD (gastroesophageal reflux disease) K21.9 Esophageal varices determined by endoscopy I85.00 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 K75.81; K74.60 Pancytopenia D61.818 Portal hypertensive gastropathy K76.6; K31.89 PSVT (paroxysmal supraventricular tachycardia) I47.1 (2) Cirrhosis of liver Ascites presence: unspecified Hepatic cirrhosis type: alcoholic cirrhosis Qualified Code(s): K70.30 - Alcoholic cirrhosis of liver without ascites
[2022-11-03] MEDS: cefTRIAXone SODIUM 2,000 MG in DEXTROSE 5% 50 ML IV SCH (20:34)
[2022-11-03] MEDS: PARoxetine HCL 10 MG TAB PO SCH (20:35)
[2022-11-03] MEDS: DAPTOmycin 350 MG in SYRINGE 0 ML IV SCH (20:35)
[2022-11-04] MEDS: MIDODRINE HCL 10 MG TAB PO SCH ×3 (06:21→19:06)
[2022-11-04 07:13] LABS: Calcium 9.3 mg/dl (8.6-10.3); Creatinine Clr Calc Pharmacy 33.9 ml/min; Est GFR (African American) 28.4 ml/min; Est GFR (Non-African American) 24.5 ml/min; Potassium 3.3 mmol/L (3.5-5.1)
[2022-11-04 07:19] LABS: INR 1.9 (0.9-1.1); Prothrombin Time 20.1 Seconds (9.0-12.0)
[2022-11-04] MEDS ORDERED: POTASSIUM CHLORIDE CRTAB 20 MEQ TABCR PO STA (07:57)
[2022-11-04] MEDS: SUCRALFATE 1 GM/10 ML UDC PO SCH ×2 (10:46→20:46)
[2022-11-04] MEDS: CHOLECALCIFEROL 1,000 UNITS 25 MCG TAB PO SCH (10:47)
[2022-11-04] MEDS: PANTOprazole 40 MG TAB PO SCH ×2 (10:47→20:46)
[2022-11-04] MEDS: FUROSEMIDE 40 MG TAB PO SCH (10:47)
[2022-11-04] MEDS: rifAXIMin 550 MG TABLET PO SCH ×2 (10:47→20:45)
[2022-11-04] MEDS: SPIRONOLACTONE 100 MG TAB PO SCH (10:47)
[2022-11-04] MEDS: LACTULOSE SYRUP 20 GM/30 ML UDC PO SCH ×3 (10:48→20:40)
[2022-11-04] MEDS: METOPROLOL TARTRATE 25 MG TAB PO SCH ×2 (10:48→20:42)
--- NOTE | 2022-11-04 13:36 | Hospitalist Progress Note ---
Date of Service November 04, 2022 Assessment & Plan (1) Weakness: Plan: Weakness, fluid retention 2/2 cirrhosis. No evidence of acute CHF Previously on Lasix, this was discontinued with low blood pressures previously Patient pursuing transplant list placement as an outpatient Suspect weakness and fluid retention due to cirrhosis patient is being treated with 40 mg of Lasix and 100 mg of Aldactone. His blood pressure is Better today on midodrine 20 mg 3 times daily Continue lactulose, rifaximin. Continue lactulose for a goal is for 3-5 bowel movements per day Creatinine slightly better at 2.5 today Nephrology and GI on board Patient had paracentesis done 10/31. Fluid analysis results are not impressive for SBP MELD score 28 palliative care consulted Patient is aware that his cirrhosis is end-stage. He is willing to consider hospice if he does not get better. The patient told the nurse that he is leaning towards hospice now that he is more realistic after his recent meeting with palliative care on 11/02. Hepatic encephalopathy Patient was somnolent and confused earlier he was not taking lactulose Frequently enough asked the nurse to emphasize the importance of taking lactulose frequently to ensure 3-5 bowel movements He has been taking lactulose since Encephalopathy improved I was able to hold a conversation today Likely UTI Urinalysis is suggestive Urine culture repeated, growing gram-negative antonio awaiting sensitivities On IV daptomycin and IV ceftriaxone for broad-spectrum coverage We will narrow down based on sensitivities. COLLIN Creatinine trending down slowly continue Lasix and Aldactone in 2:5 ratio High risk of progressive worsening renal failure. He is not a candidate for dialysis in future. Rather he would want to switch to hospice if he were to decline. Ascites status post diagnostic and therapeutic paracentesis Fluid analysis is not suggestive of SBP Recent GI bleed Last hospitalization with GI bleed requiring PPI, octreotide. Stabilized and was able to be discharged Hemoglobin last 8.4 on discharge today 8.4 received a unit of blood transfusion during this hospital stay No evidence of acute bleeding on admission Trend daily Macrocytic anemia no acute bleeding. Stable, trended daily GAVE Continue PPI Hypothyroidism Free T4 normal History of paroxysmal SVT Metoprolol continued. EKG on admission is sinus tachycardia with PACs, no ST segment/T wave changes DVT prophylaxis: Pharmacal prophylaxis deferred due to history of recurrent severe GI bleeds. SCDs Diet: Low-salt CODE STATUS: DNR/DNI (2) Cirrhosis of liver: (3) CKD (chronic kidney disease), stage III: (4) GERD (gastroesophageal reflux disease): (5) Esophageal varices determined by endoscopy: (6) 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: (7) Pancytopenia: (8) Portal hypertensive gastropathy: (9) PSVT (paroxysmal supraventricular tachycardia): Admission and Anticipated Discharge Date Admission Date: October 28, 2022 Subjective patient is happy to know that he has lost about 7 kg in the last few days. Per nurse, the patient and his son are leaning towards a hospice plan. He is more realistic after his conversation with palliative care on 11/02. Review of Systems Review of Systems: All systems reviewed & are unremarkable except as noted in Subjective Physical Exam Physical Exam: general: Awake, conversant Heart: S1, S2/regular rate and rhythm, no murmur rubs or gallops Lungs: Clear to auscultation bilaterally. Normal effort Abdomen: Soft/nontender. abdomen Less distended today. Positive bowel sounds. Extremities: No clubbing/cyanosis. leg swelling has improved. 1+ bilateral pitting edema Behavior: Appropriate, cooperative Results & Data Results & Data Vital Signs (Past 12 Hours) Vital Signs Temp Pulse Resp BP Pulse Ox O2 Del Method 11/04/22 11:14 36.8 C 85 18 97/62 L 90 Room Air 11/04/22 08:00 36.8 C 97 H 16 90/51 L 97 Room Air 11/04/22 03:08 36.8 C 89 17 86/46 L 99 Room Air Laboratory Results Abnormal lab results 11/04/22 11/04/22 Range/Units 05:54 05:54 PT 20.1 H (9.0-12.0) Seconds INR 1.9 H (0.9-1.1) Potassium 3.3 L (3.5-5.1) mmol/L BUN 31 H (6-23) mg/dl Creatinine 2.58 H (0.6-1.4) mg/dl Glucose 118 H (70-99(Fasting)) mg/dl PG Care Time/CCT Total # of Minutes Spent Total Time Spent with Patient: Total time spent is greater than 50% in coordination of care (as documented) at patient's floor/unit and/or counseling patient: Coding Level of Care Code 06509 SUB INP/OBS CARE 2/35MIN Diagnoses Weakness R53.1 Cirrhosis of liver K70.30 Ascites presence: unspecified Hepatic cirrhosis type: alcoholic cirrhosis CKD (chronic kidney disease), stage III N18.3 GERD (gastroesophageal reflux disease) K21.9 Esophageal varices determined by endoscopy I85.00 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 K75.81; K74.60 Pancytopenia D61.818 Portal hypertensive gastropathy K76.6; K31.89 PSVT (paroxysmal supraventricular tachycardia) I47.1 (2) Cirrhosis of liver Ascites presence: unspecified Hepatic cirrhosis type: alcoholic cirrhosis Qualified Code(s): K70.30 - Alcoholic cirrhosis of liver without ascites
[2022-11-04] MEDS: traMADol HCL 50 MG TABLET PO PRN (19:20)
[2022-11-04] MEDS: DAPTOmycin 350 MG in SYRINGE 0 ML IV SCH (20:43)
[2022-11-04] MEDS: cefTRIAXone SODIUM 2,000 MG in DEXTROSE 5% 50 ML IV SCH (20:43)
[2022-11-04] MEDS: PARoxetine HCL 10 MG TAB PO SCH (20:46)
[2022-11-05] MEDS: MIDODRINE HCL 10 MG TAB PO SCH ×3 (06:25→17:23)
[2022-11-05 07:38] LABS: BUN Creatinine Ratio 12.3 (10-20); Calcium 9.2 mg/dl (8.6-10.3); Creatinine Clr Calc Pharmacy 34.8 ml/min; Est GFR (African American) 30.4 ml/min; Est GFR (Non-African American) 26.2 ml/min; Potassium 3.5 mmol/L (3.5-5.1)
[2022-11-05 07:54] LABS: INR 1.9 (0.9-1.1); Prothrombin Time 20.1 Seconds (9.0-12.0)
[2022-11-05] MEDS: FUROSEMIDE 40 MG TAB PO SCH (08:58)
[2022-11-05] MEDS: CHOLECALCIFEROL 1,000 UNITS 25 MCG TAB PO SCH (08:58)
[2022-11-05] MEDS: SPIRONOLACTONE 100 MG TAB PO SCH (08:59)
[2022-11-05] MEDS: METOPROLOL TARTRATE 25 MG TAB PO SCH ×2 (08:59→20:24)
[2022-11-05] MEDS: LACTULOSE SYRUP 20 GM/30 ML UDC PO SCH ×3 (08:59→20:27)
[2022-11-05] MEDS: SUCRALFATE 1 GM/10 ML UDC PO SCH ×2 (09:00→20:32)
[2022-11-05 09:04] LABS: KPC Carbapenemase NOT DETECTED (NotDetected); NDM Carbapenemase NOT DETECTED (NotDetected)
[2022-11-05] MEDS: rifAXIMin 550 MG TABLET PO SCH ×2 (10:10→20:30)
[2022-11-05] MEDS: PANTOprazole 40 MG TAB PO SCH ×2 (10:10→20:30)
[2022-11-05] MEDS ORDERED: FUROSEMIDE 20 MG TAB PO SCH (11:28)
--- NOTE | 2022-11-05 11:51 | Infectious Disease Progress Nt ---
Date of Service November 05, 2022 Assessment & Plan (1) UTI (urinary tract infection): (2) Edema: (3) Ascites: (4) Epigastric pain: Plan 67 yo male with pmh of CKD, decompensated HEAT[place] cirrhosis w GAVE bleeding, portal hypertensive gastropathy, hepatic encephalopathy, spinal stenosis, h/o VRE bacteremia and VRE UTi (07/2022) s/p14 d of Daptomycin. Since then he has positive urine cultures for E feaceium ( S Vanc, Nitro) and Klebsiella Oxytoca (R Cefaz, I amp/sul). He was recently admitted for a GI bleed. He presents with shortness of breath and BL LE edema. He admits to abdomen distention and discomfort. He denies fever chill, n/v, cough. On admission, he is HDS. CTAB shows moderate body wall edema with moderate ascites , gastric wall thickening, bl nephrolithiasis. Labs noted for a cr 3.( baseline 2.5). Tbili 3.8 ( up to 7.1 today). Admission UA with 10-30 wbc. UC with mixed jairon. He underwent U/S guided paracentesis with no evidence of SBP. He has not been on abx. He complained of dysuria on 11/01. Repeat UA shows 10-30 WBC, 5-10 RBc , + nitrite. Repeat UC obtained and pending. He has not been started on antibiotics. ID consulted for antibiotics recommendation for uti. Micro UC 10/28 More than three types of organisms present BC 10/28 NGTD UC 11/02 Citrobacter (S Cipro, Bactrim, Nitro, Tobra, Meropenem) Abx none # UTI # History of + UC with Klebsiella, VRE, E faecium, gamma strep # H/O VRE bacteremia # [place] cirrhosis with ascites He complains of worsening dysuria and suprapubic pain with pyuria on UA c/w UTI DC daptomycin, ceftriaxone Recommend: DC daptomycin, Ceftriaxone Start Ciprofloxacin 500mg po BID x 7 days (based on Crcl 30-50) through 11/11/22 ECG QTc 480 Please call with any questions, Will s/o. I spoke with Dr. Magalis Sanchez MD Infectious Disease Call [phone] with questions Admission and Anticipated Discharge Date Admission Date: October 28, 2022 Subjective This patient recommendation is based on a telemedicine consult request which was completed asynchronously through chart review and information provided by the primary physician. The patient was not seen or examined today. The evaluation is consultative in nature and all patient care and treatment decisions can either be accepted or rejected by the patient's primary hospital-based treating physician using their own independent medical judgment for their patient. Time Spent Reviewing Chart: 21 - 30 minutes Results & Data Vital Signs (Past 12 Hours) Vital Signs Temp Pulse Pulse Resp BP Pulse Ox O2 Del Method 11/05/22 11:14 36.7 C 102 H 20 99/64 L 97 Room Air 11/05/22 08:00 Room Air 11/05/22 07:01 36.7 C 82 20 98/61 L 95 Room Air 11/05/22 07:48 94 H 11/05/22 04:00 36.8 C 83 16 95/63 L 96 Room Air 11/05/22 00:00 82 11/05/22 00:30 36.7 C 90 16 99/61 L 98 Room Air Laboratory Results Laboratory Results - last 48 hr 11/04/22 11/04/22 11/05/22 05:54 05:54 06:55 PT 20.1 H INR 1.9 H Sodium 139 140 Potassium 3.3 L 3.5 Chloride 106 104 Carbon Dioxide 29 31 Anion Gap 4 5 BUN 31 H 30 H Creatinine 2.58 H 2.44 H Est Cr Clr Drug Dosing 33.9 34.8 Est GFR ( Amer) 28.4 30.4 Est GFR (Non-Af Amer) 24.5 26.2 BUN/Creatinine Ratio 12.0 12.3 Glucose 118 H 112 H Calcium 9.3 9.2 IMP Carbapenemase (GENIA) KPC Carbapenemase (GENIA) NDM Carbapenemase (GENIA) OXA Carbapenemase (GENIA) VIM Carbapenemase (GENIA) 11/05/22 11/05/22 06:55 07:49 PT 20.1 H INR 1.9 H Sodium Potassium Chloride Carbon Dioxide Anion Gap BUN Creatinine Est Cr Clr Drug Dosing Est GFR ( Amer) Est GFR (Non-Af Amer) BUN/Creatinine Ratio Glucose Calcium IMP Carbapenemase (GENIA) NOT DETECTED KPC Carbapenemase (GENIA) NOT DETECTED NDM Carbapenemase (GENIA) NOT DETECTED OXA Carbapenemase (GENIA) NOT DETECTED VIM Carbapenemase (GENIA) NOT DETECTED Organism 1 Citrobacter youngae [place] Count >100,000 CFU/ml Sens Sensitivities to Follow 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 Phoned to ELEAZAR Guerrier on 11/05/22 at 0909 by Luda Dumont. Results were verbalized back to Luda Dumont. Results were also called to [facility] WOO KATZ on 11/05/22 by Luda poon RX M.I.C. --- --------- Cefepime I 4 Ceftriaxone R >2 Ciprofloxacin S <=0.25 Ertapenem I 1 Gentamicin S <=4 Levofloxacin S <=0.5 Meropenem S <=1 Nitrofurantoin S <=32 Tobramycin S <=4 Trimeth/Sulfa S <=2/38 Pip/Tazo R >64 (2) Edema Edema type: unspecified Qualified Code(s): R60.9 - Edema, unspecified (3) Ascites Ascites type: other type Qualified Code(s): R18.8 - Other ascites
--- NOTE | 2022-11-05 12:25 | Discharge Summary ---
Discharge Summary Date of Service November 05, 2022 Notes For Next Care Provider Check CBC, BMP in 1 week Considering Hospice Medication Changes From Visit Lasix 20mg po daily rather than prn spironolactone 50mg po daily Cipro 500mg po bid x 7 days Increased midodrine to 20mg po tid Is NOT taking fludrocortisone as previously prescribed Admission HPI Per Admitting Provider Sebastian Quiñonez is a 67-year-old male with past medical history of liver cirrhosis requiring multiple hospital admissions,, GAVE, recurrent GI bleeds, CKD, who presented to the ER with weakness, shortness of breath, lower extremity swelling after [facility] but after 2 to 3 days of returning home continued to have increasing leg swelling and fatigue and now has difficulty ambulating due to shortness of breath. No chest pain. Had a fall today due to weakness and came to the ER for reevaluation. He was previously on Lasix which has been discontinued last month Returned from [facility] 2 days ago MIld stomach discomfort, no pain. Denies GI bleeding Increasing weakness and fatigue. LEg cramps and stomach cramps last two days. NO chest pain or chest pressure. Easy fatigue and dyspnea worsening x2 days Lets ++ edema last few days Stomach cramps but no pain Was taken off lasix and spironolactone due to renal dysfunction last month per pt Has not had a paracentesis in the last 3 months. Feels the fluid in his belly is 'starting to get tighter'. LEgs are worse Took his morning medications Medical History: Reviewed Medications: Reviewed Surgical History: Reviewed Family history: Reviewed Allergies: Reviewed Social History: Reviewed Code Status: DNR/DNI Principal Dx & Hospital Course #1 = Principal Diagnosis (1) Weakness: Weakness, fluid retention 2/2 cirrhosis. 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 Continue lactulose for a goal is for 3-5 bowel movements per day Creatinine stable at 2.5 today Nephrology and GI on board Patient had paracentesis done 10/31. Fluid analysis results are not impressive for SBP MELD score 28 palliative care consulted Patient is aware that his cirrhosis is end-stage. He is willing to consider hospice if he does not get better. The patient told the nurse that he is leaning towards hospice now that he is more realistic after his recent meeting with palliative care on 11/02. 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 He is not a candidate for dialysis in future. Rather he would want to switch to hospice if he were to decline. Chronic GI bleed-from GAVE Last hospitalization with GI bleed requiring PPI, octreotide. Stabilized and was able to be discharged Hemoglobin last 8.4 on discharge remains stable now s/p 1 unit PRNCs here at 8.4 No evidence of acute bleeding while here check CBC in 1 week Macrocytic anemia no acute bleeding. Stable, trended daily GAVE Continue PPI Hypothyroidism TSH high at 14 and trending upward over the last 5 months -start LT4 25 mcg po daily and recheck TSH in 4-6 weeks with PCP History of paroxysmal SVT Metoprolol continued. EKG on admission is sinus tachycardia with PACs, no ST segment/T wave changes DVT prophylaxis: chemical prophylaxis deferred due to history of recurrent severe GI bleeds. SCDs Diet: Low-salt Dispo-stable for dc to home CODE STATUS: DNR/DNI (2) Cirrhosis of liver: (3) CKD (chronic kidney disease), stage III: (4) GERD (gastroesophageal reflux disease): (5) Esophageal varices determined by endoscopy: (6) 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: (7) Pancytopenia: (8) Portal hypertensive gastropathy: (9) PSVT (paroxysmal supraventricular tachycardia): Discharge Exam Constitutional WD/WN, vitals as above Respiratory normal respiratory effort, lungs clear to auscultation Cardiovascular Rate/Rhythm: regular rate and regular rhythm Extremities: + edema (2+ edema legs bilat) Gastrointestinal (Abdomen) Inspection/Auscultation: normal bowel sounds; abdomen not distended Percussion/Palpation: + abdomen tender (chronic, mostly right sided) and abdomen soft; no guarding Neurologic PERRL, EOMI, accommodation nl, no face palsy, no dysarthria Psychiatric A+Ox3, euthymic affect Updated Medication List Medication Instructions Recorded Confirmed Type ondansetron HCl 4 mg tablet 4 mg PO Q8H PRN Nausea And 08/08/22 10/28/22 Rx Vomiting #30 tabs lactulose 10 gram/15 mL oral 20 g (30 mL) PO DAILY #946 mL 08/10/22 10/28/22 Rx solution Walker #1 ea 09/21/22 Rx paroxetine HCl 10 mg tablet 10 mg PO HS 09/23/22 10/28/22 History pantoprazole 40 mg tablet,delayed 40 mg PO BID #60 tabs 09/27/22 10/28/22 Rx release rifaximin 550 mg tablet (Xifaxan) 550 mg PO BID #60 tabs 09/27/22 10/28/22 Rx metoprolol tartrate 25 mg tablet 12.5 mg PO BID #0 tabs 10/03/22 10/28/22 Rx acetaminophen 325 mg tablet 650 mg PO QID PRN Fever Or Pain 10/18/22 10/28/22 History (Tylenol) cholecalciferol (vitamin D3) 50 2,000 unit PO QAM 10/28/22 10/28/22 History mcg (2,000 unit) capsule (Vitamin D3) sucralfate 100 mg/mL oral 10 ml PO BID 10/28/22 10/28/22 History suspension fludrocortisone 0.1 mg tablet 0.1 mg PO BID #180 tabs 10/30/22 Rx ciprofloxacin HCl 500 mg tablet 500 mg PO BID #13 tabs 11/05/22 Rx furosemide 20 mg tablet 20 mg PO DAILY #30 tabs 11/05/22 Rx levothyroxine 25 mcg tablet 25 mcg PO DAILYBB #30 tabs 11/05/22 Rx (Synthroid) midodrine 10 mg tablet 20 mg PO TID #180 tabs 11/05/22 Rx spironolactone 25 mg tablet 50 mg PO QAM #30 tabs 11/05/22 Rx Hospital Stay Data Consultations 10/28/22 16:39 ED Decision to Admit Stat 10/30/22 15:08 Consult Nephrology Routine 10/31/22 07:51 Consult Gastroenterology Routine 11/02/22 12:12 Consult Infectious Diseases Routine 11/02/22 12:13 Consult Palliative Care Routine Diagnostic Imagining Performed 10/28/22 15:21 CT abd pelvis wo con Stat 10/31/22 08:09 IR paracentesis abd w/img US Routine 11/01/22 11:57 CT abd pelvis wo con Routine Pending Results Patient Have Any Pending Studies at Discharge: No Discharge Instructions Given to Patient (Per Discharging Provider) You were admitted with fluid overload and a UTI. Please take the lasix 20mg daily and the spironolactone which was restarted (at lower than a previous dose) on a daily basis to keep the fluid off. You should have blood work checked in 1 week for your kidney function, potassium, and blood count levels. Please complete a 7 day course of Cipro as an antibiotic for your UTI. Your thyroid function is also quite low and you were started on a thyroid replacement medication called levothyroxine. Your PCP can check your thyroid function in 4-6 weeks. You were seen by Palliative Medicine while here to discuss the possibility of enrolling in hospice in the future as your cirrhosis will continue to worsen. If you decide at any point that you are tired of coming back to the hospital frequently for concerns related to your cirrhosis or for any reason, please contact your doctor to help get you [facility]. It was a pleasure taking care of you, Alexus Blancas M.D. Total Time Total Time Spent Total Time Spent (In Minutes): 40 min Total Time Includes: Examination of the Patient, Discharge Planning, Medication Reconciliation and Communication With Other Providers (ID) Coding Level of Care Code 68283 INP/OBS DISCH >30 MIN Diagnoses Weakness R53.1 Cirrhosis of liver K70.30 Ascites presence: unspecified Hepatic cirrhosis type: alcoholic cirrhosis CKD (chronic kidney disease), stage III N18.3 GERD (gastroesophageal reflux disease) K21.9 Esophageal varices determined by endoscopy I85.00 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 K75.81; K74.60 Pancytopenia D61.818 Portal hypertensive gastropathy K76.6; K31.89 PSVT (paroxysmal supraventricular tachycardia) I47.1
[2022-11-05] MEDS: CIPROFLOXACIN 500 MG TAB PO SCH ×2 (13:16→20:32)
--- NOTE | 2022-11-05 14:21 | Hospitalist Progress Note ---
Date of Service November 05, 2022 Assessment & Plan (1) Weakness: Plan: Weakness, fluid retention 2/2 cirrhosis. No evidence of acute CHF Previously on Lasix, this was discontinued with low blood pressures previously Patient pursuing transplant list placement as an outpatient but was recently told he's "off the list"--> need to confirm this with his GI team Suspect weakness and fluid retention due to cirrhosis patient is being treated with 40 mg of Lasix and 100 mg of Aldactone-also had paracentesis and volume status improved, otolaryngology physician remained stable--> dc to home on lasix 20mg po daily and spironolactone 50mg po daily Check BMP in 1 week if desired but if on hospice, is not necessary His blood pressure is better on increased dose of midodrine 20 mg 3 times daily Continue lactulose, rifaximin. Continue lactulose for a goal is for 3-5 bowel movements per day Creatinine stable at 2.5 today Nephrology and GI on board Patient had paracentesis done 10/31. Fluid analysis results are not impressive for SBP MELD score 28 Patient is aware that his cirrhosis is end-stage. 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 He is not a candidate for dialysis in future. Rather he would want to switch to hospice if he were to decline. Chronic GI bleed-from [facility] Last hospitalization with GI bleed requiring PPI, octreotide. Stabilized and was able to be discharged Hemoglobin last 8.4 on discharge remains stable now s/p 1 unit PRBCs here at 8.4 No evidence of acute bleeding while here check CBC in 1 week if desired Macrocytic anemia no acute bleeding. Stable, trended daily GAVE Continue PPI Hypothyroidism TSH high at 14 and trending upward over the last 5 months -start LT4 25 mcg po daily and recheck TSH in 4-6 weeks with PCP History of paroxysmal SVT Metoprolol continued. EKG on admission is sinus tachycardia with PACs, no ST segment/T wave changes DVT prophylaxis: chemical prophylaxis deferred due to history of recurrent s evere GI bleeds. SCDs Diet: Low-salt Dispo-stable for dc to home but discharge cancelled while awaiting for Pole Sander Operator to arrange home hospice-dc tomorrow CODE STATUS: DNR/DNI Discussed care with sister at bedside (2) Cirrhosis of liver: (3) CKD (chronic kidney disease), stage III: (4) GERD (gastroesophageal reflux disease): (5) Esophageal varices determined by endoscopy: (6) 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: (7) Pancytopenia: (8) Portal hypertensive gastropathy: (9) PSVT (paroxysmal supraventricular tachycardia): Admission and Anticipated Discharge Date Admission Date: October 28, 2022 Subjective Pt feeling better. Denies SOB, no pain. Was ready for discharge but discharge cancelled due to family preferences to have home hospice arranged prior to discharge home. Physical Exam Constitutional: WD/WN, vitals as above Respiratory: normal respiratory effort, lungs clear to auscultation Cardiovascular: Rate/Rhythm: regular rate and regular rhythm Extremities: + edema (2+ edema legs bilat) Gastrointestinal (Abdomen): Inspection/Auscultation: normal bowel sounds; abdomen not distended Percussion/Palpation: + abdomen tender (chronic, mostly right sided) and abdomen soft; no guarding Neurologic: PERRL, EOMI, accommodation nl, no face palsy, no dysarthria Psychiatric: A+Ox3, euthymic affect Results & Data Results & Data Vital Signs (Past 12 Hours) Vital Signs Temp Pulse Pulse Resp BP BP Pulse Ox 11/05/22 13:35 36.7 C 102 H 20 99/64 L 88/51 L 97 11/05/22 11:14 36.7 C 102 H 20 99/64 L 97 11/05/22 08:00 11/05/22 07:01 36.7 C 82 20 98/61 L 95 11/05/22 07:48 94 H 11/05/22 04:00 36.8 C 83 16 95/63 L 96 O2 Del Method 11/05/22 13:35 11/05/22 11:14 Room Air 11/05/22 08:00 Room Air 11/05/22 07:01 Room Air 11/05/22 07:48 11/05/22 04:00 Room Air Laboratory Results BMP reviewed PG Care Time/CCT Total # of Minutes Spent Total Time Spent with Patient: Total time spent is greater than 50% in coordination of care (as documented) at patient's floor/unit and/or counseling patient: Coding Level of Care Code 96679 SUB INP/OBS CARE 3/50MIN Diagnoses Weakness R53.1 Cirrhosis of liver K70.30 Ascites presence: unspecified Hepatic cirrhosis type: alcoholic cirrhosis CKD (chronic kidney disease), stage III N18.3 GERD (gastroesophageal reflux disease) K21.9 Esophageal varices determined by endoscopy I85.00 Liver cirrhosis secondary to SERRANO K75.81; K74.60 Pancytopenia D61.818 Portal hypertensive gastropathy K76.6; K31.89 PSVT (paroxysmal supraventricular tachycardia) I47.1 (2) Cirrhosis of liver Ascites presence: unspecified Hepatic cirrhosis type: alcoholic cirrhosis Qualified Code(s): K70.30 - Alcoholic cirrhosis of liver without ascites
--- NOTE | 2022-11-05 14:51 | Palliative Care Progress Note ---
Date of Service November 05, 2022 Assessment & Plan (1) Palliative care encounter: Plan: Mr. Quiñonez had a discussion with Dr. Blancas earlier today understands that his prognosis is poor. The thing that is most important to him at this time is to be at home, spend time with his family and dog and go out in car for hunting season. He spoke about his bernie and long time connection to the [employer]. He is not worried about his dying time and tells me that his will be waiting for him at the door when he goes to [facility]. He has been getting care from his son and sister at home. He feels comfortable with being at home until his dying time. We talked about hospice and care provided by hospice team. He does have hospital bed and other equipment at home. I spoke with his son, Renny, on the phone about hospice care and benefits provided. He had previously asked case management about 17/09 care but tells me that he feels that he will be able to do what he needs to do to care for his father at home. He asked about prognosis which is likely weeks to a month or two. I also spoke with Mr. Quiñonez's sister at bedside along with Dr. Blancas. We talked about hospice benefit and plans for discharge. Case management is arranging hospice for home tomorrow. Admission and Anticipated Discharge Date Admission Date: October 28, 2022 Subjective Complains of feeling weak. No complaints of pain or dyspnea. Review of Systems Review of Systems: ESAS Pain 0/3 Dyspnea 0/3 Nausea 0/3 Drowsiness 0/3 Physical Exam Constitutional: no acute distress Eyes: sclerae not anicteric Respiratory: normal respiratory effort; no labored breathing Cardiovascular: Rate/Rhythm: regular rate and regular rhythm Skin: + jaundice Neurologic: Speech / Cognition: normal cognition Results & Data Vital Signs (Past 12 Hours) Vital Signs Temp Pulse Pulse Resp BP BP Pulse Ox 11/05/22 13:35 98.1 F 102 H 20 99/64 L 88/51 L 97 11/05/22 11:14 98.1 F 102 H 20 99/64 L 97 11/05/22 08:00 11/05/22 07:01 98.1 F 82 20 98/61 L 95 11/05/22 07:48 94 H 11/05/22 04:00 98.2 F 83 16 95/63 L 96 O2 Del Method 11/05/22 13:35 11/05/22 11:14 Room Air 11/05/22 08:00 Room Air 11/05/22 07:01 Room Air 11/05/22 07:48 11/05/22 04:00 Room Air PG Care Time/CCT Total # of Minutes Spent Total Time Spent: 58 Total Time Spent with Patient: Total time spent is greater than 50% in coordination of care (as documented) at patient's floor/unit and/or counseling patient: Hospice, symptom management, prognosis, goals of care, multiple family discussions, patient education and support, coordination of care Coding Level of Care Code 97019 SUB INP/OBS CARE 3/50MIN Diagnoses Palliative care encounter Z51.5
[2022-11-05] MEDS: PARoxetine HCL 10 MG TAB PO SCH (20:31)
[2022-11-06] MEDS: MIDODRINE HCL 10 MG TAB PO SCH ×2 (06:13→12:10)
[2022-11-06] MEDS ORDERED: LEVOTHYROXINE SODIUM 25 MCG TABLET PO SCH (06:30)
[2022-11-06] MEDS: SUCRALFATE 1 GM/10 ML UDC PO SCH (08:25)
[2022-11-06] MEDS: CIPROFLOXACIN 500 MG TAB PO SCH (08:26)
[2022-11-06] MEDS: CHOLECALCIFEROL 1,000 UNITS 25 MCG TAB PO SCH (08:26)
[2022-11-06] MEDS: LACTULOSE SYRUP 20 GM/30 ML UDC PO SCH (08:26)
[2022-11-06] MEDS: rifAXIMin 550 MG TABLET PO SCH (08:26)
[2022-11-06] MEDS: PANTOprazole 40 MG TAB PO SCH (08:27)
[2022-11-06] MEDS: METOPROLOL TARTRATE 25 MG TAB PO SCH (08:28)
[2022-11-06] MEDS ORDERED: SPIRONOLACTONE 25 MG TAB PO SCH (09:00)
--- NOTE | 2022-11-06 12:40 | Discharge Summary ---
Discharge Summary Date of Service November 06, 2022 Notes For Next Care Provider Enrolling in hospice Medication Changes From Visit Added spironolactone 50mg po qday Made lasix 20mg daily instead of every other day increased midodrine to 20mg po tid stopped fludrocortisone (wasn't taking anyway) Added levothyroxine 25 mcg po daily Cipro 500mg po bid 6 days Admission HPI Per Admitting Provider Sebastian uQiñonez is a 67-year-old male with past medical history of liver cirrhosis requiring multiple hospital admissions,, GAVE, recurrent GI bleeds, CKD, who pr esented to the ER with weakness, shortness of breath, lower extremity swelling after [facility]. [facility] but after 2 to 3 days of returning home continued to have increasing leg swelling and fatigue and now has difficulty ambulating due to shortness of breath. No chest pain. Had a fall today due to weakness and came to the ER for reevaluation. He was previo usly on Lasix which has been discontinued last month Returned from [facility] 2 days ago MIld stomach discomfort, no pain. Denies GI bleeding Increasing weakness and fatigue. LEg cramps and stomach cramps last two days. NO chest pain or chest pressure. Easy fatigue and dyspnea worsening x2 days Lets ++ edema last few days Stomach cramps but no pain Was taken off lasix and spironolactone due to renal dysfunction last month per pt Has not had a paracentesis in the last 3 months. Feels the fluid in his belly is 'starting to get tighter'. LEgs are worse Took his morning medications Medical History: Reviewed Medications: Reviewed Surgical History: Reviewed Family history: Reviewed Allergies: Reviewed Social History: Reviewed Code Status: DNR/DNI Principal Dx & Hospital Course #1 = Principal Diagnosis (1) Weakness: Weakness, fluid retention 2/2 cirrhosis. No evidence of acute CHF Previously on Lasix, this was discontinued with low blood pressures previously Patient pursuing transplant list placement as an outpatient but was recently told he's "off the list"--> need to confirm this with his GI team Suspect weakness and fluid retention due to cirrhosis patient is being treated with 40 mg of Lasix and 100 mg of Aldactone-also had paracentesis and volume status improved, tree surgeon helper remained stable--> dc to home on lasix 20mg po daily and spironolactone 50mg po daily Check BMP and CBC in 1 week if desired but if on hospice, is not necessary His blood pressure is better on increased dose of midodrine 20 mg 3 times daily Continue lactulose, rifaximin. Continue lactulose for a goal is for 3-5 bowel movements per day Creatinine stable at 2.5 Nephrology and GI on board Patient had paracentesis done 10/31. Fluid analysis results are not impressive for SBP MELD score 28 Patient is aware that his cirrhosis is end-stage. 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 He is not a candidate for dialysis in future. Rather he would want to switch to hospice if he were to decline. Chronic GI bleed-from [facility] Last hospitalization with GI bleed requiring PPI, octreotide. Stabilized and was able to be discharged Hemoglobin last 8.4 on discharge remains stable now s/p 1 unit PRBCs here at 8.4 No evidence of acute bleeding while here check CBC in 1 week if desired Macrocytic anemia no acute bleeding. Stable, trended daily GAVE Continue PPI Hypothyroidism TSH high at 14 and trending upward over the last 5 months -start LT4 25 mcg po daily and recheck TSH in 4-6 weeks with PCP if desired History of paroxysmal SVT Metoprolol continued. EKG on admission is sinus tachycardia with PACs, no ST segment/T wave changes DVT prophylaxis: chemical prophylaxis deferred due to history of recurrent severe GI bleeds. SCDs Diet: Low-salt Dispo-stable for dc to home with home hospice-discused care with son and bedside CODE STATUS: DNR/DNI (2) Cirrhosis of liver: (3) CKD (chronic kidney disease), stage III: (4) GERD (gastroesophageal reflux disease): (5) Esophageal varices determined by endoscopy: (6) Liver cirrhosis secondary to SERRANO: (7) Pancytopenia: (8) Portal hypertensive gastropathy: (9) PSVT (paroxysmal supraventricular tachycardia): Discharge Exam Constitutional WD/WN, vitals as above Respiratory normal respiratory effort, lungs clear to auscultation Cardiovascular Rate/Rhythm: regular rate and regular rhythm Extremities: + edema (2+ edema legs bilat) Gastrointestinal (Abdomen) Inspection/Auscultation: normal bowel sounds; abdomen not distended Neurologic PERRL, EOMI, accommodation nl, no face palsy, no dysarthria Psychiatric A+Ox3, euthymic affect Updated Medication List Medication Instructions Recorded Confirmed Type ondansetron HCl 4 mg tablet 4 mg PO Q8H PRN Nausea And 08/08/22 10/28/22 Rx Vomiting #30 tabs lactulose 10 gram/15 mL oral 20 g (30 mL) PO DAILY #946 mL 08/10/22 10/28/22 Rx solution Walker #1 ea 09/21/22 Rx paroxetine HCl 10 mg tablet 10 mg PO HS 09/23/22 10/28/22 History pantoprazole 40 mg tablet,delayed 40 mg PO BID #60 tabs 09/27/22 10/28/22 Rx release rifaximin 550 mg tablet (Xifaxan) 550 mg PO BID #60 tabs 09/27/22 10/28/22 Rx metoprolol tartrate 25 mg tablet 12.5 mg PO BID #0 tabs 10/03/22 10/28/22 Rx acetaminophen 325 mg tablet 650 mg PO QID PRN Fever Or Pain 10/18/22 10/28/22 History (Tylenol) cholecalciferol (vitamin D3) 50 2,000 unit PO QAM 10/28/22 10/28/22 History mcg (2,000 unit) capsule (Vitamin D3) sucralfate 100 mg/mL oral 10 ml PO BID 10/28/22 10/28/22 History suspension ciprofloxacin HCl 500 mg tablet 500 mg PO BID #13 tabs 11/05/22 Rx furosemide 20 mg tablet 20 mg PO DAILY #30 tabs 11/05/22 Rx levothyroxine 25 mcg tablet 25 mcg PO DAILYBB #30 tabs 11/05/22 Rx (Synthroid) midodrine 10 mg tablet 20 mg PO TID #180 tabs 11/05/22 Rx spironolactone 25 mg tablet 50 mg PO QAM #30 tabs 11/05/22 Rx Hospital Stay Data Consultations 10/28/22 16:39 ED Decision to Admit Stat 10/30/22 15:08 Consult Nephrology Routine 10/31/22 07:51 Consult Gastroenterology Routine 11/02/22 12:12 Consult Infectious Diseases Routine 11/02/22 12:13 Consult Palliative Care Routine Diagnostic Imagining Performed 10/28/22 15:21 CT abd pelvis wo con Stat 10/31/22 08:09 IR paracentesis abd w/img US Routine 11/01/22 11:57 CT abd pelvis wo con Routine Pending Results Patient Have Any Pending Studies at Discharge: No Discharge Instructions Given to Patient (Per Discharging Provider) You were admitted with fluid overload and a UTI. Please take the lasix 20mg daily and the spironolactone which was restarted (at lower than a previous dose) on a daily basis to keep the fluid off. You should have blood work checked in 1 week for your kidney function, potassium, and blood count levels. Please complete a 7 day course of Cipro as an antibiotic for your UTI. Your thyroid function is also quite low and you were started on a thyroid replacement medication called levothyroxine. Your PCP can check your thyroid function in 4-6 weeks if desired. You were seen by Palliative Medicine while here to discuss the possibility of enrolling in hospice as your cirrhosis will continue to worsen. You and your family have decided to pursue enrollment in hospice to focus on quality of life for your remaining time. It was a pleasure taking care of you! Alexus Blancas M.D. Total Time Total Time Spent Total Time Spent (In Minutes): 35 min Coding Level of Care Code 66676 INP/OBS DISCH >30 MIN Diagnoses Weakness R53.1 Cirrhosis of liver K70.30 Ascites presence: unspecified Hepatic cirrhosis type: alcoholic cirrhosis CKD (chronic kidney disease), stage III N18.3 GERD (gastroesophageal reflux disease) K21.9 Esophageal varices determined by endoscopy I85.00 Liver cirrhosis secondary to SERRANO K75.81; K74.60 Pancytopenia D61.818 Portal hypertensive gastropathy K76.6; K31.89 PSVT (paroxysmal supraventricular tachycardia) I47.1
== END 2022-11-06 13:36 | disposition hospice, home (50) | DRG 433 ==
LOC: ED 13:32 → 2S 17:38 → SUATTDRO 17:38 → 2S 18:31 → 3N 11-05 21:00